=== PATIENT | male | born 1960 | race Caucasian/White ===

== ENCOUNTER → 2017-04-25 16:38 | Outpatient (CLI) | payer OTHER, SELFPAY ==
--- NOTE | 2017-04-25 16:47 | CT_ITS ---
STUDY: LOW DOSE CT LUNG CANCER SCREENING REASON FOR EXAM: Male, 56 years old. 40 year history of tobacco abuse. RADIATION DOSAGE (If Supplied By Facility): CTDIvol = ( 3.02 ) mGy, DLP = ( 115.88 ) mGycm TECHNIQUE: No contrast was administered. Low dose technique was utilized (average mAS-38 and kVp 120). 1.25 mm axial source images with a slice interval of 1.25-mm were reconstructed in lung windows. 2.5 mm axial source images with a slice interval of 2.5-mm were reconstructed in lung windows. 5.0 mm axial source images with a slice interval of 5.0-mm were reconstructed in soft tissue windows. Nodule measured using lung windows on PACS and/or independent workstation with automated measurement of minimum and maximum diameter. Nodule measurement reported as average diameter rounded to the nearest whole number. Growth is defined as an increase ins size of greater than 1.5 mm. COMPARISON: None. NODULES: Nodule #: 1 Density: Solid Lung location: Right upper lobe: 1 cm from pleura Location in series: Series Number: 2 Image: 85 Size - D1 x D2 mm: 3 x 3 mm: 3 mm average diameter Margin: Smooth Shape: Round Calcification: No Fat: No Temporal comparison: None Total lung nodules (excluding granulomas): 1 Emphysema: There is minimal emphysematous changes of the lungs. Endobronchial lesion: None Aorta: There is minimal atherosclerotic changes of the thoracic aorta without aneurysm. Coronary arteries: There are coronary artery calcifications. Heart: Normal in size. Pulmonary artery: Normal Mediastinal nodes: Other chest and abdominal findings: There are degenerative changes of the thoracic spine. CT/Low Dose CT Lung Screening IMPRESSION: Lung-RADS category 2 - Continue annual screening with LDCT in 12 months. IMPORTANT NOTES FOR USE: ACR Lung-RADS Version 1.0 Assessment Categories Release Date: June 21, 2013 Category: Coded 0-4 bases on nodule(s) with highest degree of suspicion. Negative screen is defined as categories 1 and 2; a positive screen is defined as categories 3 and 4. Category 3 and 4A nodules that are unchanged on interval CT should be coded as category 2, and individuals returned to screening in 12 months. Category 4X: Category 3 or 4 nodules with additional imaging findings that increase the suspicion of lung cancer, such as spiculation, GGN that doubles in size in 1 year, enlarged lymph notes, etc. Category Modifiers: S (significant finding unrelated to lung cancer) and C (prior history of treated lung cancer) may be added to the 0-4 Lung-RADS Electronically Signed: Mikael Patino DO at 17:18 EST Tel [phone], Service support ,
== END ==
PROVIDERS: Family Provider Family Medicine; PCP Family Medicine; Visit Provider Family Medicine
DX: Z12.2 Encounter for screening for malignant neoplasm of respiratory organs (principal); Z72.0 Tobacco use; Z87.891 Personal history of nicotine dependence
CPT/HCPCS: G0297

== ENCOUNTER → 2018-05-08 16:13 | Outpatient (CLI) | payer OTHER, SELFPAY ==
--- NOTE | 2018-05-08 16:16 | CT_ITS ---
STUDY: CT CHEST WITHOUT CONTRAST- LOW DOSE SCREENING PROTOCOL REASON FOR EXAM: Male, 57 years old. Current smoker. 40 pack per year history. No current symptoms of lung cancer or pulmonary infection. Shared decision-making with referring PCP documented in patient's record. RADIATION DOSAGE (If Supplied By Facility): CTDIvol = ( 3.02 ) mGy, DLP = ( 124.93 ) mGycm TECHNIQUE: Low dose screening CT examination performed from the base of the neck to the upper abdomen. Sagittal and coronal reformatted images performed. Sagittal and coronal MIP images provided. The measurements provided are average, rounded measurements per ACR guidelines. Individualized dose optimization techniques were used for this CT. COMPARISON: 04/25/2017 FINDINGS: Minimal emphysematous changes of the upper lung mims. 3 mm noncalcified nodule of the right upper lobe with smooth margins stable since the prior study. No new pulmonary nodule detected. No localized groundglass opacity. Partially calcified pleural thickening along the posterior edge of the right major fissure is stable since the prior study, most typically postinflammatory. There is no demonstrated pleural abnormality. Normal heart and pericardium. There are calcifications of the coronary arteries. Normal mediastinum. Normal hilar regions. Normal unenhanced pulmonary arteries. There is mild atherosclerosis of the thoracic aorta. There are multi-level degenerative changes of the thoracic spine. Similar mild wedge compression of T4. Anterolisthesis of C7-T1 is partially visualized, stable There is no demonstrated abnormality of the visualized upper abdomen. CT/Low Dose CT Lung Screening IMPRESSION: 1. No significant indeterminate incidental findings requiring additional imaging. 2. Incidental findings include minimal emphysematous changes, thoracic spondylosis, atherosclerosis including coronary arteries, stable T4 compression deformity (chronic), probable degenerative anterolisthesis of T7-T1. ASSESSMENT CATEGORY: LungRADS 2 - Benign Appearance or Behavior. Stable 3 mm noncalcified nodule in the right upper lobe. Continue annual screening with LDCT in 12 months, per established ACR guidelines. IMPORTANT NOTES FOR USE: ACR Lung-RADS Version 1.0 Assessment Categories Release Date: June 21, 2013 Category: Coded 0-4 bases on nodule(s) with highest degree of suspicion. Negative screen is defined as categories 1 and 2; a positive screen is defined as categories 3 and 4. Category 3 and 4A nodules that are unchanged on interval CT should be coded as category 2, and individuals returned to screening in 12 months. Category 4X: Category 3 or 4 nodules with additional imaging findings that increase the suspicion of lung cancer, such as spiculation, GGN that doubles in size in 1 year, enlarged lymph notes, etc. Category Modifiers: S (significant finding unrelated to lung cancer) and C (prior history of treated lung cancer) may be added to the 0-4 Lung-RADS Electronically Signed: Brad Fonseca MD at 15:23 EDT , Service support ,
== END ==
PROVIDERS: Family Provider Family Medicine; PCP Family Medicine; Referring Provider Family Medicine; Visit Provider Family Medicine
DX: R91.1 Solitary pulmonary nodule (principal); Z12.2 Encounter for screening for malignant neoplasm of respiratory organs
CPT/HCPCS: G0297

== ENCOUNTER 2018-07-20 19:34 | Emergency (ER) | payer OTHER, SELFPAY ==
[2018-07-20 19:34] VITALS: BP 161/97; PULSE 107; RESP 18; TEMP 37; O2SAT 95; BMI 23.7
--- NOTE | 2018-07-20 19:48 | ED.VISSUMM ---
- ER Visit Summary Date of Service: 07/20/18 Chief Complaint: Rectal pain History of Present Illness: The patient is a [address] Tavarez. He reports he has rectal pain that began 3 days ago. Is a dull pain is 10 to 10 hours through 10 currently. Is worsened by movement or sitting down. Is relieved by nothing. He states he has been nausea. No vomiting. No diarrhea. His last problem was today. No melena or hematochezia. No dysuria or frequency. Physical Examination: Vitals: Stable. Afebrile. General: Well-nourished and well-developed. Head: Normocephalic atraumatic. Neck: Supple, no lymphadenopathy. No JVD. Nontender. Cardiovascular: Regular rate and rhythm. No murmurs. Respiratory: No respiratory distress. Clear to auscultation bilaterally. Abdominal: Soft, nontender, nondistended, normal bowel sounds. No guarding, rebound, or peritoneal signs. Rectal: External hemorrhoids at 6:00 that do appear inflamed, but are not thrombosed. Back: Nontender. Extremities: Nontender, no edema. Skin: Normal color, no rash. Neurologic: Alert and oriented ?3. Cranial nerves II through XII are intact. Normal strength and sensation. Psych: Normal affect. Emergency Department Course and Treatment: Patient was given a dose of morphine IM and Zofran p.o. Treatment Plan: Patient will be discharged on hydrocortisone/lidocaine cream. Given prescription for [place] and Colace. Instructed to follow-up with Dr. Ortega in 3 to 5 days if not improving. Return to the emergency department for any worsening symptoms. Disposition: To home in improved and stable condition. Impression: 1. External hemorrhoids. This note was generated with [employer] dictation software. It may contain incorrect words, spelling, and punctuation that were not noted in review of the chart prior to signing ED Disposition - Plan for ED Patient: Disposition: Home or Assisted Living Instructions: ED Hemorrhoids Prescriptions: Hydrocodone Bitart/Apap 5-325 [[place] 5MG-325MG] 1 tablet PO Q4H PRN PRN 2 Days #10 tablet PRN Reason: Pain Docusate Sodium [Colace] 100 mg PO DAILY #20 capsule Lidocaine/Hydrocortisone AC [Lidocaine-Hc 3-0.5% Cream] 1 disk TP TID #1 tube Referrals: Jordan Ortega MD [STAFF PHYSICIAN] - 1-2 Days if not improving
[2018-07-20] MEDS: Ondansetron ODT 4 MG Tablet PO (19:52)
[2018-07-20] MEDS: morphine 8 MG/ML Syringe IM (19:52)
--- NOTE | 2018-07-20 19:55 | ED.DCSUM_ITS ---
- ER Visit Summary Date of Service: 07/20/18 Chief Complaint: Rectal pain History of Present Illness: The patient is a [address] Tavarez. He reports he has rectal pain that began 3 days ago. Is a dull pain is 10 to 10 hours through 10 currently. Is worsened by movement or sitting down. Is relieved by nothing. He states he has been nausea. No vomiting. No diarrhea. His last problem was today. No melena or hematochezia. No dysuria or frequency. Physical Examination: Vitals: Stable. Afebrile. General: Well-nourished and well-developed. Head: Normocephalic atraumatic. Neck: Supple, no lymphadenopathy. No JVD. Nontender. Cardiovascular: Regular rate and rhythm. No murmurs. Respiratory: No respiratory distress. Clear to auscultation bilaterally. Abdominal: Soft, nontender, nondistended, normal bowel sounds. No guarding, rebound, or peritoneal signs. Rectal: External hemorrhoids at 6:00 that do appear inflamed, but are not thrombosed. Back: Nontender. Extremities: Nontender, no edema. Skin: Normal color, no rash. Neurologic: Alert and oriented ?3. Cranial nerves II through XII are intact. Normal strength and sensation. Psych: Normal affect. Emergency Department Course and Treatment: Patient was given a dose of morphine IM and Zofran p.o. Treatment Plan: Patient will be discharged on hydrocortisone/lidocaine cream. Given prescription for [place] and Colace. Instructed to follow-up with Dr. Ortega in 3 to 5 days if not improving. Return to the emergency department for any worsening symptoms. Disposition: To home in improved and stable condition. Impression: 1. External hemorrhoids. This note was generated with [employer] dictation software. It may contain incorrect words, spelling, and punctuation that were not noted in review of the chart prior to signing ED Disposition - Plan for ED Patient: Disposition: Home or Assisted Living Instructions: ED Hemorrhoids Prescriptions: Hydrocodone Bitart/Apap 5-325 [[place] 5MG-325MG] 1 tablet PO Q4H PRN PRN 2 Days #10 tablet PRN Reason: Pain Docusate Sodium [Colace] 100 mg PO DAILY #20 capsule Lidocaine/Hydrocortisone AC [Lidocaine-Hc 3-0.5% Cream] 1 disk TP TID #1 tube Referrals: Jordan Ortega MD [STAFF PHYSICIAN] - 1-2 Days if not improving
== END 2018-07-20 20:12 | disposition home or self-care (01) ==
LOC: ED 20:03
PROVIDERS: Emergency Provider Emergency Medicine; Family Provider Family Medicine; PCP Family Medicine
DX: K64.4 Residual hemorrhoidal skin tags (principal); J44.9 Chronic obstructive pulmonary disease, unspecified; Z72.0 Tobacco use
CPT/HCPCS: 96372; 99283

== ENCOUNTER → 2019-10-11 15:40 | Outpatient (CLI) | payer OTHER, SELFPAY ==
[2018-07-23 15:35] VITALS: BMI 23.7
--- NOTE | 2019-10-11 15:44 | CT_ITS ---
STUDY: LOW DOSE CT LUNG CANCER SCREENING REASON FOR EXAM: Male, 59 years old. TOBACCO ABUSE -- +SMOKER 1PPD X44 YEARS, CHRONIC COUGH -- +HTN,COPD RADIATION DOSAGE (If Supplied By Facility): CTDIvol = ( 3.02 ) mGy, DLP = ( 107.59 ) mGycm TECHNIQUE: No contrast was administered. Low dose technique was utilized (average mAS-38 and kVp 120). 1.25 mm axial source images with a slice interval of 1.25-mm were reconstructed in lung windows. 2.5 mm axial source images with a slice interval of 2.5-mm were reconstructed in lung windows. 5.0 mm axial source images with a slice interval of 5.0-mm were reconstructed in soft tissue windows. Nodule measured using lung windows on PACS and/or independent workstation with automated measurement of minimum and maximum diameter. Nodule measurement reported as average diameter rounded to the nearest whole number. Growth is defined as an increase ins size of greater than 1.5 mm. COMPARISON: 05/08/2018 NODULES: Lung windows show mild underlying emphysema, no organized infiltrate, groundglass opacifications, suspicious noncalcified mass or nodule. There are calcified coronary vessels. Stable pleural calcifications. Degenerative bony changes Overall, no significant interval change since the previous study. CT/Low Dose CT Lung Screening IMPRESSION: Lung-RADS category 2 - Continue annual screening with LDCT in 12 months. IMPORTANT NOTES FOR USE: ACR Lung-RADS Version 1.0 Assessment Categories Release Date: June 21, 2013 Category: Coded 0-4 bases on nodule(s) with highest degree of suspicion. Negative screen is defined as categories 1 and 2; a positive screen is defined as categories 3 and 4. Category 3 and 4A nodules that are unchanged on interval CT should be coded as category 2, and individuals returned to screening in 12 months. Category 4X: Category 3 or 4 nodules with additional imaging findings that increase the suspicion of lung cancer, such as spiculation, GGN that doubles in size in 1 year, enlarged lymph notes, etc. Category Modifiers: S (significant finding unrelated to lung cancer) and C (prior history of treated lung cancer) may be added to the 0-4 Lung-RADS Electronically Signed: Luca Rodriguez MD at 16:25 EDT , Service support ,
== END ==
PROVIDERS: PCP Family Medicine; Referring Provider Family Medicine; Visit Provider Family Medicine
DX: Z72.0 Tobacco use (principal)
CPT/HCPCS: G0297

== ENCOUNTER → 2020-05-30 10:40 | Outpatient (CLI) | payer OTHER, SELFPAY ==
[2018-07-23 15:35] VITALS: BMI 23.7
[2020-05-30 12:10] LABS: Hematocrit 47.6 % (40-54); Hemoglobin 16.2 g/dL (13.0-16.5); Mean Corpuscular Hgb 31.4 pg (27.0-32.0); Mean Corpuscular Volume 92.2 fL (80-94); Mean Platelet Vol. 8.4 fl (6.2-12.0); Platelet Count 413 K/mm3 (150-450); RBC Distribution Width CV 11.9 % (11.6-14.6); RBC Distribution Width SD 40.7 fl (35.1-43.9); Red Blood Count 5.16 M/mm3 (4.6-6.2); White Blood Count 5.4 K/mm3 (4.4-11.0)
[2020-05-30 12:26] LABS: Anion Gap 4 (5-15); BUN 5 mg/dL (7-18); BUN/Creat Ratio 6.9 RATIO (10-20); Calcium,Total 9.1 mg/dL (8.5-10.1); Chloride 95 mmol/L (98-107); Cholesterol 215 mg/dL (200); Creatinine, Serum 0.72 mg/dL (0.70-1.30); EST Glomerular Filtration Rate 119 mL/min (>60); Est Glom Filt Rate - Afr Amer 144 mL/min (>60); Glucose 87 mg/dL (74-106); High Density Lipoprotein 98 mg/dL; PSA,Total - Annual Screen 0.53 ng/mL (0.00-4.00); Potassium 4.6 mmol/L (3.5-5.1); Sodium Level 128 mmol/L (136-145); Triglycerides 72 mg/dL; Very Low Density Lipoprotein 14 mg/dL (5-40)
== END ==
PROVIDERS: PCP Family Medicine; Visit Provider Family Medicine
DX: I10 Essential (primary) hypertension (principal); N40.0 Benign prostatic hyperplasia without lower urinary tract symptoms; J44.9 Chronic obstructive pulmonary disease, unspecified
CPT/HCPCS: 36415; 80048; 80061; 84153; 85027; G0103

== ENCOUNTER 2020-06-20 19:35 | Emergency (ER) | payer OTHER, SELFPAY ==
[2018-07-23 15:35] VITALS: BMI 23.7
[2020-06-20 19:36] VITALS: BP 157/106; PULSE 100; PULSE 95; RESP 16; RESP 36; TEMP 36.7; O2SAT 97; O2SAT 98; BMI 22.2
--- NOTE | 2020-06-20 19:45 | EDS_ITS ---
HPI History of Present Illness Chief Complaint: Allergic Reaction Detail of Chief Complaint: Right long finger with wheezing and itching. Informant: patient Onset/Context/Timing Onset: Today and Hours Timing: Continuous Quality: Patient denies any tongue or lip swelling. Quality - All: wheezing Current Severity: Mild Maximum Severity: Mild Narrative Narrative: COPD and hypertension. 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 He was stung on his right long finger about an hour ago. Said he did have some wheezing develop and itching. He denies any swelling of his lips or tongue. He has never had a significant reaction to a bee sting or any other prior anaphylactic reaction. Prior similar symptoms: No Recent Illness/Hospitalization: No [facility] Medical History Arthritis COPD (chronic obstructive pulmonary disease) Hemorrhoids Hypertension Home Medications docusate sodium 100 mg PO DAILY #20 cap 07/20/18 [Rx Last Taken Unknown] lidocaine HCl-hydrocortison ac 1 disk TP TID #1 tube 07/20/18 [Rx Last Taken Unknown] albuterol sulfate 90 mcg/actuation aerosol inhaler 1 puff INHALATION Q6H PRN 07/23/18 [History Last Taken Unknown] fluticasone 100 mcg-salmeterol 50 mcg/dose blistr powdr for inhalation 1 puff INHALATION BID 07/23/18 [History Last Taken Unknown] losartan 25 mg tablet 25 mg PO DAILY 07/23/18 [History Last Taken Unknown] tiotropium bromide 1.25 mcg/actuation mist for inhalation 2 puff INHALATION DAILY 07/23/18 [History Last Taken Unknown] prednisone 40 mg PO DAILY 5 Days #10 tab 06/20/20 [Rx Last Taken Unknown] Allergy/AdvReac Type Severity Reaction Status Date / Time No Known Allergies Allergy Verified 07/23/18 15:34 Family History Mother Arthritis Father Diabetes Heart disease Hypertension Surgical History Hx of appendectomy Hx of colonoscopy Hx of vasectomy Social History Smoking Status: Current every day smoker second hand exposure: Yes alcohol intake: current alcohol intake frequency: 3 or more drinks per day substance use type: does not use caffeine: Yes what type of physical activity do you participate in: none frequency: does not exercise ROS ROS ED Constitutional Constitutional ED: Reports systems reviewed and no addt'l complaints, except as documented Eyes Eyes: Reports systems reviewed and no addt'l complaints, except as documented ENT ENT ED: Reports systems reviewed and no addt'l complaints, except as documented Cardiovascular Cardiovascular: Reports systems reviewed and no addt'l complaints, except as documented Respiratory/Chest Respiratory/Chest: Reports systems reviewed and no addt'l complaints, except as documented Gastrointestinal Gastrointestinal: Reports systems reviewed and no addt'l complaints, except as documented Genitourinary Genitourinary ED: Reports systems reviewed and no addt'l complaints, except as documented Musculoskeletal Musculoskeletal: Reports systems reviewed and no addt'l complaints, except as documented Integumentary Reports systems reviewed and no addt'l complaints, except as documented Neurologic Neurologic: Reports systems reviewed and no addt'l complaints, except as documented Psychiatric Psychiatric: Reports systems reviewed and no addt'l complaints, except as documented Endocrine Endocrinology: Reports systems reviewed and no addt'l complaints, except as documented Hematologic/Lymphatic Hematologic/Lymphatic: Reports systems reviewed and no addt'l complaints, except as documented Allergic/Immunologic Allergic/Immunologic ED: Reports systems reviewed and no addt'l complaints, except as documented EXAM Physical Exam Narrative Exam Narrative: Distress. Vital signs are stable afebrile. Pulse ox 97% no hypoxia. HEENT exam unremarkable. No swelling of lips or tongue. Neck unremarkable. Lungs few scattered expiratory wheezes bilaterally. Heart regular rhythm no murmur. Rate about 90. Abdomen soft nontender. Patient moving all 4 extremities. Neurovascular intact. No edema. Skin no rashes. Back nontender. Neurologically is awake and alert with no focal motor deficits. Const Vital Signs: 06/20/20 19:36 06/20/20 20:03 Temperature 98.1 F Temperature Source Oral Pulse Rate 95 99 Respiratory Rate 16 18 Blood Pressure 157/106 H Blood Pressure Mean 123 Pulse Ox 97 Oxygen Delivery Method Room Air Positive well nourished General Appearance ED: active, cooperative and comfortable Orientation / Consciousness: awake, oriented to person, oriented to place and oriented to time Exam Limitations: no limitations HEENT Reports normocephalic, head/scalp atraumatic and moist oral mucous membranes normocephalic, normal to inspection and atraumatic Face and Sinus: normal facial exam Nose: external nose normal Mouth ED: Yes oral and palatal mucosa normal, Yes lips normal, Yes tongue normal, Yes salivary gland normal and Yes moist mucous membranes normal Mouth: oral and palatal mucosa normal, lips normal, tongue normal and salivary gland normal Eyes PERRL, EOMs intact bilaterally and conjunctivae normal Eyelid: eyelids normal Pupil: PERRL Neck full ROM and no lymphadenopathy General: normal visual inspection Lymph Lymphatic: no lymphadenopathy noted Chest Wall inspection of chest normal and palpation of chest normal Resp normal respiratory effort, no retractions and no use of accessory muscles Resp Narrative: Or distressed but expiratory wheezing bilaterally. Effort and Inspection: able to speak in complete sentences Auscultation: wheezes Cardio regular rate, regular rhythm and no rub Rate: regular rate Rhythm: regular rhythm GI normal to inspection, nondistended, normoactive bowel sounds Back/Spine no CVA tenderness Extremity normal to inspection Neuro oriented x3, moves all extremities and no focal motor deficits Motor Exam: strength 5/5 throughout Psych mental status grossly normal Appearance: grossly normal Attitude: calm and engaged Activity / Motor Behavior: appropriate eye contact Speech: normal speech Thought Process: normal thought process Skin General Skin Exam: no breakdown Lesions: no lesions Rashes: no rashes Trauma: no lacerations or abrasions MDM MDM MDM Narrative Medical decision making narrative: Patient with obesity. Currently no reaction. At that time the itching. He is never had a anaphylactic reaction. Currently is doing well. He does have a few wheezes which he states is not his normal breathing. Will be treated with prednisone p.o. and a DuoNeb aerosol treatment. For generalized allergic reaction. Treatment and Re-Evaluation Comments:: Repeat exam patient is doing well at 8:40. Still has mild wheezing. He has no swelling or rash. He feels comfortable being discharged home. I discussed the patient's plan with both he and his daughter. Patient discharged home with prednisone. Benadryl as needed. I also instructed him to stop smoking. Discharge Plan Triage Chief Complaint: Allergic Reaction ED Provider: Andrey Guerrero Dx/Rx/DC Orders Instructions: ED BEE STING General Allergic Rxn Prescriptions: New prednisone 20 mg tablet 40 mg PO DAILY 5 Days Qty: 10 RF: 0 No Action losartan 25 mg tablet 25 mg PO DAILY RF: 0 fluticasone propion-salmeterol [Advair Diskus] 100-50 mcg/dose blister with device 1 puff INHALATION BID RF: 0 Spiriva Respimat 1.25 mcg/actuation mist 2 puff INHALATION DAILY RF: 0 albuterol sulfate 90 mcg/actuation HFA aerosol inhaler 1 puff INHALATION Q6H PRNRF: 0 lidocaine HCl-hydrocortison ac 28.35 GM cream 1 disk TP TID Qty: 1 RF: 0 docusate sodium 100 MG capsule 100 mg PO DAILY Qty: 20 RF: 0 Primary Care Provider: Stone Fortune Referrals: Stone Fortune MD [Primary Care Provider] - As Needed (As Needed.) Activity Restrictions/Additional Instructions: Prednisone sone daily as needed for wheezing or any signs of allergic reaction. Prednisone prescription was electronically sent to your pharmacy. Stop smoking. Ice to the area where you were stung. Disposition Patient Disposition: Home, self care
[2020-06-20] MEDS: predniSONE 20 MG Tablet 60 MG PO (20:00)
[2020-06-20] MEDS: Ipratropium/Albuterol Sulfate 3 ML AMPUL.NEB INHALATION (20:01)
[2020-06-20 20:03] VITALS: PULSE 99; RESP 18
--- NOTE | 2020-06-20 20:05 | EKG12_ITS ---
Test Reason : Blood Pressure : / mmHG Vent. Rate : 089 BPM Atrial Rate : 089 BPM P-R Int : 188 ms QRS Dur : 074 ms QT Int : 346 ms P-R-T Axes : 072 -75 096 degrees QTc Int : 420 ms Normal sinus rhythm Left anterior fascicular block Septal infarct , age undetermined Abnormal ECG Confirmed by SAMMY ACEVES, SAWYER ([id number]), telegraph editor KEVON CHRISTINE ([id number]) on 06/22/2020 9:13:34 AM Referred By: KELLIE Confirmed By:SAWYER CHRISTIANSON MD
[2020-06-20 21:00] VITALS: BP 139/89; PULSE 85; RESP 18; O2SAT 97
== END 2020-06-20 21:00 | disposition home or self-care (01) ==
PROVIDERS: Emergency Provider Emergency Medicine; PCP Family Medicine
DX: T78.40XA Allergy, unspecified, initial encounter (principal); F17.200 Nicotine dependence, unspecified, uncomplicated
CPT/HCPCS: 93005; 94640; 99283

== ENCOUNTER → 2020-07-18 12:23 | Outpatient (CLI) | payer OTHER, SELFPAY ==
[2020-06-20 19:36] VITALS: BMI 22.2
[2020-07-18 16:37] LABS: Anion Gap 8 (5-15); BUN 6 mg/dL (7-18); BUN/Creat Ratio 6.5 RATIO (10-20); Calcium,Total 8.9 mg/dL (8.5-10.1); Chloride 92 mmol/L (98-107); Creatinine, Serum 0.93 mg/dL (0.70-1.30); EST Glomerular Filtration Rate 89 mL/min (>60); Est Glom Filt Rate - Afr Amer 107 mL/min (>60); Glucose 215 mg/dL (74-106); Potassium 4.2 mmol/L (3.5-5.1); Sodium Level 126 mmol/L (136-145); Thyroid Stim Hormone (TSH) 0.63 uIU/mL (0.358-3.74)
[2020-07-18 16:53] LABS: Urine Sodium 39 mmol/L (Not Establ.)
[2020-07-18 18:48] LABS: Osmolality, Urine 433 mOsm/KG
[2020-07-18 18:49] LABS: Osmolality, Serum 273 mOsm/KG (275-295)
== END ==
PROVIDERS: PCP Family Medicine; Referring Provider Family Medicine; Visit Provider Family Medicine
DX: E87.1 Hypo-osmolality and hyponatremia (principal)
CPT/HCPCS: 36415; 80048; 83930; 83935; 84300; 84443

== ENCOUNTER → 2020-10-04 14:57 | Outpatient (CLI) | payer OTHER, SELFPAY ==
[2020-10-04 17:55] LABS: Anion Gap 7 (5-15); BUN 9 mg/dL (7-18); Calcium,Total 9.5 mg/dL (8.5-10.1); Chloride 92 mmol/L (98-107); Creatinine, Serum 0.82 mg/dL (0.70-1.30); EST Glomerular Filtration Rate 102 mL/min (>60); Est Glom Filt Rate - Afr Amer 124 mL/min (>60); Glucose 86 mg/dL (74-106); Potassium 4.2 mmol/L (3.5-5.1); Sodium Level 128 mmol/L (136-145)
[2020-10-04 17:59] LABS: Urine Sodium 47 mmol/L (Not Establ.)
[2020-10-04 19:17] LABS: Osmolality, Serum 273 mOsm/KG (275-295); Osmolality, Urine 246 mOsm/KG
== END ==
PROVIDERS: PCP Family Medicine; Referring Provider Family Medicine; Visit Provider Family Medicine
DX: E87.1 Hypo-osmolality and hyponatremia (principal)
CPT/HCPCS: 36415; 80048; 83930; 83935; 84300

== ENCOUNTER → 2020-10-14 08:35 | Outpatient (CLI) | payer OTHER, SELFPAY ==
--- NOTE | 2020-10-14 08:36 | CT_ITS ---
STUDY: LOW DOSE CT LUNG CANCER SCREENING REASON FOR EXAM: Male, 60 years old. 40 year smoker, 1 pack per day RADIATION DOSAGE (If Supplied By Facility): CTDIvol = ( 3.02 ) mGy, DLP = ( 110.61 ) mGycm TECHNIQUE: No contrast was administered. Low dose technique was utilized (average mAS-38 and kVp 120). 1.25 mm axial source images with a slice interval of 1.25-mm were reconstructed in lung windows. 2.5 mm axial source images with a slice interval of 2.5-mm were reconstructed in lung windows. 5.0 mm axial source images with a slice interval of 5.0-mm were reconstructed in soft tissue windows. Nodule measured using lung windows on PACS and/or independent workstation with automated measurement of minimum and maximum diameter. Nodule measurement reported as average diameter rounded to the nearest whole number. Growth is defined as an increase ins size of greater than 1.5 mm. COMPARISON: 10/11/2019 FINDINGS: Lung windows show underlying emphysema with bleb formation in the apices. No organized infiltrate, or suspicious groundglass opacifications. No suspicious noncalcified mass or nodule. There is a more pronounced area of bronchiectatic change in the right upper lobe on axial images 96 through 109. No pleural or pericardial effusions. Bony structures show degenerative change CT/Low Dose CT Lung Screening IMPRESSION: Lung-RADS category 2 - Continue annual screening with LDCT in 12 months. IMPORTANT NOTES FOR USE: ACR Lung-RADS Version 1.1 Assessment Categories Release Date: 2018 Category: Coded 0-4 bases on nodule(s) with highest degree of suspicion. Negative screen is defined as categories 1 and 2; a positive screen is defined as categories 3 and 4. Category 3 and 4A nodules that are unchanged on interval CT should be coded as category 2, and individuals returned to screening in 12 months. Category 4X: Category 3 or 4 nodules with additional imaging findings that increase the suspicion of lung cancer, such as spiculation, GGN that doubles in size in 1 year, enlarged lymph notes, etc. Category Modifiers: S (significant finding unrelated to lung cancer) Electronically Signed: Luca Rodriguez MD at 9:43 EDT , Service support ,
== END ==
PROVIDERS: PCP Family Medicine; Referring Provider Family Medicine; Visit Provider Family Medicine
DX: Z72.0 Tobacco use (principal)
CPT/HCPCS: 71271

== ENCOUNTER → 2020-12-29 10:41 | Outpatient (CLI) | payer OTHER, SELFPAY ==
[2020-12-29 13:29] LABS: Anion Gap 9 (5-15); BUN 7 mg/dL (7-18); BUN/Creat Ratio 9.7 RATIO (10-20); Calcium,Total 8.8 mg/dL (8.5-10.1); Chloride 94 mmol/L (98-107); Creatinine, Serum 0.72 mg/dL (0.70-1.30); EST Glomerular Filtration Rate 119 mL/min (>60); Est Glom Filt Rate - Afr Amer 144 mL/min (>60); Glucose 62 mg/dL (74-106); Potassium 4.2 mmol/L (3.5-5.1); Sodium Level 131 mmol/L (136-145)
== END ==
PROVIDERS: PCP Family Medicine; Referring Provider Family Medicine; Visit Provider Family Medicine
DX: R60.9 Edema, unspecified (principal)
CPT/HCPCS: 36415; 80048; 82533

== ENCOUNTER → 2021-07-10 | Outpatient (CLI) | payer OTHER, SELFPAY ==
--- NOTE | 2021-07-10 16:00 | BD_ITS ---
STUDY: DUAL ENERGY X-RAY ABSORPTIOMETRY / DXA REASON FOR EXAM: Male, 60 years old. S22.000A TECHNIQUE: Bone Mineral Density (BMD) measurements of lumbar spine and bilateral hips were obtained. COMPARISON: None. FINDINGS: Lumbar Spine (L1-L4): g/cm2 (1.144) / T-score (0.8) / Z-score (1.4) Findings are suggestive of normal bone density with a low fracture risk. Left Femur Total: g/cm2 (0.884) / T-score (-1.0) / Z-score (-0.5) Left Femoral Neck: g/cm2 (0.724) / T-score (-1.5) / Z-score (-0.6) Right Femur Total: g/cm2 (0.856) / T-score (-1.2) / Z-score (-0.7) Right Femoral Neck: g/cm2 (0.673) / T-score (-1.9) / Z-score (-1.0) BD/Dexa Bone Density Study IMPRESSION: The patient is considered osteopenic as outlined below according to World Johann Organization (WHO) criteria with a moderate fracture risk. Reference Information: The T-score is the number of standard deviations above or below the standard which is normal for young adults at their peak bone mineral density. The World Health Organization (WHO) interprets the T-scores as follows: Above -1 Normal bone density Between -1 and -2.5 Osteopenia Equal to / or below -2.5 Osteoporosis As a practical clinical guideline, osteopenia may be graded as follows: Mild -1 through -1.5 Moderate -1.6 through -2.0 Severe -2.1 through -2.4 The Z-score is the number of standard deviations above or below age-matched controls. A Z-score of less than -1.5 would be considered abnormal. References: 1. NIH Osteoporosis and Related Bone Diseases www osteo.org 2. International Society for Clinical Densitometry www iscd.org 3. National Osteoporosis Foundation www nof.org Electronically Signed: Star Apodaca MD at 15:16 EDT ,
== END | disposition home or self-care (01) ==
LOC: OPBD 15:54
PROVIDERS: PCP Family Medicine; Visit Provider Family Medicine
DX: S22.000A Wedge compression fracture of unspecified thoracic vertebra, initial encounter for closed fracture (principal)
CPT/HCPCS: 77080

== ENCOUNTER → 2021-08-21 | Outpatient (CLI) | payer OTHER, SELFPAY ==
[2021-08-21 18:47] LABS: Anion Gap 7 (5-15); BUN 13 mg/dL (7-18); BUN/Creat Ratio 16.6 RATIO (10-20); Calcium,Total 9.3 mg/dL (8.5-10.1); Chloride 96 mmol/L (98-107); Cholesterol 194 mg/dL (200); Creatinine, Serum 0.78 mg/dL (0.70-1.30); EST Glomerular Filtration Rate 108 mL/min (>60); Est Glom Filt Rate - Afr Amer 130 mL/min (>60); Glucose 126 mg/dL (74-106); High Density Lipoprotein 80 mg/dL; PSA,Total - Annual Screen 0.44 ng/mL (0.00-4.00); Potassium 4.3 mmol/L (3.5-5.1); Sodium Level 131 mmol/L (136-145); Triglycerides 107 mg/dL; Very Low Density Lipoprotein 21 mg/dL (5-40)
[2021-08-21 18:53] LABS: Vitamin D,25 Hydroxy 27.3 ng/mL
== END | disposition home or self-care (01) ==
LOC: MTLAB 15:31
PROVIDERS: PCP Family Medicine; Referring Provider Family Medicine; Visit Provider Family Medicine
DX: E87.1 Hypo-osmolality and hyponatremia (principal); I10 Essential (primary) hypertension
CPT/HCPCS: 36415; 80048; 80061; 82306; 84153; G0103

== ENCOUNTER 2021-09-24 03:26 | Emergency (ER) | payer OTHER, SELFPAY ==
[2021-09-24 03:27] VITALS: BP 174/92; PULSE 82; RESP 20; TEMP 36.1; O2SAT 95; BMI 22.4
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
--- NOTE | 2021-09-24 03:50 | RAD_ITS ---
STUDY: X-RAY - LUMBAR SPINE REASON FOR EXAM: Male, 60 years old. pain, injury TECHNIQUE: 3 view(s) of the lumbar spine were obtained. COMPARISON: None FINDINGS: There is reversal of the normal lumbar lordosis. There is no substantial scoliosis. Compression fractures of L1 and L2 of undetermined chronicity. There is multilevel endplate spondylosis of the lumbar vertebrae. There is multi-level degenerative disc disease with multi-level disc space narrowing. The soft tissue structures are unremarkable. RAD/Lumbar Spine 2 or 3 Views IMPRESSION: Degenerative changes of the spine, as detailed above. Compression fractures of L1 and L2 of undetermined chronicity. Electronically Signed: Bryan Canales MD at 4:32 EDT ,
[2021-09-24] MEDS: Orphenadrine 60 MG/2 ML Ampul IM (03:57)
[2021-09-24] MEDS: Ketorolac 30 MG/ML Syringe IM (03:57)
[2021-09-24] MEDS: Morphine 4 MG/ML Syringe IM (03:58)
[2021-09-24 04:56] VITALS: BP 153/90; PULSE 80; RESP 16; O2SAT 96
== END 2021-09-24 04:56 | disposition home or self-care (01) ==
PROVIDERS: Emergency Provider Emergency Medicine; PCP Family Medicine; Visit Provider Emergency Medicine
DX: S32.019A Unspecified fracture of first lumbar vertebra, initial encounter for closed fracture (principal); M46.1 Sacroiliitis, not elsewhere classified; J44.9 Chronic obstructive pulmonary disease, unspecified; M54.50 Low back pain, unspecified; I10 Essential (primary) hypertension; F17.210 Nicotine dependence, cigarettes, uncomplicated; Z79.899 Other long term (current) drug therapy
CPT/HCPCS: 72100; 96372; 99282

== ENCOUNTER 2021-11-05 07:27 | Inpatient (IN) | payer OTHER, SELFPAY ==
[2021-11-05] VITALS (17 sets, daily range): BP systolic 143–163; BP diastolic 84–100; PULSE 93–122; RESP 16–24; TEMP 35.9–37.2; O2SAT 89–96; BMI 22.2; BMI 24.6
--- NOTE | 2021-11-05 07:29 | ED.RN ---
pt sats 89% on ra after walking in to ed. withing few minutes recovered to 93%
--- NOTE | 2021-11-05 08:02 | EKG12_ITS ---
Test Reason : SOB Blood Pressure : / mmHG Vent. Rate : 097 BPM Atrial Rate : 097 BPM P-R Int : 210 ms QRS Dur : 078 ms QT Int : 334 ms P-R-T Axes : 083 -33 072 degrees QTc Int : 424 ms Sinus rhythm with 1st degree A-V block Left axis deviation Anteroseptal infarct , age undetermined Abnormal ECG Confirmed by SAMMY ACEVES, SAWYER ([id number]), video news editor KEVON CHRISTINE ([id number]) on 11/07/2021 8:37:07 AM Referred By: Confirmed By:SAWYER CHRISTIANSON MD
[2021-11-05] MEDS: 0.9% Normal Saline 1,000 ML 999 ML IV (08:15)
[2021-11-05] MEDS: MethylPREDNISolone 125 MG/2 ML Vial IV (08:15)
[2021-11-05] MEDS: Acetaminophen 500 MG Tablet PO (08:18)
--- NOTE | 2021-11-05 08:22 | EDS_ITS ---
HPI History of Present Illness Chief Complaint: Shortness of Breath Informant: patient Narrative Narrative: Patient is a 7-year-old male with history of COPD and hypertension presenting with worsening shortness of breath since yesterday. He states he started having mild symptoms 2 days ago. He woke up this morning and felt anxious and that he could not breathe. He did did a home albuterol treatment with no improvement. He states he has a history of pneumonia and this feels like this. He has had a new cough which is productive of yellow and green sputum. Denies any fever but he notes that he felt warm yesterday. Denies any swelling of his legs, history of DVT or PE. Has had multiple sick contacts at home that sound like they have had some type of viral illness. Does not wear home oxygen. No other complaints at this time. [facility] Medical History (Updated 11/05/21 @ 15:[address] Cindy Aguila DO) Alcohol abuse Arthritis COPD (chronic obstructive pulmonary disease) Hemorrhoids Hypertension Home Medications docusate sodium 100 mg capsule 100 mg PO DAILY #20 caps 07/20/18 [Rx Last Taken Unknown] lidocaine 3 %-hydrocortisone 0.5 % topical cream 1 disk TP TID #1 tube 07/20/18 [Rx Last Taken Unknown] albuterol sulfate 90 mcg/actuation aerosol inhaler 1 puff inhalation Q6H PRN SOB 07/23/18 [History Last Taken Unknown] fluticasone 100 mcg-salmeterol 50 mcg/dose blistr powdr for inhalation (Advair Diskus) 1 puff inhalation BID 07/23/18 [History Last Taken Unknown] losartan 25 mg tablet 25 mg PO DAILY 07/23/18 [History Last Taken Unknown] tiotropium bromide 1.25 mcg/actuation mist for inhalation (Spiriva Respimat) 2 puff inhalation DAILY 07/23/18 [History Last Taken Unknown] hydrocodone-acetaminophen 5-325mg 5mg-325mg 1 tab PO Q4H PRN PRN Pain 2 days #10 TABLETS 09/24/21 [Rx Last Taken Unknown] Allergy/AdvReac Type Severity Reaction Status Date / Time No Known Allergies Allergy Verified 11/05/21 07:30 Family History Mother Arthritis Father Diabetes Heart disease Hypertension Surgical History Hx of appendectomy Hx of colonoscopy Hx of vasectomy Social History Smoking Status: Current every day smoker tobacco type: cigarettes second hand exposure: Yes alcohol intake: current alcohol intake frequency: 3 or more drinks per day substance use type: does not use caffeine: Yes what type of physical activity do you participate in: none frequency: does not exercise ROS ROS ED Constitutional Constitutional ED: Denies chills or fever(s) Eyes Eyes: Denies change in vision ENT ENT ED: Denies rhinorrhea or sore throat Cardiovascular Cardiovascular: Denies chest pain or palpitations Respiratory/Chest Respiratory/Chest: Reports cough and dyspnea; Denies dyspnea on exertion Gastrointestinal Gastrointestinal: Denies abdominal pain, diarrhea, nausea or vomiting Genitourinary Genitourinary ED: Denies dysuria Musculoskeletal Musculoskeletal: Denies arthralgias or myalgias Integumentary Denies rash Neurologic Neurologic: Denies headache(s) or weakness Psychiatric Psychiatric: Reports anxiety Hematologic/Lymphatic Hematologic/Lymphatic: Denies easy bleeding or easy bruising EXAM Physical Exam Const Vital Signs: 11/05/21 07:27 11/05/21 07:29 11/05/21 08:13 Temperature 98.6 F Temperature Source Temporal Pulse Rate 120 H Respiratory Rate 24 H Respiratory Effort Short of Breath Respiratory Depth Normal Respiratory Pattern Normal Blood Pressure 163/100 H Blood Pressure Mean 121 Pulse Ox 93 89 Oxygen Delivery Method Room Air Room Air Room Air Oxygen Flow Rate (L/min) 11/05/21 08:41 11/05/21 08:41 11/05/21 09:33 Temperature Temperature Source Pulse Rate 99 93 Respiratory Rate 18 17 Respiratory Effort Respiratory Depth Respiratory Pattern Blood Pressure Blood Pressure Mean Pulse Ox 93 93 Oxygen Delivery Method Room Air Room Air Oxygen Flow Rate (L/min) 11/05/21 10:00 Temperature Temperature Source Pulse Rate 94 Respiratory Rate 16 Respiratory Effort Respiratory Depth Respiratory Pattern Blood Pressure 143/91 H Blood Pressure Mean 108 Pulse Ox 94 Oxygen Delivery Method Nasal Cannula Oxygen Flow Rate (L/min) 2 Positive well nourished and well developed General Appearance ED: well developed and NAD HEENT Reports moist mucous membranes atraumatic Eyes PERRL and EOMs intact bilaterally Neck supple and no meningeal signs Resp Resp Narrative: Pursed lipped breathing, mild tachypnea Auscultation: wheezes expiratory wheezes; Negative for rales or rhonchi Cardio regular rhythm Rate: tachycardic GI non-tender and non-distended Extremity normal to inspection Neuro oriented x3 Speech: speech normal Motor Exam: Negative for general weakness Psych mental status grossly normal Skin no wounds MDM MDM MDM Narrative Medical decision making narrative: Patient is evaluated for increase shortness of breath. Patient appears nontoxic but does have increased work of breathing. He is tachycardic upon arrival and tachypneic. He is 89% on room air when he shows up in triage and with any type of exertion or ambulation drops down to 86% in the emergency room. He is given stacked breathing treatments with no significant improvement and his symptoms however his breath sounds do sound improved. He is given IV Solu-Medrol. He has a leukocytosis of 15.1 which is nonspecific as patient had a dose of steroids yesterday as well. D-dimer is ordered because of his tachycardia which is normal. I suspect his shortness of breath is due to a COPD exacerbation. Chest x-ray to read by myself as well as radiology does not show any acute infarct. Patient is hyponatremic at 126 and is given IV fluids however looks like he has a history of this hyponatremia. Patient be admitted for further respiratory treatment and monitoring. He is agreeable to this plan of care. Lab Data Attestation: I reviewed the patient's lab results. Labs: Laboratory Results - last 24 hr 11/05/21 11/05/21 11/05/21 08:10 08:10 09:50 WBC 15.1 H RBC 4.56 L Hgb 15.0 Hct 41.4 MCV 90.8 MCH 32.9 H MCHC 36.2 H RDW Std Deviation 38.8 RDW Coeff of Pam 11.6 Plt Count 298 MPV 8.2 Immature Gran % (Auto) 0.500 Neut % (Auto) 84.0 H Lymph % (Auto) 4.9 L Jewell % (Auto) 9.9 Eos % (Auto) 0.4 Baso % (Auto) 0.3 Absolute Neuts (auto) 12.7 H Absolute Lymphs (auto) 0.74 L Nucleated RBC % 0 D-Dimer Quant (PE/DVT) 0.39 Sodium 126 L Potassium 3.7 Chloride 90 L Carbon Dioxide 28.0 Anion Gap 8 BUN 6 L Creatinine 0.63 L Estim Creat Clear Calc 124.00 Est GFR (MDRD) Af Amer 168 Est GFR (MDRD) Non-Af 139 BUN/Creatinine Ratio 9.6 L Glucose 123 H Calcium 9.4 Troponin I High Sens 8 Radiography Chest X-Ray - ED: 1 View, Read by ED Physician, Read by Radiologist and No Acute Disease Diagnostic Testing: Clinical Impression(s) from Imaging Studies Chest X-Ray 11/05/21 08:25 IMPRESSION: Hyperinflation. The lungs are clear. Electronically Signed: Star Apodaca MD at 8:47 EDT , Rhythm Strip Rhythm Strip: Sinus Tach Rate: 97 Ectopy: None EKG Initial EKG: Attestation: I personally reviewed and interpreted this EKG as follows: Interpretation: Sinus Rhythm Comments: Normal sinus rhythm at a rate of 97 with first-degree AV block NM interval 210 Normal QRS and QTc Left axis deviation Normal ST segments Discharge Plan Dx/Rx/DC Orders Clinical Impression: COPD exacerbation, Hyponatremia, Hypoxia Disposition Disposition: Acute Care Hospital [facility]
[2021-11-05 08:24] LABS: Absolute Lymphocyte Count 0.74 X10^3/uL (0.83-4.51); Absolute Neutrophil Count 12.7 X10^3/uL (2.0-7.7); Basophil# 0.04 X10^3/uL; Basophil% 0.3 % (0-1); Eosinophil# 0.06 X10^3/uL; Eosinophils% 0.4 % (0-5); Hematocrit 41.4 % (40-54); Lymphocyte # 0.74 X10^3/ul (0.83-4.51); Lymphocyte % 4.9 % (19-41); Mean Corp Hgb Conc 36.2 g/dL (32-36); Mean Corpuscular Hgb 32.9 pg (27.0-32.0); Mean Corpuscular Volume 90.8 fL (80-94); Mean Platelet Vol. 8.2 fl (6.2-12.0); Monocyte% 9.9 % (0-10); NRBC Flagged by Analyzer 0 % (0-5); Neutrophil # 12.71 X10^3/uL (2.7-7.7); Platelet Count 298 K/mm3 (150-450); RBC Distribution Width CV 11.6 % (11.6-14.6); RBC Distribution Width SD 38.8 fl (35.1-43.9); Red Blood Count 4.56 M/mm3 (4.6-6.2); White Blood Count 15.1 K/mm3 (4.4-11.0)
--- NOTE | 2021-11-05 08:25 | RAD_ITS ---
STUDY: X-RAY CHEST REASON FOR EXAM: Male, 61 years old. Sob, cough TECHNIQUE: PA and lateral views of the chest. COMPARISON: Comparison is made with prior study dated 08/29/2016. FINDINGS: EKG electrodes are seen. Hyperinflation. Scattered calcified granulomas. The lungs are clear. There is no demonstrated pleural abnormality. Normal size heart. Normal mediastinum and chilo. Normal visualized pulmonary arteries. Normal visualized aortic arch and descending thoracic aorta. There are degenerative changes of the visualized thoracic spine. Normal visualized ribs, clavicles, and shoulders. There is no demonstrated abnormality of the visualized soft tissue structures of the upper abdomen. RAD/Chest PA and Lateral IMPRESSION: Hyperinflation. The lungs are clear. Electronically Signed: Star Apodaca MD at 8:47 EDT ,
[2021-11-05] MEDS: Ipratropium/Albuterol Sulfate 3 ML AMPUL.NEB INHALATION ×4 (08:29→19:17)
[2021-11-05] MEDS: Albuterol 2.5 MG/3 ML VIAL.NEB. INHALATION (08:29)
[2021-11-05 08:38] LABS: Anion Gap 8 (5-15); BUN 6 mg/dL (7-18); BUN/Creat Ratio 9.6 RATIO (10-20); Calcium,Total 9.4 mg/dL (8.5-10.1); Chloride 90 mmol/L (98-107); Creatinine, Serum 0.63 mg/dL (0.70-1.30); EST Glomerular Filtration Rate 139 mL/min (>60); Est Glom Filt Rate - Afr Amer 168 mL/min (>60); Glucose 123 mg/dL (74-106); Potassium 3.7 mmol/L (3.5-5.1); Sodium Level 126 mmol/L (136-145); Troponin-I HS 8 pg/mL (3.0-78.0)
[2021-11-05 10:32] LABS: D-Dimer Quantitative (DVT/PE) 0.39 FEU/ug/m (0.27-0.49)
--- NOTE | 2021-11-05 13:20 | HP.PCM.HOS_ITS ---
HPI - General General Date of Admission: 11/05/21 HPI Narrative LAUREL OTERO, is a 61 M who presents to the hospital with shortness of breath. He does have a history of COPD and recently started on prednisone, this explains his elevated leukocytosis in the ER. He is not requiring oxygen at rest but he did drop down to the mid 80s with ambulation. Because of this admission was requested. He denies any fevers or chills chest x-ray was unremarkable did not demonstrate pneumonia. COVID test was negative, and respiratory panel is currently pending. He does not follow with pulmonology as an outpatient he does continue to smoke. [facility] Medical History (Updated 11/05/21 @ 13:[address] Jose Ragnel MD) Alcohol abuse Arthritis COPD (chronic obstructive pulmonary disease) Hemorrhoids Hypertension Home Medications docusate sodium 100 mg capsule 100 mg PO DAILY #20 caps 07/20/18 [Rx Last Taken Unknown] lidocaine 3 %-hydrocortisone 0.5 % topical cream 1 disk TP TID #1 tube 07/20/18 [Rx Last Taken Unknown] albuterol sulfate 90 mcg/actuation aerosol inhaler 1 puff inhalation Q6H PRN SOB 07/23/18 [History Last Taken Unknown] fluticasone 100 mcg-salmeterol 50 mcg/dose blistr powdr for inhalation (Advair Diskus) 1 puff inhalation BID 07/23/18 [History Last Taken Unknown] losartan 25 mg tablet 25 mg PO DAILY 07/23/18 [History Last Taken Unknown] tiotropium bromide 1.25 mcg/actuation mist for inhalation (Spiriva Respimat) 2 puff inhalation DAILY 07/23/18 [History Last Taken Unknown] hydrocodone-acetaminophen 5-325mg 5mg-325mg 1 tab PO Q4H PRN PRN Pain 2 days #10 TABLETS 09/24/21 [Rx Last Taken Unknown] Allergy/AdvReac Type Severity Reaction Status Date / Time No Known Allergies Allergy Verified 11/05/21 07:30 Family History Mother Arthritis Father Diabetes Heart disease Hypertension Surgical History Hx of appendectomy Hx of colonoscopy Hx of vasectomy Social History Smoking Status: Current every day smoker tobacco type: cigarettes second hand exposure: Yes alcohol intake: current alcohol intake frequency: 3 or more drinks per day substance use type: does not use caffeine: Yes what type of physical activity do you participate in: none frequency: does not exercise ROS Constitutional Constitutional: Denies chills, fatigue, fever(s) or malaise Eyes Eyes: Denies blurry vision ENT HEENT: Denies headache(s) or nasal discharge Cardiovascular Cardiovascular: Denies chest pain, dyspnea on exertion or syncope Respiratory/Chest Respiratory/Chest: Reports cough, shortness of breath at rest and shortness of breath with exertion Gastrointestinal Gastrointestinal: Denies constipation, diarrhea, nausea or vomiting Genitourinary Genitourinary: Denies dysuria Neurologic Neurologic: Denies focal weakness, numbness or tremor(s) Psychiatric Psychiatric: Denies anxiety or depression Vital Signs Vital Signs Vital Signs: 11/05/21 07:27 11/05/21 07:29 11/05/21 08:13 Temperature 98.6 F Temperature Source Temporal Pulse Rate 120 H Respiratory Rate 24 H Respiratory Effort Short of Breath Respiratory Depth Normal Respiratory Pattern Normal Blood Pressure 163/100 H Blood Pressure Mean 121 Pulse Ox 93 89 Oxygen Delivery Method Room Air Room Air Room Air Oxygen Flow Rate (L/min) 11/05/21 08:41 11/05/21 08:41 11/05/21 09:33 Temperature Temperature Source Pulse Rate 99 93 Respiratory Rate 18 17 Respiratory Effort Respiratory Depth Respiratory Pattern Blood Pressure Blood Pressure Mean Pulse Ox 93 93 Oxygen Delivery Method Room Air Room Air Oxygen Flow Rate (L/min) 11/05/21 10:00 11/05/21 11:00 11/05/21 10:51 Temperature 98.9 F Temperature Source Temporal Pulse Rate 94 94 101 H Respiratory Rate 16 16 Respiratory Effort Respiratory Depth Respiratory Pattern Blood Pressure 143/91 H 143/91 H Blood Pressure Mean 108 108 Pulse Ox 94 93 Oxygen Delivery Method Nasal Cannula Nasal Cannula Oxygen Flow Rate (L/min) 2 2 11/05/21 11:37 11/05/21 11:50 Temperature Temperature Source Pulse Rate 100 103 H Respiratory Rate 16 Respiratory Effort Short of Breath Pursed Lip Respiratory Depth Normal Respiratory Pattern Normal Normal Blood Pressure Blood Pressure Mean Pulse Ox Oxygen Delivery Method Room Air Oxygen Flow Rate (L/min) Weight Weight: 147 lb 14.4 oz Body Mass Index (BMI) 24.6 Physical Exam Narrative General: Alert, Oriented x3, Cooperative, No apparent distress HEENT: Atraumatic, PERRLA, EOMI, Normocephalic Oral: Moist Mucosa Neck: Supple, No JVD Lungs: Diminished, Normal air movement, No rhonchi, wheeze, No rales Cardiovascular: Tachycardic, Regular Rhythm, Normal S1, Normal S2, No murmurs Abdomen: Soft, Non Tender, Non-Distended, No Hepato-splenomegaly Extremities: No edema, Capillary Refill Less than 3 Seconds Skin: No rashes, No breakdown Musculoskeletal: No Tenderness to Palpation of Joints or Extremities Neurological: Cranial nerves II-XII grossly intact, Motor Exam 5/5 strength throughout, Sensory exam intact to light touch and pain Psych/Mental Status: Normal Affect, Appropriate Results Lab / Micro Data Result Diagrams: 11/05/21 08:10 11/05/21 08:10 Labs: Laboratory Results - last 24 hr 11/05/21 08:10: WBC 15.1 H, RBC 4.56 L, Hgb 15.0, Hct 41.4, MCV 90.8, MCH 32.9 H , MCHC 36.2 H, RDW Std Deviation 38.8, RDW Coeff of Pam 11.6, Plt Count 298, MPV 8.2, Immature Gran % (Auto) 0.500, Neut % (Auto) 84.0 H, Lymph % (Auto) 4.9 L, [place] % (Auto) 9.9, Eos % (Auto) 0.4, Baso % (Auto) 0.3, Absolute Neuts (auto) 12.7 H, Absolute Lymphs (auto) 0.74 L, Nucleated RBC % 0 11/05/21 08:10: Sodium 126 L, Potassium 3.7, Chloride 90 L, Carbon Dioxide 28.0, Anion Gap 8, BUN 6 L, Creatinine 0.63 L, Estim Creat Clear Calc 124.00, Est GFR (MDRD) Af Amer 168, Est GFR (MDRD) Non-Af 139, BUN/Creatinine Ratio 9.6 L, Glucose 123 H, Calcium 9.4, Troponin I High Sens 8 11/05/21 09:50: D-Dimer Quant (PE/DVT) 0.39 Micro: Microbiology 11/05/21 08:50 Nasal Secretion SARS-CoV-2 Antigen (Rapid) - Final Radiology Impression Chest X-Ray 11/05/21 08:25 IMPRESSION: Hyperinflation. The lungs are clear. Electronically Signed: Star Apodaca MD at 8:47 EDT , Assessment & Plan Assessment/Plan (1) COPD exacerbation: PLAN: Plan 1. COPD exacerbation with hypoxia/tobacco abuse ? He becomes hypoxic with ambulation ? Continue with Solu-Medrol and breathing treatments ? Was given a dose of doxycycline in the ER, no signs of infection ? We will provide a nicotine patch and discussed cessation 2. HTN ? Blood pressures are stable ? Can continue with his ARB 3. Alcohol use ? Stable denies having ever gone through withdrawal ? We will place him on the [facility] protocol and monitor. DVT: Lovenox Charges/Coding Visit Charges Inpatient E&M: 18229 Init Hosp L2
[2021-11-05] MEDS: 0.9% Saline Lock 10 ML Syringe IV ×2 (14:08→21:42)
[2021-11-05] MEDS: LORazepam 2 MG/ML Syringe 1 MG IV (15:30)
[2021-11-05] MEDS: LORazepam 2 MG/ML Syringe IV (21:43)
[2021-11-05] MEDS: MELATONIN 3 MG TABLET PO (23:31)
[2021-11-06] VITALS (12 sets, daily range): BP systolic 138–156; BP diastolic 78–99; PULSE 86–128; RESP 16–24; TEMP 36.6–37.2; O2SAT 91–96
[2021-11-06] MEDS: 0.9% Saline Lock 10 ML Syringe IV ×3 (05:46→22:04)
[2021-11-06] MEDS: Ipratropium/Albuterol Sulfate 3 ML AMPUL.NEB INHALATION ×5 (06:34→23:18)
[2021-11-06 07:00] LABS: Absolute Lymphocyte Count 0.59 X10^3/uL (0.83-4.51); Absolute Neutrophil Count 12.8 X10^3/uL (2.0-7.7); Basophil# 0.01 X10^3/uL; Basophil% 0.1 % (0-1); Hematocrit 40.8 % (40-54); Hemoglobin 14.4 g/dL (13.0-16.5); Lymphocyte # 0.59 X10^3/ul (0.83-4.51); Lymphocyte % 4.2 % (19-41); Mean Corp Hgb Conc 35.3 g/dL (32-36); Mean Corpuscular Volume 93.6 fL (80-94); Mean Platelet Vol. 8.8 fl (6.2-12.0); Monocyte# 0.66 X10^3/uL; Monocyte% 4.7 % (0-10); NRBC Flagged by Analyzer 0 % (0-5); Neutrophil # 12.79 X10^3/uL (2.7-7.7); Neutrophil % 90.4 % (47-70); POSITIVE DIFFERENTIAL YES; Platelet Count 320 K/mm3 (150-450); RBC Distribution Width CV 11.9 % (11.6-14.6); RBC Distribution Width SD 40.8 fl (35.1-43.9); Red Blood Count 4.36 M/mm3 (4.6-6.2); White Blood Count 14.1 K/mm3 (4.4-11.0)
[2021-11-06 07:04] LABS: Differential Indicated SCAN CRITERIA MET
[2021-11-06 07:25] LABS: Differential Comment SCANNED
[2021-11-06 07:36] LABS: Anion Gap 10 (5-15); BUN 10 mg/dL (7-18); BUN/Creat Ratio 16.4 RATIO (10-20); Calcium,Total 8.7 mg/dL (8.5-10.1); Chloride 94 mmol/L (98-107); Creatinine, Serum 0.61 mg/dL (0.70-1.30); EST Glomerular Filtration Rate 143 mL/min (>60); Est Glom Filt Rate - Afr Amer 173 mL/min (>60); Estimated Creatinine Clearance 112.02 ml/min; Glucose 148 mg/dL (74-106); Potassium 3.6 mmol/L (3.5-5.1); Sodium Level 130 mmol/L (136-145)
[2021-11-06] MEDS: Losartan Potassium 25 MG Tablet PO (09:33)
[2021-11-06] MEDS: Enoxaparin 40 MG/0.4 ML Syringe SC (09:33)
--- NOTE | 2021-11-06 10:05 | CASEMGMT ---
WHIT [facility]INS Face to Face with patient for initial transition planning/care coordination assessment. RN CM introduced self and role at [facility]. Patient lying in bed, alert and oriented. Patient willing to participate in assessment and is able to answer all questions appropriately. Care providers, pharmacy, and demographics verified. Patient wishes to discharge home, denies need for home health at this time. Patient states he has no further needs or concerns at this time. CM to follow for discharge planning needs that may arise. PCP: [facility]: Patient states he is getting established with Dr. Kay Preferred Pharmacy: [facility], [facility] at discharge. Insurance: [employer] Prescription Benefit: yes Living Will/HPOA: none LNOK: Living Arrangements: Patient lives with in a 2 story home with bed and bath on first floor. 4-5 steps and railing to enter the home. Patient states he is independent at home. Transportation: self, DME/HHC: Patient denies DME in the home. No previous HHC or SNF. Patient states he has no preferences on DME. Will monitor patient for home oxygen at discharge. Disposition Plan: Patient to discharge home with family support and follow-up plans in place. Cris RUIZ, RN, CM
--- NOTE | 2021-11-06 10:12 | PN.HOSP_ITS ---
Subjective Subjective Doing well, no issues overnight. Still requiring some oxygen. Objective Data Objective Data Vital Signs: Vital Signs Temp Pulse Resp BP Pulse Ox O2 Del Method O2 Flow Rate 98.0 F 103 H 16 147/89 H 93 Nasal Cannula 2 11/06/21 09:00 11/06/21 09:00 11/06/21 09:00 11/06/21 09:00 11/06/21 09:00 11/06/21 09:00 11/06/21 09:00 Oxygen Flow Rate (L/min) 2 Oxygen Delivery Method Nasal Cannula Weight: 147 lb 14.883 oz Body Mass Index (BMI) 24.6 Intake & Output: Intake and Output for Last 24 Hours 11/05/21 11/06/21 11/07/21 03:59 03:59 03:59 Intake Total 2200 / 2200 300 / 300 Balance 2200 / 2200 300 / 300 Lab / Micro Data Result Diagrams: 11/06/21 06:10 11/06/21 06:10 Labs: Laboratory Results - last 24 hr 11/05/21 09:50: D-Dimer Quant (PE/DVT) 0.39 11/06/21 06:10: WBC 14.1 H, RBC 4.36 L, Hgb 14.4, Hct 40.8, MCV 93.6, MCH 33.0 H , MCHC 35.3, RDW Std Deviation 40.8, RDW Coeff of Pam 11.9, Plt Count 320, MPV 8.8, Immature Gran % (Auto) 0.600, Neut % (Auto) 90.4 H, Lymph % (Auto) 4.2 L, [place] % (Auto) 4.7, Eos % (Auto) 0.0, Baso % (Auto) 0.1, Absolute Neuts (auto) 12.8 H, Absolute Lymphs (auto) 0.59 L, Nucleated RBC % 0, Differential Comment SCANNED 11/06/21 06:10: Sodium 130 L, Potassium 3.6, Chloride 94 L, Carbon Dioxide 26.0, Anion Gap 10, BUN 10, Creatinine 0.61 L, Estim Creat Clear Calc 112.02, Est GFR (MDRD) Af Amer 173, Est GFR (MDRD) Non-Af 143, BUN/Creatinine Ratio 16.4, Glucose 148 H, Calcium 8.7 Micro: Microbiology 11/05/21 11:45 Mucosa - Nasopharyngeal Respiratory Panel (PCR) - Final 11/05/21 08:50 Nasal Secretion SARS-CoV-2 Antigen (Rapid) - Final Rhythm Strip Rhythm Strip: Sinus Tach Rate: 97 Ectopy: None Physical Exam Narrative General: Alert, Oriented x3, Cooperative, No apparent distress HEENT: Atraumatic, PERRLA, EOMI, Normocephalic Oral: Moist Mucosa Neck: Supple, No JVD Lungs: Diminished, Normal air movement, No rhonchi, wheeze, No rales Cardiovascular: Tachycardic, Regular Rhythm, Normal S1, Normal S2, No murmurs Abdomen: Soft, Non Tender, Non-Distended, No Hepato-splenomegaly Extremities: No edema, Capillary Refill Less than 3 Seconds Skin: No rashes, No breakdown Musculoskeletal: No Tenderness to Palpation of Joints or Extremities Neurological: Cranial nerves II-XII grossly intact, Motor Exam 5/5 strength throughout, Sensory exam intact to light touch and pain Psych/Mental Status: Normal Affect, Appropriate Assessment & Plan Assessment/Plan (1) COPD exacerbation: PLAN: Plan 1. COPD exacerbation with hypoxia/tobacco abuse ? He becomes hypoxic with ambulation ? Continue with Solu-Medrol and breathing treatments ? He is endorsing some sputum production so we will obtain a sputum culture and started on Levaquin ? Was given a dose of doxycycline in the ER, no signs of infection ? We will provide a nicotine patch and discussed cessation 2. HTN ? Blood pressures are stable ? Can continue with his ARB 3. Alcohol use ? Stable denies having ever gone through withdrawal ? We will place him on the [facility] protocol and monitor. DVT: Lovenox Charges/Coding Visit Charges Inpatient E&M: 34572 Subs Hosp L2
[2021-11-06] MEDS: LORazepam 2 MG/ML Syringe IV ×2 (11:05→19:00)
[2021-11-06] MEDS: levoFLOXacin 750 MG Tablet PO (11:05)
[2021-11-06] MEDS: MELATONIN 3 MG TABLET PO (22:08)
[2021-11-07] VITALS (7 sets, daily range): BP systolic 145–148; BP diastolic 81–98; PULSE 61–110; RESP 16–20; TEMP 36.4–36.7; O2SAT 93–97
[2021-11-07] MEDS: levoFLOXacin 750 MG Tablet PO (05:04)
[2021-11-07] MEDS: 0.9% Saline Lock 10 ML Syringe IV ×2 (05:04→13:05)
--- NOTE | 2021-11-07 06:50 | NURSING ---
Documentation of nurse orientee Lanie reviewed information is accurately entered.
[2021-11-07] MEDS: Ipratropium/Albuterol Sulfate 3 ML AMPUL.NEB INHALATION ×2 (06:56→10:55)
[2021-11-07] MEDS: Enoxaparin 40 MG/0.4 ML Syringe SC (09:12)
[2021-11-07] MEDS: Losartan Potassium 25 MG Tablet PO (09:13)
--- NOTE | 2021-11-07 09:59 | CASEMGMT ---
Pt is independent in room and states no concerns with going home at time of discharge. Pt does not qualify for home oxygen. Pt referred to pt link and provided a pulse ox for d/c. Soy SHERMAN CM
--- NOTE | 2021-11-07 10:20 | ADDICTION ---
Addiction therapist visited pt to discuss alcohol treatment options and resources. Pt appeared receptive to this workers information and became tearful when we discussed his usage.
--- NOTE | 2021-11-07 11:34 | DCINST_ITS ---
Discharge Instructions Diet Discharge Diet: Low fat / Low cholesterol Activity Discharge Activity: Return to Normal Activity Dressing / Incision Call your doctor if you observe: Fever of 101 or Higher, Shortness of breath, Dizziness, Fainting spells, Swelling in the ankles, Chest pain and Increased palpitations (irregular heartbeat) Follow Up Care Test Results: Test results from this visit will be discussed in further detail at your follow- up appointment, if applicable. Discharge Plan Admission Admit Date/Time: 11/05/21 10:51 Attending Provider: Jose Rangel Primary Care Provider: Stone Fortune Discharge Orders/Prescriptions Prescriptions: New levofloxacin 750 mg Tablet 750 mg PO DAILY@0600 Qty: 5 0RF prednisone 20 mg tablet 40 mg PO DAILY Qty: 14 0RF Continued losartan 25 mg tablet 25 mg PO DAILY fluticasone propion-salmeterol [Advair Diskus] 100-50 mcg/dose blister with device 1 puff INHALATION BID Spiriva Respimat 1.25 mcg/actuation mist 2 puff INHALATION DAILY albuterol sulfate 90 mcg/actuation HFA aerosol inhaler 1 puff INHALATION Q6H PRN (Reason: SOB) lidocaine HCl-hydrocortison ac 28.35 GM cream 1 disk TP TID Qty: 1 0RF docusate sodium 100 MG capsule 100 mg PO DAILY Qty: 20 0RF hydrocodone-acetaminophen 1 TABLET tablet 1 tab PO Q4H PRN PRN (Reason: Pain) 2 Days Qty: 10 0RF Referrals / Follow Up: Efren Kay MD [Med Staff - Active Staff] - Within 1 Month Stone Fortune MD [Primary Care Provider] - Within 1 Week Disposition Disposition (needs filled in before D/C Order can be placed): Home, Self Care
--- NOTE | 2021-11-07 11:57 | PHA.DC.MC ---
Pharmacy Service has performed discharge medication reconciliation and counseling for this patient. 1. LEVOFLOXACIN 750MG PO DAILY X 5 DAYS 2. PREDNISONE 40MG PO DAILY X 7 DAYS The patient's discharge medication list was reviewed for discrepancies and discrepancies were resolved. Home Medications albuterol sulfate 90 mcg/actuation aerosol inhaler 1 puff inhalation Q6H PRN SOB 07/23/18 fluticasone 100 mcg-salmeterol 50 mcg/dose blistr powdr for inhalation (Advair Diskus) 1 puff inhalation BID breathing 07/23/18 losartan 25 mg tablet 25 mg PO DAILY blood pressure 07/23/18 tiotropium bromide 1.25 mcg/actuation mist for inhalation (Spiriva Respimat) 2 puff inhalation DAILY breathing 07/23/18 hydrocodone-acetaminophen 5-325mg 5mg-325mg 1 tab PO Q4H PRN PRN Pain 2 days #10 TABLETS 09/24/21 docusate sodium 100 mg capsule 100 mg PO DAILY stool softner 11/07/21 levofloxacin 750 mg tablet 750 mg PO DAILY@0600 #5 tabs 11/07/21 lidocaine 3 %-hydrocortisone 0.5 % topical cream 1 disk TP TID pain 11/07/21 prednisone 20 mg tablet 40 mg PO DAILY #14 tabs 11/07/21 The patient was counseled on the following discharge medications and changes in medications for homegoing were reviewed. The Reason for Use, instructions for use, and potential side effects were reviewed for all new medications. The patient's questions regarding all of their medications were answered. The patient was able to verbally demonstrate an understanding of their discharge medications. Patient counseled by pharmacy sales representativeAuid.
--- NOTE | 2021-11-07 14:25 | DS.PCM_ITS ---
Providers Date of Admission: 11/05/21 Primary Care Physician: Dr. Stone Fortune MD Reason For Visit: COPD EXACERBATION Diagnosis Discharge Diagnosis (1) COPD exacerbation: Status: Chronic Code(s): J44.1 - Chronic obstructive pulmonary disease with (acute) exacerbation Plan 1. COPD exacerbation with hypoxia/tobacco abuse ? He becomes hypoxic with ambulation ? Continue with Solu-Medrol and breathing treatments ? He is endorsing some sputum production so we will obtain a sputum culture and started on Levaquin ? Was given a dose of doxycycline in the ER, no signs of infection ? We will provide a nicotine patch and discussed cessation 2. HTN ? Blood pressures are stable ? Can continue with his ARB 3. Alcohol use ? Stable denies having ever gone through withdrawal ? We will place him on the [facility] protocol and monitor. DVT: Lovenox Medications at Discharge Home Medications albuterol sulfate 90 mcg/actuation aerosol inhaler 1 puff inhalation Q6H PRN SOB 07/23/18 fluticasone 100 mcg-salmeterol 50 mcg/dose blistr powdr for inhalation (Advair Diskus) 1 puff inhalation BID breathing 07/23/18 losartan 25 mg tablet 25 mg PO DAILY blood pressure 07/23/18 tiotropium bromide 1.25 mcg/actuation mist for inhalation (Spiriva Respimat) 2 puff inhalation DAILY breathing 07/23/18 hydrocodone-acetaminophen 5-325mg 5mg-325mg 1 tab PO Q4H PRN PRN Pain 2 days #10 TABLETS 09/24/21 docusate sodium 100 mg capsule 100 mg PO DAILY stool softner 11/07/21 levofloxacin 750 mg tablet 750 mg PO DAILY@0600 #5 tabs 11/07/21 lidocaine 3 %-hydrocortisone 0.5 % topical cream 1 disk TP TID pain 11/07/21 prednisone 20 mg tablet 40 mg PO DAILY #14 tabs 11/07/21 Hospital Course Operations None Procedures None Summary of Care Provided Minutes Spent on Discharge: 38 Hospital Course: Per HPI:LAUREL OTERO, is a 61 M who presents to the hospital with shortness of breath.? He does have a history of COPD and recently started on prednisone, this explains his elevated leukocytosis in the ER.? He is not requiring oxygen at rest but he did drop down to the mid 80s with ambulation.? Because of this admission was requested.? He denies any fevers or chills chest x-ray was unremarkable did not demonstrate pneumonia.? COVID test was negative, and respiratory panel is currently pending.? He does not follow with pulmonology as an outpatient he does continue to smoke. Hospital Course: 1.? COPD exacerbation with hypoxia/tobacco abuse ? Oxygenation has improved, with ambulation today he did not demonstrate a need for any O2. He is feeling much better today. He was started on Levaquin secondary to a productive cough and a sputum culture today is showing possible haemophilus species. We will continue with Levaquin for another 5 days. We greg l also transition him to prednisone for 7 more days and I would like him to follow-up with pulmonology as an outpatient. I discussed with him the plan for discharge today and he expressed understanding of the risk and benefits of going home and he would like to go home today. I recommend that he follow-up with his PCP in 3 to 5 days. 2.? HTN ? Blood pressures are stable ? Can continue with his ARB 3.? Alcohol use ? Stable denies having ever gone through withdrawal ? We will place him on the [facility] protocol and monitor. ? 180 did follow-up with him to evaluate his desire for outpatient rehab, at this time he is not quite sure that he is ready to quit drinking however he was given resources to look into closer to where he lives if and when he is ready to quit drinking. Physical Exam Narrative General: Alert, Oriented x3, Cooperative, No apparent distress HEENT: Atraumatic, PERRLA, EOMI, Normocephalic Oral: Moist Mucosa Neck: Supple, No JVD Lungs: Diminished, Normal air movement, No rhonchi, slight wheeze, No rales Cardiovascular: Tachycardic, Regular Rhythm, Normal S1, Normal S2, No murmurs Abdomen: Soft, Non Tender, Non-Distended, No Hepato-splenomegaly Extremities: No edema, Capillary Refill Less than 3 Seconds Skin: No rashes, No breakdown Musculoskeletal: No Tenderness to Palpation of Joints or Extremities Neurological: Cranial nerves II-XII grossly intact, Motor Exam 5/5 strength throughout, Sensory exam intact to light touch and pain Psych/Mental Status: Normal Affect, Appropriate Weight / BMI Weight Weight: 147 lb 14.883 oz Body Mass Index (BMI) 24.6 ABG / Lab / Microbiology Data Result Diagrams: 11/06/21 06:10 11/06/21 06:10 Microbiology: Microbiology 11/06/21 10:50 Sputum, Expectorated/Coughed Gram Stain - Final 11/06/21 10:50 Sputum, Expectorated/Coughed Respiratory Culture - Preliminary GNR Possible Haemophilus sp. 11/05/21 11:45 Mucosa - Nasopharyngeal Respiratory Panel (PCR) - Final 11/05/21 08:50 Nasal Secretion SARS-CoV-2 Antigen (Rapid) - Final D/C Instructions Discharge Diet: Low fat / Low cholesterol Call your doctor if you observe: Fever of 101 or Higher, Shortness of breath, Dizziness, Fainting spells, Swelling in the ankles, Chest pain and Increased pal pitations (irregular heartbeat) Meaningful Use Info Meaningful Use Diagnoses (Choose all that apply): None applicable Discharge Plan Admission Admit Date/Time: 11/05/21 10:51 Attending Provider: Jose Rangel Primary Care Provider: Stone Fortune Instructions Additional Instructions / Restrictions: Patient Problems: Altered Health Status related to Hospitalization Patient Goals: *Optimal Level of Health *Keep Appointments *Medication Compliance *Remain Safe Discharge Orders/Prescriptions Prescriptions: New levofloxacin 750 mg Tablet 750 mg PO DAILY@0600 Qty: 5 0RF prednisone 20 mg tablet 40 mg PO DAILY Qty: 14 0RF Continued losartan 25 mg tablet 25 mg PO DAILY fluticasone propion-salmeterol [Advair Diskus] 100-50 mcg/dose blister with device 1 puff INHALATION BID Spiriva Respimat 1.25 mcg/actuation mist 2 puff INHALATION DAILY albuterol sulfate 90 mcg/actuation HFA aerosol inhaler 1 puff INHALATION Q6H PRN (Reason: SOB) hydrocodone-acetaminophen 1 TABLET tablet 1 tab PO Q4H PRN PRN (Reason: Pain) 2 Days Qty: 10 0RF No Action docusate sodium 100 MG capsule 100 mg PO DAILY lidocaine HCl-hydrocortison ac 28.35 GM cream 1 disk TP TID Referrals / Follow Up: Efren Kay MD [Med Staff - Active Staff] - Within 1 Month Stone Fortune MD [Primary Care Provider] - Within 1 Week Disposition Disposition (needs filled in before D/C Order can be placed): Home, Self Care Charges/Coding Visit Charges Inpatient E&M: 82632 Disch Hosp
== END 2021-11-07 13:52 | disposition home or self-care (01) | DRG 191 ==
LOC: ED 08:47 → PCU 11:18
PROVIDERS: Admitting Provider Family Medicine; Emergency Provider Emergency Medicine; PCP Family Medicine; Visit Provider Family Medicine
DX: J44.1 Chronic obstructive pulmonary disease with (acute) exacerbation (principal); E87.1 Hypo-osmolality and hyponatremia; I10 Essential (primary) hypertension; F17.210 Nicotine dependence, cigarettes, uncomplicated; R09.02 Hypoxemia; Z20.822 Contact with and (suspected) exposure to COVID-19; Z79.51 Long term (current) use of inhaled steroids; Z79.899 Other long term (current) drug therapy
CPT/HCPCS: 36415; 71046; 80048; 84484; 85025; 85379; 87070; 87077; 87186; 87205; 87633; 87811; 93005; 94640; 97802; 99285; J7030; A4216

== ENCOUNTER → 2022-03-11 | Outpatient (CLI) | payer OTHER, SELFPAY ==
--- NOTE | 2022-03-11 08:18 | CT_ITS ---
STUDY: LOW DOSE CT LUNG CANCER SCREENING REASON FOR EXAM: Male, 61 years old. Screening. Patient smokes 1 pack per day for 40 years. RADIATION DOSAGE (If Supplied By Facility): CTDIvol = ( 3.02 ) mGy, DLP = ( 114.38 ) mGycm TECHNIQUE: No contrast was administered. Low dose technique was utilized (average mAS-38 and kVp 120). 1.25 mm axial source images with a slice interval of 1.25-mm were reconstructed in lung windows. 2.5 mm axial source images with a slice interval of 2.5-mm were reconstructed in lung windows. 5.0 mm axial source images with a slice interval of 5.0-mm were reconstructed in soft tissue windows. COMPARISON: Comparison is made with prior study 10/14/2020. NODULES: No suspicious nodules seen. Emphysema: Stable mild degree of emphysematous changes in the lung apices. Endobronchial lesion: None Aorta: Atherosclerotic plaque formation. CORONARY ARTERIES: Coronary artery calcification is seen. Heart: Unremarkable Pulmonary artery: Unremarkable Mediastinal nodes: Small mediastinal lymph nodes. Other chest and abdominal findings: CT/Low Dose CT Lung Screening IMPRESSION: Lung-RADS category 2 - Continue annual screening with LDCT in 12 months. IMPORTANT NOTES FOR USE: ACR Lung-RADS Version 1.1 Assessment Categories Release Date: 2018 Category: Coded 0-4 bases on nodule(s) with highest degree of suspicion. Negative screen is defined as categories 1 and 2; a positive screen is defined as categories 3 and 4. Category 3 and 4A nodules that are unchanged on interval CT should be coded as category 2, and individuals returned to screening in 12 months. Category 4X: Category 3 or 4 nodules with additional imaging findings that increase the suspicion of lung cancer, such as spiculation, GGN that doubles in size in 1 year, enlarged lymph notes, etc. Category Modifiers: S (significant finding unrelated to lung cancer) Electronically Signed: Star Apodaca MD at 13:32 EST ,
--- NOTE | 2022-03-11 13:05 | PFTCOMP ---
COMPLETE PULMONARY FUNCTION TEST INTERPRETATION Brief HPI: Patient is a 61-year-old male, currently under the care of myself, who presents to [facility] for complete pulmonary function tests secondary to diagnosis of COPD. Respiratory therapist reports good effort and reproducible results. Interpretation: Forced expiration spirometry shows a very severe large airways obstructive ventilatory defect with an FEV1 of 31% predicted. There is no significant bronchodilator response by strict ATS criteria. Spirograms are of good quality and plateau slowly, indicating slowly emptying areas of the lungs. The respiratory flow volume loop shows decreased expiratory flow rates at all lung volumes consistent with airway obstruction. Lung volumes by body plethysmography show a normal total lung capacity at 7.35 L, 110% predicted. FRC and RV are elevated out of proportion. Lung volume measurements are consistent with hyperinflation and air-trapping. Diffusion capacity by carbon monoxide is normal at 89% predicted. The airway resistance is elevated. No previous pulmonary function tests were available for review. Impression: Irreversible very severe large airways obstructive ventilatory defect resulting in air trapping with hyperinflation, but relatively preserved diffusion capacity
== END | disposition home or self-care (01) ==
LOC: CT 08:16
PROVIDERS: PCP Family Medicine; Visit Provider Internal Medicine Critical Care Medicine
DX: J44.9 Chronic obstructive pulmonary disease, unspecified (principal); F17.210 Nicotine dependence, cigarettes, uncomplicated; Z12.2 Encounter for screening for malignant neoplasm of respiratory organs
CPT/HCPCS: 71271; 94060; 94726; 94729

== ENCOUNTER → 2022-03-12 | Outpatient (CLI) | payer OTHER, SELFPAY ==
[2022-03-12 07:42] VITALS: PULSE 104; PULSE 105; PULSE 114; PULSE 119; PULSE 120; PULSE 121; O2SAT 90; O2SAT 91; O2SAT 92; O2SAT 94
--- NOTE | 2022-03-12 12:21 | PCM.PSN.6M ---
PSN 6 Minute Walk Test 6 Minute Walk Test 6 Minute Walk Test: 6 Minute Walk Test PSN:6-Minute Walk Test Start: 03/12/22 07:42 Freq: Status: Active Protocol: RESP.6MINW Document 03/12/22 07:42 ARIK (Rec: 03/12/22 07:45 ARIK [id number]) 6 Minute Walk Test Date Performed 03/12/22 Time Performed 07:30 Height 5 ft 7 in Weight: 71.214 kg Weight in Pounds 157.[address]: Efren Kay Assistive device used: None Pre-test Oxygen Delivery Method Room Air Pulse Ox (%) 92 Pulse Rate (60-100 beats/min) 105 H Dyspnea Eliceo Scale (0-10) 0 Exertion Eliceo Scale (6-20) 6 1st minute Oxygen Delivery Method Room Air Pulse Ox (%) 91 Pulse Rate (60-100 beats/min) 114 H 2nd minute Oxygen Delivery Method Room Air Pulse Ox (%) 90 Pulse Rate (60-100 beats/min) 120 H 3rd minute Oxygen Delivery Method Room Air Pulse Ox (%) 90 Pulse Rate (60-100 beats/min) 119 H 4th minute Oxygen Delivery Method Room Air Pulse Ox (%) 91 Pulse Rate (60-100 beats/min) 121 H 5th minute Oxygen Delivery Method Room Air Pulse Ox (%) 90 Pulse Rate (60-100 beats/min) 121 H 6th minute Oxygen Delivery Method Room Air Pulse Ox (%) 91 Pulse Rate (60-100 beats/min) 121 H Dyspnea Eliceo Scale (0-10) 3 Exertion Eliceo Scale (6-20) 13 Post-test Oxygen Delivery Method Room Air Pulse Ox (%) 94 Pulse Rate (60-100 beats/min) 104 H Full Laps Walked 16 Partial Lap, Number of Tiles Walked 15 Total Distance Walked (ft) 959 Interpretation Interpretation: The patient was able to ambulate 959 feet over the course of 6 minutes on room air with no assistive devices or breaks. The patient did have a lower baseline saturation of 92%, but only desaturated to 90% with ambulation. Patient did have persistent tachycardia with a peak rate of 121 bpm throughout the testing. These findings are consistent with a respiratory limitation exercise tolerance. Recommendations Recommendations: No supplemental oxygen is indicated at this time. However, patient will need to be followed closely given level of desaturation.
== END | disposition home or self-care (01) ==
LOC: PSN 07:16
PROVIDERS: PCP Family Medicine; Visit Provider Internal Medicine Critical Care Medicine
DX: J44.9 Chronic obstructive pulmonary disease, unspecified (principal)
CPT/HCPCS: 94618

== ENCOUNTER → 2022-04-30 | Outpatient (CLI) | payer OTHER, SELFPAY | END | disposition home or self-care (01) | LOC: SL 11:11 | PROVIDERS: PCP Family Medicine; Referring Provider Internal Medicine Critical Care Medicine; Visit Provider Internal Medicine Critical Care Medicine | DX: J44.9 Chronic obstructive pulmonary disease, unspecified (principal); F17.210 Nicotine dependence, cigarettes, uncomplicated | CPT/HCPCS: 94762 ==

== ENCOUNTER → 2022-06-03 | Outpatient (CLI) | payer OTHER, SELFPAY ==
[2022-06-03 17:36] LABS: Hematocrit 47.1 % (40-54); Hemoglobin 16.3 g/dL (13.0-16.5); Mean Corp Hgb Conc 34.6 g/dL (32-36); Mean Corpuscular Hgb 31.7 pg (27.0-32.0); Mean Corpuscular Volume 91.6 fL (80-94); Mean Platelet Vol. 8.4 fl (6.2-12.0); Platelet Count 375 K/mm3 (150-450); RBC Distribution Width CV 11.8 % (11.6-14.6); RBC Distribution Width SD 39.5 fl (35.1-43.9); Red Blood Count 5.14 M/mm3 (4.6-6.2)
[2022-06-03 18:03] LABS: Vitamin D,25 Hydroxy 14.4 ng/mL
[2022-06-03 18:24] LABS: ALB/GLOB Ratio 1.1 RATIO (0.9-2.4); AST(SGOT) 24 U/L (15-37); Alanine Aminotransfer ALT/SGPT 22 U/L (16-61); Albumin, Serum 3.7 g/dL (3.2-5.0); Alkaline Phosphatase 77 U/L (45-117); Anion Gap 4 (5-15); BUN 14 mg/dL (7-18); BUN/Creat Ratio 17.8 RATIO (10-20); Calcium,Total 9.1 mg/dL (8.5-10.1); Chloride 95 mmol/L (98-107); Creatinine, Serum 0.79 mg/dL (0.70-1.30); EST Glomerular Filtration Rate 107 mL/min (>60); Est Glom Filt Rate - Afr Amer 129 mL/min (>60); Globulin 3.4 g/dL (2.2-4.2); Glucose 96 mg/dL (74-106); Magnesium 2.4 mg/dL (1.6-2.6); Phosphorus 3.7 mg/dL (2.5-4.9); Potassium 4.1 mmol/L (3.5-5.1); Protein, Total 7.1 g/dL (6.4-8.2); Sodium Level 127 mmol/L (136-145); Thyroid Stim Hormone (TSH) 1.54 uIU/mL (0.358-3.74)
[2022-06-04 08:03] LABS: PTHIN 18.3 pg/mL (18.4-80.1)
== END | disposition home or self-care (01) ==
LOC: MFPLAB 16:52
PROVIDERS: PCP Family Medicine; Visit Provider Family Medicine
DX: M85.80 Other specified disorders of bone density and structure, unspecified site (principal); J44.9 Chronic obstructive pulmonary disease, unspecified; R10.13 Epigastric pain
CPT/HCPCS: 36415; 80053; 82306; 82330; 83735; 83970; 84100; 84443; 85027

== ENCOUNTER → 2022-06-23 | Outpatient (CLI) | payer OTHER, SELFPAY | END | disposition home or self-care (01) | PROVIDERS: PCP Family Medicine; Referring Provider Internal Medicine Critical Care Medicine; Visit Provider Internal Medicine Critical Care Medicine | DX: J44.9 Chronic obstructive pulmonary disease, unspecified (principal) | CPT/HCPCS: 87070; 87077; 87186; 87205 ==

== ENCOUNTER → 2022-08-02 | Outpatient (CLI) | payer OTHER, SELFPAY ==
--- NOTE | 2022-08-02 | TOBX_PTH ---
PATIENT: LAUREL OTERO LOC: [facility] U#:[id number] AGE/SX: 61/M ROOM: RE08/02/[address]: SG FERGUSON MD : 1960 BED: DIS: 08/02/2022 SPEC #: [id number] RECD: 08/02/22 13:36 STATUS: LENCHO THOMASDaniela #: [id number] SREEDHAR: 08/02/22 00:[address]: SG FERGUSON DEPT: SURGICAL PATHOLOGY RECD BY: Duran Jones ENTERED: 08/05/22 08:20 SP TYPE: TONGUE BX OTHR DR: Dr. Alfonso Fortune MD Tissues: Tongue, NOS Procedures: Special Stain Group I Surgery Specimen Level IV GMS Stain (control) HEADER OPERATION: Incisional biopsy (tissue punch) of left ventral tongue PRE-OP DIAGNOSIS: Keratin white patch on ventral tongue TISSUE SUBMITTED: Left ventral tongue MICROSCOPIC DIAGNOSIS Left ventral tongue, incisional biopsy: Focal moderate squamous dysplasia. Negative for invasive carcinoma. See comment. NICKO:jacinta 08/06/2022 COMMENT Immunohistochemistry ([id number]) for surrogate HPV marker (p16) supports the above diagnosis. Special stain for fungi is negative for organisms; matched control is appropriate. Clinical correlation and appropriate follow up are necessary. MICROSCOPIC DESCRIPTION Slides are reviewed. GROSS DESCRIPTION Received in fixative is one container labeled with the patient's name and designated tongue. The specimen consists of a piece of ryan mucosal tissue measuring 0.6 x 0.3 x 0.3 cm. The specimen is inked and submitted entirely in one cassette. / NICKO:jacinta 08/05/2022 TC:5 CPT: 35704, 40115
--- NOTE | 2022-08-02 | IMM_PTH ---
PATIENT: LAUREL OTERO LOC: [facility] U#:[id number] AGE/SX: 61/M ROOM: RE08/02/[address]: SG FERGUSON MD : 1960 BED: DIS: 08/02/2022 SPEC #: [id number] RECD: 08/06/22 12:51 STATUS: LENCHO REQ #: [id number] SREEDHAR: 08/02/22 00:[address]: SG FERGUSON DEPT: IMMUNOHISTOCHEMISTRY RECD BY: Sydney Hernandez ENTERED: 08/06/22 12:51 SP TYPE: IMMUNO OTHR DR: Dr. Alfonso Fortune MD Tissues: Tongue, NOS Procedures: p16 (initial) KI-67 (add) PHYSICIAN & [place] [id number] SPECIMEN INFORMATION: Tissue Source: Left ventral tongue Clinical Info: Keratin white patch on ventral tongue Specimen Number: [id number] CPT code: 05270, 06174 METHODOLOGY: Deparaffinized sections of prefer/formalin-fixed tissue or PAP/DQ stained slides are incubated with monoclonal/polyclonal antibodies/oligonucleotide probes. Localization is made via biotin free immunoperoxidase method. Appropriate controls are performed and reacted as expected. Results on target cell population are indicated in the following table: RESULTS: ANTIBODY / CLONE RESULT P16 (E6H4) positive, block staining Ki-67 (30-9) positive, moderate These tests were developed and their performance characteristics determined by [facility]. They may not have been cleared or approved by the U.S. Food and Drug Administration. The FDA has determined that such clearance or approval is not necessary. The above immunohistochemical/dualISH markers are ordered and reviewed by the Pathologist. INTERPRETATION: Left ventral tongue, biopsy: Focal moderate squamous dysplasia. NICKO:jacinta 08/07/2022
== END | disposition home or self-care (01) ==
LOC: LABSPEC 13:49
PROVIDERS: PCP Family Medicine; Referring Provider Dentist Oral and Maxillofacial Surgery; Visit Provider Dentist Oral and Maxillofacial Surgery
DX: K13.29 Other disturbances of oral epithelium, including tongue (principal)
CPT/HCPCS: 88305; 88312; 88341; 88342

== ENCOUNTER → 2022-09-02 | Outpatient (CLI) | payer OTHER, SELFPAY ==
--- NOTE | 2022-09-02 17:04 | RAD_ITS ---
EXAM: XR CERVICAL SPINE, 6 OR MORE VIEWS CLINICAL INDICATION: PAIN TECHNIQUE: Frontal, lateral, oblique and flexion/extension views of the cervical spine. COMPARISON: No relevant prior studies available. FINDINGS: VERTEBRAE: Bilateral vertebral facet arthropathy C3-C4 through C6-C7 bilaterally. Slight anterior subluxation of C3 on C4 and slight posterior subluxation of C4 on C5. Moderate uncovertebral joint osteophytes bilaterally C3-C4, C4-C5, and C5-C6. Preserved vertebral body height. No acute fracture. No spondylolisthesis. Preservation of the normal cervical lordosis. DISC SPACES: Moderate disc space narrowing and marginal osteophytes C3-C4, C4-C5, C5-C6, and C6-C7. SOFT TISSUES: Unremarkable. No prevertebral soft tissue widening. LUNG APICES: Clear. RAD/Cerv Spine Obl/Flex/Ext Comp IMPRESSION: Diffuse degenerative changes C3-C4 through C6-C7. Electronically Signed: Francis Morales MD at 0:49 EDT ,
== END | disposition home or self-care (01) ==
LOC: MTRAD 17:03
PROVIDERS: PCP Family Medicine; Referring Provider Family Medicine; Visit Provider Family Medicine
DX: M54.2 Cervicalgia (principal)
CPT/HCPCS: 72052

== ENCOUNTER → 2023-02-20 | Outpatient (CLI) | payer OTHER, SELFPAY ==
--- NOTE | 2023-02-20 16:15 | RAD_ITS ---
EXAM: XR THORACIC SPINE, 3 VIEWS CLINICAL INDICATION: BACK PAIN TECHNIQUE: Frontal, lateral and swimmer''s views of the thoracic spine. COMPARISON: Cervical spine radiographs, 09/02/2022, chest radiograph, 11/05/2021, thoracic spine radiographs, 10/23/2016. FINDINGS: VERTEBRAE: Multilevel endplate osteophytosis and facet arthrosis. Impression fractures of what appear to be T12 and L1 correlate with the prior chest radiograph. No spondylolisthesis. Preservation of the normal thoracic kyphosis. DISC SPACES: Multilevel intervertebral disc height loss. RAD/Thoracic Spine 3 Views IMPRESSION: Chronic compression fractures at the thoracolumbar junction. Degenerative changes. Electronically Signed: Jules Vargas DO at 19:56 EST ,
== END | disposition home or self-care (01) ==
LOC: MTRAD 16:13
PROVIDERS: PCP Family Medicine; Referring Provider Clinical Nurse Specialist Adult Health; Visit Provider Clinical Nurse Specialist Adult Health
DX: M51.34 Other intervertebral disc degeneration, thoracic region (principal)
CPT/HCPCS: 72072

== ENCOUNTER → 2023-03-19 | Outpatient (CLI) | payer OTHER, SELFPAY ==
--- NOTE | 2023-03-19 16:35 | CT_ITS ---
STUDY: LOW DOSE CT LUNG CANCER SCREENING REASON FOR EXAM: Male, 62 years old. One pack per day smoker x45 years RADIATION DOSAGE (If Supplied By Facility): CTDIvol = ( 1.59 ) mGy, DLP = ( 58.58 ) mGycm TECHNIQUE: No contrast was administered. Low dose technique was utilized (average mAS-38 and kVp 120). 1.25 mm axial source images with a slice interval of 1.25-mm were reconstructed in lung windows. 2.5 mm axial source images with a slice interval of 2.5-mm were reconstructed in lung windows. 5.0 mm axial source images with a slice interval of 5.0-mm were reconstructed in soft tissue windows. COMPARISON: 03/11/2022 FINDINGS: Lung windows show mild underlying emphysema with chronic interstitial changes in both lung mims. There is a stable 2.5 mm nodule in the right upper lobe on axial image 83. No other suspicious noncalcified mass or nodule is noted. There is no organized infiltrate or effusion. Limited soft tissue windows show normal-appearing thyroid gland. No suspicious adenopathy. No thoracic aortic aneurysm or dissection. There are calcified coronary vessels. Limited cuts through the upper abdomen do not show a suspicious abnormality. Bony structures show degenerative change CT/Low Dose CT Lung Screening IMPRESSION: Lung-RADS category 2 - Continue annual screening with LDCT in 12 months. IMPORTANT NOTES FOR USE: ACR Lung-RADS Version 1.1 Assessment Categories Release Date: 2018 Category: Coded 0-4 bases on nodule(s) with highest degree of suspicion. Negative screen is defined as categories 1 and 2; a positive screen is defined as categories 3 and 4. Category 3 and 4A nodules that are unchanged on interval CT should be coded as category 2, and individuals returned to screening in 12 months. Category 4X: Category 3 or 4 nodules with additional imaging findings that increase the suspicion of lung cancer, such as spiculation, GGN that doubles in size in 1 year, enlarged lymph notes, etc. Category Modifiers: S (significant finding unrelated to lung cancer) Electronically Signed: Luca Rodriguez MD at 23:38 EST ,
== END | disposition home or self-care (01) ==
LOC: CT 16:35
PROVIDERS: PCP Family Medicine; Referring Provider Nurse Practitioner Acute Care; Visit Provider Nurse Practitioner Acute Care
DX: Z12.2 Encounter for screening for malignant neoplasm of respiratory organs (principal); F17.210 Nicotine dependence, cigarettes, uncomplicated
CPT/HCPCS: 71271

== ENCOUNTER → 2023-05-01 | Outpatient (CLI) | payer OTHER, SELFPAY ==
[2023-05-01 15:18] LABS: Ionized Calcium 4.98 mg/dL (4.36-5.20)
[2023-05-01 15:57] LABS: Hematocrit 43.8 % (40-54); Hemoglobin 14.7 g/dL (13.0-16.5); Mean Corp Hgb Conc 33.6 g/dL (32-36); Mean Corpuscular Hgb 30.8 pg (27.0-32.0); Mean Corpuscular Volume 91.6 fL (80-94); Mean Platelet Vol. 8.6 fl (6.2-12.0); Platelet Count 400 K/mm3 (150-450); RBC Distribution Width SD 40.3 fl (35.1-43.9); Red Blood Count 4.78 M/mm3 (4.6-6.2); White Blood Count 8.2 K/mm3 (4.4-11.0)
[2023-05-01 16:28] LABS: PTHIN 35.6 pg/mL (18.4-80.1)
[2023-05-01 16:30] LABS: Vitamin D,25 Hydroxy 22.7 ng/mL
[2023-05-01 16:42] LABS: Anion Gap 7 (5-15); BUN 13 mg/dL (7-18); BUN/Creat Ratio 18.3 RATIO (10-20); Calcium,Total 9.3 mg/dL (8.5-10.1); Chloride 95 mmol/L (98-107); Creatinine, Serum 0.71 mg/dL (0.70-1.30); EST Glomerular Filtration Rate 120 mL/min (>60); Est Glom Filt Rate - Afr Amer 145 mL/min (>60); Glucose 82 mg/dL (74-106); Magnesium 2.5 mg/dL (1.6-2.6); Phosphorus 4.4 mg/dL (2.5-4.9); Sodium Level 132 mmol/L (136-145); Thyroid Stim Hormone (TSH) 1.18 uIU/mL (0.358-3.74)
== END | disposition home or self-care (01) ==
LOC: LAB 14:32
PROVIDERS: PCP Family Medicine; Visit Provider Family Medicine
DX: M85.80 Other specified disorders of bone density and structure, unspecified site (principal); J44.9 Chronic obstructive pulmonary disease, unspecified; Z12.5 Encounter for screening for malignant neoplasm of prostate
CPT/HCPCS: 36415; 80048; 82306; 82330; 83735; 83970; 84100; 84153; 84443; 85027; G0103

== ENCOUNTER 2023-05-26 08:27 | Emergency (ER) | payer OTHER, SELFPAY ==
[2023-05-26 08:27] VITALS: BP 154/90; PULSE 89; RESP 16; TEMP 36.7; O2SAT 97; BMI 24.4
[2023-05-26 08:30] VITALS: BP 154/90; PULSE 89; RESP 16; TEMP 36.7; O2SAT 97
--- NOTE | 2023-05-26 08:41 | EDS_ITS ---
HPI History of Present Illness Chief Complaint: General Illness Detail of Chief Complaint: Burning abdominal discomfort. Diffuse nonlocalized. Informant: patient Onset/Context/Timing Onset: Month(s) Context: Gradual Onset Timing: Intermittent Current Severity: Mild Maximum Severity: Mild Narrative Narrative: 62-year-old male history of COPD. Prior appendectomy. Says for months he has had diffuse burning abdominal pain. Typically gets better with antacids and Pepto-Bismol but more recently that has not been working. Denies any history of GI bleed. Denies any weight loss. Says his stomach feels like it is on fire.. Denies any weight loss. The last several days he has had constipation. Prior similar symptoms: Yes Recent Illness/Hospitalization: No PFSH PFSH Medical History (Updated 05/26/23 @ 11:[address] Andrey Guerrero MD) Alcohol abuse Arthritis COPD (chronic obstructive pulmonary disease) Hemorrhoids Hypertension Home Medications guaifenesin 1,200 mg tablet, extended release 12 hr 1,200 mg PO Q12H #60 tabs 12/23/22 [Rx Last Taken Unknown] fluticasone 500 mcg-salmeterol 50 mcg/dose blistr powdr for inhalation (Advair Diskus) 1 inh inhalation Q12H #60 ea 01/06/23 [Rx Last Taken Unknown] tiotropium bromide 1.25 mcg/actuation mist for inhalation (Spiriva Respimat) 2 puff inhalation DAILY breathing #4 grams 01/06/23 [Rx Last Taken Unknown] albuterol sulfate 90 mcg/actuation aerosol inhaler 1 puff inhalation Q6H PRN SOB #8.5 grams 01/24/23 [Rx Last Taken Unknown] losartan 50 mg tablet 50 mg PO DAILY 05/26/23 [History Last Taken Unknown] Allergy/AdvReac Type Severity Reaction Status Date / Time No Known Allergies Allergy Verified 05/26/23 08:30 Family History Mother Arthritis Father Diabetes Heart disease Hypertension Surgical History Hx of appendectomy Hx of colonoscopy Hx of vasectomy Social History Smoking Status: Current every day smoker tobacco type: cigarettes second hand exposure: Yes alcohol intake: current alcohol intake frequency: 3 or more drinks per day substance use type: does not use caffeine: Yes what type of physical activity do you participate in: none frequency: does not exercise ROS ROS ED ROS Narrative Abdominal pain. Review of Systems ROS Unobtainable: Denies due to encephalopathy Constitutional Constitutional ED: Denies chills or fever(s) Eyes Eyes: Denies blurry vision ENT ENT ED: Denies ear pain Cardiovascular Cardiovascular: Denies chest pain Respiratory/Chest Respiratory/Chest: Denies cough or dyspnea Gastrointestinal Gastrointestinal: Reports abdominal pain and constipation; Denies diarrhea, melena, nausea or vomiting Genitourinary Genitourinary ED: Denies dysuria or hematuria Musculoskeletal Musculoskeletal: Denies arthralgias Integumentary Denies abscess Neurologic Neurologic: Denies headache(s) Psychiatric Psychiatric: Denies anxiety Endocrine Endocrinology: Denies cold intolerance Hematologic/Lymphatic Hematologic/Lymphatic: Reports none; Denies systems reviewed and no addt'l complaints, except as documented or as per HPI Allergic/Immunologic Allergic/Immunologic ED: Denies mouth swelling, tongue swelling or urticaria EXAM Physical Exam Narrative Exam Narrative: Well-appearing 62-year-old male. Vital signs stable afebrile. H EENT exam unremarkable. Neck nontender. Lungs clear to auscultation bilaterally except for few scattered wheezes.. Coarse breath sounds. Heart regular rhythm rate about 90 no murmur. Chest wall and ribs nontender. Abdomen soft nondistended normal bowel sounds no peritoneal signs. No hernia or mass. No localizing right upper or right lower quadrant tenderness. No obstruction. Back nontender. Moving all 4 extremities. Normal strength. No edema. No deformity or tenderness. Neurologically is awake and alert no focal motor deficits. Const Vital Signs: 05/26/23 08:27 05/26/23 08:30 05/26/23 08:30 Temperature 98.1 F 98.1 F 98.1 F Temperature Source Temporal Temporal Temporal Pulse Rate 89 89 89 Respiratory Rate 16 16 16 Respiratory Effort Respiratory Pattern Blood Pressure 154/90 H 154/90 H 154/90 H Blood Pressure Mean 111 111 111 Pulse Ox 97 97 97 Oxygen Delivery Method Room Air Room Air Room Air 05/26/23 09:07 05/26/23 10:30 Temperature Temperature Source Pulse Rate 81 Respiratory Rate 16 Respiratory Effort Normal Respiratory Pattern Normal Blood Pressure 135/95 H Blood Pressure Mean 108 Pulse Ox 96 Oxygen Delivery Method Room Air Positive well nourished and well developed; Negative for obese, cachectic, contractures or unkempt General Appearance ED: well developed and NAD; Negative for unkempt, cachectic, contractures, cyanotic, diaphoretic or pallor Nutritional Appearance: Negative for cachectic or obese HEENT Reports moist mucous membranes; Denies dry mucous membranes Negative for trauma or tenderness Mouth ED: No dry mucous membranes Mouth: No dry mucous membranes Eyes PERRL and EOMs intact bilaterally General Eye ED: Negative for pale conjunctiva or scleral icterus Neck no lymphadenopathy, supple and no JVD General: Negative for tenderness Lymph Lymphatic: Negative for other Chest Wall inspection of chest normal and palpation of chest normal Chest: Negative for other Resp normal respiratory effort and No clear to auscultation bilaterally Resp Narrative: Few scattered wheezes. No distress. Effort and Inspection: Negative for retractions Auscultation: wheezes; Negative for rales or rhonchi Cardio regular rate, regular rhythm, S1 normal heart sound, S2 normal heart sound and no murmurs Palpation: Negative for palpable S3 or palpable S4 Rate: Negative for bradycardia or tachycardic Rhythm: Negative for abnormal rhythm GI normal to inspection, nondistended, normoactive bowel sounds, non-tender, non- distended and no masses GI Narrative: Positive bowel sounds. Inspection: Negative for abdominal distention Auscultation: normoactive bowel sounds Palpation: soft; Negative for tender or guarding Back/Spine no CVA tenderness General Back: Negative for CVA tenderness Cervical Spine: Negative for cervical spine tenderness Thoracic Spine / Upper Back: Negative for thoracic spinal tenderness Lumbar Spine / Lower Back: Negative for lumbar spinal tenderness Extremity normal to inspection General Extremety ED: Negative for edema or tenderness General Extremity: Negative for edema Neuro oriented x3 and CN's II-XII intact bilaterally Sensorium / Orientation: alert; Negative for orientation impaired, lethargic or stuporous Motor Exam: strength 5/5 throughout; Negative for general weakness or strength abnormal Psych mental status grossly normal Appearance: Negative for unkempt Attitude: No agitated Mood & Affect: Negative for depressed, anxious or tearful Skin no rashes or lesions noted, no wounds and skin turgor normal General Skin Exam: elasticity normal; Negative for jaundice or pallor Lesions: No lesion noted Rashes: No rashes noted Trauma: Negative for abrasion Wounds: Negative for wounds noted MDM MDM MDM Narrative Medical decision making narrative: 62-year-old male with burning abdominal pain. Exam benign. CAT scan labs are pending. Repeat exam patient doing well at 11:34 AM. We went over his test results are basically unremarkable other than his chronic hyponatremia. Also his CAT scan results. He will be discharged home with outpatient follow- up. History & Record Review Discussion w/independent historian: Patient Additional record(s) reviewed:: Prior inpatient record, Prior outpatient record, Prior ED visit and Prior labs Lab Data Attestation: I reviewed the patient's lab results. Lab results narrative: CBC unremarkable. White count of 5.3. H&H of 15 and 43. Platelets 322. Electrolytes show sodium 126 has had chronic hyponatremia between 126 and 130 on a number of occasions. Gap 7. BUN and creatinine are 6 and 0.6. Liver enzymes are normal. Lipase is normal at 23. CAT scan showed diverticulosis without obvious diverticulitis. No abscess. Read by the radiologist and reviewed by me. Labs: Laboratory Results - last 24 hr 05/26/23 09:14 WBC 5.3 RBC 4.84 Hgb 15.1 Hct 43.2 MCV 89.3 MCH 31.2 MCHC 35.0 RDW Std Deviation 38.3 RDW Coeff of Pam 11.9 Plt Count 322 MPV 8.3 Immature Gran % (Auto) 0.400 Neut % (Auto) 62.9 Lymph % (Auto) 19.4 [place] % (Auto) 13.7 H Eos % (Auto) 2.1 Baso % (Auto) 1.5 H Absolute Neuts (auto) 3.3 Absolute Lymphs (auto) 1.02 Nucleated RBC % 0 Sodium 126 L Potassium 4.2 Chloride 91 L Carbon Dioxide 28.0 Anion Gap 7 BUN 6 L Creatinine 0.61 L Estim Creat Clear Calc 118.90 Est GFR (MDRD) Af Amer 173 Est GFR (MDRD) Non-Af 143 BUN/Creatinine Ratio 9.9 L Glucose 97 Calcium 8.7 Total Bilirubin 0.80 AST 21 ALT 20 Alkaline Phosphatase 68 Total Protein 6.9 Albumin 3.5 Globulin 3.4 Albumin/Globulin Ratio 1.0 Lipase 23 Radiography Diagnostic Testing: Clinical Impression(s) from Imaging Studies Abdomen/Pelvis CT 05/26/23 10:02 IMPRESSION: 1. Sigmoid diverticulosis with mild thickening of the distal sigmoid. Early diverticulitis cannot be excluded. Underlying mass cannot be entirely excluded on this exam. No evidence of drainable abscess. 2. Otherwise no focal acute inflammatory process. Electronically Signed: Emerson Koch MD at 10:30 EDT , Discharge Plan Triage Chief Complaint: General Illness ED Provider: Andrey Guerrero Dx/Rx/DC Orders Clinical Impression: Abdominal pain, Chronic hyponatremia, Diverticulosis Instructions: Abdominal Pain, Hyponatremia Dc, ED Diverticulosis Prescriptions: No Action guaifenesin 1,200 mg tablet extended release 12hr 1,200 mg PO Q12H Qty: 60 6RF losartan 50 mg tablet 50 mg PO DAILY fluticasone propion-salmeterol [Advair Diskus] 500-50 mcg/dose blister with device 1 inh inhalation Q12H Qty: 60 6RF Spiriva Respimat 1.25 mcg/actuation mist 2 puff INHALATION DAILY Qty: 4 11RF albuterol sulfate 90 mcg/actuation HFA aerosol inhaler 1 puff INHALATION Q6H PRN (Reason: SOB) Qty: 8.5 11RF Primary Care Provider: Stone Fortune Referrals: Stone Fortune MD [Primary Care Provider] - 1 Week Activity Restrictions/Additional Instructions: Call and follow-up with Dr. Tavarez. This should recheck your sodium level to make sure it is not getting lower. It has been chronically abnormal in the past. You have diverticulosis on your CAT scan but no obvious signs of infection. Disposition Disposition: Home, Self Care
[2023-05-26 09:26] LABS: Absolute Lymphocyte Count 1.02 X10^3/uL (0.83-4.51); Absolute Neutrophil Count 3.3 X10^3/uL (2.0-7.7); Basophil# 0.08 X10^3/uL; Basophil% 1.5 % (0-1); Eosinophil# 0.11 X10^3/uL; Eosinophils% 2.1 % (0-5); Hematocrit 43.2 % (40-54); Hemoglobin 15.1 g/dL (13.0-16.5); Lymphocyte # 1.02 X10^3/ul (0.83-4.51); Lymphocyte % 19.4 % (19-41); Mean Corpuscular Hgb 31.2 pg (27.0-32.0); Mean Corpuscular Volume 89.3 fL (80-94); Mean Platelet Vol. 8.3 fl (6.2-12.0); Monocyte# 0.72 X10^3/uL; Monocyte% 13.7 % (0-10); NRBC Flagged by Analyzer 0 % (0-5); Neutrophil % 62.9 % (47-70); Platelet Count 322 K/mm3 (150-450); RBC Distribution Width CV 11.9 % (11.6-14.6); RBC Distribution Width SD 38.3 fl (35.1-43.9); Red Blood Count 4.84 M/mm3 (4.6-6.2); White Blood Count 5.3 K/mm3 (4.4-11.0)
[2023-05-26 09:43] LABS: AST(SGOT) 21 U/L (15-37); Alanine Aminotransfer ALT/SGPT 20 U/L (16-61); Albumin, Serum 3.5 g/dL (3.2-5.0); Alkaline Phosphatase 68 U/L (45-117); Anion Gap 7 (5-15); BUN 6 mg/dL (7-18); BUN/Creat Ratio 9.9 RATIO (10-20); Calcium,Total 8.7 mg/dL (8.5-10.1); Chloride 91 mmol/L (98-107); Creatinine, Serum 0.61 mg/dL (0.70-1.30); EST Glomerular Filtration Rate 143 mL/min (>60); Est Glom Filt Rate - Afr Amer 173 mL/min (>60); Globulin 3.4 g/dL (2.2-4.2); Glucose 97 mg/dL (74-106); Lipase 23 U/L (13-75); Potassium 4.2 mmol/L (3.5-5.1); Protein, Total 6.9 g/dL (6.4-8.2); Sodium Level 126 mmol/L (136-145)
--- NOTE | 2023-05-26 10:02 | CT_ITS ---
STUDY: CT ABDOMEN AND PELVIS WITH CONTRAST REASON FOR EXAM: Male, 62 years old. Diffuse abd pain RADIATION DOSAGE (If Supplied By Facility): CTDIvol = ( 9.01 ) mGy, DLP = ( 430.05 ) mGycm TECHNIQUE: IV 100mL Isovue-300 was administered. Transaxial images were obtained from the dome of the diaphragm to the symphysis pubis. Multiplanar coronal and sagittal images were reformatted. Individualized Dose Optimization Techniques Were Used For This CT. COMPARISON: No relevant prior comparison study available FINDINGS: The visualized lung bases are unremarkable. The visualized portions of the heart are within normal limits. Normal liver. Normal gallbladder and extrahepatic biliary system. Normal spleen. Normal pancreas. Normal bilateral adrenal glands. The stomach is not well distended. Normal in caliber small bowel loops. Diverticulosis of the sigmoid colon with thickening of the distal sigmoid. Early diverticulitis cannot be excluded. Underlying lesion cannot be excluded. Fecal retention. The appendix is visualized and appears normal. There is diffuse atherosclerotic calcification of the abdominal aorta, without a demonstrated aneurysm. No retroperitoneal adenopathy. Normal right kidney. Normal left kidney. Normal urinary bladder. Prominent prostate. Possible tiny umbilical hernia containing fat. There are diffuse degenerative changes of the visualized lumbar spine. Mild compression of T12 and L1 vertebrae probably chronic. CT/Abdomen/Pelvis W IV Cont ONLY IMPRESSION: 1. Sigmoid diverticulosis with mild thickening of the distal sigmoid. Early diverticulitis cannot be excluded. Underlying mass cannot be entirely excluded on this exam. No evidence of drainable abscess. 2. Otherwise no focal acute inflammatory process. Electronically Signed: Emerson Koch MD at 10:30 EDT ,
[2023-05-26 10:30] VITALS: BP 135/95; PULSE 81; RESP 16; O2SAT 96
[2023-05-26 11:49] VITALS: BP 138/92; PULSE 82; RESP 16; TEMP 36.6; O2SAT 100
== END 2023-05-26 11:50 | disposition home or self-care (01) ==
PROVIDERS: Emergency Provider Emergency Medicine; PCP Family Medicine; Visit Provider Emergency Medicine
DX: R10.9 Unspecified abdominal pain (principal); J44.9 Chronic obstructive pulmonary disease, unspecified; E87.1 Hypo-osmolality and hyponatremia; K57.30 Diverticulosis of large intestine without perforation or abscess without bleeding; F17.210 Nicotine dependence, cigarettes, uncomplicated
CPT/HCPCS: 74177; 80053; 83690; 85025; 99283; Q9967; A4216

== ENCOUNTER 2023-08-24 11:42 | Emergency (ER) | payer OTHER, SELFPAY ==
[2023-08-24 11:44] VITALS: BP 162/98; PULSE 91; PULSE 96; RESP 20; TEMP 35.9; O2SAT 94; O2SAT 95; BMI 22.5
--- NOTE | 2023-08-24 12:15 | EKG12_ITS ---
Test Reason : SOB Blood Pressure : / mmHG Vent. Rate : 088 BPM Atrial Rate : 088 BPM P-R Int : 206 ms QRS Dur : 080 ms QT Int : 340 ms P-R-T Axes : 086 -70 074 degrees QTc Int : 411 ms Normal sinus rhythm 1ST DEGREE AV BLOCK Left axis deviation Septal infarct (cited on or before 20-JUN-2020) Abnormal ECG Confirmed by KEISHA MOORE MD ([id number]), features editor DIANNA LAKE ([id number]) on 08/25/2023 8:07:23 AM Referred By: ARA Confirmed By:KEISHA MOORE MD
--- NOTE | 2023-08-24 12:18 | EX.ED.DYSGE1 ---
HPI <ANGELA Lopez - Last Filed: 08/24/23 13:50> History of Present Illness Chief Complaint: Shortness of Breath Narrative Narrative: Patient is a 62-year-old male with history of COPD who still smokes 1 pack/day, patient also drinks 6-7 beers daily, patient has history of hypertension. Presenting to the emergency department for 1 week of generalized feeling shortness of breath, 2 days of significant noticeable short of breath. Patient states he did mow yesterday, and he struggled. Today, he feels that he cannot take a deep breath, he is wheezing and is here for evaluation. Denies any fever chills nausea or vomiting PFSH <ANGELA Lopez - Last Filed: 08/24/23 13:50> [facility] Medical History (Updated 08/24/23 @ 13:48 by ANGELA Lopez) IBS (irritable bowel syndrome) Hx of colonic polyp Alcohol abuse Hemorrhoids COPD (chronic obstructive pulmonary disease) Hypertension Arthritis Home Medications ?Medication ?Instructions ?Recorded ?Last Taken ?Type guaifenesin 1,200 mg tablet, 1,200 mg PO Q12H #60 tabs 12/23/22 Unknown Rx extended release 12 hr fluticasone 500 mcg-salmeterol 50 1 inh inhalation Q12H #60 ea 01/06/23 Unknown Rx mcg/dose blistr powdr for inhalation (Advair Diskus) tiotropium bromide 1.25 2 puff inhalation DAILY breathing 01/06/23 Unknown Rx mcg/actuation mist for inhalation #4 grams (Spiriva Respimat) albuterol sulfate 90 mcg/actuation 1 puff inhalation Q6H PRN SOB #8.5 01/24/23 Unknown Rx aerosol inhaler grams losartan 50 mg tablet 50 mg PO DAILY 05/26/23 Unknown History amoxicillin 875 mg-potassium 1 tab PO BID #10 tabs 06/24/23 Unknown Rx clavulanate 125 mg tablet prednisone 10 mg tablet 10 mg PO QDAY #30 tabs 06/24/23 Unknown Rx epinephrine 0.3 mg/0.3 mL 0.3 mg IM ONCE PRN 07/07/23 Unknown History injection, auto-injector (EpiPen 2-Jesse) azithromycin 250 mg tablet See Rx Instructions PO .COMPLEX #6 08/24/23 Unknown Rx tabs prednisone 50 mg tablet 50 mg PO DAILY #5 tabs 08/24/23 Unknown Rx Allergy/AdvReac Type Severity Reaction Status Date / Time amlodipine (From Norvasc) Allergy Swelling Verified 08/24/23 12:23 lisinopril Allergy Pain in Verified 08/24/23 12:23 joints tamsulosin Allergy Other Verified 08/24/23 12:23 tolterodine (From Detrol) Allergy Other Verified 08/24/23 12:23 Family History Mother Arthritis Father Diabetes Heart disease Hypertension Surgical History Hx of vasectomy Hx of colonoscopy Hx of appendectomy Social History (Updated 08/24/23 @ 12:21 by Moraima Vera) household members: spouse and children housing: house current occupational status: employed Smoking Status: Current every day smoker tobacco type: cigarettes second hand exposure: Yes alcohol intake: current alcohol intake frequency: 3 or more drinks per day substance use type: does not use caffeine: Yes what type of physical activity do you participate in: none frequency: does not exercise ROS <ANGELA Lopez - Last Filed: 08/24/23 13:50> ROS ED ROS Narrative Constitutional: Negative for fever, chills, weight loss, weakness Eyes: Negative for vision loss, vision change, double vision ENT: Negative for any sore throat, ear pain, congestion Cardiovascular: Negative for any chest pain, tightness, palpitations Respiratory: Negative for any hemoptysis. Positive for cough, dyspnea, dyspnea on exertion, orthopnea Gastrointestinal: Negative for any abdominal pain, nausea, vomiting, diarrhea, constipation, blood in stool, blood in vomit : Negative for any urinary frequency, dysuria, retention, blood in urine Muscle skeletal: Negative for any neck pain, back pain Neurological: Negative for any headache, syncope, dizziness Skin: Negative for any rashes, itching, abrasions, lacerations Psychiatric: Negative for any depression, anxiety, stress, suicidal ideation, homicidal ideation Hematologic: Negative for any excessive bruising, easy bleeding EXAM <ANGELA Lopez - Last Filed: 08/24/23 13:50> Physical Exam Narrative Exam Narrative: Vital signs reviewed. HEET: Head normocephalic atraumatic, TMs clear bilaterally. Posterior pharynx is clear, moist mucous membranes. Nares clear bilaterally. Neck: Supple with no lymphadenopathy or tenderness. No signs of meningismus. Cardiac: Regular rate and rhythm no murmurs gallops or rubs, equal peripheral pulses bilaterally. Respiratory: Diffuse expiratory wheezes throughout pulmonary exam. No chest tenderness. Abdomen: Soft, nontender, nondistended. No abdominal bruit or pulsatile masses. No hepatosplenomegaly Extremities: No peripheral edema, no signs of gross trauma or deformity. Active full range of motion of all extremities. Neuro: Cranial nerves II through XII intact, no focal neurological deficits. Skin: Clean dry and intact with no rash, purpura, petechiae, vesicles or pustules. Backs/flank: No CVA tenderness, no midline spinal tenderness, no deformity. Psych: Normal mood and affect. No SI, HI or acute psychosis. Const Vital Signs: 08/24/23 11:44 08/24/23 11:44 08/24/23 12:19 Temperature 96.7 F L Temperature Source Temporal Pulse Rate 91 96 Respiratory Rate 20 H 20 H Respiratory Effort Blood Pressure 162/98 H 162/98 H Blood Pressure Mean 119 119 Pulse Ox 95 94 Oxygen Delivery Method Room Air Room Air Room Air 08/24/23 12:19 08/24/23 12:19 08/24/23 12:46 Temperature 98 F 97.3 F L Temperature Source Temporal Temporal Pulse Rate 87 89 Respiratory Rate 14 17 Respiratory Effort Normal Non-Labored Short of Breath Blood Pressure 149/82 H 139/89 H Blood Pressure Mean 104 105 Pulse Ox 95 95 Oxygen Delivery Method Room Air Room Air Room Air 08/24/23 13:00 08/24/23 13:55 Temperature 97.3 F L 98 F Temperature Source Temporal Pulse Rate 81 82 Respiratory Rate 17 16 Respiratory Effort Blood Pressure 152/80 H 159/82 H Blood Pressure Mean 104 107 Pulse Ox 95 96 Oxygen Delivery Method Room Air <Dr. Deshawn Dyer, DO - Last Filed: 08/24/23 15:02> Physical Exam Const Vital Signs: 08/24/23 11:44 08/24/23 11:44 08/24/23 12:19 Temperature 96.7 F L Temperature Source Temporal Pulse Rate 91 96 Respiratory Rate 20 H 20 H Respiratory Effort Blood Pressure 162/98 H 162/98 H Blood Pressure Mean 119 119 Pulse Ox 95 94 Oxygen Delivery Method Room Air Room Air Room Air 08/24/23 12:19 08/24/23 12:19 08/24/23 12:46 Temperature 98 F 97.3 F L Temperature Source Temporal Temporal Pulse Rate 87 89 Respiratory Rate 14 17 Respiratory Effort Normal Non-Labored Short of Breath Blood Pressure 149/82 H 139/89 H Blood Pressure Mean 104 105 Pulse Ox 95 95 Oxygen Delivery Method Room Air Room Air Room Air 08/24/23 13:00 08/24/23 13:55 Temperature 97.3 F L 98 F Temperature Source Temporal Pulse Rate 81 82 Respiratory Rate 17 16 Respiratory Effort Blood Pressure 152/80 H 159/82 H Blood Pressure Mean 104 107 Pulse Ox 95 96 Oxygen Delivery Method Room Air MDM <ANGELA Lopez - Last Filed: 08/24/23 13:50> [facility] Lab Data Labs: Laboratory Results - last 24 hr 08/24/23 12:30 WBC 8.1 RBC 5.00 Hgb 15.6 Hct 44.1 MCV 88.2 MCH 31.2 MCHC 35.4 RDW Std Deviation 38.6 RDW Coeff of Pam 11.9 Plt Count 403 MPV 7.9 Immature Gran % (Auto) 0.500 Neut % (Auto) 70.4 H Lymph % (Auto) 13.8 L [place] % (Auto) 13.1 H Eos % (Auto) 1.0 Baso % (Auto) 1.2 H Absolute Neuts (auto) 5.7 Absolute Lymphs (auto) 1.12 Nucleated RBC % 0 Sodium 127 L Potassium 4.1 Chloride 92 L Carbon Dioxide 29.0 Anion Gap 6 BUN 7 Creatinine 0.55 L Estim Creat Clear Calc 142.07 Est GFR (MDRD) Af Amer 193 Est GFR (MDRD) Non-Af 160 BUN/Creatinine Ratio 12.7 Glucose 79 Calcium 9.3 Total Bilirubin 0.80 AST 22 ALT 23 Alkaline Phosphatase 81 Troponin I High Sens 6 B-Natriuretic Peptide 17.7 Total Protein 7.5 Albumin 3.8 Globulin 3.7 Albumin/Globulin Ratio 1.0 Radiography Diagnostic Testing: Clinical Impression(s) from Imaging Studies Chest X-Ray 08/24/23 13:00 IMPRESSION: 1. Hyperinflated lungs with diffuse interstitial prominence likely secondary to COPD. No focal pneumonia. 2. Chronic appearing compression fractures at the thoracolumbar junction. Electronically Signed: Jules Vargas, at 13:14 EDT , EKG Normal sinus rhythm: Attestation: I personally reviewed and interpreted this EKG as follows: Interpretation: Sinus Rhythm Comments: Normal sinus rhythm, rate of 88 bpm, SD interval 206 ms, QRS duration 80 ms, no acute ST elevation, no acute infarct noted. Treatment and Re-Evaluation :: Differential diagnosis includes however is not limited to: COPD exacerbation, community-acquired pneumonia, COVID-19/influenza/RSV, ACS, IN Patient appears to be in no obvious distress vital signs are stable, patient looks nontoxic. Presenting to the emerged part with difficulty breathing for the last week, much worse over the last 48 hours. Plan initial evaluation, I do believe the patient is suffering more from a COPD exacerbation, patient has expiratory wheezes throughout. Patient at rest has a pulse oxygenation 95%. Patient received breathing treatments, IV steroids, two-view chest x-ray as well as cardiopulmonary workup. Patient will need to be reevaluated to see if he has improved. All radiologic examinations were read, reviewed by the emergency department attending. From these reads, a plan of care will be put in place. Patient's laboratory studies show a normal CBC, patient's chemistries do show some hyponatremia sodium 127, this seems to be baseline for the patient over the last 3 years. Creatinine was unremarkable. Negative troponin. EKG was unremarkable no evidence of ACS or IN. Patient did have improvement of symptoms with breathing treatment as well as steroids. I do believe the patient is mostly is having from more of a COPD exacerbation. Ambulating, patient not dry by 93%. He states he does feel improved and like to go home. At this time ideally this is appropriate. You placed on 5 days of steroids while Z-Jesse. Instructed return for any worsening symptoms. Happy with the plan of care, stable for discharge. <Dr. Deshawn Dyer DO - Last Filed: 08/24/23 15:02> [facility] Lab Data Labs: Laboratory Results - last 24 hr 08/24/23 12:30 WBC 8.1 RBC 5.00 Hgb 15.6 Hct 44.1 MCV 88.2 MCH 31.2 MCHC 35.4 RDW Std Deviation 38.6 RDW Coeff of Pam 11.9 Plt Count 403 MPV 7.9 Immature Gran % (Auto) 0.500 Neut % (Auto) 70.4 H Lymph % (Auto) 13.8 L [place] % (Auto) 13.1 H Eos % (Auto) 1.0 Baso % (Auto) 1.2 H Absolute Neuts (auto) 5.7 Absolute Lymphs (auto) 1.12 Nucleated RBC % 0 Sodium 127 L Potassium 4.1 Chloride 92 L Carbon Dioxide 29.0 Anion Gap 6 BUN 7 Creatinine 0.55 L Estim Creat Clear Calc 142.07 Est GFR (MDRD) Af Amer 193 Est GFR (MDRD) Non-Af 160 BUN/Creatinine Ratio 12.7 Glucose 79 Calcium 9.3 Total Bilirubin 0.80 AST 22 ALT 23 Alkaline Phosphatase 81 Troponin I High Sens 6 B-Natriuretic Peptide 17.7 Total Protein 7.5 Albumin 3.8 Globulin 3.7 Albumin/Globulin Ratio 1.0 Radiography Diagnostic Testing: Clinical Impression(s) from Imaging Studies Chest X-Ray 08/24/23 13:00 IMPRESSION: 1. Hyperinflated lungs with diffuse interstitial prominence likely secondary to COPD. No focal pneumonia. 2. Chronic appearing compression fractures at the thoracolumbar junction. Electronically Signed: Jules Vargas DO at 13:14 EDT , Treatment and Re-Evaluation :: Differential diagnosis includes however is not limited to: COPD exacerbation, community-acquired pneumonia, COVID-19/influenza/RSV, ACS, IN Patient appears to be in no obvious distress vital signs are stable, patient looks nontoxic. Presenting to the emerged part with difficulty breathing for the last week, much worse over the last 48 hours. Plan initial evaluation, I do believe the patient is suffering more from a COPD exacerbation, patient has expiratory wheezes throughout. Patient at rest has a pulse oxygenation 95%. Patient received breathing treatments, IV steroids, two-view chest x-ray as well as cardiopulmonary workup. Patient will need to be reevaluated to see if he has improved. All radiologic examinations were read, reviewed by the emergency department attending. From these reads, a plan of care will be put in place. Patient's laboratory studies show a normal CBC, patient's chemistries do show some hyponatremia sodium 127, this seems to be baseline for the patient over the last 3 years. Creatinine was unremarkable. Negative troponin. EKG was unremarkable no evidence of ACS or IN. Patient did have improvement of symptoms with breathing treatment as well as steroids. I do believe the patient is mostly is having from more of a COPD exacerbation. Ambulating, patient not dry by 93%. He states he does feel improved and like to go home. At this time ideally this is appropriate. You placed on 5 days of steroids while Z-Jesse. Instructed return for any worsening symptoms. Happy with the plan of care, stable for discharge. This patient was seen with a PA/CALL CENTER SUPPORT CONSULTANT Individually assessed they patient including history and physical. I have reviewed everything on the chart that is available and agree with the documentation provided by the PA/CALL CENTER SUPPORT CONSULTANT including discussion about the assessment, treatment plan, discussion, and return precautions. Patient presenting with COPD exacerbation. Differential as above. Patient's lab work was all within normal limits. He was given breathing treatments and Solu-Medrol. EKG interpreted by myself shows sinus rhythm at 88 bpm. Chest x-ray interpreted by myself shows no acute cardiopulmonary process. On reevaluation the patient is improved but still has some slight wheezing. We ambulated him with pulse ox and he maintained 93% while walking. Patient will be started on prednisone and Z-Jesse for home. Return precautions discussed. Discharge Plan Triage Chief Complaint: Shortness of Breath ED Midlevel Provider: Anders Lopez ED Provider: Deshawn Dyer Dx/Rx/DC Orders Clinical Impression: COPD exacerbation, Cough Instructions: Asthma and COPD Prescriptions: New prednisone 50 mg tablet 50 mg PO DAILY Qty: 5 0RF azithromycin 250 mg tablet See Rx Instructions .ROUTE .COMPLEX Qty: 6 0RF Rx Instructions: For 250 mg dose pack: take 500 mg today (day 1), then 250 mg for 4 days (days 2-5) No Action guaifenesin 1,200 mg tablet extended release 12hr 1,200 mg PO Q12H Qty: 60 6RF epinephrine [EpiPen 2-Jesse] 0.3 mg/0.3 mL auto-injector 0.3 mg IM ONCE PRN Rx Instructions: as a single dose; may repeat once losartan 50 mg tablet 50 mg PO DAILY fluticasone propion-salmeterol [Advair Diskus] 500-50 mcg/dose blister with device 1 inh inhalation Q12H Qty: 60 6RF Spiriva Respimat 1.25 mcg/actuation mist 2 puff INHALATION DAILY Qty: 4 11RF albuterol sulfate 90 mcg/actuation HFA aerosol inhaler 1 puff INHALATION Q6H PRN (Reason: SOB) Qty: 8.5 11RF amoxicillin-pot clavulanate 875-125 mg tablet 1 tab PO BID Qty: 10 0RF prednisone 10 mg tablet 10 mg PO QDAY Qty: 30 0RF Rx Instructions: take 4 tabs for three days, then 3 tabs for three days, then 2 tabs for three days, then 1 tab for 3 days Primary Care Provider: Alfonso Fortune Referrals: Alfonso Fortune MD [Primary Care Provider] - Activity Restrictions/Additional Instructions: Take antibiotics till finished take steroids until finished. Both of these pack should be thrown away empty Print Language: Turkmen Disposition Disposition: Home, Self Care Discharge Date/Time: 08/24/23 14:03
[2023-08-24 12:19] VITALS: BP 149/82; PULSE 87; RESP 14; TEMP 36.6; O2SAT 95
[2023-08-24] MEDS: Ipratropium/Albuterol Sulfate 3 ML AMPUL.NEB INHALATION (12:25)
[2023-08-24] MEDS: Albuterol 2.5 MG/3 ML VIAL.NEB. 5 MG INHALATION (12:25)
[2023-08-24 12:46] VITALS: BP 139/89; PULSE 89; RESP 17; TEMP 36.3; O2SAT 95
[2023-08-24 12:47] LABS: Absolute Lymphocyte Count 1.12 X10^3/uL (0.83-4.51); Absolute Neutrophil Count 5.7 X10^3/uL (2.0-7.7); Basophil% 1.2 % (0-1); Eosinophil# 0.08 X10^3/uL; Hematocrit 44.1 % (40-54); Hemoglobin 15.6 g/dL (13.0-16.5); Lymphocyte # 1.12 X10^3/ul (0.83-4.51); Lymphocyte % 13.8 % (19-41); Mean Corp Hgb Conc 35.4 g/dL (32-36); Mean Corpuscular Hgb 31.2 pg (27.0-32.0); Mean Corpuscular Volume 88.2 fL (80-94); Mean Platelet Vol. 7.9 fl (6.2-12.0); Monocyte# 1.06 X10^3/uL; Monocyte% 13.1 % (0-10); NRBC Flagged by Analyzer 0 % (0-5); Neutrophil # 5.71 X10^3/uL (2.7-7.7); Neutrophil % 70.4 % (47-70); Platelet Count 403 K/mm3 (150-450); RBC Distribution Width CV 11.9 % (11.6-14.6); RBC Distribution Width SD 38.6 fl (35.1-43.9); White Blood Count 8.1 K/mm3 (4.4-11.0)
[2023-08-24 13:00] VITALS: BP 152/80; PULSE 81; RESP 17; TEMP 36.3; O2SAT 95
--- NOTE | 2023-08-24 13:00 | RAD_ITS ---
EXAM: XR CHEST, 2 VIEWS CLINICAL INDICATION: cough TECHNIQUE: Frontal and lateral views of the chest. COMPARISON: 11/05/2021 FINDINGS: LUNGS AND PLEURAL SPACES: Hyperinflated lungs with diffuse interstitial prominence likely secondary to COPD. No focal pneumonia. No pneumothorax. No effusion. HEART: No significant abnormality. Cardiac silhouette not enlarged. MEDIASTINUM: Central airways and mediastinal contour are unremarkable. BONES/JOINTS: Chronic appearing compression fractures at the thoracolumbar junction. SOFT TISSUES: No significant abnormality. VASCULATURE: Atherosclerosis. RAD/Chest PA and Lateral IMPRESSION: 1. Hyperinflated lungs with diffuse interstitial prominence likely secondary to COPD. No focal pneumonia. 2. Chronic appearing compression fractures at the thoracolumbar junction. Electronically Signed: Jules Vargas DO at 13:14 EDT ,
[2023-08-24 13:07] LABS: AST(SGOT) 22 U/L (15-37); Alanine Aminotransfer ALT/SGPT 23 U/L (16-61); Albumin, Serum 3.8 g/dL (3.2-5.0); Alkaline Phosphatase 81 U/L (45-117); Anion Gap 6 (5-15); BUN 7 mg/dL (7-18); BUN/Creat Ratio 12.7 RATIO (10-20); Calcium,Total 9.3 mg/dL (8.5-10.1); Chloride 92 mmol/L (98-107); Creatinine, Serum 0.55 mg/dL (0.70-1.30); EST Glomerular Filtration Rate 160 mL/min (>60); Est Glom Filt Rate - Afr Amer 193 mL/min (>60); Estimated Creatinine Clearance 142.07 ml/min; Globulin 3.7 g/dL (2.2-4.2); Glucose 79 mg/dL (74-106); Potassium 4.1 mmol/L (3.5-5.1); Protein, Total 7.5 g/dL (6.4-8.2); Sodium Level 127 mmol/L (136-145); Troponin-I HS 6 pg/mL (3.0-78.0)
[2023-08-24] MEDS: MethylPREDNISolone 125 MG/2 ML Vial IV (13:11)
[2023-08-24] MEDS: 0.9% Normal Saline (1000mL) 1,000 ML 999 ML IV (13:11)
[2023-08-24 13:12] LABS: BNP,B-Type NATRIURETIC PEPTIDE 17.7 pg/mL (0-100)
[2023-08-24 13:20] VITALS: O2SAT 93
[2023-08-24 13:55] VITALS: BP 159/82; PULSE 82; RESP 16; TEMP 36.6; O2SAT 96
== END 2023-08-24 14:03 | disposition home or self-care (01) ==
PROVIDERS: Nurse Practitioner; Emergency Provider Student in an Organized Health Care Education/Training Program; PCP Family Medicine; Visit Provider Student in an Organized Health Care Education/Training Program
DX: J44.1 Chronic obstructive pulmonary disease with (acute) exacerbation (principal); R05.9 Cough, unspecified; F17.210 Nicotine dependence, cigarettes, uncomplicated
CPT/HCPCS: 71046; 80053; 83880; 84484; 85025; 87631; 93005; 96361; 96374; 99284; J7030; A4216

== ENCOUNTER 2023-09-12 22:00 | Inpatient (IN) | payer OTHER, SELFPAY ==
[2023-09-12] VITALS (9 sets, daily range): BP systolic 144–211; BP diastolic 81–100; PULSE 94–104; RESP 16–28; TEMP 36.1–36.8; O2SAT 94–98; BMI 22.9
--- NOTE | 2023-09-12 22:16 | EKG12_ITS ---
Test Reason : DYSRHYTHMIA Blood Pressure : / mmHG Vent. Rate : 099 BPM Atrial Rate : 099 BPM P-R Int : 208 ms QRS Dur : 080 ms QT Int : 318 ms P-R-T Axes : 000 -75 084 degrees QTc Int : 408 ms Normal sinus rhythm Left axis deviation Septal infarct (cited on or before 20-JUN-2020) Abnormal ECG Confirmed by KEISHA MOORE MD ([id number]), image editor DIANNA LAKE ([id number]) on 09/15/2023 11:20:16 AM Referred By: KELLIE Confirmed By:KEISHA MOORE MD
--- NOTE | 2023-09-12 22:23 | ED.VIS.DYS ---
HPI History of Present Illness Chief Complaint: Shortness of Breath Informant: patient Onset/Context/Timing Onset: Days Context: gradual Timing: Continuous Quality: Positive for Wheezing Current Severity: Moderate Maximum Severity: Severe Worsened by: Exertion and Coughing Relieved by: Oxygen and Albuterol Associated Symptoms cough and green sputum Chest Pain: Positive for None Narrative Narrative: 62-year-old male history of COPD on 2 L of oxygen at home. Was admitted last month for COPD flare. States been short of breath and wheezing for about a week. Denies any chest pain other than just feeling tight. Has a productive cough of yellowish sputum. No blood. No fever. No leg pain or swelling. PE Risk Factors: Negative for Cancer, OCP + Smoking + > 35, Prior DVT or PE, Recent immobilization, Recent surgery or Recent travel Prior similar symptoms: Yes Recent Illness/Hospitalization: Yes PFSH PFSH Medical History IBS (irritable bowel syndrome) Hx of colonic polyp Alcohol abuse Hemorrhoids COPD (chronic obstructive pulmonary disease) Hypertension Arthritis Home Medications ?Medication ?Instructions ?Recorded ?Last Taken ?Type guaifenesin 1,200 mg tablet, 1,200 mg PO Q12H #60 tabs 12/23/22 Unknown Rx extended release 12 hr fluticasone 500 mcg-salmeterol 50 1 inh inhalation Q12H #60 ea 01/06/23 Unknown Rx mcg/dose blistr powdr for inhalation (Advair Diskus) tiotropium bromide 1.25 2 puff inhalation DAILY breathing 01/06/23 Unknown Rx mcg/actuation mist for inhalation #4 grams (Spiriva Respimat) albuterol sulfate 90 mcg/actuation 1 puff inhalation Q6H PRN SOB #8.5 01/24/23 Unknown Rx aerosol inhaler grams losartan 50 mg tablet 50 mg PO DAILY 05/26/23 Unknown History amoxicillin 875 mg-potassium 1 tab PO BID #10 tabs 06/24/23 Unknown Rx clavulanate 125 mg tablet prednisone 10 mg tablet 10 mg PO QDAY #30 tabs 06/24/23 Unknown Rx epinephrine 0.3 mg/0.3 mL 0.3 mg IM ONCE PRN 07/07/23 Unknown History injection, auto-injector (EpiPen 2-Jesse) azithromycin 250 mg tablet See Rx Instructions PO .COMPLEX #6 08/24/23 Unknown Rx tabs prednisone 50 mg tablet 50 mg PO DAILY #5 tabs 08/24/23 Unknown Rx Allergy/AdvReac Type Severity Reaction Status Date / Time amlodipine (From Norvasc) Allergy Swelling Verified 09/12/23 22:06 lisinopril Allergy Pain in Verified 09/12/23 22:06 joints tamsulosin Allergy Other Verified 09/12/23 22:06 tolterodine (From Detrol) Allergy Other Verified 09/12/23 22:06 Family History Mother Arthritis Father Diabetes Heart disease Hypertension Surgical History Hx of vasectomy Hx of colonoscopy Hx of appendectomy Social History household members: spouse and children housing: house current occupational status: employed Smoking Status: Current every day smoker tobacco type: cigarettes second hand exposure: Yes alcohol intake: current alcohol intake frequency: 3 or more drinks per day substance use type: does not use caffeine: Yes what type of physical activity do you participate in: none frequency: does not exercise ROS ROS ED ROS Narrative Cough. Shortness of breath. Wheezing. Review of Systems ROS Unobtainable: Denies due to encephalopathy Constitutional Constitutional ED: Denies chills or fever(s) Eyes Eyes: Denies blurry vision ENT ENT ED: Denies ear pain Cardiovascular Cardiovascular: Denies chest pain Respiratory/Chest Respiratory/Chest: Reports cough, dyspnea and sputum Gastrointestinal Gastrointestinal: Denies constipation, nausea or vomiting Genitourinary Genitourinary ED: Denies dysuria or hematuria Musculoskeletal Musculoskeletal: Denies arthralgias or back pain Integumentary Denies abscess or Abrasions Neurologic Neurologic: Denies headache(s) Psychiatric Psychiatric: Denies anxiety Endocrine Endocrinology: Denies cold intolerance Hematologic/Lymphatic Hematologic/Lymphatic: Denies easy bleeding Allergic/Immunologic Allergic/Immunologic ED: Denies mouth swelling, tongue swelling or urticaria EXAM Physical Exam Narrative Exam Narrative: 62-year-old male respiratory distress. Does not need intubated at this time. Vital signs are 211/100. Heart rate 97. Pulse ox 96% on 2 L. Temperature 96.9. He does not look septic or toxic. Significant other at bedside. H EENT exam unremarkable. Unremarkable. Neck nontender no lymphadenopathy. Lungs inspiratory expiratory wheezing throughout. Prolonged expiratory phase. Equal symmetrical. Heart regular rhythm rate about 95 no murmur. Chest wall and ribs nontender. No crepitance. No subcu air. Abdomen soft, nontender, nondistended normal bowel sounds without peritoneal signs. Moving all 4 extremities. 5 out of 5 grain operations manager strength. Calves are nontender without edema or cords. 5 out of 5 grain operations manager strength. Dorsi plantarflexion intact. Back nontender. Patient is awake alert no focal motor deficits. Answering questions following commands. Const Vital Signs: 09/12/23 22:01 09/12/23 22:05 09/12/23 22:06 Temperature 96.9 F L 96.9 F L Temperature Source Temporal Temporal Pulse Rate 97 98 Respiratory Rate 20 H 20 H Respiratory Effort Short of Breath Labored Accessory Muscle Use Pursed Lip Respiratory Pattern Tachypnea Blood Pressure 211/100 H 211/100 H Blood Pressure Mean 137 137 Pulse Ox 96 94 Oxygen Delivery Method Nasal Cannula Nasal Cannula Nasal Cannula Oxygen Flow Rate (L/min) 2 22 2 09/12/23 22:27 09/12/23 22:30 09/12/23 23:11 Temperature Temperature Source Pulse Rate 94 104 H Respiratory Rate 22 H 28 H Respiratory Effort Respiratory Pattern Tachypnea Blood Pressure 144/81 H Blood Pressure Mean 102 Pulse Ox 98 97 Oxygen Delivery Method Nasal Cannula Oxygen Flow Rate (L/min) 2 Positive well nourished and well developed; Negative for obese, cachectic, contractures or unkempt General Appearance ED: well developed and NAD; Negative for unkempt, cachectic, contractures or pallor Nutritional Appearance: Negative for cachectic or obese HEENT Reports moist mucous membranes; Denies dry mucous membranes atraumatic; Negative for trauma or tenderness Mouth ED: No dry mucous membranes Mouth: No dry mucous membranes Eyes PERRL and EOMs intact bilaterally General Eye ED: Negative for pale conjunctiva, scleral icterus or other Neck no lymphadenopathy, supple, no meningeal signs and no JVD General: Negative for tenderness Lymph Lymphatic: Negative for other Chest Wall Chest: Negative for other Resp No normal respiratory effort and No clear to auscultation bilaterally Resp Narrative: Prolonged expiratory phase bilaterally. Increased respiratory effort. Auscultation: wheezes; Negative for rales or rhonchi Cardio regular rate, regular rhythm, S1 normal heart sound, S2 normal heart sound and no murmurs Rate: Negative for bradycardia or tachycardic Rhythm: Negative for abnormal rhythm GI non-tender, non-distended and no masses Inspection: Negative for other Auscultation: normoactive bowel sounds Palpation: soft and tender; Negative for guarding, hepatomegaly, splenomegaly or rebound tenderness present Back/Spine no CVA tenderness and normal to inspection General Back: Negative for CVA tenderness Extremity normal to inspection General Extremety ED: Negative for edema or tenderness General Extremity: Negative for edema Neuro oriented x3 and CN's II-XII intact bilaterally Sensorium / Orientation: alert, oriented to person, oriented to place and oriented to time; Negative for orientation impaired, confused, lethargic or stuporous Speech: speech normal Motor Exam: strength 5/5 throughout Psych mental status grossly normal Appearance: Negative for unkempt Attitude: No agitated Mood & Affect: Negative for depressed Thought Process: normal thought process Skin no wounds General Skin Exam: Negative for jaundice or pallor Lesions: no lesions Rashes: no rashes MDM MDM MDM Narrative Medical decision making narrative: 62-year-old male COPD air on 2 L at home with cough and yellowish sputum. Appears to have COPD flare. Overall pneumonia versus other etiologies. Aerosols with DuoNeb and albuterol. 125 Solu-Medrol IV. Screening labs and chest x-ray. Repeat exam at 11:37 PM. Patient is much improved but he still wheezing and still has increased respiratory effort. Off of oxygen is 88 to 89%. In light of all that I think he needs to be admitted for COPD exacerbation. He also has acute on chronic hyponatremia. states he drinks alcohol frequently which may or may not be the cause of his hyponatremia. He will be given another DuoNeb aerosol and I have the hospitalist on page for admission. Lab Data Attestation: I reviewed the patient's lab results. Lab results narrative: CBC showed a normal white count 9.5. H&H 14 and 41. Platelets 328. Electrolytes showed a sodium of 123. Gap of 10. Normal BUN is 7 creatinine 0.6. Glucose 128. And troponin is 6. Labs: Laboratory Results - last 24 hr 09/12/23 22:06 WBC 9.5 RBC 4.74 Hgb 14.5 Hct 41.9 MCV 88.4 MCH 30.6 MCHC 34.6 RDW Std Deviation 39.0 RDW Coeff of Pam 11.9 Plt Count 328 MPV 8.3 Immature Gran % (Auto) 0.400 Neut % (Auto) 66.8 Lymph % (Auto) 17.8 L [place] % (Auto) 11.6 H Eos % (Auto) 2.5 Baso % (Auto) 0.9 Absolute Neuts (auto) 6.4 Absolute Lymphs (auto) 1.69 Nucleated RBC % 0 Sodium 123 L Potassium 4.1 Chloride 84 L Carbon Dioxide 29.0 Anion Gap 10 BUN 7 Creatinine 0.60 L Estim Creat Clear Calc 132.58 Est GFR (MDRD) Af Amer 177 Est GFR (MDRD) Non-Af 146 BUN/Creatinine Ratio 11.7 Glucose 128 H Calcium 9.2 Troponin I High Sens 6 Radiography Chest X-Ray - ED: 2 View, Read by ED Physician, Read by Radiologist, Heart, Lungs, Mediastinum, Bony Structures, No Acute Disease, Chronic Changes and Left Infiltrate Diagnostic Testing: Clinical Impression(s) from Imaging Studies Chest X-Ray 09/12/23 22:38 IMPRESSION: Hyperinflated lungs with diffuse interstitial prominence although no focal airspace disease is identified likely secondary to COPD. Electronically Signed: Jules Vargas DO at 23:03 EDT , Chest x-ray, 2 views, AP and lateral interpreted both by myself and the radiologist shows chronic changes consistent with COPD. Known pneumonia. No effusions. No pneumothorax. Rhythm Strip Rhythm Strip: Sinus Rhythm Rate: 99 Ectopy: None EKG Initial EKG: Attestation: I personally reviewed and interpreted this EKG as follows: Interpretation: Sinus Rhythm and No Acute Injury Pattern Comments: Normal sinus rhythm rate of 99 no acute signs of KS or ischemia. Discharge Plan Dx/Rx/DC Orders Clinical Impression: Acute exacerbation of chronic obstructive pulmonary disease, Chronic hyponatremia, Alcohol abuse, Hypoxia Disposition Disposition: [facility]
[2023-09-12 22:30] LABS: Absolute Lymphocyte Count 1.69 X10^3/uL (0.83-4.51); Absolute Neutrophil Count 6.4 X10^3/uL (2.0-7.7); Basophil# 0.09 X10^3/uL; Basophil% 0.9 % (0-1); Eosinophil# 0.24 X10^3/uL; Eosinophils% 2.5 % (0-5); Hematocrit 41.9 % (40-54); Hemoglobin 14.5 g/dL (13.0-16.5); Lymphocyte # 1.69 X10^3/ul (0.83-4.51); Lymphocyte % 17.8 % (19-41); Mean Corp Hgb Conc 34.6 g/dL (32-36); Mean Corpuscular Hgb 30.6 pg (27.0-32.0); Mean Corpuscular Volume 88.4 fL (80-94); Mean Platelet Vol. 8.3 fl (6.2-12.0); Monocyte% 11.6 % (0-10); NRBC Flagged by Analyzer 0 % (0-5); Neutrophil # 6.36 X10^3/uL (2.7-7.7); Neutrophil % 66.8 % (47-70); Platelet Count 328 K/mm3 (150-450); RBC Distribution Width CV 11.9 % (11.6-14.6); Red Blood Count 4.74 M/mm3 (4.6-6.2); White Blood Count 9.5 K/mm3 (4.4-11.0)
[2023-09-12] MEDS: Ipratropium/Albuterol Sulfate 3 ML AMPUL.NEB INHALATION ×2 (22:30→23:48)
[2023-09-12] MEDS: Albuterol 2.5 MG/3 ML VIAL.NEB. INHALATION ×3 (22:30→23:00)
--- NOTE | 2023-09-12 22:33 | CPS ---
[2230] x1 Albuterol given to pt. in ER as well
[2023-09-12] MEDS: MethylPREDNISolone 125 MG/2 ML Vial IV (22:35)
--- NOTE | 2023-09-12 22:38 | RAD_ITS ---
EXAM: XR CHEST, 2 VIEWS CLINICAL INDICATION: dyspnea TECHNIQUE: Frontal and lateral views of the chest. COMPARISON: 08/24/2023 FINDINGS: LUNGS AND PLEURAL SPACES: Hyperinflated lungs with diffuse interstitial prominence although no focal airspace disease is identified likely secondary to COPD. No pneumothorax. No effusion. HEART: No significant abnormality. Cardiac silhouette not enlarged. MEDIASTINUM: Central airways and mediastinal contour are unremarkable. BONES/JOINTS: Degenerative changes in the spine. No acute fracture. SOFT TISSUES: No significant abnormality. VASCULATURE: Atherosclerosis. RAD/Chest PA and Lateral IMPRESSION: Hyperinflated lungs with diffuse interstitial prominence although no focal airspace disease is identified likely secondary to COPD. Electronically Signed: Jules Vargas DO at 23:03 EDT ,
[2023-09-12 22:49] LABS: Anion Gap 10 (5-15); BUN 7 mg/dL (7-18); BUN/Creat Ratio 11.7 RATIO (10-20); Calcium,Total 9.2 mg/dL (8.5-10.1); Chloride 84 mmol/L (98-107); EST Glomerular Filtration Rate 146 mL/min (>60); Est Glom Filt Rate - Afr Amer 177 mL/min (>60); Estimated Creatinine Clearance 132.58 ml/min; Glucose 128 mg/dL (74-106); Potassium 4.1 mmol/L (3.5-5.1); Sodium Level 123 mmol/L (136-145); Troponin-I HS 6 pg/mL (3.0-78.0)
--- NOTE | 2023-09-12 23:39 | PCM.HP.STD ---
[facility] - General General Date of Admission: 09/12/23 Date of Service: 09/12/23 Chief Complaint: SOB. HPI Narrative LAUREL OTERO, is a 62 M with a past medical history of essential hypertension, history of tobacco abuse; with subsequent COPD, chronic hypoxic respiratory failure on 2L NC, chronic EtOH Abuse with subsequent chronic hyponatremia; with sodium of 127 mmol/L last admission, IBS, history of COVID-19, history of oral thrush, history of appendectomy, history of colonic polyp, history of vasectomy, OA and recent evaluation here in ER last month for AE COPD in the setting of ongoing tobacco abuse who presents to [facility] ER complaining of SOB. Mr. Otero reports his symptoms began approximately one week prior to admission with the gradual-onset of progressively worsening AVILA that has now escalated to SOB at rest. He also admits to severe cough productive of yellow sputum along with wheezing refractory to his normal regimen plus his rescue inhaler. He was initially refusing to answer medical questions about his medications and current level of EtOH abuse but now he admits to drinking ~8-10 beers/day routinely. There is no report of fever, chills, nausea, vomiting, diarrhea, constipation, excessive free-water intake, recent travel or recent mobilization but he does admit to chest tightness. In the ER he was diagnosed with AE COPD in the setting of ongoing tobacco abuse complicated by clinical evidence of respiratory insufficiency compounded by hypertensive urgency evidenced by elevated blood pressure of 211/100 mmHg present on admission along with laboratory evidence of Akpwo-ds-Fiuxgin Hyponatremia of 123 mmol/L present on admission attributed to his ongoing EtOH Abuse with beer potomania and impending EtOH Withdrawal and he was then admitted to the PCU for ongoing care for a stay that is expected to be greater than 48 hours. [facility] Medical History IBS (irritable bowel syndrome) Hx of colonic polyp Alcohol abuse Hemorrhoids COPD (chronic obstructive pulmonary disease) Hypertension Arthritis Home Medications ?Medication ?Instructions ?Recorded ?Last Taken ?Type guaifenesin 1,200 mg tablet, 1,200 mg PO Q12H #60 tabs 12/23/22 Unknown Rx extended release 12 hr fluticasone 500 mcg-salmeterol 50 1 inh inhalation Q12H #60 ea 01/06/23 Unknown Rx mcg/dose blistr powdr for inhalation (Advair Diskus) tiotropium bromide 1.25 2 puff inhalation DAILY breathing 01/06/23 Unknown Rx mcg/actuation mist for inhalation #4 grams (Spiriva Respimat) albuterol sulfate 90 mcg/actuation 1 puff inhalation Q6H PRN SOB #8.5 01/24/23 Unknown Rx aerosol inhaler grams losartan 50 mg tablet 50 mg PO DAILY 05/26/23 Unknown History amoxicillin 875 mg-potassium 1 tab PO BID #10 tabs 06/24/23 Unknown Rx clavulanate 125 mg tablet prednisone 10 mg tablet 10 mg PO QDAY #30 tabs 06/24/23 Unknown Rx epinephrine 0.3 mg/0.3 mL 0.3 mg IM ONCE PRN 07/07/23 Unknown History injection, auto-injector (EpiPen 2-Jesse) azithromycin 250 mg tablet See Rx Instructions PO .COMPLEX #6 08/24/23 Unknown Rx tabs prednisone 50 mg tablet 50 mg PO DAILY #5 tabs 08/24/23 Unknown Rx Allergy/AdvReac Type Severity Reaction Status Date / Time amlodipine (From Norvasc) Allergy Swelling Verified 09/12/23 22:06 lisinopril Allergy Pain in Verified 09/12/23 22:06 joints tamsulosin Allergy Other Verified 09/12/23 22:06 tolterodine (From Detrol) Allergy Other Verified 09/12/23 22:06 Family History Mother Arthritis Father Diabetes Heart disease Hypertension Surgical History Hx of vasectomy Hx of colonoscopy Hx of appendectomy Social History household members: spouse and children housing: house current occupational status: employed Smoking Status: Current every day smoker tobacco type: cigarettes second hand exposure: Yes alcohol intake: current alcohol intake frequency: 3 or more drinks per day substance use type: does not use caffeine: Yes what type of physical activity do you participate in: none frequency: does not exercise ROS ROS Narrative Review of systems: Constitutional: Patient denies fever or chills. Eyes: Patient denies changes in vision or discharge from eyes. ENT: Patient denies runny nose, sore throat or ear pain. Resp: Patient admits to AVILA that progressed to SOB at rest with wheezing and cough productive of yellow sputum as per HPI. CV: Patient denies chest pain, palpitations or heart racing. GI: Patient denies nausea, vomiting, diarrhea or constipation. : Patient denies dysuria or hematuria. MSK: Patient denies arthralgias or myalgias. Skin: Patient denies abscess, rash or jaundice. Psych: Patient denies symptoms of uncontrolled depression or anxiety. Neuro: Patient denies headache, paresthesias or focal neurologic deficits. Allergy: Patient denies lip swelling, tongue swelling or urticaria. Endocrine: Patient denies polyuria, polydipsia and polyphagia. Hematology: Patient denies easy bleeding or easy bruisability. 14 point ROS otherwise negative except for positives noted above in HPI. Vital Signs Vital Signs Vital Signs: 09/12/23 22:01 09/12/23 22:05 09/12/23 22:06 Temperature 96.9 F L 96.9 F L Temperature Source Temporal Temporal Pulse Rate 97 98 Respiratory Rate 20 H 20 H Respiratory Effort Short of Breath Labored Accessory Muscle Use Pursed Lip Respiratory Pattern Tachypnea Blood Pressure 211/100 H 211/100 H Blood Pressure Mean 137 137 Pulse Ox 96 94 Oxygen Delivery Method Nasal Cannula Nasal Cannula Nasal Cannula Oxygen Flow Rate (L/min) 2 22 2 09/12/23 22:27 09/12/23 22:30 09/12/23 23:11 Temperature Temperature Source Pulse Rate 94 104 H Respiratory Rate 22 H 28 H Respiratory Effort Respiratory Pattern Tachypnea Blood Pressure 144/81 H Blood Pressure Mean 102 Pulse Ox 98 97 Oxygen Delivery Method Nasal Cannula Oxygen Flow Rate (L/min) 2 Weight Weight: 159 lb 13.362 oz Body Mass Index (BMI) 22.9 Physical Exam Const alert, oriented x3, no apparent distress and average body habitus Constitutional Narrative: Patient appears chronically ill and moderate dyspneic. General Appearance: uncooperative HEENT normocephalic, head/scalp atraumatic, hearing grossly normal bilaterally and moist oral mucous membranes Eyes PERRL, EOMs intact bilaterally and conjunctivae normal Neck no lymphadenopathy and supple Resp Resp Narrative: Diminished air entry throughout with prolonged expiratory phase and increased inspiratory effort. Auscultation: wheezes Cardio regular rate and regular rhythm GI normal to inspection, nondistended, normoactive bowel sounds, soft to palpation, non-tender and non-distended Extremity normal to inspection, full ROM and no clubbing, cyanosis or edema Skin Skin Narrative: Patient has no evidence of jaundice, abscess or rash. Neuro oriented x3, CN's II-XII intact bilaterally, moves all extremities and no focal motor deficits Sensorium / Orientation: awake, alert, oriented to person, oriented to place and oriented to time Speech: speech normal Psych affect normal Results Medical Records Data Attestation: I reviewed the patient's medical records Lab / Micro Data Attestation: I reviewed the patient's lab results. 09/13/23 04:23 09/13/23 04:23 Labs: Laboratory Results - last 24 hr 09/12/23 22:06: WBC 9.5, RBC 4.74, Hgb 14.5, Hct 41.9, MCV 88.4, MCH 30.6, MCHC 34.6, RDW Std Deviation 39.0, RDW Coeff of Pam 11.9, Plt Count 328, MPV 8.3, Immature Gran % (Auto) 0.400, Neut % (Auto) 66.8, Lymph % (Auto) 17.8 L, [place] % (Auto) 11.6 H, Eos % (Auto) 2.5, Baso % (Auto) 0.9, Absolute Neuts (auto) 6.4, Absolute Lymphs (auto) 1.69, Nucleated RBC % 0, Sodium 123 L, Potassium 4.1, Chloride 84 L, Carbon Dioxide 29.0, Anion Gap 10, BUN 7, Creatinine 0.60 L, Estim Creat Clear Calc 132.58, Est GFR (MDRD) Af Amer 177, Est GFR (MDRD) Non-Af 146, BUN/Creatinine Ratio 11.7, Glucose 128 H, Calcium 9.2, Troponin I High Sens 6 Rhythm Strip Rhythm Strip: Sinus Rhythm Rate: 99 Ectopy: None Imaging Radiology Impression Chest X-Ray 09/12/23 22:38 IMPRESSION: Hyperinflated lungs with diffuse interstitial prominence although no focal airspace disease is identified likely secondary to COPD. Electronically Signed: Jules Vargas DO at 23:03 EDT , Assessment & Plan Assessment/Plan (1) Acute exacerbation of chronic obstructive pulmonary disease: (2) Insufficiency, respiratory, acute: (3) Smoking greater than 40 pack years: (4) Hypertensive urgency: (5) Chronic hyponatremia: (6) Alcohol abuse: PLAN: Plan 1. AE COPD in the setting of ongoing tobacco abuse - Admit to PCU. Continue IV Solumedrol and add IV Doxycycline with scheduled and prn nebulizers. Tobacco cessation will be strongly encouraged with Nicotine patch offered to control cravings. Give low-dose Tylenol prn [id number] (level 1-5/10) pain or fever. Give Morphine IV prn for severe (level 6-10/10) pain. 2. Nwids-wz-Owwuhfi Respiratory Insufficiency arising from #1 - Wean supplemental oxygen as tolerated. 3. Hypertensive urgency evidenced by elevated blood pressure of 211/100 mmHg present on admission attributable to #1 & #2 - Continue home regimen plus give prn IV Hydralazine for systolic blood pressure > 160 mmHg. 4. Ibphn-ao-Cxkyxyl Hyponatremia of 123 mmol/L present on admission attributed to his ongoing EtOH Abuse with beer potomania and impending EtOH Withdrawal compounding #1 - #3 - Give NS IVF and recheck level q. 6 hours to ensure slow correction of no more than 8-10 mmol/L per 24 hours. Check serum and urine osmolality. EtOH Cessation will be strongly encouraged with patient also placed on EtOH Detox protocol primarily consisting of Phenobarbital taper. 5. History of COVID-19 - Noted. 6. History of oral thrush - Noted with no signs of recurrence. 7. History of appendectomy - Noted. 8. History of colonic polyp - Noted. 9. History of vasectomy - Noted for the sake of completeness. 10. OA - Give low-dose Tylenol prn. 11. DVT prophylaxis - Lovenox 40 mg sq daily. Total time: Approximately 75 minutes. Update: Repeat sodium showed gradual rise to 126 mmol/L so we will continue NS IVF at the current rate. Charges/Coding Visit Charges Inpatient E&M: 12766 Init Hosp L3
[2023-09-13] VITALS (9 sets, daily range): BP systolic 118–174; BP diastolic 75–99; PULSE 95–114; RESP 18–24; TEMP 36.6–37.1; O2SAT 92–96; BMI 22.0; BMI 22.4
[2023-09-13 00:26] LABS: Osmolality, Serum 269 mOsm/KG (280-301)
[2023-09-13] MEDS: Morphine 2 MG/ML Syringe IV ×2 (00:46→20:13)
[2023-09-13] MEDS: 0.9% Normal Saline (1000mL) 1,000 ML 70 ML IV (00:46)
[2023-09-13] MEDS: 0.9% Saline Lock 10 ML Syringe IV ×3 (00:46→20:13)
[2023-09-13] MEDS: Phenobarbital 32.4 MG Tablet 64.8 MG PO ×6 (01:09→20:57)
[2023-09-13] MEDS: Doxycycline 100 MG in Dextrose 5%-Water (250mL Bag) 250 ML 250 MG IV ×3 (01:16→20:57)
[2023-09-13 01:21] LABS: Alcohol, Blood (Medical)-Serum < 3.0 mg/dL
[2023-09-13] MEDS: Mag /Aluminum/Simeth WCH UDC 30 ML ORAL.SUSP PO (01:41)
[2023-09-13 02:27] LABS: Amphetamine Urine VISTA NEGATIVE (<1000 ng/mL); Barbiturate Urine VISTA NEGATIVE (< 200 ng/mL); Benzodiazepine Urine VISTA NEGATIVE (< 200 ng/mL); Cocaine Urine VISTA NEGATIVE (< 300 ng/mL); Ecstacy Urine VISTA NEGATIVE (< 500 ng/mL); Methadone Urine VISTA NEGATIVE (< 300 ng/mL); PCP Urine VISTA NEGATIVE (< 25 ng/mL); THC Urine VISTA NEGATIVE (< 50 ng/mL); Vista UDS pH Range 7
[2023-09-13 02:33] LABS: Osmolality, Urine 123 mOsm/KG
[2023-09-13 04:31] LABS: Absolute Lymphocyte Count 0.21 X10^3/uL (0.83-4.51); Absolute Neutrophil Count 7.5 X10^3/uL (2.0-7.7); Basophil# 0.03 X10^3/uL; Basophil% 0.4 % (0-1); Hematocrit 39.2 % (40-54); Lymphocyte # 0.21 X10^3/ul (0.83-4.51); Lymphocyte % 2.7 % (19-41); Mean Corp Hgb Conc 35.7 g/dL (32-36); Mean Corpuscular Hgb 31.5 pg (27.0-32.0); Mean Corpuscular Volume 88.1 fL (80-94); Mean Platelet Vol. 7.9 fl (6.2-12.0); Monocyte# 0.06 X10^3/uL; Monocyte% 0.8 % (0-10); NRBC Flagged by Analyzer 0 % (0-5); Neutrophil # 7.51 X10^3/uL (2.7-7.7); Neutrophil % 95.8 % (47-70); POSITIVE DIFFERENTIAL YES; Platelet Count 291 K/mm3 (150-450); RBC Distribution Width CV 11.9 % (11.6-14.6); RBC Distribution Width SD 38.9 fl (35.1-43.9); Red Blood Count 4.45 M/mm3 (4.6-6.2); White Blood Count 7.8 K/mm3 (4.4-11.0)
[2023-09-13 05:01] LABS: ALB/GLOB Ratio 0.9 RATIO (0.9-2.4); AST(SGOT) 22 U/L (15-37); Alanine Aminotransfer ALT/SGPT 20 U/L (16-61); Albumin, Serum 3.3 g/dL (3.2-5.0); Alkaline Phosphatase 77 U/L (45-117); Anion Gap 9 (5-15); BUN 6 mg/dL (7-18); BUN/Creat Ratio 9.3 RATIO (10-20); Calcium,Total 8.6 mg/dL (8.5-10.1); Chloride 89 mmol/L (98-107); Creatinine, Serum 0.64 mg/dL (0.70-1.30); EST Glomerular Filtration Rate 134 mL/min (>60); Est Glom Filt Rate - Afr Amer 162 mL/min (>60); Estimated Creatinine Clearance 119.29 ml/min; Globulin 3.6 g/dL (2.2-4.2); Glucose 169 mg/dL (74-106); Magnesium 2.1 mg/dL (1.6-2.6); Protein, Total 6.9 g/dL (6.4-8.2); Sodium Level 126 mmol/L (136-145); Thyroid Stim Hormone (TSH) 0.58 uIU/mL (0.358-3.74)
[2023-09-13] MEDS: Ipratropium/Albuterol Sulfate 3 ML AMPUL.NEB INHALATION ×3 (06:30→19:19)
--- NOTE | 2023-09-13 08:56 | PN.HOSP_ITS ---
Reason for Visit Reason for Visit: Diagnoses Hypo-osmolality and hyponatremia (09/12/23) Alcohol abuse, uncomplicated (09/12/23) Nicotine dependence, cigarettes, uncomplicated (09/12/23) Hypertensive urgency (09/12/23) Chronic obstructive pulmonary disease with (acute) exacerbation (09/12/23) Other abnormalities of breathing (09/12/23) Subjective Subjective Patient with some abdominal cramping and bloating, breathing improving, did not endorse any other acute complaints. Objective Data Objective Data Vital Signs: Vital Signs Temp Pulse Resp BP Pulse Ox O2 Del Method O2 Flow Rate 98.0 F 95 20 H 137/91 H 94 Nasal Cannula 2 09/13/23 06:50 09/13/23 06:50 09/13/23 06:50 09/13/23 06:50 09/13/23 06:50 09/13/23 06:50 09/13/23 06:50 Oxygen Flow Rate (L/min) 2 Oxygen Delivery Method Nasal Cannula Weight: 70.8 kg Body Mass Index (BMI) 22.4 Intake & Output: Intake and Output for Last 24 Hours 09/11/23 09/12/23 09/13/23 23:59 23:59 23:59 Intake Total 295 / 295 Output Total 400 / 400 Balance -105 / -105 Lab / Micro Data 09/13/23 04:23 09/13/23 11:54 Labs: Laboratory Results - last 24 hr 09/12/23 22:06: WBC 9.5, RBC 4.74, Hgb 14.5, Hct 41.9, MCV 88.4, MCH 30.6, MCHC 34.6, RDW Std Deviation 39.0, RDW Coeff of Pam 11.9, Plt Count 328, MPV 8.3, Immature Gran % (Auto) 0.400, Neut % (Auto) 66.8, Lymph % (Auto) 17.8 L, [place] % (Auto) 11.6 H, Eos % (Auto) 2.5, Baso % (Auto) 0.9, Absolute Neuts (auto) 6.4, Absolute Lymphs (auto) 1.69, Nucleated RBC % 0, Sodium 123 L, Potassium 4.1, C hloride 84 L, Carbon Dioxide 29.0, Anion Gap 10, BUN 7, Creatinine 0.60 L, Estim Creat Clear Calc 132.58, Est GFR (MDRD) Af Amer 177, Est GFR (MDRD) Non-Af 146, BUN/Creatinine Ratio 11.7, Glucose 128 H, Calcium 9.2, Troponin I High Sens 6 09/12/23 23:55: Serum Osmolality 269 L 09/13/23 00:54: Ethyl Alcohol < 3.0 09/13/23 01:43: Urine Osmolality 123, Urine Opiates Screen POSITIVE H, Urine Methadone Screen NEGATIVE, Ur Barbiturates Screen NEGATIVE, Ur Phencyclidine Scrn NEGATIVE, Ur Amphetamines Screen NEGATIVE, MDMA (Ecstasy) Screen NEGATIVE, U Benzodiazepines Scrn NEGATIVE, Urine Cocaine Screen NEGATIVE, U Cannabinoids Screen NEGATIVE, Ur Drug Screen Comment 09/13/23 04:23: WBC 7.8, RBC 4.45 L, Hgb 14.0, Hct 39.2 L, MCV 88.1, MCH 31.5, MCHC 35.7, RDW Std Deviation 38.9, RDW Coeff of Pam 11.9, Plt Count 291, MPV 7.9, Immature Gran % (Auto) 0.300, Neut % (Auto) 95.8 H, Lymph % (Auto) 2.7 L, [place] % (Auto) 0.8, Eos % (Auto) 0.0, Baso % (Auto) 0.4, Absolute Neuts (auto) 7.5, Absolute Lymphs (auto) 0.21 L, Nucleated RBC % 0, Sodium 126 L, Potassium 4.0, Chloride 89 L, Carbon Dioxide 28.0, Anion Gap 9, BUN 6 L, Creatinine 0.64 L , Estim Creat Clear Calc 119.29, Est GFR (MDRD) Af Amer 162, Est GFR (MDRD) Non- Af 134, BUN/Creatinine Ratio 9.3 L, Glucose 169 H, Calcium 8.6, Phosphorus 3.0, Magnesium 2.1, Total Bilirubin 0.60, AST 22, ALT 20, Alkaline Phosphatase 77, Total Protein 6.9, Albumin 3.3, Globulin 3.6, Albumin/Globulin Ratio 0.9, TSH 0.58 Radiography Diagnostic Testing: Radiology Impression Chest X-Ray 09/12/23 22:38 IMPRESSION: Hyperinflated lungs with diffuse interstitial prominence although no focal airspace disease is identified likely secondary to COPD. Electronically Signed: Jules Vargas DO at 23:03 EDT , Rhythm Strip Rhythm Strip: Sinus Rhythm Rate: 99 Ectopy: None Physical Exam Narrative General: Alert, oriented, no apparent distress HEENT: Atraumatic, normocephalic Eyes: Anicteric, normal conjunctiva, extraocular movements grossly intact Neck: Supple Respiratory: Scattered wheezing with slight increase in respiratory effort Cardiovascular: Regular rate and rhythm GI: Soft, nontender, nondistended Extremities: No edema Musculoskeletal: Moving all extremities Neuro: No overt focal neurological deficits Skin: No rashes appreciated Psych: Cooperative Assessment & Plan Assessment/Plan (1) Acute exacerbation of chronic obstructive pulmonary disease: (2) Smoking greater than 40 pack years: (3) Hypertensive urgency: (4) Chronic hyponatremia: (5) Alcohol abuse: PLAN: Plan #Acute exacerbation of chronic COPD -Admit to floor, continuous O2 monitoring -Chest x-ray: Hyperinflation with diffuse interstitial prominence but no airspace disease -We will obtain COVID, respiratory panel, sputum culture if able -O2 in place, wean as tolerated -IV methylprednisone -Scheduled DuoNebs -Antibiotics: Doxy -Incentive spirometer -Mucinex #Acute on chronic hyponatremia -Mild decrease to Na 123, 125 today which does seem close to baseline -TSH WNL -Serum osm low -Urine osm 123 -Will check urine sodium -Possible beer potomania -improve nutrition -Pt received IVF with slight improvement #Hx chronic EtOH use -Continue thiamine and folic acid -Patient on phenobarb taper #HTN urgency -Patient BP improving, on losartan, also likely improved with phenobarb -Continue present management #Tobacco use -Advise cessation -Nicotine replacement available if desired #DVT ppx: Lovenox subcu Dana Miguel MD Time spent in the patient's overall evaluation,decision-making process, review of diagnostic data, adjustment of management, discussion with other providers, nursing nursing and ancillary staff involved in patient's care documentation, 35 minutes Charges/Coding Visit Charges Inpatient E&M: 32076 Subs Hosp L2
[2023-09-13] MEDS: Zinc Sulfate 50 mg zinc (220 mg) ORAL capsule PO (09:07)
[2023-09-13] MEDS: Losartan Potassium 50 MG Tablet PO (09:07)
[2023-09-13] MEDS: Lactobacillis Acidophilus 2 CAP PO ×2 (09:07→20:56)
[2023-09-13] MEDS: Folic Acid 1 MG Tablet PO (09:07)
[2023-09-13] MEDS: Cholecalciferol (Vit D3) 125 MCG CAPSULE (5,000 UNITS) PO (09:07)
[2023-09-13] MEDS: Pantoprazole Sodium 40 MG Tablet PO (09:07)
[2023-09-13] MEDS: Thiamine Hydrochloride 100 MG Tablet PO (09:07)
[2023-09-13] MEDS: Ascorbic Acid 500 MG Tablet 1000 MG PO ×2 (09:07→16:30)
[2023-09-13] MEDS: MethylPREDNISolone 125 MG/2 ML Vial 60 MG IV (09:15)
[2023-09-13] MEDS: Enoxaparin 40 MG/0.4 ML Syringe SC (09:17)
--- NOTE | 2023-09-13 09:55 | RAD_ITS ---
STUDY: X-RAY - ABDOMEN/PELVIS REASON FOR EXAM: Male, 62 years old. Abd discomfort and bloating TECHNIQUE: Two AP supine views of the abdomen and pelvis. COMPARISON: None. FINDINGS: Normal visualized lung bases. There is an unremarkable bowel gas pattern. There are no dilated loops of bowel. There is moderate stool. There is no demonstrated free abdominal air. Normal soft tissue structures. There is degenerative change of the spine. RAD/Abdomen Single View IMPRESSION: No obstruction. Electronically Signed: Andera Beltran MD at 10:10 EDT ,
--- NOTE | 2023-09-13 10:30 | CASEMGMT ---
Addendum entered by Disha Lezama 09/13/23 12:02: Pt O2 will need verified. Plan for pt to be here through the weekend. Original Note: WHIT ROBINS Assessment: Face to Face with pt for initial transition planning/care coordination assessment. WHIT ROBINS introduced self and role at [facility], pt voices understanding and consents to assessment. Pt is A&O x4 and answers all questions appropriately at this time. Pt resting in bed in no distress. Care providers, pharmacy, and demographics verified/updated. Admitting Dx: AE COPD, Chronic hyponatremia, ETOH Abuse PCP: Tong Specialists: Rahul, Senior Credit Officer. Preferred Pharmacy: [facility] Insurance: [employer] Prescription Benefit: yes LNOK: Living Arrangements: Pt lives with and daughter ADLs: Pt states I with ADLs and IADLs. Transportation: Pt drives self and denies concerns with transportation. DME: Pt states has O2 through [employer], uses 2L at night, nebulizer. HHC/SNF: Denies Hx of. Pt states no concerns with going home at time of dc. Pt states no further concerns/needs. Pt states drinks 8 beers a day and smokes about a pack of cigarettes a day. Would like information regarding cessation programs, notified SW. CM to follow. Advised pt to ask CM if any further question/concerns/needs arise, voices understanding. Pt Goal: Home Plan: Home, will follow plan of care. Justus SHERMAN CM
--- NOTE | 2023-09-13 11:12 | CASEMGMT ---
Social Work As per CM, pt open to resources for smoking cessation and alcohol cessation. SW met w/pt, provided to pt a list of AA meetings, information on [facility] and [facility]. SW also gave pt information on the [place] Smoking Cessation Quit line. No further needs at this time. ZIYAD Patterson
[2023-09-13 12:32] LABS: Anion Gap 8 (5-15); BUN 7 mg/dL (7-18); BUN/Creat Ratio 12.4 RATIO (10-20); Chloride 91 mmol/L (98-107); Creatinine, Serum 0.56 mg/dL (0.70-1.30); EST Glomerular Filtration Rate 156 mL/min (>60); Est Glom Filt Rate - Afr Amer 188 mL/min (>60); Estimated Creatinine Clearance 138.72 ml/min; Glucose 166 mg/dL (74-106); Sodium Level 125 mmol/L (136-145)
[2023-09-13 16:42] LABS: Urine Sodium 14 mmol/L (Not Establ.)
--- NOTE | 2023-09-13 19:52 | EKG12_ITS ---
Test Reason : CP Blood Pressure : / mmHG Vent. Rate : 109 BPM Atrial Rate : 109 BPM P-R Int : 204 ms QRS Dur : 082 ms QT Int : 326 ms P-R-T Axes : 070 -57 063 degrees QTc Int : 439 ms Sinus tachycardia Left axis deviation Septal infarct , age undetermined Abnormal ECG When compared with ECG of 12-SEP-2023 22:02, MANUAL COMPARISON REQUIRED, DATA IS UNCONFIRMED Confirmed by TERESA ACEVES, KEISHA ([id number]), deputy editor in chief KEVON CHRISTINE ([id number]) on 09/15/2023 1:10:42 PM Referred By: Confirmed By:KEISHA MOORE MD
[2023-09-14] VITALS (11 sets, daily range): BP systolic 120–143; BP diastolic 74–85; PULSE 85–105; RESP 16–20; TEMP 36.3–37; O2SAT 92–98; BMI 22.1
[2023-09-14] MEDS: Phenobarbital 32.4 MG Tablet 64.8 MG PO ×6 (00:37→20:09)
[2023-09-14 04:33] LABS: Absolute Lymphocyte Count 0.56 X10^3/uL (0.83-4.51); Absolute Neutrophil Count 9.9 X10^3/uL (2.0-7.7); Basophil# 0.02 X10^3/uL; Basophil% 0.2 % (0-1); Hematocrit 37.9 % (40-54); Lymphocyte # 0.56 X10^3/ul (0.83-4.51); Mean Corp Hgb Conc 34.3 g/dL (32-36); Mean Corpuscular Hgb 30.4 pg (27.0-32.0); Mean Corpuscular Volume 88.8 fL (80-94); Mean Platelet Vol. 8.1 fl (6.2-12.0); Monocyte# 0.68 X10^3/uL; Monocyte% 6.1 % (0-10); NRBC Flagged by Analyzer 0 % (0-5); Neutrophil # 9.92 X10^3/uL (2.7-7.7); Neutrophil % 88.3 % (47-70); POSITIVE DIFFERENTIAL YES; Platelet Count 282 K/mm3 (150-450); RBC Distribution Width CV 12.2 % (11.6-14.6); RBC Distribution Width SD 39.7 fl (35.1-43.9); Red Blood Count 4.27 M/mm3 (4.6-6.2); White Blood Count 11.2 K/mm3 (4.4-11.0)
[2023-09-14] MEDS: 0.9% Saline Lock 10 ML Syringe IV ×2 (04:40→13:25)
[2023-09-14] MEDS: Albuterol 2.5 MG/3 ML VIAL.NEB. INHALATION ×2 (04:58→22:41)
[2023-09-14 05:05] LABS: AST(SGOT) 21 U/L (15-37); Alanine Aminotransfer ALT/SGPT 17 U/L (16-61); Albumin, Serum 3.1 g/dL (3.2-5.0); Alkaline Phosphatase 66 U/L (45-117); Anion Gap 7 (5-15); BUN 10 mg/dL (7-18); Calcium,Total 8.5 mg/dL (8.5-10.1); Chloride 92 mmol/L (98-107); Creatinine, Serum 0.59 mg/dL (0.70-1.30); EST Glomerular Filtration Rate 148 mL/min (>60); Est Glom Filt Rate - Afr Amer 179 mL/min (>60); Estimated Creatinine Clearance 131.67 ml/min; Globulin 3.2 g/dL (2.2-4.2); Glucose 146 mg/dL (74-106); Potassium 4.1 mmol/L (3.5-5.1); Protein, Total 6.3 g/dL (6.4-8.2); Sodium Level 127 mmol/L (136-145)
[2023-09-14] MEDS: Ipratropium/Albuterol Sulfate 3 ML AMPUL.NEB INHALATION ×2 (06:48→19:38)
--- NOTE | 2023-09-14 08:27 | PN.HOSP_ITS ---
Reason for Visit Reason for Visit: Diagnoses Hypo-osmolality and hyponatremia (09/12/23) Alcohol abuse, uncomplicated (09/12/23) Nicotine dependence, cigarettes, uncomplicated (09/12/23) Hypertensive urgency (09/12/23) Chronic obstructive pulmonary disease with (acute) exacerbation (09/12/23) Other abnormalities of breathing (09/12/23) Subjective Subjective Patient reports feeling better than when he arrived but still having difficulties with breathing, has some abdominal bloating after he eats and has not had a bowel movement since Friday, reports the abdominal gas is chronic but bothering him slightly more and when he has significant gas it worsens his breathing Objective Data Objective Data Vital Signs: Vital Signs Temp Pulse Resp BP Pulse Ox O2 Del Method O2 Flow Rate 98.6 F 90 20 H 132/83 H 93 Nasal Cannula 2 09/14/23 04:45 09/14/23 06:49 09/14/23 06:49 09/14/23 04:45 09/14/23 06:49 09/14/23 06:49 09/14/23 06:49 Oxygen Flow Rate (L/min) 2 Oxygen Delivery Method Nasal Cannula Weight: 70.035 kg Body Mass Index (BMI) 22.1 Intake & Output: Intake and Output for Last 24 Hours 09/12/23 09/13/23 09/14/23 23:59 23:59 23:59 Intake Total 1884.16 / 1884.16 Output Total 400 / 400 Balance 1484.16 / 1484.16 Lab / Micro Data 09/14/23 04:26 09/14/23 04:26 Labs: Laboratory Results - last 24 hr 09/13/23 11:54: Sodium 125 L, Potassium 4.0, Chloride 91 L, Carbon Dioxide 26.0, Anion Gap 8, BUN 7, Creatinine 0.56 L, Estim Creat Clear Calc 138.72, Est GFR (MDRD) Af Amer 188, Est GFR (MDRD) Non-Af 156, BUN/Creatinine Ratio 12.4, G lucose 166 H, Calcium 9.0 09/13/23 16:18: Ur Random Sodium 14 09/14/23 04:26: WBC 11.2 H, RBC 4.27 L, Hgb 13.0, Hct 37.9 L, MCV 88.8, MCH 30.4, MCHC 34.3, RDW Std Deviation 39.7, RDW Coeff of Pam 12.2, Plt Count 282, MPV 8.1, Immature Gran % (Auto) 0.400, Neut % (Auto) 88.3 H, Lymph % (Auto) 5.0 L, [place] % (Auto) 6.1, Eos % (Auto) 0.0, Baso % (Auto) 0.2, Absolute Neuts (auto) 9.9 H, Absolute Lymphs (auto) 0.56 L, Nucleated RBC % 0, Sodium 127 L, Potassium 4.1, Chloride 92 L, Carbon Dioxide 28.0, Anion Gap 7, BUN 10, Creatinine 0.59 L, Estim Creat Clear Calc 131.67, Est GFR (MDRD) Af Amer 179, Est GFR (MDRD) Non-Af 148, BUN/Creatinine Ratio 17.0, Glucose 146 H, Calcium 8.5, Total Bilirubin 0.70, AST 21, ALT 17, Alkaline Phosphatase 66, Total Protein 6.3 L, Albumin 3.1 L, Globulin 3.2, Albumin/Globulin Ratio 1.0 Micro: Microbiology 09/13/23 13:26 Mucosa - Nasopharyngeal Respiratory Panel (PCR) - Final 09/13/23 13:26 Nasal Secretion SARS-CoV-2 Antigen (Rapid) - Final Radiography Diagnostic Testing: Radiology Impression KUB X-Ray 09/13/23 09:55 IMPRESSION: No obstruction. Electronically Signed: Andrea Beltran MD at 10:10 EDT Reading Location ID and State: [address] [place] [address] , Service support , Rhythm Strip Rhythm Strip: Sinus Rhythm Rate: 99 Ectopy: None Physical Exam Narrative General: Alert, oriented, no apparent distress HEENT: Atraumatic, normocephalic Eyes: Anicteric, normal conjunctiva, extraocular movements grossly intact Neck: Supple Respiratory: Scattered wheezing with slight increase in respiratory effort, similar but may be slightly better than yesterday Cardiovascular: Regular rate and rhythm GI: Soft, nontender, little bit bloated Extremities: No edema Musculoskeletal: Moving all extremities Neuro: No overt focal neurological deficits Skin: No rashes appreciated Psych: Cooperative Assessment & Plan Assessment/Plan (1) Acute exacerbation of chronic obstructive pulmonary disease: (2) Smoking greater than 40 pack years: (3) Hypertensive urgency: (4) Chronic hyponatremia: (5) Alcohol abuse: PLAN: Plan #Acute exacerbation of chronic COPD -Admit to floor, continuous O2 monitoring -Chest x-ray: Hyperinflation with diffuse interstitial prominence but no airspace disease -We will obtain COVID, respiratory panel, sputum culture if able -O2 in place, wean as tolerated -IV methylprednisone -Scheduled DuoNebs -Antibiotics: Doxy -Incentive spirometer -Mucinex -09/13: On IV Methylpred, p.o. prednisone tomorrow, continue scheduled nebs, continue Doxy, respiratory panel COVID-negative, sputum culture pending #Acute on chronic hyponatremia?likely secondary to SIADH -Mild decrease to Na 123, 125 today which does seem close to baseline -TSH WNL -Serum osm low -Urine osm 123 -Will check urine sodium -Possible beer potomania -improve nutrition -Pt received IVF with slight improvement -09/13: Lab findings suggestive of SIADH, fluid restriction #Hx chronic EtOH use -Continue thiamine and folic acid -Patient on phenobarb taper -09/13: Continue supportive management. Of note patient has been a little bit intermittently tachycardic and studies reviewed and it was noted there were opioids and urine tox on admission does not appear patient received any opioids. Asked patient about substance use and he initially did not respond but then said he did not know how that would be there, unclear if there could be any other aspect of substance use however patient denies at this time. #Abd gas and discomfort -KUB yesterday unremarkable -Will give simethicone with meals to see if this will help, has a stop date of 3 days but can adjust duration pending clinical response #HTN urgency -Patient BP improving, on losartan, also likely improved with phenobarb -Continue present management -09/13: Improving with conservative management -09/13: 128/74 today, continue current management #Tobacco use -Advise cessation -Nicotine replacement available if desired #DVT ppx: Lovenox subcu Dana Miguel MD Time spent in the patient's overall evaluation,decision-making process, review of diagnostic data, adjustment of management, discussion with other providers, nursing nursing and ancillary staff involved in patient's care documentation, 36 minutes Charges/Coding Visit Charges Inpatient E&M: 26491 Subs Hosp L2
[2023-09-14] MEDS: Lactobacillis Acidophilus 2 CAP PO ×2 (10:10→20:10)
[2023-09-14] MEDS: Enoxaparin 40 MG/0.4 ML Syringe SC (10:10)
[2023-09-14] MEDS: Losartan Potassium 50 MG Tablet PO (10:11)
[2023-09-14] MEDS: Thiamine Hydrochloride 100 MG Tablet PO (10:11)
[2023-09-14] MEDS: Zinc Sulfate 50 mg zinc (220 mg) ORAL capsule PO (10:11)
[2023-09-14] MEDS: Pantoprazole Sodium 40 MG Tablet PO (10:11)
[2023-09-14] MEDS: Folic Acid 1 MG Tablet PO (10:11)
[2023-09-14] MEDS: Ascorbic Acid 500 MG Tablet 1000 MG PO ×2 (10:12→16:36)
[2023-09-14] MEDS: Doxycycline 100 MG in Dextrose 5%-Water (250mL Bag) 250 ML 250 MG IV (10:25)
[2023-09-14] MEDS: levoFLOXacin IV 750 MG in Empty Viaflex Q24 100 MG IV (14:54)
[2023-09-14] MEDS: Simethicone 40MG/0.6ML Bottle 80 MG PO (17:59)
[2023-09-15] VITALS (8 sets, daily range): BP systolic 121–148; BP diastolic 73–84; PULSE 87–102; RESP 18–20; TEMP 36.4–36.8; O2SAT 90–98; BMI 22.6
[2023-09-15] MEDS: Phenobarbital 32.4 MG Tablet 64.8 MG PO ×2 (01:18→03:42)
[2023-09-15] MEDS: Ipratropium/Albuterol Sulfate 3 ML AMPUL.NEB INHALATION ×2 (03:24→07:05)
[2023-09-15 05:36] LABS: Absolute Lymphocyte Count 1.59 X10^3/uL (0.83-4.51); Absolute Neutrophil Count 9.2 X10^3/uL (2.0-7.7); Basophil# 0.02 X10^3/uL; Basophil% 0.2 % (0-1); Hematocrit 37.9 % (40-54); Hemoglobin 12.8 g/dL (13.0-16.5); Lymphocyte # 1.59 X10^3/ul (0.83-4.51); Lymphocyte % 13.3 % (19-41); Mean Corp Hgb Conc 33.8 g/dL (32-36); Mean Corpuscular Hgb 30.6 pg (27.0-32.0); Mean Corpuscular Volume 90.7 fL (80-94); Mean Platelet Vol. 8.3 fl (6.2-12.0); Monocyte# 1.03 X10^3/uL; Monocyte% 8.6 % (0-10); NRBC Flagged by Analyzer 0 % (0-5); Neutrophil # 9.24 X10^3/uL (2.7-7.7); Neutrophil % 77.4 % (47-70); Platelet Count 296 K/mm3 (150-450); RBC Distribution Width CV 12.4 % (11.6-14.6); RBC Distribution Width SD 40.8 fl (35.1-43.9); Red Blood Count 4.18 M/mm3 (4.6-6.2); White Blood Count 11.9 K/mm3 (4.4-11.0)
[2023-09-15 06:18] LABS: AST(SGOT) 16 U/L (15-37); Alanine Aminotransfer ALT/SGPT 18 U/L (16-61); Alkaline Phosphatase 61 U/L (45-117); Anion Gap 7 (5-15); BUN 13 mg/dL (7-18); BUN/Creat Ratio 24.3 RATIO (10-20); Calcium,Total 8.5 mg/dL (8.5-10.1); Chloride 92 mmol/L (98-107); Creatinine, Serum 0.54 mg/dL (0.70-1.30); EST Glomerular Filtration Rate 165 mL/min (>60); Est Glom Filt Rate - Afr Amer 200 mL/min (>60); Estimated Creatinine Clearance 145.08 ml/min; Glucose 108 mg/dL (74-106); Potassium 3.7 mmol/L (3.5-5.1); Sodium Level 127 mmol/L (136-145)
--- NOTE | 2023-09-15 07:51 | PCM.PN.HOSP ---
Reason for Visit Reason for Visit: Diagnoses Hypo-osmolality and hyponatremia (09/12/23) Alcohol abuse, uncomplicated (09/12/23) Nicotine dependence, cigarettes, uncomplicated (09/12/23) Hypertensive urgency (09/12/23) Chronic obstructive pulmonary disease with (acute) exacerbation (09/12/23) Other abnormalities of breathing (09/12/23) Subjective Subjective Patient is a 62-year-old gentleman with history of COPD admitted with worsening shortness of breath Objective Data Objective Data Vital Signs: Vital Signs Temp Pulse Resp BP Pulse Ox O2 Del Method O2 Flow Rate 98.2 F 87 18 142/82 H 96 Nasal Cannula 2 09/15/23 03:45 09/15/23 03:45 09/15/23 03:45 09/15/23 03:45 09/15/23 04:00 09/15/23 07:33 09/15/23 07:33 Oxygen Flow Rate (L/min) 2 Oxygen Delivery Method Nasal Cannula Weight: 71.4 kg Body Mass Index (BMI) 22.6 Intake & Output: Intake and Output for Last 24 Hours 09/13/23 09/14/23 09/15/23 23:59 23:59 23:59 Intake Total 1884.16 / 1884.16 1130 / 1250 240 / 240 Output Total 400 / 400 Balance 1484.16 / 1484.16 1130 / 1250 240 / 240 Lab / Micro Data 09/15/23 04:47 09/15/23 04:47 Labs: Laboratory Results - last 24 hr 09/15/23 04:47: WBC 11.9 H, RBC 4.18 L, Hgb 12.8 L, Hct 37.9 L, MCV 90.7, MCH 30.6, MCHC 33.8, RDW Std Deviation 40.8, RDW Coeff of Pam 12.4, Plt Count 296, MPV 8.3, Immature Gran % (Auto) 0.500, Neut % (Auto) 77.4 H, Lymph % (Auto) 13.3 L, [place] % (Auto) 8.6, Eos % (Auto) 0.0, Baso % (Auto) 0.2, Absolute Neuts (auto) 9.2 H, Absolute Lymphs (auto) 1.59, Nucleated RBC % 0, Sodium 127 L, Potassium 3.7, Chloride 92 L, Carbon Dioxide 28.0, Anion Gap 7, BUN 13, Creatinine 0.54 L, Estim Creat Clear Calc 145.08, Est GFR (MDRD) Af Amer 200, Est GFR (MDRD) Non-Af 165, BUN/Creatinine Ratio 24.3 H, Glucose 108 H, Calcium 8.5, Total Bilirubin 0.60, AST 16, ALT 18, Alkaline Phosphatase 61, Total Protein 6.0 L, Albumin 3.0 L, Globulin 3.0, Albumin/Globulin Ratio 1.0 Micro: Microbiology 09/13/23 14:30 Sputum, Expectorated/Coughed Gram Stain - Final 09/13/23 13:26 Mucosa - Nasopharyngeal Respiratory Panel (PCR) - Final 09/13/23 13:26 Nasal Secretion SARS-CoV-2 Antigen (Rapid) - Final Rhythm Strip Rhythm Strip: Sinus Rhythm Rate: 99 Ectopy: None Physical Exam Narrative GENERAL: cooperative HEENT: Atraumatic; normocephalic EYES; Anicteric, Normal Conjunctiva NECK; supple, normal thyroid, RESPIRATORY: Diminished to auscultation CARDIOVASCULAR: Regular S1 S2, GI: soft, normoactive bowel sounds, : No Renal angle tenderness; EXTREMITIES: No edema, no clubbing, MUSCULOSKELETAL: no muscle wasting NEURO: Awake; no lateralizing signs. SKIN: No Rash PSYCH; Flat affect Assessment & Plan Assessment/Plan (1) Acute exacerbation of chronic obstructive pulmonary disease: PLAN: Plan Patient is a 62-year-old gentleman with history of COPD admitted with worsening shortness of breath 1. COPD with acute exacerbation - Patient started on bronchodilator treatment, systemic steroid as well as antibiotic therapy. Patient placed on oxygen titrated to keep saturation greater than 90. 2. Acute on chronic hyponatremia ? Secondary to combination of chronic alcohol use as well as SIADH. 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 History of chronic alcohol use ? Patient placed on phenobarb taper in addition to thiamine and folic acid 4. Acute hypertensive urgency ? Patient is on losartan patient blood pressure stabilized 5. Tobacco dependence - Counseled on cessation, offered nicotine patch for tobacco cravings 6. DVT prophylaxis - On enoxaparin Time spent in the patient's overall evaluation,decision-making process, review of diagnostic data, adjustment of management, discussion with other providers, nursing nursing and ancillary staff involved in patient's care documentation, 36 minutes
--- NOTE | 2023-09-15 09:02 | PCM.DC.SUM ---
Providers Date of Admission: 09/12/23 Primary Care Physician: Dr. Alfonso Fortune MD Reason For Visit: AE COPD, CHRONIC HYPONATREMIA @123 & ETOH ABUSE Diagnosis Discharge Diagnosis (1) Acute exacerbation of chronic obstructive pulmonary disease: Status: Chronic Code(s): J44.1 - Chronic obstructive pulmonary disease with (acute) exacerbation Plan Patient is a 62-year-old gentleman with history of COPD admitted with worsening shortness of breath 1. COPD with acute exacerbation - Patient started on bronchodilator treatment, systemic steroid as well as antibiotic therapy. Patient placed on oxygen titrated to keep saturation greater than 90. 2. Acute on chronic hyponatremia ? Secondary to combination of chronic alcohol use as well as SIADH. 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 History of chronic alcohol use ? Patient placed on phenobarb taper in addition to thiamine and folic acid 4. Acute hypertensive urgency ? Patient is on losartan patient blood pressure stabilized 5. Tobacco dependence - Counseled on cessation, offered nicotine patch for tobacco cravings 6. DVT prophylaxis - On enoxaparin Time spent in the patient's overall evaluation,decision-making process, review of diagnostic data, adjustment of management, discussion with other providers, nursing nursing and ancillary staff involved in patient's care documentation, 36 minutes Medications at Discharge Home Medications guaifenesin 1,200 mg tablet, extended release 12 hr 1,200 mg PO Q12H #60 tabs 12/23/22 fluticasone 500 mcg-salmeterol 50 mcg/dose blistr powdr for inhalation (Advair Diskus) 1 inh inhalation Q12H #60 ea 01/06/23 tiotropium bromide 1.25 mcg/actuation mist for inhalation (Spiriva Respimat) 2 puff inhalation DAILY breathing #4 grams 01/06/23 albuterol sulfate 90 mcg/actuation aerosol inhaler 1 puff inhalation Q6H PRN SOB #8.5 grams 01/24/23 losartan 50 mg tablet 50 mg PO DAILY 05/26/23 epinephrine 0.3 mg/0.3 mL injection, auto-injector (EpiPen 2-Jesse) 0.3 mg IM ONCE PRN 07/07/23 levofloxacin 750 mg tablet 750 mg PO DAILY #5 tabs 09/15/23 prednisone 20 mg tablet 20 mg PO BID #14 tabs 09/15/23 Physical Exam Narrative GENERAL: cooperative HEENT: Atraumatic; normocephalic EYES; Anicteric, Normal Conjunctiva NECK; supple, normal thyroid, RESPIRATORY: Diminished to auscultation CARDIOVASCULAR: Regular S1 S2, GI: soft, normoactive bowel sounds, : No Renal angle tenderness; EXTREMITIES: No edema, no clubbing, MUSCULOSKELETAL: no muscle wasting NEURO: Awake; no lateralizing signs. SKIN: No Rash PSYCH; Flat affect Weight / BMI Weight Weight: 71.4 kg Body Mass Index (BMI) 22.6 ABG / Lab / Microbiology Data 09/15/23 04:47 09/15/23 04:47 Laboratory: Laboratory Results - last 24 hr 09/15/23 04:47: WBC 11.9 H, RBC 4.18 L, Hgb 12.8 L, Hct 37.9 L, MCV 90.7, MCH 30.6, MCHC 33.8, RDW Std Deviation 40.8, RDW Coeff of Pam 12.4, Plt Count 296, MPV 8.3, Immature Gran % (Auto) 0.500, Neut % (Auto) 77.4 H, Lymph % (Auto) 13.3 L, [place] % (Auto) 8.6, Eos % (Auto) 0.0, Baso % (Auto) 0.2, Absolute Neuts (auto) 9.2 H, Absolute Lymphs (auto) 1.59, Nucleated RBC % 0, Sodium 127 L, Potassium 3.7, Chloride 92 L, Carbon Dioxide 28.0, Anion Gap 7, BUN 13, Creatinine 0.54 L, Estim Creat Clear Calc 145.08, Est GFR (MDRD) Af Amer 200, Est GFR (MDRD) Non-Af 165, BUN/Creatinine Ratio 24.3 H, Glucose 108 H, Calcium 8.5, Total Bilirubin 0.60, AST 16, ALT 18, Alkaline Phosphatase 61, Total Protein 6.0 L, Albumin 3.0 L, Globulin 3.0, Albumin/Globulin Ratio 1.0 Microbiology: Microbiology 09/13/23 14:30 Sputum, Expectorated/Coughed Gram Stain - Final 09/13/23 13:26 Mucosa - Nasopharyngeal Respiratory Panel (PCR) - Final 09/13/23 13:26 Nasal Secretion SARS-CoV-2 Antigen (Rapid) - Final D/C Instructions Discharge Diet: No restrictions Discharge Activity: Return to Normal Activity Call your doctor if you observe: Fever of 101 or Higher, Shortness of breath, Fainting spells and Chest pain Meaningful Use Info Meaningful Use Meaningful Use Diagnoses (Choose all that apply): None applicable Ischemic Stroke Statin Dosing Therapy Reference: STATIN DOSE THERAPY REFERENCE: * Patients > 75 years receive moderate or high dose statin therapy. * Patients 75 years or YOUNGER should receive HIGH intensity statin dose unless contraindicated. You will be required to document reason for non-treatment if statin daily dose does not meet guidelines. HIGH DOSE STATIN THERAPY DAILY Atorvastatin > than or = to 40 mg Rosuvastatin > than or = to 20 mg Amlodipine + Atorvastatin > than or = to 2.5/40 mg Ezetimibe + Simvastatin 10/80 mg Simvastatin 80mg Discharge Plan Admission Admit Date/Time: 09/12/23 23:42 Attending Provider: Felix Garcia Primary Care Provider: Alfonso Fortune Consulting Providers: Felix Greenfield; Dana Miguel Discharge Orders/Prescriptions Prescriptions: New levofloxacin 750 mg tablet 750 mg PO DAILY Qty: 5 0RF prednisone 20 mg tablet 20 mg PO BID Qty: 14 0RF Continued guaifenesin 1,200 mg tablet extended release 12hr 1,200 mg PO Q12H Qty: 60 6RF epinephrine [EpiPen 2-Jesse] 0.3 mg/0.3 mL auto-injector 0.3 mg IM ONCE PRN Rx Instructions: as a single dose; may repeat once losartan 50 mg tablet 50 mg PO DAILY fluticasone propion-salmeterol [Advair Diskus] 500-50 mcg/dose blister with device 1 inh inhalation Q12H Qty: 60 6RF Spiriva Respimat 1.25 mcg/actuation mist 2 puff INHALATION DAILY Qty: 4 11RF albuterol sulfate 90 mcg/actuation HFA aerosol inhaler 1 puff INHALATION Q6H PRN (Reason: SOB) Qty: 8.5 11RF Discontinued prednisone 50 mg tablet 50 mg PO DAILY Qty: 5 0RF azithromycin 250 mg tablet See Rx Instructions .ROUTE .COMPLEX Qty: 6 0RF Rx Instructions: For 250 mg dose pack: take 500 mg today (day 1), then 250 mg for 4 days (days 2-5) amoxicillin-pot clavulanate 875-125 mg tablet 1 tab PO BID Qty: 10 0RF prednisone 10 mg tablet 10 mg PO QDAY Qty: 30 0RF Rx Instructions: take 4 tabs for three days, then 3 tabs for three days, then 2 tabs for three days, then 1 tab for 3 days Referrals / Follow Up: Alfonso Fortune MD [Primary Care Provider] - Within 1 Week Disposition Disposition (needs filled in before D/C Order can be placed): Home, Self Care Charges/Coding Visit Charges Inpatient E&M: 36692 Disch Hosp >30min
[2023-09-15] MEDS: levoFLOXacin IV 750 MG in Empty Viaflex Q24 150 MG IV (09:38)
[2023-09-15] MEDS: predniSONE 20 MG Tablet 40 MG PO (09:41)
[2023-09-15] MEDS: Ascorbic Acid 500 MG Tablet 1000 MG PO (09:41)
[2023-09-15] MEDS: Thiamine Hydrochloride 100 MG Tablet PO (09:41)
[2023-09-15] MEDS: Lactobacillis Acidophilus 2 CAP PO (09:41)
[2023-09-15] MEDS: Pantoprazole Sodium 40 MG Tablet PO (09:42)
[2023-09-15] MEDS: Zinc Sulfate 50 mg zinc (220 mg) ORAL capsule PO (09:42)
[2023-09-15] MEDS: Simethicone 40MG/0.6ML Bottle 80 MG PO (09:42)
[2023-09-15] MEDS: Folic Acid 1 MG Tablet PO (09:42)
[2023-09-15] MEDS: Losartan Potassium 50 MG Tablet PO (09:42)
--- NOTE | 2023-09-15 09:42 | PHA.DC_ITS ---
Pharmacy [facility] Pharmacy Service has performed discharge medication reconciliation and counseling for this patient. The patient's discharge medication list was reviewed for discrepancies and discrepancies were resolved. The patient was counseled on the following discharge medications and changes in medications for homegoing were reviewed. 1. LEVOFLOXACIN --> STOP AUGMENTIN AND ZITHROMAX FROM HOME 2. PREDNISONE --> STOP PREVIOUS PREDNISONE ORDERS AT HOME The Reason for Use, instructions for use, and potential side effects were reviewed for all new medications. The patient's questions regarding all of their medications were answered. The patient was able to verbally demonstrate an understanding of their discharge medications. Patient was counselled by Channing Ureña PharmD Candidate Medications at Discharge Home Medications guaifenesin 1,200 mg tablet, extended release 12 hr 1,200 mg PO Q12H #60 tabs 12/23/22 fluticasone 500 mcg-salmeterol 50 mcg/dose blistr powdr for inhalation (Advair Diskus) 1 inh inhalation Q12H #60 ea 01/06/23 tiotropium bromide 1.25 mcg/actuation mist for inhalation (Spiriva Respimat) 2 puff inhalation DAILY breathing #4 grams 01/06/23 albuterol sulfate 90 mcg/actuation aerosol inhaler 1 puff inhalation Q6H PRN SOB #8.5 grams 01/24/23 losartan 50 mg tablet 50 mg PO DAILY 05/26/23 epinephrine 0.3 mg/0.3 mL injection, auto-injector (EpiPen 2-Jesse) 0.3 mg IM ONCE PRN 07/07/23 levofloxacin 750 mg tablet 750 mg PO DAILY #5 tabs 09/15/23 prednisone 20 mg tablet 20 mg PO BID #14 tabs 09/15/23
--- NOTE | 2023-09-15 09:43 | CASEMGMT ---
Pt has an order for DC placed. TC to ish [facility] current home O2 order states 2L HS only via [place]. Per the testing lead, pt did not require an increased demand for oxygen, therefore an updated Rx is not warranted. RN CM to pt room at this time. Pt denies the need for any additional therapy including HHC, SNF, OP TX, or CCN. Pt states that he feels safe discharging home today without any additional needs. Per PT, the pt was able to ambulate 350 ft and his 6-Click score is 20. Pt denies any further questions or concerns at this time and is ready for DC home today.
== END 2023-09-15 12:23 | disposition home or self-care (01) | DRG 191 ==
LOC: ED 23:32 → PCU 09-13 00:14
PROVIDERS: Internal Medicine; Admitting Provider Internal Medicine; Emergency Provider Emergency Medicine; PCP Family Medicine; Visit Provider Internal Medicine
DX: J44.1 Chronic obstructive pulmonary disease with (acute) exacerbation (principal); E22.2 Syndrome of inappropriate secretion of antidiuretic hormone; J96.11 Chronic respiratory failure with hypoxia; Z99.81 Dependence on supplemental oxygen; I16.0 Hypertensive urgency; F10.10 Alcohol abuse, uncomplicated; I10 Essential (primary) hypertension; F17.210 Nicotine dependence, cigarettes, uncomplicated; Z11.52 Encounter for screening for COVID-19; Z79.51 Long term (current) use of inhaled steroids; Z79.52 Long term (current) use of systemic steroids; Z79.899 Other long term (current) drug therapy; Z86.010 Personal history of colon polyps; Z86.16 Personal history of COVID-19
CPT/HCPCS: 36415; 71046; 74018; 80048; 80053; 80307; 82077; 83735; 83930; 83935; 84100; 84300; 84443; 84484; 85025; 87070; 87077; 87205; 87426; 87633; 93005; 94640; 94668; 97161; 99252; 99285; J7030; A4216; G0463

== ENCOUNTER 2023-10-01 07:04 | Emergency (ER) | payer OTHER, SELFPAY ==
[2023-10-01 07:04] VITALS: BP 149/101; PULSE 93; RESP 17; TEMP 37.1; O2SAT 92; O2SAT 95; BMI 25.2
--- NOTE | 2023-10-01 07:13 | EKG12_ITS ---
Test Reason : SOB Blood Pressure : / mmHG Vent. Rate : 084 BPM Atrial Rate : 084 BPM P-R Int : 186 ms QRS Dur : 092 ms QT Int : 356 ms P-R-T Axes : 080 -44 064 degrees QTc Int : 420 ms Normal sinus rhythm Left axis deviation Septal infarct (cited on or before 20-JUN-2020) Abnormal ECG When compared with ECG of 13-SEP-2023 19:53, No significant change was found Confirmed by Francis Asher ([id number]), department editor DIANNA [place] ([id number]) on 10/02/2023 9:13:54 AM Referred By: RED Confirmed By:Francis Asher
[2023-10-01 07:14] VITALS: BP 149/101; PULSE 88; RESP 16; TEMP 37.1; O2SAT 96
--- NOTE | 2023-10-01 07:15 | ED.VIS.DYS ---
HPI History of Present Illness Chief Complaint: Shortness of Breath Informant: patient Onset/Context/Timing Onset: Days Context: gradual Timing: Continuous Quality: Positive for Wheezing Current Severity: Mild Maximum Severity: Mild Worsened by: Nothing Relieved by: Nothing Associated Symptoms cough and white sputum; Negative for fever Chest Pain: Positive for None Narrative Narrative: 62-year-old male history of COPD on 2 L oxygen at home. Recent admission on September 11 for COPD exacerbation. Complaining of increasing shortness of breath. Cough of white sputum. Denies any chest pain. No leg pain or swelling. No hemoptysis. Denies any documented fever. PE Risk Factors: Negative for Cancer, OCP + Smoking + > 35, Prior DVT or PE, Recent surgery or Recent travel Prior similar symptoms: Yes Recent Illness/Hospitalization: Yes PFSH PFSH Medical History IBS (irritable bowel syndrome) Hx of colonic polyp Alcohol abuse Hemorrhoids COPD (chronic obstructive pulmonary disease) Hypertension Arthritis Home Medications ?Medication ?Instructions ?Recorded ?Last Taken ?Type guaifenesin 1,200 mg tablet, 1,200 mg PO Q12H #60 tabs 12/23/22 Unknown Rx extended release 12 hr fluticasone 500 mcg-salmeterol 50 1 inh inhalation Q12H #60 ea 01/06/23 Unknown Rx mcg/dose blistr powdr for inhalation (Advair Diskus) tiotropium bromide 1.25 2 puff inhalation DAILY breathing 01/06/23 Unknown Rx mcg/actuation mist for inhalation #4 grams (Spiriva Respimat) albuterol sulfate 90 mcg/actuation 1 puff inhalation Q6H PRN SOB #8.5 01/24/23 Unknown Rx aerosol inhaler grams losartan 50 mg tablet 50 mg PO DAILY 05/26/23 Unknown History epinephrine 0.3 mg/0.3 mL 0.3 mg IM ONCE PRN 07/07/23 Unknown History injection, auto-injector (EpiPen 2-Jesse) levofloxacin 750 mg tablet 750 mg PO DAILY #5 tabs 09/15/23 Unknown Rx prednisone 20 mg tablet 20 mg PO BID #14 tabs 09/15/23 Unknown Rx prednisone 20 mg tablet 40 mg (2 x 20 mg) PO DAILY COPD 10/01/23 Unknown Rx flare 10 days #20 tabs Allergy/AdvReac Type Severity Reaction Status Date / Time amlodipine (From Norvasc) Allergy Swelling Verified 10/01/23 07:05 lisinopril Allergy Pain in Verified 10/01/23 07:05 joints tamsulosin Allergy Other Verified 10/01/23 07:05 tolterodine (From Detrol) Allergy Other Verified 10/01/23 07:05 Family History Mother Arthritis Father Diabetes Heart disease Hypertension Surgical History Hx of vasectomy Hx of colonoscopy Hx of appendectomy Social History household members: spouse and children housing: house current occupational status: employed Smoking Status: Current every day smoker tobacco type: cigarettes second hand exposure: Yes alcohol intake: current alcohol intake frequency: 3 or more drinks per day substance use type: does not use caffeine: Yes what type of physical activity do you participate in: none frequency: does not exercise ROS ROS ED ROS Narrative Shortness of breath and wheezing. Constitutional Constitutional ED: Denies chills Eyes Eyes: Denies blurry vision ENT ENT ED: Denies ear pain Cardiovascular Cardiovascular: Denies chest pain Respiratory/Chest Respiratory/Chest: Reports cough, dyspnea and sputum Gastrointestinal Gastrointestinal: Denies abdominal pain Genitourinary Genitourinary ED: Denies dysuria Musculoskeletal Musculoskeletal: Denies arthralgias Integumentary Denies abscess Neurologic Neurologic: Denies headache(s) Psychiatric Psychiatric: Denies anxiety Endocrine Endocrinology: Denies cold intolerance Hematologic/Lymphatic Hematologic/Lymphatic: Denies easy bleeding Allergic/Immunologic Allergic/Immunologic ED: Denies mouth swelling EXAM Physical Exam Narrative Exam Narrative: 62-year-old male vital signs are stable afebrile. Pulse ox on room air 95%. H EENT exam unremarkable. Moist membranes. Neck nontender no JVD. 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 Equal symmetrical. He does have pursed lip breathing. Heart regular rhythm rate about 90 no murmur. Chest wall ribs nontender. Abdomen soft nontender. Moving all 4 extremities. Normal regulator operator strength. Normal dorsi plantarflexion. Calves are nontender without edema. Back nontender. Neurologically is awake and alert answering questions and following commands. Const Vital Signs: 10/01/23 07:04 10/01/23 07:04 10/01/23 07:13 Temperature 98.7 F Temperature Source Oral Pulse Rate 93 Respiratory Rate 17 Respiratory Effort Short of Breath Pursed Lip Respiratory Pattern Normal Blood Pressure 149/101 H Blood Pressure Mean 117 Pulse Ox 95 Oxygen Delivery Method Room Air Room Air Nasal Cannula Oxygen Flow Rate (L/min) 10/01/23 07:14 10/01/23 07:33 10/01/23 07:33 Temperature 98.7 F Temperature Source Oral Pulse Rate 88 88 Respiratory Rate 16 16 Respiratory Effort Respiratory Pattern Normal Blood Pressure 149/101 H Blood Pressure Mean 117 Pulse Ox 96 98 Oxygen Delivery Method Room Air Nasal Cannula Oxygen Flow Rate (L/min) 2 10/01/23 08:04 Temperature Temperature Source Pulse Rate 99 Respiratory Rate 16 Respiratory Effort Respiratory Pattern Blood Pressure 163/84 H Blood Pressure Mean 110 Pulse Ox 97 Oxygen Delivery Method Nasal Cannula Oxygen Flow Rate (L/min) 2 Positive well nourished and well developed; Negative for obese, cachectic, contractures or unkempt General Appearance ED: well developed and NAD; Negative for unkempt, cachectic, contractures or pallor Nutritional Appearance: Negative for cachectic or obese HEENT Reports moist mucous membranes; Denies dry mucous membranes atraumatic; Negative for trauma or tenderness Mouth ED: No dry mucous membranes Mouth: No dry mucous membranes Eyes PERRL and EOMs intact bilaterally General Eye ED: Negative for pale conjunctiva, scleral icterus or other Neck no lymphadenopathy, supple, no meningeal signs and no JVD General: Negative for tenderness Lymph Lymphatic: Negative for other Resp No normal respiratory effort and No clear to auscultation bilaterally Resp Narrative: Prolonged expiratory phase. Bilateral expiratory wheezes. No rales or rhonchi. Equal and symmetrical. Pursed lip breathing. Effort and Inspection: Negative for pain with movement Auscultation: wheezes; Negative for rales or rhonchi Cardio regular rate, regular rhythm, S1 normal heart sound, S2 normal heart sound and no murmurs Rate: Negative for bradycardia, tachycardic or other Rhythm: Negative for abnormal rhythm GI non-tender, non-distended and no masses Inspection: Negative for other Palpation: soft; Negative for tender or rebound tenderness present Back/Spine no CVA tenderness and normal to inspection General Back: Negative for CVA tenderness Extremity normal to inspection General Extremety ED: Negative for edema or tenderness General Extremity: Negative for edema Neuro oriented x3 and CN's II-XII intact bilaterally Sensorium / Orientation: alert, oriented to person, oriented to place and oriented to time; Negative for orientation impaired or confused Speech: speech normal Motor Exam: strength 5/5 throughout Psych mental status grossly normal Appearance: Negative for unkempt Attitude: No agitated Mood & Affect: Negative for depressed, anxious or tearful Thought Process: normal thought process Skin no wounds and skin turgor normal General Skin Exam: Negative for jaundice or pallor Lesions: no lesions Rashes: no rashes and No rashes noted Trauma: Negative for abrasion MDM MDM MDM Narrative Medical decision making narrative: 62-year-old male history of COPD on 2 L oxygen at home with increasing shortness of breath the last several days. Expiratory wheezing. He did have a recent admission September 11 for several days due to COPD exacerbation. Currently he is not on steroids. He does have an inhaler at home. He denies any chest pain. We have examined 8:10 AM patient does have improvement after the aerosols and IV steroids. We discussed admission versus discharge to home. He is not hypoxic. He does have a oxygen concentrator at home. We are awaiting his COVID test. Patient I did discuss smoking sensation. He is trying he just says at times he falls back to smoking again. Patient doing well at 8:50 AM. I went over all the test results and both he and I believe his daughter who is now at bedside. Patient by labs and exam is capable of going home. He did not really want to be admitted. So will be discharged with prescription for prednisone. Outpatient follow-up with his primary care provider. History & Record Review Discussion w/independent historian: Patient Additional record(s) reviewed:: Prior inpatient record, Prior outpatient record, Prior ED visit, Prior labs and No prior records Lab Data Attestation: I reviewed the patient's lab results. Lab results narrative: CBC normal. White count of 5. H&H 14 and 40. Platelets 326. Electrolytes shows sodium 124 is a history of chronic hyponatremia. 6. BUN of 3 and creatinine 0.54. Glucose 90 and troponin 8. COVID, flu and RSV negative. Labs: Laboratory Results - last 24 hr 10/01/23 07:22 WBC 5.6 RBC 4.65 Hgb 14.4 Hct 40.9 MCV 88.0 MCH 31.0 MCHC 35.2 RDW Std Deviation 38.5 RDW Coeff of Pam 12.0 Plt Count 326 MPV 8.0 Immature Gran % (Auto) 0.500 Neut % (Auto) 67.6 Lymph % (Auto) 16.4 L [place] % (Auto) 11.4 H Eos % (Auto) 2.7 Baso % (Auto) 1.4 H Absolute Neuts (auto) 3.8 Absolute Lymphs (auto) 0.92 Nucleated RBC % 0 Sodium 124 L Potassium 4.3 Chloride 88 L Carbon Dioxide 30.0 Anion Gap 6 BUN 3 L Creatinine 0.54 L Estim Creat Clear Calc 148.33 Est GFR (MDRD) Af Amer 198 Est GFR (MDRD) Non-Af 164 BUN/Creatinine Ratio 5.6 L Glucose 90 Calcium 8.3 L Troponin I High Sens 8 Radiography Chest X-Ray - ED: 1 View, Read by ED Physician, Normal, Heart, Lungs, Mediastinum, Bony Structures, No Acute Disease and Chronic Changes Diagnostic Testing: Clinical Impression(s) from Imaging Studies Chest X-Ray 10/01/23 07:55 IMPRESSION: Hyperinflation. COPD. No acute abnormality is seen. Electronically Signed: Star Apodaca MD at 8:14 EDT , Chest x-ray, portable, 2 views, shows chronic COPD. Normal cardiac silhouette. Normal mediastinum. No pneumonia. Bilateral lower pleural thickening. No pneumothorax. Rhythm Strip Rhythm Strip: Sinus Rhythm Rate: 84 Ectopy: None EKG Initial EKG: Attestation: I personally reviewed and interpreted this EKG as follows: Interpretation: Sinus Rhythm and No Acute Injury Pattern Comments: Normal sinus rhythm rate 84 no acute signs of NC or ischemia. Discharge Plan Triage Chief Complaint: Shortness of Breath ED Provider: Andrey Guerrero Dx/Rx/DC Orders Clinical Impression: COPD exacerbation, Chronic hyponatremia Instructions: ED COPD Flare Prescriptions: New prednisone 20 mg tablet 40 mg PO DAILY 10 Days Qty: 20 0RF No Action guaifenesin 1,200 mg tablet extended release 12hr 1,200 mg PO Q12H Qty: 60 6RF epinephrine [EpiPen 2-Jesse] 0.3 mg/0.3 mL auto-injector 0.3 mg IM ONCE PRN Rx Instructions: as a single dose; may repeat once losartan 50 mg tablet 50 mg PO DAILY levofloxacin 750 mg tablet 750 mg PO DAILY Qty: 5 0RF prednisone 20 mg tablet 20 mg PO BID Qty: 14 0RF fluticasone propion-salmeterol [Advair Diskus] 500-50 mcg/dose blister with device 1 inh inhalation Q12H Qty: 60 6RF Spiriva Respimat 1.25 mcg/actuation mist 2 puff INHALATION DAILY Qty: 4 11RF albuterol sulfate 90 mcg/actuation HFA aerosol inhaler 1 puff INHALATION Q6H PRN (Reason: SOB) Qty: 8.5 11RF Primary Care Provider: Alfonso Fortune Referrals: Alfonso Fortune MD [Primary Care Provider] - 3-5 Days Activity Restrictions/Additional Instructions: Use your inhaler and nebulizer as needed at home. If your pulse ox is below 90% use your oxygen all the time. Otherwise if your pulse ox is doing well he can just use at night. Prednisone daily 40 mg a day for the next 10 days. Follow-up with your doctor to ensure you are improving Continue your progress of quitting smoking. Print Language: [place] Disposition Disposition: Home, Self Care
[2023-10-01 07:30] LABS: Absolute Lymphocyte Count 0.92 X10^3/uL (0.83-4.51); Absolute Neutrophil Count 3.8 X10^3/uL (2.0-7.7); Basophil# 0.08 X10^3/uL; Basophil% 1.4 % (0-1); Eosinophil# 0.15 X10^3/uL; Eosinophils% 2.7 % (0-5); Hematocrit 40.9 % (40-54); Hemoglobin 14.4 g/dL (13.0-16.5); Lymphocyte # 0.92 X10^3/ul (0.83-4.51); Lymphocyte % 16.4 % (19-41); Mean Corp Hgb Conc 35.2 g/dL (32-36); Monocyte# 0.64 X10^3/uL; Monocyte% 11.4 % (0-10); NRBC Flagged by Analyzer 0 % (0-5); Neutrophil # 3.79 X10^3/uL (2.7-7.7); Neutrophil % 67.6 % (47-70); Platelet Count 326 K/mm3 (150-450); RBC Distribution Width SD 38.5 fl (35.1-43.9); Red Blood Count 4.65 M/mm3 (4.6-6.2); White Blood Count 5.6 K/mm3 (4.4-11.0)
[2023-10-01] MEDS: Albuterol 2.5 MG/3 ML VIAL.NEB. INHALATION ×3 (07:31)
[2023-10-01] MEDS: Ipratropium/Albuterol Sulfate 3 ML AMPUL.NEB INHALATION (07:31)
[2023-10-01 07:33] VITALS: PULSE 88; RESP 16; O2SAT 98
[2023-10-01] MEDS: MethylPREDNISolone 125 MG/2 ML Vial IV (07:35)
[2023-10-01 07:53] LABS: Anion Gap 6 (5-15); BUN 3 mg/dL (7-18); BUN/Creat Ratio 5.6 RATIO (10-20); Calcium,Total 8.3 mg/dL (8.5-10.1); Chloride 88 mmol/L (98-107); Creatinine, Serum 0.54 mg/dL (0.70-1.30); EST Glomerular Filtration Rate 164 mL/min (>60); Est Glom Filt Rate - Afr Amer 198 mL/min (>60); Estimated Creatinine Clearance 148.33 ml/min; Glucose 90 mg/dL (74-106); Potassium 4.3 mmol/L (3.5-5.1); Sodium Level 124 mmol/L (136-145); Troponin-I HS 8 pg/mL (3.0-78.0)
--- NOTE | 2023-10-01 07:55 | RAD_ITS ---
STUDY: X-RAY CHEST REASON FOR EXAM: Male, 62 years old. Dyspnea TECHNIQUE: Single AP portable view of the chest. COMPARISON: Comparison is made with prior study dated September 12, 2023. FINDINGS: EKG electrodes are seen. There is hyperinflation of the lungs consistent with chronic obstructive lung disease (COPD). There is no demonstrated pleural abnormality. Normal size heart. Normal mediastinum and chilo. There is prominence of the pulmonary hilar arteries without peripheral pulmonary vascular congestion, suggesting pulmonary hypertension. Normal visualized aortic arch and descending thoracic aorta. There are degenerative changes of the visualized thoracic spine. Normal visualized ribs, clavicles, and shoulders. There is no demonstrated abnormality of the visualized soft tissue structures of the upper abdomen. RAD/Chest 1 View (Portable) IMPRESSION: Hyperinflation. COPD. No acute abnormality is seen. Electronically Signed: Star Apodaca MD at 8:14 EDT ,
[2023-10-01 08:04] VITALS: BP 163/84; PULSE 99; RESP 16; O2SAT 97
[2023-10-01 08:50] VITALS: BP 163/84; PULSE 93; RESP 18; TEMP 36.7; O2SAT 96
== END 2023-10-01 08:58 | disposition home or self-care (01) ==
PROVIDERS: Emergency Provider Emergency Medicine; PCP Family Medicine; Visit Provider Emergency Medicine
DX: J44.1 Chronic obstructive pulmonary disease with (acute) exacerbation (principal); E87.1 Hypo-osmolality and hyponatremia; I10 Essential (primary) hypertension; F17.210 Nicotine dependence, cigarettes, uncomplicated; Z99.81 Dependence on supplemental oxygen; Z79.51 Long term (current) use of inhaled steroids; Z79.52 Long term (current) use of systemic steroids; Z79.899 Other long term (current) drug therapy
CPT/HCPCS: 71045; 80048; 84484; 85025; 87631; 93005; 94640; 96374; 99283; A4216

== ENCOUNTER 2023-10-06 10:26 | Emergency (ER) | payer OTHER, SELFPAY ==
[2023-10-06 10:27] VITALS: BP 164/85; PULSE 91; RESP 19; TEMP 36.3; O2SAT 95; BMI 22.4
[2023-10-06 12:26] VITALS: BP 154/85; PULSE 101; RESP 18; O2SAT 94
[2023-10-06] MEDS: Morphine 4 MG/ML Syringe IV (12:26)
[2023-10-06] MEDS: Ketorolac 30 MG/ML Syringe IV (12:26)
--- NOTE | 2023-10-06 12:33 | RAD_ITS ---
STUDY: X-RAY CHEST REASON FOR EXAM: Male, 63 years old. Cough dyspnea TECHNIQUE: Single AP portable view of the chest. COMPARISON: Comparison is made with prior study October 01, 2023. FINDINGS: There is hyperinflation of the lungs consistent with chronic obstructive lung disease (COPD). There is no demonstrated pleural abnormality. Normal size heart. Normal mediastinum and chilo. There is prominence of the pulmonary hilar arteries without peripheral pulmonary vascular congestion, suggesting pulmonary hypertension. Normal visualized aortic arch and descending thoracic aorta. Normal visualized thoracic spine. Normal visualized ribs, clavicles, and shoulders. There is no demonstrated abnormality of the visualized soft tissue structures of the upper abdomen. RAD/Chest 1 View (Portable) IMPRESSION: Hyperinflation. The lungs are clear. Electronically Signed: Star Apodaca MD at 13:14 EDT ,
[2023-10-06 12:56] LABS: Anion Gap 6 (5-15); BUN 7 mg/dL (7-18); BUN/Creat Ratio 14.6 RATIO (10-20); Calcium,Total 8.9 mg/dL (8.5-10.1); Chloride 86 mmol/L (98-107); Creatinine, Serum 0.48 mg/dL (0.70-1.30); EST Glomerular Filtration Rate 188 mL/min (>60); Est Glom Filt Rate - Afr Amer 227 mL/min (>60); Glucose 97 mg/dL (74-106); Potassium 3.6 mmol/L (3.5-5.1); Sodium Level 122 mmol/L (136-145)
--- NOTE | 2023-10-06 12:58 | EDS_ITS ---
HPI History of Present Illness Chief Complaint: Shortness of Breath Informant: patient Narrative Narrative: 63-year-old male presenting to the emergency room with back pain. Patient states that he was seen in the emergency department last week for COPD exacerbation was placed on 10 days of prednisone. He states that now when he coughs it makes his back hurt. He notes a history of a compression fracture of the back and states he used to receive back injections. He believes that the coughing is causing spasm of the back musculature. He denies any fevers. He notes that the pain is reproducible with movement coughing deep breathing. He denies any DVT PE risk factors. He does have a history of hyponatremia and states he continues to drink beer though not as often much as used to does have a smoking history. [facility] Medical History IBS (irritable bowel syndrome) Hx of colonic polyp Alcohol abuse Hemorrhoids COPD (chronic obstructive pulmonary disease) Hypertension Arthritis Home Medications ?Medication ?Instructions ?Recorded ?Last Taken ?Type guaifenesin 1,200 mg tablet, 1,200 mg PO Q12H #60 tabs 12/23/22 Unknown Rx extended release 12 hr tiotropium bromide 1.25 2 puff inhalation DAILY breathing 01/06/23 Unknown Rx mcg/actuation mist for inhalation #4 grams (Spiriva Respimat) albuterol sulfate 90 mcg/actuation 1 puff inhalation Q6H PRN SOB #8.5 01/24/23 Unknown Rx aerosol inhaler grams losartan 50 mg tablet 50 mg PO DAILY 05/26/23 Unknown History epinephrine 0.3 mg/0.3 mL 0.3 mg IM ONCE PRN 07/07/23 Unknown History injection, auto-injector (EpiPen 2-Jesse) levofloxacin 750 mg tablet 750 mg PO DAILY #5 tabs 09/15/23 Unknown Rx prednisone 20 mg tablet 20 mg PO BID #14 tabs 09/15/23 Unknown Rx prednisone 20 mg tablet 40 mg (2 x 20 mg) PO DAILY COPD 10/01/23 Unknown Rx flare 10 days #20 tabs cyclobenzaprine 10 mg tablet 10 mg PO TID PRN Muscle Spasm #15 10/06/23 Unknown Rx TABLETS fluticasone 500 mcg-salmeterol 50 1 inh inhalation Q12H #60 ea 10/06/23 Unknown Rx mcg/dose blistr powdr for inhalation (Advair Diskus) hydrocodone-acetaminophen 5-325mg 1 tab PO Q6H PRN PRN Pain 3 days 10/06/23 Unknown Rx 5mg-325mg #12 TABLETS Allergy/AdvReac Type Severity Reaction Status Date / Time amlodipine (From Norvasc) Allergy Swelling Verified 10/06/23 10:29 lisinopril Allergy Pain in Verified 10/06/23 10:29 joints tamsulosin Allergy Other Verified 10/06/23 10:29 tolterodine (From Detrol) Allergy Other Verified 10/06/23 10:29 Family History Mother Arthritis Father Diabetes Heart disease Hypertension Surgical History Hx of vasectomy Hx of colonoscopy Hx of appendectomy Social History household members: spouse and children housing: house current occupational status: employed Smoking Status: Current every day smoker tobacco type: cigarettes second hand exposure: Yes alcohol intake: current alcohol intake frequency: 3 or more drinks per day substance use type: does not use caffeine: Yes what type of physical activity do you participate in: none frequency: does not exercise ROS ROS ED Constitutional Constitutional ED: Denies chills, fever(s) or weight loss Eyes Eyes: Denies change in vision or diplopia ENT ENT ED: Denies ear pain, rhinorrhea or sore throat Cardiovascular Cardiovascular: Denies chest pain, orthopnea, palpitations or racing heartbeat Respiratory/Chest Respiratory/Chest: Reports cough; Denies dyspnea or orthopnea Gastrointestinal Gastrointestinal: Denies abdominal pain, diarrhea, nausea or vomiting Genitourinary Genitourinary ED: Denies dysuria, hematuria or urinary frequency Musculoskeletal Musculoskeletal: Reports back pain; Denies arthralgias, myalgias or neck pain Integumentary Denies abscess or rash Neurologic Neurologic: Denies headache(s) or weakness Psychiatric Psychiatric: Denies anxiety, depression, suicidal ideation or suicidal thoughts Endocrine Endocrinology: Denies polydipsia, polyphagia or polyuria Allergic/Immunologic Allergic/Immunologic ED: Denies mouth swelling, tongue swelling or urticaria EXAM Physical Exam Const Vital Signs: 10/06/23 10:27 10/06/23 12:26 10/06/23 12:42 Temperature 97.3 F L Temperature Source Temporal Pulse Rate 91 101 H Respiratory Rate 19 H 18 Respiratory Pattern Normal Blood Pressure 164/85 H 154/85 H Blood Pressure Mean 111 108 Pulse Ox 95 94 Oxygen Delivery Method Room Air Room Air 10/06/23 13:46 Temperature 98.2 F Temperature Source Pulse Rate 79 Respiratory Rate 18 Respiratory Pattern Blood Pressure 155/89 H Blood Pressure Mean 111 Pulse Ox 94 Oxygen Delivery Method Positive well nourished and well developed General Appearance ED: well developed and NAD HEENT Reports normocephalic, head/scalp atraumatic and moist mucous membranes Eyes PERRL and EOMs intact bilaterally Neck no lymphadenopathy, supple and no JVD Resp normal respiratory effort and clear to auscultation bilaterally Cardio regular rate, regular rhythm and no murmurs GI normal to inspection, nondistended, normoactive bowel sounds and non-tender Palpation: soft Back/Spine no CVA tenderness and normal ROM Back/Spine Narrative: Patient reports tenderness to palpation in the mid thoracic paraspinal musculature. I do not appreciate any visual or tactile soft tissue changes to suggest infection Extremity normal to inspection General Extremety ED: Negative for edema General Extremity: Negative for edema Neuro oriented x3 and CN's II-XII intact bilaterally Sensorium / Orientation: alert Motor Exam: strength 5/5 throughout Psych mental status grossly normal Mood & Affect: Negative for depressed or tearful Skin no rashes or lesions noted and no wounds MDM MDM MDM Narrative Medical decision making narrative: Differential diagnosis includes but not limited to pneumonia pleural effusion malignancy back spasm thoracic myofascial strain hyponatremia SIADH Sodium is 122 chloride 86. My independent interpretation of the chest x-ray is no acute process. I do not appreciate an obvious malignancy or pleural effusion. IV was established and the patient received pain medication. He feels improvement of his symptoms. I think he most likely has a myofascial strain. Can write for some pain medication and muscle relaxants. Would recommend heat. Follow-up with primary care. As far as his hyponatremia advised him to refrain from beer. He is to limit his water intake and have repeat labs with his doctor. History & Record Review Discussion w/independent historian: Patient Additional record(s) reviewed:: Prior labs Lab Data Attestation: I reviewed the patient's lab results. Labs: Laboratory Results - last 24 hr 10/06/23 12:30 Sodium 122 L Potassium 3.6 Chloride 86 L Carbon Dioxide 30.0 Anion Gap 6 BUN 7 Creatinine 0.48 L Estim Creat Clear Calc 159.70 Est GFR (MDRD) Af Amer 227 Est GFR (MDRD) Non-Af 188 BUN/Creatinine Ratio 14.6 Glucose 97 Calcium 8.9 Radiography Diagnostic Testing: Clinical Impression(s) from Imaging Studies Chest X-Ray 10/06/23 12:33 IMPRESSION: Hyperinflation. The lungs are clear. Electronically Signed: Star Apodaca MD at 13:14 EDT , Discharge Plan Triage Chief Complaint: Shortness of Breath Other Complaint: Back ED Provider: Ryan Randhawa Dx/Rx/DC Orders Clinical Impression: COPD (chronic obstructive pulmonary disease), Strain of thoracic back region, Hyponatremia Instructions: ED Back Sprain/Strain Prescriptions: New hydrocodone-acetaminophen 5-325 mg tablet 1 tab PO Q6H PRN PRN (Reason: Pain) 3 Days Qty: 12 0RF cyclobenzaprine 10 mg tablet 10 mg PO TID PRN (Reason: Muscle Spasm) Qty: 15 0RF No Action guaifenesin 1,200 mg tablet extended release 12hr 1,200 mg PO Q12H Qty: 60 6RF epinephrine [EpiPen 2-Jesse] 0.3 mg/0.3 mL auto-injector 0.3 mg IM ONCE PRN Rx Instructions: as a single dose; may repeat once losartan 50 mg tablet 50 mg PO DAILY levofloxacin 750 mg tablet 750 mg PO DAILY Qty: 5 0RF prednisone 20 mg tablet 20 mg PO BID Qty: 14 0RF prednisone 20 mg tablet 40 mg PO DAILY 10 Days Qty: 20 0RF Spiriva Respimat 1.25 mcg/actuation mist 2 puff INHALATION DAILY Qty: 4 11RF albuterol sulfate 90 mcg/actuation HFA aerosol inhaler 1 puff INHALATION Q6H PRN (Reason: SOB) Qty: 8.5 11RF fluticasone propion-salmeterol [Advair Diskus] 500-50 mcg/dose blister with device 1 inh inhalation Q12H Qty: 60 6RF Primary Care Provider: Alfonso Fortune Referrals: Alfonso Fortune MD [Primary Care Provider] - 1 Week if not improving Print Language: Yakut Disposition Disposition: Home, Self Care Discharge Date/Time: 10/06/23 13:16
[2023-10-06 13:46] VITALS: BP 155/89; PULSE 79; RESP 18; TEMP 36.8; O2SAT 94
== END 2023-10-06 13:16 | disposition home or self-care (01) ==
PROVIDERS: Emergency Provider Emergency Medicine; PCP Family Medicine; Visit Provider Emergency Medicine
DX: S29.012A Strain of muscle and tendon of back wall of thorax, initial encounter (principal); J44.9 Chronic obstructive pulmonary disease, unspecified; E87.1 Hypo-osmolality and hyponatremia; I10 Essential (primary) hypertension; Z87.81 Personal history of (healed) traumatic fracture; F17.210 Nicotine dependence, cigarettes, uncomplicated; Z79.51 Long term (current) use of inhaled steroids; F10.10 Alcohol abuse, uncomplicated; X58.XXXA Exposure to other specified factors, initial encounter
CPT/HCPCS: 71045; 80048; 96374; 96375; 96376; 99284; A4216

== ENCOUNTER → 2023-11-03 | Outpatient (CLI) | payer OTHER, SELFPAY | END | disposition home or self-care (01) | LOC: PSN 12:31 | PROVIDERS: PCP Family Medicine; Referring Provider Internal Medicine Critical Care Medicine; Visit Provider Internal Medicine Critical Care Medicine | DX: J44.9 Chronic obstructive pulmonary disease, unspecified (principal); G47.34 Idiopathic sleep related nonobstructive alveolar hypoventilation; F17.210 Nicotine dependence, cigarettes, uncomplicated | CPT/HCPCS: 94060; 94726; 94729 ==

== ENCOUNTER → 2023-11-13 | Outpatient (CLI) | payer OTHER, SELFPAY ==
--- NOTE | 2023-11-13 13:47 | VDLE_ITS ---
Reason For Study: Bilateral leg edema RIGHT LEFT GSV is normal. GSV is normal. CFV is compressible, spontaneous, phasic, CFV is compressible, spontaneous, phasic, competent and demonstrates normal competent, and demonstrates normal augmentation. augmentation. FV is compressible, spontaneous, phasic, FV is compressible, spontaneous, phasic, competent and demonstrates normal competent and demonstrates normal augmentation. augmentation. POP V is compressible, spontaneous, phasic, POP V is compressible, spontaneous, phasic, competent and demonstrates normal competent and demonstrates normal augmentation. augmentation. T/P Trunk is compressible. T/P Trunk is compressible. PTV is compressible. PTV is compressible. RT PerV is compressible. LT PerV is compressible. Procedure Nonvascularized structure is noted in the This is a venous duplex using B-mode, color left popliteal fossa that measures 0.90 x flow and spectral Doppler. 1.92 x 3.77 cm. Exam performed in department. VL/Venous Duplex US - Victor M Extrem Interpretation Summary Deep veins of the bilateral lower extremities are patent and compressible segme ntally. There is no evidence of bilateral lower extremity deep vein thrombosis. The bilateral great saphenous veins appear patent and compressible segmentally. Ordering Physician: Francis Griggs Referring Physician: Alfonso Fortune MD Performed By: Cris Nathan RVT
--- NOTE | 2023-11-13 13:47 | ART_ITS ---
Reason For Study: PVD Procedure A bilateral lower extremity continuous wave Doppler with analog waveform analysis,segmental pressures,and ankle brachial indexes without exercise. Left Segmental Pressures Left brachial= 130mmHg. Left posterior tibial artery = 176mmHg. Left dorsalis pedis artery = 176mmHg. Left digit = 131 mmHg. The left dorsalis pedis waveforms are triphasic. The left posterior tibial artery waveforms are triphasic. Right Segmental Pressures Right brachial= 133mmHg. Right posterior tibial artery = 163mmHg. Right dorsalis pedis artery = 165mmHg. Right digit = 118 mmHg. The right dorsalis pedis waveforms are triphasic. The right posterior tibial artery waveforms are triphasic. Indices The right ankle brachial index by the dorsalis pedis is 1.24. The right ankle brachial index by the posterior tibial artery is 1.23. The right digital-brachial index is 0.89. The left ankle brachial index by the dorsalis pedis is 1.32. The left ankle brachial index by the posterior tibial artery is 1.32. The left digital-brachial index is 0.98. VL/Lower Ext Art Exam w/o Exercis Interpretation Summary Right CONNIE 1.24, normal. TBI and Doppler/PVR waveforms of the right leg normal a t rest. Left OCNNIE 1.32, normal. TBI and Doppler/PVR waveforms of the left leg normal at rest. Ordering Physician: Francis Griggs Referring Physician: Alfonso Fortune MD Performed By: Cris Nathan RVT
== END | disposition home or self-care (01) ==
LOC: CVS 13:45
PROVIDERS: PCP Family Medicine; Referring Provider Student in an Organized Health Care Education/Training Program; Visit Provider Student in an Organized Health Care Education/Training Program
DX: I73.9 Peripheral vascular disease, unspecified (principal); R60.0 Localized edema; I87.2 Venous insufficiency (chronic) (peripheral)
CPT/HCPCS: 93923; 93970

== ENCOUNTER → 2023-12-17 | Outpatient (CLI) | payer OTHER, SELFPAY ==
--- OUTSIDE RECORDS SUMMARY | 2023-12-17 07:13 | XMS RPT_ITS | CCD ---
Author Organization [facility] Care Team Providers Care Detective Private Eye Name Role Phone Xavi Dong MD Primary Care Provider Allergies Allergy Classification Reported Allergen(s) Allergy Type Date of Onset Reaction(s) Facility tolterodine (1 source) tolterodine Drug Allergy 5 Other: See Comments [facility] Work Phone: (1 source) tolterodine; Translations: [TOLTERODINE TARTRATE] Drug Allergy 5 [facility] Medications Current Medications Medication Drug Class(es) Dates Sig (Normalized) Sig (Original) [id number] 200 actuat albuterol 0.09 mg/actuat metered dose inhaler (1 source) beta2-Adrenergic Agonist Start: 12-16-2020 take 2 puff(s) by inhalation every four hours as needed for wheezing albuterol HFA (PROAIR HFA) 90 mcg/actuation inhaler Indications: COPD with exacerbation (HCC) Inhale 2 Puffs as instructed every 4 hours as needed for wheezing/shortness of breath. 1 Each 1 12/16/2020 Active amLODIPine (1 source) Dihydropyridine Calcium Channel Russ AMLODIPINE BESYLATE (NORVASC ORAL) Take by mouth. 0 Active fluticasone / salmeterol (1 source) Corticosteroid, beta2-Adrenergic Agonist Start: 02-08-2016 take 1 puff(s) by mouth twice daily fluticasone-salmet juan antonio (ADVAIR DISKUS) 500-50 mcg/dose dsdv Inhale 1 Puff as instructed twice daily. Rinse and gargle mouth with water after use. 3 Inhaler 3 02/08/2016 Active Losartan (1 source) Angiotensin 2 Receptor Russ losartan potassium (LOSARTAN ORAL) Take by mouth. 0 Active tiotropium (1 source) Anticholinergic TIOTROPIUM BROMI DE (SPIRIVA RESPIMAT INHALATION) Inhale as instructed. 0 Active Problems Active Problems Problem Classification Problem Date Documented Da te Episodic/Chronic Chronic obstructive pulmonary disease and bronchiectasis (1 source) Chronic obstructive lung disease; Translations: [Chronic obstructive pulmonary disease, unspecified] Onset: 07-10-2010 08-31-2014 Chronic Disorders of lipid metabolism (1 source) Mixed hyperlipidemia; Translations: [Mixed hyperlipidemia] Onset: 08-31-2014 02-08-2016 Chronic Essential hypertension (1 source) Essential hypertension; Translations: [Essential (primary) hypertension] Onset: 02-14-2016 03-18-2017 Chronic Hyperplasia of prostate (1 source) Benign prostatic hyperplasia; Translations: [Benign prostatic hyperplasia without lower urinary tract symptoms] Onset: 02-14-2016 02-14-2016 Chronic Other diseases of bladder and urethra (1 source) Overactive bladder; Translations: [Overactive bladder] Onset: 10-12-2014 10-12-2014 Chronic Other gastrointestinal disorders (1 source) Irritable bowel syndrome; Translations: [Irritable bowel syndrome without diarrhea] Onset: 10-12-2014 02-14-2016 Chronic Other lower respiratory disease (1 source) Dyspnea; Translations: [Shortness of breath] 08-24-2023 Episodic Substance-related disorders (1 source) Smoker; Translations: [Nicotine dependence, unspecified, uncomplicated] Onset: 08-31-2014 02-14-2016 Chronic Past or Other Problems Problem Classification Problem Date Documented Da te Episodic/Chronic Other screening for suspected conditions (not mental disorders or infectious disease) (2 sources) Patient encounter status; Translations: [Encounter for screening for malignant neoplasm of prostate] Onset: 09-23-2014 Resolved: 09-23-2014 02-08-2016 Episodic Spondylosis; intervertebral disc disorders; other back problems (1 source) Neck pain; Translations: [Cervicalgia] Onset: 04-03-2015 02-14-2016 Episodic Results Test Name Value Interpretation Reference Range Isaías Lu 08-24-2023 CNOV Office Visit (UCWSTR ) SHANNALAUREL ([id number]) 1960 M Date Time Provider Department 08/24/23 11:30 AM CARA MARQUEZ [facility] During your visit today, we recorded the following information about you: Cara Marquez, DEJANC 08/24/2023 11:59 AM Signed Presents to [facility] care triage with a chief complaint of shortness of breath. He had a cough last week and took an antibiotic he had leftover at his home. He states the cough really almost cleared up. He has now been short of breath, feels like he can even walk in from the car without feeling tightness and shortness of breath in his chest. Yesterday he was having left-sided chest pain as well when he was exerting himself. He is not having any chest pain right now. He has not had a fever. He does have a history of COPD. Discussed with patient due to the shortness of breath and chest pain he was having yesterday and we have no imaging here on Sundays as well as I cannot rule out any cardiac cause for this I would recommend he be seen in the emergency department. Patient declined squad, will drive across the street to [facility]. He is not in acute distress here. Referring Provider: SELF [[id number]] Allergies As of Date: 08/24/2023 Noted Allergy Reaction DETROL (TOLTERODINE TARTRATE) 10/12/2014 14 - Other: See Comments Comments: Depression and agitation. Date Reviewed: 12/16/2020 Reviewed by: Giselle Nieto (Cindy) - Fully Assessed Primary Visit Diagnosis:SOB (shortness of breath) [R06.02] Prescriptions as of 08/24/2023 - albuterol HFA (PROAIR HFA) 90 mcg/actuation inhaler Inhale 2 Puffs as instructed every 4 hours as needed for wheezing/shortness of breath. - losartan potassium (LOSARTAN ORAL) Take by mouth. - TIOTROPIUM BROMIDE (SPIRIVA RESPIMAT INHALATION) Inhale as instructed. - AMLODIPINE BESYLATE (NORVASC ORAL) Take by mouth. - fluticasone-salmeterol (ADVAIR DISKUS) 500-50 mcg/dose dsdv Inhale 1 Puff as instructed twice daily. Rinse and gargle mouth with water after use. Problem List As Of Date 08/24/2023 Noted Resolved COPD (chronic obstructive pulmonary disease) [J*07/10/2010 Smoker [F17.200] 08/31/2014 Mixed hyperlipidemia [E78.2] 08/31/2014 Special screening for malignant neoplasms, colo*09/23/2014 09/23/2014 Overactive bladder [N32.81] 10/12/2014 IBS (irritable bowel syndrome) [K58.9] 10/12/2014 Cervicalgia [M54.2] 04/03/2015 Prostate cancer screening [Z12.5] 02/08/2016 Benign non-nodular prostatic hyperplasia [N40.0]02/14/2016 Well adult exam [Z00.00] 02/14/2016 Essential hypertension [I10] 02/14/2016 Encounter Status:Closed by CARA MARQUEZ on 08/24/23 Normal [facility] Encounters Encounter Date Encounter Type Care Provider Facility Start: 08-24-2023 End: 08-24-2023 ambulatory XAVI DONG Facility:[facility] Start: 08-24-2023 End: 08-24-2023 Patient encounter procedure Cara Marquez PA-C Work Phone: [facility] Comment on above: SOB (shortness of br eath) (Primary Dx) Start: 02-14-2016 Patient encounter status Cara Marquez PA-C Work Phone: [facility] Procedures Date Procedure Procedure Detail Performing Clinician Start: 09-23-2014 Colonoscopy Cara Marquez PA-C Work Phone: Start: 04-22-2012 Lipid 1996 panel - S curry or Plasma Cara Marquez PA-C Work Phone: Plan of Treatment Date Care Activity Detail Author Start: 04-03-2031 Urine microalbumin profile DTaP,Tdap,Td Vaccine (3 - Td or Tdap) [facility] Start: 2026 Pneumococcal vaccination Pneum ococcal Vaccine (3 of 3 - PPSV23 or PCV20) [facility] Start: 10-26-2023 Influenza vaccination Influenz a Vaccine (Season Ended) [facility] Start: 02-24-2023 Behavioral Health Screening Behavioral Health Screening [facility] Start: 10-25-2022 Covid-19 Vaccine ( season) Covid-19 Vaccine ( season) [facility] Start: 2021 RSV Vaccine (1 - 1-d ose 60+ series) RSV Vaccine (1 - 1-dose 60+ series) [facility] Start: 09-23-2017 Screening for malign ant neoplasm of colon [facility] Start: 04-22-2017 Lipid panel Lipid Screening [facility] Start: 04-22-2017 Prostate specific an tigen measurement Prostate Cancer Screening Discussion [facility] Start: 02-19-2017 Screening for malign ant neoplasm of colon Fecal Occult Blood [facility] Start: 05-22-2015 Diabetes Screening Diabetes Screenin g [facility] Start: 10-04-2011 Shingrix Vaccine (1 of 2) Shingrix V accine (1 of 2) [facility] Start: 2006 Screening for malign ant neoplasm of colon [facility] Start: 10-04-1991 Zoledronic acid therapy Alpha- 1 Antitrypsin Deficiency Screening [facility] Start: 10-04-1979 Annual PCP Team Valve Repairer Reclamation flores Disease Visit Annual PCP Team Chronic Disease Visit [facility] Start: 10-04-1979 BP Controlled (<130/80) BP Controlle d (<130/80) [facility] Start: 10-04-1979 Hepatitis C screening Hepatitis C Sc reening [facility] Start: 10-04-1979 HIV screening HIV Screening [facility] Start: 10-04-1979 Spirometry Spirometry [facility] Immunizations Immunization Date Immunization Notes Care Provider Andrew jeff 02-14-2016 influenza virus vacc ine, unspecified formulation Cara Marquez PA-C Work Phone: [facility] 12-21-2013 pneumococcal polysaccharide vaccine, 23 valent Cara Marquez PA-C Work Phone: [facility] 12-21-2013 tetanus toxoid, redu qi diphtheria toxoid, and acellular pertussis vaccine, adsorbed Cara Marquez PA-C Work Phone: [facility] Payers Date Payer Category Payer Private Health Insurance DIONE LESLIE [id number] 2023-Present [phone] [address] [place]TIZ [id number] Open Access [id number] 2023 Private Health Insurance [id number] Social History Date Type Detail Facility Start: 07-07-2006 [facility] Work Phone: History of tobacco use Cigarette Smoker C [facility] Start: 07-07-2006 End: 01-30-2020 Cigarettes smoked current (pack per day) - Reported 0.5 [facility] Start: 07-07-2006 Tobacco use and exposure Smokeless tobacco non-user [facility] Start: 12-16-2020 Alcohol intake Current drinke r of alcohol (finding) [facility] Start: 01-30-2020 End: 12-16-2020 Tobacco use panel [facility] National Score (1-10 0), lower number is lower risk Not on file [facility] Start: 1960 Sex Assigned At Not on file C [facility] Progress note 08-24-2023 Note Date & Type Note Facility 08-24-2023 Note HNO ID: [id number] Author: CARA MARQUEZ PA-C Service: ? Author Type: Physician Computer Systems Analyst Type: Progress Notes Filed: 08/24/2023 11:59 Note Text: Presents to express care triage with a chief complaint of shortness of breath. He had a cough last week and took an antibiotic he had leftover at his home. He states the cough really almost cleared up. He has now been short of breath, feels like he can even walk in from the car without feeling tightness and shortness of breath in his chest. Yesterday he was having left-sided chest pain as well when he was exerting himself. He is not having any chest pain right now. He has not had a fever. He does have a history of COPD. Discussed with patient due to the shortness of breath and chest pain he was having yesterday and we have no imaging here on Sundays as well as I cannot rule out any cardiac cause for this I would recommend he be seen in the emergency department. Patient declined squad, will drive across the street to [facility]. He is not in acute distress here. [facility] History of Present illness Narrative 08-24-2023 Cara Marquez PA-C - 08/24/2023 11:57 AM EDT Note Date & Type Note Facility 08-24-2023 History of Presen t illness Narrative Presents to express care triage with a chief complaint of shortness of breath. He had a cough last week and took an antibiotic he had leftover at his home. He states the cough really almost cleared up. He has now been short of breath, feels like he can even walk in from the car without feeling tightness and shortness of breath in his chest. Yesterday he was having left-sided chest pain as well when he was exerting himself. He is not having any chest pain right now. He has not had a fever. He does have a history of COPD. Discussed with patient due to the shortness of breath and chest pain he was having yesterday and we have no imaging here on Sundays as well as I cannot rule out any cardiac cause for this I would recommend he be seen in the emergency department. Patient declined squad, will drive across the street to [facility]. He is not in acute distress here. documented in this encounter [facility] Evaluation note Note Date & Type Note Facility Evaluation note Diagnosis SOB (shortness of breath)- Primary Shortness of breath documented in this encounter [facility] Summary Purpose Family History No Family History Records Found Advance Directives No Advanced Directives Records Found Additional Source Comments Source Comments (unrecognize d section and content) In the event this informatio n is protected by the Federal Confidentiality of Alcohol and Drug Abuse Patient Records regulations: The Federal rules restrict any use of the information to criminally investigate or prosecute any alcohol or drug abuse patient.[facility] Care Teams (unrecognized sec tion and content) Detective Private Eye Relationship Specialty Start Date End Date Xavi Dong MD [address] [place] [address] PCP - General Family Medicine 03/18/17 (unrecognized sect ion and content) No Status Records Found INFORMATION SOURCE (unrecogn ized section and content) DATE CREATED AUTHOR 08/25/2023 [facility] FOR RECORDS PERTAINING TO PATIENTS WHO ARE OR HAVE BEEN ENROLLED IN A CHEMICAL DEPENDENCY/SUBSTANCEABUSE PROGRAM, SOME INFORMATION MAY BE OMITTED. This clinical summary was aggregated from multiple sources. Caution should be exercised in using it in the provision of clinical care. This summary normalizes information from multiple sources, and as a consequence, information in this document may materially change the coding, format and clinical context of patient data. In addition, data may be omitted in some cases. CLINICAL DECISIONS SHOULD BE BASED ON THE PRIMARY CLINICAL RECORDS. [employer] [facility]. provides no warranty or guarantee of the accuracy or completeness of information in this document.
--- NOTE | 2023-12-17 07:24 | MRI_ITS ---
EXAM: MR THORACIC SPINE WITHOUT INTRAVENOUS CONTRAST CLINICAL INDICATION: THORACIC FACET ARTHROPATHY TECHNIQUE: Multiplanar and multisequence MR images of the thoracic spine without intravenous contrast. COMPARISON: No relevant prior studies available. FINDINGS: VERTEBRAE: Chronic compression deformities of the superior endplate of the T4, T5 and T6 vertebral bodies. Bone marrow edema is noted along the mid and inferior portion of the T6 vertebral body which appears to be separate from the chronic compression deformity. Underlying pathology to be excluded. Focal area of edema also noted along the posterior superior corner of the T11 vertebral body which may be related to underlying disc disease. There is preservation of the normal thoracic kyphosis. No scoliosis. DISCS/SPINAL CANAL/NEURAL FORAMINA: The T10-11 disc space is narrowed and demonstrates increased T2 signal. Similar changes are noted at the T12-L1 level. Underlying discitis to be excluded. Mild disc bulging at T6-7 and T10-11 without significant spinal stenosis. Narrowing of the T10-11 neural foramina related to bony hypertrophy. Neural foramina are otherwise intact throughout the remainder of the thoracic spine. SPINAL CORD: Normal. Normal in signal and morphology. Normal conus medullaris. SOFT TISSUES: Normal. MRI/Spine Thoracic (Routine) IMPRESSION: 1. Chronic appearing compression deformities of T4, T5 and T6. 2. Bone marrow edema of the T6 vertebral body which raises the possibility of underlying pathology. 3. Question underlying discitis at the T10-11 and T12-L1 levels. Electronically Signed: Linden Merida MD at 17:05 EDT ,
== END | disposition home or self-care (01) ==
LOC: MRI 07:12
PROVIDERS: PCP Family Medicine; Referring Provider Clinical Nurse Specialist Adult Health; Visit Provider Clinical Nurse Specialist Adult Health
DX: M46.94 Unspecified inflammatory spondylopathy, thoracic region (principal)
CPT/HCPCS: 72146

== ENCOUNTER → 2024-01-01 | Outpatient (CLI) | payer OTHER, SELFPAY ==
[2024-01-01 17:44] LABS: Absolute Lymphocyte Count 1.77 X10^3/uL (0.83-4.51); Absolute Neutrophil Count 7.1 X10^3/uL (2.0-7.7); Basophil# 0.13 X10^3/uL; Basophil% 1.2 % (0-1); Eosinophil# 0.24 X10^3/uL; Eosinophils% 2.3 % (0-5); Hematocrit 43.3 % (40-54); Hemoglobin 14.3 g/dL (13.0-16.5); Lymphocyte # 1.77 X10^3/ul (0.83-4.51); Mean Corpuscular Hgb 30.2 pg (27.0-32.0); Mean Corpuscular Volume 91.5 fL (80-94); Mean Platelet Vol. 8.6 fl (6.2-12.0); Monocyte# 1.11 X10^3/uL; Monocyte% 10.6 % (0-10); NRBC Flagged by Analyzer 0 % (0-5); Neutrophil # 7.14 X10^3/uL (2.7-7.7); Neutrophil % 68.5 % (47-70); Platelet Count 446 K/mm3 (150-450); RBC Distribution Width CV 11.8 % (11.6-14.6); RBC Distribution Width SD 39.8 fl (35.1-43.9); Red Blood Count 4.73 M/mm3 (4.6-6.2); White Blood Count 10.4 K/mm3 (4.4-11.0)
== END | disposition home or self-care (01) ==
LOC: MFPLAB 15:35
PROVIDERS: PCP Family Medicine; Visit Provider Clinical Nurse Specialist Adult Health
DX: Z79.891 Long term (current) use of opiate analgesic (principal)
CPT/HCPCS: 36415; 85025

== ENCOUNTER → 2024-02-23 | Outpatient (CLI) | payer OTHER, SELFPAY ==
[2024-02-23 12:40] VITALS: PULSE 100; PULSE 105; PULSE 106; PULSE 90; PULSE 95; PULSE 96; PULSE 97; O2SAT 92; O2SAT 93; O2SAT 94; O2SAT 96; O2SAT 97
--- NOTE | 2024-02-23 12:45 | CPS ---
PATIENT TOOK 1 REST BREAK BETWEEN MINUTES 3/4 DUE TO BACK PAIN WHILE WALKING, RESUMED WALKING WITHOUT FURTHER BREAKS. TESTING PERFORMED ON ROOM AIR. PATIENT AMBULATED 611 FT DURING TEST.
--- NOTE | 2024-03-02 13:30 | WT_ITS ---
PSN 6 Minute Walk Test 6 Minute Walk Test 6 Minute Walk Test: 6 Minute Walk Test PSN:6-Minute Walk Test Start: 02/23/24 12:40 Freq: Status: Active Protocol: [id number].6MINW Document 02/23/24 12:40 [facility] (Rec: 02/23/24 12:50 [facility] [id number]) 6 Minute Walk Test Date Performed 02/23/24 Time Performed 12:20 Height 5 ft 10 in Weight: 150 lb Weight in Pounds 150.[address]: Mikayla Ventura [employer] Assistive device used: None Pre-test Oxygen Delivery Method Room Air Pulse Ox (%) 96 Pulse Rate (60-100 beats/min) 105 H Dyspnea Eliceo Scale (0-10) 3 Reported Symptoms Increased Work of Breathing 1st minute Oxygen Delivery Method Room Air Pulse Ox (%) 96 Pulse Rate (60-100 beats/min) 106 H Dyspnea Eliceo Scale (0-10) 4 Number of Rests Taken 0 Reported Symptoms Increased Work of Breathing 2nd minute Oxygen Delivery Method Room Air Pulse Ox (%) 93 Pulse Rate (60-100 beats/min) 100 Dyspnea Eliceo Scale (0-10) 5 Number of Rests Taken 0 Reported Symptoms Increased Work of Breathing 3rd minute Oxygen Delivery Method Room Air Pulse Ox (%) 92 Pulse Rate (60-100 beats/min) 90 Dyspnea Eliceo Scale (0-10) 5 Number of Rests Taken 1 Reported Symptoms Increased Work of Breathing 4th minute Oxygen Delivery Method Room Air Pulse Ox (%) 94 Pulse Rate (60-100 beats/min) 95 Dyspnea Eliceo Scale (0-10) 5 Number of Rests Taken 1 Reported Symptoms Increased Work of Breathing 5th minute Oxygen Delivery Method Room Air Pulse Ox (%) 97 Pulse Rate (60-100 beats/min) 96 Dyspnea Eliceo Scale (0-10) 5 Number of Rests Taken 0 Reported Symptoms Increased Work of Breathing 6th minute Oxygen Delivery Method Room Air Pulse Ox (%) 96 Pulse Rate (60-100 beats/min) 97 Dyspnea Eliceo Scale (0-10) 5 Number of Rests Taken 0 Reported Symptoms Increased Work of Breathing Post-test Oxygen Delivery Method Room Air Pulse Ox (%) 96 Pulse Rate (60-100 beats/min) 100 Dyspnea Eliceo Scale (0-10) 3 Reported Symptoms Increased Work of Breathing Full Laps Walked 10 Partial Lap, Number of Tiles Walked 21 Total Distance Walked (ft) 611 02/23/24 12:45 Cardiopulmonary Services by Loretta Castillo PATIENT TOOK 1 REST BREAK BETWEEN MINUTES 3/4 DUE TO BACK PAIN WHILE WALKING, RESUMED WALKING WITHOUT FURTHER BREAKS. TESTING PERFORMED ON ROOM AIR. PATIENT AMBULATED 611 FT DURING TEST. Initialized on 02/23/24 12:45 - END OF NOTE Interpretation Interpretation: The patient ambulated 611 feet over the course of 6 minutes beginning on room air without assistive devices. Pretesting oxygen saturation was noted to be 96% on room air. With ambulation, the wang oxygen saturation was 92%. Although there was evidence of impaired walk distance, there was no significant exertional oxygen desaturation. Recommendations Recommendations: There is no indication for the use of supplemental oxygen at this time.
== END | disposition home or self-care (01) ==
LOC: PSN 12:10
PROVIDERS: PCP Family Medicine; Referring Provider Nurse Practitioner Acute Care; Visit Provider Nurse Practitioner Acute Care
DX: J41.8 Mixed simple and mucopurulent chronic bronchitis (principal)
CPT/HCPCS: 94618

== ENCOUNTER 2024-02-28 12:35 | Inpatient (IN) | payer OTHER, SELFPAY ==
[2024-02-28] VITALS (12 sets, daily range): BP systolic 126–154; BP diastolic 48–91; PULSE 79–97; RESP 15–20; TEMP 36.1–36.9; O2SAT 96–98; BMI 24.4; BMI 20.7
--- NOTE | 2024-02-28 13:07 | CT_ITS ---
STUDY: CT FACIAL BONES WITHOUT CONTRAST REASON FOR EXAM: Male, 63 years old. Facial trauma and jaw post fall, right condylar pain RADIATION DOSAGE (If Supplied By Facility): CTDIvol = ( 29.38 ) mGy, DLP = ( 584.19 ) mGycm TECHNIQUE: The patient was scanned in a multi detector CT scanner. Sagittal and coronal images were reconstructed. Individualized dose optimization techniques were used for this CT. COMPARISON: None. FINDINGS: Normal soft tissue structures. Normal orbital lozano and orbital contents. Normal nasal bones and anterior nasal spine. The nasal septum deviates to the right. There is acute comminuted fracture of the right mandibular condyle. Normal zygomatic arches. Normal visualized paranasal sinuses. CT/Sinus/Facial Bone IMPRESSION: Right mandibular condyle fracture. Electronically Signed: Andrea Beltran MD at 13:57 EST ,
--- NOTE | 2024-02-28 13:07 | CT_ITS ---
STUDY: CT BRAIN WITHOUT CONTRAST REASON FOR EXAM: Male, 63 years old. Syncope w/ facial trauma RADIATION DOSAGE (If Supplied By Facility): CTDIvol = ( 44.99 ) mGy, DLP = ( 812.98 ) mGycm TECHNIQUE: Transaxial CT imaging of the brain was performed without administration of intravenous contrast material. Individualized dose optimization techniques were used for this CT. COMPARISON: No relevant priors. FINDINGS: Normal soft tissue structures. Normal calvarium. There is right mandibular condyle fracture. There is mild cerebral atrophy with widening of the extra-axial spaces and ventricular dilatation. Normal white matter tracts of the cerebral hemispheres. Normal basal ganglia and thalami. Normal brainstem. Normal cerebellum. There is no intracranial hemorrhage. There are no findings of an acute ischemic infarction. Normal visualized paranasal sinuses. CT/Brain/Head without Contrast IMPRESSION: Chronic involutional changes of the brain. Right mandibular fracture. Electronically Signed: Andrea Beltran MD at 13:55 EST ,
--- NOTE | 2024-02-28 13:08 | RAD_ITS ---
STUDY: X-RAY CHEST REASON FOR EXAM: Male, 63 years old. Chest pain TECHNIQUE: Frontal and lateral views of the chest. COMPARISON: October 06, 2023 FINDINGS: The lungs are clear and hyperexpanded. There is no demonstrated pleural abnormality. Normal size heart. Normal mediastinum and chilo. Normal visualized pulmonary arteries. Normal visualized aortic arch and descending thoracic aorta. There is degenerative change of the spine. There is compression fracture of the lumbar spine. Normal visualized ribs, clavicles, and shoulders. There is no demonstrated abnormality of the visualized soft tissue structures of the upper abdomen. RAD/Chest PA and Lateral IMPRESSION: Degenerative changes, as described above. No demonstrated acute cardiopulmonary process. Electronically Signed: Andrea Beltran MD at 13:46 EST ,
--- NOTE | 2024-02-28 13:08 | EKG12_ITS ---
Test Reason : CP Blood Pressure : */* mmHG Vent. Rate : 90 BPM Atrial Rate : 90 BPM P-R Int : 202 ms QRS Dur : 100 ms QT Int : 346 ms P-R-T Axes : 83 -37 77 degrees QTcB Int : 423 ms Normal sinus rhythm Left axis deviation Septal infarct (cited on or before 20-Jun-2020) Abnormal ECG Confirmed by TERESA ACEVES, KEISHA ([id number]), index editor DIANNA LAKE ([id number]) on 03/01/2024 7:00:39 AM Referred By: KELLIE/GISSELL Confirmed By: KEISHA MOORE MD
--- NOTE | 2024-02-28 13:10 | EX.ED.DYSGE1 ---
HPI History of Present Illness Chief Complaint: Fall Informant: patient Onset/Context/Timing Onset: Today Current Severity: Mild Maximum Severity: Moderate Narrative Narrative: 63-year-old male history of COPD, EtOH and hypertension. Said he was walking in his house and he did not feel well got lightheaded and went out. He said when he woke up he was on the floor. Thinks he is only out less than 1 minute. His is at home heard the fall she found him on the floor. Said when he fell he hurt his face and his right jaw. Bit his tongue. And injured his right rib cage. He is on no blood thinners. Denies any neck or back pain. Denies any injury to his extremities. Said he has not been recently ill. He is never passed out before. He has no cardiac history. He does wear oxygen at night as needed. Prior similar symptoms: No Recent Illness/Hospitalization: No [facility] Medical History IBS (irritable bowel syndrome) Hx of colonic polyp Alcohol abuse Hemorrhoids COPD (chronic obstructive pulmonary disease) Hypertension Arthritis Home Medications ?Medication ?Instructions ?Recorded ?Last Taken ?Type epinephrine 0.3 mg/0.3 mL 0.3 mg IM ONCE PRN anaphylaxis 07/07/23 Unknown History injection, auto-injector (EpiPen 2-Jesse) hydrocodone-acetaminophen 5-325mg 1 tab PO Q6H PRN PRN Pain 3 days 10/06/23 02/27/24 Rx 5mg-325mg #12 TABLETS albuterol sulfate 90 mcg/actuation 1 puff inhalation Q6H PRN SOB #8.5 01/16/24 02/27/24 Rx aerosol inhaler grams Disability Placard #1 ea 01/30/24 Unknown Rx losartan 100 mg tablet 100 mg PO QDAY 01/30/24 02/28/24 History omeprazole 40 mg capsule,delayed 40 mg PO QDAY 01/30/24 Unknown History release fluticasone 500 mcg-salmeterol 50 1 inh inhalation BID #3 ea 02/16/24 02/27/24 Rx mcg/dose blistr powdr for inhalation (Advair Diskus) tiotropium bromide 2.5 2 inh inhalation QDAY #3 ea 02/16/24 02/28/24 Rx mcg/actuation mist for inhalation (Spiriva Respimat) duloxetine 30 mg capsule,delayed 30 mg PO DAILY 02/28/24 02/28/24 History release Allergy/AdvReac Type Severity Reaction Status Date / Time amlodipine (From Norvasc) Allergy Swelling Verified 01/30/24 14:25 lisinopril Allergy Pain in Verified 01/30/24 14:25 joints tamsulosin Allergy Other Verified 01/30/24 14:25 tolterodine (From Detrol) Allergy Other Verified 01/30/24 14:25 Family History Mother Arthritis Father Diabetes Heart disease Hypertension Surgical History Hx of vasectomy Hx of colonoscopy Hx of appendectomy Social History household members: spouse and children housing: house current occupational status: employed Smoking Status: Current every day smoker tobacco type: cigarettes second hand exposure: Yes alcohol intake: current alcohol intake frequency: 3 or more drinks per day substance use type: does not use caffeine: Yes what type of physical activity do you participate in: none frequency: does not exercise ROS ROS ED ROS Narrative Denies recent illness. Denies vomiting and diarrhea. Denies melena. Constitutional Constitutional ED: Denies chills or fever(s) ENT ENT ED: Denies ear pain Cardiovascular Cardiovascular: Reports other Details: Right rib cage pain post fall. ; Denies chest pain Gastrointestinal Gastrointestinal: Denies abdominal pain Genitourinary Genitourinary ED: Denies dysuria or hematuria Musculoskeletal Musculoskeletal: Denies arthralgias Integumentary Denies abscess Neurologic Neurologic: Denies headache(s) Psychiatric Psychiatric: Denies anxiety or depression Endocrine Endocrinology: Denies cold intolerance Hematologic/Lymphatic Hematologic/Lymphatic: Reports none Allergic/Immunologic Allergic/Immunologic ED: Denies mouth swelling, tongue swelling or urticaria EXAM Physical Exam Narrative Exam Narrative: 63-year-old male sitting upright in bed. Vital signs are stable afebrile. Pulse ox 97% on room air no hypoxia. He is in no distress. H EENT exam. Round reactive light. No facial droop. No significant bruising or swelling of his face. He has mild tenderness to his left jaw. He has a laceration to the anterior tip of his tongue. It does not need repaired. Mild bleeding. Dentition intact. No malocclusion. Able to open close his mouth. Scalp is nontender without hematoma or laceration. Neck and spine nontender. Back and spine nontender. No signs of trauma. No bruising or tenderness. Lungs patient has a few scattered expiratory wheezes bilaterally. Heart regular rhythm no murmur. Rate about 90. Chest wall is mild tenderness to his right lower rib cage. No crepitance or subcu air. No bruising. No gross bony deformity. Abdomen is soft and nontender. Normal bowel sounds. No peritoneal signs. No bruising. Pelvic girdle intact. 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 Normal dorsi plantarflexion. He can flex and extend both knees and hips. He has normal range of motion his upper extremities. Normal granite polisher apprentice strength. Neurologically is awake and alert. Answer questions following commands. GCS 15. Const Vital Signs: 02/28/24 12:40 02/28/24 12:59 02/28/24 13:08 Temperature 98.4 F Temperature Source Oral Pulse Rate 90 Respiratory Rate 17 Respiratory Effort Short of Breath Respiratory Depth Deep Respiratory Pattern Tachypnea Blood Pressure 144/81 H Blood Pressure Mean 102 Pulse Ox 97 97 Oxygen Delivery Method Room Air Nasal Cannula Oxygen Flow Rate (L/min) 2 02/28/24 13:35 02/28/24 13:36 02/28/24 14:00 Temperature Temperature Source Pulse Rate 96 97 89 Respiratory Rate 15 16 16 Respiratory Effort Respiratory Depth Respiratory Pattern Normal Blood Pressure 154/89 H 143/74 H Blood Pressure Mean 110 97 Pulse Ox 98 97 Oxygen Delivery Method Nasal Cannula Nasal Cannula Oxygen Flow Rate (L/min) 2 2 Positive well nourished and well developed; Negative for obese, cachectic, contractures or unkempt General Appearance ED: well developed and NAD; Negative for unkempt, cachectic, contractures, cyanotic, diaphoretic or pallor Nutritional Appearance: Negative for cachectic or obese HEENT Reports moist mucous membranes trauma and tenderness Eyes PERRL and EOMs intact bilaterally Neck no lymphadenopathy, supple and no JVD Chest Wall inspection of chest normal and palpation of chest normal Resp normal respiratory effort and No clear to auscultation bilaterally Resp Narrative: Few scattered expiratory wheezes. Equal symmetrical. Effort and Inspection: Negative for retractions Auscultation: wheezes; Negative for rales or rhonchi Cardio regular rate, regular rhythm, S1 normal heart sound, S2 normal heart sound and no murmurs Rhythm: Negative for abnormal rhythm GI normal to inspection, nondistended, normoactive bowel sounds, non-tender, non-distended and no masses Palpation: soft; Negative for tender, guarding or rebound tenderness present Back/Spine no CVA tenderness General Back: Negative for CVA tenderness Cervical Spine: Negative for cervical spine tenderness Thoracic Spine / Upper Back: Negative for thoracic spinal tenderness or paraspinal muscle tenderness Lumbar Spine / Lower Back: Negative for lumbar spinal tenderness Extremity normal to inspection General Extremety ED: Negative for edema or tenderness General Extremity: Negative for edema Neuro oriented x3 and CN's II-XII intact bilaterally Sensorium / Orientation: alert; Negative for orientation impaired, lethargic or stuporous Motor Exam: strength 5/5 throughout Psych mental status grossly normal Appearance: Negative for unkempt Attitude: No agitated Mood & Affect: Negative for depressed, anxious or tearful Skin no rashes or lesions noted and no wounds General Skin Exam: Negative for jaundice or pallor Lesions: No lesion noted Rashes: No rashes noted Trauma: Negative for abrasion Wounds: Negative for wounds noted MDM MDM MDM Narrative Medical decision making narrative: So 63-year-old male history of COPD but acute syncopal event. Workup for syncope a cardiac workup. He did hit his head and complaining of facial pain is a tongue laceration does not need repaired. Will obtain a CT of his brain and CT facial series. Right lower rib cage pain chest x-ray to be obtained to rule out rib fracture or pneumothorax. Given DuoNeb for his wheezing. Repeat exam his I believe daughter in the room. Patient is comfortable being admitted for syncope. Initially I did not see it due to the thickness of his norman but he does have a 2 to 3 cm chin laceration which will get repaired. He knows about his right jaw fracture. As does his family. He does have chronic hyponatremia from his alcohol use. I have already spoken to the hospitalist. He will admit the patient. The jaw fracture will be an outpatient repair either locally or out of town. That is nonemergent. Patient tells me his last tetanus shot was within the last 5 years and does not want a tetanus shot today. History & Record Review Discussion w/independent historian: Patient and Family Additional record(s) reviewed:: Prior inpatient record, Prior outpatient record, Prior ED visit and Prior labs Lab Data Attestation: I reviewed the patient's lab results. Lab results narrative: CBC shows a normal white count 10.2. H&H 13 and 37. Platelets 376. Electrolytes show sodium 125. Gap of 7. Normal BUN of 10 creatinine 0.5 Glucose 145. Troponin 6 Labs: Laboratory Results - last 24 hr 02/28/24 12:54 WBC 10.2 RBC 4.25 L Hgb 13.1 Hct 37.7 L MCV 88.7 MCH 30.8 MCHC 34.7 RDW Std Deviation 38.4 RDW Coeff of Pam 11.9 Plt Count 376 MPV 8.1 Immature Gran % (Auto) 0.500 Neut % (Auto) 79.0 H Lymph % (Auto) 9.2 L Keith % (Auto) 10.4 H Eos % (Auto) 0.3 Baso % (Auto) 0.6 Absolute Neuts (auto) 8.1 H Absolute Lymphs (auto) 0.94 Nucleated RBC % 0 Sodium 125 L Potassium 4.2 Chloride 90 L Carbon Dioxide 28.0 Anion Gap 7 BUN 10 Creatinine 0.58 L Estim Creat Clear Calc 136.35 Est GFR (MDRD) Af Amer 181 Est GFR (MDRD) Non-Af 150 BUN/Creatinine Ratio 17.1 Glucose 145 H Calcium 8.7 Troponin I High Sens 6 Radiography Chest X-Ray - ED: 2 View, Read by ED Physician, Read by Radiologist, Heart, Lungs, Mediastinum, Bony Structures, No Acute Disease and Chronic Changes Diagnostic Testing: Clinical Impression(s) from Imaging Studies Brain CT 02/28/24 13:07 IMPRESSION: Chronic involutional changes of the brain. Right mandibular fracture. Electronically Signed: Andrea Beltran MD at 13:55 EST , Facial/Sinus 02/28/24 13:07 IMPRESSION: Right mandibular condyle fracture. Electronically Signed: Andrea Beltran MD at 13:57 EST , Chest X-Ray 02/28/24 13:08 IMPRESSION: Degenerative changes, as described above. No demonstrated acute cardiopulmonary process. Electronically Signed: Andrea Beltran MD at 13:46 EST Reading Location ID and State: [address] [place] [address] , Service support , Chest x-ray, 2 views, interpreted by by myself and the radiologist shows chronic changes no acute process. Normal cardiac silhouette. No obvious rib fracture. No pneumothorax. No hemothorax. Rhythm Strip Rhythm Strip: Sinus Rhythm Rate: 90 Ectopy: None EKG Initial EKG: Attestation: I personally reviewed and interpreted this EKG as follows: Interpretation: Sinus Rhythm and No Acute Injury Pattern Comments: Normal sinus rhythm rate of 90 no acute signs of MT, ischemia or dysrhythmia. Procedures Lacerations Chin laceration 1 inch repair:: Length: 1 in Depth: Sub Q Shape: Linear Prep: Shure-Clens Laceration repair: Irrigated, Lidocaine, Local and Skin sutures Number of Sutures/Jean: 3 Suture Information: Ethilon, Simple and 4-0 (Chin laceration 1 inch. Linear. No involves skin and subcu tissue. Local anesthetized with lidocaine. Cleaned with Khushi-Clens. Washed and irrigated with saline. Closed using 3 simple interrupted 4-0 Ethilon sutures. Proper hemostasis wound closure was obtained. Complicated by his thick norman) Discharge Plan Dx/Rx/DC Orders Clinical Impression: Syncope, COPD with acute exacerbation, Fall, Contusion of face, Tongue laceration, Chin laceration, Fracture of jaw, Chronic hyponatremia, History of ETOH abuse Disposition Disposition: Acute Care [facility]
[2024-02-28 13:15] LABS: Absolute Lymphocyte Count 0.94 X10^3/uL (0.83-4.51); Absolute Neutrophil Count 8.1 X10^3/uL (2.0-7.7); Basophil# 0.06 X10^3/uL; Basophil% 0.6 % (0-1); Eosinophil# 0.03 X10^3/uL; Eosinophils% 0.3 % (0-5); Hematocrit 37.7 % (40-54); Hemoglobin 13.1 g/dL (13.0-16.5); Lymphocyte # 0.94 X10^3/ul (0.83-4.51); Lymphocyte % 9.2 % (19-41); Mean Corp Hgb Conc 34.7 g/dL (32-36); Mean Corpuscular Hgb 30.8 pg (27.0-32.0); Mean Corpuscular Volume 88.7 fL (80-94); Mean Platelet Vol. 8.1 fl (6.2-12.0); Monocyte# 1.06 X10^3/uL; Monocyte% 10.4 % (0-10); NRBC Flagged by Analyzer 0 % (0-5); Neutrophil # 8.05 X10^3/uL (2.7-7.7); Platelet Count 376 K/mm3 (150-450); RBC Distribution Width CV 11.9 % (11.6-14.6); RBC Distribution Width SD 38.4 fl (35.1-43.9); Red Blood Count 4.25 M/mm3 (4.6-6.2); White Blood Count 10.2 K/mm3 (4.4-11.0)
[2024-02-28] MEDS: Ipratropium/Albuterol Sulfate 3 ML AMPUL.NEB INHALATION ×3 (13:34→23:10)
[2024-02-28] MEDS: MethylPREDNISolone 125 MG/2 ML Vial IV (13:36)
[2024-02-28 13:42] LABS: Anion Gap 7 (5-15); BUN 10 mg/dL (7-18); BUN/Creat Ratio 17.1 RATIO (10-20); Calcium,Total 8.7 mg/dL (8.5-10.1); Chloride 90 mmol/L (98-107); Creatinine, Serum 0.58 mg/dL (0.70-1.30); EST Glomerular Filtration Rate 150 mL/min (>60); Est Glom Filt Rate - Afr Amer 181 mL/min (>60); Estimated Creatinine Clearance 136.35 ml/min; Glucose 145 mg/dL (74-106); Potassium 4.2 mmol/L (3.5-5.1); Sodium Level 125 mmol/L (136-145); Troponin-I HS 6 pg/mL (3.0-78.0)
[2024-02-28] MEDS: Ondansetron 4 MG/2 ML Vial IV (14:35)
[2024-02-28] MEDS: morphine 8 MG/ML Syringe 6 MG IV (14:35)
--- NOTE | 2024-02-28 15:08 | PCM.HP.STD ---
HPI - General General Date of Admission: 02/28/24 Date of Service: 02/28/24 Chief Complaint: Passed out HPI Narrative LAUREL OTERO, is a 63 M with past medical history seen on full COPD, chronic alcohol dependence, chronic hyponatremia who presented to the emergency department after passing. Per patient he was walking around in the house when he blacked out. He ended up experiencing a fall to the ground. Was subsequently brought to the ED by the . Patient was found to have a chin laceration as well as right mandibular condyle fracture. Per patient he woke up on the morning of his presentation not feeling well. Denied any subjective fever no chills. He however felt fatigued. He admitted to drinking around 10 PM on the night prior to his admission. Workup in the ED did demonstrate the mandibular fracture as described above in addition to hyponatremia. Admitted to a monitored bed for workup of his syncopal episode. [facility] Medical History IBS (irritable bowel syndrome) Hx of colonic polyp Alcohol abuse Hemorrhoids COPD (chronic obstructive pulmonary disease) Hypertension Arthritis Home Medications ?Medication ?Instructions ?Recorded ?Last Taken ?Type epinephrine 0.3 mg/0.3 mL 0.3 mg IM ONCE PRN anaphylaxis 07/07/23 Unknown History injection, auto-injector (EpiPen 2-Jesse) hydrocodone-acetaminophen 5-325mg 1 tab PO Q6H PRN PRN Pain 3 days 10/06/23 02/27/24 Rx 5mg-325mg #12 TABLETS albuterol sulfate 90 mcg/actuation 1 puff inhalation Q6H PRN SOB #8.5 01/16/24 02/27/24 Rx aerosol inhaler grams Disability Placard #1 ea 01/30/24 Unknown Rx losartan 100 mg tablet 100 mg PO QDAY 01/30/24 02/28/24 History omeprazole 40 mg capsule,delayed 40 mg PO QDAY 01/30/24 Unknown History release fluticasone 500 mcg-salmeterol 50 1 inh inhalation BID #3 ea 02/16/24 02/27/24 Rx mcg/dose blistr powdr for inhalation (Advair Diskus) tiotropium bromide 2.5 2 inh inhalation QDAY #3 ea 02/16/24 02/28/24 Rx mcg/actuation mist for inhalation (Spiriva Respimat) duloxetine 30 mg capsule,delayed 30 mg PO DAILY 02/28/24 02/28/24 History release Allergy/AdvReac Type Severity Reaction Status Date / Time amlodipine (From Norvasc) Allergy Swelling Verified 01/30/24 14:25 lisinopril Allergy Pain in Verified 01/30/24 14:25 joints tamsulosin Allergy Other Verified 01/30/24 14:25 tolterodine (From Detrol) Allergy Other Verified 01/30/24 14:25 Family History Mother Arthritis Father Diabetes Heart disease Hypertension Surgical History Hx of vasectomy Hx of colonoscopy Hx of appendectomy Social History household members: spouse and children housing: house current occupational status: employed Smoking Status: Current every day smoker tobacco type: cigarettes second hand exposure: Yes alcohol intake: current alcohol intake frequency: 3 or more drinks per day substance use type: does not use caffeine: Yes what type of physical activity do you participate in: none frequency: does not exercise Vital Signs Vital Signs Vital Signs: 02/28/24 12:40 02/28/24 12:59 02/28/24 13:08 Temperature 98.4 F Temperature Source Oral Pulse Rate 90 Respiratory Rate 17 Respiratory Effort Short of Breath Respiratory Depth Deep Respiratory Pattern Tachypnea Blood Pressure 144/81 H Blood Pressure Mean 102 Pulse Ox 97 97 Oxygen Delivery Method Room Air Nasal Cannula Oxygen Flow Rate (L/min) 2 02/28/24 13:35 02/28/24 13:36 02/28/24 14:00 Temperature Temperature Source Pulse Rate 96 97 89 Respiratory Rate 15 16 16 Respiratory Effort Respiratory Depth Respiratory Pattern Normal Blood Pressure 154/89 H 143/74 H Blood Pressure Mean 110 97 Pulse Ox 98 97 Oxygen Delivery Method Nasal Cannula Nasal Cannula Oxygen Flow Rate (L/min) 2 2 Weight Weight: 77.247 kg Body Mass Index (BMI) 24.4 Physical Exam Narrative GENERAL: cooperative HEENT: Laceration involving the chin EYES; Anicteric, Normal Conjunctiva NECK; supple, normal thyroid, RESPIRATORY: Diminished to auscultation CARDIOVASCULAR: Regular S1 S2, GI: soft, normoactive bowel sounds, : No Renal angle tenderness; EXTREMITIES: No edema, no clubbing, MUSCULOSKELETAL: no muscle wasting NEURO: Awake; no lateralizing signs. SKIN: No Rash PSYCH; Flat affect Results Lab / Micro Data 02/28/24 12:54 02/28/24 12:54 Labs: Laboratory Results - last 24 hr 02/28/24 12:54: WBC 10.2, RBC 4.25 L, Hgb 13.1, Hct 37.7 L, MCV 88.7, MCH 30.8, MCHC 34.7, RDW Std Deviation 38.4, RDW Coeff of Pam 11.9, Plt Count 376, MPV 8.1, Immature Gran % (Auto) 0.500, Neut % (Auto) 79.0 H, Lymph % (Auto) 9.2 L, Sac % (Auto) 10.4 H, Eos % (Auto) 0.3, Baso % (Auto) 0.6, Absolute Neuts (auto) 8.1 H, Absolute Lymphs (auto) 0.94, Nucleated RBC % 0, Sodium 125 L, Potassium 4.2, Chloride 90 L, Carbon Dioxide 28.0, Anion Gap 7, BUN 10, Creatinine 0.58 L, Estim Creat Clear Calc 136.35, Est GFR (MDRD) Af Amer 181, Est GFR (MDRD) Non-Af 150, BUN/Creatinine Ratio 17.1, Glucose 145 H, Calcium 8.7, Troponin I High Sens 6 Rhythm Strip Rhythm Strip: Sinus Rhythm Rate: 90 Ectopy: None Imaging Radiology Impression Brain CT 02/28/24 13:07 IMPRESSION: Chronic involutional changes of the brain. Right mandibular fracture. Electronically Signed: Andrea Beltran MD at 13:55 EST , Facial/Sinus 02/28/24 13:07 IMPRESSION: Right mandibular condyle fracture. Electronically Signed: Andrea Beltran MD at 13:57 EST , Chest X-Ray 02/28/24 13:08 IMPRESSION: Degenerative changes, as described above. No demonstrated acute cardiopulmonary process. Electronically Signed: Andrea Beltran MD at 13:46 EST , Assessment & Plan Assessment/Plan (1) Chin laceration: (2) Contusion of face: (3) Syncope: PLAN: Plan Patient is a 63-year-old gentleman presenting with a syncopal episode with subsequent facial trauma 1. Syncopal episode ? Etiology not clear at this point. Patient has been admitted to the progressive care unit for continuous telemetry monitoring. As part of patient's management ordered case shift orthostatic checks, serial cardiac enzymes, 2D echo. Subsequent management decision will be based on the etiology identified 2. Facial trauma ? Following syncopal episode. Patient did develop chin laceration which was sutured in the ED. He also did develop right mandibular condyle fracture. Plan is for patient to follow-up with maxillofacial surgeon as outpatient 3. Acute febrile illness ? Ordered COVID and viral respiratory panel 4. COPD with acute exacerbation ? Patient started on bronchodilator treatment, systemic steroid as well as antibiotic therapy. Patient placed on oxygen titrated to keep saturation greater than 90. 5. Hyponatremia ? They appear to be some chronicity to patient's hyponatremia this is secondary to beer potomania. Patient was started on sodium tablet with daily monitoring of sodium levels ordered 6. Chronic alcohol dependence ? Patient is at significant risk for alcohol withdrawal subsequently placed on phenobarb taper 7. Tobacco dependence ? Counseled on cessation, offered nicotine patch for tobacco cravings 8. Hyperglycemia ? Patient does not have known history of diabetes ordered hemoglobin A1c 9. Hypertension ? Blood pressure controlled, home medications continued with dose adjustment as needed 10. DVT prophylaxis ? On enoxaparin Time spent in the patient's overall evaluation,decision-making process, review of diagnostic data, adjustment of management, discussion with other providers, nursing nursing and ancillary staff involved in patient's care documentation, 77 Minutes Advance planning; did discuss with the patient and family regarding advanced directives as well as CODE STATUS. Did explain the various scenarios involved ( FULL CODE, DNR CCA, DNR CCA with no intubation, and DNR CC and what each meant) patient elected full code with CPR and intubation if warranted. Order was placed. Time spent on discussion 16 minutes. ? Charges/Coding Multi Select Codes Visit Charges Visit Charges: 36394 Init Hosp L3 Hospitalists' Procedures Procedures: 19049 Advncd Care Plan 30 Min
[2024-02-28] MEDS: Lidocaine 1% (20 ml mdv) 20 ML Vial 10 ML INFILT (15:36)
--- NOTE | 2024-02-28 16:40 | ECHOD_ITS ---
Reason For Study: Syncope Procedure This was a 2D Doppler, Color Flow transthoracic echocardiogram. Exam performed portable in patient room. Left Ventricle Normal LV size. Left ventricular systolic function is normal. The estimated ejection fraction is 60 %. No regional wall motion abnormalities noted. Right Ventricle Normal RV size. Normal systolic function. Atria Normal left atrium. Normal right atrium. Mitral Valve Normal mitral valve. Tricuspid Valve Normal tricuspid valve. Aortic Valve Trisinus/trileaflet aortic valve. Pulmonic Valve Normal pulmonic valve. Great Vessels Normal aortic root. The pulmonary artery is normal size. Normal inferior vena cava. Pericardium/Pleural No pericardial effusion. MMode/2D Measurements & Calculations LVIDd: 4.2 cm IVSd: 0.87 cm Ao root diam: 3.4 cm LVIDs: 2.9 cm LVPWd: 0.93 cm RVDd: 3.0 cm FS: 30.9 % LAV(MOD-bp): 31.6 ml LVAd ap4: 25.5 cm2 LVAd ap2: 21.9 cm2 LAV(MOD-bp) Indexed: 17.4 ml/m2 LVLd ap4: 8.1 cm LVLd ap2: 7.7 cm LAV(MOD-sp2): 30.2 ml EDV(MOD-sp4): 67.9 ml EDV(MOD-sp2): 55.1 ml LAV(MOD-sp4): 31.5 ml EDV(sp4-el): 68.1 ml EDV(sp2-el): 53.0 ml LVAs ap4: 13.7 cm2 LVAs ap2: 11.5 cm2 LVLs ap4: 6.7 cm LVLs ap2: 6.9 cm ESV(MOD-sp4): 24.2 ml ESV(MOD-sp2): 17.2 ml ESV(sp4-el): 23.7 ml ESV(sp2-el): 16.4 ml EF(MOD-sp4): 64.4 % EF(MOD-sp2): 68.7 % EF(sp4-el): 65.2 % SV(MOD-sp4): 43.7 ml SV(MOD-sp2): 37.9 ml SV(sp4-el): 44.4 ml SI(MOD-sp4): 24.1 ml/m2 SI(MOD-sp2): 20.9 ml/m2 LA A4 area: 13.3 cm2 LA dimension(2D): 3.4 cm RA A4 area: 12.3 cm2 TAPSE: 2.3 cm Time Measurements MV dec time: 0.27 sec Doppler Measurements & Calculations MV E max calixto: 88.5 cm/sec Lat Peak E' Calixto: 13.4 cm/sec Med Peak E' Calixto: 8.3 cm/sec MV A max calixto: 100.9 cm/sec E/E' lat: 6.6 E/E' med: 10.6 MV E/A: 0.88 Ao V2 max: 121.1 cm/sec LV V1 max: 98.6 cm/sec MV dec slope: 327.6 cm/sec2 Ao max P.9 mmHg LV V1 max P.9 mmHg PA V2 max: 84.1 cm/sec ECHO/Echo Complete Interpretation Summary Normal LV size. Left ventricular systolic function is normal. The estimated ejection fraction is 60 %. Structurally normal valves. Ordering Physician: Felix Garcia Referring Physician: Alfonso Fortune MD Performed By: Laya Orr RDCS
[2024-02-28 17:33] LABS: D-Dimer Quantitative (DVT/PE) 3.52 FEU/ug/m (0.27-0.49)
[2024-02-28 17:35] LABS: BNP,B-Type NATRIURETIC PEPTIDE 20.2 pg/mL (0-100)
[2024-02-28] MEDS: Sodium Chloride 1 GM Tablet PO ×2 (17:38→20:22)
[2024-02-28] MEDS: oxyCODONE 5 MG Tablet 10 MG PO ×2 (17:39→23:15)
[2024-02-28] MEDS: Cefdinir 300 MG Capsule PO ×2 (17:45→20:22)
[2024-02-28] MEDS: 0.9% Saline Lock 10 ML Syringe IV (17:48)
[2024-02-28] MEDS: 0.9% Normal Saline (1000mL) 1,000 ML 100 ML IV (17:49)
[2024-02-28] MEDS: Phenobarbital 32.4 MG Tablet 64.8 MG PO ×2 (17:53→20:36)
--- NOTE | 2024-02-28 18:11 | CT_ITS ---
EXAM: CT ANGIOGRAPHY CHEST WITHOUT AND WITH INTRAVENOUS CONTRAST CLINICAL INDICATION: Dyspnea, elevated D-dimer TECHNIQUE: Helically acquired angiography images were obtained of the chest without and with intravenous contrast. This CT exam was performed using one or more of the following dose reduction techniques: automated exposure control, adjustment of the mA and/or kV according to patient size, and/or use of iterative reconstruction technique. MIP reconstructed images were created and reviewed. CONTRAST: IV 100mL Isovue-370 RADIATION DOSE: CTDIvol = 4.73 mGy, DLP = 193.0 mGy-cm. COMPARISON: No relevant prior studies available. FINDINGS: PULMONARY ARTERIES: Unremarkable. Normal in caliber. No evidence of pulmonary embolism. AORTA: Mild atherosclerotic calcification of aorta, no aneurysm or dissection. GREAT VESSELS OF AORTIC ARCH: Unremarkable. Normal in caliber. No evidence of dissection. LUNGS AND PLEURAL SPACES: Mild central airway thickening. Tiny blebs or bullae at the right medial lung apex. No mass. No convincing infiltrates or effusions. HEART: No intracardiac filling defect. At least moderate coronary artery calcifications and/or stents bilaterally. Heart size is normal. No pericardial effusion. MEDIASTINUM: Unremarkable. No mediastinal or hilar adenopathy. Esophagus is unremarkable. No hiatal hernia. THYROID: Unremarkable. No thyroid lesions. BONES/JOINTS: There is prominent Schmorl''s node and mild decreased height at the anterior L2 body, mild decreased height at the anterior L1 body. Compression deformity of T6 with some residual faint lucent line with sclerotic margins in the upper-endplate region, consistent with subacute fracture. Mild adjacent compression deformities of T5 and T7 appear chronic. No retropulsion or spinal stenosis. KIDNEYS AND URETERS: Mild hazy soft tissue stranding around the partially included kidneys may be due to glomerulonephritis, nonspecific. The gallbladder and proximal pancreas are not fully included. Unremarkable adrenals. CT/CTA Chest W/WO Contrast IMPRESSION: 1. No evidence of PE or aortic aneurysm or dissection. 2. Advanced coronary artery calcifications and/or stents. 3. Mild airway thickening without significant narrowing, correlate with cough. No confluent alveolar infiltrates or suspicious nodules. 3. Mild bilateral perinephric soft tissue stranding, nonspecific. 4. Multiple mild compression deformities of the thoracic spine. Evidence of at least late subacute to early chronic upper endplate fracture of T6 with compression deformity. Electronically Signed: Lucrecia Lira MD at 0:34 EST ,
[2024-02-28] MEDS: Acetaminophen 500 MG Tablet 1000 MG PO (20:22)
[2024-02-29] VITALS (16 sets, daily range): BP systolic 112–134; BP diastolic 66–83; PULSE 75–118; RESP 16–20; TEMP 36.3–36.9; O2SAT 88–98
[2024-02-29] MEDS: Phenobarbital 32.4 MG Tablet 64.8 MG PO ×6 (01:07→20:38)
--- NOTE | 2024-02-29 01:55 | PCM.HOSP.N ---
Hospitalist Note CTA of the chest was performed and negative for PE aortic aneurysm/dissection, showed advanced coronary artery disease with calcifications and stents, mild airway thickening without significant narrowing, mild bilateral perinephritic soft tissue stranding that is nonspecific and multiple mild compression deformities in this thoracic spine that appear to be a late subacute to chronic. No change in medical therapy at this time.
[2024-02-29] MEDS: Ipratropium/Albuterol Sulfate 3 ML AMPUL.NEB INHALATION ×6 (03:18→23:46)
[2024-02-29] MEDS: 0.9% Normal Saline (1000mL) 1,000 ML 100 ML IV ×2 (04:03→14:06)
[2024-02-29] MEDS: oxyCODONE 5 MG Tablet 10 MG PO ×3 (04:34→17:34)
[2024-02-29] MEDS: Acetaminophen 500 MG Tablet 1000 MG PO ×3 (05:21→20:39)
[2024-02-29 05:26] LABS: Absolute Neutrophil Count 9.3 X10^3/uL (2.0-7.7); Basophil# 0.01 X10^3/uL; Basophil% 0.1 % (0-1); Hematocrit 34.9 % (40-54); Hemoglobin 12.1 g/dL (13.0-16.5); Mean Corp Hgb Conc 34.7 g/dL (32-36); Mean Corpuscular Hgb 31.1 pg (27.0-32.0); Mean Corpuscular Volume 89.7 fL (80-94); Mean Platelet Vol. 8.1 fl (6.2-12.0); NRBC Flagged by Analyzer 0 % (0-5); Neutrophil # 9.28 X10^3/uL (2.7-7.7); Neutrophil % 93.5 % (47-70); POSITIVE DIFFERENTIAL YES; Platelet Count 368 K/mm3 (150-450); RBC Distribution Width CV 11.8 % (11.6-14.6); RBC Distribution Width SD 38.4 fl (35.1-43.9); Red Blood Count 3.89 M/mm3 (4.6-6.2); White Blood Count 9.9 K/mm3 (4.4-11.0)
[2024-02-29 06:06] LABS: Anion Gap 6 (5-15); BUN 8 mg/dL (7-18); BUN/Creat Ratio 14.9 RATIO (10-20); Calcium,Total 8.5 mg/dL (8.5-10.1); Chloride 89 mmol/L (98-107); Creatinine, Serum 0.54 mg/dL (0.70-1.30); EST Glomerular Filtration Rate 165 mL/min (>60); Est Glom Filt Rate - Afr Amer 200 mL/min (>60); Glucose 183 mg/dL (74-106); Magnesium 2.1 mg/dL (1.6-2.6); Sodium Level 123 mmol/L (136-145)
[2024-02-29] MEDS: Sodium Chloride 1 GM Tablet PO ×2 (09:24→20:38)
[2024-02-29] MEDS: Cefdinir 300 MG Capsule PO (09:25)
[2024-02-29] MEDS: Folic Acid 1 MG Tablet PO (09:25)
[2024-02-29] MEDS: Thiamine Hydrochloride 100 MG Tablet PO (09:25)
[2024-02-29] MEDS: Pantoprazole Sodium 40 MG Tablet PO (09:36)
--- NOTE | 2024-02-29 10:31 | PN.HOSP_ITS ---
Reason for Visit Reason for Visit: Diagnoses Syncope and collapse (02/28/24) Contusion of other part of head, initial encounter (02/28/24) Laceration without foreign body of other part of head, initial encounter (02/28/24) Subjective Subjective Patient is a 63-year-old gentleman with history of chronic alcohol dependence admitted with syncopal episode. Patient was found to have elevated D-dimer CTA was negative for PE. Telemetry monitoring so far unremarkable. Patient this a.m. complains of dysuria order urinalysis with reflex culture Objective Data Objective Data Vital Signs: Vital Signs Temp Pulse Resp BP Pulse Ox O2 Del Method O2 Flow Rate 97.6 F L 96 16 134/77 H 98 Nasal Cannula 2 02/29/24 09:14 02/29/24 09:14 02/29/24 09:14 02/29/24 09:14 02/29/24 09:14 02/29/24 09:44 02/29/24 09:51 Oxygen Flow Rate (L/min) 2 Oxygen Delivery Method Nasal Cannula Weight: 65.5 kg Body Mass Index (BMI) 20.7 Intake & Output: Intake and Output for Last 24 Hours 02/27/24 02/28/24 02/29/24 23:59 23:59 23:59 Intake Total 295 / 775 1390 / 1390 Balance 295 / 775 1390 / 1390 Lab / Micro Data 02/29/24 05:04 02/29/24 05:04 Labs: Laboratory Results - last 24 hr 02/28/24 12:54: WBC 10.2, RBC 4.25 L, Hgb 13.1, Hct 37.7 L, MCV 88.7, MCH 30.8, MCHC 34.7, RDW Std Deviation 38.4, RDW Coeff of Pam 11.9, Plt Count 376, MPV 8.1, Immature Gran % (Auto) 0.500, Neut % (Auto) 79.0 H, Lymph % (Auto) 9.2 L, M [place] % (Auto) 10.4 H, Eos % (Auto) 0.3, Baso % (Auto) 0.6, Absolute Neuts (auto) 8.1 H, Absolute Lymphs (auto) 0.94, Nucleated RBC % 0, D-Dimer Quant (PE/DVT) 3.52 H*, Sodium 125 L, Potassium 4.2, Chloride 90 L, Carbon Dioxide 28.0, Anion Gap 7, BUN 10, Creatinine 0.58 L, Estim Creat Clear Calc 136.35, Est GFR (MDRD) Af Amer 181, Est GFR (MDRD) Non-Af 150, BUN/Creatinine Ratio 17.1, Glucose 145 H , Calcium 8.7, Troponin I High Sens 6, B-Natriuretic Peptide 20.2 02/29/24 05:04: WBC 9.9, RBC 3.89 L, Hgb 12.1 L, Hct 34.9 L, MCV 89.7, MCH 31.1, MCHC 34.7, RDW Std Deviation 38.4, RDW Coeff of Pam 11.8, Plt Count 368, MPV 8.1, Immature Gran % (Auto) 0.400, Neut % (Auto) 93.5 H, Lymph % (Auto) 4.0 L, [place] % (Auto) 2.0, Eos % (Auto) 0.0, Baso % (Auto) 0.1, Absolute Neuts (auto) 9.3 H, Absolute Lymphs (auto) 0.40 L, Nucleated RBC % 0, Sodium 123 L, Potassium 4.0, Chloride 89 L, Carbon Dioxide 28.0, Anion Gap 6, BUN 8, Creatinine 0.54 L, Estim Creat Clear Calc 131.40, Est GFR (MDRD) Af Amer 200, Est GFR (MDRD) Non-Af 165, BUN/Creatinine Ratio 14.9, Glucose 183 H, Calcium 8.5, Phosphorus 3.0, Magnesium 2.1 Micro: Microbiology 02/28/24 15:47 Mucosa - Nasopharyngeal Respiratory Panel (PCR) - Final 02/28/24 15:37 Mucosa - Nose Coronavirus COVID-19 PCR - Final Radiography Diagnostic Testing: Radiology Impression Brain CT 02/28/24 13:07 IMPRESSION: Chronic involutional changes of the brain. Right mandibular fracture. Electronically Signed: Andrea Beltran MD at 13:55 EST , Facial/Sinus 02/28/24 13:07 IMPRESSION: Right mandibular condyle fracture. Electronically Signed: Andrea Beltran MD at 13:57 EST , Chest X-Ray 02/28/24 13:08 IMPRESSION: Degenerative changes, as described above. No demonstrated acute cardiopulmonary process. Electronically Signed: Andrea Beltran MD at 13:46 EST , Chest CTA 02/28/24 18:11 IMPRESSION: 1. No evidence of PE or aortic aneurysm or dissection. 2. Advanced coronary artery calcifications and/or stents. 3. Mild airway thickening without significant narrowing, correlate with cough. No confluent alveolar infiltrates or suspicious nodules. 3. Mild bilateral perinephric soft tissue stranding, nonspecific. 4. Multiple mild compression deformities of the thoracic spine. Evidence of at least late subacute to early chronic upper endplate fracture of T6 with compression deformity. Electronically Signed: Lucrecia Lira MD at 0:34 EST , Rhythm Strip Rhythm Strip: Sinus Rhythm Rate: 90 Ectopy: None Physical Exam Narrative GENERAL: cooperative HEENT: Laceration involving the chin EYES; Anicteric, Normal Conjunctiva NECK; supple, normal thyroid, RESPIRATORY: Diminished to auscultation CARDIOVASCULAR: Regular S1 S2, GI: soft, normoactive bowel sounds, : No Renal angle tenderness; EXTREMITIES: No edema, no clubbing, MUSCULOSKELETAL: no muscle wasting NEURO: Awake; no lateralizing signs. SKIN: No Rash PSYCH; Flat affect Assessment & Plan Assessment/Plan (1) Chin laceration: (2) Contusion of face: (3) Syncope: PLAN: Plan Patient is a 63-year-old gentleman presenting with a syncopal episode with subsequent facial trauma 1. Syncopal episode ? Etiology not clear at this point. Patient has been admitted to the progressive care unit for continuous telemetry monitoring. As part of patient's management ordered case shift orthostatic checks, serial cardiac enzymes, 2D echo. Subsequent management decision will be based on the etiology identified ? 02/29/2024; patient was found to have elevated D-dimer CTA was negative for PE. No significant events on telemetry. 2. Facial trauma ? Following syncopal episode. Patient did develop chin laceration which was sutured in the ED. He also did develop right mandibular condyle fracture. Plan is for patient to follow-up with maxillofacial surgeon as outpatient ? 02/29/2024 we will continue current pain regimen 3. Acute febrile illness ? Ordered COVID and viral respiratory panel ? 02/29/2024; patient viral respiratory panel came back negative he is however complaining of dysuria moreover his CTA did reports suspected pyelonephritis. Patient subsequently started on ceftriaxone pending culture result 4. COPD with acute exacerbation ? Patient started on bronchodilator treatment, systemic steroid as well as antibiotic therapy. Patient placed on oxygen titrated to keep saturation greater than 90. 5. Hyponatremia ? They appear to be some chronicity to patient's hyponatremia this is secondary to beer potomania. Patient was started on sodium tablet with daily monitoring of sodium levels ordered 6. Chronic alcohol dependence ? Patient is at significant risk for alcohol withdrawal subsequently placed on phenobarb taper 7. Tobacco dependence ? Counseled on cessation, offered nicotine patch for tobacco cravings 8. Hyperglycemia ? Patient does not have known history of diabetes ordered hemoglobin A1c 9. Hypertension ? Blood pressure controlled, home medications continued with dose adjustment as needed 10. DVT prophylaxis ? On enoxaparin Time spent in the patient's overall evaluation,decision-making process, review of diagnostic data, adjustment of management, discussion with other providers, nursing nursing and ancillary staff involved in patient's care documentation, 52 minutes Charges/Coding Visit Charges Inpatient E&M: 16955 [facility] Hosp L3
[2024-02-29] MEDS: Ceftriaxone 2 GM in 0.9% Normal Saline (50mL MB+) 50 ML IV (12:12)
[2024-02-29] MEDS: 0.9% Saline Lock 10 ML Syringe IV (14:02)
[2024-02-29 15:53] LABS: Color, Urine Yellow (Yellow); Glucose, Dipstick 100 mg/dl (Normal); Ketone-Dipstick Negative (Negative); Leukocyte Esterase-Dipstick Negative /ul (Negative); Nitrite-Dipstick Negative (Negative); Occult Blood-Urine Negative /ul (Negative); Protein-Dipstick 30 mg/dl (Negative); Specific Gravity, Urine 1.015 (1.002-1.030); Urine Bilirubin Dipstick Negative (Negative); Urine Clarity Clear (Clear); Urine Urobilinogen 1 mg/dl (Normal)
[2024-02-29] MEDS: Senna/Docusate Sodium 1 Tablet 2 TABLET PO (23:23)
[2024-03-01] VITALS (10 sets, daily range): BP systolic 123–145; BP diastolic 85–93; PULSE 92–117; RESP 16–26; TEMP 36.2–37; O2SAT 92–98
[2024-03-01] MEDS: Phenobarbital 32.4 MG Tablet 64.8 MG PO ×6 (00:50→21:41)
[2024-03-01] MEDS: Acetaminophen 500 MG Tablet 1000 MG PO ×3 (05:12→21:41)
[2024-03-01] MEDS: Ipratropium/Albuterol Sulfate 3 ML AMPUL.NEB INHALATION ×5 (05:14→19:37)
[2024-03-01] MEDS: oxyCODONE 5 MG Tablet 10 MG PO (05:15)
[2024-03-01 07:13] LABS: Absolute Lymphocyte Count 0.64 X10^3/uL (0.83-4.51); Absolute Neutrophil Count 9.8 X10^3/uL (2.0-7.7); Basophil# 0.02 X10^3/uL; Basophil% 0.2 % (0-1); Hematocrit 34.2 % (40-54); Hemoglobin 11.6 g/dL (13.0-16.5); Lymphocyte # 0.64 X10^3/ul (0.83-4.51); Lymphocyte % 5.6 % (19-41); Mean Corp Hgb Conc 33.9 g/dL (32-36); Mean Corpuscular Volume 91.4 fL (80-94); Mean Platelet Vol. 8.2 fl (6.2-12.0); Monocyte# 0.88 X10^3/uL; Monocyte% 7.7 % (0-10); NRBC Flagged by Analyzer 0 % (0-5); Neutrophil # 9.83 X10^3/uL (2.7-7.7); Platelet Count 388 K/mm3 (150-450); RBC Distribution Width CV 11.9 % (11.6-14.6); RBC Distribution Width SD 39.8 fl (35.1-43.9); Red Blood Count 3.74 M/mm3 (4.6-6.2); White Blood Count 11.4 K/mm3 (4.4-11.0)
[2024-03-01 07:53] LABS: Anion Gap 7 (5-15); BUN 7 mg/dL (7-18); BUN/Creat Ratio 13.4 RATIO (10-20); Calcium,Total 8.5 mg/dL (8.5-10.1); Chloride 94 mmol/L (98-107); Creatinine, Serum 0.52 mg/dL (0.70-1.30); EST Glomerular Filtration Rate 170 mL/min (>60); Est Glom Filt Rate - Afr Amer 206 mL/min (>60); Estimated Creatinine Clearance 136.46 ml/min; Glucose 145 mg/dL (74-106); Sodium Level 129 mmol/L (136-145)
--- NOTE | 2024-03-01 08:13 | PN.HOSP_ITS ---
Reason for Visit Reason for Visit: Diagnoses Syncope and collapse (02/28/24) Contusion of other part of head, initial encounter (02/28/24) Laceration without foreign body of other part of head, initial encounter (02/28/24) Subjective Subjective Patient seen complains of difficulty breathing. Repeated patient's chest x-ray did order 1 dose of IV Lasix Objective Data Objective Data Vital Signs: Vital Signs Temp Pulse Resp BP Pulse Ox O2 Del Method O2 Flow Rate 97.5 F L 98 26 H 136/93 H 98 Nasal Cannula 2 03/01/24 05:03 03/01/24 07:34 03/01/24 07:34 03/01/24 05:03 03/01/24 07:34 03/01/24 07:34 03/01/24 07:34 Oxygen Flow Rate (L/min) 2 Oxygen Delivery Method Nasal Cannula Weight: 65.5 kg Body Mass Index (BMI) 20.7 Intake & Output: Intake and Output for Last 24 Hours 02/28/24 02/29/24 03/01/24 23:59 23:59 23:59 Intake Total 295 / 775 3336.67 / 3576.67 1480 / 1480 Balance 295 / 775 3336.67 / 3576.67 1480 / 1480 Lab / Micro Data 03/01/24 06:31 03/01/24 06:31 Labs: Laboratory Results - last 24 hr 02/29/24 15:15: Urine Color Yellow, Urine Clarity Clear, Urine pH 6.0, Ur Specific [place] 1.015, Urine Protein 30 H, Urine Glucose (UA) 100 H, Urine Ketones Negative, Urine Occult Blood Negative, Urine Nitrite Negative, Urine Bilirubin Negative, Urine Urobilinogen 1 H, Ur Leukocyte Esterase Negative 03/01/24 06:31: WBC 11.4 H, RBC 3.74 L, Hgb 11.6 L, Hct 34.2 L, MCV 91.4, MCH 31.0, MCHC 33.9, RDW Std Deviation 39.8, RDW Coeff of Pam 11.9, Plt Count 388, MPV 8.2, Immature Gran % (Auto) 0.500, Neut % (Auto) 86.0 H, Lymph % (Auto) 5.6 L, [place] % (Auto) 7.7, Eos % (Auto) 0.0, Baso % (Auto) 0.2, Absolute Neuts (auto) 9.8 H, Absolute Lymphs (auto) 0.64 L, Nucleated RBC % 0, Sodium 129 L, Potassium 4.0, Chloride 94 L, Carbon Dioxide 28.0, Anion Gap 7, BUN 7, Creatinine 0.52 L, Estim Creat Clear Calc 136.46, Est GFR (MDRD) Af Amer 206, Est GFR (MDRD) Non-Af 170, BUN/Creatinine Ratio 13.4, Glucose 145 H, Calcium 8.5 Micro: Microbiology 02/28/24 15:47 Mucosa - Nasopharyngeal Respiratory Panel (PCR) - Final 02/28/24 15:37 Mucosa - Nose Coronavirus COVID-19 PCR - Final Rhythm Strip Rhythm Strip: Sinus Rhythm Rate: 90 Ectopy: None Physical Exam Narrative GENERAL: cooperative, but dyspneic at rest HEENT: Laceration involving the chin EYES; Anicteric, Normal Conjunctiva NECK; supple, normal thyroid, RESPIRATORY: Diminished to auscultation CARDIOVASCULAR: Regular S1 S2, GI: soft, normoactive bowel sounds, : No Renal angle tenderness; EXTREMITIES: No edema, no clubbing, MUSCULOSKELETAL: no muscle wasting NEURO: Awake; no lateralizing signs. SKIN: No Rash PSYCH; Flat affect Assessment & Plan Assessment/Plan (1) Chin laceration: (2) Contusion of face: (3) Syncope: PLAN: Plan Patient is a 63-year-old gentleman presenting with a syncopal episode with subsequent facial trauma 1. Syncopal episode ? Etiology not clear at this point. Patient has been admitted to the progressive care unit for continuous telemetry monitoring. As part of patient's management ordered case shift orthostatic checks, serial cardiac enzymes, 2D echo. Subsequent management decision will be based on the etiology identified ? 02/29/2024; patient was found to have elevated D-dimer CTA was negative for PE. No significant events on telemetry. ? 03/01/2024; patient had 2D echo performed this a.m. we will follow-up on result 2. Facial trauma ? Following syncopal episode. Patient did develop chin laceration which was sutured in the ED. He also did develop right mandibular condyle fracture. Plan is for patient to follow-up with maxillofacial surgeon as outpatient ? 02/29/2024 we will continue current pain regimen 3. Acute febrile illness ? Ordered COVID and viral respiratory panel ? 02/29/2024; patient viral respiratory panel came back negative he is however complaining of dysuria moreover his CTA did reports suspected pyelonephritis. Patient subsequently started on ceftriaxone pending culture result 4. COPD with acute exacerbation ? Patient started on bronchodilator treatment, systemic steroid as well as antibiotic therapy. Patient placed on oxygen titrated to keep saturation greater than 90. ? 03/01/2024;Patient seen complains of difficulty breathing. Repeated patient's chest x-ray did order 1 dose of IV Lasix 5. Hyponatremia ? They appear to be some chronicity to patient's hyponatremia this is secondary to beer potomania. Patient was started on sodium tablet with daily monitoring of sodium levels ordered 6. Chronic alcohol dependence ? Patient is at significant risk for alcohol withdrawal subsequently placed on phenobarb taper ? 03/01/2024; patient has tolerated alcohol taper well so far 7. Tobacco dependence ? Counseled on cessation, offered nicotine patch for tobacco cravings 8. Hyperglycemia ? Patient does not have known history of diabetes ordered hemoglobin A1c 9. Hypertension ? Blood pressure controlled, home medications continued with dose adjustment as needed 10. DVT prophylaxis ? On enoxaparin Time spent in the patient's overall evaluation,decision-making process, review of diagnostic data, adjustment of management, discussion with other providers, nursing nursing and ancillary staff involved in patient's care documentation, 38 minutes Charges/Coding Visit Charges Inpatient E&M: 35829 Subs Hosp L2
[2024-03-01] MEDS: Thiamine Hydrochloride 100 MG Tablet PO (09:03)
[2024-03-01] MEDS: predniSONE 20 MG Tablet 40 MG PO (09:03)
[2024-03-01] MEDS: Sodium Chloride 1 GM Tablet PO ×2 (09:03→21:41)
[2024-03-01] MEDS: Folic Acid 1 MG Tablet PO (09:03)
[2024-03-01] MEDS: Ceftriaxone 2 GM in 0.9% Normal Saline (50mL MB+) 50 ML IV (09:07)
[2024-03-01] MEDS: Pantoprazole Sodium 40 MG Tablet PO (09:08)
--- NOTE | 2024-03-01 09:45 | RAD_ITS ---
STUDY: X-RAY CHEST REASON FOR EXAM: Male, 63 years old. Worsening shortness of breath TECHNIQUE: PA and lateral views of the chest. COMPARISON: 02/28/2024 FINDINGS: EKG leads overlie the chest Lungs are hyperexpanded without a superimposed acute pulmonary process. No significant change since the previous study. There is no demonstrated pleural abnormality. Normal size heart. Normal mediastinum and chilo. Normal visualized pulmonary arteries. Normal visualized aortic arch and descending thoracic aorta. There are diffuse degenerative changes of the visualized thoracic spine. Normal visualized ribs, clavicles, and shoulders. There is no demonstrated abnormality of the visualized soft tissue structures of the upper abdomen. RAD/Chest PA and Lateral IMPRESSION: Hyperinflated lungs without a superimposed acute pulmonary process, no interval change Electronically Signed: Luca Rodriguez MD at 10:59 EST ,
[2024-03-01] MEDS: Furosemide 40 MG/4 ML Vial IV (10:46)
--- NOTE | 2024-03-01 11:00 | CASEMGMT ---
WHIT ROBINS received call from Spencer ROBINS at [facility] to offer assistance with DC planning. WHIT ROBINS updated Spencer regarding current plans. Spencer provided contact information [phone] ext [phone].
--- NOTE | 2024-03-01 13:01 | CASEMGMT ---
WHIT ROBINS Assessment: Face to Face with pt for initial transition planning/care coordination assessment. RN JULIENNE introduced self and role at [facility], pt voices understanding and consents to assessment. Pt is A&O x4 and answers all questions appropriately at this time. Pt resting in bed in no distress. Care providers, pharmacy, and demographics verified/updated. Admitting Dx: Syncopal episode PCP: [facility] Specialists: Juan Manuel, Contact Center Manager; Rohan, Pain management Preferred Pharmacy: [facility] Insurance: [employer] Prescription Benefit: yes LNOK: Living Arrangements: Pt lives with and daughter ADLs: Pt states I with ADLs and IADLs. Transportation: Pt drives self and denies concerns with transportation. DME: Pt states has O2 through [employer], uses HS, nebulizer, pulse ox HHC/SNF: Denies Hx of. Pt states no concerns with going home at time of dc. Pt states no further concerns/needs. Advised pt to ask CM if any further question/concerns/needs arise, voices understanding. Pt Goal: Home Plan: Home, follow for any DME needs.
[2024-03-01] MEDS: Senna/Docusate Sodium 1 Tablet 2 TABLET PO (17:36)
[2024-03-02] VITALS (8 sets, daily range): BP systolic 139–147; BP diastolic 89–90; PULSE 85–95; RESP 16–20; TEMP 36.7; O2SAT 89–99
[2024-03-02] MEDS: 0.9% Saline Lock 10 ML Syringe IV ×2 (01:27→09:09)
[2024-03-02] MEDS: Phenobarbital 32.4 MG Tablet 64.8 MG PO ×2 (01:27→06:20)
[2024-03-02] MEDS: Ipratropium/Albuterol Sulfate 3 ML AMPUL.NEB INHALATION ×3 (03:01→11:13)
[2024-03-02 06:12] LABS: Absolute Lymphocyte Count 1.59 X10^3/uL (0.83-4.51); Absolute Neutrophil Count 8.2 X10^3/uL (2.0-7.7); Basophil# 0.03 X10^3/uL; Basophil% 0.3 % (0-1); Eosinophil# 0.01 X10^3/uL; Eosinophils% 0.1 % (0-5); Hematocrit 35.5 % (40-54); Lymphocyte # 1.59 X10^3/ul (0.83-4.51); Lymphocyte % 14.4 % (19-41); Mean Corp Hgb Conc 33.8 g/dL (32-36); Mean Corpuscular Volume 91.7 fL (80-94); Mean Platelet Vol. 8.1 fl (6.2-12.0); Monocyte# 1.17 X10^3/uL; Monocyte% 10.6 % (0-10); NRBC Flagged by Analyzer 0 % (0-5); Neutrophil # 8.24 X10^3/uL (2.7-7.7); Neutrophil % 74.2 % (47-70); Platelet Count 376 K/mm3 (150-450); RBC Distribution Width CV 11.9 % (11.6-14.6); Red Blood Count 3.87 M/mm3 (4.6-6.2); White Blood Count 11.1 K/mm3 (4.4-11.0)
[2024-03-02] MEDS: Acetaminophen 500 MG Tablet 1000 MG PO (06:20)
[2024-03-02 06:30] LABS: Anion Gap 4 (5-15); BUN 8 mg/dL (7-18); BUN/Creat Ratio 17.4 RATIO (10-20); Calcium,Total 8.5 mg/dL (8.5-10.1); Chloride 92 mmol/L (98-107); Creatinine, Serum 0.46 mg/dL (0.70-1.30); EST Glomerular Filtration Rate 197 mL/min (>60); Est Glom Filt Rate - Afr Amer 239 mL/min (>60); Estimated Creatinine Clearance 154.26 ml/min; Glucose 100 mg/dL (74-106); Potassium 3.4 mmol/L (3.5-5.1); Sodium Level 129 mmol/L (136-145)
[2024-03-02] MEDS: predniSONE 20 MG Tablet 40 MG PO (09:01)
[2024-03-02] MEDS: Folic Acid 1 MG Tablet PO (09:01)
[2024-03-02] MEDS: Sodium Chloride 1 GM Tablet PO (09:02)
[2024-03-02] MEDS: Thiamine Hydrochloride 100 MG Tablet PO (09:02)
[2024-03-02] MEDS: Pantoprazole Sodium 40 MG Tablet PO (09:02)
[2024-03-02] MEDS: Ceftriaxone 2 GM in 0.9% Normal Saline (50mL MB+) 50 ML IV (09:14)
[2024-03-02] MEDS: Potassium Chloride Oral Tablet 20 MEQ PO (10:02)
--- NOTE | 2024-03-02 10:10 | CASEMGMT ---
"WHIT ROBINS updated by hospitalist that patient will need outpatient follow-up with oral surgeon and ENT. WHIT ROBINS in to discuss discharge planning with patient, at bedside. Tiana states she has called several oral surgeons and has not been able to setup appt for patient either due them not treating broken jaw or she has not gotten and return call. WHIT ROBINS provided [facility] information to to see if they would be able to help facilitate oral surgeon outpatient appt. WHIT ROBINS also provided [facility] oral surgeons in-network with patient's insurance from [employer] web site. WHIT ROBINS discussed outpatient ENT follow-up, and patient prefer [facility]. Patient and had no further questions or concerns. Will monitor for home oxygen increase. WHIT ROBINS update PC[facility] community development coordinator of request for [facility] follow-up appt. CM will continue to follow this patient and plan for a safe discharge."
[2024-03-02] MEDS: Polyethylene Glycol 3350 17 GM PACKET PO (10:56)
[2024-03-02] MEDS: Magnesium Citrate 300 ML 150 ML PO (10:56)
--- NOTE | 2024-03-02 11:19 | PCM.DC.SUM ---
Providers Date of Admission: 02/28/24 Date of Discharge: 03/02/24 Primary Care Physician: Dr. Alfonso Fortune MD Reason For Visit: SYNCOPAL EPISODE Diagnosis Discharge Diagnosis (1) Chin laceration: Status: Acute Code(s): S01.81XA - Laceration without foreign body of other part of head, initial encounter (2) Contusion of face: Status: Acute Code(s): S00.83XA - Contusion of other part of head, initial encounter (3) Syncope: Status: Acute Code(s): R55 - Syncope and collapse Plan Patient is a 63-year-old gentleman presenting with a syncopal episode with subsequent facial trauma 1. Syncopal episode ? Etiology not clear at this point. Patient has been admitted to the progressive care unit for continuous telemetry monitoring. As part of patient's management ordered case shift orthostatic checks, serial cardiac enzymes, 2D echo. Subsequent management decision will be based on the etiology identified ? 02/29/2024; patient was found to have elevated D-dimer CTA was negative for PE. No significant events on telemetry. ? 03/01/2024; patient had 2D echo performed this a.m. we will follow-up on result ? 03/02/2024; echo demonstrated EF of 60% with no regional wall motion abnormalities valvular issues per 2. Facial trauma ? Following syncopal episode. Patient did develop chin laceration which was sutured in the ED. He also did develop right mandibular condyle fracture. Plan is for patient to follow-up with maxillofacial surgeon as outpatient ? 02/29/2024 we will continue current pain regimen ? 03/02/2024 patient did complain of ear pain there was however no ENT on-call on the day of his discharge and appointment was set up with Dr. Claros for the patient on discharge 3. Acute febrile illness ? Ordered COVID and viral respiratory panel ? 02/29/2024; patient viral respiratory panel came back negative he is however complaining of dysuria moreover his CTA did reports suspected pyelonephritis. Patient subsequently started on ceftriaxone pending culture result 4. COPD with acute exacerbation ? Patient started on bronchodilator treatment, systemic steroid as well as antibiotic therapy. Patient placed on oxygen titrated to keep saturation greater than 90. ? 03/01/2024;Patient seen complains of difficulty breathing. Repeated patient's chest x-ray did order 1 dose of IV Lasix 5. Hyponatremia ? They appear to be some chronicity to patient's hyponatremia this is secondary to beer potomania. Patient was started on sodium tablet with daily monitoring of sodium levels ordered 6. Chronic alcohol dependence ? Patient is at significant risk for alcohol withdrawal subsequently placed on phenobarb taper ? 03/01/2024; patient has tolerated alcohol taper well so far 7. Tobacco dependence ? Counseled on cessation, offered nicotine patch for tobacco cravings 8. Hyperglycemia ? Patient does not have known history of diabetes ordered hemoglobin A1c 9. Hypertension ? Blood pressure controlled, home medications continued with dose adjustment as needed 10. DVT prophylaxis ? On enoxaparin Time spent in the patient's overall evaluation,decision-making process, review of diagnostic data, adjustment of management, discussion with other providers, nursing nursing and ancillary staff involved in patient's care documentation, 38 minutes Medications at Discharge Home Medications epinephrine 0.3 mg/0.3 mL injection, auto-injector (EpiPen 2-Jesse) 0.3 mg IM ONCE PRN anaphylaxis 07/07/23 albuterol sulfate 90 mcg/actuation aerosol inhaler 1 puff inhalation Q6H PRN SOB #8.5 grams 01/16/24 Disability Placard #1 ea 01/30/24 losartan 100 mg tablet 100 mg PO QDAY blood pressure 01/30/24 omeprazole 40 mg capsule,delayed release 40 mg PO QDAY reflux 01/30/24 fluticasone 500 mcg-salmeterol 50 mcg/dose blistr powdr for inhalation (Advair Diskus) 1 inh inhalation BID respiratory #3 ea 02/16/24 tiotropium bromide 2.5 mcg/actuation mist for inhalation (Spiriva Respimat) 2 inh inhalation QDAY copd #3 ea 02/16/24 duloxetine 30 mg capsule,delayed release 30 mg PO DAILY mood 02/28/24 acetaminophen 500 mg tablet 1,000 mg (2 x 500 mg) PO Q8 #0 tabs 03/02/24 cefdinir 300 mg capsule 300 mg PO BID #10 caps 03/02/24 folic acid 1 mg tablet 1 mg PO DAILY@0800 #30 tabs 03/02/24 oxycodone 5 mg tablet 5 mg PO Q4H PRN PRN Pain Score 4-10 5 days #14 tabs 03/02/24 potassium chloride 20 mEq tablet,extended release(part/cryst) 20 meq PO BIDCM #20 tabs 03/02/24 prednisone 20 mg tablet 40 mg (2 x 20 mg) PO DAILY@0800 #10 tabs 03/02/24 sennosides 8.6 mg-docusate sodium 50 mg tablet (Stimulant Laxative Plus) 2 tab PO BID PRN PRN Constipation #30 tabs 03/02/24 sodium chloride 1,000 mg soluble tablet 1,000 mg PO BID #60 tabs 03/02/24 thiamine HCl (vitamin B1) 100 mg tablet 100 mg PO DAILYCM #30 tabs 03/02/24 Physical Exam Narrative GENERAL: cooperative, HEENT: Laceration involving the chin EYES; Anicteric, Normal Conjunctiva NECK; supple, normal thyroid, RESPIRATORY: Diminished to auscultation CARDIOVASCULAR: Regular S1 S2, GI: soft, normoactive bowel sounds, : No Renal angle tenderness; EXTREMITIES: No edema, no clubbing, MUSCULOSKELETAL: no muscle wasting NEURO: Awake; no lateralizing signs. SKIN: No Rash PSYCH; Flat affect Weight / BMI Weight Weight: 65.5 kg Body Mass Index (BMI) 20.7 ABG / Lab / Microbiology Data 03/02/24 05:42 03/02/24 05:42 Laboratory: Laboratory Results - last 24 hr 03/02/24 05:42: WBC 11.1 H, RBC 3.87 L, Hgb 12.0 L, Hct 35.5 L, MCV 91.7, MCH 31.0, MCHC 33.8, RDW Std Deviation 40.0, RDW Coeff of Pam 11.9, Plt Count 376, MPV 8.1, Immature Gran % (Auto) 0.400, Neut % (Auto) 74.2 H, Lymph % (Auto) 14.4 L, [place] % (Auto) 10.6 H, Eos % (Auto) 0.1, Baso % (Auto) 0.3, Absolute Neuts (auto) 8.2 H, Absolute Lymphs (auto) 1.59, Nucleated RBC % 0, Sodium 129 L, Potassium 3.4 L, Chloride 92 L, Carbon Dioxide 33.0 H, Anion Gap 4 L, BUN 8, Creatinine 0.46 L, Estim Creat Clear Calc 154.26, Est GFR (MDRD) Af Amer 239, Est GFR (MDRD) Non-Af 197, BUN/Creatinine Ratio 17.4, Glucose 100, Calcium 8.5 Microbiology: Microbiology 02/29/24 15:15 Urine, Clean Catch Urine Culture - Final Culture exhibits no growth. 02/28/24 15:47 Mucosa - Nasopharyngeal Respiratory Panel (PCR) - Final 02/28/24 15:37 Mucosa - Nose Coronavirus COVID-19 PCR - Final Radiography Diagnostic Testing: Radiology Impression Echocardiogram 02/28/24 16:40 Interpretation Summary Normal LV size. Left ventricular systolic function is normal. The estimated ejection fraction is 60 %. Structurally normal valves. Ordering Physician: Felix Garcia Referring Physician: Alfonso Fortune MD Performed By: Laya Orr RDCS D/C Instructions Discharge Diet: No restrictions Discharge Activity: Return to Normal Activity Call your doctor if you observe: Fever of 101 or Higher, Shortness of breath, Fainting spells and Chest pain DC O2, CPAP, BIPAP Needs RN Home O2 Qualification: Home O2 Qualification: Is the patient on home oxygen Yes 03/02/24 11:59 Home O2 Qualification: AT REST 1-Pulse Ox at rest 91 03/02/24 11:59 1- Oxygen flow rate at rest 0 03/02/24 11:59 Home O2 Qualification: WITH AMBULATION 1- Pulse Ox with ambulation 89 03/02/24 11:59 1- Oxygen Flow Rate with 0 03/02/24 11:59 ambulation Home O2 Discharge instructions: Yes Type of respiratory needs?: Oxygen Oxygen frequency: Continuous Continuous oxygen liters per minute: 2 L continuous DC home with Oxygen: Yes Home O2 Review: I have reviewed the oxygen testing, and the patient qualifies for home oxygen equipment and portability. The patient is mobile in the home and the community. Meaningful Use Info Meaningful Use Meaningful Use Diagnoses (Choose all that apply): None applicable Ischemic Stroke Statin Dosing Therapy Reference: STATIN DOSE THERAPY REFERENCE: * Patients > 75 years receive moderate or high dose statin therapy. * Patients 75 years or YOUNGER should receive HIGH intensity statin dose unless contraindicated. You will be required to document reason for non-treatment if statin daily dose does not meet guidelines. HIGH DOSE STATIN THERAPY DAILY Atorvastatin > than or = to 40 mg Rosuvastatin > than or = to 20 mg Amlodipine + Atorvastatin > than or = to 2.5/40 mg Ezetimibe + Simvastatin 10/80 mg Simvastatin 80mg Discharge Plan Admission Admit Date/Time: 02/28/24 15:00 Attending Provider: Felix Garcia Primary Care Provider: Alfonso Fortune Discharge Orders/Prescriptions Prescriptions: New acetaminophen 500 mg Tablet 1,000 mg PO Q8 Qty: 0 0RF oxycodone 5 mg Tablet 5 mg PO Q4H PRN PRN (Reason: Pain Score 4-10) 5 Days Qty: 14 0RF prednisone 20 mg Tablet 40 mg PO DAILY@0800 Qty: 10 0RF potassium chloride 20 mEq Tablet,Er Particles/Crystals 20 meq PO BIDCM Qty: 20 0RF sodium chloride 1,000 mg Tablet,Soluble 1,000 mg PO BID Qty: 60 0RF thiamine HCl (vitamin B1) 100 mg Tablet 100 mg PO DAILYCM Qty: 30 0RF folic acid 1 mg Tablet 1 mg PO DAILY@0800 Qty: 30 0RF cefdinir 300 mg capsule 300 mg PO BID Qty: 10 0RF sennosides-docusate sodium [Stimulant Laxative Plus] 8.6-50 mg Tablet 2 tab PO BID PRN PRN (Reason: Constipation) Qty: 30 0RF Continued omeprazole 40 mg capsule,delayed release(DR/EC) 40 mg PO QDAY losartan 100 mg tablet 100 mg PO QDAY (DME) Disability Placard See Rx Instructions .ROUTE .MEDSUPPLY Qty: 1 0RF Rx Instructions: expires 01/29/2029 epinephrine [EpiPen 2-Jesse] 0.3 mg/0.3 mL auto-injector 0.3 mg IM ONCE PRN (Reason: anaphylaxis) Rx Instructions: as a single dose; may repeat once duloxetine 30 mg capsule,delayed release(DR/EC) 30 mg PO DAILY albuterol sulfate 90 mcg/actuation HFA aerosol inhaler 1 puff INHALATION Q6H PRN (Reason: SOB) Qty: 8.5 11RF Spiriva Respimat 2.5 mcg/actuation mist 2 inh inhalation QDAY Qty: 3 3RF Rx Instructions: administer at approximately the same time(s) each day fluticasone propion-salmeterol [Advair Diskus] 500-50 mcg/dose blister with device 1 inh inhalation BID Qty: 3 3RF Discontinued hydrocodone-acetaminophen 5-325 mg tablet 1 tab PO Q6H PRN PRN (Reason: Pain) 3 Days Qty: 12 0RF Referrals / Follow Up: Alfonso Fortune MD [Primary Care Provider] - 03/08/24 1:20 pm Alfonso Claros MD [Med Staff - Active Staff] - 03/10/24 2:30 pm (Please arrive 15 minutes prior to appointment time and bring your insurance information along with your ID. ) Disposition Disposition (needs filled in before D/C Order can be placed): Home, Self Care Charges/Coding Visit Charges Inpatient E&M: 72454 Disch Hosp >30min
--- NOTE | 2024-03-02 12:45 | CASEMGMT ---
WHIT ROBINS updated by nursing that patient does not qualify for increase in home oxygen, patient was using a walker during testing. WHIT ROBINS in to discuss walker and outpatient therapy at discharge. Patient asked RN CM to discuss with . RN CM called and discuss FWW and outpatient therapy. prefers [facility] for outpatient therapy and requested script be sent to [facility] with request to call to schedule. would like [facility] for walker setup. had no furhter questions or concerns. RN JULIENNE received script for outpatient therapy and walker. WHIT ROBINS sent referral to [facility] and arranged for walker to be delivered to room. WHIT CM faxed script to [facility] with request to call to schedule appt. WHIT ROBINS updated discharge plan.
--- NOTE | 2024-03-02 15:01 | PHA.DC.MR.R ---
Pharmacy CT Med Reconciliation Pharmacy Service has performed discharge medication reconciliation for this patient. Medication education papers prepared, unable to nutrition counselor prior to discharge. Medications reviewed. The patient's discharge medication list was reviewed for discrepancies and discrepancies were resolved. Medications at Discharge Home Medications epinephrine 0.3 mg/0.3 mL injection, auto-injector (EpiPen 2-Jesse) 0.3 mg IM ONCE PRN anaphylaxis 07/07/23 albuterol sulfate 90 mcg/actuation aerosol inhaler 1 puff inhalation Q6H PRN SOB #8.5 grams 01/16/24 Disability Placard #1 ea 01/30/24 losartan 100 mg tablet 100 mg PO QDAY blood pressure 01/30/24 omeprazole 40 mg capsule,delayed release 40 mg PO QDAY reflux 01/30/24 fluticasone 500 mcg-salmeterol 50 mcg/dose blistr powdr for inhalation (Advair Diskus) 1 inh inhalation BID respiratory #3 ea 02/16/24 tiotropium bromide 2.5 mcg/actuation mist for inhalation (Spiriva Respimat) 2 inh inhalation QDAY copd #3 ea 02/16/24 duloxetine 30 mg capsule,delayed release 30 mg PO DAILY mood 02/28/24 acetaminophen 500 mg tablet 1,000 mg (2 x 500 mg) PO Q8 #0 tabs 03/02/24 cefdinir 300 mg capsule 300 mg PO BID #10 caps 03/02/24 folic acid 1 mg tablet 1 mg PO DAILY@0800 #30 tabs 03/02/24 oxycodone 5 mg tablet 5 mg PO Q4H PRN PRN Pain Score 4-10 5 days #14 tabs 03/02/24 potassium chloride 20 mEq tablet,extended release(part/cryst) 20 meq PO BIDCM #20 tabs 03/02/24 prednisone 20 mg tablet 40 mg (2 x 20 mg) PO DAILY@0800 #10 tabs 03/02/24 sennosides 8.6 mg-docusate sodium 50 mg tablet (Stimulant Laxative Plus) 2 tab PO BID PRN PRN Constipation #30 tabs 03/02/24 sodium chloride 1,000 mg soluble tablet 1,000 mg PO BID #60 tabs 03/02/24 thiamine HCl (vitamin B1) 100 mg tablet 100 mg PO DAILYCM #30 tabs 03/02/24
== END 2024-03-02 14:14 | disposition home or self-care (01) | DRG 312 ==
LOC: ED 15:08 → PCU 15:16
PROVIDERS: Admitting Provider Internal Medicine; Emergency Provider Emergency Medicine; PCP Family Medicine; Visit Provider Internal Medicine
DX: R55 Syncope and collapse (principal); E87.1 Hypo-osmolality and hyponatremia; J44.1 Chronic obstructive pulmonary disease with (acute) exacerbation; S02.611A Fracture of condylar process of right mandible, initial encounter for closed fracture; N12 Tubulo-interstitial nephritis, not specified as acute or chronic; F10.20 Alcohol dependence, uncomplicated; I10 Essential (primary) hypertension; F17.210 Nicotine dependence, cigarettes, uncomplicated; W19.XXXA Unspecified fall, initial encounter; K58.9 Irritable bowel syndrome, unspecified; S01.81XA Laceration without foreign body of other part of head, initial encounter; S01.512A Laceration without foreign body of oral cavity, initial encounter; H92.09 Otalgia, unspecified ear; R79.1 Abnormal coagulation profile; R73.9 Hyperglycemia, unspecified; R07.81 Pleurodynia; Y92.009 Unspecified place in unspecified non-institutional (private) residence as the place of occurrence of the external cause; Z79.899 Other long term (current) drug therapy; Z79.51 Long term (current) use of inhaled steroids
CPT/HCPCS: 36415; 70450; 70486; 71046; 71275; 80048; 81002; 83735; 83880; 84100; 84484; 85025; 85379; 87086; 87633; 87635; 93005; 93306; 94640; 97116; 97162; 97165; 97530; 99285; Q9967; A4216; J0696; J1940; J2405

== ENCOUNTER → 2024-03-08 | Outpatient (CLI) | payer OTHER, SELFPAY ==
[2024-03-08 18:51] LABS: Osmolality, Serum 269 mOsm/KG (280-301)
[2024-03-08 18:58] LABS: ALB/GLOB Ratio 0.8 RATIO (0.9-2.4); AST(SGOT) 22 U/L (15-37); Alanine Aminotransfer ALT/SGPT 25 U/L (16-61); Albumin, Serum 3.1 g/dL (3.2-5.0); Alkaline Phosphatase 79 U/L (45-117); Anion Gap 7 (5-15); BUN 10 mg/dL (7-18); BUN/Creat Ratio 17.4 RATIO (10-20); Calcium,Total 8.9 mg/dL (8.5-10.1); Chloride 94 mmol/L (98-107); Creatinine, Serum 0.57 mg/dL (0.70-1.30); EST Glomerular Filtration Rate 153 mL/min (>60); Est Glom Filt Rate - Afr Amer 185 mL/min (>60); Globulin 4.1 g/dL (2.2-4.2); Glucose 92 mg/dL (74-106); Potassium 4.6 mmol/L (3.5-5.1); Protein, Total 7.2 g/dL (6.4-8.2); Sodium Level 128 mmol/L (136-145); Thyroid Stim Hormone (TSH) 0.925 uIU/mL (0.358-3.740)
[2024-03-08 19:01] LABS: Vitamin B12 413 pg/mL (211-911)
[2024-03-08 23:02] LABS: Absolute Lymphocyte Count 0.54 X10^3/uL (0.83-4.51); Absolute Neutrophil Count 11.6 X10^3/uL (2.0-7.7); Basophil# 0.03 X10^3/uL; Basophil% 0.2 % (0-1); Hematocrit 39.2 % (40-54); Hemoglobin 12.9 g/dL (13.0-16.5); Lymphocyte # 0.54 X10^3/ul (0.83-4.51); Lymphocyte % 4.3 % (19-41); Mean Corp Hgb Conc 32.9 g/dL (32-36); Mean Corpuscular Hgb 30.9 pg (27.0-32.0); Mean Corpuscular Volume 93.8 fL (80-94); Monocyte# 0.38 X10^3/uL; NRBC Flagged by Analyzer 0 % (0-5); Neutrophil # 11.64 X10^3/uL (2.7-7.7); POSITIVE DIFFERENTIAL YES; Platelet Count 568 K/mm3 (150-450); RBC Distribution Width CV 11.7 % (11.6-14.6); RBC Distribution Width SD 40.1 fl (35.1-43.9); Red Blood Count 4.18 M/mm3 (4.6-6.2); White Blood Count 12.7 K/mm3 (4.4-11.0)
[2024-03-11 14:08] LABS: GGTP 39 IU/L (0-65)
== END | disposition home or self-care (01) ==
LOC: MFPLAB 14:43
PROVIDERS: PCP Family Medicine; Referring Provider Family Medicine; Visit Provider Family Medicine
DX: R53.83 Other fatigue (principal); F10.10 Alcohol abuse, uncomplicated
CPT/HCPCS: 36415; 80053; 82533; 82607; 82977; 83930; 84403; 84443; 85025

== ENCOUNTER 2024-03-15 09:35 | Inpatient (IN) | payer OTHER, SELFPAY ==
[2024-03-15] VITALS (21 sets, daily range): BP systolic 109–147; BP diastolic 75–85; PULSE 96–132; RESP 16–22; TEMP 36.6–37.5; O2SAT 89–98; BMI 20.9; BMI 20.2
--- NOTE | 2024-03-15 10:01 | EKG12_ITS ---
Test Reason : SOB/INCREASED HR Blood Pressure : */* mmHG Vent. Rate : 126 BPM Atrial Rate : 126 BPM P-R Int : 186 ms QRS Dur : 92 ms QT Int : 274 ms P-R-T Axes : 84 -24 88 degrees QTcB Int : 396 ms Sinus tachycardia Septal infarct , age undetermined Abnormal ECG Confirmed by JAME ACEVES, HERNAN ([id number]), medical transcription editor KEVON CHRISTINE ([id number]) on 03/23/2024 6:37:42 AM Referred By: KELLIE/KATHI Confirmed By: HERNAN KILGORE MD
--- NOTE | 2024-03-15 10:03 | EDS_ITS ---
HPI History of Present Illness Chief Complaint: Shortness of Breath Narrative Narrative: Patient is a 63-year-old male with past medical history of COPD, alcohol abuse, IBS, hypertension who presented to the emergency department chief complaint of cough, shortness of breath, abdominal pain and fever. According to the patient when he woke up this morning he was feeling unwell. He states that he feels that he may have pneumonia. He states that he has been coughing up sputum and complains of shortness of breath as well. Patient denies any recent sick contacts. Patient denies a history of blood clots denies recent travel history. Patient states that he is nauseous but denies vomiting or diarrhea. [facility] Medical History IBS (irritable bowel syndrome) Hx of colonic polyp Alcohol abuse Hemorrhoids COPD (chronic obstructive pulmonary disease) Hypertension Arthritis Home Medications ?Medication ?Instructions ?Recorded ?Last Taken ?Type epinephrine 0.3 mg/0.3 mL 0.3 mg IM ONCE PRN anaphylaxis 07/07/23 Unknown History injection, auto-injector (EpiPen 2-Jesse) albuterol sulfate 90 mcg/actuation 1 puff inhalation Q6H PRN SOB #8.5 01/16/24 02/27/24 Rx aerosol inhaler grams Disability Placard #1 ea 01/30/24 Unknown Rx losartan 100 mg tablet 100 mg PO QDAY blood pressure 01/30/24 02/28/24 History fluticasone 500 mcg-salmeterol 50 1 inh inhalation BID respiratory 02/16/24 02/27/24 Rx mcg/dose blistr powdr for #3 ea inhalation (Advair Diskus) potassium chloride 20 mEq 20 meq PO BIDCM #20 tabs 03/02/24 Unknown Rx tablet,extended release(part/cryst) sodium chloride 1,000 mg soluble 1,000 mg PO BID #60 tabs 03/02/24 Unknown Rx tablet thiamine HCl (vitamin B1) 100 mg 100 mg PO DAILYCM #30 tabs 03/02/24 Unknown Rx tablet acetaminophen 500 mg tablet 1,000 mg PO Q8H 03/15/24 Unknown History folic acid 1 mg tablet 1 mg PO DAILY 03/15/24 Unknown History oxycodone 5 mg tablet 5 mg PO Q4H PRN Pain Score 4-10 03/15/24 Unknown History sennosides 8.6 mg-docusate sodium 2 tab PO BID PRN Constipation 03/15/24 Unknown History 50 mg tablet (Stimulant Laxative Plus) tiotropium bromide 2.5 2 inh inhalation DAILY copd 03/15/24 Unknown History mcg/actuation mist for inhalation (Spiriva Respimat) Allergy/AdvReac Type Severity Reaction Status Date / Time amlodipine (From Norvasc) Allergy Swelling Verified 03/15/24 09:37 lisinopril Allergy Pain in Verified 03/15/24 09:37 joints tamsulosin Allergy Other Verified 03/15/24 09:37 tolterodine (From Detrol) Allergy Other Verified 03/15/24 09:37 Family History Mother Arthritis Father Diabetes Heart disease Hypertension Surgical History Hx of vasectomy Hx of colonoscopy Hx of appendectomy Social History household members: spouse and children housing: house current occupational status: employed Smoking Status: Current every day smoker tobacco type: cigarettes second hand exposure: Yes alcohol intake: current alcohol intake frequency: 3 or more drinks per day substance use type: does not use caffeine: Yes what type of physical activity do you participate in: none frequency: does not exercise ROS ROS ED ROS Narrative Constitutional: Complains of fever and chills denies headache, lightness, dizziness Cardiovascular: Denies chest pain or palpitations Respiratory: Complains of coughing and shortness of breath Abdomen: Complains of abdominal pain nausea denies vomiting or diarrhea as noted above : Denies any urinary symptoms Neurological: Denies any numbness, weakness, tingling Musculoskeletal: Complains of back pain states that he has chronic back pain and receives injections for this Skin: Denies any rashes or lesions EXAM Physical Exam Narrative Exam Narrative: General: Patient was lying in bed did appear to be uncomfortable and short of breath Head: Atraumatic, normocephalic Eyes: PERRL bilaterally, EOMI bilaterally, no conjunctival injection noted Neck: Soft, supple, trachea midline Cardiovascular: Patient tachycardic with a regular rhythm no murmurs gallops rubs noted Respiratory: Patient has diffuse end expiratory wheezing noted on exam Abdomen: Soft, nondistended, tender to palpation in the left lower quadrant no rebound or guarding on exam Extremities: +4/5 strength noted in the bilateral upper and lower extremities, radial pulses +2/4 in the bilateral upper extremities, no pedal edema no exam Neurological: Patient follow commands knew that he was at [facility] year is 2024 Skin: Warm, dry, intact no rashes or lesions noted Const Vital Signs: 03/15/24 09:37 03/15/24 10:01 03/15/24 10:10 Temperature 99.5 F H Temperature Source Oral Pulse Rate 132 H 118 H Respiratory Rate 22 H 16 Respiratory Effort Respiratory Depth Respiratory Pattern Blood Pressure 147/80 H Blood Pressure Mean 102 Pulse Ox 93 93 Oxygen Delivery Method Room Air Room Air 03/15/24 10:39 03/15/24 11:39 03/15/24 11:45 Temperature 98.7 F 98.7 F Temperature Source Oral Oral Pulse Rate 114 H 115 H Respiratory Rate 20 H 19 H Respiratory Effort Short of Breath Respiratory Depth Shallow Respiratory Pattern Normal Blood Pressure 136/81 H 136/81 H Blood Pressure Mean 99 99 Pulse Ox 92 92 Oxygen Delivery Method Room Air Room Air Room Air 03/15/24 12:00 03/15/24 13:00 03/15/24 14:00 Temperature 98.5 F 98.4 F 98.4 F Temperature Source Oral Oral Oral Pulse Rate 110 H 108 H 107 H Respiratory Rate 17 16 21 H Respiratory Effort Respiratory Depth Respiratory Pattern Blood Pressure 132/79 H 132/80 H 134/84 H Blood Pressure Mean 96 97 100 Pulse Ox 93 93 92 Oxygen Delivery Method Room Air Room Air Room Air 03/15/24 15:00 03/15/24 16:00 03/15/24 17:00 Temperature 97.9 F Temperature Source Oral Pulse Rate 108 H 99 96 Respiratory Rate 18 18 19 H Respiratory Effort Respiratory Depth Respiratory Pattern Blood Pressure 135/75 H 129/84 H 122/83 H Blood Pressure Mean 95 99 96 Pulse Ox 92 92 93 Oxygen Delivery Method Room Air Room Air Room Air 03/15/24 18:00 Temperature 98.5 F Temperature Source Pulse Rate 104 H Respiratory Rate 19 H Respiratory Effort Respiratory Depth Respiratory Pattern Blood Pressure 138/85 H Blood Pressure Mean 102 Pulse Ox 94 Oxygen Delivery Method MDM MDM MDM Narrative Medical decision making narrative: Patient is a 63-year-old male who presented to the emerged part with chief complaint of cough, shortness of breath, abdominal pain and nausea. On the differential diagnose includes but limited to pneumonia, upper respiratory infection second viral etiology, COPD exacerbation, pneumothorax, ACS, diverticulitis, viral gastroenteritis. Once workup is obtained and reviewed he will be reevaluated. Patient be given 30 cc/kg bolus of IV fluids at 10:05 AM. Patient be given 3 DuoNebs and Solu-Medrol as well. Once the workup is obtained reviewed he will be reevaluated. Patient's CBC was reviewed and was significant for leukocytosis of 18,000, hemoglobin was 12.3, platelet count was noted to be 503. Patient sodium was noted be 126 he is chronically hyponatremic, testing was normal at 4, creatinine was 0.59. Patient's AST and ALT were 1 respectively. Patient's troponin was noted to be normal at 8 with a EKG reviewed and independently interpreted by myself showed sinus tachycardia the rate of 126 bpm. Patient's urinalysis reviewed showed no evidence of infection. Patient's x-ray of his chest reviewed by myself and by radiology as well which showed a focal left upper lobe infiltrate hyperinflation COPD. Patient CT abdomen pelvis with IV contrast reviewed and showed a patchy infiltrate right lower lobe posteriorly possibly pneumonia. Progressive thickening of the mid sigmoid colonic wall with irregular 3.2 cm soft tissue lesion inflammatory versus neoplastic. Recommending endoscopic correlation for possible malignancy. I provided hardcopy of these results to the patient. He states that he had a colonoscopy about 2 to 3 years ago now. He states that he has had polyps in the past. Patient was reambulated here in the emergency department and he became lightheaded tachycardic to the 120s and had wheezing. At this point time believe the patient will require admission for COPD exacerbation in the setting of pneumonia. Patient was given Rocephin and azithromycin at 11:29 AM. Patient was having more wheezing he will be given 2 more albuterol breathing treatments. Reperfusion assessment at 1329 was performed and the patient remained normotensive no indication for vasopressors at this point time. Patient case will be discussed with hospitalist for admission. Discussed case with hospitalist Dr. Miguel who accept patient for admission. Patient is agreeable to plan as well. All question concerns answered bedside. Lab Data Labs: Laboratory Results - last 24 hr 03/15/24 03/15/24 09:57 12:23 WBC 18.6 H RBC 4.05 L Hgb 12.3 L Hct 36.3 L MCV 89.6 MCH 30.4 MCHC 33.9 RDW Std Deviation 37.8 RDW Coeff of Pam 11.5 L Plt Count 503 H MPV 7.7 Immature Gran % (Auto) 0.500 Neut % (Auto) 81.4 H Lymph % (Auto) 3.2 L [place] % (Auto) 9.1 Eos % (Auto) 5.5 H Baso % (Auto) 0.3 Absolute Neuts (auto) 15.2 H Absolute Lymphs (auto) 0.59 L Nucleated RBC % 0 Differential Comment SCANNED PT 13.2 INR 1.0 APTT 30.8 Sodium 126 L Potassium 4.0 Chloride 90 L Carbon Dioxide 30.0 Anion Gap 6 BUN 9 Creatinine 0.59 L Estim Creat Clear Calc 121.60 Est GFR (MDRD) Af Amer 178 Est GFR (MDRD) Non-Af 147 BUN/Creatinine Ratio 15.2 Glucose 98 Lactic Acid 1.2 Calcium 9.1 Total Bilirubin 0.40 AST 20 ALT 21 Alkaline Phosphatase 81 Troponin I High Sens 8 B-Natriuretic Peptide 36.9 Total Protein 7.0 Albumin 2.9 L Globulin 4.1 Albumin/Globulin Ratio 0.7 L Urine Color Yellow Urine Clarity Clear Urine pH 7.0 Ur Specific [place] 1.010 Urine Protein 30 H Urine Glucose (UA) Normal Urine Ketones 15 H Urine Occult Blood Negative Urine Nitrite Negative Urine Bilirubin Negative Urine Urobilinogen 1 H Ur Leukocyte Esterase Negative Urine RBC 0 SEEN Urine WBC 0 SEEN Ur Squamous Epith Cells 0 SEEN Urine Bacteria 0 SEEN Urine Mucus 0 SEEN Radiography Diagnostic Testing: Clinical Impression(s) from Imaging Studies Chest X-Ray 03/15/24 10:33 IMPRESSION: Focal left upper lobe infiltrate. Hyperinflation. COPD. Electronically Signed: Star Apodaca MD at 11:15 EST , Abdomen/Pelvis CT 03/15/24 14:45 IMPRESSION: Patchy infiltrate right lower lobe posteriorly. Possible pneumonia. Progressive thickening of the mid sigmoid colonic wall with irregular 3.2 cm soft tissue lesion, inflammatory versus neoplastic. Recommend endoscopic correlation for possible malignancy. Electronically Signed: George Berman MD at 17:31 EST , Discharge Plan Dx/Rx/DC Orders Clinical Impression: COPD exacerbation, Pneumonia, Lightheadedness Disposition Disposition: Acute Care Hospital [facility], [place]
[2024-03-15] MEDS: Ipratropium/Albuterol Sulfate 3 ML AMPUL.NEB INHALATION ×4 (10:08→23:39)
[2024-03-15 10:09] LABS: Absolute Lymphocyte Count 0.59 X10^3/uL (0.83-4.51); Absolute Neutrophil Count 15.2 X10^3/uL (2.0-7.7); Basophil# 0.05 X10^3/uL; Basophil% 0.3 % (0-1); Eosinophil# 1.03 X10^3/uL; Eosinophils% 5.5 % (0-5); Hematocrit 36.3 % (40-54); Hemoglobin 12.3 g/dL (13.0-16.5); Lymphocyte # 0.59 X10^3/ul (0.83-4.51); Lymphocyte % 3.2 % (19-41); Mean Corp Hgb Conc 33.9 g/dL (32-36); Mean Corpuscular Hgb 30.4 pg (27.0-32.0); Mean Corpuscular Volume 89.6 fL (80-94); Mean Platelet Vol. 7.7 fl (6.2-12.0); Monocyte# 1.69 X10^3/uL; Monocyte% 9.1 % (0-10); NRBC Flagged by Analyzer 0 % (0-5); Neutrophil # 15.15 X10^3/uL (2.7-7.7); Neutrophil % 81.4 % (47-70); POSITIVE DIFFERENTIAL YES; POSITIVE MORPHOLOGY YES; Platelet Count 503 K/mm3 (150-450); RBC Distribution Width CV 11.5 % (11.6-14.6); RBC Distribution Width SD 37.8 fl (35.1-43.9); Red Blood Count 4.05 M/mm3 (4.6-6.2); White Blood Count 18.6 K/mm3 (4.4-11.0)
[2024-03-15 10:18] LABS: Partial Thromboplast Time 30.8 Seconds (24.1-36.2); Prothrombin Time (Protime)PT. 13.2 SECONDS (11.7-14.9)
[2024-03-15 10:28] LABS: ALB/GLOB Ratio 0.7 RATIO (0.9-2.4); AST(SGOT) 20 U/L (15-37); Alanine Aminotransfer ALT/SGPT 21 U/L (16-61); Albumin, Serum 2.9 g/dL (3.2-5.0); Alkaline Phosphatase 81 U/L (45-117); Anion Gap 6 (5-15); BUN 9 mg/dL (7-18); BUN/Creat Ratio 15.2 RATIO (10-20); Calcium,Total 9.1 mg/dL (8.5-10.1); Chloride 90 mmol/L (98-107); Creatinine, Serum 0.59 mg/dL (0.70-1.30); Differential Indicated SCAN CRITERIA MET; EST Glomerular Filtration Rate 147 mL/min (>60); Est Glom Filt Rate - Afr Amer 178 mL/min (>60); Globulin 4.1 g/dL (2.2-4.2); Glucose 98 mg/dL (74-106); Sodium Level 126 mmol/L (136-145); Troponin-I HS 8 pg/mL (3.0-78.0)
[2024-03-15 10:29] LABS: Differential Comment SCANNED
[2024-03-15 10:30] LABS: BNP,B-Type NATRIURETIC PEPTIDE 36.9 pg/mL (0-100)
--- NOTE | 2024-03-15 10:33 | RAD_ITS ---
STUDY: X-RAY CHEST REASON FOR EXAM: Male, 63 years old. sob, cough TECHNIQUE: PA and lateral views of the chest. COMPARISON: Comparison is made with prior study dated March 01, 2024. FINDINGS: EKG electrodes are seen. Left upper lobe infiltrate. Hyperinflation and COPD. There is no demonstrated pleural abnormality. Normal size heart. Normal mediastinum and chilo. There is prominence of the pulmonary hilar arteries without peripheral pulmonary vascular congestion, suggesting pulmonary hypertension. Normal visualized aortic arch and descending thoracic aorta. Normal visualized thoracic spine. Normal visualized ribs, clavicles, and shoulders. There is no demonstrated abnormality of the visualized soft tissue structures of the upper abdomen. RAD/Chest PA and Lateral IMPRESSION: Focal left upper lobe infiltrate. Hyperinflation. COPD. Electronically Signed: Star Apodaca MD at 11:15 EST ,
[2024-03-15 10:41] LABS: Lactic Acid 1.2 mmol/L (0.4-1.9)
[2024-03-15] MEDS: MethylPREDNISolone 125 MG/2 ML Vial IV (10:42)
[2024-03-15] MEDS: 0.9% Normal Saline (1000mL) 1,000 ML 999 ML IV ×2 (10:42→11:40)
[2024-03-15] MEDS: Ceftriaxone 1 GM/50 ML BAG IV (11:53)
[2024-03-15] MEDS: Azithromycin 500 MG in 0.9% Normal Saline (250mL Bag) 250 ML 255 MG IV (12:22)
[2024-03-15 12:29] LABS: Bacteria 0 SEEN /hpf (None Seen); Mucous, Urine 0 SEEN /hpf (<or=2+); Red Blood Cells-Urine 0 SEEN /hpf (0-5); Squamous Epithelial Cells - UA 0 SEEN /hpf (0-5); White Blood Cells 0 SEEN /hpf (0-5)
[2024-03-15 12:42] LABS: Color, Urine Yellow (Yellow); Glucose, Dipstick Normal (Normal); Ketone-Dipstick 15 mg/dl (Negative); Leukocyte Esterase-Dipstick Negative /ul (Negative); Nitrite-Dipstick Negative (Negative); Occult Blood-Urine Negative /ul (Negative); Protein-Dipstick 30 mg/dl (Negative); Urine Bilirubin Dipstick Negative (Negative); Urine Clarity Clear (Clear); Urine Urobilinogen 1 mg/dl (Normal)
--- NOTE | 2024-03-15 14:45 | CT_ITS ---
INDICATION: LLQ pain EXAMINATION: CT ABDOMEN AND PELVIS WITH CONTRAST - CT Abdomen And Pelvis W/ Contrast Injection TECHNIQUE: Helically acquired images were obtained of the abdomen and pelvis following IV contrast. A radiation dose optimization technique was used for this scan. IV Contrast dosage and agent: 100 cc Isovue-300 Oral contrast: None. COMPARISON: 05/26/2023 FINDINGS: LOWER CHEST: Patchy infiltrate right lower lobe posteriorly. No cardiomegaly or pericardial effusion. LIVER: No concerning focal mass. GALLBLADDER AND BILIARY TREE: No calcified gallstones. No gallbladder distension or wall edema. No intra- or extrahepatic biliary ductal dilation. PANCREAS: No focal cystic or solid mass. SPLEEN: Normal size without focal cystic or solid mass. ADRENAL GLANDS: No nodules. KIDNEYS AND URETERS: Bilateral enhancement. No hydronephrosis. PERITONEUM: No free air. Trace ascites right paracolic gutter. BOWEL: No evidence of acute appendicitis. No stomach or bowel distension. Progressive wall thickening in the mid sigmoid colon with irregular soft tissue density measuring up to 3.2 cm along the nondependent wall. Mild adjacent inflammatory stranding. LYMPH NODES: No enlarged mesenteric or retroperitoneal lymph nodes. VESSELS: Aorta is non-dilated. URINARY BLADDER: Unremarkable. REPRODUCTIVE ORGANS: No pelvic masses. ABDOMINAL WALL: Fat-containing paraumbilical hernia. BONES: No acute or aggressive abnormality. CT/Abdomen/Pelvis W IV Cont ONLY IMPRESSION: Patchy infiltrate right lower lobe posteriorly. Possible pneumonia. Progressive thickening of the mid sigmoid colonic wall with irregular 3.2 cm soft tissue lesion, inflammatory versus neoplastic. Recommend endoscopic correlation for possible malignancy. Electronically Signed: George Berman MD at 17:31 EST ,
[2024-03-15] MEDS: Morphine 4 MG/ML Syringe IV (15:34)
[2024-03-15] MEDS: Ondansetron 4 MG/2 ML Vial IV (15:34)
--- NOTE | 2024-03-15 17:58 | ED.RN ---
pt. ambulated w/ pulse ox. heart rate started at 98 and increased to 120's while ambulating. pt. reported feeling lightheaded when first walking provider notified. response, provider at bedside w/ pt.
[2024-03-15] MEDS: Albuterol 2.5 MG/3 ML VIAL.NEB. INHALATION ×2 (18:20)
--- NOTE | 2024-03-15 18:39 | CPS ---
[1820] x2 Albuterol given to pt. at this time in ER
--- NOTE | 2024-03-15 19:05 | HP.PCM.HOS_ITS ---
HPI - General General Date of Admission: 03/15/24 Date of Service: 03/15/24 Chief Complaint: Increasing SOB HPI Narrative LAUREL OTERO, is a 63y/o male hx of copd, alcohol abuse in remission, tobacco use, IBS, HTN presented to [facility] ED 03/15/24 w/ cough, SOB, abd pain and fever. He has been feeling unwell and came in because he is concerned he has pneumonia. Additionally he reports fever today and productive cough. In the ED patient with heart rate in low 100s, respiratory rate around 20 saturating 90 to 93% on room air. Blood cell count of 18 and chest x-ray with left upper lobe infiltrate. Given patient's intermittent abdominal pain he also had CT of the abdomen which showed a 3.2 cm mid sigmoid lesion cannot rule out malignancy. Patient was ambulated and was lightheaded and felt unwell. Given patient tachycardic with elevated white blood cell count patient treated with IV fluids, nebs, antibiotics and hospitalist contacted for admission. Patient evaluated bedside, he reports his shortness of breath and cough started on Friday and have progressively worsened, he took a prednisone and antibiotic yesterday that he had at home and initially felt a little bit better but has further had progression of symptoms prompting him to come to the ED. Patient also notes fever today up to 101 and has cough increased and production with yellow sputum. Also intermittently has had some Tylenol and reports his lungs hurt but are feeling little bit better now and are only hurting when he coughs. Does note some intermittent lower quadrant abdominal pain that comes and goes but is largely unchanged and is not acute, does have some problems with constipation but had broken his jaw and was only eating soft diet and he found the medications he was on to be constipating. Does still have problems with this. [facility] Medical History Alcohol abuse Arthritis COPD (chronic obstructive pulmonary disease) Hemorrhoids Hx of colonic polyp Hypertension IBS (irritable bowel syndrome) On home oxygen therapy Smoker Home Medications ?Medication ?Instructions ?Recorded ?Last Taken ?Type epinephrine 0.3 mg/0.3 mL 0.3 mg IM ONCE PRN anaphylaxis 07/07/23 Unknown History injection, auto-injector (EpiPen 2-Jesse) albuterol sulfate 90 mcg/actuation 1 puff inhalation Q6H PRN SOB #8.5 01/16/24 02/27/24 Rx aerosol inhaler grams Disability Placard #1 ea 01/30/24 Unknown Rx losartan 100 mg tablet 100 mg PO QDAY blood pressure 01/30/24 02/28/24 History fluticasone 500 mcg-salmeterol 50 1 inh inhalation BID respiratory 02/16/24 02/27/24 Rx mcg/dose blistr powdr for #3 ea inhalation (Advair Diskus) potassium chloride 20 mEq 20 meq PO BIDCM #20 tabs 03/02/24 Unknown Rx tablet,extended release(part/cryst) sodium chloride 1,000 mg soluble 1,000 mg PO BID #60 tabs 03/02/24 Unknown Rx tablet thiamine HCl (vitamin B1) 100 mg 100 mg PO DAILYCM #30 tabs 03/02/24 Unknown Rx tablet acetaminophen 500 mg tablet 1,000 mg PO Q8H 03/15/24 Unknown History folic acid 1 mg tablet 1 mg PO DAILY 03/15/24 Unknown History oxycodone 5 mg tablet 5 mg PO Q4H PRN Pain Score 4-10 03/15/24 Unknown History sennosides 8.6 mg-docusate sodium 2 tab PO BID PRN Constipation 03/15/24 Unknown History 50 mg tablet (Stimulant Laxative Plus) tiotropium bromide 2.5 2 inh inhalation DAILY copd 03/15/24 Unknown History mcg/actuation mist for inhalation (Spiriva Respimat) Allergy/AdvReac Type Severity Reaction Status Date / Time amlodipine (From Norvasc) Allergy Swelling Verified 03/15/24 09:37 lisinopril Allergy Pain in Verified 03/15/24 09:37 joints tamsulosin Allergy Other Verified 03/15/24 09:37 tolterodine (From Detrol) Allergy Other Verified 03/15/24 09:37 Family History Mother Arthritis Father Diabetes Heart disease Hypertension Surgical History Hx of appendectomy Hx of colonoscopy Hx of vasectomy Social History household members: spouse and children housing: house current occupational status: employed Smoking Status: Current every day smoker tobacco type: cigarettes second hand exposure: Yes alcohol intake: current alcohol intake frequency: 3 or more drinks per day substance use type: does not use caffeine: Yes what type of physical activity do you participate in: none frequency: does not exercise ROS ROS Narrative General: Reports fever earlier today HENT: Intermittent headaches EYES: Denies changes in vision Resp: Increased cough with sputum production, increasing shortness of breath Cardiac: Denies chest pain GI: Some intermittent abdominal pain, no nausea or vomiting, some intermittent constipation : Does not feel he is urinating as much Extremity: Denies swelling MSK: Feels somewhat weak and unwell in general Neuro: Denies any numbness/tingling Heme: Denies any bleeding or bruising Skin: Denies rashes Psychiatric: No complaints voiced Vital Signs Vital Signs Vital Signs: 03/15/24 09:37 03/15/24 10:01 03/15/24 10:10 Temperature 99.5 F H Temperature Source Oral Pulse Rate 132 H 118 H Respiratory Rate 22 H 16 Respiratory Effort Respiratory Depth Respiratory Pattern Blood Pressure 147/80 H Blood Pressure Mean 102 Pulse Ox 93 93 Oxygen Delivery Method Room Air Room Air 03/15/24 10:39 03/15/24 11:39 03/15/24 11:45 Temperature 98.7 F 98.7 F Temperature Source Oral Oral Pulse Rate 114 H 115 H Respiratory Rate 20 H 19 H Respiratory Effort Short of Breath Respiratory Depth Shallow Respiratory Pattern Normal Blood Pressure 136/81 H 136/81 H Blood Pressure Mean 99 99 Pulse Ox 92 92 Oxygen Delivery Method Room Air Room Air Room Air 03/15/24 12:00 03/15/24 13:00 03/15/24 14:00 Temperature 98.5 F 98.4 F 98.4 F Temperature Source Oral Oral Oral Pulse Rate 110 H 108 H 107 H Respiratory Rate 17 16 21 H Respiratory Effort Respiratory Depth Respiratory Pattern Blood Pressure 132/79 H 132/80 H 134/84 H Blood Pressure Mean 96 97 100 Pulse Ox 93 93 92 Oxygen Delivery Method Room Air Room Air Room Air 03/15/24 15:00 03/15/24 16:00 03/15/24 17:00 Temperature 97.9 F Temperature Source Oral Pulse Rate 108 H 99 96 Respiratory Rate 18 18 19 H Respiratory Effort Respiratory Depth Respiratory Pattern Blood Pressure 135/75 H 129/84 H 122/83 H Blood Pressure Mean 95 99 96 Pulse Ox 92 92 93 Oxygen Delivery Method Room Air Room Air Room Air 03/15/24 18:00 03/15/24 18:20 Temperature 98.5 F Temperature Source Pulse Rate 104 H 102 H Respiratory Rate 19 H 22 H Respiratory Effort Respiratory Depth Respiratory Pattern Tachypnea Blood Pressure 138/85 H Blood Pressure Mean 102 Pulse Ox 94 Oxygen Delivery Method Weight Weight: 66.224 kg Body Mass Index (BMI) 20.9 Physical Exam Narrative General: Alert, oriented HEENT: Atraumatic, normocephalic Eyes: Anicteric, normal conjunctiva, extraocular movements grossly intact Neck: Supple Respiratory: Diffuse wheezes, increased respiratory effort Cardiovascular: Sinus tachycardia with rate in 1 teens GI: Soft, no rebound, guarding, rigidity Extremities: No edema Musculoskeletal: Moving all extremities Neuro: No overt focal neurological deficits Skin: No rashes appreciated Psych: Overall cooperative Results Lab / Micro Data 03/15/24 09:57 03/15/24 09:57 Labs: Laboratory Results - last 24 hr 03/15/24 09:57: WBC 18.6 H, RBC 4.05 L, Hgb 12.3 L, Hct 36.3 L, MCV 89.6, MCH 30.4, MCHC 33.9, RDW Std Deviation 37.8, RDW Coeff of Pam 11.5 L, Plt Count 503 H, MPV 7.7, Immature Gran % (Auto) 0.500, Neut % (Auto) 81.4 H, Lymph % (Auto) 3.2 L, [place] % (Auto) 9.1, Eos % (Auto) 5.5 H, Baso % (Auto) 0.3, Absolute Neuts (auto) 15.2 H, Absolute Lymphs (auto) 0.59 L, Nucleated RBC % 0, Differential Comment SCANNED, PT 13.2, INR 1.0, APTT 30.8, Sodium 126 L, Potassium 4.0, C hloride 90 L, Carbon Dioxide 30.0, Anion Gap 6, BUN 9, Creatinine 0.59 L, Estim Creat Clear Calc 121.60, Est GFR (MDRD) Af Amer 178, Est GFR (MDRD) Non-Af 147, BUN/Creatinine Ratio 15.2, Glucose 98, Lactic Acid 1.2, Calcium 9.1, Total Bilirubin 0.40, AST 20, ALT 21, Alkaline Phosphatase 81, Troponin I High Sens 8, B-Natriuretic Peptide 36.9, Total Protein 7.0, Albumin 2.9 L, Globulin 4.1, A lbumin/Globulin Ratio 0.7 L 03/15/24 12:23: Urine Color Yellow, Urine Clarity Clear, Urine pH 7.0, Ur Specific [place] 1.010, Urine Protein 30 H, Urine Glucose (UA) Normal, Urine Ketones 15 H, Urine Occult Blood Negative, Urine Nitrite Negative, Urine Bilirubin Negative, Urine Urobilinogen 1 H, Ur Leukocyte Esterase Negative, Urine RBC 0 SEEN, Urine WBC 0 SEEN, Ur Squamous Epith Cells 0 SEEN, Urine Bacteria 0 SEEN, Urine Mucus 0 SEEN Micro: Microbiology 03/15/24 10:11 Mucosa - Nose SARS-CoV-2, Influenza & RSV (PCR) - Final Imaging Radiology Impression Chest X-Ray 03/15/24 10:33 IMPRESSION: Focal left upper lobe infiltrate. Hyperinflation. COPD. Electronically Signed: Star Apodaca MD at 11:15 EST , Abdomen/Pelvis CT 03/15/24 14:45 IMPRESSION: Patchy infiltrate right lower lobe posteriorly. Possible pneumonia. Progressive thickening of the mid sigmoid colonic wall with irregular 3.2 cm soft tissue lesion, inflammatory versus neoplastic. Recommend endoscopic correlation for possible malignancy. Electronically Signed: George Berman MD at 17:31 EST , Assessment & Plan Assessment/Plan (1) Pneumonia: PLAN: Plan # Increasing shortness of breath secondary to community-acquired pneumonia and COPD exacerbation -Imaging: Chest x-ray with left upper lobe infiltrate -Additionally patient diffusely wheezing, did find steroids helpful and has symptoms that seem to overlap with COPD exacerbation -DuoNebs and as needed albuterol -Sputum culture, COVID negative, respiratory panel ordered -Urine antigens -I/S -Rocephin and azithromycin -IV methylprednisone -Discussed adding Mucinex but patient refused and said he feels this makes him worse #Sigmoid lesion -CT abdomen pelvis with progressive thickening mid sigmoid colonic wall with irregular 3.2 cm soft tissue lesion inflammatory versus neoplastic -Will need outpatient evaluation and likely colonoscopy -Patient aware of this finding # Chronic hyponatremia -Could be secondary to chronic alcohol use, but unclear -Sodium 126, patient persistently hyponatremic even dating back to 2016 -Follow-up with primary care physician/outpatient workup -Takes salt tabs chronically, will continue #GERD -Continue PPI #Hypertension -Continue home losartan #Tobacco use -Advise cessation -Nicotine replacement ordered # History of alcohol use -Reports no alcohol use since February 27 -Continue home thiamine and folate #DVT ppx: Lovenox subcu Dana Miguel MD Charges/Coding Visit Charges Inpatient E&M: 65716 Init Hosp L2
[2024-03-15] MEDS: Morphine 2 MG/ML Syringe IV (21:00)
[2024-03-15] MEDS: 0.9% Saline Lock 10 ML Syringe IV (21:00)
[2024-03-15] MEDS: Sodium Chloride 1 GM Tablet PO (21:05)
[2024-03-15] MEDS: Senna/Docusate Sodium 1 Tablet 2 TABLET PO (21:05)
[2024-03-16] VITALS (10 sets, daily range): BP systolic 115–142; BP diastolic 78–83; PULSE 89–115; RESP 18–24; TEMP 36–36.9; O2SAT 95–99
[2024-03-16] MEDS: Calcium Carbonate 500 MG Tablet 1000 MG PO (00:46)
[2024-03-16] MEDS: oxyCODONE 5 MG Tablet PO ×2 (00:46→22:57)
[2024-03-16] MEDS: MELATONIN 3 MG TABLET PO ×2 (00:46→21:17)
[2024-03-16] MEDS: 0.9% Saline Lock 10 ML Syringe IV ×3 (05:55→14:39)
[2024-03-16] MEDS: Ipratropium/Albuterol Sulfate 3 ML AMPUL.NEB INHALATION ×4 (06:01→20:19)
[2024-03-16 07:07] LABS: Absolute Lymphocyte Count 0.51 X10^3/uL (0.83-4.51); Absolute Neutrophil Count 18.1 X10^3/uL (2.0-7.7); Basophil# 0.03 X10^3/uL; Basophil% 0.2 % (0-1); Hematocrit 30.3 % (40-54); Hemoglobin 10.3 g/dL (13.0-16.5); Lymphocyte # 0.51 X10^3/ul (0.83-4.51); Lymphocyte % 2.6 % (19-41); Mean Corpuscular Hgb 30.7 pg (27.0-32.0); Mean Corpuscular Volume 90.4 fL (80-94); Monocyte% 4.1 % (0-10); NRBC Flagged by Analyzer 0 % (0-5); Neutrophil # 18.12 X10^3/uL (2.7-7.7); Neutrophil % 92.4 % (47-70); POSITIVE DIFFERENTIAL YES; Platelet Count 460 K/mm3 (150-450); RBC Distribution Width CV 11.6 % (11.6-14.6); RBC Distribution Width SD 38.4 fl (35.1-43.9); Red Blood Count 3.35 M/mm3 (4.6-6.2); White Blood Count 19.6 K/mm3 (4.4-11.0)
[2024-03-16 07:44] LABS: Anion Gap 7 (5-15); BUN 8 mg/dL (7-18); BUN/Creat Ratio 16.4 RATIO (10-20); Calcium,Total 8.8 mg/dL (8.5-10.1); Chloride 93 mmol/L (98-107); Creatinine, Serum 0.49 mg/dL (0.70-1.30); EST Glomerular Filtration Rate 184 mL/min (>60); Est Glom Filt Rate - Afr Amer 222 mL/min (>60); Estimated Creatinine Clearance 141.05 ml/min; Glucose 150 mg/dL (74-106); Potassium 3.8 mmol/L (3.5-5.1); Sodium Level 129 mmol/L (136-145)
--- NOTE | 2024-03-16 07:52 | PN.HOSP_ITS ---
Reason for Visit Reason for Visit: Diagnoses Pneumonia, unspecified organism (03/15/24) Subjective Subjective Still feeling short of breath. Constipated since Friday. Objective Data Objective Data Vital Signs: Vital Signs Temp Pulse Resp BP Pulse Ox O2 Del Method O2 Flow Rate 36.0 C L 89 20 H 115/78 97 Nasal Cannula 2 03/16/24 05:00 03/16/24 05:59 03/16/24 05:59 03/16/24 05:00 03/16/24 05:59 03/16/24 05:59 03/16/24 05:59 Oxygen Flow Rate (L/min) 2 Oxygen Delivery Method Nasal Cannula Weight: 63.8 kg Body Mass Index (BMI) 20.2 Intake & Output: Intake and Output for Last 24 Hours 03/14/24 03/15/24 03/16/24 23:59 23:59 23:59 Intake Total 2305 / 2955 1050 / 1050 Balance 2305 / 2955 1050 / 1050 Lab / Micro Data 03/16/24 06:16 03/16/24 06:16 Labs: Laboratory Results - last 24 hr 03/15/24 09:57: WBC 18.6 H, RBC 4.05 L, Hgb 12.3 L, Hct 36.3 L, MCV 89.6, MCH 30.4, MCHC 33.9, RDW Std Deviation 37.8, RDW Coeff of Pam 11.5 L, Plt Count 503 H, MPV 7.7, Immature Gran % (Auto) 0.500, Neut % (Auto) 81.4 H, Lymph % (Auto) 3.2 L, [place] % (Auto) 9.1, Eos % (Auto) 5.5 H, Baso % (Auto) 0.3, Absolute Neuts (auto) 15.2 H, Absolute Lymphs (auto) 0.59 L, Nucleated RBC % 0, Differential Comment SCANNED, PT 13.2, INR 1.0, APTT 30.8, Sodium 126 L, Potassium 4.0, C hloride 90 L, Carbon Dioxide 30.0, Anion Gap 6, BUN 9, Creatinine 0.59 L, Estim Creat Clear Calc 121.60, Est GFR (MDRD) Af Amer 178, Est GFR (MDRD) Non-Af 147, BUN/Creatinine Ratio 15.2, Glucose 98, Lactic Acid 1.2, Calcium 9.1, Total Bilirubin 0.40, AST 20, ALT 21, Alkaline Phosphatase 81, Troponin I High Sens 8, B-Natriuretic Peptide 36.9, Total Protein 7.0, Albumin 2.9 L, Globulin 4.1, A lbumin/Globulin Ratio 0.7 L 03/15/24 12:23: Urine Color Yellow, Urine Clarity Clear, Urine pH 7.0, Ur Specific [place] 1.010, Urine Protein 30 H, Urine Glucose (UA) Normal, Urine Ketones 15 H, Urine Occult Blood Negative, Urine Nitrite Negative, Urine Bilirubin Negative, Urine Urobilinogen 1 H, Ur Leukocyte Esterase Negative, Urine RBC 0 SEEN, Urine WBC 0 SEEN, Ur Squamous Epith Cells 0 SEEN, Urine Bacteria 0 SEEN, Urine Mucus 0 SEEN 03/16/24 06:16: WBC 19.6 H, RBC 3.35 L, Hgb 10.3 L, Hct 30.3 L, MCV 90.4, MCH 30.7, MCHC 34.0, RDW Std Deviation 38.4, RDW Coeff of Pam 11.6, Plt Count 460 H, MPV 8.0, Immature Gran % (Auto) 0.700, Neut % (Auto) 92.4 H, Lymph % (Auto) 2.6 L, [place] % (Auto) 4.1, Eos % (Auto) 0.0, Baso % (Auto) 0.2, Absolute Neuts (auto) 18.1 H, Absolute Lymphs (auto) 0.51 L, Nucleated RBC % 0, Sodium 129 L, Potassium 3.8, Chloride 93 L, Carbon Dioxide 29.0, Anion Gap 7, BUN 8, C reatinine 0.49 L, Estim Creat Clear Calc 141.05, Est GFR (MDRD) Af Amer 222, Est GFR (MDRD) Non-Af 184, BUN/Creatinine Ratio 16.4, Glucose 150 H, Calcium 8.8 Micro: Microbiology 03/15/24 21:01 Mucosa - Nasopharyngeal Respiratory Panel (PCR) - Final 03/15/24 12:23 Urine, Clean Catch Legionella Antigen - Final 03/15/24 12:23 Urine, Clean Catch Streptococcus pneumoniae Antigen (M - Final 03/15/24 10:11 Mucosa - Nose SARS-CoV-2, Influenza & RSV (PCR) - Final Radiography Diagnostic Testing: Radiology Impression Chest X-Ray 03/15/24 10:33 IMPRESSION: Focal left upper lobe infiltrate. Hyperinflation. COPD. Electronically Signed: Star Apodaca MD at 11:15 EST , Abdomen/Pelvis CT 03/15/24 14:45 IMPRESSION: Patchy infiltrate right lower lobe posteriorly. Possible pneumonia. Progressive thickening of the mid sigmoid colonic wall with irregular 3.2 cm soft tissue lesion, inflammatory versus neoplastic. Recommend endoscopic correlation for possible malignancy. Electronically Signed: George Berman MD at 17:31 EST , Physical Exam Const alert and no apparent distress HEENT head/scalp atraumatic and moist oral mucous membranes Resp normal respiratory effort and no retractions Resp Narrative: diminished BS bilaterally. Cardio regular rate, regular rhythm, S1 normal heart sound and S2 normal heart sound GI normal to inspection, nondistended, normoactive bowel sounds, soft to palpation, non-tender and non-distended Extremity normal to inspection and full ROM Neuro Sensorium / Orientation: awake and alert Assessment & Plan Assessment/Plan (1) Pneumonia: PLAN: Plan AECOPD: * BDs methylpred Suspected pneumococcal pneumonia * on CTX, azithromycin * strep and legionella antigens negative. Resp panel negative. COVID, influenza, RSV negative Sigmoid lesion * 3.[address] * Concerning for malignancy. Will need GI outpt evaluation. Hyponatremia * chronic * cortisol and TSH earlier this month was WNL. Serum OSM, urine OSM, urine Na indicative of SIADH. * Continue salt tabs. Fluid restrict 1.5 liters/day. Constipation: * no BM in several day. Gave Dulolax and Miralax. If ineffective, will give Mag Citrate. Chronic conditions: * GERD-Continue PPI * Hypertension-Continue home losartan * Tobacco use-Advise cessation-Nicotine replacement ordered * History of alcohol use-Reports no alcohol use since February 27-Continue home thiamine and folate DVT ppx: Lovenox subcu Charges/Coding Visit Charges Inpatient E&M: 62440 Subs Hosp L2
[2024-03-16] MEDS: Enoxaparin 40 MG/0.4 ML Syringe SC (08:52)
[2024-03-16] MEDS: Thiamine Hydrochloride 100 MG Tablet PO (08:52)
[2024-03-16] MEDS: Losartan Potassium 100 MG Tablet PO (08:52)
[2024-03-16] MEDS: Folic Acid 1 MG Tablet PO (08:52)
[2024-03-16] MEDS: Sodium Chloride 1 GM Tablet PO ×2 (08:52→21:17)
[2024-03-16] MEDS: Senna/Docusate Sodium 1 Tablet 2 TABLET PO ×2 (08:54→21:17)
[2024-03-16] MEDS: 0.9% Normal Saline (100mL Bag) 100 ML 15 ML IV (09:02)
[2024-03-16] MEDS: Pantoprazole Sodium 40 MG Tablet PO (09:02)
[2024-03-16] MEDS: Ceftriaxone 2 GM in 0.9% Normal Saline (50mL MB+) 50 ML IV (09:13)
[2024-03-16] MEDS: Azithromycin 500 MG in Dextrose 5%-Water (250mL Bag) 250 ML 250 MG IV (10:28)
[2024-03-16] MEDS: Bisacodyl 5 MG Tablet 10 MG PO (10:54)
--- NOTE | 2024-03-16 11:40 | CASEMGMT ---
WHIT ROBINS chart review: Patient was admitted 02/27-03/02/24 for syncopal episode, jaw fracture, and COPD exacerbation. See WHIT ROBINS assessment from 03/01/24. Patient was discharge home with family support, walker, outpatient therapy, and follow-up plans in place. Patient returned to [facility] ED on 03/15/24 for increased SOB and nausea and was admitted for pneumonia and COPD exacerbation. WHIT ROBINS in to discuss readmission and discharge plans. Patient states he attended all his follow-up appts. Patient was taking medications as prescribed. Patient has home oxygen through [employer] at 2lpm at , will monitor for increase in home oxygen at discharge. Patient wishes to discharge home, denies need for HHC. Patient had no further questions or concerns. CM will continue to follow this patient and plan for a safe discharge.
[2024-03-16] MEDS: Albuterol 2.5 MG/3 ML VIAL.NEB. INHALATION (22:46)
[2024-03-17] VITALS (12 sets, daily range): BP systolic 140–160; BP diastolic 86–91; PULSE 86–102; RESP 18–24; TEMP 36.4–36.9; O2SAT 94–98
[2024-03-17] MEDS: Ipratropium/Albuterol Sulfate 3 ML AMPUL.NEB INHALATION ×6 (02:55→23:30)
[2024-03-17] MEDS: 0.9% Saline Lock 10 ML Syringe IV ×2 (06:10→09:10)
[2024-03-17 06:47] LABS: Absolute Lymphocyte Count 0.46 X10^3/uL (0.83-4.51); Absolute Neutrophil Count 14.2 X10^3/uL (2.0-7.7); Basophil# 0.01 X10^3/uL; Basophil% 0.1 % (0-1); Hematocrit 30.6 % (40-54); Hemoglobin 10.1 g/dL (13.0-16.5); Lymphocyte # 0.46 X10^3/ul (0.83-4.51); Lymphocyte % 2.9 % (19-41); Mean Corpuscular Volume 90.8 fL (80-94); Monocyte# 0.82 X10^3/uL; Monocyte% 5.2 % (0-10); NRBC Flagged by Analyzer 0 % (0-5); Neutrophil # 14.23 X10^3/uL (2.7-7.7); Neutrophil % 91.2 % (47-70); POSITIVE DIFFERENTIAL YES; Platelet Count 459 K/mm3 (150-450); RBC Distribution Width CV 11.7 % (11.6-14.6); RBC Distribution Width SD 38.8 fl (35.1-43.9); Red Blood Count 3.37 M/mm3 (4.6-6.2); White Blood Count 15.6 K/mm3 (4.4-11.0)
[2024-03-17 07:20] LABS: Anion Gap 4 (5-15); BUN 10 mg/dL (7-18); BUN/Creat Ratio 26.8 RATIO (10-20); Calcium,Total 8.5 mg/dL (8.5-10.1); Chloride 95 mmol/L (98-107); Creatinine, Serum 0.37 mg/dL (0.70-1.30); EST Glomerular Filtration Rate 251 mL/min (>60); Est Glom Filt Rate - Afr Amer 303 mL/min (>60); Glucose 139 mg/dL (74-106); Potassium 3.8 mmol/L (3.5-5.1); Sodium Level 131 mmol/L (136-145)
--- NOTE | 2024-03-17 08:45 | PCM.PN.HOSP ---
Reason for Visit Reason for Visit: Diagnoses Pneumonia, unspecified organism (03/15/24) Subjective Subjective Breathing better. Abdomen feeling better after BM. Objective Data Objective Data Vital Signs: Vital Signs Temp Pulse Resp BP Pulse Ox O2 Del Method O2 Flow Rate 36.4 C L 100 20 H 155/88 H 98 Nasal Cannula 3 03/17/24 03:00 03/17/24 06:58 03/17/24 06:58 03/17/24 03:00 03/17/24 06:58 03/17/24 06:58 03/17/24 06:58 Oxygen Flow Rate (L/min) 3 Oxygen Delivery Method Nasal Cannula Weight: 63.8 kg Body Mass Index (BMI) 20.2 Intake & Output: Intake and Output for Last 24 Hours 03/15/24 03/16/24 03/17/24 23:59 23:59 23:59 Intake Total 2305 / 2955 2049.5 / 2049.5 200 / 200 Output Total 400 / 400 200 / 200 Balance 2305 / 2955 1649.5 / 1649.5 0 / 0 Medical Nutrition Assessment Dietitian: Malnutrition Criteria Met Start: 03/16/24 13:45 Freq: Status: Active Protocol: Document 03/16/24 13:45 SB (Rec: 03/16/24 13:45 SB [id number]) Nutrition Malnutrition Evidence of Malnutrition Exists Yes Malnutrition (severe): Chronic Evidenced By Suboptimal Energy Intake ( Severe),Weight Loss (Severe) Clinical Problem Acute Disease or Injury Related Malnutrition Etiology severe related to inadequate oral intake (mandibular condyle fracture) and increase energy expenditure (COPD) Signs/Symptoms as evidenced by PO meeting <50 % of estimated nutrition needs x 2 weeks and 7.4% unintentional weight loss x 1 month. Status Active Problem Recommendation Dietitian Recommendations/Changes Continue regular diet with 1750ml fluid restriction and ensure compact TID with medpass. Will d/c ensure plus high protein TID with meals. Will order magic cup with dinner. Will monitor weight tends. Reviewed and approved by Celeste Rivas RDN, ROHIT. Lab / Micro Data 03/17/24 06:05 03/17/24 06:05 Labs: Laboratory Results - last 24 hr 03/17/24 06:05: WBC 15.6 H, RBC 3.37 L, Hgb 10.1 L, Hct 30.6 L, MCV 90.8, MCH 30.0, MCHC 33.0, RDW Std Deviation 38.8, RDW Coeff of Pam 11.7, Plt Count 459 H, MPV 8.0, Immature Gran % (Auto) 0.600, Neut % (Auto) 91.2 H, Lymph % (Auto) 2.9 L, [place] % (Auto) 5.2, Eos % (Auto) 0.0, Baso % (Auto) 0.1, Absolute Neuts (auto) 14.2 H, Absolute Lymphs (auto) 0.46 L, Nucleated RBC % 0, Sodium 131 L, Potassium 3.8, Chloride 95 L, Carbon Dioxide 32.0, Anion Gap 4 L, BUN 10, Creatinine 0.37 L, Estim Creat Clear Calc 186.80, Est GFR (MDRD) Af Amer 303, Est GFR (MDRD) Non-Af 251, BUN/Creatinine Ratio 26.8 H, Glucose 139 H, Calcium 8.5 Micro: Microbiology 03/15/24 12:23 Urine, Clean Catch Urine Culture - Final Culture exhibits no growth. 03/15/24 21:01 Mucosa - Nasopharyngeal Respiratory Panel (PCR) - Final 03/15/24 12:23 Urine, Clean Catch Legionella Antigen - Final 03/15/24 12:23 Urine, Clean Catch Streptococcus pneumoniae Antigen (M - Final 03/15/24 10:11 Mucosa - Nose SARS-CoV-2, Influenza & RSV (PCR) - Final Physical Exam Const alert and no apparent distress HEENT head/scalp atraumatic and moist oral mucous membranes Resp normal respiratory effort and no retractions Resp Narrative: bilateral wheezing. Cardio regular rate, regular rhythm, S1 normal heart sound and S2 normal heart sound GI normal to inspection, nondistended, normoactive bowel sounds, soft to palpation, non-tender and non-distended Neuro Sensorium / Orientation: awake and alert Psych affect normal Assessment & Plan Assessment/Plan (1) Pneumonia: PLAN: Plan AECOPD: BDs methylpred Gram negative pneumonia on CTX, azithromycin. Change to pip/tazo. SCx concerning for possible pseudomonas. strep and legionella antigens negative. Resp panel negative. COVID, influenza, RSV negative Sigmoid lesion 3.[address] Concerning for malignancy. Will need GI outpt evaluation. Check CEA. Hyponatremia chronic cortisol and TSH earlier this month was WNL. Serum OSM, urine OSM, urine Na indicative of SIADH. Continue salt tabs. Fluid restrict 1.5 liters/day. Constipation: no BM in several day. Gave Dulolax and Miralax. If ineffective, will give Mag Citrate. Chronic conditions: GERD-Continue PPI Hypertension-Continue home losartan Tobacco use-Advise cessation-Nicotine replacement ordered History of alcohol use-Reports no alcohol use since February 27-Continue home thiamine and folate DVT ppx: Lovenox subcu Charges/Coding Visit Charges Inpatient E&M: 86544 Subs Hosp L2
[2024-03-17] MEDS: Thiamine Hydrochloride 100 MG Tablet PO (09:04)
[2024-03-17] MEDS: Losartan Potassium 100 MG Tablet PO (09:04)
[2024-03-17] MEDS: Folic Acid 1 MG Tablet PO (09:04)
[2024-03-17] MEDS: Enoxaparin 40 MG/0.4 ML Syringe SC (09:06)
[2024-03-17] MEDS: Senna/Docusate Sodium 1 Tablet 2 TABLET PO ×2 (09:06→22:16)
[2024-03-17] MEDS: Pantoprazole Sodium 40 MG Tablet PO (09:06)
[2024-03-17] MEDS: Sodium Chloride 1 GM Tablet PO ×2 (09:06→22:16)
[2024-03-17] MEDS: Ceftriaxone 2 GM in 0.9% Normal Saline (50mL MB+) 50 ML IV (09:07)
[2024-03-17] MEDS: Acetaminophen 325 MG Tablet 650 MG PO (09:10)
[2024-03-17] MEDS: oxyCODONE 5 MG Tablet PO ×3 (09:10→23:37)
[2024-03-17] MEDS: Azithromycin 500 MG in 0.9% Normal Saline (250mL Bag) 250 ML 250 MG IV (12:34)
[2024-03-17] MEDS: Albuterol 2.5 MG/3 ML VIAL.NEB. INHALATION (17:01)
[2024-03-17] MEDS: Piperacil/Tazobactam 3.375 GM in 0.9% Normal Saline (50mL MB+) 50 ML IV (22:16)
[2024-03-17] MEDS: MELATONIN 3 MG TABLET PO (23:37)
[2024-03-18] VITALS (12 sets, daily range): BP systolic 142–156; BP diastolic 74–99; PULSE 82–104; RESP 16–22; TEMP 36.6–36.8; O2SAT 93–97
[2024-03-18] MEDS: Ipratropium/Albuterol Sulfate 3 ML AMPUL.NEB INHALATION ×6 (03:05→23:12)
[2024-03-18] MEDS: Piperacil/Tazobactam 3.375 GM in 0.9% Normal Saline (50mL MB+) 50 ML IV ×3 (06:09→21:08)
[2024-03-18] MEDS: 0.9% Saline Lock 10 ML Syringe IV ×3 (06:12→23:08)
[2024-03-18] MEDS: oxyCODONE 5 MG Tablet PO ×3 (06:22→23:11)
[2024-03-18 08:09] LABS: Carcinoembryonic Antigen 4.6 ng/mL (0.0-4.7)
--- NOTE | 2024-03-18 08:53 | PCM.PN.HOSP ---
Reason for Visit Reason for Visit: Diagnoses Pneumonia, unspecified organism (03/15/24) Subjective Subjective Had some bloating and abdominal discomfort with that, since resolved. . Still SOB. Not significantly improved from a respiratory standpoint. Objective Data Objective Data Vital Signs: Vital Signs Temp Pulse Resp BP Pulse Ox O2 Del Method O2 Flow Rate 36.8 C 82 20 H 156/95 H 94 Nasal Cannula 2 03/18/24 03:00 03/18/24 03:05 03/18/24 03:05 03/18/24 03:00 03/18/24 03:00 03/18/24 03:56 03/18/24 03:56 Oxygen Flow Rate (L/min) 2 Oxygen Delivery Method Nasal Cannula Weight: 63.8 kg Body Mass Index (BMI) 20.2 Intake & Output: Intake and Output for Last 24 Hours 03/16/24 03/17/24 03/18/24 23:59 23:59 23:59 Intake Total 2049.5 / 2049.5 1005 / 1185 430 / 430 Output Total 400 / 400 850 / 850 Balance 1649.5 / 1649.5 155 / 335 430 / 430 Medical Nutrition Assessment Dietitian: Malnutrition Criteria Met Start: 03/16/24 13:45 Freq: Status: Active Protocol: Document 03/16/24 13:45 SB (Rec: 03/16/24 13:45 SB [id number]) Nutrition Malnutrition Evidence of Malnutrition Exists Yes Malnutrition (severe): Chronic Evidenced By Suboptimal Energy Intake ( Severe),Weight Loss (Severe) Clinical Problem Acute Disease or Injury Related Malnutrition Etiology severe related to inadequate oral intake (mandibular condyle fracture) and increase energy expenditure (COPD) Signs/Symptoms as evidenced by PO meeting <50 % of estimated nutrition needs x 2 weeks and 7.4% unintentional weight loss x 1 month. Status Active Problem Recommendation Dietitian Recommendations/Changes Continue regular diet with 1750ml fluid restriction and ensure compact TID with medpass. Will d/c ensure plus high protein TID with meals. Will order magic cup with dinner. Will monitor weight tends. Reviewed and approved by Celeste Rivas RDN, LD. Lab / Micro Data 03/17/24 06:05 03/17/24 06:05 Labs: Laboratory Results - last 24 hr 03/17/24 06:16: Carcinoembryonic Ag 4.6 Micro: Microbiology 03/15/24 14:35 Sputum, Expectorated/Coughed Gram Stain - Final 03/15/24 14:35 Sputum, Expectorated/Coughed Respiratory Culture - Preliminary GNR Poss Pseudomonas sp 03/15/24 11:36 Blood Culture (Wb) - Anticubital Right Blood Culture - Preliminary No growth in 48 hours. 03/15/24 10:01 Blood Culture (Wb) - Anticubital Right Blood Culture - Preliminary No growth in 48 hours. 03/15/24 12:23 Urine, Clean Catch Urine Culture - Final Culture exhibits no growth. 03/15/24 21:01 Mucosa - Nasopharyngeal Respiratory Panel (PCR) - Final 03/15/24 12:23 Urine, Clean Catch Legionella Antigen - Final 03/15/24 12:23 Urine, Clean Catch Streptococcus pneumoniae Antigen (M - Final 03/15/24 10:11 Mucosa - Nose SARS-CoV-2, Influenza & RSV (PCR) - Final Physical Exam Const Constitutional Narrative: up in bed leaning forward. tachypnea. Afebrile. Resp normal respiratory effort, no retractions and no use of accessory muscles Resp Narrative: diminishes breath sounds bilaterally. with faint wheezes bilaterally. Cardio regular rate, regular rhythm and S1 normal heart sound Neuro Sensorium / Orientation: awake and alert Assessment & Plan Assessment/Plan (1) Pneumonia: PLAN: Plan AECOPD: BDs methylpred add PEP Pseudomonas pneumonia on CTX, azithromycin. Change to pip/tazo. SCx Pseudomonas sensitive to Cefepime, cipro, LVQ, dov, pip/tazo. Start LVQ starting 03/19. Treat for 7 days. strep and legionella antigens negative. Resp panel negative. COVID, influenza, RSV negative Sigmoid lesion 3.[address] Concerning for malignancy. Will need GI outpt evaluation. Check CEA. Hyponatremia chronic cortisol and TSH earlier this month was WNL. Serum OSM, urine OSM, urine Na indicative of SIADH. Continue salt tabs. Fluid restrict 1.5 liters/day. Constipation: no BM in several day. Gave Dulolax and Miralax and he has had BMs. Had some bloating and abdominal pain, will start simethicone. Chronic conditions: GERD-Continue PPI Hypertension-Continue home losartan Tobacco use-Advise cessation-Nicotine replacement ordered History of alcohol use-Reports no alcohol use since February 27-Continue home thiamine and folate DVT ppx: Lovenox subcu Charges/Coding Visit Charges Inpatient E&M: 09517 Subs Hosp L2
[2024-03-18] MEDS: Enoxaparin 40 MG/0.4 ML Syringe SC (09:34)
[2024-03-18] MEDS: Pantoprazole Sodium 40 MG Tablet PO (09:35)
[2024-03-18] MEDS: Senna/Docusate Sodium 1 Tablet 2 TABLET PO ×2 (09:35→21:07)
[2024-03-18] MEDS: Folic Acid 1 MG Tablet PO (09:35)
[2024-03-18] MEDS: Sodium Chloride 1 GM Tablet PO ×2 (09:36→21:07)
[2024-03-18] MEDS: Losartan Potassium 100 MG Tablet PO (09:36)
[2024-03-18] MEDS: Thiamine Hydrochloride 100 MG Tablet PO (09:36)
[2024-03-18] MEDS: SimETHICONE 80 MG Chewable Tablet PO ×3 (13:14→21:08)
[2024-03-18] MEDS: Acetaminophen 325 MG Tablet 650 MG PO ×2 (17:05→23:11)
[2024-03-18] MEDS: MELATONIN 3 MG TABLET PO (23:11)
[2024-03-19] VITALS (11 sets, daily range): BP systolic 146–154; BP diastolic 91–101; PULSE 83–105; RESP 16–22; TEMP 36.2–37.3; O2SAT 86–99
[2024-03-19] MEDS: Ipratropium/Albuterol Sulfate 3 ML AMPUL.NEB INHALATION ×3 (03:54→22:57)
[2024-03-19] MEDS: Morphine 2 MG/ML Syringe IV (04:53)
[2024-03-19] MEDS: Ondansetron 4 MG/2 ML Vial IV (04:53)
[2024-03-19] MEDS: 0.9% Saline Lock 10 ML Syringe IV ×3 (04:56→20:59)
[2024-03-19 05:48] LABS: Absolute Lymphocyte Count 0.61 X10^3/uL (0.83-4.51); Absolute Neutrophil Count 12.8 X10^3/uL (2.0-7.7); Basophil# 0.03 X10^3/uL; Basophil% 0.2 % (0-1); Hematocrit 33.7 % (40-54); Hemoglobin 11.3 g/dL (13.0-16.5); Lymphocyte # 0.61 X10^3/ul (0.83-4.51); Lymphocyte % 4.3 % (19-41); Mean Corp Hgb Conc 33.5 g/dL (32-36); Mean Corpuscular Hgb 30.5 pg (27.0-32.0); Mean Corpuscular Volume 90.8 fL (80-94); Monocyte% 4.2 % (0-10); NRBC Flagged by Analyzer 0 % (0-5); Neutrophil # 12.78 X10^3/uL (2.7-7.7); Neutrophil % 90.6 % (47-70); Platelet Count 507 K/mm3 (150-450); RBC Distribution Width CV 11.9 % (11.6-14.6); RBC Distribution Width SD 39.8 fl (35.1-43.9); Red Blood Count 3.71 M/mm3 (4.6-6.2); White Blood Count 14.1 K/mm3 (4.4-11.0)
[2024-03-19 06:34] LABS: Anion Gap 5 (5-15); BUN 11 mg/dL (7-18); BUN/Creat Ratio 20.1 RATIO (10-20); Chloride 93 mmol/L (98-107); Creatinine, Serum 0.55 mg/dL (0.70-1.30); EST Glomerular Filtration Rate 161 mL/min (>60); Est Glom Filt Rate - Afr Amer 195 mL/min (>60); Estimated Creatinine Clearance 125.67 ml/min; Glucose 141 mg/dL (74-106); Potassium 4.1 mmol/L (3.5-5.1); Sodium Level 131 mmol/L (136-145)
--- NOTE | 2024-03-19 07:28 | PN.HOSP_ITS ---
Reason for Visit Reason for Visit: Diagnoses Pneumonia, unspecified organism (03/15/24) Subjective Subjective Feeling better, but still SOB. SOB worse when he lies flat. Coughing up some phlegm. Objective Data Objective Data Vital Signs: Vital Signs Temp Pulse Resp BP Pulse Ox O2 Del Method O2 Flow Rate 36.7 C 83 22 H 154/91 H 96 Nasal Cannula 5 03/19/24 04:38 03/19/24 04:38 03/19/24 04:38 03/19/24 04:38 03/19/24 04:38 03/19/24 04:38 03/19/24 04:38 Oxygen Flow Rate (L/min) 5 Oxygen Delivery Method Nasal Cannula Weight: 63.8 kg Body Mass Index (BMI) 20.2 Intake & Output: Intake and Output for Last 24 Hours 03/17/24 03/18/24 03/19/24 23:59 23:59 23:59 Intake Total 1005 / 1185 1880 / 2030 200 / 200 Output Total 850 / 850 100 / 100 Balance 155 / 335 1880 / 1930 100 / 100 Medical Nutrition Assessment Dietitian: Malnutrition Criteria Met Start: 03/16/24 13:45 Freq: Status: Active Protocol: Document 03/16/24 13:45 SB (Rec: 03/16/24 13:45 SB [id number]) Nutrition Malnutrition Evidence of Malnutrition Exists Yes Malnutrition (severe): Chronic Evidenced By Suboptimal Energy Intake ( Severe),Weight Loss (Severe) Clinical Problem Acute Disease or Injury Related Malnutrition Etiology severe related to inadequate oral intake (mandibular condyle fracture) and increase energy expenditure (COPD) Signs/Symptoms as evidenced by PO meeting <50 % of estimated nutrition needs x 2 weeks and 7.4% unintentional weight loss x 1 month. Status Active Problem Recommendation Dietitian Recommendations/Changes Continue regular diet with 1750ml fluid restriction and ensure compact TID with medpass. Will d/c ensure plus high protein TID with meals. Will order magic cup with dinner. Will monitor weight tends. Reviewed and approved by Ceelste Rivas RDN, ROHIT. Lab / Micro Data 03/19/24 05:20 03/19/24 05:20 Labs: Laboratory Results - last 24 hr 03/17/24 06:16: Carcinoembryonic Ag 4.6 03/19/24 05:20: WBC 14.1 H, RBC 3.71 L, Hgb 11.3 L, Hct 33.7 L, MCV 90.8, MCH 30.5, MCHC 33.5, RDW Std Deviation 39.8, RDW Coeff of Pam 11.9, Plt Count 507 H, MPV 8.0, Immature Gran % (Auto) 0.700, Neut % (Auto) 90.6 H, Lymph % (Auto) 4.[address] L, [place] % (Auto) 4.2, Eos % (Auto) 0.0, Baso % (Auto) 0.2, Absolute Neuts (auto) 12.8 H, Absolute Lymphs (auto) 0.61 L, Nucleated RBC % 0, Sodium 131 L, Potassium 4.1, Chloride 93 L, Carbon Dioxide 34.0 H, Anion Gap 5, BUN 11, C reatinine 0.55 L, Estim Creat Clear Calc 125.67, Est GFR (MDRD) Af Amer 195, Est GFR (MDRD) Non-Af 161, BUN/Creatinine Ratio 20.1 H, Glucose 141 H, Calcium 9.0 Micro: Microbiology 03/15/24 14:35 Sputum, Expectorated/Coughed Gram Stain - Final 03/15/24 14:35 Sputum, Expectorated/Coughed Respiratory Culture - Preliminary Pseudomonas aeruginosa 03/15/24 11:36 Blood Culture (Wb) - Anticubital Right Blood Culture - Preliminary No growth in 48 hours. 03/15/24 10:01 Blood Culture (Wb) - Anticubital Right Blood Culture - Preliminary No growth in 48 hours. 03/15/24 12:23 Urine, Clean Catch Urine Culture - Final Culture exhibits no growth. 03/15/24 21:01 Mucosa - Nasopharyngeal Respiratory Panel (PCR) - Final 03/15/24 12:23 Urine, Clean Catch Legionella Antigen - Final 03/15/24 12:23 Urine, Clean Catch Streptococcus pneumoniae Antigen (M - Final 03/15/24 10:11 Mucosa - Nose SARS-CoV-2, Influenza & RSV (PCR) - Final Physical Exam Const alert Constitutional Narrative: up in bed leaning forward. HEENT head/scalp atraumatic Resp normal respiratory effort, no retractions and no use of accessory muscles Resp Narrative: diminished bilaterally. Assessment & Plan Assessment/Plan (1) Pneumonia: PLAN: Plan AECOPD: * BDs methylpred * continue PEP Pseudomonas pneumonia * on CTX, azithromycin. Change to pip/tazo. * SCx Pseudomonas sensitive to Cefepime, cipro, LVQ, dov, pip/tazo. Start LVQ starting 03/19. Treat for 7 days. * strep and legionella antigens negative. Resp panel negative. COVID, influenza, RSV negative * add vest therapy and Mucinex. Sigmoid lesion * 3.[address] * Concerning for malignancy. Will need GI outpt evaluation. * Check CEA. Hyponatremia * chronic * cortisol and TSH earlier this month was WNL. Serum OSM, urine OSM, urine Na indicative of SIADH. * Continue salt tabs. Fluid restrict 1.5 liters/day. Constipation: * no BM in several day. Gave Dulolax and Miralax and he has had BMs. * Had some bloating and abdominal pain, will start simethicone. Chronic conditions: * GERD-Continue PPI * Hypertension-Continue home losartan * Tobacco use-Advise cessation-Nicotine replacement ordered * History of alcohol use-Reports no alcohol use since February 27-Continue home thiamine and folate DVT ppx: Lovenox subcu Charges/Coding Visit Charges Inpatient E&M: 22972 Subs Hosp L2
--- NOTE | 2024-03-19 10:00 | RAD_ITS ---
STUDY: X-RAY CHEST REASON FOR EXAM: Male, 63 years old. Dyspnea TECHNIQUE: Single AP portable view of the chest. COMPARISON: Comparison is made with prior study dated March 15, 2024. FINDINGS: EKG electrodes are seen. There is hyperinflation of the lungs consistent with chronic obstructive lung disease (COPD). Improved aeration of the superior aspect of the left upper lobe laterally. There is no demonstrated pleural abnormality. Normal size heart. Normal mediastinum and chilo. Normal visualized pulmonary arteries. Normal visualized aortic arch and descending thoracic aorta. Normal visualized thoracic spine. Normal visualized ribs, clavicles, and shoulders. There is no demonstrated abnormality of the visualized soft tissue structures of the upper abdomen. RAD/Chest 1 View (Portable) IMPRESSION: Hyperinflation and COPD. Improved aeration of the previously seen density in the upper lateral aspect of the left upper lobe. Electronically Signed: Star Apodaca MD at 10:44 EST ,
[2024-03-19] MEDS: Senna/Docusate Sodium 1 Tablet 2 TABLET PO ×2 (10:13→20:58)
[2024-03-19] MEDS: Folic Acid 1 MG Tablet PO (10:13)
[2024-03-19] MEDS: Sodium Chloride 1 GM Tablet PO ×2 (10:13→20:58)
[2024-03-19] MEDS: Thiamine Hydrochloride 100 MG Tablet PO (10:14)
[2024-03-19] MEDS: Enoxaparin 40 MG/0.4 ML Syringe SC (10:14)
[2024-03-19] MEDS: Pantoprazole Sodium 40 MG Tablet PO (10:14)
[2024-03-19] MEDS: SimETHICONE 80 MG Chewable Tablet PO ×4 (10:14→20:58)
[2024-03-19] MEDS: Losartan Potassium 100 MG Tablet PO (10:15)
[2024-03-19] MEDS: levoFLOXacin IV 750 MG/150 ML BAG 100 MG IV (10:17)
[2024-03-19] MEDS: guaiFENesin 1,200 MG Tablet 1200 MG PO ×2 (10:36→20:58)
[2024-03-19] MEDS: Albuterol 2.5 MG/3 ML VIAL.NEB. INHALATION ×3 (11:34→19:32)
[2024-03-19] MEDS: oxyCODONE 5 MG Tablet PO ×2 (12:24→22:45)
--- NOTE | 2024-03-19 12:42 | CPS ---
RT talked to patient. Pt become worked up saying he just wants to go home. That he is going stir crazy in here. Pt states he just wanted to cry. RT talked with patient about seeing if SW could come see him and maybe help him. Pt was okay with that. RT talked to RN about having someone come talk with the pt.
--- NOTE | 2024-03-19 15:59 | CASEMGMT ---
Patient qualifies for increase in home oxygen, script received. Referral sent to [facility] and arranged for portable tank to be delivered to patient room today for anticipated discharge over the weekend. RN CM in to updated patient regarding home oxygen update. Patient voiced understanding. Patient denies further needs at discharge. Patient still has script for outpatient therapy from previous admission. Patient had no further questions or concerns.
--- NOTE | 2024-03-19 21:07 | CPS ---
Patient refused vest therapy at this time.
[2024-03-19] MEDS: MELATONIN 3 MG TABLET PO (22:45)
[2024-03-20] VITALS (9 sets, daily range): BP systolic 109–157; BP diastolic 69–93; PULSE 79–129; RESP 16–26; TEMP 36.2–36.6; O2SAT 90–98
[2024-03-20] MEDS: Ipratropium/Albuterol Sulfate 3 ML AMPUL.NEB INHALATION ×4 (03:53→18:46)
[2024-03-20] MEDS: 0.9% Saline Lock 10 ML Syringe IV ×3 (05:16→13:59)
[2024-03-20] MEDS: oxyCODONE 5 MG Tablet PO ×2 (09:00→16:29)
[2024-03-20] MEDS: Acetaminophen 325 MG Tablet 650 MG PO ×2 (09:00→16:29)
[2024-03-20] MEDS: SimETHICONE 80 MG Chewable Tablet PO ×2 (09:02→13:58)
--- NOTE | 2024-03-20 09:26 | PN.HOSP_ITS ---
Reason for Visit Reason for Visit: Diagnoses Pneumonia, unspecified organism (03/15/24) Subjective Subjective Breathing better. Feels jittery with Duoneb. Objective Data Objective Data Vital Signs: Vital Signs Temp Pulse Resp BP Pulse Ox O2 Del Method O2 Flow Rate 36.2 C L 79 20 H 109/69 92 Nasal Cannula 2.5 03/20/24 03:00 03/20/24 07:10 03/20/24 07:10 03/20/24 03:00 03/20/24 07:10 03/20/24 07:10 03/20/24 07:10 Oxygen Flow Rate (L/min) 2.5 Oxygen Delivery Method Nasal Cannula Weight: 63.8 kg Body Mass Index (BMI) 20.2 Intake & Output: Intake and Output for Last 24 Hours 03/18/24 03/19/24 03/20/24 23:59 23:59 23:59 Intake Total 1879 / 2029 1090 / 1090 240 / 240 Output Total 100 / 100 Balance 1880 / 1930 990 / 990 240 / 240 Medical Nutrition Assessment Dietitian: Malnutrition Criteria Met Start: 03/16/24 13:45 Freq: Status: Active Protocol: Document 03/19/24 15:06 SB (Rec: 03/19/24 15:06 SB [id number]) Nutrition Malnutrition Evidence of Malnutrition Exists Yes Malnutrition (severe): Chronic Evidenced By Suboptimal Energy Intake ( Severe),Weight Loss (Severe) Clinical Problem Acute Disease or Injury Related Malnutrition Etiology severe related to inadequate oral intake (mandibular condyle fracture) and increase energy expenditure (COPD) Signs/Symptoms as evidenced by PO meeting <50 % of estimated nutrition needs x 2 weeks and 7.4% unintentional weight loss x 1 month. Status Active Problem Recommendation Dietitian Recommendations/Changes Continue regular diet with 1500ml fluid restriction and ensure compact TID with medpass and magic cup with dinner. Will monitor weight tends. Reviewed and approved by Melisa Link, MS, RDN, LD. Lab / Micro Data 03/19/24 05:20 03/19/24 05:20 Micro: Microbiology 03/15/24 14:35 Sputum, Expectorated/Coughed Gram Stain - Final 03/15/24 14:35 Sputum, Expectorated/Coughed Respiratory Culture - Final Pseudomonas aeruginosa 03/15/24 11:36 Blood Culture (Wb) - Anticubital Right Blood Culture - Preliminary No growth in 48 hours. 03/15/24 10:01 Blood Culture (Wb) - Anticubital Right Blood Culture - Preliminary No growth in 48 hours. 03/15/24 12:23 Urine, Clean Catch Urine Culture - Final Culture exhibits no growth. 03/15/24 21:01 Mucosa - Nasopharyngeal Respiratory Panel (PCR) - Final 03/15/24 12:23 Urine, Clean Catch Legionella Antigen - Final 03/15/24 12:23 Urine, Clean Catch Streptococcus pneumoniae Antigen (M - Final 03/15/24 10:11 Mucosa - Nose SARS-CoV-2, Influenza & RSV (PCR) - Final Radiography Diagnostic Testing: Radiology Impression Chest X-Ray 03/19/24 10:00 IMPRESSION: Hyperinflation and COPD. Improved aeration of the previously seen density in the upper lateral aspect of the left upper lobe. Electronically Signed: Star Apodaca MD at 10:44 EST , Physical Exam Const alert and no apparent distress HEENT head/scalp atraumatic and moist oral mucous membranes Resp normal respiratory effort, no retractions, no use of accessory muscles and clear to auscultation bilaterally Cardio regular rate, regular rhythm, S1 normal heart sound and S2 normal heart sound GI normal to inspection, nondistended, normoactive bowel sounds and soft to palpation Neuro Sensorium / Orientation: awake and alert Assessment & Plan Assessment/Plan (1) Pneumonia: PLAN: Plan AECOPD: * BDs methylpred * continue PEP Pseudomonas pneumonia * on CTX, azithromycin. Change to pip/tazo. * SCx Pseudomonas sensitive to Cefepime, cipro, LVQ, dov, pip/tazo. Start LVQ starting 03/19. Treat for 7 days. * strep and legionella antigens negative. Resp panel negative. COVID, influenza, RSV negative * add vest therapy and Mucinex. Sigmoid lesion * 3.[address] * Concerning for malignancy. Will need GI outpt evaluation. * Check CEA. Hyponatremia * chronic * cortisol and TSH earlier this month was WNL. Serum OSM, urine OSM, urine Na indicative of SIADH. * Continue salt tabs. Fluid restrict 1.5 liters/day. Constipation: * no BM in several day. Gave Dulolax and Miralax and he has had BMs. * Had some bloating and abdominal pain, will start simethicone. Chronic conditions: * GERD-Continue PPI * Hypertension-Continue home losartan * Tobacco use-Advise cessation-Nicotine replacement ordered * History of alcohol use-Reports no alcohol use since February 27-Continue home thiamine and folate DVT ppx: Lovenox subcu Charges/Coding Visit Charges Inpatient E&M: 61245 Subs Hosp L2
[2024-03-20] MEDS: Senna/Docusate Sodium 1 Tablet 2 TABLET PO (10:16)
[2024-03-20] MEDS: Folic Acid 1 MG Tablet PO (10:16)
[2024-03-20] MEDS: Thiamine Hydrochloride 100 MG Tablet PO (10:16)
[2024-03-20] MEDS: Pantoprazole Sodium 40 MG Tablet PO (10:16)
[2024-03-20] MEDS: Sodium Chloride 1 GM Tablet PO (10:16)
[2024-03-20] MEDS: guaiFENesin 1,200 MG Tablet 1200 MG PO (10:16)
[2024-03-20] MEDS: levoFLOXacin IV 750 MG/150 ML BAG 100 MG IV (10:17)
[2024-03-20] MEDS: Enoxaparin 40 MG/0.4 ML Syringe SC (10:17)
[2024-03-20] MEDS: Polyethylene Glycol 3350 17 GM PACKET PO (10:17)
[2024-03-20] MEDS: Losartan Potassium 100 MG Tablet PO (10:19)
--- NOTE | 2024-03-20 15:04 | DS.PCM_ITS ---
Providers Date of Admission: 03/15/24 Primary Care Physician: Dr. Alfonso Fortune MD Reason For Visit: PNA AND AECOPD Diagnosis Discharge Diagnosis (1) Pneumonia: Status: Acute Code(s): J18.9 - Pneumonia, unspecified organism Plan AECOPD: * BDs methylpred * continue PEP Pseudomonas pneumonia * on CTX, azithromycin. Change to pip/tazo. * SCx Pseudomonas sensitive to Cefepime, cipro, LVQ, dov, pip/tazo. Start LVQ starting 03/19. Treat for 7 days. * strep and legionella antigens negative. Resp panel negative. COVID, influenza, RSV negative * add vest therapy and Mucinex. Sigmoid lesion * 3.[address] * Concerning for malignancy. Will need GI outpt evaluation. * Check CEA. Hyponatremia * chronic * cortisol and TSH earlier this month was WNL. Serum OSM, urine OSM, urine Na indicative of SIADH. * Continue salt tabs. Fluid restrict 1.5 liters/day. Constipation: * no BM in several day. Gave Dulolax and Miralax and he has had BMs. * Had some bloating and abdominal pain, will start simethicone. Chronic conditions: * GERD-Continue PPI * Hypertension-Continue home losartan * Tobacco use-Advise cessation-Nicotine replacement ordered * History of alcohol use-Reports no alcohol use since February 27-Continue home thiamine and folate DVT ppx: Lovenox subcu Medications at Discharge Home Medications epinephrine 0.3 mg/0.3 mL injection, auto-injector (EpiPen 2-Jesse) 0.3 mg IM ONCE PRN anaphylaxis 07/07/23 albuterol sulfate 90 mcg/actuation aerosol inhaler 1 puff inhalation Q6H PRN SOB #8.5 grams 01/16/24 Disability Placard #1 ea 01/30/24 losartan 100 mg tablet 100 mg PO QDAY blood pressure 01/30/24 fluticasone 500 mcg-salmeterol 50 mcg/dose blistr powdr for inhalation (Advair Diskus) 1 inh inhalation BID respiratory #3 ea 02/16/24 potassium chloride 20 mEq tablet,extended release(part/cryst) 20 meq PO BIDCM supplement #20 tabs 03/02/24 sodium chloride 1,000 mg soluble tablet 1,000 mg PO BID #60 tabs 03/02/24 thiamine HCl (vitamin B1) 100 mg tablet 100 mg PO DAILYCM #30 tabs 03/02/24 acetaminophen 500 mg tablet 1,000 mg PO Q8H pain 03/15/24 folic acid 1 mg tablet 1 mg PO DAILY supplement 03/15/24 oxycodone 5 mg tablet 5 mg PO Q4H PRN Pain Score 4-10 03/15/24 sennosides 8.6 mg-docusate sodium 50 mg tablet (Stimulant Laxative Plus) 2 tab PO BID PRN Constipation 03/15/24 tiotropium bromide 2.5 mcg/actuation mist for inhalation (Spiriva Respimat) 2 inh inhalation DAILY copd 03/15/24 bisacodyl 5 mg tablet 10 mg (2 x 5 mg) PO DAILY PRN constipation 0 days #10 tabs 03/20/24 guaifenesin 1,200 mg tablet, extended release 12 hr (Mucus Relief ER) 1,200 mg PO BID #10 tabs 03/20/24 levofloxacin 750 mg tablet 750 mg PO DAILY #5 tabs 03/20/24 melatonin 3 mg tablet 3 mg PO QHS PRN PRN Insomnia #0 tabs 03/20/24 polyethylene glycol 3350 17 gram/dose oral powder (Miralax) 17 g PO DAILY #119 grams 03/20/24 prednisone 20 mg tablet 40 mg (2 x 20 mg) PO DAILY #10 tabs 03/20/24 Hospital Course Operations None Procedures None Summary of Care Provided Minutes Spent on Discharge: 35 Hospital Course: Patient presents with shortness of breath and was diagnosed with COPD exacerbation. Patient was found to have Pseudomonas pneumonia started on pip- tazo initially. The Pseudomonas came back sensitive to fluoroquinolones so patient has been since started on Levaquin. Patient is slightly improved from his COPD standpoint and requires room air with rest but requires 2 L with activity as he becomes very short of breath. Patient also may complaining of constipation. He did have a CAT scan that showed a 3.2 cm lesion CAT scan in the mid sigmoid. Inflammatory versus neoplastic. Recommending outpatient endoscopy. Patient recommend follow-up with gastroenterology as outpatient. Oxygen testing reviewed and patient is ambulatory in home and in the community and requires home oxygen with portability. Medical Records Data Medical Nutrition Assessment Dietitian: Malnutrition Criteria Met Start: 03/16/24 13:45 Freq: Status: Active Protocol: Document 03/19/24 15:06 SB (Rec: 03/19/24 15:06 SB [id number]) Nutrition Malnutrition Evidence of Malnutrition Exists Yes Malnutrition (severe): Chronic Evidenced By Suboptimal Energy Intake ( Severe),Weight Loss (Severe) Clinical Problem Acute Disease or Injury Related Malnutrition Etiology severe related to inadequate oral intake (mandibular condyle fracture) and increase energy expenditure (COPD) Signs/Symptoms as evidenced by PO meeting <50 % of estimated nutrition needs x 2 weeks and 7.4% unintentional weight loss x 1 month. Status Active Problem Recommendation Dietitian Recommendations/Changes Continue regular diet with 1500ml fluid restriction and ensure compact TID with medpass and magic cup with dinner. Will monitor weight tends. Reviewed and approved by Melisa Link, MS, RDN, LD. Weight / BMI Weight Weight: 63.8 kg Body Mass Index (BMI) 20.2 ABG / Lab / Microbiology Data 03/19/24 05:20 03/19/24 05:20 Microbiology: Microbiology 03/15/24 11:36 Blood Culture (Wb) - Anticubital Right Blood Culture - Final No growth in 5 days. 03/15/24 10:01 Blood Culture (Wb) - Anticubital Right Blood Culture - Final No growth in 5 days. 03/15/24 14:35 Sputum, Expectorated/Coughed Gram Stain - Final 03/15/24 14:35 Sputum, Expectorated/Coughed Respiratory Culture - Final Pseudomonas aeruginosa 03/15/24 12:23 Urine, Clean Catch Urine Culture - Final Culture exhibits no growth. 03/15/24 21:01 Mucosa - Nasopharyngeal Respiratory Panel (PCR) - Final 03/15/24 12:23 Urine, Clean Catch Legionella Antigen - Final 03/15/24 12:23 Urine, Clean Catch Streptococcus pneumoniae Antigen (M - Final 03/15/24 10:11 Mucosa - Nose SARS-CoV-2, Influenza & RSV (PCR) - Final D/C Instructions Discharge Diet: Low fat / Low cholesterol DC O2, CPAP, BIPAP Needs RN Home O2 Qualification: Home O2 Qualification: Is the patient on home oxygen Yes 03/20/24 14:07 Home O2 Qualification: AT REST 1-Pulse Ox at rest 94 03/20/24 14:07 1- Oxygen flow rate at rest 2 03/20/24 14:07 Home O2 Qualification: WITH AMBULATION 1- Pulse Ox with ambulation 95 03/20/24 14:07 1- Oxygen Flow Rate with 2 03/20/24 14:07 ambulation 2- Pulse Ox with ambulation 86 03/19/24 15:15 2- Oxygen Flow Rate with 2 03/19/24 15:15 ambulation 3- Pulse Ox with ambulation 94 03/19/24 15:15 3- Oxygen Flow Rate with 3 03/19/24 15:15 ambulation 3- Stopped test - Unable to No 03/19/24 15:15 obtain pulse ox >89% w/ max oxyg Home O2 Discharge instructions: Yes Type of respiratory needs?: Oxygen Oxygen frequency: With Ambulation Oxygen liters per minute during Ambulation: 2 DC home with Oxygen: Yes Home O2 MD Review: I have reviewed the oxygen testing, and the patient qualifies for home oxygen equipment and portability. The patient is mobile in the home and the community. Meaningful Use Info Meaningful Use Meaningful Use Diagnoses (Choose all that apply): None applicable Ischemic Stroke Statin Dosing Therapy Reference: STATIN DOSE THERAPY REFERENCE: * Patients > 75 years receive moderate or high dose statin therapy. * Patients 75 years or YOUNGER should receive HIGH intensity statin dose unless contraindicated. You will be required to document reason for non-treatment if statin daily dose does not meet guidelines. HIGH DOSE STATIN THERAPY DAILY Atorvastatin > than or = to 40 mg Rosuvastatin > than or = to 20 mg Amlodipine + Atorvastatin > than or = to 2.5/40 mg Ezetimibe + Simvastatin 10/80 mg Simvastatin 80mg Discharge Plan Admission Admit Date/Time: 03/15/24 19:04 Primary Reason for Your Visit: Pneumonia Attending Provider: Neil Augustin Primary Care Provider: Alfonso Fortune Consulting Providers: Dana Miguel Instructions Additional Instructions / Restrictions: Please take the antibiotics to completion to treat the pneumonia. You will be on prednisone to help with your COPD. You will require oxygen 2 L with activity. Does not look like you needed at rest however. For your constipation, recommend taking MiraLAX daily and Dulcolax if you are becoming constipated as needed. Please follow-up with gastroenterology as there is an area concerning in your colon for a mass. It is unclear what that is but that needs to be further evaluated. Discharge Orders/Prescriptions Prescriptions: New melatonin 3 mg Tablet 3 mg PO QHS PRN PRN (Reason: Insomnia) Qty: 0 0RF guaifenesin [Mucus Relief ER] 1,200 mg Tablet Extended Release 12hr 1,200 mg PO BID Qty: 10 0RF levofloxacin 750 mg tablet 750 mg PO DAILY Qty: 5 0RF prednisone 20 mg tablet 40 mg PO DAILY Qty: 10 0RF polyethylene glycol 3350 [Miralax] 17 gram/dose powder 17 g PO DAILY Qty: 119 0RF Rx Instructions: over the counter, no prescription required. bisacodyl 5 mg tablet 10 mg PO DAILY PRN (Reason: constipation) Qty: 10 0RF Rx Instructions: over the counter. No prescription required. Continued losartan 100 mg tablet 100 mg PO QDAY (DME) Disability Placard See Rx Instructions .ROUTE .MEDSUPPLY Qty: 1 0RF Rx Instructions: expires 01/29/2029 epinephrine [EpiPen 2-Jesse] 0.3 mg/0.3 mL auto-injector 0.3 mg IM ONCE PRN (Reason: anaphylaxis) Rx Instructions: as a single dose; may repeat once potassium chloride 20 mEq Tablet,Er Particles/Crystals 20 meq PO BIDCM Qty: 20 0RF sodium chloride 1,000 mg Tablet,Soluble 1,000 mg PO BID Qty: 60 0RF thiamine HCl (vitamin B1) 100 mg Tablet 100 mg PO DAILYCM Qty: 30 0RF sennosides-docusate sodium [Stimulant Laxative Plus] 8.6-50 mg Tablet 2 tab PO BID PRN (Reason: Constipation) acetaminophen 500 mg Tablet 1,000 mg PO Q8H folic acid 1 mg Tablet 1 mg PO DAILY oxycodone 5 mg Tablet 5 mg PO Q4H PRN (Reason: Pain Score 4-10) Spiriva Respimat 2.5 mcg/actuation mist 2 inh inhalation DAILY Rx Instructions: administer at approximately the same time(s) each day albuterol sulfate 90 mcg/actuation HFA aerosol inhaler 1 puff INHALATION Q6H PRN (Reason: SOB) Qty: 8.5 11RF fluticasone propion-salmeterol [Advair Diskus] 500-50 mcg/dose blister with device 1 inh inhalation BID Qty: 3 3RF Referrals / Follow Up: [facility] [Provider Group] - Within 1 Month [facility] [Provider Group] - Within 2 Weeks Alfonso Fortune MD [Primary Care Provider] - Disposition Disposition (needs filled in before D/C Order can be placed): Home, Self Care Charges/Coding Visit Charges Inpatient E&M: 83245 Disch Hosp >30min
== END 2024-03-20 19:07 | disposition home or self-care (01) | DRG 177 ==
LOC: ED 18:04 → PCU 22:18
PROVIDERS: Admitting Provider Internal Medicine; Emergency Provider Emergency Medicine; PCP Family Medicine
DX: J15.1 Pneumonia due to Pseudomonas (principal); E43 Unspecified severe protein-calorie malnutrition; E22.2 Syndrome of inappropriate secretion of antidiuretic hormone; J44.0 Chronic obstructive pulmonary disease with (acute) lower respiratory infection; J44.1 Chronic obstructive pulmonary disease with (acute) exacerbation; I10 Essential (primary) hypertension; F10.10 Alcohol abuse, uncomplicated; F17.210 Nicotine dependence, cigarettes, uncomplicated; K59.00 Constipation, unspecified; K21.9 Gastro-esophageal reflux disease without esophagitis; K63.89 Other specified diseases of intestine; Z79.899 Other long term (current) drug therapy; Z79.51 Long term (current) use of inhaled steroids; Z87.19 Personal history of other diseases of the digestive system; Z68.20 Body mass index [BMI] 20.0-20.9, adult; Z86.0100 Personal history of colon polyps, unspecified
CPT/HCPCS: 36415; 71045; 71046; 74177; 80048; 80053; 81001; 82378; 83605; 83880; 84484; 85025; 85610; 85730; 87040; 87070; 87077; 87086; 87184; 87186; 87205; 87449; 87631; 87633; 93005; 94640; 94667; 94668; 97802; 99285; 99406; Q9967; A4216; J0696; J2405

== ENCOUNTER 2024-03-27 23:51 | Inpatient (IN) | payer OTHER, SELFPAY ==
[2024-03-27 23:52] VITALS: BP 107/70; PULSE 91; RESP 21; TEMP 36.6; O2SAT 97; BMI 19.9
[2024-03-28] VITALS (15 sets, daily range): BP systolic 105–148; BP diastolic 64–94; PULSE 89–113; RESP 15–22; TEMP 36.6–38.2; O2SAT 92–100; BMI 20.5; BMI 20.4
--- NOTE | 2024-03-28 00:14 | EKG12_ITS ---
Test Reason : Blood Pressure : */* mmHG Vent. Rate : 88 BPM Atrial Rate : 88 BPM P-R Int : 180 ms QRS Dur : 74 ms QT Int : 358 ms P-R-T Axes : 79 -37 66 degrees QTcB Int : 433 ms Normal sinus rhythm Left axis deviation Septal infarct (cited on or before 20-Jun-2020) Abnormal ECG Confirmed by TERESA ACEVES, KEISHA ([id number]), index editor DIANNA LAKE ([id number]) on 03/29/2024 7:06:58 AM Referred By: Confirmed By: KEISHA MOORE MD
--- NOTE | 2024-03-28 00:17 | EX.ED.DYSGE1 ---
HPI History of Present Illness Chief Complaint: Abd Pain Informant: patient and EMS Narrative Narrative: Worsening lower abdominal pain this evening.Urine frequency. Normal bowel movements. Discharge from hospital 6 days ago with Pseudomonas pneumonia and finished his Levaquin yesterday. He states since yesterday increasing productive cough. Subjective fevers. Decreased p.o. intake due to history of fractured jaw per patient. Prior to hospitalization was on oxygen only at night for history of COPD. Since being discharged but continues to liters of oxygen. EMS unable establish IV, they gave IM fentanyl. Patient states no improvement. Reviewing records, had a CT of the last admission, 3.2 cm sigmoid mass that was recommended further workup with GI as an outpatient. Prior similar symptoms: Yes [facility] Medical History (Updated 03/28/24 @ 04:[address] Felix Greenfield, DO) Smoker On home oxygen therapy IBS (irritable bowel syndrome) Hx of colonic polyp Alcohol abuse Hemorrhoids COPD (chronic obstructive pulmonary disease) Hypertension Arthritis Home Medications ?Medication ?Instructions ?Recorded ?Last Taken ?Type epinephrine 0.3 mg/0.3 mL 0.3 mg IM ONCE PRN anaphylaxis 07/07/23 Unknown History injection, auto-injector (EpiPen 2-Jesse) albuterol sulfate 90 mcg/actuation 1 puff inhalation Q6H PRN SOB #8.5 01/16/24 02/27/24 Rx aerosol inhaler grams Disability Placard #1 ea 01/30/24 Unknown Rx losartan 100 mg tablet 100 mg PO QDAY blood pressure 01/30/24 02/28/24 History fluticasone 500 mcg-salmeterol 50 1 inh inhalation BID respiratory 02/16/24 02/27/24 Rx mcg/dose blistr powdr for #3 ea inhalation (Advair Diskus) potassium chloride 20 mEq 20 meq PO BIDCM supplement #20 tabs 03/02/24 Unknown Rx tablet,extended release(part/cryst) sodium chloride 1,000 mg soluble 1,000 mg PO BID supplement #60 tabs 03/02/24 Unknown Rx tablet thiamine HCl (vitamin B1) 100 mg 100 mg PO DAILYCM supplement #30 03/02/24 Unknown Rx tablet tabs acetaminophen 500 mg tablet 1,000 mg PO Q8H pain 03/15/24 Unknown History folic acid 1 mg tablet 1 mg PO DAILY supplement 03/15/24 Unknown History sennosides 8.6 mg-docusate sodium 2 tab PO BID PRN Constipation 03/15/24 Unknown History 50 mg tablet (Stimulant Laxative Plus) tiotropium bromide 2.5 2 inh inhalation DAILY copd 03/15/24 Unknown History mcg/actuation mist for inhalation (Spiriva Respimat) bisacodyl 5 mg tablet 10 mg (2 x 5 mg) PO DAILY PRN 03/20/24 Unknown Rx constipation 0 days #10 tabs guaifenesin 1,200 mg tablet, 1,200 mg PO Q12H #10 tabs 03/20/24 Unknown Rx extended release 12 hr (Mucus Relief ER) levofloxacin 750 mg tablet 750 mg PO DAILY #5 tabs 03/20/24 Unknown Rx melatonin 3 mg tablet 3 mg PO QHS PRN PRN Insomnia #0 03/20/24 Unknown Rx tabs polyethylene glycol 3350 17 17 g PO DAILY #119 grams 03/20/24 Unknown Rx gram/dose oral powder (Miralax) prednisone 20 mg tablet 40 mg (2 x 20 mg) PO DAILY #10 tabs 03/20/24 Unknown Rx Allergy/AdvReac Type Severity Reaction Status Date / Time amlodipine (From Norvasc) Allergy Swelling Verified 03/27/24 23:58 lisinopril Allergy Pain in Verified 03/27/24 23:58 joints tamsulosin Allergy Other Verified 03/27/24 23:58 tolterodine (From Detrol) Allergy Other Verified 03/27/24 23:58 Family History Mother Arthritis Father Diabetes Heart disease Hypertension Surgical History Hx of vasectomy Hx of colonoscopy Hx of appendectomy Social History household members: spouse and children housing: house current occupational status: employed Smoking Status: Former smoker second hand exposure: Yes alcohol intake: current alcohol intake frequency: 3 or more drinks per day substance use type: does not use caffeine: Yes what type of physical activity do you participate in: none frequency: does not exercise ROS ROS ED Constitutional Constitutional ED: Reports fever(s); Denies chills or sweats ENT ENT ED: Denies sore throat Cardiovascular Cardiovascular: Denies chest pain, leg edema, palpitations or racing heartbeat Respiratory/Chest Respiratory/Chest: Reports cough and dyspnea; Denies dyspnea on exertion Gastrointestinal Gastrointestinal: Reports abdominal pain; Denies diarrhea, nausea or vomiting Genitourinary Genitourinary ED: Reports urinary frequency; Denies dysuria or hematuria Musculoskeletal Musculoskeletal: Denies back pain, extremity pain or neck pain Integumentary Denies rash or wounds Neurologic Neurologic: Denies headache(s), paresthesias or weakness EXAM Physical Exam Const Vital Signs: 03/27/24 23:52 03/28/24 00:16 03/28/24 01:52 Temperature 97.8 F Temperature Source Oral Pulse Rate 91 89 Respiratory Rate 21 H 17 Respiratory Pattern Blood Pressure 107/70 105/64 Blood Pressure Mean 82 77 Pulse Ox 97 96 97 Oxygen Delivery Method Nasal Cannula Nasal Cannula Oxygen Flow Rate (L/min) 2 2 2 03/28/24 03:00 03/28/24 03:07 03/28/24 03:08 Temperature 99.1 F 99.1 F Temperature Source Oral Pulse Rate 104 H 98 103 H Respiratory Rate 21 H 21 H 20 H Respiratory Pattern Blood Pressure 137/94 H 137/94 H 137/94 H Blood Pressure Mean 108 108 108 Pulse Ox 95 95 95 Oxygen Delivery Method Nasal Cannula Nasal Cannula Oxygen Flow Rate (L/min) 2 2 03/28/24 03:49 Temperature Temperature Source Pulse Rate 98 Respiratory Rate 16 Respiratory Pattern Normal Blood Pressure Blood Pressure Mean Pulse Ox Oxygen Delivery Method Oxygen Flow Rate (L/min) Positive well nourished and well developed Constitutional Narrative: 2 L of oxygen, nontoxic. General Appearance ED: well developed and NAD HEENT Reports moist mucous membranes normocephalic and atraumatic Eyes General Eye ED: Yes normal appearance of both eyes Neck full ROM Chest Wall Chest: Negative for tenderness Resp normal respiratory effort and normal air movement Effort and Inspection: symmetric chest movement; Negative for respiratory distress Cardio regular rate, regular rhythm and no murmurs Peripheral Pulses: pulses 2+ throughout GI normal to inspection, nondistended, normoactive bowel sounds GI Narrative: Lower abdominal tenderness, no distention. Palpation: Negative for guarding or rebound tenderness present Extremity normal to inspection General Extremety ED: Negative for edema or tenderness General Extremity: Negative for edema Neuro oriented x3 and no sensory deficits noted Sensorium / Orientation: awake and alert Skin no rashes or lesions noted and no wounds Sepsis Attestation Sepsis Alert: Yes Sepsis Attestation: Sepsis Ruled Out Date exam was performed: 03/28/24 Time exam was performed: 02:54 Possible Source of Sepsis: Pulmonary and GI tract/intra-abdominal Sepsis Organ Dysfunction Criteria Present: None MDM MDM MDM Narrative Medical decision making narrative: Interventions / MDM: Differential diagnosis: Pulmonary cavitary lesion, pneumonia, TB, stercoral colitis Diagnosis considered but do not suspect: Abdominal perforation however CT negative. My EKG interpretation: Sinus rate of 88, no ST changes, slight T wave inversion in aVL. Imaging independently reviewed and interpreted by myself: CT chest abdomen pelvis with IV contrast: Pulmonary opacity left upper lobe 4.8 cm infectious versus malignancy. TB not excluded per radiology. Bladder thickening. Retained stool proximal rectum with thickening perirectal stranding concerning for stercoral colitis. Age-indeterminate wedge fractures T4-T7. External documents reviewed: Recent hospitalization confirming Pseudomonas in the sputum. Test considered but not ordered:N/A ED course: Currently on 2 L oxygen no respiratory distress. Reports worsening cough and fevers last couple days we will recheck x-ray and nasal swab. Lightheaded symptoms we will get EKG. He had symptoms with his abdominal pain therefore likely vasovagal. Increasing lower abdominal pain known sigmoid mass. Will reCT for further evaluation. Additional pain medicines through the IV and fluids were given. Patient white count returned at 31,000 I added a lactic acid and blood cultures. Lactic acid returned at 1.8. Creatinine 0.74. Change order with x-ray over to CT scan of the chest with abdomen pelvis as he had no pneumonia with worsening cough. Results concerning cavitary lesion left upper lobe 4.8 cm. TB was in the differential. Placed in isolation. TB pathway order for suspected. Patient reported no history of TB in the past no recent travel. He was ordered for Zosyn and vancomycin with known Pseudomonas. In addition noted stercoral colitis concerns on CT. He was reporting bowel movements at home. There is no perforation on CT. I did order enema in the ED to get initiated for treatment. CT reported T4-T7 age-indeterminate wedge fractures. He denies any back pain. 0252: Current blood pressure stable, stable on 2 L nasal cannula. I will speak with hospitalist for admission for further management. Nursing with enema states there seem to be obstruction, perform digital rectal exam no obstruction however rectum went posteriorly, was able to place the tube posterior of the rectum for continued enema. However per nursing patient unable to hold things down therefore will leak out. 0355: I spoke with Dr. Johnston, will admit to negative pressure isolation room until ruled out. Discussed stercoral colitis with enema attempt in the ED. Re-evaluation: stable Disposition discussed with patient/family/significant other: Patient Case discussed with consulting clinician: Hospitalist This note was generated with [employer] dictation software. It may contain incorrect words, spelling, and punctuation that were not noted in checking the note before signing. Lab Data Attestation: I reviewed the patient's lab results. Labs: Laboratory Results - last 24 hr 03/27/24 03/28/24 23:50 00:56 WBC 31.2 H* RBC 4.25 L Hgb 13.0 Hct 38.7 L MCV 91.1 MCH 30.6 MCHC 33.6 RDW Std Deviation 40.3 RDW Coeff of Pam 12.1 Plt Count 562 H MPV 8.2 Immature Gran % (Auto) 1.000 H Neut % (Auto) 87.1 H Lymph % (Auto) 5.2 L [place] % (Auto) 6.2 Eos % (Auto) 0.1 Baso % (Auto) 0.4 Absolute Neuts (auto) 27.2 H Absolute Lymphs (auto) 1.61 Nucleated RBC % 0 Differential Comment SCANNED Diff Path Review May foll Sodium 128 L Potassium 4.2 Chloride 89 L Carbon Dioxide 31.0 Anion Gap 8 BUN 19 H Creatinine 0.74 Estim Creat Clear Calc 92.08 Est GFR (MDRD) Af Amer 139 Est GFR (MDRD) Non-Af 115 BUN/Creatinine Ratio 25.9 H Glucose 144 H Lactic Acid 1.8 Calcium 9.0 Total Bilirubin 0.70 AST 13 L ALT 23 Alkaline Phosphatase 83 Total Protein 7.0 Albumin 2.7 L Globulin 4.3 H Albumin/Globulin Ratio 0.6 L Radiography Diagnostic Testing: Clinical Impression(s) from Imaging Studies Chest/Abdomen/Pelvis CT 03/28/24 00:45 IMPRESSION: 1. Cavitary pulmonary opacity in the left upper lobe measuring 4.8 cm. Findings may be on an infectious inflammatory basis versus malignancy. TB is not excluded. 2. Mild reticulonodular opacities in the right lung base and small ground-glass nodular density in the left lower lobe which may be on an infectious inflammatory basis. 3. Diffuse urinary bladder wall thickening. Correlate for cystitis. 4. Significant retained stool within the proximal rectum with wall thickening and mild perirectal stranding as well as rectal distention can relate to stercoral colitis. 5. Colonic diverticulosis without diverticulitis. 6. Small-bowel demonstrates retained feces as well as fluid-filled loops of small bowel with scattered air-fluid levels. No definite small bowel obstruction is identified. 7. Age-indeterminate anterior wedge compression fractures from T4-T7 with no significant retropulsion. Clinical correlation for point tenderness is recommended. Alternatively, MRI can be obtained which is a more sensitive exam. 8. Additional findings as above. One or more dose reduction techniques were used (e.g., Automated exposure control, adjustment of the mA and/or kV according to patient size, use of iterative reconstruction technique). Reading Location: [facility] Critical Care Time Critical Care Time: Yes Critical care time (excluding procedures): 30-74 minutes, Discussing w/Patient &/or Family/Activities Coordinator, Discussing w/Consultants, Arranging Admission or Transfer, Performing Direct Patient Care at Bedside and - (35 minutes) Discharge Plan Dx/Rx/DC Orders Clinical Impression: Stercoral colitis, COPD (chronic obstructive pulmonary disease), Abdominal pain, Cavitary lesion of lung, Leukocytosis, Tobacco dependence Disposition Disposition: Acute Care Hospital [facility] Discharge Date/Time: 03/28/24 04:38
[2024-03-28 00:28] LABS: Absolute Lymphocyte Count 1.61 X10^3/uL (0.83-4.51); Absolute Neutrophil Count 27.2 X10^3/uL (2.0-7.7); Basophil# 0.13 X10^3/uL; Basophil% 0.4 % (0-1); Eosinophil# 0.02 X10^3/uL; Eosinophils% 0.1 % (0-5); Hematocrit 38.7 % (40-54); Lymphocyte # 1.61 X10^3/ul (0.83-4.51); Lymphocyte % 5.2 % (19-41); Mean Corp Hgb Conc 33.6 g/dL (32-36); Mean Corpuscular Hgb 30.6 pg (27.0-32.0); Mean Corpuscular Volume 91.1 fL (80-94); Mean Platelet Vol. 8.2 fl (6.2-12.0); Monocyte# 1.94 X10^3/uL; Monocyte% 6.2 % (0-10); NRBC Flagged by Analyzer 0 % (0-5); Neutrophil # 27.16 X10^3/uL (2.7-7.7); Neutrophil % 87.1 % (47-70); POSITIVE COUNT YES; POSITIVE DIFFERENTIAL YES; Platelet Count 562 K/mm3 (150-450); RBC Distribution Width CV 12.1 % (11.6-14.6); RBC Distribution Width SD 40.3 fl (35.1-43.9); Red Blood Count 4.25 M/mm3 (4.6-6.2)
[2024-03-28] MEDS: Morphine 4 MG/ML Syringe IV ×3 (00:30→04:27)
[2024-03-28] MEDS: 0.9% Normal Saline (500mL Bag) 500 ML 999 ML IV (00:30)
[2024-03-28] MEDS: Ondansetron 4 MG/2 ML Vial IV (00:30)
[2024-03-28 00:34] LABS: Differential Indicated SCAN CRITERIA MET; White Blood Count 31.2 K/mm3 (4.4-11.0)
--- NOTE | 2024-03-28 00:45 | CT_ITS ---
PROCEDURE: CT CHEST, ABD, PEL W/CONTRAST REASON FOR EXAM: Cough, pain, cramping. TECHNIQUE: Chest, abdomen and pelvis CT with intravenous contrast. COMPARISON: CT abdomen/pelvis from 05/26/2023. FINDINGS: CT CHEST: Cardiac size is within normal limits. Thoracic aorta demonstrates a normal caliber with atherosclerotic calcifications. Multivessel coronary artery calcifications are identified. No lymphadenopathy is present. No pericardial or pleural effusion is identified. There is mild bilateral retroareolar soft tissue attenuation likely related to gynecomastia. Evaluation of the lung parenchyma demonstrates a cavitary consolidation with irregular margination in the left upper lobe measuring approximately 4.8 x 4.2 x 4.0 cm in the cc, transverse, and AP dimensions respectively. There are mild reticulonodular opacities in the right lung base. There is a small ground-glass nodular opacity in the anterior aspect of the left lower lobe (image 72 of 125). Emphysematous changes are identified. Central airway is patent. Evaluation of the osseous structures demonstrates age-indeterminate rzsx-xc-aahwjavj anterior wedge compression fractures from T4-T7 with no significant retropulsion. Multilevel degenerative changes are identified. CT ABDOMEN/PELVIS: There is a small focal area of hypoattenuation involving the liver adjacent to the falciform ligament which is stable and likely relates to focal fatty infiltration. Otherwise the liver and spleen enhance homogeneously. Pancreas, biliary system, gallbladder, and adrenal glands are unremarkable. Abdominal aorta demonstrates a normal caliber with atherosclerotic calcifications. Bilateral kidneys enhance homogeneously without hydronephrosis or obstructive uropathy. Bilateral perinephric stranding is stable and on a chronic basis. There is a small fat containing umbilical hernia. Urinary bladder is underdistended with diffuse wall thickening. There is significant retained stool within the proximal rectum with wall thickening and mild perirectal stranding as well as rectal distention. Colonic diverticulosis is identified without diverticulitis. Appendix is not well visualized. Small bowel demonstrates retained feces and there are fluid-filled loops of small bowel with scattered air-fluid levels. No free air or free fluid is present. Trace bilateral hydroceles are present. Evaluation of the osseous structures demonstrates degenerative changes. There are chronic appearing anterior wedge compression fractures of L1 and L2. CT/CT Chest, Abd, Pel w/Contrast IMPRESSION: 1. Cavitary pulmonary opacity in the left upper lobe measuring 4.8 cm. Finding s may be on an infectious inflammatory basis versus malignancy. TB is not excluded. 2. Mild reticulonodular opacities in the right lung base and small ground-glass nodular density in the left lower lobe which may be on an infectious inflammatory basis. 3. Diffuse urinary bladder wall thickening. Correlate for cystitis. 4. Significant retained stool within the proximal rectum with wall thickening a nd mild perirectal stranding as well as rectal distention can relate to stercoral colitis. 5. Colonic diverticulosis without diverticulitis. 6. Small-bowel demonstrates retained feces as well as fluid-filled loops of sma ll bowel with scattered air-fluid levels. No definite small bowel obstruction is identified. 7. Age-indeterminate anterior wedge compression fractures from T4-T7 with no si gnificant retropulsion. Clinical correlation for point tenderness is recommended. Alternatively, MRI can be obtained which is a more sensitive exam. 8. Additional findings as above. One or more dose reduction techniques were used (e.g., Automated exposure contr ol, adjustment of the mA and/or kV according to patient size, use of iterative reconstruction technique). Reading Location: [facility]
--- NOTE | 2024-03-28 00:46 | ED.RN ---
03/28/2024 at 0040 patient stool was collected at the bedside commode
[2024-03-28 00:55] LABS: ALB/GLOB Ratio 0.6 RATIO (0.9-2.4); AST(SGOT) 13 U/L (15-37); Alanine Aminotransfer ALT/SGPT 23 U/L (16-61); Albumin, Serum 2.7 g/dL (3.2-5.0); Alkaline Phosphatase 83 U/L (45-117); Anion Gap 8 (5-15); BUN 19 mg/dL (7-18); BUN/Creat Ratio 25.9 RATIO (10-20); Chloride 89 mmol/L (98-107); Creatinine, Serum 0.74 mg/dL (0.70-1.30); EST Glomerular Filtration Rate 115 mL/min (>60); Est Glom Filt Rate - Afr Amer 139 mL/min (>60); Estimated Creatinine Clearance 92.08 ml/min; Globulin 4.3 g/dL (2.2-4.2); Glucose 144 mg/dL (74-106); Potassium 4.2 mmol/L (3.5-5.1); Sodium Level 128 mmol/L (136-145)
[2024-03-28 01:16] LABS: Differential Comment SCANNED
[2024-03-28 01:30] LABS: Lactic Acid 1.8 mmol/L (0.4-1.9)
[2024-03-28] MEDS: Piperacil/Tazobactam 4.5 GM in 0.9% Normal Saline (100mL MB+) 100 ML IV (02:54)
[2024-03-28] MEDS: Vancomycin HCl 1,500 MG in 0.9% Normal Saline (500mL Bag) 500 ML 250 MG IV (03:33)
[2024-03-28] MEDS: Sodium Chloride 3% 500 ML IV.SOLN. INHALATION ×3 (03:49→17:16)
--- NOTE | 2024-03-28 03:53 | PCM.HP.STD ---
[facility] General Date of Admission: 03/28/24 Date of Service: 03/28/24 Chief Complaint: Abdominal Pain and SOB. [facility] Narrative LAUREL OTERO, is a 63 M with a past medical history of essential hypertension; on losartan, history of tobacco abuse (quit early February 2024); with subsequent COPD, chronic hypoxic respiratory failure; on 2L NC previously nocturnal but now using continuously, history of COVID-19, history of alcohol abuse; with patient stating he used to drink ~3-6 beers daily until February 27, 2024 with no alcohol intake since that time, history of chronic hyponatremia; previously attributed to beer potomania, history of IBS, history of colon polyp, history of hemorrhoids, history of vasectomy, history of colonoscopy, history of appendectomy, history of recent jaw fracture; with decreased appetite and recent admission here from February 28, 2024 to March 02, 2024 for treatment of a syncopal episode with subsequent facial trauma causing Right mandibular condyle fracture complicated by CT evidence of pyelonephritis treated with ceftriaxone followed by a another even more recent admission here from March 15, 2024 to March 20, 2024 with MAXINE infiltrate with chest x-ray suggestive of pneumonia that was suspected to be community-acquired in origin along with corresponding Leukocytosis of 18K and clinical evidence of AE COPD with njbwp-ly-esnxxwe respiratory insufficiency with urine cultures returning positive for Pseudomonas aeruginosa; sensitive to Levaquin; which was prescribed for a 7-day course along with a prednisone taper and mildly worsening chronic hyponatremia of 126 mmol/L present on admission complicated by CT positive for ~3.2 cm mid-sigmoid lesion suspicious for malignancy with patient instructed to follow-up as an outpatient with gastroenterology and with a chest CT done on March 19, 2023 that revealed mild underlying emphysema with chronic interstitial changes in both lung mims with a stable ~2.5 mm nodule in the Right upper lobe and no other suspicious noncalcified mass or nodule noted who now re-presents to [facility] complaining of worsening abdominal pain and shortness of breath. Mr. Otero reports the abrupt-onset of severe abdominal pain on the evening of March 27, 2024. He describes the pain as generalized, cramping, severe and not made better or worse by anything. He denies related fever, chills, nausea, vomiting, diarrhea and he states he has been having normal bowel movements. He states he finished his Levaquin yesterday to complete a 7-day course as prescribed with increasing productive cough and subjective fevers with urinary frequency in addition to decreased appetite due to his recent traumatic jaw fracture after a syncopal event. He denies associated chills, chest pain, runny nose, sore throat, lower extremity edema, dysuria, back pain, rash, wounds or headache. In the ER he was noted to have CT evidence of cavitary pulmonary opacity in the Left upper lobe measuring ~4.8 cm suspicious for malignancy versus TB along with mild reticulonodular opacities in the Right lung base and small ground-glass nodular density in the Left lower lobe which may be an infectious or inflammatory in addition to diffuse urinary bladder wall thickening with recommendation to correlate for cystitis and significant retained stool within the proximal rectum with wall thickening and mild perirectal stranding as well as rectal distention can relate to Stercoral Colitis with corresponding laboratory evidence of Severe Leukocytosis of 31.2K with left shift of 1% (with patient having leukocytosis of 14.1 K on March 19, 2024) complicated by persistent mild chronic Hyponatremia of 128 mmol/L present on admission and he was then admitted to a negative pressure room on the PCU for ongoing care for a stay that is expected to extend beyond 2 midnights. [facility] Medical History (Updated 03/28/24 @ 05:[address] Felix Greenfield, ) Smoker On home oxygen therapy IBS (irritable bowel syndrome) Hx of colonic polyp Alcohol abuse Hemorrhoids COPD (chronic obstructive pulmonary disease) Hypertension Arthritis Home Medications ?Medication ?Instructions ?Recorded ?Last Taken ?Type epinephrine 0.3 mg/0.3 mL 0.3 mg IM ONCE PRN anaphylaxis 07/07/23 Unknown History injection, auto-injector (EpiPen 2-Jesse) albuterol sulfate 90 mcg/actuation 1 puff inhalation Q6H PRN SOB #8.5 01/16/24 02/27/24 Rx aerosol inhaler grams Disability Placard #1 ea 01/30/24 Unknown Rx losartan 100 mg tablet 100 mg PO QDAY blood pressure 01/30/24 02/28/24 History fluticasone 500 mcg-salmeterol 50 1 inh inhalation BID respiratory 02/16/24 02/27/24 Rx mcg/dose blistr powdr for #3 ea inhalation (Advair Diskus) potassium chloride 20 mEq 20 meq PO BIDCM supplement #20 tabs 03/02/24 Unknown Rx tablet,extended release(part/cryst) sodium chloride 1,000 mg soluble 1,000 mg PO BID supplement #60 tabs 03/02/24 Unknown Rx tablet thiamine HCl (vitamin B1) 100 mg 100 mg PO DAILYCM supplement #30 03/02/24 Unknown Rx tablet tabs acetaminophen 500 mg tablet 1,000 mg PO Q8H pain 03/15/24 Unknown History folic acid 1 mg tablet 1 mg PO DAILY supplement 03/15/24 Unknown History sennosides 8.6 mg-docusate sodium 2 tab PO BID PRN Constipation 03/15/24 Unknown History 50 mg tablet (Stimulant Laxative Plus) tiotropium bromide 2.5 2 inh inhalation DAILY copd 03/15/24 Unknown History mcg/actuation mist for inhalation (Spiriva Respimat) bisacodyl 5 mg tablet 10 mg (2 x 5 mg) PO DAILY PRN 03/20/24 Unknown Rx constipation 0 days #10 tabs guaifenesin 1,200 mg tablet, 1,200 mg PO Q12H #10 tabs 03/20/24 Unknown Rx extended release 12 hr (Mucus Relief ER) levofloxacin 750 mg tablet 750 mg PO DAILY #5 tabs 03/20/24 Unknown Rx melatonin 3 mg tablet 3 mg PO QHS PRN PRN Insomnia #0 03/20/24 Unknown Rx tabs polyethylene glycol 3350 17 17 g PO DAILY #119 grams 03/20/24 Unknown Rx gram/dose oral powder (Miralax) prednisone 20 mg tablet 40 mg (2 x 20 mg) PO DAILY #10 tabs 03/20/24 Unknown Rx Allergy/AdvReac Type Severity Reaction Status Date / Time amlodipine (From Norvasc) Allergy Swelling Verified 03/27/24 23:58 lisinopril Allergy Pain in Verified 03/27/24 23:58 joints tamsulosin Allergy Other Verified 03/27/24 23:58 tolterodine (From Detrol) Allergy Other Verified 03/27/24 23:58 Family History Mother Arthritis Father Diabetes Heart disease Hypertension Surgical History Hx of vasectomy Hx of colonoscopy Hx of appendectomy Social History household members: spouse and children housing: house current occupational status: employed Smoking Status: Former smoker second hand exposure: Yes alcohol intake: current alcohol intake frequency: 3 or more drinks per day substance use type: does not use caffeine: Yes what type of physical activity do you participate in: none frequency: does not exercise ROS ROS Narrative Review of Systems: Constitutional: Patient admits to subjective fever but denies chills or sweats. Eyes: Patient denies changes in vision or discharge from eyes. ENT: Patient denies runny nose, sore throat or ear pain. Resp: Patient admits to chronic shortness of breath and productive cough of yellowish sputum. GI: Patient admits to diffuse, severe abdominal pain and constipation with decreased appetite as per HPI. He denies diarrhea, nausea or vomiting. : Patient admits to urinary frequency but denies dysuria or hematuria. MSK: Patient denies arthralgias or myalgias. Skin: Patient denies rash, abscess, wounds or jaundice. Psych: Patient denies symptoms of uncontrolled depression or anxiety. Neuro: Patient denies headache, paresthesias or focal neurologic deficits. Allergy: Patient denies lip swelling, tongue swelling or urticaria. Hematology: Patient denies easy bleeding or easy bruisability. Endocrinology: Patient denies polyuria, polydipsia or polyphagia. 14 point review of systems otherwise negative except for positives noted above in HPI. Vital Signs Vital Signs Vital Signs: 03/27/24 23:52 03/28/24 00:16 03/28/24 01:52 Temperature 97.8 F Temperature Source Oral Pulse Rate 91 89 Respiratory Rate 21 H 17 Respiratory Pattern Blood Pressure 107/70 105/64 Blood Pressure Mean 82 77 Pulse Ox 97 96 97 Oxygen Delivery Method Nasal Cannula Nasal Cannula Oxygen Flow Rate (L/min) 2 2 2 03/28/24 03:00 03/28/24 03:07 03/28/24 03:08 Temperature 99.1 F 99.1 F Temperature Source Oral Pulse Rate 104 H 98 103 H Respiratory Rate 21 H 21 H 20 H Respiratory Pattern Blood Pressure 137/94 H 137/94 H 137/94 H Blood Pressure Mean 108 108 108 Pulse Ox 95 95 95 Oxygen Delivery Method Nasal Cannula Nasal Cannula Oxygen Flow Rate (L/min) 2 2 03/28/24 03:49 Temperature Temperature Source Pulse Rate 98 Respiratory Rate 16 Respiratory Pattern Normal Blood Pressure Blood Pressure Mean Pulse Ox Oxygen Delivery Method Oxygen Flow Rate (L/min) Weight Weight: 138 lb 10.732 oz Body Mass Index (BMI) 19.9 Physical Exam Const alert and oriented x3 Constitutional Narrative: Ffik-wk-mxuqcayc distress noted with the patient appearing chronically ill and older than his stated age. General Appearance: cooperative HEENT normocephalic, head/scalp atraumatic, hearing grossly normal bilaterally and moist oral mucous membranes Eyes PERRL and EOMs intact bilaterally Neck no lymphadenopathy and supple Resp Resp Narrative: Decreased breath sounds throughout most severely noted over Left upper lobe. Cardio regular rate and regular rhythm GI GI Narrative: Patient's abdomen is mildly distended with generalized tenderness to palpation and normal active bowel sounds. No evidence of guarding or rebound. Extremity normal to inspection, full ROM and no clubbing, cyanosis or edema Skin Skin Narrative: Patient has no evidence of rash, abscess, wounds or jaundice. Neuro oriented x3, CN's II-XII intact bilaterally, moves all extremities and no focal motor deficits Sensorium / Orientation: awake, alert, oriented to person, oriented to place and oriented to time Speech: speech normal Psych affect normal Results Medical Records Data Attestation: I reviewed the patient's medical records Lab / Micro Data Attestation: I reviewed the patient's lab results. 03/27/24 23:50 03/27/24 23:50 Labs: Laboratory Results - last 24 hr 03/27/24 23:50: WBC 31.2 H*, RBC 4.25 L, Hgb 13.0, Hct 38.7 L, MCV 91.1, MCH 30.6, MCHC 33.6, RDW Std Deviation 40.3, RDW Coeff of Pam 12.1, Plt Count 562 H, MPV 8.2, Immature Gran % (Auto) 1.000 H, Neut % (Auto) 87.1 H, Lymph % (Auto) 5.2 L, [place] % (Auto) 6.2, Eos % (Auto) 0.1, Baso % (Auto) 0.4, Absolute Neuts (auto) 27.2 H, Absolute Lymphs (auto) 1.61, Nucleated RBC % 0, Differential Comment SCANNED, Diff Path Review May foll, Sodium 128 L, Potassium 4.2, Chloride 89 L, Carbon Dioxide 31.0, Anion Gap 8, BUN 19 H, Creatinine 0.74, Estim Creat Clear Calc 92.08, Est GFR (MDRD) Af Amer 139, Est GFR (MDRD) Non-Af 115, BUN/Creatinine Ratio 25.9 H, Glucose 144 H, Calcium 9.0, Total Bilirubin 0.70, AST 13 L, ALT 23, Alkaline Phosphatase 83, Total Protein 7.0, Albumin 2.7 L, Globulin 4.3 H, Albumin/Globulin Ratio 0.6 L 03/28/24 00:56: Lactic Acid 1.8 Micro: Microbiology 03/28/24 01:02 Mucosa - Nose SARS-CoV-2, Influenza & RSV (PCR) - Final Imaging Radiology Impression Chest/Abdomen/Pelvis CT 03/28/24 00:45 IMPRESSION: 1. Cavitary pulmonary opacity in the left upper lobe measuring 4.8 cm. Findings may be on an infectious inflammatory basis versus malignancy. TB is not excluded. 2. Mild reticulonodular opacities in the right lung base and small ground-glass nodular density in the left lower lobe which may be on an infectious inflammatory basis. 3. Diffuse urinary bladder wall thickening. Correlate for cystitis. 4. Significant retained stool within the proximal rectum with wall thickening and mild perirectal stranding as well as rectal distention can relate to stercoral colitis. 5. Colonic diverticulosis without diverticulitis. 6. Small-bowel demonstrates retained feces as well as fluid-filled loops of small bowel with scattered air-fluid levels. No definite small bowel obstruction is identified. 7. Age-indeterminate anterior wedge compression fractures from T4-T7 with no significant retropulsion. Clinical correlation for point tenderness is recommended. Alternatively, MRI can be obtained which is a more sensitive exam. 8. Additional findings as above. One or more dose reduction techniques were used (e.g., Automated exposure control, adjustment of the mA and/or kV according to patient size, use of iterative reconstruction technique). Reading Location: [facility] Assessment & Plan Assessment/Plan (1) Cavitary lesion of lung: (2) Pneumonia: QUALIFIERS: Laterality: left Lung location: upper lobe of lung Pneumonia type: due to unspecified organism Qualified Code(s): J18.9 - Pneumonia, unspecified organism (3) Smoking greater than 40 pack years: (4) On home oxygen therapy: (5) Leukocytosis: QUALIFIERS: Leukocytosis type: unspecified Qualified Code(s): D72.829 - Elevated white blood cell count, unspecified (6) Stercoral colitis: (7) Colonic mass: (8) Abdominal pain: QUALIFIERS: Abdominal location: unspecified location Qualified Code(s): R10.9 - Unspecified abdominal pain (9) Acute cystitis: QUALIFIERS: Hematuria presence: without hematuria Qualified Code(s): N30.00 - Acute cystitis without hematuria (10) Chronic hyponatremia: (11) Generalized weakness: (12) Ambulatory dysfunction: (13) Hypoalbuminemia: PLAN: Plan 1. CT evidence of cavitary pulmonary opacity in the Left upper lobe measuring ~4.8 cm suspicious for malignancy versus TB along with mild reticulonodular opacities in the Right lung base and small ground-glass nodular density in the Left lower lobe which may be an infectious or inflammatory which was not seen on lung CT done on March 19, 2024 with a leukocytosis of 31.2K and Left-shift of 1% present on admission (but with no other signs of sepsis) in the setting of chronic severe COPD - Admit to PCU in negative pressure room under TB precautions. Continue IV piperacillin-tazobactam and IV vancomycin begun in ER and await culture and sensitivity data. Check urinary antigens to Streptococcus pneumonia and Legionella. Check sputum cultures including extended TB testing per protocol. Continue steroid-taper with IV Solu-Medrol 20 mg twice daily to replace oral prednisone. Nicotine patch offered to control cravings. Give acetaminophen as needed for ahyk-of-paijfboy (level 1-5/10) pain or fever. Give morphine IV as needed for severe (level 6-10/10) pain. Finally, we will consult Dr. Kruse of infectious disease to see patient on rounds in a.m. for further recommendations with help appreciated in advance. 2. Suspected Stercoral Colitis on CT this admission showing significant retained stool within the proximal rectum with wall thickening and mild perirectal stranding as well as rectal distention in the setting of previously known IBS complicating #1 - Keep n.p.o. for now. Aggressively volume resuscitate and start pantoprazole 40 mg IV daily. Give ondansetron IV as needed for nausea and vomiting. Finally, we will consult general surgery to see this patient on rounds in a.m. for further recommendations to avoid potential perforation with help appreciated in advance. 3. Acute Cystitis; suspected on CT with patient also complaining of urinary frequency compounding #1 & #2 - Patient started on IV piperacillin-tazobactam for #1. Await culture and sensitivity data to potentially narrow antibiotic spectrum. 4. Mild chronic Hyponatremia of 128 mmol/L present on admission adding to the medical complexity of #1 - #3 - Give NS IVF and check BMP daily. 5. Generalized Weakness with Ambulatory Dysfunction arising from #1 - #4 - PT/OT and Case Management to consult and treat on-rounds in AM for further recommendations with help appreciated in advance. 6. Very recent admission here from March 15, 2024 to March 20, 2024 with MAXINE infiltrate with chest x-ray suggestive of pneumonia that was suspected to be community-acquired in origin along with corresponding Leukocytosis of 18K and clinical evidence of AE COPD with gndou-mp-mxjulor respiratory insufficiency with urine cultures returning positive for Pseudomonas aeruginosa; sensitive to Levaquin; which was prescribed for a 7-day course along with a prednisone taper and mildly worsening chronic Hyponatremia of 126 mmol/L present on admission complicated by CT positive for ~3.2 cm mid-sigmoid lesion suspicious for malignancy with patient instructed to follow-up as an outpatient with gastroenterology - Noted. 7. Recent admission here from February 28, 2024 to March 02, 2024 for treatment of a syncopal episode with subsequent facial trauma causing Right mandibular condyle fracture complicated by CT evidence of pyelonephritis treated with ceftriaxone - Noted with no evidence of pyelonephritis on CT this admission. However, patient does have Hypoalbuminemia of 2.7 g/dL present on admission suspicious for possible protein-calorie malnutrition with clinical dietitian to consult in the a.m. on rounds for further recommendations regarding malnutrition workup without appreciated in advance. 8. Essential Hypertension; on losartan - Hold oral antihypertensives for no and give hydralazine prn for systolic blood pressure > 160 mmHg. 9. History of tobacco abuse; with subsequent COPD, chronic hypoxic respiratory failure; on 2L NC previously nocturnal but now using continuously - Noted. Patient allegedly quit smoking in early February of this year. Continue management outlined in #1. 10. History of COVID-19 - Noted. 11. History of alcohol abuse; with patient stating he used to drink ~3-6 beers daily until February 27, 2024 with no alcohol intake since that time - Noted. Patient should be observed closely for signs or symptoms of withdrawal. 12. History of Colon Polyp - Noted with possible malignancy and surgical consultation pending at this time. 13. History of hemorrhoids - Noted. 14. History of vasectomy - Noted. 15. History of colonoscopy - Noted. 16. History of appendectomy - Noted. 17. DVT prophylaxis - SCD's only with possible impending surgical procedure. Total time: Approximately (but not less than) 75 minutes. Charges/Coding Visit Charges Inpatient E&M: 12035 Init Hosp L3
--- NOTE | 2024-03-28 04:21 | SPU_PTH ---
PATIENT: LAUREL OTERO LOC: [facility] U#:[id number] AGE/SX: 63/M ROOM: [facility] RE03/28/[address]: Dr. Neil Augustin DO : 1960 BED: 1 DIS: 04/08/2024 SPEC #: [id number] RECD: 03/29/24 12:22 STATUS: LENCHO REDaniela #: [id number] SREEDHAR: 03/28/24 04:[address]: Liz Alvarenga DEPT: CYTOLOGY RECD BY: Ann Solorio ENTERED: 03/29/24 12:24 SP TYPE: Sputum Cy OTHR DR: MD Dr. Alfonso Stanley MD Dr. David de Lorenzo, DO Dr. Mark Tereletsky, DO Dr. Robert Leininger, MD Tissues: Sputum Procedures: Pap Stain (control) Special Stain Group II Special Stain Group I AFB Stain (control) GMS Stain (control) Cytospin Fluid HEADER OPERATION: Not noted PRE-OP DIAGNOSIS: Acute cystitis without hernia, pneumonia, TISSUE SUBMITTED: Sputum DIAGNOSIS CYTOLOGY Sputum for cytology (cytospins and smears): Negative for malignant cells. See comment. 03/30/2024 COMMENT Organisms consistent with bacteria are noted. Special stain for acid fast bacilli is negative for organisms; matched controls is appropriate. Special stain for fungi is positive for organisms (yeast and pseudohyphae) consistent with Jackelin species; matched control is appropriate. Clinical correlation and appropriate follow up are necessary. CYTOLOGY STUDY Slides are reviewed. CYTOLOGY GROSS Received is 0.5 ml of thick ryan muciody fluid labeled with the patient's name and and designated per the requisition as Sputum. Submitted for cytology preparation including cell block. 03/29/2024 TC:5 CPT: 98180 ,[id number]
[2024-03-28] MEDS: 0.9% Saline Lock 10 ML Syringe IV ×5 (05:27→23:02)
[2024-03-28] MEDS: 0.9% Normal Saline (1000mL) 1,000 ML 75 ML IV ×2 (05:27→17:46)
--- NOTE | 2024-03-28 05:31 | PCM.RX.CS ---
Consult Antibiotic Management Pharmacy has been consulted to manage selected antibiotic: Vancomycin Type of Intervention Type of Consult: New start Labs Labs: Sodium 128 mmol/L (136-145) L 03/27/24 23:50 Potassium 4.2 mmol/L (3.5-5.1) 03/27/24 23:50 Chloride 89 mmol/L (98-107) L 03/27/24 23:50 Carbon Dioxide 31.0 mmol/L (21.0-32.0) 03/27/24 23:50 Anion Gap 8 (5-15) 03/27/24 23:50 BUN 19 mg/dL (7-18) H 03/27/24 23:50 Creatinine 0.74 mg/dL (0.70-1.30) 03/27/24 23:50 Est GFR (MDRD) Af Amer 139 mL/min (>60) 03/27/24 23:50 Est GFR (MDRD) Non-Af 115 mL/min (>60) 03/27/24 23:50 BUN/Creatinine Ratio 25.9 RATIO (10-20) H 03/27/24 23:50 Glucose 144 mg/dL (74-106) H 03/27/24 23:50 Microbiology Microbiology: Microbiology 03/28/24 01:02 Mucosa - Nose SARS-CoV-2, Influenza & RSV (PCR) - Final Dosing Weight Weight used for dosin kg Estimated Creatinine Clearance Estimated Creatinine Clearance: 92 Goal Trough Goal Trough: 15-20 mcg/mL Pharmacy Plan for Drug Dosing Pharmacy Plan for Drug Dosing: Pharmacy Service will continue to monitor and adjust dosing as required. Follow-Up Labs Follow-Up Labs: Trough: Vancomycin Date/Time Labs Ordered Labs to be done on [date and time ordered]: 03/29/24 @1500
[2024-03-28 06:22] LABS: Bacteria 0 SEEN /hpf (None Seen); Mucous, Urine 0 SEEN /hpf (<or=2+); Red Blood Cells-Urine 0 SEEN /hpf (0-5); Squamous Epithelial Cells - UA 0 SEEN /hpf (0-5); White Blood Cells 0 SEEN /hpf (0-5)
[2024-03-28 06:29] LABS: Color, Urine Amber (Yellow); Glucose, Dipstick Normal (Normal); Ketone-Dipstick 5 mg/dl (Negative); Leukocyte Esterase-Dipstick 25 /ul (Negative); Nitrite-Dipstick Positive (Negative); Occult Blood-Urine 10 /ul (Negative); Protein-Dipstick 30 mg/dl (Negative); Urine Clarity Clear (Clear); Urine Urobilinogen 4 mg/dl (Normal); Urine pH 6.5 (5.0 - 8.0)
[2024-03-28 07:03] LABS: Urine Bilirubin Dipstick 1 mg/dL (Negative)
[2024-03-28] MEDS: Morphine 2 MG/ML Syringe IV ×4 (07:05→19:34)
[2024-03-28 07:21] LABS: Absolute Lymphocyte Count 1.25 X10^3/uL (0.83-4.51); Absolute Neutrophil Count 19.1 X10^3/uL (2.0-7.7); Basophil# 0.06 X10^3/uL; Basophil% 0.3 % (0-1); Eosinophil# 0.93 X10^3/uL; Hematocrit 34.4 % (40-54); Hemoglobin 11.6 g/dL (13.0-16.5); Lymphocyte # 1.25 X10^3/ul (0.83-4.51); Lymphocyte % 5.4 % (19-41); Mean Corp Hgb Conc 33.7 g/dL (32-36); Mean Corpuscular Hgb 30.6 pg (27.0-32.0); Mean Corpuscular Volume 90.8 fL (80-94); Mean Platelet Vol. 7.9 fl (6.2-12.0); Monocyte# 1.65 X10^3/uL; Monocyte% 7.1 % (0-10); NRBC Flagged by Analyzer 0 % (0-5); Neutrophil # 19.05 X10^3/uL (2.7-7.7); Neutrophil % 82.5 % (47-70); POSITIVE DIFFERENTIAL YES; POSITIVE MORPHOLOGY YES; Platelet Count 447 K/mm3 (150-450); RBC Distribution Width SD 40.3 fl (35.1-43.9); Red Blood Count 3.79 M/mm3 (4.6-6.2); White Blood Count 23.1 K/mm3 (4.4-11.0)
[2024-03-28 07:53] LABS: ALB/GLOB Ratio 0.6 RATIO (0.9-2.4); AST(SGOT) 15 U/L (15-37); Alanine Aminotransfer ALT/SGPT 18 U/L (16-61); Albumin, Serum 2.3 g/dL (3.2-5.0); Alkaline Phosphatase 76 U/L (45-117); Anion Gap 6 (5-15); BUN 15 mg/dL (7-18); BUN/Creat Ratio 31.8 RATIO (10-20); Calcium,Total 8.3 mg/dL (8.5-10.1); Chloride 94 mmol/L (98-107); Creatinine, Serum 0.47 mg/dL (0.70-1.30); EST Glomerular Filtration Rate 191 mL/min (>60); Est Glom Filt Rate - Afr Amer 231 mL/min (>60); Estimated Creatinine Clearance 141.06 ml/min; Globulin 3.9 g/dL (2.2-4.2); Glucose 106 mg/dL (74-106); Magnesium 2.1 mg/dL (1.6-2.6); Potassium 4.8 mmol/L (3.5-5.1); Protein, Total 6.2 g/dL (6.4-8.2); Sodium Level 130 mmol/L (136-145); Thyroid Stim Hormone (TSH) 0.848 uIU/mL (0.358-3.740)
[2024-03-28 08:02] LABS: Differential Indicated SCAN CRITERIA MET
[2024-03-28 08:03] LABS: Platelet Estimate SLT INC (ADEQ)
[2024-03-28] MEDS: Ipratropium/Albuterol Sulfate 3 ML AMPUL.NEB INHALATION ×3 (09:04→21:18)
[2024-03-28] MEDS: Budesonide Respules 0.5 MG/2 ML AMPUL.NEB. INHALATION ×2 (09:04→21:18)
[2024-03-28] MEDS: Pantoprazole Sodium 40 MG in 0.9% Normal Saline (100mL MB+) 100 ML 330 MG IV (09:14)
[2024-03-28] MEDS: Heparin Injection (Vial) 5,000 UNIT/ML VIAL 5000 UNIT SC ×2 (09:15→21:35)
--- NOTE | 2024-03-28 09:47 | CON.PCM.SX_ITS ---
Assessment & Plan Assessment/Plan (1) Pneumonia: QUALIFIERS: Pneumonia type: due to unspecified organism L aterality: left Lung location: upper lobe of lung Qualified Code(s): J18.9 - Pneumonia, unspecified organism PLAN: Patient has a cavitary lesion in the lung and he is being worked up for possible TB. (2) Colonic mass: PLAN: The patient has a colonic mass that is causing partial obstruction. It was seen on his last CAT scan and he never had time to follow-up with GI. This current CAT scan shows a 3.2 cm mass in the sigmoid colon as well as thickening of the sigmoid proximal to this possibly from stercoral colitis. At this time I would try to disimpact the patient is much as possible. I will order a soapsuds enema as well as some MiraLAX from above. If I can clear him out I would like to perform a sigmoidoscopy to evaluate the sigmoid colon. Patient's last colonoscopy was 7 years ago. Jordan Ortega MD Pager: [facility] [address] [place] [address], [address] [place] [address] Office: HPI Consult Data Date of Consult: 03/28/24 HPI Narrative HPI Narrative: LAUREL OTERO, is a 63 M who presents to the hospital with lower abdominal pain. He says the cramping the pain started yesterday abruptly. He says that it has been giving him problems for the last few weeks. He is reporting a normal bowel movement yesterday. He denies fevers or chills. [facility] Medical History (Updated 03/28/24 @ 05:[address] Felix Greenfield, DO) Smoker On home oxygen therapy IBS (irritable bowel syndrome) Hx of colonic polyp Alcohol abuse Hemorrhoids COPD (chronic obstructive pulmonary disease) Hypertension Arthritis Home Medications ?Medication ?Instructions ?Recorded ?Last Taken ?Type epinephrine 0.3 mg/0.3 mL 0.3 mg IM ONCE PRN anaphylax is 07/07/23 Unknown History injection, auto-injector (EpiPen 2-Jesse) albuterol sulfate 90 mcg/actuation 1 puff inhalation Q 6H PRN SOB #8.5 01/16/24 02/27/24 Rx aerosol inhaler grams Disability Placard #1 ea 01/30/24 Unknown Rx losartan 100 mg tablet 100 mg PO QDAY blood pressur e 01/30/24 02/28/24 History fluticasone 500 mcg-salmeterol 50 1 inh inhalation BID respiratory 02/16/24 02/27/24 Rx mcg/dose blistr powdr for #3 ea inhalation (Advair Diskus) potassium chloride 20 mEq 20 meq PO BIDCM supplement # 20 tabs 03/02/24 Unknown Rx tablet,extended release(part/cryst) sodium chloride 1,000 mg soluble 1,000 mg PO BID suppl ement #60 tabs 03/02/24 Unknown Rx tablet thiamine HCl (vitamin B1) 100 mg 100 mg PO DAILYCM sup plement #30 03/02/24 Unknown Rx tablet tabs acetaminophen 500 mg tablet 1,000 mg PO Q8H pain 03/15 Unknown History folic acid 1 mg tablet 1 mg PO DAILY supplement Unknown History sennosides 8.6 mg-docusate sodium 2 tab PO BID PRN Con stipation 03/15/24 Unknown History 50 mg tablet (Stimulant Laxative Plus) tiotropium bromide 2.5 2 inh inhalation DAILY copd 03/15/24 Unknown History mcg/actuation mist for inhalation (Spiriva Respimat) bisacodyl 5 mg tablet 10 mg (2 x 5 mg) PO DAILY RI N 03/20/24 Unknown Rx constipation 0 days #10 tabs guaifenesin 1,200 mg tablet, 1,200 mg PO Q12H #10 tabs 03/20/24 Unknown Rx extended release 12 hr (Mucus Relief ER) levofloxacin 750 mg tablet 750 mg PO DAILY #5 tabs Unknown Rx melatonin 3 mg tablet 3 mg PO QHS PRN PRN Insomnia #0 03/20/24 Unknown Rx tabs polyethylene glycol 3350 17 17 g PO DAILY #119 grams 0 03/20/24 Unknown Rx gram/dose oral powder (Miralax) prednisone 20 mg tablet 40 mg (2 x 20 mg) PO DAILY # 10 tabs 03/20/24 Unknown Rx Allergy/AdvReac Type Severity Reaction Status Date / Time amlodipine (From [facility][1]) Allergy Swelling Verified 03/27/24 23:58 lisinopril Allergy Pain in Verified 03/27/24 23:58 joints tamsulosin Allergy Other Verified 03/27/24 23:58 tolterodine (From Detrol) Allergy Other Verified 03/27/24 23:58 Family History Mother Arthritis Father Diabetes Heart disease Hypertension Surgical History Hx of vasectomy Hx of colonoscopy Hx of appendectomy Social History household members: spouse and children housing: house current occupational status: employed Smoking Status: Former smoker second hand exposure: Yes alcohol intake: current alcohol intake frequency: 3 or more drinks per day substance use type: does not use caffeine: Yes what type of physical activity do you participate in: none frequency: does not exercise Physical Exam Const alert and oriented x3 HEENT normocephalic Eyes PERRL Resp normal respiratory effort Cardio Rate: regular rate Rhythm: regular rhythm GI soft to palpation Inspection: Negative for abdominal distention Palpation: tender LLQ Lab / Micro Data 03/28/24 07:10 03/28/24 07:10 Labs: Laboratory Results - last 24 hr 03/27/24 23:50: WBC 31.2 H*, RBC 4.25 L, Hgb 13.0, Hct 38.7 L, MCV 91.1, MCH 30.6, MCHC 33.6, RDW Std Deviation 40.3, RDW Coeff of Pam 12.1, Plt Count 562 H, MPV 8.2, Immature Gran % (Auto) 1.000 H, Neut % (Auto) 87.1 H, Lymph % (Auto) 5.2 L, [place] % (Auto) 6.2, Eos % (Auto) 0.1, Baso % (Auto) 0.4, Absolute Neuts (auto) 27.2 H, Absolute Lymphs (auto) 1.61, Nucleated RBC % 0, Differential Comment SCANNED, Diff Path Review June, Sodium 128 L, Potassium 4.2, C hloride 89 L, Carbon Dioxide 31.0, Anion Gap 8, BUN 19 H, Creatinine 0.74, Estim Creat Clear Calc 92.08, Est GFR (MDRD) Af Amer 139, Est GFR (MDRD) Non-Af 115, B UN/Creatinine Ratio 25.9 H, Glucose 144 H, Calcium 9.0, Total Bilirubin 0.70, A ST 13 L, ALT 23, Alkaline Phosphatase 83, Total Protein 7.0, Albumin 2.7 L, G lobulin 4.3 H, Albumin/Globulin Ratio 0.6 L 03/28/24 00:56: Lactic Acid 1.8 03/28/24 06:00: Urine Color Melanie, Urine Clarity Clear, Urine pH 6.5, Ur Specific [place] 1.010, Urine Protein 30 H, Urine Glucose (UA) Normal, Urine Ketones 5 H, Urine Occult Blood 10 H, Urine Nitrite Positive H, Urine Bilirubin 1 H, Urine Urobilinogen 4 H, Ur Leukocyte Esterase 25 H, Urine RBC 0 SEEN, Urine WBC 0 SEEN, Ur Squamous Epith Cells 0 SEEN, Urine Bacteria 0 SEEN, Urine Mucus 0 SEEN 03/28/24 07:10: WBC 23.1 H, RBC 3.79 L, Hgb 11.6 L, Hct 34.4 L, MCV 90.8, MCH 30.6, MCHC 33.7, RDW Std Deviation 40.3, RDW Coeff of Pam 12.0, Plt Count 447, MPV 7.9, Immature Gran % (Auto) 0.700, Neut % (Auto) 82.5 H, Lymph % (Auto) 5.4 L, [place] % (Auto) 7.1, Eos % (Auto) 4.0, Baso % (Auto) 0.3, Absolute Neuts (auto) 19.1 H, Absolute Lymphs (auto) 1.25, Nucleated RBC % 0, Diff Path Review June, Platelet Estimate SLT INC, Sodium 130 L, Potassium 4.8, Chloride 94 L, Carbon Dioxide 30.0, Anion Gap 6, BUN 15, Creatinine 0.47 L, Estim Creat Clear Calc 141.06, Est GFR (MDRD) Af Amer 231, Est GFR (MDRD) Non-Af 191, B UN/Creatinine Ratio 31.8 H, Glucose 106, Calcium 8.3 L, Phosphorus 3.0, Magnesium 2.1, Total Bilirubin 0.60, AST 15, ALT 18, Alkaline Phosphatase 76, T otal Protein 6.2 L, Albumin 2.3 L, Globulin 3.9, Albumin/Globulin Ratio 0.6 L, TSH 0.848 Micro: Microbiology 03/28/24 06:00 Urine, Clean Catch Legionella Antigen - Final 03/28/24 06:00 Urine, Clean Catch Streptococcus pneumoniae Antigen (M - Final 03/28/24 01:02 Mucosa - Nose SARS-CoV-2, Influenza & RSV (PCR) - Final Imaging Radiology Impression Chest/Abdomen/Pelvis CT 03/28/24 00:45 IMPRESSION: 1. Cavitary pulmonary opacity in the left upper lobe measuring 4.8 cm. Findings may be on an infectious inflammatory basis versus malignancy. TB is not excluded. 2. Mild reticulonodular opacities in the right lung base and small ground-glass nodular density in the left lower lobe which may be on an infectious inflammatory basis. 3. Diffuse urinary bladder wall thickening. Correlate for cystitis. 4. Significant retained stool within the proximal rectum with wall thickening and mild perirectal stranding as well as rectal distention can relate to stercoral colitis. 5. Colonic diverticulosis without diverticulitis. 6. Small-bowel demonstrates retained feces as well as fluid-filled loops of small bowel with scattered air-fluid levels. No definite small bowel obstruction is identified. 7. Age-indeterminate anterior wedge compression fractures from T4-T7 with no significant retropulsion. Clinical correlation for point tenderness is recommended. Alternatively, MRI can be obtained which is a more sensitive exam. 8. Additional findings as above. One or more dose reduction techniques were used (e.g., Automated exposure control, adjustment of the mA and/or kV according to patient size, use of iterative reconstruction technique). Reading Location: [facility]
--- NOTE | 2024-03-28 10:07 | CPS ---
Patient reported giving a sputum sample this am, however it was canceled in [employer]. Spoke with micro to confirm, no sample was received by lab. New sputum sample obtained at 0940 and sent to lab. Spoke with Dr. Byrd, 2 more acid fast sputum samples are needed. Pharmacy was contacted to add another hypertonic saline aerosol for the 3rd sample, per Dr Byrd. Second sputum sample (after hypertonic saline aerosol) to be obtained around 1730 and third sample on 03-29-24 at 0130 (after hypertonic saline aerosol).
[2024-03-28] MEDS: Polyethylene Glycol 3350 17 GM PACKET 34 GM PO (11:40)
--- NOTE | 2024-03-28 13:25 | PCM.HOSP.N ---
Hospitalist Note Patient was seen and examined today, he continues to complain of abdominal pain, he was seen by general surgery who has ordered soapsuds enema and MiraLAX in an attempt to clear the patient's stool. Patient is also on isolation due to a left upper lobe cavitary mass, this may very well be an undiagnosed carcinoma rather than TB, I have written for a pulmonary medicine to see the patient in consultation, patient does have a sigmoid mass that needs workup, general surgery will continue to work the patient up.
[2024-03-28] MEDS: Piperacil/Tazobactam 3.375 GM in 0.9% Normal Saline (50mL MB+) 50 ML IV ×2 (15:14→21:35)
[2024-03-28] MEDS: Vancomycin HCl 1,250 MG in 0.9% Normal Saline (250mL Bag) 250 ML 167 MG IV (15:14)
--- NOTE | 2024-03-28 15:54 | PCM.PN.BLA ---
Progress Note I saw the patient this afternoon. He is still painful. He reports that he passed a small formed bowel movement after MiraLAX and a soapsuds enema. The patient may be obstructed from this mass in his sigmoid. If he does not have any improvement by tomorrow morning I will take him for a flexible sigmoidoscopy to evaluate the sigmoid colon. Jordan Ortega MD Pager: [facility] [address] [place] [address] [address] [place] [phone] Office:
[2024-03-28] MEDS: HYDROmorphone 1 MG/ML Syringe IV (23:02)
[2024-03-29] VITALS (20 sets, daily range): BP systolic 120–178; BP diastolic 75–98; PULSE 97–118; RESP 16–247; TEMP 36.6–37.9; O2SAT 94–100; BMI 20.5
[2024-03-29] MEDS: Ipratropium/Albuterol Sulfate 3 ML AMPUL.NEB INHALATION ×4 (01:42→19:59)
[2024-03-29] MEDS: Sodium Chloride 3% 500 ML IV.SOLN. INHALATION (01:53)
[2024-03-29] MEDS: HYDROmorphone 1 MG/ML Syringe IV ×5 (03:02→22:38)
[2024-03-29] MEDS: 0.9% Saline Lock 10 ML Syringe IV ×3 (03:02→23:26)
[2024-03-29] MEDS: Vancomycin HCl 1,250 MG in 0.9% Normal Saline (250mL Bag) 250 ML 167 MG IV (03:28)
--- NOTE | 2024-03-29 05:22 | SPU_PTH ---
PATIENT: LAUREL OTERO LOC: [facility] U#:[id number] AGE/SX: 63/M ROOM: [facility] RE03/28/[address]: Dr. Neil Augustin DO : 1960 BED: 1 DIS: 04/08/2024 SPEC #: [id number] RECD: 03/29/24 12:24 STATUS: LENCHO REDaniela #: [id number] SREEDHAR: 03/29/24 05:[address]: Liz Alvarenga DEPT: CYTOLOGY RECD BY: Ann Solorio ENTERED: 03/29/24 12:25 SP TYPE: Sputum Cy OTHR DR: MD Dr. Alfonso Stanley MD Dr. David de Lorenzo, DO Dr. Mark Tereletsky, DO Dr. Robert Leininger, MD Tissues: Sputum Procedures: Pap Stain (control) Special Stain Group II Special Stain Group I AFB Stain (control) Cytospin Fluid HEADER OPERATION: Not noted PRE-OP DIAGNOSIS: Acute cystitis without hernia, pneumonia, TISSUE SUBMITTED: Sputum DIAGNOSIS CYTOLOGY Sputum for cytology (cytospins): Negative for malignant cells. See comment. 03/30/2024 COMMENT Special stain for acid fast bacilli is negative for organisms; matched controls is appropriate. Special stain for fungi shows rare organisms (yeast and pseudohyphea) consistent with Jackelin species; matched control is appropriate. Clinical correlation and appropriate follow up are necessary. CYTOLOGY STUDY Slides are reviewed. CYTOLOGY GROSS Received is 1 ml of thick ryan-bubbly mucoidy fluid labeled with the patient's name and and designated per the requisition as Sputum. Submitted for cytology preparation. 03/29/2024 TC:5 CPT: 33815,06425v3
[2024-03-29] MEDS: Piperacil/Tazobactam 3.375 GM in 0.9% Normal Saline (50mL MB+) 50 ML IV ×3 (05:59→23:15)
[2024-03-29] MEDS: Budesonide Respules 0.5 MG/2 ML AMPUL.NEB. INHALATION ×2 (07:21→19:59)
--- NOTE | 2024-03-29 07:37 | PN.SURG_ITS ---
Subjective Subjective The patient has not passed any flatus or stool. He is still having abdominal pain. Denies nausea or vomiting. Objective Data Objective Data Vital Signs: Vital Signs Temp Pulse Resp BP Pulse Ox O2 Del Method O2 Flow Rate 99.4 F H 102 H 18 120/75 98 Nasal Cannula 2 03/29/24 03:00 03/29/24 07:23 03/29/24 07:23 03/29/24 03:00 03/29/24 07:23 03/29/24 07:23 03/29/24 07:23 Oxygen Flow Rate (L/min) 2 Oxygen Delivery Method Nasal Cannula Weight: 134 lb 11.239 oz Body Mass Index (BMI) 20.5 Intake & Output: Intake and Output for Last 24 Hours 03/27/24 03/28/24 03/29/24 23:59 23:59 23:59 Intake Total 2848.75 / 2948.75 425 / 425 Output Total 725 / 1325 1000 / 1000 Balance 2123.75 / 1623.75 -575 / -575 Medical Nutrition Assessment Dietitian: Malnutrition Criteria Met Start: 03/28/24 09:58 Freq: Status: Active Protocol: Document 03/28/24 09:58 SLA (Rec: 03/28/24 09:58 SLA [id number]) Nutrition Malnutrition Evidence of Yes Malnutrition Exists Malnutrition (severe Acute Illness/Injury ): Evidenced By Suboptimal Energy Intake (Severe),Weight Loss (Severe) Clinical Problem Acute Disease or Injury Related Malnutrition Etiology related to recent jaw fx (02/28/24) and inadequate energy intake Signs/Symptoms as evidenced by po intake < 75% of est nutritional needs and unplanned wt loss of ~10% x 1 month Status Active Problem Biting/Chewing Difficulty Etiology swallowing related to recent jaw fx 02/28/24 Signs/Symptoms as evidenced by pt self report Status Active Problem Recommendation Dietitian As medically able, rec DANIELLE to liberal Regular soft and Recommendations/ bite size per pt request Changes As medically able, rec 8 oz chocolate ensure plus high protein tid w/ meals for increased nutrition if consumed. Lab / Micro Data 03/28/24 07:10 03/28/24 07:10 Labs: Laboratory Results - last 24 hr 03/28/24 07:10: WBC 23.1 H, RBC 3.79 L, Hgb 11.6 L, Hct 34.4 L, MCV 90.8, MCH 30.6, MCHC 33.7, RDW Std Deviation 40.3, RDW Coeff of Pam 12.0, Plt Count 447, MPV 7.9, Immature Gran % (Auto) 0.700, Neut % (Auto) 82.5 H, Lymph % (Auto) 5.4 L, [place] % (Auto) 7.1, Eos % (Auto) 4.0, Baso % (Auto) 0.3, Absolute Neuts (auto) 19.1 H, Absolute Lymphs (auto) 1.25, Nucleated RBC % 0, Diff Path Review June foll, Platelet Estimate SLT INC, Sodium 130 L, Potassium 4.8, Chloride 94 L, Carbon Dioxide 30.0, Anion Gap 6, BUN 15, Creatinine 0.47 L, Estim Creat Clear Calc 141.06, Est GFR (MDRD) Af Amer 231, Est GFR (MDRD) Non-Af 191, B UN/Creatinine Ratio 31.8 H, Glucose 106, Calcium 8.3 L, Phosphorus 3.0, Magnesium 2.1, Total Bilirubin 0.60, AST 15, ALT 18, Alkaline Phosphatase 76, T otal Protein 6.2 L, Albumin 2.3 L, Globulin 3.9, Albumin/Globulin Ratio 0.6 L, TSH 0.848 Micro: Microbiology 03/28/24 00:40 Stool Enteric Bacteriology - Final 03/28/24 06:00 Urine, Clean Catch Legionella Antigen - Final 03/28/24 06:00 Urine, Clean Catch Streptococcus pneumoniae Antigen (M - Final 03/28/24 01:02 Mucosa - Nose SARS-CoV-2, Influenza & RSV (PCR) - Final Physical Exam Const oriented x3 and no apparent distress Resp normal respiratory effort GI soft to palpation Palpation: tender Extremity normal to inspection Assessment & Plan Assessment/Plan (1) Colonic mass: PLAN: Yesterday I gave the patient a soapsuds enema as well as MiraLAX and he had no bowel function. Today I have consulted DrNixon Friend he is going to perform a flexible sigmoidoscopy to try to place a stent and see if a bowel prep will be possible. The patient will likely need surgery but if he is able to bowel prep with a stent in place that would likely forego the need for colostomy. Jordan Ortega MD Pager: [facility] [address] [place] [address], [address] [place] [address] Office:
[2024-03-29] MEDS: Heparin Injection (Vial) 5,000 UNIT/ML VIAL 5000 UNIT SC ×2 (08:41→23:13)
[2024-03-29] MEDS: Pantoprazole Sodium 40 MG in 0.9% Normal Saline (100mL MB+) 100 ML 330 MG IV (08:41)
[2024-03-29 11:29] LABS: Acid Fast Stain SEE PATHOLOGY REPORT; Cytology, Body Fluid / CSF SEE PATHOLOGY REPORT
--- NOTE | 2024-03-29 13:36 | CON.PCM.ID_ITS ---
Assessment & Plan Assessment/Plan (1) Cavitary lesion of lung: PLAN: Will consult pulm. Repeat sputum AFB. Colonoscopy planned. Sputum cx pending. cont vanc/zosyn. Will follow, thank you, d/w Dr. Zambrano (2) COPD (chronic obstructive pulmonary disease): HPI Consult Data Date of Consult: 03/29/24 HPI Narrative Reason for Consultation: cavitary pneumonia HPI Narrative: LAUREL OTERO, is a 63 M with COPD on home O2 at night, recent admit for pneumonia, sent home with levaquin 03/20/24. Admitted 2/2 with fatigue, cough, lower abd pain, fever at home. No blood in stool. Has lost 20-30lbs since breaking jaw a month ago. Denies aspiration. No h/o TB exposure, only foreign travel was to [place]. Admitted here, started on vanc/zosyn. Colonoscopy planned for today. Full ROS performed and neg except as noted above. [facility] Medical History Smoker On home oxygen therapy IBS (irritable bowel syndrome) Hx of colonic polyp Alcohol abuse Hemorrhoids COPD (chronic obstructive pulmonary disease) Hypertension Arthritis Home Medications ?Medication ?Instructions ?Recorded ?Last Taken ?Type epinephrine 0.3 mg/0.3 mL 0.3 mg IM ONCE PRN anaphylax is 07/07/23 Unknown History injection, auto-injector (EpiPen 2-Jesse) albuterol sulfate 90 mcg/actuation 1 puff inhalation Q 6H PRN SOB #8.5 01/16/24 02/27/24 Rx aerosol inhaler grams Disability Placard #1 ea 01/30/24 Unknown Rx losartan 100 mg tablet 100 mg PO QDAY blood pressur e 01/30/24 02/28/24 History fluticasone 500 mcg-salmeterol 50 1 inh inhalation BID respiratory 02/16/24 02/27/24 Rx mcg/dose blistr powdr for #3 ea inhalation (Advair Diskus) potassium chloride 20 mEq 20 meq PO BIDCM supplement # 20 tabs 03/02/24 Unknown Rx tablet,extended release(part/cryst) sodium chloride 1,000 mg soluble 1,000 mg PO BID suppl ement #60 tabs 03/02/24 Unknown Rx tablet thiamine HCl (vitamin B1) 100 mg 100 mg PO DAILYCM sup plement #30 03/02/24 Unknown Rx tablet tabs acetaminophen 500 mg tablet 1,000 mg PO Q8H pain 03/15 Unknown History folic acid 1 mg tablet 1 mg PO DAILY supplement Unknown History sennosides 8.6 mg-docusate sodium 2 tab PO BID PRN Con stipation 03/15/24 Unknown History 50 mg tablet (Stimulant Laxative Plus) tiotropium bromide 2.5 2 inh inhalation DAILY copd 03/15/24 Unknown History mcg/actuation mist for inhalation (Spiriva Respimat) bisacodyl 5 mg tablet 10 mg (2 x 5 mg) PO DAILY DC N 03/20/24 Unknown Rx constipation 0 days #10 tabs guaifenesin 1,200 mg tablet, 1,200 mg PO Q12H #10 tabs 03/20/24 Unknown Rx extended release 12 hr (Mucus Relief ER) levofloxacin 750 mg tablet 750 mg PO DAILY #5 tabs Unknown Rx melatonin 3 mg tablet 3 mg PO QHS PRN PRN Insomnia #0 03/20/24 Unknown Rx tabs polyethylene glycol 3350 17 17 g PO DAILY #119 grams 0 03/20/24 Unknown Rx gram/dose oral powder (Miralax) Allergy/AdvReac Type Severity Reaction Status Date / Time amlodipine (From Norvasc) Allergy Swelling Verified 03/27/24 23:58 lisinopril Allergy Pain in Verified 03/27/24 23:58 joints tamsulosin Allergy Other Verified 03/27/24 23:58 tolterodine (From Detrol) Allergy Other Verified 03/27/24 23:58 Family History Mother Arthritis Father Diabetes Heart disease Hypertension Surgical History Hx of vasectomy Hx of colonoscopy Hx of appendectomy Social History household members: spouse and children housing: house current occupational status: employed Smoking Status: Former smoker second hand exposure: Yes alcohol intake: current alcohol intake frequency: 3 or more drinks per day substance use type: does not use caffeine: Yes what type of physical activity do you participate in: none frequency: does not exercise Physical Exam Const alert, oriented x3 and no apparent distress General Appearance: cooperative HEENT normocephalic and head/scalp atraumatic Eyes PERRL and EOMs intact bilaterally Neck supple and No nodes Resp Auscultation: wheezes and diminished lung sounds Cardio regular rate and regular rhythm GI soft to palpation, non-tender and non-distended Extremity General Extremity: Negative for edema Skin no rashes or lesions noted Neuro CN's II-XII intact bilaterally Medical Records Data Medical Nutrition Assessment Dietitian: Malnutrition Criteria Met Start: 03/28/24 09:58 Freq: Status: Active Protocol: Document 03/28/24 09:58 [facility] (Rec: 03/28/24 09:58 [facility] [id number]) Nutrition Malnutrition Evidence of Yes Malnutrition Exists Malnutrition (severe Acute Illness/Injury ): Evidenced By Suboptimal Energy Intake (Severe),Weight Loss (Severe) Clinical Problem Acute Disease or Injury Related Malnutrition Etiology related to recent jaw fx (02/28/24) and inadequate energy intake Signs/Symptoms as evidenced by po intake < 75% of est nutritional needs and unplanned wt loss of ~10% x 1 month Status Active Problem Biting/Chewing Difficulty Etiology swallowing related to recent jaw fx 02/28/24 Signs/Symptoms as evidenced by pt self report Status Active Problem Recommendation Dietitian As medically able, rec DANIELLE to liberal Regular soft and Recommendations/ bite size per pt request Changes As medically able, rec 8 oz chocolate ensure plus high protein tid w/ meals for increased nutrition if consumed. Lab / Micro Data Attestation: I reviewed the patient's lab results. 03/28/24 07:10 03/28/24 07:10 Micro: Microbiology 03/28/24 00:40 Stool Enteric Bacteriology - Final
--- NOTE | 2024-03-29 13:50 | CASEMGMT ---
WHIT ROBINS chart review: Patient was admitted 03/15-03/20/24 for pneumonia and acute exacerbation of COPD. See RN CM assessment from 03/01 and readmission note from 03/16/24. Patient was discharged to home with increase in home oxygen, family support, and follow-up plans in place. Patient returned to [facility] ED on 03/28/24 for abdominal pain and SOB. Patient was admitted for Cavitary pneumonia with suspicion for TB after having Chest CT completed. WHIT CM in to discuss readmission and discharge planning. Patient states he was taking medications as prescribed and wearing his oxygen as well. Patient had just been to his PCP on . Patient denies needs or help at discharge. Will monitor for increase in home oxygen. Patient had no further questions or concerns. CM will continue to follow this patient and plan for a safe discharge.
[2024-03-29 14:17] LABS: Pathologist Review Reviewed
[2024-03-29 14:42] LABS: Vancomycin, Random Level 11.4 ug/mL (0.0-15.0)
--- NOTE | 2024-03-29 14:55 | PN_ITS ---
Subjective Subjective Patient seen and examined. He still complain of lower abdominal pain. He denies any chest pain, shortness of breath or any other symptoms. Review of systems otherwise negative. He is for flexible sigmoidoscopy today. He has remained hemodynamically stable. Objective Data Objective Data Vital Signs: Vital Signs Temp Pulse Resp BP Pulse Ox O2 Del Method O2 Flow Rate 99.2 F H 97 18 129/79 H 98 Nasal Cannula 2 03/29/24 09:00 03/29/24 12:31 03/29/24 12:31 03/29/24 09:00 03/29/24 12:57 03/29/24 09:00 03/29/24 12:57 Oxygen Flow Rate (L/min) 2 Oxygen Delivery Method Nasal Cannula Weight: 134 lb 11.239 oz Body Mass Index (BMI) 20.5 Intake & Output: Intake and Output for Last 24 Hours 03/27/24 03/28/24 03/29/24 23:59 23:59 23:59 Intake Total 2848.75 / 2948.75 1585 / 1585 Output Total 725 / 1325 1000 / 1000 Balance 2123.75 / 1623.75 585 / 585 Medical Nutrition Assessment Dietitian: Malnutrition Criteria Met Start: 03/28/24 09:58 Freq: Status: Active Protocol: Document 03/28/24 09:58 KRISHAN (Rec: 03/28/24 09:58 SLA [id number]) Nutrition Malnutrition Evidence of Yes Malnutrition Exists Malnutrition (severe Acute Illness/Injury ): Evidenced By Suboptimal Energy Intake (Severe),Weight Loss (Severe) Clinical Problem Acute Disease or Injury Related Malnutrition Etiology related to recent jaw fx (02/28/24) and inadequate energy intake Signs/Symptoms as evidenced by po intake < 75% of est nutritional needs and unplanned wt loss of ~10% x 1 month Status Active Problem Biting/Chewing Difficulty Etiology swallowing related to recent jaw fx 02/28/24 Signs/Symptoms as evidenced by pt self report Status Active Problem Recommendation Dietitian As medically able, rec DANIELLE to liberal Regular soft and Recommendations/ bite size per pt request Changes As medically able, rec 8 oz chocolate ensure plus high protein tid w/ meals for increased nutrition if consumed. Lab / Micro Data 03/28/24 07:10 03/28/24 07:10 Labs: Laboratory Results - last 24 hr 03/27/24 23:50: Diff Path Review Reviewed 03/29/24 13:38: Random Vancomycin 11.4 Micro: Microbiology 03/28/24 00:40 Stool Enteric Bacteriology - Final 03/28/24 06:00 Urine, Clean Catch Legionella Antigen - Final 03/28/24 06:00 Urine, Clean Catch Streptococcus pneumoniae Antigen (M - Final 03/28/24 01:02 Mucosa - Nose SARS-CoV-2, Influenza & RSV (PCR) - Final Physical Exam Const alert, oriented x3, no apparent distress and well nourished General Appearance: cooperative and well developed HEENT normocephalic, head/scalp atraumatic, moist oral mucous membranes and oropharynx normal Eyes PERRL and EOMs intact bilaterally Neck no lymphadenopathy and supple Lymph Lymphatic: no lymphadenopathy noted Resp Resp Narrative: diminished breath sounds bibasally, no wheezes or crackles. On 2L of oxygen. Cardio regular rate, regular rhythm, S1 normal heart sound, S2 normal heart sound and no murmurs GI normal to inspection, nondistended, normoactive bowel sounds and soft to palpation GI Narrative: mild left lower quadrant tenderness, no guarding or rebound tenderness. Extremity normal capillary refill, no clubbing, cyanosis or edema and no calf tenderness General Extremity: no tenderness to palpation of joints or extremities Skin General Skin Exam: no breakdown Neuro CN's II-XII intact bilaterally, no focal motor deficits and no sensory deficits noted Motor Exam: strength 5/5 throughout and general weakness Psych thought process normal and cooperative Appearance: appropriate Assessment & Plan Assessment/Plan (1) Generalized weakness: (2) Acute cystitis: QUALIFIERS: Hematuria presence: without hematuria Qualified Code(s): N30.00 - Acute cystitis without hematuria PLAN: Plan #Left upper lobe cavitary opacity * Patient was 2 L of oxygen chronically at home. CT of the chest done on admission for cavitary pulmonary opacity in the left upper lobe measuring about 4.8 cm suspicious for malignancy versus TB * He also had mild reticulonodular opacities in the right lung base and small groundglass nodular opacity in the left lower lobe which may be infectious or inflammatory. * Continue negative pressure room. TB screen ordered. On IV vancomycin and Zosyn. * Urine for strep and Legionella negative. Also on IV Solu-Medrol. ID consulted. * Per ID to repeat sputum AFB. * #Small blood partial bowel obstruction * Apparently the colonic mass was seen on his last CT scan but he never followed up with GI. CT of the abdomen and pelvis this time showed 3.2 cm mass in the sigmoid colon as well as thickening of the sigmoid proximal to this possibly from several colitis. * General surgery on board. Consulted gastroenterology for flexible sigmoidoscopy today for possible stent placement. * Currently NPO. IV Zofran as needed #Cystitis: Currently on IV Zosyn. Urine cultures pending. #Hyponatremia: Sodium yesterday was 130. Labs pending today. Will monitor. #Benign essential hypertension: All BP meds on hold as patient is n.p.o. IV hydralazine as needed #History of nicotine dependence: Quit a month ago. Counseled continue abstaining. Nicotine patch as needed #History of alcohol use disorder * says he is to drink about 3-6 beers daily until February 2024. * He had not taken any alcohol since then. * Not in withdrawal. * Counseled to continue abstaining. * #CHronic respiratory failure due to COPD * Currently on 2 L of oxygen which is what he wears at home. * Breathing treatments bronchodilators. Titrate oxygen to maintain saturation above 90%. * DVT prophylaxis: Heparin # Charges/Coding Visit Charges Inpatient E&M: 73488 Subs Hosp L2
--- NOTE | 2024-03-29 16:06 | PCM.RX.CS ---
Consult Antibiotic Management Pharmacy has been consulted to manage selected antibiotic: Vancomycin Type of Intervention Type of Consult: Follow-up Suspected Infection Suspected Infection: Pneumonia Labs Labs: Random Vancomycin 11.4 ug/mL (0.0-15.0) 03/29/24 13:38 Microbiology Microbiology: Microbiology 03/28/24 00:40 Stool Enteric Bacteriology - Final 03/28/24 06:00 Urine, Clean Catch Legionella Antigen - Final 03/28/24 06:00 Urine, Clean Catch Streptococcus pneumoniae Antigen (M - Final 03/28/24 01:02 Mucosa - Nose SARS-CoV-2, Influenza & RSV (PCR) - Final Pharmacy Plan for Drug Dosing Pharmacy Plan for Drug Dosing: VANCOMYCIN LEVEL RECEIVED Current Vancomycin Dose: 1250MG Q12 Number of Doses Received: 3 Vancomycin Level: 11.4 mg/dl Hours Since Last Dose: 10 Renal Function: SCr 0.47 mg/dL, CrCl 141 mL/min Renal Function Trend: improved renal function Vancomycin Plan/Comments: 10 hour trough is subtherapeutic at 11.4 mg/dL (goal 15-20). Trough was supposed to be drawn closer to 1500 but was drawn at 1338. Nursing called, okay to use since already drawn. Nursing cancelled trough lab and entered a random level, but it is a trough. However, at 10 hours the level is already low so will increase dose to 1750mg and get a level prior to the 4th dose of new regimen. Pending Level: 03/31/24 @ 0330 Pharmacy Service will continue to monitor and adjust dosing as required.
[2024-03-29 16:08] LABS: Absolute Lymphocyte Count 0.77 X10^3/uL (0.83-4.51); Absolute Neutrophil Count 10.7 X10^3/uL (2.0-7.7); Basophil# 0.05 X10^3/uL; Basophil% 0.4 % (0-1); Eosinophil# 0.02 X10^3/uL; Eosinophils% 0.2 % (0-5); Hematocrit 32.8 % (40-54); Hemoglobin 10.8 g/dL (13.0-16.5); Lymphocyte # 0.77 X10^3/ul (0.83-4.51); Lymphocyte % 5.9 % (19-41); Mean Corp Hgb Conc 32.9 g/dL (32-36); Mean Corpuscular Hgb 30.1 pg (27.0-32.0); Mean Corpuscular Volume 91.4 fL (80-94); Mean Platelet Vol. 8.2 fl (6.2-12.0); Monocyte# 1.49 X10^3/uL; Monocyte% 11.4 % (0-10); NRBC Flagged by Analyzer 0 % (0-5); Neutrophil # 10.69 X10^3/uL (2.7-7.7); Neutrophil % 81.7 % (47-70); Platelet Count 471 K/mm3 (150-450); RBC Distribution Width CV 12.2 % (11.6-14.6); RBC Distribution Width SD 41.2 fl (35.1-43.9); Red Blood Count 3.59 M/mm3 (4.6-6.2); White Blood Count 13.1 K/mm3 (4.4-11.0)
[2024-03-29] MEDS: Vancomycin HCl 1,750 MG in 0.9% Normal Saline (500mL Bag) 500 ML 250 MG IV (16:20)
--- NOTE | 2024-03-29 16:43 | PCM.PRE.AN2 ---
ASA Classification* ASA Classification ASA Classification: 3 Assessment & Plan Anesthesia* Anesthesia Assessment Anesthesia Assessment: Discussed sedation and/or anesthesia options, risks, benefits, and alternatives with patient/parents/legal guardian/POA. Questions invited. The patient/parents/legal guardian/POA seems to understand and agrees to proceed with anesthesia plan. Reviewed the physical assessment, medical history, allergy history and patient home medications list prior to surgery/procedure/anesthetic and documented any changes. Performed airway and anesthesia risk assessments. Anesthesia Type Anesthesia Type: MAC Anesthesia Focused Assessment* Temperature: 99.6 F Pulse Rate: 110 Blood Pressure: 159/93 Respiratory Rate: 17 Pulse Ox: 94 Oxygen Flow Rate (L/min): 2 Airway Assessment Mouth opens: >3 cm Mallampati Score: II Focused Labs Anesthesia Preop lab: CBC WBC 13.1 K/mm3 (4.4-11.0) H 03/29/24 13:44 03/29/24 RBC 3.59 M/mm3 (4.6-6.2) L 03/29/24 13:44 03/29/24 Hgb 10.8 g/dL (13.0-16.5) L 03/29/24 13:44 03/29/24 Hct 32.8 % (40-54) L 03/29/24 13:44 03/29/24 Plt Count 471 K/mm3 (150-450) H 03/29/24 13:44 03/29/24 CHEMISTRY Potassium 4.8 mmol/L (3.5-5.1) 03/28/24 07:10 03/28/24 Sodium 130 mmol/L (136-145) L 03/28/24 07:10 03/28/24 Magnesium 2.1 mg/dL (1.6-2.6) 03/28/24 07:10 03/28/24 Phosphorus 3.0 mg/dL (2.5-4.9) 03/28/24 07:10 03/28/24 BUN 15 mg/dL (7-18) 03/28/24 07:10 03/28/24 Creatinine 0.47 mg/dL (0.70-1.30) L 03/28/24 07:10 03/28/24 Glucose 106 mg/dL (74-106) 03/28/24 07:10 03/28/24 TSH 0.848 uIU/mL (0.358-3.740) 03/28/24 07:10 03/28/24 COAG PT 13.2 SECONDS (11.7-14.9) 03/15/24 09:57 03/15/24 Pre-Assessment Diagnosis/Proposed Procedure Planned Operative Procedure(s): Flex Sigmoidoscopy Anesthesia History Anesthesia History - paunch trimmer: Anesthesia History - paunch trimmer Hx Hospitalization Any Problems With Anesthesia Cholinesterase deficiency You/Your Family Experience fever (hyperthermia) with Relationship Recent Exposure to Contagious Disease Does patient have nerve stimulator Patient instructed to have device shut off --Does patient have Pacemaker or ICD? When Was Last Pacemaker Check QUESTION #4 FULL TEXT: You/Your Family Experience fever (hyperthermia) with Anesthesia Last Oral Intake Last Oral intake: Last Oral Intake NPO since Meds taken in AM with sips of water? Meds patient instructed to take am of surgery PONV PONV - paunch trimmer: PONV - paunch trimmer Female HX of Motion Sickness HX of N/V After Surgery Non-Smoker Duration of Surgery greater than 60 minutes Number of Risk Factors PONV Score Height & Weight Height & Weight: Anesthesia: Height & Weight Height 5 ft 8 in 03/28/24 09:48 Weight: 61.1 kg 03/29/24 05:11 Body Mass Index (BMI) 20.5 03/29/24 05:11 Respiratory Assessment Respiratory Assessment - paunch trimmer: Respiratory Tract Infection Hx - paunch trimmer Hx Respiratory Tract Infection STOP Sleep Apnea STOP Sleep Apnea - paunch trimmer: STOP Sleep Apnea - paunch trimmer Hx Hypertension Yes 03/29/24 14:02 Hx Sleep Apnea No 03/28/24 04:57 CPAP BIPAP Do you snore loudly (louder No 03/28/24 04:57 than talking or can be heard Do you often feel tired/ No 03/28/24 04:57 fatigued/ sleepy during daytime? Has anyone observed you stop No 03/28/24 04:57 breathing during sleep? STOP Results Negative 03/28/24 04:57 QUESTION #5 FULL TEXT : Do you snore loudly (louder than talking or can be heard through closed doors)? Tobacco Use History Tobacco Use History - paunch trimmer: Tobacco Use History - paunch trimmer Tobacco Use Cigarettes 03/22/24 11:24 Smoking Status Former smoker 03/28/24 09:07 Hx Tobacco Use Yes 03/28/24 04:57 Years Smoking Packs Smoked per Day Smoking Cessation Date was Yes - quit smoking within 15 03/28/24 04:57 within the last 15 years years Hx Smoking Cessation Date 02/28/24 03/28/24 04:57 Hx Smoking Cessation Counseling Hematologic Medial History Hematologic Hx - paunch trimmer: Hematologic Medical Hx - laboratory courier Hx of Blood Transfusion No 03/28/24 04:57 Hx of Transfusion in last 3 No 03/28/24 04:57 Months Date of Last Transfusion (if within last 3 months) Ever experience any problems No 03/28/24 04:57 with transfusion(s)? Specify any problems Hx of Preganancy in last 3 N/A 03/28/24 04:57 Months Nurse Filling Out Transfusion RSMAILES 03/28/24 04:57 & Questions: Date: 03/28/24 03/28/24 04:57 Time: 05:53 03/28/24 04:57 Patient unable to answer at Yes 03/28/24 04:57 this time (ie. confused, unrespo /Reproduction History /Reproductive History - paunch trimmer: /Reproductive Hx- paunch trimmer Hx Now Gestational Age (in weeks): EDC: Hx Hx Para Hx Section SAB Active Medications Active Medications: Current Medications Generic Name Dose Route Start Last Admin Trade Name Freq PRN Reason Stop Dose Admin Albuterol Sulfate 2.5 mg 03/28/24 17:47 Albuterol 2.5 Mg/3 Ml Vial.Neb. INHALATION Q2H PRN PRN WHEEZING Albuterol/Ipratropium 3 ml 03/28/24 06:00 03/29/24 12:30 Ipratropium/Albuterol Sulfate 3 Ml Ampul.Neb INHALATION 3 ml Q6HWA.RT NEHEMIAS Administration Budesonide 0.5 mg 03/28/24 06:00 03/29/24 07:21 Budesonide Respules 0.5 Mg/2 Ml Ampul.Neb. INHALATION 0.5 mg Q12H.RT NEHEMIAS Administration Heparin Sodium (Porcine) 5,000 unit 03/28/24 10:00 03/29/24 08:41 Heparin Injection (Vial) 5,000 Unit/Ml Vial SC 5,000 unit Q12 NEHEMIAS Administration Hydralazine HCl 5 mg 03/28/24 05:03 Hydralazine 20 Mg/Ml Vial IV Q8H PRN PRN SBP GREATER THAN 160 Protocol Hydromorphone HCl 1 mg 03/28/24 22:45 03/29/24 16:06 Hydromorphone 1 Mg/Ml Syringe IV 1 mg Q4H PRN PRN Administration Pain Score 6-10 Sodium Chloride 100 mls @ 15 mls/hr 03/28/24 05:00 IV .Q6H40M PRN Saline Flush Sodium Chloride 100 mls @ 15 mls/hr 03/28/24 05:00 IV .Q6H40M PRN Additional IVPB Infusion Piperacillin Sod/Tazobactam 50 mls @ 12.5 mls/hr 03/28/24 14:00 03/29/24 14:56 Sod 3.375 gm/ Sodium Chloride IV 12.5 mls/hr Q8 NEHEMIAS Administration Vancomycin IV-PHARMACY TO DOSE 500 mls @ 250 mls/hr 03/28/24 05:03 1 each/ Sodium Chloride IV PRN PRN Rx to Dose Protocol Pantoprazole Sodium 40 mg/ 110 mls @ 330 mls/hr 03/28/24 10:00 03/29/24 09:01 Sodium Chloride IV Infused DAILY NEHEMIAS Infusion Vancomycin HCl 1,750 mg/ 535 mls @ 250 mls/hr 03/29/24 16:00 03/29/24 16:20 Sodium Chloride IV 250 mls/hr Q12H NEHEMIAS Administration Nicotine 14 mg 03/28/24 10:00 03/29/24 08:41 Nicotine 14 Mg Patch TD 14 mg DAILY NEHEMIAS Administration Ondansetron HCl 4 mg 03/28/24 05:03 Ondansetron 4 Mg/2 Ml Vial IV Q8H PRN PRN NAUSEA/VOMITING Promethazine HCl 25 mg 03/28/24 05:03 Promethazine 25 Mg/Ml Syringe IM Q6H PRN PRN Breakthrough Nausea/Vomiting Sodium Chloride 10 - 40 ml 03/28/24 05:00 03/29/24 16:06 0.9% Saline Lock 10 Ml Syringe IV 10 ml UD PRN Administration SALINE FLUSH Sodium Chloride 3 ml 03/28/24 12:00 03/29/24 01:53 Sodium Chloride 3% 500 Ml Iv.Soln. INHALATION 03/30/24 12:01 3 ml Q8H.RT NEHEMIAS Administration Vancomycin Protocol 1 lab 03/31/24 01:30 Vancomycin Trough/Random Due MC 03/31/24 05:30 DAILY NEHEMIAS PFSH Medical History Smoker On home oxygen therapy IBS (irritable bowel syndrome) Hx of colonic polyp Alcohol abuse Hemorrhoids COPD (chronic obstructive pulmonary disease) Hypertension Arthritis Home Medications ?Medication ?Instructions ?Recorded ?Last Taken ?Type epinephrine 0.3 mg/0.3 mL 0.3 mg IM ONCE PRN anaphylaxis 07/07/23 Unknown History injection, auto-injector (EpiPen 2-Jesse) albuterol sulfate 90 mcg/actuation 1 puff inhalation Q6H PRN SOB #8.5 01/16/24 02/27/24 Rx aerosol inhaler grams Disability Placard #1 ea 01/30/24 Unknown Rx losartan 100 mg tablet 100 mg PO QDAY blood pressure 01/30/24 02/28/24 History fluticasone 500 mcg-salmeterol 50 1 inh inhalation BID respiratory 02/16/24 02/27/24 Rx mcg/dose blistr powdr for #3 ea inhalation (Advair Diskus) potassium chloride 20 mEq 20 meq PO BIDCM supplement #20 tabs 03/02/24 Unknown Rx tablet,extended release(part/cryst) sodium chloride 1,000 mg soluble 1,000 mg PO BID supplement #60 tabs 03/02/24 Unknown Rx tablet thiamine HCl (vitamin B1) 100 mg 100 mg PO DAILYCM supplement #30 03/02/24 Unknown Rx tablet tabs acetaminophen 500 mg tablet 1,000 mg PO Q8H pain 03/15/24 Unknown History folic acid 1 mg tablet 1 mg PO DAILY supplement 03/15/24 Unknown History sennosides 8.6 mg-docusate sodium 2 tab PO BID PRN Constipation 03/15/24 Unknown History 50 mg tablet (Stimulant Laxative Plus) tiotropium bromide 2.5 2 inh inhalation DAILY copd 03/15/24 Unknown History mcg/actuation mist for inhalation (Spiriva Respimat) bisacodyl 5 mg tablet 10 mg (2 x 5 mg) PO DAILY PRN 03/20/24 Unknown Rx constipation 0 days #10 tabs guaifenesin 1,200 mg tablet, 1,200 mg PO Q12H #10 tabs 03/20/24 Unknown Rx extended release 12 hr (Mucus Relief ER) levofloxacin 750 mg tablet 750 mg PO DAILY #5 tabs 03/20/24 Unknown Rx melatonin 3 mg tablet 3 mg PO QHS PRN PRN Insomnia #0 03/20/24 Unknown Rx tabs polyethylene glycol 3350 17 17 g PO DAILY #119 grams 03/20/24 Unknown Rx gram/dose oral powder (Miralax) Allergy/AdvReac Type Severity Reaction Status Date / Time amlodipine (From Norvasc) Allergy Swelling Verified 03/27/24 23:58 lisinopril Allergy Pain in Verified 03/27/24 23:58 joints tamsulosin Allergy Other Verified 03/27/24 23:58 tolterodine (From Detrol) Allergy Other Verified 03/27/24 23:58 Family History Mother Arthritis Father Diabetes Heart disease Hypertension Surgical History Hx of vasectomy Hx of colonoscopy Hx of appendectomy Social History household members: spouse and children housing: house current occupational status: employed Smoking Status: Former smoker second hand exposure: Yes alcohol intake: current alcohol intake frequency: 3 or more drinks per day substance use type: does not use caffeine: Yes what type of physical activity do you participate in: none frequency: does not exercise Review of Systems (Anesthesia) ROS Narrative System reviewed and no additional complaints, except as documented.
[2024-03-29 16:47] LABS: Anion Gap 8 (5-15); BUN 9 mg/dL (7-18); BUN/Creat Ratio 16.3 RATIO (10-20); Calcium,Total 8.5 mg/dL (8.5-10.1); Chloride 94 mmol/L (98-107); Creatinine, Serum 0.55 mg/dL (0.70-1.30); EST Glomerular Filtration Rate 160 mL/min (>60); Est Glom Filt Rate - Afr Amer 193 mL/min (>60); Estimated Creatinine Clearance 120.35 ml/min; Glucose 100 mg/dL (74-106); Potassium 3.9 mmol/L (3.5-5.1); Sodium Level 130 mmol/L (136-145)
--- NOTE | 2024-03-29 17:17 | EX.PCM.CON.G ---
HPI Consult Data Date of Consult: 03/29/24 HPI Narrative Reason for Consultation: Large bowel obstruction HPI Narrative: Mr. Ortiz reports the abrupt-onset of severe abdominal pain on the evening of March 27, 2024. He describes the pain as generalized, cramping, severe and not made better or worse by anything. He denies related fever, chills, nausea, vomiting, diarrhea and he states he has been having normal bowel movements. He states he finished his Levaquin yesterday to complete a 7-day course as prescribed with increasing productive cough and subjective fevers with urinary frequency in addition to decreased appetite due to his recent traumatic jaw fracture after a syncopal event. He denies associated chills, chest pain, runny nose, sore throat, lower extremity edema, dysuria, back pain, rash, wounds or headache. In the ER he was noted to have CT evidence of cavitary pulmonary opacity in the Left upper lobe measuring ~4.8 cm suspicious for malignancy versus TB along with mild reticulonodular opacities in the Right lung base and small ground-glass nodular density in the Left lower lobe which may be an infectious or inflammatory in addition to diffuse urinary bladder wall thickening with recommendation to correlate for cystitis and significant retained stool within the proximal rectum with wall thickening and mild perirectal stranding as well as rectal distention can relate to Stercoral Colitis. [facility] Medical History Smoker On home oxygen therapy IBS (irritable bowel syndrome) Hx of colonic polyp Alcohol abuse Hemorrhoids COPD (chronic obstructive pulmonary disease) Hypertension Arthritis Home Medications ?Medication ?Instructions ?Recorded ?Last Taken ?Type epinephrine 0.3 mg/0.3 mL 0.3 mg IM ONCE PRN anaphylaxis 07/07/23 Unknown History injection, auto-injector (EpiPen 2-Jesse) albuterol sulfate 90 mcg/actuation 1 puff inhalation Q6H PRN SOB #8.5 01/16/24 02/27/24 Rx aerosol inhaler grams Disability Placard #1 ea 01/30/24 Unknown Rx losartan 100 mg tablet 100 mg PO QDAY blood pressure 01/30/24 02/28/24 History fluticasone 500 mcg-salmeterol 50 1 inh inhalation BID respiratory 02/16/24 02/27/24 Rx mcg/dose blistr powdr for #3 ea inhalation (Advair Diskus) potassium chloride 20 mEq 20 meq PO BIDCM supplement #20 tabs 03/02/24 Unknown Rx tablet,extended release(part/cryst) sodium chloride 1,000 mg soluble 1,000 mg PO BID supplement #60 tabs 03/02/24 Unknown Rx tablet thiamine HCl (vitamin B1) 100 mg 100 mg PO DAILYCM supplement #30 03/02/24 Unknown Rx tablet tabs acetaminophen 500 mg tablet 1,000 mg PO Q8H pain 03/15/24 Unknown History folic acid 1 mg tablet 1 mg PO DAILY supplement 03/15/24 Unknown History sennosides 8.6 mg-docusate sodium 2 tab PO BID PRN Constipation 03/15/24 Unknown History 50 mg tablet (Stimulant Laxative Plus) tiotropium bromide 2.5 2 inh inhalation DAILY copd 03/15/24 Unknown History mcg/actuation mist for inhalation (Spiriva Respimat) bisacodyl 5 mg tablet 10 mg (2 x 5 mg) PO DAILY PRN 03/20/24 Unknown Rx constipation 0 days #10 tabs guaifenesin 1,200 mg tablet, 1,200 mg PO Q12H #10 tabs 03/20/24 Unknown Rx extended release 12 hr (Mucus Relief ER) levofloxacin 750 mg tablet 750 mg PO DAILY #5 tabs 03/20/24 Unknown Rx melatonin 3 mg tablet 3 mg PO QHS PRN PRN Insomnia #0 03/20/24 Unknown Rx tabs polyethylene glycol 3350 17 17 g PO DAILY #119 grams 03/20/24 Unknown Rx gram/dose oral powder (Miralax) Allergy/AdvReac Type Severity Reaction Status Date / Time amlodipine (From Norvasc) Allergy Swelling Verified 03/27/24 23:58 lisinopril Allergy Pain in Verified 03/27/24 23:58 joints tamsulosin Allergy Other Verified 03/27/24 23:58 tolterodine (From Detrol) Allergy Other Verified 03/27/24 23:58 Family History Mother Arthritis Father Diabetes Heart disease Hypertension Surgical History Hx of vasectomy Hx of colonoscopy Hx of appendectomy Social History household members: spouse and children housing: house current occupational status: employed Smoking Status: Former smoker second hand exposure: Yes alcohol intake: current alcohol intake frequency: 3 or more drinks per day substance use type: does not use caffeine: Yes what type of physical activity do you participate in: none frequency: does not exercise ROS Constitutional Constitutional: Denies fatigue, fever(s), poor appetite, weight gain or weight loss Gastrointestinal Gastrointestinal: Denies belching, bloating, change in bowel habits, change in stool character, chewing difficulty, coffee ground emesis, constipation, cramping, diarrhea, dyspepsia, dysphagia, early satiety, excessive flatus, fecal incontinence, heartburn, hematemesis, hematochezia, hemorrhoids, loose stools, melena, nausea, odynophagia, rectal bleeding, tenesmus, vomiting or weight changes Physical Exam Const alert, oriented x3, no apparent distress and healthy appearing General Appearance: cooperative GI normal to inspection, nondistended, normoactive bowel sounds, soft to palpation, non-tender and non-distended Percussion: normal to percussion Rectal Exam: deferred Medical Records Data Medical Nutrition Assessment Dietitian: Malnutrition Criteria Met Start: 03/28/24 09:58 Freq: Status: Active Protocol: Document 03/28/24 09:58 [facility] (Rec: 03/28/24 09:58 [facility] [id number]) Nutrition Malnutrition Evidence of Yes Malnutrition Exists Malnutrition (severe Acute Illness/Injury ): Evidenced By Suboptimal Energy Intake (Severe),Weight Loss (Severe) Clinical Problem Acute Disease or Injury Related Malnutrition Etiology related to recent jaw fx (02/28/24) and inadequate energy intake Signs/Symptoms as evidenced by po intake < 75% of est nutritional needs and unplanned wt loss of ~10% x 1 month Status Active Problem Biting/Chewing Difficulty Etiology swallowing related to recent jaw fx 02/28/24 Signs/Symptoms as evidenced by pt self report Status Active Problem Recommendation Dietitian As medically able, rec DANIELLE to liberal Regular soft and Recommendations/ bite size per pt request Changes As medically able, rec 8 oz chocolate ensure plus high protein tid w/ meals for increased nutrition if consumed. Lab / Micro Data 03/29/24 13:44 03/29/24 13:44 Labs: Laboratory Results - last 24 hr 03/27/24 23:50: Diff Path Review Reviewed 03/29/24 13:38: Random Vancomycin 11.4 03/29/24 13:44: WBC 13.1 H, RBC 3.59 L, Hgb 10.8 L, Hct 32.8 L, MCV 91.4, MCH 30.1, MCHC 32.9, RDW Std Deviation 41.2, RDW Coeff of Pam 12.2, Plt Count 471 H, MPV 8.2, Immature Gran % (Auto) 0.400, Neut % (Auto) 81.7 H, Lymph % (Auto) 5.9 L, [place] % (Auto) 11.4 H, Eos % (Auto) 0.2, Baso % (Auto) 0.4, Absolute Neuts (auto) 10.7 H, Absolute Lymphs (auto) 0.77 L, Nucleated RBC % 0, Sodium 130 L, Potassium 3.9, Chloride 94 L, Carbon Dioxide 28.0, Anion Gap 8, BUN 9, Creatinine 0.55 L, Estim Creat Clear Calc 120.35, Est GFR (MDRD) Af Amer 193, Est GFR (MDRD) Non-Af 160, BUN/Creatinine Ratio 16.3, Glucose 100, Calcium 8.5 Assessment & Plan Assessment/Plan (1) Generalized weakness: (2) Acute cystitis: QUALIFIERS: Hematuria presence: without hematuria Qualified Code(s): N30.00 - Acute cystitis without hematuria PLAN: Plan 63-year-old gentleman with colonic mass was seen on his last CT scan but he never followed up with GI. CT of the abdomen and pelvis this time showed 3.2 cm mass in the sigmoid colon as well as thickening of the sigmoid proximal to this possibly from several colitis. Patient will undergo an attempted decompressive colonoscopy. He was explained alternatives, risk and benefits include not withstanding bleeding, infection, sepsis, perforation, need for return to . He will have an ASA of 3. Charges/Coding Visit Charges Inpatient E&M: 47137 Init Hosp L3
--- NOTE | 2024-03-29 18:20 | OP.CCLET_ITS ---
03/29/2024 [facility] Fortune [address] [place] [address] Re : Flexible Sigmoidoscopy procedure for Aiden Ortiz Dear Dr. Fortune This procedure was performed on Friday, March 29, 2024. My impressions and recommendations are as follows: Impressions : - Stool in the entire examined colon. - Diverticulosis in the recto-sigmoid colon and in the sigmoid colon. - The examination was otherwise normal. - No specimens collected. Recommendations : My findings are described in the full procedure note, which is enclosed. If I can be of further assistance, please feel free to contact me at . Sincerely, Walt Turner, 03/29/2024 6:19:47 PM This report has been signed electronically.
--- NOTE | 2024-03-29 18:20 | OP.FLEXSIG_ITS ---
Patient Name: Aiden Ortiz Procedure Date: 03/29/2024 5:32 PM Date of : 1960 Age: 63 Procedure: Flexible Sigmoidoscopy Indications: Generalized abdominal pain, Abnormal CT of the GI tract Providers: Walt Turner DO Medicines: Monitored Anesthesia Care Patient Profile: This is a 63 year old male. Refer to note in patient chart for documentation of history and physical. Last Colonoscopy: date unknown. Unable to locate last colonoscopy report. Complications: No immediate complications. Procedure: Pre-Anesthesia Assessment: - Prior to the procedure, a History and Physical was performed, and patient medications and allergies were reviewed. The patient is competent. The risks and benefits of the procedure and the sedation options and risks were discussed with the patient. All questions were answered and informed consent was obtained. Patient identification and proposed procedure were verified by the physician in the pre-procedure area. Mental Status Examination: alert and oriented. Airway Examination: normal oropharyngeal airway and neck mobility. Respiratory Examination: clear to auscultation. CV Examination: normal. Prophylactic Antibiotics: The patient does not require prophylactic antibiotics. Prior Anticoagulants: The patient has taken no anticoagulant or antiplatelet agents except for NSAID medication. ASA Grade Assessment: II - A patient with mild systemic disease. After reviewing the risks and benefits, the patient was deemed in satisfactory condition to undergo the procedure. The anesthesia plan was to use monitored anesthesia care (MAC). Immediately prior to administration of medications, the patient was re-assessed for adequacy to receive sedatives. The heart rate, respiratory rate, oxygen saturations, blood pressure, adequacy of pulmonary ventilation, and response to care were monitored throughout the procedure. The physical status of the patient was re-assessed after the procedure. After obtaining informed consent, the endoscope was passed under direct vision. Throughout the procedure, the patient's blood pressure, pulse, and oxygen saturations were monitored continuously. The Colonoscope was introduced through the anus and advanced to the splenic flexure. The flexible sigmoidoscopy was accomplished without difficulty. The patient tolerated the procedure well. No bowel preparation was given prior to the procedure. The quality of visualization was adequate. Scope In: 6:07:08 PM Scope Out: 6:15:05 PM Total Procedure Duration Time 0 hours 7 minutes 57 seconds Findings: The perianal and digital rectal examinations were normal. Extensive amounts of stool was found in the entire colon. Lavage of the area was performed using greater than 500 mL of sterile water, resulting in clearance with adequate visualization. Multiple large-mouthed diverticula were found in the recto-sigmoid colon and sigmoid colon. The exam was otherwise without abnormality. Impression: - Stool in the entire examined colon. - Diverticulosis in the recto-sigmoid colon and in the sigmoid colon. - The examination was otherwise normal. - No specimens collected. Procedure Code(s): --- Professional --- 30598, Sigmoidoscopy, flexible; diagnostic, including collection of specimen(s) by brushing or washing, when performed (separate procedure) CPT copyright 2021 [employer]. All rights reserved. The codes documented in this report are preliminary and upon lens generating machine tender review may be revised to meet current compliance requirements. Walt Turner DO 03/29/2024 6:19:47 PM This report has been signed electronically. Number of Addenda: 0 Note Initiated On: 03/29/2024 5:32 PM
--- NOTE | 2024-03-29 18:27 | PCM.POST.ANE ---
Anesthesia: Postop Eval I Current Vital Signs Temperature: 98 F Pulse Rate: 107 Blood Pressure: 123/86 Respiratory Rate: 16 Pulse Ox: 100 Oxygen Delivery Method: Nasal Cannula Oxygen Flow Rate (L/min): 4 Assessment Airway patent: Yes Spontaneous unlabored respirations: Yes Mental status: Awake nausea: No Vomiting: No Anesthesia Complication: No Fluid Hydration Crystalloid volume administer (ml): 100 Total IV fluid infused: 100 Progress Note Anesthesia document: Postop Eval 1 completed: Yes
--- NOTE | 2024-03-29 18:29 | PCM.POSTANE2 ---
Anesthesia Postop Eval I Sum Postop Eval Completion status Anesthesia document: Postop Eval 1 completed: Yes Anesthesia Postop Eval I Summary Anesthesia Postop Eval I Summary: Anesthesia Postop Eval I: Assessment Summary Airway patent Yes 03/29/24 18:29 Spontaneous unlabored Yes 03/29/24 18:29 respirations Mental status Awake 03/29/24 18:29 nausea No 03/29/24 18:29 Vomiting No 03/29/24 18:29 Anesthesia Postop Eval I: Fluid Summary Crystalloid volume administer 100 03/29/24 18:29 (ml) Colloids volume administered ( ml) Blood Product volume administered (ml) Total IV fluid infused 100 03/29/24 18:29 Anesthesia Postop Eval I: Summary Notes Anesthesia Complication No 03/29/24 18:29 Anesthesia Complication Comment: Post-operative progress note Anesthesia: Postop Eval II Evaluation Mental status: Awake Pain Level: 0 nausea: No Vomiting: No
[2024-03-29] MEDS: hydrALAZINE 20 MG/ML Vial 5 MG IV (23:19)
[2024-03-30] VITALS (12 sets, daily range): BP systolic 130–182; BP diastolic 89–100; PULSE 98–118; RESP 17–24; TEMP 36.6–37.1; O2SAT 90–99; BMI 21.7
[2024-03-30] MEDS: Ipratropium/Albuterol Sulfate 3 ML AMPUL.NEB INHALATION ×4 (01:08→20:58)
[2024-03-30] MEDS: HYDROmorphone 1 MG/ML Syringe IV ×5 (02:49→20:28)
[2024-03-30] MEDS: 0.9% Saline Lock 10 ML Syringe IV ×8 (02:50→20:28)
--- NOTE | 2024-03-30 03:32 | PCM.HOSP.N ---
Hospitalist Note Patient with breakthrough pain, will add oral low dose oxycodone in addition to his dilaudid.
[2024-03-30] MEDS: Vancomycin HCl 1,750 MG in 0.9% Normal Saline (500mL Bag) 500 ML 250 MG IV ×2 (03:51→15:25)
[2024-03-30] MEDS: Budesonide Respules 0.5 MG/2 ML AMPUL.NEB. INHALATION ×2 (06:02→20:58)
[2024-03-30] MEDS: Piperacil/Tazobactam 3.375 GM in 0.9% Normal Saline (50mL MB+) 50 ML IV (06:47)
[2024-03-30 07:13] LABS: Absolute Lymphocyte Count 0.99 X10^3/uL (0.83-4.51); Absolute Neutrophil Count 7.3 X10^3/uL (2.0-7.7); Basophil# 0.04 X10^3/uL; Basophil% 0.4 % (0-1); Eosinophil# 0.02 X10^3/uL; Eosinophils% 0.2 % (0-5); Hematocrit 30.5 % (40-54); Hemoglobin 10.2 g/dL (13.0-16.5); Lymphocyte # 0.99 X10^3/ul (0.83-4.51); Lymphocyte % 10.3 % (19-41); Mean Corp Hgb Conc 33.4 g/dL (32-36); Mean Corpuscular Hgb 30.5 pg (27.0-32.0); Mean Corpuscular Volume 91.3 fL (80-94); Monocyte# 1.15 X10^3/uL; NRBC Flagged by Analyzer 0 % (0-5); Neutrophil # 7.32 X10^3/uL (2.7-7.7); Neutrophil % 76.6 % (47-70); Platelet Count 428 K/mm3 (150-450); RBC Distribution Width CV 12.2 % (11.6-14.6); Red Blood Count 3.34 M/mm3 (4.6-6.2); White Blood Count 9.6 K/mm3 (4.4-11.0)
[2024-03-30 07:48] LABS: Anion Gap 8 (5-15); BUN 8 mg/dL (7-18); BUN/Creat Ratio 16.9 RATIO (10-20); Calcium,Total 8.5 mg/dL (8.5-10.1); Chloride 94 mmol/L (98-107); Creatinine, Serum 0.47 mg/dL (0.70-1.30); EST Glomerular Filtration Rate 190 mL/min (>60); Est Glom Filt Rate - Afr Amer 230 mL/min (>60); Estimated Creatinine Clearance 149.59 ml/min; Glucose 122 mg/dL (74-106); Potassium 3.7 mmol/L (3.5-5.1); Sodium Level 129 mmol/L (136-145)
--- NOTE | 2024-03-30 08:02 | PN.SURG_ITS ---
Subjective Subjective Patient had a colonoscopy yesterday which did not show any obstruction. The colonoscope reached all the way to the splenic flexure with no obstruction or mass lesion noted. The patient was lavaged with 500 cc of fluid. The patient had another enema after the colonoscopy and he reports no bowel movements. He is still having some suprapubic pain. His pain is not severe. Objective Data Objective Data Vital Signs: Vital Signs Temp Pulse Resp BP Pulse Ox O2 Del Method O2 Flow Rate 97.8 F 101 H 20 H 154/89 H 97 Nasal Cannula 3 03/30/24 05:19 03/30/24 06:04 03/30/24 06:04 03/30/24 05:19 03/30/24 05:19 03/30/24 05:19 03/30/24 05:19 Oxygen Flow Rate (L/min) 3 Oxygen Delivery Method Nasal Cannula Weight: 143 lb 1.28 oz Body Mass Index (BMI) 21.7 Intake & Output: Intake and Output for Last 24 Hours 03/28/24 03/29/24 03/30/24 23:59 23:59 23:59 Intake Total 2848.75 / 2948.75 2170 / 2170 585 / 585 Output Total 725 / 1325 1000 / 1600 1150 / 1150 Balance 2123.75 / 1623.75 1170 / 570 -565 / -565 Medical Nutrition Assessment Dietitian: Malnutrition Criteria Met Start: 03/28/24 09:58 Freq: Status: Active Protocol: Document 03/28/24 09:58 [facility] (Rec: 03/28/24 09:58 [facility] [id number]) Nutrition Malnutrition Evidence of Yes Malnutrition Exists Malnutrition (severe Acute Illness/Injury ): Evidenced By Suboptimal Energy Intake (Severe),Weight Loss (Severe) Clinical Problem Acute Disease or Injury Related Malnutrition Etiology related to recent jaw fx (02/28/24) and inadequate energy intake Signs/Symptoms as evidenced by po intake < 75% of est nutritional needs and unplanned wt loss of ~10% x 1 month Status Active Problem Biting/Chewing Difficulty Etiology swallowing related to recent jaw fx 02/28/24 Signs/Symptoms as evidenced by pt self report Status Active Problem Recommendation Dietitian As medically able, rec DANIELLE to liberal Regular soft and Recommendations/ bite size per pt request Changes As medically able, rec 8 oz chocolate ensure plus high protein tid w/ meals for increased nutrition if consumed. Lab / Micro Data 03/30/24 06:40 03/30/24 06:40 Labs: Laboratory Results - last 24 hr 03/27/24 23:50: Diff Path Review Reviewed 03/29/24 13:38: Random Vancomycin 11.4 03/29/24 13:44: WBC 13.1 H, RBC 3.59 L, Hgb 10.8 L, Hct 32.8 L, MCV 91.4, MCH 30.1, MCHC 32.9, RDW Std Deviation 41.2, RDW Coeff of Pam 12.2, Plt Count 471 H, MPV 8.2, Immature Gran % (Auto) 0.400, Neut % (Auto) 81.7 H, Lymph % (Auto) 5.9 L, [place] % (Auto) 11.4 H, Eos % (Auto) 0.2, Baso % (Auto) 0.4, Absolute Neuts (auto) 10.7 H, Absolute Lymphs (auto) 0.77 L, Nucleated RBC % 0, Sodium 130 L, Potassium 3.9, Chloride 94 L, Carbon Dioxide 28.0, Anion Gap 8, BUN 9, C reatinine 0.55 L, Estim Creat Clear Calc 120.35, Est GFR (MDRD) Af Amer 193, Est GFR (MDRD) Non-Af 160, BUN/Creatinine Ratio 16.3, Glucose 100, Calcium 8.5 03/30/24 06:40: WBC 9.6, RBC 3.34 L, Hgb 10.2 L, Hct 30.5 L, MCV 91.3, MCH 30.5, MCHC 33.4, RDW Std Deviation 41.0, RDW Coeff of Pam 12.2, Plt Count 428, MPV 8.0, Immature Gran % (Auto) 0.500, Neut % (Auto) 76.6 H, Lymph % (Auto) 10.3 L, [place] % (Auto) 12.0 H, Eos % (Auto) 0.2, Baso % (Auto) 0.4, Absolute Neuts (auto) 7.3, Absolute Lymphs (auto) 0.99, Nucleated RBC % 0, Sodium 129 L, Potassium 3.7, Chloride 94 L, Carbon Dioxide 27.0, Anion Gap 8, BUN 8, Creatinine 0.47 L, Estim Creat Clear Calc 149.59, Est GFR (MDRD) Af Amer 230, Est GFR (MDRD) Non-Af 190, BUN/Creatinine Ratio 16.9, Glucose 122 H, Calcium 8.5 Micro: Microbiology 03/28/24 01:04 Blood Culture (Wb) - Anticubital Right Blood Culture - Preliminary No growth in 48 hours. 03/28/24 01:00 Blood Culture (Wb) - Anticubital Left Blood Culture - Preliminary No growth in 48 hours. 03/28/24 00:40 Stool Enteric Bacteriology - Final 03/28/24 06:00 Urine, Clean Catch Legionella Antigen - Final 03/28/24 06:00 Urine, Clean Catch Streptococcus pneumoniae Antigen (M - Final 03/28/24 01:02 Mucosa - Nose SARS-CoV-2, Influenza & RSV (PCR) - Final Physical Exam Const oriented x3 and no apparent distress Resp normal respiratory effort GI soft to palpation Inspection: Negative for abdominal distention Palpation: tender Assessment & Plan Assessment/Plan (1) Cavitary lesion of lung: (2) Constipation: PLAN: Plan The patient had colonoscopy yesterday and the colonoscopy did not show any obstruction or mass lesion only a lot of stool. I gave the patient a soapsuds enema again after the colonoscopy and he did not have any bowel function. He is passing some flatus but no stool. Today I will try GoLytely from above. Continue clear liquids until the patient is having bowel function. Jordan Ortega MD Pager: [facility] [address] [place] [address], [address] [place] [address] Office:
[2024-03-30] MEDS: Heparin Injection (Vial) 5,000 UNIT/ML VIAL 5000 UNIT SC (09:38)
[2024-03-30] MEDS: Pantoprazole Sodium 40 MG in 0.9% Normal Saline (100mL MB+) 100 ML 330 MG IV (09:38)
[2024-03-30] MEDS: Electrolyte Solution/Peg's 4000 ML 2000 ML PO (09:39)
--- NOTE | 2024-03-30 11:08 | PCM.PN.ID ---
Physical Exam Narrative Feeling about the same, no fever, still some cough and dyspnea. Const alert and no apparent distress General Appearance: cooperative Resp Auscultation: diminished lung sounds Cardio regular rate and regular rhythm GI soft to palpation, non-tender and non-distended Skin no rashes or lesions noted ID ID: Route of nutrition/ use of supplements: [] Nutritional Intake: [] IV Site: [] Enriquez Catheter: [] Assessment & Plan Assessment/Plan (1) Cavitary lesion of lung: PLAN: Pulm to see. Single sputum AFB pending. Sputum cx not done. Will narrow to vanc/unasyn. Will follow, d/w Dr. Zambrano (2) COPD (chronic obstructive pulmonary disease):
[2024-03-30] MEDS: Ampicillin/Sulbactam 3 GM in 0.9% Normal Saline (100mL MB+) 100 ML IV ×2 (12:33→18:14)
--- NOTE | 2024-03-30 12:57 | CHAPLAIN ---
Type of Pastoral Visit ___ Initial Visit ___ Follow-up Visit ___ On-call Visit ___ General Patient Visit ___ Spiritual Assessment ___ Family Conference ___ Bereavement ___ Rapid Response ___ Code Blue _x__ Other (describe below) Pastoral Care Referral From _x__ Patient ___ Family ___ Nurse ___ Physician ___ Mis Director ___ Stockroom Associate ___ Other (describe below) Sacrament/Intervention ___ Active listening ___ Anointing ___ Denominational ___ Bereavement ___ Communion ___ Janice exploration ___ ___ Life review ___ Prayer ___ Reconciliation ___ Sacrament of Sick ___ Supportive presence ___ Wedding _x__ Other (describe below) Pastoral Comments patient is in strict isolation precautions; a phone call was made into the room but the voicemail responded after three rings
[2024-03-30 13:52] LABS: Pathologist Review Reviewed
--- NOTE | 2024-03-30 14:25 | EX.PCM.CONCC ---
Assessment & Plan Assessment/Plan (1) Cavitary lesion of lung: PLAN: Plan RECOMMENDATIONS: 1. Supplemental oxygen to maintain saturations at or above 90%. 2. Antimicrobials per ID recommendations. 3. Recommend follow-up CT chest 6 weeks after completing antibiotic treatment course. 4. Continue scheduled bronchodilators. 5. Follow-up in the pulmonary medicine clinic as scheduled. IMPRESSIONS: 1. Cavitary pneumonia The patient was recently hospitalized with pansensitive pseudomonal pneumonia. He did have a chest x-ray completed which demonstrated a left upper lobe infiltrate. Subsequent CT imaging completed at the time of his hospital admission this time demonstrated a cavitary pneumonia. Unfortunately, CT imaging was not completed during his prior hospitalization. However, I do suspect that the infiltrate was likely present on the chest x-ray. At the present time, the patient is clinically stable on antimicrobials and bronchodilators, under the discretion of infectious diseases. I did recommend that we continue antibiotics, with tentative plans to obtain a follow-up CT chest 6 weeks after the completion of his treatment course. The patient is agreeable to this plan. If the patient were to decompensate clinically, bronchoscopy could be considered. 2. End-stage COPD/nocturnal hypoxemia/ongoing tobacco dependency Complicates care, management, recovery and prognosis. Continue scheduled bronchodilators and supplemental oxygen, as needed. This note was generated with [employer] dictation software. It may contain incorrect words, spelling, and punctuation that were not noted in checking the note before signing. HPI Consult Data Date of Consult: 03/30/24 HPI Narrative Reason for Consultation: Cavitary pneumonia HPI Narrative: The patient is a 63-year-old male, with a history as outlined below, who presented to the emergency department on March 28 with abdominal pain and shortness of breath. The patient has a known history of end-stage COPD on a triple therapy inhaler regimen, along with chronic tobacco dependency and nocturnal hypoxemia, requiring 2 L/min of oxygen nightly. The patient had just been discharged from the hospital on March 20, during which time, he was treated for pseudomonal pneumonia, which was pansensitive. The patient did have a left upper lobe infiltrate noted on chest x-ray at the time of his last hospitalization. However, CT imaging of the chest was never completed. On presentation to the emergency department, the patient was documented to be afebrile hemodynamically stable. Laboratory evaluation was notable for a white blood cell count of 23,000. CT chest/abdomen/pelvis demonstrated a cavitary pulmonary opacity in the left upper lobe. The patient was subsequently placed on antimicrobials and bronchodilators. He was admitted to the hospital for further management. Currently, the patient is maintaining appropriate oxygen saturations on 2 L/min at rest. He does report the presence of a productive cough. He is currently in rule out for TB. The patient's antimicrobials are being managed by infectious diseases. [facility] Medical History Smoker On home oxygen therapy IBS (irritable bowel syndrome) Hx of colonic polyp Alcohol abuse Hemorrhoids COPD (chronic obstructive pulmonary disease) Hypertension Arthritis Home Medications ?Medication ?Instructions ?Recorded ?Last Taken ?Type epinephrine 0.3 mg/0.3 mL 0.3 mg IM ONCE PRN anaphylaxis 07/07/23 Unknown History injection, auto-injector (EpiPen 2-Jesse) albuterol sulfate 90 mcg/actuation 1 puff inhalation Q6H PRN SOB #8.5 01/16/24 02/27/24 Rx aerosol inhaler grams Disability Placard #1 ea 01/30/24 Unknown Rx losartan 100 mg tablet 100 mg PO QDAY blood pressure 01/30/24 02/28/24 History fluticasone 500 mcg-salmeterol 50 1 inh inhalation BID respiratory 02/16/24 02/27/24 Rx mcg/dose blistr powdr for #3 ea inhalation (Advair Diskus) potassium chloride 20 mEq 20 meq PO BIDCM supplement #20 tabs 03/02/24 Unknown Rx tablet,extended release(part/cryst) sodium chloride 1,000 mg soluble 1,000 mg PO BID supplement #60 tabs 03/02/24 Unknown Rx tablet thiamine HCl (vitamin B1) 100 mg 100 mg PO DAILYCM supplement #30 03/02/24 Unknown Rx tablet tabs acetaminophen 500 mg tablet 1,000 mg PO Q8H pain 03/15/24 Unknown History folic acid 1 mg tablet 1 mg PO DAILY supplement 03/15/24 Unknown History sennosides 8.6 mg-docusate sodium 2 tab PO BID PRN Constipation 03/15/24 Unknown History 50 mg tablet (Stimulant Laxative Plus) tiotropium bromide 2.5 2 inh inhalation DAILY copd 03/15/24 Unknown History mcg/actuation mist for inhalation (Spiriva Respimat) bisacodyl 5 mg tablet 10 mg (2 x 5 mg) PO DAILY PRN 03/20/24 Unknown Rx constipation 0 days #10 tabs guaifenesin 1,200 mg tablet, 1,200 mg PO Q12H #10 tabs 03/20/24 Unknown Rx extended release 12 hr (Mucus Relief ER) levofloxacin 750 mg tablet 750 mg PO DAILY #5 tabs 03/20/24 Unknown Rx melatonin 3 mg tablet 3 mg PO QHS PRN PRN Insomnia #0 03/20/24 Unknown Rx tabs polyethylene glycol 3350 17 17 g PO DAILY #119 grams 03/20/24 Unknown Rx gram/dose oral powder (Miralax) Allergy/AdvReac Type Severity Reaction Status Date / Time amlodipine (From Norvasc) Allergy Swelling Verified 03/27/24 23:58 lisinopril Allergy Pain in Verified 03/27/24 23:58 joints tamsulosin Allergy Other Verified 03/27/24 23:58 tolterodine (From Detrol) Allergy Other Verified 03/27/24 23:58 Family History Mother Arthritis Father Diabetes Heart disease Hypertension Surgical History Hx of vasectomy Hx of colonoscopy Hx of appendectomy Social History household members: spouse and children housing: house current occupational status: employed Smoking Status: Former smoker second hand exposure: Yes alcohol intake: current alcohol intake frequency: 3 or more drinks per day substance use type: does not use caffeine: Yes what type of physical activity do you participate in: none frequency: does not exercise ROS ROS Narrative 10 systems were reviewed with pertinent positives as noted in the HPI above. Physical Exam Const alert and no apparent distress General Appearance: cooperative HEENT normocephalic and head/scalp atraumatic Eyes PERRL, EOMs intact bilaterally and conjunctivae normal Neck supple General: trachea midline Chest inspection of chest normal Resp normal respiratory effort Auscultation: wheezes and diminished lung sounds Cardio regular rate and regular rhythm GI normal to inspection, nondistended, normoactive bowel sounds Extremity no clubbing, cyanosis or edema Skin no rashes or lesions noted Neuro CN's II-XII intact bilaterally, moves all extremities and no focal motor deficits Psych cooperative and affect normal Medical Records Data Medical Nutrition Assessment Dietitian: Malnutrition Criteria Met Start: 03/28/24 09:58 Freq: Status: Active Protocol: Document 03/28/24 09:58 SLA (Rec: 03/28/24 09:58 [facility] [id number]) Nutrition Malnutrition Evidence of Yes Malnutrition Exists Malnutrition (severe Acute Illness/Injury ): Evidenced By Suboptimal Energy Intake (Severe),Weight Loss (Severe) Clinical Problem Acute Disease or Injury Related Malnutrition Etiology related to recent jaw fx (02/28/24) and inadequate energy intake Signs/Symptoms as evidenced by po intake < 75% of est nutritional needs and unplanned wt loss of ~10% x 1 month Status Active Problem Biting/Chewing Difficulty Etiology swallowing related to recent jaw fx 02/28/24 Signs/Symptoms as evidenced by pt self report Status Active Problem Recommendation Dietitian As medically able, rec DANIELLE to liberal Regular soft and Recommendations/ bite size per pt request Changes As medically able, rec 8 oz chocolate ensure plus high protein tid w/ meals for increased nutrition if consumed. Lab / Micro Data 03/30/24 06:40 03/30/24 06:40 Labs: Laboratory Results - last 24 hr 03/28/24 07:10: Diff Path Review Reviewed 03/29/24 13:38: Random Vancomycin 11.4 03/29/24 13:44: WBC 13.1 H, RBC 3.59 L, Hgb 10.8 L, Hct 32.8 L, MCV 91.4, MCH 30.1, MCHC 32.9, RDW Std Deviation 41.2, RDW Coeff of Pam 12.2, Plt Count 471 H, MPV 8.2, Immature Gran % (Auto) 0.400, Neut % (Auto) 81.7 H, Lymph % (Auto) 5.9 L, [place] % (Auto) 11.4 H, Eos % (Auto) 0.2, Baso % (Auto) 0.4, Absolute Neuts (auto) 10.7 H, Absolute Lymphs (auto) 0.77 L, Nucleated RBC % 0, Sodium 130 L, Potassium 3.9, Chloride 94 L, Carbon Dioxide 28.0, Anion Gap 8, BUN 9, Creatinine 0.55 L, Estim Creat Clear Calc 120.35, Est GFR (MDRD) Af Amer 193, Est GFR (MDRD) Non-Af 160, BUN/Creatinine Ratio 16.3, Glucose 100, Calcium 8.5 03/30/24 06:40: WBC 9.6, RBC 3.34 L, Hgb 10.2 L, Hct 30.5 L, MCV 91.3, MCH 30.5, MCHC 33.4, RDW Std Deviation 41.0, RDW Coeff of Pam 12.2, Plt Count 428, MPV 8.0, Immature Gran % (Auto) 0.500, Neut % (Auto) 76.6 H, Lymph % (Auto) 10.3 L, [place] % (Auto) 12.0 H, Eos % (Auto) 0.2, Baso % (Auto) 0.4, Absolute Neuts (auto) 7.3, Absolute Lymphs (auto) 0.99, Nucleated RBC % 0, Sodium 129 L, Potassium 3.7, Chloride 94 L, Carbon Dioxide 27.0, Anion Gap 8, BUN 8, Creatinine 0.47 L, Estim Creat Clear Calc 149.59, Est GFR (MDRD) Af Amer 230, Est GFR (MDRD) Non-Af 190, BUN/Creatinine Ratio 16.9, Glucose 122 H, Calcium 8.5 Micro: Microbiology 03/28/24 01:04 Blood Culture (Wb) - Anticubital Right Blood Culture - Preliminary No growth in 48 hours. 03/28/24 01:00 Blood Culture (Wb) - Anticubital Left Blood Culture - Preliminary No growth in 48 hours. Charges/Coding Visit Charges Inpatient E&M: 96927 Init Hosp L3
--- NOTE | 2024-03-30 14:49 | CHAPLAIN ---
Type of Pastoral Visit ___ Initial Visit ___ Follow-up Visit ___ On-call Visit ___ General Patient Visit ___ Spiritual Assessment ___ Family Conference ___ Bereavement ___ Rapid Response ___ Code Blue ___ Other (describe below) Pastoral Care Referral From ___ Patient ___ Family ___ Nurse ___ Physician ___ Supervisor Lead Burning ___ Supervisor Plastics ___ Other (describe below) Sacrament/Intervention ___ Active listening ___ Anointing ___ Alevism ___ Bereavement ___ Communion ___ Janice exploration ___ ___ Life review ___ Prayer ___ Reconciliation ___ Sacrament of Sick ___ Supportive presence ___ Wedding ___ Other (describe below) Pastoral Comments phone call made into this isolation room; voicemail came on at the third ring to say that this patient is not available at this time
[2024-03-30 14:59] LABS: Acid Fast Stain SEE PATHOLOGY REPORT; Cytology, Body Fluid / CSF SEE PATHOLOGY REPORT
--- NOTE | 2024-03-30 15:21 | PN_ITS ---
Subjective Subjective Patient seen and examined. He still complains of constipation. He still coughing. He had a colonoscopy yesterday which did not show any colonic mass and showed no evidence of obstruction. He denies any nausea or vomiting. Review of systems otherwise negative. Objective Data Objective Data Vital Signs: Vital Signs Temp Pulse Resp BP Pulse Ox O2 Del Method O2 Flow Rate 98.2 F 104 H 20 H 130/90 H 96 Nasal Cannula 2 03/30/24 09:46 03/30/24 13:32 03/30/24 13:32 03/30/24 09:46 03/30/24 09:46 03/30/24 09:52 03/30/24 09:52 Oxygen Flow Rate (L/min) 2 Oxygen Delivery Method Nasal Cannula Weight: 143 lb 1.28 oz Body Mass Index (BMI) 21.7 Intake & Output: Intake and Output for Last 24 Hours 03/28/24 03/29/24 03/30/24 23:59 23:59 23:59 Intake Total 2848.75 / 2948.75 2170 / 2170 1657 / 1657 Output Total 725 / 1325 1000 / 1600 1500 / 1500 Balance 2123.75 / 1623.75 1170 / 570 157 / 157 Medical Nutrition Assessment Dietitian: Malnutrition Criteria Met Start: 03/28/24 09:58 Freq: Status: Active Protocol: Document 03/28/24 09:58 KRISHAN (Rec: 03/28/24 09:58 KRISHAN [id number]) Nutrition Malnutrition Evidence of Yes Malnutrition Exists Malnutrition (severe Acute Illness/Injury ): Evidenced By Suboptimal Energy Intake (Severe),Weight Loss (Severe) Clinical Problem Acute Disease or Injury Related Malnutrition Etiology related to recent jaw fx (02/28/24) and inadequate energy intake Signs/Symptoms as evidenced by po intake < 75% of est nutritional needs and unplanned wt loss of ~10% x 1 month Status Active Problem Biting/Chewing Difficulty Etiology swallowing related to recent jaw fx 02/28/24 Signs/Symptoms as evidenced by pt self report Status Active Problem Recommendation Dietitian As medically able, rec DANIELLE to liberal Regular soft and Recommendations/ bite size per pt request Changes As medically able, rec 8 oz chocolate ensure plus high protein tid w/ meals for increased nutrition if consumed. Lab / Micro Data 03/30/24 06:40 03/30/24 06:40 Labs: Laboratory Results - last 24 hr 03/28/24 04:21: Acid Fast Stain SEE PATHOLOGY REPORT, Miscellaneous Cytology SEE PATHOLOGY REPORT 03/28/24 07:10: Diff Path Review Reviewed 03/29/24 01:37: Acid Fast Stain SEE PATHOLOGY REPORT, Miscellaneous Cytology SEE PATHOLOGY REPORT 03/29/24 13:44: WBC 13.1 H, RBC 3.59 L, Hgb 10.8 L, Hct 32.8 L, MCV 91.4, MCH 30.1, MCHC 32.9, RDW Std Deviation 41.2, RDW Coeff of Pam 12.2, Plt Count 471 H, MPV 8.2, Immature Gran % (Auto) 0.400, Neut % (Auto) 81.7 H, Lymph % (Auto) 5.9 L, [place] % (Auto) 11.4 H, Eos % (Auto) 0.2, Baso % (Auto) 0.4, Absolute Neuts (auto) 10.7 H, Absolute Lymphs (auto) 0.77 L, Nucleated RBC % 0, Sodium 130 L, Potassium 3.9, Chloride 94 L, Carbon Dioxide 28.0, Anion Gap 8, BUN 9, C reatinine 0.55 L, Estim Creat Clear Calc 120.35, Est GFR (MDRD) Af Amer 193, Est GFR (MDRD) Non-Af 160, BUN/Creatinine Ratio 16.3, Glucose 100, Calcium 8.5 03/30/24 06:40: WBC 9.6, RBC 3.34 L, Hgb 10.2 L, Hct 30.5 L, MCV 91.3, MCH 30.5, MCHC 33.4, RDW Std Deviation 41.0, RDW Coeff of Pam 12.2, Plt Count 428, MPV 8.0, Immature Gran % (Auto) 0.500, Neut % (Auto) 76.6 H, Lymph % (Auto) 10.3 L, [place] % (Auto) 12.0 H, Eos % (Auto) 0.2, Baso % (Auto) 0.4, Absolute Neuts (auto) 7.3, Absolute Lymphs (auto) 0.99, Nucleated RBC % 0, Sodium 129 L, Potassium 3.7, Chloride 94 L, Carbon Dioxide 27.0, Anion Gap 8, BUN 8, Creatinine 0.47 L, Estim Creat Clear Calc 149.59, Est GFR (MDRD) Af Amer 230, Est GFR (MDRD) Non-Af 190, BUN/Creatinine Ratio 16.9, Glucose 122 H, Calcium 8.5 Micro: Microbiology 03/28/24 01:04 Blood Culture (Wb) - Anticubital Right Blood Culture - Preliminary No growth in 48 hours. 03/28/24 01:00 Blood Culture (Wb) - Anticubital Left Blood Culture - Preliminary No growth in 48 hours. 03/28/24 00:40 Stool Enteric Bacteriology - Final 03/28/24 06:00 Urine, Clean Catch Legionella Antigen - Final 03/28/24 06:00 Urine, Clean Catch Streptococcus pneumoniae Antigen (M - Final 03/28/24 01:02 Mucosa - Nose SARS-CoV-2, Influenza & RSV (PCR) - Final Physical Exam Const alert, oriented x3, no apparent distress and well nourished Constitutional Narrative: [id number] distress noted with the patient appearing chronically ill and older than his stated age. General Appearance: cooperative and well developed HEENT normocephalic, head/scalp atraumatic, hearing grossly normal bilaterally, moist oral mucous membranes and oropharynx normal Eyes PERRL and EOMs intact bilaterally Neck no lymphadenopathy and supple Lymph Lymphatic: no lymphadenopathy noted Resp Resp Narrative: diminished breath sounds bibasally, no wheezes or crackles. On 2L of oxygen. Cardio regular rate, regular rhythm, S1 normal heart sound, S2 normal heart sound and no murmurs GI normal to inspection, nondistended, normoactive bowel sounds and soft to palpation GI Narrative: mild left lower quadrant tenderness, no guarding or rebound tenderness. Extremity normal to inspection, full ROM, normal capillary refill, no clubbing, cyanosis or edema and no calf tenderness General Extremity: no tenderness to palpation of joints or extremities Skin Skin Narrative: Patient has no evidence of rash, abscess, wounds or jaundice. General Skin Exam: no breakdown Neuro oriented x3, CN's II-XII intact bilaterally, moves all extremities, no focal motor deficits and no sensory deficits noted Sensorium / Orientation: awake, alert, oriented to person, oriented to place and oriented to time Speech: speech normal Motor Exam: strength 5/5 throughout and general weakness Psych thought process normal, cooperative and affect normal Appearance: appropriate Assessment & Plan Assessment/Plan (1) Generalized weakness: (2) Acute cystitis: QUALIFIERS: Hematuria presence: without hematuria Qualified Code(s): N30.00 - Acute cystitis without hematuria PLAN: Plan #Left upper lobe cavitary opacity * Patient was 2 L of oxygen chronically at home. CT of the chest done on admission for cavitary pulmonary opacity in the left upper lobe measuring about 4.8 cm suspicious for malignancy versus TB * He also had mild reticulonodular opacities in the right lung base and small groundglass nodular opacity in the left lower lobe which may be infectious or inflammatory. * Continue negative pressure room. TB screen ordered. On IV vancomycin and Zosyn. * Urine for strep and Legionella negative. Also on IV Solu-Medrol. ID on board. Repeat sputum AFBs still pending * Per ID to repeat sputum AFB. * #Small partial bowel obstruction * Apparently the colonic mass was seen on his last CT scan but he never followed up with GI. CT of the abdomen and pelvis this time showed 3.2 cm mass in the sigmoid colon as well as thickening of the sigmoid proximal to this possibly from several colitis. * General surgery on board. Consulted gastroenterology for flexible sigmoidoscopy today for possible stent placement. * had colonoscopy which showed no evidence of a mass or obstruction. COncern now is his symptoms are due to severe constipation. * He had enemas yesterday but this does not help with the constipation * . General surgery to have GoLytely today to help with constipation #Cystitis: Currently on IV Zosyn. Urine cultures pending. Blood cultures negative. WBC is down to 9.6. #Hyponatremia: Sodium is 129 today. Will hydrate with IV fluids and monitor. #Benign essential hypertension: All BP meds on hold as patient is n.p.o. IV hydralazine as needed #History of nicotine dependence: Quit a month ago. Counseled continue abstaining. Nicotine patch as needed #History of alcohol use disorder * says he is to drink about 3-6 beers daily until February 2024. * He had not taken any alcohol since then. * Not in withdrawal. * Counseled to continue abstaining. * #CHronic respiratory failure due to COPD * Currently on 2 L of oxygen which is what he wears at home. * Breathing treatments bronchodilators. Titrate oxygen to maintain saturation above 90%. * DVT prophylaxis: Heparin # Charges/Coding Visit Charges Inpatient E&M: 09906 Subs Hosp L2
[2024-03-30] MEDS: Ondansetron 4 MG/2 ML Vial IV (20:28)
[2024-03-30] MEDS: Albuterol 2.5 MG/3 ML VIAL.NEB. INHALATION (23:50)
[2024-03-31] VITALS (18 sets, daily range): BP systolic 143–171; BP diastolic 89–106; PULSE 104–117; RESP 12–24; TEMP 36.6–37; O2SAT 93–100; BMI 21.4
[2024-03-31] MEDS: Ampicillin/Sulbactam 3 GM in 0.9% Normal Saline (100mL MB+) 100 ML IV ×3 (00:31→11:47)
[2024-03-31] MEDS: Heparin Injection (Vial) 5,000 UNIT/ML VIAL 5000 UNIT SC ×3 (00:35→21:06)
[2024-03-31] MEDS: 0.9% Saline Lock 10 ML Syringe IV ×8 (00:39→21:06)
[2024-03-31] MEDS: HYDROmorphone 1 MG/ML Syringe IV ×6 (00:39→21:07)
--- NOTE | 2024-03-31 02:04 | RAD_ITS ---
PROCEDURE: ABDOMEN SINGLE VIEW (PORTABLE) REASON FOR EXAM: Distention TECHNIQUE: Single view abdomen. COMPARISON: None FINDINGS: Trace atelectasis within the lung bases. Gas distended small bowel loops throughout the abdomen and pelvis, largest bowel loop within the left abdomen measures up to 5 cm. Mild amounts of fecal retention within the right colon. No free air. No calcifications or obstructive uropathy involving the bilateral collecting systems. Osseous structures about the abdomen and pelvis appear intact. Spondylotic changes involving the lumbar spine. RAD/Abdomen Single View (Portable) IMPRESSION: Gas distended small bowel loops, largest within the left abdomen, measures up t o 5.0 cm. Findings are concerning for small bowel obstruction. Reading Location: [facility]
--- NOTE | 2024-03-31 02:04 | RAD_ITS ---
PROCEDURE: CHEST 1 VIEW (PORTABLE) REASON FOR EXAM: Shortness of breath TECHNIQUE: AP portable view of the chest. COMPARISON: None FINDINGS: Mildly elevated left hemidiaphragm. Trace atelectasis within the lung bases. Opacity seen within the left upper lobe, laterally measuring up to 3.7 cm. Remaining lung markings otherwise appears clear. No pneumothorax. No pleural effusions. Heart size and great vessels are within normal limits. Osseous thorax appears intact. EKG wires overlie the chest. Gas-filled bowel loops within the visualized left upper abdomen. RAD/Chest 1 View (Portable) IMPRESSION: Patchy opacity within the left upper lobe, laterally, as described. Correlate for an infectious or inflammatory process. Follow-up to resolution recommended. Reading Location: [facility]
--- NOTE | 2024-03-31 02:04 | PCM.HOSP.N ---
Hospitalist Note Increased abdominal distention, episode N/V, enema also unsuccessful. Surgery following. Increased oxygen needs currently. Will obtain CXR/KUB and ABG.
--- NOTE | 2024-03-31 02:31 | RAD_ITS ---
PROCEDURE: ABDOMEN SINGLE VIEW (PORTABLE) REASON FOR EXAM: Check nasogastric tube placement. TECHNIQUE: Single view abdomen. COMPARISON: 03/31/2024. FINDINGS: Gas distended loops of small bowel are redemonstrated. Nasogastric tube tip projects over the body of the stomach. The bones are unremarkable. RAD/Abdomen Single View (Portable) IMPRESSION: Tip of the nasogastric tube appears to be in good position. Multiple distended loops of small bowel are redemonstrated. Reading Location: [facility]
[2024-03-31] MEDS: Ipratropium/Albuterol Sulfate 3 ML AMPUL.NEB INHALATION ×4 (03:38→20:24)
[2024-03-31] MEDS: Oxymetazoline 0.05% 1 SPRAY SPRAY.BTL 2 SPRAY NASAL (03:40)
[2024-03-31 03:44] LABS: Absolute Lymphocyte Count 0.86 X10^3/uL (0.83-4.51); Absolute Neutrophil Count 8.7 X10^3/uL (2.0-7.7); Basophil# 0.03 X10^3/uL; Basophil% 0.3 % (0-1); Eosinophil# 0.02 X10^3/uL; Eosinophils% 0.2 % (0-5); Hemoglobin 10.9 g/dL (13.0-16.5); Lymphocyte # 0.86 X10^3/ul (0.83-4.51); Lymphocyte % 8.1 % (19-41); Mean Corp Hgb Conc 32.1 g/dL (32-36); Mean Corpuscular Hgb 29.2 pg (27.0-32.0); Mean Corpuscular Volume 91.2 fL (80-94); Mean Platelet Vol. 7.7 fl (6.2-12.0); Monocyte# 1.01 X10^3/uL; Monocyte% 9.5 % (0-10); NRBC Flagged by Analyzer 0 % (0-5); Neutrophil # 8.68 X10^3/uL (2.7-7.7); Neutrophil % 81.5 % (47-70); Platelet Count 472 K/mm3 (150-450); RBC Distribution Width CV 12.2 % (11.6-14.6); RBC Distribution Width SD 40.6 fl (35.1-43.9); Red Blood Count 3.73 M/mm3 (4.6-6.2); White Blood Count 10.6 K/mm3 (4.4-11.0)
[2024-03-31] MEDS: hydrALAZINE 20 MG/ML Vial 5 MG IV (04:05)
[2024-03-31 04:07] LABS: QNTFERON TB Mitogen Value > 10.00 IU/mL (.); QNTFERON TB Nil Value 0 IU/mL (.); QNTFERON TB1+ Ag Value 0.01 IU/mL (.); QNTFERON TB2+ Ag Value 0.01 IU/mL (.); QNTIFERON TB Positive Criteria Negative (Negative)
[2024-03-31 04:14] LABS: Anion Gap 9 (5-15); BUN 8 mg/dL (7-18); BUN/Creat Ratio 13.7 RATIO (10-20); Calcium,Total 8.7 mg/dL (8.5-10.1); Chloride 94 mmol/L (98-107); Creatinine, Serum 0.58 mg/dL (0.70-1.30); EST Glomerular Filtration Rate 150 mL/min (>60); Est Glom Filt Rate - Afr Amer 182 mL/min (>60); Estimated Creatinine Clearance 121.22 ml/min; Glucose 114 mg/dL (74-106); Potassium 3.5 mmol/L (3.5-5.1); Sodium Level 132 mmol/L (136-145)
[2024-03-31 04:15] LABS: Vancomycin, Trough Level 17.2 ug/mL (5.0-15.0)
--- NOTE | 2024-03-31 04:28 | NURSING ---
NG tube inserted in left nare. placement verified with auscultation. xray taken for placement. KUB ordered and completed. awaiting results.
--- NOTE | 2024-03-31 04:41 | PCM.RX.CS ---
Consult Antibiotic Management Pharmacy has been consulted to manage selected antibiotic: Vancomycin Type of Intervention Type of Consult: Follow-up Suspected Infection Suspected Infection: Pneumonia Labs Labs: Sodium 132 mmol/L (136-145) L 03/31/24 03:36 Potassium 3.5 mmol/L (3.5-5.1) 03/31/24 03:36 Chloride 94 mmol/L (98-107) L 03/31/24 03:36 Carbon Dioxide 29.0 mmol/L (21.0-32.0) 03/31/24 03:36 Anion Gap 9 (5-15) 03/31/24 03:36 BUN 8 mg/dL (7-18) 03/31/24 03:36 Creatinine 0.58 mg/dL (0.70-1.30) L 03/31/24 03:36 Est GFR (MDRD) Af Amer 182 mL/min (>60) 03/31/24 03:36 Est GFR (MDRD) Non-Af 150 mL/min (>60) 03/31/24 03:36 BUN/Creatinine Ratio 13.7 RATIO (10-20) 03/31/24 03:36 Glucose 114 mg/dL (74-106) H 03/31/24 03:36 Vancomycin Trough 17.2 ug/mL (5.0-15.0) H 03/31/24 03:36 Random Vancomycin 11.4 ug/mL (0.0-15.0) 03/29/24 13:38 Microbiology Microbiology: Microbiology 03/28/24 01:04 Blood Culture (Wb) - Anticubital Right Blood Culture - Preliminary No growth in 48 hours. 03/28/24 01:00 Blood Culture (Wb) - Anticubital Left Blood Culture - Preliminary No growth in 48 hours. 03/28/24 00:40 Stool Enteric Bacteriology - Final 03/28/24 06:00 Urine, Clean Catch Legionella Antigen - Final 03/28/24 06:00 Urine, Clean Catch Streptococcus pneumoniae Antigen (M - Final 03/28/24 01:02 Mucosa - Nose SARS-CoV-2, Influenza & RSV (PCR) - Final Dosing Weight Weight used for dosin kg Estimated Creatinine Clearance Estimated Creatinine Clearance: 121 Goal Trough Goal Trough: 15-20 mcg/mL Pharmacy Plan for Drug Dosing Pharmacy Plan for Drug Dosing: Vancomycin trough level of 17.2, drawn 12hrs post-dose, was within the target range of 15-20. Will continue dosing at 1750mg q12h, and will draw another trough level in two days. Pharmacy Service will continue to monitor and adjust dosing as required. Follow-Up Labs Follow-Up Labs: Trough: Vancomycin Date/Time Labs Ordered Labs to be done on [date and time ordered]: 04/02/24 @0333
[2024-03-31] MEDS: Vancomycin HCl 1,750 MG in 0.9% Normal Saline (500mL Bag) 500 ML 250 MG IV ×2 (04:49→16:58)
[2024-03-31 06:45] LABS: Allen Test Positive; Base Excess 5 mmol/L (-2 to +2); Bicarbonate 30.5 mmol/L (22-26); Blood Gas Specimen Type ART; Mode Not entered; O2 Delivery Device HFNC; PO2 105 mmHG (75-100); SITE L Radial; SO2 98 % (95-99); Total Carbon Dioxide 32 mmol/L; pCO2 53.9 mmHg (35-45); pH 7.36 (7.35-7.45)
[2024-03-31] MEDS: Budesonide Respules 0.5 MG/2 ML AMPUL.NEB. INHALATION ×2 (06:55→20:25)
--- NOTE | 2024-03-31 07:32 | CT_ITS ---
PROCEDURE: ABDOMEN/PELVIS WITH CONTRAST REASON FOR EXAM: Abdominal pain. TECHNIQUE: Abdomen and pelvis CT with intravenous contrast. IV CONTRAST: IV CONTRAST: 100 cc of Isovue-300. COMPARISON: Comparison is made with prior study dated March 28, 2024. FINDINGS: Lung bases: Clear Liver: Unremarkable. Gallbladder: Unremarkable. Spleen: Unremarkable. Pancreas: Unremarkable. Adrenals: Unremarkable. Kidneys: Unremarkable. Bladder: Unremarkable. Bowel: Dilatation of the right hemicolon with gas and large amount of fecal material. Diffuse sigmoid diverticulosis with no radiographic evidence of diverticulitis at this time. Appendix: Normal. Lymph nodes: No suspicious lymph node enlargement. Vasculature: Mild diffuse atherosclerotic calcifications are noted. Peritoneum / Retroperitoneum: No ascites. No free air. Bones: Degenerative changes of the spine. Aorta: Mild mixed calcified and soft plaque identified. No abdominal aortic aneurysm. CT/Abdomen/Pelvis WITH Contrast IMPRESSION: Distention of the right hemicolon with gas and large amount of fecal material. Sigmoid diverticulosis. One or more dose reduction techniques were used (e.g., Automated exposure contr ol, adjustment of the mA and/or kV according to patient size, use of iterative reconstruction technique). Reading Location: [place] [id number]
--- NOTE | 2024-03-31 07:33 | PN.SURG_ITS ---
Subjective Subjective Patient reported nausea with the bowel prep yesterday. He does not report any results. He is having abdominal pain still. He reports no passing of flatus or bowel movement Objective Data Objective Data Vital Signs: Vital Signs Temp Pulse Resp BP Pulse Ox O2 Del Method O2 Flow Rate 98.0 F 105 H 18 171/96 H 93 Nasal Cannula 7 03/31/24 04:03 03/31/24 06:56 03/31/24 06:56 03/31/24 04:05 03/31/24 06:56 03/31/24 06:56 03/31/24 06:56 Oxygen Flow Rate (L/min) 7 Oxygen Delivery Method Nasal Cannula Weight: 140 lb 10.479 oz Body Mass Index (BMI) 21.4 Intake & Output: Intake and Output for Last 24 Hours 03/29/24 03/30/24 03/31/24 23:59 23:59 23:59 Intake Total 2170 / 2170 3154 / 3154 224 / 224 Output Total 1000 / 1600 1500 / 1500 860 / 860 Balance 1170 / 570 1654 / 1654 -636 / -636 Medical Nutrition Assessment Dietitian: Malnutrition Criteria Met Start: 03/28/24 09:58 Freq: Status: Active Protocol: Document 03/28/24 09:58 [facility] (Rec: 03/28/24 09:58 [facility] [id number]) Nutrition Malnutrition Evidence of Yes Malnutrition Exists Malnutrition (severe Acute Illness/Injury ): Evidenced By Suboptimal Energy Intake (Severe),Weight Loss (Severe) Clinical Problem Acute Disease or Injury Related Malnutrition Etiology related to recent jaw fx (02/28/24) and inadequate energy intake Signs/Symptoms as evidenced by po intake < 75% of est nutritional needs and unplanned wt loss of ~10% x 1 month Status Active Problem Biting/Chewing Difficulty Etiology swallowing related to recent jaw fx 02/28/24 Signs/Symptoms as evidenced by pt self report Status Active Problem Recommendation Dietitian As medically able, rec DANIELLE to liberal Regular soft and Recommendations/ bite size per pt request Changes As medically able, rec 8 oz chocolate ensure plus high protein tid w/ meals for increased nutrition if consumed. Lab / Micro Data 03/31/24 03:36 03/31/24 03:36 Labs: Laboratory Results - last 24 hr 03/28/24 04:21: Acid Fast Stain SEE PATHOLOGY REPORT, Miscellaneous Cytology SEE PATHOLOGY REPORT 03/28/24 07:10: Diff Path Review Reviewed 03/28/24 11:25: TB Test (QFT) Nil 0, TB Test (QFT) Mitogen > 10.00, TB Test (QFT) Ag 1 0.01, TB Test (QFT) Ag 2 0.01, TB Test (QFT) Comment, TB Positive Criteria Negative 03/29/24 01:37: Acid Fast Stain SEE PATHOLOGY REPORT, Miscellaneous Cytology SEE PATHOLOGY REPORT 03/30/24 06:40: Sodium 129 L, Potassium 3.7, Chloride 94 L, Carbon Dioxide 27.0, Anion Gap 8, BUN 8, Creatinine 0.47 L, Estim Creat Clear Calc 149.59, Est GFR (MDRD) Af Amer 230, Est GFR (MDRD) Non-Af 190, BUN/Creatinine Ratio 16.9, G lucose 122 H, Calcium 8.5 03/31/24 03:36: WBC 10.6, RBC 3.73 L, Hgb 10.9 L, Hct 34.0 L, MCV 91.2, MCH 29.2, MCHC 32.1, RDW Std Deviation 40.6, RDW Coeff of Pam 12.2, Plt Count 472 H, MPV 7.7, Immature Gran % (Auto) 0.400, Neut % (Auto) 81.5 H, Lymph % (Auto) 8.1 L, [place] % (Auto) 9.5, Eos % (Auto) 0.2, Baso % (Auto) 0.3, Absolute Neuts (auto) 8.7 H, Absolute Lymphs (auto) 0.86, Nucleated RBC % 0, Sodium 132 L, Potassium 3.5, Chloride 94 L, Carbon Dioxide 29.0, Anion Gap 9, BUN 8, Creatinine 0.58 L, Estim Creat Clear Calc 121.22, Est GFR (MDRD) Af Amer 182, Est GFR (MDRD) Non-Af 150, BUN/Creatinine Ratio 13.7, Glucose 114 H, Calcium 8.7, Vancomycin Trough 17.2 H Micro: Microbiology 03/28/24 01:04 Blood Culture (Wb) - Anticubital Right Blood Culture - Preliminary No growth in 48 hours. 03/28/24 01:00 Blood Culture (Wb) - Anticubital Left Blood Culture - Preliminary No growth in 48 hours. 03/28/24 00:40 Stool Enteric Bacteriology - Final 03/28/24 06:00 Urine, Clean Catch Legionella Antigen - Final 03/28/24 06:00 Urine, Clean Catch Streptococcus pneumoniae Antigen (M - Final 03/28/24 01:02 Mucosa - Nose SARS-CoV-2, Influenza & RSV (PCR) - Final ABG Data ABG results: ABG 03/31/24 06:42 Specimen Type ART Sample Site L Radial pH 7.36 Bicarbonate Actual 30.5 H Total CO2 32 Base Excess 5 H O2 Saturation 98 O2 % 9.0 ABG pCO2 53.9 H ABG pO2 105 H [place] Test Positive O2 Delivery Device HFNC Vent Mode Not entered Radiography Diagnostic Testing: Radiology Impression Chest X-Ray 03/31/24 02:04 IMPRESSION: Patchy opacity within the left upper lobe, laterally, as described. Correlate for an infectious or inflammatory process. Follow-up to resolution recommended. Reading [facility] 03/31/24 02:04 IMPRESSION: Gas distended small bowel loops, largest within the left abdomen, measures up to 5.0 cm. Findings are concerning for small bowel obstruction. Reading Location[facility] X-Ray 03/31/24 02:31 IMPRESSION: Tip of the nasogastric tube appears to be in good position. Multiple distended loops of small bowel are redemonstrated. Reading Location: [place] Physical Exam Const oriented x3 and no apparent distress Resp normal respiratory effort GI soft to palpation Inspection: abdominal distention Palpation: tender Assessment & Plan Assessment/Plan (1) Constipation: PLAN: The patient had a suspected obstruction of the sigmoid colon due to the large amount of stool but he had a colonoscopy that did not show a mass or obstructing lesion. I gave the patient 2 L of GoLytely yesterday which did not produce any results but he did get nauseated and an NG tube was placed overnight. Patient reports no bowel function. He had a KUB to confirm the NG placement that showed dilated small bowel. As this is a change from the dilated colon I would like to order repeat CT scan to evaluate. Jordan Ortega MD Pager: [facility] [address] [place] [address] [phone] [place] [phone] Office:
--- NOTE | 2024-03-31 07:33 | PN.SURG_ITS ---
Subjective Subjective Patient evaluated resting comfortably in bed. He notes continued abdominal pain. He had increased abdominal distention and nausea over night requiring an NG tube placement. Objective Data Objective Data Vital Signs: Vital Signs Temp Pulse Resp BP Pulse Ox O2 Del Method O2 Flow Rate 98.0 F 105 H 18 171/96 H 93 Nasal Cannula 7 03/31/24 04:03 03/31/24 06:56 03/31/24 06:56 03/31/24 04:05 03/31/24 06:56 03/31/24 06:56 03/31/24 06:56 Oxygen Flow Rate (L/min) 7 Oxygen Delivery Method Nasal Cannula Weight: 140 lb 10.479 oz Body Mass Index (BMI) 21.4 Intake & Output: Intake and Output for Last 24 Hours 03/29/24 03/30/24 03/31/24 23:59 23:59 23:59 Intake Total 2170 / 2170 3154 / 3154 224 / 224 Output Total 1000 / 1600 1500 / 1500 860 / 860 Balance 1170 / 570 1654 / 1654 -636 / -636 Medical Nutrition Assessment Dietitian: Malnutrition Criteria Met Start: 03/28/24 09:58 Freq: Status: Active Protocol: Document 03/28/24 09:58 [facility] (Rec: 03/28/24 09:58 [facility] [id number]) Nutrition Malnutrition Evidence of Yes Malnutrition Exists Malnutrition (severe Acute Illness/Injury ): Evidenced By Suboptimal Energy Intake (Severe),Weight Loss (Severe) Clinical Problem Acute Disease or Injury Related Malnutrition Etiology related to recent jaw fx (02/28/24) and inadequate energy intake Signs/Symptoms as evidenced by po intake < 75% of est nutritional needs and unplanned wt loss of ~10% x 1 month Status Active Problem Biting/Chewing Difficulty Etiology swallowing related to recent jaw fx 02/28/24 Signs/Symptoms as evidenced by pt self report Status Active Problem Recommendation Dietitian As medically able, rec DANIELLE to liberal Regular soft and Recommendations/ bite size per pt request Changes As medically able, rec 8 oz chocolate ensure plus high protein tid w/ meals for increased nutrition if consumed. Lab / Micro Data 03/31/24 03:36 03/31/24 03:36 Labs: Laboratory Results - last 24 hr 03/28/24 04:21: Acid Fast Stain SEE PATHOLOGY REPORT, Miscellaneous Cytology SEE PATHOLOGY REPORT 03/28/24 07:10: Diff Path Review Reviewed 03/28/24 11:25: TB Test (QFT) Nil 0, TB Test (QFT) Mitogen > 10.00, TB Test (QFT) Ag 1 0.01, TB Test (QFT) Ag 2 0.01, TB Test (QFT) Comment, TB Positive Criteria Negative 03/29/24 01:37: Acid Fast Stain SEE PATHOLOGY REPORT, Miscellaneous Cytology SEE PATHOLOGY REPORT 03/30/24 06:40: Sodium 129 L, Potassium 3.7, Chloride 94 L, Carbon Dioxide 27.0, Anion Gap 8, BUN 8, Creatinine 0.47 L, Estim Creat Clear Calc 149.59, Est GFR (MDRD) Af Amer 230, Est GFR (MDRD) Non-Af 190, BUN/Creatinine Ratio 16.9, G lucose 122 H, Calcium 8.5 03/31/24 03:36: WBC 10.6, RBC 3.73 L, Hgb 10.9 L, Hct 34.0 L, MCV 91.2, MCH 29.2, MCHC 32.1, RDW Std Deviation 40.6, RDW Coeff of Pam 12.2, Plt Count 472 H, MPV 7.7, Immature Gran % (Auto) 0.400, Neut % (Auto) 81.5 H, Lymph % (Auto) 8.1 L, [place] % (Auto) 9.5, Eos % (Auto) 0.2, Baso % (Auto) 0.3, Absolute Neuts (auto) 8.7 H, Absolute Lymphs (auto) 0.86, Nucleated RBC % 0, Sodium 132 L, Potassium 3.5, Chloride 94 L, Carbon Dioxide 29.0, Anion Gap 9, BUN 8, Creatinine 0.58 L, Estim Creat Clear Calc 121.22, Est GFR (MDRD) Af Amer 182, Est GFR (MDRD) Non-Af 150, BUN/Creatinine Ratio 13.7, Glucose 114 H, Calcium 8.7, Vancomycin Trough 17.2 H Micro: Microbiology 03/28/24 01:04 Blood Culture (Wb) - Anticubital Right Blood Culture - Preliminary No growth in 48 hours. 03/28/24 01:00 Blood Culture (Wb) - Anticubital Left Blood Culture - Preliminary No growth in 48 hours. 03/28/24 00:40 Stool Enteric Bacteriology - Final 03/28/24 06:00 Urine, Clean Catch Legionella Antigen - Final 03/28/24 06:00 Urine, Clean Catch Streptococcus pneumoniae Antigen (M - Final 03/28/24 01:02 Mucosa - Nose SARS-CoV-2, Influenza & RSV (PCR) - Final ABG Data ABG results: ABG 03/31/24 06:42 Specimen Type ART Sample Site L Radial pH 7.36 Bicarbonate Actual 30.5 H Total CO2 32 Base Excess 5 H O2 Saturation 98 O2 % 9.0 ABG pCO2 53.9 H ABG pO2 105 H [place] Test Positive O2 Delivery Device HFNC Vent Mode Not entered Radiography Diagnostic Testing: Radiology Impression Chest X-Ray 03/31/24 02:04 IMPRESSION: Patchy opacity within the left upper lobe, laterally, as described. Correlate for an infectious or inflammatory process. Follow-up to resolution recommended. Reading Location: [facility] K[facility] X-[facility] 03/31/24 02:04 IMPRESSION: Gas distended small bowel loops, largest within the left abdomen, measures up to 5.0 cm. Findings are concerning for small bowel obstruction. Reading Location[facility] 03/31/24 02:31 IMPRESSION: Tip of the nasogastric tube appears to be in good position. Multiple distended loops of small bowel are redemonstrated. Reading Location: [place] Physical Exam GI GI Narrative: Abdomen- soft, distended, pain to palpation Assessment & Plan Assessment/Plan (1) Constipation: PLAN: I am following this patient in conjunction with Dr. Ortega. He also evaluated this patient. Labs reviewed Plan to order a CT scan of the ab/pel with contrast. We will continue to mointor this patient Charges/Coding Visit Charges Inpatient E&M: 19498 [facility] Hosp L1
--- NOTE | 2024-03-31 07:42 | NURSING ---
Texted Dr Lara update re small bowel obstruction found on KUB and NG placed per Dr Ndiaye request to have surgery informed. Dr lara is covering for Jordan
[2024-03-31] MEDS: Pantoprazole Sodium 40 MG in 0.9% Normal Saline (100mL MB+) 100 ML 330 MG IV ×2 (09:03→20:39)
[2024-03-31] MEDS: Albuterol 2.5 MG/3 ML VIAL.NEB. INHALATION (10:32)
--- NOTE | 2024-03-31 11:05 | PN_ITS ---
Subjective Subjective Patient seen and examined. Patient was very uncomfortable and in pain. He also complained of shortness of breath. He had to have an NG tube inserted overnight due to abdominal distension and abdominal pain with incessant nausea. Patient had the golytely yesterday but did not have any bowel movements. He says he is burping but has not had any bowel movement. He is for CT abdomen with contrast. he is also now on 6L of oxygen and went as high as 9L yesterday. Objective Data Objective Data Vital Signs: Vital Signs Temp Pulse Resp BP Pulse Ox O2 Del Method O2 Flow Rate 98.0 F 106 H 16 146/89 H 100 High Flow 7 03/31/24 07:35 03/31/24 10:34 03/31/24 10:34 03/31/24 07:35 03/31/24 07:35 03/31/24 07:35 03/31/24 07:35 Oxygen Flow Rate (L/min) 7 Oxygen Delivery Method High Flow Weight: 140 lb 10.479 oz Body Mass Index (BMI) 21.4 Intake & Output: Intake and Output for Last 24 Hours 03/29/24 03/30/24 03/31/24 23:59 23:59 23:59 Intake Total 2170 / 2170 3154 / 3154 869 / 869 Output Total 1000 / 1600 1500 / 1500 860 / 860 Balance 1170 / 570 1654 / 1654 Medical Nutrition Assessment Dietitian: Malnutrition Criteria Met Start: 03/28/24 09:58 Freq: Status: Active Protocol: Document 03/28/24 09:58 [facility] (Rec: 03/28/24 09:58 SLA [id number]) Nutrition Malnutrition Evidence of Yes Malnutrition Exists Malnutrition (severe Acute Illness/Injury ): Evidenced By Suboptimal Energy Intake (Severe),Weight Loss (Severe) Clinical Problem Acute Disease or Injury Related Malnutrition Etiology related to recent jaw fx (02/28/24) and inadequate energy intake Signs/Symptoms as evidenced by po intake < 75% of est nutritional needs and unplanned wt loss of ~10% x 1 month Status Active Problem Biting/Chewing Difficulty Etiology swallowing related to recent jaw fx 02/28/24 Signs/Symptoms as evidenced by pt self report Status Active Problem Recommendation Dietitian As medically able, rec DANIELLE to liberal Regular soft and Recommendations/ bite size per pt request Changes As medically able, rec 8 oz chocolate ensure plus high protein tid w/ meals for increased nutrition if consumed. Lab / Micro Data 03/31/24 03:36 03/31/24 03:36 Labs: Laboratory Results - last 24 hr 03/28/24 04:21: Acid Fast Stain SEE PATHOLOGY REPORT, Miscellaneous Cytology SEE PATHOLOGY REPORT 03/28/24 07:10: Diff Path Review Reviewed 03/28/24 11:25: TB Test (QFT) Nil 0, TB Test (QFT) Mitogen > 10.00, TB Test (QFT) Ag 1 0.01, TB Test (QFT) Ag 2 0.01, TB Test (QFT) Comment, TB Positive Criteria Negative 03/29/24 01:37: Acid Fast Stain SEE PATHOLOGY REPORT, Miscellaneous Cytology SEE PATHOLOGY REPORT 03/31/24 03:36: WBC 10.6, RBC 3.73 L, Hgb 10.9 L, Hct 34.0 L, MCV 91.2, MCH 29.2, MCHC 32.1, RDW Std Deviation 40.6, RDW Coeff of Pam 12.2, Plt Count 472 H, MPV 7.7, Immature Gran % (Auto) 0.400, Neut % (Auto) 81.5 H, Lymph % (Auto) 8.1 L, [place] % (Auto) 9.5, Eos % (Auto) 0.2, Baso % (Auto) 0.3, Absolute Neuts (auto) 8.7 H, Absolute Lymphs (auto) 0.86, Nucleated RBC % 0, Sodium 132 L, Potassium 3.5, Chloride 94 L, Carbon Dioxide 29.0, Anion Gap 9, BUN 8, Creatinine 0.58 L, Estim Creat Clear Calc 121.22, Est GFR (MDRD) Af Amer 182, Est GFR (MDRD) Non-Af 150, BUN/Creatinine Ratio 13.7, Glucose 114 H, Calcium 8.7, Vancomycin Trough 17.2 H Micro: Microbiology 03/28/24 01:04 Blood Culture (Wb) - Anticubital Right Blood Culture - Preliminary No growth in 48 hours. 03/28/24 01:00 Blood Culture (Wb) - Anticubital Left Blood Culture - Preliminary No growth in 48 hours. 03/28/24 00:40 Stool Enteric Bacteriology - Final 03/28/24 06:00 Urine, Clean Catch Legionella Antigen - Final 03/28/24 06:00 Urine, Clean Catch Streptococcus pneumoniae Antigen (M - Final 03/28/24 01:02 Mucosa - Nose SARS-CoV-2, Influenza & RSV (PCR) - Final ABG Data ABG results: ABG 03/31/24 06:42 Specimen Type ART Sample Site L Radial pH 7.36 Bicarbonate Actual 30.5 H Total CO2 32 Base Excess 5 H O2 Saturation 98 O2 % 9.0 ABG pCO2 53.9 H ABG pO2 105 H [place] Test Positive O2 Delivery Device HFNC Vent Mode Not entered Radiography Diagnostic Testing: Radiology Impression Chest X-Ray 03/31/24 02:04 IMPRESSION: Patchy opacity within the left upper lobe, laterally, as described. Correlate for an infectious or inflammatory process. Follow-up to resolution recommended. Reading [facility] 03/31/24 02:04 IMPRESSION: Gas distended small bowel loops, largest within the left abdomen, measures up to 5.0 cm. Findings are concerning for small bowel obstruction. Reading Location: [facility] 03/31/24 02:31 IMPRESSION: Tip of the nasogastric tube appears to be in good position. Multiple distended loops of small bowel are redemonstrated. Reading Location: [place] Physical Exam Const alert, oriented x3, no apparent distress and well nourished Constitutional Narrative: Daoy-sf-hegrawce distress noted with the patient appearing chronically ill and older than his stated age. General Appearance: cooperative and well developed HEENT normocephalic, head/scalp atraumatic, hearing grossly normal bilaterally, moist oral mucous membranes and oropharynx normal Eyes PERRL and EOMs intact bilaterally Neck no lymphadenopathy and supple Lymph Lymphatic: no lymphadenopathy noted Resp Resp Narrative: diminished breath sounds bilaterally, bilateral coarse crackles. On 7L of oxygen today. Cardio regular rate, regular rhythm, S1 normal heart sound, S2 normal heart sound and no murmurs GI normal to inspection, nondistended, normoactive bowel sounds and soft to palpation GI Narrative: abdomen mildly distended, generalised tenderness. Minimal bowel sounds, no guarding or rebound tenderness. Extremity normal to inspection, full ROM, normal capillary refill, no clubbing, cyanosis or edema and no calf tenderness General Extremity: no tenderness to palpation of joints or extremities Skin General Skin Exam: no breakdown Neuro oriented x3, CN's II-XII intact bilaterally, moves all extremities, no focal motor deficits and no sensory deficits noted Sensorium / Orientation: awake, alert, oriented to person, oriented to place and oriented to time Speech: speech normal Motor Exam: strength 5/5 throughout and general weakness Psych thought process normal, cooperative and affect normal Psych Narrative: looks very uncomfortable. Assessment & Plan Assessment/Plan (1) Generalized weakness: (2) Acute cystitis: QUALIFIERS: Hematuria presence: without hematuria Qualified Code(s): N30.00 - Acute cystitis without hematuria PLAN: Plan #Acute on chronic hypoxic respiratory failure due to Left upper lobe cavitary opacity as well as possible aspiration. * Patient was 2 L of oxygen chronically at home. CT of the chest done on admission for cavitary pulmonary opacity in the left upper lobe measuring about 4.8 cm suspicious for malignancy versus TB * He also had mild reticulonodular opacities in the right lung base and small groundglass nodular opacity in the left lower lobe which may be infectious or inflammatory. * Continue negative pressure room. TB screen pending. On IV vancomycin and Zosyn. * Urine for strep and Legionella negative. Also on IV Solu-Medrol. ID on board. Repeat sputum AFBs still pending * Patient now requiring up to 9L of oxygen. He received golytely yesterday and became nauseous and threw up. I am concerned he may have aspirated. * continue keeping NPO. * sputum cytology was negative for malignancy and special stain for acid fast bacilli was negative for organisms and special stain for fungi was positive for organisms (yeast and pseudohyphae) consistent with Jackelin species * continue broad spectrum antibiotics. * ID on board. Await ID recommendations about stopping precautions based on the cytology report. * #Small partial bowel obstruction * Apparently the colonic mass was seen on his last CT scan but he never followed up with GI. CT of the abdomen and pelvis this time showed 3.2 cm mass in the sigmoid colon as well as thickening of the sigmoid proximal to this possibly from several colitis. * General surgery on board. * GI on board. * had colonoscopy which showed no evidence of a mass or obstruction. COncern now is his symptoms are due to severe constipation. * He had enemas but this does not help with the constipation * goytely also did not help with constipation * CT of the abdomen with contrast today showed distension of hte right hemicolon with gas and large amoung of fecal material, as well as sigmoid diverticulosis. * management as per general surgery. #Cystitis: Currently on IV Zosyn. Urine cultures pending. Blood cultures negative. WBC is down to 9.6. #Hyponatremia: Sodium is now 132 today. Will hydrate with IV fluids and monitor. #Benign essential hypertension: All BP meds on hold as patient is n.p.o. IV hydralazine as needed #History of nicotine dependence: Quit a month ago. Counseled continue abstaining. Nicotine patch as needed #History of alcohol use disorder * says he is to drink about 3-6 beers daily until February 2024. * He had not taken any alcohol since then. * Not in withdrawal. * Counseled to continue abstaining. * DVT prophylaxis: Heparin # Charges/Coding Visit Charges Inpatient E&M: 41468 Subs Hosp L3
--- NOTE | 2024-03-31 13:13 | PCM.PN.ID ---
Physical Exam Narrative Having a lot of abd pain, no fever, breathing ok with some cough/sputum. Const alert and no apparent distress General Appearance: cooperative Resp Auscultation: diminished lung sounds Cardio regular rate and regular rhythm GI soft to palpation; Negative for non-distended Skin no rashes or lesions noted ID ID: Route of nutrition/ use of supplements: [] Nutritional Intake: [] IV Site: [] Enriquez Catheter: [] Assessment & Plan Assessment/Plan (1) Cavitary lesion of lung: PLAN: Seen by pulm. Sputum AFB neg smear x2. Sputum cx not done. More abd pain. CT repeated. Will do vanc/zosyn for now. If abd improves, tentative plan would be long course po doxy, levaquin, flagyl for lung coverage with repeat imaging as outpt to confirm abscess resolution. Will follow (2) COPD (chronic obstructive pulmonary disease):
--- NOTE | 2024-03-31 14:10 | RAD_ITS ---
EXAM: XR Abdomen, 1 View CLINICAL INDICATION: TECHNIQUE: Frontal supine view of the abdomen/pelvis. COMPARISON: No relevant prior studies available. FINDINGS: GASTROINTESTINAL TRACT: Multiple distended colon measuring up to 9.6 cm in diameter. Distal obstruction secondary to constipation is a possibility. BONES/JOINTS: Unremarkable. No acute fracture. RAD/Abdomen Single View (Portable) IMPRESSION: Multiple distended colon measuring up to 9.6 cm in diameter. Distal obstructio n secondary to constipation is a possibility. Reading [facility]
[2024-03-31] MEDS: Piperacil/Tazobactam 3.375 GM in 0.9% Normal Saline (50mL MB+) 50 ML IV ×2 (14:12→20:37)
[2024-04-01] VITALS (13 sets, daily range): BP systolic 144–165; BP diastolic 88–98; PULSE 87–109; RESP 12–24; TEMP 36.2–37.1; O2SAT 94–100; BMI 21.5
[2024-04-01] MEDS: 0.9% Saline Lock 10 ML Syringe IV ×5 (01:15→14:21)
[2024-04-01] MEDS: HYDROmorphone 1 MG/ML Syringe IV ×3 (01:16→10:58)
[2024-04-01] MEDS: Albuterol 2.5 MG/3 ML VIAL.NEB. INHALATION (01:50)
[2024-04-01] MEDS: Vancomycin HCl 1,750 MG in 0.9% Normal Saline (500mL Bag) 500 ML 250 MG IV ×2 (03:49→17:06)
[2024-04-01] MEDS: Piperacil/Tazobactam 3.375 GM in 0.9% Normal Saline (50mL MB+) 50 ML IV ×3 (05:33→20:51)
--- NOTE | 2024-04-01 05:40 | RAD_ITS ---
PROCEDURE: ABDOMEN SINGLE VIEW (PORTABLE) REASON FOR EXAM: Small-bowel obstruction. TECHNIQUE: Single view abdomen. COMPARISON: 03/31/2024. FINDINGS: Gas is present in both large and small bowel. No abnormally distended loops of small bowel on the current study. Tip of the nasogastric tube in the body of the stomach. The bones are unremarkable. RAD/Abdomen Single View (Portable) IMPRESSION: Gas present throughout large and small-bowel without evidence of small-bowel ob struction. Nasogastric tube tip in the body of the stomach. Reading Location: [facility]
[2024-04-01 07:42] LABS: Absolute Lymphocyte Count 0.83 X10^3/uL (0.83-4.51); Absolute Neutrophil Count 7.3 X10^3/uL (2.0-7.7); Basophil# 0.06 X10^3/uL; Basophil% 0.7 % (0-1); Eosinophil# 0.05 X10^3/uL; Eosinophils% 0.5 % (0-5); Hematocrit 30.9 % (40-54); Lymphocyte # 0.83 X10^3/ul (0.83-4.51); Mean Corp Hgb Conc 32.4 g/dL (32-36); Mean Corpuscular Volume 92.8 fL (80-94); Mean Platelet Vol. 8.1 fl (6.2-12.0); Monocyte# 0.89 X10^3/uL; Monocyte% 9.7 % (0-10); NRBC Flagged by Analyzer 0 % (0-5); Neutrophil % 79.4 % (47-70); Platelet Count 446 K/mm3 (150-450); RBC Distribution Width CV 12.3 % (11.6-14.6); RBC Distribution Width SD 41.6 fl (35.1-43.9); Red Blood Count 3.33 M/mm3 (4.6-6.2); White Blood Count 9.2 K/mm3 (4.4-11.0)
[2024-04-01] MEDS: Budesonide Respules 0.5 MG/2 ML AMPUL.NEB. INHALATION ×2 (07:46→19:46)
[2024-04-01] MEDS: Ipratropium/Albuterol Sulfate 3 ML AMPUL.NEB INHALATION ×3 (07:46→19:46)
[2024-04-01 08:04] LABS: Anion Gap 9 (5-15); BUN 9 mg/dL (7-18); Calcium,Total 8.5 mg/dL (8.5-10.1); Chloride 96 mmol/L (98-107); Creatinine, Serum 0.47 mg/dL (0.70-1.30); EST Glomerular Filtration Rate 190 mL/min (>60); Est Glom Filt Rate - Afr Amer 230 mL/min (>60); Estimated Creatinine Clearance 148.21 ml/min; Glucose 86 mg/dL (74-106); Potassium 3.4 mmol/L (3.5-5.1); Sodium Level 136 mmol/L (136-145)
--- NOTE | 2024-04-01 08:43 | PCM.PN.SRG ---
Subjective Subjective The patient still reports he is not passing flatus or stool. Objective Data Objective Data Vital Signs: Vital Signs Temp Pulse Resp BP Pulse Ox O2 Del Method O2 Flow Rate 97.6 F L 98 24 H 144/91 H 98 Nasal Cannula 2.5 04/01/24 03:45 04/01/24 07:46 04/01/24 07:46 04/01/24 03:45 04/01/24 07:46 04/01/24 07:46 04/01/24 07:46 Oxygen Flow Rate (L/min) 2.5 Oxygen Delivery Method Nasal Cannula Weight: 141 lb 12.116 oz Body Mass Index (BMI) 21.5 Intake & Output: Intake and Output for Last 24 Hours 03/30/24 03/31/24 04/01/24 23:59 23:59 23:59 Intake Total 3154 / 3154 2254 / 2254 585 / 585 Output Total 1500 / 1500 1220 / 1220 500 / 500 Balance 1654 / 1654 1034 / 1034 85 / 85 Medical Nutrition Assessment Dietitian: Malnutrition Criteria Met Start: 03/28/24 09:58 Freq: Status: Active Protocol: Document 03/28/24 09:58 SLA (Rec: 03/28/24 09:58 SLA [id number]) Nutrition Malnutrition Evidence of Yes Malnutrition Exists Malnutrition (severe Acute Illness/Injury ): Evidenced By Suboptimal Energy Intake (Severe),Weight Loss (Severe) Clinical Problem Biting/Chewing Difficulty Etiology swallowing related to recent jaw fx 02/28/24 Signs/Symptoms as evidenced by pt self report Status Active Problem Acute Disease or Injury Related Malnutrition Etiology related to recent jaw fx (02/28/24) and inadequate energy intake Signs/Symptoms as evidenced by po intake < 75% of est nutritional needs and unplanned wt loss of ~10% x 1 month Status Active Problem Recommendation Dietitian As medically able, rec DANIELLE to liberal Regular soft and Recommendations/ bite size per pt request Changes As medically able, rec 8 oz chocolate ensure plus high protein tid w/ meals for increased nutrition if consumed. Lab / Micro Data 04/01/24 06:51 04/01/24 06:51 Labs: Laboratory Results - last 24 hr 04/01/24 06:51: WBC 9.2, RBC 3.33 L, Hgb 10.0 L, Hct 30.9 L, MCV 92.8, MCH 30.0, MCHC 32.4, RDW Std Deviation 41.6, RDW Coeff of Pam 12.3, Plt Count 446, MPV 8.1, Immature Gran % (Auto) 0.700, Neut % (Auto) 79.4 H, Lymph % (Auto) 9.0 L, Cannon % (Auto) 9.7, Eos % (Auto) 0.5, Baso % (Auto) 0.7, Absolute Neuts (auto) 7.3, Absolute Lymphs (auto) 0.83, Nucleated RBC % 0, Sodium 136, Potassium 3.4 L, Chloride 96 L, Carbon Dioxide 31.0, Anion Gap 9, BUN 9, Creatinine 0.47 L, Estim Creat Clear Calc 148.21, Est GFR (MDRD) Af Amer 230, Est GFR (MDRD) Non-Af 190, BUN/Creatinine Ratio 19.0, Glucose 86, Calcium 8.5 Micro: Microbiology 03/28/24 01:04 Blood Culture (Wb) - Anticubital Right Blood Culture - Preliminary No growth in 48 hours. 03/28/24 01:00 Blood Culture (Wb) - Anticubital Left Blood Culture - Preliminary No growth in 48 hours. 03/28/24 00:40 Stool Enteric Bacteriology - Final 03/28/24 06:00 Urine, Clean Catch Legionella Antigen - Final 03/28/24 06:00 Urine, Clean Catch Streptococcus pneumoniae Antigen (M - Final 03/28/24 01:02 Mucosa - Nose SARS-CoV-2, Influenza & RSV (PCR) - Final Radiography Diagnostic Testing: Radiology Impression Abdomen/Pelvis CT 03/31/24 07:32 IMPRESSION: Distention of the right hemicolon with gas and large amount of fecal material. Sigmoid diverticulosis. One or more dose reduction techniques were used (e.g., Automated exposure control, adjustment of the mA and/or kV according to patient size, use of iterative reconstruction technique). Reading Location: [facility] KUB X-Ray 03/31/24 14:10 IMPRESSION: Multiple distended colon measuring up to 9.6 cm in diameter. Distal obstruction secondary to constipation is a possibility. Reading Location[facility] 04/01/24 05:40 IMPRESSION: Gas present throughout large and small-bowel without evidence of small-bowel obstruction. Nasogastric tube tip in the body of the stomach. Reading Location: [facility] Physical Exam Const oriented x3 and no apparent distress Resp normal respiratory effort GI soft to palpation Palpation: tender Assessment & Plan Assessment/Plan (1) Constipation: PLAN: Patient has severe constipation. I repeated his CT scan yesterday with oral contrast that showed contrast mated into the cecum and that he has a large amount of stool in the cecum. It appears the stool that was blocked in the sigmoid is gone. We tried more cathartics yesterday with no avail. The patient had NG placed to be due to nausea. Today I will try GoLytely down the NG tube and try to clamp the tube off to see if this reaches his cecum. There is a large amount of stool that needs to pass. The patient may need his narcotics stopped as he is taking a lot of Dilaudid which is slowing his bowels. Continue antibiotics for pneumonia. If the patient tolerates bowel prep and has bowel function we can remove the NG and start clear liquids but if the patient becomes nauseated we will return the NG back to suction. Jordan Ortega MD Pager: [facility] [address] [place] [address], [address] [place] [address] Office:
[2024-04-01] MEDS: Pantoprazole Sodium 40 MG in 0.9% Normal Saline (100mL MB+) 100 ML 330 MG IV ×2 (10:44→20:46)
[2024-04-01] MEDS: Heparin Injection (Vial) 5,000 UNIT/ML VIAL 5000 UNIT SC ×2 (11:02→20:50)
[2024-04-01] MEDS: Electrolyte Solution/Peg's 4000 ML 2000 ML PO (11:03)
--- NOTE | 2024-04-01 11:10 | PCM.PN.ID ---
Physical Exam Narrative Abd feeling better today, no fever, mild cough, no fever Const alert and no apparent distress General Appearance: cooperative Resp Auscultation: diminished lung sounds Cardio regular rate and regular rhythm GI soft to palpation, non-tender and non-distended Skin no rashes or lesions noted ID ID: Route of nutrition/ use of supplements: [] Nutritional Intake: [] IV Site: [] Enriquez Catheter: [] Assessment & Plan Assessment/Plan (1) Cavitary lesion of lung: PLAN: Seen by pulm. Sputum AFB neg smear x2. Sputum cx not done. More abd pain. CT repeated. Will cont vanc/zosyn for now. If abd improves, tentative plan would be long course po doxy, levaquin, flagyl for lung coverage with repeat imaging as outpt to confirm abscess resolution. Ok to remove TB isolation. Will follow (2) COPD (chronic obstructive pulmonary disease):
--- NOTE | 2024-04-01 13:25 | PN_ITS ---
Subjective Subjective Patient seen and examined. He was feeling a bit better today and was down to 4 L from 9 L of oxygen yesterday. He still has not had a bowel movement. Patient is very frustrated with the fact that he does not seem to be improving and says he only just wants to feel better. General surgery was reviewed him today and recommending more bowel prep to help with bowel movement a CT of the abdomen showed large stool burden. He was also taken out of isolation today per ID. Objective Data Objective Data Vital Signs: Vital Signs Temp Pulse Resp BP Pulse Ox O2 Del Method O2 Flow Rate 97.2 F L 92 14 165/98 H 97 Nasal Cannula 4 04/01/24 09:45 04/01/24 12:33 04/01/24 12:33 04/01/24 09:45 04/01/24 12:33 04/01/24 12:33 04/01/24 12:33 Oxygen Flow Rate (L/min) 4 Oxygen Delivery Method Nasal Cannula Weight: 141 lb 12.116 oz Body Mass Index (BMI) 21.5 Intake & Output: Intake and Output for Last 24 Hours 03/30/24 03/31/24 04/01/24 23:59 23:59 23:59 Intake Total 3154 / 3154 2254 / 2254 1225 / 1225 Output Total 1500 / 1500 1220 / 1220 500 / 500 Balance 1654 / 1654 1034 / 1034 725 / 725 Medical Nutrition Assessment Dietitian: Malnutrition Criteria Met Start: 03/28/24 09:58 Freq: Status: Active Protocol: Document 03/28/24 09:58 SLA (Rec: 03/28/24 09:58 SLA [id number]) Nutrition Malnutrition Evidence of Yes Malnutrition Exists Malnutrition (severe Acute Illness/Injury ): Evidenced By Suboptimal Energy Intake (Severe),Weight Loss (Severe) Clinical Problem Biting/Chewing Difficulty Etiology swallowing related to recent jaw fx 02/28/24 Signs/Symptoms as evidenced by pt self report Status Active Problem Acute Disease or Injury Related Malnutrition Etiology related to recent jaw fx (02/28/24) and inadequate energy intake Signs/Symptoms as evidenced by po intake < 75% of est nutritional needs and unplanned wt loss of ~10% x 1 month Status Active Problem Recommendation Dietitian As medically able, rec DANIELLE to liberal Regular soft and Recommendations/ bite size per pt request Changes As medically able, rec 8 oz chocolate ensure plus high protein tid w/ meals for increased nutrition if consumed. Lab / Micro Data 04/01/24 06:51 04/01/24 06:51 Labs: Laboratory Results - last 24 hr 04/01/24 06:51: WBC 9.2, RBC 3.33 L, Hgb 10.0 L, Hct 30.9 L, MCV 92.8, MCH 30.0, MCHC 32.4, RDW Std Deviation 41.6, RDW Coeff of Pam 12.3, Plt Count 446, MPV 8.1, Immature Gran % (Auto) 0.700, Neut % (Auto) 79.4 H, Lymph % (Auto) 9.0 L, [place] % (Auto) 9.7, Eos % (Auto) 0.5, Baso % (Auto) 0.7, Absolute Neuts (auto) 7.3, Absolute Lymphs (auto) 0.83, Nucleated RBC % 0, Sodium 136, Potassium 3.4 L , Chloride 96 L, Carbon Dioxide 31.0, Anion Gap 9, BUN 9, Creatinine 0.47 L, Estim Creat Clear Calc 148.21, Est GFR (MDRD) Af Amer 230, Est GFR (MDRD) Non-Af 190, BUN/Creatinine Ratio 19.0, Glucose 86, Calcium 8.5 Micro: Microbiology 03/28/24 01:04 Blood Culture (Wb) - Anticubital Right Blood Culture - Preliminary No growth in 48 hours. 03/28/24 01:00 Blood Culture (Wb) - Anticubital Left Blood Culture - Preliminary No growth in 48 hours. 03/28/24 00:40 Stool Enteric Bacteriology - Final 03/28/24 06:00 Urine, Clean Catch Legionella Antigen - Final 03/28/24 06:00 Urine, Clean Catch Streptococcus pneumoniae Antigen (M - Final 03/28/24 01:02 Mucosa - Nose SARS-CoV-2, Influenza & RSV (PCR) - Final Radiography Diagnostic Testing: Radiology Impression KUB X-Ray 03/31/24 14:10 IMPRESSION: Multiple distended colon measuring up to 9.6 cm in diameter. Distal obstruction secondary to constipation is a possibility. Reading Location: [facility] KUB X-Ray 04/01/24 05:40 IMPRESSION: Gas present throughout large and small-bowel without evidence of small-bowel obstruction. Nasogastric tube tip in the body of the stomach. Reading Location: [facility] Physical Exam Const alert and oriented x3 Constitutional Narrative: [id number] distress noted with the patient appearing chronically ill and older than his stated age. General Appearance: cooperative and well developed HEENT normocephalic, head/scalp atraumatic, hearing grossly normal bilaterally, moist oral mucous membranes and oropharynx normal Eyes PERRL and EOMs intact bilaterally Neck no lymphadenopathy and supple Lymph Lymphatic: no lymphadenopathy noted Resp Resp Narrative: diminished breath sounds bilaterally, bilateral coarse crackles. On 4L of oxygen today. Cardio regular rate, regular rhythm, S1 normal heart sound, S2 normal heart sound and no murmurs GI GI Narrative: abdomen mildly distended, generalised tenderness. Minimal bowel sounds, no guarding or rebound tenderness. NG tube in situ Extremity normal to inspection, full ROM, normal capillary refill, no clubbing, cyanosis or edema and no calf tenderness General Extremity: no tenderness to palpation of joints or extremities Skin Skin Narrative: Patient has no evidence of rash, abscess, wounds or jaundice. General Skin Exam: no breakdown Neuro oriented x3, CN's II-XII intact bilaterally, moves all extremities, no focal motor deficits and no sensory deficits noted Sensorium / Orientation: awake, alert, oriented to person, oriented to place and oriented to time Speech: speech normal Motor Exam: strength 5/5 throughout and general weakness Psych thought process normal Psych Narrative: looks very uncomfortable and frustrated Mood & Affect: anxious Assessment & Plan Assessment/Plan (1) Generalized weakness: (2) Acute cystitis: QUALIFIERS: Hematuria presence: without hematuria Qualified Code(s): N30.00 - Acute cystitis without hematuria PLAN: Plan #Acute on chronic hypoxic respiratory failure due to Left upper lobe cavitary opacity as well as possible aspiration. * Patient was 2 L of oxygen chronically at home. CT of the chest done on admission for cavitary pulmonary opacity in the left upper lobe measuring about 4.8 cm suspicious for malignancy versus TB * He also had mild reticulonodular opacities in the right lung base and small groundglass nodular opacity in the left lower lobe which may be infectious or inflammatory. * Continue negative pressure room. On IV vancomycin and Zosyn. * Urine for strep and Legionella negative. Also on IV Solu-Medrol. ID on board. Repeat sputum AFBs still pending * Patient now requiring up to 9L of oxygen. He received golytely yesterday and became nauseous and threw up. I am concerned he may have aspirated. * continue keeping NPO. * sputum cytology was negative for malignancy and special stain for acid fast bacilli was negative for organisms and special stain for fungi was positive for organisms (yeast and pseudohyphae) consistent with Jackelin species * continue broad spectrum antibiotics. * ID on board. Patient taken out of isolation today. * #Small partial bowel obstruction * Apparently the colonic mass was seen on his last CT scan but he never followed up with GI. CT of the abdomen and pelvis this time showed 3.2 cm mass in the sigmoid colon as well as thickening of the sigmoid proximal to this possibly from several colitis. * General surgery on board. * GI on board. * had colonoscopy which showed no evidence of a mass or obstruction. COncern now is his symptoms are due to severe constipation. * He had enemas but this does not help with the constipation * goytely also did not help with constipation * CT of the abdomen with contrast yesterday showed distension of hte right hemicolon with gas and large amount of fecal material, as well as sigmoid diverticulosis. * management as per general surgery. Per general surgery to have bowel prep again today. #Cystitis: * Currently on IV Zosyn. Urine cultures pending. Blood cultures negative. * WBC is down to 9.6. Complete a 5 day course of antiibiotics. #Hyponatremia: Resolved. Sodium is 136. #Hypokalemia: Potassium is 3.4. Will replace and trend. #Benign essential hypertension: All BP meds on hold as patient is n.p.o. IV hydralazine as needed #History of nicotine dependence: Quit a month ago. Counseled continue abstaining. Nicotine patch as needed #History of alcohol use disorder * says he is to drink about 3-6 beers daily until February 2024. * He had not taken any alcohol since then. * Not in withdrawal. * Counseled to continue abstaining. * DVT prophylaxis: Heparin # Charges/Coding Visit Charges Inpatient E&M: 72365 Subs Hosp L2
[2024-04-01] MEDS: Ketorolac 15 MG/ML Vial IV ×2 (14:21→20:51)
[2024-04-01] MEDS: Potassium Chloride Oral Tablet 20 MEQ 40 MEQ PO (15:18)
--- NOTE | 2024-04-01 15:50 | CHAPLAIN ---
Type of Pastoral Visit _x__ Initial Visit ___ Follow-up Visit ___ On-call Visit ___ General Patient Visit ___ Spiritual Assessment ___ Family Conference ___ Bereavement ___ Rapid Response ___ Code Blue ___ Other (describe below) Pastoral Care Referral From _x__ Patient ___ Family ___ Nurse ___ Physician ___ Document Advisor ___ Petroleum Production Engineer ___ Other (describe below) Sacrament/Intervention _x__ Active listening ___ Anointing ___ Restorationism ___ Bereavement ___ Communion _x__ Janice exploration ___ _x__ Life review _x__ Prayer ___ Reconciliation ___ Sacrament of Sick _x__ Supportive presence ___ Wedding ___ Other (describe below) Pastoral Comments patient is no longer in isolation; pt has a ng tube inserted; pt sits up when the oxygen furnace operator speaks to him and offers to be present; pt is slow to speak due to his discomfort and tubing; pt admits that he is having difficulty and discouragement since he has been sick for a month; when offering support the patient specifically asks the oxygen furnace operator to just sit with me for a while if you can; gave time to sit at bedside and gave silence and also offered questions on life, coping, janice, and needs; kept the conversation slow as it was difficult for pt to speak clearly; pt admits frustrations; pt acknowledges the great care of his daughter who brought him a Bible because she is really into janice in God and his concern for his who has to do so much right now and is getting worn down; pt welcomes a prayer; pt expresses appreciation for coming to see him today
[2024-04-01] MEDS: Ondansetron 4 MG/2 ML Vial IV (22:55)
[2024-04-02] VITALS (12 sets, daily range): BP systolic 131–147; BP diastolic 81–85; PULSE 76–91; RESP 17–22; TEMP 36.2–37.1; O2SAT 98–100; BMI 21.5
[2024-04-02] MEDS: Ipratropium/Albuterol Sulfate 3 ML AMPUL.NEB INHALATION ×5 (00:22→19:47)
[2024-04-02 03:42] LABS: Absolute Lymphocyte Count 0.84 X10^3/uL (0.83-4.51); Basophil# 0.04 X10^3/uL; Basophil% 0.6 % (0-1); Eosinophil# 0.04 X10^3/uL; Eosinophils% 0.6 % (0-5); Hematocrit 28.4 % (40-54); Hemoglobin 9.1 g/dL (13.0-16.5); Lymphocyte # 0.84 X10^3/ul (0.83-4.51); Lymphocyte % 12.6 % (19-41); Mean Corpuscular Hgb 29.6 pg (27.0-32.0); Mean Corpuscular Volume 92.5 fL (80-94); Mean Platelet Vol. 7.8 fl (6.2-12.0); Monocyte# 0.75 X10^3/uL; Monocyte% 11.2 % (0-10); NRBC Flagged by Analyzer 0 % (0-5); Neutrophil # 4.98 X10^3/uL (2.7-7.7); Neutrophil % 74.6 % (47-70); Platelet Count 362 K/mm3 (150-450); RBC Distribution Width CV 12.2 % (11.6-14.6); RBC Distribution Width SD 41.1 fl (35.1-43.9); Red Blood Count 3.07 M/mm3 (4.6-6.2); White Blood Count 6.7 K/mm3 (4.4-11.0)
[2024-04-02 03:56] LABS: Anion Gap 9 (5-15); BUN 11 mg/dL (7-18); BUN/Creat Ratio 18.1 RATIO (10-20); Calcium,Total 8.5 mg/dL (8.5-10.1); Chloride 97 mmol/L (98-107); Creatinine, Serum 0.61 mg/dL (0.70-1.30); EST Glomerular Filtration Rate 142 mL/min (>60); Est Glom Filt Rate - Afr Amer 172 mL/min (>60); Estimated Creatinine Clearance 114.19 ml/min; Glucose 74 mg/dL (74-106); Sodium Level 138 mmol/L (136-145)
[2024-04-02 03:58] LABS: Vancomycin, Trough Level 26.9 ug/mL (5.0-15.0)
--- NOTE | 2024-04-02 04:03 | PCM.RX.CS ---
Consult Antibiotic Management Pharmacy has been consulted to manage selected antibiotic: Vancomycin Type of Intervention Type of Consult: Follow-up Labs Labs: Sodium 138 mmol/L (136-145) 04/02/24 03:33 Potassium 3.0 mmol/L (3.5-5.1) L 04/02/24 03:33 Chloride 97 mmol/L (98-107) L 04/02/24 03:33 Carbon Dioxide 32.0 mmol/L (21.0-32.0) 04/02/24 03:33 Anion Gap 9 (5-15) 04/02/24 03:33 BUN 11 mg/dL (7-18) 04/02/24 03:33 Creatinine 0.61 mg/dL (0.70-1.30) L 04/02/24 03:33 Est GFR (MDRD) Af Amer 172 mL/min (>60) 04/02/24 03:33 Est GFR (MDRD) Non-Af 142 mL/min (>60) 04/02/24 03:33 BUN/Creatinine Ratio 18.1 RATIO (10-20) 04/02/24 03:33 Glucose 74 mg/dL (74-106) 04/02/24 03:33 Vancomycin Trough 26.9 ug/mL (5.0-15.0) H 04/02/24 03:33 Random Vancomycin 11.4 ug/mL (0.0-15.0) 03/29/24 13:38 Microbiology Microbiology: Microbiology 03/28/24 01:04 Blood Culture (Wb) - Anticubital Right Blood Culture - Preliminary No growth in 48 hours. 03/28/24 01:00 Blood Culture (Wb) - Anticubital Left Blood Culture - Preliminary No growth in 48 hours. 03/28/24 00:40 Stool Enteric Bacteriology - Final 03/28/24 06:00 Urine, Clean Catch Legionella Antigen - Final 03/28/24 06:00 Urine, Clean Catch Streptococcus pneumoniae Antigen (M - Final 03/28/24 01:02 Mucosa - Nose SARS-CoV-2, Influenza & RSV (PCR) - Final Goal Trough Goal Trough: 15-20 mcg/mL Pharmacy Plan for Drug Dosing Pharmacy Plan for Drug Dosing: Pharmacy Service will continue to monitor and adjust dosing as required. TROUGH 26.9 @ 10.5 HOURS. HOLD DOSE AND DRAW RANDOM LEVEL IN 12 HOURS Follow-Up Labs Follow-Up Labs: Trough: Vancomycin Date/Time Labs Ordered Labs to be done on [date and time ordered]: 04/02 @ 1530 RANDOM
[2024-04-02] MEDS: Piperacil/Tazobactam 3.375 GM in 0.9% Normal Saline (50mL MB+) 50 ML IV ×3 (04:28→21:26)
[2024-04-02] MEDS: Ketorolac 15 MG/ML Vial IV ×3 (04:28→21:26)
--- NOTE | 2024-04-02 06:40 | PN.SURG_ITS ---
Subjective Subjective Patient had bowel function overnight. He had 4 bowel movements. He reports his abdomen is not very tender this morning. Objective Data Objective Data Vital Signs: Vital Signs Temp Pulse Resp BP Pulse Ox O2 Del Method O2 Flow Rate 98.0 F 86 18 147/84 H 100 Nasal Cannula 3 04/02/24 02:55 04/02/24 04:00 04/02/24 03:18 04/02/24 02:55 04/02/24 03:20 04/02/24 03:20 04/02/24 03:20 Oxygen Flow Rate (L/min) 3 Oxygen Delivery Method Nasal Cannula Weight: 141 lb 8.588 oz Body Mass Index (BMI) 21.5 Intake & Output: Intake and Output for Last 24 Hours 03/31/24 04/01/24 04/02/24 23:59 23:59 23:59 Intake Total 2254 / 2254 2045 / 2045 50 / 50 Output Total 1220 / 1220 500 / 500 750 / 750 Balance 1034 / 1034 1545 / 1545 -700 / -700 Medical Nutrition Assessment Dietitian: Malnutrition Criteria Met Start: 03/28/24 09:58 Freq: Status: Active Protocol: Document 03/28/24 09:58 SLA (Rec: 03/28/24 09:58 SLA [id number]) Nutrition Malnutrition Evidence of Yes Malnutrition Exists Malnutrition (severe Acute Illness/Injury ): Evidenced By Suboptimal Energy Intake (Severe),Weight Loss (Severe) Clinical Problem Biting/Chewing Difficulty Etiology swallowing related to recent jaw fx 02/28/24 Signs/Symptoms as evidenced by pt self report Status Active Problem Acute Disease or Injury Related Malnutrition Etiology related to recent jaw fx (02/28/24) and inadequate energy intake Signs/Symptoms as evidenced by po intake < 75% of est nutritional needs and unplanned wt loss of ~10% x 1 month Status Active Problem Recommendation Dietitian As medically able, rec DANIELLE to liberal Regular soft and Recommendations/ bite size per pt request Changes As medically able, rec 8 oz chocolate ensure plus high protein tid w/ meals for increased nutrition if consumed. Lab / Micro Data 04/02/24 03:33 04/02/24 03:33 Labs: Laboratory Results - last 24 hr 04/01/24 06:51: WBC 9.2, RBC 3.33 L, Hgb 10.0 L, Hct 30.9 L, MCV 92.8, MCH 30.0, MCHC 32.4, RDW Std Deviation 41.6, RDW Coeff of Pam 12.3, Plt Count 446, MPV 8.1, Immature Gran % (Auto) 0.700, Neut % (Auto) 79.4 H, Lymph % (Auto) 9.0 L, [place] % (Auto) 9.7, Eos % (Auto) 0.5, Baso % (Auto) 0.7, Absolute Neuts (auto) 7.3, Absolute Lymphs (auto) 0.83, Nucleated RBC % 0, Sodium 136, Potassium 3.4 L , Chloride 96 L, Carbon Dioxide 31.0, Anion Gap 9, BUN 9, Creatinine 0.47 L, Estim Creat Clear Calc 148.21, Est GFR (MDRD) Af Amer 230, Est GFR (MDRD) Non-Af 190, BUN/Creatinine Ratio 19.0, Glucose 86, Calcium 8.5 04/02/24 03:33: WBC 6.7, RBC 3.07 L, Hgb 9.1 L, Hct 28.4 L, MCV 92.5, MCH 29.6, MCHC 32.0, RDW Std Deviation 41.1, RDW Coeff of Pam 12.2, Plt Count 362, MPV 7.8, Immature Gran % (Auto) 0.400, Neut % (Auto) 74.6 H, Lymph % (Auto) 12.6 L, [place] % (Auto) 11.2 H, Eos % (Auto) 0.6, Baso % (Auto) 0.6, Absolute Neuts (auto) 5.0, Absolute Lymphs (auto) 0.84, Nucleated RBC % 0, Sodium 138, Potassium 3.0 L , Chloride 97 L, Carbon Dioxide 32.0, Anion Gap 9, BUN 11, Creatinine 0.61 L, Estim Creat Clear Calc 114.19, Est GFR (MDRD) Af Amer 172, Est GFR (MDRD) Non-Af 142, BUN/Creatinine Ratio 18.1, Glucose 74, Calcium 8.5, Vancomycin Trough 26.9 H Micro: Microbiology 03/28/24 01:04 Blood Culture (Wb) - Anticubital Right Blood Culture - Preliminary No growth in 48 hours. 03/28/24 01:00 Blood Culture (Wb) - Anticubital Left Blood Culture - Preliminary No growth in 48 hours. 03/28/24 00:40 Stool Enteric Bacteriology - Final 03/28/24 06:00 Urine, Clean Catch Legionella Antigen - Final 03/28/24 06:00 Urine, Clean Catch Streptococcus pneumoniae Antigen (M - Final 03/28/24 01:02 Mucosa - Nose SARS-CoV-2, Influenza & RSV (PCR) - Final Physical Exam Const oriented x3 and no apparent distress Resp normal respiratory effort GI soft to palpation Palpation: tender Assessment & Plan Assessment/Plan (1) Constipation: PLAN: Patient had bowel movement after another bowel prep. I will remove his NG and start clear liquids to see how he tolerates this. Jordan Ortega MD Pager: [facility] [address] [place] [address], [address] [place] [address] Office:
[2024-04-02] MEDS: Budesonide Respules 0.5 MG/2 ML AMPUL.NEB. INHALATION ×2 (07:23→19:48)
[2024-04-02] MEDS: Pantoprazole Sodium 40 MG in 0.9% Normal Saline (100mL MB+) 100 ML 330 MG IV ×2 (10:31→21:25)
[2024-04-02] MEDS: Potassium Chloride 10mEq/100mL 10 MEQ/100 ML IV.SOLN. 100 MEQ IV BOLUS ×4 (10:34→15:46)
[2024-04-02] MEDS: Heparin Injection (Vial) 5,000 UNIT/ML VIAL 5000 UNIT SC ×2 (10:36→21:27)
--- NOTE | 2024-04-02 12:16 | PN_ITS ---
Subjective Subjective Patient seen and examined. His was by his bedside. He still having NG tube in situ. He complained of feeling very thirsty and said he had been told by general surgery that he could have the NG tube removed and to be started on clear liquids and ice chips. He had several bowel movements overnight. This has helped with his abdominal pain. He is also out of precautions of the TB test was negative. He is down to 2 L of oxygen. Objective Data Objective Data Vital Signs: Vital Signs Temp Pulse Resp BP Pulse Ox O2 Del Method O2 Flow Rate 97.1 F L 77 18 137/85 H 98 Nasal Cannula 2 04/02/24 10:29 04/02/24 10:29 04/02/24 10:29 04/02/24 10:04/02/24 10:04/02/24 10:04/02/24 10:29 Oxygen Flow Rate (L/min) 2 Oxygen Delivery Method Nasal Cannula Weight: 141 lb 8.588 oz Body Mass Index (BMI) 21.5 Intake & Output: Intake and Output for Last 24 Hours 03/31/24 04/01/24 04/02/24 23:59 23:59 23:59 Intake Total 2254 / 2254 2045 / 2045 210 / 210 Output Total 1220 / 1220 500 / 500 750 / 750 Balance 1034 / 1034 1545 / 1545 -540 / -540 Medical Nutrition Assessment Dietitian: Malnutrition Criteria Met Start: 03/28/24 09:58 Freq: Status: Active Protocol: Document 03/28/24 09:58 KRISHAN (Rec: 03/28/24 09:58 SLA [id number]) Nutrition Malnutrition Evidence of Yes Malnutrition Exists Malnutrition (severe Acute Illness/Injury ): Evidenced By Suboptimal Energy Intake (Severe),Weight Loss (Severe) Clinical Problem Biting/Chewing Difficulty Etiology swallowing related to recent jaw fx 02/28/24 Signs/Symptoms as evidenced by pt self report Status Active Problem Acute Disease or Injury Related Malnutrition Etiology related to recent jaw fx (02/28/24) and inadequate energy intake Signs/Symptoms as evidenced by po intake < 75% of est nutritional needs and unplanned wt loss of ~10% x 1 month Status Active Problem Recommendation Dietitian As medically able, rec DANIELLE to liberal Regular soft and Recommendations/ bite size per pt request Changes As medically able, rec 8 oz chocolate ensure plus high protein tid w/ meals for increased nutrition if consumed. Lab / Micro Data 04/02/24 03:33 04/02/24 03:33 Labs: Laboratory Results - last 24 hr 04/02/24 03:33: WBC 6.7, RBC 3.07 L, Hgb 9.1 L, Hct 28.4 L, MCV 92.5, MCH 29.6, MCHC 32.0, RDW Std Deviation 41.1, RDW Coeff of Pam 12.2, Plt Count 362, MPV 7.8, Immature Gran % (Auto) 0.400, Neut % (Auto) 74.6 H, Lymph % (Auto) 12.6 L, [place] % (Auto) 11.2 H, Eos % (Auto) 0.6, Baso % (Auto) 0.6, Absolute Neuts (auto) 5.0, Absolute Lymphs (auto) 0.84, Nucleated RBC % 0, Sodium 138, Potassium 3.0 L , Chloride 97 L, Carbon Dioxide 32.0, Anion Gap 9, BUN 11, Creatinine 0.61 L, Estim Creat Clear Calc 114.19, Est GFR (MDRD) Af Amer 172, Est GFR (MDRD) Non-Af 142, BUN/Creatinine Ratio 18.1, Glucose 74, Calcium 8.5, Vancomycin Trough 26.9 H Micro: Microbiology 03/28/24 01:04 Blood Culture (Wb) - Anticubital Right Blood Culture - Final No growth in 5 days. 03/28/24 01:00 Blood Culture (Wb) - Anticubital Left Blood Culture - Final No growth in 5 days. 03/28/24 00:40 Stool Enteric Bacteriology - Final 03/28/24 06:00 Urine, Clean Catch Legionella Antigen - Final 03/28/24 06:00 Urine, Clean Catch Streptococcus pneumoniae Antigen (M - Final 03/28/24 01:02 Mucosa - Nose SARS-CoV-2, Influenza & RSV (PCR) - Final Physical Exam Const alert and oriented x3 Constitutional Narrative: looks older than stated age. frail. General Appearance: cooperative HEENT normocephalic, head/scalp atraumatic and hearing grossly normal bilaterally HEENT Narrative: NG tube in situ Mouth: dry mucous membranes Eyes PERRL and EOMs intact bilaterally Neck no lymphadenopathy and supple Lymph Lymphatic: no lymphadenopathy noted Resp Resp Narrative: diminished breath sounds bilaterally, bilateral coarse crackles. Now down to 2L of oxygen today. Cardio regular rate, regular rhythm, S1 normal heart sound, S2 normal heart sound and no murmurs GI GI Narrative: abdomen mildly distended,abdominal tenderness has improved. NG tube in situ. Extremity normal to inspection, full ROM, normal capillary refill, no clubbing, cyanosis or edema and no calf tenderness General Extremity: no tenderness to palpation of joints or extremities Skin General Skin Exam: no breakdown Neuro oriented x3, CN's II-XII intact bilaterally, moves all extremities, no focal motor deficits and no sensory deficits noted Sensorium / Orientation: awake, alert, oriented to person, oriented to place and oriented to time Speech: speech normal Motor Exam: strength 5/5 throughout and general weakness Psych Psych Narrative: patient frustrated that NG tube is still in situ Mood & Affect: anxious Assessment & Plan Assessment/Plan (1) Generalized weakness: (2) Acute cystitis: QUALIFIERS: Hematuria presence: without hematuria Qualified Code(s): N30.00 - Acute cystitis without hematuria PLAN: Plan #Acute on chronic hypoxic respiratory failure due to Left upper lobe cavitary opacity as well as possible aspiration. * Patient on 2 L of oxygen chronically at home. CT of the chest done on admission for cavitary pulmonary opacity in the left upper lobe measuring about 4.8 cm suspicious for malignancy versus TB * He also had mild reticulonodular opacities in the right lung base and small groundglass nodular opacity in the left lower lobe which may be infectious or inflammatory. * Continue negative pressure room. On IV vancomycin and Zosyn. * Urine for strep and Legionella negative. Also on IV Solu-Medrol. ID on board. * sputum cytology was negative for malignancy and special stain for acid fast bacilli was negative for organisms and special stain for fungi was positive for organisms (yeast and pseudohyphae) consistent with Jackelin species * continue broad spectrum antibiotics. * ID on board. Patient taken out of isolation yesterday * remains on IV zosyn and vancomycin. management of antibiotics as per ID. * #Small partial bowel obstruction * Apparently the colonic mass was seen on his last CT scan but he never followed up with GI. CT of the abdomen and pelvis this time showed 3.2 cm mass in the sigmoid colon as well as thickening of the sigmoid proximal to this possibly from several colitis. * General surgery on board. * GI on board. * had colonoscopy which showed no evidence of a mass or obstruction. COncern now is his symptoms are due to severe constipation. * He had enemas but this does not help with the constipation * goytely also did not help with constipation * CT of the abdomen with contrast showed distension of the right hemicolon with gas and large amount of fecal material, as well as sigmoid diverticulosis. * Patient finally had several large bowel movements overnight. * management as per general surgery. Per general surgery to have bowel prep again today. #Cystitis: * Currently on IV Zosyn. * leucocytosis has resolved. #Hyponatremia: Resolved. #Hypokalemia: Potassium is 3 today. Will replace and monitor #Benign essential hypertension: All BP meds on hold as patient is n.p.o. IV hydralazine as needed #History of nicotine dependence: Quit a month ago. Counseled to continue abstaining. Nicotine patch as needed #History of alcohol use disorder * says he is to drink about 3-6 beers daily until February 2024. * He had not taken any alcohol since then. * Not in withdrawal. * Counseled to continue abstaining. * DVT prophylaxis: Heparin
--- NOTE | 2024-04-02 12:41 | PCM.PN.ID ---
Physical Exam Narrative Feeling ok today, some cough, still abd pain, no fever Const alert and no apparent distress General Appearance: cooperative Resp Auscultation: diminished lung sounds Cardio regular rate and regular rhythm GI soft to palpation GI Narrative: some distension and soreness Skin no rashes or lesions noted ID ID: Route of nutrition/ use of supplements: [] Nutritional Intake: [] IV Site: [] Enriquez Catheter: [] Assessment & Plan Assessment/Plan (1) Cavitary lesion of lung: PLAN: Seen by pulm. Sputum AFB neg smear x2. Sputum cx not done. Still some abd pain. CT repeated. Will cont vanc/zosyn for now. If abd improves, tentative plan would be 4 weeks of po doxy 100mg bid, levaquin 500mg daily, flagyl 500mg tid for lung coverage with repeat imaging as outpt to confirm abscess resolution. Will follow (2) COPD (chronic obstructive pulmonary disease):
[2024-04-02] MEDS: oxyCODONE 5 MG Tablet PO (14:36)
[2024-04-02 16:38] LABS: Vancomycin, Random Level 16.8 ug/mL (0.0-15.0)
--- NOTE | 2024-04-02 16:56 | PCM.RX.CS ---
Consult Antibiotic Management Pharmacy has been consulted to manage selected antibiotic: Vancomycin Type of Intervention Type of Consult: Follow-up Labs Labs: Sodium 138 mmol/L (136-145) 04/02/24 03:33 Potassium 3.0 mmol/L (3.5-5.1) L 04/02/24 03:33 Chloride 97 mmol/L (98-107) L 04/02/24 03:33 Carbon Dioxide 32.0 mmol/L (21.0-32.0) 04/02/24 03:33 Anion Gap 9 (5-15) 04/02/24 03:33 BUN 11 mg/dL (7-18) 04/02/24 03:33 Creatinine 0.61 mg/dL (0.70-1.30) L 04/02/24 03:33 Est GFR (MDRD) Af Amer 172 mL/min (>60) 04/02/24 03:33 Est GFR (MDRD) Non-Af 142 mL/min (>60) 04/02/24 03:33 BUN/Creatinine Ratio 18.1 RATIO (10-20) 04/02/24 03:33 Glucose 74 mg/dL (74-106) 04/02/24 03:33 Vancomycin Trough 26.9 ug/mL (5.0-15.0) H 04/02/24 03:33 Random Vancomycin 16.8 ug/mL (0.0-15.0) H 04/02/24 15:29 Microbiology Microbiology: Microbiology 03/28/24 01:04 Blood Culture (Wb) - Anticubital Right Blood Culture - Final No growth in 5 days. 03/28/24 01:00 Blood Culture (Wb) - Anticubital Left Blood Culture - Final No growth in 5 days. 03/28/24 00:40 Stool Enteric Bacteriology - Final 03/28/24 06:00 Urine, Clean Catch Legionella Antigen - Final 03/28/24 06:00 Urine, Clean Catch Streptococcus pneumoniae Antigen (M - Final 03/28/24 01:02 Mucosa - Nose SARS-CoV-2, Influenza & RSV (PCR) - Final Pharmacy Plan for Drug Dosing Pharmacy Plan for Drug Dosing: VANCOMYCIN LEVEL RECEIVED Current Vancomycin Dose: On hold, previously 1750mg q12 Number of Doses Received: 10 Vancomycin Level: 26.9 mg/dl Hours Since Last Dose: 22.5 Renal Function: SCr 0.61 mg/dL Renal Function Trend: stable Lab/Micro: cx pending Vancomycin Plan/Comments: 22.5 hour random level is now therapeutic at 16.8 mg/dL (goal 15-20). Will start dosing at 1250mg Q12 and get a level prior to 4th dose. Pending Level: 04/04/24 @ 4154 Pharmacy Service will continue to monitor and adjust dosing as required.
[2024-04-02] MEDS: Vancomycin HCl 1,250 MG in 0.9% Normal Saline (250mL Bag) 250 ML 167 MG IV (17:46)
[2024-04-02] MEDS: Dicyclomine 10 MG Capsule 20 MG PO (23:58)
[2024-04-03] VITALS (9 sets, daily range): BP systolic 138–162; BP diastolic 88–99; PULSE 78–91; RESP 18–24; TEMP 36–37.2; O2SAT 94–99; BMI 22.3
[2024-04-03] MEDS: Ipratropium/Albuterol Sulfate 3 ML AMPUL.NEB INHALATION ×4 (01:12→19:05)
[2024-04-03] MEDS: Vancomycin HCl 1,250 MG in 0.9% Normal Saline (250mL Bag) 250 ML 167 MG IV (04:32)
[2024-04-03] MEDS: Ketorolac 15 MG/ML Vial IV ×2 (05:02→19:52)
[2024-04-03] MEDS: 0.9% Saline Lock 10 ML Syringe IV ×2 (05:02→19:51)
[2024-04-03] MEDS: oxyCODONE 5 MG Tablet PO (06:37)
[2024-04-03] MEDS: Budesonide Respules 0.5 MG/2 ML AMPUL.NEB. INHALATION ×2 (06:58→19:05)
[2024-04-03] MEDS: Piperacil/Tazobactam 3.375 GM in 0.9% Normal Saline (50mL MB+) 50 ML IV ×3 (07:12→23:06)
[2024-04-03 07:17] LABS: Absolute Lymphocyte Count 0.97 X10^3/uL (0.83-4.51); Absolute Neutrophil Count 4.4 X10^3/uL (2.0-7.7); Basophil# 0.05 X10^3/uL; Basophil% 0.8 % (0-1); Eosinophil# 0.16 X10^3/uL; Eosinophils% 2.6 % (0-5); Hematocrit 31.2 % (40-54); Hemoglobin 9.9 g/dL (13.0-16.5); Lymphocyte # 0.97 X10^3/ul (0.83-4.51); Lymphocyte % 15.5 % (19-41); Mean Corp Hgb Conc 31.7 g/dL (32-36); Mean Corpuscular Hgb 29.2 pg (27.0-32.0); Mean Platelet Vol. 8.2 fl (6.2-12.0); Monocyte# 0.69 X10^3/uL; NRBC Flagged by Analyzer 0 % (0-5); Neutrophil # 4.37 X10^3/uL (2.7-7.7); Neutrophil % 69.6 % (47-70); Platelet Count 416 K/mm3 (150-450); RBC Distribution Width CV 12.2 % (11.6-14.6); RBC Distribution Width SD 41.1 fl (35.1-43.9); Red Blood Count 3.39 M/mm3 (4.6-6.2); White Blood Count 6.3 K/mm3 (4.4-11.0)
[2024-04-03 07:36] LABS: Anion Gap 5 (5-15); BUN 10 mg/dL (7-18); BUN/Creat Ratio 11.9 RATIO (10-20); Calcium,Total 8.5 mg/dL (8.5-10.1); Chloride 97 mmol/L (98-107); Creatinine, Serum 0.84 mg/dL (0.70-1.30); EST Glomerular Filtration Rate 98 mL/min (>60); Est Glom Filt Rate - Afr Amer 118 mL/min (>60); Estimated Creatinine Clearance 85.76 ml/min; Glucose 108 mg/dL (74-106); Sodium Level 136 mmol/L (136-145)
--- NOTE | 2024-04-03 10:50 | RAD_ITS ---
PROCEDURE: Abdomen radiographs REASON FOR EXAM: Pain, obstruction TECHNIQUE: Five views of the abdomen and pelvis COMPARISON: None FINDINGS: Multiple mildly dilated small and large bowel loops scattered throughout the abdomen. Fluid level in the cecum. Findings may relate to generalized ileus and/or underlying enteritis. No gross pneumoperitoneum. No suspicious intra-abdominal calcifications within the limits of overlying stool and bowel gas. Small layering right pleural effusion. Degenerative changes of the spine. RAD/Abd Decub and/or Erect(Portabl IMPRESSION: See above Reading Location: [facility]
--- NOTE | 2024-04-03 10:51 | PN.SURG_ITS ---
Subjective Subjective Patient seen and examined during AM rounds. He is found sitting out of bed in the chair. He states that he was becoming confused with his days and nights given his erratic sleep schedule and tried to push himself to be out of bed in the chair. He reports that he is doing okay with a liquid diet denies any nausea but does complain of abdominal spasms. He reports a liquid bowel movement overnight but minimal flatus. Lastly he remarks that he is still much tighter than normal Objective Data Objective Data Vital Signs: Vital Signs Temp Pulse Resp BP Pulse Ox O2 Del Method O2 Flow Rate 96.8 F L 78 20 H 149/96 H 96 Nasal Cannula 2 04/03/24 04:41 04/03/24 06:58 04/03/24 06:58 04/03/24 04:41 04/03/24 06:58 04/03/24 06:58 04/03/24 06:58 Oxygen Flow Rate (L/min) 2 Oxygen Delivery Method Nasal Cannula Weight: 146 lb 9.718 oz Body Mass Index (BMI) 22.3 Intake & Output: Intake and Output for Last 24 Hours 04/01/24 04/02/24 04/03/24 23:59 23:59 23:59 Intake Total 2045 / 2045 1660 / 1660 710 / 710 Output Total 500 / 500 752 / 1052 600 / 600 Balance 1545 / 1545 908 / 608 110 / 110 Medical Nutrition Assessment Dietitian: Malnutrition Criteria Met Start: 03/28/24 09:58 Freq: Status: Active Protocol: Document 03/28/24 09:58 SLA (Rec: 03/28/24 09:58 SLA [id number]) Nutrition Malnutrition Evidence of Yes Malnutrition Exists Malnutrition (severe Acute Illness/Injury ): Evidenced By Suboptimal Energy Intake (Severe),Weight Loss (Severe) Clinical Problem Biting/Chewing Difficulty Etiology swallowing related to recent jaw fx 02/28/24 Signs/Symptoms as evidenced by pt self report Status Active Problem Acute Disease or Injury Related Malnutrition Etiology related to recent jaw fx (02/28/24) and inadequate energy intake Signs/Symptoms as evidenced by po intake < 75% of est nutritional needs and unplanned wt loss of ~10% x 1 month Status Active Problem Recommendation Dietitian As medically able, rec DANIELLE to liberal Regular soft and Recommendations/ bite size per pt request Changes As medically able, rec 8 oz chocolate ensure plus high protein tid w/ meals for increased nutrition if consumed. Lab / Micro Data 04/03/24 06:30 04/03/24 06:30 Labs: Laboratory Results - last 24 hr 04/02/24 15:29: Random Vancomycin 16.8 H 04/03/24 06:30: WBC 6.3, RBC 3.39 L, Hgb 9.9 L, Hct 31.2 L, MCV 92.0, MCH 29.2, MCHC 31.7 L, RDW Std Deviation 41.1, RDW Coeff of Pam 12.2, Plt Count 416, MPV 8.2, Immature Gran % (Auto) 0.500, Neut % (Auto) 69.6, Lymph % (Auto) 15.5 L, M [place] % (Auto) 11.0 H, Eos % (Auto) 2.6, Baso % (Auto) 0.8, Absolute Neuts (auto) 4.4, Absolute Lymphs (auto) 0.97, Nucleated RBC % 0, Sodium 136, Potassium 3.0 L , Chloride 97 L, Carbon Dioxide 34.0 H, Anion Gap 5, BUN 10, Creatinine 0.84, Estim Creat Clear Calc 85.76, Est GFR (MDRD) Af Amer 118, Est GFR (MDRD) Non-Af 98, BUN/Creatinine Ratio 11.9, Glucose 108 H, Calcium 8.5 Micro: Microbiology 03/28/24 01:04 Blood Culture (Wb) - Anticubital Right Blood Culture - Final No growth in 5 days. 03/28/24 01:00 Blood Culture (Wb) - Anticubital Left Blood Culture - Final No growth in 5 days. 03/28/24 00:40 Stool Enteric Bacteriology - Final 03/28/24 06:00 Urine, Clean Catch Legionella Antigen - Final 03/28/24 06:00 Urine, Clean Catch Streptococcus pneumoniae Antigen (M - Final 03/28/24 01:02 Mucosa - Nose SARS-CoV-2, Influenza & RSV (PCR) - Final Physical Exam Const oriented x3 Constitutional Narrative: Mild distress from abdominal discomfort and length of hospital stay Resp normal respiratory effort GI GI Narrative: Distended, minimally tender to palpation, tympanic (mildly) left greater than right Assessment & Plan Assessment/Plan (1) Constipation: PLAN: Patient with ongoing bowel movements but minimal flatus. He remains distended and complaining of what sounds like gas pains. I am concerned about his ongoing use of narcotic for his abdominal pains as I find this to be counterproductive and have advised patient is much. I have thus discontinued narcotics on the APR and added acetaminophen and a K-pad. Will check KUB today as it has been 48 hours since his last imaging. 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 Will thus need to optimize electrolytes in addition to minimizing narcotics. Replacement potassium already ordered by hospitalist service. Planning to begin daily suppository to try to stimulate ongoing colonic motility. Francis Ashraf MD General Surgery Endocrine Surgery Pager: [facility] [address] [place] [address], [facility], [address] [place] [address] Office: [phone] Charges/Coding Visit Charges Inpatient E&M: 55432 Subs Hosp L2
[2024-04-03] MEDS: Potassium Chloride Oral Tablet 20 MEQ 40 MEQ PO (11:21)
[2024-04-03] MEDS: Dicyclomine 10 MG Capsule 20 MG PO ×2 (11:21→17:50)
[2024-04-03] MEDS: Heparin Injection (Vial) 5,000 UNIT/ML VIAL 5000 UNIT SC ×2 (11:22→21:41)
[2024-04-03] MEDS: Bisacodyl 10 MG Suppository RC (11:49)
--- NOTE | 2024-04-03 12:16 | PN_ITS ---
Subjective Subjective Patient seen and examined. Still complain of some abdominal discomfort. He did have another bowel movement overnight. He is down to 2 L of oxygen. Review of systems otherwise negative. Objective Data Objective Data Vital Signs: Vital Signs Temp Pulse Resp BP Pulse Ox O2 Del Method O2 Flow Rate 97.7 F L 80 18 162/99 H 99 Nasal Cannula 2 04/03/24 08:40 04/03/24 08:40 04/03/24 08:40 04/03/24 08:40 04/03/24 08:40 04/03/24 11:14 04/03/24 11:14 Oxygen Flow Rate (L/min) 2 Oxygen Delivery Method Nasal Cannula Weight: 146 lb 9.718 oz Body Mass Index (BMI) 22.3 Intake & Output: Intake and Output for Last 24 Hours 04/01/24 04/02/24 04/03/24 23:59 23:59 23:59 Intake Total 2045 / 2045 1660 / 1660 710 / 710 Output Total 500 / 500 752 / 1052 600 / 600 Balance 1545 / 1545 908 / 608 110 / 110 Medical Nutrition Assessment Dietitian: Malnutrition Criteria Met Start: 03/28/24 09:58 Freq: Status: Active Protocol: Document 03/28/24 09:58 SLA (Rec: 03/28/24 09:58 [facility] [id number]) Nutrition Malnutrition Evidence of Yes Malnutrition Exists Malnutrition (severe Acute Illness/Injury ): Evidenced By Suboptimal Energy Intake (Severe),Weight Loss (Severe) Clinical Problem Biting/Chewing Difficulty Etiology swallowing related to recent jaw fx 02/28/24 Signs/Symptoms as evidenced by pt self report Status Active Problem Acute Disease or Injury Related Malnutrition Etiology related to recent jaw fx (02/28/24) and inadequate energy intake Signs/Symptoms as evidenced by po intake < 75% of est nutritional needs and unplanned wt loss of ~10% x 1 month Status Active Problem Recommendation Dietitian As medically able, rec DANIELLE to liberal Regular soft and Recommendations/ bite size per pt request Changes As medically able, rec 8 oz chocolate ensure plus high protein tid w/ meals for increased nutrition if consumed. Lab / Micro Data 04/03/24 06:30 04/03/24 06:30 Labs: Laboratory Results - last 24 hr 04/02/24 15:29: Random Vancomycin 16.8 H 04/03/24 06:30: WBC 6.3, RBC 3.39 L, Hgb 9.9 L, Hct 31.2 L, MCV 92.0, MCH 29.2, MCHC 31.7 L, RDW Std Deviation 41.1, RDW Coeff of Pam 12.2, Plt Count 416, MPV 8.2, Immature Gran % (Auto) 0.500, Neut % (Auto) 69.6, Lymph % (Auto) 15.5 L, M [place] % (Auto) 11.0 H, Eos % (Auto) 2.6, Baso % (Auto) 0.8, Absolute Neuts (auto) 4.4, Absolute Lymphs (auto) 0.97, Nucleated RBC % 0, Sodium 136, Potassium 3.0 L , Chloride 97 L, Carbon Dioxide 34.0 H, Anion Gap 5, BUN 10, Creatinine 0.84, Estim Creat Clear Calc 85.76, Est GFR (MDRD) Af Amer 118, Est GFR (MDRD) Non-Af 98, BUN/Creatinine Ratio 11.9, Glucose 108 H, Calcium 8.5 Micro: Microbiology 03/28/24 01:04 Blood Culture (Wb) - Anticubital Right Blood Culture - Final No growth in 5 days. 03/28/24 01:00 Blood Culture (Wb) - Anticubital Left Blood Culture - Final No growth in 5 days. 03/28/24 00:40 Stool Enteric Bacteriology - Final 03/28/24 06:00 Urine, Clean Catch Legionella Antigen - Final 03/28/24 06:00 Urine, Clean Catch Streptococcus pneumoniae Antigen (M - Final 03/28/24 01:02 Mucosa - Nose SARS-CoV-2, Influenza & RSV (PCR) - Final Radiography Diagnostic Testing: Radiology Impression Abdomen X-Ray 04/03/24 10:50 IMPRESSION: See above Reading Location: [facility] Physical Exam Const alert and oriented x3 Constitutional Narrative: looks older than stated age. frail. General Appearance: cooperative HEENT normocephalic, head/scalp atraumatic, hearing grossly normal bilaterally, moist oral mucous membranes and oropharynx normal Eyes PERRL and EOMs intact bilaterally Neck no lymphadenopathy and supple Lymph Lymphatic: no lymphadenopathy noted Resp Resp Narrative: diminished breath sounds bilaterally, bilateral coarse crackles. Now down to 2L of oxygen today. Cardio regular rate, regular rhythm, S1 normal heart sound, S2 normal heart sound and no murmurs GI GI Narrative: abdomen mildly distended,abdominal tenderness has improved. NG tube in situ.tympanitic to percussion. Extremity normal to inspection, full ROM, normal capillary refill, no clubbing, cyanosis or edema and no calf tenderness General Extremity: no tenderness to palpation of joints or extremities Skin General Skin Exam: no breakdown Neuro oriented x3, CN's II-XII intact bilaterally and moves all extremities Sensorium / Orientation: awake, alert, oriented to person, oriented to place and oriented to time Speech: speech normal Motor Exam: general weakness Psych thought process normal and cooperative Appearance: appropriate Mood & Affect: anxious Assessment & Plan Assessment/Plan (1) Generalized weakness: (2) Acute cystitis: QUALIFIERS: Hematuria presence: without hematuria Qualified Code(s): N30.00 - Acute cystitis without hematuria PLAN: Plan #Acute on chronic hypoxic respiratory failure due to Left upper lobe cavitary opacity as well as possible aspiration. * now down to his baseline 2L of oxygen. * CT of the chest done on admission for cavitary pulmonary opacity in the left upper lobe measuring about 4.8 cm suspicious for malignancy versus TB * He also had mild reticulonodular opacities in the right lung base and small groundglass nodular opacity in the left lower lobe which may be infectious or inflammatory. * Continue negative pressure room. On IV vancomycin and Zosyn. * Urine for strep and Legionella negative. Also on IV Solu-Medrol. ID on board. * sputum cytology was negative for malignancy and special stain for acid fast bacilli was negative for organisms and special stain for fungi was positive for organisms (yeast and pseudohyphae) consistent with Jackelin species * ID on board. Patient taken out of isolation * remains on IV zosyn and vancomycin. management of antibiotics as per ID. Per ID, if abdominal pain improves tentative plan will be for p.o. doxycycline and Levaquin as well as Flagyl for 4 weeks on outpatient basis, with repeat imaging on outpatient basis to confirm resolution of lung abscess * #Small partial bowel obstruction * Apparently the colonic mass was seen on his last CT scan but he never followed up with GI. CT of the abdomen and pelvis this time showed 3.2 cm mass in the sigmoid colon as well as thickening of the sigmoid proximal to this possibly from several colitis. * General surgery on board. * GI on board. * had colonoscopy which showed no evidence of a mass or obstruction. COncern now is his symptoms are due to severe constipation. * He had enemas but this does not help with the constipation * goytely also did not help with constipation * CT of the abdomen with contrast showed distension of the right hemicolon with gas and large amount of fecal material, as well as sigmoid diverticulosis. * Patient has now hd several large bowel movements * general surgery on board. on clear liquid diet, to advance as tolerated. * #Cystitis: * Currently on IV Zosyn. * leucocytosis has resolved. #Hyponatremia: Resolved. #Hypokalemia: Potassium is is still 3 today. Will replace and monitor #Benign essential hypertension: will resume BP meds as he is now on an oral diet. #History of nicotine dependence: Quit a month ago. Counseled to continue abstaining. Nicotine patch as needed #History of alcohol use disorder * says he is to drink about 3-6 beers daily until February 2024. * He had not taken any alcohol since then. * Not in withdrawal. * Counseled to continue abstaining. * DVT prophylaxis: Heparin Charges/Coding Visit Charges Inpatient E&M: 71868 Subs Hosp L2
[2024-04-03] MEDS: Pantoprazole Sodium 40 MG in 0.9% Normal Saline (100mL MB+) 100 ML 330 MG IV ×2 (12:59→21:40)
[2024-04-03] MEDS: Losartan Potassium 100 MG Tablet PO (13:21)
[2024-04-03] MEDS: Acetaminophen 325 MG Tablet 650 MG PO (17:50)
[2024-04-03] MEDS: Vancomycin HCl 1,250 MG in 0.9% Normal Saline (250mL Bag) 250 ML 275 MG IV (17:53)
[2024-04-04] VITALS (8 sets, daily range): BP systolic 138–162; BP diastolic 83–96; PULSE 66–103; RESP 18–24; TEMP 36.4–36.6; O2SAT 93–100; BMI 23.3
[2024-04-04] MEDS: Ketorolac 15 MG/ML Vial IV ×3 (00:52→20:08)
[2024-04-04] MEDS: 0.9% Saline Lock 10 ML Syringe IV ×3 (00:54→20:08)
[2024-04-04] MEDS: Acetaminophen 325 MG Tablet 650 MG PO ×2 (00:56→19:04)
[2024-04-04] MEDS: Ipratropium/Albuterol Sulfate 3 ML AMPUL.NEB INHALATION ×4 (01:53→19:02)
[2024-04-04] MEDS: Piperacil/Tazobactam 3.375 GM in 0.9% Normal Saline (50mL MB+) 50 ML IV ×3 (05:24→21:41)
[2024-04-04 05:54] LABS: Vancomycin, Trough Level 26.5 ug/mL (5.0-15.0)
[2024-04-04] MEDS: Dicyclomine 10 MG Capsule 20 MG PO ×3 (06:06→16:48)
[2024-04-04 06:14] LABS: Anion Gap 8 (5-15); BUN 11 mg/dL (7-18); BUN/Creat Ratio 10.1 RATIO (10-20); Calcium,Total 8.1 mg/dL (8.5-10.1); Chloride 97 mmol/L (98-107); Creatinine, Serum 1.09 mg/dL (0.70-1.30); EST Glomerular Filtration Rate 73 mL/min (>60); Est Glom Filt Rate - Afr Amer 88 mL/min (>60); Estimated Creatinine Clearance 67.98 ml/min; Glucose 89 mg/dL (74-106); Potassium 3.6 mmol/L (3.5-5.1); Sodium Level 136 mmol/L (136-145)
--- NOTE | 2024-04-04 06:32 | PCM.RX.CS ---
Consult Antibiotic Management Pharmacy has been consulted to manage selected antibiotic: Vancomycin Type of Intervention Type of Consult: Follow-up Labs Labs: Sodium 136 mmol/L (136-145) 04/04/24 05:05 Potassium 3.6 mmol/L (3.5-5.1) 04/04/24 05:05 Chloride 97 mmol/L (98-107) L 04/04/24 05:05 Carbon Dioxide 31.0 mmol/L (21.0-32.0) 04/04/24 05:05 Anion Gap 8 (5-15) 04/04/24 05:05 BUN 11 mg/dL (7-18) 04/04/24 05:05 Creatinine 1.09 mg/dL (0.70-1.30) 04/04/24 05:05 Est GFR (MDRD) Af Amer 88 mL/min (>60) 04/04/24 05:05 Est GFR (MDRD) Non-Af 73 mL/min (>60) 04/04/24 05:05 BUN/Creatinine Ratio 10.1 RATIO (10-20) 04/04/24 05:05 Glucose 89 mg/dL (74-106) 04/04/24 05:05 Vancomycin Trough 26.5 ug/mL (5.0-15.0) H 04/04/24 05:05 Random Vancomycin 16.8 ug/mL (0.0-15.0) H 04/02/24 15:29 Microbiology Microbiology: Microbiology 03/28/24 01:04 Blood Culture (Wb) - Anticubital Right Blood Culture - Final No growth in 5 days. 03/28/24 01:00 Blood Culture (Wb) - Anticubital Left Blood Culture - Final No growth in 5 days. 03/28/24 00:40 Stool Enteric Bacteriology - Final 03/28/24 06:00 Urine, Clean Catch Legionella Antigen - Final 03/28/24 06:00 Urine, Clean Catch Streptococcus pneumoniae Antigen (M - Final 03/28/24 01:02 Mucosa - Nose SARS-CoV-2, Influenza & RSV (PCR) - Final Goal Trough Goal Trough: 15-20 mcg/mL Pharmacy Plan for Drug Dosing Pharmacy Plan for Drug Dosing: Pharmacy Service will continue to monitor and adjust dosing as required. TROUGH 26.5. HOLD DOSE AND DRAW RANDOM LEVEL IN 12 HOURS Follow-Up Labs Follow-Up Labs: Trough: Vancomycin Date/Time Labs Ordered Labs to be done on [date and time ordered]: 04/04 @ 8943
[2024-04-04 07:11] LABS: Absolute Lymphocyte Count 0.91 X10^3/uL (0.83-4.51); Absolute Neutrophil Count 3.3 X10^3/uL (2.0-7.7); Basophil# 0.06 X10^3/uL; Basophil% 1.2 % (0-1); Eosinophil# 0.12 X10^3/uL; Eosinophils% 2.4 % (0-5); Hematocrit 31.9 % (40-54); Hemoglobin 10.2 g/dL (13.0-16.5); Lymphocyte # 0.91 X10^3/ul (0.83-4.51); Lymphocyte % 18.3 % (19-41); Mean Corpuscular Hgb 29.1 pg (27.0-32.0); Mean Corpuscular Volume 91.1 fL (80-94); Mean Platelet Vol. 8.1 fl (6.2-12.0); Monocyte# 0.57 X10^3/uL; Monocyte% 11.4 % (0-10); NRBC Flagged by Analyzer 0 % (0-5); Neutrophil % 66.3 % (47-70); Platelet Count 410 K/mm3 (150-450); RBC Distribution Width CV 12.3 % (11.6-14.6)
[2024-04-04] MEDS: Pantoprazole Sodium 40 MG in 0.9% Normal Saline (100mL MB+) 100 ML 330 MG IV ×2 (10:13→20:01)
[2024-04-04] MEDS: Losartan Potassium 100 MG Tablet PO (10:30)
[2024-04-04] MEDS: Heparin Injection (Vial) 5,000 UNIT/ML VIAL 5000 UNIT SC ×2 (10:32→19:58)
[2024-04-04] MEDS: Bisacodyl 10 MG Suppository RC (10:32)
--- NOTE | 2024-04-04 12:07 | PCM.PN.SRG ---
Subjective Subjective Patient seen and examined during AM rounds. Is found sleeping upon my arrival to the room. He reports that he had some abdominal discomfort overnight but generally feels better than yesterday. He continues to pass flatus. He denies a strong appetite and expresses even some nausea this morning Objective Data Objective Data Vital Signs: Vital Signs Temp Pulse Resp BP Pulse Ox O2 Del Method O2 Flow Rate 97.9 F 96 18 160/85 H 99 Nasal Cannula 2 04/04/24 10:04/04/24 10:04/04/24 10:04/04/24 10:04/04/24 10:04/04/24 10:04/04/24 10:25 Oxygen Flow Rate (L/min) 2 Oxygen Delivery Method Nasal Cannula Weight: 153 lb 14.122 oz Body Mass Index (BMI) 23.3 Intake & Output: Intake and Output for Last 24 Hours 04/02/24 04/03/24 04/04/24 23:59 23:59 23:59 Intake Total 1660 / 1660 2025 / 202 450 / 450 Output Total 752 / 1052 600 / 600 Balance 908 / 608 1425 / 1425 450 / 450 Medical Nutrition Assessment Dietitian: Malnutrition Criteria Met Start: 03/28/24 09:58 Freq: Status: Active Protocol: Document 03/28/24 09:58 KRISHAN (Rec: 03/28/24 09:58 [id number]) Nutrition Malnutrition Evidence of Yes Malnutrition Exists Malnutrition (severe Acute Illness/Injury ): Evidenced By Suboptimal Energy Intake (Severe),Weight Loss (Severe) Clinical Problem Biting/Chewing Difficulty Etiology swallowing related to recent jaw fx 02/28/24 Signs/Symptoms as evidenced by pt self report Status Active Problem Acute Disease or Injury Related Malnutrition Etiology related to recent jaw fx (02/28/24) and inadequate energy intake Signs/Symptoms as evidenced by po intake < 75% of est nutritional needs and unplanned wt loss of ~10% x 1 month Status Active Problem Recommendation Dietitian As medically able, rec DANIELLE to liberal Regular soft and Recommendations/ bite size per pt request Changes As medically able, rec 8 oz chocolate ensure plus high protein tid w/ meals for increased nutrition if consumed. Lab / Micro Data 04/04/24 06:35 04/04/24 05:05 Labs: Laboratory Results - last 24 hr 04/04/24 05:05: WBC Cancelled, Corrected WBC Cancelled, RBC Cancelled, Hgb Cancelled, Hct Cancelled, MCV Cancelled, MCH Cancelled, MCHC Cancelled, RDW Std Deviation Cancelled, RDW Coeff of Pam Cancelled, Plt Count Cancelled, MPV Cancelled, Immature Gran % (Auto) Cancelled, Neut % (Auto) Cancelled, Lymph % (Auto) Cancelled, [place] % (Auto) Cancelled, Eos % (Auto) Cancelled, Baso % (Auto) Cancelled, Absolute Neuts (auto) Cancelled, Absolute Lymphs (auto) Cancelled, Total Counted Cancelled, Neutrophils % (Manual) Cancelled, Band Neutrophils % Cancelled, Lymphocytes % (Manual) Cancelled, Monocytes % (Manual) Cancelled, Eosinophils % (Manual) Cancelled, Basophils % (Manual) Cancelled, Metamyelocytes % Cancelled, Myelocytes % Cancelled, Promyelocytes % Cancelled, Blast Cells % Cancelled, Plasma Cell % (Manual) Cancelled, Other Cells % Cancelled, Nucleated RBC % Cancelled, Nucleated RBCs/100 WBC Cancelled, Differential Comment Cancelled, Diff Path Review Cancelled, Hypersegmented Neuts Cancelled, Atypical Lymphocytes Cancelled, Reactive Lymphocytes Cancelled, Smudge Cells Cancelled, Toxic Granulation Cancelled, Toxic Vacuolation Cancelled, Dohle Bodies Cancelled, Emani Rods Cancelled, Platelet Estimate Cancelled, Plt Morphology Comment Cancelled, RBC Morphology Cancelled 04/04/24 05:05: RBC Morphology Cancelled, Polychromasia Cancelled, Hypochromasia Cancelled, Basophilic Stippling Cancelled, Anisocytosis Cancelled, Microcytosis Cancelled, Macrocytosis Cancelled, Spherocytes Cancelled, Sickle Cells Cancelled, Target Cells Cancelled, Tear Drop Cells Cancelled, Ovalocytes Cancelled, Stomatocytes Cancelled, Krishnamurthy-[place] Bodies Cancelled, Hao Cells Cancelled, Bite Cells Cancelled, Crenated Cell Cancelled, Acanthocytes (Spur) Cancelled, Rouleaux Cancelled, Schistocytes Cancelled, Sodium 136, Potassium 3.6, Chloride 97 L, Carbon Dioxide 31.0, Anion Gap 8, BUN 11, Creatinine 1.09, Estim Creat Clear Calc 67.98, Est GFR (MDRD) Af Amer 88, Est GFR (MDRD) Non-Af 73, BUN/Creatinine Ratio 10.1, Glucose 89, Calcium 8.1 L, Vancomycin Trough 26.5 H 04/04/24 06:35: WBC 5.0, RBC 3.50 L, Hgb 10.2 L, Hct 31.9 L, MCV 91.1, MCH 29.1, MCHC 32.0, RDW Std Deviation 41.0, RDW Coeff of Pam 12.3, Plt Count 410, MPV 8.1, Immature Gran % (Auto) 0.400, Neut % (Auto) 66.3, Lymph % (Auto) 18.3 L, [place] % (Auto) 11.4 H, Eos % (Auto) 2.4, Baso % (Auto) 1.2 H, Absolute Neuts (auto) 3.3, Absolute Lymphs (auto) 0.91, Nucleated RBC % 0 Micro: Microbiology 03/28/24 01:04 Blood Culture (Wb) - Anticubital Right Blood Culture - Final No growth in 5 days. 03/28/24 01:00 Blood Culture (Wb) - Anticubital Left Blood Culture - Final No growth in 5 days. 03/28/24 00:40 Stool Enteric Bacteriology - Final 03/28/24 06:00 Urine, Clean Catch Legionella Antigen - Final 03/28/24 06:00 Urine, Clean Catch Streptococcus pneumoniae Antigen (M - Final 03/28/24 01:02 Mucosa - Nose SARS-CoV-2, Influenza & RSV (PCR) - Final Physical Exam Const oriented x3 and no apparent distress Resp normal respiratory effort GI GI Narrative: Distended, minimally tender to palpation, diffusely tympanic Assessment & Plan Assessment/Plan (1) Constipation: PLAN: Patient with likely ileus ongoing bowel movements but minimal flatus. He remains distended and is now reporting some mild nausea. Yesterday his KUB did show diffuse gaseous distention of the bowel rather than isolated colonic distention. Thus with patient reporting some nausea and this bowel gas pattern I do not believe he is ready yet for further diet advancement. Will plan to repeat suppository today and reevaluate this afternoon. Continue to hold narcotics and work for alternative pain relief measures. Francis Ashraf MD General Surgery Endocrine Surgery Pager: [facility] [address] [place] [address], [facility], [address] [place] [address] Office: [phone] Charges/Coding Visit Charges Inpatient E&M: 59666 Subs Hosp L2
--- NOTE | 2024-04-04 12:32 | PN_ITS ---
Subjective Subjective Patient seen and examined. He complained of abdominal pain and nausea. He denied any fever or chills or abdominal pain. Review of systems is otherwise negative. He is on 2L of oxygen and has remained hemodynamically stable. Objective Data Objective Data Vital Signs: Vital Signs Temp Pulse Resp BP Pulse Ox O2 Del Method O2 Flow Rate 97.9 F 96 18 160/85 H 99 Nasal Cannula 2 04/04/24 10:25 04/04/24 10:04/04/24 10:04/04/24 10:04/04/24 10:04/04/24 10:04/04/24 10:25 Oxygen Flow Rate (L/min) 2 Oxygen Delivery Method Nasal Cannula Weight: 153 lb 14.122 oz Body Mass Index (BMI) 23.3 Intake & Output: Intake and Output for Last 24 Hours 04/02/24 04/03/24 04/04/24 23:59 23:59 23:59 Intake Total 1660 / 1660 2025 / 2025 450 / 450 Output Total 752 / 1052 600 / 600 Balance 908 / 608 1425 / 1425 450 / 450 Medical Nutrition Assessment Dietitian: Malnutrition Criteria Met Start: 03/28/24 09:58 Freq: Status: Active Protocol: Document 03/28/24 09:58 SLA (Rec: 03/28/24 09:58 [id number] [id number]) Nutrition Malnutrition Evidence of Yes Malnutrition Exists Malnutrition (severe Acute Illness/Injury ): Evidenced By Suboptimal Energy Intake (Severe),Weight Loss (Severe) Clinical Problem Biting/Chewing Difficulty Etiology swallowing related to recent jaw fx 02/28/24 Signs/Symptoms as evidenced by pt self report Status Active Problem Acute Disease or Injury Related Malnutrition Etiology related to recent jaw fx (02/28/24) and inadequate energy intake Signs/Symptoms as evidenced by po intake < 75% of est nutritional needs and unplanned wt loss of ~10% x 1 month Status Active Problem Recommendation Dietitian As medically able, rec DANIELLE to liberal Regular soft and Recommendations/ bite size per pt request Changes As medically able, rec 8 oz chocolate ensure plus high protein tid w/ meals for increased nutrition if consumed. Lab / Micro Data 04/04/24 06:35 04/04/24 05:05 Labs: Laboratory Results - last 24 hr 04/04/24 05:05: WBC Cancelled, Corrected WBC Cancelled, RBC Cancelled, Hgb Cancelled, Hct Cancelled, MCV Cancelled, MCH Cancelled, MCHC Cancelled, RDW Std Deviation Cancelled, RDW Coeff of Pam Cancelled, Plt Count Cancelled, MPV Cancelled, Immature Gran % (Auto) Cancelled, Neut % (Auto) Cancelled, Lymph % (Auto) Cancelled, [place] % (Auto) Cancelled, Eos % (Auto) Cancelled, Baso % (Auto) Cancelled, Absolute Neuts (auto) Cancelled, Absolute Lymphs (auto) Cancelled, Total Counted Cancelled, Neutrophils % (Manual) Cancelled, Band Neutrophils % Cancelled, Lymphocytes % (Manual) Cancelled, Monocytes % (Manual) Cancelled, Eosinophils % (Manual) Cancelled, Basophils % (Manual) Cancelled, Metamyelocytes % Cancelled, Myelocytes % Cancelled, Promyelocytes % Cancelled, Blast Cells % Cancelled, Plasma Cell % (Manual) Cancelled, Other Cells % Cancelled, Nucleated RBC % Cancelled, Nucleated RBCs/100 WBC Cancelled, Differential Comment Cancelled, Diff Path Review Cancelled, Hypersegmented Neuts Cancelled, Atypical Lymphocytes Cancelled, Reactive Lymphocytes Cancelled, Smudge Cells Cancelled, Toxic Granulation Cancelled, Toxic Vacuolation Cancelled, Dohle Bodies Cancelled, Emani Rods Cancelled, Platelet Estimate Cancelled, Plt Morphology Comment Cancelled, RBC Morphology Cancelled 04/04/24 05:05: RBC Morphology Cancelled, Polychromasia Cancelled, Hypochromasia Cancelled, Basophilic Stippling Cancelled, Anisocytosis Cancelled, Microcytosis Cancelled, Macrocytosis Cancelled, Spherocytes Cancelled, Sickle Cells Cancelled, Target Cells Cancelled, Tear Drop Cells Cancelled, Ovalocytes Cancelled, Stomatocytes Cancelled, Krishnamurthy[place] Bodies Cancelled, Hao Cells Cancelled, Bite Cells Cancelled, Crenated Cell Cancelled, Acanthocytes (Spur) Cancelled, Rouleaux Cancelled, Schistocytes Cancelled, Sodium 136, Potassium 3.6, Chloride 97 L, Carbon Dioxide 31.0, Anion Gap 8, BUN 11, Creatinine 1.09, Estim Creat Clear Calc 67.98, Est GFR (MDRD) Af Amer 88, Est GFR (MDRD) Non-Af 73, BUN/Creatinine Ratio 10.1, Glucose 89, Calcium 8.1 L, Vancomycin Trough 26.5 H 04/04/24 06:35: WBC 5.0, RBC 3.50 L, Hgb 10.2 L, Hct 31.9 L, MCV 91.1, MCH 29.1, MCHC 32.0, RDW Std Deviation 41.0, RDW Coeff of Pam 12.3, Plt Count 410, MPV 8.1, Immature Gran % (Auto) 0.400, Neut % (Auto) 66.3, Lymph % (Auto) 18.3 L, M [place] % (Auto) 11.4 H, Eos % (Auto) 2.4, Baso % (Auto) 1.2 H, Absolute Neuts (auto) 3.3, Absolute Lymphs (auto) 0.91, Nucleated RBC % 0 Micro: Microbiology 03/28/24 01:04 Blood Culture (Wb) - Anticubital Right Blood Culture - Final No growth in 5 days. 03/28/24 01:00 Blood Culture (Wb) - Anticubital Left Blood Culture - Final No growth in 5 days. 03/28/24 00:40 Stool Enteric Bacteriology - Final 03/28/24 06:00 Urine, Clean Catch Legionella Antigen - Final 03/28/24 06:00 Urine, Clean Catch Streptococcus pneumoniae Antigen (M - Final 03/28/24 01:02 Mucosa - Nose SARS-CoV-2, Influenza & RSV (PCR) - Final Physical Exam Const alert and oriented x3 Constitutional Narrative: looks older than stated age. frail. General Appearance: cooperative HEENT normocephalic, head/scalp atraumatic, hearing grossly normal bilaterally, moist oral mucous membranes and oropharynx normal Eyes PERRL and EOMs intact bilaterally Neck no lymphadenopathy and supple Lymph Lymphatic: no lymphadenopathy noted Resp Resp Narrative: diminished breath sounds bilaterally, few crackles. Now down to 2L of oxygen today. Cardio regular rate, regular rhythm, S1 normal heart sound, S2 normal heart sound and no murmurs GI GI Narrative: abdomen mildly distended,abdominal tenderness has improved. tympanitic to percussion. NG tube removed. Extremity normal to inspection, full ROM, normal capillary refill, no clubbing, cyanosis or edema and no calf tenderness General Extremity: no tenderness to palpation of joints or extremities Skin General Skin Exam: no breakdown Neuro oriented x3, CN's II-XII intact bilaterally, moves all extremities, no focal motor deficits and no sensory deficits noted Sensorium / Orientation: awake, alert, oriented to person, oriented to place and oriented to time Speech: speech normal Motor Exam: strength 5/5 throughout and general weakness Psych thought process normal, cooperative and affect normal Appearance: appropriate Mood & Affect: anxious Assessment & Plan Assessment/Plan (1) Generalized weakness: (2) Acute cystitis: QUALIFIERS: Hematuria presence: without hematuria Qualified Code(s): N30.00 - Acute cystitis without hematuria PLAN: Plan #Acute on chronic hypoxic respiratory failure due to Left upper lobe cavitary opacity as well as possible aspiration. * now down to his baseline 2L of oxygen. * CT of the chest done on admission for cavitary pulmonary opacity in the left upper lobe measuring about 4.8 cm suspicious for malignancy versus TB * He also had mild reticulonodular opacities in the right lung base and small groundglass nodular opacity in the left lower lobe which may be infectious or inflammatory. * Continue negative pressure room. On IV vancomycin and Zosyn. * Urine for strep and Legionella negative. Also on IV Solu-Medrol. ID on board. * sputum cytology was negative for malignancy and special stain for acid fast bacilli was negative for organisms and special stain for fungi was positive for organisms (yeast and pseudohyphae) consistent with Jackelin species * ID on board. Patient taken out of isolation * remains on IV zosyn and vancomycin. management of antibiotics as per ID. Per ID, if abdominal pain improves tentative plan will be for p.o. doxycycline and Levaquin as well as Flagyl for 4 weeks on outpatient basis, with repeat imaging on outpatient basis to confirm resolution of lung abscess * #Small partial bowel obstruction * Apparently the colonic mass was seen on his last CT scan but he never followed up with GI. CT of the abdomen and pelvis this time showed 3.2 cm mass in the sigmoid colon as well as thickening of the sigmoid proximal to this possibly from several colitis. * General surgery on board. * GI on board. * had colonoscopy which showed no evidence of a mass or obstruction. COncern now is his symptoms are due to severe constipation. * He had enemas but this does not help with the constipation * goytely also did not help with constipation * CT of the abdomen with contrast showed distension of the right hemicolon with gas and large amount of fecal material, as well as sigmoid diverticulosis. * Patient has now hd several large bowel movements and had several small bowel movements overnight. * General surgery on board. Was on clear liquid diet. Had nausea after it was advanced. IV zofran prn. * now on full liquid diet. * #Cystitis: * resolved. #Hyponatremia: Resolved. #Hypokalemia: resolved. k is 3.6 today. #Benign essential hypertension:on losartan #History of nicotine dependence: Quit a month ago. Counseled to continue abstaining. Nicotine patch as needed #History of alcohol use disorder * says he is to drink about 3-6 beers daily until February 2024. * He had not taken any alcohol since then. * Not in withdrawal. * Counseled to continue abstaining. * DVT prophylaxis: Heparin Charges/Coding Visit Charges Inpatient E&M: 03659 Subs Hosp L2
[2024-04-04 16:38] LABS: Vancomycin, Random Level 21.2 ug/mL (0.0-15.0)
[2024-04-04] MEDS: Vancomycin Trough/Random Due 1 LAB MC (16:48)
--- NOTE | 2024-04-04 16:52 | PHA.PHARE_ITS ---
Consult Antibiotic Management Pharmacy has been consulted to manage selected antibiotic: Vancomycin Type of Intervention Type of Consult: Follow-up Suspected Infection Suspected Infection: Pneumonia Labs Labs: Sodium 136 mmol/L (136-145) 04/04/24 05:05 Potassium 3.6 mmol/L (3.5-5.1) 04/04/24 05:05 Chloride 97 mmol/L (98-107) L 04/04/24 05:05 Carbon Dioxide 31.0 mmol/L (21.0-32.0) 04/04/24 05:05 Anion Gap 8 (5-15) 04/04/24 05:05 BUN 11 mg/dL (7-18) 04/04/24 05:05 Creatinine 1.09 mg/dL (0.70-1.30) 04/04/24 05:05 Est GFR (MDRD) Af Amer 88 mL/min (>60) 04/04/24 05:05 Est GFR (MDRD) Non-Af 73 mL/min (>60) 04/04/24 05:05 BUN/Creatinine Ratio 10.1 RATIO (10-20) 04/04/24 05:05 Glucose 89 mg/dL (74-106) 04/04/24 05:05 Vancomycin Trough 26.5 ug/mL (5.0-15.0) H 04/04/24 05:05 Random Vancomycin 21.2 ug/mL (0.0-15.0) H 04/04/24 16:15 Microbiology Microbiology: Microbiology 03/28/24 01:04 Blood Culture (Wb) - Anticubital Right Blood Culture - Final No growth in 5 days. 03/28/24 01:00 Blood Culture (Wb) - Anticubital Left Blood Culture - Final No growth in 5 days. 03/28/24 00:40 Stool Enteric Bacteriology - Final 03/28/24 06:00 Urine, Clean Catch Legionella Antigen - Final 03/28/24 06:00 Urine, Clean Catch Streptococcus pneumoniae Antigen (M - Fin al 03/28/24 01:02 Mucosa - Nose SARS-CoV-2, Influenza & RSV (PCR) - Final Goal Trough Goal Trough: 15-20 mcg/mL Pharmacy Plan for Drug Dosing Pharmacy Plan for Drug Dosing: VANCOMYCIN LEVEL RECEIVED Current Vancomycin Dose: on hold due to previously elevated trough (was 1250mg q12h at 05,17) Number of Doses Received: Vancomycin Level: random level resulted at 21.2 Hours Since Last Dose: 22 hours since last 1250mg dose on 04/03 at 1753 Renal Function: SrCr 1.09 Renal Function Trend: SrCr increasing (previously was 0.61 on 04/02) Lab/Micro: Vancomycin Plan/Comments: recommend continuing to hold vancomycin doses due to random level greater than 20 Pending Level: random level 04/05/24 at 0600 Pharmacy Service will continue to monitor and adjust dosing as required. Follow-Up Labs Follow-Up Labs: Trough: Vancomycin (04/05/24 @ 0600 (random level))
[2024-04-04] MEDS: Budesonide Respules 0.5 MG/2 ML AMPUL.NEB. INHALATION (19:02)
[2024-04-05] VITALS (8 sets, daily range): BP systolic 139–159; BP diastolic 80–90; PULSE 78–105; RESP 18–22; TEMP 35.8–36.8; O2SAT 95–100
[2024-04-05] MEDS: Ipratropium/Albuterol Sulfate 3 ML AMPUL.NEB INHALATION ×4 (02:22→19:26)
[2024-04-05] MEDS: Piperacil/Tazobactam 3.375 GM in 0.9% Normal Saline (50mL MB+) 50 ML IV ×3 (04:54→22:59)
[2024-04-05] MEDS: Dicyclomine 10 MG Capsule 20 MG PO ×3 (04:55→17:06)
[2024-04-05 06:12] LABS: Absolute Lymphocyte Count 0.99 X10^3/uL (0.83-4.51); Absolute Neutrophil Count 4.3 X10^3/uL (2.0-7.7); Basophil# 0.05 X10^3/uL; Basophil% 0.8 % (0-1); Eosinophil# 0.17 X10^3/uL; Eosinophils% 2.8 % (0-5); Hematocrit 32.7 % (40-54); Hemoglobin 10.5 g/dL (13.0-16.5); Lymphocyte # 0.99 X10^3/ul (0.83-4.51); Lymphocyte % 16.3 % (19-41); Mean Corp Hgb Conc 32.1 g/dL (32-36); Mean Corpuscular Hgb 29.1 pg (27.0-32.0); Mean Corpuscular Volume 90.6 fL (80-94); Monocyte# 0.54 X10^3/uL; Monocyte% 8.9 % (0-10); NRBC Flagged by Analyzer 0 % (0-5); Neutrophil # 4.31 X10^3/uL (2.7-7.7); Neutrophil % 70.9 % (47-70); Platelet Count 392 K/mm3 (150-450); RBC Distribution Width CV 12.1 % (11.6-14.6); RBC Distribution Width SD 40.7 fl (35.1-43.9); Red Blood Count 3.61 M/mm3 (4.6-6.2); White Blood Count 6.1 K/mm3 (4.4-11.0)
[2024-04-05 06:35] LABS: Anion Gap 6 (5-15); BUN 13 mg/dL (7-18); BUN/Creat Ratio 11.3 RATIO (10-20); Calcium,Total 8.2 mg/dL (8.5-10.1); Chloride 96 mmol/L (98-107); Creatinine, Serum 1.15 mg/dL (0.70-1.30); EST Glomerular Filtration Rate 68 mL/min (>60); Est Glom Filt Rate - Afr Amer 83 mL/min (>60); Estimated Creatinine Clearance 64.43 ml/min; Glucose 103 mg/dL (74-106); Potassium 3.2 mmol/L (3.5-5.1); Sodium Level 134 mmol/L (136-145)
[2024-04-05 06:36] LABS: Vancomycin, Random Level 16.6 ug/mL (0.0-15.0)
--- NOTE | 2024-04-05 06:48 | PCM.RX.CS ---
Consult Antibiotic Management Pharmacy has been consulted to manage selected antibiotic: Vancomycin Type of Intervention Type of Consult: Follow-up Suspected Infection Suspected Infection: Pneumonia and Other (LUNG ABSCESS) Prior Doses of Antibiotics Prior Doses of Antibiotics Received/Current Regimen: Vancomycin 1250 mg Q12H last dose given 04/03/24 @ 1753 Labs Labs: Sodium 134 mmol/L (136-145) L 04/05/24 05:57 Potassium 3.2 mmol/L (3.5-5.1) L 04/05/24 05:57 Chloride 96 mmol/L (98-107) L 04/05/24 05:57 Carbon Dioxide 32.0 mmol/L (21.0-32.0) 04/05/24 05:57 Anion Gap 6 (5-15) 04/05/24 05:57 BUN 13 mg/dL (7-18) 04/05/24 05:57 Creatinine 1.15 mg/dL (0.70-1.30) 04/05/24 05:57 Est GFR (MDRD) Af Amer 83 mL/min (>60) 04/05/24 05:57 Est GFR (MDRD) Non-Af 68 mL/min (>60) 04/05/24 05:57 BUN/Creatinine Ratio 11.3 RATIO (10-20) 04/05/24 05:57 Glucose 103 mg/dL (74-106) 04/05/24 05:57 Vancomycin Trough 26.5 ug/mL (5.0-15.0) H 04/04/24 05:05 Random Vancomycin 16.6 ug/mL (0.0-15.0) H 04/05/24 05:57 Microbiology Microbiology: Microbiology 03/28/24 01:04 Blood Culture (Wb) - Anticubital Right Blood Culture - Final No growth in 5 days. 03/28/24 01:00 Blood Culture (Wb) - Anticubital Left Blood Culture - Final No growth in 5 days. 03/28/24 00:40 Stool Enteric Bacteriology - Final 03/28/24 06:00 Urine, Clean Catch Legionella Antigen - Final 03/28/24 06:00 Urine, Clean Catch Streptococcus pneumoniae Antigen (M - Final 03/28/24 01:02 Mucosa - Nose SARS-CoV-2, Influenza & RSV (PCR) - Final Dosing Weight Weight used for dosin kg Estimated Creatinine Clearance Estimated Creatinine Clearance: ~ 64 Goal Trough Goal Trough: 15-20 mcg/mL Pharmacy Plan for Drug Dosing Pharmacy Plan for Drug Dosing: Vancomycin random level this AM = 16.6, resume dosing with 750 mg Q12H, trough prior to 4th dose of new regimen. Pharmacy Service will continue to monitor and adjust dosing as required. Follow-Up Labs Follow-Up Labs: Trough: Vancomycin Date/Time Labs Ordered Labs to be done on [date and time ordered]: 04/06/24 @ 5006
--- NOTE | 2024-04-05 07:00 | RAD_ITS ---
PROCEDURE: ABDOMEN SINGLE VIEW (PORTABLE) REASON FOR EXAM: Ileus. TECHNIQUE: Single view abdomen. COMPARISON: Abdomen radiographs from 04/03/2024, 04/01/2024, 03/31/2024. CT abdomen/pelvis from 03/31/2024. FINDINGS: There is redemonstration of diffuse mildly dilated air-filled loops of small and large bowel which is not significantly changed. No unusual calcifications are identified. No free air is identified. Degenerative changes are present. RAD/Abdomen Single View (Portable) IMPRESSION: Redemonstration of diffuse mildly air distended loops of small and large bowel which again may relate to an ileus and/or enterocolitis and are not significantly changed in the interim. Reading Location: [facility]
[2024-04-05] MEDS: Budesonide Respules 0.5 MG/2 ML AMPUL.NEB. INHALATION ×2 (07:20→19:26)
--- NOTE | 2024-04-05 08:35 | PCM.PN.SRG ---
Subjective Subjective Patient evaluated resting comfortably in bed. He notes abdominal pain. He states he feels distended, however not as distended as last week. He denies nausea, vomiting. He notes he is somewhat passing flatus. He has not had a bowel movement over night. He voices being hungry today. He is tolerating full liquids. Objective Data Objective Data Vital Signs: Vital Signs Temp Pulse Resp BP Pulse Ox O2 Del Method O2 Flow Rate 96.4 F L 80 18 159/89 H 98 Nasal Cannula 2 04/05/24 02:45 04/05/24 02:45 04/05/24 02:45 04/05/24 02:45 04/05/24 02:45 04/05/24 08:04 04/05/24 08:04 Oxygen Flow Rate (L/min) 2 Oxygen Delivery Method Nasal Cannula Weight: 153 lb 14.122 oz Body Mass Index (BMI) 23.3 Intake & Output: Intake and Output for Last 24 Hours 04/03/24 04/04/24 04/05/24 23:59 23:59 23:59 Intake Total 2024 / 2024 850 / 850 50 / 50 Output Total 600 / 600 Balance 1425 / 1425 850 / 850 50 / 50 Medical Nutrition Assessment Dietitian: Malnutrition Criteria Met Start: 03/28/24 09:58 Freq: Status: Active Protocol: Document 03/28/24 09:58 SLA (Rec: 03/28/24 09:58 [facility] [id number]) Nutrition Malnutrition Evidence of Yes Malnutrition Exists Malnutrition (severe Acute Illness/Injury ): Evidenced By Suboptimal Energy Intake (Severe),Weight Loss (Severe) Clinical Problem Biting/Chewing Difficulty Etiology swallowing related to recent jaw fx 02/28/24 Signs/Symptoms as evidenced by pt self report Status Active Problem Acute Disease or Injury Related Malnutrition Etiology related to recent jaw fx (02/28/24) and inadequate energy intake Signs/Symptoms as evidenced by po intake < 75% of est nutritional needs and unplanned wt loss of ~10% x 1 month Status Active Problem Recommendation Dietitian As medically able, rec DANIELLE to liberal Regular soft and Recommendations/ bite size per pt request Changes As medically able, rec 8 oz chocolate ensure plus high protein tid w/ meals for increased nutrition if consumed. Lab / Micro Data 04/05/24 05:57 04/05/24 05:57 Labs: Laboratory Results - last 24 hr 04/04/24 16:15: Random Vancomycin 21.2 H 04/05/24 05:57: WBC 6.1, RBC 3.61 L, Hgb 10.5 L, Hct 32.7 L, MCV 90.6, MCH 29.1, MCHC 32.1, RDW Std Deviation 40.7, RDW Coeff of Pam 12.1, Plt Count 392, MPV 8.0, Immature Gran % (Auto) 0.300, Neut % (Auto) 70.9 H, Lymph % (Auto) 16.3 L, [place] % (Auto) 8.9, Eos % (Auto) 2.8, Baso % (Auto) 0.8, Absolute Neuts (auto) 4.3, Absolute Lymphs (auto) 0.99, Nucleated RBC % 0, Sodium 134 L, Potassium 3.2 L, Chloride 96 L, Carbon Dioxide 32.0, Anion Gap 6, BUN 13, Creatinine 1.15, Estim Creat Clear Calc 64.43, Est GFR (MDRD) Af Amer 83, Est GFR (MDRD) Non-Af 68, BUN/Creatinine Ratio 11.3, Glucose 103, Calcium 8.2 L, Random Vancomycin 16.6 H Micro: Microbiology 03/28/24 01:04 Blood Culture (Wb) - Anticubital Right Blood Culture - Final No growth in 5 days. 03/28/24 01:00 Blood Culture (Wb) - Anticubital Left Blood Culture - Final No growth in 5 days. 03/28/24 00:40 Stool Enteric Bacteriology - Final 03/28/24 06:00 Urine, Clean Catch Legionella Antigen - Final 03/28/24 06:00 Urine, Clean Catch Streptococcus pneumoniae Antigen (M - Final 03/28/24 01:02 Mucosa - Nose SARS-CoV-2, Influenza & RSV (PCR) - Final Radiography Diagnostic Testing: Radiology Impression KUB X-Ray 04/05/24 07:00 IMPRESSION: Redemonstration of diffuse mildly air distended loops of small and large bowel which again may relate to an ileus and/or enterocolitis and are not significantly changed in the interim. Reading Location: [facility] Physical Exam GI GI Narrative: Abdomen- soft, distended, hypoactive bowel sounds. Tympanic upper abdomen. Slight generalized tenderness. Assessment & Plan Assessment/Plan (1) Constipation: (2) Ileus due to infection: PLAN: Plan I am following this patient in conjunction with Dr. Ashraf. He has independently evaluated this patient. Labs reviewed. Electrolyte imbalance noted Rectal suppository scheduled for daily KUB from today demonstrated mild dilated air-filled loops of small and large bowel Continue with full liquid diet at this time with clear ensure clear TID No surgical plans at this time Continue to avoid narcotic pain medication May shower today We will continue to monitor this patient Charges/Coding Visit Charges Inpatient E&M: 78305 [facility] Hosp L1
[2024-04-05] MEDS: Vancomycin HCl 750 MG in 0.9% Normal Saline (250mL Bag) 250 ML 250 MG IV ×2 (09:20→18:34)
[2024-04-05] MEDS: 0.9% Saline Lock 10 ML Syringe IV ×3 (09:23→17:07)
[2024-04-05] MEDS: Bisacodyl 10 MG Suppository RC (09:29)
[2024-04-05] MEDS: Losartan Potassium 100 MG Tablet PO (09:29)
--- NOTE | 2024-04-05 09:50 | PCM.PN.HOSP ---
Reason for Visit Reason for Visit: Diagnoses Unspecified infectious disease (03/28/24) Elevated white blood cell count, unspecified (03/28/24) Hypo-osmolality and hyponatremia (03/28/24) Other disorders of plasma-protein metabolism, not elsewhere classified (03/28/24) Nicotine dependence, unspecified, uncomplicated (03/28/24) Nicotine dependence, cigarettes, uncomplicated (03/28/24) Pneumonia, unspecified organism (03/28/24) Chronic obstructive pulmonary disease, unspecified (03/28/24) Other disorders of lung (03/28/24) Other specified noninfective gastroenteritis and colitis (03/28/24) Ileus, unspecified (03/28/24) Constipation, unspecified (03/28/24) Other specified diseases of intestine (03/28/24) Acute cystitis without hematuria (03/28/24) Unspecified abdominal pain (03/28/24) Difficulty in walking, not elsewhere classified (03/28/24) Weakness (03/28/24) Dependence on supplemental oxygen (03/28/24) Subjective Subjective Still with severe abdominal pain. Objective Data Objective Data Vital Signs: Vital Signs Temp Pulse Resp BP Pulse Ox O2 Del Method O2 Flow Rate 36.3 C L 79 18 139/80 H 100 Nasal Cannula 2 04/05/24 08:45 04/05/24 08:45 04/05/24 08:45 04/05/24 08:45 04/05/24 08:45 04/05/24 08:45 04/05/24 08:45 Oxygen Flow Rate (L/min) 2 Oxygen Delivery Method Nasal Cannula Weight: 69.8 kg Body Mass Index (BMI) 23.3 Intake & Output: Intake and Output for Last 24 Hours 04/03/24 04/04/24 04/05/24 23:59 23:59 23:59 Intake Total 2024 / 2024 850 / 850 100 / 100 Output Total 600 / 600 Balance 1425 / 1425 850 / 850 100 / 100 Medical Nutrition Assessment Dietitian: Malnutrition Criteria Met Start: 03/28/24 09:58 Freq: Status: Active Protocol: Document 03/28/24 09:58 KRISHAN (Rec: 03/28/24 09:58 KRISHAN [id number]) Nutrition Malnutrition Evidence of Yes Malnutrition Exists Malnutrition (severe Acute Illness/Injury ): Evidenced By Suboptimal Energy Intake (Severe),Weight Loss (Severe) Clinical Problem Biting/Chewing Difficulty Etiology swallowing related to recent jaw fx 02/28/24 Signs/Symptoms as evidenced by pt self report Status Active Problem Acute Disease or Injury Related Malnutrition Etiology related to recent jaw fx (02/28/24) and inadequate energy intake Signs/Symptoms as evidenced by po intake < 75% of est nutritional needs and unplanned wt loss of ~10% x 1 month Status Active Problem Recommendation Dietitian As medically able, rec DANIELLE to liberal Regular soft and Recommendations/ bite size per pt request Changes As medically able, rec 8 oz chocolate ensure plus high protein tid w/ meals for increased nutrition if consumed. Lab / Micro Data 04/05/24 05:57 04/05/24 05:57 Labs: Laboratory Results - last 24 hr 04/04/24 16:15: Random Vancomycin 21.2 H 04/05/24 05:57: WBC 6.1, RBC 3.61 L, Hgb 10.5 L, Hct 32.7 L, MCV 90.6, MCH 29.1, MCHC 32.1, RDW Std Deviation 40.7, RDW Coeff of Pam 12.1, Plt Count 392, MPV 8.0, Immature Gran % (Auto) 0.300, Neut % (Auto) 70.9 H, Lymph % (Auto) 16.3 L, [place] % (Auto) 8.9, Eos % (Auto) 2.8, Baso % (Auto) 0.8, Absolute Neuts (auto) 4.3, Absolute Lymphs (auto) 0.99, Nucleated RBC % 0, Sodium 134 L, Potassium 3.2 L, Chloride 96 L, Carbon Dioxide 32.0, Anion Gap 6, BUN 13, Creatinine 1.15, Estim Creat Clear Calc 64.43, Est GFR (MDRD) Af Amer 83, Est GFR (MDRD) Non-Af 68, BUN/Creatinine Ratio 11.3, Glucose 103, Calcium 8.2 L, Random Vancomycin 16.6 H Micro: Microbiology 03/28/24 01:04 Blood Culture (Wb) - Anticubital Right Blood Culture - Final No growth in 5 days. 03/28/24 01:00 Blood Culture (Wb) - Anticubital Left Blood Culture - Final No growth in 5 days. 03/28/24 00:40 Stool Enteric Bacteriology - Final 03/28/24 06:00 Urine, Clean Catch Legionella Antigen - Final 03/28/24 06:00 Urine, Clean Catch Streptococcus pneumoniae Antigen (M - Final 03/28/24 01:02 Mucosa - Nose SARS-CoV-2, Influenza & RSV (PCR) - Final Radiography Diagnostic Testing: Radiology Impression KUB X-Ray 04/05/24 07:00 IMPRESSION: Redemonstration of diffuse mildly air distended loops of small and large bowel which again may relate to an ileus and/or enterocolitis and are not significantly changed in the interim. Reading Location: [facility] Physical Exam Const alert and no apparent distress HEENT head/scalp atraumatic and moist oral mucous membranes Resp normal respiratory effort, no retractions, no use of accessory muscles and clear to auscultation bilaterally Cardio regular rate, regular rhythm, S1 normal heart sound and S2 normal heart sound GI GI Narrative: distended. diffusely tender. high-pitched BS. Neuro Sensorium / Orientation: awake and alert Assessment & Plan Assessment/Plan (1) Constipation: PLAN: Had flexible sigmoidoscopy on 03/29 that was remarkable to marked stool. Improved visualization after lavage. No mass identified. CT on 03/15 showed 3.2 cm soft tissue density. Repeat CTs did not show this mass. Likely due to constipation v colitis. (2) Lung mass: PLAN: 4.8cm cavitary pulmonary opacity in MAXINE. Concerning to be infectious. AFB negative x 2. pulmonary recommending outpt follow up in 6 weeks. ID planning on 4 week course of doxy 100 BID, levofloxacin 500/d, metronidazole 500 TID. (3) Ileus: PLAN: General surgery following. Advanced to clears. Avoid narcotics. PLAN: Plan VTE prophylaxis: LMWH. Charges/Coding Visit Charges Inpatient E&M: 13433 Sub[facility] Hosp L2
[2024-04-05] MEDS: Pantoprazole Sodium 40 MG in 0.9% Normal Saline (100mL MB+) 100 ML 330 MG IV ×2 (10:41→21:14)
[2024-04-05] MEDS: Ketorolac 15 MG/ML Vial IV ×2 (17:06→23:00)
[2024-04-05] MEDS: Potassium Chloride Oral Tablet 20 MEQ 60 MEQ PO (17:06)
[2024-04-05] MEDS: Metoclopramide 10 MG/2 ML Vial 5 MG IV ×2 (17:07→23:00)
[2024-04-05] MEDS: Heparin Injection (Vial) 5,000 UNIT/ML VIAL 5000 UNIT SC (23:00)
[2024-04-06] VITALS (9 sets, daily range): BP systolic 122–149; BP diastolic 79–85; PULSE 80–105; RESP 18–24; TEMP 36.1–36.9; O2SAT 97–100; BMI 22.8
--- NOTE | 2024-04-06 01:27 | CT_ITS ---
PROCEDURE: CT CHEST, ABD, PELVIS WO CONT REASON FOR EXAM: Bowel obstruction. TECHNIQUE: Chest, abdomen and pelvis CT without intravenous contrast. Coronal and sagittal 2D reformatted images were provided. COMPARISON: Abdomen x-ray from 04/05/2024. CT abdomen/pelvis from 03/31/2024. CT chest, abdomen, pelvis from 03/28/2024. FINDINGS: CT CHEST: Solid viscera is degraded without intravenous contrast. Cardiac size is within normal limits. Thoracic aorta demonstrates a normal caliber with atherosclerotic calcifications. There are some small stable mediastinal lymph nodes. Coronary artery calcifications are present. There is trace pericardial fluid which is new. There is a small left and trace right pleural effusion which are new in the interim. Again identified is an irregular marginated consolidation in the left upper lobe measuring approximately 4.1 x 2.4 cm which is similar in size and demonstrates small cavitary foci within the consolidation with the cavitary component improved in the interim. There is surrounding ground-glass attenuation. Previously identified small ground-glass nodular opacity in the anterior aspect of the left lower lobe has resolved. Atelectatic changes in the right lung base obscures the previously identified mild reticulonodular opacities. No pneumothorax is present. Central airway is patent. Mild emphysematous changes are identified. Evaluation of the osseous structures demonstrates degenerative changes. There is redemonstration of [id number] anterior wedge compression fractures involving T4-T7 which are unchanged and age-indeterminate. CT ABDOMEN / PELVIS: Solid viscera is degraded without intravenous contrast. Nonenhanced liver, spleen, and adrenal glands are unremarkable. Gallbladder is distended without wall thickening. Visualized pancreas is unremarkable. Abdominal aorta demonstrates a normal caliber with atherosclerotic calcifications. No renal stones are present bilaterally. No hydronephrosis is identified bilaterally. Bilateral perinephric stranding is present which may be on a chronic basis. Urinary bladder is mildly distended with mild wall thickening. There is subcutaneous edema suggestive of anasarca. There is an area of significant thickening involving the rectosigmoid region. There is mild wall thickening of the descending colon and distal transverse colon. Colonic diverticulosis is identified. There are mildly dilated loops of small and large bowel with air-fluid leveling. There is a small amount of ascites within the abdomen and pelvis. No free air is identified. There are small bilateral inguinal lymph nodes. Degenerative changes are present. There are chronic appearing anterior wedge compression fractures of L1 and L2. CT/CT Chest, Abd, Pelvis WO Cont IMPRESSION: 1. Soft tissue thickening in the region of the rectosigmoid area which may rela te to malignancy. There is proximal distended small and large bowel loops with scattered air-fluid levels as well as wall thi ckening of the descending colon and distal transverse colon. Findings may relate to partial bowel obstruction secondary t o questionable mass in the rectosigmoid region. 2. Colonic diverticulosis. 3. Interval development of a small left and trace right pleural effusions with adjacent atelectasis. 4. Anasarca. 5. Redemonstration of a cavitary pulmonary consolidation in the left upper lob e which is similar in size however the cavitary component is mildly improved in the interim. Again findings may relate to capo gnancy versus infectious inflammatory process. 6. Additional findings as above. One or more dose reduction techniques were used (e.g., Automated exposure contr ol, adjustment of the mA and/or kV according to patient size, use of iterative reconstruction technique). Reading Location: [facility]
[2024-04-06] MEDS: Ipratropium/Albuterol Sulfate 3 ML AMPUL.NEB INHALATION ×4 (01:44→18:59)
[2024-04-06 01:53] LABS: Absolute Neutrophil Count 4.8 X10^3/uL (2.0-7.7); Basophil# 0.06 X10^3/uL; Basophil% 0.9 % (0-1); Eosinophil# 0.15 X10^3/uL; Eosinophils% 2.2 % (0-5); Hematocrit 30.5 % (40-54); Hemoglobin 10.2 g/dL (13.0-16.5); Lymphocyte % 17.6 % (19-41); Mean Corp Hgb Conc 33.4 g/dL (32-36); Mean Corpuscular Hgb 29.9 pg (27.0-32.0); Mean Corpuscular Volume 89.4 fL (80-94); Monocyte# 0.58 X10^3/uL; Monocyte% 8.5 % (0-10); NRBC Flagged by Analyzer 0 % (0-5); Neutrophil # 4.79 X10^3/uL (2.7-7.7); Neutrophil % 70.2 % (47-70); Platelet Count 401 K/mm3 (150-450); RBC Distribution Width CV 12.6 % (11.6-14.6); RBC Distribution Width SD 41.4 fl (35.1-43.9); Red Blood Count 3.41 M/mm3 (4.6-6.2); White Blood Count 6.8 K/mm3 (4.4-11.0)
[2024-04-06] MEDS: Ketorolac 15 MG/ML Vial IV ×5 (02:04→23:06)
[2024-04-06] MEDS: Furosemide 40 MG/4 ML Vial IV (02:04)
[2024-04-06] MEDS: 0.9% Saline Lock 10 ML Syringe IV ×3 (02:04→22:55)
[2024-04-06 02:07] LABS: Anion Gap 6 (5-15); BUN 13 mg/dL (7-18); BUN/Creat Ratio 11.9 RATIO (10-20); Calcium,Total 8.5 mg/dL (8.5-10.1); Chloride 98 mmol/L (98-107); Creatinine, Serum 1.09 mg/dL (0.70-1.30); EST Glomerular Filtration Rate 73 mL/min (>60); Est Glom Filt Rate - Afr Amer 88 mL/min (>60); Estimated Creatinine Clearance 67.98 ml/min; Glucose 97 mg/dL (74-106); Potassium 3.7 mmol/L (3.5-5.1); Sodium Level 137 mmol/L (136-145)
--- NOTE | 2024-04-06 02:17 | NURSING ---
[employer] WHEEL SCREW HOLE currently taking patient down to CT
[2024-04-06] MEDS: Metoclopramide 10 MG/2 ML Vial 5 MG IV ×4 (06:05→23:06)
[2024-04-06] MEDS: Dicyclomine 10 MG Capsule 20 MG PO ×3 (06:06→17:27)
[2024-04-06] MEDS: Vancomycin HCl 750 MG in 0.9% Normal Saline (250mL Bag) 250 ML 250 MG IV (06:06)
[2024-04-06] MEDS: Budesonide Respules 0.5 MG/2 ML AMPUL.NEB. INHALATION ×2 (07:13→18:59)
[2024-04-06] MEDS: Piperacil/Tazobactam 3.375 GM in 0.9% Normal Saline (50mL MB+) 50 ML IV ×3 (07:18→22:54)
--- NOTE | 2024-04-06 08:24 | PN.SURG_ITS ---
Subjective Subjective Patient evaluated resting comfortably in bed. He notes intermittent waves of abdominal pain. He states pain had increased. CT scan of chest/ab/pel was ordered last. He states he is passing very little flatus. He notes very minimal amount of nausea, vomiting. Objective Data Objective Data Vital Signs: Vital Signs Temp Pulse Resp BP Pulse Ox O2 Del Method O2 Flow Rate 97 F L 87 18 149/84 H 97 Nasal Cannula 2 04/06/24 02:02 04/06/24 02:02 04/06/24 02:02 04/06/24 02:02 04/06/24 02:02 04/06/24 02:02 04/06/24 02:02 Oxygen Flow Rate (L/min) 2 Oxygen Delivery Method Nasal Cannula Weight: 153 lb 14.122 oz Body Mass Index (BMI) 23.3 Intake & Output: Intake and Output for Last 24 Hours 04/04/24 04/05/24 04/06/24 23:59 23:59 23:59 Intake Total 850 / 850 1380 / 1380 315 / 315 Balance 850 / 850 1380 / 1380 315 / 315 Medical Nutrition Assessment Dietitian: Malnutrition Criteria Met Start: 03/28/24 09:58 Freq: Status: Active Protocol: Document 03/28/24 09:58 SLA (Rec: 03/28/24 09:58 SLA [id number]) Nutrition Malnutrition Evidence of Yes Malnutrition Exists Malnutrition (severe Acute Illness/Injury ): Evidenced By Suboptimal Energy Intake (Severe),Weight Loss (Severe) Clinical Problem Biting/Chewing Difficulty Etiology swallowing related to recent jaw fx 02/28/24 Signs/Symptoms as evidenced by pt self report Status Active Problem Acute Disease or Injury Related Malnutrition Etiology related to recent jaw fx (02/28/24) and inadequate energy intake Signs/Symptoms as evidenced by po intake < 75% of est nutritional needs and unplanned wt loss of ~10% x 1 month Status Active Problem Recommendation Dietitian As medically able, rec DANIELLE to liberal Regular soft and Recommendations/ bite size per pt request Changes As medically able, rec 8 oz chocolate ensure plus high protein tid w/ meals for increased nutrition if consumed. Lab / Micro Data 04/06/24 01:46 04/06/24 01:46 Labs: Laboratory Results - last 24 hr 04/06/24 01:46: WBC 6.8, RBC 3.41 L, Hgb 10.2 L, Hct 30.5 L, MCV 89.4, MCH 29.9, MCHC 33.4, RDW Std Deviation 41.4, RDW Coeff of Pam 12.6, Plt Count 401, MPV 8.0, Immature Gran % (Auto) 0.600, Neut % (Auto) 70.2 H, Lymph % (Auto) 17.6 L, [place] % (Auto) 8.5, Eos % (Auto) 2.2, Baso % (Auto) 0.9, Absolute Neuts (auto) 4.8, Absolute Lymphs (auto) 1.20, Nucleated RBC % 0, Sodium 137, Potassium 3.7, Chloride 98, Carbon Dioxide 33.0 H, Anion Gap 6, BUN 13, Creatinine 1.09, Estim Creat Clear Calc 67.98, Est GFR (MDRD) Af Amer 88, Est GFR (MDRD) Non-Af 73, BUN/Creatinine Ratio 11.9, Glucose 97, Calcium 8.5 Micro: Microbiology 03/28/24 01:04 Blood Culture (Wb) - Anticubital Right Blood Culture - Final No growth in 5 days. 03/28/24 01:00 Blood Culture (Wb) - Anticubital Left Blood Culture - Final No growth in 5 days. 03/28/24 00:40 Stool Enteric Bacteriology - Final 03/28/24 06:00 Urine, Clean Catch Legionella Antigen - Final 03/28/24 06:00 Urine, Clean Catch Streptococcus pneumoniae Antigen (M - Final 03/28/24 01:02 Mucosa - Nose SARS-CoV-2, Influenza & RSV (PCR) - Final Radiography Diagnostic Testing: Radiology Impression Chest/Abdomen/Pelvis CT 04/06/24 01:27 IMPRESSION: 1. Soft tissue thickening in the region of the rectosigmoid area which may relate to malignancy. There is proximal distended small and large bowel loops with scattered air-fluid levels as well as wall thickening of the descending colon and distal transverse colon. Findings may relate to partial bowel obstruction secondary to questionable mass in the rectosigmoid region. 2. Colonic diverticulosis. 3. Interval development of a small left and trace right pleural effusions with adjacent atelectasis. 4. Anasarca. 5. Redemonstration of a cavitary pulmonary consolidation in the left upper lobe which is similar in size however the cavitary component is mildly improved in the interim. Again findings may relate to malignancy versus infectious inflammatory process. 6. Additional findings as above. One or more dose reduction techniques were used (e.g., Automated exposure control, adjustment of the mA and/or kV according to patient size, use of iterative reconstruction technique). Reading Location: [facility] Physical Exam GI GI Narrative: Abdomen- soft, distended, bowel sounds present. Assessment & Plan Assessment/Plan (1) Ileus due to infection: PLAN: I have evaluated this patient in conjunction with Dr. Ashraf. He has independently evaluated this patient. Labs reviewed. Rectal suppository scheduled for daily CT scan chest/ab/pel demonstrated soft tissue thickening of rectosigmoid, proximal distended loops of small and large bowel as well as wall thickening of the descending colon and distal transverse colon. Colonic diverticulosis, redemonstration of cavitary pulmonary consolidation in the left upper lobe which is similar in size. Continue with full liquid diet at this time with clear ensure clear TID No surgical plans at this time Continue to avoid narcotic pain medication May shower today Dr. Ashraf to discuss patient with Dr. Turner We will continue to monitor this patient Charges/Coding Visit Charges Inpatient E&M: [address] [facility] Hosp L1
[2024-04-06] MEDS: Losartan Potassium 100 MG Tablet PO (09:53)
[2024-04-06] MEDS: Heparin Injection (Vial) 5,000 UNIT/ML VIAL 5000 UNIT SC ×2 (09:54→20:56)
[2024-04-06] MEDS: Pantoprazole Sodium 40 MG in 0.9% Normal Saline (100mL MB+) 100 ML 330 MG IV ×2 (09:54→20:56)
[2024-04-06] MEDS: Bisacodyl 10 MG Suppository RC (09:58)
--- NOTE | 2024-04-06 09:59 | PN.HOSP_ITS ---
Reason for Visit Reason for Visit: Diagnoses Unspecified infectious disease (03/28/24) Elevated white blood cell count, unspecified (03/28/24) Hypo-osmolality and hyponatremia (03/28/24) Other disorders of plasma-protein metabolism, not elsewhere classified (03/28/24) Nicotine dependence, unspecified, uncomplicated (03/28/24) Nicotine dependence, cigarettes, uncomplicated (03/28/24) Pneumonia, unspecified organism (03/28/24) Chronic obstructive pulmonary disease, unspecified (03/28/24) Other disorders of lung (03/28/24) Other specified noninfective gastroenteritis and colitis (03/28/24) Ileus, unspecified (03/28/24) Constipation, unspecified (03/28/24) Other specified diseases of intestine (03/28/24) Acute cystitis without hematuria (03/28/24) Unspecified abdominal pain (03/28/24) Difficulty in walking, not elsewhere classified (03/28/24) Weakness (03/28/24) Other nonspecific abnormal finding of lung field (03/28/24) Dependence on supplemental oxygen (03/28/24) Subjective Subjective Had BM with suppository. Abdominal pain improved. Objective Data Objective Data Vital Signs: Vital Signs Temp Pulse Resp BP Pulse Ox O2 Del Method O2 Flow Rate 36.3 C L 82 18 142/79 H 100 Nasal Cannula 2 04/06/24 09:50 04/06/24 09:50 04/06/24 09:50 04/06/24 09:50 04/06/24 09:50 04/06/24 09:50 04/06/24 09:50 Oxygen Flow Rate (L/min) 2 Oxygen Delivery Method Nasal Cannula Weight: 68.356 kg Body Mass Index (BMI) 22.8 Intake & Output: Intake and Output for Last 24 Hours 04/04/24 04/05/24 04/06/24 23:59 23:59 23:59 Intake Total 850 / 850 1380 / 1380 315 / 315 Balance 850 / 850 1380 / 1380 315 / 315 Medical Nutrition Assessment Dietitian: Malnutrition Criteria Met Start: 03/28/24 09:58 Freq: Status: Active Protocol: Document 03/28/24 09:58 KRISHAN (Rec: 03/28/24 09:58 SLA [id number]) Nutrition Malnutrition Evidence of Yes Malnutrition Exists Malnutrition (severe Acute Illness/Injury ): Evidenced By Suboptimal Energy Intake (Severe),Weight Loss (Severe) Clinical Problem Biting/Chewing Difficulty Etiology swallowing related to recent jaw fx 02/28/24 Signs/Symptoms as evidenced by pt self report Status Active Problem Acute Disease or Injury Related Malnutrition Etiology related to recent jaw fx (02/28/24) and inadequate energy intake Signs/Symptoms as evidenced by po intake < 75% of est nutritional needs and unplanned wt loss of ~10% x 1 month Status Active Problem Recommendation Dietitian As medically able, rec DANIELLE to liberal Regular soft and Recommendations/ bite size per pt request Changes As medically able, rec 8 oz chocolate ensure plus high protein tid w/ meals for increased nutrition if consumed. Lab / Micro Data 04/06/24 01:46 04/06/24 01:46 Labs: Laboratory Results - last 24 hr 04/06/24 01:46: WBC 6.8, RBC 3.41 L, Hgb 10.2 L, Hct 30.5 L, MCV 89.4, MCH 29.9, MCHC 33.4, RDW Std Deviation 41.4, RDW Coeff of Pam 12.6, Plt Count 401, MPV 8.0, Immature Gran % (Auto) 0.600, Neut % (Auto) 70.2 H, Lymph % (Auto) 17.6 L, [place] % (Auto) 8.5, Eos % (Auto) 2.2, Baso % (Auto) 0.9, Absolute Neuts (auto) 4.8, Absolute Lymphs (auto) 1.20, Nucleated RBC % 0, Sodium 137, Potassium 3.7, Chloride 98, Carbon Dioxide 33.0 H, Anion Gap 6, BUN 13, Creatinine 1.09, Estim Creat Clear Calc 67.98, Est GFR (MDRD) Af Amer 88, Est GFR (MDRD) Non-Af 73, BUN/Creatinine Ratio 11.9, Glucose 97, Calcium 8.5 Micro: Microbiology 03/28/24 01:04 Blood Culture (Wb) - Anticubital Right Blood Culture - Final No growth in 5 days. 03/28/24 01:00 Blood Culture (Wb) - Anticubital Left Blood Culture - Final No growth in 5 days. 03/28/24 00:40 Stool Enteric Bacteriology - Final 03/28/24 06:00 Urine, Clean Catch Legionella Antigen - Final 03/28/24 06:00 Urine, Clean Catch Streptococcus pneumoniae Antigen (M - Final 03/28/24 01:02 Mucosa - Nose SARS-CoV-2, Influenza & RSV (PCR) - Final Radiography Diagnostic Testing: Radiology Impression Chest/Abdomen/Pelvis CT 04/06/24 01:27 IMPRESSION: 1. Soft tissue thickening in the region of the rectosigmoid area which may relate to malignancy. There is proximal distended small and large bowel loops with scattered air-fluid levels as well as wall thickening of the descending colon and distal transverse colon. Findings may relate to partial bowel obstruction secondary to questionable mass in the rectosigmoid region. 2. Colonic diverticulosis. 3. Interval development of a small left and trace right pleural effusions with adjacent atelectasis. 4. Anasarca. 5. Redemonstration of a cavitary pulmonary consolidation in the left upper lobe which is similar in size however the cavitary component is mildly improved in the interim. Again findings may relate to malignancy versus infectious inflammatory process. 6. Additional findings as above. One or more dose reduction techniques were used (e.g., Automated exposure control, adjustment of the mA and/or kV according to patient size, use of iterative reconstruction technique). Reading Location: [facility] Physical Exam Const alert and no apparent distress HEENT head/scalp atraumatic and moist oral mucous membranes Resp normal respiratory effort, no retractions, no use of accessory muscles and clear to auscultation bilaterally Cardio regular rate, regular rhythm, S1 normal heart sound and S2 normal heart sound GI normal to inspection, nondistended, normoactive bowel sounds, soft to palpation, non-tender and non-distended Neuro Sensorium / Orientation: awake and alert Assessment & Plan Assessment/Plan (1) Constipation: PLAN: Had flexible sigmoidoscopy on 03/29 that was remarkable to marked stool. Improved visualization after lavage. No mass identified. CT on 03/15 showed 3.2 cm soft tissue density. CTA CAP: soft tissue thickening in the region of the rectosigmoid area. Proximal distended small and large bowel loops with scattered air-fluid levels as well as wall thickening o f the descending colon and distal transverse colon. (2) Lung mass: PLAN: 4.8cm cavitary pulmonary opacity in MAXINE. Concerning to be infectious. AFB negative x 2. pulmonary recommending outpt follow up in 6 weeks. ID planning on 4 week course of doxy 100 BID, levofloxacin 500/d, metronidazole 500 TID. (3) Ileus: PLAN: General surgery following. Advanced to full liquids. Avoid narcotics. PLAN: Plan VTE prophylaxis: LMWH. Charges/Coding Visit Charges Inpatient E&M: 99749 Subs Hosp L2
--- NOTE | 2024-04-06 13:12 | CHAPLAIN ---
Type of Pastoral Visit ___ Initial Visit _x__ Follow-up Visit ___ On-call Visit ___ General Patient Visit ___ Spiritual Assessment ___ Family Conference ___ Bereavement ___ Rapid Response ___ Code Blue ___ Other (describe below) Pastoral Care Referral From _x__ Patient ___ Family ___ Nurse ___ Physician ___ [employer] ___ Bacteriology Technician ___ Other (describe below) Sacrament/Intervention _x__ Active listening ___ Anointing ___ Scientologist ___ Bereavement ___ Communion ___ Janice exploration ___ ___ Life review _x__ Prayer ___ Reconciliation ___ Sacrament of Sick _x__ Supportive presence ___ Wedding ___ Other (describe below) Pastoral Comments follow up to this patient that had requested support at admission and was seen last week; pt expresses frustration in not getting better and having stomach pain, very little sleep, and lack of answers; pt welcomes presence and prayer but does not have other suggestions on how to help him; pt says that he just wants to get home
[2024-04-06 19:34] LABS: Vancomycin, Trough Level 19.2 ug/mL (5.0-15.0)
--- NOTE | 2024-04-06 19:58 | PCM.RX.CS ---
Consult Antibiotic Management Pharmacy has been consulted to manage selected antibiotic: Vancomycin Type of Intervention Type of Consult: Follow-up Prior Doses of Antibiotics Prior Doses of Antibiotics Received/Current Regimen: current dose is vanc 750mg IV q12h Labs Labs: Sodium 137 mmol/L (136-145) 04/06/24 01:46 Potassium 3.7 mmol/L (3.5-5.1) 04/06/24 01:46 Chloride 98 mmol/L (98-107) 04/06/24 01:46 Carbon Dioxide 33.0 mmol/L (21.0-32.0) H 04/06/24 01:46 Anion Gap 6 (5-15) 04/06/24 01:46 BUN 13 mg/dL (7-18) 04/06/24 01:46 Creatinine 1.09 mg/dL (0.70-1.30) 04/06/24 01:46 Est GFR (MDRD) Af Amer 88 mL/min (>60) 04/06/24 01:46 Est GFR (MDRD) Non-Af 73 mL/min (>60) 04/06/24 01:46 BUN/Creatinine Ratio 11.9 RATIO (10-20) 04/06/24 01:46 Glucose 97 mg/dL (74-106) 04/06/24 01:46 Vancomycin Trough 19.2 ug/mL (5.0-15.0) H 04/06/24 19:07 Random Vancomycin 16.6 ug/mL (0.0-15.0) H 04/05/24 05:57 Microbiology Microbiology: Microbiology 03/28/24 01:04 Blood Culture (Wb) - Anticubital Right Blood Culture - Final No growth in 5 days. 03/28/24 01:00 Blood Culture (Wb) - Anticubital Left Blood Culture - Final No growth in 5 days. 03/28/24 00:40 Stool Enteric Bacteriology - Final 03/28/24 06:00 Urine, Clean Catch Legionella Antigen - Final 03/28/24 06:00 Urine, Clean Catch Streptococcus pneumoniae Antigen (M - Final 03/28/24 01:02 Mucosa - Nose SARS-CoV-2, Influenza & RSV (PCR) - Final Dosing Weight Weight used for dosin.4 kg Estimated Creatinine Clearance Estimated Creatinine Clearance: 68 ml/min Goal Trough Goal Trough: 15-20 mcg/mL Pharmacy Plan for Drug Dosing Pharmacy Plan for Drug Dosing: The vanc trough drawn at 19:07 tonight (approximately 13 hours after the previous dose) was 19.2. This is in goal range but would have been a little higher if drawn closer to the 11.5-12 hour jose. Since the trough is creeping up again and already at the higher end of the goal range, will decrease the dose slightly to 500mg q12h. Repeat a trough before the 4th dose. If this next trough is high, may need to switch to q24h dosing. Pharmacy Service will continue to monitor and adjust dosing as required. Follow-Up Labs Follow-Up Labs: Trough: Vancomycin Date/Time Labs Ordered Labs to be done on [date and time ordered]: 04/08/24 08:30
[2024-04-06] MEDS: Vancomycin IV 500 MG/100 ML BAG 100 MG IV (21:27)
[2024-04-06] MEDS: Albuterol 2.5 MG/3 ML VIAL.NEB. INHALATION (23:38)
[2024-04-07] VITALS (10 sets, daily range): BP systolic 129–153; BP diastolic 82–91; PULSE 89–105; RESP 15–22; TEMP 36.4–37; O2SAT 96–100; BMI 22.8
[2024-04-07] MEDS: Acetaminophen 325 MG Tablet 650 MG PO ×2 (02:59→23:53)
[2024-04-07] MEDS: Piperacil/Tazobactam 3.375 GM in 0.9% Normal Saline (50mL MB+) 50 ML IV ×3 (05:21→22:03)
[2024-04-07] MEDS: Ketorolac 15 MG/ML Vial IV ×4 (05:21→23:53)
[2024-04-07] MEDS: Metoclopramide 10 MG/2 ML Vial 5 MG IV ×4 (05:22→23:53)
[2024-04-07] MEDS: Dicyclomine 10 MG Capsule 20 MG PO ×3 (07:40→15:49)
--- NOTE | 2024-04-07 07:45 | PCM.PN.HOSP ---
Reason for Visit Reason for Visit: Diagnoses Unspecified infectious disease (03/28/24) Elevated white blood cell count, unspecified (03/28/24) Hypo-osmolality and hyponatremia (03/28/24) Other disorders of plasma-protein metabolism, not elsewhere classified (03/28/24) Nicotine dependence, unspecified, uncomplicated (03/28/24) Nicotine dependence, cigarettes, uncomplicated (03/28/24) Pneumonia, unspecified organism (03/28/24) Chronic obstructive pulmonary disease, unspecified (03/28/24) Other disorders of lung (03/28/24) Other specified noninfective gastroenteritis and colitis (03/28/24) Ileus, unspecified (03/28/24) Constipation, unspecified (03/28/24) Other specified diseases of intestine (03/28/24) Acute cystitis without hematuria (03/28/24) Unspecified abdominal pain (03/28/24) Difficulty in walking, not elsewhere classified (03/28/24) Weakness (03/28/24) Other nonspecific abnormal finding of lung field (03/28/24) Dependence on supplemental oxygen (03/28/24) Subjective Subjective Abdomen still painful, but having BMs. Still short of breath. Objective Data Objective Data Vital Signs: Vital Signs Temp Pulse Resp BP Pulse Ox O2 Del Method O2 Flow Rate 37.0 C 89 18 153/91 H 98 Nasal Cannula 2 04/07/24 02:51 04/07/24 02:51 04/07/24 02:51 04/07/24 02:51 04/07/24 02:51 04/07/24 02:53 04/07/24 02:53 Oxygen Flow Rate (L/min) 2 Oxygen Delivery Method Nasal Cannula Weight: 68.35 kg Body Mass Index (BMI) 22.8 Intake & Output: Intake and Output for Last 24 Hours 04/05/24 04/06/24 04/07/24 23:59 23:59 23:59 Intake Total 1380 / 1380 1535 / 1535 170 / 170 Balance 1380 / 1380 1535 / 1535 170 / 170 Medical Nutrition Assessment Dietitian: Malnutrition Criteria Met Start: 03/28/24 09:58 Freq: Status: Active Protocol: Document 03/28/24 09:58 KRISHAN (Rec: 03/28/24 09:58 SLA [id number]) Nutrition Malnutrition Evidence of Yes Malnutrition Exists Malnutrition (severe Acute Illness/Injury ): Evidenced By Suboptimal Energy Intake (Severe),Weight Loss (Severe) Clinical Problem Biting/Chewing Difficulty Etiology swallowing related to recent jaw fx 02/28/24 Signs/Symptoms as evidenced by pt self report Status Active Problem Acute Disease or Injury Related Malnutrition Etiology related to recent jaw fx (02/28/24) and inadequate energy intake Signs/Symptoms as evidenced by po intake < 75% of est nutritional needs and unplanned wt loss of ~10% x 1 month Status Active Problem Recommendation Dietitian As medically able, rec DANIELLE to liberal Regular soft and Recommendations/ bite size per pt request Changes As medically able, rec 8 oz chocolate ensure plus high protein tid w/ meals for increased nutrition if consumed. Lab / Micro Data 04/06/24 01:46 04/06/24 01:46 Labs: Laboratory Results - last 24 hr 04/06/24 19:07: Vancomycin Trough 19.2 H Micro: Microbiology 03/28/24 01:04 Blood Culture (Wb) - Anticubital Right Blood Culture - Final No growth in 5 days. 03/28/24 01:00 Blood Culture (Wb) - Anticubital Left Blood Culture - Final No growth in 5 days. 03/28/24 00:40 Stool Enteric Bacteriology - Final 03/28/24 06:00 Urine, Clean Catch Legionella Antigen - Final 03/28/24 06:00 Urine, Clean Catch Streptococcus pneumoniae Antigen (M - Final 03/28/24 01:02 Mucosa - Nose SARS-CoV-2, Influenza & RSV (PCR) - Final Physical Exam Const alert and no apparent distress HEENT head/scalp atraumatic and moist oral mucous membranes Resp normal respiratory effort and no retractions Cardio regular rate, regular rhythm, S1 normal heart sound and S2 normal heart sound GI normal to inspection, nondistended, normoactive bowel sounds, soft to palpation, non-tender, non-distended and hepatosplenomegaly Extremity Extremity Narrative: 2+ LE edema. Neuro Sensorium / Orientation: awake and alert Assessment & Plan Assessment/Plan (1) Constipation: PLAN: Had flexible sigmoidoscopy on 03/29 that was remarkable to marked stool. Improved visualization after lavage. No mass identified. CT on 03/15 showed 3.2 cm soft tissue density. CTA CAP: soft tissue thickening in the region of the rectosigmoid area. Proximal distended small and large bowel loops with scattered air-fluid levels as well as wall thickening of the descending colon and distal transverse colon. (2) Lung mass: PLAN: 4.8cm cavitary pulmonary opacity in MAXINE. Concerning to be infectious. AFB negative x 2. pulmonary recommending outpt follow up in 6 weeks. ID planning on 4 week course of doxy 100 BID, levofloxacin 500/d, metronidazole 500 TID. (3) Ileus: PLAN: General surgery following. Advanced to full liquids. Avoid narcotics. on Metoclopramide. Has had some response with suppositories. PLAN: Plan VTE prophylaxis: LMWH. Charges/Coding Visit Charges Inpatient E&M: 11723 Subs Hosp L2
[2024-04-07] MEDS: Ipratropium/Albuterol Sulfate 3 ML AMPUL.NEB INHALATION ×3 (08:04→20:20)
[2024-04-07] MEDS: Budesonide Respules 0.5 MG/2 ML AMPUL.NEB. INHALATION ×2 (08:04→20:20)
--- NOTE | 2024-04-07 08:11 | PCM.PN.SRG ---
Subjective Subjective Patient evaluated resting comfortably in bed. He denies any nausea, vomiting this morning. He notes having abdominal pain/discomfort, however when asked where the pain is located, he states he is not having any abdominal pain. He claims he feels like he is going to burst, however his abdominal exam is benign. He notes his feet and ankles are very swollen. He states he has more shortness of breath this morning. He notes having flatus and loose stools all night long. Objective Data Objective Data Vital Signs: Vital Signs Temp Pulse Resp BP Pulse Ox O2 Del Method O2 Flow Rate 97.6 F L 89 18 151/90 H 100 Nasal Cannula 2 04/07/24 07:46 04/07/24 07:46 04/07/24 07:46 04/07/24 07:46 04/07/24 07:46 04/07/24 07:55 04/07/24 07:55 Oxygen Flow Rate (L/min) 2 Oxygen Delivery Method Nasal Cannula Weight: 150 lb 10.975 oz Body Mass Index (BMI) 22.8 Intake & Output: Intake and Output for Last 24 Hours 04/05/24 04/06/24 04/07/24 23:59 23:59 23:59 Intake Total 1380 / 1380 1535 / 1535 170 / 170 Balance 1380 / 1380 1535 / 1535 170 / 170 Medical Nutrition Assessment Dietitian: Malnutrition Criteria Met Start: 03/28/24 09:58 Freq: Status: Active Protocol: Document 03/28/24 09:58 SLA (Rec: 03/28/24 09:58 SLA [id number]) Nutrition Malnutrition Evidence of Yes Malnutrition Exists Malnutrition (severe Acute Illness/Injury ): Evidenced By Suboptimal Energy Intake (Severe),Weight Loss (Severe) Clinical Problem Biting/Chewing Difficulty Etiology swallowing related to recent jaw fx 02/28/24 Signs/Symptoms as evidenced by pt self report Status Active Problem Acute Disease or Injury Related Malnutrition Etiology related to recent jaw fx (02/28/24) and inadequate energy intake Signs/Symptoms as evidenced by po intake < 75% of est nutritional needs and unplanned wt loss of ~10% x 1 month Status Active Problem Recommendation Dietitian As medically able, rec DANIELLE to liberal Regular soft and Recommendations/ bite size per pt request Changes As medically able, rec 8 oz chocolate ensure plus high protein tid w/ meals for increased nutrition if consumed. Lab / Micro Data 04/06/24 01:46 04/06/24 01:46 Labs: Laboratory Results - last 24 hr 04/06/24 19:07: Vancomycin Trough 19.2 H Micro: Microbiology 03/28/24 01:04 Blood Culture (Wb) - Anticubital Right Blood Culture - Final No growth in 5 days. 03/28/24 01:00 Blood Culture (Wb) - Anticubital Left Blood Culture - Final No growth in 5 days. 03/28/24 00:40 Stool Enteric Bacteriology - Final 03/28/24 06:00 Urine, Clean Catch Legionella Antigen - Final 03/28/24 06:00 Urine, Clean Catch Streptococcus pneumoniae Antigen (M - Final 03/28/24 01:02 Mucosa - Nose SARS-CoV-2, Influenza & RSV (PCR) - Final Physical Exam GI GI Narrative: Abdomen- soft, benign to deep palpation. Less distention from yesterday. Assessment & Plan Assessment/Plan (1) Ileus due to infection: PLAN: I am following this patient in conjunction with Dr. Ashraf in Dr. Ortega's absence. He has independently evaluated this patient. Patient's abdominal exam is benign this morning He seems to have bowel function with passing flatus and having bowel movements KUB ordered for today If KUB seems improved, possibly advance diet later today It appears patient has significant bilateral lower extremity edema and may benefit from some Lasix, which may improve breathing. Encouraged patient to be up in the chair He is able to shower We will continue to monitor this patient Charges/Coding Visit Charges Inpatient E&M: 50012 Subs Hosp L1
[2024-04-07] MEDS: Losartan Potassium 100 MG Tablet PO (09:07)
[2024-04-07] MEDS: Heparin Injection (Vial) 5,000 UNIT/ML VIAL 5000 UNIT SC ×2 (09:08→20:55)
[2024-04-07] MEDS: Vancomycin IV 500 MG/100 ML BAG 100 MG IV (09:08)
[2024-04-07] MEDS: Pantoprazole Sodium 40 MG in 0.9% Normal Saline (100mL MB+) 100 ML 330 MG IV ×2 (09:08→20:55)
[2024-04-07] MEDS: Bisacodyl 10 MG Suppository RC (09:11)
--- NOTE | 2024-04-07 12:15 | RAD_ITS ---
PROCEDURE: ABD INC DECUB AND/OR ERECT REASON FOR EXAM: Ileus. TECHNIQUE: Three-view supine and upright abdomen. COMPARISON: Abdomen study of 04/05/2024. RAD/Abd Inc Decub and/or Erect IMPRESSION: No evidence of pneumoperitoneum. Multiple dilated small bowel loops are seen, but clearly somewhat improved sinc e the earlier study of 04/05/2024. Findings are consistent with the history of adynamic ileus. No mass or mass effect is noted. No interval osseous change is seen. Reading Location: [id number]
[2024-04-07] MEDS: 0.9% Saline Lock 10 ML Syringe IV ×2 (17:28→21:03)
[2024-04-07] MEDS: MELATONIN 3 MG TABLET 6 MG PO (22:03)
[2024-04-08] VITALS (8 sets, daily range): BP systolic 134–150; BP diastolic 80–90; PULSE 89–113; RESP 16–20; TEMP 36.6–36.8; O2SAT 88–98; BMI 24.0
[2024-04-08] MEDS: Vancomycin IV 500 MG/100 ML BAG 100 MG IV (03:03)
[2024-04-08] MEDS: Piperacil/Tazobactam 3.375 GM in 0.9% Normal Saline (50mL MB+) 50 ML IV (05:49)
[2024-04-08] MEDS: Ketorolac 15 MG/ML Vial IV (05:49)
[2024-04-08] MEDS: Metoclopramide 10 MG/2 ML Vial 5 MG IV (05:49)
--- NOTE | 2024-04-08 06:40 | RAD_ITS ---
PROCEDURE: CHEST 1 VIEW (PORTABLE) REASON FOR EXAM: 63-year-old male, shortness of breath and weakness. TECHNIQUE: Frontal view of the chest. COMPARISON: CT chest, abdomen and pelvis 04/06/2024, chest radiograph 03/31/2024. FINDINGS: The heart size is normal. Unchanged left upper lobe opacity measuring approximately 3.7 cm. Bibasilar atelectasis. Trace bilateral pleural effusions. No pneumothorax. Degenerative changes are identified within the thoracic spine. RAD/Chest 1 View (Portable) IMPRESSION: Redemonstration of left upper lobe opacity, better evaluated on recent CT chest . Trace bilateral pleural effusions. Reading Location: [id number]
[2024-04-08 06:58] LABS: Absolute Lymphocyte Count 1.17 X10^3/uL (0.83-4.51); Absolute Neutrophil Count 5.2 X10^3/uL (2.0-7.7); Basophil% 1.3 % (0-1); Eosinophil# 0.41 X10^3/uL; Eosinophils% 5.3 % (0-5); Hematocrit 29.7 % (40-54); Hemoglobin 9.7 g/dL (13.0-16.5); Lymphocyte # 1.17 X10^3/ul (0.83-4.51); Mean Corp Hgb Conc 32.7 g/dL (32-36); Mean Corpuscular Hgb 29.5 pg (27.0-32.0); Mean Corpuscular Volume 90.3 fL (80-94); Mean Platelet Vol. 8.4 fl (6.2-12.0); Monocyte# 0.88 X10^3/uL; Monocyte% 11.3 % (0-10); NRBC Flagged by Analyzer 0 % (0-5); Neutrophil # 5.15 X10^3/uL (2.7-7.7); Neutrophil % 66.2 % (47-70); Platelet Count 510 K/mm3 (150-450); RBC Distribution Width CV 12.4 % (11.6-14.6); RBC Distribution Width SD 41.1 fl (35.1-43.9); Red Blood Count 3.29 M/mm3 (4.6-6.2); White Blood Count 7.8 K/mm3 (4.4-11.0)
[2024-04-08] MEDS: Furosemide 40 MG/4 ML Vial IV (06:59)
[2024-04-08] MEDS: Ipratropium/Albuterol Sulfate 3 ML AMPUL.NEB INHALATION ×2 (07:06→13:34)
[2024-04-08] MEDS: Budesonide Respules 0.5 MG/2 ML AMPUL.NEB. INHALATION (07:06)
[2024-04-08 07:39] LABS: BNP,B-Type NATRIURETIC PEPTIDE 84.9 pg/mL (0-100)
[2024-04-08 08:00] LABS: ALB/GLOB Ratio 0.6 RATIO (0.9-2.4); AST(SGOT) 19 U/L (15-37); Alanine Aminotransfer ALT/SGPT 16 U/L (16-61); Alkaline Phosphatase 61 U/L (45-117); Anion Gap 5 (5-15); BUN 13 mg/dL (7-18); BUN/Creat Ratio 12.5 RATIO (10-20); Calcium,Total 8.5 mg/dL (8.5-10.1); Chloride 94 mmol/L (98-107); Creatinine, Serum 1.04 mg/dL (0.70-1.30); EST Glomerular Filtration Rate 77 mL/min (>60); Est Glom Filt Rate - Afr Amer 93 mL/min (>60); Estimated Creatinine Clearance 71.25 ml/min; Globulin 3.6 g/dL (2.2-4.2); Glucose 87 mg/dL (74-106); Magnesium 2.1 mg/dL (1.6-2.6); Phosphorus 2.5 mg/dL (2.5-4.9); Potassium 3.8 mmol/L (3.5-5.1); Protein, Total 5.6 g/dL (6.4-8.2); Sodium Level 132 mmol/L (136-145)
--- NOTE | 2024-04-08 08:29 | PN.HOSP_ITS ---
Reason for Visit Reason for Visit: Diagnoses Unspecified infectious disease (03/28/24) Elevated white blood cell count, unspecified (03/28/24) Hypo-osmolality and hyponatremia (03/28/24) Other disorders of plasma-protein metabolism, not elsewhere classified (03/28/24) Nicotine dependence, unspecified, uncomplicated (03/28/24) Nicotine dependence, cigarettes, uncomplicated (03/28/24) Pneumonia, unspecified organism (03/28/24) Chronic obstructive pulmonary disease, unspecified (03/28/24) Other disorders of lung (03/28/24) Other specified noninfective gastroenteritis and colitis (03/28/24) Ileus, unspecified (03/28/24) Constipation, unspecified (03/28/24) Other specified diseases of intestine (03/28/24) Acute cystitis without hematuria (03/28/24) Unspecified abdominal pain (03/28/24) Difficulty in walking, not elsewhere classified (03/28/24) Weakness (03/28/24) Other nonspecific abnormal finding of lung field (03/28/24) Dependence on supplemental oxygen (03/28/24) Subjective Subjective Still with LE edema. Lost IV access. Objective Data Objective Data Vital Signs: Vital Signs Temp Pulse Resp BP Pulse Ox O2 Del Method O2 Flow Rate 36.6 C 90 20 H 140/83 H 98 Nasal Cannula 2 04/08/24 02:50 04/08/24 03:00 04/08/24 02:50 04/08/24 06:58 04/08/24 02:50 04/08/24 03:00 04/08/24 03:00 Oxygen Flow Rate (L/min) 2 Oxygen Delivery Method Nasal Cannula Weight: 71.9 kg Body Mass Index (BMI) 24.0 Intake & Output: Intake and Output for Last 24 Hours 04/06/24 04/07/24 04/08/24 23:59 23:59 23:59 Intake Total 1535 / 1535 990 / 990 150 / 150 Balance 1535 / 1535 990 / 990 150 / 150 Medical Nutrition Assessment Dietitian: Malnutrition Criteria Met Start: 03/28/24 09:58 Freq: Status: Active Protocol: Document 03/28/24 09:58 KRISHAN (Rec: 03/28/24 09:58 KRISHAN [id number]) Nutrition Malnutrition Evidence of Yes Malnutrition Exists Malnutrition (severe Acute Illness/Injury ): Evidenced By Suboptimal Energy Intake (Severe),Weight Loss (Severe) Clinical Problem Biting/Chewing Difficulty Etiology swallowing related to recent jaw fx 02/28/24 Signs/Symptoms as evidenced by pt self report Status Active Problem Acute Disease or Injury Related Malnutrition Etiology related to recent jaw fx (02/28/24) and inadequate energy intake Signs/Symptoms as evidenced by po intake < 75% of est nutritional needs and unplanned wt loss of ~10% x 1 month Status Active Problem Recommendation Dietitian As medically able, rec DANIELLE to liberal Regular soft and Recommendations/ bite size per pt request Changes As medically able, rec 8 oz chocolate ensure plus high protein tid w/ meals for increased nutrition if consumed. Lab / Micro Data 04/08/24 06:25 04/08/24 06:25 Labs: Laboratory Results - last 24 hr 04/08/24 06:25: WBC 7.8, RBC 3.29 L, Hgb 9.7 L, Hct 29.7 L, MCV 90.3, MCH 29.5, MCHC 32.7, RDW Std Deviation 41.1, RDW Coeff of Pam 12.4, Plt Count 510 H, MPV 8.4, Immature Gran % (Auto) 0.900, Neut % (Auto) 66.2, Lymph % (Auto) 15.0 L, M georgie % (Auto) 11.3 H, Eos % (Auto) 5.3 H, Baso % (Auto) 1.3 H, Absolute Neuts (auto) 5.2, Absolute Lymphs (auto) 1.17, Nucleated RBC % 0, Sodium 132 L, Potassium 3.8, Chloride 94 L, Carbon Dioxide 33.0 H, Anion Gap 5, BUN 13, Creatinine 1.04, Estim Creat Clear Calc 71.25, Est GFR (MDRD) Af Amer 93, Est GFR (MDRD) Non-Af 77, BUN/Creatinine Ratio 12.5, Glucose 87, Calcium 8.5, Phosphorus 2.5, Magnesium 2.1, Total Bilirubin 0.30, AST 19, ALT 16, Alkaline Phosphatase 61, B-Natriuretic Peptide 84.9, Total Protein 5.6 L, Albumin 2.0 L, Globulin 3.6, Albumin/Globulin Ratio 0.6 L Micro: Microbiology 03/28/24 01:04 Blood Culture (Wb) - Anticubital Right Blood Culture - Final No growth in 5 days. 03/28/24 01:00 Blood Culture (Wb) - Anticubital Left Blood Culture - Final No growth in 5 days. 03/28/24 00:40 Stool Enteric Bacteriology - Final 03/28/24 06:00 Urine, Clean Catch Legionella Antigen - Final 03/28/24 06:00 Urine, Clean Catch Streptococcus pneumoniae Antigen (M - Final 03/28/24 01:02 Mucosa - Nose SARS-CoV-2, Influenza & RSV (PCR) - Final Radiography Diagnostic Testing: Radiology Impression Abdomen X-Ray 04/07/24 12:15 IMPRESSION: No evidence of pneumoperitoneum. Multiple dilated small bowel loops are seen, but clearly somewhat improved since the earlier study of 04/05/2024. Findings are consistent with the history of adynamic ileus. No mass or mass effect is noted. No interval osseous change is seen. Reading Location: [address] Chest X-Ray 04/08/24 06:40 IMPRESSION: Redemonstration of left upper lobe opacity, better evaluated on recent CT chest. Trace bilateral pleural effusions. Reading Location: [facility] Physical Exam Const alert and no apparent distress Constitutional Narrative: flat affect HEENT head/scalp atraumatic and moist oral mucous membranes Resp normal respiratory effort, no retractions, no use of accessory muscles and clear to auscultation bilaterally Cardio regular rate, regular rhythm, S1 normal heart sound and S2 normal heart sound GI normal to inspection, nondistended, normoactive bowel sounds, soft to palpation, non-tender and non-distended Extremity Extremity Narrative: 2+ LE edema. Assessment & Plan Assessment/Plan (1) Constipation: PLAN: Had flexible sigmoidoscopy on 03/29 that was remarkable to marked stool. Improved visualization after lavage. No mass identified. CT on 03/15 showed 3.2 cm soft tissue density. CTA CAP: soft tissue thickening in the region of the rectosigmoid area. Proximal distended small and large bowel loops with scattered air-fluid levels as well as wall thickening of the descending colon and distal transverse colon. (2) Lung mass: PLAN: 4.8cm cavitary pulmonary opacity in MAXINE. Concerning to be infectious. AFB negative x 2. pulmonary recommending outpt follow up in 6 weeks. ID planning on 4 week course of doxy 100 BID, levofloxacin 500/d, metronidazole 500 TID. (3) Ileus: PLAN: Resolved. General surgery following. Advanced to full liquids. Avoid narcotics. on Metoclopramide. Has had some response with suppositories. PLAN: Plan VTE prophylaxis: LMWH. Discharge home with oxygen. Charges/Coding Visit Charges Inpatient E&M: 39545 Subs Hosp L2
--- NOTE | 2024-04-08 09:30 | CASEMGMT ---
WHIT ROBINS received call from and discussed needs at discharge. WHIT ROBINS reviewed therapy notes with and is agreeable to outpatient therapy at discharge. voiced concern about readmissions and did not want patient discharged too soon. WHIT ROBINS unaware of patient discharging at this time. had no further questions or concerns. WHIT ROBINS will assist with obtaining script for outpatient therapy.
[2024-04-08] MEDS: Heparin Injection (Vial) 5,000 UNIT/ML VIAL 5000 UNIT SC (10:01)
[2024-04-08] MEDS: Dicyclomine 10 MG Capsule 20 MG PO ×2 (10:02→16:29)
[2024-04-08] MEDS: Losartan Potassium 100 MG Tablet PO ×2 (10:02→10:14)
--- NOTE | 2024-04-08 10:21 | PCM.PN.ID ---
Physical Exam Narrative Still some cough and dyspnea. Abd feeling better. No fever. Const alert and no apparent distress General Appearance: cooperative Resp Auscultation: rhonchi and wheezes Cardio regular rate and regular rhythm GI soft to palpation, non-tender and non-distended Skin no rashes or lesions noted ID ID: Route of nutrition/ use of supplements: [] Nutritional Intake: [] IV Site: [] Enriquez Catheter: [] Assessment & Plan Assessment/Plan (1) Cavitary lesion of lung: PLAN: Seen by pulm. Sputum AFB neg smear x2. Sputum cx not done. Still some abd pain. CT repeated. Will change vanc/zosyn to 4 weeks of po doxy 100mg bid, levaquin 500mg daily, flagyl 500mg tid for lung coverage with repeat imaging as outpt to confirm abscess resolution. He cannot drink etoh while on flagyl. ID followup in 2 weeks. Will follow (2) COPD (chronic obstructive pulmonary disease):
--- NOTE | 2024-04-08 10:31 | PN.SURG_ITS ---
Subjective Subjective Patient tolerating diet having bowel function. Patient's not eating as much as he does not like the food. Objective Data Objective Data Vital Signs: Vital Signs Temp Pulse Resp BP Pulse Ox O2 Del Method O2 Flow Rate 98.3 F 106 H 16 134/80 H 94 Room Air 3 04/08/24 10:15 04/08/24 10:15 04/08/24 10:15 04/08/24 10:15 04/08/24 10:15 04/08/24 10:15 04/08/24 09:43 Oxygen Flow Rate (L/min) 3 Oxygen Delivery Method Room Air Weight: 158 lb 8.198 oz Body Mass Index (BMI) 24.0 Intake & Output: Intake and Output for Last 24 Hours 04/06/24 04/07/24 04/08/24 23:59 23:59 23:59 Intake Total 1535 / 1535 990 / 990 150 / 150 Balance 1535 / 1535 990 / 990 150 / 150 Medical Nutrition Assessment Dietitian: Malnutrition Criteria Met Start: 03/28/24 09:58 Freq: Status: Active Protocol: Document 03/28/24 09:58 SLA (Rec: 03/28/24 09:58 SLA [id number]) Nutrition Malnutrition Evidence of Yes Malnutrition Exists Malnutrition (severe Acute Illness/Injury ): Evidenced By Suboptimal Energy Intake (Severe),Weight Loss (Severe) Clinical Problem Biting/Chewing Difficulty Etiology swallowing related to recent jaw fx 02/28/24 Signs/Symptoms as evidenced by pt self report Status Active Problem Acute Disease or Injury Related Malnutrition Etiology related to recent jaw fx (02/28/24) and inadequate energy intake Signs/Symptoms as evidenced by po intake < 75% of est nutritional needs and unplanned wt loss of ~10% x 1 month Status Active Problem Recommendation Dietitian As medically able, rec DANIELLE to liberal Regular soft and Recommendations/ bite size per pt request Changes As medically able, rec 8 oz chocolate ensure plus high protein tid w/ meals for increased nutrition if consumed. Lab / Micro Data 04/08/24 06:25 04/08/24 06:25 Labs: Laboratory Results - last 24 hr 04/08/24 06:25: WBC 7.8, RBC 3.29 L, Hgb 9.7 L, Hct 29.7 L, MCV 90.3, MCH 29.5, MCHC 32.7, RDW Std Deviation 41.1, RDW Coeff of Pam 12.4, Plt Count 510 H, MPV 8.4, Immature Gran % (Auto) 0.900, Neut % (Auto) 66.2, Lymph % (Auto) 15.0 L, M georgie % (Auto) 11.3 H, Eos % (Auto) 5.3 H, Baso % (Auto) 1.3 H, Absolute Neuts (auto) 5.2, Absolute Lymphs (auto) 1.17, Nucleated RBC % 0, Sodium 132 L, Potassium 3.8, Chloride 94 L, Carbon Dioxide 33.0 H, Anion Gap 5, BUN 13, Creatinine 1.04, Estim Creat Clear Calc 71.25, Est GFR (MDRD) Af Amer 93, Est GFR (MDRD) Non-Af 77, BUN/Creatinine Ratio 12.5, Glucose 87, Calcium 8.5, Phosphorus 2.5, Magnesium 2.1, Total Bilirubin 0.30, AST 19, ALT 16, Alkaline Phosphatase 61, B-Natriuretic Peptide 84.9, Total Protein 5.6 L, Albumin 2.0 L, Globulin 3.6, Albumin/Globulin Ratio 0.6 L Micro: Microbiology 03/28/24 01:04 Blood Culture (Wb) - Anticubital Right Blood Culture - Final No growth in 5 days. 03/28/24 01:00 Blood Culture (Wb) - Anticubital Left Blood Culture - Final No growth in 5 days. 03/28/24 00:40 Stool Enteric Bacteriology - Final 03/28/24 06:00 Urine, Clean Catch Legionella Antigen - Final 03/28/24 06:00 Urine, Clean Catch Streptococcus pneumoniae Antigen (M - Final 03/28/24 01:02 Mucosa - Nose SARS-CoV-2, Influenza & RSV (PCR) - Final Radiography Diagnostic Testing: Radiology Impression Abdomen X-Ray 04/07/24 12:15 IMPRESSION: No evidence of pneumoperitoneum. Multiple dilated small bowel loops are seen, but clearly somewhat improved since the earlier study of 04/05/2024. Findings are consistent with the history of adynamic ileus. No mass or mass effect is noted. No interval osseous change is seen. Reading Location: [id number] Chest X-Ray 04/08/24 06:40 IMPRESSION: Redemonstration of left upper lobe opacity, better evaluated on recent CT chest. Trace bilateral pleural effusions. Reading Location: [id number] Physical Exam Const oriented x3 and no apparent distress Cardio regular rate GI soft to palpation and non-tender Assessment & Plan Assessment/Plan (1) Ileus due to infection: PLAN: Plan Patient's ileus appears to be resolving as he been having bowel function. Patient states his belly may be slightly larger than normal. Patient is tolerating diet but does not really care for the food here. No plans for any acute surgical intervention will continue to follow. Suellen Billingsley M.D. Pager: [phone] [facility] [address] [place] [address], [address] [place] [id number] Office: [phone] Charges/Coding Visit Charges Inpatient E&M: 05991 Subs Hosp L2
[2024-04-08] MEDS: metroNIDAZOLE 500 MG Tablet PO ×2 (11:26→16:33)
[2024-04-08] MEDS: levoFLOXacin 500 MG Tablet PO (11:26)
--- NOTE | 2024-04-08 16:15 | PCM.DC.SUM ---
Providers Date of Admission: 03/28/24 Primary Care Physician: Dr. Alfonso Fortune MD Consultations 03/28/24 05:03 Consult: General Surgery Routine Consulting Provider: Jordan Ortega Reason for Consult: Stercoral Colitis and Sigmoid Mass. EMERGENT Consult: No Notified: Yes Date Notified: 03/28/24 Time Notified: 06:47 Method of Notification: Text Consult: Infectious Disease Routine Consulting Provider: Ricci Kruse Reason for Consult: Suspected TB on CT with ~4.8 cm cavitary pneumonia. EMERGENT Consult: No Notified: Yes Date Notified: 03/29/24 Time Notified: 07:40 Method of Notification: Text 03/29/24 07:36 Consult: Gastroenterology Routine Consulting Provider: [facility] Reason for Consult: colon obstruction EMERGENT Consult: No Notified: Yes Date Notified: 03/29/24 Time Notified: 07:36 Method of Notification: Verbal 03/29/24 13:35 Consult: Journe[employer] / Pulmonary Medicine Routine Consulting Provider: [employer]/Pulmonary Med Reason for Consult: cavitary lesion EMERGENT Consult: No Notified: Yes Date Notified: 03/29/24 Time Notified: 14:04 Method of Notification: Text Reason For Visit: CAVITARY PNEUMONIA; SUSPICIOUS FOR TB Diagnosis Discharge Diagnosis (1) Constipation: Status: Acute Code(s): K59.00 - Constipation, unspecified Plan: Had flexible sigmoidoscopy on 03/29 that was remarkable to marked stool. Improved visualization after lavage. No mass identified. CT on 03/15 showed 3.2 cm soft tissue density. CTA CAP: soft tissue thickening in the region of the rectosigmoid area. Proximal distended small and large bowel loops with scattered air-fluid levels as well as wall thickening of the descending colon and distal transverse colon. (2) Lung mass: Status: Acute Code(s): R91.8 - Other nonspecific abnormal finding of lung field Plan: 4.8cm cavitary pulmonary opacity in MAXINE. Concerning to be infectious. AFB negative x 2. pulmonary recommending outpt follow up in 6 weeks. ID planning on 4 week course of doxy 100 BID, levofloxacin 500/d, metronidazole 500 TID. (3) Ileus: Status: Acute Code(s): K56.7 - Ileus, unspecified Plan: Resolved. General surgery following. Advanced to full liquids. Avoid narcotics. on Metoclopramide. Has had some response with suppositories. Plan VTE prophylaxis: LMWH. Discharge home with oxygen. Medications at Discharge Home Medications epinephrine 0.3 mg/0.3 mL injection, auto-injector (EpiPen 2-Jesse) 0.3 mg IM ONCE PRN anaphylaxis 07/07/23 albuterol sulfate 90 mcg/actuation aerosol inhaler 1 puff inhalation Q6H PRN SOB #8.5 grams 01/16/24 Disability Placard #1 ea 01/30/24 losartan 100 mg tablet 100 mg PO QDAY blood pressure 01/30/24 fluticasone 500 mcg-salmeterol 50 mcg/dose blistr powdr for inhalation (Advair Diskus) 1 inh inhalation BID respiratory #3 ea 02/16/24 thiamine HCl (vitamin B1) 100 mg tablet 100 mg PO DAILYCM supplement #30 tabs 03/02/24 acetaminophen 500 mg tablet 1,000 mg PO Q8H pain 03/15/24 folic acid 1 mg tablet 1 mg PO DAILY supplement 03/15/24 sennosides 8.6 mg-docusate sodium 50 mg tablet (Stimulant Laxative Plus) 2 tab PO BID PRN Constipation 03/15/24 tiotropium bromide 2.5 mcg/actuation mist for inhalation (Spiriva Respimat) 2 inh inhalation DAILY copd 03/15/24 bisacodyl 5 mg tablet 10 mg (2 x 5 mg) PO DAILY PRN constipation 0 days #10 tabs 03/20/24 guaifenesin 1,200 mg tablet, extended release 12 hr (Mucus Relief ER) 1,200 mg PO Q12H #10 tabs 03/20/24 melatonin 3 mg tablet 3 mg PO QHS PRN PRN Insomnia #0 tabs 03/20/24 polyethylene glycol 3350 17 gram/dose oral powder (Miralax) 17 g PO DAILY #119 grams 03/20/24 dicyclomine 10 mg capsule 20 mg (2 x 10 mg) PO TIDAC #30 caps 04/08/24 doxycycline monohydrate 100 mg capsule 100 mg PO BID #56 caps 04/08/24 levofloxacin 500 mg tablet 500 mg PO DAILY@0600 #28 tabs 04/08/24 metronidazole 500 mg tablet 500 mg PO TIDCM #84 tabs 04/08/24 Hospital Course Operations None Summary of Care Provided Minutes Spent on Discharge: 32 Medical Records Data Medical Nutrition Assessment Dietitian: Malnutrition Criteria Met Start: 03/28/24 09:58 Freq: Status: Active Protocol: Document 03/28/24 09:58 SLA (Rec: 03/28/24 09:58 SLA [id number]) Nutrition Malnutrition Evidence of Yes Malnutrition Exists Malnutrition (severe Acute Illness/Injury ): Evidenced By Suboptimal Energy Intake (Severe),Weight Loss (Severe) Clinical Problem Biting/Chewing Difficulty Etiology swallowing related to recent jaw fx 02/28/24 Signs/Symptoms as evidenced by pt self report Status Active Problem Acute Disease or Injury Related Malnutrition Etiology related to recent jaw fx (02/28/24) and inadequate energy intake Signs/Symptoms as evidenced by po intake < 75% of est nutritional needs and unplanned wt loss of ~10% x 1 month Status Active Problem Recommendation Dietitian As medically able, rec DANIELLE to liberal Regular soft and Recommendations/ bite size per pt request Changes As medically able, rec 8 oz chocolate ensure plus high protein tid w/ meals for increased nutrition if consumed. Weight / BMI Weight Weight: 71.9 kg Body Mass Index (BMI) 24.0 ABG / Lab / Microbiology Data 04/08/24 06:25 04/08/24 06:25 Laboratory: Laboratory Results - last 24 hr 04/08/24 06:25: WBC 7.8, RBC 3.29 L, Hgb 9.7 L, Hct 29.7 L, MCV 90.3, MCH 29.5, MCHC 32.7, RDW Std Deviation 41.1, RDW Coeff of Pam 12.4, Plt Count 510 H, MPV 8.4, Immature Gran % (Auto) 0.900, Neut % (Auto) 66.2, Lymph % (Auto) 15.0 L, [place] % (Auto) 11.3 H, Eos % (Auto) 5.3 H, Baso % (Auto) 1.3 H, Absolute Neuts (auto) 5.2, Absolute Lymphs (auto) 1.17, Nucleated RBC % 0, Sodium 132 L, Potassium 3.8, Chloride 94 L, Carbon Dioxide 33.0 H, Anion Gap 5, BUN 13, Creatinine 1.04, Estim Creat Clear Calc 71.25, Est GFR (MDRD) Af Amer 93, Est GFR (MDRD) Non-Af 77, BUN/Creatinine Ratio 12.5, Glucose 87, Calcium 8.5, Phosphorus 2.5, Magnesium 2.1, Total Bilirubin 0.30, AST 19, ALT 16, Alkaline Phosphatase 61, B-Natriuretic Peptide 84.9, Total Protein 5.6 L, Albumin 2.0 L, Globulin 3.6, Albumin/Globulin Ratio 0.6 L Microbiology: Microbiology 03/28/24 01:04 Blood Culture (Wb) - Anticubital Right Blood Culture - Final No growth in 5 days. 03/28/24 01:00 Blood Culture (Wb) - Anticubital Left Blood Culture - Final No growth in 5 days. 03/28/24 00:40 Stool Enteric Bacteriology - Final 03/28/24 06:00 Urine, Clean Catch Legionella Antigen - Final 03/28/24 06:00 Urine, Clean Catch Streptococcus pneumoniae Antigen (M - Final 03/28/24 01:02 Mucosa - Nose SARS-CoV-2, Influenza & RSV (PCR) - Final Radiography Diagnostic Testing: Radiology Impression Chest X-Ray 04/08/24 06:40 IMPRESSION: Redemonstration of left upper lobe opacity, better evaluated on recent CT chest. Trace bilateral pleural effusions. Reading Location: [id number] Instructions Discharge Diet: No restrictions DC O2, CPAP, BIPAP Needs RN Home O2 Qualification: Home O2 Qualification: Is the patient on home oxygen No 04/08/24 13:05 Home O2 Qualification: AT REST 1- Pulse Ox at rest 92 04/08/24 13:05 Home O2 Qualification: WITH AMBULATION 1- Pulse Ox with ambulation 88 04/08/24 13:05 1- Oxygen Flow Rate with 0 04/08/24 13:05 ambulation 2- Pulse Ox with ambulation 90 04/08/24 13:05 2- Oxygen Flow Rate with 2 04/08/24 13:05 ambulation Home O2 Discharge instructions: Yes Type of respiratory needs?: Oxygen Oxygen frequency: With Ambulation Oxygen liters per minute during Ambulation: 2 DC home with Oxygen: Yes Home O2 MD Review: I have reviewed the oxygen testing, and the patient qualifies for home oxygen equipment and portability. The patient is mobile in the home and the community. Meaningful Use Info Meaningful Use Meaningful Use Diagnoses (Choose all that apply): None applicable Ischemic Stroke Statin Dosing Therapy Reference: STATIN DOSE THERAPY REFERENCE: * Patients > 75 years receive moderate or high dose statin therapy. * Patients 75 years or YOUNGER should receive HIGH intensity statin dose unless contraindicated. You will be required to document reason for non-treatment if statin daily dose does not meet guidelines. HIGH DOSE STATIN THERAPY DAILY Atorvastatin > than or = to 40 mg Rosuvastatin > than or = to 20 mg Amlodipine + Atorvastatin > than or = to 2.5/40 mg Ezetimibe + Simvastatin 10/80 mg Simvastatin 80mg Discharge Plan Admission Admit Date/Time: 03/28/24 03:59 Primary Reason for Your Visit: Lung mass. Attending Provider: Neil Augustin Primary Care Provider: Alfonso Fortune Consulting Providers: Jordan Ortega; Felix Greenfield; Seferino Byrd; Ricci Kruse; Liz Alvarenga Discharge Orders/Prescriptions Prescriptions: New metronidazole 500 mg Tablet 500 mg PO TIDCM Qty: 84 0RF doxycycline monohydrate 100 mg Capsule 100 mg PO BID Qty: 56 0RF levofloxacin 500 mg Tablet 500 mg PO DAILY@0600 Qty: 28 0RF dicyclomine 10 mg Capsule 20 mg PO TIDAC Qty: 30 0RF Continued losartan 100 mg tablet 100 mg PO QDAY (DME) Disability Placard See Rx Instructions .ROUTE .MEDSUPPLY Qty: 1 0RF Rx Instructions: expires 01/29/2029 epinephrine [EpiPen 2-Jesse] 0.3 mg/0.3 mL auto-injector 0.3 mg IM ONCE PRN (Reason: anaphylaxis) Rx Instructions: as a single dose; may repeat once thiamine HCl (vitamin B1) 100 mg Tablet 100 mg PO DAILYCM Qty: 30 0RF sennosides-docusate sodium [Stimulant Laxative Plus] 8.6-50 mg Tablet 2 tab PO BID PRN (Reason: Constipation) acetaminophen 500 mg Tablet 1,000 mg PO Q8H folic acid 1 mg Tablet 1 mg PO DAILY Spiriva Respimat 2.5 mcg/actuation mist 2 inh inhalation DAILY Rx Instructions: administer at approximately the same time(s) each day melatonin 3 mg Tablet 3 mg PO QHS PRN PRN (Reason: Insomnia) Qty: 0 0RF polyethylene glycol 3350 [Miralax] 17 gram/dose powder 17 g PO DAILY Qty: 119 0RF Rx Instructions: over the counter, no prescription required. bisacodyl 5 mg tablet 10 mg PO DAILY PRN (Reason: constipation) Qty: 10 0RF Rx Instructions: over the counter. No prescription required. guaifenesin [Mucus Relief ER] 1,200 mg tablet extended release 12hr 1,200 mg PO Q12H Qty: 10 0RF albuterol sulfate 90 mcg/actuation HFA aerosol inhaler 1 puff INHALATION Q6H PRN (Reason: SOB) Qty: 8.5 11RF fluticasone propion-salmeterol [Advair Diskus] 500-50 mcg/dose blister with device 1 inh inhalation BID Qty: 3 3RF Discontinued potassium chloride 20 mEq Tablet,Er Particles/Crystals 20 meq PO BIDCM Qty: 20 0RF sodium chloride 1,000 mg Tablet,Soluble 1,000 mg PO BID Qty: 60 0RF levofloxacin 750 mg tablet 750 mg PO DAILY Qty: 5 0RF Referrals / Follow Up: [facility] [Provider Group] - Within 1 Month Alfonso Fortune MD [Primary Care Provider] - Within 2 Weeks Ricci Kruse MD [Med Staff - Active Staff] - Within 2 Weeks Disposition Disposition (needs filled in before D/C Order can be placed): Home, Self Care Charges/Coding Visit Charges Inpatient E&M: 39513 Disch Hosp >30min
== END 2024-04-08 18:26 | disposition home or self-care (01) | DRG 190 ==
LOC: ED 03-28 02:56 → PCU 03-28 04:17
PROVIDERS: Family Medicine; Internal Medicine; Internal Medicine Gastroenterology; Internal Medicine Infectious Disease; Student in an Organized Health Care Education/Training Program; Admitting Provider Internal Medicine; Emergency Provider Emergency Medicine; PCP Family Medicine
PROC: 0DJD8ZZ Inspection of Lower Intestinal Tract, Via Natural or Artificial Opening Endoscopic (ICD-10-PCS; CPT 45330; principal; 2024-03-29 17:25)
DX: J44.0 Chronic obstructive pulmonary disease with (acute) lower respiratory infection (principal); J85.1 Abscess of lung with pneumonia; J96.21 Acute and chronic respiratory failure with hypoxia; E43 Unspecified severe protein-calorie malnutrition; K56.7 Ileus, unspecified; E87.1 Hypo-osmolality and hyponatremia; N30.00 Acute cystitis without hematuria; Z99.81 Dependence on supplemental oxygen; I10 Essential (primary) hypertension; E88.09 Other disorders of plasma-protein metabolism, not elsewhere classified; D72.829 Elevated white blood cell count, unspecified; K57.30 Diverticulosis of large intestine without perforation or abscess without bleeding; E87.6 Hypokalemia; K59.00 Constipation, unspecified; R26.2 Difficulty in walking, not elsewhere classified; K52.89 Other specified noninfective gastroenteritis and colitis; R53.1 Weakness; Z87.81 Personal history of (healed) traumatic fracture; Z79.899 Other long term (current) drug therapy; Z90.49 Acquired absence of other specified parts of digestive tract; Z86.0100 Personal history of colon polyps, unspecified; Z86.16 Personal history of COVID-19; Z87.898 Personal history of other specified conditions; Z87.891 Personal history of nicotine dependence; Z68.24 Body mass index [BMI] 24.0-24.9, adult
CPT/HCPCS: 36415; 36600; 71045; 71250; 71260; 74018; 74019; 74176; 74177; 80048; 80053; 80202; 81001; 82803; 83605; 83735; 83880; 84100; 84443; 85025; 86480; 87015; 87040; 87116; 87206; 87449; 87506; 87631; 88108; 88312; 88313; 93005; 94640; 94667; 94668; 94762; 97110; 97116; 97162; 97530; 97802; 97803; 99285; Q9967; A4216; J0295; J1940; J2405

== ENCOUNTER 2024-04-08 22:00 | Inpatient (IN) | payer OTHER, SELFPAY ==
--- NOTE | 2024-04-08 22:03 | EKG12_ITS ---
Test Reason : SVT Blood Pressure : */* mmHG Vent. Rate : 195 BPM Atrial Rate : * BPM P-R Int : * ms QRS Dur : 80 ms QT Int : 246 ms P-R-T Axes : * -54 95 degrees QTcB Int : 443 ms Critical Test Result: High HR Supraventricular tachycardia Left axis deviation Septal infarct , age undetermined Abnormal ECG Confirmed by JAME ACEVES, HERNAN ([id number]), newspaper or periodical editor KEVON CHRISTINE ([id number]) on 04/12/2024 8:14:17 AM Referred By: ARA Confirmed By: HERNAN KILGORE MD
[2024-04-08 22:18] VITALS: BP 113/77; PULSE 116; RESP 24; TEMP 36.8; O2SAT 98
[2024-04-08 22:37] VITALS: BP 90/47; PULSE 196; RESP 24; TEMP 36.8; O2SAT 96; O2SAT 97; BMI 23.9
--- NOTE | 2024-04-08 22:42 | EKG12_ITS ---
Test Reason : Blood Pressure : */* mmHG Vent. Rate : 96 BPM Atrial Rate : 96 BPM P-R Int : 190 ms QRS Dur : 68 ms QT Int : 336 ms P-R-T Axes : 63 -12 59 degrees QTcB Int : 424 ms Normal sinus rhythm Anteroseptal infarct , age undetermined Abnormal ECG When compared with ECG of 08-Apr-2024 22:22, MANUAL COMPARISON REQUIRED DATA IS UNCONFIRMED Confirmed by JAME ACEVES, HERNAN ([id number]), state editor KEVON CHRISTINE ([id number]) on 04/09/2024 1:08:40 PM Referred By: Confirmed By: HERNAN KILGORE MD
--- NOTE | 2024-04-08 22:43 | EKG12_ITS ---
Test Reason : POST CARDIOVERSION Blood Pressure : */* mmHG Vent. Rate : 114 BPM Atrial Rate : 114 BPM P-R Int : 172 ms QRS Dur : 72 ms QT Int : 322 ms P-R-T Axes : 58 -48 79 degrees QTcB Int : 443 ms Sinus tachycardia Low voltage QRS Left anterior fascicular block Septal infarct , age undetermined Abnormal ECG Confirmed by JAME ACEVES, HERNAN ([id number]), newspaper managing editor KEVON CHRISTINE ([id number]) on 04/12/2024 8:11:36 AM Referred By: ARA Confirmed By: HERNAN KILGORE MD
--- NOTE | 2024-04-08 22:52 | RAD_ITS ---
PROCEDURE: CHEST 1 VIEW (PORTABLE) REASON FOR EXAM: Chest pain TECHNIQUE: Frontal view of the chest COMPARISON: None. FINDINGS: Cardiomediastinal silhouette is within normal limits. Persistent focal cavitary opacity at the left lung apex. Lungs are otherwise clear. No pleural effusion or sizable pneumothorax. RAD/Chest 1 View (Portable) IMPRESSION: Persistent cavitary opacity at the left lung apex. Cavitary pneumonia and capo gnancy are both considered. Imaging follow-up recommended to ensure complete resolution. Reading Location: [facility]
[2024-04-08 22:53] LABS: Absolute Lymphocyte Count 1.34 X10^3/uL (0.83-4.51); Absolute Neutrophil Count 8.5 X10^3/uL (2.0-7.7); Basophil# 0.09 X10^3/uL; Basophil% 0.8 % (0-1); Eosinophil# 0.29 X10^3/uL; Eosinophils% 2.5 % (0-5); Hematocrit 35.8 % (40-54); Hemoglobin 11.6 g/dL (13.0-16.5); Lymphocyte # 1.34 X10^3/ul (0.83-4.51); Lymphocyte % 11.7 % (19-41); Mean Corp Hgb Conc 32.4 g/dL (32-36); Mean Corpuscular Hgb 29.3 pg (27.0-32.0); Mean Corpuscular Volume 90.4 fL (80-94); Mean Platelet Vol. 8.9 fl (6.2-12.0); Monocyte# 1.17 X10^3/uL; Monocyte% 10.2 % (0-10); NRBC Flagged by Analyzer 0 % (0-5); Neutrophil # 8.51 X10^3/uL (2.7-7.7); Platelet Count 650 K/mm3 (150-450); RBC Distribution Width CV 12.5 % (11.6-14.6); RBC Distribution Width SD 41.4 fl (35.1-43.9); Red Blood Count 3.96 M/mm3 (4.6-6.2); White Blood Count 11.5 K/mm3 (4.4-11.0)
[2024-04-08 23:22] LABS: Anion Gap 8 (5-15); BUN 20 mg/dL (7-18); BUN/Creat Ratio 13.9 RATIO (10-20); Calcium,Total 9.2 mg/dL (8.5-10.1); Chloride 89 mmol/L (98-107); Creatinine, Serum 1.44 mg/dL (0.70-1.30); EST Glomerular Filtration Rate 53 mL/min (>60); Est Glom Filt Rate - Afr Amer 64 mL/min (>60); Estimated Creatinine Clearance 51.46 ml/min; Glucose 110 mg/dL (74-106); Magnesium 1.9 mg/dL (1.6-2.6); Potassium 3.8 mmol/L (3.5-5.1); Sodium Level 132 mmol/L (136-145); Troponin-I HS 19 pg/mL (3.0-78.0)
--- NOTE | 2024-04-08 23:26 | EDS_ITS ---
HPI History of Present Illness Chief Complaint: Chest Pain Informant: patient and EMS Narrative Narrative: 63-year-old male arriving by EMS with a chief complaint of chest pain and heart racing. Patient states that he was just discharged from this hospital and was home for about 3 hours when suddenly he began to experience that his heart was racing he developed a pressure in his chest. He has never had anything like this before. Prehospital EKG shows a narrow complex tachycardia with a rate around 190. Patient was admitted to the hospital was found to have a cavitary like infiltrate in his lungs and was consulted with ID and pulmonology. He is on antibiotics. He underwent colonoscopy found to have significant constipation along with ileus. He is a long-term smoker on chronic home oxygen. He has no cardiac history. He does note a history of hypertension. He takes losartan for that. Of note the patient notes that towards the beginning of February he was walking into his house and had a sudden syncopal episode that been unexplained. He he s tates that he broke his jaw at that time. He had not had prior syncope or cardiac dysrhythmias. He did not have reported SVT while in the hospital. [facility] Medical History Smoker On home oxygen therapy IBS (irritable bowel syndrome) Hx of colonic polyp Alcohol abuse Hemorrhoids COPD (chronic obstructive pulmonary disease) Hypertension Arthritis Home Medications ?Medication ?Instructions ?Recorded ?Last Taken ?Type epinephrine 0.3 mg/0.3 mL 0.3 mg IM ONCE PRN anaphylax is 07/07/23 Unknown History injection, auto-injector (EpiPen 2-Jesse) albuterol sulfate 90 mcg/actuation 1 puff inhalation Q 6H PRN SOB #8.5 01/16/24 02/27/24 Rx aerosol inhaler grams Disability Placard #1 ea 01/30/24 Unknown Rx losartan 100 mg tablet 100 mg PO QDAY blood pressur e 01/30/24 02/28/24 History fluticasone 500 mcg-salmeterol 50 1 inh inhalation BID respiratory 02/16/24 02/27/24 Rx mcg/dose blistr powdr for #3 ea inhalation (Advair Diskus) thiamine HCl (vitamin B1) 100 mg 100 mg PO DAILYCM sup plement #30 03/02/24 Unknown Rx tablet tabs acetaminophen 500 mg tablet 1,000 mg PO Q8H pain 03/15 Unknown History folic acid 1 mg tablet 1 mg PO DAILY supplement Unknown History sennosides 8.6 mg-docusate sodium 2 tab PO BID PRN Con stipation 03/15/24 Unknown History 50 mg tablet (Stimulant Laxative Plus) tiotropium bromide 2.5 2 inh inhalation DAILY copd 03/15/24 Unknown History mcg/actuation mist for inhalation (Spiriva Respimat) bisacodyl 5 mg tablet 10 mg (2 x 5 mg) PO DAILY PA N 03/20/24 Unknown Rx constipation 0 days #10 tabs guaifenesin 1,200 mg tablet, 1,200 mg PO Q12H cough #1 0 tabs 03/20/24 Unknown Rx extended release 12 hr (Mucus Relief ER) melatonin 3 mg tablet 3 mg PO QHS PRN PRN Insomnia #0 03/20/24 Unknown Rx tabs polyethylene glycol 3350 17 17 g PO DAILY constipation #119 03/20/24 Unknown Rx gram/dose oral powder (Miralax) grams dicyclomine 10 mg capsule 20 mg (2 x 10 mg) PO TIDAC # 30 caps 04/08/24 Unknown Rx doxycycline monohydrate 100 mg 100 mg PO BID #56 caps 04/08/24 Unknown Rx capsule levofloxacin 500 mg tablet 500 mg PO DAILY@0600 #28 ta bs 04/08/24 Unknown Rx metronidazole 500 mg tablet 500 mg PO TIDCM #84 tabs 0 04/08/24 Unknown Rx Allergy/AdvReac Type Severity Reaction Status Date / Time amlodipine (From Norvasc) Allergy Swelling Verified 04/08/24 22:37 lisinopril Allergy Pain in Verified 04/08/24 22:37 joints tamsulosin Allergy Other Verified 04/08/24 22:37 tolterodine (From Detrol) Allergy Other Verified 04/08/24 22:37 Family History Mother Arthritis Father Diabetes Heart disease Hypertension Surgical History Hx of vasectomy Hx of colonoscopy Hx of appendectomy Social History household members: spouse and children housing: house current occupational status: employed Smoking Status: Former smoker second hand exposure: Yes alcohol intake: current alcohol intake frequency: 3 or more drinks per day substance use type: does not use caffeine: Yes what type of physical activity do you participate in: none frequency: does not exercise ROS ROS ED Constitutional Constitutional ED: Denies chills, fever(s) or weight loss Eyes Eyes: Denies change in vision or diplopia ENT ENT ED: Denies ear pain, rhinorrhea or sore throat Cardiovascular Cardiovascular: Reports chest pain, palpitations and racing heartbeat; Denies orthopnea Respiratory/Chest Respiratory/Chest: Reports cough; Denies dyspnea or orthopnea Gastrointestinal Gastrointestinal: Reports abdominal pain; Denies diarrhea, nausea or vomiting Genitourinary Genitourinary ED: Denies dysuria, hematuria or urinary frequency Musculoskeletal Musculoskeletal: Denies arthralgias or myalgias Integumentary Denies abscess or rash Neurologic Neurologic: Denies headache(s) or weakness Psychiatric Psychiatric: Denies anxiety, depression, suicidal ideation or suicidal thoughts Endocrine Endocrinology: Denies polydipsia, polyphagia or polyuria Allergic/Immunologic Allergic/Immunologic ED: Denies mouth swelling, tongue swelling or urticaria EXAM Physical Exam Const Vital Signs: 04/08/24 22:18 04/08/24 22:37 04/08/24 22:37 Temperature 98.2 F 98.2 F Temperature Source Oral Oral Pulse Rate 116 H 196 H Respiratory Rate 24 H 24 H Respiratory Effort Normal Blood Pressure 113/77 90/47 L Blood Pressure Mean 89 61 Pulse Ox 98 96 Oxygen Delivery Method Nasal Cannula Nasal Cannula Oxygen Flow Rate (L/min) 2 2 Positive well nourished and well developed General Appearance ED: well developed HEENT Reports normocephalic, head/scalp atraumatic and moist mucous membranes Eyes PERRL and EOMs intact bilaterally Neck no lymphadenopathy, supple and no JVD Resp normal respiratory effort and clear to auscultation bilaterally Cardio regular rate, regular rhythm and no murmurs Rate: tachycardic GI normal to inspection, nondistended, normoactive bowel sounds and non-tender Palpation: soft Back/Spine no CVA tenderness and normal ROM Extremity normal to inspection General Extremety ED: Negative for edema General Extremity: Negative for edema Neuro oriented x3 and CN's II-XII intact bilaterally Sensorium / Orientation: alert Motor Exam: strength 5/5 throughout Psych mental status grossly normal Mood & Affect: Negative for depressed or tearful Skin no rashes or lesions noted and no wounds MDM MDM MDM Narrative Medical decision making narrative: Differential diagnosis includes supraventricular tachycardia acute coronary syndrome pulmonary embolism electrolyte abnormalities thyroid disorder An EKG was done upon his arrival shows a supraventricular tachycardia at a rate of 195 bpm. Defibrillation pads were placed and we are preparing for emergent sedation and cardioversion. The patient was able to cardiovert on his own without therapy. Repeat EKG shows a sinus tachycardia with a rate of 114 bpm. Patient's white count is 11.5 hemoglobin 11.6 platelet count is 650. Sodium 132 creatinine 1.44 troponin normal at 19 magnesium 1.9 TSH is 3.650. My independent interpretation of the chest x-ray is Persistent opacity in the left lung. Patient was observed. He continues to be in a sinus tachycardic rhythm around 100 and is now normotensive. He is mentating normally and is requiring his home 2 L nasal cannula. Spoke with cardiology. Will be obtaining a delta troponin as well as a CTA of the chest for pulmonary embolism given his recent hospitalization. Plan will be admission into hospital [facility]. History & Record Review Discussion w/independent historian: EMS personnel, Patient and Family Additional record(s) reviewed:: Prior inpatient record, Prior ED visit, Prior labs and No prior records Lab Data Attestation: I reviewed the patient's lab results. Labs: Laboratory Results - last 24 hr 04/08/24 22:03 WBC 11.5 H RBC 3.96 L Hgb 11.6 L Hct 35.8 L MCV 90.4 MCH 29.3 MCHC 32.4 RDW Std Deviation 41.4 RDW Coeff of Pam 12.5 Plt Count 650 H MPV 8.9 Immature Gran % (Auto) 0.800 Neut % (Auto) 74.0 H Lymph % (Auto) 11.7 L [place] % (Auto) 10.2 H Eos % (Auto) 2.5 Baso % (Auto) 0.8 Absolute Neuts (auto) 8.5 H Absolute Lymphs (auto) 1.34 Nucleated RBC % 0 Sodium 132 L Potassium 3.8 Chloride 89 L Carbon Dioxide 34.0 H Anion Gap 8 BUN 20 H Creatinine 1.44 H Estim Creat Clear Calc 51.46 Est GFR (MDRD) Af Amer 64 Est GFR (MDRD) Non-Af 53 L BUN/Creatinine Ratio 13.9 Glucose 110 H Calcium 9.2 Magnesium 1.9 Troponin I High Sens 19 TSH 3.650 Radiography Diagnostic Testing: Clinical Impression(s) from Imaging Studies Chest X-Ray 04/08/24 22:52 IMPRESSION: Persistent cavitary opacity at the left lung apex. Cavitary pneumonia and malignancy are both considered. Imaging follow-up recommended to ensure complete resolution. Reading Location: [facility] Initial EKG: Attestation: I personally reviewed and interpreted this EKG as follows: Comments: Supraventricular tachycardia at a rate of 195 bpm Follow-up EKG: Attestation: I personally reviewed and interpreted this EKG as follows: Comments: Sinus tachycardia ventricular rate of 114 bpm Management Discussion w/another healthcare provider: Hospitalist (Dr Greenfield) and Plate Glass Installer (Dr Zamarripa) Critical Care Time Critical Care Time: Yes Critical care time (excluding procedures): 30-74 minutes (35 min), Including time spent:, Discussing w/Patient &/or Family/Agency Owner, Discussing w/Consultants, Arranging Admission or Transfer and Performing Direct Patient Care at Bedside Discharge Plan Dx/Rx/DC Orders Clinical Impression: SVT (supraventricular tachycardia), COPD (chronic obstructive pulmonary disease), Acute hypotension Disposition Disposition: [facility]
[2024-04-09] VITALS (31 sets, daily range): BP systolic 113–148; BP diastolic 68–94; PULSE 87–114; RESP 14–25; TEMP 36.3–36.9; O2SAT 95–100; BMI 21.4; BMI 21.5
--- NOTE | 2024-04-09 00:03 | CT_ITS ---
PROCEDURE: CTA CHEST W/WO CONTRAST REASON FOR EXAM: Pain. Tachycardia. Concern for pulmonary embolism. TECHNIQUE: CTA imaging of the chest with intravenous contrast. 3D MIP images in the coronal and sagittal planes were obtained. 2D reformatted coronal and sagittal images were obtained. COMPARISON: Chest x-ray from 04/08/2024. CT chest, abdomen, pelvis from 04/06/2024. FINDINGS: There is no evidence of pulmonary embolism. Cardiac size is within normal limits. Thoracic aorta demonstrates normal caliber with mild atherosclerotic calcifications. Coronary artery calcifications are present. There are some small mediastinal and hilar lymph nodes. There is a small pericardial effusion anteriorly. There is a trace left pleural effusion. Evaluation of the lung parenchyma redemonstrates an irregular marginated masslike consolidation in the left upper lobe measuring approximately 4.2 x 1.9 cm which extends to the pleural surface with a small cavitary focus and central necrotic appearance and is similar in size. Again there is mild surrounding ground-glass attenuation. Mild emphysematous changes are present. Central airway is patent. No pneumothorax is identified. There is stable elevation of the left hemidiaphragm. Partial visualization of the abdomen demonstrates subcutaneous edema bilaterally. Degenerative changes are identified. Anterior wedge compression deformities from T4-T7 are unchanged. CT/CTA Chest W/WO Contrast IMPRESSION: 1. Redemonstration of an irregular marginated masslike consolidation in the lef t upper lobe which is similar in size and again demonstrates a small cavitary focus with central necrotic appearance. Findings may relate to malignancy. Other consideration could include infectious inflammatory process. Recommend tissue sampling. 2. No CT evidence of pulmonary embolism. 3. Trace left pleural effusion. 4. Small pericardial effusion anteriorly. One or more dose reduction techniques were used (e.g., Automated exposure contr ol, adjustment of the mA and/or kV according to patient size, use of iterative reconstruction technique). Reading Location: [facility]
[2024-04-09 00:34] LABS: Troponin-I HS 80 pg/mL (3.0-78.0)
--- NOTE | 2024-04-09 01:43 | PCM.HP.STD ---
[facility] General Date of Admission: 04/09/24 Date of Service: 04/09/24 Chief Complaint: Chest Pain Radiating to Back with Severe Tachycardia of ~200 bpm. 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, history of IBS, history of colon polyp, history of hemorrhoids, history of vasectomy, history of colonoscopy, history of appendectomy, history of recent jaw fracture; with decreased appetite and recent admission here from February 28, 2024 to March 02, 2024 for treatment of a syncopal episode with subsequent facial trauma causing Right mandibular condyle fracture complicated by CT evidence of pyelonephritis treated with ceftriaxone followed by a another even more recent admission here from March 15, 2024 to March 20, 2024 with MAXINE infiltrate with chest x-ray suggestive of pneumonia that was suspected to be community-acquired in origin along with corresponding Leukocytosis of 18K and clinical evidence of AE COPD with fcrep-re-dpufzvd respiratory insufficiency with urine cultures returning positive for Pseudomonas aeruginosa; sensitive to Levaquin; which was prescribed for a 7-day course along with a prednisone taper and mildly worsening chronic hyponatremia of 126 mmol/L present on admission complicated by CT positive for ~3.2 cm mid-sigmoid lesion suspicious for malignancy with patient instructed to follow-up as an outpatient with gastroenterology and with a chest CT done on March 19, 2023 that revealed mild underlying emphysema with chronic interstitial changes in both lung mims with a stable ~2.5 mm nodule in the Right upper lobe and no other suspicious noncalcified mass or nodule noted who was then readmitted to the hospital from March 28, 2024 to April 08, 2024 with severe abdominal pain and cramping with CT evidence of a cavitary pulmonary opacity in the left upper lobe measuring ~4.8 cm suspicious for malignancy versus TB along with mild reticulonodular opacities in the right lung base and additional CT evidence of significant retained stool within the proximal rectum with wall thickening and mild perirectal stranding as well as rectal distention suspected to be stercoral colitis with corresponding laboratory evidence of 31.2K with Left-shift of 1% present on admission and persistent chronic mild hyponatremia of 128 mmol/L present on admission who eventually was taken for colonoscopy and found to have significant constipation along with ileus and was placed on broad-spectrum antibiotics for his pneumonia and then he was discharged home for ~3 hours before returning to the [facility] ER complaining of chest pain radiating to the back with severe tachycardia of ~200 bpm. Mr. Otero reports he had been just discharged from the hospital and was home for ~3 hours when he suddenly began to experience his heart racing and developed a powerful sensation of pressure building in his chest with palpitations. He states he has never had any similar previous episodes like this. His prehospital EKG done by EMS shows a narrow complex tachycardia with a heart rate of ~190 bpm with no previous EKGs that are available that show a history of SVT. Patient underwent echocardiogram in February of this year which revealed LVEF ~60% with no regional wall motion abnormalities noted or other concerning acute pathologic changes and his most recent EKG from last admission on March 28, 2024 shows normal sinus rhythm with Left-axis deviation and evidence of old septal infarct with a QT/QTc 358/433 ms. He admits he is still taking his antibiotics as prescribed with Levaquin and Flagyl for his cavitary pneumonia with consults previously done by infectious diseases and pulmonology. He denies associated fever, chills, visual changes, runny nose, sore throat, abdominal pain, nausea, vomiting, dysuria, hematuria, headache or rash. In the ER he was noted to have EKG evidence of Supraventricular Tachycardia with a rate of ~195 bpm with defibrillation pads placed on the patient with preparation for emergent sedation and cardioversion when he was able to cardiovert spontaneously suspected to be due to Adverse Drug Reaction to combination of Levaquin and Flagyl likely causing QT-prolongation. The ER physician then on-call spoke to the examining chair assembler on-call who recommended a CTA of the chest to evaluate for possible PE given his recent hospitalization which was thankfully negative for thromboembolism - but was only positive for Left upper lobe cavitary lesion with concern for carcinoma that is unchanged from previous. His laboratory studies revealed an initial troponin of 18 pg/mL that up trended to 80 pg/mL with concern for suspected acute cardiac strain versus non-ST elevation [place] with the patient's Levaquin stopped in favor of Rocephin and Flagyl continued as previous. He was then admitted to the ICU for ongoing care for stay that is expected to extend beyond 2 midnights. [facility] Medical History Smoker On home oxygen therapy IBS (irritable bowel syndrome) Hx of colonic polyp Alcohol abuse Hemorrhoids COPD (chronic obstructive pulmonary disease) Hypertension Arthritis Home Medications ?Medication ?Instructions ?Recorded ?Last Taken ?Type epinephrine 0.3 mg/0.3 mL 0.3 mg IM ONCE PRN anaphylaxis 07/07/23 Unknown History injection, auto-injector (EpiPen 2-Jesse) albuterol sulfate 90 mcg/actuation 1 puff inhalation Q6H PRN SOB #8.5 01/16/24 02/27/24 Rx aerosol inhaler grams Disability Placard #1 ea 01/30/24 Unknown Rx losartan 100 mg tablet 100 mg PO QDAY blood pressure 01/30/24 02/28/24 History fluticasone 500 mcg-salmeterol 50 1 inh inhalation BID respiratory 02/16/24 02/27/24 Rx mcg/dose blistr powdr for #3 ea inhalation (Advair Diskus) thiamine HCl (vitamin B1) 100 mg 100 mg PO DAILYCM supplement #30 03/02/24 Unknown Rx tablet tabs acetaminophen 500 mg tablet 1,000 mg PO Q8H pain 03/15/24 Unknown History folic acid 1 mg tablet 1 mg PO DAILY supplement 03/15/24 Unknown History sennosides 8.6 mg-docusate sodium 2 tab PO BID PRN Constipation 03/15/24 Unknown History 50 mg tablet (Stimulant Laxative Plus) tiotropium bromide 2.5 2 inh inhalation DAILY copd 03/15/24 Unknown History mcg/actuation mist for inhalation (Spiriva Respimat) bisacodyl 5 mg tablet 10 mg (2 x 5 mg) PO DAILY PRN 03/20/24 Unknown Rx constipation 0 days #10 tabs guaifenesin 1,200 mg tablet, 1,200 mg PO Q12H cough #10 tabs 03/20/24 Unknown Rx extended release 12 hr (Mucus Relief ER) melatonin 3 mg tablet 3 mg PO QHS PRN PRN Insomnia #0 03/20/24 Unknown Rx tabs polyethylene glycol 3350 17 17 g PO DAILY constipation #119 03/20/24 Unknown Rx gram/dose oral powder (Miralax) grams dicyclomine 10 mg capsule 20 mg (2 x 10 mg) PO TIDAC #30 caps 04/08/24 Unknown Rx doxycycline monohydrate 100 mg 100 mg PO BID #56 caps 04/08/24 Unknown Rx capsule levofloxacin 500 mg tablet 500 mg PO DAILY@0600 #28 tabs 04/08/24 Unknown Rx metronidazole 500 mg tablet 500 mg PO TIDCM #84 tabs 04/08/24 Unknown Rx Allergy/AdvReac Type Severity Reaction Status Date / Time [facility] Allergy Swelling Verified 04/08/24 22:37 lisinopril Allergy Pain in Verified 04/08/24 22:37 joints tamsulosin Allergy Other Verified 04/08/24 22:37 tolterodine (From [facility]) Allergy Other Verified 04/08/24 22:37 Family History Mother Arthritis Father Diabetes Heart disease Hypertension Surgical History Hx of vasectomy Hx of colonoscopy Hx of appendectomy Social History household members: spouse and children housing: house current occupational status: employed Smoking Status: Former smoker second hand exposure: Yes alcohol intake: current alcohol intake frequency: 3 or more drinks per day substance use type: does not use caffeine: Yes what type of physical activity do you participate in: none frequency: does not exercise ROS ROS Narrative Review of Systems: Constitutional: Patient denies fever, chills or sweats. Eyes: Patient denies changes in vision or discharge from eyes. ENT: Patient denies runny nose, sore throat or ear pain. Resp: Patient admits to chronic shortness of breath and productive cough of yellowish sputum. CV: Patient admits to severe chest pain that was pressure-like and associated with palpitations and heart racing as per HPI. GI: Patient admits abdominal pain that is much improved since his previous admission. He denies diarrhea, nausea or vomiting. : Patient admits to urinary frequency but denies dysuria or hematuria. MSK: Patient denies arthralgias or myalgias. Skin: Patient denies rash, abscess, wounds or jaundice. Psych: Patient denies symptoms of uncontrolled depression or anxiety. Neuro: Patient denies headache, paresthesias or focal neurologic deficits. Allergy: Patient denies lip swelling, tongue swelling or urticaria. Hematology: Patient denies easy bleeding or easy bruisability. Endocrinology: Patient denies polyuria, polydipsia or polyphagia. 14 point review of systems otherwise negative except for positives noted above in HPI. Vital Signs Vital Signs Vital Signs: 04/08/24 22:18 04/08/24 22:37 04/08/24 22:37 Temperature 98.2 F 98.2 F Temperature Source Oral Oral Pulse Rate 116 H 196 H Respiratory Rate 24 H 24 H Respiratory Effort Normal Blood Pressure 113/77 90/47 L Blood Pressure Mean 89 61 Pulse Ox 98 96 Oxygen Delivery Method Nasal Cannula Nasal Cannula Oxygen Flow Rate (L/min) 2 2 04/09/24 00:00 04/09/24 00:27 04/09/24 01:00 Temperature 98.4 F Temperature Source Pulse Rate 109 H 105 H 104 H Respiratory Rate 17 17 18 Respiratory Effort Blood Pressure 119/76 134/90 H 129/79 H Blood Pressure Mean 90 104 95 Pulse Ox 99 97 99 Oxygen Delivery Method Room Air Nasal Cannula Oxygen Flow Rate (L/min) 2 Weight Weight: 157 lb 10.088 oz Body Mass Index (BMI) 23.9 Physical Exam Const alert, oriented x3, no apparent distress and average body habitus Constitutional Narrative: Patient appears chronically ill and much older than stated age. General Appearance: cooperative HEENT normocephalic, head/scalp atraumatic and hearing grossly normal bilaterally Eyes PERRL, EOMs intact bilaterally and conjunctivae normal Neck no lymphadenopathy and supple Resp normal respiratory effort, no retractions, no use of accessory muscles and clear to auscultation bilaterally Cardio regular rate and regular rhythm GI normal to inspection, nondistended, normoactive bowel sounds, soft to palpation, non-tender and non-distended Extremity normal to inspection, full ROM and no clubbing, cyanosis or edema Skin Skin Narrative: Patient has no evidence of rash, abscess, wounds or jaundice. Neuro oriented x3, CN's II-XII intact bilaterally, moves all extremities and no focal motor deficits Sensorium / Orientation: awake, alert, oriented to person, oriented to place and oriented to time Speech: speech normal Psych affect normal Results Medical Records Data Attestation: I reviewed the patient's medical records Lab / Micro Data Attestation: I reviewed the patient's lab results. 04/09/24 03:50 04/09/24 03:50 Labs: Laboratory Results - last 24 hr 04/08/24 22:03: WBC 11.5 H, RBC 3.96 L, Hgb 11.6 L, Hct 35.8 L, MCV 90.4, MCH 29.3, MCHC 32.4, RDW Std Deviation 41.4, RDW Coeff of Pam 12.5, Plt Count 650 H, MPV 8.9, Immature Gran % (Auto) 0.800, Neut % (Auto) 74.0 H, Lymph % (Auto) 11.7 L, [place] % (Auto) 10.2 H, Eos % (Auto) 2.5, Baso % (Auto) 0.8, Absolute Neuts (auto) 8.5 H, Absolute Lymphs (auto) 1.34, Nucleated RBC % 0, Sodium 132 L, Potassium 3.8, Chloride 89 L, Carbon Dioxide 34.0 H, Anion Gap 8, BUN 20 H, Creatinine 1.44 H, Estim Creat Clear Calc 51.46, Est GFR (MDRD) Af Amer 64, Est GFR (MDRD) Non-Af 53 L, BUN/Creatinine Ratio 13.9, Glucose 110 H, Calcium 9.2, Magnesium 1.9, Troponin I High Sens 19, TSH 3.650 04/09/24 00:10: Troponin I High Sens 80 H Imaging Radiology Impression Chest X-Ray 04/08/24 22:52 IMPRESSION: Persistent cavitary opacity at the left lung apex. Cavitary pneumonia and malignancy are both considered. Imaging follow-up recommended to ensure complete resolution. Reading Location: [facility] Chest CTA 04/09/24 00:03 IMPRESSION: 1. Redemonstration of an irregular marginated masslike consolidation in the left upper lobe which is similar in size and again demonstrates a small cavitary focus with central necrotic appearance. Findings may relate to malignancy. Other consideration could include infectious inflammatory process. Recommend tissue sampling. 2. No CT evidence of pulmonary embolism. 3. Trace left pleural effusion. 4. Small pericardial effusion anteriorly. One or more dose reduction techniques were used (e.g., Automated exposure control, adjustment of the mA and/or kV according to patient size, use of iterative reconstruction technique). Reading Location: [facility] Assessment & Plan Assessment/Plan (1) SVT (supraventricular tachycardia): (2) Adverse drug reaction: QUALIFIERS: Encounter type: initial encounter Qualified Code(s): T50.905A - Adverse effect of unspecified drugs, medicaments and biological substances, initial encounter (3) Elevated troponin: (4) Acute hypotension: (5) Cavitary lesion of lung: (6) COPD (chronic obstructive pulmonary disease): QUALIFIERS: COPD type: unspecified COPD Qualified Code(s): J44.9 - Chronic obstructive pulmonary disease, unspecified PLAN: Plan 1. Supraventricular Tachycardia with a rate of ~195 bpm and up-trending troponins from 18 pg/mL to 80 pg/mL in ER concerning for Acute Cardiac Strain - Admit to ICU in case of recurrence of potentially life-threatening arrhythmia. Patient underwent echocardiogram in February of this year which revealed LVEF ~60% with no regional wall motion abnormalities noted or other concerning acute pathologic changes and his most recent EKG from last admission on March 28, 2024 shows normal sinus rhythm with Left-axis deviation and evidence of old septal infarct with a QT/QTc 358/433 ms. Patient was started on metoprolol 25 mg p.o. twice daily with plan to titrate upward slowly to hopefully prevent recurrence. Start ECASA and full-dose Lovenox and serialize troponin. Finally, we will consult [facility] to see this patient on-rounds in the a.m. for further recommendations with help appreciated in advance. 2. Adverse Drug Reaction to combination of Levaquin and Flagyl likely causing #1 - Levaquin stopped in favor of Rocephin. 3. Very recent admission to this hospital from March 28, 2024 to April 08, 2024 with severe abdominal pain and cramping with CT evidence of a cavitary pulmonary opacity in the left upper lobe measuring ~4.8 cm suspicious for malignancy versus TB along with mild reticulonodular opacities in the right lung base and additional CT evidence of significant retained stool within the proximal rectum with wall thickening and mild perirectal stranding as well as rectal distention suspected to be stercoral colitis with corresponding laboratory evidence of 31.2K with Left-shift of 1% present on admission and persistent chronic mild hyponatremia of 128 mmol/L present on admission who eventually was taken for colonoscopy and found to have significant constipation along with ileus and was placed on broad-spectrum antibiotics for his pneumonia and then he was discharged home for ~3 hours before returning to the [facility] ER complaining of chest pain radiating to the back with severe tachycardia of ~200 bpm complicating #1 & #2 - Noted. 4. Recent admission here from February 28, 2024 to March 02, 2024 for treatment of a syncopal episode with subsequent facial trauma causing Right mandibular condyle fracture complicated by CT evidence of pyelonephritis treated with ceftriaxone followed by a another even more recent admission here from March 15, 2024 to March 20, 2024 with MAXINE infiltrate with chest x-ray suggestive of pneumonia that was suspected to be community-acquired in origin along with corresponding Leukocytosis of 18K and clinical evidence of AE COPD with hayyv-dp-omongez respiratory insufficiency with urine cultures returning positive for Pseudomonas aeruginosa; sensitive to Levaquin; which was prescribed for a 7-day course along with a prednisone taper and mildly worsening chronic hyponatremia of 126 mmol/L present on admission complicated by CT positive for ~3.2 cm mid-sigmoid lesion suspicious for malignancy with patient instructed to follow-up as an outpatient with gastroenterology - Pattern of serial readmission for diverse and increasingly severe problems in spite of aggressive and appropriate care noted. 5. History of essential hypertension; on losartan - Continue losartan and add metoprolol 25 mg PO BID in light of #1. 6. History of tobacco abuse (quit early February 2024); with subsequent COPD and chronic hypoxic respiratory failure; on 2L NC previously nocturnal but now using continuously - Stable with no evidence of flare at this time. Resume prn nebulizers sparingly in case of possible supplemental factor in precipitating #1. 7. History of COVID-19 - Noted. 8. History of alcohol abuse; with patient stating he used to drink ~3-6 beers daily until February 27, 2024 with no alcohol intake since that time - Noted. 9. History of chronic hyponatremia; previously attributed to beer potomania - Serum sodium stable at 132 mmol/L present on admission. 10. History of IBS - Stable. 11. History of colon polyp - Noted. 12. History of hemorrhoids - Noted. 13. History of vasectomy - Noted for the sake of completeness. 14. History of colonoscopy - Noted. 15. History of appendectomy - Noted. 16. DVT prophylaxis - Patient on full-dose Lovenox for #1 plus SCD's. Total time: Approximately (but not less than) 75 minutes. Charges/Coding Visit Charges Inpatient E&M: 75561 Init Hosp L3
[2024-04-09] MEDS: 0.9% Normal Saline (1000mL) 1,000 ML 70 ML IV (02:56)
[2024-04-09] MEDS: Metoprolol Tartrate 25 MG Tablet PO ×3 (03:31→20:47)
[2024-04-09 04:17] LABS: Absolute Lymphocyte Count 1.28 X10^3/uL (0.83-4.51); Absolute Neutrophil Count 6.3 X10^3/uL (2.0-7.7); Basophil# 0.08 X10^3/uL; Basophil% 0.9 % (0-1); Eosinophil# 0.17 X10^3/uL; Eosinophils% 1.9 % (0-5); Hematocrit 26.9 % (40-54); Hemoglobin 9.1 g/dL (13.0-16.5); Lymphocyte # 1.28 X10^3/ul (0.83-4.51); Lymphocyte % 14.4 % (19-41); Mean Corp Hgb Conc 33.8 g/dL (32-36); Mean Corpuscular Hgb 30.4 pg (27.0-32.0); Mean Platelet Vol. 8.6 fl (6.2-12.0); Monocyte# 0.93 X10^3/uL; Monocyte% 10.5 % (0-10); NRBC Flagged by Analyzer 0 % (0-5); Neutrophil # 6.33 X10^3/uL (2.7-7.7); Neutrophil % 71.5 % (47-70); Platelet Count 548 K/mm3 (150-450); RBC Distribution Width CV 12.7 % (11.6-14.6); RBC Distribution Width SD 41.6 fl (35.1-43.9); Red Blood Count 2.99 M/mm3 (4.6-6.2); White Blood Count 8.9 K/mm3 (4.4-11.0)
[2024-04-09 04:34] LABS: ALB/GLOB Ratio 0.5 RATIO (0.9-2.4); AST(SGOT) 18 U/L (15-37); Alanine Aminotransfer ALT/SGPT 12 U/L (16-61); Albumin, Serum 1.8 g/dL (3.2-5.0); Alkaline Phosphatase 55 U/L (45-117); Anion Gap 7 (5-15); BUN 17 mg/dL (7-18); BUN/Creat Ratio 13.2 RATIO (10-20); Calcium,Total 8.2 mg/dL (8.5-10.1); Chloride 94 mmol/L (98-107); Creatinine, Serum 1.29 mg/dL (0.70-1.30); EST Glomerular Filtration Rate 60 mL/min (>60); Est Glom Filt Rate - Afr Amer 73 mL/min (>60); Estimated Creatinine Clearance 57.27 ml/min; Globulin 3.5 g/dL (2.2-4.2); Glucose 98 mg/dL (74-106); Phosphorus 2.7 mg/dL (2.5-4.9); Potassium 3.6 mmol/L (3.5-5.1); Protein, Total 5.3 g/dL (6.4-8.2); Sodium Level 134 mmol/L (136-145)
[2024-04-09 04:51] LABS: Troponin-I HS 129 pg/mL (3.0-78.0)
[2024-04-09] MEDS: Ipratropium/Albuterol Sulfate 3 ML AMPUL.NEB INHALATION ×3 (05:35→19:00)
[2024-04-09] MEDS: Budesonide Respules 0.5 MG/2 ML AMPUL.NEB. INHALATION ×2 (05:36→19:00)
--- NOTE | 2024-04-09 06:49 | PN.HOSP_ITS ---
Reason for Visit Reason for Visit: Diagnoses Supraventricular tachycardia, unspecified (04/09/24) Hypotension, unspecified (04/09/24) Chronic obstructive pulmonary disease, unspecified (04/09/24) Other disorders of lung (04/09/24) Other specified abnormal findings of blood chemistry (04/09/24) Adverse effect of unspecified drugs, medicaments and biological substances, initial encounter (04/09/24) Subjective Subjective No further SVT. Complains of LE edema (which he had last admission) Objective Data Objective Data Vital Signs: Vital Signs Temp Pulse Resp BP Pulse Ox O2 Del Method O2 Flow Rate 36.8 C 88 14 130/88 H 100 Nasal Cannula 2 04/09/24 06:00 04/09/24 06:00 04/09/24 06:00 04/09/24 06:00 04/09/24 06:00 04/09/24 06:00 04/09/24 06:00 Oxygen Flow Rate (L/min) 2 Oxygen Delivery Method Nasal Cannula Weight: 68.2 kg Body Mass Index (BMI) 21.5 Intake & Output: Intake and Output for Last 24 Hours 04/07/24 04/08/24 04/09/24 23:59 23:59 23:59 Intake Total 100 / 100 Balance 100 / 100 Lab / Micro Data 04/09/24 03:50 04/09/24 03:50 Labs: Laboratory Results - last 24 hr 04/08/24 22:03: WBC 11.5 H, RBC 3.96 L, Hgb 11.6 L, Hct 35.8 L, MCV 90.4, MCH 29.3, MCHC 32.4, RDW Std Deviation 41.4, RDW Coeff of Pam 12.5, Plt Count 650 H, MPV 8.9, Immature Gran % (Auto) 0.800, Neut % (Auto) 74.0 H, Lymph % (Auto) 11.7 L, [place] % (Auto) 10.2 H, Eos % (Auto) 2.5, Baso % (Auto) 0.8, Absolute Neuts (auto) 8.5 H, Absolute Lymphs (auto) 1.34, Nucleated RBC % 0, Sodium 132 L, Potassium 3.8, Chloride 89 L, Carbon Dioxide 34.0 H, Anion Gap 8, BUN 20 H, C reatinine 1.44 H, Estim Creat Clear Calc 51.46, Est GFR (MDRD) Af Amer 64, Est GFR (MDRD) Non-Af 53 L, BUN/Creatinine Ratio 13.9, Glucose 110 H, Calcium 9.2, Magnesium 1.9, Troponin I High Sens 19, TSH 3.650 04/09/24 00:10: Troponin I High Sens 80 H 04/09/24 03:50: WBC 8.9, RBC 2.99 L, Hgb 9.1 L, Hct 26.9 L, MCV 90.0, MCH 30.4, MCHC 33.8, RDW Std Deviation 41.6, RDW Coeff of Pam 12.7, Plt Count 548 H, MPV 8.6, Immature Gran % (Auto) 0.800, Neut % (Auto) 71.5 H, Lymph % (Auto) 14.4 L, [place] % (Auto) 10.5 H, Eos % (Auto) 1.9, Baso % (Auto) 0.9, Absolute Neuts (auto) 6.3, Absolute Lymphs (auto) 1.28, Nucleated RBC % 0, Sodium 134 L, Potassium 3.6, Chloride 94 L, Carbon Dioxide 33.0 H, Anion Gap 7, BUN 17, Creatinine 1.29, Estim Creat Clear Calc 57.27, Est GFR (MDRD) Af Amer 73, Est GFR (MDRD) Non-Af 60, BUN/Creatinine Ratio 13.2, Glucose 98, Calcium 8.2 L, Phosphorus 2.7, Total Bilirubin 0.20, AST 18, ALT 12 L, Alkaline Phosphatase 55, Troponin I High Sens 129 H*, Total Protein 5.3 L, Albumin 1.8 L, Globulin 3.5, Albumin/Globulin Ratio 0.5 L Radiography Diagnostic Testing: Radiology Impression Chest X-Ray 04/08/24 22:52 IMPRESSION: Persistent cavitary opacity at the left lung apex. Cavitary pneumonia and malignancy are both considered. Imaging follow-up recommended to ensure complete resolution. Reading Location: [facility] Chest CTA 04/09/24 00:03 IMPRESSION: 1. Redemonstration of an irregular marginated masslike consolidation in the left upper lobe which is similar in size and again demonstrates a small cavitary focus with central necrotic appearance. Findings may relate to malignancy. Other consideration could include infectious inflammatory process. Recommend tissue sampling. 2. No CT evidence of pulmonary embolism. 3. Trace left pleural effusion. 4. Small pericardial effusion anteriorly. One or more dose reduction techniques were used (e.g., Automated exposure control, adjustment of the mA and/or kV according to patient size, use of iterative reconstruction technique). Reading Location: [facility] Physical Exam Const alert and no apparent distress HEENT head/scalp atraumatic and moist oral mucous membranes Resp normal respiratory effort, no retractions, no use of accessory muscles and clear to auscultation bilaterally Cardio regular rate, regular rhythm, S1 normal heart sound and S2 normal heart sound GI normal to inspection, nondistended, normoactive bowel sounds, soft to palpation, non-tender and non-distended Extremity Extremity Narrative: 2+ LE edema bilaterally. Assessment & Plan Assessment/Plan (1) SVT (supraventricular tachycardia): PLAN: converted spontaneously check echo cardiology consult on metoprolol tartrate 25 BID. (2) Elevated troponin: PLAN: likely due to SVT. check echo (3) Leg edema: PLAN: 2/2 to 3rd spacing from protein calorie malnutrition plus fluids he received during that admission. IV furosemide while he is here PLAN: Plan Lung mass: abscess v carcinoma. On 4-weeks of abx. Follow up with pulmonology with repeat imaging. Colon mass has been ruled out Charges/Coding Visit Charges Inpatient E&M: 29616 Subs Hosp L2
--- NOTE | 2024-04-09 06:51 | ECHOL_ITS ---
Reason For Study Reason For Study: ARRHYTHMIA Procedure This was a limited 2D transthoracic echocardiogram. Exam performed portable in ICU/CCU. Left Ventricle Normal LV size. The estimated ejection fraction is 60 %. No regional wall motion abnormalities noted. MMode/2D Measurements & Calculations LVIDd: 4.0 cm IVSd: 1.0 cm LVAd ap4: 20.2 cm2 LVIDs: 2.6 cm LVPWd: 1.3 cm LVLd ap4: 7.4 cm FS: 33.3 % EDV(MOD-sp4): 45.7 ml EDV(sp4-el): 46.7 ml LVAs ap4: 11.1 cm2 LVLs ap4: 6.0 cm ESV(MOD-sp4): 18.4 ml ESV(sp4-el): 17.3 ml EF(MOD-sp4): 59.8 % EF(sp4-el): 63.0 % SV(MOD-sp4): 27.3 ml SV(sp4-el): 29.4 ml SI(MOD-sp4): 14.8 ml/m2 ECHO/Echo, Limited Study Interpretation Summary The estimated ejection fraction is 60 %. No regional wall motion abnormalities noted. Ordering Physician: Neil Augustin Referring Physician: Alfonso Fortune MD Performed By: Elizabet Temple RCS
[2024-04-09] MEDS: Dicyclomine 10 MG Capsule 20 MG PO ×3 (07:35→16:17)
[2024-04-09] MEDS: Losartan Potassium 100 MG Tablet PO (07:35)
[2024-04-09] MEDS: Doxycycline 100 MG CAPSULE PO ×2 (07:35→20:47)
[2024-04-09] MEDS: Mag Hydrox/Al Hydrox/Simeth 30 ML UDC PO (07:52)
[2024-04-09] MEDS: Folic Acid 1 MG Tablet PO (09:19)
[2024-04-09] MEDS: Enoxaparin 80 MG/0.8 ML Syringe 70 MG SC ×2 (09:19→16:58)
[2024-04-09] MEDS: metroNIDAZOLE 500 MG Tablet PO ×3 (09:19→16:58)
[2024-04-09] MEDS: guaiFENesin 1,200 MG Tablet 1200 MG PO ×2 (09:19→20:48)
[2024-04-09] MEDS: Aspirin 81 MG TAB.CHEW PO (09:20)
[2024-04-09] MEDS: Thiamine Hydrochloride 100 MG Tablet PO (09:21)
[2024-04-09] MEDS: Ceftriaxone 1 GM/50 ML BAG IV (09:22)
[2024-04-09] MEDS: Furosemide 40 MG/4 ML Vial IV ×2 (09:59→16:58)
--- NOTE | 2024-04-09 10:54 | CASEMGMT ---
Addendum entered by Jarret Reed 04/09/24 11:07: HH list provided to the pt at this time. Pt states, I am not up for looking at this right now. I am going to wait until this evening when my gets here. Pt educated that this could delay C set up going into the weekend but pt reports that he does not care. WHIT ROBINS for Monday 04/10 notified. Original Note: Readmission Note: Index: 03/28/24-04/08/24. Dx: Pneumonia Readmission: 04/09/24. SVT with CP From index admission, the patient was discharged home with his and a prescription for outpatient therapy. Patient also wears oxygen through [employer] @ 3 L continuously. Patient was prescribed four new medications. Per chart review, patient was only discharged home for around three hours and then came back into the hospital with chest pain. See H&P. Patient was found to be an SVT in the ER. Patient was admitted to the ICU for further management. WHIT CM to patient room at this time. Patient sitting comfortably in bed and is A&O times four and is calm. Patient states that he was able to get all of his medication but he was unable to follow up with any providers due to the turnaround time. Patient states that he was able to wear his oxygen accordingly while he was home. Patient states that he still has the outpatient therapy prescription. Moving forward, the patient states that he would like to go home at the time of discharge and is interested in home healthcare. Patient was educated about homebound status. Patient is aware and believes that he will qualify. Patient would like to review a list of local home healthcare companies that are in network with his [employer] insurance. CM to follow. Tentative plan: home with home healthcare & pt with the continuation of oxygen.
--- NOTE | 2024-04-09 11:01 | CASEMGMT ---
Discharge Planning A list of?HH providers including quality and resource use data and consistent with the patient's preferred geographic region, medical needs, and insurance network was created in CarePort Guide.? This list was provided to the RN JULIENNE. Juanita Keita, Discharge Planning Asst.
[2024-04-09] MEDS: Acetaminophen 325 MG Tablet 650 MG PO ×2 (12:43→20:47)
--- NOTE | 2024-04-09 14:02 | PCM.CONS.C ---
Assessment & Plan Assessment/Plan (1) SVT (supraventricular tachycardia): PLAN: Agree with beta-katya and evaluating his LV function with a limited 2D echo. His mild troponin elevation is likely from his SVT and no further workup is required for this. Patient could feel when he went into SVT and apparently lasted about an hour. Patient's telemetry overnight remains unremarkable he could be discharged home from a cardiac standpoint. HPI Consult Data Date of Consult: 04/09/24 HPI Narrative Reason for Consultation: SVT HPI Narrative: LAUREL OTERO, is a 63 M who presents with palpitations and chest pain. He was found to be in SVT in the emergency room. He spontaneously converted and has not had any further episodes since then. He has been started on a beta-katya and a limited echo is pending. Please see H&P for further details regarding his recent hospitalization. [facility] Medical History Smoker On home oxygen therapy IBS (irritable bowel syndrome) Hx of colonic polyp Alcohol abuse Hemorrhoids COPD (chronic obstructive pulmonary disease) Hypertension Arthritis Home Medications ?Medication ?Instructions ?Recorded ?Last Taken ?Type epinephrine 0.3 mg/0.3 mL 0.3 mg IM ONCE PRN anaphylaxis 07/07/23 Unknown History injection, auto-injector (EpiPen 2-Jesse) albuterol sulfate 90 mcg/actuation 1 puff inhalation Q6H PRN SOB #8.5 01/16/24 02/27/24 Rx aerosol inhaler grams Disability Placard #1 ea 01/30/24 Unknown Rx losartan 100 mg tablet 100 mg PO QDAY blood pressure 01/30/24 02/28/24 History fluticasone 500 mcg-salmeterol 50 1 inh inhalation BID respiratory 02/16/24 02/27/24 Rx mcg/dose blistr powdr for #3 ea inhalation (Advair Diskus) thiamine HCl (vitamin B1) 100 mg 100 mg PO DAILYCM supplement #30 03/02/24 Unknown Rx tablet tabs acetaminophen 500 mg tablet 1,000 mg PO Q8H pain 03/15/24 Unknown History folic acid 1 mg tablet 1 mg PO DAILY supplement 03/15/24 Unknown History sennosides 8.6 mg-docusate sodium 2 tab PO BID PRN Constipation 03/15/24 Unknown History 50 mg tablet (Stimulant Laxative Plus) tiotropium bromide 2.5 2 inh inhalation DAILY copd 03/15/24 Unknown History mcg/actuation mist for inhalation (Spiriva Respimat) bisacodyl 5 mg tablet 10 mg (2 x 5 mg) PO DAILY PRN 03/20/24 Unknown Rx constipation 0 days #10 tabs guaifenesin 1,200 mg tablet, 1,200 mg PO Q12H cough #10 tabs 03/20/24 Unknown Rx extended release 12 hr (Mucus Relief ER) melatonin 3 mg tablet 3 mg PO QHS PRN PRN Insomnia #0 03/20/24 Unknown Rx tabs polyethylene glycol 3350 17 17 g PO DAILY constipation #119 03/20/24 Unknown Rx gram/dose oral powder (Miralax) grams dicyclomine 10 mg capsule 20 mg (2 x 10 mg) PO TIDAC #30 caps 04/08/24 Unknown Rx doxycycline monohydrate 100 mg 100 mg PO BID #56 caps 04/08/24 Unknown Rx capsule levofloxacin 500 mg tablet 500 mg PO DAILY@0600 #28 tabs 04/08/24 Unknown Rx metronidazole 500 mg tablet 500 mg PO TIDCM #84 tabs 04/08/24 Unknown Rx Allergy/AdvReac Type Severity Reaction Status Date / Time amlodipine (From Norvasc) Allergy Swelling Verified 04/08/24 22:37 lisinopril Allergy Pain in Verified 04/08/24 22:37 joints tamsulosin Allergy Other Verified 04/08/24 22:37 tolterodine (From Detrol) Allergy Other Verified 04/08/24 22:37 Family History Mother Arthritis Father Diabetes Heart disease Hypertension Surgical History Hx of vasectomy Hx of colonoscopy Hx of appendectomy Social History household members: spouse and children housing: house current occupational status: employed Smoking Status: Former smoker second hand exposure: Yes alcohol intake: current alcohol intake frequency: 3 or more drinks per day substance use type: does not use caffeine: Yes what type of physical activity do you participate in: none frequency: does not exercise Physical Exam Const alert and oriented x3 HEENT normocephalic Eyes no scleral icterus Resp normal respiratory effort Risk Stratification Risk Stratification Applicable: No Charges/Coding Visit Charges Inpatient E&M: 09827 Init Hosp L1 Objective Data Vital Signs: Vital Signs Temp Pulse Resp BP Pulse Ox O2 Del Method O2 Flow Rate 98.1 F 99 21 H 133/82 H 97 Nasal Cannula 2 04/09/24 12:00 04/09/24 12:00 04/09/24 12:00 04/09/24 12:00 04/09/24 12:00 04/09/24 12:00 04/09/24 12:00 Oxygen Flow Rate (L/min) 2 Oxygen Delivery Method Nasal Cannula Weight: 150 lb 5.684 oz Body Mass Index (BMI) 21.5 Intake & Output: Intake and Output for Last 24 Hours 04/07/24 04/08/24 04/09/24 23:59 23:59 23:59 Intake Total 612 / 612 Output Total 300 / 300 Balance 312 / 312 Lab / Micro Data 04/09/24 03:50 04/09/24 03:50 Labs: Laboratory Results - last 24 hr 04/08/24 22:03: WBC 11.5 H, RBC 3.96 L, Hgb 11.6 L, Hct 35.8 L, MCV 90.4, MCH 29.3, MCHC 32.4, RDW Std Deviation 41.4, RDW Coeff of Pam 12.5, Plt Count 650 H, MPV 8.9, Immature Gran % (Auto) 0.800, Neut % (Auto) 74.0 H, Lymph % (Auto) 11.7 L, Camp % (Auto) 10.2 H, Eos % (Auto) 2.5, Baso % (Auto) 0.8, Absolute Neuts (auto) 8.5 H, Absolute Lymphs (auto) 1.34, Nucleated RBC % 0, Sodium 132 L, Potassium 3.8, Chloride 89 L, Carbon Dioxide 34.0 H, Anion Gap 8, BUN 20 H, Creatinine 1.44 H, Estim Creat Clear Calc 51.46, Est GFR (MDRD) Af Amer 64, Est GFR (MDRD) Non-Af 53 L, BUN/Creatinine Ratio 13.9, Glucose 110 H, Calcium 9.2, Magnesium 1.9, Troponin I High Sens 19, TSH 3.650 04/09/24 00:10: Troponin I High Sens 80 H 04/09/24 03:50: WBC 8.9, RBC 2.99 L, Hgb 9.1 L, Hct 26.9 L, MCV 90.0, MCH 30.4, MCHC 33.8, RDW Std Deviation 41.6, RDW Coeff of Pam 12.7, Plt Count 548 H, MPV 8.6, Immature Gran % (Auto) 0.800, Neut % (Auto) 71.5 H, Lymph % (Auto) 14.4 L, Camp % (Auto) 10.5 H, Eos % (Auto) 1.9, Baso % (Auto) 0.9, Absolute Neuts (auto) 6.3, Absolute Lymphs (auto) 1.28, Nucleated RBC % 0, Sodium 134 L, Potassium 3.6, Chloride 94 L, Carbon Dioxide 33.0 H, Anion Gap 7, BUN 17, Creatinine 1.29, Estim Creat Clear Calc 57.27, Est GFR (MDRD) Af Amer 73, Est GFR (MDRD) Non-Af 60, BUN/Creatinine Ratio 13.2, Glucose 98, Calcium 8.2 L, Phosphorus 2.7, Total Bilirubin 0.20, AST 18, ALT 12 L, Alkaline Phosphatase 55, Troponin I High Sens 129 H*, Total Protein 5.3 L, Albumin 1.8 L, Globulin 3.5, Albumin/Globulin Ratio 0.5 L Cardiology Labs/Tests 04/08/24 22:03: WBC 11.5 H, RBC 3.96 L, Hgb 11.6 L, Hct 35.8 L, MCV 90.4, MCH 29.3, MCHC 32.4, Plt Count 650 H, MPV 8.9, Immature Gran % (Auto) 0.800, Neut % (Auto) 74.0 H, Lymph % (Auto) 11.7 L, Camp % (Auto) 10.2 H, Eos % (Auto) 2.5, Baso % (Auto) 0.8, Absolute Neuts (auto) 8.5 H, Nucleated RBC % 0, Sodium 132 L, Potassium 3.8, Chloride 89 L, Carbon Dioxide 34.0 H, Anion Gap 8, BUN 20 H, Creatinine 1.44 H, Est GFR (MDRD) Af Amer 64, Est GFR (MDRD) Non-Af 53 L, BUN/Creatinine Ratio 13.9, Glucose 110 H, Calcium 9.2, Magnesium 1.9 04/09/24 03:50: WBC 8.9, RBC 2.99 L, Hgb 9.1 L, Hct 26.9 L, MCV 90.0, MCH 30.4, MCHC 33.8, Plt Count 548 H, MPV 8.6, Immature Gran % (Auto) 0.800, Neut % (Auto) 71.5 H, Lymph % (Auto) 14.4 L, Camp % (Auto) 10.5 H, Eos % (Auto) 1.9, Baso % (Auto) 0.9, Absolute Neuts (auto) 6.3, Nucleated RBC % 0, Sodium 134 L, Potassium 3.6, Chloride 94 L, Carbon Dioxide 33.0 H, Anion Gap 7, BUN 17, Creatinine 1.29, Est GFR (MDRD) Af Amer 73, Est GFR (MDRD) Non-Af 60, BUN/Creatinine Ratio 13.2, Glucose 98, Calcium 8.2 L, Phosphorus 2.7, Total Bilirubin 0.20 Rhythm: EKG: ECHO: Stress Test: Cardiac Cath: PCI: CT Surgery: Holter monitor: EPS: PPM: CXR: Chest CT Scan: Radiography Diagnostic Testing: Radiology Impression Chest X-Ray 04/08/24 22:52 IMPRESSION: Persistent cavitary opacity at the left lung apex. Cavitary pneumonia and malignancy are both considered. Imaging follow-up recommended to ensure complete resolution. [facility] Chest CT[facility] 04/09/24 00:03 IMPRESSION: 1. Redemonstration of an irregular marginated masslike consolidation in the left upper lobe which is similar in size and again demonstrates a small cavitary focus with central necrotic appearance. Findings may relate to malignancy. Other consideration could include infectious inflammatory process. Recommend tissue sampling. 2. No CT evidence of pulmonary embolism. 3. Trace left pleural effusion. 4. Small pericardial effusion anteriorly. One or more dose reduction techniques were used (e.g., Automated exposure control, adjustment of the mA and/or kV according to patient size, use of iterative reconstruction technique). Reading [facility]
--- NOTE | 2024-04-09 15:45 | CHAPLAIN ---
Type of Pastoral Visit _x__ Initial Visit ___ Follow-up Visit ___ On-call Visit ___ General Patient Visit ___ Spiritual Assessment ___ Family Conference ___ Bereavement ___ Rapid Response ___ Code Blue ___ Other (describe below) Pastoral Care Referral From _x__ Patient ___ Family ___ Nurse ___ Physician ___ Cosmetology Professor ___ Spectrograph Operator ___ Other (describe below) Sacrament/Intervention _x__ Active listening ___ Anointing ___ Spiritism ___ Bereavement ___ Communion ___ Janice exploration ___ ___ Life review _x__ Prayer ___ Reconciliation ___ Sacrament of Sick _x__ Supportive presence ___ Wedding ___ Other (describe below) Pastoral Comments patient was released and returned all yesterday; pt in ICU with weakness and difficulty in breathing; sat with patient; pt expresses that he just couldn't manage at home; pt concerned for his father who is sick, his who is working so hard to keep everything together, and his laura daughter that has a special muller with him who worries about him; sat with patient with calming presence; offered a prayer for needs of patient and family
[2024-04-10] VITALS (15 sets, daily range): BP systolic 109–157; BP diastolic 55–98; PULSE 92–109; RESP 13–21; TEMP 36.6–36.9; O2SAT 97–99; BMI 21.5; BMI 20.9
[2024-04-10] MEDS: Enoxaparin 80 MG/0.8 ML Syringe 70 MG SC (05:07)
[2024-04-10] MEDS: Ipratropium/Albuterol Sulfate 3 ML AMPUL.NEB INHALATION ×2 (05:12→12:05)
[2024-04-10] MEDS: Budesonide Respules 0.5 MG/2 ML AMPUL.NEB. INHALATION (05:13)
--- NOTE | 2024-04-10 07:27 | PCM.PN.HOSP ---
Reason for Visit Reason for Visit: Diagnoses Supraventricular tachycardia, unspecified (04/09/24) Hypotension, unspecified (04/09/24) Chronic obstructive pulmonary disease, unspecified (04/09/24) Other disorders of lung (04/09/24) Localized edema (04/09/24) Other specified abnormal findings of blood chemistry (04/09/24) Adverse effect of unspecified drugs, medicaments and biological substances, initial encounter (04/09/24) Subjective Subjective Still with LE edema. Objective Data Objective Data Vital Signs: Vital Signs Temp Pulse Resp BP Pulse Ox O2 Del Method O2 Flow Rate 36.6 C 99 18 135/55 H 98 Nasal Cannula 2 04/10/24 05:00 04/10/24 07:00 04/10/24 07:00 04/10/24 07:00 04/10/24 07:00 04/10/24 07:00 04/10/24 07:00 Oxygen Flow Rate (L/min) 2 Oxygen Delivery Method Nasal Cannula Weight: 66.4 kg Body Mass Index (BMI) 20.9 Intake & Output: Intake and Output for Last 24 Hours 04/08/24 04/09/24 04/10/24 23:59 23:59 23:59 Intake Total 1092 / 1092 120 / 120 Output Total 300 / 300 Balance 792 / 792 120 / 120 Medical Nutrition Assessment Dietitian: Malnutrition Criteria Met Start: 04/09/24 09:54 Freq: Status: Active Protocol: Document 04/09/24 15:17 SB (Rec: 04/09/24 15:17 SB [id number]) Nutrition Malnutrition Evidence of Yes Malnutrition Exists Malnutrition (severe Acute Illness/Injury ): Evidenced By Suboptimal Energy Intake (Severe),Physical Changes ( Moderate) Clinical Problem Acute Disease or Injury Related Malnutrition Etiology severe related to inadequate oral intake since jaw fracture on 02/28/24 Signs/Symptoms as evidenced by PO meeting <75% of estimated nutrition needs x 1 month and (severe) 4+ pitting edema on BLE. Status Active Problem Recommendation Dietitian Continue to cardiac diet d/t severe pitting edema. As Recommendations/ edema improves recommend liberal regular diet. Changes Will add soft and bite sized consistency per pt request . Will order 240ml chocolate ensure plus high protein TID with meals. Will monitor weight trends. Reviewed and approved by Jil Mcdonald RD, LD. Lab / Micro Data 04/09/24 03:50 04/09/24 03:50 Radiography Diagnostic Testing: Radiology Impression Echocardiogram 04/09/24 06:51 Interpretation Summary The estimated ejection fraction is 60 %. No regional wall motion abnormalities noted. Ordering Physician: Neil Augustin Referring Physician: Alfonso Fortune MD Performed By: Elizabet Temple RCS Physical Exam Const alert and no apparent distress HEENT head/scalp atraumatic and moist oral mucous membranes Resp normal respiratory effort and no retractions Extremity Extremity Narrative: decreased LE edema Assessment & Plan Assessment/Plan (1) SVT (supraventricular tachycardia): PLAN: converted spontaneously. No further events. echo shows an EF 60%. cardiology consult on metoprolol tartrate 25 BID. (2) Elevated troponin: PLAN: likely due to SVT. echo grossly unremarkable. cannot rule out this being iatrogenic. If so, then more likely from levofloxacin rather than metronidazole. (3) Leg edema: PLAN: 2/2 to 3rd spacing from protein calorie malnutrition plus fluids he received during that admission. IV furosemide while he is here PLAN: Plan Lung mass: abscess v carcinoma. On 4-weeks of abx. Follow up with pulmonology with repeat imaging. Will continue with PO doxy and metronidazole. Given the concern for the SVT from abx, will change levofloxacin to Augmentin. Pt to follow up with Dr. Kruse in 2 weeks. Colon mass has been ruled out
--- NOTE | 2024-04-10 08:59 | CASEMGMT ---
Social Work SW received a call from pt's inquiring if pt will be d/c today. She wanted to consider SNF for pt. SW reviewed PT, pt walked 330 modified independent. SW explained to that pt would not qualify under insurance for SNF. SW spoke w/ about HHC, she is agreeable to HHC rather than outpt PT at this time. inquired if someone would be w/pt all of the time with home health. SW educated to HHC, and that it is intermittent, with PT/OT/nursing coming in 1-3 times per week for 45 minutes to an hour each time. states understanding. She is nervous about driving to the hospital today in the weather. SW explained will reach out to the physician and see if pt is being discharged today, will let her know. She also asked to change the pharmacy to [facility], SW changed this in [employer]. SW reached out to the physician, and he states pt will be d/c today. CHRISTINE called back to let her know, explained will have RN in ICU call her once pt is d/c so she can give it some time before she comes in, for the roads to hopefully clear a bit. CHRISTINE then put on the phone w/CM to discuss HHC. ZIYAD Patterson
--- NOTE | 2024-04-10 09:08 | CASEMGMT ---
Addendum entered by Zaynab Roque 04/10/24 11:41: Referral sent to [facility], [facility] and [facility] at this time via careport as they are the 4/5 star rated HHCs. Original Note: Spoke with pt who states that she has no preference in [employer] but would like to go in order of stars. She is aware this may not be able to be set up until Friday. She has questions that are requested to be asked of the bedside nurse. states pt is afraid to be alone, discussed options of or other family members staying with pt or private duty. She denies need for list of private duty. Pt denies further questions.
--- NOTE | 2024-04-10 09:27 | PCM.DC.SUM ---
Providers Date of Admission: 04/09/24 Primary Care Physician: Dr. Alfonso Fortune MD Consultations 04/09/24 02:48 Consult: Cardiology Routine Consulting Provider: Marya Zamarripa Reason for Consult: SVT with Chest Pain and Elevated Troponin. EMERGENT Consult: No MD Notified: Yes Date Notified: 04/09/24 Time Notified: 02:48 Method of Notification: ED Physician Initiated Reason For Visit: SVT WITH CHEST PAIN Diagnosis Discharge Diagnosis (1) SVT (supraventricular tachycardia): Status: Acute Code(s): I47.10 - Supraventricular tachycardia, unspecified Plan: converted spontaneously. No further events. echo shows an EF 60%. cardiology consult on metoprolol tartrate 25 BID. (2) Elevated troponin: Status: Acute Code(s): R79.89 - Other specified abnormal findings of blood chemistry Plan: likely due to SVT. echo grossly unremarkable. cannot rule out this being iatrogenic. If so, then more likely from levofloxacin rather than metronidazole. (3) Leg edema: Status: Acute Code(s): R60.0 - Localized edema Plan: 2 to 3rd spacing from protein calorie malnutrition plus fluids he received during that admission. IV furosemide while he is here Plan Lung mass: abscess v carcinoma. On 4-weeks of abx. Follow up with pulmonology with repeat imaging. Will continue with PO doxy and metronidazole. Given the concern for the SVT from abx, will change levofloxacin to Augmentin. Pt to follow up with Dr. Kruse in 2 weeks. Colon mass has been ruled out Medications at Discharge Home Medications epinephrine 0.3 mg/0.3 mL injection, auto-injector (EpiPen 2-Jesse) 0.3 mg IM ONCE PRN anaphylaxis 07/07/23 albuterol sulfate 90 mcg/actuation aerosol inhaler 1 puff inhalation Q6H PRN SOB #8.5 grams 01/16/24 Disability Placard #1 ea 01/30/24 losartan 100 mg tablet 100 mg PO QDAY blood pressure 01/30/24 fluticasone 500 mcg-salmeterol 50 mcg/dose blistr powdr for inhalation (Advair Diskus) 1 inh inhalation BID respiratory #3 ea 02/16/24 thiamine HCl (vitamin B1) 100 mg tablet 100 mg PO DAILYCM supplement #30 tabs 03/02/24 acetaminophen 500 mg tablet 1,000 mg PO Q8H pain 03/15/24 folic acid 1 mg tablet 1 mg PO DAILY supplement 03/15/24 sennosides 8.6 mg-docusate sodium 50 mg tablet (Stimulant Laxative Plus) 2 tab PO BID PRN Constipation 03/15/24 tiotropium bromide 2.5 mcg/actuation mist for inhalation (Spiriva Respimat) 2 inh inhalation DAILY copd 03/15/24 bisacodyl 5 mg tablet 10 mg (2 x 5 mg) PO DAILY PRN constipation 0 days #10 tabs 03/20/24 guaifenesin 1,200 mg tablet, extended release 12 hr (Mucus Relief ER) 1,200 mg PO Q12H cough #10 tabs 03/20/24 melatonin 3 mg tablet 3 mg PO QHS PRN PRN Insomnia #0 tabs 03/20/24 polyethylene glycol 3350 17 gram/dose oral powder (Miralax) 17 g PO DAILY constipation #119 grams 03/20/24 dicyclomine 10 mg capsule 20 mg (2 x 10 mg) PO TIDAC #30 caps 04/08/24 doxycycline monohydrate 100 mg capsule 100 mg PO BID #56 caps 04/08/24 metronidazole 500 mg tablet 500 mg PO TIDCM #84 tabs 04/08/24 amoxicillin 875 mg-potassium clavulanate 125 mg tablet 1 tab PO Q12H #56 tabs 04/10/24 metoprolol tartrate 25 mg tablet 25 mg PO BID #60 tabs 04/10/24 Hospital Course Operations None Procedures 2-D Echocardiogram Summary of Care Provided Minutes Spent on Discharge: 35 Hospital Course: Patient does get discharged after 11-day hospitalization where he was treated for a lung mass that was either an abscess or carcinoma and then had issues in regards to constipation questionable bowel mass and developed an ileus. Patient was discharged and then 3 hours later had a feeling of pressure in his chest. He was found to be in SVT and before he could be cardioverted he converted himself. Patient was then subsequently started on metoprolol 25 mg twice daily. Echocardiogram was unremarkable. There was some concern that maybe his levofloxacin may have contributed to that that he was on for his lung mass. That is since been discontinued and he will be on Augmentin in the meantime. He will be on Augmentin, doxycycline and metronidazole for this lung mass and will follow-up with infectious disease and pulmonary. Additionally, patient will follow-up with cardiology regards to his SVT. He did have lower extremity edema which he actually had previous during the previous hospitalization is likely due to third spacing given his protein calorie malnutrition. Patient encouraged to eat more and eat properly. And also advised that his swelling will improve as he is ambulating more. Medical Records Data Medical Nutrition Assessment Dietitian: Malnutrition Criteria Met Start: 04/09/24 09:54 Freq: Status: Active Protocol: Document 04/09/24 15:17 SB (Rec: 04/09/24 15:17 SB [id number]) Nutrition Malnutrition Evidence of Yes Malnutrition Exists Malnutrition (severe Acute Illness/Injury ): Evidenced By Suboptimal Energy Intake (Severe),Physical Changes ( Moderate) Clinical Problem Acute Disease or Injury Related Malnutrition Etiology severe related to inadequate oral intake since jaw fracture on 02/28/24 Signs/Symptoms as evidenced by PO meeting <75% of estimated nutrition needs x 1 month and (severe) 4+ pitting edema on BLE. Status Active Problem Recommendation Dietitian Continue to cardiac diet d/t severe pitting edema. As Recommendations/ edema improves recommend liberal regular diet. Changes Will add soft and bite sized consistency per pt request . Will order 240ml chocolate ensure plus high protein TID with meals. Will monitor weight trends. Reviewed and approved by Jil Mcdonald RD, LD. Weight / BMI Weight Weight: 66.4 kg Body Mass Index (BMI) 20.9 ABG / Lab / Microbiology Data 04/09/24 03:50 04/09/24 03:50 Radiography Diagnostic Testing: Radiology Impression Echocardiogram 04/09/24 06:51 Interpretation Summary The estimated ejection fraction is 60 %. No regional wall motion abnormalities noted. Ordering Physician: Neil Augustin Referring Physician: Alfonso Fortune MD Performed By: Elizabet Temple RCS D/C Instructions Discharge Diet: No restrictions DC O2, CPAP, BIPAP Needs Home O2 Discharge instructions: Yes Type of respiratory needs?: Oxygen Oxygen frequency: Continuous Continuous oxygen liters per minute: 2 DC home with Oxygen: Yes Home O2 MD Review: I have reviewed the oxygen testing, and the patient qualifies for home oxygen equipment and portability. The patient is mobile in the home and the community. Meaningful Use Info Meaningful Use Meaningful Use Diagnoses (Choose all that apply): None applicable Ischemic Stroke Statin Dosing Therapy Reference: STATIN DOSE THERAPY REFERENCE: * Patients > 75 years receive moderate or high dose statin therapy. * Patients 75 years or YOUNGER should receive HIGH intensity statin dose unless contraindicated. You will be required to document reason for non-treatment if statin daily dose does not meet guidelines. HIGH DOSE STATIN THERAPY DAILY Atorvastatin > than or = to 40 mg Rosuvastatin > than or = to 20 mg Amlodipine + Atorvastatin > than or = to 2.5/40 mg Ezetimibe + Simvastatin 10/80 mg Simvastatin 80mg Discharge Plan Admission Admit Date/Time: 04/09/24 02:11 Primary Reason for Your Visit: SVT Attending Provider: Neil Augustin Primary Care Provider: Alfonso Fortune Consulting Providers: Marya Zamarripa; Felix Greenfield Instructions Additional Instructions / Restrictions: You had a very fast heart rate called supraventricular tachycardia. You converted on your own. There is concern that the levofloxacin (one of the antibiotics you were presecribed) may have contributed to it, so that has been discontinued and you will be on Augmentin instead, you will continue with the other antibiotics as previously instructed (doxycycline and metronidazole). For your heart rate, you will be on metoprolol, which help prevent you heart rate from getting so fast Discharge Orders/Prescriptions Prescriptions: New metoprolol tartrate 25 mg Tablet 25 mg PO BID Qty: 60 0RF amoxicillin-pot clavulanate 875-125 mg tablet 1 tab PO Q12H Qty: 56 0RF Continued losartan 100 mg tablet 100 mg PO QDAY (DME) Disability Placard See Rx Instructions .ROUTE .MEDSUPPLY Qty: 1 0RF Rx Instructions: expires 01/29/2029 epinephrine [EpiPen 2-Jesse] 0.3 mg/0.3 mL auto-injector 0.3 mg IM ONCE PRN (Reason: anaphylaxis) Rx Instructions: as a single dose; may repeat once thiamine HCl (vitamin B1) 100 mg Tablet 100 mg PO DAILYCM Qty: 30 0RF sennosides-docusate sodium [Stimulant Laxative Plus] 8.6-50 mg Tablet 2 tab PO BID PRN (Reason: Constipation) acetaminophen 500 mg Tablet 1,000 mg PO Q8H folic acid 1 mg Tablet 1 mg PO DAILY Spiriva Respimat 2.5 mcg/actuation mist 2 inh inhalation DAILY Rx Instructions: administer at approximately the same time(s) each day melatonin 3 mg Tablet 3 mg PO QHS PRN PRN (Reason: Insomnia) Qty: 0 0RF polyethylene glycol 3350 [Miralax] 17 gram/dose powder 17 g PO DAILY Qty: 119 0RF Rx Instructions: over the counter, no prescription required. bisacodyl 5 mg tablet 10 mg PO DAILY PRN (Reason: constipation) Qty: 10 0RF Rx Instructions: over the counter. No prescription required. guaifenesin [Mucus Relief ER] 1,200 mg tablet extended release 12hr 1,200 mg PO Q12H Qty: 10 0RF metronidazole 500 mg Tablet 500 mg PO TIDCM Qty: 84 0RF doxycycline monohydrate 100 mg Capsule 100 mg PO BID Qty: 56 0RF dicyclomine 10 mg Capsule 20 mg PO TIDAC Qty: 30 0RF albuterol sulfate 90 mcg/actuation HFA aerosol inhaler 1 puff INHALATION Q6H PRN (Reason: SOB) Qty: 8.5 11RF fluticasone propion-salmeterol [Advair Diskus] 500-50 mcg/dose blister with device 1 inh inhalation BID Qty: 3 3RF Discontinued levofloxacin 500 mg Tablet 500 mg PO DAILY@0600 Qty: 28 0RF Referrals / Follow Up: [facility] [Provider Group] - Within 1 Month [facility] [Provider Group] - Within 1 Month Alfonso Fortune MD [Primary Care Provider] - Within 2 Weeks Ricci Kruse MD [Med Staff - Active Staff] - Within 2 Weeks [facility] [Provider Group] - Within 1 Month Disposition Disposition (needs filled in before D/C Order can be placed): Home, Self Care Charges/Coding Visit Charges Inpatient E&M: 00140 Disch Hosp >30min
[2024-04-10] MEDS: Dicyclomine 10 MG Capsule 20 MG PO ×2 (09:35→12:27)
[2024-04-10] MEDS: Metoprolol Tartrate 25 MG Tablet PO (09:36)
[2024-04-10] MEDS: Losartan Potassium 100 MG Tablet PO (09:37)
[2024-04-10] MEDS: Thiamine Hydrochloride 100 MG Tablet PO (09:37)
[2024-04-10] MEDS: Doxycycline 100 MG CAPSULE PO (09:37)
[2024-04-10] MEDS: Folic Acid 1 MG Tablet PO (09:38)
[2024-04-10] MEDS: guaiFENesin 1,200 MG Tablet 1200 MG PO (09:38)
[2024-04-10] MEDS: Aspirin 81 MG TAB.CHEW PO (09:38)
[2024-04-10] MEDS: metroNIDAZOLE 500 MG Tablet PO ×2 (09:38→12:27)
[2024-04-10] MEDS: Furosemide 40 MG/4 ML Vial IV (10:15)
[2024-04-10] MEDS: Ceftriaxone 1 GM/50 ML BAG IV (10:16)
--- NOTE | 2024-04-12 09:42 | CASEMGMT ---
[facility] have declined the pt. [facility] states that they are considering accepting the pt and are further looking into the referral. CM to follow.
--- NOTE | 2024-04-12 10:04 | CASEMGMT ---
[facility] has accepted. Pts , Tiana, updated. [facility] asked to arrange soc with pts . RN CM updated. Juanita Keita DC Planning Asst.
== END 2024-04-10 13:15 | disposition home or self-care (01) | DRG 308 ==
LOC: ED 23:59 → ICU 04-09 02:36
PROVIDERS: Admitting Provider Internal Medicine; Emergency Provider Emergency Medicine; PCP Family Medicine
DX: I47.10 Supraventricular tachycardia, unspecified (principal); E43 Unspecified severe protein-calorie malnutrition; J96.11 Chronic respiratory failure with hypoxia; E87.1 Hypo-osmolality and hyponatremia; Z99.81 Dependence on supplemental oxygen; J44.9 Chronic obstructive pulmonary disease, unspecified; I10 Essential (primary) hypertension; I95.9 Hypotension, unspecified; K63.9 Disease of intestine, unspecified; R60.0 Localized edema; R91.8 Other nonspecific abnormal finding of lung field; R79.89 Other specified abnormal findings of blood chemistry; T36.8X5A Adverse effect of other systemic antibiotics, initial encounter; T37.3X5A Adverse effect of other antiprotozoal drugs, initial encounter; Z79.899 Other long term (current) drug therapy; Z87.898 Personal history of other specified conditions; Z86.16 Personal history of COVID-19; Z87.19 Personal history of other diseases of the digestive system; Z90.49 Acquired absence of other specified parts of digestive tract; Z87.81 Personal history of (healed) traumatic fracture; Z87.891 Personal history of nicotine dependence; Z68.20 Body mass index [BMI] 20.0-20.9, adult
CPT/HCPCS: 71045; 71275; 80048; 80053; 83735; 84100; 84443; 84484; 85025; 93005; 93308; 94640; 94668; 94762; 97162; 99285; 99406; Q9967; A4216; J1940

== ENCOUNTER → 2024-05-03 | Outpatient (CLI) | payer OTHER, SELFPAY ==
--- NOTE | 2024-05-03 15:32 | RAD_ITS ---
EXAM: XR Chest, 2 Views CLINICAL INDICATION: LUNG ABSCESS TECHNIQUE: Frontal and lateral views of the chest. COMPARISON: No relevant prior studies available. FINDINGS: LUNGS AND PLEURAL SPACES: Prominent right perihilar airspace disease could be asymmetric congestion or developing pneumonia. Hyperlucent lungs. Flattening of the diaphragm. No pneumothorax. HEART: Unremarkable. No cardiomegaly. MEDIASTINUM: Unremarkable. Normal mediastinal contour. BONES/JOINTS: Unremarkable. No acute fracture. RAD/Chest PA and Lateral IMPRESSION: 1. Prominent right perihilar airspace disease could be asymmetric congestion o r developing pneumonia. 2. Suggestion of COPD. Left upper lobe pulmonary mass can not be clearly note d as comparison to the CT exam dated 04/09/2024. Reading [facility]
== END | disposition home or self-care (01) ==
LOC: RAD 15:26
PROVIDERS: PCP Family Medicine; Referring Provider Internal Medicine Infectious Disease; Visit Provider Internal Medicine Infectious Disease
DX: J85.2 Abscess of lung without pneumonia (principal)
CPT/HCPCS: 71046

== ENCOUNTER 2024-05-05 19:29 | Emergency (ER) | payer OTHER, SELFPAY ==
[2024-05-05 19:30] VITALS: BP 97/64; PULSE 119; RESP 22; TEMP 36.3; O2SAT 96
--- NOTE | 2024-05-05 19:45 | RAD_ITS ---
PROCEDURE: Right knee radiographs REASON FOR EXAM: PAIN TECHNIQUE: Four views of the right knee COMPARISON: None. FINDINGS: See impression RAD/Knee 4 or More Views IMPRESSION: Negative for acute fracture or subluxation. 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 Chondrocalcinosis. Large nonspecific joint effusion. Reading Location: [facility]
--- NOTE | 2024-05-05 20:59 | EDS_ITS ---
HPI History of Present Illness Chief Complaint: Lower Extremity Injury Informant: patient and family Narrative Narrative: Here with daughter nontraumatic right knee pain and swelling for the past 6 days. Pain worse with ambulation. He reports slight fevers. No cough no urinary symptoms no vomiting diarrhea. No history of mL suppressants. COPD on chronic oxygenation. No anticoagulation medicines. This past February had a fall jaw fracture followed up no surgical intervention. No allergies to pain medications. Knows he has arthritis however not formally diagnosed. Denies history of diabetes. Prior similar symptoms: No PFSH PFSH Medical History Chronic hyponatremia Colonic mass Tobacco dependence COPD (chronic obstructive pulmonary disease) Stercoral colitis Smoking greater than 40 pack years Smoker On home oxygen therapy IBS (irritable bowel syndrome) Hx of colonic polyp Alcohol abuse Hemorrhoids COPD (chronic obstructive pulmonary disease) Hypertension Arthritis Home Medications ?Medication ?Instructions ?Recorded ?Last Taken ?Type epinephrine 0.3 mg/0.3 mL 0.3 mg IM ONCE PRN anaphylax is 07/07/23 Unknown History injection, auto-injector (EpiPen 2-Jesse) albuterol sulfate 90 mcg/actuation 1 puff inhalation Q 6H PRN SOB #8.5 01/16/24 02/27/24 Rx aerosol inhaler grams Disability Placard #1 ea 01/30/24 Unknown Rx losartan 100 mg tablet 100 mg PO QDAY blood pressur e 01/30/24 02/28/24 History fluticasone 500 mcg-salmeterol 50 1 inh inhalation BID respiratory 02/16/24 02/27/24 Rx mcg/dose blistr powdr for #3 ea inhalation (Advair Diskus) thiamine HCl (vitamin B1) 100 mg 100 mg PO DAILYCM sup plement #30 03/02/24 Unknown Rx tablet tabs acetaminophen 500 mg tablet 1,000 mg PO Q8H pain 03/15 Unknown History sennosides 8.6 mg-docusate sodium 2 tab PO BID PRN Con stipation 03/15/24 Unknown History 50 mg tablet (Stimulant Laxative Plus) tiotropium bromide 2.5 2 inh inhalation DAILY copd 03/15/24 Unknown History mcg/actuation mist for inhalation (Spiriva Respimat) bisacodyl 5 mg tablet 10 mg (2 x 5 mg) PO DAILY HI N 03/20/24 Unknown Rx constipation 0 days #10 tabs polyethylene glycol 3350 17 17 g PO DAILY constipation #119 03/20/24 Unknown Rx gram/dose oral powder (Miralax) grams doxycycline monohydrate 100 mg 100 mg PO BID #56 caps 04/08/24 Unknown Rx capsule metronidazole 500 mg tablet 500 mg PO TIDCM #84 tabs 0 04/08/24 Unknown Rx amoxicillin 875 mg-potassium 1 tab PO Q12H #56 tabs Unknown Rx clavulanate 125 mg tablet metoprolol tartrate 25 mg tablet 25 mg PO BID #60 tabs 04/10/24 Unknown Rx cyclobenzaprine 10 mg tablet mg PO 05/03/24 Unknown Hi story dicyclomine 10 mg capsule 20 mg PO TIDAC PRN 05/03/24 Unknown History guaifenesin 1,200 mg tablet, 1,200 mg PO Q12H #60 tabs 05/03/24 Unknown Rx extended release 12 hr oxycodone 5 mg tablet mg PO 05/03/24 Unknown Histo ry colchicine 0.6 mg capsule 0.6 mg PO BID #30 caps 05/06 Unknown Rx docusate sodium 100 mg capsule 100 mg PO BID #30 caps 05/06/24 Unknown Rx (Colace) oxycodone-acetaminophen 5 mg-325 1 tab PO Q6H PRN PRN Pain 3 days 05/06/24 Unknown Rx mg tablet #12 TABLETS Allergy/AdvReac Type Severity Reaction Status Date / Time amlodipine (From Norvasc) Allergy Swelling Verified 05/05/24 19:30 lisinopril Allergy Pain in Verified 05/05/24 19:30 joints tamsulosin Allergy Other Verified 05/05/24 19:30 tolterodine (From Detrol) Allergy Other Verified 05/05/24 19:30 Family History Mother Arthritis Father Diabetes Heart disease Hypertension Surgical History Hx of vasectomy Hx of colonoscopy Hx of appendectomy Social History household members: spouse and children housing: house current occupational status: employed Smoking Status: Former smoker second hand exposure: Yes alcohol intake: current alcohol intake frequency: 3 or more drinks per day substance use type: does not use caffeine: Yes what type of physical activity do you participate in: none frequency: does not exercise ROS ROS ED Constitutional Constitutional ED: Reports fever(s); Denies chills or sweats ENT ENT ED: Denies sore throat Cardiovascular Cardiovascular: Denies chest pain, leg edema, palpitations or racing heartbeat Respiratory/Chest Respiratory/Chest: Denies cough, dyspnea or dyspnea on exertion Gastrointestinal Gastrointestinal: Denies abdominal pain, diarrhea, nausea or vomiting Genitourinary Genitourinary ED: Denies dysuria, hematuria or urinary frequency Musculoskeletal Musculoskeletal: Reports extremity pain; Denies back pain or neck pain Integumentary Denies rash or wounds Neurologic Neurologic: Denies headache(s), paresthesias or weakness EXAM Physical Exam Const Vital Signs: 05/05/24 19:30 05/05/24 22:00 05/05/24 23:00 Temperature 97.4 F L 98.1 F 98.1 F Temperature Source Temporal Oral Oral Pulse Rate 119 H 107 H 96 Respiratory Rate 22 H 20 H 18 Blood Pressure 97/64 118/73 95/67 Blood Pressure Mean 75 88 76 Pulse Ox 96 100 100 Oxygen Delivery Method Nasal Cannula Nasal Cannula Nasal Cannula Oxygen Flow Rate (L/min) 2 2 2 05/06/24 00:00 Temperature 98.0 F Temperature Source Oral Pulse Rate 96 Respiratory Rate 18 Blood Pressure 108/70 Blood Pressure Mean 82 Pulse Ox 99 Oxygen Delivery Method Nasal Cannula Oxygen Flow Rate (L/min) 2 Positive well nourished and well developed General Appearance ED: well developed and NAD HEENT Reports moist mucous membranes normocephalic and atraumatic Eyes General Eye ED: Yes normal appearance of both eyes Neck full ROM Chest Wall Chest: Negative for tenderness Resp normal respiratory effort and normal air movement Effort and Inspection: symmetric chest movement; Negative for respiratory distress Cardio regular rhythm and no murmurs Rate: tachycardic Peripheral Pulses: pulses 2+ throughout GI normal to inspection, nondistended, normoactive bowel sounds and non-tender Palpation: Negative for guarding or rebound tenderness present Extremity Extremity Narrative: Right lower extremity: Suprapubic effusion and swelling. Pain with movement of the knee. Mild warmth. No redness. No deformities. General Extremety ED: Yes edema and tenderness General Extremity: edema Neuro oriented x3 and no sensory deficits noted Sensorium / Orientation: awake and alert Skin no rashes or lesions noted and no wounds MDM MDM MDM Narrative Medical decision making narrative: Interventions / MDM: Differential diagnosis: Pseudogout right knee, right knee pain, history of COPD on oxygen Diagnosis considered but do not suspect: Septic knee white count and Gram stain negative. My EKG interpretation: N/A Imaging independently reviewed and interpreted by myself: Right knee x-ray 4 views: Tricompartment syndrome greater medially with joint effusion. External documents reviewed: Recent hospitalization with lung abscess antibiotics of doxycycline, Levaquin, metronidazole. Test considered but not ordered:N/A ED course: Patient afebrile tachycardic. Nontoxic. Nontraumatic pain with swelling. Triage obtain 4 view x-ray right knee tricompartment osteoarthritis more significant medial aspect with joint effusion. There is warmth reported fevers nontraumatic pain, I discussed with him arthrocentesis to rule out septic knee. He agrees. Consent will be obtained labs include inflammatory markers ordered. Morphine for pain control. 2213: Written consent obtained for right knee arthrocentesis. Risk and benefits discussed. Timeout performed. Normal sterile conditions. ChloraPrep of the right knee lateralpatellar ligament. Sterile gloves and technique use with 18- gauge 1/2 inch needle advanced with cloudy yellow urine. Initial 10 cc removed. With withdrawal approximately-1 inch additional 13 cc of fluid cloudy fluid removed. Needle was removed, no bleeding, bandage was placed. Patient tolerated the procedure well. 2223: White count 9.1, ESR at 74 pending CRP. Additional pain control with morphine. Fluid sent to lab for further evaluation. 2355: Patient's synovial WBCs 25,000, is less than 50,000. CRP 123. I discussed with the lab they can run the Gram stain which is pending. Crystals are running. 0010: Crystals return calcium pyrophosphate consistent with pseudogout. Will wait on Gram stain results prior to final disposition. Patient reports history of alcohol dependence however stopped drinking 4 months ago. Platelets 709. Hemoglobin 10.3. 0100: Gram stain returned negative for any growth. Cultures pending. Did review his records he is on antibiotics for a lung abscess with 4 days left. He does follow infectious disease. Consider admission with his knee pain, however he states he has been using a walker at home. He did not feel he needed to go to rehab. He does have alcohol history denies any history of varices or gastric ulcers. Labs with normal kidney function. He started on colchicine, oxycodone, stool softeners to avoid constipation as he had stercoral colitis in the past. Given follow-up with orthopedics. All questions were answered. Re-evaluation: stable Disposition discussed with patient/family/significant other: Patient Case discussed with consulting clinician: N/A This note was generated with [employer] dictation software. It may contain incorrect words, spelling, and punctuation that were not noted in checking the note before signing. Lab Data Attestation: I reviewed the patient's lab results. Labs: Laboratory Results - last 24 hr 05/05/24 05/05/24 21:11 22:25 WBC 11.1 H RBC 3.48 L Hgb 10.3 L Hct 30.6 L MCV 87.9 MCH 29.6 MCHC 33.7 RDW Std Deviation 41.5 RDW Coeff of Pam 13.0 Plt Count 709 H MPV 8.2 Immature Gran % (Auto) 0.700 Neut % (Auto) 70.4 H Lymph % (Auto) 14.7 L Terrell % (Auto) 12.7 H Eos % (Auto) 0.4 Baso % (Auto) 1.1 H Absolute Neuts (auto) 7.8 H Absolute Lymphs (auto) 1.63 Nucleated RBC % 0 ESR 74 H Sodium 130 L Potassium 3.7 Chloride 92 L Carbon Dioxide 23.1 Anion Gap 14 BUN 17 Creatinine 0.86 Est GFR (MDRD) Non-Af 98 BUN/Creatinine Ratio 20.2 H Glucose 111 H Calcium 9.4 C-React Prot Ext Range 123.00 H Fluid Source Cancelled Fluid Color Cancelled Fluid Appearance Cancelled Fluid WBC Cancelled Fluid RBC Cancelled Fluid Tot Cell Count Cancelled Fld Polynuclear WBCs # Cancelled Fld Polynuclear WBCs % Cancelled Fluid Mononuclear WBCs Cancelled Fld Mononuclear WBCs % Cancelled Fluid Neutrophils Cancelled Fluid Lymphocytes Cancelled Fluid Monocytes Cancelled Fluid Plasma Cells Cancelled Fluid Macrophages Cancelled Fld Mesothelial Cells Cancelled Fluid Other Cells Cancelled Fluid Crystals CALCIUM PYROPHOS Fluid Crystal Source SYNOVIAL Fl Crystal Path Review Will follow Fl Pathologist Comment Cancelled Fluid Comment 2 Cancelled Synovial Source RIGHT KNEE Synovial Color Yellow Synovial Appearance Cloudy Synovial Volume 8.0 H Synovial Viscosity Sl. Viscous Synovial WBC 24.6500 H Synovial RBC 0.005 H Synovial Tot Cell Ct 24.7250 H Synov Polynuclear WBCs 22.432 Synov Mononuclear WBCs 2.246 Synovial Neutrophils 85 H Synovial Lymphocytes 4 Synovial Monocytes 11 Synovial Polynuclear % 91.0 Synovial Mononuclear % 9.[address] Comment May follow Radiography Diagnostic Testing: Clinical Impression(s) from Imaging Studies Knee X-Ray 05/05/24 19:45 IMPRESSION: Negative for acute fracture or subluxation. Tricompartmental osteoarthritis, severe in the medial compartment. Chondrocalcinosis. Large nonspecific joint effusion. Reading [facility] Triage Chief Complaint: Lower Extremity Injury ED Provider: Canelo Heredia Dx/Rx/DC Orders Clinical Impression: Acute gout of right knee, Arthritis, Pseudogout of knee Instructions: Treating Gout Attacks, ED Gout, ED Gout Diet Prescriptions: New oxycodone-acetaminophen 5-325 mg tablet 1 tab PO Q6H PRN PRN (Reason: Pain) 3 Days Qty: 12 0RF docusate sodium [Colace] 100 mg capsule 100 mg PO BID Qty: 30 0RF colchicine 0.6 mg capsule 0.6 mg PO BID Qty: 30 0RF No Action losartan 100 mg tablet 100 mg PO QDAY (DME) Disability Placard See Rx Instructions .ROUTE .MEDSUPPLY Qty: 1 0RF Rx Instructions: expires 01/29/2029 epinephrine [EpiPen 2-Jesse] 0.3 mg/0.3 mL auto-injector 0.3 mg IM ONCE PRN (Reason: anaphylaxis) Rx Instructions: as a single dose; may repeat once cyclobenzaprine 10 mg tablet PO oxycodone 5 mg tablet PO dicyclomine 10 mg capsule 20 mg PO TIDAC PRN guaifenesin 1,200 mg tablet extended release 12hr 1,200 mg PO Q12H Qty: 60 6RF thiamine HCl (vitamin B1) 100 mg Tablet 100 mg PO DAILYCM Qty: 30 0RF sennosides-docusate sodium [Stimulant Laxative Plus] 8.6-50 mg Tablet 2 tab PO BID PRN (Reason: Constipation) acetaminophen 500 mg Tablet 1,000 mg PO Q8H Spiriva Respimat 2.5 mcg/actuation mist 2 inh inhalation DAILY Rx Instructions: administer at approximately the same time(s) each day polyethylene glycol 3350 [Miralax] 17 gram/dose powder 17 g PO DAILY Qty: 119 0RF Rx Instructions: over the counter, no prescription required. bisacodyl 5 mg tablet 10 mg PO DAILY PRN (Reason: constipation) Qty: 10 0RF Rx Instructions: over the counter. No prescription required. metronidazole 500 mg Tablet 500 mg PO TIDCM Qty: 84 0RF doxycycline monohydrate 100 mg Capsule 100 mg PO BID Qty: 56 0RF metoprolol tartrate 25 mg Tablet 25 mg PO BID Qty: 60 0RF amoxicillin-pot clavulanate 875-125 mg tablet 1 tab PO Q12H Qty: 56 0RF albuterol sulfate 90 mcg/actuation HFA aerosol inhaler 1 puff INHALATION Q6H PRN (Reason: SOB) Qty: 8.5 11RF fluticasone propion-salmeterol [Advair Diskus] 500-50 mcg/dose blister with device 1 inh inhalation BID Qty: 3 3RF Primary Care Provider: Alfonso Fortune Referrals: Alfonso Fortune MD [Primary Care Provider] - 1-2 Weeks Jeremy Reed MD [Med Staff - Active Staff] - 1-2 Weeks Activity Restrictions/Additional Instructions: Knee x-ray with tricompartment arthritis mostly affecting the medial component. Knee aspiration performed. White count 25, positive for gout with calcium pyrophosphate, Gram stain negative. Your cultures pending. Take medications prescribed for you. Take stool softener to prevent constipation. Stevie wrap for comfort continue to use your walker. Follow-up with Dr. Reed. Print Language: B[place] Disposition Disposition: Home, Self Care
[2024-05-05] MEDS: Morphine 4 MG/ML Syringe IV ×2 (21:16→22:42)
[2024-05-05 21:35] LABS: Absolute Lymphocyte Count 1.63 X10^3/uL (0.83-4.51); Absolute Neutrophil Count 7.8 X10^3/uL (2.0-7.7); Basophil# 0.12 X10^3/uL; Basophil% 1.1 % (0-1); Eosinophil# 0.04 X10^3/uL; Eosinophils% 0.4 % (0-5); Erythrocyte Sedimentation Rate 74 mm/hr (0-20); Hematocrit 30.6 % (40-54); Hemoglobin 10.3 g/dL (13.0-16.5); Lymphocyte # 1.63 X10^3/ul (0.83-4.51); Lymphocyte % 14.7 % (19-41); Mean Corp Hgb Conc 33.7 g/dL (32-36); Mean Corpuscular Hgb 29.6 pg (27.0-32.0); Mean Corpuscular Volume 87.9 fL (80-94); Mean Platelet Vol. 8.2 fl (6.2-12.0); Monocyte# 1.41 X10^3/uL; Monocyte% 12.7 % (0-10); NRBC Flagged by Analyzer 0 % (0-5); Neutrophil % 70.4 % (47-70); Platelet Count 709 K/mm3 (150-450); RBC Distribution Width SD 41.5 fl (35.1-43.9); Red Blood Count 3.48 M/mm3 (4.6-6.2); White Blood Count 11.1 K/mm3 (4.4-11.0)
[2024-05-05 21:58] LABS: Anion Gap 14 (5-15); BUN 17 mg/dL (4-19); BUN/Creat Ratio 20.2 RATIO (10-20); Calcium,Total 9.4 mg/dL (7.6-11.0); Carbon Dioxide 23.1 mmol/L (21.0-32.0); Chloride 92 mmol/L (98-108); Creatinine, Serum 0.86 mg/dL (0.70-1.20); EST Glomerular Filtration Rate 98 (>60); Glucose 111 mg/dL (70-99); Potassium 3.7 mmol/L (3.3-5.1); Sodium Level 130 mmol/L (133-145)
[2024-05-05 22:00] VITALS: BP 118/73; PULSE 107; RESP 20; TEMP 36.7; O2SAT 100
[2024-05-05 22:19] VITALS: BMI 18.5
[2024-05-05 22:34] LABS: Pathologist Comment May follow
[2024-05-05 23:00] VITALS: BP 95/67; PULSE 96; RESP 18; TEMP 36.7; O2SAT 100
[2024-05-05 23:34] LABS: RBC /Synovial Fluid 0.005 10^6/uL (0); Synovial Fld Mononuclear WBC # 2.246 10^3/ul; Synovial Fld Polynuclear WBC # 22.432 10^3/uL
[2024-05-05 23:56] LABS: AUTO B FLUID DILUENT BKGD CT WBC <0.1 RBC <0.01 (W<.1,R<.01); CRYSTALS, BODY FLUID CALCIUM PYROPHOS; Source- Body Fluid SYNOVIAL
[2024-05-05 23:57] LABS: Source / Synovial Fluid RIGHT KNEE
[2024-05-06] VITALS: BP 108/70; PULSE 96; RESP 18; TEMP 36.7; O2SAT 99
[2024-05-06 00:01] LABS: Appearance /Synovial Fluid Cloudy (CLEAR); Color / Synovial Fluid Yellow (Pale Yellow); Viscosity / Synovial Fluid Sl. Viscous (HIGH)
[2024-05-06 00:51] LABS: Lymph 4 %; Monocyte /Synovial Fluid 11 %; Neutrophil 85 % (0-25)
[2024-05-06 00:54] LABS: Body Fluid QC Type(s) BF6Q; Pathologist Review Will follow
[2024-05-06 01:00] VITALS: BP 123/74; PULSE 90; PULSE 98; RESP 18; TEMP 36.7; O2SAT 98
[2024-05-06] MEDS: oxyCODONE 5 MG Tablet PO (01:11)
[2024-05-06] MEDS: Colchicine 0.6 MG TABLET 1.2 MG PO (01:11)
== END 2024-05-06 02:00 | disposition home or self-care (01) ==
PROVIDERS: Emergency Provider Emergency Medicine; PCP Family Medicine; Visit Provider Emergency Medicine
DX: M11.261 Other chondrocalcinosis, right knee (principal); J44.9 Chronic obstructive pulmonary disease, unspecified; F10.21 Alcohol dependence, in remission; M17.11 Unilateral primary osteoarthritis, right knee; M10.9 Gout, unspecified; I10 Essential (primary) hypertension; Z99.81 Dependence on supplemental oxygen; Z87.19 Personal history of other diseases of the digestive system; Z79.899 Other long term (current) drug therapy; Z87.891 Personal history of nicotine dependence
CPT/HCPCS: 20610; 73564; 80048; 85025; 85652; 86140; 87070; 87075; 87205; 89050; 89051; 89060; 96374; 96376; 99285; A4216

== ENCOUNTER → 2024-05-27 | Outpatient (CLI) | payer OTHER, SELFPAY ==
--- NOTE | 2024-05-27 18:37 | CT_ITS ---
PROCEDURE: CHEST WITHOUT CONTRAST 05/27/2024 REASON FOR EXAM: Lung infection. Lung abscess. TECHNIQUE: Chest CT without contrast. Coronal and Sagittal reconstruction series were provided. One or more dose reduction techniques were used (e.g., Automated exposure control, adjustment of the mA and/or kV according to patient size, use of iterative reconstruction technique RADIATION DOSE SUMMARY: CTDlvol: 6.36 mGy DLP: 243.27 mGycm COMPARISON: Chest radiographs 04/10/2024. CT chest 04/06/2024 FINDINGS: Hardware: No hardware. Lymph nodes: Chest radiographs 04/08/2019 Heart and Vasculature: Normal size heart. No pericardial effusion. Coronary Artery Calcifications: Moderate Lungs and Airways: On the previous study there was large thick-walled cavitary lesion in the left upper lobe. This has resolved to a large degree. There is now only a elongated, stellate fibrotic scar, much smaller than the previous lesion but at the same location. Pleura: No pleural effusions. Upper Abdomen: No acute process demonstrated in the upper abdomen. Bones: No aggressive bony lesions. CT/Chest without Contrast IMPRESSION: Coronary artery calcification (CAC) is moderate Previous large cavitary spiculated lung abscess has gotten substantially smalle r and there is only a residual, elongated stellate scar, no cavitation Reading Location: [id number]
== END | disposition home or self-care (01) ==
LOC: CT 18:36
PROVIDERS: PCP Family Medicine; Referring Provider Nurse Practitioner Acute Care; Visit Provider Nurse Practitioner Acute Care
DX: J85.2 Abscess of lung without pneumonia (principal)
CPT/HCPCS: 71250

== ENCOUNTER → 2024-06-01 | Outpatient (CLI) | payer OTHER, SELFPAY ==
--- NOTE | 2024-06-01 12:34 | RAD_ITS ---
PROCEDURE: THORACIC SPINE 2 VIEWS 06/01/2024 REASON FOR EXAM: FU COMPRESSION FRACTURES TECHNIQUE: Two views of the thoracic spine COMPARISON: CTA April 08, 2024 FINDINGS: Vertebrae: Chronic appearing age-indeterminate compression deformity of the L1 and L2 vertebral body. Bridging osteophytosis along the T11-T12 Discs: Multilevel loss of intervertebral disc height most prominent at T12-L1 Alignment: Straightening of the thoracic spine. Other: RAD/Thoracic Spine 2 Views IMPRESSION: Chronic appearing age-indeterminate compression deformity of the L1 and L2 vert ebral body. Multilevel degenerative changes throughout the thoracic spine. Reading Location: [id number]
== END | disposition home or self-care (01) ==
LOC: MTRAD 12:34
PROVIDERS: PCP Family Medicine; Referring Provider Family Medicine; Visit Provider Family Medicine
DX: M54.6 Pain in thoracic spine (principal)
CPT/HCPCS: 72070

== ENCOUNTER → 2024-06-10 | Outpatient (CLI) | payer OTHER, SELFPAY ==
--- NOTE | 2024-06-10 14:46 | BD_ITS ---
PROCEDURE: DEXA BONE DENSITY STUDY 06/10/2024 REASON FOR EXAM: M, age 63 y/o . Osteopenia multiple sites. TECHNIQUE: DXA scan of the lumbar spine and both hips using make and model. REFERENCE LINKS: ISCD Adult Positions COMPARISON: Comparison is made with prior study dated July 10, 2021. FINDINGS: BMD and T-SCORES Lumbar spine: 1.059 g/cm2, T-Score 0.1 L1 through L4 Change from prior: Loss of 7.5% Left femoral neck: 0.670 g/cm2, T-Score -1.9 Femoral neck comparison data not recommended for monitoring change. Left total hip: 0.897 g/cm2, T-Score -0.9 Change from prior: Improvement of 1.5% Right femoral neck: 0.613 g/cm2, T-Score -2.3 Femoral neck comparison data not recommended for monitoring change. Right total hip: 0.859 g/cm2, T-Score -1 point Change from prior: Improvement of 0.4% Fracture Risk Calculation: FRAX (10-year Fracture Risk) Score: FRAX scores should never be reported in a patient with osteoporosis on DEXA or for any patient that is on bone medication. The patient doesmeet the pharmacological treatment recommendations for prevention of osteoporosis BD/Dexa Bone Density Study IMPRESSION: OSTEOPENIA. Recommend follow-up as clinically warranted. Reading Location: [id number]
== END | disposition home or self-care (01) ==
LOC: OPBD 14:45
PROVIDERS: PCP Family Medicine; Referring Provider Family Medicine; Visit Provider Family Medicine
DX: M85.89 Other specified disorders of bone density and structure, multiple sites (principal)
CPT/HCPCS: 77080

== ENCOUNTER → 2024-06-30 | Outpatient (CLI) | payer OTHER, SELFPAY ==
[2024-06-30 10:37] LABS: Ionized Calcium Order ORDER TUBE
[2024-06-30 11:03] LABS: PTHIN 21 pg/mL (11-61)
[2024-06-30 12:03] LABS: Anion Gap 13 (5-15); BUN 13 mg/dL (4-19); BUN/Creat Ratio 19.3 RATIO (10-20); Carbon Dioxide 26.6 mmol/L (21.0-32.0); Chloride 96 mmol/L (98-108); Creatinine, Serum 0.69 mg/dL (0.70-1.20); EST Glomerular Filtration Rate 104 (>60); Glucose 115 mg/dL (70-99); Phosphorus 3.6 mg/dL (2.7-4.5); Potassium 4.1 mmol/L (3.3-5.1); Sodium Level 135 mmol/L (133-145)
== END | disposition home or self-care (01) ==
LOC: MFPLAB 09:35
PROVIDERS: PCP Family Medicine; Referring Provider Family Medicine; Visit Provider Family Medicine
DX: M85.80 Other specified disorders of bone density and structure, unspecified site (principal)
CPT/HCPCS: 36415; 80048; 83735; 83970; 84100; 84443

== ENCOUNTER 2024-07-10 01:07 | Observation (INO) | payer OTHER, SELFPAY ==
[2024-07-10] VITALS (19 sets, daily range): BP systolic 119–156; BP diastolic 77–83; PULSE 84–109; RESP 14–26; TEMP 36.6–37.1; O2SAT 87–99; BMI 19.4
[2024-07-10] MEDS: Ipratropium/Albuterol Sulfate 3 ML AMPUL.NEB INHALATION ×4 (01:42→15:50)
[2024-07-10] MEDS: Albuterol 2.5 MG/3 ML VIAL.NEB. INHALATION ×2 (01:42→04:58)
[2024-07-10] MEDS: Morphine 4 MG/ML Syringe IV (01:44)
[2024-07-10] MEDS: MethylPREDNISolone 125 MG/2 ML Vial IV (01:45)
[2024-07-10] MEDS: Ondansetron 4 MG/2 ML Vial IV (01:45)
[2024-07-10 02:03] LABS: Absolute Lymphocyte Count 2.34 X10^3/uL (0.83-4.51); Absolute Neutrophil Count 8.4 X10^3/uL (2.0-7.7); Basophil# 0.13 X10^3/uL; Eosinophil# 0.41 X10^3/uL; Eosinophils% 3.3 % (0-5); Hemoglobin 11.9 g/dL (13.0-16.5); Lymphocyte # 2.34 X10^3/ul (0.83-4.51); Lymphocyte % 18.9 % (19-41); Mean Corp Hgb Conc 33.1 g/dL (32-36); Mean Corpuscular Volume 87.8 fL (80-94); Mean Platelet Vol. 8.3 fl (6.2-12.0); Monocyte# 1.12 X10^3/uL; NRBC Flagged by Analyzer 0 % (0-5); Neutrophil # 8.36 X10^3/uL (2.7-7.7); Neutrophil % 67.4 % (47-70); Platelet Count 476 K/mm3 (150-450); RBC Distribution Width CV 13.7 % (11.6-14.6); RBC Distribution Width SD 43.9 fl (35.1-43.9); White Blood Count 12.4 K/mm3 (4.4-11.0)
--- NOTE | 2024-07-10 02:20 | RAD_ITS ---
PROCEDURE: CHEST PA AND LATERAL 07/10/2024 REASON FOR EXAM: DYSPNEA TECHNIQUE: Frontal and lateral views of the chest. COMPARISON: 05/03/2024 FINDINGS: The lungs appear clear. Pulmonary vascularity appears within limits. No pleural effusion. The cardiac and mediastinal contours appear within limits. Old L2 wedge compression deformity and upper to mid superior endplate compression deformities again noted. RAD/Chest PA and Lateral IMPRESSION: No evidence of acute disease. Reading Location: [id number]
[2024-07-10 02:34] LABS: Anion Gap 13 (5-15); BUN 15 mg/dL (4-19); BUN/Creat Ratio 23.8 RATIO (10-20); Calcium,Total 9.3 mg/dL (7.6-11.0); Chloride 90 mmol/L (98-108); Creatinine, Serum 0.62 mg/dL (0.70-1.20); EST Glomerular Filtration Rate 108 (>60); Estimated Creatinine Clearance 107.31 ml/min (50-250); Glucose 85 mg/dL (70-99); Pro- Brain NATRIURETIC PEPTIDE 258 pg/mL (<=900); Sodium Level 129 mmol/L (133-145)
--- NOTE | 2024-07-10 03:31 | EX.ED.DYSGE1 ---
HPI History of Present Illness Chief Complaint: Shortness of Breath Informant: patient and EMS Narrative Narrative: Patient is a 63-year-old male with past medical history of COPD who continues to smoke roughly half a pack a day. He also has a past medical history of hypertension and chronic hyponatremia. He states that he wears nasal cannula oxygen at nighttime but does not typically require it throughout the day. He states that he has been admitted in the past for COPD mainly secondary to worsening of symptoms from pneumonia. He states there has been no recent fevers or chills or known sick contact. He reports however that his recently bathed the 2 dogs and what ever chemical she used in their bath he feels exacerbated his COPD. He reports he took his medications to help without symptom resolution and therefore comes to the hospital for evaluation. [facility] Medical History (Updated 07/10/24 @ 04:[address] Andres Juarez, ) COPD (chronic obstructive pulmonary disease) (~06/07/24) SVT (supraventricular tachycardia) Chronic hyponatremia Colonic mass Tobacco dependence Stercoral colitis Smoking greater than 40 pack years Smoker On home oxygen therapy IBS (irritable bowel syndrome) Hx of colonic polyp Alcohol abuse Hemorrhoids COPD (chronic obstructive pulmonary disease) Hypertension Arthritis Home Medications ?Medication ?Instructions ?Recorded ?Last Taken ?Type epinephrine 0.3 mg/0.3 mL 0.3 mg IM ONCE PRN anaphylaxis 07/07/23 Unknown History injection, auto-injector (EpiPen 2-Jesse) Disability Placard #1 ea 01/30/24 Unknown Rx fluticasone 500 mcg-salmeterol 50 1 inh inhalation BID respiratory 02/16/24 02/27/24 Rx mcg/dose blistr powdr for #3 ea inhalation (Advair Diskus) tiotropium bromide 2.5 2 inh inhalation DAILY copd 03/15/24 Unknown History mcg/actuation mist for inhalation (Spiriva Respimat) metoprolol tartrate 25 mg tablet 25 mg PO BID #60 tabs 04/10/24 Unknown Rx albuterol sulfate 90 mcg/actuation 2 puff inhalation Q4H PRN SOB 05/14/24 Unknown History aerosol inhaler melatonin 3 mg tablet 3 mg PO HS PRN sleep 05/14/24 Unknown History prednisone 20 mg tablet 20 mg PO QDAY #30 tabs 05/24/24 Unknown Rx Allergy/AdvReac Type Severity Reaction Status Date / Time amlodipine (From Norvasc) Allergy Swelling Verified 05/31/24 08:37 lisinopril Allergy Pain in Verified 05/31/24 08:37 joints tamsulosin Allergy Other Verified 05/31/24 08:37 tolterodine (From Detrol) Allergy Other Verified 05/31/24 08:37 Family History Mother Arthritis Father Diabetes Heart disease Hypertension Surgical History Hx of vasectomy Hx of colonoscopy Hx of appendectomy Social History household members: spouse and children housing: house current occupational status: employed Smoking Status: Light Smoker (<10/day) second hand exposure: Yes alcohol intake: current alcohol intake frequency: 3 or more drinks per day Alcohol type: beer substance use type: does not use caffeine: Yes what type of physical activity do you participate in: none frequency: does not exercise ROS ROS ED Constitutional Constitutional ED: Denies chills or fever(s) Eyes Eyes: Denies change in vision ENT ENT ED: Denies rhinorrhea or sore throat Cardiovascular Cardiovascular: Reports racing heartbeat; Denies chest pain or palpitations Respiratory/Chest Respiratory/Chest: Reports cough and dyspnea Gastrointestinal Gastrointestinal: Denies abdominal pain, diarrhea, nausea or vomiting Genitourinary Genitourinary ED: Denies dysuria Musculoskeletal Musculoskeletal: Reports back pain Integumentary Denies rash Neurologic Neurologic: Denies headache(s) Hematologic/Lymphatic Hematologic/Lymphatic: Denies easy bleeding or easy bruising Allergic/Immunologic Allergic/Immunologic ED: Denies mouth swelling or tongue swelling EXAM Physical Exam Const Vital Signs: 07/10/24 01:08 07/10/24 01:11 07/10/24 01:11 Temperature 98.2 F 98.2 F Temperature Source Oral Oral Pulse Rate 104 H 100 Respiratory Rate 22 H 22 H Respiratory Effort Short of Breath Accessory Muscle Use Pursed Lip Respiratory Depth Deep Respiratory Pattern Tachypnea Blood Pressure 144/82 H 144/82 H Blood Pressure Mean 102 102 Pulse Ox 97 96 Oxygen Delivery Method Room Air Room Air Room Air Oxygen Flow Rate (L/min) 07/10/24 01:41 07/10/24 02:08 07/10/24 02:11 Temperature 98.1 F Temperature Source Oral Pulse Rate 93 109 H 101 H Respiratory Rate 22 H 19 H 17 Respiratory Effort Respiratory Depth Respiratory Pattern Tachypnea Blood Pressure 156/83 H 156/83 H Blood Pressure Mean 107 107 Pulse Ox 95 95 Oxygen Delivery Method Room Air Oxygen Flow Rate (L/min) 07/10/24 02:13 07/10/24 03:00 Temperature 98.7 F Temperature Source Oral Pulse Rate 105 H Respiratory Rate 17 Respiratory Effort Respiratory Depth Respiratory Pattern Blood Pressure 138/83 H Blood Pressure Mean 101 Pulse Ox 96 96 Oxygen Delivery Method Nasal Cannula Nasal Cannula Oxygen Flow Rate (L/min) 2 2 Positive well nourished and well developed General Appearance ED: well developed; Negative for pallor HEENT HEENT Narrative: No tongue or lip swelling no oral lesions no airway edema or compromise No secondary findings in the posterior pharynx to suggest infection Eyes PERRL and EOMs intact bilaterally General Eye ED: Negative for scleral icterus Neck supple and no JVD Neck Narrative: No nuchal rigidity or meningeal signs noted Chest Wall palpation of chest normal Chest Narrative: No bony deformity or crepitance Resp Resp Narrative: Patient is in mild respiratory distress with tachypnea and slight accessory muscle use. Breath sounds are diminished throughout with diffuse expiratory wheeze and faint rhonchi in the bilateral bases Cardio regular rhythm Rate: tachycardic and other Other Details: Slightly tachycardic rate with regular rhythm Radial and carotid pulses are equal and symmetric Back/Spine Back/Spine Narrative: No bony deformity or step-off of the thoracic or lumbar spine. There is lower thoracic pain with palpation however patient reports this is chronic in nature Extremity Extremity Narrative: Trace to +1 pitting edema to the bilateral lower extremities that is equal and symmetric Negative Homans' sign bilaterally Neuro oriented x3, CN's II-XII intact bilaterally and no sensory deficits noted Sensorium / Orientation: alert Motor Exam: strength 5/5 throughout Psych Mood & Affect: anxious Skin no rashes or lesions noted General Skin Exam: Negative for jaundice or pallor MDM MDM MDM Narrative Medical decision making narrative: Patient arrived to the ER in mild respiratory distress. He reported a longstanding history of COPD and tobacco abuse. There is concern that the patient is having a COPD exacerbation from chemical pneumonitis based on his report of exposure to a new soap this evening. With back pain there is concern he may have a pneumonia or pneumothorax. Patient could also have atypical presentation for acute coronary syndrome. Secondary to this an EKG was obtained which revealed normal sinus rhythm without ischemic findings going against ACS. proBNP is normal going against congestive heart failure and x-ray does not display pneumothorax or pneumonia. Patient was given IV steroids as well as breathing treatments and did have improvement of his work of breathing and breath sounds. The patient does have oxygen available to him at home but with his history of chemical exposure as the main cause of his COPD exacerbation I do not feel that sending him back to the place where the chemical is still present is his best option. There is high likelihood that with return home and reexposure to the chemical his COPD will flare once again necessitating return to the ER. Therefore the hospitalist was contacted and he agrees to accept the patient in observation status at this time to continue with breathing treatments and steroid therapy. Plan of care was discussed with the patient who is agreeable to it History & Record Review Discussion w/independent historian: EMS personnel and Patient Lab Data Attestation: I reviewed the patient's lab results. Labs: Laboratory Results - last 24 hr 07/10/24 01:47 WBC 12.4 H RBC 4.10 L Hgb 11.9 L Hct 36.0 L MCV 87.8 MCH 29.0 MCHC 33.1 RDW Std Deviation 43.9 RDW Coeff of Pam 13.7 Plt Count 476 H MPV 8.3 Immature Gran % (Auto) 0.400 Neut % (Auto) 67.4 Lymph % (Auto) 18.9 L [place] % (Auto) 9.0 Eos % (Auto) 3.3 Baso % (Auto) 1.0 Absolute Neuts (auto) 8.4 H Absolute Lymphs (auto) 2.34 Nucleated RBC % 0 Sodium 129 L Potassium 4.0 Chloride 90 L Carbon Dioxide 26.0 Anion Gap 13 BUN 15 Creatinine 0.62 L Estim Creat Clear Calc 107.31 Est GFR (MDRD) Non-Af 108 BUN/Creatinine Ratio 23.8 H Glucose 85 Calcium 9.3 Magnesium 2.0 NT pro BNP II 258 Radiography Diagnostic Testing: Clinical Impression(s) from Imaging Studies Chest X-Ray 07/10/24 02:20 IMPRESSION: No evidence of acute disease. Reading Location: [facility] Chest x-ray is interpreted by the emergency medicine physician reveals no acute infiltrate pneumothorax or pleural effusion Management Discussion w/another healthcare provider: Hospitalist Discharge Plan Dx/Rx/DC Orders Clinical Impression: Acute exacerbation of chronic obstructive pulmonary disease, Hypertension, Chronic hyponatremia, Tobacco abuse Disposition Disposition: Acute Care Hospital [facility] Discharge Date/Time: 07/10/24 04:13
--- NOTE | 2024-07-10 03:48 | PCM.HP.STD ---
HPI - General General Date of Admission: 07/10/24 Date of Service: 07/10/24 Chief Complaint: Shortness of breath HPI Narrative LAUREL OTERO, is a 63 M past medical history of hypertension on losartan, tobacco abuse, COPD on 2 L of oxygen [nocturnal only], alcohol abuse, irritable bowel syndrome, hemorrhoids, lung abscess s/p complete antibiotic therapy who presents to the ED with concerns regarding worsening shortness of breath since 1 day. He notes that he got exposed to strong odor of shampoo used by his to wash her dogs today and since then he has been noticing difficulty breathing and increased wheezing. No fever, occasional cough with white expectoration [baseline symptoms], no nausea or nausea no vomiting. Continues to smoke 4 to 5 cigarettes daily, consumes 3-4 beers daily. At the time of evaluation in the ED, afebrile, pulse 104, blood pressure 144/82, respiratory rate 22 initially 97% on room air but required 2 L of nasal cannula as blood saturation decreased to 92%. WBC 12.4, hemoglobin 11.9, platelet count 476 sodium 129, chloride 90, creatinine 0.6, glucose 85 NT-proBNP 258. Patient is worried that if he goes home and he gets reexposed to the chemicals his shortness of breath will record and like to stay the night for monitoring and also to avoid exposure to the shampoo odors. [facility] Medical History (Updated 07/10/24 @ 03:[address] Andres Juarez, ) COPD (chronic obstructive pulmonary disease) (~06/07/24) SVT (supraventricular tachycardia) Chronic hyponatremia Colonic mass Tobacco dependence Stercoral colitis Smoking greater than 40 pack years Smoker On home oxygen therapy IBS (irritable bowel syndrome) Hx of colonic polyp Alcohol abuse Hemorrhoids COPD (chronic obstructive pulmonary disease) Hypertension Arthritis Home Medications ?Medication ?Instructions ?Recorded ?Last Taken ?Type epinephrine 0.3 mg/0.3 mL 0.3 mg IM ONCE PRN anaphylaxis 07/07/23 Unknown History injection, auto-injector (EpiPen 2-Jesse) Disability Placard #1 ea 01/30/24 Unknown Rx fluticasone 500 mcg-salmeterol 50 1 inh inhalation BID respiratory 02/16/24 02/27/24 Rx mcg/dose blistr powdr for #3 ea inhalation (Advair Diskus) tiotropium bromide 2.5 2 inh inhalation DAILY copd 03/15/24 Unknown History mcg/actuation mist for inhalation (Spiriva Respimat) metoprolol tartrate 25 mg tablet 25 mg PO BID #60 tabs 04/10/24 Unknown Rx albuterol sulfate 90 mcg/actuation 2 puff inhalation Q4H PRN SOB 05/14/24 Unknown History aerosol inhaler melatonin 3 mg tablet 3 mg PO HS PRN sleep 05/14/24 Unknown History prednisone 20 mg tablet 20 mg PO QDAY #30 tabs 05/24/24 Unknown Rx Allergy/AdvReac Type Severity Reaction Status Date / Time amlodipine (From Norvasc) Allergy Swelling Verified 05/31/24 08:37 lisinopril Allergy Pain in Verified 05/31/24 08:37 joints tamsulosin Allergy Other Verified 05/31/24 08:37 tolterodine (From Detrol) Allergy Other Verified 05/31/24 08:37 Family History Mother Arthritis Father Diabetes Heart disease Hypertension Surgical History Hx of vasectomy Hx of colonoscopy Hx of appendectomy Social History household members: spouse and children housing: house current occupational status: employed Smoking Status: Light Smoker (<10/day) second hand exposure: Yes alcohol intake: current alcohol intake frequency: 3 or more drinks per day Alcohol type: beer substance use type: does not use caffeine: Yes what type of physical activity do you participate in: none frequency: does not exercise Vital Signs Vital Signs Vital Signs: 07/10/24 01:08 07/10/24 01:11 07/10/24 01:11 Temperature 98.2 F 98.2 F Temperature Source Oral Oral Pulse Rate 104 H 100 Respiratory Rate 22 H 22 H Respiratory Effort Short of Breath Accessory Muscle Use Pursed Lip Respiratory Depth Deep Respiratory Pattern Tachypnea Blood Pressure 144/82 H 144/82 H Blood Pressure Mean 102 102 Pulse Ox 97 96 Oxygen Delivery Method Room Air Room Air Room Air Oxygen Flow Rate (L/min) 07/10/24 01:41 07/10/24 02:08 07/10/24 02:11 Temperature 98.1 F Temperature Source Oral Pulse Rate 93 109 H 101 H Respiratory Rate 22 H 19 H 17 Respiratory Effort Respiratory Depth Respiratory Pattern Tachypnea Blood Pressure 156/83 H 156/83 H Blood Pressure Mean 107 107 Pulse Ox 95 95 Oxygen Delivery Method Room Air Oxygen Flow Rate (L/min) 07/10/24 02:13 07/10/24 03:00 Temperature 98.7 F Temperature Source Oral Pulse Rate 105 H Respiratory Rate 17 Respiratory Effort Respiratory Depth Respiratory Pattern Blood Pressure 138/83 H Blood Pressure Mean 101 Pulse Ox 96 96 Oxygen Delivery Method Nasal Cannula Nasal Cannula Oxygen Flow Rate (L/min) 2 2 Weight Weight: 135 lb 6.4 oz Body Mass Index (BMI) 19.4 Physical Exam Const alert and oriented x3 HEENT normocephalic Eyes PERRL Neck no lymphadenopathy Resp Resp Narrative: Barrel chest, increased respiratory effort, bilateral rhonchi present, tachypnea Cardio regular rate and regular rhythm GI normal to inspection, nondistended, normoactive bowel sounds Extremity Extremity Narrative: Bilateral pedal edema present Neuro oriented x3, CN's II-XII intact bilaterally, moves all extremities and no focal motor deficits Results Medical Records Data Attestation: I reviewed the patient's medical records Lab / Micro Data Attestation: I reviewed the patient's lab results. 07/10/24 01:47 07/10/24 01:47 Labs: Laboratory Results - last 24 hr 07/10/24 01:47: WBC 12.4 H, RBC 4.10 L, Hgb 11.9 L, Hct 36.0 L, MCV 87.8, MCH 29.0, MCHC 33.1, RDW Std Deviation 43.9, RDW Coeff of Pam 13.7, Plt Count 476 H, MPV 8.3, Immature Gran % (Auto) 0.400, Neut % (Auto) 67.4, Lymph % (Auto) 18.9 L, [place] % (Auto) 9.0, Eos % (Auto) 3.3, Baso % (Auto) 1.0, Absolute Neuts (auto) 8.4 H, Absolute Lymphs (auto) 2.34, Nucleated RBC % 0, Sodium 129 L, Potassium 4.0, Chloride 90 L, Carbon Dioxide 26.0, Anion Gap 13, BUN 15, Creatinine 0.62 L, Estim Creat Clear Calc 107.31, Est GFR (MDRD) Non-Af 108, BUN/Creatinine Ratio 23.8 H, Glucose 85, Calcium 9.3, Magnesium 2.0, NT pro BNP II 258 Imaging Radiology Impression Chest X-Ray 07/10/24 02:20 IMPRESSION: No evidence of acute disease. Reading Location: [facility] Assessment & Plan Assessment/Plan (1) Acute exacerbation of chronic obstructive pulmonary disease: PLAN: Plan 63-year-old man with history of COPD, prior lung abscess, SVT, chronic alcohol use chronic smoking presents to ED with concerns regarding shortness of breath. He has increased respiratory rate and a bilateral wheezes and could be a possible AECOPD, however does not qualify for antibiotic therapy at this time. Will continue steroids and monitoring overnight to assess for response. #Shortness of breath - Likely has a component of reactive airway disease along with chronic bronchitis - Continue albuterol ventilation for now and methylprednisone with taper - No need for antibiotics at this time - Admit for observation to [facility] #COPD with history of lung abscess - Chronic bronchitis with mixed simple and mucopurulent - Last FEV1 was 25% and maintained on triple therapy with Advair and Spiriva - Follows with outpatient pulmonology - Previously had lung abscess that has resolved with Vanco and Zosyn for 4 weeks followed by pRegan Roach Flagyl for months #Hyponatremia - Sodium on admission is 129 - Will evaluate LFTs and also serum albumin levels - He is volume overloaded right now also continues to drink alcohol and smoke #SVT - Spontaneously converted to sinus rhythm - Follows up with cardiology - Continue metoprolol #Hypertension - Continue losartan #Alcohol abuse - Continue to drink 3-4 beers at this time #Nicotine abuse - Smokes 4 to 5 cigarettes daily #History of vasectomy, colonoscopy, appendectomy, colon polyps - Stable at this time #DVT prophylaxis - Low low risk at this time - Encourage mobilization
[2024-07-10] MEDS: HYDROmorphone 0.5 MG/0.5 ML SYRINGE IV (04:09)
[2024-07-10] MEDS: 0.9% Saline Lock 10 ML Syringe IV ×2 (05:03→13:26)
[2024-07-10 06:07] LABS: Absolute Lymphocyte Count 0.54 X10^3/uL (0.83-4.51); Absolute Neutrophil Count 9.8 X10^3/uL (2.0-7.7); Basophil# 0.07 X10^3/uL; Basophil% 0.7 % (0-1); Eosinophil# 0.03 X10^3/uL; Eosinophils% 0.3 % (0-5); Hematocrit 33.2 % (40-54); Hemoglobin 11.1 g/dL (13.0-16.5); Lymphocyte # 0.54 X10^3/ul (0.83-4.51); Lymphocyte % 5.1 % (19-41); Mean Corp Hgb Conc 33.4 g/dL (32-36); Mean Corpuscular Hgb 29.3 pg (27.0-32.0); Mean Corpuscular Volume 87.6 fL (80-94); Mean Platelet Vol. 8.5 fl (6.2-12.0); Monocyte% 0.9 % (0-10); NRBC Flagged by Analyzer 0 % (0-5); Neutrophil % 92.6 % (47-70); POSITIVE DIFFERENTIAL YES; Platelet Count 459 K/mm3 (150-450); RBC Distribution Width CV 13.6 % (11.6-14.6); RBC Distribution Width SD 44.3 fl (35.1-43.9); Red Blood Count 3.79 M/mm3 (4.6-6.2); White Blood Count 10.6 K/mm3 (4.4-11.0)
[2024-07-10 06:40] LABS: ALB/GLOB Ratio 1.4 RATIO (0.9-2.4); AST(SGOT) 21 U/L (<=37); Alanine Aminotransfer ALT/SGPT 10 U/L (<=46); Albumin, Serum 3.9 g/dL (3.4-4.8); Alkaline Phosphatase 83 U/L (40-129); Anion Gap 12 (5-15); BUN 15 mg/dL (4-19); BUN/Creat Ratio 19.9 RATIO (10-20); Calcium,Total 8.9 mg/dL (7.6-11.0); Carbon Dioxide 25.8 mmol/L (21.0-32.0); Chloride 92 mmol/L (98-108); Creatinine, Serum 0.74 mg/dL (0.70-1.20); EST Glomerular Filtration Rate 103 (>60); Estimated Creatinine Clearance 84.91 ml/min (50-250); Globulin 2.8 g/dL (2.2-4.2); Glucose 150 mg/dL (70-99); Protein, Total 6.7 g/dL (5.9-8.4); Sodium Level 130 mmol/L (133-145); Total Bilirubin 0.18 mg/dL (0.00-1.30)
[2024-07-10 06:46] LABS: International Normalized Ratio 0.9; Prothrombin Time (Protime)PT. 12.4 SECONDS (11.7-14.9)
--- NOTE | 2024-07-10 09:47 | CASEMGMT ---
WHIT CM into pt room, pt sitting up in bed visibly upset. Pt states he wants to go home and was told that he will not dc until tomorrow. Pt reports he is typically indep at home. He lives with his and 2 dtrs. Pt has oxygen through [employer] and wears 2L at HS only. He states he has portable tanks and his can bring in upon dc. Pt also has a pox and nebulizer. Pt has had [facility] in the past, he denies need for HHC currently. Pt denies SNF stays. Pt denies any homegoing needs at this time. Green sheet on chart should pt require increased oxygen rx.
[2024-07-10] MEDS: Metoprolol Tartrate 25 MG Tablet PO (10:19)
[2024-07-10] MEDS: Acetaminophen 325 MG Tablet 650 MG PO (11:33)
--- NOTE | 2024-07-10 12:12 | PCM.PROGNOTE ---
Subjective Subjective Patient seen and examined. He admits to some shortness of breath. He is also wheezing. HE denies any chest pain, palpitations, dizziness, nausea, vomiting or any other symptoms. Review of systems is otherwise negative. Objective Data Objective Data Vital Signs: Vital Signs Temp Pulse Resp BP Pulse Ox O2 Del Method O2 Flow Rate 98.0 F 98 24 H 119/77 96 Nasal Cannula 2 07/10/24 07:46 07/10/24 11:01 07/10/24 11:01 07/10/24 07:46 07/10/24 07:46 07/10/24 10:22 07/10/24 10:22 Oxygen Flow Rate (L/min) 2 Oxygen Delivery Method Nasal Cannula Weight: 127 lb 13.89 oz Body Mass Index (BMI) 20.0 Intake & Output: Intake and Output for Last 24 Hours 07/08/24 07/09/24 07/10/24 23:59 23:59 23:59 Intake Total 200 / 200 Balance 200 / 200 Lab / Micro Data 07/10/24 05:18 07/10/24 05:18 Labs: Laboratory Results - last 24 hr 07/10/24 01:47: WBC 12.4 H, RBC 4.10 L, Hgb 11.9 L, Hct 36.0 L, MCV 87.8, MCH 29.0, MCHC 33.1, RDW Std Deviation 43.9, RDW Coeff of Pam 13.7, Plt Count 476 H, MPV 8.3, Immature Gran % (Auto) 0.400, Neut % (Auto) 67.4, Lymph % (Auto) 18.9 L, [place] % (Auto) 9.0, Eos % (Auto) 3.3, Baso % (Auto) 1.0, Absolute Neuts (auto) 8.4 H, Absolute Lymphs (auto) 2.34, Nucleated RBC % 0, Sodium 129 L, Potassium 4.0, Chloride 90 L, Carbon Dioxide 26.0, Anion Gap 13, BUN 15, Creatinine 0.62 L, Estim Creat Clear Calc 107.31, Est GFR (MDRD) Non-Af 108, BUN/Creatinine Ratio 23.8 H, Glucose 85, Calcium 9.3, Magnesium 2.0, NT pro BNP II 258 07/10/24 05:18: WBC 10.6, RBC 3.79 L, Hgb 11.1 L, Hct 33.2 L, MCV 87.6, MCH 29.3, MCHC 33.4, RDW Std Deviation 44.3 H, RDW Coeff of Pam 13.6, Plt Count 459 H, MPV 8.5, Immature Gran % (Auto) 0.400, Neut % (Auto) 92.6 H, Lymph % (Auto) 5.1 L, [place] % (Auto) 0.9, Eos % (Auto) 0.3, Baso % (Auto) 0.7, Absolute Neuts (auto) 9.8 H, Absolute Lymphs (auto) 0.54 L, Nucleated RBC % 0, PT 12.4, INR 0.9, Sodium 130 L, Potassium 4.0, Chloride 92 L, Carbon Dioxide 25.8, Anion Gap 12, BUN 15, Creatinine 0.74, Estim Creat Clear Calc 84.91, Est GFR (MDRD) Non-Af 103, BUN/Creatinine Ratio 19.9, Glucose 150 H, Calcium 8.9, Phosphorus 4.0, Magnesium 2.0, Total Bilirubin 0.18, Direct Bilirubin 0.10, AST 21, ALT 10, Alkaline Phosphatase 83, Total Protein 6.7, Albumin 3.9, Globulin 2.8, Albumin/Globulin Ratio 1.4, TSH 0.910 Micro: Microbiology 07/10/24 04:56 Mucosa - Nasopharyngeal Respiratory Panel (PCR) - Final Radiography Diagnostic Testing: Radiology Impression Chest X-Ray 07/10/24 02:20 IMPRESSION: No evidence of acute disease. Reading Location: [facility] Physical Exam Const alert, oriented x3 and no apparent distress General Appearance: cooperative and well developed HEENT normocephalic, head/scalp atraumatic, moist oral mucous membranes and oropharynx normal Eyes PERRL and EOMs intact bilaterally Neck no lymphadenopathy and supple Lymph Lymphatic: no lymphadenopathy noted and no lymphedema noted Resp Resp Narrative: mildly diminished breath sounds bibasally, mild wheezes, no crackles. On 2L of oxygen by nasal canula. Cardio regular rate, regular rhythm, S1 normal heart sound, S2 normal heart sound and no murmurs GI normal to inspection, nondistended, normoactive bowel sounds, soft to palpation, non-tender and non-distended Extremity normal capillary refill, no clubbing, cyanosis or edema and no calf tenderness General Extremity: no tenderness to palpation of joints or extremities Skin General Skin Exam: no breakdown Neuro CN's II-XII intact bilaterally, no focal motor deficits and no sensory deficits noted Motor Exam: general weakness Psych thought process normal and cooperative Appearance: appropriate Assessment & Plan Assessment/Plan (1) Acute exacerbation of chronic obstructive pulmonary disease: PLAN: Plan #Hypoxia due ot acute COPD exacerbation Currently on 2 L of oxygen. States usually wears 2 L at night at home. Breathing treatments with bronchodilators and IV Solu-Medrol. States he continues to smoke and smokes half a pack a day. Titrate oxygen to maintain saturation above 90%. #History of lung abscess Completed course of antibiotics. Stable. #Hyponatremia: Sodium was 129 on admission and is up to 130 today. He does have a history of chronic intermittent hyponatremia. #History of SVT: Now in normal sinus rhythm. Follows up with cardiology on outpatient basis. On metoprolol. #Hypertension: On metoprolol and losartan #History of alcohol use disorder: Drinks 3-4 beers daily. Not currently having any risk of withdrawal. Will monitor for withdrawal #Nicotine dependence: Smokes about half a pack a day. Counseled to quit. Nicotine patch daily as needed. DVT prophylaxis: Low risk. Encourage ambulation. Will place on SCDs. Charges/Coding Visit Charges Inpatient E&M: 71751 Subs Hosp L2
--- NOTE | 2024-07-10 16:16 | NURSING ---
Pt was frustrated about his treatment. He stated, It doesn't feel like you guys are doing anything for me. This RN explained to the pt about benefits of finishing course of IV steroids. Pt requested that we reach out to Dr. Alvarenga asking if she would discharge him. This RN reached out to Dr. Alvarenga and informed her that pt wants to leave and whether discharge was an option or AMA? Dr. Alvarenga called this RN and stated that if the patient wanted to leave he would have to leave AMA. This RN reported this to the patient and he stated he would like some time to think about it. The pt then informed this RN that he would like to leave AMA. This RN had the pt sign a copy of the AMA form and then gave the patient his own signed copy. This RN then informed Dr. Alvarenga that pt did leave AMA.
--- NOTE | 2024-07-11 12:33 | DS.PCM_ITS ---
Providers Date of Admission: 07/10/24 Date of Discharge: 07/10/24 Primary Care Physician: Dr. Alfonso Fortune MD Reason For Visit: COPD Diagnosis Discharge Diagnosis (1) Acute exacerbation of chronic obstructive pulmonary disease: Status: Chronic Code(s): J44.1 - Chronic obstructive pulmonary disease with (acute) exacerbation Plan #Hypoxia due ot acute COPD exacerbation * Currently on 2 L of oxygen. States usually wears 2 L at night at home. Breathing treatments with bronchodilators and IV Solu-Medrol. * States he continues to smoke and smokes half a pack a day. * Titrate oxygen to maintain saturation above 90%. #History of lung abscess * Completed course of antibiotics. Stable. * #Hyponatremia: * Sodium was 129 on admission and is up to 130 today. * He does have a history of chronic intermittent hyponatremia. #History of SVT: Now in normal sinus rhythm. Follows up with cardiology on outpatient basis. On metoprolol. #Hypertension: On metoprolol and losartan #History of alcohol use disorder: Drinks 3-4 beers daily. Not currently having any risk of withdrawal. Will monitor for withdrawal #Nicotine dependence: Smokes about half a pack a day. Counseled to quit. Nicotine patch daily as needed. DVT prophylaxis: Low risk. Encourage ambulation. Will place on SCDs. Medications at Discharge Home Medications epinephrine 0.3 mg/0.3 mL injection, auto-injector (EpiPen 2-Jesse) 0.3 mg IM ONCE PRN anaphylaxis 07/07/23 Disability Placard #1 ea 01/30/24 fluticasone 500 mcg-salmeterol 50 mcg/dose blistr powdr for inhalation (Advair Diskus) 1 inh inhalation BID respiratory #3 ea 02/16/24 tiotropium bromide 2.5 mcg/actuation mist for inhalation (Spiriva Respimat) 2 inh inhalation DAILY copd 03/15/24 metoprolol tartrate 25 mg tablet 25 mg PO BID #60 tabs 04/10/24 albuterol sulfate 90 mcg/actuation aerosol inhaler 2 puff inhalation Q4H PRN SOB 05/14/24 melatonin 3 mg tablet 3 mg PO HS PRN sleep 05/14/24 prednisone 20 mg tablet 20 mg PO QDAY #30 tabs 05/24/24 Hospital Course Operations None Procedures None Summary of Care Provided Minutes Spent on Discharge: 38 Hospital Course: Patient is a 63 y/o male with a PMH as outlined who was admitted via the ED ON 07/10/2024 with a complaint of shortness of breath for one day prior to admission. He had a history of chronic respiratory failure due to COPD and was on 2 L of oxygen at night and also continues to smoke about half a pack daily. He also drank 3-4 beers daily. On admission he was initially 9 7% on room air but required 2 L of oxygen. proBNP was 258. He was admitted to be managed for hypoxia due to probable COPD exacerbation. He was started on IV Solu-Medrol and breathing treatments bronchodilators. Patient did start to feel better though he still had some wheezing and was still requiring oxygen during the day which was unlike how he was at home. Patient was counseled to stay in the hospital for at least 1 more day to be better optimized but refused and ended up signing out AGAINST MEDICAL ADVICE on 07/10/2024. Patient was seen on the morning of 07/10/2024. As stated he wanted to be discharged then but was counseled that it would be better for him to stay in the hospital. He still complained of shortness of breath with wheezing. Review of systems otherwise negative. Labs and vitals reviewed. Patient was counseled to stay at least 1 more day for further optimization as stated above but he decided to sign out AGAINST MEDICAL ADVICE later in the day. Physical Exam Const alert, oriented x3 and no apparent distress General Appearance: cooperative, comfortable and well developed Orientation / Consciousness: awake HEENT normocephalic, head/scalp atraumatic, hearing grossly normal bilaterally, moist oral mucous membranes and oropharynx normal Mouth: oral and palatal mucosa normal Eyes PERRL and EOMs intact bilaterally Neck no lymphadenopathy and supple Lymph Lymphatic: no lymphadenopathy noted and no lymphedema noted Resp Resp Narrative: mildly diminished breath sounds bibasally, mild wheezes, no crackles. On 2L of oxygen by nasal canula. Cardio regular rate, regular rhythm, S1 normal heart sound, S2 normal heart sound and no murmurs GI normal to inspection, nondistended, normoactive bowel sounds, soft to palpation, non-tender and non-distended Extremity normal capillary refill, no clubbing, cyanosis or edema and no calf tenderness Extremity Narrative: Bilateral pedal edema present General Extremity: no tenderness to palpation of joints or extremities Skin no rashes or lesions noted General Skin Exam: no breakdown Neuro oriented x3, CN's II-XII intact bilaterally, moves all extremities, no focal motor deficits and no sensory deficits noted Motor Exam: general weakness Psych thought process normal and cooperative Appearance: appropriate Weight / BMI Weight Weight: 127 lb 13.89 oz Body Mass Index (BMI) 20.0 ABG / Lab / Microbiology Data 07/10/24 05:18 07/10/24 05:18 Microbiology: Microbiology 07/10/24 04:56 Mucosa - Nasopharyngeal Respiratory Panel (PCR) - Final D/C Instructions Discharge Diet: Low fat / Low cholesterol Discharge Activity: Return to Normal Activity Weight Bearing Status: Weight bearing as tolerated Call your doctor if you observe: Fever of 101 or Higher, Shortness of breath, Dizziness, Swelling in the ankles and Chest pain DC O2, CPAP, BIPAP Needs Home O2 Discharge instructions: Yes Type of respiratory needs?: Oxygen (2) Oxygen frequency: With Sleeping Oxygen liters per minute when sleepin DC home with Oxygen: Yes Home O2 MD Review: I have reviewed the oxygen testing, and the patient qualifies for home oxygen equipment and portability. The patient is mobile in the home and the community. Meaningful Use Info Meaningful Use Meaningful Use Diagnoses (Choose all that apply): None applicable Ischemic Stroke Statin Dosing Therapy Reference: STATIN DOSE THERAPY REFERENCE: * Patients > 75 years receive moderate or high dose statin therapy. * Patients 75 years or YOUNGER should receive HIGH intensity statin dose unless contraindicated. You will be required to document reason for non-treatment if statin daily dose does not meet guidelines. HIGH DOSE STATIN THERAPY DAILY Atorvastatin > than or = to 40 mg Rosuvastatin > than or = to 20 mg Amlodipine + Atorvastatin > than or = to 2.5/40 mg Ezetimibe + Simvastatin 10/80 mg Simvastatin 80mg Discharge Plan Admission Admit Date/Time: 07/10/24 04:07 Primary Reason for Your Visit: COPD exacerbation Attending Provider: Liz Alvarenga Primary Care Provider: Alfonso Fortune Consulting Providers: Jonah Aguilar Instructions Patient Instructions: COPD Controlled Breathing Dc Discharge Orders/Prescriptions Prescriptions: No Action (DME) Disability Placard See Rx Instructions .ROUTE .MEDSUPPLY Qty: 1 0RF Rx Instructions: expires 01/29/2029 epinephrine [EpiPen 2-Jesse] 0.3 mg/0.3 mL auto-injector 0.3 mg IM ONCE PRN (Reason: anaphylaxis) Rx Instructions: as a single dose; may repeat once prednisone 20 mg tablet 20 mg PO QDAY Qty: 30 1RF albuterol sulfate 90 mcg/actuation HFA aerosol inhaler 2 puff INHALATION Q4H PRN (Reason: SOB) melatonin 3 mg tablet 3 mg PO HS PRN (Reason: sleep) Spiriva Respimat 2.5 mcg/actuation mist 2 inh inhalation DAILY Rx Instructions: administer at approximately the same time(s) each day metoprolol tartrate 25 mg Tablet 25 mg PO BID Qty: 60 0RF fluticasone propion-salmeterol [Advair Diskus] 500-50 mcg/dose blister with device 1 inh inhalation BID Qty: 3 3RF Referrals / Follow Up: Alfonso Fortune MD [Primary Care Provider] - Within 1 Week Disposition Disposition (needs filled in before D/C Order can be placed): Against Medical Advice Charges/Coding Visit Charges Inpatient E&M: 52683 Disch Hosp >30min
== END 2024-07-10 16:13 | disposition left against medical advice (07) ==
LOC: ED 03:32 → MS3 04:22
PROVIDERS: Admitting Provider Internal Medicine; Emergency Provider Emergency Medicine; PCP Family Medicine; Visit Provider Student in an Organized Health Care Education/Training Program
DX: J44.1 Chronic obstructive pulmonary disease with (acute) exacerbation (principal); F10.10 Alcohol abuse, uncomplicated; Z79.52 Long term (current) use of systemic steroids; Z53.29 Procedure and treatment not carried out because of patient's decision for other reasons; E87.1 Hypo-osmolality and hyponatremia; Z79.51 Long term (current) use of inhaled steroids; I10 Essential (primary) hypertension; Z82.49 Family history of ischemic heart disease and other diseases of the circulatory system; F17.210 Nicotine dependence, cigarettes, uncomplicated; Z99.81 Dependence on supplemental oxygen; Z79.899 Other long term (current) drug therapy; I47.10 Supraventricular tachycardia, unspecified; R63.6 Underweight; Z68.1 Body mass index [BMI] 19.9 or less, adult
CPT/HCPCS: 36415; 71046; 80048; 80053; 82248; 83735; 83880; 84100; 84443; 85025; 85610; 87633; 93005; 94640; 94667; 94668; 96374; 96375; 96376; 97802; 99221; 99252; 99284; A4216; G0378; G0463; J2405

== ENCOUNTER 2024-08-10 14:00 | Outpatient (RCR) | payer OTHER, SELFPAY ==
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
--- NOTE | 2024-08-10 14:28 | HP.PTDCSUM_ITS ---
Discharge Summary D/C summary: It has been my pleasure to treat LAUREL OTERO referred by Dr. Alfonso Fortune MD, with the diagnosis of Chronic vertebral Fx, Debility for a total of 9 visit(s). Discharge Date: Please see the following information for a summary of their discharge status. Subjective Subjective: Pt reports he feels much better now. Much more stable on his feet. Pain Mid thoracic spine: Pain Intensity (Out of 10): 3 Overall Improvement % Improvement: 75 Objective Objective/Function: T/S pain 3/10 6 min walk test- Pt was able to ambulate for 5 min until needing to rest B UE and LE strength is 4+/5 to 5/5 throughout TU sec Goals Goal 1:: Pt will perform the TUG test in under 10 seconds Goal Progress: Goal Met Goal 2:: Pt will be able to finish the 6 minute walk test with no rest breaks. Goal Progress: Progressing Goal 3:: Increase B UE and LE strength x 1 grade to aid with IADL's Goal Progress: Goal Met Goal 4:: I with HEP Goal Progress: Goal Met Plan Plan: [facility]charge to [facility] D/C Information d/c sentence: If there are questions or concerns regarding this patient's physical therapy, please feel free to call me at [phone]. Thank you for the referral of this patient. Sincerely, Mitchell Lezmaa, PT, ATC Balance/Gait/Functional tests Balance/Special Test Scores Oswestry Low Back Score: 16 Improvement % Improvement: 75
== END 2024-08-10 19:00 | disposition home or self-care (01) ==
LOC: PT 14:00
PROVIDERS: PCP Family Medicine; Referring Provider Family Medicine; Visit Provider Family Medicine
DX: R53.81 Other malaise (principal)
CPT/HCPCS: 97014; 97110; 97140; 97161; 97530; G0283

== ENCOUNTER → 2024-08-23 | Outpatient (CLI) | payer OTHER, SELFPAY ==
[2024-08-23 17:05] LABS: Platelet Count 494 K/mm3 (150-450); RET-HE 32.3 pg (30-35); Reticulocyte Count 1.33 % (0.5-1.5)
[2024-08-23 17:15] LABS: Prothrombin Time (Protime)PT. 12.9 SECONDS (11.7-14.9)
[2024-08-23 17:49] LABS: ALB/GLOB Ratio 1.5 RATIO (0.9-2.4); AST(SGOT) 27 U/L (<=37); Alanine Aminotransfer ALT/SGPT 19 U/L (<=46); Albumin, Serum 4.1 g/dL (3.4-4.8); Alkaline Phosphatase 84 U/L (40-129); Anion Gap 11 (5-15); BUN 9 mg/dL (4-19); BUN/Creat Ratio 11.7 RATIO (10-20); Calcium,Total 9.3 mg/dL (7.6-11.0); Carbon Dioxide 28.9 mmol/L (21.0-32.0); Chloride 88 mmol/L (98-108); EST Glomerular Filtration Rate 100 (>60); Ferritin 51 ng/mL (37-417); Globulin 2.8 g/dL (2.2-4.2); Glucose 91 mg/dL (70-99); Potassium 4.2 mmol/L (3.3-5.1); Sodium Level 128 mmol/L (133-145); Thyroid Stim Hormone (TSH) 0.676 uIU/mL (0.300-4.200); Total Bilirubin 0.43 mg/dL (0.00-1.30)
[2024-08-23 18:06] LABS: Iron 52 ug/dL (65-175); LDH 178 U/L (87-241)
== END | disposition home or self-care (01) ==
LOC: LAB 16:06
PROVIDERS: PCP Family Medicine; Referring Provider Internal Medicine Gastroenterology; Visit Provider Internal Medicine Gastroenterology
DX: D64.9 Anemia, unspecified (principal)
CPT/HCPCS: 36415; 80053; 82652; 82728; 82784; 83010; 83516; 83540; 83615; 84165; 84443; 85045; 85610; 86140; 86255; 86334

== ENCOUNTER 2024-10-12 20:26 | Emergency (ER) | payer OTHER, SELFPAY ==
[2024-10-12 20:27] VITALS: BP 148/95; PULSE 91; RESP 20; TEMP 36.9; O2SAT 97; BMI 20.4
--- NOTE | 2024-10-12 21:02 | EKG12_ITS ---
Test Reason : DYSRHYTHMIA Blood Pressure : */* mmHG Vent. Rate : 94 BPM Atrial Rate : 94 BPM P-R Int : 210 ms QRS Dur : 96 ms QT Int : 332 ms P-R-T Axes : 84 -56 84 degrees QTcB Int : 415 ms Sinus rhythm with 1st degree A-V block Possible Left atrial enlargement Left axis deviation Septal infarct (cited on or before 20-Jun-2020) Abnormal ECG Confirmed by TERESA ACEVES, KEISHA ([id number]), news copy editor DIANNA [place] ([id number]) on 10/13/2024 9:40:23 AM Referred By: HOANG Confirmed By: KEISHA MOORE MD
--- NOTE | 2024-10-12 21:02 | CT_ITS ---
PROCEDURE: CTA CHST, ABD, PEL W AND/OR WO 10/12/2024 REASON FOR EXAM: BACK PAIN, CHEST PAIN, DISSECTION STUDY TECHNIQUE: CT angiography of the chest, abdomen and pelvis with intravenous contrast. Coronal and Sagittal reconstruction series were provided. 3D vessel post processing was performed. One or more dose reduction techniques were used (e.g., Automated exposure control, adjustment of the mA and/or kV according to patient size, use of iterative reconstruction technique. CONTRAST: Isovue 370 VOLUME: 98 mL RADIATION DOSE SUMMARY: DLP: 452.67 mGycm COMPARISON: CTA chest 04/09/2024. CT chest 05/27/2024. FINDINGS: VASCULATURE: Normal course and caliber of the aorta. No aneurysm or dissection. Mild-moderate atherosclerotic disease. Common origins of the left common carotid and right innominate artery from the aortic arch. Major branches of the celiac axis, SMA, ASHLYN, bilateral renal and iliac arteries are patent, normal in course and caliber. Duplicated left renal artery noted. No pulmonary arterial emboli identified. HEART: Normal in size. No pericardial effusion. Mild-moderate coronary artery calcifications. MEDIASTINUM: Unremarkable. No mass or lymphadenopathy. LUNGS/PLEURA: Stable focal spiculated linear scarring in the left upper lobe, in the location of previous cavitation/abscess, with further tissue retraction. No airspace consolidation or findings of pulmonary edema. No pneumothorax or pleural effusions. Mild upper lobe predominant centrilobular emphysema. Probable small tracheal tracheocele at the dorsal right aspect of the upper trachea. HEPATOBILIARY: No significant abnormality, given early arterial phase timing of IV contrast. No biliary ductal dilatation. Subcentimeter flash filling hemangioma in the anterior left hepatic lobe. GENITOURINARY: No significant abnormality, given early arterial phase timing of IV contrast. No urolithiasis or hydronephrosis. Mildly enlarged prostate with bladder wall thickening likely reflecting hypertrophy. No pericystic inflammatory changes. GI TRACT: No evidence of obstruction or discrete active inflammatory process. Appendix not identified with certainty but there are no pericecal inflammatory changes. Extensive distal colonic diverticulosis without evidence of active diverticulitis/colitis. PERITONEUM/RETROPERITONEUM: No ascites or free air. No lymphadenopathy. MUSCULOSKELETAL: No acute or aggressive osseous abnormality. Moderate multilevel degenerative changes of the spine, with several chronic compression fracture deformities, stable. CT/CTA Chst, Abd, Pel W and/or WO IMPRESSION: 1. No acute findings within the chest, abdomen or pelvis. 2. No aortic aneurysm or dissection. Mild-moderate atherosclerotic disease. 3. Chronic/degenerative ancillary findings, as described above. Reading Location: [id number]
[2024-10-12 21:12] VITALS: PULSE 95; RESP 18
[2024-10-12] MEDS: 0.9% Normal Saline (500mL Bag) 500 ML 999 ML IV (21:15)
[2024-10-12 21:23] LABS: Hematocrit 40.8 % (40-54); Hemoglobin 13.8 g/dL (13.0-16.5); Immature Granulocytes Count 0.040 X10^3/uL (0.0-0.0); Mean Corp Hgb Conc 33.8 g/dL (32-36); Mean Corpuscular Volume 85.0 fL (80-94); Mean Platelet Vol. 8.3 fl (6.2-12.0); NRBC Flagged by Analyzer 0 % (0-5); Platelet Count 396 K/mm3 (150-450); RBC Distribution Width CV 12.5 % (11.6-14.6); RBC Distribution Width SD 38.8 fl (35.1-43.9); Red Blood Count 4.80 M/mm3 (4.6-6.2); White Blood Count 9.9 K/mm3 (4.4-11.0)
[2024-10-12 21:26] VITALS: BP 117/82; PULSE 90; O2SAT 92
--- NOTE | 2024-10-12 21:46 | EDS_ITS ---
HPI History of Present Illness Chief Complaint: Palpitations Informant: patient Narrative Narrative: Patient is a 64-year-old male with history of COPD, tobacco abuse, chronic pain (takes tramadol for it) as well as hypertension presenting with back pain and palpitations. Patient states he was feeling fine earlier today. He saw his primary care doctor today and everything was fine. Afterwards he ate a cheeseburger and then took a nap for about 30 minutes. 30 minutes to an hour after the nap he was walking there was gradual onset he had a severe stabbing pain in his mid thoracic back. He had to sit down. He checked his O2 saturation and the monitor told him his heart rate was going between 155-160. He states he has chronic back pain but this feels different. He notes he does normally take tramadol but does not have any today. He is not really have a reason for this. He called EMS because of his elevated heart rate and pain and they brought him in. Patient was tachycardic for them but then converted spontaneously. Patient does have a history of SVT 1 time in the spring. He denies any recent swelling of his legs. Is on any blood thinners. He not taking his breathing treatments today but does feel he needs a breathing treatment right now is having chest tightness/shortness of breath. He denies any chest pain, abdominal pain or nausea or vomiting. No other complaints or concerns reported at this time. [facility] Medical History Acute exacerbation of chronic obstructive pulmonary disease COPD (chronic obstructive pulmonary disease) (~06/07/24) SVT (supraventricular tachycardia) Chronic hyponatremia Colonic mass Tobacco dependence Stercoral colitis Smoking greater than 40 pack years Smoker On home oxygen therapy IBS (irritable bowel syndrome) Hx of colonic polyp Alcohol abuse Hemorrhoids COPD (chronic obstructive pulmonary disease) Hypertension Arthritis Home Medications ?Medication ?Instructions ?Recorded ?Last Taken ?Type epinephrine 0.3 mg/0.3 mL 0.3 mg IM ONCE PRN anaphylax is 07/07/23 Unknown History injection, auto-injector (EpiPen 2-Jesse) Disability Placard #1 ea 01/30/24 Unknown Rx fluticasone 500 mcg-salmeterol 50 1 inh inhalation BID respiratory 02/16/24 02/27/24 Rx mcg/dose blistr powdr for #3 ea inhalation (Advair Diskus) metoprolol tartrate 25 mg tablet 25 mg PO BID #60 tabs 04/10/24 Unknown Rx albuterol sulfate 90 mcg/actuation 2 puff inhalation Q 4H PRN SOB 05/14/24 Unkn own History aerosol inhaler melatonin 3 mg tablet 3 mg PO HS PRN sleep 5 Unknown History tiotropium bromide 2.5 2 inh inhalation DAILY copd #3 ea 07/13/24 Unknown Rx mcg/actuation mist for inhalation (Spiriva Respimat) tramadol 50 mg tablet 50 mg PO QDAY PRN pain 08/31 Unknown History Allergy/AdvReac Type Severity Reaction Status Date / Time amlodipine (From Norvasc) Allergy Swelling Verified 10/12/24 20:33 lisinopril Allergy Pain in Verified 10/12/24 20:33 joints tamsulosin Allergy Other Verified 10/12/24 20:33 tolterodine (From Detrol) Allergy Other Verified 10/12/24 20:33 dupilumab (From Dupixent Pen) AdvReac Mild Pain in Verified 10/12/24 20:33 joints Family History Mother Arthritis Father Diabetes Heart disease Hypertension Surgical History Hx of vasectomy Hx of colonoscopy Hx of appendectomy Social History household members: spouse and children housing: house current occupational status: employed Smoking Status: Light Smoker (<10/day) second hand exposure: Yes alcohol intake: current alcohol intake frequency: 3 or more drinks per day Alcohol type: beer substance use type: does not use caffeine: Yes what type of physical activity do you participate in: none frequency: does not exercise ROS ROS ED Constitutional Constitutional ED: Denies chills or fever(s) ENT ENT ED: Denies sore throat Cardiovascular Cardiovascular: Reports chest pain and racing heartbeat Respiratory/Chest Respiratory/Chest: Reports cough and dyspnea; Denies sputum Gastrointestinal Gastrointestinal: Denies abdominal pain, nausea or vomiting Musculoskeletal Musculoskeletal: Reports back pain; Denies arthralgias Integumentary Denies rash Neurologic Neurologic: Denies weakness Hematologic/Lymphatic Hematologic/Lymphatic: Denies easy bleeding or easy bruising EXAM Physical Exam Const Vital Signs: 10/12/24 20:27 10/12/24 20:34 10/12/24 21:12 Temperature 98.4 F Temperature Source Oral Pulse Rate 91 95 Respiratory Rate 20 H 18 Respiratory Effort Normal Non-Labored Respiratory Pattern Normal Blood Pressure 148/95 H Blood Pressure Mean 112 Pulse Ox 97 Oxygen Delivery Method Room Air 10/12/24 21:26 10/12/24 22:00 10/12/24 23:00 Temperature Temperature Source Pulse Rate 90 80 83 Respiratory Rate 16 16 Respiratory Effort Respiratory Pattern Blood Pressure 117/82 H 124/81 H Blood Pressure Mean 93 95 Pulse Ox 92 100 100 Oxygen Delivery Method Room Air Room Air Room Air 10/12/24 23:35 10/13/24 00:00 Temperature Temperature Source Pulse Rate 87 81 Respiratory Rate 16 16 Respiratory Effort Respiratory Pattern Normal Blood Pressure 120/79 Blood Pressure Mean 92 Pulse Ox 100 Oxygen Delivery Method Room Air Positive well nourished and well developed General Appearance ED: well developed and NAD HEENT Reports moist mucous membranes Neck supple and no JVD Chest Wall inspection of chest normal and palpation of chest normal Resp Resp Narrative: Mildly tachypneic. Tight breath sounds with inspiratory and extra wheezing present. Diminished breath sounds at the bases. No chest wall crepitus appreciated. Cardio regular rate, regular rhythm and no murmurs GI normal to inspection, nondistended, normoactive bowel sounds and non-tender Palpation: soft; Negative for tender or guarding Back/Spine Back/Spine Narrative: Tenderness of the thoracic back most pronounced around approximately T5 through 7. No step-off sign. Neuro oriented x3 Sensorium / Orientation: alert Motor Exam: Negative for general weakness Psych mental status grossly normal Skin no rashes or lesions noted and no wounds MDM MDM MDM Narrative Medical decision making narrative: Patient is evaluated for sudden onset of thoracic back pain with associated racing heart. Denies any chest pain. Reportedly was in some sort of tacky arrhythmia however he converted for EMS. I do not have a tracing of this. Differential includes SVT, atrial fibrillation, aortic dissection given sudden onset of severe back pain, pulmonary emboli, pneumothorax and pneumonia. Patient also does have chronic back pains as possible this was exacerbation of his chronic pain. CTA of the chest 7 pelvis is obtained to rule out acute aortic dissection or other acute pathology. Workup is negative for dissection, aneurysm. There is mild to moderate atherosclerotic disease noted. There is emphysematous changes noted. There is moderate multilevel degenerative changes of the spine with several chronic compression fractures which are stable. EMS report reviewed which states that patient did initially have a pulse in the 160s and was noted to convert to normal sinus rhythm on the monitor when they were trying to obtain EKG. Pain improved at that point. Patient is given morphine, DuoNeb and Zofran for his symptoms as well as IV fluids. He feels improved on repeat evaluation with still some wheezing. Given additional DuoNeb. Lab work largely normal except for high sensitive troponin which is elevated 38. Repeat is 45. He is feeling much better at this point. This could be elevated secondary to strain associated with his prior tachyarrhythmia. Will obtain 4-hour high-sensitivity troponin prior to final disposition. Suspect this is normal can be discharged home. Patient is then given his evening tramadol while in the emergency room. My suspicion is patient had a run of SVT or some other tachyarrhythmia that spontaneously resolved this is what caused his presentation today. Lab Data Attestation: I reviewed the patient's lab results. Labs: Laboratory Results - last 24 hr 10/12/24 10/12/24 21:08 23:40 WBC 9.9 RBC 4.80 Hgb 13.8 Hct 40.8 MCV 85.0 MCH 28.8 MCHC 33.8 RDW Std Deviation 38.8 RDW Coeff of Pam 12.5 Plt Count 396 MPV 8.3 Immature Gran % (Auto) 0.400 Neut % (Auto) 63.5 Lymph % (Auto) 19.9 [place] % (Auto) 10.3 H Eos % (Auto) 4.5 Baso % (Auto) 1.4 H Absolute Neuts (auto) 6.3 Absolute Lymphs (auto) 1.96 Nucleated RBC % 0 Sodium 129 L Potassium 4.6 Chloride 92 L Carbon Dioxide 25.7 Anion Gap 12 BUN 12 Creatinine 0.71 Estim Creat Clear Calc 89.17 Est GFR (MDRD) Non-Af 103 BUN/Creatinine Ratio 16.6 Glucose 87 Calcium 9.4 Total Bilirubin 0.25 AST 19 ALT 10 Alkaline Phosphatase 73 Troponin T High Sens 38 H Troponin T Hi Sens 2 Hr 45 H Total Protein 6.5 Albumin 4.0 Globulin 2.5 Albumin/Globulin Ratio 1.6 Lipase 25 Radiography Diagnostic Testing: Clinical Impression(s) from Imaging Studies Chest/Abdomen/Pelvis CTA 10/12/24 21:02 IMPRESSION: 1. No acute findings within the chest, abdomen or pelvis. 2. No aortic aneurysm or dissection. Mild-moderate atherosclerotic disease. 3. Chronic/degenerative ancillary findings, as described above. Reading Location: [facility] Rhythm Strip Rhythm Strip: Sinus Rhythm Rate: 94 Ectopy: None EKG Initial EKG: Attestation: I personally reviewed and interpreted this EKG as follows: Interpretation: Sinus Rhythm Comments: Normal sinus rhythm at a rate of 94 bpm with first AV block [place] interval 210 Left axis deviation Normal intervals Normal ST segments Discharge Plan Triage Chief Complaint: Palpitations ED Provider: Cindy Aguila Dx/Rx/DC Orders Clinical Impression: Acute thoracic back pain, COPD (chronic obstructive pulmonary disease), Palpitations Prescriptions: No Action (DME) Disability Joshuaard See Rx Instructions .ROUTE .MEDSUPPLY Qty: 1 0RF Rx Instructions: expires 01/29/2029 epinephrine [EpiPen 2-Jesse] 0.3 mg/0.3 mL auto-injector 0.3 mg IM ONCE PRN (Reason: anaphylaxis) Rx Instructions: as a single dose; may repeat once albuterol sulfate 90 mcg/actuation HFA aerosol inhaler 2 puff INHALATION Q4H PRN (Reason: SOB) melatonin 3 mg tablet 3 mg PO HS PRN (Reason: sleep) tramadol 50 mg tablet 50 mg PO QDAY PRN (Reason: pain) metoprolol tartrate 25 mg Tablet 25 mg PO BID Qty: 60 0RF fluticasone propion-salmeterol [Advair Diskus] 500-50 mcg/dose blister with device 1 inh inhalation BID Qty: 3 3RF Spiriva Respimat 2.5 mcg/actuation mist 2 inh inhalation DAILY Qty: 3 3RF Rx Instructions: administer at approximately the same time(s) each day Primary Care Provider: Alfonso Fortune Referrals: Alfonso Fortune MD [Primary Care Provider] - Print Language: Arabic
[2024-10-12 21:57] LABS: AST(SGOT) 19 U/L (<=37); Alanine Aminotransfer ALT/SGPT 10 U/L (<=46); Albumin, Serum 4.0 g/dL (3.4-4.8); Alkaline Phosphatase 73 U/L (40-129); Anion Gap 12 (5-15); BUN 12 mg/dL (4-19); BUN/Creat Ratio 16.6 RATIO (10-20); Calcium,Total 9.4 mg/dL (7.6-11.0); Carbon Dioxide 25.7 mmol/L (21.0-32.0); Chloride 92 mmol/L (98-108); Estimated Creatinine Clearance 89.17 ml/min (50-250); Globulin 2.5 g/dL (2.2-4.2); Glucose 87 mg/dL (70-99); Lipase 25 U/L (13-75); Potassium 4.6 mmol/L (3.3-5.1)
[2024-10-12 22:00] VITALS: PULSE 80; RESP 16; O2SAT 100
[2024-10-12 22:16] LABS: Troponin T High Sensitivity 38 ng/L (<=22)
[2024-10-12 23:00] VITALS: BP 124/81; PULSE 83; RESP 16; O2SAT 100
[2024-10-12 23:35] VITALS: PULSE 87; RESP 16
[2024-10-13] VITALS: BP 120/79; PULSE 81; RESP 16; O2SAT 100
[2024-10-13 00:09] LABS: Troponin T High Sens 2 HR 45 ng/L (<=22)
[2024-10-13 01:03] VITALS: BP 120/82; PULSE 79; PULSE 80; RESP 13; RESP 18; TEMP 36.6; O2SAT 98; O2SAT 99
[2024-10-13 01:37] LABS: Troponin T High Sens 4 HR 46 ng/L (<=22)
== END 2024-10-13 02:02 | disposition home or self-care (01) ==
PROVIDERS: Emergency Provider Emergency Medicine; PCP Family Medicine; Visit Provider Emergency Medicine
DX: M54.6 Pain in thoracic spine (principal); J44.9 Chronic obstructive pulmonary disease, unspecified; G89.29 Other chronic pain; R00.2 Palpitations; I10 Essential (primary) hypertension; F17.200 Nicotine dependence, unspecified, uncomplicated; R07.9 Chest pain, unspecified; R06.00 Dyspnea, unspecified; I25.10 Atherosclerotic heart disease of native coronary artery without angina pectoris
CPT/HCPCS: 71275; 74174; 80053; 83690; 84484; 85025; 93005; 94640; 96361; 96374; 96375; 99285; Q9967; A4216; J2405

== ENCOUNTER 2025-02-21 23:22 | Emergency (ER) | payer OTHER, SELFPAY ==
[2025-02-21 23:24] VITALS: BP 107/86; PULSE 171; RESP 22; TEMP 36.6; O2SAT 97
[2025-02-21 23:29] VITALS: BP 107/86; PULSE 171; RESP 22; TEMP 36.6; O2SAT 100
[2025-02-21] MEDS: Adenosine 6 MG/2 ML Syringe IV (23:36)
[2025-02-21 23:38] VITALS: BP 139/80; PULSE 102; RESP 18; O2SAT 100
--- NOTE | 2025-02-21 23:39 | EKG12_ITS ---
Test Reason : CP Blood Pressure : */* mmHG Vent. Rate : 170 BPM Atrial Rate : * BPM P-R Int : * ms QRS Dur : 94 ms QT Int : 272 ms P-R-T Axes : * -64 84 degrees QTcB Int : 457 ms Critical Test Result: High HR Supraventricular tachycardia Left axis deviation Possible Septal infarct , age undetermined Abnormal ECG Confirmed by Felix Benjamin ([id number]), medical editor KEVON CHRISTINE ([id number]) on 02/25/2025 6:44:15 AM Referred By: PARMINDER Confirmed By: Felix Benjamin
[2025-02-21] MEDS: 0.9% Normal Saline (1000mL) 1,000 ML 999 ML IV (23:42)
--- OUTSIDE RECORDS SUMMARY | 2025-02-21 23:45 | XMS RPT_ITS | CCD ---
Author Organization 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 Stone Fortune Primary Care Provider [phone] Dr. Cindy Aguila Emergency Provider Dr. Jose Rangel Admit Provider Dr. Jose Rangel Attending Provider Dr. Jose Rangel Other Provider Dr. Stone Fortune Primary Care Provider [phone] Dr. Cindy Aguila Emergency Provider Dr. Jose Rangel Admit Provider Dr. Jose Rangel Attending Provider Dr. Jose Rangel Other Provider Dr. Stone Fortune Referring Provider Dr. Efren Kay Attending Provider Dr. Stone Fortune Primary Care Provider [phone] Lorenzo LIQUOR DEPARTMENT MANAGER, ANGELA Degroot Attending Provider [phone] Dr. Efren Kay Referring Provider Dr. Efren Kay Other Provider Dr. Stone Fortune Primary Care Provider [phone] Dr. Stone Fortune Referring Provider Lorenzo LIQUOR DEPARTMENT MANAGER, LIQUOR DEPARTMENT MANAGER-C Mikayla Attending Provider Dr. Efren Kay Attending Provider Dr. Efren Kay Referring Provider Dr. Efren Kay Other Provider Dr. Stone Fortune Primary Care Provider Dr. Stone Fortune Referring Provider Lorenzo LIQUOR DEPARTMENT MANAGER, LIQUOR DEPARTMENT MANAGER-C Mikayla Attending Provider [phone] Dr. Stnoe Fortune Primary Care Provider [phone] Dr. Stone Fortune Referring Provider Lorenzo LIQUOR DEPARTMENT MANAGER, LIQUOR DEPARTMENT MANAGER-C Mikayla Attending Provider Dr. Stone Fortune Primary Care Provider Dr. Stone Fortune Referring Provider Dr. Efren Kay Attending Provider [phone] Xavi Fortune MD Primary Care Provider Neil Augustin DO Unavailable Xavi Fortune MD Unavailable Franklyn SHERMAN, Blaze Unavailable XAVI FORTUNE Primary Care Unavailabl Dr. Xavi Juarez MD Primary Care Provider Lorenzo LIQUOR DEPARTMENT MANAGER-C, Mikayla Attending Provider Lorenzo LIQUOR DEPARTMENT MANAGER-C, Mikayla Referring Provider Cesar ACEVES, Dr. Balderas Emergency Provider [phone] Radha ACEVES, Dr. Washington Admit Provider Unavailable Radha ACEVES, Dr. Washington Attending Provider Unavailquincy Garcia MD, Dr. Washington Other Provider Unavailable Natalie ACEVES, Dr. Wetzel Attending Provider Lorenzo LIQUOR DEPARTMENT MANAGER-C, Mikayla Other Provider Dr. Von Zambrano DO Attending Provider Dr. Xavi Fortune MD Attending Provider [phone] Tong ACEVES, Dr. Hamilton Referring Provider Shoshana OATES, Dr. Etienne Emergency Provider Lamont ACEVES, Dr. Cortez Admit Provider Lamont ACEVES, Dr. Cortez Other Provider Charli OATES, Dr. Trejo Attending Provider Lamont ACEVES, Dr. Cortez Attending Provider Charli OATES, Dr. Trejo Other Provider Sarah DO, Dr. Lemos Emergency Provider de Armando OATES, Dr. Washington Admit Provider Unavail able Greenfield DO, Dr. Washington Other Provider Unavail able Jordan ACEVES, Dr. Ortega Other Provider Rochelle OATES, Dr. Gentile Other Provider Uriah ACEVES, Dr. Wynne Other Provider Lyle ACEVES, Dr. Liz Hills Other Provider [phone] Jordan ACEVES, Dr. Ortega Attending Provider Charli OATES, Dr. Trejo Referring Provider Lyle ACEVES, Dr. Liz Hills Attending Provider Jens ACEVES, Dr. Pastor Other Provider Elizabeth ACEVES, Dr. Love Other Provider Rahul ACEVES, Dr. Schwartz Other Provider Juan Manuel OATES, Dr. Longoria Other Provider Carmen ACEVES, Dr. Felix Louis Other Provider Julián ACEVES, Dr. Burciaga Other Provider Sarai ACEVES, Dr. Thurman Other Provider [phone] Soto ACEVES, Dr. Puri Other Provider Colby ACEVES, Dr. Rizo Other Provider [phone] Ramone ACEVES, Dr. Noel Other Provider [phone] Major ACEVES, Dr. Campos Other Provider Davey ACEVES, Dr. Osei Other Provider Kennedy ACEVES, Dr. Garner Other Provider Unavailabl remi Rodney MD, Dr. Bland Other Provider [phone] Alberto ACEVES, Dr. Baez Other Provider Rafi ACEVES, Dr. Farley Other Provider [phone] Twin ACEVES, Dr. Juarez Other Provider Andrew OATES, Dr. Macias Other Provider [phone] Le ACEVES, Dr. Garcia Other Provider [phone] Kevon ACEVES, Dr. Burgos Other Provider [phone] Sabina OATES, Dr. Marcelino Other Provider Jose Ramon ACEVES, Dr. Valdez Other Provider Chucho ACEVES, Dr. Wolfe Other Provider Lyle ACEVES, Dr. Liz Hills Referring Provider Dr. Walt Turner DO Attending Provider Dr. Francis Ashraf MD Attending Provider Tiffanie Deluna PA-C Attending Provider Jose Cruz ACEVES, Dr. Ken Attending Provider Dr. Ryan Randhawa DO Emergency Provider Dallin ACEVES, Dr. Malhotra Other Provider [phone] Dr. Marya Zamarripa MD Attending Provider Dr. Ricci Kruse MD Attending Provider Dr. Ricci Kruse MD Referring Provider Dr. Canelo Heredia DO Attending Provider [phone] Francis Asher MD Attending Provider Dr. Xavi Fortune MD Primary Care Provider Dr. Von Zambrano DO Attending Provider Lorenzo LIQUOR DEPARTMENT MANAGER-C, Mikayla Attending Provider Lorenzo LIQUOR DEPARTMENT MANAGER-C, Mikayla Referring Provider Tong ACEVES, Dr. Hamilton Primary Care Provider Tong ACEVES, Dr. Hamilton Referring Provider [phone] Tong ACEVES, Dr. Hamilton Attending Provider [phone] Ann OATES, Dr. Campos Emergency Provider Jeff ACEVES, Dr. Mckenzie Admit Provider Unavailab sarah Aguilar MD, Dr. Mckenzie Attending Provider Jackie Juarez DO, Dr. Campos Emergency Provider Jeff ACEVES, Dr. Mckenzie Admit Provider Unavailab sarah Aguilar MD, Dr. Mckenzie Attending Provider Jackie Aguilar MD, Dr. Mckenzie Other Provider Unavailab sarah Fortune MD, Dr. Hamilton Primary Care Provider Tong ACEVES, Dr. Hamilton Referring Provider Lorenzo DURAND-C, Mikayla Attending Provider Dr. Ricci Kruse MD Attending Provider Dr. Ricci Kruse MD Referring Provider Dr. Canelo Heredia DO Attending Provider Dr. Canelo Heredia DO Emergency Provider [phone] Dr. Walt Turner DO Attending Provider Dr. Francis Asher MD Attending Provider Lorenzo LIQUOR DEPARTMENT MANAGER-C, Mikayla Referring Provider Dr. aXvi Fortune MD Attending Provider [phone] Ann OATES, Dr. Campos Emergency Provider Jeff ACEVES, Dr. Mckenzie Admit Provider Unavailab sarah Aguilar MD, Dr. Mckenzie Attending Provider Jackie Aguilar MD, Dr. Mckenzie Other Provider Unavailab sarah Alvarenga MD, Dr. Liz Hills Attending Provider Lyle ACEVES, Dr. Liz Hills Other Provider [phone] Yue OATES, Dr. Godoy Referring Provider Tong ACEVES, Dr. Hamilton Primary Care Provider Tong ACEVES, Dr. Hamilton Referring Provider Lorenzo LIQUOR DEPARTMENT MANAGER-C, Mikayla Attending Provider Yue OATES, Dr. Godoy Attending Provider Tong ACEVES, Dr. Hamilton Primary Care Provider Tong ACEVES, Dr. Hamilton Attending Provider Tong ACEVES, Dr. Hamilton Referring Provider Lorenzo LIQUOR DEPARTMENT MANAGER-C, Mikayla Attending Provider Dr. Cindy Aguila DO Emergency Provider Tong ACEVES, Dr. Hamilton Primary Care Physicia n Tong ACEVES, Dr. Hamilton Attending Physician Tong ACEVES, Dr. Hamilton Referring Provider Yue OATES, Dr. Godoy Attending Physician Lorenzo LIQUOR DEPARTMENT MANAGER-C, Mikayla Attending Physician [phone] Dr. Cindy Aguila DO Attending Physician Dr. Cindy Aguila DO Emergency Department Physi chika Roberta Murphy Attending Physician Lorenzo LIQUOR DEPARTMENT MANAGER, Mikayla Referring Unavailable Lorenzo LIQUOR DEPARTMENT MANAGERMikayla Attending Unavailable Xavi Fortune Primary Care Unavailable Neil Augustin Attending Unavailable Xavi Fortune Primary Care Unavailable Felix Greenfield Admitting Unavailable Jordan Ortega Consulting Unavailable Felix Greenfield Consulting Unavailable Seferino Byrd Consulting Unavailable Ricci Kruse Consulting Unavailable Liz Alvarenga Consulting Unavailable Dana Miguel Consulting Unavailable Dana Miguel Admitting Unavailable Neil Augustin Attending Unavailable Ranney, Christopher Primary Care Unavailable Ranney, Christopher Primary Care Unavailable Felix Greenfield Admitting Unavailable Liz Alvarenga Attending Unavailable Jordan Ortega Consulting Unavailable Felix Greenfield Consulting Unavailable Seferino Byrd Consulting Unavailable Ricci Kruse Consulting Unavailable Liz Alvarenga Consulting Unavailable Neil Augustin Attending Unavailable Chey Zamarripaaderemi Consulting Unavailrex e Felix Greenfield Admitting Unavailable Ranney, Christopher Primary Care Unavailable Felix Greenfield Consulting Unavailable Marya Zamarripa Attending Unavailabl e Dallin, Saeidapradee Consulting Unavailrex e Felix Greenfield Admitting Unavailable Ranney, Christopher Primary Care Unavailable Felix Greenfield Consulting Unavailable Neil Augustin Consulting Unavailable Meera Dhillon Attending Unavailable Meera Dhillon Referring Unavailable [facility], [facility] Unavailable Meera Dhillon Attending Unavailable Ran[place] [facility], [facility] Un[facility] Unavailable TayoneyXavi Attending Unavailable Ranney, Christopher Referring Unavailable Ranney, Christopher Referring Unavailable Ranney, Viker Attending Unavailable Ran[place], [facility] Unavailable Canelo Heredia Attending Unavailable [facility], [facility] Unavailable [facility], [facility] Primary [facility] Unavailable Cindy Aguila Attending Unavailable Ranney, Christopher Referring Unavailable Ranney, Christopher Primary Care Unavailable RanneyViker Attending Unavailable Friend, Walt Referring Unavailable [facility], [facility] Unavailable FriendWalt Attending Unavailable Lorenzo LIQUOR DEPARTMENT MANAGER, Mikayla Attending Unavailable Lorenzo LIQUOR DEPARTMENT MANAGER, Mikayla Referring Unavailable Ranney, Christopher Primary Care Unavailable Ricci Kruse Attending Unavailable UriahRicci Referring Unavailable Ranney, Christopher Primary Care Unavailable Ranney, Christopher Primary Care Unavailable Ranney, Viker Attending Unavailable Ranney, Christopher Referring Unavailable Dawit Colindres Consulting Unavailable Ivan Johnson Consulting Unavailable Efren Kay Consulting Unavailable Von Zambrano Consulting Unavailable Felix Morales Consulting Unavailable Gualberto Gallego Unavailable Olman Moon Consulting Unavailable Khushi Valera Consulting Unavailab le Dand, Darrius Consulting Unavailable Pakc, Bert Consulting Unavailable Gonsalves, Andres Consulting Unavailable Davey, Farnaz Consulting Unavailable Aljundi, Lamia Consulting Unavailable Rodney, Edwina Consulting Unavailable Alberto, Nestor Consulting Unavailable Irukantoniaa, Miguelito Consulting Unavailable Twin, Larry Consulting Unavailable Dhesi, Gilberto Consulting Unavailable Lujan, Jose Consulting Unavailable Kevon, Deidreyaambrosio Consulting Unavailable Sabina, Ryland Consulting Unavailable José Miguel Albright Consulting Unavailable Aiden Rankin Consulting Unavailable Jordan Ortega Attending Unavailable Aguilar, Achintya Admitting Unavailable [facility]available Aguilar, Achintya Consulting Unavailable Liz Alvarenga Attending Unavailable Francis Ashraf Attending Unavailable Francis Asher Attending Unavailable [facility] Primary Care Unavailable [place], Christopher Referring Unavailable Lorenzo LIQUOR DEPARTMENT MANAGER, Mikayla Attending Unavailable [facility] Primary Care Unavailable [place], Christopher Referring Unavailable Lorenzo LIQUOR DEPARTMENT MANAGER, Mikayla Attending Unavailable [facility] Primary Care Unavailable [facility] [place], [facility] Referring Unavailable [facility] Primary Care Unavailable Roberta Murphy Attending Unavail able [facility] [place], [facility] Referring Unavailable Lorenzo LIQUOR DEPARTMENT MANAGER, Mikayla Attending Unavailable [facility] Primary Care Unavailable Rannew waverly, Christopher Referring Unavailable Walt Turner Attending Unavailable [facility] Primary Care Unavailable [place], [facility] Referring Unavailable [facility] Primary Care Unavailable Rashard Estrada Attending Unavailable [facility] Primary Care Unavailable Celeste Murguia Attending Unavailable [place], [facility] Referring Unavailable Walt Turner Attending Unavailable [facility] Primary Care Unavailable Ran[place], [facility] Referring Unavailable Felix Garcia Attending Unavailable Felix Garcia Admitting Unavailable Felix Garcia Consulting Unavailable [facility] Unavailable Neil Augustin Referring Unavailable Suellen Billingsley Attending Unavailable Charli Neil Consulting Unavailable Dana Miguel Consulting Unavailable Dana Miguel Admitting Unavailable Neil Augustin Attending Unavailable [facility] Unavailable Charli, Neil Consulting Unavailable Felix Greenfield Attending Unavailable Tiffanie Gonzales Attending Unavailable Neil Augustin Attending Unavailable Lorenzo LIQUOR DEPARTMENT MANAGER, Mikayla Attending Unavailable [facility] Primary Care Unavailable Ranney, Christopher Referring Unavailable Ventura LIQUOR DEPARTMENT MANAGER, Mikayla Attending Unavailable Ranney, Christopher Primary Care Unavailable Ranney, Christopher Referring Unavailable Felix Garcia Attending Unavailable Felix Garcia Admitting Unavailable Ranney, [facility] Unavailable Ranney, Christopher Primary Care Unavailable Ranney, Christopher Attending Unavailable Ranney, Christopher Referring Unavailable Ranney, Christopher Primary Care Unavailable Ranney, Christopher Referring Unavailable Ranney, Christopher Attending Unavailable Ranney, [facility] Unavailable Ranney, Christopher Referring Unavailable Ranney, Christopher Attending Unavailable Ranney, Christopher Primary Care Unavailable Ranney, Christopher Attending Unavailable Ranney, Christopher Referring Unavailable Neil Augustin Attending Unavailable Lorenzo LIQUOR DEPARTMENT MANAGER, Mikayla Referring Unavailable Lorenzo LIQUOR DEPARTMENT MANAGER, Mikayla Attending Unavailable Rannew waver[place], [facility] Primary [facility] Unavailable Dana Miguel Consulting Unavailable Dana Miguel Admitting Unavailable Dana Miguel Attending Unavailable Rannew waver[place], [facility] Primary [facility] Unavailable Walt Turner Attending Unavailable Koram, Liz Jeana Referring Unavailable Felix Greenfield Attending Unavailable Aguilar, Achintya Admitting Unavailable Ran[facility], [facility] Unavailable Aguilar, Achintya Consulting Unavailable Aguilar, Achintya Attending Unavailable Ventura LIQUOR DEPARTMENT MANAGER, Mikayal Consulting Unavailable Ranney, [facility] Primary [facility] Unavailable Von Zambrano Attending Unavailable Lorenzo LIQUOR DEPARTMENT MANAGER, Mikayla Referring Unavailable Rannew waverly, [facility] Primary Care Unavailable Aguilar, Achintya Consulting Unavailable Aguilar, Achintya Admitting Unavailable Koram, Liz Jeana Attending Unavailable Koram, Liz Jeana Consulting Unavailable Friend, Walt Attending Unavailable Rannew waverly, [place] Primary Care Unavailable Ranney, Christopher Referring Unavailable Ventura LIQUOR DEPARTMENT MANAGER, Mikayla Attending Unavailable Rannew waverly, [facility] Primary [facility] Unavailable Ranney, Christopher Referring Unavailable Von Zambrano Attending Unavailable Tong ACEVES, Dr. Hamilton Primary Care Physicia n Dr. Xavi Fortune MD Referring Provider Allergies Allergy Classification Reported Allergen(s) Allergy Type Date of Onset Reaction(s) Facility tolterodine (1 source) tolterodine Drug Allergy 5 Other: See Comments [facility] Work Phone: (20 sources) tolterodine; Translations: [TOLTERODINE TARTRATE] Drug Allergy 5 Other: See Comments [facility] Work Phone: (11 sources) amLODIPine Drug Allergy 5 Swelling [facility] (11 sources) Lisinopril Drug Allergy 5 Pain in joints [facility] (11 sources) tamsulosin Drug Allergy 5 Other [facility] (11 sources) tolterodine Drug Allergy 5 Other [facility] Comment on above: depression (3 sources) dupilumab Drug Allergy 5 Pain in joints [facility] Comment on above: insomnia, back pain (1 source) amLODIPine Drug Allergy 5 [facility] Repository (1 source) Lisinopril Drug Allergy 5 [facility] (1 source) tamsulosin Drug Allergy 5 [facility] (1 source) tolterodine Drug Allergy 5 [facility] (1 source) dupilumab Drug allergy (disorder) 5 [facility] Repository Medications Current Medications Medication Drug Class(es) Dates Sig (Normalized) Sig (Original) [id number] 200 actuat albuterol 0.09 mg/actuat metered dose inhaler (20 sources) beta2-Adrenergic Agonist Start: 05-14-2024 Albuterol Sulfate 90 mcg/actuation HFA aerosol inhaler Active 2 NMA INHALATION Q4H as needed for SOB May 14, 2024 12:06pm Smoking greater than 40 pack years Nicotine dependence, cigarettes, uncomplicated Complies with drug therapy Start: 12-16-2020 take 2 puff(s) by in halation every four hours as needed for wheezing albuterol HFA (PROAIR HFA) 90 mcg/actuation inhaler Indications: COPD with exacerbation (HCC) Inhale 2 Puffs as instructed every 4 hours as needed for wheezing/shortness of breath. 1 Each 1 12/16/2020 Active Start: 07-23-2018 End: 05-14-2024 Albuterol Sulfate 90 mcg/act uation HFA aerosol inhaler Discontinued 1 NMA INHALATION EVERY 6 HOURS as needed for SOB 8.5 11 January 16, 2024 1:52pm May 14, 2024 12:12pm Smoking greater than 40 pack years Nicotine dependence, cigarettes, uncomplicated Start: 07-23-2018 End: 05-14-2024 Start: 07-23-2018 End: 01-24-2023 take 1 puff(s) by inhalation every six hours Albuterol Sulfate Discontinued 1 PUFF INHALATION EVERY 6 HOURS 8.5 January 15, 2022 11:03am December 23, 2022 6:59am albuterol 0.833 mg/ml / ipratropium bromide 0.167 mg/ml inhalation solution (1 source) Anticholinergic, beta2-Adrenergic Agonist Start: 12-13-2024 take 1 mL by inhalation every four hours as needed for wheezing Start: 12-13-2024 take 1 mL by inhalat ion every four hours as needed for wheezing amLODIPine (3 sources) Dihydropyridine Calcium Channel Russ AMLODIPINE BESYLATE (NORVASC ORAL) Take by mouth. Active AMLODIPINE BESYL ATE (NORVASC ORAL) Take by mouth. 0 Active amoxicillin 875 mg / clavulanate 125 mg oral tablet (20 sources) Penicillin-class Antibacterial Start: 04-14-2024 take 1 tablet by mouth twice daily amoxicillin-clavulanate potassium (AUGMENTIN) 875-125 mg per tablet Take 1 tablet by mouth two times a day. 04/14/2024 Active Start: 04-10-2024 End: 05-24-2024 Amoxicillin-Pot Clavulanate 875-125 mg tablet Discontinued 1 {tbl} PO Q12H 56 April 10, 2024 1:00am May 24, 2024 3:17pm Start: 04-10-2024 End: 05-24-2024 Start: 06-24-2023 End: 09-15-2023 Amoxicillin-Pot Clavulanate 875-125 mg tablet Discontinued 1 {tbl} PO TWICE A DAY 10 June 24, 2023 12:00am September 15, 2023 9:03am Chronic obstructive pulmonary disease Mixed simple and mucopurulent chronic bronchitis Start: 06-24-2023 End: 09-15-2023 Start: 02-07-2022 End: 04-02-2022 Amoxicillin-Pot Clavulanate 875-125 mg tablet Discontinued 1 {tbl} PO TWICE A DAY 10 March 22, 2022 12:42pm April 02, 2022 2:55pm Start: 02-07-2022 End: 04-02-2022 Start: 02-07-2022 End: 04-02-2022 take 1 tablet by mouth twice daily Amoxicillin-Pot Clavulanate Discontinued 1 TABLET PO TWICE A DAY March 22, 2022 11:42am April 02, 2022 1:55pm colchicine 0.6 mg oral table t (13 sources) Start: 05-06-2024 colchicine 0.6 mg tablet Take 0.6 mg by mouth two times a day. per [facility] 05/06/2024 Active Start: 05-06-2024 End: 05-26-2024 take 1 capsule by mouth twice daily Colchicine 0.6 mg capsule Discontinued 0.6 mg PO TWICE A DAY 30 May 06, 2024 12:00am May 26, 2024 1:27pm Disability Placard (7 sources) Start: 01-30-2024 Disability Rayna card Active 0 .ROUTE .MEDSUPPLY 1 0 January 30, 2024 1:00am chronic respiratory distress J96.10 expires 01/29/2029 [id number] 0.3 ml EPINEPHrine 1 mg/ml auto-injector (11 sources) alpha-Adrenergic Agonist, beta-Adrenergic Agonist, Catecholamine Start: 07-07-2023 Epinephrine (Epip en 2-Jesse) 0.3 mg/0.3 mL auto-injector Active 0.3 mg IM ONCE as needed for anaphylaxis July 07, 2023 12:00am as a single dose; may repeat once Complies with drug therapy Start: 07-07-2023 Fluticasone Propion-Salmeterol (20 sources) Corticosteroid, beta2-Adrenergic Agonist Start: 02-16-2024 Fluticasone Propion-Salmeterol (Advair Diskus) 500-50 mcg/dose blister with device Active 1 NMA INHALATION TWICE A DAY 3 February 16, 2024 1:00am respiratory Complies with drug therapy Start: 02-16-2024 Fluticasone Pr opion-Salmeterol (Advair Diskus) 500-50 mcg/dose blister with device Active 1 NMA INHALATION TWICE A DAY 3 February 16, 2024 1:00am respiratory Start: 02-16-2024 Start: 01-21-2024 End: 01-30-2024 Fluticasone Propion-Salmeter ol (Advair Diskus) 500-50 mcg/dose blister with device Discontinued 1 NMA INHALATION Q12H 60 January 21, 2024 1:05pm January 30, 2024 3:52pm Smoking greater than 40 pack years Nicotine dependence, cigarettes, uncomplicated Start: 01-21-2024 End: 01-30-2024 Start: 10-06-2023 End: 01-21-2024 Fluticasone Propion-Salmeter ol (Advair Diskus) 500-50 mcg/dose blister with device Discontinued 1 NMA INHALATION Q12H 60 October 06, 2023 8:44am January 21, 2024 1:05pm Smoking greater than 40 pack years Nicotine dependence, cigarettes, uncomplicated Start: 10-06-2023 End: 01-21-2024 Start: 01-06-2023 End: 10-06-2023 Fluticasone Propion-Salmeter ol (Advair Diskus) 500-50 mcg/dose blister with device Discontinued 1 NMA INHALATION Q12H 60 January 06, 2023 3:30pm October 06, 2023 8:44am Smoking greater than 40 pack years Nicotine dependence, cigarettes, uncomplicated Start: 01-06-2023 End: 10-06-2023 Start: 01-06-2023 Fluticasone Pr opion-Salmeterol (Advair Diskus) 500-50 mcg/dose blister with device Active 1 INH INHALATION Q12H January 06, 2023 3:30pm Start: 01-06-2023 Fluticasone Pr opion-Salmeterol (Advair Diskus) 500-50 mcg/dose blister with device Active 1 INH INHALATION Q12H 60 January 06, 2023 2:30pm Start: 12-23-2022 End: 01-06-2023 Fluticasone Propion-Salmeter ol (Advair Diskus) 500-50 mcg/dose blister with device Discontinued 1 NMA INHALATION Q12H 60 December 23, 2022 7:56am January 06, 2023 3:31pm Smoking greater than 40 pack years Nicotine dependence, cigarettes, uncomplicated Start: 12-23-2022 End: 01-06-2023 Start: 12-23-2022 End: 01-06-2023 Fluticasone Propion-Salmeter ol (Advair Diskus) 500-50 mcg/dose blister with device Discontinued 1 INH INHALATION Q12H 60 December 23, 2022 7:56am January 06, 2023 3:31pm Start: 12-23-2022 End: 01-06-2023 Fluticasone Propion-Salmeter ol (Advair Diskus) 500-50 mcg/dose blister with device Discontinued 1 INH INHALATION Q12H 60 December 23, 2022 6:56am January 06, 2023 2:31pm Start: 04-02-2022 End: 12-23-2022 Fluticasone Propion-Salmeter ol (Advair Diskus) 500-50 mcg/dose blister with device Discontinued 1 NMA INHALATION Q12H 60 April 02, 2022 1:00am December 23, 2022 7:59am Start: 04-02-2022 End: 12-23-2022 Start: 04-02-2022 End: 12-23-2022 Fluticasone Propion-Salmeter ol (Advair Diskus) 500-50 mcg/dose blister with device Discontinued 1 INH INHALATION Q12H 60 April 02, 2022 1:00am December 23, 2022 7:59am Start: 04-02-2022 End: 12-23-2022 Fluticasone Propion-Salmeter ol (Advair Diskus) 500-50 mcg/dose blister with device Discontinued 1 INH INHALATION Q12H 60 April 02, 2022 12:00am December 23, 2022 6:59am Start: 04-02-2022 Fluticasone Pr opion-Salmeterol (Advair Diskus) 500-50 mcg/dose blister with device Active 1 INH INHALATION Q12H 60 April 02, 2022 1:00am Start: 07-23-2018 End: 04-02-2022 Fluticasone Propion-Salmeter ol (Advair Diskus) 100-50 mcg/dose blister with device Discontinued 1 NMA INHALATION TWICE A DAY July 23, 2018 12:00am April 02, 2022 3:00pm breathing Start: 07-23-2018 End: 04-02-2022 Start: 07-23-2018 End: 04-02-2022 take 1 puff(s) by inhalation twice daily Fluticasone Propion-Salmeterol (Advair Diskus) 100-50 mcg/dose blister with device Discontinued 1 PUFF INHALATION TWICE A DAY July 22, 2018 11:00pm April 02, 2022 2:00pm Start: 07-23-2018 End: 04-02-2022 take 1 puff(s) by inhalation twice daily Fluticasone Propion-Salmeterol (Advair Diskus) 100-50 mcg/dose blister with device Discontinued 1 PUFF INHALATION TWICE A DAY July 23, 2018 12:00am April 02, 2022 3:00pm Start: 07-23-2018 take 1 puff(s) by in halation twice daily Fluticasone Propion-Salmeterol (Advair Diskus) 100-50 mcg/dose blister with device Active 1 PUFF INHALATION TWICE A DAY July 22, 2018 11:00pm Start: 07-23-2018 take 1 puff(s) by in halation twice daily Fluticasone Propion-Salmeterol (Advair Diskus) 100-50 mcg/dose blister with device Active 1 PUFF INHALATION TWICE A DAY July 23, 2018 12:00am Start: 02-08-2016 take 1 puff(s) by mo [facility] twice daily fluticasone-salmeterol (ADVAIR DISKUS) 500-50 mcg/dose dsdv Inhale 1 Puff as instructed twice daily. Rinse and gargle mouth with water after use. 3 Inhaler 3 02/08/2016 Active melatonin 3 mg oral tablet (20 sources) Start: 05-14-2024 take 1 tablet by mouth at bedtime as needed for sleep Melatonin 3 mg tablet Active 3 mg PO BEDTIME as needed for sleep May 14, 2024 12:00am Complies with drug therapy Start: 05-14-2024 Start: 03-20-2024 End: 05-03-2024 take 1 tablet by mouth at bedtime as needed Melatonin 3 mg Tablet Discontinued 3 mg PO AT BEDTIME NEEDED as needed for Insomnia 0 0 March 20, 2024 1:00am May 03, 2024 2:47pm Start: 03-20-2024 End: 05-03-2024 metoprolol tartrate 25 mg oral tablet (20 sources) beta-Adrenergic Russ Start: 11-25-2024 take 1 tablet by mouth once daily Metoprolol Tartrate 25 mg tablet Active 25 mg PO daily November 25, 2024 3:43pm Complies with drug therapy Start: 04-10-2024 End: 11-25-2024 take 1 tablet by mouth twice daily Metoprolol Tartrate 25 mg Tablet Discontinued 25 mg PO TWICE A DAY 60 0 April 10, 2024 1:00am November 25, 2024 3:43pm OXYGEN, HOME THERAPY, (20 sources) Start: 04-14-2024 OXYGEN, HOME T HERAPY, Inhale 2 L/min as instructed continuous. 04/14/2024 Active Start: 04-14-2024 OXYGEN, HOME T HERAPY, Inhale 3 L/min as instructed continuous. 04/14/2024 Active polyethylene glycol, bulk, 100 % powd (20 sources) Start: 04-14-2024 take 1 dose by mouth once daily as needed for constipation polyethylene glycol, bulk, 100 % powd Take 1 Dose by mouth once daily as needed (constipation). 04/14/2024 Active 60 actuat tiotropium 0.0025 mg/actuat inhalation spray (20 sources) Anticholinergic Start: 04-14-2024 take 2 puff(s) by inhalation once daily tiotropium bromide (SPIRIVA RESPIMAT) 2.5 mcg/actuation inhaler Inhale 2 Puffs as instructed once daily. 04/14/2024 Active Start: 02-16-2024 End: 07-13-2024 take 2.5 ug by inhalation once daily Tiotropium [place] (Spiriva Respimat) 2.5 mcg/actuation mist Discontinued 2 NMA INHALATION DAILY March 15, 2024 1:00am July 13, 2024 2:18pm copd administer at approximately the same time(s) each day Start: 02-16-2024 End: 03-15-2024 Start: 07-23-2018 End: 01-30-2024 take 1.25 ug by inhalation once daily Tiotropium [place] (Spiriva Respimat) 1.25 mcg/actuation mist Discontinued 2 NMA INHALATION DAILY 4 January 06, 2023 3:30pm January 30, 2024 3:52pm Smoking greater than 40 pack years Nicotine dependence, cigarettes, uncomplicated breathing Start: 07-23-2018 End: 01-30-2024 Start: 07-23-2018 End: 01-06-2023 take 1 puff(s) by inhalation once daily Tiotropium [place] (Spiriva Respimat) 1.25 mcg/actuation mist Discontinued 2 PUFF INHALATION DAILY December 23, 2022 6:56am January 06, 2023 2:31pm TIOTROPIUM BROMI DE (SPIRIVA RESPIMAT INHALATION) Inhale as instructed. Active TIOTROPIUM BROMI DE (SPIRIVA RESPIMAT INHALATION) Inhale as instructed. 0 Active traMADol hydrochloride 50 mg oral tablet (5 sources) Opioid Agonist Start: 08-31-2024 take 1 tablet by mouth once daily as needed for pain Tramadol 50 mg tablet Active 50 mg PO daily as needed for pain August 31, 2024 12:00am Complies with drug therapy Completed/Discontinued Medications Medication Drug Class(es) Dates Sig (Normalized) Sig (Original) acetaminophen 500 mg oral tablet (20 sources) Start: 03-02-2024 End: 05-14-2024 take 2 tablets by mouth every eight hours Acetaminophen 500 mg Tablet Discontinued 1000 mg PO Q8H March 15, 2024 1:00am May 14, 2024 12:12pm pain Start: 03-02-2024 End: 05-14-2024 acetaminophen 325 mg / HYDROcodone bitartrate 5 mg oral tablet (20 sources) Opioid Agonist Start: 05-26-2024 End: 07-10-2024 Hydrocodone-Acetaminophen 5- 325 mg tablet Discontinued 1 {tbl} PO THREE TIMES A DAY as needed 0 May 26, 2024 12:00am July 10, 2024 3:40am Start: 05-26-2024 End: 07-10-2024 Start: 10-06-2023 End: 03-02-2024 Hydrocodone-Acetaminophen 5- 325 mg tablet Discontinued 1 {tbl} PO EVERY 6 HOURS NEEDED as needed for Pain 12 3 0 October 06, 2023 March 02, 2024 12:21pm Strain of thoracic back region Strain of muscle and tendon of back wall of thorax, initial encounter Start: 10-06-2023 End: 03-02-2024 Start: 09-24-2021 End: 01-03-2022 Hydrocodone-Acetaminophen 1 TABLET tablet Discontinued 1 {tbl} PO EVERY 4 HOURS NEEDED as needed for Pain 10 2 0 September 24, 2021 January 03, 2022 11:47am Low back pain Low back pain, unspecified Start: 09-24-2021 End: 01-03-2022 Start: 09-24-2021 End: 01-03-2022 take 1 tablet by mouth every four hours as needed Hydrocodone-Acetaminophen Discontinued 1 TABLET PO EVERY 4 HOURS NEEDED 10 2 September 24, 2021 January 03, 2022 11:47am Start: 07-20-2018 End: 07-22-2018 Hydrocodone-Acetaminophen 1 TABLET tablet Discontinued 1 {tbl} PO EVERY 4 HOURS NEEDED as needed for Pain 10 2 0 July 20, 2018 12:00am July 21, 2018 12:00am July 22, 2018 12:06am Hemorrhoids Unspecified hemorrhoids Start: 07-20-2018 End: 07-22-2018 Start: 07-20-2018 End: 07-22-2018 take 1 tablet by mouth every four hours as needed Hydrocodone-Acetaminophen Discontinued 1 TABLET PO EVERY 4 HOURS NEEDED 10 2 July 20, 2018 12:00am July 22, 2018 12:06am acetaminophen 325 mg / oxyCODONE hydrochloride 5 mg oral tablet (11 sources) Opioid Agonist Start: 05-06-2024 End: 05-14-2024 Oxycodone-Acetaminophen 5-32 5 mg tablet Discontinued 1 {tbl} PO EVERY 6 HOURS NEEDED as needed for Pain 12 3 0 May 06, 2024 May 14, 2024 12:09pm Acute gout of right knee Gout, unspecified Start: 05-06-2024 End: 05-14-2024 azithromycin 250 mg oral tablet (20 sources) Macrolide Antimicrobial Start: 10-29-2024 End: 11-25-2024 Azithromycin 250 mg tablet Discontinued 0 PO .COMPLEX 6 0 October 29, 2024 12:00am November 25, 2024 3:05pm For 250 mg dose pack: take 500 mg today (day 1), then 250 mg for 4 days (days 2-5) PO Start: 01-14-2024 End: 01-30-2024 take 2-5 tablets by mouth once daily Azithromycin 250 mg tablet Discontinued 0 PO .COMPLEX 6 0 January 14, 2024 1:00am January 30, 2024 3:25pm take 500 mg today (day 1), then 250 mg for 4 days (days 2-5) PO Start: 08-24-2023 End: 09-15-2023 Azithromycin 250 mg tablet Discontinued 0 PO .COMPLEX 6 0 August 24, 2023 12:00am September 15, 2023 9:03am For 250 mg dose pack: take 500 mg today (day 1), then 250 mg for 4 days (days 2-5) Start: 10-23-2022 End: 12-23-2022 take 2-5 tablets by mouth once daily Azithromycin 250 mg tablet Discontinued 0 PO .COMPLEX 6 0 October 23, 2022 1:27pm December 23, 2022 7:39am take 500 mg today (day 1), then 250 mg for 4 days (days 2-5) PO bisacodyl 5 mg delayed release oral tablet (11 sources) Stimulant Laxative Start: 03-20-2024 End: 07-10-2024 take 2 tablets by mouth once daily as needed for constipation Bisacodyl 5 mg tablet Discontinued 10 mg PO DAILY as needed for constipation 10 0 March 20, 2024 4:12pm July 10, 2024 3:38am over the counter. No prescription required. Budesonide-Glyco pyr-Formoterol [Budesonide 160 Mcg-Glycopyr 9 Mcg-Formot 4.8 Mcg/Actuation Hfa Inhaler] (20 sources) Corticosteroid, beta2-Adrenergic Agonist Start: 02-28-2024 End: 02-28-2024 Budesonide-Glycopy r-Formoterol [Budesonide 160 Mcg-Glycopyr 9 Mcg-Formot 4.8 Mcg/Actuation Hfa Inhaler] (Budesonide 160 Mcg-Glycopyr 9 Mcg-Formot 4.8 ) 160-9-4.8 mcg/actuation HFA aerosol inhaler Discontinued 2 NMA INHALATION TWICE A DAY February 28, 2024 1:00am February 28, 2024 4:08pm Start: 02-28-2024 End: 02-28-2024 Start: 01-30-2024 End: 02-16-2024 Oocjjapjfu-Ivtnfblb-Furxxfnu ol (Breztri Aerosphere) 160-9-4.8 mcg/actuation HFA aerosol inhaler Discontinued 2 NMA INHALATION TWICE A DAY 10.7 6 January 30, 2024 1:00am February 16, 2024 9:50am Start: 01-30-2024 End: 02-16-2024 cefdinir 300 mg oral capsule (11 sources) Cephalosporin Antibacterial Start: 03-02-2024 End: 03-15-2024 take 1 capsule by mouth twice daily Cefdinir 300 mg capsule Discontinued 300 mg PO TWICE A DAY 10 0 March 02, 2024 1:00am March 15, 2024 12:47pm cyclobenzaprine hydrochloride 10 mg oral tablet (20 sources) Muscle Relaxant Start: 04-23-2024 End: 07-10-2024 take 1 tablet by mouth at bedtime Cyclobenzaprine 10 mg tablet Discontinued 10 mg PO BEDTIME May 14, 2024 12:07pm July 10, 2024 3:39am Start: 10-06-2023 End: 02-28-2024 take 1 tablet by mouth three times daily as needed for muscle spasms Cyclobenzaprine 10 mg tablet Discontinued 10 mg PO THREE TIMES A DAY as needed for Muscle Spasm 15 0 October 06, 2023 12:00am February 28, 2024 4:08pm dicyclomine hydrochloride 10 mg oral capsule (20 sources) Anticholinergic Start: 04-08-2024 End: 07-10-2024 take 2 capsules by mouth three times daily before mealtime as needed Dicyclomine 10 mg capsule Discontinued 20 mg PO THREE TIMES DAILY BEFORE MEALS as needed May 03, 2024 2:47pm July 10, 2024 3:39am docusate sodium 100 mg oral capsule (20 sources) Start: 05-06-2024 End: 07-10-2024 take 1 capsule by mouth twice daily Docusate Sodium (Colace) 100 mg capsule Discontinued 100 mg PO TWICE A DAY 30 0 May 06, 2024 12:00am July 10, 2024 3:39am Start: 07-20-2018 End: 02-07-2022 take 1 capsule by mouth once daily Docusate Sodium 100 MG capsule Discontinued 100 mg PO DAILY November 07, 2021 11:39am February 07, 2022 12:07pm stool softner docusate sodium 50 mg / sennosides, snf 8.6 mg oral tablet (20 sources) Start: 03-02-2024 End: 07-10-2024 Sennosides-Docusate Sodium (Stimulant Laxative Plus) 8.6-50 mg Tablet Discontinued 2 {tbl} PO TWICE A DAY as needed for Constipation March 15, 2024 1:00am July 10, 2024 3:41am Start: 03-02-2024 End: 07-10-2024 doxycycline monohydrate 100 mg oral capsule (20 sources) Tetracycline-class Drug Start: 04-08-2024 End: 05-24-2024 take 1 capsule by mouth twice daily Doxycycline Monohydrate 100 mg Capsule Discontinued 100 mg PO TWICE A DAY 56 0 April 08, 2024 1:00am May 24, 2024 3:17pm Start: 01-30-2024 End: 02-28-2024 take 1 tablet by mouth twice daily Doxycycline Monohydrate 100 mg tablet Discontinued 100 mg PO TWICE A DAY January 30, 2024 1:00am February 28, 2024 3:22pm DULoxetine 30 mg delayed release oral capsule (11 sources) Serotonin and Norepinephrine Reuptake Inhibitor Start: 02-28-2024 End: 03-15-2024 take 1 capsule by mouth once daily Duloxetine 30 mg capsule,delayed release(DR/EC) Discontinued 30 mg PO DAILY February 28, 2024 1:00am March 15, 2024 12:47pm mood 2 ml dupilumab 150 mg/ml auto-injector (8 sources) Interleukin-4 Receptor alpha Antagonist Start: 08-31-2024 End: 10-12-2024 Dupilumab (Dupixent Pen) 300 mg/2 mL pen injector Discontinued 600 mg SC ONCE 4 August 31, 2024 12:00am October 12, 2024 8:53pm Chronic obstructive pulmonary disease Asthma Chronic obstructive pulmonary disease, unspecified Unspecified asthma, uncomplicated as a single dose Start: 08-31-2024 End: 10-12-2024 Dupilumab (Dupixent Pen) 300 mg/2 mL pen injector Discontinued 300 mg SC every 2 weeks 4 August 31, 2024 12:00am October 12, 2024 8:53pm Chronic obstructive pulmonary disease Asthma Chronic obstructive pulmonary disease, unspecified Unspecified asthma, uncomplicated folic acid 1 mg oral tablet (20 sources) Start: 03-02-2024 End: 05-24-2024 take 1 tablet by mouth once daily Folic Acid 1 mg Tablet Discontinued 1 mg PO DAILY March 15, 2024 1:00am May 03, 2024 2:47pm supplement 12 hr guaiFENesin 1200 mg extended release oral tablet (20 sources) Start: 04-14-2024 take 1 tablet by mouth twice daily guaiFENesin 1,200 mg Ta12 Take 1 tablet by mouth two times a day. 04/14/2024 Active Start: 03-20-2024 End: 07-10-2024 take 1 tablet by mouth every twelve hours Guaifenesin 1,200 mg tablet extended release 12hr Discontinued 1200 mg PO Q12H 60 May 03, 2024 12:00am July 10, 2024 3:40am Abscess of lung Abscess of lung without pneumonia Start: 12-23-2022 take 1200 mg by mout h every twelve hours Guaifenesin Active 1200 MG PO Q12H 60 December 23, 2022 7:56am Start: 02-07-2022 End: 01-30-2024 take 1 tablet by mouth every twelve hours Guaifenesin 1,200 mg tablet extended release 12hr Discontinued 1200 mg PO Q12H 60 6 December 23, 2022 7:56am January 30, 2024 3:26pm Smoking greater than 40 pack years Nicotine dependence, cigarettes, uncomplicated hydrocortisone acetate 5 mg/ml / lidocaine hydrochloride 30 mg/ml rectal cream (20 sources) Antiarrhythmic, Corticosteroid, Amide Local Anesthetic Start: 07-20-2018 End: 02-07-2022 Lidocaine Hcl-Hydrocortison Ac 28.35 GM cream Discontinued 1 DISK TP THREE TIMES A DAY November 07, 2021 11:39am February 07, 2022 12:07pm pain Start: 07-20-2018 End: 02-07-2022 Start: 07-20-2018 End: 02-07-2022 Lidocaine Hcl-Hydrocortison Ac Discontinued 1 DISK TP THREE TIMES A DAY November 07, 2021 10:39am February 07, 2022 11:07am levoFLOXacin 500 mg oral tablet (20 sources) Quinolone Antimicrobial Start: 04-08-2024 End: 04-10-2024 take 1 tablet by mouth once daily Levofloxacin 500 mg Tablet Discontinued 500 mg PO DAILY@0600 28 0 April 08, 2024 1:00am April 10, 2024 10:29am Start: 03-20-2024 End: 04-08-2024 take 1 tablet by mouth once daily Levofloxacin 750 mg tablet Discontinued 750 mg PO DAILY 5 0 March 20, 2024 1:00am April 08, 2024 5:18pm Start: 09-15-2023 End: 01-14-2024 take 1 tablet by mouth once daily Levofloxacin 750 mg tablet Discontinued 750 mg PO DAILY 5 September 15, 2023 12:00am January 14, 2024 1:50pm Start: 07-01-2022 End: 09-18-2022 take 1 tablet by mouth once daily Levofloxacin 750 mg tablet Discontinued 750 mg PO DAILY 7 July 01, 2022 12:00am September 18, 2022 7:43am Start: 11-07-2021 End: 01-03-2022 take 1 tablet by mouth once daily Levofloxacin 750 mg Tablet Discontinued 750 mg PO DAILY@0600 5 November 07, 2021 12:00am January 03, 2022 11:46am losartan potassium 100 mg oral tablet (20 sources) Angiotensin 2 Receptor Russ Start: 01-30-2024 End: 05-26-2024 take 1 tablet by mouth once daily Losartan 100 mg tablet Discontinued 100 mg PO daily January 30, 2024 1:00am May 26, 2024 2:01pm blood pressure Start: 05-26-2023 End: 01-30-2024 take 1 tablet by mouth once daily Losartan 50 mg tablet Discontinued 50 mg PO DAILY May 26, 2023 12:00am January 30, 2024 3:26pm Start: 07-23-2018 End: 05-26-2023 take 1 tablet by mouth once daily Losartan 25 mg tablet Discontinued 25 mg PO DAILY July 23, 2018 12:00am May 26, 2023 9:16am blood pressure losartan potassi um (LOSARTAN ORAL) Take by mouth. Active losartan potassi um (LOSARTAN ORAL) Take by mouth. 0 Active metroNIDAZOLE 500 mg oral tablet (20 sources) Nitroimidazole Antimicrobial Start: 04-08-2024 End: 05-24-2024 take 1 tablet by mouth three times daily at mealtime Metronidazole 500 mg Tablet Discontinued 500 mg PO 3 TIMES DAILY WITH MEALS 84 0 April 08, 2024 1:00am May 24, 2024 3:17pm mirtazapine 15 mg oral tablet (11 sources) Start: 05-24-2024 End: 07-10-2024 take 1 tablet by mouth at bedtime Mirtazapine 15 mg tablet Discontinued 15 mg PO AT BEDTIME 30 May 24, 2024 12:00am July 10, 2024 3:41am Start: 05-24-2024 End: 07-10-2024 nystatin [id number] unt/ml oral suspension (20 sources) Polyene Antifungal Start: 01-30-2024 End: 02-28-2024 Nystatin 100,000 unit/mL suspension Discontinued 5 mL MUCOUS MEM THREE TIMES A DAY 250 January 30, 2024 1:00am February 28, 2024 4:09pm swish and swallow 5 cc three times per day for 10 days Start: 01-30-2024 End: 02-28-2024 Start: 12-23-2022 End: 05-01-2023 Nystatin 100,000 unit/mL matty pension Discontinued 5 mL MUCOUS MEM THREE TIMES A DAY 250 1 December 23, 2022 12:00am May 01, 2023 2:44pm Smoking greater than 40 pack years Nicotine dependence, cigarettes, uncomplicated swish and swallow 5 cc three times per day for 10 days Start: 12-23-2022 End: 05-01-2023 Start: 12-23-2022 End: 05-01-2023 Nystatin Discontinued 5 ML M UCOUS MEM THREE TIMES A DAY 250 December 23, 2022 12:00am May 01, 2023 2:44pm swish and swallow 5 cc three times per day for 10 days omeprazole 40 mg delayed release oral capsule (11 sources) Proton Pump Inhibitor Start: 01-30-2024 End: 03-15-2024 take 1 capsule by mouth once daily Omeprazole 40 mg capsule,delayed release(DR/EC) Discontinued 40 mg PO daily January 30, 2024 1:00am March 15, 2024 12:48pm reflux oxyCODONE hydrochloride 5 mg oral tablet (20 sources) Opioid Agonist Start: 05-03-2024 End: 05-24-2024 take 1 tablet by mouth four times daily as needed Oxycodone 5 mg tablet Discontinued 5 mg PO 4 TIMES DAILY as needed May 14, 2024 12:09pm May 24, 2024 3:17pm Start: 04-23-2024 End: 05-24-2024 Oxycodone 5 mg tablet Discon tinued mg PO 0 May 03, 2024 12:00am May 14, 2024 12:12pm Start: 03-02-2024 End: 03-28-2024 take 1 tablet by mouth every four hours as needed for pain Oxycodone 5 mg Tablet Discontinued 5 mg PO Q4H as needed for Pain Score 4-10 March 15, 2024 1:00am March 28, 2024 1:09am Start: 03-02-2024 End: 03-28-2024 polyethylene glycol 3350 39959 mg powder for oral solution (11 sources) Osmotic Laxative Start: 03-20-2024 End: 07-10-2024 Polyethylene Glycol 3350 (Miralax) 17 gram/dose powder Discontinued 17 g PO DAILY 119 0 March 20, 2024 1:00am July 10, 2024 3:41am constipation over the counter, no prescription required. microencapsulated potassium chloride 20 meq extended release oral tablet (11 sources) Start: 03-02-2024 End: 04-08-2024 take 1 tablet by mouth twice daily at mealtime Potassium Chloride 20 mEq Tablet,Er Particles/Crystals Discontinued 20 meq PO TWICE DAILY WITH MEALS 20 March 02, 2024 1:00am April 08, 2024 5:19pm supplement predniSONE 20 mg oral tablet (20 sources) Start: 10-29-2024 End: 11-25-2024 take 2 tablets by mouth once daily, then take 1 tablet by mouth once daily Prednisone 20 mg tablet Discontinued 20 mg PO daily 10 October 29, 2024 12:00am November 25, 2024 3:05pm Take 2 tablets daily for 4 days then 1 tablet daily for 2 days. Start: 08-31-2024 End: 09-12-2024 Prednisone 10 mg tablet Discontinued 10 mg PO daily 30 August 31, 2024 12:00am September 11, 2024 12:00am September 12, 2024 12:08am take 4 tabs for three days, then 3 tabs for three days, then 2 tabs for three days, then 1 tab for 3 days Start: 05-24-2024 End: 08-23-2024 take 1 tablet by mouth once daily Prednisone 20 mg tablet Discontinued 20 mg PO daily 30 May 24, 2024 12:00am August 23, 2024 3:14pm Start: 03-20-2024 End: 03-29-2024 take 2 tablets by mouth once daily Prednisone 20 mg tablet Discontinued 40 mg PO DAILY 10 March 20, 2024 1:00am March 29, 2024 10:46am Start: 03-02-2024 End: 03-15-2024 take 2 tablets by mouth once daily Prednisone 20 mg Tablet Discontinued 40 mg PO DAILY@0800 10 March 02, 2024 1:00am March 15, 2024 12:48pm Start: 01-14-2024 End: 02-28-2024 Prednisone 10 mg tablet Discontinued 10 mg PO daily January 14, 2024 1:00am February 28, 2024 4:09pm take 4 tabs for three days, then 3 tabs for three days, then 2 tabs for three days, then 1 tab for 3 days Start: 09-15-2023 End: 01-14-2024 take 2 tablets by mouth once daily Prednisone 20 mg tablet Discontinued 40 mg PO DAILY 20 10 October 01, 2023 12:00am January 14, 2024 1:50pm COPD flare Start: 09-15-2023 End: 01-14-2024 take 1 tablet by mouth twice daily Prednisone 20 mg tablet Discontinued 20 mg PO TWICE A DAY 14 September 15, 2023 12:00am January 14, 2024 1:50pm Start: 08-24-2023 End: 09-15-2023 take 1 tablet by mouth once daily Prednisone 50 mg tablet Discontinued 50 mg PO DAILY 5 August 24, 2023 12:00am September 15, 2023 9:04am Start: 06-24-2023 End: 09-15-2023 Prednisone 10 mg tablet Discontinued 10 mg PO daily 30 June 24, 2023 12:00am September 15, 2023 9:04am Chronic obstructive pulmonary disease Mixed simple and mucopurulent chronic bronchitis take 4 tabs for three days, then 3 tabs for three days, then 2 tabs for three days, then 1 tab for 3 days Start: 02-03-2023 End: 05-01-2023 take 3 tablets by mouth once daily at mealtime Prednisone 20 mg tablet Discontinued 60 mg PO daily 15 February 03, 2023 1:00am May 01, 2023 2:44pm administer with food or milk Start: 02-03-2023 End: 05-01-2023 Start: 10-23-2022 End: 12-23-2022 Prednisone 10 mg tablet Discontinued 10 mg PO daily 30 October 23, 2022 1:27pm December 23, 2022 7:39am take 4 tabs for three days, then 3 tabs for three days, then 2 tabs for three days, then 1 tab for 3 days Start: 07-03-2022 End: 09-18-2022 Prednisone 10 mg tablet Discontinued 10 mg PO daily 30 July 03, 2022 2:31pm September 18, 2022 7:43am take 4 tabs for three days, then 3 tabs for three days, then 2 tabs for three days, then 1 tab for 3 days Start: 02-07-2022 End: 04-02-2022 Prednisone 10 mg tablet Discontinued 10 mg PO daily 30 March 22, 2022 12:43pm April 02, 2022 2:55pm take 4 tabs for three days, then 3 tabs for three days, then 2 tabs for three days, then 1 tab for 3 days Start: 11-07-2021 End: 01-03-2022 take 2 tablets by mouth once daily Prednisone 20 mg tablet Discontinued 40 mg PO DAILY November 07, 2021 12:00am January 03, 2022 11:46am Start: 11-07-2021 End: 01-03-2022 take 40 mg by mouth once daily Prednisone Discontinued 40 MG PO DAILY November 07, 2021 12:00am January 03, 2022 11:46am Start: 06-20-2020 take 40 mg by mouth once daily Prednisone Active 40 MG PO DAILY 11 28June 20, 2020 12:00am simethicone 125 mg chewable tablet (11 sources) Start: 05-14-2024 End: 07-10-2024 take 1 tablet by mouth once as needed Simethicone (Gas Relief (Simethicone)) 125 mg tablet,chewable Discontinued 125 mg PO ONCE as needed May 14, 2024 12:00am July 10, 2024 3:41am Start: 05-14-2024 End: 07-10-2024 sodium chloride 1000 mg oral tablet (11 sources) Start: 03-02-2024 End: 04-08-2024 take 1 tablet by mouth twice daily Sodium Chloride 1,000 mg Tablet,Soluble Discontinued 1000 mg PO TWICE A DAY 60 0 March 02, 2024 1:00am April 08, 2024 5:19pm supplement thiamine 100 mg oral tablet (20 sources) Start: 03-02-2024 End: 05-24-2024 take 1 tablet by mouth once daily at mealtime Thiamine Hcl (Vitamin B1) 100 mg Tablet Discontinued 100 mg PO DAILY WITH MEALS 30 March 02, 2024 1:00am May 24, 2024 3:18pm supplement (20 sources) Start: 05-03-2024 End: 07-10-2024 Start: 05-03-2024 Start: 03-20-2024 End: 05-03-2024 Start: 03-02-2024 End: 05-24-2024 Start: 01-30-2024 Start: 12-23-2022 End: 01-30-2024 Problems Active Problems Problem Classification Problem Date Documented Da te Episodic/Chronic Alcohol-related disorders (20 sources) Alcohol abuse; Translations: [Alcohol abuse, uncomplicated] 09-12-2023 Chronic Cardiac dysrhythmias (20 sources) Supraventricular tachycardia; Translations: [Supraventricular tachycardia] 05-14-2024 Chronic Cardiac dysrhythmias (4 sources) Palpitations; Translations: [Palpitations] Onset: 5 10-13-2024 Episodic Chronic obstructive pulmonary disease and bronchiectasis (20 sources) Chronic obstructive lung disease; Translations: [Chronic obstructive pulmonary disease, unspecified] Onset: 1 Chronic Comment on above: FEV1 25% Chronic obstructive pulmonary disease and bronchiectasis (8 sources) Chronic obstructive pulmonary disease and bronchiectasis Conditions associated with dizziness or vertigo (15 sources) Lightheadedness; Translations: [Dizziness and giddiness] 03-28-2024 Episodic Deficiency and other anemia (20 sources) Anemia; Translations: [Anemia, unspecified] 05-26-2024 Episodic Diseases of white blood cells (16 sources) Leukocytosis; Translations: [Elevated white blood cell count, unspecified] Onset: 5 04-16-2024 Chronic Disorders of lipid metabolism (20 sources) Mixed hyperlipidemia; Translations: [Mixed hyperlipidemia] Onset: 5 02-08-2016 Chronic Diverticulosis and diverticulitis (12 sources) Diverticular disease; Translations: [Diverticulosis of intestine, part unspecified, without perforation or abscess without bleeding] 05-26-2023 Chronic E Codes: Fall (12 sources) Fall; Translations: [Unspecified fall, initial encounter] 03-10-2024 Episodic Essential hypertension (20 sources) Hypertensive disorder; Translations: [Essential (primary) hypertension] Onset: 6 07-23-2018 Chronic Gout and other crystal arthropathies (20 sources) 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; Translations: [Other chondrocalcinosis, unspecified knee] 05-14-2024 Chronic Hemorrhoids (20 sources) Hemorrhoids; Translations: [Unspecified hemorrhoids] 07-23-2018 Episodic Hyperplasia of prostate (20 sources) Benign prostatic hyperplasia; Translations: [Benign prostatic hyperplasia without lower urinary tract symptoms] Onset: 6 02-14-2016 Chronic Hypertension with complications and secondary hypertension (11 sources) Hypertensive urgency ; Translations: [Hypertensive urgency] 09-21-2023 Chronic Mycoses (17 sources) Candidiasis of mouth; Translations: [Candidal stomatitis] 12-23-2022 Episodic Osteoarthritis (20 sources) Arthritis; Translations: [Unspecified osteoarthritis, unspecified site] 07-23-2018 Chronic Other circulatory disease (15 sources) Low blood pressure; Translations: [Hypotension, unspecified] 04-16-2024 Episodic Other diseases of bladder and urethra (20 sources) Overactive bladder; Translations: [Overactive bladder] Onset: 5 10-12-2014 Chronic Other fractures (20 sources) Compression fracture of lumbar spine; Translations: [Wedge compression fracture of first lumbar vertebra, initial encounter for closed fracture] 10-02-2021 Episodic Other gastrointestinal disorders (20 sources) Irritable bowel syndrome; Translations: [Irritable bowel syndrome without diarrhea] Onset: 5 02-14-2016 Chronic Other gastrointestinal disorders (15 sources) Mass of colon; Translations: [Other specified diseases of intestine] 04-16-2024 Episodic Other gastrointestinal disorders (15 sources) Constipation; Translations: [Constipation, unspecified] 04-16-2024 Episodic Other lower respiratory disease (20 sources) Hypoxia; Translations: [Hypoxemia] 11-15-2021 Episodic Other lower respiratory disease (2 sources) Hypoxemia; Translations: [Hypoxemia] Episodic Other lower respiratory disease (1 source) Dyspnea; Translations: [Shortness of breath] 08-24-2023 Episodic Other lower respiratory disease (11 sources) Respiratory insufficiency; Translations: [Other abnormalities of breathing] 09-13-2023 Episodic Other lower respiratory disease (20 sources) Abscess of lung; Translations: [Abscess of lung without pneumonia] 05-03-2024 Episodic Other lower respiratory disease (11 sources) Cough; Translations: [Cough] 09-01-2023 Episodic Other lower respiratory disease (15 sources) Lung mass; Translations: [Other nonspecific abnormal finding of lung field] 04-05-2024 Episodic Other lower respiratory disease (19 sources) Cavitation of lung; Translations: [Other disorders of lung] 03-28-2024 Episodic Other nervous system disorders (15 sources) Walking disability; Translations: [Difficulty in walking, not elsewhere classified] 03-28-2024 Chronic Other nervous system disorders (1 source) Difficulty in walking, not elsewhere classified; Translations: [Difficulty in walking, not elsewhere classified] Onset: 5 Chronic Other nervous system disorders (20 sources) Taste sense altered; Translations: [Parageusia] 05-24-2024 Episodic Other nutritional; endocrine; and metabolic disorders (15 sources) Hypoalbuminemia; Translations: [Other disorders of plasma-protein metabolism, not elsewhere classified] 03-28-2024 Chronic Other nutritional; endocrine; and metabolic disorders (1 source) Other disorders of plasma-protein metabolism, not elsewhere classified; Translations: [Other disorders of plasma-protein metabolism, not elsewhere classified] Onset: 5 Chronic Other nutritional; endocrine; and metabolic disorders (20 sources) Weight decreased; Translations: [Abnormal weight loss] 05-24-2024 Episodic Residual codes; unclassified (16 sources) Hypoxia; Translations: [Idiopathic sleep related nonobstructive alveolar hypoventilation] 07-03-2022 Chronic Residual codes; unclassified (3 sources) Idiopathic sleep related nonobstructive alveolar hypoventilation; Translations: [Idiopathic sleep related non-obstructive alveolar hypoventilation] 07-03-2022 Chronic Residual codes; unclassified (20 sources) History of colonoscopy; Translations: [Other specified postprocedural states] 07-23-2018 Episodic Residual codes; unclassified (20 sources) Harmful pattern of use of nicotine; Translations: [Tobacco use] 01-30-2024 Episodic Residual codes; unclassified (15 sources) Edema of lower extremity; Translations: [Localized edema] 04-09-2024 Episodic Residual codes; unclassified (8 sources) Tobacco user; Translations: [Tobacco use] 07-10-2024 Episodic Respiratory failure; insufficiency; arrest (adult) (16 sources) Dependence on supplemental oxygen; Translations: [Dependence on supplemental oxygen] Onset: 5 04-16-2024 Chronic Spondylosis; intervertebral disc disorders; other back problems (20 sources) Inflammation of sacroiliac joint; Translations: [Sacroiliitis, not elsewhere classified] Onset: 10-02-2021 Chronic Sprains and strains (11 sources) Strain of thoracic region; Translations: [Strain of muscle and tendon of back wall of thorax, initial encounter] 10-14-2023 Episodic Substance-related disorders (20 sources) Cigarette smoker ; Translations: [Nicotine dependence, cigarettes, uncomplicated] Onset: Chronic Comment on above: Repeat LDCT ordered for May 2025 Unclassified (2 sources) I47.10 - Supraventricular tachycardia, unspecified Unclassified (2 sources) Supraventricular tachycardia, unspecified; Translations: [Supraventricular tachycardia, unspecified] Onset: 5 Viral infection (20 sources) Disease caused by 2019-nCoV; Translations: [COVID-19] 03-14-2021 Episodic Past or Other Problems Problem Classification Problem Date Documented Da te Episodic/Chronic Abdominal pain (20 sources) Abdominal pain; Translations: [Unspecified abdominal pain] Onset: 04-16-2024 05-26-2023 Episodic Deficiency and other anemia (1 source) Anemia, unspecified; Translations: [Anemia, unspecified] Onset: 08-25-2024 Episodic E Codes: Adverse effects of medical drugs (16 sources) Adverse reaction to drug; Translations: [Adverse effect of unspecified drugs, medicaments and biological substances, initial encounter] Onset: 04-22-2024 04-16-2024 Episodic Fluid and electrolyte disorders (20 sources) Hyponatremia; Translations: [Hypo-osmolality and hyponatremia] Onset: 04-16-2024 Episodic Intestinal obstruction without hernia (20 sources) Intestinal obstruction co-occurrent and due to decreased peristalsis; Translations: [Ileus, unspecified] Onset: 04-16-2024 04-16-2024 Episodic Malaise and fatigue (17 sources) Asthenia; Translations: [Weakness] Onset: 03-30-2024 03-28-2024 Episodic Noninfectious gastroenteritis (16 sources) Stercoral colitis; Translations: [Other specified noninfective gastroenteritis and colitis] Onset: 04-16-2024 04-16-2024 Episodic Nonspecific chest pain (1 source) Chest pain, unspecified; Translations: [Chest pain, unspecified] Onset: 04-22-2024 Episodic Open wounds of head; neck; and trunk (20 sources) Laceration of chin; Translations: [Laceration without foreign body of other part of head, initial encounter] Onset: 03-02-2024 02-28-2024 Episodic Other aftercare (1 source) MCFP (current) use of opiate analgesic; Translations: [MCFP (current) use of opiate analgesic] Onset: 02-23-2024 Episodic Other bone disease and musculoskeletal deformities (2 sources) Other specified disorders of bone density and structure, unspecified site; Translations: [Other specified disorders of bone density and structure, unspecified site] Onset: 06-28-2024 Episodic Other bone disease and musculoskeletal deformities (1 source) Other specified disorders of bone density and structure, multiple sites; Translations: [Other specified disorders of bone density and structure, multiple sites] Onset: 06-15-2024 Episodic Other circulatory disease (1 source) Hypotension, unspecified; Translations: [Hypotension, unspecified] Onset: 04-22-2024 Episodic Other gastrointestinal disorders (1 source) Other specified diseases of intestine; Translations: [Other specified diseases of intestine] Onset: 04-16-2024 Episodic Other gastrointestinal disorders (1 source) Constipation, unspecified; Translations: [Constipation, unspecified] Onset: 04-16-2024 Episodic Other infections; including parasitic (1 source) Unspecified infectious disease; Translations: [Unspecified infectious disease] Onset: 04-16-2024 Episodic Other lower respiratory disease (1 source) Shortness of breath; Translations: [Shortness of breath] Onset: 07-23-2024 Episodic Other lower respiratory disease (1 source) Abscess of lung without pneumonia; Translations: [Abscess of lung without pneumonia] Onset: 05-31-2024 Episodic Other lower respiratory disease (1 source) Other disorders of lung; Translations: [Other disorders of lung] Onset: 04-22-2024 Episodic Other lower respiratory disease (1 source) Other nonspecific abnormal finding of lung field; Translations: [Other nonspecific abnormal finding of lung field] Onset: 04-12-2024 Episodic Other non-traumatic joint disorders (16 sources) Pain in right knee; Translations: [Pain in joint, lower leg] Onset: 05-05-2024 05-05-2024 Episodic Other screening for suspected conditions (not mental disorders or infectious disease) (20 sources) Patient encounter status; Translations: [Encounter for screening for malignant neoplasm of prostate] Onset: 09-23-2014 Resolved: 09-23-2014 02-08-2016 Episodic Comment on above: Total count 588.3 on 04/08/2024 Pneumonia (except that caused by tuberculosis or sexually transmitted disease) (20 sources) Pneumonia; Translations: [Pneumonia, unspecified organism] Onset: 04-16-2024 03-28-2024 Episodic Residual codes; unclassified (1 source) Localized edema; Translations: [Localized edema] Onset: 04-22-2024 Episodic Skull and face fractures (13 sources) Fracture of mandible, unspecified, initial encounter for closed fracture; Translations: [Fracture of jaw] Onset: 03-02-2024 02-28-2024 Episodic Spondylosis; intervertebral disc disorders; other back problems (20 sources) Low back pain; Translations: [Low back pain] Onset: 04-03-2015 10-02-2021 Episodic Superficial injury; contusion (13 sources) Contusion of face; Translations: [Contusion of other part of head, initial encounter] Onset: 03-02-2024 02-28-2024 Episodic Syncope (14 sources) Syncope; Translations: [Syncope and collapse] Onset: 03-02-2024 03-10-2024 Episodic Urinary tract infections (16 sources) Acute cystitis; Translations: [Acute cystitis without hematuria] Onset: 04-16-2024 04-16-2024 Episodic Results Test Name Value Interpretation Reference Range Facility Pulmonary Visit Reporton Pulmonary Visit Report Normal [facility] Cardiology Visit Reporton Cardiology Visit Report Normal [facility] Troponin T HS 2 HRon 025 Trop T High Sen 45 ng/L High <=22 [facility] Comment on above: Performed By: #### L 499.0042 ####[facility] [address] [place], [address] Troponin T HS 4 HRon 025 Trop T High Sen 46 ng/L High <=22 [facility] Comment on above: Performed By: #### L 499.0043 ####[facility] [address] [place], [address] Troponin T.cardiac [Mass/vol ume] in Serum or Plasma by High sensitivity methodOrdered By: Cindy Aguila on 10-13-2024 Troponin T.cardiac High sensitivity method [Mass/Vol] 46 ng/L High <22 [facility] 12 Lead EKGon 10-12-2024 12 Lead EKG Normal [facility] Absolute lymphocyte countOrd ered By: Cindy Aguila on 10-12-2024 Lymphocytes Auto (Unsp spec) [#/Vol] 1.96 10*3/uL 0.83-4.51 [facility] Absolute neutrophil countOrd ered By: Cindy Aguila on 10-12-2024 Neutrophils (Bld) [#/Vol] 6.3 10*3/uL 2.0-7.7 [facility] Acid Fast Bacillus Cultureon 10-12-2024 tAFBC Normal [facility] Comment on above: Performed By: #### L 3410.9998, M300.3000, M300.2000 ####[facility] [address] [place], [address] Acid Fast Bacillus Smear/Flu oron 10-12-2024 tafb Normal [facility] Comment on above: Performed By: #### L 3410.9998, M300.3000, M300.2000 ####[facility] [address] [place], [address] Anion gap in Serum or Plasma Ordered By: Cindy Aguila on 10-12-2024 Anion gap [Moles/Vol] 12 mmol/L 07-08 [facility] Automated lymphocyte count a s percentage of total leukocytesOrdered By: Cindy Aguila on 10-12-2024 Lymphocytes/100 WBC Auto (Unsp spec) 19.9 % [facility] BUN/creatinine ratioOrdered By: Cindydale Aguila on 10-12-2024 Urea nitrogen/Creatinine [Mass ratio] 16.6 mg/mg 12-13 [facility] Basophil percentageOrdered B y: Cindy Aguila on 10-12-2024 Basophils/100 WBC (Bld) 1.4 % High 0-1 [facility] Bilirubin, totalOrdered By: Cindy Aguila on 10-12-2024 Bilirubin [Mass/Vol] 0.25 mg/dL 0.00-1.30 [facility] CBC W/Diff, Automatedon 09-24 Absolute Lymph 1.96 X10 3/uL Normal 0.83-4.51 [facility] Comment on above: Performed By: #### L 100.0100, L500.4050, L501.2450 ####[facility] [address] [place], [address] Absolute Neut 6.3 X10 3/uL Normal 2.0-7.7 [facility] Comment on above: Performed By: #### L 100.0100, L500.4050, L501.2450 ####[facility] [address] [place], [address] Basophils/100 WBC (Bld) 1.4 % High 0-1 [facility] Comment on above: Performed By: #### L 100.0100, L500.4050, L501.2450 ####[facility] [address] [place], [address] Eosinophils/100 WBC (Bld) 4.5 % Normal 0-5 [facility] Comment on above: Performed By: #### L 100.0100, L500.4050, L501.2450 ####[facility] [address] [place], [address] Erythrocyte distribution width (RBC) [Ratio] 12.5 % Normal 11.6-14.6 [facility] Comment on above: Performed By: #### L 100.0100, L500.4050, L501.2450 ####[facility] [address] [place], [address] Hematocrit (Bld) [Volume fraction] 40.8 % Normal 40-54 [facility] Comment on above: Performed By: #### L 100.0100, L500.4050, L501.2450 ####[facility] [address] [place], [address] Hemoglobin (Bld) [Mass/Vol] 13.8 g/dL Normal 13.0-16.5 [facility] Comment on above: Performed By: #### L 100.0100, L500.4050, L501.2450 ####[facility] [address] [place], [address] IG% 0.400 Normal 0.0-0.9 [facility] Comment on above: Result Comment: IG% - Immature Granulocytes (promyelocytes, myelocytes andmetamyelocytes) > 1% indicates that a LEFT SHIFT is Present. Performed By: #### L 100.0100, L500.4050, L501.2450 ####[facility] [address] [place], [address] Lymphocytes/100 WBC (Bld) 19.9 % Normal 19-41 [facility] Comment on above: Performed By: #### L 100.0100, L500.4050, L501.2450 ####[facility] [address] [place], [address] MCH (RBC) [Entitic mass] 28.8 pg Normal 27.0-32.0 [facility] Comment on above: Performed By: #### L 100.0100, L500.4050, L501.2450 ####[facility] [address] [place], [address] MCHC (RBC) [Mass/Vol] 33.8 g/dL Normal 32-36 [facility] Comment on above: Performed By: #### L 100.0100, L500.4050, L501.2450 ####[facility] [address] [place], [address] MCV (RBC) [Entitic vol] 85.0 fL Normal 80-94 [facility] Comment on above: Performed By: #### L 100.0100, L500.4050, L501.2450 ####[facility] [address] [place], [address] Monocytes/100 WBC (Bld) 10.3 % High 0-10 [facility] Comment on above: Performed By: #### L 100.0100, L500.4050, L501.2450 ####[facility] [address] [place], [address] Neutrophils/100 WBC (Bld) 63.5 % Normal 47-70 [facility] Comment on above: Performed By: #### L 100.0100, L500.4050, L501.2450 ####[facility] [address] [place], [address] Nucleated RBC (Bld) [#/Vol] 0 10*3/uL Normal 0-5 [facility] Comment on above: Performed By: #### L 100.0100, L500.4050, L501.2450 ####[facility] [address] [place], [address] Platelet mean volume (Bld) [Entitic vol] 8.3 fL Normal 6.2-12.0 [facility] Comment on above: Performed By: #### L 100.0100, L500.4050, L501.2450 ####[facility] [address] [place], [address] Platelets (Bld) [#/Vol] 396 10*3/uL Normal 150-450 [facility] Comment on above: Performed By: #### L 100.0100, L500.4050, L501.2450 ####[facility] [address] [place], [address] RBC (Bld) [#/Vol] 4.80 10*6/uL Normal 4.6-6.2 [facility] Comment on above: Performed By: #### L 100.0100, L500.4050, L501.2450 ####[facility] [address] [place], [address] RDW SD 38.8 fl Normal 35.1-43.9 [facility] Comment on above: Performed By: #### L 100.0100, L500.4050, L501.2450 ####[facility] [address] [place], [address] WBC (Bld) [#/Vol] 9.9 10*3/uL Normal 4.4-11.0 [facility] Comment on above: Performed By: #### L 100.0100, L500.4050, L501.2450 ####[facility] [address] [place], [address] CTA Chst, Abd, Pel W and/or WOon 10-12-2024 CTA Chst, Abd, Pel W and/or WO Normal [facility] Carbon dioxide, total [Moles /volume] in Central venous bloodOrdered By: Cindy Aguila on 10-12-2024 CO2 [Moles/Vol] 25.7 mmol/L 21.0-32.0 [facility] Chloride assayOrdered By: Paulo queendale Aguila on 10-12-2024 Chloride [Moles/Vol] 92 mmol/L Low 98-108 [facility] Comprehensive Metabolic Prof ilon 10-12-2024 Albumin [Mass/Vol] 4.0 g/dL Normal 3.4-4.8 [facility] Comment on above: Performed By: #### L 100.0100, L500.4050, L501.2450 ####[facility] [address] [place], [address] Albumin/Globulin [Mass ratio] 1.6 {ratio} Normal 0.9-2.4 [facility] Comment on above: Performed By: #### L 100.0100, L500.4050, L501.2450 ####[facility] [address] [place], [address] ALK PHOS 73 U/L Normal 40-129 [facility] Comment on above: Performed By: #### L 100.0100, L500.4050, L501.2450 ####[facility] [address] [place], [address] ALT [Catalytic activity/Vol] 10 U/L Normal <=46 [facility] Comment on above: Performed By: #### L 100.0100, L500.4050, L501.2450 ####[facility] [address] [place], [address] AST [Catalytic activity/Vol] 19 U/L Normal <=37 [facility] Comment on above: Performed By: #### L 100.0100, L500.4050, L501.2450 ####[facility] [address] [place], [address] Bilirubin [Mass/Vol] 0.25 mg/dL Normal 0.00-1.30 [facility] Comment on above: Performed By: #### L 100.0100, L500.4050, L501.2450 ####[facility] [address] [place], [address] BUN/CRE 16.6 RATIO Normal 10-20 [facility] Comment on above: Performed By: #### L 100.0100, L500.4050, L501.2450 ####[facility] [address] [place], [address] Calcium [Mass/Vol] 9.4 mg/dL Normal 7.6-11.0 [facility] Comment on above: Performed By: #### L 100.0100, L500.4050, L501.2450 ####[facility] [address] [place], [address] Chloride [Moles/Vol] 92 mmol/L Low 98-108 [facility] Comment on above: Performed By: #### L 100.0100, L500.4050, L501.2450 ####[facility] [address] [place], [address] CO2 [Moles/Vol] 25.7 mmol/L Normal 21.0-32.0 [facility] Comment on above: Performed By: #### L 100.0100, L500.4050, L501.2450 ####[facility] [address] [place], [address] Creatinine [Mass/Vol] 0.71 mg/dL Normal 0.70-1.20 [facility] Comment on above: Performed By: #### L 100.0100, L500.4050, L501.2450 ####[facility] [address] [place], [address] ECRCL 89.17 ml/min Normal 50-250 [facility] Comment on above: Performed By: #### L 100.0100, L500.4050, L501.2450 ####[facility] [address] [place], [address] GAP 12 Normal 5-15 [facility] Comment on above: Performed By: #### L 100.0100, L500.4050, L501.2450 ####[facility] [address] [place], [address] GFR/1.73 sq M.predicted among non-blacks MDRD (S/P/Bld) [Vol rate/Area] 103 mL/min/{1.73_m2} Normal >60 [facility] Comment on above: Result Comment: mL/m in/1.73m2 CKD-EPI Creatinine Equation (2020) Performed By: #### L 100.0100, L500.4050, L501.2450 ####[facility] [address] [place], [address] Globulin (S) [Mass/Vol] 2.5 g/dL Normal 2.2-4.2 [facility] Comment on above: Performed By: #### L 100.0100, L500.4050, L501.2450 ####[facility] [address] [place], [address] Glucose [Mass/Vol] 87 mg/dL Normal 70-99 [facility] Comment on above: Performed By: #### L 100.0100, L500.4050, L501.2450 ####[facility] [address] [place], [address] Potassium [Moles/Vol] 4.6 mmol/L Normal 3.3-5.1 [facility] Comment on above: Performed By: #### L 100.0100, L500.4050, L501.2450 ####[facility] [address] [place], [address] Sodium [Moles/Vol] 129 mmol/L Low 133-145 [facility] Comment on above: Performed By: #### L 100.0100, L500.4050, L501.2450 ####[facility] [address] [place], [address] T PROT 6.5 g/dL Normal 5.9-8.4 [facility] Comment on above: Performed By: #### L 100.0100, L500.4050, L501.2450 ####[facility] [address] [place], [address] Urea nitrogen [Mass/Vol] 12 mg/dL Normal - [facility] Comment on above: Performed By: #### L 100.0100, L500.4050, L501.2450 ####[facility] [address] [place], [address] Emergency Department Summary on 10-12-2024 Emergency Department Summary Normal [facility] Eosinophil percentageOrdered By: Cindy Aguila on 10-12-2024 Eosinophils/100 WBC (Bld) 4.5 % 0-5 [facility] Erythrocyte distribution wid th ratioOrdered By: Cindy Aguila on 10-12-2024 Erythrocyte distribution width (RBC) [Ratio] 12.5 % 11.6-14.6 [facility] Erythrocyte distribution wid th standard deviationOrdered By: Cindy Aguila on 10-12-2024 Erythrocyte distribution width (RBC) [Ratio] 38.8 fl 35.1-43.9 [facility] Glomerular filtration rate ( GFR) estimation/1.73 sq m using serum, plasma, or whole bOrdered By: Cindy Aguila on 10-12-2024 GFR/1.73 sq M.predicted among non-blacks MDRD (S/P/Bld) [Vol rate/Area] 103 mL/min/{1.73_m2} >60 [facility] Comment on above: mL/min/1.73m2 CKD-EP I Creatinine Equation (2020) Hematocrit Auto (Bld) [Volum e fraction]Ordered By: Cindy Aguila on 10-12-2024 Hematocrit (Bld) [Volume fraction] 40.8 % 40-54 [facility] Hemoglobin measurementOrdere d By: Cindy Aguila on 10-12-2024 Hemoglobin (Bld) [Mass/Vol] 13.8 g/dL 13.0-16.5 [facility] Immature granulocytes/100 WB C Auto (Bld)Ordered By: Cindy Aguila on 10-12-2024 Immature granulocytes/100 WBC (Bld) 0.400 % 0.0-0.9 [facility] Comment on above: IG% - Immature Granu locytes (promyelocytes, myelocytes and metamyelocytes) > 1% indicates that a LEFT SHIFT is Present. L501.4021on 10-12-2024 Trop T High Sen 38 ng/L High <=22 [facility] Comment on above: Performed By: #### L 501.4021 ####[facility] [address] [place], [address] Laboratory - Chemistry and C hemistry - challengeOrdered By: Cindy Aguila on 10-12-2024 AST [Catalytic activity/Vol] 19 U/L <38 [facility] Lipaseon 10-12-2024 Lipase [Catalytic activity/Vol] 25 U/L Normal 13-75 [facility] Comment on above: Result Comment: Kayleen benjamin note:LIPASE revised reference range effective 22.New Lipase methodology. Expected to produce lower valuesthan the previous assay method.NEW Reference Range: 13 - 75 U/L Performed By: #### L 100.0100, L500.4050, L501.2450 ####[facility] [address] [place], [place], [phone] Lipase measurementOrdered By : Cindy Aguila on 10-12-2024 Lipase [Catalytic activity/Vol] 25 U/L 13-75 [facility] Comment on above: Please note:LIPASE r evised reference range effective 22. New Lipase methodology. Expected to produce lower values than the previous assay method. NEW Reference Range: 13 - 75 U/L MCV (mean corpuscular volume ) determinationOrdered By: Cindy Aguila on 10-12-2024 MCV (RBC) [Entitic vol] 85.0 fL 80-94 [facility] Mean corpuscular hemoglobin (MCH) determinationOrdered By: Cindy Aguila on 10-12-2024 MCH (RBC) [Entitic mass] 28.8 pg 27.0-32.0 [facility] Mean corpuscular hemoglobin concentration (MCHC) determinationOrdered By: Cindy Aguila on 10-12-2024 MCHC (RBC) [Mass/Vol] 33.8 g/dL 32-36 [facility] Mean platelet volume determi nationOrdered By: Cindy Aguila on 10-12-2024 Platelet mean volume (Bld) [Entitic vol] 8.3 fL 6.2-12.0 [facility] Monocyte percentageOrdered B y: Cindy Aguila on 10-12-2024 Monocytes/100 WBC (Bld) 10.3 % High 0-10 [facility] Neutrophil percentageOrdered By: Cindy Aguila on 10-12-2024 Neutrophils/100 WBC (Bld) 63.5 % 47-70 [facility] Nucleated red blood cell per centageOrdered By: Cindy Aguila on 10-12-2024 Nucleated RBC/100 WBC (Bld) [Ratio] 0 % 0-5 [facility] Platelet countOrdered By: Paulo Aguila on 10-12-2024 Platelets (Bld) [#/Vol] 396 10*3/uL 150-450 [facility] Potassium measurement (mass/ volume)Ordered By: Cindy Aguila on 10-12-2024 Potassium (Unsp spec) [Mass/Vol] 4.6 mmol/L 3.3-5.1 [facility] RBC Auto (Bld) [#/Vol]Ordere d By: Cindy Aguila on 10-12-2024 RBC (Bld) [#/Vol] 4.80 10*6/uL 4.6-6.2 [facility] Serum creatinine measurement (mass/volume)Ordered By: Cindy Aguila on 10-12-2024 Creatinine [Mass/Vol] 0.71 mg/dL 0.70-1.20 [facility] Serum globulin measurementOr dered By: Cindy Aguila on 10-12-2024 Globulin (S) [Mass/Vol] 2.5 g/dL 2.2-4.2 [facility] Serum glucose measurement (m ass/volume)Ordered By: Cindy Aguila on 10-12-2024 Glucose [Mass/Vol] 87 mg/dL 70-99 [facility] Serum or plasma alanine guevara otransferase (ALT) measurementOrdered By: Cindy Aguila on 10-12-2024 ALT [Catalytic activity/Vol] 10 U/L <47 [facility] Serum or plasma albumin nimo urement (mass/volume)Ordered By: Cindy Aguila on 10-12-2024 Albumin [Mass/Vol] 4.0 g/dL 3.4-4.8 [facility] Serum or plasma albumin/glob ulin mass ratioOrdered By: Cindy Aguila on 10-12-2024 Albumin/Globulin [Mass ratio] 1.6 {ratio} 0.9-2.4 [facility] Serum or plasma alkaline jam sphatase measurementOrdered By: Cindy Aguila on 10-12-2024 ALP [Catalytic activity/Vol] 73 U/L 40-129 [facility] Serum or plasma calcium nimo urement (mass/volume)Ordered By: Cindy Aguila on 10-12-2024 Calcium [Mass/Vol] 9.4 mg/dL 7.6-11.0 [facility] Serum or plasma urea nitroge n measurement (mass/volume)Ordered By: Cindy Aguila on 10-12-2024 Urea nitrogen [Mass/Vol] 12 mg/dL 4-19 [facility] Sodium levelOrdered By: Lazaro Aguila on 10-12-2024 Sodium [Moles/Vol] 129 mmol/L Low 133-145 [facility] Total proteinOrdered By: Olga Lidia Aguila on 10-12-2024 Protein [Mass/Vol] 6.5 g/dL 5.9-8.4 [facility] Troponin T.cardiac [Mass/vol ume] in Serum or Plasma by High sensitivity methodOrdered By: Cindy Aguila on 10-12-2024 Troponin T.cardiac High sensitivity method [Mass/Vol] 45 ng/L High <22 [facility] Troponin T.cardiac High sensitivity method [Mass/Vol] 38 ng/L High <22 [facility] White blood cell (WBC) count Ordered By: Cindy Aguila on 10-12-2024 WBC (Bld) [#/Vol] 9.9 10*3/uL 4.4-11.0 [facility] Office Visit Reporton 2024 Office Visit Report Normal [facility] Pulmonary Visit Reporton Pulmonary Visit Report Normal [facility] Celiac Disease Profileon ENDOMYSIAL IGA Negative Normal Negative [facility] Comment on above: Performed By: #### L 100.9950, L300.3900, L3100.3425, L501.9520, L501.6710, L503.6150, L3100.1850, L503.6550, L3300.0960, L3410.2400, L500.4050, L504.2610 ####[facility] [address] [place], [address] tTG IGA <2 Normal 0-3 [facility] Comment on above: Result Comment: Nega tive 0 - 3 Weak Positive 4 - 10 Positive >10 Tissue Transglutaminase (tTG) has been identified as the endomysial antigen. Studies have demonstr- ated that endomysial IgA antibodies have over 99% specificity for gluten sensitive enteropathy. Performed By: #### L 100.9950, L300.3900, L3100.3425, L501.9520, L501.6710, L503.6150, L3100.1850, L503.6550, L3300.0960, L3410.2400, L500.4050, L504.2610 ####[facility] [address] [place], [address] Haptoglobinon 08-26-2024 HAPTOGLOBIN 163 mg/dL Normal 32-363 [facility] Comment on above: Result Comment: Perf ormed at: - [facility] [id number] Director: Nilton Jacobs PhD, Phone: [phone] Performed By: #### L 100.9950, L300.3900, L3100.3425, L501.9520, L501.6710, L503.6150, L3100.1850, L503.6550, L3300.0960, L3410.2400, L500.4050, L504.2610 ####[facility] [address] [place], [place], [phone](631) NICOLAS + Protein Elect, Serumon 08-26-2024 Albumin [Mass/Vol] 3.7 g/dL Normal 2.9-4.4 [facility] Comment on above: Order Comment: N Performed By: #### L 100.9950, L300.3900, L3100.3425, L501.9520, L501.6710, L503.6150, L3100.1850, L503.6550, L3300.0960, L3410.2400, L500.4050, L504.2610 ####[facility] [address] [place], [place], [phone] Albumin/Globulin [Mass ratio] 1.4 {ratio} Normal 0.7-1.7 [facility] Comment on above: Order Comment: N Performed By: #### L 100.9950, L300.3900, L3100.3425, L501.9520, L501.6710, L503.6150, L3100.1850, L503.6550, L3300.0960, L3410.2400, L500.4050, L504.2610 ####[facility] [address] [place], [place], [phone](480) FUHJA-3-DIDQ 0.3 g/dL Normal 0.0-0.4 [facility] Comment on above: Order Comment: N Performed By: #### L 100.9950, L300.3900, L3100.3425, L501.9520, L501.6710, L503.6150, L3100.1850, L503.6550, L3300.0960, L3410.2400, L500.4050, L504.2610 ####[facility] [address] [place], [address] CXLNO-1-GAIA 0.6 g/dL Normal 0.4-1.0 [facility] Comment on above: Order Comment: N Performed By: #### L 100.9950, L300.3900, L3100.3425, L501.9520, L501.6710, L503.6150, L3100.1850, L503.6550, L3300.0960, L3410.2400, L500.4050, L504.2610 ####[facility] [address] [place], [address] BETA GLOBULIN 1.0 g/dL Normal 0.7-1.3 [facility] Comment on above: Order Comment: N Performed By: #### L 100.9950, L300.3900, L3100.3425, L501.9520, L501.6710, L503.6150, L3100.1850, L503.6550, L3300.0960, L3410.2400, L500.4050, L504.2610 ####[facility] [address] [place], [address] GAMMA GLOBULIN 0.9 g/dL Normal 0.4-1.8 [facility] Comment on above: Order Comment: N Performed By: #### L 100.9950, L300.3900, L3100.3425, L501.9520, L501.6710, L503.6150, L3100.1850, L503.6550, L3300.0960, L3410.2400, L500.4050, L504.2610 ####[facility] [address] [place], [address] Globulin (S) [Mass/Vol] 2.8 g/dL Normal 2.2-3.9 [facility] Comment on above: Order Comment: N Performed By: #### L 100.9950, L300.3900, L3100.3425, L501.9520, L501.6710, L503.6150, L3100.1850, L503.6550, L3300.0960, L3410.2400, L500.4050, L504.2610 ####[facility] [address] [place], [address] NICOLAS RESULT,S Comment Normal . [facility] Comment on above: Order Comment: N Result Comment: No m onoclonality detected. Performed By: #### L 100.9950, L300.3900, L3100.3425, L501.9520, L501.6710, L503.6150, L3100.1850, L503.6550, L3300.0960, L3410.2400, L500.4050, L504.2610 ####[facility] [address] [place], [address] IMMUNOGLOB A QN 271 mg/dL Normal 61-437 [facility] Comment on above: Order Comment: N Performed By: #### L 100.9950, L300.3900, L3100.3425, L501.9520, L501.6710, L503.6150, L3100.1850, L503.6550, L3300.0960, L3410.2400, L500.4050, L504.2610 ####[facility] [address] [place], [place], [phone](928) IMMUNOGLOB G QN 849 mg/dL Normal 603-1613 [facility] Comment on above: Order Comment: N Performed By: #### L 100.9950, L300.3900, L3100.3425, L501.9520, L501.6710, L503.6150, L3100.1850, L503.6550, L3300.0960, L3410.2400, L500.4050, L504.2610 ####[facility] [address] [place], [place], [phone](504) IMMUNOGLOB M QN 111 mg/dL Normal 20-172 [facility] Comment on above: Order Comment: N Performed By: #### L 100.9950, L300.3900, L3100.3425, L501.9520, L501.6710, L503.6150, L3100.1850, L503.6550, L3300.0960, L3410.2400, L500.4050, L504.2610 ####[facility] [address] [place], [place], [phone]([phone] M-Jas Not Observed Normal Not Observed [facility] Comment on above: Order Comment: N Performed By: #### L 100.9950, L300.3900, L3100.3425, L501.9520, L501.6710, L503.6150, L3100.1850, L503.6550, L3300.0960, L3410.2400, L500.4050, L504.2610 ####[facility] [address] [place], [place], [phone](436) NOTE: Comment Normal . [facility] Comment on above: Order Comment: N Result Comment: Prot ein electrophoresis scan will follow via computer,mail, or wet inspector optical glass delivery. Performed By: #### L 100.9950, L300.3900, L3100.3425, L501.9520, L501.6710, L503.6150, L3100.1850, L503.6550, L3300.0960, L3410.2400, L500.4050, L504.2610 ####[facility] [address] [place], [place], [phone](404) Protein [Mass/Vol] 6.5 g/dL Normal 6.0-8.5 [facility] Comment on above: Order Comment: N Performed By: #### L 100.9950, L300.3900, L3100.3425, L501.9520, L501.6710, L503.6150, L3100.1850, L503.6550, L3300.0960, L3410.2400, L500.4050, L504.2610 ####[facility] [address] [place], [place], [phone] Vitamin D 1,25-Dihydroxyon 0 08-26-2024 VIT D 1,25 DIHY 46.2 pg/mL Normal 24.8-81.5 [facility] Comment on above: Result Comment: Perf ormed at: - [facility] [id number] Director: Shira Sawyer MD, Phone: [phone] Performed By: #### L 100.9950, L300.3900, L3100.3425, L501.9520, L501.6710, L503.6150, L3100.1850, L503.6550, L3300.0960, L3410.2400, L500.4050, L504.2610 ####[facility] [address] [place], [place], [phone] Albumin Elph [Mass/Vol]Order ed By: Walt Turner on 08-23-2024 Albumin [Mass/Vol] 3.7 g/dL 2.9-4.4 [facility] Anion gap in Serum or Plasma Ordered By: Walt Turner on 08-23-2024 Anion gap [Moles/Vol] 11 mmol/L 5-15 [facility] BUN/creatinine ratioOrdered By: Walt Turner on 08-23-2024 Urea nitrogen/Creatinine [Mass ratio] 11.7 mg/mg 10- [facility] Bilirubin, totalOrdered By: Walt Turner on 08-23-2024 Bilirubin [Mass/Vol] 0.43 mg/dL 0.00-1.30 [facility] CRPon 08-23-2024 C-REACTIVE PROT 9.80 mg/L High 0.0-3.0 [facility] Comment on above: Performed By: #### L 100.9950, L300.3900, L3100.3425, L501.9520, L501.6710, L503.6150, L3100.1850, L503.6550, L3300.0960, L3410.2400, L500.4050, L504.2610 ####[facility] [address] [place], [place], [phone] Carbon dioxide, total [Moles /volume] in Central venous bloodOrdered By: Walt Turner on 08-23-2024 CO2 [Moles/Vol] 28.9 mmol/L 21.0-32.0 [facility] Chloride assayOrdered By: Ra maame Turner on 08-23-2024 Chloride [Moles/Vol] 88 mmol/L Low 98-108 [facility] Comprehensive Metabolic Prof ilon 08-23-2024 Albumin [Mass/Vol] 4.1 g/dL Normal 3.4-4.8 [facility] Comment on above: Performed By: #### L 100.9950, L300.3900, L3100.3425, L501.9520, L501.6710, L503.6150, L3100.1850, L503.6550, L3300.0960, L3410.2400, L500.4050, L504.2610 ####[facility] [address] [place], [place], [phone] Albumin/Globulin [Mass ratio] 1.5 {ratio} Normal 0.9-2.4 [facility] Comment on above: Performed By: #### L 100.9950, L300.3900, L3100.3425, L501.9520, L501.6710, L503.6150, L3100.1850, L503.6550, L3300.0960, L3410.2400, L500.4050, L504.2610 ####[facility] [address] [place], [place], [phone] ALK PHOS 84 U/L Normal 40-129 [facility] Comment on above: Performed By: #### L 100.9950, L300.3900, L3100.3425, L501.9520, L501.6710, L503.6150, L3100.1850, L503.6550, L3300.0960, L3410.2400, L500.4050, L504.2610 ####[facility] [address] [place], [address] ALT [Catalytic activity/Vol] 19 U/L Normal <=46 [facility] Comment on above: Performed By: #### L 100.9950, L300.3900, L3100.3425, L501.9520, L501.6710, L503.6150, L3100.1850, L503.6550, L3300.0960, L3410.2400, L500.4050, L504.2610 ####[facility] [address] [place], [place], [phone] AST [Catalytic activity/Vol] 27 U/L Normal <=37 [facility] Comment on above: Performed By: #### L 100.9950, L300.3900, L3100.3425, L501.9520, L501.6710, L503.6150, L3100.1850, L503.6550, L3300.0960, L3410.2400, L500.4050, L504.2610 ####[facility] [address] [place], [place], [phone] Bilirubin [Mass/Vol] 0.43 mg/dL Normal 0.00-1.30 [facility] Comment on above: Performed By: #### L 100.9950, L300.3900, L3100.3425, L501.9520, L501.6710, L503.6150, L3100.1850, L503.6550, L3300.0960, L3410.2400, L500.4050, L504.2610 ####[facility] [address] [place], [place], [phone](458) BUN/CRE 11.7 RATIO Normal 10-20 [facility] Comment on above: Performed By: #### L 100.9950, L300.3900, L3100.3425, L501.9520, L501.6710, L503.6150, L3100.1850, L503.6550, L3300.0960, L3410.2400, L500.4050, L504.2610 ####[facility] [address] [place], [place], [phone](482) Calcium [Mass/Vol] 9.3 mg/dL Normal 7.6-11.0 [facility] Comment on above: Performed By: #### L 100.9950, L300.3900, L3100.3425, L501.9520, L501.6710, L503.6150, L3100.1850, L503.6550, L3300.0960, L3410.2400, L500.4050, L504.2610 ####[facility] [address] [place], [place], [phone] Chloride [Moles/Vol] 88 mmol/L Low 98-108 [facility] Comment on above: Performed By: #### L 100.9950, L300.3900, L3100.3425, L501.9520, L501.6710, L503.6150, L3100.1850, L503.6550, L3300.0960, L3410.2400, L500.4050, L504.2610 ####[facility] [address] [place], [place], [phone](982) CO2 [Moles/Vol] 28.9 mmol/L Normal 21.0-32.0 [facility] Comment on above: Performed By: #### L 100.9950, L300.3900, L3100.3425, L501.9520, L501.6710, L503.6150, L3100.1850, L503.6550, L3300.0960, L3410.2400, L500.4050, L504.2610 ####[facility] [address] [place], [place], [phone](166) Creatinine [Mass/Vol] 0.80 mg/dL Normal 0.70-1.20 [facility] Comment on above: Performed By: #### L 100.9950, L300.3900, L3100.3425, L501.9520, L501.6710, L503.6150, L3100.1850, L503.6550, L3300.0960, L3410.2400, L500.4050, L504.2610 ####[facility] [address] [place], [place], [phone](906) GAP 11 Normal 5-15 [facility] Comment on above: Performed By: #### L 100.9950, L300.3900, L3100.3425, L501.9520, L501.6710, L503.6150, L3100.1850, L503.6550, L3300.0960, L3410.2400, L500.4050, L504.2610 ####[facility] [address] [facility] [address] [place], [place], [phone] GFR/1.73 sq M.predicted among non-blacks MDRD (S/P/Bld) [Vol rate/Area] 100 mL/min/{1.73_m2} Normal >60 [facility] Comment on above: Result Comment: mL/m in/1.73m2 CKD-EPI Creatinine Equation (2020) Performed By: #### L 100.9950, L300.3900, L3100.3425, L501.9520, L501.6710, L503.6150, L3100.1850, L503.6550, L3300.0960, L3410.2400, L500.4050, L504.2610 ####[facility] [address] [place], [place], [phone](541) Globulin (S) [Mass/Vol] 2.8 g/dL Normal 2.2-4.2 [facility] Comment on above: Performed By: #### L 100.9950, L300.3900, L3100.3425, L501.9520, L501.6710, L503.6150, L3100.1850, L503.6550, L3300.0960, L3410.2400, L500.4050, L504.2610 ####[facility] [address] [place], [address] Glucose [Mass/Vol] 91 mg/dL Normal 70-99 [facility] Comment on above: Performed By: #### L 100.9950, L300.3900, L3100.3425, L501.9520, L501.6710, L503.6150, L3100.1850, L503.6550, L3300.0960, L3410.2400, L500.4050, L504.2610 ####[facility] [address] [place], [address] Potassium [Moles/Vol] 4.2 mmol/L Normal 3.3-5.1 [facility] Comment on above: Performed By: #### L 100.9950, L300.3900, L3100.3425, L501.9520, L501.6710, L503.6150, L3100.1850, L503.6550, L3300.0960, L3410.2400, L500.4050, L504.2610 ####[facility] [address] [place], [address] Sodium [Moles/Vol] 128 mmol/L Low 133-145 [facility] Comment on above: Performed By: #### L 100.9950, L300.3900, L3100.3425, L501.9520, L501.6710, L503.6150, L3100.1850, L503.6550, L3300.0960, L3410.2400, L500.4050, L504.2610 ####[facility] [address] [place], [address] T PROT 7.0 g/dL Normal 5.9-8.4 [facility] Comment on above: Performed By: #### L 100.9950, L300.3900, L3100.3425, L501.9520, L501.6710, L503.6150, L3100.1850, L503.6550, L3300.0960, L3410.2400, L500.4050, L504.2610 ####[facility] [address] [place], [place], [phone] Urea nitrogen [Mass/Vol] 9 mg/dL Normal 4-19 [facility] Comment on above: Performed By: #### L 100.9950, L300.3900, L3100.3425, L501.9520, L501.6710, L503.6150, L3100.1850, L503.6550, L3300.0960, L3410.2400, L500.4050, L504.2610 ####[facility] [address] [place], [place], [phone] Ferritinon 08-23-2024 Ferritin [Mass/Vol] 51 ng/mL Normal 37-417 [facility] Comment on above: Performed By: #### L 100.9950, L300.3900, L3100.3425, L501.9520, L501.6710, L503.6150, L3100.1850, L503.6550, L3300.0960, L3410.2400, L500.4050, L504.2610 ####[facility] [address] [place], [address] Gastroenterology Visit Repor ton 08-23-2024 Gastroenterology Visit Report Normal [facility] Glomerular filtration rate ( GFR) estimation/1.73 sq m using serum, plasma, or whole bOrdered By: Walt Turner on 08-23-2024 GFR/1.73 sq M.predicted among non-blacks MDRD (S/P/Bld) [Vol rate/Area] 100 mL/min/{1.73_m2} >60 [facility] Comment on above: mL/min/1.73m2 CKD-EP I Creatinine Equation (2020) International normalized rat io (INR) calculationOrdered By: Walt Turner on 08-23-2024 INR Coag (Bld) [Relative time] 1.0 {INR} [facility] Interpretation of serum or p lasma protein pattern by immunofixation (narrative resultOrdered By: Walt Turner on 08-23-2024 Protein Fractions Immunofixation Gera [Interp] Not Observed g/dL Not Observed [facility] Ironon 08-23-2024 Iron [Mass/Vol] 52 ug/dL Low 65-175 [facility] Comment on above: Performed By: #### L 100.9950, L300.3900, L3100.3425, L501.9520, L501.6710, L503.6150, L3100.1850, L503.6550, L3300.0960, L3410.2400, L500.4050, L504.2610 ####[facility] [address] [place], [place], [phone] Iron measurement (mass/mass) Ordered By: Walt Turner on 08-23-2024 Iron (Unsp spec) [Mass/Mass] 52 ug/dL Low 65-175 [facility] LDHon 08-23-2024 LDH 178 U/L Normal 87-241 [facility] Comment on above: Order Comment: 1 Performed By: #### L 100.9950, L300.3900, L3100.3425, L501.9520, L501.6710, L503.6150, L3100.1850, L503.6550, L3300.0960, L3410.2400, L500.4050, L504.2610 ####[facility] [address] [place], [place], [id number] Laboratory - Chemistry and C hemistry - challengeOrdered By: Walt Turner on 08-23-2024 AST [Catalytic activity/Vol] 27 U/L <38 [facility] Lactate dehydrogenase (LDH) measurementOrdered By: Walt Turner on 08-23-2024 LDH [Catalytic activity/Vol] 178 U/L 87-241 [facility] No Panel InformationOrdered By: Walt Turner on 08-23-2024 Addendum Document Comment . [facility] Comment on above: Protein electrophore sis scan will follow via computer,mail, or wet inspector optical glass delivery. Potassium measurement (mass/ volume)Ordered By: Walt Turner on 08-23-2024 Potassium (Unsp spec) [Mass/Vol] 4.2 mmol/L 3.3-5.1 [facility] Prothrombin Time w/INRon INR Coag (PPP) [Relative time] 1.0 {INR} Normal [facility] Comment on above: Performed By: #### L 100.9950, L300.3900, L3100.3425, L501.9520, L501.6710, L503.6150, L3100.1850, L503.6550, L3300.0960, L3410.2400, L500.4050, L504.2610 ####[facility] [address] [place], [place], [id number] PT Coag (PPP) [Time] 12.9 s Normal 11.7-14.9 [facility] Comment on above: Performed By: #### L 100.9950, L300.3900, L3100.3425, L501.9520, L501.6710, L503.6150, L3100.1850, L503.6550, L3300.0960, L3410.2400, L500.4050, L504.2610 ####[facility] [address] [place], [address] Prothrombin timeOrdered By: Walt Turner on 08-23-2024 PT Coag (PPP) [Time] 12.9 s 11.7-14.9 [facility] Retic Panelon 08-23-2024 IM RET FRACTION 4.50 Normal 3.00-15.90 [facility] Comment on above: Performed By: #### L 100.9950, L300.3900, L3100.3425, L501.9520, L501.6710, L503.6150, L3100.1850, L503.6550, L3300.0960, L3410.2400, L500.4050, L504.2610 ####[facility] [address] [place], [address] RET-HE 32.3 pg Normal [facility] Comment on above: Performed By: #### L 100.9950, L300.3900, L3100.3425, L501.9520, L501.6710, L503.6150, L3100.1850, L503.6550, L3300.0960, L3410.2400, L500.4050, L504.2610 ####[facility] [address] [place], [address] Retic Count 1.33 Normal 0.5-1.5 [facility] Comment on above: Performed By: #### L 100.9950, L300.3900, L3100.3425, L501.9520, L501.6710, L503.6150, L3100.1850, L503.6550, L3300.0960, L3410.2400, L500.4050, L504.2610 ####[facility] [address] [place], [address] Reticulocyte hemoglobin equi valent (RET-He) measurementOrdered By: Walt Turner on 08-23-2024 Hemoglobin (Reticulocytes) [Entitic mass] 32.3 pg [facility] Reticulocytes Auto (Bld) [#/ Vol]Ordered By: Walt Turner on 08-23-2024 Reticulocytes/100 RBC (Bld) 1.33 % 0.5-1.5 [facility] Serum creatinine measurement (mass/volume)Ordered By: Walt Turner on 08-23-2024 Creatinine [Mass/Vol] 0.80 mg/dL 0.70-1.20 [facility] Serum globulin measurementOr dered By: Walt Turner on 08-23-2024 Globulin (S) [Mass/Vol] 2.8 g/dL 2.2-3.9 [facility] Serum glucose measurement (m ass/volume)Ordered By: Walt Turner on 08-23-2024 Glucose [Mass/Vol] 91 mg/dL 70-99 [facility] Serum or plasma C reactive p rotein measurement (mass/volume)Ordered By: Walt Turner on 08-23-2024 CRP [Mass/Vol] 9.80 mg/L High 0.0-3.0 [facility] Serum or plasma IgA measurem ent (mass/volume)Ordered By: Walt Turner on 08-23-2024 IgA [Mass/Vol] 271 mg/dL 61-437 [facility] Serum or plasma IgG measurem ent (mass/volume)Ordered By: Walt Turner on 08-23-2024 IgG [Mass/Vol] 849 mg/dL 603-1613 [facility] Serum or plasma alanine guevara otransferase (ALT) measurementOrdered By: Walt Turner on 08-23-2024 ALT [Catalytic activity/Vol] 19 U/L <47 [facility] Serum or plasma albumin nimo urement (mass/volume)Ordered By: Walt Turner on 08-23-2024 Albumin [Mass/Vol] 4.1 g/dL 3.4-4.8 [facility] Serum or plasma albumin/glob ulin mass ratioOrdered By: Walt Turner on 08-23-2024 Albumin/Globulin [Mass ratio] 1.5 {ratio} 0.9-2.4 [facility] Serum or plasma alkaline jam sphatase measurementOrdered By: Walt Turner on 08-23-2024 ALP [Catalytic activity/Vol] 84 U/L 40-129 [facility] Serum or plasma alpha 1 glob ulin measurement by electrophoresis (mass/volume)Ordered By: Walt Turner on 08-23-2024 Alpha 1 globulin Elph [Mass/Vol] 0.3 g/dL 0.0-0.4 [facility] Alpha 1 globulin Elph [Mass/Vol] 0.6 g/dL 0.4-1.0 [facility] Serum or plasma beta globuli n measurement by electrophoresis (mass/volume)Ordered By: Walt Turner on 08-23-2024 Beta globulin Elph [Mass/Vol] 1.0 g/dL 0.7-1.3 [facility] Serum or plasma calcitriol m easurement (mass/volume)Ordered By: Walt Turner on 08-23-2024 1,25-dihydroxyvitamin D3 [Mass/Vol] 46.2 pg/mL 24.8-81.5 [facility] Comment on above: Performed at: [email or web address] [employer] [address] [id number] Director: Shira Sawyer MD, Phone: [phone] Serum or plasma calcium nimo urement (mass/volume)Ordered By: Walt Turner on 08-23-2024 Calcium [Mass/Vol] 9.3 mg/dL 7.6-11.0 [facility] Serum or plasma ferritin iván surement (mass/volume)Ordered By: Walt Turner on 08-23-2024 Ferritin [Mass/Vol] 51 ng/mL 37-417 [facility] Serum or plasma gamma globul in measurement by electrophoresis (mass/volume)Ordered By: Walt Turner on 08-23-2024 Gamma globulin Elph [Mass/Vol] 0.9 g/dL 0.4-1.8 [facility] Serum or plasma immunoelectr ophoresis interpretation (nominal result)Ordered By: Walt Turner on 08-23-2024 Interpretation IEP [Interp] Comment . [facility] Comment on above: No monoclonality det ected. Serum or plasma protein nimo urement (mass/volume)Ordered By: Walt Turner on 08-23-2024 Protein [Mass/Vol] 6.5 g/dL 6.0-8.5 [facility] Serum or plasma urea nitroge n measurement (mass/volume)Ordered By: Walt Turner on 08-23-2024 Urea nitrogen [Mass/Vol] 9 mg/dL 4-19 [facility] Serum tissue transglutaminas e (tTG) IgA antibody assay (units/volume)Ordered By: Walt Turner on 08-23-2024 tTG IgA Qn (S) <2 U/mL 0-3 [facility] Comment on above: Negative 0 - 3 Weak Positive 4 - 10 Positive >10 Tissue Transglutaminase (tTG) has been identified as the endomysial antigen. Studies have demonstr- ated that endomysial IgA antibodies have over 99% specificity for gluten sensitive enteropathy. Sodium levelOrdered By: Pearl Zamorano on 08-23-2024 Sodium [Moles/Vol] 128 mmol/L Low 133-145 [facility] TSH DL <= 0.005 mIU/L QnOrde red By: Walt Turner on 08-23-2024 TSH Qn 0.676 uIU/mL 0.300-4.20 0 [facility] Thyroid Stim Hormone (TSH)on 08-23-2024 TSH 0.676 uIU/mL Normal 0.300-4.20 0 [facility] Comment on above: Performed By: #### L 100.9950, L300.3900, L3100.3425, L501.9520, L501.6710, L503.6150, L3100.1850, L503.6550, L3300.0960, L3410.2400, L500.4050, L504.2610 ####[facility] [address] [facility], [address] Total proteinOrdered By: Adrian Turner on 08-23-2024 Protein [Mass/Vol] 7.0 g/dL 5.9-8.4 [facility] PT D/C Summary (1)on 025 PT D/C Summary (1) Normal [facility] Inital Evaluation (1) - PTon 07-12-2024 Inital Evaluation (1) - PT Normal [facility] Absolute lymphocyte countOrd ered By: Jonah Aguilar on 07-10-2024 Lymphocytes Auto (Unsp spec) [#/Vol] 0.54 10*3/uL Low 0.83-4.51 [facility] Absolute lymphocyte countOrd ered By: Andres Juarez on 07-10-2024 Lymphocytes Auto (Unsp spec) [#/Vol] 2.34 10*3/uL 0.83-4.51 [facility] Absolute neutrophil countOrd ered By: Jonah Aguilar on 07-10-2024 Neutrophils (Bld) [#/Vol] 9.8 10*3/uL High 2.0-7.7 [facility] Anion gap in Serum or Plasma Ordered By: Jonah Aguilar on 07-10-2024 Anion gap [Moles/Vol] 12 mmol/L 07-08 [facility] Anion gap in Serum or Plasma Ordered By: Andres Juarez on 07-10-2024 Anion gap [Moles/Vol] 13 mmol/L 07-08 [facility] Automated lymphocyte count a s percentage of total leukocytesOrdered By: Jonah Aguilar on 07-10-2024 Lymphocytes/100 WBC Auto (Unsp spec) 5.1 % Low [facility] Automated lymphocyte count a s percentage of total leukocytesOrdered By: Andres Juarez on 07-10-2024 Lymphocytes/100 WBC Auto (Unsp spec) 18.9 % Low - [facility] BUN/creatinine ratioOrdered By: Jonah Aguilar on 07-10-2024 Urea nitrogen/Creatinine [Mass ratio] 19.9 mg/mg 12-13 [facility] BUN/creatinine ratioOrdered By: Andres Juarez on 07-10-2024 Urea nitrogen/Creatinine [Mass ratio] 23.8 mg/mg High 12-13 [facility] Basic Metabolic Profile (BMP )on 07-10-2024 BUN/CRE 23.8 RATIO High [facility] Comment on above: Performed By: #### L 100.0100, L501.5200, L500.2500, L503.7984 ####[facility] [address] [place], [place], [id number] Calcium [Mass/Vol] 9.3 mg/dL Normal 7.6-11.0 [facility] Comment on above: Performed By: #### L 100.0100, L501.5200, L500.2500, L503.7505 ####[facility] [address] [place], [address] Chloride [Moles/Vol] 90 mmol/L Low 98-108 [facility] Comment on above: Performed By: #### L 100.0100, L501.5200, L500.2500, L503.7505 ####[facility] [address] [place], [address] CO2 [Moles/Vol] 26.0 mmol/L Normal 21.0-32.0 [facility] Comment on above: Performed By: #### L 100.0100, L501.5200, L500.2500, L503.7505 ####[facility] [address] [place], [address] Creatinine [Mass/Vol] 0.62 mg/dL Low 0.70-1.20 [facility] Comment on above: Performed By: #### L 100.0100, L501.5200, L500.2500, L503.7505 ####[facility] [address] [place], [address] ECRCL 107.31 ml/min Normal 50-250 [facility] Comment on above: Performed By: #### L 100.0100, L501.5200, L500.2500, L503.7505 ####[facility] [address] [place], [address] GAP 13 Normal 5-15 [facility] Comment on above: Performed By: #### L 100.0100, L501.5200, L500.2500, L503.7505 ####[facility] [address] [place], [address] GFR/1.73 sq M.predicted among non-blacks MDRD (S/P/Bld) [Vol rate/Area] 108 mL/min/{1.73_m2} Normal >60 [facility] Comment on above: Result Comment: mL/m in/1.73m2 CKD-EPI Creatinine Equation (2020) Performed By: #### L 100.0100, L501.5200, L500.2500, L503.7505 ####[facility] [address] [place], [address] Glucose [Mass/Vol] 85 mg/dL Normal 70-99 [facility] Comment on above: Performed By: #### L 100.0100, L501.5200, L500.2500, L503.7505 ####[facility] [address] [place], [address] Potassium [Moles/Vol] 4.0 mmol/L Normal 3.3-5.1 [facility] Comment on above: Performed By: #### L 100.0100, L501.5200, L500.2500, L503.7505 ####[facility] [address] [place], [address] Sodium [Moles/Vol] 129 mmol/L Low 133-145 [facility] Comment on above: Performed By: #### L 100.0100, L501.5200, L500.2500, L503.7505 ####[facility] [address] [place], [address] Urea nitrogen [Mass/Vol] 15 mg/dL Normal 4-19 [facility] Comment on above: Performed By: #### L 100.0100, L501.5200, L500.2500, L503.7505 ####[facility] [address] [place], [address] Basophil percentageOrdered B y: Jonah Aguilar on 07-10-2024 Basophils/100 WBC (Bld) 0.7 % 0-1 [facility] Basophil percentageOrdered B y: Andres Andes on 07-10-2024 Basophils/100 WBC (Bld) 1.0 % 0-1 [facility] Bilirubin directOrdered By: Jonah Aguilar on 07-10-2024 Bilirubin.direct [Mass/Vol] 0.10 mg/dL 0.00-0.30 [facility] Bilirubin, Directon 07-11-19 25 Bilirubin.direct [Mass/Vol] 0.10 mg/dL Normal 0.00-0.30 [facility] Comment on above: Performed By: #### L 501.9520, L501.4700, L501.5200, L500.4050, L100.0100, L300.3900, L501.2300 ####[facility] [address] [place], [place], [phone]) Bilirubin, totalOrdered By: Jonah Aguilar on 07-10-2024 Bilirubin [Mass/Vol] 0.18 mg/dL 0.00-1.30 [facility] CBC W/Diff, Automatedon 06-24 Absolute Lymph 0.54 X10 3/uL Low 0.83-4.51 [facility] Comment on above: Performed By: #### L 501.9520, L501.4700, L501.5200, L500.4050, L100.0100, L300.3900, L501.2300 ####[facility] [address] [place], [place], [phone] Absolute Neut 9.8 X10 3/uL High 2.0-7.7 [facility] Comment on above: Performed By: #### L 501.9520, L501.4700, L501.5200, L500.4050, L100.0100, L300.3900, L501.2300 ####[facility] [address] [place], [place], [phone] Basophils/100 WBC (Bld) 0.7 % Normal 0-1 [facility] Comment on above: Performed By: #### L 501.9520, L501.4700, L501.5200, L500.4050, L100.0100, L300.3900, L501.2300 ####[facility] [address] [place], [address] Eosinophils/100 WBC (Bld) 0.3 % Normal 0-5 [facility] Comment on above: Performed By: #### L 501.9520, L501.4700, L501.5200, L500.4050, L100.0100, L300.3900, L501.2300 ####[facility] [address] [place], [address] Erythrocyte distribution width (RBC) [Ratio] 13.6 % Normal 11.6-14.6 [facility] Comment on above: Performed By: #### L 501.9520, L501.4700, L501.5200, L500.4050, L100.0100, L300.3900, L501.2300 ####[facility] [address] [place], [address] Hematocrit (Bld) [Volume fraction] 33.2 % Low 40-54 [facility] Comment on above: Performed By: #### L 501.9520, L501.4700, L501.5200, L500.4050, L100.0100, L300.3900, L501.2300 ####[facility] [address] [place], [address] Hemoglobin (Bld) [Mass/Vol] 11.1 g/dL Low 13.0-16.5 [facility] Comment on above: Performed By: #### L 501.9520, L501.4700, L501.5200, L500.4050, L100.0100, L300.3900, L501.2300 ####[facility] [address] [place], [address] IG% 0.400 Normal 0.0-0.9 [facility] Comment on above: Result Comment: IG% - Immature Granulocytes (promyelocytes, myelocytes andmetamyelocytes) > 1% indicates that a LEFT SHIFT is Present. Performed By: #### L 501.9520, L501.4700, L501.5200, L500.4050, L100.0100, L300.3900, L501.2300 ####[facility] [address] [place], [address] Lymphocytes/100 WBC (Bld) 5.1 % Low 19-41 [facility] Comment on above: Performed By: #### L 501.9520, L501.4700, L501.5200, L500.4050, L100.0100, L300.3900, L501.2300 ####[facility] [address] [place], [address] MCH (RBC) [Entitic mass] 29.3 pg Normal 27.0-32.0 [facility] Comment on above: Performed By: #### L 501.9520, L501.4700, L501.5200, L500.4050, L100.0100, L300.3900, L501.2300 ####[facility] [address] [place], [address] MCHC (RBC) [Mass/Vol] 33.4 g/dL Normal 32-36 [facility] Comment on above: Performed By: #### L 501.9520, L501.4700, L501.5200, L500.4050, L100.0100, L300.3900, L501.2300 ####[facility] [address] [place], [address] MCV (RBC) [Entitic vol] 87.6 fL Normal 80-94 [facility] Comment on above: Performed By: #### L 501.9520, L501.4700, L501.5200, L500.4050, L100.0100, L300.3900, L501.2300 ####[facility] [address] [place], [address] Monocytes/100 WBC (Bld) 0.9 % Normal 0-10 [facility] Comment on above: Performed By: #### L 501.9520, L501.4700, L501.5200, L500.4050, L100.0100, L300.3900, L501.2300 ####[facility] [address] [place], [address] Neutrophils/100 WBC (Bld) 92.6 % High 47-70 [facility] Comment on above: Performed By: #### L 501.9520, L501.4700, L501.5200, L500.4050, L100.0100, L300.3900, L501.2300 ####[facility] [address] [place], [address] Nucleated RBC (Bld) [#/Vol] 0 10*3/uL Normal 0-5 [facility] Comment on above: Performed By: #### L 501.9520, L501.4700, L501.5200, L500.4050, L100.0100, L300.3900, L501.2300 ####[facility] [address] [place], [address] Platelet mean volume (Bld) [Entitic vol] 8.5 fL Normal 6.2-12.0 [facility] Comment on above: Performed By: #### L 501.9520, L501.4700, L501.5200, L500.4050, L100.0100, L300.3900, L501.2300 ####[facility] [address] [place], [address] Platelets (Bld) [#/Vol] 459 10*3/uL High 150-450 [facility] Comment on above: Performed By: #### L 501.9520, L501.4700, L501.5200, L500.4050, L100.0100, L300.3900, L501.2300 ####[facility] [address] [place], [address] RBC (Bld) [#/Vol] 3.79 10*6/uL Low 4.6-6.2 [facility] Comment on above: Performed By: #### L 501.9520, L501.4700, L501.5200, L500.4050, L100.0100, L300.3900, L501.2300 ####[facility] [address] [place], [address] RDW SD 44.3 fl High 35.1-43.9 [facility] Comment on above: Performed By: #### L 501.9520, L501.4700, L501.5200, L500.4050, L100.0100, L300.3900, L501.2300 ####[facility] [address] [place], [address] WBC (Bld) [#/Vol] 10.6 10*3/uL Normal 4.4-11.0 [facility] Comment on above: Performed By: #### L 501.9520, L501.4700, L501.5200, L500.4050, L100.0100, L300.3900, L501.2300 ####[facility] [address] [place], [address] Absolute Lymph 2.34 X10 3/uL Normal 0.83-4.51 [facility] Comment on above: Performed By: #### L 100.0100, L501.5200, L500.2500, L503.7505 ####[facility] [address] [place], [address] Absolute Neut 8.4 X10 3/uL High 2.0-7.7 [facility] Comment on above: Performed By: #### L 100.0100, L501.5200, L500.2500, L503.7505 ####[facility] [address] [place], [address] Basophils/100 WBC (Bld) 1.0 % Normal 0-1 [facility] Comment on above: Performed By: #### L 100.0100, L501.5200, L500.2500, L503.7505 ####[facility] [address] [place], [address] Eosinophils/100 WBC (Bld) 3.3 % Normal 0-5 [facility] Comment on above: Performed By: #### L 100.0100, L501.5200, L500.2500, L503.7505 ####[facility] [address] [place], [address] Erythrocyte distribution width (RBC) [Ratio] 13.7 % Normal 11.6-14.6 [facility] Comment on above: Performed By: #### L 100.0100, L501.5200, L500.2500, L503.7505 ####[facility] [address] [place], [address] Hematocrit (Bld) [Volume fraction] 36.0 % Low 40-54 [facility] Comment on above: Performed By: #### L 100.0100, L501.5200, L500.2500, L503.7505 ####[facility] [address] [place], [address] Hemoglobin (Bld) [Mass/Vol] 11.9 g/dL Low 13.0-16.5 [facility] Comment on above: Performed By: #### L 100.0100, L501.5200, L500.2500, L503.7505 ####[facility] [address] [place], [address] IG% 0.400 Normal 0.0-0.9 [facility] Comment on above: Result Comment: IG% - Immature Granulocytes (promyelocytes, myelocytes andmetamyelocytes) > 1% indicates that a LEFT SHIFT is Present. Performed By: #### L 100.0100, L501.5200, L500.2500, L503.7505 ####[facility] [address] [place], [address] Lymphocytes/100 WBC (Bld) 18.9 % Low 19-41 [facility] Comment on above: Performed By: #### L 100.0100, L501.5200, L500.2500, L503.7505 ####[facility] [address] [place], [address] MCH (RBC) [Entitic mass] 29.0 pg Normal 27.0-32.0 [facility] Comment on above: Performed By: #### L 100.0100, L501.5200, L500.2500, L503.7505 ####[facility] [address] [place], [address] MCHC (RBC) [Mass/Vol] 33.1 g/dL Normal 32-36 [facility] Comment on above: Performed By: #### L 100.0100, L501.5200, L500.2500, L503.7505 ####[facility] [address] [place], [address] MCV (RBC) [Entitic vol] 87.8 fL Normal 80-94 [facility] Comment on above: Performed By: #### L 100.0100, L501.5200, L500.2500, L503.7505 ####[facility] [address] [place], [address] Monocytes/100 WBC (Bld) 9.0 % Normal 0-10 [facility] Comment on above: Performed By: #### L 100.0100, L501.5200, L500.2500, L503.7505 ####[facility] [address] [place], [address] Neutrophils/100 WBC (Bld) 67.4 % Normal 47-70 [facility] Comment on above: Performed By: #### L 100.0100, L501.5200, L500.2500, L503.7505 ####[facility] [address] [place], [address] Nucleated RBC (Bld) [#/Vol] 0 10*3/uL Normal 0-5 [facility] Comment on above: Performed By: #### L 100.0100, L501.5200, L500.2500, L503.7505 ####[facility] [address] [place], [address] Platelet mean volume (Bld) [Entitic vol] 8.3 fL Normal 6.2-12.0 [facility] Comment on above: Performed By: #### L 100.0100, L501.5200, L500.2500, L503.7505 ####[facility] [address] [place], [address] Platelets (Bld) [#/Vol] 476 10*3/uL High 150-450 [facility] Comment on above: Performed By: #### L 100.0100, L501.5200, L500.2500, L503.7505 ####[facility] [address] [place], [address] RBC (Bld) [#/Vol] 4.10 10*6/uL Low 4.6-6.2 [facility] Comment on above: Performed By: #### L 100.0100, L501.5200, L500.2500, L503.7505 ####[facility] [address] [place], [address] RDW SD 43.9 fl Normal 35.1-43.9 [facility] Comment on above: Performed By: #### L 100.0100, L501.5200, L500.2500, L503.7505 ####[facility] [address] [place], [address] WBC (Bld) [#/Vol] 12.4 10*3/uL High 4.4-11.0 [facility] Comment on above: Performed By: #### L 100.0100, L501.5200, L500.2500, L503.7505 ####[facility] [address] [place], [address] Carbon dioxide, total [Moles /volume] in Central venous bloodOrdered By: Jonah Aguilar on 07-10-2024 CO2 [Moles/Vol] 25.8 mmol/L 21.0-32.0 [facility] Carbon dioxide, total [Moles /volume] in Central venous bloodOrdered By: Andres Juarez on 07-10-2024 CO2 [Moles/Vol] 26.0 mmol/L 21.0-32.0 [facility] Chest PA and Lateralon 07-10 Chest PA and Lateral Normal [facility] Chloride assayOrdered By: Davonte Aguilar on 07-10-2024 Chloride [Moles/Vol] 92 mmol/L Low 98-108 [facility] Chloride assayOrdered By: Surekha Juarez on 07-10-2024 Chloride [Moles/Vol] 90 mmol/L Low 98-108 [facility] Comprehensive Metabolic Prof ilon 07-10-2024 Albumin [Mass/Vol] 3.9 g/dL Normal 3.4-4.8 [facility] Comment on above: Performed By: #### L 501.9520, L501.4700, L501.5200, L500.4050, L100.0100, L300.3900, L501.2300 ####[facility] [address] [place], [address] Albumin/Globulin [Mass ratio] 1.4 {ratio} Normal 0.9-2.4 [facility] Comment on above: Performed By: #### L 501.9520, L501.4700, L501.5200, L500.4050, L100.0100, L300.3900, L501.2300 ####[facility] [address] [place], [address] ALK PHOS 83 U/L Normal 40-129 [facility] Comment on above: Performed By: #### L 501.9520, L501.4700, L501.5200, L500.4050, L100.0100, L300.3900, L501.2300 ####[facility] [address] [place], [address] ALT [Catalytic activity/Vol] 10 U/L Normal <=46 [facility] Comment on above: Performed By: #### L 501.9520, L501.4700, L501.5200, L500.4050, L100.0100, L300.3900, L501.2300 ####[facility] [address] [place], [address] AST [Catalytic activity/Vol] 21 U/L Normal <=37 [facility] Comment on above: Performed By: #### L 501.9520, L501.4700, L501.5200, L500.4050, L100.0100, L300.3900, L501.2300 ####[facility] [address] [place], [address] Bilirubin [Mass/Vol] 0.18 mg/dL Normal 0.00-1.30 [facility] Comment on above: Performed By: #### L 501.9520, L501.4700, L501.5200, L500.4050, L100.0100, L300.3900, L501.2300 ####[facility] [address] [place], [address] BUN/CRE 19.9 RATIO Normal 10-20 [facility] Comment on above: Performed By: #### L 501.9520, L501.4700, L501.5200, L500.4050, L100.0100, L300.3900, L501.2300 ####[facility] [address] [place], [address] Calcium [Mass/Vol] 8.9 mg/dL Normal 7.6-11.0 [facility] Comment on above: Performed By: #### L [id number], L501.4700, L501.5200, L500.4050, L100.0100, L300.3900, L501.2300 ####[facility] [address] [place], [address] Chloride [Moles/Vol] 92 mmol/L Low 98-108 [facility] Comment on above: Performed By: #### L [id number], L501.4700, L501.5200, L500.4050, L100.0100, L300.3900, L501.2300 ####[facility] [address] [place], [address] CO2 [Moles/Vol] 25.8 mmol/L Normal 21.0-32.0 [facility] Comment on above: Performed By: #### L [id number], L501.4700, L501.5200, L500.4050, L100.0100, L300.3900, L501.2300 ####[facility] [address] [place], [address] Creatinine [Mass/Vol] 0.74 mg/dL Normal 0.70-1.20 [facility] Comment on above: Performed By: #### L 501.9520, L501.4700, L501.5200, L500.4050, L100.0100, L300.3900, L501.2300 ####[facility] [address] [place], [address] ECRCL 84.91 ml/min Normal 50-250 [facility] Comment on above: Performed By: #### L 501.9520, L501.4700, L501.5200, L500.4050, L100.0100, L300.3900, L501.2300 ####[facility] [facility] [address] [place], [address] GAP 12 Normal 5-15 [facility] Comment on above: Performed By: #### L 501.9520, L501.4700, L501.5200, L500.4050, L100.0100, L300.3900, L501.2300 ####[facility] [address] [place], [address] GFR/1.73 sq M.predicted among non-blacks MDRD (S/P/Bld) [Vol rate/Area] 103 mL/min/{1.73_m2} Normal >60 [facility] Comment on above: Result Comment: mL/m in/1.73m2 CKD-EPI Creatinine Equation (2020) Performed By: #### L 501.9520, L501.4700, L501.5200, L500.4050, L100.0100, L300.3900, L501.2300 ####[facility] [address] [place], [address] Globulin (S) [Mass/Vol] 2.8 g/dL Normal 2.2-4.2 [facility] Comment on above: Performed By: #### L 501.9520, L501.4700, L501.5200, L500.4050, L100.0100, L300.3900, L501.2300 ####[facility] [address] [place], [address] Glucose [Mass/Vol] 150 mg/dL High 70-99 [facility] Comment on above: Performed By: #### L 501.9520, L501.4700, L501.5200, L500.4050, L100.0100, L300.3900, L501.2300 ####[facility] [address] [place], [address] Potassium [Moles/Vol] 4.0 mmol/L Normal 3.3-5.1 [facility] Comment on above: Performed By: #### L 501.9520, L501.4700, L501.5200, L500.4050, L100.0100, L300.3900, L501.2300 ####[facility] [address] [place], [address] Sodium [Moles/Vol] 130 mmol/L Low 133-145 [facility] Comment on above: Performed By: #### L 501.9520, L501.4700, L501.5200, L500.4050, L100.0100, L300.3900, L501.2300 ####[facility] [address] [place], [address] T PROT 6.7 g/dL Normal 5.9-8.4 [facility] Comment on above: Performed By: #### L 501.9520, L501.4700, L501.5200, L500.4050, L100.0100, L300.3900, L501.2300 ####[facility] [address] [place], [address] Urea nitrogen [Mass/Vol] 15 mg/dL Normal 4-19 [facility] Comment on above: Performed By: #### L 501.9520, L501.4700, L501.5200, L500.4050, L100.0100, L300.3900, L501.2300 ####[facility] [address] [place], [address] Emergency Department Summary on 07-10-2024 Emergency Department Summary Normal [facility] Eosinophil percentageOrdered By: Jonah Aguilar on 07-10-2024 Eosinophils/100 WBC (Bld) 0.3 % 0-5 [facility] Eosinophil percentageOrdered By: Andres Juarez on 07-10-2024 Eosinophils/100 WBC (Bld) 3.3 % 0-5 [facility] Erythrocyte distribution wid th ratioOrdered By: Jonah Aguilar on 07-10-2024 Erythrocyte distribution width (RBC) [Ratio] 13.6 % 11.6-14.6 [facility] Erythrocyte distribution wid th ratioOrdered By: Andres Juarez on 07-10-2024 Erythrocyte distribution width (RBC) [Ratio] 13.7 % 11.6-14.6 [facility] Erythrocyte distribution wid th standard deviationOrdered By: Jonah Aguilar on 07-10-2024 Erythrocyte distribution width (RBC) [Ratio] 44.3 fl High 35.1-43.9 [facility] Erythrocyte distribution wid th standard deviationOrdered By: Andres Juarez on 07-10-2024 Erythrocyte distribution width (RBC) [Ratio] 43.9 fl 35.1-43.9 [facility] Glomerular filtration rate ( GFR) estimation/1.73 sq m using serum, plasma, or whole bOrdered By: Jonah Aguilar on 07-10-2024 GFR/1.73 sq M.predicted among non-blacks MDRD (S/P/Bld) [Vol rate/Area] 103 mL/min/{1.73_m2} >60 [facility] Comment on above: mL/min/1.73m2 CKD-EP I Creatinine Equation (2020) Glomerular filtration rate ( GFR) estimation/1.73 sq m using serum, plasma, or whole bOrdered By: Andres Juarez on 07-10-2024 GFR/1.73 sq M.predicted among non-blacks MDRD (S/P/Bld) [Vol rate/Area] 108 mL/min/{1.73_m2} >60 [facility] H AND P Exam - Hospital[facility] 07-10-2024 H&P Exam - Hospitalist Normal [facility] Hematocrit Auto (Bld) [Volum e fraction]Ordered By: Jonah Aguilar on 07-10-2024 Hematocrit (Bld) [Volume fraction] 33.2 % Low 40-54 [facility] Hematocrit Auto (Bld) [Volum e fraction]Ordered By: Andres Juarez on 07-10-2024 Hematocrit (Bld) [Volume fraction] 36.0 % Low 40-54 [facility] Hemoglobin measurementOrdere d By: Jonah Aguilar on 07-10-2024 Hemoglobin (Bld) [Mass/Vol] 11.1 g/dL Low 13.0-16.5 [facility] Hemoglobin measurementOrdere d By: Andres Juarez on 07-10-2024 Hemoglobin (Bld) [Mass/Vol] 11.9 g/dL Low 13.0-16.5 [facility] Immature granulocytes/100 WB C Auto (Bld)Ordered By: Jonah Aguilar on 07-10-2024 Immature granulocytes/100 WBC (Bld) 0.400 % 0.0-0.9 [facility] Comment on above: IG% - Immature Granu locytes (promyelocytes, myelocytes and metamyelocytes) > 1% indicates that a LEFT SHIFT is Present. Immature granulocytes/100 WB C Auto (Bld)Ordered By: Andres Juarez on 07-10-2024 Immature granulocytes/100 WBC (Bld) 0.400 % 0.0-0.9 [facility] International normalized rat io (INR) calculationOrdered By: Jonah Aguilar on 07-10-2024 INR Coag (Bld) [Relative time] 0.9 {INR} [facility] L503.7505on 07-10-2024 Natriuretic peptide B (Bld) [Mass/Vol] 258 pg/mL Normal <=900 [facility] Comment on above: Result Comment: Hear t Failure Unlikely: < 300 pg/mLHeart Failure Likely< 50 Years: > 450 pg/mL50-75 Years: > 900 pg/mL>75 Years: > 1800 pg/mL Performed By: #### L 100.0100, L501.5200, L500.2500, L503.7505 ####[facility] [address] [place], [address] Laboratory - Chemistry and C hemistry - challengeOrdered By: Jonah Aguilar on 07-10-2024 AST [Catalytic activity/Vol] 21 U/L <38 [facility] Liver Profileon 07-10-2024 ALB Normal 3.4-4.8 [facility] Comment on above: Result Comment: SEE C53 Performed By: #### L 500.3400 ####[facility] [address] [place], [address] ALK PHOS Normal 40-129 [facility] Comment on above: Result Comment: SEE C53 Performed By: #### L 500.3400 ####[facility] [address] [place], [address] ALT Normal <=46 [facility] Comment on above: Result Comment: SEE C53 Performed By: #### L 500.3400 ####[facility] [address] [place], [address] AST Normal <=37 [facility] Comment on above: Result Comment: SEE C53 Performed By: #### L 500.3400 ####[facility] [address] [place], [address] D BILI Normal 0.00-0.30 [facility] Comment on above: Result Comment: SEE C53 Performed By: #### L 500.3400 ####[facility] [address] [place], [address] T BILI Normal 0.00-1.30 [facility] Comment on above: Result Comment: SEE C53 Performed By: #### L 500.3400 ####[facility] [address] [place], [address] T PROT Normal 5.9-8.4 [facility] Comment on above: Result Comment: SEE C53 Performed By: #### L 500.3400 ####[facility] [address] [place], [place], [address] MCV (mean corpuscular volume ) determinationOrdered By: Jonah Aguilar on 07-10-2024 MCV (RBC) [Entitic vol] 87.6 fL 80-94 [facility] MCV (mean corpuscular volume ) determinationOrdered By: Andres Juarez on 07-10-2024 MCV (RBC) [Entitic vol] 87.8 fL 80-94 [facility] Magnesiumon 07-10-2024 Magnesium [Mass/Vol] 2.0 mg/dL Normal 1.5-2.2 [facility] Comment on above: Performed By: #### L 501.9520, L501.4700, L501.5200, L500.4050, L100.0100, L300.3900, L501.2300 ####[facility] [address] [place], [place], [phone] Magnesium [Mass/Vol] 2.0 mg/dL Normal 1.5-2.2 [facility] Comment on above: Performed By: #### L 100.0100, L501.5200, L500.2500, L503.7505 ####[facility] [address] [place], [place], [address] Magnesium measurement (mass/ volume)Ordered By: Jonah Aguilar on 07-10-2024 Magnesium (Unsp spec) [Mass/Vol] 2.0 mg/dL 1.5-2.2 [facility] Magnesium measurement (mass/ volume)Ordered By: Andres Juarez on 07-10-2024 Magnesium (Unsp spec) [Mass/Vol] 2.0 mg/dL 1.5-2.2 [facility] Mean corpuscular hemoglobin (MCH) determinationOrdered By: Jonah Aguilar on 07-10-2024 MCH (RBC) [Entitic mass] 29.3 pg 27.0-32.0 [facility] Mean corpuscular hemoglobin (MCH) determinationOrdered By: Andres Juarez on 07-10-2024 MCH (RBC) [Entitic mass] 29.0 pg 27.0-32.0 [facility] Mean corpuscular hemoglobin concentration (MCHC) determinationOrdered By: Jonah Aguilar on 07-10-2024 MCHC (RBC) [Mass/Vol] 33.4 g/dL 32-36 [facility] Mean platelet volume determi nationOrdered By: Jonah Aguilar on 07-10-2024 Platelet mean volume (Bld) [Entitic vol] 8.5 fL 6.2-12.0 [facility] Monocyte percentageOrdered B y: Jonah Aguilar on 07-10-2024 Monocytes/100 WBC (Bld) 0.9 % 0-10 [facility] Monocyte percentageOrdered B y: Andres Juarez on 07-10-2024 Monocytes/100 WBC (Bld) 9.0 % 0-10 [facility] Natriuretic peptide.B prohor savanna N-Terminal [Mass/volume] in Serum or PlasmaOrdered By: Andres Juarez on 07-10-2024 Natriuretic peptide.B prohormone N-Terminal [Mass/Vol] 258 pg/mL <900 [facility] Comment on above: Heart Failure Unlike ly: < 300 pg/mLHeart Failure Likely< 50 Years: > 450 pg/mL50-75 Years: > 900 pg/mL>75 Years: > 1800 pg/mL Neutrophil percentageOrdered By: Jonah Aguilar on 07-10-2024 Neutrophils/100 WBC (Bld) 92.6 % High 47-70 [facility] Neutrophil percentageOrdered By: Andres Juarez on 07-10-2024 Neutrophils/100 WBC (Bld) 67.4 % 47-70 [facility] No Panel InformationOrdered By: Jonah Aguilar on 07-10-2024 21 U/L <38 [facility] Nucleated red blood cell per centageOrdered By: Jonah Aguilar on 07-10-2024 Nucleated RBC/100 WBC (Bld) [Ratio] 0 % 0-5 [facility] Phosphoruson 07-10-2024 Phosphate [Mass/Vol] 4.0 mg/dL Normal 2.7-4.5 [facility] Comment on above: Performed By: #### L 501.9520, L501.4700, L501.5200, L500.4050, L100.0100, L300.3900, L501.2300 ####[facility] [address] [place], [address] Platelet countOrdered By: Davonte Aguilar on 07-10-2024 Platelets (Bld) [#/Vol] 459 10*3/uL High 150-450 [facility] Platelet countOrdered By: Surekha Juarez on 07-10-2024 Platelets (Bld) [#/Vol] 476 10*3/uL High 150-450 [facility] Potassium measurement (mass/ volume)Ordered By: Jonah Aguilar on 07-10-2024 Potassium (Unsp spec) [Mass/Vol] 4.0 mmol/L 3.3-5.1 [facility] Potassium measurement (mass/ volume)Ordered By: Andres Juarez on 07-10-2024 Potassium (Unsp spec) [Mass/Vol] 4.0 mmol/L 3.3-5.1 [facility] Prothrombin Time w/INRon INR Coag (PPP) [Relative time] 0.9 {INR} Normal [facility] Comment on above: Performed By: #### L 501.9520, L501.4700, L501.5200, L500.4050, L100.0100, L300.3900, L501.2300 ####[facility] [address] [place], [address] PT Coag (PPP) [Time] 12.4 s Normal 11.7-14.9 [facility] Comment on above: Performed By: #### L 501.9520, L501.4700, L501.5200, L500.4050, L100.0100, L300.3900, L501.2300 ####[facility] [address] [place], [address] Prothrombin timeOrdered By: Jonah Aguilar on 07-10-2024 PT Coag (PPP) [Time] 12.4 s 11.7-14.9 [facility] RBC Auto (Bld) [#/Vol]Ordere d By: Jonah Aguilar on 07-10-2024 RBC (Bld) [#/Vol] 3.79 10*6/uL Low 4.6-6.2 [facility] RBC Auto (Bld) [#/Vol]Ordere d By: Andres Juarez on 07-10-2024 RBC (Bld) [#/Vol] 4.10 10*6/uL Low 4.6-6.2 [facility] RESPIRATORY PANEL MOLECULARo n 07-10-2024 RP PANEL Normal [facility] Comment on above: Performed By: #### M 100.638 ####[facility] [address] [place], [place], [id number] Respiratory pathogens detect ion panel by molecular detection methodOrdered By: Jonah Aguilar on 07-10-2024 Respiratory pathogens DNA and RNA panel ANU+probe (Resp) [facility] Serum creatinine measurement (mass/volume)Ordered By: Jonah Aguilar on 07-10-2024 Creatinine [Mass/Vol] 0.74 mg/dL 0.70-1.20 [facility] Serum creatinine measurement (mass/volume)Ordered By: Andres Juarez on 07-10-2024 Creatinine [Mass/Vol] 0.62 mg/dL Low 0.70-1.20 [facility] Serum globulin measurementOr dered By: Jonah Aguilar on 07-10-2024 Globulin (S) [Mass/Vol] 2.8 g/dL 2.2-4.2 [facility] Serum glucose measurement (m ass/volume)Ordered By: Jonah Aguilar on 07-10-2024 Glucose [Mass/Vol] 150 mg/dL High 70- [facility] Serum glucose measurement (m ass/volume)Ordered By: Anders Juarez on 07-10-2024 Glucose [Mass/Vol] 85 mg/dL 70-99 [facility] Serum or plasma alanine guevara otransferase (ALT) measurementOrdered By: Jonah Aguilar on 07-10-2024 ALT [Catalytic activity/Vol] 10 U/L <47 [facility] Serum or plasma albumin nimo urement (mass/volume)Ordered By: Jonah Aguilra on 07-10-2024 Albumin [Mass/Vol] 3.9 g/dL 3.4-4.8 [facility] Serum or plasma albumin/glob ulin mass ratioOrdered By: Jonah Aguilar on 07-10-2024 Albumin/Globulin [Mass ratio] 1.4 {ratio} 0.9-2.4 [facility] Serum or plasma alkaline jam sphatase measurementOrdered By: Jonah Aguilar on 07-10-2024 ALP [Catalytic activity/Vol] 83 U/L 40-129 [facility] Serum or plasma calcium nimo urement (mass/volume)Ordered By: Jonah Aguilar on 07-10-2024 Calcium [Mass/Vol] 8.9 mg/dL 7.6-11.0 [facility] Serum or plasma calcium nimo urement (mass/volume)Ordered By: Andres Juarez on 07-10-2024 Calcium [Mass/Vol] 9.3 mg/dL 7.6-11.0 [facility] Serum or plasma urea nitroge n measurement (mass/volume)Ordered By: Jonah Aguilar on 07-10-2024 Urea nitrogen [Mass/Vol] 15 mg/dL - [facility] Serum or plasma urea nitroge n measurement (mass/volume)Ordered By: Andres Juarez on 07-10-2024 Urea nitrogen [Mass/Vol] 15 mg/dL - [facility] Sodium levelOrdered By: Aydee Aguilar on 07-10-2024 Sodium [Moles/Vol] 130 mmol/L Low 133-145 [facility] Sodium levelOrdered By: Jeff Juarez on 07-10-2024 Sodium [Moles/Vol] 129 mmol/L Low 133-145 [facility] TSH DL <= 0.005 mIU/L QnOrde red By: Jonah Aguilar on 07-10-2024 TSH Qn 0.910 uIU/mL 0.300-4.20 0 [facility] Thyroid Stim Hormone (TSH)on 07-10-2024 TSH 0.910 uIU/mL Normal 0.300-4.20 0 [facility] Comment on above: Performed By: #### L 501.1643, L501.4700, L501.5200, L500.4050, L100.0100, L300.3900, L501.2300 ####[facility] [address] [place], [address] Total proteinOrdered By: Geovanni Aguilar on 07-10-2024 Protein [Mass/Vol] 6.7 g/dL 5.9-8.4 [facility] White blood cell (WBC) count Ordered By: Jonah Aguilar on 07-10-2024 WBC (Bld) [#/Vol] 10.6 10*3/uL 4.4-11.0 [facility] White blood cell (WBC) count Ordered By: Andres Juarez on 07-10-2024 WBC (Bld) [#/Vol] 12.4 10*3/uL High 4.4-11.0 [facility] CBC W/Diff, Automatedon PATH REV N/A Normal [facility] Comment on above: Result Comment: Slid e sent to [facility] for pathology review. [facility] AMENDED REPORT 07/01/24 0736 PATH REV previously reported as: Reviewed Performed By: #### L 501.6710, L100.0100, L101.9900, L500.2500 ####[facility] [address] [place], [address] Anion gap in Serum or Plasma Ordered By: Xavi Fortune on 06-30-2024 Anion gap [Moles/Vol] 13 mmol/L 07-08 [facility] BUN/creatinine ratioOrdered By: Xavi Fortune on 06-30-2024 Urea nitrogen/Creatinine [Mass ratio] 19.3 mg/mg - [facility] Basic Metabolic Profile (BMP )on 06-30-2024 BUN/CRE 19.3 RATIO Normal 12-13 [facility] Comment on above: Performed By: #### L 501.9520, L500.2500, L501.5200, L509.1000, L501.2300 ####[facility] [address] [place], [address] Calcium [Mass/Vol] 9.0 mg/dL Normal 7.6-11.0 [facility] Comment on above: Performed By: #### L 501.9520, L500.2500, L501.5200, L509.1000, L501.2300 ####[facility] [address] [place], [address] Chloride [Moles/Vol] 96 mmol/L Low 98-108 [facility] Comment on above: Performed By: #### L 501.9520, L500.2500, L501.5200, L509.1000, L501.2300 ####[facility] [address] [place], [address] CO2 [Moles/Vol] 26.6 mmol/L Normal 21.0-32.0 [facility] Comment on above: Performed By: #### L 501.9520, L500.2500, L501.5200, L509.1000, L501.2300 ####[facility] [address] [place], [address] Creatinine [Mass/Vol] 0.69 mg/dL Low 0.70-1.20 [facility] Comment on above: Performed By: #### L 501.9520, L500.2500, L501.5200, L509.1000, L501.2300 ####[facility] [address] [place], [address] GAP 13 Normal 5-15 [facility] Comment on above: Performed By: #### L 501.9520, L500.2500, L501.5200, L509.1000, L501.2300 ####[facility] [address] [place], [address] GFR/1.73 sq M.predicted among non-blacks MDRD (S/P/Bld) [Vol rate/Area] 104 mL/min/{1.73_m2} Normal >60 [facility] Comment on above: Result Comment: mL/m in/1.73m2 CKD-EPI Creatinine Equation (2020) Performed By: #### L 501.9520, L500.2500, L501.5200, L509.1000, L501.2300 ####[facility] [address] [place], [address] Glucose [Mass/Vol] 115 mg/dL High 70-99 [facility] Comment on above: Performed By: #### L 501.9520, L500.2500, L501.5200, L509.1000, L501.2300 ####[facility] [address] [place], [address] Potassium [Moles/Vol] 4.1 mmol/L Normal 3.3-5.1 [facility] Comment on above: Performed By: #### L 501.9520, L500.2500, L501.5200, L509.1000, L501.2300 ####[facility] [address] [place], [address] Sodium [Moles/Vol] 135 mmol/L Normal 133-145 [facility] Comment on above: Performed By: #### L 501.9520, L500.2500, L501.5200, L509.1000, L501.2300 ####[facility] [address] [place], [address] Urea nitrogen [Mass/Vol] 13 mg/dL Normal 4-19 [facility] Comment on above: Performed By: #### L 501.9520, L500.2500, L501.5200, L509.1000, L501.2300 ####[facility] [address] [place], [address] Carbon dioxide, total [Moles /volume] in Central venous bloodOrdered By: Xavi Fortune on 06-30-2024 CO2 [Moles/Vol] 26.6 mmol/L 21.0-32.0 [facility] Chloride assayOrdered By: Ahsan Fortune on 06-30-2024 Chloride [Moles/Vol] 96 mmol/L Low 98-108 [facility] Glomerular filtration rate ( GFR) estimation/1.73 sq m using serum, plasma, or whole bOrdered By: Xavi Fortune on 06-30-2024 GFR/1.73 sq M.predicted among non-blacks MDRD (S/P/Bld) [Vol rate/Area] 104 mL/min/{1.73_m2} >60 [facility] Comment on above: mL/min/1.73m2 CKD-EP I Creatinine Equation (2020) Magnesiumon 06-30-2024 Magnesium [Mass/Vol] 2.0 mg/dL Normal 1.5-2.2 [facility] Comment on above: Performed By: #### L 501.9520, L500.2500, L501.5200, L509.1000, L501.2300 ####[facility] [address] [place], [address] Magnesium measurement (mass/ volume)Ordered By: Xavi Fortune on 06-30-2024 Magnesium (Unsp spec) [Mass/Vol] 2.0 mg/dL 1.5-2.2 [facility] PTHINon 06-30-2024 PTH 21 pg/mL Normal 11-61 [facility] Comment on above: Performed By: #### L 501.9520, L500.2500, L501.5200, L509.1000, L501.2300 ####[facility] [address] [place], [address] Phosphoruson 06-30-2024 Phosphate [Mass/Vol] 3.6 mg/dL Normal 2.7-4.5 [facility] Comment on above: Performed By: #### L 501.9520, L500.2500, L501.5200, L509.1000, L501.2300 ####[facility] [address] [place], [address] Potassium measurement (mass/ volume)Ordered By: Xavi Fortune on 06-30-2024 Potassium (Unsp spec) [Mass/Vol] 4.1 mmol/L 3.3-5.1 [facility] Serum creatinine measurement (mass/volume)Ordered By: Xavi Fortune on 06-30-2024 Creatinine [Mass/Vol] 0.69 mg/dL Low 0.70-1.20 [facility] Serum glucose measurement (m ass/volume)Ordered By: Xavi Fortune on 06-30-2024 Glucose [Mass/Vol] 115 mg/dL High 70-99 [facility] Serum or plasma calcium nimo urement (mass/volume)Ordered By: Xavi Fortune on 06-30-2024 Calcium [Mass/Vol] 9.0 mg/dL 7.6-11.0 [facility] Serum or plasma urea nitroge n measurement (mass/volume)Ordered By: Xavi Fortune on 06-30-2024 Urea nitrogen [Mass/Vol] 13 mg/dL 4-19 [facility] Sodium levelOrdered By: Alexus Fortune on 06-30-2024 Sodium [Moles/Vol] 135 mmol/L 133-145 [facility] TSH DL <= 0.005 mIU/L QnOrde red By: Xavi Fortune on 06-30-2024 TSH Qn 1.300 uIU/mL 0.300-4.20 0 [facility] Thyroid Stim Hormone (TSH)on 06-30-2024 TSH 1.300 uIU/mL Normal 0.300-4.20 0 [facility] Comment on above: Performed By: #### L 501.9520, L500.2500, L501.5200, L509.1000, L501.2300 ####[facility] [address] [place], [place], [address] Dexa Bone Density Studyon Dexa Bone Density Study Normal [facility] Erythrocyte Sed Rateon 06-09 SED RATE 74 mm/hr High 0-20 [facility] Comment on above: Result Comment: SEE REPORT IN PATIENT'S EMR AMENDED REPORT 06/09/24 1033 SED RATE previously reported as: 74 H mm/hr Performed By: #### L 501.6710, L100.0100, L101.9900, L500.2500 ####[facility] [address] [place], [address] Crystals, Body Fluidon 06-07 PATH REV Reviewed Normal [facility] Comment on above: Order Comment: Comme nts: right knee Result Comment: SEE REPORT IN PATIENT'S EMR AMENDED REPORT 06/07/24 1406 PATH REV previously reported as: Will follow Performed By: #### M 100.4001, L200.4175, M100.2900, M100.2000, L200.0400 ####[facility] [address] [place], [address] Thoracic Spine 2 Viewson Thoracic Spine 2 Views Normal [facility] Pulmonary Visit Reporton Pulmonary Visit Report Normal [facility] Chest without Contraston Chest without Contrast Normal [facility] 12 Lead EKG performed by BMS on 05-26-2024 12 Lead EKG performed by BMS Normal [facility] Cardiology Visit Reporton Cardiology Visit Report Normal [facility] Gastroenterology Visit Repor ton 05-24-2024 Gastroenterology Visit Report Normal [facility] L3410.9998on 05-15-2024 [facility] [place]. COMMENT Normal . [facility] Comment on above: Order Comment: SPUTU [id number] CULTURE SPUTUM Result Comment: Test Ordered: [id number] Acid Fast Smear+CultureAFB Specimen Processing Note: CB Concentration Reference Range: .Acid Fast Smear Negative CB Reference Range: .Acid Fast Culture Negative CB Reference Range: .No acid fast bacilli isolated after 6 weeks.Performed at: - [facility] [address] [id number] Director: Nilton Jacobs PhD, Phone: [phone] Performed By: #### L 3410.9998 ####[facility] [address] [place], [address] Order Comment: TO BE COLLECTED ON 03/29/24- FIRST MORNING [id number] SMEAR CULTURE Order Comment: [id number] CULTURE SMEAR Performed By: #### L 3410.9998, M300.3000, M300.2000 ####[facility] [address] [place], [address] Body Fluid Culton 05-11-2024 [facility] . . right knee No growth in 5 days. Normal [facility] Comment on above: Performed By: #### M 100.4001, L200.4175, M100.2900, M100.2000, L200.0400 ####[facility] [address], [address] 102on 05-10-2024 102 HNO ID: [id number] Author: ROGER RANKIN HDA Service: ? Author Type: ? Type: 102 Filed: 05/10/2024 09:06 Note Text: Code Status: Full Code Normal [facility] Culture, Anaerobic Any Sourc marti 05-10-2024 CUAN . . right knee No growth in 5 days. Normal [facility] Comment on above: Performed By: #### M 100.4001, L200.4175, M100.2900, M100.2000, L200.0400 ####[facility] [address] [place], [address] Gram Stainon 05-06-2024 GS . . right knee Centrifuged Specimen? Culture performed on centrifuged specimen Gram Stain No organisms seen 2+ White Blood Cells Normal [facility] Comment on above: Performed By: #### M 100.4001, L200.4175, M100.2900, M100.2000, L200.0400 ####[facility] [address] [place], [address] Synovial Fluid RBC, WBC AND Diffon 05-06-2024 Lymphocytes (Bld) [#/Vol] 4 10*3/uL Normal [facility] Comment on above: Order Comment: Comme nts: right knee Performed By: #### M 100.4001, L200.4175, M100.2900, M100.2000, L200.0400 ####[facility] [address] [place], [address] Monocytes (Bld) [#/Vol] 11 10*3/uL Normal [facility] Comment on above: Order Comment: Comme nts: right knee Performed By: #### M 100.4001, L200.4175, M100.2900, M100.2000, L200.0400 ####[facility] [address] [place], [address] NEUTROPHIL 85 High 0-25 [facility] Comment on above: Order Comment: Comme nts: right knee Performed By: #### M 100.4001, L200.4175, M100.2900, M100.2000, L200.0400 ####[facility] [address] [place], [address] Absolute lymphocyte countOrd ered By: Canelo Heredia on 05-05-2024 Lymphocytes Auto (Unsp spec) [#/Vol] 1.63 10*3/uL 0.83-4.51 [facility] Absolute neutrophil countOrd ered By: Canelo Heredia on 05-05-2024 Neutrophils (Bld) [#/Vol] 7.8 10*3/uL High 2.0-7.7 [facility] Absolute neutrophil count 7.8 X10^3/uL High 2.0-7.7 [facility] Anaerobic cultureOrdered By: Canelo Heredia on 05-05-2024 Bacteria identified Anaer cx Nom (Unsp spec) No growth in 5 days. [facility] Anion gap [Moles/Vol]Ordered By: Canelo Heredia on 05-05-2024 Anion gap in Serum or Plasma 14 5-15 [facility] Anion gap in Serum or Plasma Ordered By: Canelo Heredia on 05-05-2024 Anion gap [Moles/Vol] 14 mmol/L 5-15 [facility] Appearance (Syn fld)Ordered By: Canelo Heredia on 05-05-2024 Determination of appearance of synovial fluid (nominal result) Cloudy CLEAR [facility] Automated lymphocyte count a s percentage of total leukocytesOrdered By: Canelo Heredia on 05-05-2024 Lymphocytes/100 WBC Auto (Unsp spec) 14.7 % Low 19-41 [facility] Automated synovial fluid richie kocytes count (number/volume)Ordered By: Canelo Heredia on 05-05-2024 WBC Auto (Syn fld) [#/Vol] 24.6500 10^3/uL High 0.000-0.00 2 [facility] Automated synovial fluid mon onuclear cell count (number/volume)Ordered By: Canelo Heredia on 05-05-2024 Mononuclear cells Auto (Syn fld) [#/Vol] 2.246 10^3/ul [facility] Automated synovial fluid jimena ymorphonuclear cell count (number/volume)Ordered By: Canelo Heredia on 05-05-2024 Polymorphonuclear cells Auto (Syn fld) [#/Vol] 22.432 10^3/uL [facility] Automated synovial fluid jimena ymorphonuclear cells as percentage of leukocytesOrdered By: Canelo Heredia on 05-05-2024 Polymorphonuclear cells/100 WBC Auto (Syn fld) 91.0 % [facility] BUN/creatinine ratioOrdered By: Canelo Heredia on 05-05-2024 Urea nitrogen/Creatinine [Mass ratio] 20.2 mg/mg High 10- [facility] BUN/creatinine ratio 20.2 RATIO High 10- [facility] Basic Metabolic Profile (BMP )on 05-05-2024 BUN/CRE 20.2 RATIO High 10- [facility] Comment on above: Performed By: #### L 501.6710, L100.0100, L101.9900, L500.2500 ####[facility] [address] [place], [place], [id number] Calcium [Mass/Vol] 9.4 mg/dL Normal 7.6-11.0 [facility] Comment on above: Performed By: #### L 501.6710, L100.0100, L101.9900, L500.2500 ####[facility] [address] [place], [address] Chloride [Moles/Vol] 92 mmol/L Low 98-108 [facility] Comment on above: Performed By: #### L 501.6710, L100.0100, L101.9900, L500.2500 ####[facility] [address] [place], [address] CO2 [Moles/Vol] 23.1 mmol/L Normal 21.0-32.0 [facility] Comment on above: Performed By: #### L 501.6710, L100.0100, L101.9900, L500.2500 ####[facility] [address] [place], [address] Creatinine [Mass/Vol] 0.86 mg/dL Normal 0.70-1.20 [facility] Comment on above: Performed By: #### L 501.6710, L100.0100, L101.9900, L500.2500 ####[facility] [address] [place], [address] GAP 14 Normal 5-15 [facility] Comment on above: Performed By: #### L 501.6710, L100.0100, L101.9900, L500.2500 ####[facility] [address] [place], [address] GFR/1.73 sq M.predicted among non-blacks MDRD (S/P/Bld) [Vol rate/Area] 98 mL/min/{1.73_m2} Normal >60 [facility] Comment on above: Result Comment: mL/m in/1.73m2 CKD-EPI Creatinine Equation (2020) Performed By: #### L 501.6710, L100.0100, L101.9900, L500.2500 ####[facility] [address] [place], [address] Glucose [Mass/Vol] 111 mg/dL High 70-99 [facility] Comment on above: Performed By: #### L 501.6710, L100.0100, L101.9900, L500.2500 ####[facility] [address] [place], [address] Potassium [Moles/Vol] 3.7 mmol/L Normal 3.3-5.1 [facility] Comment on above: Performed By: #### L 501.6710, L100.0100, L101.9900, L500.2500 ####[facility] [address] [place], [address] Sodium [Moles/Vol] 130 mmol/L Low 133-145 [facility] Comment on above: Performed By: #### L 501.6710, L100.0100, L101.9900, L500.2500 ####[facility] [address] [place], [address] Urea nitrogen [Mass/Vol] 17 mg/dL Normal 4-19 [facility] Comment on above: Performed By: #### L 501.6710, L100.0100, L101.9900, L500.2500 ####[facility] [address] [place], [address] Basophil percentageOrdered B y: Canelo Heredia on 05-05-2024 Basophils/100 WBC (Bld) 1.1 % High 0-1 [facility] Basophil percentage 1.1 % High 0-1 [facility] Blood lymphocytes/100 leukoc ytesOrdered By: Canelo Heredia on 05-05-2024 Lymphocytes/100 WBC (Bld) 4 % [facility] Body fluid crystal identific ation by light microscopyOrdered By: Canelo Heredia on 05-05-2024 Crystals LM Nom (Body fld) CALCIUM PYROPHOS [facility] Comment on above: CRYSTAL RESULT IS PRELIMINARY. SEE PATH REVIEW FOR FINAL REPORT. Body fluid cultureOrdered By : Canelo Heredia on 05-05-2024 Body fluid culture No growth in 5 days. [facility] CRPon 05-05-2024 C-REACTIVE PROT 123.00 mg/L High 0.0-3.0 [facility] Comment on above: Performed By: #### L 501.6710, L100.0100, L101.9900, L500.2500 ####[facility] [address] [place], [place], [id number] CRP [Mass/Vol]Ordered By: Den Heredia on 05-05-2024 Serum or plasma C reactive protein measurement (mass/volume) 123.00 mg/L High 0.0-3.0 [facility] Calcium [Mass/Vol]Ordered By : Canelo Heredia on 05-05-2024 Serum or plasma calcium measurement (mass/volume) 9.4 mg/dL 7.6-11.0 [facility] Carbon dioxide, total [Moles /volume] in Central venous bloodOrdered By: Canelo Heredia on 05-05-2024 CO2 [Moles/Vol] 23.1 mmol/L 21.0-32.0 [facility] Carbon dioxide, total [Moles/volume] in Central venous blood 23.1 mmol/L 21.0-32.0 [facility] Cells Counted Total (Syn fld ) [#]Ordered By: Canelo Heredia on 05-05-2024 Synovial fluid total cell count 24.7250 10^3/uL High 0.000-0.00 0 [facility] Chloride assayOrdered By: Den Heredia on 05-05-2024 Chloride [Moles/Vol] 92 mmol/L Low 98-108 [facility] Chloride assay 92 mmol/L Low 98-108 [facility] Color (Syn fld)Ordered By: Erin Heredia on 05-05-2024 Synovial fluid color determination (nominal result) Yellow Pale Yellow [facility] Creatinine [Mass/Vol]Ordered By: Canelo Heredia on 05-05-2024 Serum creatinine measurement (mass/volume) 0.86 mg/dL 0.70-1.20 [facility] Crystals LM Nom (Body fld)Or dered By: Canelo Heredia on 05-05-2024 Body fluid crystal identification by light microscopy CALCIUM PYROPHOS [facility] Determination of appearance of synovial fluid (nominal result)Ordered By: Canelo Heredia on 05-05-2024 Appearance (Syn fld) Cloudy CLEAR [facility] ESR (Bld) [Velocity]Ordered By: Canelo Heredia on 05-05-2024 Erythrocyte sedimentation rate 74 mm/hr High 0-20 [facility] Emergency Department Summary on 05-05-2024 Emergency Department Summary Normal [facility] Eosinophil percentageOrdered By: Canelo Heredia on 05-05-2024 Eosinophils/100 WBC (Bld) 0.4 % 0-5 [facility] Eosinophil percentage 0.4 % 0-5 [facility] Erythrocyte distribution wid th (RBC) [Ratio]Ordered By: Canelo Heredia on 05-05-2024 Erythrocyte distribution width ratio 13.0 % 11.6-14.6 [facility] Erythrocyte distribution width standard deviation 41.5 fl 35.1-43.9 [facility] Erythrocyte distribution wid th ratioOrdered By: Canelo Heredia on 05-05-2024 Erythrocyte distribution width (RBC) [Ratio] 13.0 % 11.6-14.6 [facility] Erythrocyte distribution wid th standard deviationOrdered By: Canelo Heredia on 05-05-2024 Erythrocyte distribution width (RBC) [Ratio] 41.5 fl 35.1-43.9 [facility] Erythrocyte sedimentation ra teOrdered By: Canelo Heredia on 05-05-2024 ESR (Bld) [Velocity] 74 mm/h High 0-20 [facility] Comment on above: SEE REPORT IN KYRIE Stacy'S EMRPrevious reported result: 74 mm/hrEdited by: RUDY on 06/09/24:1033 AMENDED REPORT 06/09/24 1033 SED RATE previously reported as: 74 H mm/hr GFR/1.73 sq M.predicted ilan g non-blacks MDRD (S/P/Bld) [Vol rate/Area]Ordered By: Canelo Heredia on 05-05-2024 Glomerular filtration rate (GFR) estimation/1.73 sq m using serum, plasma, or whole b 98 >60 [facility] Glomerular filtration rate ( GFR) estimation/1.73 sq m using serum, plasma, or whole bOrdered By: Canelo Heredia on 05-05-2024 GFR/1.73 sq M.predicted among non-blacks MDRD (S/P/Bld) [Vol rate/Area] 98 mL/min/{1.73_m2} >60 [facility] Comment on above: mL/min/1.73m2 CKD-EP I Creatinine Equation (2020) Glucose [Mass/Vol]Ordered By : Canelo Heredia on 05-05-2024 Serum glucose measurement (mass/volume) 111 mg/dL High 70-99 [facility] Gram stainOrdered By: Canelo khalil on 05-05-2024 Microscopic observation Gram stain Nom (Unsp spec) [facility] Hematocrit Auto (Bld) [Volum e fraction]Ordered By: Canelo Heredia on 05-05-2024 Hematocrit (Bld) [Volume fraction] 30.6 % Low 40-54 [facility] Automated blood hematocrit (percentage) 30.6 % Low 40-54 [facility] Hemoglobin measurementOrdere d By: Canelo Heredia on 05-05-2024 Hemoglobin (Bld) [Mass/Vol] 10.3 g/dL Low 13.0-16.5 [facility] Hemoglobin measurement 10.3 g/dL Low 13.0-16.5 [facility] Immature granulocytes/100 WB C Auto (Bld)Ordered By: Canelo Heredia on 05-05-2024 Immature granulocytes/100 WBC (Bld) 0.700 % 0.0-0.9 [facility] Comment on above: IG% - Immature Granu locytes (promyelocytes, myelocytes and metamyelocytes) > 1% indicates that a LEFT SHIFT is Present. Automated immature granulocyte percentage 0.700 % 0.0-0.9 [facility] Knee 4 or More Viewson 05-05 Knee 4 or More Views Normal [facility] Lymphocytes Auto (Unsp spec) [#/Vol]Ordered By: Canelo Heredia on 05-05-2024 Absolute lymphocyte count 1.63 X10^3/uL 0.83-4.51 [facility] Lymphocytes/100 WBC (Bld)Ord ered By: Canelo Heredia on 05-05-2024 Blood lymphocytes/100 leukocytes 4 % [facility] Lymphocytes/100 WBC Auto (Un sp spec)Ordered By: Canelo Heredia on 05-05-2024 Automated lymphocyte count as percentage of total leukocytes 14.7 % Low 19-41 [facility] MCV (RBC) [Entitic vol]Order ed By: Canelo Heredia on 05-05-2024 MCV (mean corpuscular volume) determination 87.9 fL 80-94 [facility] MCV (mean corpuscular volume ) determinationOrdered By: Canelo Heredia on 05-05-2024 MCV (RBC) [Entitic vol] 87.9 fL 80-94 [facility] Mean corpuscular hemoglobin (MCH) determinationOrdered By: Canelo Heredia on 05-05-2024 MCH (RBC) [Entitic mass] 29.6 pg 27.0-32.0 [facility] Mean corpuscular hemoglobin (MCH) determination 29.6 pg 27.0-32.0 [facility] Mean corpuscular hemoglobin concentration (MCHC) determinationOrdered By: Canelo Heredia on 05-05-2024 MCHC (RBC) [Mass/Vol] 33.7 g/dL 32-36 [facility] Mean corpuscular hemoglobin concentration (MCHC) determination 33.7 g/dL 32-36 [facility] Mean platelet volume determi nationOrdered By: Canelo Heredia on 05-05-2024 Platelet mean volume (Bld) [Entitic vol] 8.2 fL 6.2-12.0 [facility] Mean platelet volume determination 8.2 fl 6.2-12.0 [facility] Monocyte percentageOrdered B y: Canelo Heredia on 05-05-2024 Monocytes/100 WBC (Bld) 12.7 % High 0-10 [facility] Monocyte percentage 12.7 % High 0-10 [facility] Monocytes/100 WBC (Syn fld)O rdered By: Canelo Heredia on 05-05-2024 Synovial fluid monocyte percentage 11 % [facility] Mononuclear cells Auto (Syn fld) [#/Vol]Ordered By: Canelo Heredia on 05-05-2024 Automated synovial fluid mononuclear cell count (number/volume) 2.246 10^3/ul [facility] Mononuclear cells/100 WBC (S yn fld)Ordered By: Canelo Heredia on 05-05-2024 Synovial fluid mononuclear cells/100 leukocytes 9.0 % [facility] Neutrophil percentageOrdered By: Canelo Heredia on 05-05-2024 Neutrophils/100 WBC (Bld) 70.4 % High 47-70 [facility] Neutrophil percentage 70.4 % High 47-70 [facility] Neutrophils/100 WBC (Syn fld )Ordered By: Canelo Heredia on 05-05-2024 Synovial fluid neutrophil percentage 85 % High 0-25 [facility] Nucleated red blood cell per centageOrdered By: Canelo Heredia on 05-05-2024 Nucleated RBC/100 WBC (Bld) [Ratio] 0 % 0-5 [facility] Nucleated red blood cell percentage 0 % 0-5 [facility] Pathologist review Gera (Unsp spec) [Interp]Ordered By: Canelo Heredia on 05-05-2024 Pathologist review of results (narrative result) May follow [facility] Review by pathologist Reviewed [facility] Pathologist review of result s (narrative result)Ordered By: Canelo Heredia on 05-05-2024 Pathologist review Gera (Unsp spec) [Interp] May follow [facility] Platelet countOrdered By: Den Heredia on 05-05-2024 Platelets (Bld) [#/Vol] 709 10*3/uL High 150-450 [facility] Platelet count 709 K/mm3 High 150-450 [facility] Polymorphonuclear cells Auto (Syn fld) [#/Vol]Ordered By: Canelo Heredia on 05-05-2024 Automated synovial fluid polymorphonuclear cell count (number/volume) 22.432 10^3/uL [facility] Polymorphonuclear cells/100 WBC Auto (Syn fld)Ordered By: Canelo Heredia on 05-05-2024 Automated synovial fluid polymorphonuclear cells as percentage of leukocytes 91.0 % [facility] Potassium (Unsp spec) [Mass/ Vol]Ordered By: Canelo Heredia on 05-05-2024 Potassium measurement (mass/volume) 3.7 mmol/L 3.3-5.1 [facility] Potassium measurement (mass/ volume)Ordered By: Canelo Heredia on 05-05-2024 Potassium (Unsp spec) [Mass/Vol] 3.7 mmol/L 3.3-5.1 [facility] Qualitative synovial fluid v iscosityOrdered By: Canelo Heredia on 05-05-2024 Viscosity Ql (Syn fld) Sl. Viscous HIGH W [facility] RBC (Syn fld) [#/Vol]Ordered By: Canelo Heredia on 05-05-2024 Synovial fluid erythrocytes count (number/volume) 0.005 10^6/uL High 0-0 [facility] RBC Auto (Bld) [#/Vol]Ordere d By: Canelo Heredia on 05-05-2024 RBC (Bld) [#/Vol] 3.48 10*6/uL Low 4.6-6.2 [facility] Automated blood erythrocyte count 3.48 M/mm3 Low 4.6-6.2 [facility] Review by pathologistOrdered By: Canelo Heredia on 05-05-2024 Pathologist review Gera (Unsp spec) [Interp] Reviewed [facility] Comment on above: Previous reported re sult: Will follow Edited by: RUDY on 06/07/24:1406SEE REPORT IN PATIENT'S EMR AMENDED REPORT 06/07/24 1406 PATH REV previously reported as: Will follow Pathologist review Gera (Unsp spec) [Interp] N/A [facility] Comment on above: [facility] Previous reported result: Reviewed Edited by: JESSI on 07/01/24:0736 AMENDED REPORT 07/01/24 0736 PATH REV previously reported as: Reviewed Serum creatinine measurement (mass/volume)Ordered By: Canelo Heredia on 05-05-2024 Creatinine [Mass/Vol] 0.86 mg/dL 0.70-1.20 [facility] Serum glucose measurement (m ass/volume)Ordered By: Canelo Heredia on 05-05-2024 Glucose [Mass/Vol] 111 mg/dL High 70-99 [facility] Serum or plasma C reactive p rotein measurement (mass/volume)Ordered By: Canelo Heredia on 05-05-2024 CRP [Mass/Vol] 123.00 mg/L High 0.0-3.0 [facility] Serum or plasma calcium nimo urement (mass/volume)Ordered By: Canelo Heredia on 05-05-2024 Calcium [Mass/Vol] 9.4 mg/dL 7.6-11.0 [facility] Serum or plasma urea nitroge n measurement (mass/volume)Ordered By: Canelo Heredia on 05-05-2024 Urea nitrogen [Mass/Vol] 17 mg/dL 4-19 [facility] Sodium levelOrdered By: Canelo Heredia on 05-05-2024 Sodium [Moles/Vol] 130 mmol/L Low 133-145 [facility] Sodium level 130 mmol/L Low 133-145 [facility] Specimen source Nom (Body fl d)Ordered By: Canelo Heredia on 05-05-2024 Specimen source identification of body fluid SYNOVIAL [facility] Specimen source identification of body fluid RIGHT KNEE [facility] Specimen source identificati on of body fluidOrdered By: Canelo Heredia on 05-05-2024 Specimen source Nom (Body fld) SYNOVIAL [facility] Specimen source Nom (Body fld) RIGHT KNEE [facility] Specimen volume (Syn fld)Ord ered By: Canelo Heredia on 05-05-2024 Synovial fluid sample volume measurement 8.0 ml High 0.1-3.5 [facility] Synovial fluid color determi nation (nominal result)Ordered By: Canelo Heredia on 05-05-2024 Color (Syn fld) Yellow Pale Yellow [facility] Synovial fluid erythrocytes count (number/volume)Ordered By: Canelo Heredia on 05-05-2024 RBC (Syn fld) [#/Vol] 0.005 10^6/uL High 0-0 [facility] Synovial fluid monocyte perc entageOrdered By: Canelo Heredia on 05-05-2024 Monocytes/100 WBC (Syn fld) 11 % [facility] Synovial fluid mononuclear c ells/100 leukocytesOrdered By: Canelo Heredia on 05-05-2024 Mononuclear cells/100 WBC (Syn fld) 9.0 % [facility] Synovial fluid neutrophil pe rcentageOrdered By: Canelo Heredia on 05-05-2024 Neutrophils/100 WBC (Syn fld) 85 % High 0-25 [facility] Synovial fluid sample volume measurementOrdered By: Canelo Heredia on 05-05-2024 Specimen volume (Syn fld) 8.0 ml High 0.1-3.5 [facility] Synovial fluid total cell co untOrdered By: Canelo Heredia on 05-05-2024 Cells Counted Total (Syn fld) [#] 24.7250 10^3/uL High 0.000-0.00 0 [facility] Comment on above: This is the Total Nu mber of Nucleated Cell Types in the Body Fluid. Urea nitrogen [Mass/Vol]Orde red By: Canelo Heredia on 05-05-2024 Serum or plasma urea nitrogen measurement (mass/volume) 17 mg/dL - [facility] Viscosity Ql (Syn fld)Ordere d By: Canelo Heredia on 05-05-2024 Qualitative synovial fluid viscosity Sl. Viscous HIGH [facility] WBC Auto (Syn fld) [#/Vol]Or dered By: Canelo Heredia on 05-05-2024 Automated synovial fluid leukocytes count (number/volume) 24.6500 10^3/uL High 0.000-0.00 2 [facility] White blood cell (WBC) count Ordered By: Canelo Heredia on 05-05-2024 WBC (Bld) [#/Vol] 11.1 10*3/uL High 4.4-11.0 [facility] White blood cell (WBC) count 11.1 K/mm3 High 4.4-11.0 [facility] Chest PA and Lateralon 05-03 Chest PA and Lateral Normal [facility] Pulmonary Visit Reporton Pulmonary Visit Report Normal [facility] CNPNon 04-30-2024 CNPN Telephone (HCSIND) AIDEN ORTIZ ([id number]) 1960 M Date Time Provider Department 04/30/24 [facility]AVI [facility] HCSIND During your visit today, we recorded the following information about you: [employer] AnalystGiuliana 04/30/2024 8:25 AM Signed Notified that Woody Ngotravis is unavailable for today's scheduled PT visit and that we will reschedule as able. Allergies As of Date: 04/30/2024 Noted Allergy Reaction DETROL (TOLTERODINE TARTRATE) 10/12/2014 14 - Other: See Comments Comments: Depression and agitation. Date Reviewed: 04/23/2024 Reviewed by: Joseline Marroquin RN - Fully Assessed Reason for Visit: Home Care [4073] Prescriptions as of 04/30/2024 - cyclobenzaprine (FLEXERIL) 10 mg tablet Take 10 mg by mouth three times a day as needed for muscle spasm. - oxyCODONE IR (ROXICODONE) 5 mg immediate release tablet Take 5 mg by mouth two times a day as needed for pain. - metoprolol tartrate, short acting, (LOPRESSOR) 25 mg tablet Take 25 mg by mouth two times a day. - amoxicillin-clavulanate potassium (AUGMENTIN) 875-125 mg per tablet Take 1 tablet by mouth two times a day. - losartan (COZAAR) 100 mg tablet Take 100 mg by mouth once daily. - thiamine (VITAMIN B1) 100 mg tablet Take 100 mg by mouth once daily. - acetaminophen (TYLENOL) 500 mg tablet Take 500 mg by mouth every 8 hours as needed for pain. - folic acid 1 mg tablet Take 1 mg by mouth once daily. - tiotropium bromide (SPIRIVA RESPIMAT) 2.5 mcg/actuation inhaler Inhale 2 Puffs as instructed once daily. - melatonin 3 mg tablet Take 3 mg by mouth at bedtime as needed for insomnia. - polyethylene glycol, bulk, 100 % powd Take 1 Dose by mouth once daily as needed (constipation). - guaiFENesin 1,200 mg Ta12 Take 1 tablet by mouth two times a day. - dicyclomine (BENTYL) 10 mg capsule Take 20 mg by mouth three times a day before meals. - doxycycline monohydrate (MONODOX) 100 mg capsule Take 100 mg by mouth two times a day. - metroNIDAZOLE (FLAGYL) 500 mg tablet Take 500 mg by mouth three times a day. - OXYGEN, HOME THERAPY, Inhale 2 L/min as instructed continuous. - albuterol HFA (PROAIR HFA) 90 mcg/actuation inhaler Inhale 2 Puffs as instructed every 4 hours as needed for wheezing/shortness of breath. - fluticasone-salmeterol (ADVAIR DISKUS) 500-50 mcg/dose dsdv Inhale 1 Puff as instructed twice daily. Rinse and gargle mouth with water after use. Problem List As Of Date 04/30/2024 Noted Resolved COPD (chronic obstructive pulmonary disease) [J*07/10/2010 Smoker [F17.200] 08/31/2014 Mixed hyperlipidemia [E78.2] 08/31/2014 Special screening for malignant neoplasms, colo*09/23/2014 09/23/2014 Overactive bladder [N32.81] 10/12/2014 IBS (irritable bowel syndrome) [K58.9] 10/12/2014 Cervicalgia [M54.2] 04/03/2015 Prostate cancer screening [Z12.5] 02/08/2016 Benign non-nodular prostatic hyperplasia [N40.0]02/14/2016 Well adult exam [Z00.00] 02/14/2016 Essential hypertension [I10] 02/14/2016 Encounter Status:Closed by GIULIANA JACQUES on 04/30/24 [facility] 04-19-2024 CNPN Telephone (HCSIND) AIDEN ORTIZ ([id number]) 1960 M Date Time Provider Department 04/19/24 XAVI FORTUNE HCSIND During your visit today, we recorded the following information about you: Giuliana Jacques 04/19/2024 2:56 PM Signed There has been a delay in service for Home Care PT Evaluation for this patient due to schedule conflict. Patient was notified on 04/19. Physician's office notified at: [phone] ( left) Thank you for this referral, please contact us with any questions. Giuliana Ornelas Allergies As of Date: 04/19/2024 Noted Allergy Reaction DETROL (TOLTERODINE TARTRATE) 10/12/2014 14 - Other: See Comments Comments: Depression and agitation. Date Reviewed: 04/17/2024 Reviewed by: Doyle Olson OTR/L - Fully Assessed Reason for Visit: Home Care [4073] Cmt: DELAY IN SERVICE Prescriptions as of 04/19/2024 - metoprolol tartrate, short acting, (LOPRESSOR) 25 mg tablet Take 25 mg by mouth two times a day. - amoxicillin-clavulanate potassium (AUGMENTIN) 875-125 mg per tablet Take 1 tablet by mouth two times a day. - losartan (COZAAR) 100 mg tablet Take 100 mg by mouth once daily. - thiamine (VITAMIN B1) 100 mg tablet Take 100 mg by mouth once daily. - acetaminophen (TYLENOL) 500 mg tablet Take 500 mg by mouth every 8 hours as needed for pain. - folic acid 1 mg tablet Take 1 mg by mouth once daily. - tiotropium bromide (SPIRIVA RESPIMAT) 2.5 mcg/actuation inhaler Inhale 2 Puffs as instructed once daily. - melatonin 3 mg tablet Take 3 mg by mouth at bedtime as needed for insomnia. - polyethylene glycol, bulk, 100 % powd Take 1 Dose by mouth once daily as needed (constipation). - guaiFENesin 1,200 mg Ta12 Take 1 tablet by mouth two times a day. - dicyclomine (BENTYL) 10 mg capsule Take 20 mg by mouth three times a day before meals. - doxycycline monohydrate (MONODOX) 100 mg capsule Take 100 mg by mouth two times a day. - metroNIDAZOLE (FLAGYL) 500 mg tablet Take 500 mg by mouth three times a day. - OXYGEN, HOME THERAPY, Inhale 3 L/min as instructed continuous. - albuterol HFA (PROAIR HFA) 90 mcg/actuation inhaler Inhale 2 Puffs as instructed every 4 hours as needed for wheezing/shortness of breath. - fluticasone-salmeterol (ADVAIR DISKUS) 500-50 mcg/dose dsdv Inhale 1 Puff as instructed twice daily. Rinse and gargle mouth with water after use. Problem List As Of Date 04/19/2024 Noted Resolved COPD (chronic obstructive pulmonary disease) [J*07/10/2010 Smoker [F17.200] 08/31/2014 Mixed hyperlipidemia [E78.2] 08/31/2014 Special screening for malignant neoplasms, colo*09/23/2014 09/23/2014 Overactive bladder [N32.81] 10/12/2014 IBS (irritable bowel syndrome) [K58.9] 10/12/2014 Cervicalgia [M54.2] 04/03/2015 Prostate cancer screening [Z12.5] 02/08/2016 Benign non-nodular prostatic hyperplasia [N40.0]02/14/2016 Well adult exam [Z00.00] 02/14/2016 Essential hypertension [I10] 02/14/2016 Encounter Status:Closed by ONTIVEROS FUEL PILOT ENGINEERGIULIANA on 04/19/24 [facility] 04-16-2024 CNPN Telephone (HCSIND) AIDEN ORTIZ ([id number]) 1960 M Date Time Provider Department 04/16/24 NICHOLE SOSA HCSIND During your visit today, we recorded the following information about you: Nichole Sosa 04/16/2024 11:33 AM Signed Called patient to confirm OT service for Friday. Patient agreeable to visit. Allergies As of Date: 04/16/2024 Noted Allergy Reaction DETROL (TOLTERODINE TARTRATE) 10/12/2014 14 - Other: See Comments Comments: Depression and agitation. Date Reviewed: 04/14/2024 Reviewed by: Joseline Marroquin RN - Fully Assessed Reason for Visit: Home Care [4073] Cmt: OT Eval 04/16 Prescriptions as of 04/16/2024 - metoprolol tartrate, short acting, (LOPRESSOR) 25 mg tablet Take 25 mg by mouth two times a day. - amoxicillin-clavulanate potassium (AUGMENTIN) 875-125 mg per tablet Take 1 tablet by mouth two times a day. - losartan (COZAAR) 100 mg tablet Take 100 mg by mouth once daily. - thiamine (VITAMIN B1) 100 mg tablet Take 100 mg by mouth once daily. - acetaminophen (TYLENOL) 500 mg tablet Take 500 mg by mouth every 8 hours as needed for pain. - folic acid 1 mg tablet Take 1 mg by mouth once daily. - tiotropium bromide (SPIRIVA RESPIMAT) 2.5 mcg/actuation inhaler Inhale 2 Puffs as instructed once daily. - melatonin 3 mg tablet Take 3 mg by mouth at bedtime as needed for insomnia. - polyethylene glycol, bulk, 100 % powd Take 1 Dose by mouth once daily as needed (constipation). - guaiFENesin 1,200 mg Ta12 Take 1 tablet by mouth two times a day. - dicyclomine (BENTYL) 10 mg capsule Take 20 mg by mouth three times a day before meals. - doxycycline monohydrate (MONODOX) 100 mg capsule Take 100 mg by mouth two times a day. - metroNIDAZOLE (FLAGYL) 500 mg tablet Take 500 mg by mouth three times a day. - OXYGEN, HOME THERAPY, Inhale 3 L/min as instructed continuous. - albuterol HFA (PROAIR HFA) 90 mcg/actuation inhaler Inhale 2 Puffs as instructed every 4 hours as needed for wheezing/shortness of breath. - fluticasone-salmeterol (ADVAIR DISKUS) 500-50 mcg/dose dsdv Inhale 1 Puff as instructed twice daily. Rinse and gargle mouth with water after use. Problem List As Of Date 04/16/2024 Noted Resolved COPD (chronic obstructive pulmonary disease) [J*07/10/2010 Smoker [F17.200] 08/31/2014 Mixed hyperlipidemia [E78.2] 08/31/2014 Special screening for malignant neoplasms, colo*09/23/2014 09/23/2014 Overactive bladder [N32.81] 10/12/2014 IBS (irritable bowel syndrome) [K58.9] 10/12/2014 Cervicalgia [M54.2] 04/03/2015 Prostate cancer screening [Z12.5] 02/08/2016 Benign non-nodular prostatic hyperplasia [N40.0]02/14/2016 Well adult exam [Z00.00] 02/14/2016 Essential hypertension [I10] 02/14/2016 Encounter Status:Closed by NICHOLE SOSA on 04/16/24 [facility] 04-14-2024 CNCO Letter Text [facility] CNPNon 04-12-2024 CNPN Telephone (HCSIND) AIDEN ORTIZ ([id number]) 1960 M Date Time Provider Department 04/12/24 JEREMIAS NEVILLE During your visit today, we recorded the following information about you: Adriane Cabral, ALBERTINA 04/12/2024 10:27 AM Signed Date/Time: 04/12/2024 10:25 AM Spoke with Tiana Ortiz (Spouse) @ phone #: [phone] - Preferred # for contact: Tiana Ortiz (Spouse) [phone] (Home Phone) Have you received help from a home care company in the last 60 days? no Are you agreeable to [facility] services? yes What address will we be seeing you at? [address] [place], [place] [id number] Do you have any upcoming appointments or things we need to schedule around? no Do you have a teachable CG or can you manage your care independently? yes Who? Tiana Ortiz (Spouse) Have you received the flu shot? no If so, when and where? no Allergies As of Date: 04/12/2024 Noted Allergy Reaction DETROL (TOLTERODINE TARTRATE) 10/12/2014 14 - Other: See Comments Comments: Depression and agitation. Date Reviewed: 12/16/2020 Reviewed by: Giselle Nieto (Cindy) - Fully Assessed Reason for Visit: Home Care [4073] Cmt: Confirmation Call Prescriptions as of 04/12/2024 - albuterol HFA (PROAIR HFA) 90 mcg/actuation [...] after use. Problem List As Of Date 04/12/2024 Noted Resolved COPD (chronic obstructive pulmonary disease) [J*07/10/2010 Smoker [F17.200] 08/31/2014 Mixed hyperlipidemia [E78.2] 08/31/2014 Special screening for malignant neoplasms, colo*09/23/2014 09/23/2014 Overactive bladder [N32.81] 10/12/2014 IBS (irritable bowel syndrome) [K58.9] 10/12/2014 Cervicalgia [M54.2] 04/03/2015 Prostate cancer screening [Z12.5] 02/08/2016 Benign non-nodular prostatic hyperplasia [N40.0]02/14/2016 Well adult exam [Z00.00] 02/14/2016 Essential hypertension [I10] 02/14/2016 Encounter Status:Closed by JEREMIAS NEVILLE on 04/12/24 [facility] Telephone (HCSIND) AIDEN ORTIZ ([id number]) 1960 M Date Time Provider Department 04/12/24 CHELSEA XIE HCSIND During your visit today, we recorded the following information about you: Chelsea Xie LPN 04/12/2024 10:22 AM Signed This nurse called Dr. Fortune office @ [phone]. Spoke with Nidhi and left message requesting return call to confirm if PCP will follow for [facility]. Antoinette Ricardo, PSS 04/12/2024 2:06 PM Signed Incoming call from [place] at PCP Dr. Fortune. She said Dr. Fortune will follow for homecare following discharge if appropriate. Aparna notified. ALBERTINA Farr 04/12/2024 2:06 PM Allergies As of Date: 04/12/2024 Noted Allergy Reaction DETROL (TOLTERODINE TARTRATE) 10/12/2014 14 - Other: See Comments Comments: Depression and agitation. Date Reviewed: 12/16/2020 Reviewed by: Giselle Nieto) - Fully Assessed Reason for Visit: Home Care [4073] Cmt: MD to follow. Prescriptions as of 04/12/2024 - albuterol HFA (PROAIR HFA) 90 mcg/actuation [...] after use. Problem List As Of Date 04/12/2024 Noted Resolved COPD (chronic obstructive pulmonary disease) [J*07/10/2010 Smoker [F17.200] 08/31/2014 Mixed hyperlipidemia [E78.2] 08/31/2014 Special screening for malignant neoplasms, colo*09/23/2014 09/23/2014 Overactive bladder [N32.81] 10/12/2014 IBS (irritable bowel syndrome) [K58.9] 10/12/2014 Cervicalgia [M54.2] 04/03/2015 Prostate cancer screening [Z12.5] 02/08/2016 Benign non-nodular prostatic hyperplasia [N40.0]02/14/2016 Well adult exam [Z00.00] 02/14/2016 Essential hypertension [I10] 02/14/2016 Encounter Status:Closed by CHELSEA XIE on 04/12/24 [facility] ALP [Catalytic activity/Vol] Ordered By: Felix Roberts on 04-09-2024 Serum or plasma alkaline phosphatase measurement 55 U/L 45-117 [facility] ALT [Catalytic activity/Vol] Ordered By: Felix Roberts on 04-09-2024 Serum or plasma alanine aminotransferase (ALT) measurement 12 U/L Low 16-61 [facility] Absolute lymphocyte countOrd ered By: Felix Roberts on 04-09-2024 Lymphocytes Auto (Unsp spec) [#/Vol] 1.28 10*3/uL 0.83-4.51 [facility] Absolute neutrophil countOrd ered By: Felix Roberts on 04-09-2024 Absolute neutrophil count 6.3 X10^3/uL 2.0-7.7 [facility] Albumin [Mass/Vol]Ordered By : Felix Roberts on 04-09-2024 Serum or plasma albumin measurement (mass/volume) 1.8 g/dL Low 3.2-5.0 [facility] Albumin to globulin ratioOrd ered By: Felix Roberts on 04-09-2024 Albumin to globulin ratio 0.5 RATIO Low 0.9-2.4 [facility] Automated lymphocyte count a s percentage of total leukocytesOrdered By: Felix Roberts on 04-09-2024 Lymphocytes/100 WBC Auto (Unsp spec) 14.4 % Low 19-41 [facility] Basophil percentageOrdered B y: Felix Roberts on 04-09-2024 Basophils/100 WBC (Bld) 0.9 % 0-1 [facility] Basophil percentage 0.9 % 0-1 [facility] Bilirubin, totalOrdered By: Felix Roberts on 04-09-2024 Bilirubin [Mass/Vol] 0.20 mg/dL 0.20-1.00 [facility] Bilirubin, total 0.20 mg/dL 0.20-1.00 [facility] Blood urea nitrogen (BUN)/cr eatinine ratioOrdered By: Felix Roberts on 04-09-2024 Blood urea nitrogen (BUN)/creatinine ratio 13.2 RATIO 10-20 [facility] CBC W/Diff, Automatedon 03-27 Absolute Lymph 1.28 X10 3/uL Normal 0.83-4.51 [facility] Comment on above: Performed By: #### L 501.2300, L100.0100, L500.4050 ####[facility] [address] [place], [place], [id number] Absolute Neut 6.3 X10 3/uL Normal 2.0-7.7 [facility] Comment on above: Performed By: #### L 501.2300, L100.0100, L500.4050 ####[facility] [address] [place], [address] Basophils/100 WBC (Bld) 0.9 % Normal 0-1 [facility] Comment on above: Performed By: #### L 501.2300, L100.0100, L500.4050 ####[facility] [address] [place], [address] Eosinophils/100 WBC (Bld) 1.9 % Normal 0-5 [facility] Comment on above: Performed By: #### L 501.2300, L100.0100, L500.4050 ####[facility] [address] [place], [address] Erythrocyte distribution width (RBC) [Ratio] 12.7 % Normal 11.6-14.6 [facility] Comment on above: Performed By: #### L 501.2300, L100.0100, L500.4050 ####[facility] [address] [place], [address] Hematocrit (Bld) [Volume fraction] 26.9 % Low 40-54 [facility] Comment on above: Performed By: #### L 501.2300, L100.0100, L500.4050 ####[facility] [address] [place], [address] Hemoglobin (Bld) [Mass/Vol] 9.1 g/dL Low 13.0-16.5 [facility] Comment on above: Performed By: #### L 501.2300, L100.0100, L500.4050 ####[facility] [address] [place], [address] IG% 0.800 Normal 0.0-0.9 [facility] Comment on above: Result Comment: IG% - Immature Granulocytes (promyelocytes, myelocytes andmetamyelocytes) > 1% indicates that a LEFT SHIFT is Present. Performed By: #### L 501.2300, L100.0100, L500.4050 ####[facility] [address] [place], [address] Lymphocytes/100 WBC (Bld) 14.4 % Low 19-41 [facility] Comment on above: Performed By: #### L 501.2300, L100.0100, L500.4050 ####[facility] [address] [place], [address] MCH (RBC) [Entitic mass] 30.4 pg Normal 27.0-32.0 [facility] Comment on above: Performed By: #### L 501.2300, L100.0100, L500.4050 ####[facility] [address] [place], [address] MCHC (RBC) [Mass/Vol] 33.8 g/dL Normal 32-36 [facility] Comment on above: Performed By: #### L 501.2300, L100.0100, L500.4050 ####[facility] [address] [place], [address] MCV (RBC) [Entitic vol] 90.0 fL Normal 80-94 [facility] Comment on above: Performed By: #### L 501.2300, L100.0100, L500.4050 ####[facility] [address] [place], [address] Monocytes/100 WBC (Bld) 10.5 % High 0-10 [facility] Comment on above: Performed By: #### L 501.2300, L100.0100, L500.4050 ####[facility] [address] [place], [address] Neutrophils/100 WBC (Bld) 71.5 % High 47-70 [facility] Comment on above: Performed By: #### L 501.2300, L100.0100, L500.4050 ####[facility] [address] [place], [address] Nucleated RBC (Bld) [#/Vol] 0 10*3/uL Normal 0-5 [facility] Comment on above: Performed By: #### L 501.2300, L100.0100, L500.4050 ####[facility] [address] [place], [address] Platelet mean volume (Bld) [Entitic vol] 8.6 fL Normal 6.2-12.0 [facility] Comment on above: Performed By: #### L 501.2300, L100.0100, L500.4050 ####[facility] [address] [place], [address] Platelets (Bld) [#/Vol] 548 10*3/uL High 150-450 [facility] Comment on above: Performed By: #### L 501.2300, L100.0100, L500.4050 ####[facility] [address] [place], [address] RBC (Bld) [#/Vol] 2.99 10*6/uL Low 4.6-6.2 [facility] Comment on above: Performed By: #### L 501.2300, L100.0100, L500.4050 ####[facility] [address] [place], [address] RDW SD 41.6 fl Normal 35.1-43.9 [facility] Comment on above: Performed By: #### L 501.2300, L100.0100, L500.4050 ####[facility] [address] [place], [address] WBC (Bld) [#/Vol] 8.9 10*3/uL Normal 4.4-11.0 [facility] Comment on above: Performed By: #### L 501.2300, L100.0100, L500.4050 ####[facility] [address] [place], [address] CTA Chest W/WO Contraston CTA Chest W/WO Contrast Normal [facility] Calcium [Mass/Vol]Ordered By : Felix Roberts on 04-09-2024 Serum or plasma calcium measurement (mass/volume) 8.2 mg/dL Low 8.5-10.1 [facility] Carbon dioxide measurementOr dered By: Felix Roberts on 04-09-2024 CO2 [Moles/Vol] 33.0 mmol/L High 21.0-32.0 [facility] Carbon dioxide measurement 33.0 mmol/L High 21.0-32.0 [facility] Chloride measurementOrdered By: Felix Roberts on 04-09-2024 Chloride [Moles/Vol] 94 mmol/L Low 98-107 [facility] Chloride measurement 94 mmol/L Low 98-107 [facility] Comprehensive Metabolic Prof ilon 04-09-2024 Albumin [Mass/Vol] 1.8 g/dL Low 3.2-5.0 [facility] Comment on above: Performed By: #### L 501.2300, L100.0100, L500.4050 ####[facility] [address] [place], [address] Albumin/Globulin [Mass ratio] 0.5 {ratio} Low 0.9-2.4 [facility] Comment on above: Performed By: #### L 501.2300, L100.0100, L500.4050 ####[facility] [address] [place], [address] ALK P 55 U/L Normal 45-117 [facility] Comment on above: Performed By: #### L 501.2300, L100.0100, L500.4050 ####[facility] [address] [place], [address] ALT [Catalytic activity/Vol] 12 U/L Low 16-61 [facility] Comment on above: Performed By: #### L 501.2300, L100.0100, L500.4050 ####[facility] [address] [place], [address] AST [Catalytic activity/Vol] 18 U/L Normal 15-37 [facility] Comment on above: Performed By: #### L 501.2300, L100.0100, L500.4050 ####[facility] [address] [place], [address] Bilirubin [Mass/Vol] 0.20 mg/dL Normal 0.20-1.00 [facility] Comment on above: Result Comment: For patients on eltrombopag therapy, use of Dimension [place] TBIL is not recommended. Performed By: #### L 501.2300, L100.0100, L500.4050 ####[facility] [address] [place], [address] BUN/CRE 13.2 RATIO Normal 10-20 [facility] Comment on above: Performed By: #### L 501.2300, L100.0100, L500.4050 ####[facility] [address] [place], [address] CA,Total 8.2 mg/dL Low 8.5-10.1 [facility] Comment on above: Performed By: #### L 501.2300, L100.0100, L500.4050 ####[facility] [address] [place], [address] Chloride [Moles/Vol] 94 mmol/L Low 98-107 [facility] Comment on above: Performed By: #### L 501.2300, L100.0100, L500.4050 ####[facility] [address] [place], [address] CO2 [Moles/Vol] 33.0 mmol/L High 21.0-32.0 [facility] Comment on above: Performed By: #### L 501.2300, L100.0100, L500.4050 ####[facility] [address] [place], [address] Creatinine [Mass/Vol] 1.29 mg/dL Normal 0.70-1.30 [facility] Comment on above: Result Comment: The validity of the calculated GFR GFRAA in patients over70 years has not been determined. Clinical correlation isessential. Performed By: #### L 501.2300, L100.0100, L500.4050 ####[facility] [address] [place], [address] ECRCL 57.27 ml/min Normal [facility] Comment on above: Performed By: #### L 501.2300, L100.0100, L500.4050 ####[facility] [address] [place], [address] EST GFR - AA 73 mL/min Normal >60 [facility] Comment on above: Result Comment: Afri can [place] GFR Calc Performed By: #### L 501.2300, L100.0100, L500.4050 ####[facility] [address] [place], [address] GAP 7 Normal 5-15 [facility] Comment on above: Performed By: #### L 501.2300, L100.0100, L500.4050 ####[facility] [address] [place], [address] GFR/1.73 sq M.predicted among non-blacks MDRD (S/P/Bld) [Vol rate/Area] 60 mL/min/{1.73_m2} Normal >60 [facility] Comment on above: Result Comment: Non- GFR Calc Performed By: #### L 501.2300, L100.0100, L500.4050 ####[facility] [address] [place], [address] Globulin (S) [Mass/Vol] 3.5 g/dL Normal 2.2-4.2 [facility] Comment on above: Performed By: #### L 501.2300, L100.0100, L500.4050 ####[facility] [address] [place], [address] Glucose [Mass/Vol] 98 mg/dL Normal 74-106 [facility] Comment on above: Performed By: #### L 501.2300, L100.0100, L500.4050 ####[facility] [address] [place], [address] Potassium [Moles/Vol] 3.6 mmol/L Normal 3.5-5.1 [facility] Comment on above: Performed By: #### L 501.2300, L100.0100, L500.4050 ####[facility] [address] [place], [address] Sodium [Moles/Vol] 134 mmol/L Low 136-145 [facility] Comment on above: Performed By: #### L 501.2300, L100.0100, L500.4050 ####[facility] [address] [place], [address] T PROT 5.3 g/dL Low 6.4-8.2 [facility] Comment on above: Performed By: #### L 501.2300, L100.0100, L500.4050 ####[facility] [address] [place], [address] Urea nitrogen [Mass/Vol] 17 mg/dL Normal 7-18 [facility] Comment on above: Performed By: #### L 501.2300, L100.0100, L500.4050 ####[facility] [address] [place], [address] Consultation - Cardiologyon 04-09-2024 Consultation - Cardiology Normal [facility] Creatinine [Mass/Vol]Ordered By: Felix Roberts on 04-09-2024 Serum or plasma creatinine measurement (mass/volume) 1.29 mg/dL 0.70-1.30 [facility] Echo, Limited Studyon 2024 Echo, Limited Study Normal [facility] Eosinophil percentageOrdered By: Felix Roberts on 04-09-2024 Eosinophils/100 WBC (Bld) 1.9 % 0-5 [facility] Eosinophil percentage 1.9 % 0-5 [facility] Erythrocyte distribution wid th (RBC) [Ratio]Ordered By: Felix Roberts on 04-09-2024 Erythrocyte distribution width ratio 12.7 % 11.6-14.6 [facility] Erythrocyte distribution width standard deviation 41.6 fl 35.1-43.9 [facility] Erythrocyte distribution wid th ratioOrdered By: Felix Roberts on 04-09-2024 Erythrocyte distribution width (RBC) [Ratio] 12.7 % 11.6-14.6 [facility] Erythrocyte distribution wid th standard deviationOrdered By: Felix Roberts on 04-09-2024 Erythrocyte distribution width (RBC) [Ratio] 41.6 fl 35.1-43.9 [facility] Estimated glomerular filtrat ion rate (GFR) AmericanOrdered By: Felix Roberts on 04-09-2024 Estimated glomerular filtration rate (GFR) 73 mL/min >60 [facility] Estimation of creatinine ana aranceOrdered By: Felix Roberts on 04-09-2024 Estimation of creatinine clearance 57.27 ml/min [facility] Glomerular filtration rate ( GFR) estimationOrdered By: Felix Roberts on 04-09-2024 GFR/1.73 sq M.predicted among non-blacks MDRD (S/P/Bld) [Vol rate/Area] 60 mL/min/{1.73_m2} >60 [facility] Glomerular filtration rate (GFR) estimation 60 mL/min >60 [facility] Glucose measurementOrdered B y: Felix Roberts on 04-09-2024 Glucose [Mass/Vol] 98 mg/dL 74-106 [facility] Glucose measurement 98 mg/dL 74-106 [facility] H AND P Exam - Hospitaliston 04-09-2024 H&P Exam - Hospitalist Normal [facility] Hematocrit Auto (Bld) [Volum e fraction]Ordered By: Felix Roberts on 04-09-2024 Hematocrit (Bld) [Volume fraction] 26.9 % Low 40-54 [facility] Automated blood hematocrit (percentage) 26.9 % Low 40-54 [facility] Hemoglobin measurementOrdere d By: Felix Roberts on 04-09-2024 Hemoglobin (Bld) [Mass/Vol] 9.1 g/dL Low 13.0-16.5 [facility] Hemoglobin measurement 9.1 g/dL Low 13.0-16.5 [facility] Immature granulocytes/100 WB C Auto (Bld)Ordered By: Felix Roberts on 04-09-2024 Immature granulocytes/100 WBC (Bld) 0.800 % 0.0-0.9 [facility] Automated immature granulocyte percentage 0.800 % 0.0-0.9 [facility] L501.4020on 04-09-2024 TROPONIN-I HS 129 pg/mL Invalid Interpretation Code 3.0-78.0 [facility] Comment on above: Order Comment: 'TROP ' Serial specimen #1, #2 or #3: 2 Result Comment: [facility] icamary Result(s) Called at: 04:49:19 04/09/2024 by:DIAZ ORDOÑEZ TO [facility] ICU. Results read back by same. Please Note: New Test Units and Gender Specific Reference Ranges. For more information see Policy Stat Procedure [place] High Sensitivity Troponin (TNIH) and attachments. Performed By: #### L 501.4020 ####[facility] [address] [facility]. [place], [place], [id number] TROPONIN-I HS 80 pg/mL High 3.0-78.0 [facility] Comment on above: Order Comment: 'TROP ' Serial specimen #1, #2 or #3: 2 Result Comment: Kayleen benjamin Note: New Test Units and Gender Specific Reference Ranges. For more information see Policy Stat Procedure [place] High Sensitivity Troponin (TNIH) and attachments. Performed By: #### L 501.4020 ####[facility] [address] [place], [address] Lymphocytes Auto (Unsp spec) [#/Vol]Ordered By: Felix Roberts on 04-09-2024 Absolute lymphocyte count 1.28 X10^3/uL 0.83-4.51 [facility] Lymphocytes/100 WBC Auto (Un sp spec)Ordered By: Felix Roberts on 04-09-2024 Automated lymphocyte count as percentage of total leukocytes 14.4 % Low 19-41 [facility] MCV (RBC) [Entitic vol]Order ed By: Felix Roberts on 04-09-2024 MCV (mean corpuscular volume) determination 90.0 fL 80-94 [facility] MCV (mean corpuscular volume ) determinationOrdered By: Felix Roberts on 04-09-2024 MCV (RBC) [Entitic vol] 90.0 fL 80-94 [facility] Mean corpuscular hemoglobin (MCH) determinationOrdered By: Felix Roberts on 04-09-2024 MCH (RBC) [Entitic mass] 30.4 pg 27.0-32.0 [facility] Mean corpuscular hemoglobin (MCH) determination 30.4 pg 27.0-32.0 [facility] Mean corpuscular hemoglobin concentration (MCHC) determinationOrdered By: Felix Roberts on 04-09-2024 Mean corpuscular hemoglobin concentration (MCHC) determination 33.8 g/dL 32-36 [facility] Mean platelet volume determi nationOrdered By: Felix Robetrs on 04-09-2024 Mean platelet volume determination 8.6 fl 6.2-12.0 [facility] Monocyte percentageOrdered B y: Felix Roberts on 04-09-2024 Monocytes/100 WBC (Bld) 10.5 % High 0-10 [facility] Monocyte percentage 10.5 % High 0-10 [facility] Neutrophil percentageOrdered By: Felix Roberts on 04-09-2024 Neutrophils/100 WBC (Bld) 71.5 % High 47-70 [facility] Neutrophil percentage 71.5 % High 47-70 [facility] No Panel InformationOrdered By: Felix Roberts on 04-09-2024 18 U/L 15-37 [facility] Nucleated red blood cell per centageOrdered By: Felix Roberts on 04-09-2024 Nucleated red blood cell percentage 0 % 0-5 [facility] Phosphoruson 04-09-2024 Phosphate [Mass/Vol] 2.7 mg/dL Normal 2.5-4.9 [facility] Comment on above: Performed By: #### L 501.2300, L100.0100, L500.4050 ####[facility] [address] [place], [address] Phosphorus measurementOrdere d By: Felix Roberts on 04-09-2024 Phosphorus measurement 2.7 mg/dL 2.5-4.9 [facility] Platelet countOrdered By: Chucky Roberts on 04-09-2024 Platelets (Bld) [#/Vol] 548 10*3/uL High 150-450 [facility] Platelet count 548 K/mm3 High 150-450 [facility] Potassium measurementOrdered By: Felix Roberts on 04-09-2024 Potassium [Moles/Vol] 3.6 mmol/L 3.5-5.1 [facility] Potassium measurement 3.6 mmol/L 3.5-5.1 [facility] RBC Auto (Bld) [#/Vol]Ordere d By: Felix Roberts on 04-09-2024 RBC (Bld) [#/Vol] 2.99 10*6/uL Low 4.6-6.2 [facility] Automated blood erythrocyte count 2.99 M/mm3 Low 4.6-6.2 [facility] Serum anion gap measurementO rdered By: Felix Roberts on 04-09-2024 Serum anion gap measurement 7 5-15 [facility] Serum globulin measurementOr dered By: Felix Roberts on 04-09-2024 Globulin (S) [Mass/Vol] 3.5 g/dL 2.2-4.2 [facility] Serum globulin measurement 3.5 g/dL 2.2-4.2 [facility] Serum or plasma alanine guevara otransferase (ALT) measurementOrdered By: Felix Roberts on 04-09-2024 ALT [Catalytic activity/Vol] 12 U/L Low 16-61 [facility] Serum or plasma albumin nimo urement (mass/volume)Ordered By: Felix Roberts on 04-09-2024 Albumin [Mass/Vol] 1.8 g/dL Low 3.2-5.0 [facility] Serum or plasma alkaline jam sphatase measurementOrdered By: Felix Roberts on 04-09-2024 ALP [Catalytic activity/Vol] 55 U/L 45-117 [facility] Serum or plasma calcium nimo urement (mass/volume)Ordered By: Felix Roberts on 04-09-2024 Calcium [Mass/Vol] 8.2 mg/dL Low 8.5-10.1 [facility] Serum or plasma creatinine m easurement (mass/volume)Ordered By: Felix Roberts on 04-09-2024 Creatinine [Mass/Vol] 1.29 mg/dL 0.70-1.30 [facility] Serum or plasma urea nitroge n measurement (mass/volume)Ordered By: Felix Roberts on 04-09-2024 Urea nitrogen [Mass/Vol] 17 mg/dL 7- [facility] Sodium levelOrdered By: Jair Roberts on 04-09-2024 Sodium [Moles/Vol] 134 mmol/L Low 136-145 [facility] Sodium level 134 mmol/L Low 136-145 [facility] Total proteinOrdered By: Tommy Roberts on 04-09-2024 Protein [Mass/Vol] 5.3 g/dL Low 6.4-8.2 [facility] Total protein 5.3 g/dL Low 6.4-8.2 [facility] Troponin IOrdered By: Felix Roberts on 04-09-2024 Troponin I 129 pg/mL High 3.0-78.0 [facility] Troponin I 129 pg/mL High 3.0-78.0 [facility] Urea nitrogen [Mass/Vol]Orde red By: Felix Roberts on 04-09-2024 Serum or plasma urea nitrogen measurement (mass/volume) 17 mg/dL 7-18 [facility] White blood cell (WBC) count Ordered By: Felix Roberts on 04-09-2024 WBC (Bld) [#/Vol] 8.9 10*3/uL 4.4-11.0 [facility] White blood cell (WBC) count 8.9 K/mm3 4.4-11.0 [facility] 12 Lead EKGon 04-08-2024 12 Lead EKG Normal [facility] 12 Lead EKG Normal [facility] 12 Lead EKG Normal [facility] ALP [Catalytic activity/Vol] Ordered By: Felix Roberts on 04-08-2024 Serum or plasma alkaline phosphatase measurement 61 U/L 45-117 [facility] ALT [Catalytic activity/Vol] Ordered By: Felix Roberts on 04-08-2024 Serum or plasma alanine aminotransferase (ALT) measurement 16 U/L 16-61 [facility] Absolute lymphocyte countOrd ered By: Felix Roberts on 04-08-2024 Lymphocytes Auto (Unsp spec) [#/Vol] 1.17 10*3/uL 0.83-4.51 [facility] Absolute neutrophil countOrd ered By: Felix Roberts on 04-08-2024 Absolute neutrophil count 5.2 X10^3/uL 2.0-7.7 [facility] Albumin [Mass/Vol]Ordered By : Felix Roberts on 04-08-2024 Serum or plasma albumin measurement (mass/volume) 2.0 g/dL Low 3.2-5.0 [facility] Albumin to globulin ratioOrd ered By: Felix Roberts on 04-08-2024 Albumin to globulin ratio 0.6 RATIO Low 0.9-2.4 [facility] Automated lymphocyte count a s percentage of total leukocytesOrdered By: Felix Roberts on 04-08-2024 Lymphocytes/100 WBC Auto (Unsp spec) 15.0 % Low 19-41 [facility] BNP (brain natriuretic pepti de measurement)Ordered By: Felix Roberts on 04-08-2024 Natriuretic peptide B (Bld) [Mass/Vol] 84.9 pg/mL 0-100 [facility] BNP (brain natriuretic peptide measurement) 84.9 pg/mL 0-100 [facility] BNP,B-Type NATRIURETIC PEPTI Pavel 04-08-2024 Natriuretic peptide B (Bld) [Mass/Vol] 84.9 pg/mL Normal 0-100 [facility] Comment on above: Order Comment: Comme nts: ok to add on to labs from this am Performed By: #### L 503.6620 ####[facility] [address] [place], [address] Basic Metabolic Profile (BMP )on 04-08-2024 BUN/CRE 13.9 RATIO Normal 10-20 [facility] Comment on above: Order Comment: 'TROP ' Serial specimen #1, #2 or #3: 1 Performed By: #### L 100.0100, L500.2500, L501.4020, L501.5200, L501.9520 ####[facility] [address] [place], [address] CA,Total 9.2 mg/dL Normal 8.5-10.1 [facility] Comment on above: Order Comment: 'TROP ' Serial specimen #1, #2 or #3: 1 Performed By: #### L 100.0100, L500.2500, L501.4020, L501.5200, L501.9520 ####[facility] [address] [place], [address] Chloride [Moles/Vol] 89 mmol/L Low 98-107 [facility] Comment on above: Order Comment: 'TROP ' Serial specimen #1, #2 or #3: 1 Performed By: #### L 100.0100, L500.2500, L501.4020, L501.5200, L501.9520 ####[facility] [address] [place], [address] CO2 [Moles/Vol] 34.0 mmol/L High 21.0-32.0 [facility] Comment on above: Order Comment: 'TROP ' Serial specimen #1, #2 or #3: 1 Performed By: #### L 100.0100, L500.2500, L501.4020, L501.5200, L501.9520 ####[facility] [address] [place], [address] Creatinine [Mass/Vol] 1.44 mg/dL High 0.70-1.30 [facility] Comment on above: Order Comment: 'TROP ' Serial specimen #1, #2 or #3: 1 Result Comment: The validity of the calculated GFR GFRAA in patients over70 years has not been determined. Clinical correlation isessential. Performed By: #### L 100.0100, L500.2500, L501.4020, L501.5200, L501.9520 ####[facility] [address] [place], [address] ECRCL 51.46 ml/min Normal [facility] Comment on above: Order Comment: 'TROP ' Serial specimen #1, #2 or #3: 1 Performed By: #### L 100.0100, L500.2500, L501.4020, L501.5200, L501.9520 ####[facility] [address] [place], [address] EST GFR - AA 64 mL/min Normal >60 [facility] Comment on above: Order Comment: 'TROP ' Serial specimen #1, #2 or #3: 1 Result Comment: Afri can [place] GFR Calc Performed By: #### L 100.0100, L500.2500, L501.4020, L501.5200, L501.9520 ####[facility] [address] [place], [address] GAP 8 Normal 5-15 [facility] Comment on above: Order Comment: 'TROP ' Serial specimen #1, #2 or #3: 1 Performed By: #### L 100.0100, L500.2500, L501.4020, L501.5200, L501.9520 ####[facility] [address] [place], [address] GFR/1.73 sq M.predicted among non-blacks MDRD (S/P/Bld) [Vol rate/Area] 53 mL/min/{1.73_m2} Low >60 [facility] Comment on above: Order Comment: 'TROP ' Serial specimen #1, #2 or #3: 1 Result Comment: Non- GFR Calc Performed By: #### L 100.0100, L500.2500, L501.4020, L501.5200, L501.9520 ####[facility] [address] [place], [address] Glucose [Mass/Vol] 110 mg/dL High 74-106 [facility] Comment on above: Order Comment: 'TROP ' Serial specimen #1, #2 or #3: 1 Result Comment: Fast ing Glucose result from 100 to 125 mg/dLsuggests IMPAIRED HOMEOSTASIS per A.D.A. criteria. Performed By: #### L 100.0100, L500.2500, L501.4020, L501.5200, L501.9520 ####[facility] [address] [place], [address] Potassium [Moles/Vol] 3.8 mmol/L Normal 3.5-5.1 [facility] Comment on above: Order Comment: 'TROP ' Serial specimen #1, #2 or #3: 1 Performed By: #### L 100.0100, L500.2500, L501.4020, L501.5200, L501.9520 ####[facility] [address] [place], [address] Sodium [Moles/Vol] 132 mmol/L Low 136-145 [facility] Comment on above: Order Comment: 'TROP ' Serial specimen #1, #2 or #3: 1 Performed By: #### L 100.0100, L500.2500, L501.4020, L501.5200, L501.9520 ####[facility] [address] [place], [address] Urea nitrogen [Mass/Vol] 20 mg/dL High 7-18 [facility] Comment on above: Order Comment: 'TROP ' Serial specimen #1, #2 or #3: 1 Performed By: #### L 100.0100, L500.2500, L501.4020, L501.5200, L501.9520 ####[facility] [address] [place], [address] Basophil percentageOrdered B y: Felix Roberts on 04-08-2024 Basophils/100 WBC (Bld) 1.3 % High 0-1 [facility] Basophil percentage 1.3 % High 0-1 [facility] Bilirubin, totalOrdered By: Felix Roberts on 04-08-2024 Bilirubin [Mass/Vol] 0.30 mg/dL Normal 0.20-1.00 [facility] Comment on above: Result Comment: For patients on eltrombopag therapy, use of Dimension [place] TBIL is not recommended. Performed By: #### L 501.5200, L501.2300, L500.4050, L100.0100 ####[facility] [address] [place], [address] Bilirubin, total 0.30 mg/dL 0.20-1.00 [facility] Blood urea nitrogen (BUN)/cr eatinine ratioOrdered By: Felix Roberts on 04-08-2024 Blood urea nitrogen (BUN)/creatinine ratio 12.5 RATIO 10-20 [facility] CBC W/Diff, Automatedon 03-27 Absolute Lymph 1.34 X10 3/uL Normal 0.83-4.51 [facility] Comment on above: Performed By: #### L 100.0100, L500.2500, L501.4020, L501.5200, L501.9520 ####[facility] [address] [place], [address] Absolute Neut 8.5 X10 3/uL High 2.0-7.7 [facility] Comment on above: Performed By: #### L 100.0100, L500.2500, L501.4020, L501.5200, L501.9520 ####[facility] [address] [place], [address] Basophils/100 WBC (Bld) 0.8 % Normal 0-1 [facility] Comment on above: Performed By: #### L 100.0100, L500.2500, L501.4020, L501.5200, L501.9520 ####[facility] [address] [place], [address] Eosinophils/100 WBC (Bld) 2.5 % Normal 0-5 [facility] Comment on above: Performed By: #### L 100.0100, L500.2500, L501.4020, L501.5200, L501.9520 ####[facility] [address] [place], [address] Erythrocyte distribution width (RBC) [Ratio] 12.5 % Normal 11.6-14.6 [facility] Comment on above: Performed By: #### L 100.0100, L500.2500, L501.4020, L501.5200, L501.9520 ####[facility] [address] [place], [address] Hematocrit (Bld) [Volume fraction] 35.8 % Low 40-54 [facility] Comment on above: Performed By: #### L 100.0100, L500.2500, L501.4020, L501.5200, L501.9520 ####[facility] [address] [place], [address] Hemoglobin (Bld) [Mass/Vol] 11.6 g/dL Low 13.0-16.5 [facility] Comment on above: Performed By: #### L 100.0100, L500.2500, L501.4020, L501.5200, L501.9520 ####[facility] [address] [place], [address] IG% 0.800 Normal 0.0-0.9 [facility] Comment on above: Result Comment: IG% - Immature Granulocytes (promyelocytes, myelocytes andmetamyelocytes) > 1% indicates that a LEFT SHIFT is Present. Performed By: #### L 100.0100, L500.2500, L501.4020, L501.5200, L501.9520 ####[facility] [address] [place], [address] Lymphocytes/100 WBC (Bld) 11.7 % Low 19-41 [facility] Comment on above: Performed By: #### L 100.0100, L500.2500, L501.4020, L501.5200, L501.9520 ####[facility] [address] [place], [address] MCH (RBC) [Entitic mass] 29.3 pg Normal 27.0-32.0 [facility] Comment on above: Performed By: #### L 100.0100, L500.2500, L501.4020, L501.5200, L501.9520 ####[facility] [address] [place], [address] MCHC (RBC) [Mass/Vol] 32.4 g/dL Normal 32-36 [facility] Comment on above: Performed By: #### L 100.0100, L500.2500, L501.4020, L501.5200, L501.9520 ####[facility] [address] [place], [address] MCV (RBC) [Entitic vol] 90.4 fL Normal 80-94 [facility] Comment on above: Performed By: #### L 100.0100, L500.2500, L501.4020, L501.5200, L501.9520 ####[facility] [address] [place], [address] Monocytes/100 WBC (Bld) 10.2 % High 0-10 [facility] Comment on above: Performed By: #### L 100.0100, L500.2500, L501.4020, L501.5200, L501.9520 ####[facility] [address] [place], [address] Neutrophils/100 WBC (Bld) 74.0 % High 47-70 [facility] Comment on above: Performed By: #### L 100.0100, L500.2500, L501.4020, L501.5200, L501.9520 ####[facility] [address] [place], [address] Nucleated RBC (Bld) [#/Vol] 0 10*3/uL Normal 0-5 [facility] Comment on above: Performed By: #### L 100.0100, L500.2500, L501.4020, L501.5200, L501.9520 ####[facility] [address] [place], [address] Platelet mean volume (Bld) [Entitic vol] 8.9 fL Normal 6.2-12.0 [facility] Comment on above: Performed By: #### L 100.0100, L500.2500, L501.4020, L501.5200, L501.9520 ####[facility] [address] [place], [address] Platelets (Bld) [#/Vol] 650 10*3/uL High 150-450 [facility] Comment on above: Performed By: #### L 100.0100, L500.2500, L501.4020, L501.5200, L501.9520 ####[facility] [address] [place], [address] RBC (Bld) [#/Vol] 3.96 10*6/uL Low 4.6-6.2 [facility] Comment on above: Performed By: #### L 100.0100, L500.2500, L501.4020, L501.5200, L501.9520 ####[facility] [address] [place], [address] RDW SD 41.4 fl Normal 35.1-43.9 [facility] Comment on above: Performed By: #### L 100.0100, L500.2500, L501.4020, L501.5200, L501.9520 ####[facility] [address] [place], [address] WBC (Bld) [#/Vol] 11.5 10*3/uL High 4.4-11.0 [facility] Comment on above: Performed By: #### L 100.0100, L500.2500, L501.4020, L501.5200, L501.9520 ####[facility] [address] [place], [address] Absolute Lymph 1.17 X10 3/uL Normal 0.83-4.51 [facility] Comment on above: Performed By: #### L 501.5200, L501.2300, L500.4050, L100.0100 ####[facility] [address] [place], [address] Absolute Neut 5.2 X10 3/uL Normal 2.0-7.7 [facility] Comment on above: Performed By: #### L 501.5200, L501.2300, L500.4050, L100.0100 ####[facility] [address] [place], [address] Basophils/100 WBC (Bld) 1.3 % High 0-1 [facility] Comment on above: Performed By: #### L 501.5200, L501.2300, L500.4050, L100.0100 ####[facility] [address] [place], [address] Eosinophils/100 WBC (Bld) 5.3 % High 0-5 [facility] Comment on above: Performed By: #### L 501.5200, L501.2300, L500.4050, L100.0100 ####[facility] [address] [place], [address] Erythrocyte distribution width (RBC) [Ratio] 12.4 % Normal 11.6-14.6 [facility] Comment on above: Performed By: #### L 501.5200, L501.2300, L500.4050, L100.0100 ####[facility] [address] [place], [address] Hematocrit (Bld) [Volume fraction] 29.7 % Low 40-54 [facility] Comment on above: Performed By: #### L 501.5200, L501.2300, L500.4050, L100.0100 ####[facility] [address] [place], [address] Hemoglobin (Bld) [Mass/Vol] 9.7 g/dL Low 13.0-16.5 [facility] Comment on above: Performed By: #### L 501.5200, L501.2300, L500.4050, L100.0100 ####[facility] [address] [place], [address] IG% 0.900 Normal 0.0-0.9 [facility] Comment on above: Result Comment: IG% - Immature Granulocytes (promyelocytes, myelocytes andmetamyelocytes) > 1% indicates that a LEFT SHIFT is Present. Performed By: #### L 501.5200, L501.2300, L500.4050, L100.0100 ####[facility] [address] [place], [address] Lymphocytes/100 WBC (Bld) 15.0 % Low 19-41 [facility] Comment on above: Performed By: #### L 501.5200, L501.2300, L500.4050, L100.0100 ####[facility] [address] [place], [address] MCH (RBC) [Entitic mass] 29.5 pg Normal 27.0-32.0 [facility] Comment on above: Performed By: #### L 501.5200, L501.2300, L500.4050, L100.0100 ####[facility] [address] [place], [address] MCHC (RBC) [Mass/Vol] 32.7 g/dL Normal 32-36 [facility] Comment on above: Performed By: #### L 501.5200, L501.2300, L500.4050, L100.0100 ####[facility] [address] [place], [address] MCV (RBC) [Entitic vol] 90.3 fL Normal 80-94 [facility] Comment on above: Performed By: #### L 501.5200, L501.2300, L500.4050, L100.0100 ####[facility] [address] [place], [address] Monocytes/100 WBC (Bld) 11.3 % High 0-10 [facility] Comment on above: Performed By: #### L 501.5200, L501.2300, L500.4050, L100.0100 ####[facility] [address] [place], [address] Neutrophils/100 WBC (Bld) 66.2 % Normal 47-70 [facility] Comment on above: Performed By: #### L 501.5200, L501.2300, L500.4050, L100.0100 ####[facility] [address] [place], [address] Nucleated RBC (Bld) [#/Vol] 0 10*3/uL Normal 0-5 [facility] Comment on above: Performed By: #### L 501.5200, L501.2300, L500.4050, L100.0100 ####[facility] [address] [place], [address] Platelet mean volume (Bld) [Entitic vol] 8.4 fL Normal 6.2-12.0 [facility] Comment on above: Performed By: #### L 501.5200, L501.2300, L500.4050, L100.0100 ####[facility] [address] [place], [address] Platelets (Bld) [#/Vol] 510 10*3/uL High 150-450 [facility] Comment on above: Performed By: #### L 501.5200, L501.2300, L500.4050, L100.0100 ####[facility] [address] [place], [address] RBC (Bld) [#/Vol] 3.29 10*6/uL Low 4.6-6.2 [facility] Comment on above: Performed By: #### L 501.5200, L501.2300, L500.4050, L100.0100 ####[facility] [address] [place], [address] RDW SD 41.1 fl Normal 35.1-43.9 [facility] Comment on above: Performed By: #### L 501.5200, L501.2300, L500.4050, L100.0100 ####[facility] [address] [place], [address] WBC (Bld) [#/Vol] 7.8 10*3/uL Normal 4.4-11.0 [facility] Comment on above: Performed By: #### L 501.5200, L501.2300, L500.4050, L100.0100 ####[facility] [address] [place], [address] Calcium [Mass/Vol]Ordered By : Felix Roberts on 04-08-2024 Serum or plasma calcium measurement (mass/volume) 8.5 mg/dL 8.5-10.1 [facility] Carbon dioxide measurementOr dered By: Felix Roberts on 04-08-2024 CO2 [Moles/Vol] 33.0 mmol/L High 21.0-32.0 [facility] Comment on above: Performed By: #### L 501.5200, L501.2300, L500.4050, L100.0100 ####[facility] [address] [place], [address] Carbon dioxide measurement 33.0 mmol/L High 21.0-32.0 [facility] Chest 1 View (Portable)on Chest 1 View (Portable) Normal [facility] Chest 1 View (Portable) Normal [facility] Chloride measurementOrdered By: Felix Roberts on 04-08-2024 Chloride [Moles/Vol] 94 mmol/L Low 98-107 [facility] Comment on above: Performed By: #### L 501.5200, L501.2300, L500.4050, L100.0100 ####[facility] [address] [place], [address] Chloride measurement 94 mmol/L Low 98-107 [facility] Comprehensive Metabolic Prof ilon 04-08-2024 Albumin/Globulin [Mass ratio] 0.6 {ratio} Low 0.9-2.4 [facility] Comment on above: Performed By: #### L 501.5200, L501.2300, L500.4050, L100.0100 ####[facility] [address] [place], [address] ALK P 61 U/L Normal 45-117 [facility] Comment on above: Performed By: #### L 501.5200, L501.2300, L500.4050, L100.0100 ####[facility] [address] [place], [address] AST [Catalytic activity/Vol] 19 U/L Normal 15-37 [facility] Comment on above: Performed By: #### L 501.5200, L501.2300, L500.4050, L100.0100 ####[facility] [address] [place], [address] BUN/CRE 12.5 RATIO Normal 10-20 [facility] Comment on above: Performed By: #### L 501.5200, L501.2300, L500.4050, L100.0100 ####[facility] [address] [place], [address] CA,Total 8.5 mg/dL Normal 8.5-10.1 [facility] Comment on above: Performed By: #### L 501.5200, L501.2300, L500.4050, L100.0100 ####[facility] [address] [place], [address] ECRCL 71.25 ml/min Normal [facility] Comment on above: Performed By: #### L 501.5200, L501.2300, L500.4050, L100.0100 ####[facility] [address] [place], [address] EST GFR - AA 93 mL/min Normal >60 [facility] Comment on above: Result Comment: Afri can [place] GFR Calc Performed By: #### L 501.5200, L501.2300, L500.4050, L100.0100 ####[facility] [address] [place], [address] GAP 5 Normal 5-15 [facility] Comment on above: Performed By: #### L 501.5200, L501.2300, L500.4050, L100.0100 ####[facility] [address] [place], [address] T PROT 5.6 g/dL Low 6.4-8.2 [facility] Comment on above: Performed By: #### L 501.5200, L501.2300, L500.4050, L100.0100 ####[facility] [address] [place], [address] Creatinine [Mass/Vol]Ordered By: Felix Roberts on 04-08-2024 Serum or plasma creatinine measurement (mass/volume) 1.04 mg/dL 0.70-1.30 [facility] Emergency Department Summary on 04-08-2024 Emergency Department Summary Normal [facility] Eosinophil percentageOrdered By: Felix Roberts on 04-08-2024 Eosinophils/100 WBC (Bld) 5.3 % High 0-5 [facility] Eosinophil percentage 5.3 % High 0-5 [facility] Erythrocyte distribution wid th (RBC) [Ratio]Ordered By: Felix Roberts on 04-08-2024 Erythrocyte distribution width ratio 12.4 % 11.6-14.6 [facility] Erythrocyte distribution width standard deviation 41.1 fl 35.1-43.9 [facility] Erythrocyte distribution wid th ratioOrdered By: Felix Roberts on 04-08-2024 Erythrocyte distribution width (RBC) [Ratio] 12.4 % 11.6-14.6 [facility] Erythrocyte distribution wid th standard deviationOrdered By: Felix Roberts on 04-08-2024 Erythrocyte distribution width (RBC) [Ratio] 41.1 fl 35.1-43.9 [facility] Estimated glomerular filtrat ion rate (GFR) AmericanOrdered By: Felix Roberts on 04-08-2024 Estimated glomerular filtration rate (GFR) 93 mL/min >60 [facility] Estimation of creatinine ana aranceOrdered By: Felix Roberts on 04-08-2024 Estimation of creatinine clearance 71.25 ml/min [facility] Glomerular filtration rate ( GFR) estimationOrdered By: Felix Roberts on 04-08-2024 GFR/1.73 sq M.predicted among non-blacks MDRD (S/P/Bld) [Vol rate/Area] 77 mL/min/{1.73_m2} Normal >60 [facility] Comment on above: Result Comment: Non- GFR Calc Performed By: #### L 501.5200, L501.2300, L500.4050, L100.0100 ####[facility] [address] [place], [address] Glomerular filtration rate (GFR) estimation 77 mL/min >60 [facility] Glucose measurementOrdered B y: Felix Roberts on 04-08-2024 Glucose [Mass/Vol] 87 mg/dL Normal 74-106 [facility] Comment on above: Performed By: #### L 501.5200, L501.2300, L500.4050, L100.0100 ####[facility] [address] [place], [place], [address] Glucose measurement 87 mg/dL 74-106 [facility] Hematocrit Auto (Bld) [Volum e fraction]Ordered By: Felix Roberts on 04-08-2024 Hematocrit (Bld) [Volume fraction] 29.7 % Low 40-54 [facility] Automated blood hematocrit (percentage) 29.7 % Low 40-54 [facility] Hemoglobin measurementOrdere d By: Felix Roberts on 04-08-2024 Hemoglobin (Bld) [Mass/Vol] 9.7 g/dL Low 13.0-16.5 [facility] Hemoglobin measurement 9.7 g/dL Low 13.0-16.5 [facility] Immature granulocytes/100 WB C Auto (Bld)Ordered By: Felix Roberts on 04-08-2024 Immature granulocytes/100 WBC (Bld) 0.900 % 0.0-0.9 [facility] Automated immature granulocyte percentage 0.900 % 0.0-0.9 [facility] L501.4020on 04-08-2024 TROPONIN-I HS 19 pg/mL Normal 3.0-78.0 [facility] Comment on above: Order Comment: 'TROP ' Serial specimen #1, #2 or #3: 1 Result Comment: Kayleen benjamin Note: New Test Units and Gender Specific Reference Ranges. For more information see Policy Stat Procedure [place] High Sensitivity Troponin (TNIH) and attachments. Performed By: #### L 100.0100, L500.2500, L501.4020, L501.5200, L501.9520 ####[facility] [address] [place], [address] Lymphocytes Auto (Unsp spec) [#/Vol]Ordered By: Felix Roberts on 04-08-2024 Absolute lymphocyte count 1.17 X10^3/uL 0.83-4.51 [facility] Lymphocytes/100 WBC Auto (Un sp spec)Ordered By: Felix Roberts on 04-08-2024 Automated lymphocyte count as percentage of total leukocytes 15.0 % Low 19-41 [facility] MCV (RBC) [Entitic vol]Order ed By: Felix Roberts on 04-08-2024 MCV (mean corpuscular volume) determination 90.3 fL 80-94 [facility] MCV (mean corpuscular volume ) determinationOrdered By: Felix Roberts on 04-08-2024 MCV (RBC) [Entitic vol] 90.3 fL 80-94 [facility] Magnesiumon 04-08-2024 Magnesium [Mass/Vol] 1.9 mg/dL Normal 1.6-2.6 [facility] Comment on above: Order Comment: 'TROP ' Serial specimen #1, #2 or #3: 1 Performed By: #### L 100.0100, L500.2500, L501.4020, L501.5200, L501.9520 ####[facility] [address] [place], [place], [id number] Magnesium measurementOrdered By: Ryan Randhawa on 04-08-2024 Magnesium [Mass/Vol] 1.9 mg/dL 1.6-2.6 [facility] Magnesium measurement 1.9 mg/dL 1.6-2.6 [facility] Magnesium measurementOrdered By: Felix Roberts on 04-08-2024 Magnesium [Mass/Vol] 2.1 mg/dL Normal 1.6-2.6 [facility] Comment on above: Performed By: #### L 501.5200, L501.2300, L500.4050, L100.0100 ####[facility] [address] [place], [address] Magnesium measurement 2.1 mg/dL 1.6-2.6 [facility] Mean corpuscular hemoglobin (MCH) determinationOrdered By: Felix Roberts on 04-08-2024 MCH (RBC) [Entitic mass] 29.5 pg 27.0-32.0 [facility] Mean corpuscular hemoglobin (MCH) determination 29.5 pg 27.0-32.0 [facility] Mean corpuscular hemoglobin concentration (MCHC) determinationOrdered By: Felix Roberts on 04-08-2024 Mean corpuscular hemoglobin concentration (MCHC) determination 32.7 g/dL 32-36 [facility] Mean platelet volume determi nationOrdered By: Felix Roberts on 04-08-2024 Mean platelet volume determination 8.4 fl 6.2-12.0 [facility] Monocyte percentageOrdered B y: Felix Roberts on 04-08-2024 Monocytes/100 WBC (Bld) 11.3 % High 0-10 [facility] Monocyte percentage 11.3 % High 0-10 [facility] Neutrophil percentageOrdered By: Felix Roberts on 04-08-2024 Neutrophils/100 WBC (Bld) 66.2 % 47-70 [facility] Neutrophil percentage 66.2 % 47-70 [facility] No Panel InformationOrdered By: Felix Roberts on 04-08-2024 19 U/L 15-37 [facility] Nucleated red blood cell per centageOrdered By: Felix Roberts on 04-08-2024 Nucleated red blood cell percentage 0 % 0-5 [facility] Phosphoruson 04-08-2024 Phosphate [Mass/Vol] 2.5 mg/dL Normal 2.5-4.9 [facility] Comment on above: Performed By: #### L 501.5200, L501.2300, L500.4050, L100.0100 ####[facility] [address] [place], [address] Phosphorus measurementOrdere d By: Felix Roberts on 04-08-2024 Phosphorus measurement 2.5 mg/dL 2.5-4.9 [facility] Platelet countOrdered By: Chucky Roberts on 04-08-2024 Platelets (Bld) [#/Vol] 510 10*3/uL High 150-450 [facility] Platelet count 510 K/mm3 High 150-450 [facility] Potassium measurementOrdered By: Felix Roberts on 04-08-2024 Potassium [Moles/Vol] 3.8 mmol/L Normal 3.5-5.1 [facility] Comment on above: Performed By: #### L 501.5200, L501.2300, L500.4050, L100.0100 ####[facility] [address] [place], [address] Potassium measurement 3.8 mmol/L 3.5-5.1 [facility] RBC Auto (Bld) [#/Vol]Ordere d By: Felix Roberts on 04-08-2024 RBC (Bld) [#/Vol] 3.29 10*6/uL Low 4.6-6.2 [facility] Automated blood erythrocyte count 3.29 M/mm3 Low 4.6-6.2 [facility] Serum anion gap measurementO rdered By: Felix Roberts on 04-08-2024 Serum anion gap measurement 5 5-15 [facility] Serum globulin measurementOr dered By: Felix Roberts on 04-08-2024 Globulin (S) [Mass/Vol] 3.6 g/dL Normal 2.2-4.2 [facility] Comment on above: Performed By: #### L 501.5200, L501.2300, L500.4050, L100.0100 ####[facility] [address] [place], [address] Serum globulin measurement 3.6 g/dL 2.2-4.2 [facility] Serum or plasma alanine guevara otransferase (ALT) measurementOrdered By: Felix Roberts on 04-08-2024 ALT [Catalytic activity/Vol] 16 U/L Normal 16-61 [facility] Comment on above: Performed By: #### L 501.5200, L501.2300, L500.4050, L100.0100 ####[facility] [address] [place], [address] Serum or plasma albumin nimo urement (mass/volume)Ordered By: Felix Roberts on 04-08-2024 Albumin [Mass/Vol] 2.0 g/dL Low 3.2-5.0 [facility] Comment on above: Performed By: #### L 501.5200, L501.2300, L500.4050, L100.0100 ####[facility] [address] [place], [address] Serum or plasma alkaline jam sphatase measurementOrdered By: Felix Roberts on 04-08-2024 ALP [Catalytic activity/Vol] 61 U/L 45-117 [facility] Serum or plasma calcium nimo urement (mass/volume)Ordered By: Felix Roberts on 04-08-2024 Calcium [Mass/Vol] 8.5 mg/dL 8.5-10.1 [facility] Serum or plasma creatinine m easurement (mass/volume)Ordered By: Felix Roberts on 04-08-2024 Creatinine [Mass/Vol] 1.04 mg/dL Normal 0.70-1.30 [facility] Comment on above: Result Comment: The validity of the calculated GFR GFRAA in patients over70 years has not been determined. Clinical correlation isessential. Performed By: #### L 501.5200, L501.2300, L500.4050, L100.0100 ####[facility] [address] [place], [address] Serum or plasma thyroid stim ulating hormone (TSH) measurement (units/volume)Ordered By: Ryan Randhawa on 04-08-2024 TSH Qn 3.650 uIU/mL 0.358-3.74 0 [facility] Serum or plasma urea nitroge n measurement (mass/volume)Ordered By: Felix Roberts on 04-08-2024 Urea nitrogen [Mass/Vol] 13 mg/dL Normal 7-18 [facility] Comment on above: Performed By: #### L 501.5200, L501.2300, L500.4050, L100.0100 ####[facility] [address] [place], [address] Sodium levelOrdered By: Jair Roberts on 04-08-2024 Sodium [Moles/Vol] 132 mmol/L Low 136-145 [facility] Comment on above: Performed By: #### L 501.5200, L501.2300, L500.4050, L100.0100 ####[facility] [address] [place], [address] Sodium level 132 mmol/L Low 136-145 [facility] TSH QnOrdered By: Ryan mar on 04-08-2024 Serum or plasma thyroid stimulating hormone (TSH) measurement (units/volume) 3.650 uIU/mL 0.358-3.74 0 [facility] Thyroid Stim Hormone (TSH)on 04-08-2024 TSH 3.650 uIU/mL Normal 0.358-3.74 0 [facility] Comment on above: Order Comment: 'TROP ' Serial specimen #1, #2 or #3: 1 Performed By: #### L 100.0100, L500.2500, L501.4020, L501.5200, L501.9520 ####[facility] [address] [place], [address] Total proteinOrdered By: Tommy Roberts on 04-08-2024 Protein [Mass/Vol] 5.6 g/dL Low 6.4-8.2 [facility] Total protein 5.6 g/dL Low 6.4-8.2 [facility] Urea nitrogen [Mass/Vol]Orde red By: Felix Roberts on 04-08-2024 Serum or plasma urea nitrogen measurement (mass/volume) 13 mg/dL 7-18 [facility] White blood cell (WBC) count Ordered By: Felix Roberts on 04-08-2024 WBC (Bld) [#/Vol] 7.8 10*3/uL 4.4-11.0 [facility] White blood cell (WBC) count 7.8 K/mm3 4.4-11.0 [facility] Abd Inc Decub and/or Erecton 04-07-2024 Abd Inc Decub and/or Erect Normal [facility] Basic Metabolic Profile (BMP )on 04-06-2024 BUN Normal 7-18 [facility] Comment on above: Result Comment: DUPL ICATE Performed By: #### L 100.0100, L500.2500 ####[facility] [address] [place], [address] BUN/CRE Normal 10-20 [facility] Comment on above: Result Comment: DUPL ICATE Performed By: #### L 100.0100, L500.2500 ####[facility] [address] [place], [address] CA,Total Normal 8.5-10.1 [facility] Comment on above: Result Comment: DUPL ICATE Performed By: #### L 100.0100, L500.2500 ####[facility] [address] [place], [address] CL Normal 98-107 [facility] Comment on above: Result Comment: DUPL ICATE Performed By: #### L 100.0100, L500.2500 ####[facility] [address] [place], [address] CO2 Normal 21.0-32.0 [facility] Comment on above: Result Comment: DUPL ICATE Performed By: #### L 100.0100, L500.2500 ####[facility] [address] [place], [address] CREAT,SERUM Normal 0.70-1.30 [facility] Comment on above: Result Comment: DUPL ICATE Performed By: #### L 100.0100, L500.2500 ####[facility] [address] [place], [address] EST GFR Normal >60 [facility] Comment on above: Result Comment: DUPL ICATE Performed By: #### L 100.0100, L500.2500 ####[facility] [address] [place], [address] EST GFR - AA Normal >60 [facility] Comment on above: Result Comment: DUPL ICATE Performed By: #### L 100.0100, L500.2500 ####[facility] [address] [place], [address] GAP Normal 5-15 [facility] Comment on above: Result Comment: DUPL ICATE Performed By: #### L 100.0100, L500.2500 ####[facility] [address] [place], [address] GLU Normal 74-106 [facility] Comment on above: Result Comment: DUPL ICATE Performed By: #### L 100.0100, L500.2500 ####[facility] [address] [place], [address] Potassium Normal 3.5-5.1 [facility] Comment on above: Result Comment: DUPL ICATE Performed By: #### L 100.0100, L500.2500 ####[facility] [address] [place], [address] Basic Metabolic Profile (BMP) Normal 136-145 [facility] Comment on above: Result Comment: DUPL ICATE Performed By: #### L 100.0100, L500.2500 ####[facility] [address] [place], [address] BUN/CRE 11.9 RATIO Normal 10-20 [facility] Comment on above: Performed By: #### L 500.2500 ####[facility] [address] [place], [address] CA,Total 8.5 mg/dL Normal 8.5-10.1 [facility] Comment on above: Performed By: #### L 500.2500 ####[facility] [address] [place], [address] Chloride [Moles/Vol] 98 mmol/L Normal 98-107 [facility] Comment on above: Performed By: #### L 500.2500 ####[facility] [address] [place], [address] CO2 [Moles/Vol] 33.0 mmol/L High 21.0-32.0 [facility] Comment on above: Performed By: #### L 500.2500 ####[facility] [address] [place], [address] Creatinine [Mass/Vol] 1.09 mg/dL Normal 0.70-1.30 [facility] Comment on above: Result Comment: The validity of the calculated GFR GFRAA in patients over70 years has not been determined. Clinical correlation isessential. Performed By: #### L 500.2500 ####[facility] [address] [place], [address] ECRCL 67.98 ml/min Normal [facility] Comment on above: Performed By: #### L 500.2500 ####[facility] [address] [place], [address] EST GFR - AA 88 mL/min Normal >60 [facility] Comment on above: Result Comment: Afri can [place] GFR Calc Performed By: #### L 500.2500 ####[facility] [address] [place], [address] GAP 6 Normal 5-15 [facility] Comment on above: Performed By: #### L 500.2500 ####[facility] [address] [place], [address] GFR/1.73 sq M.predicted among non-blacks MDRD (S/P/Bld) [Vol rate/Area] 73 mL/min/{1.73_m2} Normal >60 [facility] Comment on above: Result Comment: Non- GFR Calc Performed By: #### L 500.2500 ####[facility] [address] [place], [address] Glucose [Mass/Vol] 97 mg/dL Normal 74-106 [facility] Comment on above: Performed By: #### L 500.2500 ####[facility] [address] [place], [address] Potassium [Moles/Vol] 3.7 mmol/L Normal 3.5-5.1 [facility] Comment on above: Performed By: #### L 500.2500 ####[facility] [address] [place], [address] Sodium [Moles/Vol] 137 mmol/L Normal 136-145 [facility] Comment on above: Performed By: #### L 500.2500 ####[facility] [address] [place], [address] Urea nitrogen [Mass/Vol] 13 mg/dL Normal 7-18 [facility] Comment on above: Performed By: #### L 500.2500 ####[facility] [address] [place], [address] CBC W/Diff, Automatedon 03-27 Absolute Lymph 1.20 X10 3/uL Normal 0.83-4.51 [facility] Comment on above: Performed By: #### L 100.0100, L500.2500 ####[facility] [address] [place], [address] Absolute Neut 4.8 X10 3/uL Normal 2.0-7.7 [facility] Comment on above: Performed By: #### L 100.0100, L500.2500 ####[facility] [address] [place], [address] Basophils/100 WBC (Bld) 0.9 % Normal 0-1 [facility] Comment on above: Performed By: #### L 100.0100, L500.2500 ####[facility] [address] [place], [address] Eosinophils/100 WBC (Bld) 2.2 % Normal 0-5 [facility] Comment on above: Performed By: #### L 100.0100, L500.2500 ####[facility] [address] [place], [address] Erythrocyte distribution width (RBC) [Ratio] 12.6 % Normal 11.6-14.6 [facility] Comment on above: Performed By: #### L 100.0100, L500.2500 ####[facility] [address] [place], [address] Hematocrit (Bld) [Volume fraction] 30.5 % Low 40-54 [facility] Comment on above: Performed By: #### L 100.0100, L500.2500 ####[facility] [address] [place], [address] Hemoglobin (Bld) [Mass/Vol] 10.2 g/dL Low 13.0-16.5 [facility] Comment on above: Performed By: #### L 100.0100, L500.2500 ####[facility] [address] [place], [address] IG% 0.600 Normal 0.0-0.9 [facility] Comment on above: Result Comment: IG% - Immature Granulocytes (promyelocytes, myelocytes andmetamyelocytes) > 1% indicates that a LEFT SHIFT is Present. Performed By: #### L 100.0100, L500.2500 ####[facility] [address] [place], [address] Lymphocytes/100 WBC (Bld) 17.6 % Low 19-41 [facility] Comment on above: Performed By: #### L 100.0100, L500.2500 ####[facility] [address] [place], [address] MCH (RBC) [Entitic mass] 29.9 pg Normal 27.0-32.0 [facility] Comment on above: Performed By: #### L 100.0100, L500.2500 ####[facility] [address] [place], [address] MCHC (RBC) [Mass/Vol] 33.4 g/dL Normal 32-36 [facility] Comment on above: Performed By: #### L 100.0100, L500.2500 ####[facility] [address] [place], [address] MCV (RBC) [Entitic vol] 89.4 fL Normal 80-94 [facility] Comment on above: Performed By: #### L 100.0100, L500.2500 ####[facility] [address] [place], [address] Monocytes/100 WBC (Bld) 8.5 % Normal 0-10 [facility] Comment on above: Performed By: #### L 100.0100, L500.2500 ####[facility] [address] [place], [address] Neutrophils/100 WBC (Bld) 70.2 % High 47-70 [facility] Comment on above: Performed By: #### L 100.0100, L500.2500 ####[facility] [address] [place], [address] Nucleated RBC (Bld) [#/Vol] 0 10*3/uL Normal 0-5 [facility] Comment on above: Performed By: #### L 100.0100, L500.2500 ####[facility] [address] [place], [address] Platelet mean volume (Bld) [Entitic vol] 8.0 fL Normal 6.2-12.0 [facility] Comment on above: Performed By: #### L 100.0100, L500.2500 ####[facility] [address] [place], [address] Platelets (Bld) [#/Vol] 401 10*3/uL Normal 150-450 [facility] Comment on above: Performed By: #### L 100.0100, L500.2500 ####[facility] [address] [place], [address] RBC (Bld) [#/Vol] 3.41 10*6/uL Low 4.6-6.2 [facility] Comment on above: Performed By: #### L 100.0100, L500.2500 ####[facility] [address] [place], [address] RDW SD 41.4 fl Normal 35.1-43.9 [facility] Comment on above: Performed By: #### L 100.0100, L500.2500 ####[facility] [address] [place], [address] WBC (Bld) [#/Vol] 6.8 10*3/uL Normal 4.4-11.0 [facility] Comment on above: Performed By: #### L 100.0100, L500.2500 ####[facility] [address] [place], [address] CT Chest, Abd, Pelvis WO Con ton 04-06-2024 CT Chest, Abd, Pelvis WO Cont Normal [facility] Serum or plasma trough vanco mycin levelOrdered By: Ricci Kruse on 04-06-2024 Vancomycin trough [Mass/Vol] 19.2 ug/mL High 5.0-15.0 [facility] Vancomycin trough [Mass/Vol] Ordered By: Ricci Kruse on 04-06-2024 Serum or plasma trough vancomycin level 19.2 ug/mL High 5.0-15.0 [facility] Vancomycin, Trough Levelon 0 04-06-2024 VANCO, TROUGH 19.2 ug/mL High 5.0-15.0 [facility] Comment on above: Order Comment: Comme nts: DRAW 30 MIN PRIOR TO [id number] Result Comment: VANC OMYCIN STANDARED DRUG THERAPY TROUGH LEVEL: 5.0 - 15.0 mg/LVANCOMYCIN HIGH INTENSITY THERAPY TROUGH LEVEL: 15.0 - 20.0 mg/LHigh Intensity therapy recommended for serious lifethreatening infections include:- Fkdyieqgtk-Syerocbkcnvr-Aabhtmpap (Ventilator/Healtcare Associated)-SepsisPLEASE CONTACT PHARMACY SERVICES (#[id number]) FOR INTERPRETATIONOF RESULTS. Performed By: #### L 501.8820 ####[facility] [address] [place], [address] Abdomen Single View (Portabl e)on 04-05-2024 Abdomen Single View (Portable) Normal [facility] Basic Metabolic Profile (BMP )on 04-05-2024 BUN/CRE 11.3 RATIO Normal 10-20 [facility] Comment on above: Performed By: #### L 100.0100, L500.2500 ####[facility] [address] [place], [address] CA,Total 8.2 mg/dL Low 8.5-10.1 [facility] Comment on above: Performed By: #### L 100.0100, L500.2500 ####[facility] [address] [place], [address] Chloride [Moles/Vol] 96 mmol/L Low 98-107 [facility] Comment on above: Performed By: #### L 100.0100, L500.2500 ####[facility] [address] [place], [address] CO2 [Moles/Vol] 32.0 mmol/L Normal 21.0-32.0 [facility] Comment on above: Performed By: #### L 100.0100, L500.2500 ####[facility] [address] [place], [address] Creatinine [Mass/Vol] 1.15 mg/dL Normal 0.70-1.30 [facility] Comment on above: Result Comment: The validity of the calculated GFR GFRAA in patients over70 years has not been determined. Clinical correlation isessential. Performed By: #### L 100.0100, L500.2500 ####[facility] [address] [place], [address] ECRCL 64.43 ml/min Normal [facility] Comment on above: Performed By: #### L 100.0100, L500.2500 ####[facility] [address] [place], [address] EST GFR - AA 83 mL/min Normal >60 [facility] Comment on above: Result Comment: Afri can Tuvaluan GFR Calc Performed By: #### L 100.0100, L500.2500 ####[facility] [address] [place], [address] GAP 6 Normal 5-15 [facility] Comment on above: Performed By: #### L 100.0100, L500.2500 ####[facility] [address] [place], [address] GFR/1.73 sq M.predicted among non-blacks MDRD (S/P/Bld) [Vol rate/Area] 68 mL/min/{1.73_m2} Normal >60 [facility] Comment on above: Result Comment: Non- GFR Calc Performed By: #### L 100.0100, L500.2500 ####[facility] [address] [place], [address] Glucose [Mass/Vol] 103 mg/dL Normal 74-106 [facility] Comment on above: Result Comment: Fast ing Glucose result from 100 to 125 mg/dLsuggests IMPAIRED HOMEOSTASIS per A.D.A. criteria. Performed By: #### L 100.0100, L500.2500 ####[facility] [address] [place], [address] Potassium [Moles/Vol] 3.2 mmol/L Low 3.5-5.1 [facility] Comment on above: Performed By: #### L 100.0100, L500.2500 ####[facility] [address] [place], [address] Sodium [Moles/Vol] 134 mmol/L Low 136-145 [facility] Comment on above: Performed By: #### L 100.0100, L500.2500 ####[facility] [address] [place], [address] Urea nitrogen [Mass/Vol] 13 mg/dL Normal 7-18 [facility] Comment on above: Performed By: #### L 100.0100, L500.2500 ####[facility] [address] [place], [address] CBC W/Diff, Automatedon 02- 0-5 Absolute Lymph 0.99 X10 3/uL Normal 0.83-4.51 [facility] Comment on above: Performed By: #### L 100.0100, L500.2500 ####[facility] [address] [place], [address] Absolute Neut 4.3 X10 3/uL Normal 2.0-7.7 [facility] Comment on above: Performed By: #### L 100.0100, L500.2500 ####[facility] [address] [place], [address] Basophils/100 WBC (Bld) 0.8 % Normal 0-1 [facility] Comment on above: Performed By: #### L 100.0100, L500.2500 ####[facility] [address] [place], [address] Eosinophils/100 WBC (Bld) 2.8 % Normal 0-5 [facility] Comment on above: Performed By: #### L 100.0100, L500.2500 ####[facility] [address] [place], [address] Erythrocyte distribution width (RBC) [Ratio] 12.1 % Normal 11.6-14.6 [facility] Comment on above: Performed By: #### L 100.0100, L500.2500 ####[facility] [address] [place], [address] Hematocrit (Bld) [Volume fraction] 32.7 % Low 40-54 [facility] Comment on above: Performed By: #### L 100.0100, L500.2500 ####[facility] [address] [place], [address] Hemoglobin (Bld) [Mass/Vol] 10.5 g/dL Low 13.0-16.5 [facility] Comment on above: Performed By: #### L 100.0100, L500.2500 ####[facility] [address] [place], [address] IG% 0.300 Normal 0.0-0.9 [facility] Comment on above: Result Comment: IG% - Immature Granulocytes (promyelocytes, myelocytes andmetamyelocytes) > 1% indicates that a LEFT SHIFT is Present. Performed By: #### L 100.0100, L500.2500 ####[facility] [address] [place], [address] Lymphocytes/100 WBC (Bld) 16.3 % Low 19-41 [facility] Comment on above: Performed By: #### L 100.0100, L500.2500 ####[facility] [address] [place], [address] MCH (RBC) [Entitic mass] 29.1 pg Normal 27.0-32.0 [facility] Comment on above: Performed By: #### L 100.0100, L500.2500 ####[facility] [address] [place], [address] MCHC (RBC) [Mass/Vol] 32.1 g/dL Normal 32-36 [facility] Comment on above: Performed By: #### L 100.0100, L500.2500 ####[facility] [address] [place], [address] MCV (RBC) [Entitic vol] 90.6 fL Normal 80-94 [facility] Comment on above: Performed By: #### L 100.0100, L500.2500 ####[facility] [address] [place], [address] Monocytes/100 WBC (Bld) 8.9 % Normal 0-10 [facility] Comment on above: Performed By: #### L 100.0100, L500.2500 ####[facility] [address] [place], [address] Neutrophils/100 WBC (Bld) 70.9 % High 47-70 [facility] Comment on above: Performed By: #### L 100.0100, L500.2500 ####[facility] [address] [place], [address] Nucleated RBC (Bld) [#/Vol] 0 10*3/uL Normal 0-5 [facility] Comment on above: Performed By: #### L 100.0100, L500.2500 ####[facility] [address] [place], [address] Platelet mean volume (Bld) [Entitic vol] 8.0 fL Normal 6.2-12.0 [facility] Comment on above: Performed By: #### L 100.0100, L500.2500 ####[facility] [address] [place], [address] Platelets (Bld) [#/Vol] 392 10*3/uL Normal 150-450 [facility] Comment on above: Performed By: #### L 100.0100, L500.2500 ####[facility] [address] [place], [address] RBC (Bld) [#/Vol] 3.61 10*6/uL Low 4.6-6.2 [facility] Comment on above: Performed By: #### L 100.0100, L500.2500 ####[facility] [address] [place], [address] RDW SD 40.7 fl Normal 35.1-43.9 [facility] Comment on above: Performed By: #### L 100.0100, L500.2500 ####[facility] [address] [place], [address] WBC (Bld) [#/Vol] 6.1 10*3/uL Normal 4.4-11.0 [facility] Comment on above: Performed By: #### L 100.0100, L500.2500 ####[facility] [address] [place], [address] Serum or plasma vancomycin l evel (mass/volume)Ordered By: Liz Alvarenga on 04-05-2024 Vancomycin [Mass/Vol] 16.6 ug/mL High 0.0-15.0 [facility] Vancomycin [Mass/Vol]Ordered By: Liz Alvarenga on 04-05-2024 Serum or plasma vancomycin level (mass/volume) 16.6 ug/mL High 0.0-15.0 [facility] Vancomycin, Random Levelon 0 04-05-2024 VANCO, RANDOM 16.6 ug/mL High 0.0-15.0 [facility] Comment on above: Result Comment: VANC OMYCIN STANDARD DRUG THERAPY: CRITICAL VALUE IS > 15.0 mg/LVANCOMYCIN HIGH INTENSITY THERAPY: CRITICAL VALUE IS > 20.0 mg/LPLEASE CONTACT PHARMACY SERVICES (#0051) FOR INTERPRETATIONOF RESULTS. THIS RESULT DOES NOT REPRESENT A PEAK OR TROUGHLEVEL FOR THIS DRUG. Performed By: #### L 501.8850 ####[facility] [address] [place], [address] Basic Metabolic Profile (BMP )on 04-04-2024 BUN/CRE 10.1 RATIO Normal 10-20 [facility] Comment on above: Performed By: #### L 100.0100, L500.2500 ####[facility] [address] [place], [address] CA,Total 8.1 mg/dL Low 8.5-10.1 [facility] Comment on above: Performed By: #### L 100.0100, L500.2500 ####[facility] [address] [place], [address] Chloride [Moles/Vol] 97 mmol/L Low 98-107 [facility] Comment on above: Performed By: #### L 100.0100, L500.2500 ####[facility] [address] [place], [address] CO2 [Moles/Vol] 31.0 mmol/L Normal 21.0-32.0 [facility] Comment on above: Performed By: #### L 100.0100, L500.2500 ####[facility] [address] [place], [address] Creatinine [Mass/Vol] 1.09 mg/dL Normal 0.70-1.30 [facility] Comment on above: Result Comment: The validity of the calculated GFR GFRAA in patients over70 years has not been determined. Clinical correlation isessential. Performed By: #### L 100.0100, L500.2500 ####[facility] [address] [place], [address] ECRCL 67.98 ml/min Normal [facility] Comment on above: Performed By: #### L 100.0100, L500.2500 ####[facility] [address] [place], [address] EST GFR - AA 88 mL/min Normal >60 [facility] Comment on above: Result Comment: Afri can [place]uan GFR Calc Performed By: #### L 100.0100, L500.2500 ####[facility] [address] [place], [address] GAP 8 Normal 5-15 [facility] Comment on above: Performed By: #### L 100.0100, L500.2500 ####[facility] [address] [place], [address] GFR/1.73 sq M.predicted among non-blacks MDRD (S/P/Bld) [Vol rate/Area] 73 mL/min/{1.73_m2} Normal >60 [facility] Comment on above: Result Comment: Non- GFR Calc Performed By: #### L 100.0100, L500.2500 ####[facility] [address] [place], [address] Glucose [Mass/Vol] 89 mg/dL Normal 74-106 [facility] Comment on above: Performed By: #### L 100.0100, L500.2500 ####[facility] [address] [place], [address] Potassium [Moles/Vol] 3.6 mmol/L Normal 3.5-5.1 [facility] Comment on above: Performed By: #### L 100.0100, L500.2500 ####[facility] [address] [place], [address] Sodium [Moles/Vol] 136 mmol/L Normal 136-145 [facility] Comment on above: Performed By: #### L 100.0100, L500.2500 ####[facility] [address] [place], [address] Urea nitrogen [Mass/Vol] 11 mg/dL Normal 7-18 [facility] Comment on above: Performed By: #### L 100.0100, L500.2500 ####[facility] [address] [place], [address] CBC W/Diff, Automatedon 02-0 9-2025 Absolute Lymph 0.91 X10 3/uL Normal 0.83-4.51 [facility] Comment on above: Performed By: #### L 100.0100 ####[facility] [address] [place], [address] Absolute Neut 3.3 X10 3/uL Normal 2.0-7.7 [facility] Comment on above: Performed By: #### L 100.0100 ####[facility] [address] [place], [address] Basophils/100 WBC (Bld) 1.2 % High 0-1 [facility] Comment on above: Performed By: #### L 100.0100 ####[facility] [address] [place], [address] Eosinophils/100 WBC (Bld) 2.4 % Normal 0-5 [facility] Comment on above: Performed By: #### L 100.0100 ####[facility] [address] [place], [address] Erythrocyte distribution width (RBC) [Ratio] 12.3 % Normal 11.6-14.6 [facility] Comment on above: Performed By: #### L 100.0100 ####[facility] [address] [place], [address] Hematocrit (Bld) [Volume fraction] 31.9 % Low 40-54 [facility] Comment on above: Performed By: #### L 100.0100 ####[facility] [address] [place], [address] Hemoglobin (Bld) [Mass/Vol] 10.2 g/dL Low 13.0-16.5 [facility] Comment on above: Performed By: #### L 100.0100 ####[facility] [address] [place], [address] IG% 0.400 Normal 0.0-0.9 [facility] Comment on above: Result Comment: IG% - Immature Granulocytes (promyelocytes, myelocytes andmetamyelocytes) > 1% indicates that a LEFT SHIFT is Present. Performed By: #### L 100.0100 ####[facility] [address] [place], [address] Lymphocytes/100 WBC (Bld) 18.3 % Low 19-41 [facility] Comment on above: Performed By: #### L 100.0100 ####[facility] [address] [place], [address] MCH (RBC) [Entitic mass] 29.1 pg Normal 27.0-32.0 [facility] Comment on above: Performed By: #### L 100.0100 ####[facility] [address] [place], [address] MCHC (RBC) [Mass/Vol] 32.0 g/dL Normal 32-36 [facility] Comment on above: Performed By: #### L 100.0100 ####[facility] [address] [place], [address] MCV (RBC) [Entitic vol] 91.1 fL Normal 80-94 [facility] Comment on above: Performed By: #### L 100.0100 ####[facility] [address] [place], [address] Monocytes/100 WBC (Bld) 11.4 % High 0-10 [facility] Comment on above: Performed By: #### L 100.0100 ####[facility] [address] [place], [address] Neutrophils/100 WBC (Bld) 66.3 % Normal 47-70 [facility] Comment on above: Performed By: #### L 100.0100 ####[facility] [address] [place], [address] Nucleated RBC (Bld) [#/Vol] 0 10*3/uL Normal 0-5 [facility] Comment on above: Performed By: #### L 100.0100 ####[facility] [address] [place], [address] Platelet mean volume (Bld) [Entitic vol] 8.1 fL Normal 6.2-12.0 [facility] Comment on above: Performed By: #### L 100.0100 ####[facility] [address] [place], [address] Platelets (Bld) [#/Vol] 410 10*3/uL Normal 150-450 [facility] Comment on above: Performed By: #### L 100.0100 ####[facility] [address] [place], [address] RBC (Bld) [#/Vol] 3.50 10*6/uL Low 4.6-6.2 [facility] Comment on above: Performed By: #### L 100.0100 ####[facility] [address] [place], [address] RDW SD 41.0 fl Normal 35.1-43.9 [facility] Comment on above: Performed By: #### L 100.0100 ####[facility] [address] [place], [address] WBC (Bld) [#/Vol] 5.0 10*3/uL Normal 4.4-11.0 [facility] Comment on above: Performed By: #### L 100.0100 ####[facility] [address] [place], [address] Absolute Neut Normal 2.0-7.7 [facility] Comment on above: Result Comment: SPEC IMEN CLOTTED Performed By: #### L 100.0100, L500.2500 ####[facility] [address] [place], [address] HCT Normal 40-54 [facility] Comment on above: Result Comment: SPEC IMEN CLOTTED Performed By: #### L 100.0100, L500.2500 ####[facility] [address] [place], [address] HGB Normal 13.0-16.5 [facility] Comment on above: Result Comment: SPEC IMEN CLOTTED Performed By: #### L 100.0100, L500.2500 ####[facility] [address] [place], [address] MCH Normal 27.0-32.0 [facility] Comment on above: Result Comment: SPEC IMEN CLOTTED Performed By: #### L 100.0100, L500.2500 ####[facility] [address] [place], [address] MCHC Normal 32-36 [facility] Comment on above: Result Comment: SPEC IMEN CLOTTED Performed By: #### L 100.0100, L500.2500 ####[facility] [address] [place], [address] MCV Normal 80-94 [facility] Comment on above: Result Comment: SPEC IMEN CLOTTED Performed By: #### L 100.0100, L500.2500 ####[facility] [address] [place], [address] NEUT% Normal 47-70 [facility] Comment on above: Result Comment: SPEC IMEN CLOTTED Performed By: #### L 100.0100, L500.2500 ####[facility] [address] [place], [address] PLT Normal 150-450 [facility] Comment on above: Result Comment: SPEC IMEN CLOTTED Performed By: #### L 100.0100, L500.2500 ####[facility] [address] [place], [address] RBC Normal 4.6-6.2 [facility] Comment on above: Result Comment: SPEC IMEN CLOTTED Performed By: #### L 100.0100, L500.2500 ####[facility] [address] [place], [address] RDW CV Normal 11.6-14.6 [facility] Comment on above: Result Comment: SPEC IMEN CLOTTED Performed By: #### L 100.0100, L500.2500 ####[facility] [address] [place], [address] RDW SD Normal 35.1-43.9 [facility] Comment on above: Result Comment: SPEC IMEN CLOTTED Performed By: #### L 100.0100, L500.2500 ####[facility] [address] [place], [address] WBC Normal 4.4-11.0 [facility] Comment on above: Result Comment: SPEC IMEN CLOTTED Performed By: #### L 100.0100, L500.2500 ####[facility] [address] [place], [address] Vancomycin, Random Levelon 0 - VANCO, RANDOM 21.2 ug/mL High 0.0-15.0 [facility] Comment on above: Result Comment: VANC OMYCIN STANDARD DRUG THERAPY: CRITICAL VALUE IS > 15.0 mg/LVANCOMYCIN HIGH INTENSITY THERAPY: CRITICAL VALUE IS > 20.0 mg/LPLEASE CONTACT PHARMACY SERVICES (#8397) FOR INTERPRETATIONOF RESULTS. THIS RESULT DOES NOT REPRESENT A PEAK OR TROUGHLEVEL FOR THIS DRUG. Performed By: #### L 501.8850 ####[facility] [address] [place], [address] Vancomycin, Trough Levelon 0 04-04-2024 VANCO, TROUGH 26.5 ug/mL High 5.0-15.0 [facility] Comment on above: Order Comment: Comme nts: Trough to be drawn 30 mins prior to scheduled [id number] Result Comment: VANC OMYCIN STANDARED DRUG THERAPY TROUGH LEVEL: 5.0 - 15.0 mg/LVANCOMYCIN HIGH INTENSITY THERAPY TROUGH LEVEL: 15.0 - 20.0 mg/LHigh Intensity therapy recommended for serious lifethreatening infections include:- Goprtvnubp-Ziqdwiijbawl-Amlznzciw (Ventilator/Healtcare Associated)-SepsisPLEASE CONTACT PHARMACY SERVICES (#0140) FOR INTERPRETATIONOF RESULTS. Performed By: #### L 501.8820 ####[facility] [address] [place], [address] Abd Decub and/or Erect(Tonia blon 04-03-2024 Abd Decub and/or Erect(Portabl Normal [facility] Basic Metabolic Profile (BMP )on 04-03-2024 BUN/CRE 11.9 RATIO Normal 10-20 [facility] Comment on above: Performed By: #### L 500.2500, L100.0100 ####[facility] [address] [place], [address] CA,Total 8.5 mg/dL Normal 8.5-10.1 [facility] Comment on above: Performed By: #### L 500.2500, L100.0100 ####[facility] [address] [place], [address] Chloride [Moles/Vol] 97 mmol/L Low 98-107 [facility] Comment on above: Performed By: #### L 500.2500, L100.0100 ####[facility] [address] [place], [address] CO2 [Moles/Vol] 34.0 mmol/L High 21.0-32.0 [facility] Comment on above: Performed By: #### L 500.2500, L100.0100 ####[facility] [address] [place], [address] Creatinine [Mass/Vol] 0.84 mg/dL Normal 0.70-1.30 [facility] Comment on above: Result Comment: The validity of the calculated GFR GFRAA in patients over70 years has not been determined. Clinical correlation isessential. Performed By: #### L 500.2500, L100.0100 ####[facility] [address] [place], [address] ECRCL 85.76 ml/min Normal [facility] Comment on above: Performed By: #### L 500.2500, L100.0100 ####[facility] [address] [place], [address] EST GFR - AA 118 mL/min Normal >60 [facility] Comment on above: Result Comment: Afri can Tu[place]uan GFR Calc Performed By: #### L 500.2500, L100.0100 ####[facility] [address] [place], [address] GAP 5 Normal 5-15 [facility] Comment on above: Performed By: #### L 500.2500, L100.0100 ####[facility] [address] [place], [address] GFR/1.73 sq M.predicted among non-blacks MDRD (S/P/Bld) [Vol rate/Area] 98 mL/min/{1.73_m2} Normal >60 [facility] Comment on above: Result Comment: Non- GFR Calc Performed By: #### L 500.2500, L100.0100 ####[facility] [address] [place], [address] Glucose [Mass/Vol] 108 mg/dL High 74-106 [facility] Comment on above: Result Comment: Fast ing Glucose result from 100 to 125 mg/dLsuggests IMPAIRED HOMEOSTASIS per A.D.A. criteria. Performed By: #### L 500.2500, L100.0100 ####[facility] [address] [place], [address] Potassium [Moles/Vol] 3.0 mmol/L Low 3.5-5.1 [facility] Comment on above: Performed By: #### L 500.2500, L100.0100 ####[facility] [address] [place], [address] Sodium [Moles/Vol] 136 mmol/L Normal 136-145 [facility] Comment on above: Performed By: #### L 500.2500, L100.0100 ####[facility] [address] [place], [address] Urea nitrogen [Mass/Vol] 10 mg/dL Normal 7-18 [facility] Comment on above: Performed By: #### L 500.2500, L100.0100 ####[facility] [address] [place], [address] CBC W/Diff, Automatedon 02-0 -2024 Absolute Lymph 0.97 X10 3/uL Normal 0.83-4.51 [facility] Comment on above: Performed By: #### L 500.2500, L100.0100 ####[facility] [address] [place], [address] Absolute Neut 4.4 X10 3/uL Normal 2.0-7.7 [facility] Comment on above: Performed By: #### L 500.2500, L100.0100 ####[facility] [address] [place], [address] Basophils/100 WBC (Bld) 0.8 % Normal 0-1 [facility] Comment on above: Performed By: #### L 500.2500, L100.0100 ####[facility] [address] [place], [address] Eosinophils/100 WBC (Bld) 2.6 % Normal 0-5 [facility] Comment on above: Performed By: #### L 500.2500, L100.0100 ####[facility] [address] [place], [address] Erythrocyte distribution width (RBC) [Ratio] 12.2 % Normal 11.6-14.6 [facility] Comment on above: Performed By: #### L 500.2500, L100.0100 ####[facility] [address] [place], [address] Hematocrit (Bld) [Volume fraction] 31.2 % Low 40-54 [facility] Comment on above: Performed By: #### L 500.2500, L100.0100 ####[facility] [address] [place], [address] Hemoglobin (Bld) [Mass/Vol] 9.9 g/dL Low 13.0-16.5 [facility] Comment on above: Performed By: #### L 500.2500, L100.0100 ####[facility] [address] [place], [address] IG% 0.500 Normal 0.0-0.9 [facility] Comment on above: Result Comment: IG% - Immature Granulocytes (promyelocytes, myelocytes andmetamyelocytes) > 1% indicates that a LEFT SHIFT is Present. Performed By: #### L 500.2500, L100.0100 ####[facility] [address] [place], [address] Lymphocytes/100 WBC (Bld) 15.5 % Low 19-41 [facility] Comment on above: Performed By: #### L 500.2500, L100.0100 ####[facility] [address] [place], [address] MCH (RBC) [Entitic mass] 29.2 pg Normal 27.0-32.0 [facility] Comment on above: Performed By: #### L 500.2500, L100.0100 ####[facility] [address] [place], [address] MCHC (RBC) [Mass/Vol] 31.7 g/dL Low 32-36 [facility] Comment on above: Performed By: #### L 500.2500, L100.0100 ####[facility] [address] [place], [address] MCV (RBC) [Entitic vol] 92.0 fL Normal 80-94 [facility] Comment on above: Performed By: #### L 500.2500, L100.0100 ####[facility] [address] [place], [address] Monocytes/100 WBC (Bld) 11.0 % High 0-10 [facility] Comment on above: Performed By: #### L 500.2500, L100.0100 ####[facility] [address] [place], [address] Neutrophils/100 WBC (Bld) 69.6 % Normal 47-70 [facility] Comment on above: Performed By: #### L 500.2500, L100.0100 ####[facility] [address] [place], [address] Nucleated RBC (Bld) [#/Vol] 0 10*3/uL Normal 0-5 [facility] Comment on above: Performed By: #### L 500.2500, L100.0100 ####[facility] [address] [place], [address] Platelet mean volume (Bld) [Entitic vol] 8.2 fL Normal 6.2-12.0 [facility] Comment on above: Performed By: #### L 500.2500, L100.0100 ####[facility] [address] [place], [address] Platelets (Bld) [#/Vol] 416 10*3/uL Normal 150-450 [facility] Comment on above: Performed By: #### L 500.2500, L100.0100 ####[facility] [address] [place], [address] RBC (Bld) [#/Vol] 3.39 10*6/uL Low 4.6-6.2 [facility] Comment on above: Performed By: #### L 500.2500, L100.0100 ####[facility] [address] [place], [address] RDW SD 41.1 fl Normal 35.1-43.9 [facility] Comment on above: Performed By: #### L 500.2500, L100.0100 ####[facility] [address] [place], [address] WBC (Bld) [#/Vol] 6.3 10*3/uL Normal 4.4-11.0 [facility] Comment on above: Performed By: #### L 500.2500, L100.0100 ####[facility] [address] [place], [address] Basic Metabolic Profile (BMP )on 04-02-2024 BUN/CRE 18.1 RATIO Normal 10-20 [facility] Comment on above: Performed By: #### L 100.0100, L500.2500 ####[facility] [address] [place], [address] CA,Total 8.5 mg/dL Normal 8.5-10.1 [facility] Comment on above: Performed By: #### L 100.0100, L500.2500 ####[facility] [address] [place], [address] Chloride [Moles/Vol] 97 mmol/L Low 98-107 [facility] Comment on above: Performed By: #### L 100.0100, L500.2500 ####[facility] [address] [place], [address] CO2 [Moles/Vol] 32.0 mmol/L Normal 21.0-32.0 [facility] Comment on above: Performed By: #### L 100.0100, L500.2500 ####[facility] [address] [place], [address] Creatinine [Mass/Vol] 0.61 mg/dL Low 0.70-1.30 [facility] Comment on above: Result Comment: The validity of the calculated GFR GFRAA in patients over70 years has not been determined. Clinical correlation isessential. Performed By: #### L 100.0100, L500.2500 ####[facility] [address] [place], [address] ECRCL 114.19 ml/min Normal [facility] Comment on above: Performed By: #### L 100.0100, L500.2500 ####[facility] [address] [place], [address] EST GFR - AA 172 mL/min Normal >60 [facility] Comment on above: Result Comment: Afri can Tuvaluan GFR Calc Performed By: #### L 100.0100, L500.2500 ####[facility] [address] [place], [address] GAP 9 Normal 5-15 [facility] Comment on above: Performed By: #### L 100.0100, L500.2500 ####[facility] [address] [place], [address] GFR/1.73 sq M.predicted among non-blacks MDRD (S/P/Bld) [Vol rate/Area] 142 mL/min/{1.73_m2} Normal >60 [facility] Comment on above: Result Comment: Non- GFR Calc Performed By: #### L 100.0100, L500.2500 ####[facility] [address] [place], [address] Glucose [Mass/Vol] 74 mg/dL Normal 74-106 [facility] Comment on above: Performed By: #### L 100.0100, L500.2500 ####[facility] [address] [place], [address] Potassium [Moles/Vol] 3.0 mmol/L Low 3.5-5.1 [facility] Comment on above: Performed By: #### L 100.0100, L500.2500 ####[facility] [address] [place], [address] Sodium [Moles/Vol] 138 mmol/L Normal 136-145 [facility] Comment on above: Performed By: #### L 100.0100, L500.2500 ####[facility] [address] [place], [address] Urea nitrogen [Mass/Vol] 11 mg/dL Normal 7-18 [facility] Comment on above: Performed By: #### L 100.0100, L500.2500 ####[facility] [address] [place], [address] CBC W/Diff, Automatedon 02-0 -2024 Absolute Lymph 0.84 X10 3/uL Normal 0.83-4.51 [facility] Comment on above: Performed By: #### L 100.0100, L500.2500 ####[facility] [address] [place], [address] Absolute Neut 5.0 X10 3/uL Normal 2.0-7.7 [facility] Comment on above: Performed By: #### L 100.0100, L500.2500 ####[facility] [address] [place], [address] Basophils/100 WBC (Bld) 0.6 % Normal 0-1 [facility] Comment on above: Performed By: #### L 100.0100, L500.2500 ####[facility] [address] [place], [address] Eosinophils/100 WBC (Bld) 0.6 % Normal 0-5 [facility] Comment on above: Performed By: #### L 100.0100, L500.2500 ####[facility] [address] [place], [address] Erythrocyte distribution width (RBC) [Ratio] 12.2 % Normal 11.6-14.6 [facility] Comment on above: Performed By: #### L 100.0100, L500.2500 ####[facility] [address] [place], [address] Hematocrit (Bld) [Volume fraction] 28.4 % Low 40-54 [facility] Comment on above: Performed By: #### L 100.0100, L500.2500 ####[facility] [address] [place], [address] Hemoglobin (Bld) [Mass/Vol] 9.1 g/dL Low 13.0-16.5 [facility] Comment on above: Performed By: #### L 100.0100, L500.2500 ####[facility] [address] [place], [address] IG% 0.400 Normal 0.0-0.9 [facility] Comment on above: Result Comment: IG% - Immature Granulocytes (promyelocytes, myelocytes andmetamyelocytes) > 1% indicates that a LEFT SHIFT is Present. Performed By: #### L 100.0100, L500.2500 ####[facility] [address] [place], [address] Lymphocytes/100 WBC (Bld) 12.6 % Low 19-41 [facility] Comment on above: Performed By: #### L 100.0100, L500.2500 ####[facility] [address] [place], [address] MCH (RBC) [Entitic mass] 29.6 pg Normal 27.0-32.0 [facility] Comment on above: Performed By: #### L 100.0100, L500.2500 ####[facility] [address] [place], [address] MCHC (RBC) [Mass/Vol] 32.0 g/dL Normal 32-36 [facility] Comment on above: Performed By: #### L 100.0100, L500.2500 ####[facility] [address] [place], [address] MCV (RBC) [Entitic vol] 92.5 fL Normal 80-94 [facility] Comment on above: Performed By: #### L 100.0100, L500.2500 ####[facility] [address] [place], [address] Monocytes/100 WBC (Bld) 11.2 % High 0-10 [facility] Comment on above: Performed By: #### L 100.0100, L500.2500 ####[facility] [address] [place], [address] Neutrophils/100 WBC (Bld) 74.6 % High 47-70 [facility] Comment on above: Performed By: #### L 100.0100, L500.2500 ####[facility] [address] [place], [address] Nucleated RBC (Bld) [#/Vol] 0 10*3/uL Normal 0-5 [facility] Comment on above: Performed By: #### L 100.0100, L500.2500 ####[facility] [address] [place], [address] Platelet mean volume (Bld) [Entitic vol] 7.8 fL Normal 6.2-12.0 [facility] Comment on above: Performed By: #### L 100.0100, L500.2500 ####[facility] [address] [place], [address] Platelets (Bld) [#/Vol] 362 10*3/uL Normal 150-450 [facility] Comment on above: Performed By: #### L 100.0100, L500.2500 ####[facility] [address] [place], [address] RBC (Bld) [#/Vol] 3.07 10*6/uL Low 4.6-6.2 [facility] Comment on above: Performed By: #### L 100.0100, L500.2500 ####[facility] [address] [place], [address] RDW SD 41.1 fl Normal 35.1-43.9 [facility] Comment on above: Performed By: #### L 100.0100, L500.2500 ####[facility] [address] [place], [address] WBC (Bld) [#/Vol] 6.7 10*3/uL Normal 4.4-11.0 [facility] Comment on above: Performed By: #### L 100.0100, L500.2500 ####[facility] [address] [place], [address] Culture, Blood (WB)on 2024 CUB Blood cultures x2, f rom two different sites No growth in 5 days. Normal [facility] Comment on above: Performed By: #### L 503.6005, M200.1000 ####[facility] [address] [place], [address] Vancomycin, Random Levelon 0 04-02-2024 VANCO, RANDOM 16.8 ug/mL High 0.0-15.0 [facility] Comment on above: Result Comment: VANC OMYCIN STANDARD DRUG THERAPY: CRITICAL VALUE IS > 15.0 mg/LVANCOMYCIN HIGH INTENSITY THERAPY: CRITICAL VALUE IS > 20.0 mg/LPLEASE CONTACT PHARMACY SERVICES (#8398) FOR INTERPRETATIONOF RESULTS. THIS RESULT DOES NOT REPRESENT A PEAK OR TROUGHLEVEL FOR THIS DRUG. Performed By: #### L 382.8848 ####[facility] [address] [place], [address] Vancomycin, Trough Levelon 0 04-02-2024 VANCO, TROUGH 26.9 ug/mL High 5.0-15.0 [facility] Comment on above: Order Comment: Comme nts: Trough to be drawn 30 mins prior to scheduled [id number] Result Comment: VANC OMYCIN STANDARED DRUG THERAPY TROUGH LEVEL: 5.0 - 15.0 mg/LVANCOMYCIN HIGH INTENSITY THERAPY TROUGH LEVEL: 15.0 - 20.0 mg/LHigh Intensity therapy recommended for serious lifethreatening infections include:- Aruuvuuidp-Pealhjaptqvv-Qyfyizprv (Ventilator/Healtcare Associated)-SepsisPLEASE CONTACT PHARMACY SERVICES (#8337) FOR INTERPRETATIONOF RESULTS. Performed By: #### L 664.8856 ####[facility] [address] [place], [place], [id number] Abdomen Single View (Portabl e)on 04-01-2024 Abdomen Single View (Portable) Normal [facility] Basic Metabolic Profile (BMP )on 04-01-2024 BUN/CRE 19.0 RATIO Normal 10-20 [facility] Comment on above: Performed By: #### L 100.0100, L500.2500 ####[facility] [address] [place], [address] CA,Total 8.5 mg/dL Normal 8.5-10.1 [facility] Comment on above: Performed By: #### L 100.0100, L500.2500 ####[facility] [address] [place], [address] Chloride [Moles/Vol] 96 mmol/L Low 98-107 [facility] Comment on above: Performed By: #### L 100.0100, L500.2500 ####[facility] [address] [place], [address] CO2 [Moles/Vol] 31.0 mmol/L Normal 21.0-32.0 [facility] Comment on above: Performed By: #### L 100.0100, L500.2500 ####[facility] [address] [place], [address] Creatinine [Mass/Vol] 0.47 mg/dL Low 0.70-1.30 [facility] Comment on above: Result Comment: The validity of the calculated GFR GFRAA in patients over70 years has not been determined. Clinical correlation isessential. Performed By: #### L 100.0100, L500.2500 ####[facility] [address] [place], [address] ECRCL 148.21 ml/min Normal [facility] Comment on above: Performed By: #### L 100.0100, L500.2500 ####[facility] [address] [place], [address] EST GFR - AA 230 mL/min Normal >60 [facility] Comment on above: Result Comment: Afri can [place]uan GFR Calc Performed By: #### L 100.0100, L500.2500 ####[facility] [address] [place], [address] GAP 9 Normal 5-15 [facility] Comment on above: Performed By: #### L 100.0100, L500.2500 ####[facility] [address] [place], [address] GFR/1.73 sq M.predicted among non-blacks MDRD (S/P/Bld) [Vol rate/Area] 190 mL/min/{1.73_m2} Normal >60 [facility] Comment on above: Result Comment: Non- GFR Calc Performed By: #### L 100.0100, L500.2500 ####[facility] [address] [place], [address] Glucose [Mass/Vol] 86 mg/dL Normal 74-106 [facility] Comment on above: Performed By: #### L 100.0100, L500.2500 ####[facility] [address] [place], [address] Potassium [Moles/Vol] 3.4 mmol/L Low 3.5-5.1 [facility] Comment on above: Performed By: #### L 100.0100, L500.2500 ####[facility] [address] [place], [address] Sodium [Moles/Vol] 136 mmol/L Normal 136-145 [facility] Comment on above: Performed By: #### L 100.0100, L500.2500 ####[facility] [address] [place], [address] Urea nitrogen [Mass/Vol] 9 mg/dL Normal 7-18 [facility] Comment on above: Performed By: #### L 100.0100, L500.2500 ####[facility] [address] [place], [address] CBC W/Diff, Automatedon 0 Absolute Lymph 0.83 X10 3/uL Normal 0.83-4.51 [facility] Comment on above: Performed By: #### L 100.0100, L500.2500 ####[facility] [address] [place], [address] Absolute Neut 7.3 X10 3/uL Normal 2.0-7.7 [facility] Comment on above: Performed By: #### L 100.0100, L500.2500 ####[facility] [address] [place], [address] Basophils/100 WBC (Bld) 0.7 % Normal 0-1 [facility] Comment on above: Performed By: #### L 100.0100, L500.2500 ####[facility] [address] [place], [address] Eosinophils/100 WBC (Bld) 0.5 % Normal 0-5 [facility] Comment on above: Performed By: #### L 100.0100, L500.2500 ####[facility] [address] [place], [address] Erythrocyte distribution width (RBC) [Ratio] 12.3 % Normal 11.6-14.6 [facility] Comment on above: Performed By: #### L 100.0100, L500.2500 ####[facility] [address] [place], [address] Hematocrit (Bld) [Volume fraction] 30.9 % Low 40-54 [facility] Comment on above: Performed By: #### L 100.0100, L500.2500 ####[facility] [address] [place], [address] Hemoglobin (Bld) [Mass/Vol] 10.0 g/dL Low 13.0-16.5 [facility] Comment on above: Performed By: #### L 100.0100, L500.2500 ####[facility] [address] [place], [address] IG% 0.700 Normal 0.0-0.9 [facility] Comment on above: Result Comment: IG% - Immature Granulocytes (promyelocytes, myelocytes andmetamyelocytes) > 1% indicates that a LEFT SHIFT is Present. Performed By: #### L 100.0100, L500.2500 ####[facility] [address] [place], [address] Lymphocytes/100 WBC (Bld) 9.0 % Low 19-41 [facility] Comment on above: Performed By: #### L 100.0100, L500.2500 ####[facility] [address] [place], [address] MCH (RBC) [Entitic mass] 30.0 pg Normal 27.0-32.0 [facility] Comment on above: Performed By: #### L 100.0100, L500.2500 ####[facility] [address] [place], [address] MCHC (RBC) [Mass/Vol] 32.4 g/dL Normal 32-36 [facility] Comment on above: Performed By: #### L 100.0100, L500.2500 ####[facility] [address] [place], [address] MCV (RBC) [Entitic vol] 92.8 fL Normal 80-94 [facility] Comment on above: Performed By: #### L 100.0100, L500.2500 ####[facility] [address] [place], [address] Monocytes/100 WBC (Bld) 9.7 % Normal 0-10 [facility] Comment on above: Performed By: #### L 100.0100, L500.2500 ####[facility] [address] [place], [address] Neutrophils/100 WBC (Bld) 79.4 % High 47-70 [facility] Comment on above: Performed By: #### L 100.0100, L500.2500 ####[facility] [address] [place], [address] Nucleated RBC (Bld) [#/Vol] 0 10*3/uL Normal 0-5 [facility] Comment on above: Performed By: #### L 100.0100, L500.2500 ####[facility] [address] [place], [address] Platelet mean volume (Bld) [Entitic vol] 8.1 fL Normal 6.2-12.0 [facility] Comment on above: Performed By: #### L 100.0100, L500.2500 ####[facility] [address] [place], [address] Platelets (Bld) [#/Vol] 446 10*3/uL Normal 150-450 [facility] Comment on above: Performed By: #### L 100.0100, L500.2500 ####[facility] [address] [place], [address] RBC (Bld) [#/Vol] 3.33 10*6/uL Low 4.6-6.2 [facility] Comment on above: Performed By: #### L 100.0100, L500.2500 ####[facility] [address] [place], [address] RDW SD 41.6 fl Normal 35.1-43.9 [facility] Comment on above: Performed By: #### L 100.0100, L500.2500 ####[facility] [address] [place], [address] WBC (Bld) [#/Vol] 9.2 10*3/uL Normal 4.4-11.0 [facility] Comment on above: Performed By: #### L 100.0100, L500.2500 ####[facility] [address] [place], [address] Abdomen Single View (Portabl e)on 03-31-2024 Abdomen Single View (Portable) Normal [facility] Abdomen Single View (Portable) Normal [facility] Abdomen Single View (Portable) Normal [facility] Abdomen/Pelvis WITH Contrast on 03-31-2024 Abdomen/Pelvis WITH Contrast Normal [facility] Arterial patency Wrist arter y --pre arterial punctureOrdered By: Liz Alvarenga on 03-31-2024 Assessment of wrist artery patency prior to arterial puncture Positive [facility] Assessment of wrist artery p atency prior to arterial punctureOrdered By: Liz Alvarenga on 03-31-2024 Arterial patency Wrist artery --pre arterial puncture Positive [facility] Base excess Calc (BldV) [Mol es/Vol]Ordered By: Liz Alvarenga on 03-31-2024 Blood base excess determination 5 mmol/L High -2-2 [facility] Basic Metabolic Profile (BMP )on 03-31-2024 BUN/CRE 13.7 RATIO Normal 10-20 [facility] Comment on above: Performed By: #### L 100.0100, L500.2500 ####[facility] [address] [place], [address] CA,Total 8.7 mg/dL Normal 8.5-10.1 [facility] Comment on above: Performed By: #### L 100.0100, L500.2500 ####[facility] [address] [place], [address] Chloride [Moles/Vol] 94 mmol/L Low 98-107 [facility] Comment on above: Performed By: #### L 100.0100, L500.2500 ####[facility] [address] [place], [address] CO2 [Moles/Vol] 29.0 mmol/L Normal 21.0-32.0 [facility] Comment on above: Performed By: #### L 100.0100, L500.2500 ####[facility] [address] [place], [address] Creatinine [Mass/Vol] 0.58 mg/dL Low 0.70-1.30 [facility] Comment on above: Result Comment: The validity of the calculated GFR GFRAA in patients over70 years has not been determined. Clinical correlation isessential. Performed By: #### L 100.0100, L500.2500 ####[facility] [address] [place], [address] ECRCL 121.22 ml/min Normal [facility] Comment on above: Performed By: #### L 100.0100, L500.2500 ####[facility] [address] [place], [address] EST GFR - AA 182 mL/min Normal >60 [facility] Comment on above: Result Comment: Afri can [place] GFR Calc Performed By: #### L 100.0100, L500.2500 ####[facility] [address] [place], [address] GAP 9 Normal 5-15 [facility] Comment on above: Performed By: #### L 100.0100, L500.2500 ####[facility] [address] [place], [address] GFR/1.73 sq M.predicted among non-blacks MDRD (S/P/Bld) [Vol rate/Area] 150 mL/min/{1.73_m2} Normal >60 [facility] Comment on above: Result Comment: Non- GFR Calc Performed By: #### L 100.0100, L500.2500 ####[facility] [address] [place], [address] Glucose [Mass/Vol] 114 mg/dL High 74-106 [facility] Comment on above: Result Comment: Fast ing Glucose result from 100 to 125 mg/dLsuggests IMPAIRED HOMEOSTASIS per A.D.A. criteria. Performed By: #### L 100.0100, L500.2500 ####[facility] [address] [place], [address] Potassium [Moles/Vol] 3.5 mmol/L Normal 3.5-5.1 [facility] Comment on above: Performed By: #### L 100.0100, L500.2500 ####[facility] [address] [place], [address] Sodium [Moles/Vol] 132 mmol/L Low 136-145 [facility] Comment on above: Performed By: #### L 100.0100, L500.2500 ####[facility] [address] [place], [address] Urea nitrogen [Mass/Vol] 8 mg/dL Normal 7-18 [facility] Comment on above: Performed By: #### L 100.0100, L500.2500 ####[facility] [address] [place], [address] Blood Gases by [facility] 025 DEEDEE TEST Positive Normal [facility] Comment on above: Performed By: #### L 9000.0800 ####[facility] [address] [place], [address] Base excess Calc (Bld) [Moles/Vol] 5 mmol/L High -2 to +2 [facility] Comment on above: Performed By: #### L 9000.0800 ####[facility] [address] [place], [address] Blood Gas Type ART Normal [facility] Comment on above: Performed By: #### L 9000.0800 ####[facility] [address] [place], [address] CO2 [Moles/Vol] 32 mmol/L Normal [facility] Comment on above: Performed By: #### L 9000.0800 ####[facility] [address] [place], [address] FI02 9.0 Normal [facility] Comment on above: Performed By: #### L 9000.0800 ####[facility] [address] [place], [address] HCO3 (Bld) [Moles/Vol] 30.5 mmol/L High 22-26 [facility] Comment on above: Performed By: #### L 9000.0800 ####[facility] [address] [place], [address] Mode Not entered Normal [facility] Comment on above: Performed By: #### L 9000.0800 ####[facility] [address] [place], [address] O2 Delivery Dev HFNC Normal [facility] Comment on above: Performed By: #### L 9000.0800 ####[facility] [address] [place], [address] pCO2 53.9 mmHg High 35-45 [facility] Comment on above: Performed By: #### L 9000.0800 ####[facility] [address] [place], [address] pH (Bld) 7.36 [pH] Normal 7.35-7.45 [facility] Comment on above: Performed By: #### L 9000.0800 ####[facility] [address] [place], [address] PO2 105 mmHG High 75-100 [facility] Comment on above: Performed By: #### L 9000.0800 ####[facility] [address] [place], [address] SITE L Radial Normal [facility] Comment on above: Performed By: #### L 9000.0800 ####[facility] [address] [place], [address] SO2 98 Normal 95-99 [facility] Comment on above: Performed By: #### L 9000.0800 ####[facility] [address] [place], [address] Blood base excess determinat ionOrdered By: Lizquincy Alvarenga on 03-31-2024 Base excess Calc (BldV) [Moles/Vol] 5 mmol/L High -2-2 [facility] Blood bicarbonate measuremen tOrdered By: Lizquincy Alvarenga on 03-31-2024 HCO3 (Bld) [Moles/Vol] 30.5 mmol/L [facility] Blood bicarbonate measurement 30.5 mmol/L [facility] CBC W/Diff, Automatedon Absolute Lymph 0.86 X10 3/uL Normal 0.83-4.51 [facility] Comment on above: Performed By: #### L 100.0100, L500.2500 ####[facility] [address] [place], [address] Absolute Neut 8.7 X10 3/uL High 2.0-7.7 [facility] Comment on above: Performed By: #### L 100.0100, L500.2500 ####[facility] [address] [place], [address] Basophils/100 WBC (Bld) 0.3 % Normal 0-1 [facility] Comment on above: Performed By: #### L 100.0100, L500.2500 ####[facility] [address] [place], [address] Eosinophils/100 WBC (Bld) 0.2 % Normal 0-5 [facility] Comment on above: Performed By: #### L 100.0100, L500.2500 ####[facility] [address] [place], [address] Erythrocyte distribution width (RBC) [Ratio] 12.2 % Normal 11.6-14.6 [facility] Comment on above: Performed By: #### L 100.0100, L500.2500 ####[facility] [address] [place], [address] Hematocrit (Bld) [Volume fraction] 34.0 % Low 40-54 [facility] Comment on above: Performed By: #### L 100.0100, L500.2500 ####[facility] [address] [place], [address] Hemoglobin (Bld) [Mass/Vol] 10.9 g/dL Low 13.0-16.5 [facility] Comment on above: Performed By: #### L 100.0100, L500.2500 ####[facility] [address] [place], [address] IG% 0.400 Normal 0.0-0.9 [facility] Comment on above: Result Comment: IG% - Immature Granulocytes (promyelocytes, myelocytes andmetamyelocytes) > 1% indicates that a LEFT SHIFT is Present. Performed By: #### L 100.0100, L500.2500 ####[facility] [address] [place], [address] Lymphocytes/100 WBC (Bld) 8.1 % Low 19-41 [facility] Comment on above: Performed By: #### L 100.0100, L500.2500 ####[facility] [address] [place], [address] MCH (RBC) [Entitic mass] 29.2 pg Normal 27.0-32.0 [facility] Comment on above: Performed By: #### L 100.0100, L500.2500 ####[facility] [address] [place], [address] MCHC (RBC) [Mass/Vol] 32.1 g/dL Normal 32-36 [facility] Comment on above: Performed By: #### L 100.0100, L500.2500 ####[facility] [address] [place], [address] MCV (RBC) [Entitic vol] 91.2 fL Normal 80-94 [facility] Comment on above: Performed By: #### L 100.0100, L500.2500 ####[facility] [address] [place], [address] Monocytes/100 WBC (Bld) 9.5 % Normal 0-10 [facility] Comment on above: Performed By: #### L 100.0100, L500.2500 ####[facility] [address] [place], [address] Neutrophils/100 WBC (Bld) 81.5 % High 47-70 [facility] Comment on above: Performed By: #### L 100.0100, L500.2500 ####[facility] [address] [place], [address] Nucleated RBC (Bld) [#/Vol] 0 10*3/uL Normal 0-5 [facility] Comment on above: Performed By: #### L 100.0100, L500.2500 ####[facility] [address] [place], [address] Platelet mean volume (Bld) [Entitic vol] 7.7 fL Normal 6.2-12.0 [facility] Comment on above: Performed By: #### L 100.0100, L500.2500 ####[facility] [address] [place], [address] Platelets (Bld) [#/Vol] 472 10*3/uL High 150-450 [facility] Comment on above: Performed By: #### L 100.0100, L500.2500 ####[facility] [address] [place], [address] RBC (Bld) [#/Vol] 3.73 10*6/uL Low 4.6-6.2 [facility] Comment on above: Performed By: #### L 100.0100, L500.2500 ####[facility] [address] [place], [address] RDW SD 40.6 fl Normal 35.1-43.9 [facility] Comment on above: Performed By: #### L 100.0100, L500.2500 ####[facility] [address] [place], [address] WBC (Bld) [#/Vol] 10.6 10*3/uL Normal 4.4-11.0 [facility] Comment on above: Performed By: #### L 100.0100, L500.2500 ####[facility] [address] [place], [address] Chest 1 View (Portable)on Chest 1 View (Portable) Normal [facility] Determination of fraction of inspired oxygenOrdered By: Lzi Alvarenga on 03-31-2024 Determination of fraction of inspired oxygen 9.0 [facility] Measurement, pHOrdered By: Alva Alvarenga on 03-31-2024 pH (Unsp spec) 7.36 [pH] 7.35-7.45 [facility] No Panel InformationOrdered By: Liz Alvarenga on 03-31-2024 ART [facility] L Radial [facility] Not entered [facility] HFNC [facility] Oxygen saturation measuremen tOrdered By: Liz Alvarenga on 03-31-2024 Oxygen saturation measurement 98 % 95-99 [facility] Partial pressure of carbon d ioxide measurementOrdered By: Liz Alvarenga on 03-31-2024 Partial pressure of carbon dioxide measurement 53.9 mmHg High 35-45 [facility] Partial pressure of oxygen m easurementOrdered By: Liz Alvarenga on 03-31-2024 Partial pressure of oxygen measurement 105 mmHG High 75-100 [facility] Quantiferon TB-Gold+on 03-31 QFT MITOGEN OLEG > 10.00 Normal . [facility] Comment on above: Performed By: #### L 3400.8000 ####[facility] [address] [place], [address] QFT NIL VALUE 0 IU/mL Normal . [facility] Comment on above: Performed By: #### L 3400.8000 ####[facility] [address] [place], [address] QFT TB GOLD+ Comment Normal . [facility] Comment on above: Result Comment: South tiFERON-TB Gold Plus is a qualitative indirect test forM tuberculosis infection (including disease) and isintended for use in conjunction with risk assessment,radiography, and other medical and diagnostic evaluations.The QuantiFERON-TB Gold Plus result is determined bysubtracting the Nil value from either TB antigen (Ag)value. The Mitogen tube serves as a control for the test. Performed By: #### L 3400.8000 ####[facility] [address] [place], [address] QFT TB POS CRIT Negative Normal Negative [facility] Comment on above: Result Comment: No r esponse to M tuberculosis antigens detected.Infection with M tuberculosis is unlikely, but high riskindividuals should be considered for additional testing(ATS/IDSA/CDC Clinical Practice Guidelines, 2017). Thereference range is an Antigen minus Nil result of <0.35IU/mL.The specimen received for QuantiFERON testing was incubatedby the ordering institution. Specific procedures outlinedin our Directory of Services and in the package insert forthe QuantiFERON Gold (In Tube) test must be followed toenable for proper stimulation of cells for the productionof interferon gamma. Chemiluminescence immunoassaymethodologyPerformed at: [facility] [id number] Director: Nilton Jacobs PhD, Phone: [phone] Performed By: #### L 3400.8000 ####[facility] [address] [place], [address] QFT TB1+ AG OLEG 0.01 IU/mL Normal . [facility] Comment on above: Performed By: #### L 3400.8000 ####[facility] [address] [place], [address] QFT TB2+ AG OLEG 0.01 IU/mL Normal . [facility] Comment on above: Performed By: #### L 3400.8000 ####[facility] [address] [place], [place], [id number] Total carbon dioxide measure mentOrdered By: Liz Alvarenga on 03-31-2024 CO2 [Moles/Vol] 32 mmol/L [facility] Total carbon dioxide measurement 32 mmol/L [facility] Vancomycin, Trough Levelon 0 03-31-2024 VANCO, TROUGH 17.2 ug/mL High 5.0-15.0 [facility] Comment on above: Order Comment: Comme nts: Trough to be drawn 30 mins prior to scheduled [id number] Result Comment: VANC OMYCIN STANDARED DRUG THERAPY TROUGH LEVEL: 5.0 - 15.0 mg/LVANCOMYCIN HIGH INTENSITY THERAPY TROUGH LEVEL: 15.0 - 20.0 mg/LHigh Intensity therapy recommended for serious lifethreatening infections include:- Kbnmrjlfko-Awsfwazuoafz-Plfyesdea (Ventilator/Healtcare Associated)-SepsisPLEASE CONTACT PHARMACY SERVICES (#7354) FOR INTERPRETATIONOF RESULTS. Performed By: #### L 501.8820 ####[facility] [address] [place], [place], [address] pH (Unsp spec)Ordered By: Jessica Alvarenga on 03-31-2024 Measurement, pH 7.36 7.35-7.45 [facility] AFB Stain AND Cytologyon ACID FAST STAIN SEE PATHOLOGY REPORT Normal [facility] Comment on above: Order Comment: Order Date: 03/28/24 Result Comment: Spec imen submitted to Anatomical Pathology Department fortesting. Performed By: #### L 349.9000 ####[facility] [address] [place], [place], [address] CYTOLOGY,BF/CSF SEE PATHOLOGY REPORT Normal [facility] Comment on above: Order Comment: Order Date: 03/28/24 Result Comment: Spec imen submitted to Anatomical Pathology Department fortesting. Performed By: #### L 349.9000 ####[facility] [address] [place], [address] ACID FAST STAIN Normal [facility] Comment on above: Order Comment: Order Date: 03/30/24OV ID: [id number] Order #: [id number] for Laboratory Test suspicion of TB Result Comment: Spec imen sent to [facility] for testing. Performed By: #### L 349.9000 ####[facility] [address] [place], [address] CYTOLOGY,BF/CSF Normal [facility] Comment on above: Order Comment: Order Date: 03/30/24OV ID: [id number] Order #: [id number] for Laboratory Test suspicion of TB Result Comment: Spec imen sent to [facility] for testing. Performed By: #### L 349.9000 ####[facility] [address] [place], [address] Basic Metabolic Profile (BMP )on 03-30-2024 BUN/CRE 16.9 RATIO Normal 10-20 [facility] Comment on above: Performed By: #### L 100.0100, L500.2500 ####[facility] [address] [place], [address] CA,Total 8.5 mg/dL Normal 8.5-10.1 [facility] Comment on above: Performed By: #### L 100.0100, L500.2500 ####[facility] [address] [place], [address] Chloride [Moles/Vol] 94 mmol/L Low 98-107 [facility] Comment on above: Performed By: #### L 100.0100, L500.2500 ####[facility] [address] [place], [address] CO2 [Moles/Vol] 27.0 mmol/L Normal 21.0-32.0 [facility] Comment on above: Performed By: #### L 100.0100, L500.2500 ####[facility] [address] [place], [address] Creatinine [Mass/Vol] 0.47 mg/dL Low 0.70-1.30 [facility] Comment on above: Result Comment: The validity of the calculated GFR GFRAA in patients over70 years has not been determined. Clinical correlation isessential. Performed By: #### L 100.0100, L500.2500 ####[facility] [address] [place], [address] ECRCL 149.59 ml/min Normal [facility] Comment on above: Performed By: #### L 100.0100, L500.2500 ####[facility] [address] [place], [address] EST GFR - AA 230 mL/min Normal >60 [facility] Comment on above: Result Comment: Afri can [place] GFR Calc Performed By: #### L 100.0100, L500.2500 ####[facility] [address] [place], [address] GAP 8 Normal 5-15 [facility] Comment on above: Performed By: #### L 100.0100, L500.2500 ####[facility] [address] [place], [address] GFR/1.73 sq M.predicted among non-blacks MDRD (S/P/Bld) [Vol rate/Area] 190 mL/min/{1.73_m2} Normal >60 [facility] Comment on above: Result Comment: Non- GFR Calc Performed By: #### L 100.0100, L500.2500 ####[facility] [address] [place], [address] Glucose [Mass/Vol] 122 mg/dL High 74-106 [facility] Comment on above: Result Comment: Fast ing Glucose result from 100 to 125 mg/dLsuggests IMPAIRED HOMEOSTASIS per A.D.A. criteria. Performed By: #### L 100.0100, L500.2500 ####[facility] [address] [place], [address] Potassium [Moles/Vol] 3.7 mmol/L Normal 3.5-5.1 [facility] Comment on above: Performed By: #### L 100.0100, L500.2500 ####[facility] [address] [place], [address] Sodium [Moles/Vol] 129 mmol/L Low 136-145 [facility] Comment on above: Performed By: #### L 100.0100, L500.2500 ####[facility] [address] [place], [address] Urea nitrogen [Mass/Vol] 8 mg/dL Normal 7-18 [facility] Comment on above: Performed By: #### L 100.0100, L500.2500 ####[facility] [address] [place], [address] CBC W/Diff, Automatedon 02-0 PATH REV Reviewed Normal [facility] Comment on above: Result Comment: LEUK OCYTOSISNEUTROPHILIASLIGHT ANEMIAClinical correlation necessary.Adela Cloud M.D. 03/30/24 AMENDED REPORT 03/30/24 1352 PATH REV previously reported as: June Performed By: #### L 500.4050, L501.2300, L100.0100, L501.5200, L501.9520 ####[facility] [address] [place], [address] Absolute Lymph 0.99 X10 3/uL Normal 0.83-4.51 [facility] Comment on above: Performed By: #### L 100.0100, L500.2500 ####[facility] [address] [place], [address] Absolute Neut 7.3 X10 3/uL Normal 2.0-7.7 [facility] Comment on above: Performed By: #### L 100.0100, L500.2500 ####[facility] [address] [place], [address] Basophils/100 WBC (Bld) 0.4 % Normal 0-1 [facility] Comment on above: Performed By: #### L 100.0100, L500.2500 ####[facility] [address] [place], [address] Eosinophils/100 WBC (Bld) 0.2 % Normal 0-5 [facility] Comment on above: Performed By: #### L 100.0100, L500.2500 ####[facility] [address] [place], [address] Erythrocyte distribution width (RBC) [Ratio] 12.2 % Normal 11.6-14.6 [facility] Comment on above: Performed By: #### L 100.0100, L500.2500 ####[facility] [address] [place], [address] Hematocrit (Bld) [Volume fraction] 30.5 % Low 40-54 [facility] Comment on above: Performed By: #### L 100.0100, L500.2500 ####[facility] [address] [place], [address] Hemoglobin (Bld) [Mass/Vol] 10.2 g/dL Low 13.0-16.5 [facility] Comment on above: Performed By: #### L 100.0100, L500.2500 ####[facility] [address] [place], [address] IG% 0.500 Normal 0.0-0.9 [facility] Comment on above: Result Comment: IG% - Immature Granulocytes (promyelocytes, myelocytes andmetamyelocytes) > 1% indicates that a LEFT SHIFT is Present. Performed By: #### L 100.0100, L500.2500 ####[facility] [address] [place], [address] Lymphocytes/100 WBC (Bld) 10.3 % Low 19-41 [facility] Comment on above: Performed By: #### L 100.0100, L500.2500 ####[facility] [address] [place], [address] MCH (RBC) [Entitic mass] 30.5 pg Normal 27.0-32.0 [facility] Comment on above: Performed By: #### L 100.0100, L500.2500 ####[facility] [address] [place], [address] MCHC (RBC) [Mass/Vol] 33.4 g/dL Normal 32-36 [facility] Comment on above: Performed By: #### L 100.0100, L500.2500 ####[facility] [address] [place], [address] MCV (RBC) [Entitic vol] 91.3 fL Normal 80-94 [facility] Comment on above: Performed By: #### L 100.0100, L500.2500 ####[facility] [address] [place], [address] Monocytes/100 WBC (Bld) 12.0 % High 0-10 [facility] Comment on above: Performed By: #### L 100.0100, L500.2500 ####[facility] [address] [place], [address] Neutrophils/100 WBC (Bld) 76.6 % High 47-70 [facility] Comment on above: Performed By: #### L 100.0100, L500.2500 ####[facility] [address] [place], [address] Nucleated RBC (Bld) [#/Vol] 0 10*3/uL Normal 0-5 [facility] Comment on above: Performed By: #### L 100.0100, L500.2500 ####[facility] [address] [place], [address] Platelet mean volume (Bld) [Entitic vol] 8.0 fL Normal 6.2-12.0 [facility] Comment on above: Performed By: #### L 100.0100, L500.2500 ####[facility] [address] [place], [address] Platelets (Bld) [#/Vol] 428 10*3/uL Normal 150-450 [facility] Comment on above: Performed By: #### L 100.0100, L500.2500 ####[facility] [address] [place], [address] RBC (Bld) [#/Vol] 3.34 10*6/uL Low 4.6-6.2 [facility] Comment on above: Performed By: #### L 100.0100, L500.2500 ####[facility] [address] [place], [address] RDW SD 41.0 fl Normal 35.1-43.9 [facility] Comment on above: Performed By: #### L 100.0100, L500.2500 ####[facility] [address] [place], [address] WBC (Bld) [#/Vol] 9.6 10*3/uL Normal 4.4-11.0 [facility] Comment on above: Performed By: #### L 100.0100, L500.2500 ####[facility] [address] [place], [address] Consultation - Intensiviston 03-30-2024 Consultation - Social Insurance Specialist Normal [facility] AFB Stain AND Cytologyon ACID FAST STAIN SEE PATHOLOGY REPORT Normal [facility] Comment on above: Order Comment: Inter face Comments:Specimen collected by respiratory therapyReason for Laboratory Test cavitary lesion noted on chest x-ray Result Comment: Spec imen submitted to Anatomical Pathology Department fortesting. Performed By: #### L 349.9000 ####[facility] [address] [place], [address] CYTOLOGY,BF/CSF SEE PATHOLOGY REPORT Normal [facility] Comment on above: Order Comment: Inter face Comments:Specimen collected by respiratory therapyReason for Laboratory Test cavitary lesion noted on chest x-ray Result Comment: Spec imen submitted to Anatomical Pathology Department fortesting. Performed By: #### L 349.9000 ####[facility] [address] [place], [address] Acid fast bacillus (AFB) sta inOrdered By: Canelo Heredia on 03-29-2024 Microscopic observation Acid fast stain Nom (Unsp spec) SEE PATHOLOGY REPORT [facility] Basic Metabolic Profile (BMP )on 03-29-2024 BUN/CRE 16.3 RATIO Normal 10-20 [facility] Comment on above: Performed By: #### L 500.2500, L100.0100 ####[facility] [address] [place], [address] CA,Total 8.5 mg/dL Normal 8.5-10.1 [facility] Comment on above: Performed By: #### L 500.2500, L100.0100 ####[facility] [address] [place], [address] Chloride [Moles/Vol] 94 mmol/L Low 98-107 [facility] Comment on above: Performed By: #### L 500.2500, L100.0100 ####[facility] [address] [place], [address] CO2 [Moles/Vol] 28.0 mmol/L Normal 21.0-32.0 [facility] Comment on above: Performed By: #### L 500.2500, L100.0100 ####[facility] [address] [place], [address] Creatinine [Mass/Vol] 0.55 mg/dL Low 0.70-1.30 [facility] Comment on above: Result Comment: The validity of the calculated GFR GFRAA in patients over70 years has not been determined. Clinical correlation isessential. Performed By: #### L 500.2500, L100.0100 ####[facility] [address] [place], [address] ECRCL 120.35 ml/min Normal [facility] Comment on above: Performed By: #### L 500.2500, L100.0100 ####[facility] [address] [place], [address] EST GFR - AA 193 mL/min Normal >60 [facility] Comment on above: Result Comment: Afri can [place] GFR Calc Performed By: #### L 500.2500, L100.0100 ####[facility] [address] [place], [address] GAP 8 Normal 5-15 [facility] Comment on above: Performed By: #### L 500.2500, L100.0100 ####[facility] [address] [place], [address] GFR/1.73 sq M.predicted among non-blacks MDRD (S/P/Bld) [Vol rate/Area] 160 mL/min/{1.73_m2} Normal >60 [facility] Comment on above: Result Comment: Non- GFR Calc Performed By: #### L 500.2500, L100.0100 ####[facility] [address] [place], [address] Glucose [Mass/Vol] 100 mg/dL Normal 74-106 [facility] Comment on above: Result Comment: Fast ing Glucose result from 100 to 125 mg/dLsuggests IMPAIRED HOMEOSTASIS per A.D.A. criteria. Performed By: #### L 500.2500, L100.0100 ####[facility] [address] [place], [address] Potassium [Moles/Vol] 3.9 mmol/L Normal 3.5-5.1 [facility] Comment on above: Performed By: #### L 500.2500, L100.0100 ####[facility] [address] [place], [address] Sodium [Moles/Vol] 130 mmol/L Low 136-145 [facility] Comment on above: Performed By: #### L 500.2500, L100.0100 ####[facility] [address] [place], [address] Urea nitrogen [Mass/Vol] 9 mg/dL Normal 7-18 [facility] Comment on above: Performed By: #### L 500.2500, L100.0100 ####[facility] [address] [place], [address] CBC W/Diff, Automatedon 02-0 3-2025 Absolute Lymph 0.77 X10 3/uL Low 0.83-4.51 [facility] Comment on above: Performed By: #### L 500.2500, L100.0100 ####[facility] [address] [place], [address] Absolute Neut 10.7 X10 3/uL High 2.0-7.7 [facility] Comment on above: Performed By: #### L 500.2500, L100.0100 ####[facility] [address] [place], [address] Basophils/100 WBC (Bld) 0.4 % Normal 0-1 [facility] Comment on above: Performed By: #### L 500.2500, L100.0100 ####[facility] [address] [place], [address] Eosinophils/100 WBC (Bld) 0.2 % Normal 0-5 [facility] Comment on above: Performed By: #### L 500.2500, L100.0100 ####[facility] [address] [place], [address] Erythrocyte distribution width (RBC) [Ratio] 12.2 % Normal 11.6-14.6 [facility] Comment on above: Performed By: #### L 500.2500, L100.0100 ####[facility] [address] [place], [address] Hematocrit (Bld) [Volume fraction] 32.8 % Low 40-54 [facility] Comment on above: Performed By: #### L 500.2500, L100.0100 ####[facility] [address] [place], [address] Hemoglobin (Bld) [Mass/Vol] 10.8 g/dL Low 13.0-16.5 [facility] Comment on above: Performed By: #### L 500.2500, L100.0100 ####[facility] [address] [place], [address] IG% 0.400 Normal 0.0-0.9 [facility] Comment on above: Result Comment: IG% - Immature Granulocytes (promyelocytes, myelocytes andmetamyelocytes) > 1% indicates that a LEFT SHIFT is Present. Performed By: #### L 500.2500, L100.0100 ####[facility] [address] [place], [address] Lymphocytes/100 WBC (Bld) 5.9 % Low 19-41 [facility] Comment on above: Performed By: #### L 500.2500, L100.0100 ####[facility] [address] [place], [address] MCH (RBC) [Entitic mass] 30.1 pg Normal 27.0-32.0 [facility] Comment on above: Performed By: #### L 500.2500, L100.0100 ####[facility] [address] [place], [address] MCHC (RBC) [Mass/Vol] 32.9 g/dL Normal 32-36 [facility] Comment on above: Performed By: #### L 500.2500, L100.0100 ####[facility] [address] [place], [address] MCV (RBC) [Entitic vol] 91.4 fL Normal 80-94 [facility] Comment on above: Performed By: #### L 500.2500, L100.0100 ####[facility] [address] [place], [address] Monocytes/100 WBC (Bld) 11.4 % High 0-10 [facility] Comment on above: Performed By: #### L 500.2500, L100.0100 ####[facility] [address] [place], [address] Neutrophils/100 WBC (Bld) 81.7 % High 47-70 [facility] Comment on above: Performed By: #### L 500.2500, L100.0100 ####[facility] [address] [place], [address] Nucleated RBC (Bld) [#/Vol] 0 10*3/uL Normal 0-5 [facility] Comment on above: Performed By: #### L 500.2500, L100.0100 ####[facility] [address] [place], [address] Platelet mean volume (Bld) [Entitic vol] 8.2 fL Normal 6.2-12.0 [facility] Comment on above: Performed By: #### L 500.2500, L100.0100 ####[facility] [address] [place], [address] Platelets (Bld) [#/Vol] 471 10*3/uL High 150-450 [facility] Comment on above: Performed By: #### L 500.2500, L100.0100 ####[facility] [address] [place], [address] RBC (Bld) [#/Vol] 3.59 10*6/uL Low 4.6-6.2 [facility] Comment on above: Performed By: #### L 500.2500, L100.0100 ####[facility] [address] [place], [address] RDW SD 41.2 fl Normal 35.1-43.9 [facility] Comment on above: Performed By: #### L 500.2500, L100.0100 ####[facility] [address] [place], [address] WBC (Bld) [#/Vol] 13.1 10*3/uL High 4.4-11.0 [facility] Comment on above: Performed By: #### L 500.2500, L100.0100 ####[facility] [address] [place], [address] PATH REV Reviewed Normal [facility] Comment on above: Result Comment: Neut rophilic leukocytosis.Thrombocytosis.Clinical correlation necessary.Laureano Lee M.D. 03/29/24 AMENDED REPORT 03/29/24 1417 PATH REV previously reported as: May pierre Performed By: #### L 100.0100, L500.4050 ####[facility] [address] [place], [address] Consultation - Infectious Dx on 03-29-2024 Consultation - Infectious Dx Normal [facility] Cytology report of Body flui d Cyto stainOrdered By: Canelo Heredia on 03-29-2024 Cytology report Cyto stain Doc (Body fld) SEE PATHOLOGY REPORT [facility] Cytology report of Body fluid Cyto stain SEE PATHOLOGY REPORT [facility] Flex Sigmoidoscopy Reporton 03-29-2024 Flex Sigmoidoscopy Report Normal [facility] MR/CON.PCM.GIon 03-29-2024 MR/CON.PCM.GI Normal [facility] MR/POSTOP.ANEon 03-29-2024 MR/POSTOP.ANE Normal [facility] MR/PIOXXEPW5gx 03-29-2024 MR/POSTOPAN2 Normal [facility] Pap Stain (control)on 2024 Pap Stain (control) Normal [facility] Comment on above: Performed By: #### P PAPS ####[facility] [address] [place], [address] Vancomycin, Random Levelon 0 03-29-2024 VANCO, RANDOM 11.4 ug/mL Normal 0.0-15.0 [facility] Comment on above: Result Comment: VANC OMYCIN STANDARD DRUG THERAPY: CRITICAL VALUE IS > 15.0 mg/LVANCOMYCIN HIGH INTENSITY THERAPY: CRITICAL VALUE IS > 20.0 mg/LPLEASE CONTACT PHARMACY SERVICES (#9013) FOR INTERPRETATIONOF RESULTS. THIS RESULT DOES NOT REPRESENT A PEAK OR TROUGHLEVEL FOR THIS DRUG. Performed By: #### L 501.8850 ####[facility] [address] [place], [place], [address] 12 Lead EKGon 03-28-2024 12 Lead EKG Normal [facility] Bilirubin Test strip Ql (U)O rdered By: Felix Roberts on 03-28-2024 Bilirubin Ql (U) 1 mg/dL High Negative [facility] Urine total bilirubin detection by test strip 1 mg/dL High Negative [facility] Blood cultureOrdered By: Werner Heredia on 03-28-2024 Bacteria identified Cx Nom (Bld) No growth in 5 days. [facility] Blood culture No growth in 5 days. [facility] CT Chest, Abd, Pel w/Contras ton 03-28-2024 CT Chest, Abd, Pel w/Contrast Normal [facility] Clarity (U)Ordered By: Felix Roberts on 03-28-2024 Urine clarity Clear Clear [facility] Color (U)Ordered By: Felix hanson on 03-28-2024 Urine color determination Melanie Yellow [facility] Comprehensive Metabolic Prof ilon 03-28-2024 Albumin [Mass/Vol] 2.3 g/dL Low 3.2-5.0 [facility] Comment on above: Performed By: #### L 500.4050, L501.2300, L100.0100, L501.5200, L501.9520 ####[facility] [address] [place], [address] Albumin/Globulin [Mass ratio] 0.6 {ratio} Low 0.9-2.4 [facility] Comment on above: Performed By: #### L 500.4050, L501.2300, L100.0100, L501.5200, L501.9520 ####[facility] [address] [place], [address] ALK P 76 U/L Normal 45-117 [facility] Comment on above: Performed By: #### L 500.4050, L501.2300, L100.0100, L501.5200, L501.9520 ####[facility] [address] [place], [address] ALT [Catalytic activity/Vol] 18 U/L Normal 16-61 [facility] Comment on above: Performed By: #### L 500.4050, L501.2300, L100.0100, L501.5200, L501.9520 ####[facility] [address] [place], [address] AST [Catalytic activity/Vol] 15 U/L Normal 15-37 [facility] Comment on above: Performed By: #### L 500.4050, L501.2300, L100.0100, L501.5200, L501.9520 ####[facility] [address] [place], [address] Bilirubin [Mass/Vol] 0.60 mg/dL Normal 0.20-1.00 [facility] Comment on above: Result Comment: For patients on eltrombopag therapy, use of Dimension [place] TBIL is not recommended. Performed By: #### L 500.4050, L501.2300, L100.0100, L501.5200, L501.9520 ####[facility] [address] [place], [address] BUN/CRE 31.8 RATIO High 10-20 [facility] Comment on above: Performed By: #### L 500.4050, L501.2300, L100.0100, L501.5200, L501.9520 ####[facility] [address] [place], [address] CA,Total 8.3 mg/dL Low 8.5-10.1 [facility] Comment on above: Performed By: #### L 500.4050, L501.2300, L100.0100, L501.5200, L501.9520 ####[facility] [address] [place], [address] Chloride [Moles/Vol] 94 mmol/L Low 98-107 [facility] Comment on above: Performed By: #### L 500.4050, L501.2300, L100.0100, L501.5200, L501.9520 ####[facility] [address] [place], [address] CO2 [Moles/Vol] 30.0 mmol/L Normal 21.0-32.0 [facility] Comment on above: Performed By: #### L 500.4050, L501.2300, L100.0100, L501.5200, L501.9520 ####[facility] [address] [place], [address] Creatinine [Mass/Vol] 0.47 mg/dL Low 0.70-1.30 [facility] Comment on above: Result Comment: The validity of the calculated GFR GFRAA in patients over70 years has not been determined. Clinical correlation isessential. Performed By: #### L 500.4050, L501.2300, L100.0100, L501.5200, L501.9520 ####[facility] [address] [place], [address] ECRCL 141.06 ml/min Normal [facility] Comment on above: Performed By: #### L 500.4050, L501.2300, L100.0100, L501.5200, L501.9520 ####[facility] [address] [place], [address] EST GFR - AA 231 mL/min Normal >60 [facility] Comment on above: Result Comment: Afri can [place] GFR Calc Performed By: #### L 500.4050, L501.2300, L100.0100, L501.5200, L501.9520 ####[facility] [address] [place], [address] GAP 6 Normal 5-15 [facility] Comment on above: Performed By: #### L 500.4050, L501.2300, L100.0100, L501.5200, L501.9520 ####[facility] [address] [place], [address] GFR/1.73 sq M.predicted among non-blacks MDRD (S/P/Bld) [Vol rate/Area] 191 mL/min/{1.73_m2} Normal >60 [facility] Comment on above: Result Comment: Non- GFR Calc Performed By: #### L 500.4050, L501.2300, L100.0100, L501.5200, L501.9520 ####[facility] [address] [place], [address] Globulin (S) [Mass/Vol] 3.9 g/dL Normal 2.2-4.2 [facility] Comment on above: Performed By: #### L 500.4050, L501.2300, L100.0100, L501.5200, L501.9520 ####[facility] [address] [place], [address] Glucose [Mass/Vol] 106 mg/dL Normal 74-106 [facility] Comment on above: Result Comment: Fast ing Glucose result from 100 to 125 mg/dLsuggests IMPAIRED HOMEOSTASIS per A.D.A. criteria. Performed By: #### L 500.4050, L501.2300, L100.0100, L501.5200, L501.9520 ####[facility] [address] [place], [address] Potassium [Moles/Vol] 4.8 mmol/L Normal 3.5-5.1 [facility] Comment on above: Performed By: #### L 500.4050, L501.2300, L100.0100, L501.5200, L501.9520 ####[facility] [address] [place], [address] Sodium [Moles/Vol] 130 mmol/L Low 136-145 [facility] Comment on above: Performed By: #### L 500.4050, L501.2300, L100.0100, L501.5200, L501.9520 ####[facility] [address] [place], [address] T PROT 6.2 g/dL Low 6.4-8.2 [facility] Comment on above: Performed By: #### L 500.4050, L501.2300, L100.0100, L501.5200, L501.9520 ####[facility] [address] [place], [address] Urea nitrogen [Mass/Vol] 15 mg/dL Normal 7-18 [facility] Comment on above: Performed By: #### L 500.4050, L501.2300, L100.0100, L501.5200, L501.9520 ####[facility] [address] [place], [address] Albumin [Mass/Vol] 2.7 g/dL Low 3.2-5.0 [facility] Comment on above: Performed By: #### L 100.0100, L500.4050 ####[facility] [address] [place], [address] Albumin/Globulin [Mass ratio] 0.6 {ratio} Low 0.9-2.4 [facility] Comment on above: Performed By: #### L 100.0100, L500.4050 ####[facility] [address] [place], [address] ALK P 83 U/L Normal 45-117 [facility] Comment on above: Performed By: #### L 100.0100, L500.4050 ####[facility] [address] [place], [address] ALT [Catalytic activity/Vol] 23 U/L Normal 16-61 [facility] Comment on above: Performed By: #### L 100.0100, L500.4050 ####[facility] [address] [place], [address] AST [Catalytic activity/Vol] 13 U/L Low 15-37 [facility] Comment on above: Performed By: #### L 100.0100, L500.4050 ####[facility] [address] [place], [address] Bilirubin [Mass/Vol] 0.70 mg/dL Normal 0.20-1.00 [facility] Comment on above: Result Comment: For patients on eltrombopag therapy, use of Dimension [place] TBIL is not recommended. Performed By: #### L 100.0100, L500.4050 ####[facility] [address] [place], [address] BUN/CRE 25.9 RATIO High 10-20 [facility] Comment on above: Performed By: #### L 100.0100, L500.4050 ####[facility] [address] [place], [address] CA,Total 9.0 mg/dL Normal 8.5-10.1 [facility] Comment on above: Performed By: #### L 100.0100, L500.4050 ####[facility] [address] [place], [address] Chloride [Moles/Vol] 89 mmol/L Low 98-107 [facility] Comment on above: Performed By: #### L 100.0100, L500.4050 ####[facility] [address] [place], [address] CO2 [Moles/Vol] 31.0 mmol/L Normal 21.0-32.0 [facility] Comment on above: Performed By: #### L 100.0100, L500.4050 ####[facility] [address] [place], [address] Creatinine [Mass/Vol] 0.74 mg/dL Normal 0.70-1.30 [facility] Comment on above: Result Comment: The validity of the calculated GFR GFRAA in patients over70 years has not been determined. Clinical correlation isessential. Performed By: #### L 100.0100, L500.4050 ####[facility] [address] [place], [address] ECRCL 92.08 ml/min Normal [facility] Comment on above: Performed By: #### L 100.0100, L500.4050 ####[facility] [address] [place], [address] EST GFR - AA 139 mL/min Normal >60 [facility] Comment on above: Result Comment: Afri can [place] GFR Calc Performed By: #### L 100.0100, L500.4050 ####[facility] [address] [place], [address] GAP 8 Normal 5-15 [facility] Comment on above: Performed By: #### L 100.0100, L500.4050 ####[facility] [address] [place], [address] GFR/1.73 sq M.predicted among non-blacks MDRD (S/P/Bld) [Vol rate/Area] 115 mL/min/{1.73_m2} Normal >60 [facility] Comment on above: Result Comment: Non- GFR Calc Performed By: #### L 100.0100, L500.4050 ####[facility] [address] [place], [address] Globulin (S) [Mass/Vol] 4.3 g/dL High 2.2-4.2 [facility] Comment on above: Performed By: #### L 100.0100, L500.4050 ####[facility] [address] [place], [address] Glucose [Mass/Vol] 144 mg/dL High 74-106 [facility] Comment on above: Result Comment: Fast ing Glucose result greater than or equal to 126 mg/dLsuggests DIABETES MELLITUS per A.D.A. criteria. Performed By: #### L 100.0100, L500.4050 ####[facility] [address] [place], [address] Potassium [Moles/Vol] 4.2 mmol/L Normal 3.5-5.1 [facility] Comment on above: Performed By: #### L 100.0100, L500.4050 ####[facility] [address] [place], [address] Sodium [Moles/Vol] 128 mmol/L Low 136-145 [facility] Comment on above: Performed By: #### L 100.0100, L500.4050 ####[facility] [address] [place], [address] T PROT 7.0 g/dL Normal 6.4-8.2 [facility] Comment on above: Performed By: #### L 100.0100, L500.4050 ####[facility] [address] [place], [address] Urea nitrogen [Mass/Vol] 19 mg/dL High 7-18 [facility] Comment on above: Performed By: #### L 100.0100, L500.4050 ####[facility] [address] [place], [address] Consultation - Surgicalon Consultation - Surgical Normal [facility] ENTERIC PATHOGEN PANEL STOOL on 03-28-2024 EP PANEL Normal [facility] Comment on above: Performed By: #### M 100.637 ####[facility] [address] [place], [address] Emergency Department Summary on 03-28-2024 Emergency Department Summary Normal [facility] Glucose Ql (U)Ordered By: Chucky Roberts on 03-28-2024 Urine glucose detection Normal mg/dl Normal [facility] H AND P Exam - Hospitaliston 03-28-2024 H&P Exam - Hospitalist Normal [facility] Influenza virus A and B and SARS-CoV-2 (COVID-19) and Respiratory syncytial virus RNAOrdered By: Canelo Heredia on 03-28-2024 SARS-CoV-2 (COVID-19) RNA ANU+probe Ql (Unsp spec) [facility] Ketones Test strip Ql (U)Ord ered By: Felix Roberts on 03-28-2024 Ketones Ql (U) 5 mg/dl High Negative [facility] Urine ketones detection by test strip 5 mg/dl High Negative [facility] Lactic Acidon 03-28-2024 Lactate [Moles/Vol] 1.8 mmol/L Normal 0.4-1.9 [facility] Comment on above: Order Comment: Y Performed By: #### L 503.6005, M200.1000 ####[facility] [address] [place], [address] Lactic acid measurementOrder ed By: Canelo Heredia on 03-28-2024 Lactic acid measurement 1.8 mmol/L 0.4-2.0 [facility] Legionella Antigen Urineon 0 03-28-2024 LEGU Normal [facility] Comment on above: Performed By: #### M 300.4500 ####[facility] [address] [place], [address] Leukocyte esterase Test stri p Ql (U)Ordered By: Felix Roberts on 03-28-2024 Urine leukocyte esterase detection by dipstick 25 /ul High Negative [facility] M100.678on 03-28-2024 M100.678 Pending SARS-CoV-2 (COVID 19) Negative INFLUENZA A Negative INFLUENZA B Negative RSV PCR Negative Normal [facility] Comment on above: Performed By: #### M 100.678, L400.0001 ####[facility] [address] [place], [address] Magnesiumon 03-28-2024 Magnesium [Mass/Vol] 2.1 mg/dL Normal 1.6-2.6 [facility] Comment on above: Performed By: #### L 500.4050, L501.2300, L100.0100, L501.5200, L501.9520 ####[facility] [address] [place], [address] Mucus LM Ql (Urine sed)Order ed By: Felix Roberts on 03-28-2024 Mucus Ql (Urine sed) 0 SEEN /hpf [facility] Nitrite Test strip Ql (U)Ord ered By: Felix Roberts on 03-28-2024 Nitrite Ql (U) Positive High Negative [facility] Urine nitrite test by dipstick Positive High Negative [facility] Pap Stain (control)on 2024 Pap Stain (control) Normal [facility] Comment on above: Performed By: #### P PAPS ####[facility] [address] [place], [place], [address] Pathologist review Gera (Unsp spec) [Interp]Ordered By: Felix Roberts on 03-28-2024 Review by pathologist Reviewed [facility] Phosphoruson 03-28-2024 Phosphate [Mass/Vol] 3.0 mg/dL Normal 2.5-4.9 [facility] Comment on above: Performed By: #### L 500.4050, L501.2300, L100.0100, L501.5200, L501.9520 ####[facility] [address] [place], [place], [address] Platelet estimateOrdered By: Felix Roberts on 03-28-2024 Platelets LM Ql (Bld) [employer] [facility]DE[facility] Platelets LM Ql (Bld)Ordered By: Felix Roberts on 03-28-2024 Platelet estimate [employer] [facility] Protein Test strip Ql (U)Ord ered By: Felix Roberts on 03-28-2024 Protein Ql (U) 30 mg/dl High Negative [facility] Urine protein assay by test strip, semi-quantitative 30 mg/dl High Negative [facility] Qualitative QuantiFERON-TB g old in tube testOrdered By: Seferino Byrd on 03-28-2024 M. tuberculosis tuberculin stim IFN-g Ql (Bld) 0.01 IU/mL . [facility] Qualitative QuantiFERON-TB gold in tube test 0.01 IU/mL . [facility] Quantiferon-TB Gold Plus mehrdad tOrdered By: Seferino Byrd on 03-28-2024 Quantiferon-TB Gold Plus test Comment . [facility] Quantiferon-TB Gold Plus test 0 IU/mL . [facility] Quantiferon-TB Gold Plus test > 10.00 IU/mL . [facility] Quantiferon-TB Gold Plus test Negative Negative [facility] Review by pathologistOrdered By: Felix Roberts on 03-28-2024 Pathologist review Gera (Unsp spec) [Interp] Reviewed [facility] Serum or plasma thyroid stim ulating hormone (TSH) measurement (units/volume)Ordered By: Felix Roberts on 03-28-2024 TSH Qn 0.848 uIU/mL 0.358-3.74 0 [facility] Specific gravity (U) [Rel de nsity]Ordered By: Felix Roberts on 03-28-2024 Urine specific gravity measurement 1.010 1.002-1.03 0 [facility] Squamous epithelial cells de tection in urine sediment by light microscopyOrdered By: Felix Roberts on 03-28-2024 Epithelial cells.squamous LM Ql (Urine sed) 0 SEEN /hpf 0-5 [facility] Strep pneumoniae Antig(UR,CS F)on 03-28-2024 STPAG Normal [facility] Comment on above: Performed By: #### M 300.4600 ####[facility] [address] [place], [place], [address] TSH QnOrdered By: Felix haas on 03-28-2024 Serum or plasma thyroid stimulating hormone (TSH) measurement (units/volume) 0.848 uIU/mL 0.358-3.74 0 [facility] Thyroid Stim Hormone (TSH)on 03-28-2024 TSH 0.848 uIU/mL Normal 0.358-3.74 0 [facility] Comment on above: Performed By: #### L 500.4050, L501.2300, L100.0100, L501.5200, L501.9520 ####[facility] [address] [place], [place], [address] Urinalysis, Completeon 03-28 BACTERIA 0 SEEN Normal None Seen [facility] Comment on above: Order Comment: COLOR OF URINE MAY AFFECT DIPSTICK RESULTS.CLEAN CATCH Performed By: #### L 400.0001 ####[facility] [address] [place], [address] EPI,SQUAMOUS 0 SEEN Normal 0-5 [facility] Comment on above: Order Comment: COLOR OF URINE MAY AFFECT DIPSTICK RESULTS.CLEAN CATCH Performed By: #### L 400.0001 ####[facility] [address] [place], [address] Mucus Ql (Urine sed) 0 SEEN Normal [facility] Comment on above: Order Comment: COLOR OF URINE MAY AFFECT DIPSTICK RESULTS.CLEAN CATCH Performed By: #### L 400.0001 ####[facility] [address] [place], [address] RBC 0 SEEN Normal 0-5 [facility] Comment on above: Order Comment: COLOR OF URINE MAY AFFECT DIPSTICK RESULTS.CLEAN CATCH Performed By: #### L 400.0001 ####[facility] [address] [place], [address] WBC 0 SEEN Normal 0-5 [facility] Comment on above: Order Comment: COLOR OF URINE MAY AFFECT DIPSTICK RESULTS.CLEAN CATCH Performed By: #### L 400.0001 ####[facility] [address] [place], [address] BACTERIA Normal None Seen [facility] Comment on above: Order Comment: COLLE CTOR TO SPECIFY Result Comment: DUPL ICATE Performed By: #### M 100.678, L400.0001 ####[facility] [address] [place], [address] BILIRUBIN URINE Normal Negative [facility] Comment on above: Order Comment: COLLE CTOR TO SPECIFY Result Comment: DUPL ICATE Performed By: #### M 100.678, L400.0001 ####[facility] [address] [place], [address] Clarity (U) Normal Clear [facility] Comment on above: Order Comment: COLLE CTOR TO SPECIFY Result Comment: DUPL ICATE Performed By: #### M 100.678, L400.0001 ####[facility] [address] [place], [address] Color (U) Normal Yellow [facility] Comment on above: Order Comment: COLLE CTOR TO SPECIFY Result Comment: DUPL ICATE Performed By: #### M 100.678, L400.0001 ####[facility] [address] [place], [address] EPI,SQUAMOUS Normal 0-5 [facility] Comment on above: Order Comment: COLLE CTOR TO SPECIFY Result Comment: DUPL ICATE Performed By: #### M 100.678, L400.0001 ####[facility] [address] [place], [address] GLUCOSE, UR Normal Normal [facility] Comment on above: Order Comment: COLLE CTOR TO SPECIFY Result Comment: DUPL ICATE Performed By: #### M 100.678, L400.0001 ####[facility] [address] [place], [address] KETONE UR Normal Negative [facility] Comment on above: Order Comment: COLLE CTOR TO SPECIFY Result Comment: DUPL ICATE Performed By: #### M 100.678, L400.0001 ####[facility] [address] [place], [address] LEUK ESTERASE Normal Negative [facility] Comment on above: Order Comment: CROW CTOR TO SPECIFY Result Comment: DUPL ICATE Performed By: #### M 100.678, L400.0001 ####[facility] [address] [place], [address] Mucus Ql (Urine sed) Normal [facility] Comment on above: Order Comment: CROW CTOR TO SPECIFY Result Comment: DUPL ICATE Performed By: #### M 100.678, L400.0001 ####[facility] [address] [place], [address] Nitrite Ql (U) Normal Negative [facility] Comment on above: Order Comment: COLLE CTOR TO SPECIFY Result Comment: DUPL ICATE Performed By: #### M 100.678, L400.0001 ####[facility] [address] [place], [address] OCCULT BLOOD-UR Normal Negative [facility] Comment on above: Order Comment: COLLE CTOR TO SPECIFY Result Comment: DUPL ICATE Performed By: #### M 100.678, L400.0001 ####[facility] [address] [place], [address] pH UR Normal 5.0 - 8.0 [facility] Comment on above: Order Comment: CROW CTOR TO SPECIFY Result Comment: DUPL ICATE Performed By: #### M 100.678, L400.0001 ####[facility] [address] [place], [address] PROT DIPSTX Normal Negative [facility] Comment on above: Order Comment: COLLE CTOR TO SPECIFY Result Comment: DUPL ICATE Performed By: #### M 100.678, L400.0001 ####[facility] [address] [place], [address] RBC Normal 0-5 [facility] Comment on above: Order Comment: CROW CTOR TO SPECIFY Result Comment: DUPL ICATE Performed By: #### M 100.678, L400.0001 ####[facility] [address] [place], [address] SP.GR. DIPSTX Normal 1.002-1.03 0 [facility] Comment on above: Order Comment: CROW CTOR TO SPECIFY Result Comment: DUPL ICATE Performed By: #### M 100.678, L400.0001 ####[facility] [address] [place], [address] UR Preservative Normal [facility] Comment on above: Order Comment: COLLE CTOR TO SPECIFY Result Comment: DUPL ICATE Performed By: #### M 100.678, L400.0001 ####[facility] [address] [place], [address] UROBILI Normal Normal [facility] Comment on above: Order Comment: CROW CTOR TO SPECIFY Result Comment: DUPL ICATE Performed By: #### M 100.678, L400.0001 ####[facility] [address] [place], [address] WBC Normal 0-5 [facility] Comment on above: Order Comment: COLLE CTOR TO SPECIFY Result Comment: DUPL ICATE Performed By: #### M 100.678, L400.0001 ####[facility] [address] [place], [address] Urine Legionella pneumophila antigen detectionOrdered By: Felix Roberts on 03-28-2024 L. pneumophila Ag Ql (U) [facility] Urine blood detectionOrdered By: Felix Roberts on 03-28-2024 Urine blood detection 10 /ul High Negative [facility] Urine clarityOrdered By: Tommy Roberts on 03-28-2024 Clarity (U) Clear Clear [facility] Urine color determinationOrd ered By: Felix Roberts on 03-28-2024 Color (U) Melanie Yellow [facility] Urine glucose detectionOrder ed By: Felix Roberts on 03-28-2024 Glucose Ql (U) Normal mg/dl Normal [facility] Urine leukocyte esterase det ection by dipstickOrdered By: Felix Roberts on 03-28-2024 Leukocyte esterase Test strip Ql (U) 25 /ul High Negative [facility] Urine pHOrdered By: Felix guerrero on 03-28-2024 pH (U) 6.5 [pH] 5.0 - 8.0 [facility] Urine sediment bacteria coun t by microscopy (number/high power field)Ordered By: Felix Roberts on 03-28-2024 Bacteria LM.HPF (Urine sed) [#/Area] 0 /[HPF] None Seen [facility] Urine specific gravity measu rementOrdered By: Felix Rboerts on 03-28-2024 Specific gravity (U) [Rel density] 1.010 1.002-1.03 0 [facility] Urine urobilinogen measureme ntOrdered By: Felix Roberts on 03-28-2024 Urobilinogen Ql (U) 4 mg/dl High Normal [facility] Urobilinogen Ql (U)Ordered B y: Felix Roberts on 03-28-2024 Urine urobilinogen measurement 4 mg/dl High Normal [facility] White blood cell countOrdere d By: Felix Roberts on 03-28-2024 White blood cell count 0 SEEN /hpf 0-5 [facility] White blood cell count 0 SEEN /hpf [facility] pH (U)Ordered By: Felix haas on 03-28-2024 Urine pH 6.5 5.0 - 8.0 [facility] Blood manual differential co mment interpretation (narrative result)Ordered By: Canelo Heredia on 03-27-2024 Manual differential comment Gera (Bld) [Interp] SCANNED [facility] Manual differential comment Gera (Bld) [Interp]Ordered By: Canelo Heredia on 03-27-2024 Blood manual differential comment interpretation (narrative result) SCANNED [facility] Culture, Blood (WB)on 2024 CUB Blood cultures x2, f rom two different sites No growth in 5 days. Normal [facility] Comment on above: Performed By: #### M 200.1000 ####[facility] [address] [place], [place], [address] Performed By: #### L 300.3900, M200.1000, L500.4050, L501.4020, L100.0100, L300.4310, L503.6005 ####[facility] [address] [place], [place], [id number] Absolute lymphocyte countOrd ered By: Neil Augustin on 03-19-2024 Lymphocytes Auto (Unsp spec) [#/Vol] 0.61 10*3/uL Low 0.83-4.51 [facility] Absolute neutrophil countOrd ered By: Neil Augustin on 03-19-2024 Absolute neutrophil count 12.8 X10^3/uL High 2.0-7.7 [facility] Automated lymphocyte count a s percentage of total leukocytesOrdered By: Neil Augustin on 03-19-2024 Lymphocytes/100 WBC Auto (Unsp spec) 4.3 % Low 19-41 [facility] Basic Metabolic Profile (BMP )on 03-19-2024 BUN/CRE 20.1 RATIO High 10-20 [facility] Comment on above: Performed By: #### L 500.2500, L100.0100 ####[facility] [address] [place], [address] CA,Total 9.0 mg/dL Normal 8.5-10.1 [facility] Comment on above: Performed By: #### L 500.2500, L100.0100 ####[facility] [address] [place], [address] Chloride [Moles/Vol] 93 mmol/L Low 98-107 [facility] Comment on above: Performed By: #### L 500.2500, L100.0100 ####[facility] [address] [place], [address] CO2 [Moles/Vol] 34.0 mmol/L High 21.0-32.0 [facility] Comment on above: Performed By: #### L 500.2500, L100.0100 ####[facility] [address] [place], [address] Creatinine [Mass/Vol] 0.55 mg/dL Low 0.70-1.30 [facility] Comment on above: Result Comment: The validity of the calculated GFR GFRAA in patients over70 years has not been determined. Clinical correlation isessential. Performed By: #### L 500.2500, L100.0100 ####[facility] [address] [place], [address] ECRCL 125.67 ml/min Normal [facility] Comment on above: Performed By: #### L 500.2500, L100.0100 ####[facility] [address] [place], [address] EST GFR - AA 195 mL/min Normal >60 [facility] Comment on above: Result Comment: Afri can [place] GFR Calc Performed By: #### L 500.2500, L100.0100 ####[facility] [address] [place], [address] GAP 5 Normal 5-15 [facility] Comment on above: Performed By: #### L 500.2500, L100.0100 ####[facility] [address] [place], [address] GFR/1.73 sq M.predicted among non-blacks MDRD (S/P/Bld) [Vol rate/Area] 161 mL/min/{1.73_m2} Normal >60 [facility] Comment on above: Result Comment: Non- GFR Calc Performed By: #### L 500.2500, L100.0100 ####[facility] [address] [place], [address] Glucose [Mass/Vol] 141 mg/dL High 74-106 [facility] Comment on above: Result Comment: Fast ing Glucose result greater than or equal to 126 mg/dLsuggests DIABETES MELLITUS per A.D.A. criteria. Performed By: #### L 500.2500, L100.0100 ####[facility] [address] [place], [address] Potassium [Moles/Vol] 4.1 mmol/L Normal 3.5-5.1 [facility] Comment on above: Result Comment: Slig ht Hemolysis, Result may be falsely increased. Performed By: #### L 500.2500, L100.0100 ####[facility] [address] [place], [address] Sodium [Moles/Vol] 131 mmol/L Low 136-145 [facility] Comment on above: Performed By: #### L 500.2500, L100.0100 ####[facility] [address] [place], [address] Urea nitrogen [Mass/Vol] 11 mg/dL Normal 7-18 [facility] Comment on above: Performed By: #### L 500.2500, L100.0100 ####[facility] [address] [place], [address] Basophil percentageOrdered B y: Neil Augustin on 03-19-2024 Basophils/100 WBC (Bld) 0.2 % 0-1 [facility] Basophil percentage 0.2 % 0-1 [facility] Blood urea nitrogen (BUN)/cr eatinine ratioOrdered By: Neil Augustin on 03-19-2024 Blood urea nitrogen (BUN)/creatinine ratio 20.1 RATIO High 10-20 [facility] CBC W/Diff, Automatedon 02-25 Absolute Lymph 0.61 X10 3/uL Low 0.83-4.51 [facility] Comment on above: Performed By: #### L 500.2500, L100.0100 ####[facility] [address] [place], [address] Absolute Neut 12.8 X10 3/uL High 2.0-7.7 [facility] Comment on above: Performed By: #### L 500.2500, L100.0100 ####[facility] [address] [place], [address] Basophils/100 WBC (Bld) 0.2 % Normal 0-1 [facility] Comment on above: Performed By: #### L 500.2500, L100.0100 ####[facility] [address] [place], [address] Eosinophils/100 WBC (Bld) 0.0 % Normal 0-5 [facility] Comment on above: Performed By: #### L 500.2500, L100.0100 ####[facility] [address] [place], [address] Erythrocyte distribution width (RBC) [Ratio] 11.9 % Normal 11.6-14.6 [facility] Comment on above: Performed By: #### L 500.2500, L100.0100 ####[facility] [address] [place], [address] Hematocrit (Bld) [Volume fraction] 33.7 % Low 40-54 [facility] Comment on above: Performed By: #### L 500.2500, L100.0100 ####[facility] [address] [place], [address] Hemoglobin (Bld) [Mass/Vol] 11.3 g/dL Low 13.0-16.5 [facility] Comment on above: Performed By: #### L 500.2500, L100.0100 ####[facility] [address] [place], [address] IG% 0.700 Normal 0.0-0.9 [facility] Comment on above: Result Comment: IG% - Immature Granulocytes (promyelocytes, myelocytes andmetamyelocytes) > 1% indicates that a LEFT SHIFT is Present. Performed By: #### L 500.2500, L100.0100 ####[facility] [address] [place], [address] Lymphocytes/100 WBC (Bld) 4.3 % Low 19-41 [facility] Comment on above: Performed By: #### L 500.2500, L100.0100 ####[facility] [address] [place], [address] MCH (RBC) [Entitic mass] 30.5 pg Normal 27.0-32.0 [facility] Comment on above: Performed By: #### L 500.2500, L100.0100 ####[facility] [address] [place], [address] MCHC (RBC) [Mass/Vol] 33.5 g/dL Normal 32-36 [facility] Comment on above: Performed By: #### L 500.2500, L100.0100 ####[facility] [address] [place], [address] MCV (RBC) [Entitic vol] 90.8 fL Normal 80-94 [facility] Comment on above: Performed By: #### L 500.2500, L100.0100 ####[facility] [address] [place], [address] Monocytes/100 WBC (Bld) 4.2 % Normal 0-10 [facility] Comment on above: Performed By: #### L 500.2500, L100.0100 ####[facility] [address] [place], [address] Neutrophils/100 WBC (Bld) 90.6 % High 47-70 [facility] Comment on above: Performed By: #### L 500.2500, L100.0100 ####[facility] [address] [place], [address] Nucleated RBC (Bld) [#/Vol] 0 10*3/uL Normal 0-5 [facility] Comment on above: Performed By: #### L 500.2500, L100.0100 ####[facility] [address] [place], [address] Platelet mean volume (Bld) [Entitic vol] 8.0 fL Normal 6.2-12.0 [facility] Comment on above: Performed By: #### L 500.2500, L100.0100 ####[facility] [address] [place], [address] Platelets (Bld) [#/Vol] 507 10*3/uL High 150-450 [facility] Comment on above: Performed By: #### L 500.2500, L100.0100 ####[facility] [address] [place], [address] RBC (Bld) [#/Vol] 3.71 10*6/uL Low 4.6-6.2 [facility] Comment on above: Performed By: #### L 500.2500, L100.0100 ####[facility] [address] [place], [address] RDW SD 39.8 fl Normal 35.1-43.9 [facility] Comment on above: Performed By: #### L 500.2500, L100.0100 ####[facility] [address] [place], [address] WBC (Bld) [#/Vol] 14.1 10*3/uL High 4.4-11.0 [facility] Comment on above: Performed By: #### L 500.2500, L100.0100 ####[facility] [address] [place], [address] Calcium [Mass/Vol]Ordered By : Neil Augustin on 03-19-2024 Serum or plasma calcium measurement (mass/volume) 9.0 mg/dL 8.5-10.1 [facility] Carbon dioxide measurementOr dered By: Neil Augustin on 03-19-2024 CO2 [Moles/Vol] 34.0 mmol/L High 21.0-32.0 [facility] Carbon dioxide measurement 34.0 mmol/L High 21.0-32.0 [facility] Chest 1 View (Portable)on Chest 1 View (Portable) Normal [facility] Chloride measurementOrdered By: Neil Augustin on 03-19-2024 Chloride [Moles/Vol] 93 mmol/L Low 98-107 [facility] Chloride measurement 93 mmol/L Low 98-107 [facility] Creatinine [Mass/Vol]Ordered By: Neil Augustin on 03-19-2024 Serum or plasma creatinine measurement (mass/volume) 0.55 mg/dL Low 0.70-1.30 [facility] Eosinophil percentageOrdered By: Neil Augustin on 03-19-2024 Eosinophils/100 WBC (Bld) 0.0 % 0-5 [facility] Eosinophil percentage 0.0 % 0-5 [facility] Erythrocyte distribution wid th (RBC) [Ratio]Ordered By: Neil Augustin on 03-19-2024 Erythrocyte distribution width ratio 11.9 % 11.6-14.6 [facility] Erythrocyte distribution width standard deviation 39.8 fl 35.1-43.9 [facility] Erythrocyte distribution wid th ratioOrdered By: Neil Augustin on 03-19-2024 Erythrocyte distribution width (RBC) [Ratio] 11.9 % 11.6-14.6 [facility] Erythrocyte distribution wid th standard deviationOrdered By: Neil Augustin on 03-19-2024 Erythrocyte distribution width (RBC) [Ratio] 39.8 fl 35.1-43.9 [facility] Estimated glomerular filtrat ion rate (GFR) AmericanOrdered By: Neil Augustin on 03-19-2024 Estimated glomerular filtration rate (GFR) 195 mL/min >60 [facility] Estimation of creatinine ana aranceOrdered By: Neil Augustin on 03-19-2024 Estimation of creatinine clearance 125.67 ml/min [facility] Glomerular filtration rate ( GFR) estimationOrdered By: Neil Augustin on 03-19-2024 GFR/1.73 sq M.predicted among non-blacks MDRD (S/P/Bld) [Vol rate/Area] 161 mL/min/{1.73_m2} >60 [facility] Glomerular filtration rate (GFR) estimation 161 mL/min >60 [facility] Glucose measurementOrdered B y: Neil Augustin on 03-19-2024 Glucose [Mass/Vol] 141 mg/dL High 74-106 [facility] Glucose measurement 141 mg/dL High 74-106 [facility] Hematocrit Auto (Bld) [Volum e fraction]Ordered By: Neil Augustin on 03-19-2024 Hematocrit (Bld) [Volume fraction] 33.7 % Low 40-54 [facility] Automated blood hematocrit (percentage) 33.7 % Low 40-54 [facility] Hemoglobin measurementOrdere d By: Neil Augustin on 03-19-2024 Hemoglobin (Bld) [Mass/Vol] 11.3 g/dL Low 13.0-16.5 [facility] Hemoglobin measurement 11.3 g/dL Low 13.0-16.5 [facility] Immature granulocytes/100 WB C Auto (Bld)Ordered By: Neil Augustin on 03-19-2024 Immature granulocytes/100 WBC (Bld) 0.700 % 0.0-0.9 [facility] Automated immature granulocyte percentage 0.700 % 0.0-0.9 [facility] Lymphocytes Auto (Unsp spec) [#/Vol]Ordered By: Neil Augustin on 03-19-2024 Absolute lymphocyte count 0.61 X10^3/uL Low 0.83-4.51 [facility] Lymphocytes/100 WBC Auto (Un sp spec)Ordered By: Neil Augustin on 03-19-2024 Automated lymphocyte count as percentage of total leukocytes 4.3 % Low 19-41 [facility] MCV (RBC) [Entitic vol]Order ed By: Neil Augustin on 03-19-2024 MCV (mean corpuscular volume) determination 90.8 fL 80-94 [facility] MCV (mean corpuscular volume ) determinationOrdered By: Neil Augustin on 03-19-2024 MCV (RBC) [Entitic vol] 90.8 fL 80-94 [facility] Mean corpuscular hemoglobin (MCH) determinationOrdered By: Neil Augustin on 03-19-2024 MCH (RBC) [Entitic mass] 30.5 pg 27.0-32.0 [facility] Mean corpuscular hemoglobin (MCH) determination 30.5 pg 27.0-32.0 [facility] Mean corpuscular hemoglobin concentration (MCHC) determinationOrdered By: Neil Augustin on 03-19-2024 Mean corpuscular hemoglobin concentration (MCHC) determination 33.5 g/dL 32-36 [facility] Mean platelet volume determi nationOrdered By: Neil Augustin on 03-19-2024 Mean platelet volume determination 8.0 fl 6.2-12.0 [facility] Monocyte percentageOrdered B y: Neil Augustin on 03-19-2024 Monocytes/100 WBC (Bld) 4.2 % 0-10 [facility] Monocyte percentage 4.2 % 0-10 [facility] Neutrophil percentageOrdered By: Neil Augustin on 03-19-2024 Neutrophils/100 WBC (Bld) 90.6 % High 47-70 [facility] Neutrophil percentage 90.6 % High 47-70 [facility] Nucleated red blood cell per centageOrdered By: Neil Augustin on 03-19-2024 Nucleated red blood cell percentage 0 % 0-5 [facility] Platelet countOrdered By: Mehul Augustin on 03-19-2024 Platelets (Bld) [#/Vol] 507 10*3/uL High 150-450 [facility] Platelet count 507 K/mm3 High 150-450 [facility] Potassium measurementOrdered By: Neil Augustin on 03-19-2024 Potassium [Moles/Vol] 4.1 mmol/L 3.5-5.1 [facility] Potassium measurement 4.1 mmol/L 3.5-5.1 [facility] RBC Auto (Bld) [#/Vol]Ordere d By: Neil Augustin on 03-19-2024 RBC (Bld) [#/Vol] 3.71 10*6/uL Low 4.6-6.2 [facility] Automated blood erythrocyte count 3.71 M/mm3 Low 4.6-6.2 [facility] Respiratory Cultureon 2024 RESPC Normal [facility] Comment on above: Performed By: #### M 100.2000, M100.2400 ####[facility] [address] [place], [address] Serum anion gap measurementO rdered By: Neil Augustin on 03-19-2024 Serum anion gap measurement 5 5-15 [facility] Serum or plasma calcium nimo urement (mass/volume)Ordered By: Neil Augustin on 03-19-2024 Calcium [Mass/Vol] 9.0 mg/dL 8.5-10.1 [facility] Serum or plasma creatinine m easurement (mass/volume)Ordered By: Neil Augustin on 03-19-2024 Creatinine [Mass/Vol] 0.55 mg/dL Low 0.70-1.30 [facility] Serum or plasma urea nitroge n measurement (mass/volume)Ordered By: Neil Augustin on 03-19-2024 Urea nitrogen [Mass/Vol] 11 mg/dL 09-10 [facility] Sodium levelOrdered By: Neil Augustin on 03-19-2024 Sodium [Moles/Vol] 131 mmol/L Low 136-145 [facility] Sodium level 131 mmol/L Low 136-145 [facility] Urea nitrogen [Mass/Vol]Orde red By: Neil Augustin on 03-19-2024 Serum or plasma urea nitrogen measurement (mass/volume) 11 mg/dL 09-10 [facility] White blood cell (WBC) count Ordered By: Neil Augustin on 03-19-2024 WBC (Bld) [#/Vol] 14.1 10*3/uL High 4.4-11.0 [facility] White blood cell (WBC) count 14.1 K/mm3 High 4.4-11.0 [facility] Carcinoembryonic Antigenon 0 03-18-2024 CEA 4.6 ng/mL Normal 0.0-4.7 [facility] Comment on above: Result Comment: Nons mokers <3.9 Smokers <5.6[employer] Electrochemiluminescence Immunoassay(ECLIA)Values obtained with different assay methods or kitscannot be used interchangeably. Results cannot beinterpreted as absolute evidence of the presence orabsence of malignant disease.Performed at: [facility] [address] [id number] Director: Nilton Jacobs PhD, Phone: [phone] Performed By: #### L 6149.1044 ####[facility] [address] [place], [place], [id number] Basic Metabolic Profile (BMP )on 03-17-2024 BUN/CRE 26.8 RATIO High 10-20 [facility] Comment on above: Performed By: #### L 100.0100, L500.2500 ####[facility] [address] [place], [address] CA,Total 8.5 mg/dL Normal 8.5-10.1 [facility] Comment on above: Performed By: #### L 100.0100, L500.2500 ####[facility] [address] [place], [address] Chloride [Moles/Vol] 95 mmol/L Low 98-107 [facility] Comment on above: Performed By: #### L 100.0100, L500.2500 ####[facility] [address] [place], [address] CO2 [Moles/Vol] 32.0 mmol/L Normal 21.0-32.0 [facility] Comment on above: Performed By: #### L 100.0100, L500.2500 ####[facility] [address] [place], [address] Creatinine [Mass/Vol] 0.37 mg/dL Low 0.70-1.30 [facility] Comment on above: Result Comment: The validity of the calculated GFR GFRAA in patients over70 years has not been determined. Clinical correlation isessential. Performed By: #### L 100.0100, L500.2500 ####[facility] [address] [place], [address] ECRCL 186.80 ml/min Normal [facility] Comment on above: Performed By: #### L 100.0100, L500.2500 ####[facility] [address] [place], [address] EST GFR - AA 303 mL/min Normal >60 [facility] Comment on above: Result Comment: Afri can [place] GFR Calc Performed By: #### L 100.0100, L500.2500 ####[facility] [address] [place], [address] GAP 4 Low 5-15 [facility] Comment on above: Performed By: #### L 100.0100, L500.2500 ####[facility] [address] [place], [address] GFR/1.73 sq M.predicted among non-blacks MDRD (S/P/Bld) [Vol rate/Area] 251 mL/min/{1.73_m2} Normal >60 [facility] Comment on above: Result Comment: Non- GFR Calc Performed By: #### L 100.0100, L500.2500 ####[facility] [address] [place], [address] Glucose [Mass/Vol] 139 mg/dL High 74-106 [facility] Comment on above: Result Comment: Fast ing Glucose result greater than or equal to 126 mg/dLsuggests DIABETES MELLITUS per A.D.A. criteria. Performed By: #### L 100.0100, L500.2500 ####[facility] [address] [place], [address] Potassium [Moles/Vol] 3.8 mmol/L Normal 3.5-5.1 [facility] Comment on above: Performed By: #### L 100.0100, L500.2500 ####[facility] [address] [place], [address] Sodium [Moles/Vol] 131 mmol/L Low 136-145 [facility] Comment on above: Performed By: #### L 100.0100, L500.2500 ####[facility] [address] [place], [address] Urea nitrogen [Mass/Vol] 10 mg/dL Normal 7-18 [facility] Comment on above: Performed By: #### L 100.0100, L500.2500 ####[facility] [address] [place], [address] CBC W/Diff, Automatedon 02-25 Absolute Lymph 0.46 X10 3/uL Low 0.83-4.51 [facility] Comment on above: Performed By: #### L 100.0100, L500.2500 ####[facility] [address] [place], [address] Absolute Neut 14.2 X10 3/uL High 2.0-7.7 [facility] Comment on above: Performed By: #### L 100.0100, L500.2500 ####[facility] [address] [place], [address] Basophils/100 WBC (Bld) 0.1 % Normal 0-1 [facility] Comment on above: Performed By: #### L 100.0100, L500.2500 ####[facility] [address] [place], [address] Eosinophils/100 WBC (Bld) 0.0 % Normal 0-5 [facility] Comment on above: Performed By: #### L 100.0100, L500.2500 ####[facility] [address] [place], [address] Erythrocyte distribution width (RBC) [Ratio] 11.7 % Normal 11.6-14.6 [facility] Comment on above: Performed By: #### L 100.0100, L500.2500 ####[facility] [address] [place], [address] Hematocrit (Bld) [Volume fraction] 30.6 % Low 40-54 [facility] Comment on above: Performed By: #### L 100.0100, L500.2500 ####[facility] [address] [place], [address] Hemoglobin (Bld) [Mass/Vol] 10.1 g/dL Low 13.0-16.5 [facility] Comment on above: Performed By: #### L 100.0100, L500.2500 ####[facility] [address] [place], [address] IG% 0.600 Normal 0.0-0.9 [facility] Comment on above: Result Comment: IG% - Immature Granulocytes (promyelocytes, myelocytes andmetamyelocytes) > 1% indicates that a LEFT SHIFT is Present. Performed By: #### L 100.0100, L500.2500 ####[facility] [address] [place], [address] Lymphocytes/100 WBC (Bld) 2.9 % Low 19-41 [facility] Comment on above: Performed By: #### L 100.0100, L500.2500 ####[facility] [address] [place], [address] MCH (RBC) [Entitic mass] 30.0 pg Normal 27.0-32.0 [facility] Comment on above: Performed By: #### L 100.0100, L500.2500 ####[facility] [address] [place], [address] MCHC (RBC) [Mass/Vol] 33.0 g/dL Normal 32-36 [facility] Comment on above: Performed By: #### L 100.0100, L500.2500 ####[facility] [address] [place], [address] MCV (RBC) [Entitic vol] 90.8 fL Normal 80-94 [facility] Comment on above: Performed By: #### L 100.0100, L500.2500 ####[facility] [address] [place], [address] Monocytes/100 WBC (Bld) 5.2 % Normal 0-10 [facility] Comment on above: Performed By: #### L 100.0100, L500.2500 ####[facility] [address] [place], [address] Neutrophils/100 WBC (Bld) 91.2 % High 47-70 [facility] Comment on above: Performed By: #### L 100.0100, L500.2500 ####[facility] [address] [place], [address] Nucleated RBC (Bld) [#/Vol] 0 10*3/uL Normal 0-5 [facility] Comment on above: Performed By: #### L 100.0100, L500.2500 ####[facility] [address] [place], [address] Platelet mean volume (Bld) [Entitic vol] 8.0 fL Normal 6.2-12.0 [facility] Comment on above: Performed By: #### L 100.0100, L500.2500 ####[facility] [address] [place], [address] Platelets (Bld) [#/Vol] 459 10*3/uL High 150-450 [facility] Comment on above: Performed By: #### L 100.0100, L500.2500 ####[facility] [address] [place], [address] RBC (Bld) [#/Vol] 3.37 10*6/uL Low 4.6-6.2 [facility] Comment on above: Performed By: #### L 100.0100, L500.2500 ####[facility] [address] [place], [address] RDW SD 38.8 fl Normal 35.1-43.9 [facility] Comment on above: Performed By: #### L 100.0100, L500.2500 ####[facility] [address] [place], [address] WBC (Bld) [#/Vol] 15.6 10*3/uL High 4.4-11.0 [facility] Comment on above: Performed By: #### L 100.0100, L500.2500 ####[facility] [address] [place], [address] Carcinoembryonic Ag [Mass/Vo l]Ordered By: Neil Augustin on 03-17-2024 Serum or plasma carcinoembryonic antigen measurement (mass/volume) 4.6 ng/mL 0.0-4.7 [facility] Gram Stainon 03-17-2024 GS List Antibiotics [place] 48 Hours? rocephin,zithromax Acceptable Specimen? Yes (<25 Epithelial cells per/lpf) Gram Stain 3+ Gram negative rods 2+ Gram positive cocci 1+ Epithelial cells 1+ White Blood Cells Normal [facility] Comment on above: Performed By: #### M 100.2000, M100.2400 ####[facility] [address] [place], [address] Serum or plasma carcinoembry onic antigen measurement (mass/volume)Ordered By: Neil Augustin on 03-17-2024 Carcinoembryonic Ag [Mass/Vol] 4.6 ng/mL 0.0-4.7 [facility] Basic Metabolic Profile (BMP )on 03-16-2024 BUN/CRE 16.4 RATIO Normal 10-20 [facility] Comment on above: Performed By: #### L 500.2500, L100.0100 ####[facility] [address] [place], [address] CA,Total 8.8 mg/dL Normal 8.5-10.1 [facility] Comment on above: Performed By: #### L 500.2500, L100.0100 ####[facility] [address] [place], [address] Chloride [Moles/Vol] 93 mmol/L Low 98-107 [facility] Comment on above: Performed By: #### L 500.2500, L100.0100 ####[facility] [address] [place], [address] CO2 [Moles/Vol] 29.0 mmol/L Normal 21.0-32.0 [facility] Comment on above: Performed By: #### L 500.2500, L100.0100 ####[facility] [address] [place], [address] Creatinine [Mass/Vol] 0.49 mg/dL Low 0.70-1.30 [facility] Comment on above: Result Comment: The validity of the calculated GFR GFRAA in patients over70 years has not been determined. Clinical correlation isessential. Performed By: #### L 500.2500, L100.0100 ####[facility] [address] [place], [address] ECRCL 141.05 ml/min Normal [facility] Comment on above: Performed By: #### L 500.2500, L100.0100 ####[facility] [address] [place], [address] EST GFR - AA 222 mL/min Normal >60 [facility] Comment on above: Result Comment: Afri can [place] GFR Calc Performed By: #### L 500.2500, L100.0100 ####[facility] [address] [place], [address] GAP 7 Normal 5-15 [facility] Comment on above: Performed By: #### L 500.2500, L100.0100 ####[facility] [address] [place], [address] GFR/1.73 sq M.predicted among non-blacks MDRD (S/P/Bld) [Vol rate/Area] 184 mL/min/{1.73_m2} Normal >60 [facility] Comment on above: Result Comment: Non- GFR Calc Performed By: #### L 500.2500, L100.0100 ####[facility] [address] [place], [address] Glucose [Mass/Vol] 150 mg/dL High 74-106 [facility] Comment on above: Result Comment: Fast ing Glucose result greater than or equal to 126 mg/dLsuggests DIABETES MELLITUS per A.D.A. criteria. Performed By: #### L 500.2500, L100.0100 ####[facility] [address] [place], [address] Potassium [Moles/Vol] 3.8 mmol/L Normal 3.5-5.1 [facility] Comment on above: Performed By: #### L 500.2500, L100.0100 ####[facility] [address] [place], [address] Sodium [Moles/Vol] 129 mmol/L Low 136-145 [facility] Comment on above: Performed By: #### L 500.2500, L100.0100 ####[facility] [address] [place], [address] Urea nitrogen [Mass/Vol] 8 mg/dL Normal 7-18 [facility] Comment on above: Performed By: #### L 500.2500, L100.0100 ####[facility] [address] [place], [address] CBC W/Diff, Automatedon 01-2 -2024 Absolute Lymph 0.51 X10 3/uL Low 0.83-4.51 [facility] Comment on above: Performed By: #### L 500.2500, L100.0100 ####[facility] [address] [place], [address] Absolute Neut 18.1 X10 3/uL High 2.0-7.7 [facility] Comment on above: Performed By: #### L 500.2500, L100.0100 ####[facility] [address] [place], [address] Basophils/100 WBC (Bld) 0.2 % Normal 0-1 [facility] Comment on above: Performed By: #### L 500.2500, L100.0100 ####[facility] [address] [place], [address] Eosinophils/100 WBC (Bld) 0.0 % Normal 0-5 [facility] Comment on above: Performed By: #### L 500.2500, L100.0100 ####[facility] [address] [place], [address] Erythrocyte distribution width (RBC) [Ratio] 11.6 % Normal 11.6-14.6 [facility] Comment on above: Performed By: #### L 500.2500, L100.0100 ####[facility] [address] [place], [address] Hematocrit (Bld) [Volume fraction] 30.3 % Low 40-54 [facility] Comment on above: Performed By: #### L 500.2500, L100.0100 ####[facility] [address] [place], [address] Hemoglobin (Bld) [Mass/Vol] 10.3 g/dL Low 13.0-16.5 [facility] Comment on above: Performed By: #### L 500.2500, L100.0100 ####[facility] [address] [place], [address] IG% 0.700 Normal 0.0-0.9 [facility] Comment on above: Result Comment: IG% - Immature Granulocytes (promyelocytes, myelocytes andmetamyelocytes) > 1% indicates that a LEFT SHIFT is Present. Performed By: #### L 500.2500, L100.0100 ####[facility] [address] [place], [address] Lymphocytes/100 WBC (Bld) 2.6 % Low 19-41 [facility] Comment on above: Performed By: #### L 500.2500, L100.0100 ####[facility] [address] [place], [address] MCH (RBC) [Entitic mass] 30.7 pg Normal 27.0-32.0 [facility] Comment on above: Performed By: #### L 500.2500, L100.0100 ####[facility] [address] [place], [address] MCHC (RBC) [Mass/Vol] 34.0 g/dL Normal 32-36 [facility] Comment on above: Performed By: #### L 500.2500, L100.0100 ####[facility] [address] [place], [address] MCV (RBC) [Entitic vol] 90.4 fL Normal 80-94 [facility] Comment on above: Performed By: #### L 500.2500, L100.0100 ####[facility] [address] [place], [address] Monocytes/100 WBC (Bld) 4.1 % Normal 0-10 [facility] Comment on above: Performed By: #### L 500.2500, L100.0100 ####[facility] [address] [place], [address] Neutrophils/100 WBC (Bld) 92.4 % High 47-70 [facility] Comment on above: Performed By: #### L 500.2500, L100.0100 ####[facility] [address] [place], [address] Nucleated RBC (Bld) [#/Vol] 0 10*3/uL Normal 0-5 [facility] Comment on above: Performed By: #### L 500.2500, L100.0100 ####[facility] [address] [place], [address] Platelet mean volume (Bld) [Entitic vol] 8.0 fL Normal 6.2-12.0 [facility] Comment on above: Performed By: #### L 500.2500, L100.0100 ####[facility] [address] [place], [address] Platelets (Bld) [#/Vol] 460 10*3/uL High 150-450 [facility] Comment on above: Performed By: #### L 500.2500, L100.0100 ####[facility] [address] [place], [address] RBC (Bld) [#/Vol] 3.35 10*6/uL Low 4.6-6.2 [facility] Comment on above: Performed By: #### L 500.2500, L100.0100 ####[facility] [address] [place], [address] RDW SD 38.4 fl Normal 35.1-43.9 [facility] Comment on above: Performed By: #### L 500.2500, L100.0100 ####[facility] [address] [place], [address] WBC (Bld) [#/Vol] 19.6 10*3/uL High 4.4-11.0 [facility] Comment on above: Performed By: #### L 500.2500, L100.0100 ####[facility] [address] [place], [address] RESPIRATORY PANEL MOLECULARo n 03-16-2024 RP PANEL Normal [facility] Comment on above: Performed By: #### M 100.638 ####[facility] [address] [place], [address] Urine Cultureon 03-16-2024 URC Culture exhibits no growth. Normal [facility] Comment on above: Performed By: #### M 100.2200, M100.678, L400.0001 ####[facility] [address] [place], [address] 12 Lead EKGon 03-15-2024 12 Lead EKG Normal [facility] ALP [Catalytic activity/Vol] Ordered By: Lowell Anna on 03-15-2024 Serum or plasma alkaline phosphatase measurement 81 U/L 45-117 [facility] ALT [Catalytic activity/Vol] Ordered By: Lowell Anna on 03-15-2024 Serum or plasma alanine aminotransferase (ALT) measurement 21 U/L 16-61 [facility] Abdomen/Pelvis W IV Cont ONL Yon 03-15-2024 Abdomen/Pelvis W IV Cont ONLY Normal [facility] Activated partial thrombopla stin time (aPTT) in platelet poor plasma by coagulation aOrdered By: Lowell Anna on 03-15-2024 aPTT Coag (PPP) [Time] 30.8 s 24.1-36.2 [facility] Albumin [Mass/Vol]Ordered By : Lowell Anna on 03-15-2024 Serum or plasma albumin measurement (mass/volume) 2.9 g/dL Low 3.2-5.0 [facility] Albumin to globulin ratioOrd ered By: Lowell Anna on 03-15-2024 Albumin to globulin ratio 0.7 RATIO Low 0.9-2.4 [facility] BNP (brain natriuretic pepti de measurement)Ordered By: Lowell Anna on 03-15-2024 Natriuretic peptide B (Bld) [Mass/Vol] 36.9 pg/mL 0-100 [facility] BNP (brain natriuretic peptide measurement) 36.9 pg/mL 0-100 [facility] BNP,B-Type NATRIURETIC PEPTI Pavel 03-15-2024 Natriuretic peptide B (Bld) [Mass/Vol] 36.9 pg/mL Normal 0-100 [facility] Comment on above: Performed By: #### L 503.6620 ####[facility] [address] [place], [address] Bilirubin Test strip Ql (U)O rdered By: Lowell Anna on 03-15-2024 Bilirubin Ql (U) Negative Negative [facility] Bilirubin, totalOrdered By: Lowell Anna on 03-15-2024 Bilirubin [Mass/Vol] 0.40 mg/dL 0.20-1.00 [facility] Bilirubin, total 0.40 mg/dL 0.20-1.00 [facility] Blood cultureOrdered By: Samson Anna on 03-15-2024 Bacteria identified Cx Nom (Bld) No growth in 5 days. [facility] Blood culture No growth in 5 days. [facility] Bacteria identified Cx Nom (Bld) No growth in 5 days. [facility] Blood culture No growth in 5 days. [facility] Blood manual differential co mment interpretation (narrative result)Ordered By: Lowell Anna on 03-15-2024 Manual differential comment Gera (Bld) [Interp] SCANNED [facility] CBC W/Diff, Automatedon 02-25 SMEAR COMMENT SCANNED Normal [facility] Comment on above: Result Comment: LYMP HOPENIA NOTED Performed By: #### L 300.3900, M200.1000, L500.4050, L501.4020, L100.0100, L300.4310, L503.6005 ####[facility] [address] [place], [place], [address] Chest PA and Lateralon 03-15 Chest PA and Lateral Normal [facility] Clarity (U)Ordered By: Lowell Anna on 03-15-2024 Urine clarity Clear Clear [facility] Color (U)Ordered By: Lowell solano on 03-15-2024 Urine color determination Yellow Yellow [facility] Comprehensive Metabolic Prof ilon 03-15-2024 Albumin [Mass/Vol] 2.9 g/dL Low 3.2-5.0 [facility] Comment on above: Order Comment: 'TROP ' Serial specimen #1, #2 or #3: 1 Performed By: #### L 300.3900, M200.1000, L500.4050, L501.4020, L100.0100, L300.4310, L503.6005 ####[facility] [address] [place], [place], [address] Albumin/Globulin [Mass ratio] 0.7 {ratio} Low 0.9-2.4 [facility] Comment on above: Order Comment: 'TROP ' Serial specimen #1, #2 or #3: 1 Performed By: #### L 300.3900, M200.1000, L500.4050, L501.4020, L100.0100, L300.4310, L503.6005 ####[facility] [address] [place], [address] ALK P 81 U/L Normal 45-117 [facility] Comment on above: Order Comment: 'TROP ' Serial specimen #1, #2 or #3: 1 Performed By: #### L 300.3900, M200.1000, L500.4050, L501.4020, L100.0100, L300.4310, L503.6005 ####[facility] [address] [place], [address] ALT [Catalytic activity/Vol] 21 U/L Normal 16-61 [facility] Comment on above: Order Comment: 'TROP ' Serial specimen #1, #2 or #3: 1 Performed By: #### L 300.3900, M200.1000, L500.4050, L501.4020, L100.0100, L300.4310, L503.6005 ####[facility] [address] [place], [address] AST [Catalytic activity/Vol] 20 U/L Normal 15-37 [facility] Comment on above: Order Comment: 'TROP ' Serial specimen #1, #2 or #3: 1 Performed By: #### L 300.3900, M200.1000, L500.4050, L501.4020, L100.0100, L300.4310, L503.6005 ####[facility] [address] [place], [address] Bilirubin [Mass/Vol] 0.40 mg/dL Normal 0.20-1.00 [facility] Comment on above: Order Comment: 'TROP ' Serial specimen #1, #2 or #3: 1 Result Comment: For patients on eltrombopag therapy, use of Dimension [place] TBIL is not recommended. Performed By: #### L 300.3900, M200.1000, L500.4050, L501.4020, L100.0100, L300.4310, L503.6005 ####[facility] [address] [place], [address] BUN/CRE 15.2 RATIO Normal 10-20 [facility] Comment on above: Order Comment: 'TROP ' Serial specimen #1, #2 or #3: 1 Performed By: #### L 300.3900, M200.1000, L500.4050, L501.4020, L100.0100, L300.4310, L503.6005 ####[facility] [address] [place], [address] CA,Total 9.1 mg/dL Normal 8.5-10.1 [facility] Comment on above: Order Comment: 'TROP ' Serial specimen #1, #2 or #3: 1 Performed By: #### L 300.3900, M200.1000, L500.4050, L501.4020, L100.0100, L300.4310, L503.6005 ####[facility] [address] [place], [address] Chloride [Moles/Vol] 90 mmol/L Low 98-107 [facility] Comment on above: Order Comment: 'TROP ' Serial specimen #1, #2 or #3: 1 Performed By: #### L 300.3900, M200.1000, L500.4050, L501.4020, L100.0100, L300.4310, L503.6005 ####[facility] [address] [place], [address] CO2 [Moles/Vol] 30.0 mmol/L Normal 21.0-32.0 [facility] Comment on above: Order Comment: 'TROP ' Serial specimen #1, #2 or #3: 1 Performed By: #### L 300.3900, M200.1000, L500.4050, L501.4020, L100.0100, L300.4310, L503.6005 ####[facility] [address] [place], [address] Creatinine [Mass/Vol] 0.59 mg/dL Low 0.70-1.30 [facility] Comment on above: Order Comment: 'TROP ' Serial specimen #1, #2 or #3: 1 Result Comment: The validity of the calculated GFR GFRAA in patients over70 years has not been determined. Clinical correlation isessential. Performed By: #### L 300.3900, M200.1000, L500.4050, L501.4020, L100.0100, L300.4310, L503.6005 ####[facility] [address] [place], [address] ECRCL 121.60 ml/min Normal [facility] Comment on above: Order Comment: 'TROP ' Serial specimen #1, #2 or #3: 1 Performed By: #### L 300.3900, M200.1000, L500.4050, L501.4020, L100.0100, L300.4310, L503.6005 ####[facility] [address] [place], [address] EST GFR - AA 178 mL/min Normal >60 [facility] Comment on above: Order Comment: 'TROP ' Serial specimen #1, #2 or #3: 1 Result Comment: Afri can [place] GFR Calc Performed By: #### L 300.3900, M200.1000, L500.4050, L501.4020, L100.0100, L300.4310, L503.6005 ####[facility] [address] [place], [address] GAP 6 Normal 5-15 [facility] Comment on above: Order Comment: 'TROP ' Serial specimen #1, #2 or #3: 1 Performed By: #### L 300.3900, M200.1000, L500.4050, L501.4020, L100.0100, L300.4310, L503.6005 ####[facility] [address] [place], [address] GFR/1.73 sq M.predicted among non-blacks MDRD (S/P/Bld) [Vol rate/Area] 147 mL/min/{1.73_m2} Normal >60 [facility] Comment on above: Order Comment: 'TROP ' Serial specimen #1, #2 or #3: 1 Result Comment: Non- GFR Calc Performed By: #### L 300.3900, M200.1000, L500.4050, L501.4020, L100.0100, L300.4310, L503.6005 ####[facility] [address] [place], [address] Globulin (S) [Mass/Vol] 4.1 g/dL Normal 2.2-4.2 [facility] Comment on above: Order Comment: 'TROP ' Serial specimen #1, #2 or #3: 1 Performed By: #### L 300.3900, M200.1000, L500.4050, L501.4020, L100.0100, L300.4310, L503.6005 ####[facility] [address] [place], [address] Glucose [Mass/Vol] 98 mg/dL Normal 74-106 [facility] Comment on above: Order Comment: 'TROP ' Serial specimen #1, #2 or #3: 1 Performed By: #### L 300.3900, M200.1000, L500.4050, L501.4020, L100.0100, L300.4310, L503.6005 ####[facility] [address] [place], [address] Potassium [Moles/Vol] 4.0 mmol/L Normal 3.5-5.1 [facility] Comment on above: Order Comment: 'TROP ' Serial specimen #1, #2 or #3: 1 Performed By: #### L 300.3900, M200.1000, L500.4050, L501.4020, L100.0100, L300.4310, L503.6005 ####[facility] [address] [place], [address] Sodium [Moles/Vol] 126 mmol/L Low 136-145 [facility] Comment on above: Order Comment: 'TROP ' Serial specimen #1, #2 or #3: 1 Performed By: #### L 300.3900, M200.1000, L500.4050, L501.4020, L100.0100, L300.4310, L503.6005 ####[facility] [address] [place], [place], [id number] T PROT 7.0 g/dL Normal 6.4-8.2 [facility] Comment on above: Order Comment: 'TROP ' Serial specimen #1, #2 or #3: 1 Performed By: #### L 300.3900, M200.1000, L500.4050, L501.4020, L100.0100, L300.4310, L503.6005 ####[facility] [address] [place], [address] Urea nitrogen [Mass/Vol] 9 mg/dL Normal 7-18 [facility] [facility] Comment on above: Order Comment: 'TROP ' Serial specimen #1, #2 or #3: 1 Performed By: #### L 300.3900, M200.1000, L500.4050, L501.4020, L100.0100, L300.4310, L503.6005 ####[facility] [address] [place], [address] Emergency Department Summary on 03-15-2024 Emergency Department Summary Normal [facility] Glucose Ql (U)Ordered By: Ty henry Anna on 03-15-2024 Urine glucose detection Normal mg/dl Normal [facility] Gram stainOrdered By: Dana Miguel on 03-15-2024 Microscopic observation Gram stain Nom (Unsp spec) [facility] H AND P Exam - Hospitaliston 03-15-2024 H&P Exam - Hospitalist Normal [facility] Influenza virus A and B and SARS-CoV-2 (COVID-19) and Respiratory syncytial virus RNAOrdered By: Lowell Anna on 03-15-2024 SARS-CoV-2 (COVID-19) RNA ANU+probe Ql (Unsp spec) [facility] International normalized rat io (INR) calculationOrdered By: Lowell Anna on 03-15-2024 International normalized ratio (INR) calculation 1.0 [facility] Ketones Test strip Ql (U)Ord ered By: Lowell Anna on 03-15-2024 Ketones Ql (U) 15 mg/dl High Negative [facility] Urine ketones detection by test strip 15 mg/dl High Negative [facility] L501.4020on 03-15-2024 TROPONIN-I HS 8 pg/mL Normal 3.0-78.0 [facility] Comment on above: Order Comment: 'TROP ' Serial specimen #1, #2 or #3: 1 Result Comment: Kayleen benjamin Note: New Test Units and Gender Specific Reference Ranges. For more information see Policy Stat Procedure [place] High Sensitivity Troponin (TNIH) and attachments. Performed By: #### L 300.3900, M200.1000, L500.4050, L501.4020, L100.0100, L300.4310, L503.6005 ####[facility] [address] [place], [place], [id number] Lactic Acidon 03-15-2024 Lactate [Moles/Vol] 1.2 mmol/L Normal 0.4-1.9 [facility] Comment on above: Order Comment: Y Performed By: #### L 300.3900, M200.1000, L500.4050, L501.4020, L100.0100, L300.4310, L503.6005 ####[facility] [address] [place], [place], [address] Lactic acid measurementOrder ed By: Lowell Anna on 03-15-2024 Lactic acid measurement 1.2 mmol/L 0.4-2.0 [facility] Legionella Antigen Urineon 0 03-15-2024 LEGU Normal [facility] Comment on above: Performed By: #### M 300.4500, M300.4600 ####[facility] [address] [place], [address] M100.678on 03-15-2024 M100.678 Pending SARS-CoV-2 (COVID 19) Negative INFLUENZA A Negative INFLUENZA B Negative RSV PCR Negative Normal [facility] Comment on above: Performed By: #### M 100.2200, M100.678, L400.0001 ####[facility] [address] [place], [place], [address] Manual differential comment Gera (Bld) [Interp]Ordered By: Lowell Anna on 03-15-2024 Blood manual differential comment interpretation (narrative result) SCANNED [facility] Microbial respiratory cultur eOrdered By: Dana Miguel on 03-15-2024 Microorganism identified Cx Nom (Unsp spec) Pseudomonas aeruginosa Abnormal [facility] Microorganism identified Cx Nom (Unsp spec)Ordered By: Dana Miguel on 03-15-2024 Microbial respiratory culture Pseudomonas aeruginosa Abnormal [facility] Mucus LM Ql (Urine sed)Order ed By: Lowell Anna on 03-15-2024 Mucus Ql (Urine sed) 0 SEEN /hpf [facility] Nitrite Test strip Ql (U)Ord ered By: Lowell Anna on 03-15-2024 Nitrite Ql (U) Negative Negative [facility] No Panel InformationOrdered By: Lowell Anna on 03-15-2024 20 U/L 15-37 [facility] Partial Thromboplast Timeon 03-15-2024 aPTT Coag (Bld) [Time] 30.8 s Normal 24.1-36.2 [facility] Comment on above: Performed By: #### L 300.3900, M200.1000, L500.4050, L501.4020, L100.0100, L300.4310, L503.6005 ####[facility] [address] [place], [place], [id number] Protein Test strip Ql (U)Ord ered By: Lowell Anna on 03-15-2024 Protein Ql (U) 30 mg/dl High Negative [facility] Urine protein assay by test strip, semi-quantitative 30 mg/dl High Negative [facility] Prothrombin Time w/INRon INR Coag (PPP) [Relative time] 1.0 {INR} Normal [facility] Comment on above: Performed By: #### L 300.3900, M200.1000, L500.4050, L501.4020, L100.0100, L300.4310, L503.6005 ####[facility] [address] [place], [place], [id number] PT Coag (PPP) [Time] 13.2 s Normal 11.7-14.9 [facility] Comment on above: Performed By: #### L 300.3900, M200.1000, L500.4050, L501.4020, L100.0100, L300.4310, L503.6005 ####[facility] [address] [place], [place], [phone] Prothrombin timeOrdered By: Lowell Anna on 03-15-2024 PT Coag (PPP) [Time] 13.2 s 11.7-14.9 [facility] Prothrombin time 13.2 SECONDS 11.7-14.9 [facility] Respiratory pathogens detect ion panel by molecular detection methodOrdered By: Dana Miguel on 03-15-2024 Respiratory pathogens DNA and RNA panel ANU+probe (Resp) [facility] Serum globulin measurementOr dered By: Lowell Anna on 03-15-2024 Globulin (S) [Mass/Vol] 4.1 g/dL 2.2-4.2 [facility] Serum globulin measurement 4.1 g/dL 2.2-4.2 [facility] Serum or plasma alanine guevara otransferase (ALT) measurementOrdered By: Lowell Anna on 03-15-2024 ALT [Catalytic activity/Vol] 21 U/L 16-61 [facility] Serum or plasma albumin nimo urement (mass/volume)Ordered By: Lowell Anna on 03-15-2024 Albumin [Mass/Vol] 2.9 g/dL Low 3.2-5.0 [facility] Serum or plasma alkaline jam sphatase measurementOrdered By: Lowell Anna on 03-15-2024 ALP [Catalytic activity/Vol] 81 U/L 45-117 [facility] Specific gravity (U) [Rel de nsity]Ordered By: Lowell Anna on 03-15-2024 Urine specific gravity measurement 1.010 1.002-1.03 0 [facility] Squamous epithelial cells de tection in urine sediment by light microscopyOrdered By: Lowell Anna on 03-15-2024 Epithelial cells.squamous LM Ql (Urine sed) 0 SEEN /hpf 0-5 [facility] Strep pneumoniae Antig(UR,CS F)on 03-15-2024 STPAG Normal [facility] Comment on above: Performed By: #### M 300.4500, M300.4600 ####[facility] [address] [place], [address] Total proteinOrdered By: Samson Anna on 03-15-2024 Protein [Mass/Vol] 7.0 g/dL 6.4-8.2 [facility] Total protein 7.0 g/dL 6.4-8.2 [facility] Troponin IOrdered By: Lowell Anna on 03-15-2024 Troponin I 8 pg/mL 3.0-78.0 [facility] Troponin I 8 pg/mL 3.0-78.0 [facility] Urinalysis, Completeon 03-15 BACTERIA 0 SEEN Normal None Seen [facility] Comment on above: Order Comment: COLLE CTOR TO SPECIFY Performed By: #### M 100.2200, M100.678, L400.0001 ####[facility] [address] [place], [address] EPI,SQUAMOUS 0 SEEN Normal 0-5 [facility] Comment on above: Order Comment: COLLE CTOR TO SPECIFY Performed By: #### M 100.2200, M100.678, L400.0001 ####[facility] [address] [place], [address] Mucus Ql (Urine sed) 0 SEEN Normal [facility] Comment on above: Order Comment: COLLE CTOR TO SPECIFY Performed By: #### M 100.2200, M100.678, L400.0001 ####[facility] [address] [place], [address] RBC 0 SEEN Normal 0-5 [facility] Comment on above: Order Comment: COLLE CTOR TO SPECIFY Performed By: #### M 100.2200, M100.678, L400.0001 ####[facility] [address] [place], [address] WBC 0 SEEN Normal 0-5 [facility] Comment on above: Order Comment: COLLE CTOR TO SPECIFY Performed By: #### M 100.2200, M100.678, L400.0001 ####[facility] [address] [place], [address] Urine Legionella pneumophila antigen detectionOrdered By: Dana Miguel on 03-15-2024 L. pneumophila Ag Ql (U) [facility] Urine clarityOrdered By: Samson Anna on 03-15-2024 Clarity (U) Clear Clear [facility] Urine color determinationOrd ered By: Lowell Anna on 03-15-2024 Color (U) Yellow Yellow [facility] Urine cultureOrdered By: Samson Anna on 03-15-2024 Bacteria identified Cx Nom (U) Culture exhibits no growth. [facility] Urine culture Culture exhibits no growth. [facility] Urine glucose detectionOrder ed By: Lowell Anna on 03-15-2024 Glucose Ql (U) Normal mg/dl Normal [facility] Urine leukocyte esterase det ection by dipstickOrdered By: Lowell Anna on 03-15-2024 Leukocyte esterase Test strip Ql (U) Negative Negative [facility] Urine pHOrdered By: Lowell perez on 03-15-2024 pH (U) 7.0 [pH] 5.0 - 8.0 [facility] Urine sediment bacteria coun t by microscopy (number/high power field)Ordered By: Lowell Anna on 03-15-2024 Bacteria LM.HPF (Urine sed) [#/Area] 0 /[HPF] None Seen [facility] Urine specific gravity measu rementOrdered By: Lowell Anna on 03-15-2024 Specific gravity (U) [Rel density] 1.010 1.002-1.03 0 [facility] Urine total bilirubin detect ion by test stripOrdered By: Lowell Anna on 03-15-2024 Urine total bilirubin detection by test strip Negative Negative [facility] Urine urobilinogen measureme ntOrdered By: Lowell Anna on 03-15-2024 Urobilinogen Ql (U) 1 mg/dl High Normal [facility] Urobilinogen Ql (U)Ordered B y: Lowell Anna on 03-15-2024 Urine urobilinogen measurement 1 mg/dl High Normal [facility] White blood cell countOrdere d By: Lowell Anna on 03-15-2024 White blood cell count 0 SEEN /hpf 0-5 [facility] White blood cell count 0 SEEN /hpf [facility] aPTT Coag (PPP) [Time]Ordere d By: Lowell Anna on 03-15-2024 Activated partial thromboplastin time (aPTT) in platelet poor plasma by coagulation a 30.8 Seconds 24.1-36.2 [facility] pH (U)Ordered By: Lowell seymour on 03-15-2024 Urine pH 7.0 5.0 - 8.0 [facility] L501.5101on 03-11-2024 GGTP 39 IU/L Normal 0-65 [facility] Comment on above: Order Comment: Speci men Comment: A duplicate report has been generateddue to demographicSpecimen Comment: updates. Result Comment: TEST RESULTS LIMITS GGT 39 IU/L 0-65 TESTING PERFORMED AT [facility]. ORIGINAL REPORT ON FILE IN LAB CONTAINS ADDITIONAL TEST SITE INFORMATION. AMENDED REPORT 03/11/24 1408 GGTP previously reported as: TEST RESULTS LIMITS GGT 39 IU/L 0-65 TESTING PERFORMED AT [facility]. ORIGINAL REPORT ON FILE IN LAB CONTAINS ADDITIONAL TEST SITE INFORMATION. Performed By: #### L 501.9520, L509.3000, L501.5101, L501.7300, L100.0100, L500.4050, L509.6000, L503.0105 ####[facility] [address] [place], [address] ALP [Catalytic activity/Vol] Ordered By: Xavi Fortune on 03-08-2024 Serum or plasma alkaline phosphatase measurement 79 U/L 45-117 [facility] ALT [Catalytic activity/Vol] Ordered By: Xavi Fortune on 03-08-2024 Serum or plasma alanine aminotransferase (ALT) measurement 25 U/L 16-61 [facility] Absolute lymphocyte countOrd ered By: Xavi Fortune on 03-08-2024 Lymphocytes Auto (Unsp spec) [#/Vol] 0.54 10*3/uL Low 0.83-4.51 [facility] Absolute neutrophil countOrd ered By: Xavi Fortune on 03-08-2024 Absolute neutrophil count 11.6 X10^3/uL High 2.0-7.7 [facility] Albumin [Mass/Vol]Ordered By : Xavi Fortune on 03-08-2024 Serum or plasma albumin measurement (mass/volume) 3.1 g/dL Low 3.2-5.0 [facility] Albumin to globulin ratioOrd ered By: Xavi Fortune on 03-08-2024 Albumin to globulin ratio 0.8 RATIO Low 0.9-2.4 [facility] Automated lymphocyte count a s percentage of total leukocytesOrdered By: [facility] Fortune on 03-08-2024 Lymphocytes/100 WBC Auto (Unsp spec) 4.3 % Low 19-41 [facility] Basophil percentageOrdered B y: Xavi Fortune on 03-08-2024 Basophils/100 WBC (Bld) 0.2 % 0-1 [facility] Basophil percentage 0.2 % 0-1 [facility] Bilirubin, totalOrdered By: [facility] Fortune on 03-08-2024 Bilirubin [Mass/Vol] 0.50 mg/dL 0.20-1.00 [facility] Bilirubin, total 0.50 mg/dL 0.20-1.00 [facility] Blood urea nitrogen (BUN)/cr eatinine ratioOrdered By: [facility]seymehul Fortune on 03-08-2024 Blood urea nitrogen (BUN)/creatinine ratio 17.4 RATIO 10-20 [facility] CBC W/Diff, Automatedon 02-24 Absolute Lymph 0.54 X10 3/uL Low 0.83-4.51 [facility] Comment on above: Order Comment: Order Date: 03/06/24Order Info: 0184-1 - CBCD Performed By: #### L 501.9520, L509.3000, L501.5101, L501.7300, L100.0100, L500.4050, L509.6000, L503.0105 ####[facility] [address] [place], [place], [phone] Absolute Neut 11.6 X10 3/uL High 2.0-7.7 [facility] Comment on above: Order Comment: Order Date: 03/06/24Order Info: 0184-1 - CBCD Performed By: #### L 501.9520, L509.3000, L501.5101, L501.7300, L100.0100, L500.4050, L509.6000, L503.0105 ####[facility] [address] [place], [address] Basophils/100 WBC (Bld) 0.2 % Normal 0-1 [facility] Comment on above: Order Comment: Order Date: 03/06/24Order Info: 0184-1 - CBCD Performed By: #### L 501.9520, L509.3000, L501.5101, L501.7300, L100.0100, L500.4050, L509.6000, L503.0105 ####[facility] [address] [place], [address] Eosinophils/100 WBC (Bld) 0.0 % Normal 0-5 [facility] Comment on above: Order Comment: Order Date: 03/06/24Order Info: 0184-1 - CBCD Performed By: #### L 501.9520, L509.3000, L501.5101, L501.7300, L100.0100, L500.4050, L509.6000, L503.0105 ####[facility] [address] [place], [address] Erythrocyte distribution width (RBC) [Ratio] 11.7 % Normal 11.6-14.6 [facility] Comment on above: Order Comment: Order Date: 03/06/24Order Info: 0184-1 - CBCD Performed By: #### L 501.9520, L509.3000, L501.5101, L501.7300, L100.0100, L500.4050, L509.6000, L503.0105 ####[facility] [address] [place], [address] Hematocrit (Bld) [Volume fraction] 39.2 % Low 40-54 [facility] Comment on above: Order Comment: Order Date: 03/06/24Order Info: 0184-1 - CBCD Performed By: #### L 501.9520, L509.3000, L501.5101, L501.7300, L100.0100, L500.4050, L509.6000, L503.0105 ####[facility] [address] [place], [address] Hemoglobin (Bld) [Mass/Vol] 12.9 g/dL Low 13.0-16.5 [facility] Comment on above: Order Comment: Order Date: 03/06/24Order Info: 0184-1 - CBCD Performed By: #### L 501.9520, L509.3000, L501.5101, L501.7300, L100.0100, L500.4050, L509.6000, L503.0105 ####[facility] [address] [place], [address] IG% 0.500 Normal 0.0-0.9 [facility] Comment on above: Order Comment: Order Date: 03/06/24Order Info: 0184-1 - CBCD Result Comment: IG% - Immature Granulocytes (promyelocytes, myelocytes andmetamyelocytes) > 1% indicates that a LEFT SHIFT is Present. Performed By: #### L 501.9520, L509.3000, L501.5101, L501.7300, L100.0100, L500.4050, L509.6000, L503.0105 ####[facility] [address] [place], [address] Lymphocytes/100 WBC (Bld) 4.3 % Low 19-41 [facility] Comment on above: Order Comment: Order Date: 03/06/24Order Info: 0184-1 - CBCD Performed By: #### L 501.9520, L509.3000, L501.5101, L501.7300, L100.0100, L500.4050, L509.6000, L503.0105 ####[facility] [address] [place], [address] MCH (RBC) [Entitic mass] 30.9 pg Normal 27.0-32.0 [facility] Comment on above: Order Comment: Order Date: 03/06/24Order Info: 0184-1 - CBCD Performed By: #### L 501.9520, L509.3000, L501.5101, L501.7300, L100.0100, L500.4050, L509.6000, L503.0105 ####[facility] [address] [place], [address] MCHC (RBC) [Mass/Vol] 32.9 g/dL Normal 32-36 [facility] Comment on above: Order Comment: Order Date: 03/06/24Order Info: 0184-1 - CBCD Performed By: #### L 501.9520, L509.3000, L501.5101, L501.7300, L100.0100, L500.4050, L509.6000, L503.0105 ####[facility] [address] [place], [address] MCV (RBC) [Entitic vol] 93.8 fL Normal 80-94 [facility] Comment on above: Order Comment: Order Date: 03/06/24Order Info: 0184-1 - CBCD Performed By: #### L 501.9520, L509.3000, L501.5101, L501.7300, L100.0100, L500.4050, L509.6000, L503.0105 ####[facility] [address] [place], [address] Monocytes/100 WBC (Bld) 3.0 % Normal 0-10 [facility] Comment on above: Order Comment: Order Date: 03/06/24Order Info: 0184- - CBCD Performed By: #### L 501.9520, L509.3000, L501.5101, L501.7300, L100.0100, L500.4050, L509.6000, L503.0105 ####[facility] [address] [place], [address] Neutrophils/100 WBC (Bld) 92.0 % High 47-70 [facility] Comment on above: Order Comment: Order Date: 03/06/24Order Info: 018- - CBCD Performed By: #### L 501.9520, L509.3000, L501.5101, L501.7300, L100.0100, L500.4050, L509.6000, L503.0105 ####[facility] [address] [place], [address] Nucleated RBC (Bld) [#/Vol] 0 10*3/uL Normal 0-5 [facility] Comment on above: Order Comment: Order Date: 03/06/24Order Info: 0184- - CBCD Performed By: #### L 501.9520, L509.3000, L501.5101, L501.7300, L100.0100, L500.4050, L509.6000, L503.0105 ####[facility] [address] [place], [address] Platelet mean volume (Bld) [Entitic vol] 8.0 fL Normal 6.2-12.0 [facility] Comment on above: Order Comment: Order Date: 03/06/24Order Info: 0184- - CBCD Performed By: #### L 501.9520, L509.3000, L501.5101, L501.7300, L100.0100, L500.4050, L509.6000, L503.0105 ####[facility] [address] [place], [address] Platelets (Bld) [#/Vol] 568 10*3/uL High 150-450 [facility] Comment on above: Order Comment: Order Date: 03/06/24Order Info: 0184-1 - CBCD Performed By: #### L 501.9520, L509.3000, L501.5101, L501.7300, L100.0100, L500.4050, L509.6000, L503.0105 ####[facility] [address] [place], [address] RBC (Bld) [#/Vol] 4.18 10*6/uL Low 4.6-6.2 [facility] Comment on above: Order Comment: Order Date: 03/06/24Order Info: 0184-1 - CBCD Performed By: #### L 501.9520, L509.3000, L501.5101, L501.7300, L100.0100, L500.4050, L509.6000, L503.0105 ####[facility] [address] [place], [address] RDW SD 40.1 fl Normal 35.1-43.9 [facility] Comment on above: Order Comment: Order Date: 03/06/24Order Info: 0184-1 - CBCD Performed By: #### L 501.9520, L509.3000, L501.5101, L501.7300, L100.0100, L500.4050, L509.6000, L503.0105 ####[facility] [address] [place], [address] WBC (Bld) [#/Vol] 12.7 10*3/uL High 4.4-11.0 [facility] Comment on above: Order Comment: Order Date: 03/06/24Order Info: 0184-1 - CBCD Performed By: #### L 501.9520, L509.3000, L501.5101, L501.7300, L100.0100, L500.4050, L509.6000, L503.0105 ####[facility] [address] [place], [address] CORTISOL SERUMon 03-08-2024 CORTISOL 19.20 ug/dL Normal 3.44-22.45 [facility] Comment on above: Order Comment: Order Date: 03/06/24Order Info: 2132-9 - M48Jxayj Info: 2986-8 - TESOrder Info: 2143-6 - KENNETH Result Comment: Adul t (AM) 5.27 - 22.45 ug/dL Adult (PM) 3.44 - 16.76 ug/dL Performed By: #### L 501.9520, L509.3000, L501.5101, L501.7300, L100.0100, L500.4050, L509.6000, L503.0105 ####[facility] [address] [place], [address] Calcium [Mass/Vol]Ordered By : Xavi Fortune on 03-08-2024 Serum or plasma calcium measurement (mass/volume) 8.9 mg/dL 8.5-10.1 [facility] Carbon dioxide measurementOr dered By: Xavi Fortune on 03-08-2024 CO2 [Moles/Vol] 27.0 mmol/L 21.0-32.0 [facility] Carbon dioxide measurement 27.0 mmol/L 21.0-32.0 [facility] Chloride measurementOrdered By: Xavi Fortune on 03-08-2024 Chloride [Moles/Vol] 94 mmol/L Low 98-107 [facility] Chloride measurement 94 mmol/L Low 98-107 [facility] Comprehensive Metabolic Prof ilon 03-08-2024 Albumin [Mass/Vol] 3.1 g/dL Low 3.2-5.0 [facility] Comment on above: Order Comment: Order Date: 03/06/24Order Info: 0786-1 - CMPOrder Info: 3016-3 - TSH Performed By: #### L 501.9520, L509.3000, L501.5101, L501.7300, L100.0100, L500.4050, L509.6000, L503.0105 ####[facility] [address] [place], [address] Albumin/Globulin [Mass ratio] 0.8 {ratio} Low 0.9-2.4 [facility] Comment on above: Order Comment: Order Date: 03/06/24Order Info: 0786-1 - CMPOrder Info: 3 - TSH Performed By: #### L 501.9520, L509.3000, L501.5101, L501.7300, L100.0100, L500.4050, L509.6000, L503.0105 ####[facility] [address] [place], [address] ALK P 79 U/L Normal 45-117 [facility] Comment on above: Order Comment: Order Date: 03/06/24Order Info: 0786- - CMPOrder Info: 3015-04 - TSH Performed By: #### L 501.9520, L509.3000, L501.5101, L501.7300, L100.0100, L500.4050, L509.6000, L503.0105 ####[facility] [address] [place], [address] ALT [Catalytic activity/Vol] 25 U/L Normal 16-61 [facility] Comment on above: Order Comment: Order Date: 03/06/24Order Info: 0786-1 - CMPOrder Info: 3 - TSH Performed By: #### L 501.9520, L509.3000, L501.5101, L501.7300, L100.0100, L500.4050, L509.6000, L503.0105 ####[facility] [address] [place], [address] AST [Catalytic activity/Vol] 22 U/L Normal 15-37 [facility] Comment on above: Order Comment: Order Date: 03/06/24Order Info: 0786-1 - CMPOrder Info: 3 - TSH Performed By: #### L 501.9520, L509.3000, L501.5101, L501.7300, L100.0100, L500.4050, L509.6000, L503.0105 ####[facility] [address] [place], [address] Bilirubin [Mass/Vol] 0.50 mg/dL Normal 0.20-1.00 [facility] Comment on above: Order Comment: Order Date: 03/06/24Order Info: 0786-1 - CMPOrder Info: 3016-3 - TSH Result Comment: For patients on eltrombopag therapy, use of Dimension [place] TBIL is not recommended. Performed By: #### L 501.9520, L509.3000, L501.5101, L501.7300, L100.0100, L500.4050, L509.6000, L503.0105 ####[facility] [address] [place], [place], [phone](421) BUN/CRE 17.4 RATIO Normal 10-20 [facility] Comment on above: Order Comment: Order Date: 03/06/24Order Info: 0786-1 - CMPOrder Info: 3016-3 - TSH Performed By: #### L 501.9520, L509.3000, L501.5101, L501.7300, L100.0100, L500.4050, L509.6000, L503.0105 ####[facility] [address] [place], [address] CA,Total 8.9 mg/dL Normal 8.5-10.1 [facility] Comment on above: Order Comment: Order Date: 03/06/24Order Info: 0786-1 - CMPOrder Info: 3016-3 - TSH Performed By: #### L 501.9520, L509.3000, L501.5101, L501.7300, L100.0100, L500.4050, L509.6000, L503.0105 ####[facility] [address] [place], [address] Chloride [Moles/Vol] 94 mmol/L Low 98-107 [facility] Comment on above: Order Comment: Order Date: 03/06/24Order Info: [id number] - CMPOrder Info: [id number] - TSH Performed By: #### L 501.9520, L509.3000, L501.5101, L501.7300, L100.0100, L500.4050, L509.6000, L503.0105 ####[facility] [address] [place], [address] CO2 [Moles/Vol] 27.0 mmol/L Normal 21.0-32.0 [facility] Comment on above: Order Comment: Order Date: 03/06/24Order Info: 07 - CMPOrder Info: [id number] - TSH Performed By: #### L 501.9520, L509.3000, L501.5101, L501.7300, L100.0100, L500.4050, L509.6000, L503.0105 ####[facility] [address] [place], [address] Creatinine [Mass/Vol] 0.57 mg/dL Low 0.70-1.30 [facility] Comment on above: Order Comment: Order Date: 03/06/24Order Info: [id number] - CMPOrder Info: [id number] - TSH Result Comment: The validity of the calculated GFR GFRAA in patients over70 years has not been determined. Clinical correlation isessential. Performed By: #### L 501.9520, L509.3000, L501.5101, L501.7300, L100.0100, L500.4050, L509.6000, L503.0105 ####[facility] [address] [place], [address] EST GFR - AA 185 mL/min Normal >60 [facility] Comment on above: Order Comment: Order Date: 03/06/24Order Info: [id number] - CMPOrder Info: 6-3 - TSH Result Comment: Afri can [place] GFR Calc Performed By: #### L 501.9520, L509.3000, L501.5101, L501.7300, L100.0100, L500.4050, L509.6000, L503.0105 ####[facility] [address] [place], [address] GAP 7 Normal 5-15 [facility] Comment on above: Order Comment: Order Date: 03/06/24Order Info: [id number] - CMPOrder Info: 3013 - TSH Performed By: #### L 501.9520, L509.3000, L501.5101, L501.7300, L100.0100, L500.4050, L509.6000, L503.0105 ####[facility] [address] [place], [place], [id number] GFR/1.73 sq M.predicted among non-blacks MDRD (S/P/Bld) [Vol rate/Area] 153 mL/min/{1.73_m2} Normal >60 [facility] Comment on above: Order Comment: Order Date: 03/06/24Order Info: [id number] - CMPOrder Info: 3013 - TSH Result Comment: Non- GFR Calc Performed By: #### L 501.9520, L509.3000, L501.5101, L501.7300, L100.0100, L500.4050, L509.6000, L503.0105 ####[facility] [address] [place], [address] Globulin (S) [Mass/Vol] 4.1 g/dL Normal 2.2-4.2 [facility] Comment on above: Order Comment: Order Date: 03/06/24Order Info: [id number] - CMPOrder Info: [id number] - TSH Performed By: #### L 501.9520, L509.3000, L501.5101, L501.7300, L100.0100, L500.4050, L509.6000, L503.0105 ####[facility] [address] [place], [address] Glucose [Mass/Vol] 92 mg/dL Normal 74-106 [facility] Comment on above: Order Comment: Order Date: 03/06/24Order Info: [id number] - CMPOrder Info: [id number] - TSH Performed By: #### L 501.9520, L509.3000, L501.5101, L501.7300, L100.0100, L500.4050, L509.6000, L503.0105 ####[facility] [address] [place], [address] Potassium [Moles/Vol] 4.6 mmol/L Normal 3.5-5.1 [facility] Comment on above: Order Comment: Order Date: 03/06/24Order Info: [id number] - CMPOrder Info: [id number] - TSH Performed By: #### L 501.9520, L509.3000, L501.5101, L501.7300, L100.0100, L500.4050, L509.6000, L503.0105 ####[facility] [address] [place], [address] Sodium [Moles/Vol] 128 mmol/L Low 136-145 [facility] Comment on above: Order Comment: Order Date: 03/06/24Order Info: [id number] - CMPOrder Info: [id number] - TSH Performed By: #### L 501.9520, L509.3000, L501.5101, L501.7300, L100.0100, L500.4050, L509.6000, L503.0105 ####[facility] [address] [place], [address] T PROT 7.2 g/dL Normal 6.4-8.2 [facility] Comment on above: Order Comment: Order Date: 03/06/24Order Info: [id number] - CMPOrder Info: 6-3 - TSH Performed By: #### L 501.9520, L509.3000, L501.5101, L501.7300, L100.0100, L500.4050, L509.6000, L503.0105 ####[facility] [address] [place], [address] Urea nitrogen [Mass/Vol] 10 mg/dL Normal 7-18 [facility] Comment on above: Order Comment: Order Date: 03/06/24Order Info: [id number] - CMPOrder Info: [id number] - TSH Performed By: #### L 501.9520, L509.3000, L501.5101, L501.7300, L100.0100, L500.4050, L509.6000, L503.0105 ####[facility] [address] [place], [address] Cortisol [Mass/Vol]Ordered B y: Xavi Fortune on 03-08-2024 Serum or plasma cortisol measurement (mass/volume) 19.20 ug/dL 3.44-22.45 [facility] Creatinine [Mass/Vol]Ordered By: Xavi Fortune on 03-08-2024 Serum or plasma creatinine measurement (mass/volume) 0.57 mg/dL Low 0.70-1.30 [facility] Eosinophil percentageOrdered By: Xavi Fortune on 03-08-2024 Eosinophils/100 WBC (Bld) 0.0 % 0-5 [facility] Eosinophil percentage 0.0 % 0-5 [facility] Erythrocyte distribution wid th (RBC) [Ratio]Ordered By: Xavi Fortune on 03-08-2024 Erythrocyte distribution width ratio 11.7 % 11.6-14.6 [facility] Erythrocyte distribution width standard deviation 40.1 fl 35.1-43.9 [facility] Erythrocyte distribution wid th ratioOrdered By: Xavi Fortune on 03-08-2024 Erythrocyte distribution width (RBC) [Ratio] 11.7 % 11.6-14.6 [facility] Erythrocyte distribution wid th standard deviationOrdered By: Xavi Fortune on 03-08-2024 Erythrocyte distribution width (RBC) [Ratio] 40.1 fl 35.1-43.9 [facility] Estimated glomerular filtrat ion rate (GFR) AmericanOrdered By: Xavi Fortune on 03-08-2024 Estimated glomerular filtration rate (GFR) 185 mL/min >60 [facility] Gamma glutamyl transferase ( GGT) measurementOrdered By: Xavi Fortune on 03-08-2024 Amylase [Catalytic activity/Vol] 39 U/L 0-65 [facility] Gamma glutamyl transferase (GGT) measurement 39 IU/L 0-65 [facility] Glomerular filtration rate ( GFR) estimationOrdered By: Xavi Fortune on 03-08-2024 GFR/1.73 sq M.predicted among non-blacks MDRD (S/P/Bld) [Vol rate/Area] 153 mL/min/{1.73_m2} >60 [facility] Glomerular filtration rate (GFR) estimation 153 mL/min >60 [facility] Glucose measurementOrdered B y: Xavi Fortune on 03-08-2024 Glucose [Mass/Vol] 92 mg/dL 74-106 [facility] Glucose measurement 92 mg/dL 74-106 [facility] Hematocrit Auto (Bld) [Volum e fraction]Ordered By: Xavi Fortune on 03-08-2024 Hematocrit (Bld) [Volume fraction] 39.2 % Low 40-54 [facility] Automated blood hematocrit (percentage) 39.2 % Low 40-54 [facility] Hemoglobin measurementOrdere d By: Xavi Fortune on 03-08-2024 Hemoglobin (Bld) [Mass/Vol] 12.9 g/dL Low 13.0-16.5 [facility] Hemoglobin measurement 12.9 g/dL Low 13.0-16.5 [facility] Immature granulocytes/100 WB C Auto (Bld)Ordered By: Xavi Fortune on 03-08-2024 Immature granulocytes/100 WBC (Bld) 0.500 % 0.0-0.9 [facility] Automated immature granulocyte percentage 0.500 % 0.0-0.9 [facility] Lymphocytes Auto (Unsp spec) [#/Vol]Ordered By: Xavi Fortune on 03-08-2024 Absolute lymphocyte count 0.54 X10^3/uL Low 0.83-4.51 [facility] Lymphocytes/100 WBC Auto (Un sp spec)Ordered By: Xavi Fortune on 03-08-2024 Automated lymphocyte count as percentage of total leukocytes 4.3 % Low 19-41 [facility] MCV (RBC) [Entitic vol]Order ed By: Xavi Fotrune on 03-08-2024 MCV (mean corpuscular volume) determination 93.8 fL 80-94 [facility] MCV (mean corpuscular volume ) determinationOrdered By: Xavi Fortune on 03-08-2024 MCV (RBC) [Entitic vol] 93.8 fL 80-94 [facility] Mean corpuscular hemoglobin (MCH) determinationOrdered By: Xavi Fortune on 03-08-2024 MCH (RBC) [Entitic mass] 30.9 pg 27.0-32.0 [facility] Mean corpuscular hemoglobin (MCH) determination 30.9 pg 27.0-32.0 [facility] Mean corpuscular hemoglobin concentration (MCHC) determinationOrdered By: Xavi Fortune on 03-08-2024 Mean corpuscular hemoglobin concentration (MCHC) determination 32.9 g/dL 32-36 [facility] Mean platelet volume determi nationOrdered By: Xavi Fortune on 03-08-2024 Mean platelet volume determination 8.0 fl 6.2-12.0 [facility] Monocyte percentageOrdered B y: Xavi Fortune on 03-08-2024 Monocytes/100 WBC (Bld) 3.0 % 0-10 [facility] Monocyte percentage 3.0 % 0-10 [facility] Neutrophil percentageOrdered By: Xavi Fortune on 03-08-2024 Neutrophils/100 WBC (Bld) 92.0 % High 47-70 [facility] Neutrophil percentage 92.0 % High 47-70 [facility] No Panel InformationOrdered By: Xavi Fortune on 03-08-2024 22 U/L 15-37 [facility] Nucleated red blood cell per centageOrdered By: Xavi Fortune on 03-08-2024 Nucleated red blood cell percentage 0 % 0-5 [facility] Osmolality, Serumon 03-08-19 OSMOLALITY,SER 269 mOsm/KG Low 280-301 [facility] Comment on above: Order Comment: Order Date: 03/06/24Order Info: [id number] - OS Performed By: #### L 501.9520, L509.3000, L501.5101, L501.7300, L100.0100, L500.4050, L509.6000, L503.0105 ####[facility] [address] [place], [address] Osmolality, serumOrdered By: Xavi Fortune on 03-08-2024 Osmolality, serum 269 mOsm/KG Low 280-301 [facility] Platelet countOrdered By: Ahsan Fortune on 03-08-2024 Platelets (Bld) [#/Vol] 568 10*3/uL High 150-450 [facility] Platelet count 568 K/mm3 High 150-450 [facility] Potassium measurementOrdered By: Xavi Fortune on 03-08-2024 Potassium [Moles/Vol] 4.6 mmol/L 3.5-5.1 [facility] Potassium measurement 4.6 mmol/L 3.5-5.1 [facility] RBC Auto (Bld) [#/Vol]Ordere d By: Xavi Fortune on 03-08-2024 RBC (Bld) [#/Vol] 4.18 10*6/uL Low 4.6-6.2 [facility] Automated blood erythrocyte count 4.18 M/mm3 Low 4.6-6.2 [facility] Serum anion gap measurementO rdered By: Xavi Fortune on 03-08-2024 Serum anion gap measurement 7 5-15 [facility] Serum globulin measurementOr dered By: Xavi Fortune on 03-08-2024 Globulin (S) [Mass/Vol] 4.1 g/dL 2.2-4.2 [facility] Serum globulin measurement 4.1 g/dL 2.2-4.2 [facility] Serum or plasma alanine guevara otransferase (ALT) measurementOrdered By: Xavi Fortune on 03-08-2024 ALT [Catalytic activity/Vol] 25 U/L 16-61 [facility] Serum or plasma albumin nimo urement (mass/volume)Ordered By: Xavi Fortune on 03-08-2024 Albumin [Mass/Vol] 3.1 g/dL Low 3.2-5.0 [facility] Serum or plasma alkaline jam sphatase measurementOrdered By: Xavi Fortune on 03-08-2024 ALP [Catalytic activity/Vol] 79 U/L 45-117 [facility] Serum or plasma calcium nimo urement (mass/volume)Ordered By: Xavi Fortune on 03-08-2024 Calcium [Mass/Vol] 8.9 mg/dL 8.5-10.1 [facility] Serum or plasma cortisol iván surement (mass/volume)Ordered By: Xavi Fortune on 03-08-2024 Cortisol [Mass/Vol] 19.20 ug/dL 3.44-22.45 [facility] Serum or plasma creatinine m easurement (mass/volume)Ordered By: Xavi Fortune on 03-08-2024 Creatinine [Mass/Vol] 0.57 mg/dL Low 0.70-1.30 [facility] Serum or plasma thyroid stim ulating hormone (TSH) measurement (units/volume)Ordered By: Xavi Fortune on 03-08-2024 TSH Qn 0.925 uIU/mL 0.358-3.74 0 [facility] Serum or plasma urea nitroge n measurement (mass/volume)Ordered By: Xavi Fortune on 03-08-2024 Urea nitrogen [Mass/Vol] 10 mg/dL 7-18 [facility] Sodium levelOrdered By: Alexus Fortune on 03-08-2024 Sodium [Moles/Vol] 128 mmol/L Low 136-145 [facility] Sodium level 128 mmol/L Low 136-145 [facility] TSH QnOrdered By: Stone Fortune on 03-08-2024 Serum or plasma thyroid stimulating hormone (TSH) measurement (units/volume) 0.925 uIU/mL 0.358-3.74 0 [facility] Testosterone, Serum Totalon 03-08-2024 Testosterone [Mass/Vol] 486.73 ng/dL Normal [facility] Comment on above: Order Comment: Order Date: 03/06/24Order Info: [id number] - [id number] Info: [id number] - TESOrder Info: [id number] - KENNETH Result Comment: CENT RAL 90% REFERENCE RANGES MALE AGE <50 197.44 - 669.58 ng/dL MALE AGE > or = 50 187.72 - 684.19 ng/dL FEMALE AGE <50 8.38 - 35.01 ng/dL FEMALE AGE > or = 50 <7.00 - 35.92 ng/dL Effective as of 09/19/20 Performed By: #### L 501.9520, L509.3000, L501.5101, L501.7300, L100.0100, L500.4050, L509.6000, L503.0105 ####[facility] [address] [place], [place], [id number] Testosterone, totalOrdered B y: Xavi Fortune on 03-08-2024 Testosterone [Mass/Vol] 486.73 ng/dL [facility] Testosterone, total 486.73 ng/dL [facility] Thyroid Stim Hormone (TSH)on 03-08-2024 TSH 0.925 uIU/mL Normal 0.358-3.74 0 [facility] Comment on above: Order Comment: Order Date: 03/06/24Order Info: [id number] - CMPOrder Info: [id number] - TSH Performed By: #### L 501.9520, L509.3000, L501.5101, L501.7300, L100.0100, L500.4050, L509.6000, L503.0105 ####[facility] [address] [place], [place], [id number] Total proteinOrdered By: Alexx Fortune on 03-08-2024 Protein [Mass/Vol] 7.2 g/dL 6.4-8.2 [facility] Total protein 7.2 g/dL 6.4-8.2 [facility] Urea nitrogen [Mass/Vol]Orde red By: Xavi Fortune on 03-08-2024 Serum or plasma urea nitrogen measurement (mass/volume) 10 mg/dL 7-18 [facility] Vitamin B12on 03-08-2024 Cobalamin (Vitamin B12) [Mass/Vol] 413 pg/mL Normal [facility] Comment on above: Order Comment: Order Date: 03/06/24Order Info: [id number] - F93Rnliz Info: [id number] - TESOrder Info: 214-6 - KENNETH Performed By: #### L 501.9520, L509.3000, L501.5101, L501.7300, L100.0100, L500.4050, L509.6000, L503.0105 ####[facility] [address] [place], [place], [id number] Vitamin B12 measurementOrder ed By: Xavi Fortune on 03-08-2024 Cobalamin (Vitamin B12) [Mass/Vol] 413 pg/mL [facility] Vitamin B12 measurement 413 pg/mL [facility] White blood cell (WBC) count Ordered By: Xavi Fortune on 03-08-2024 WBC (Bld) [#/Vol] 12.7 10*3/uL High 4.4-11.0 [facility] White blood cell (WBC) count 12.7 K/mm3 High 4.4-11.0 [facility] 6 Minute Walk Teston 025 6 Minute Walk Test Normal [facility] Absolute neutrophil countOrd ered By: Felix Garcia on 03-02-2024 Absolute neutrophil count 8.2 X10^3/uL High 2.0-7.7 [facility] Basic Metabolic Profile (BMP )on 03-02-2024 BUN/CRE 17.4 RATIO Normal 10-20 [facility] Comment on above: Performed By: #### L 500.2500, L100.0100 ####[facility] [address] [place], [place], [id number] CA,Total 8.5 mg/dL Normal 8.5-10.1 [facility] Comment on above: Performed By: #### L 500.2500, L100.0100 ####[facility] [address] [place], [address] Chloride [Moles/Vol] 92 mmol/L Low 98-107 [facility] Comment on above: Performed By: #### L 500.2500, L100.0100 ####[facility] [address] [place], [address] CO2 [Moles/Vol] 33.0 mmol/L High 21.0-32.0 [facility] Comment on above: Performed By: #### L 500.2500, L100.0100 ####[facility] [address] [place], [address] Creatinine [Mass/Vol] 0.46 mg/dL Low 0.70-1.30 [facility] Comment on above: Result Comment: The validity of the calculated GFR GFRAA in patients over70 years has not been determined. Clinical correlation isessential. Performed By: #### L 500.2500, L100.0100 ####[facility] [address] [place], [address] ECRCL 154.26 ml/min Normal [facility] Comment on above: Performed By: #### L 500.2500, L100.0100 ####[facility] [address] [place], [address] EST GFR - AA 239 mL/min Normal >60 [facility] Comment on above: Result Comment: Afri can [place] GFR Calc Performed By: #### L 500.2500, L100.0100 ####[facility] [address] [place], [address] GAP 4 Low 5-15 [facility] Comment on above: Performed By: #### L 500.2500, L100.0100 ####[facility] [address] [place], [address] GFR/1.73 sq M.predicted among non-blacks MDRD (S/P/Bld) [Vol rate/Area] 197 mL/min/{1.73_m2} Normal >60 [facility] Comment on above: Result Comment: Non- GFR Calc Performed By: #### L 500.2500, L100.0100 ####[facility] [address] [place], [address] Glucose [Mass/Vol] 100 mg/dL Normal 74-106 [facility] Comment on above: Result Comment: Fast ing Glucose result from 100 to 125 mg/dLsuggests IMPAIRED HOMEOSTASIS per A.D.A. criteria. Performed By: #### L 500.2500, L100.0100 ####[facility] [address] [place], [address] Potassium [Moles/Vol] 3.4 mmol/L Low 3.5-5.1 [facility] Comment on above: Performed By: #### L 500.2500, L100.0100 ####[facility] [address] [place], [address] Sodium [Moles/Vol] 129 mmol/L Low 136-145 [facility] Comment on above: Performed By: #### L 500.2500, L100.0100 ####[facility] [address] [place], [address] Urea nitrogen [Mass/Vol] 8 mg/dL Normal 7-18 [facility] Comment on above: Performed By: #### L 500.2500, L100.0100 ####[facility] [address] [place], [address] Basophil percentageOrdered B y: Felix Garcia on 03-02-2024 Basophil percentage 0.3 % 0-1 [facility] Blood urea nitrogen (BUN)/cr eatinine ratioOrdered By: Felix Garcia on 03-02-2024 Blood urea nitrogen (BUN)/creatinine ratio 17.4 RATIO 10-20 [facility] CBC W/Diff, Automatedon Absolute Lymph 1.59 X10 3/uL Normal 0.83-4.51 [facility] Comment on above: Performed By: #### L 500.2500, L100.0100 ####[facility] [address] [place], [address] Absolute Neut 8.2 X10 3/uL High 2.0-7.7 [facility] Comment on above: Performed By: #### L 500.2500, L100.0100 ####[facility] [address] [place], [address] Basophils/100 WBC (Bld) 0.3 % Normal 0-1 [facility] Comment on above: Performed By: #### L 500.2500, L100.0100 ####[facility] [address] [place], [address] Eosinophils/100 WBC (Bld) 0.1 % Normal 0-5 [facility] Comment on above: Performed By: #### L 500.2500, L100.0100 ####[facility] [address] [place], [address] Erythrocyte distribution width (RBC) [Ratio] 11.9 % Normal 11.6-14.6 [facility] Comment on above: Performed By: #### L 500.2500, L100.0100 ####[facility] [address] [place], [address] Hematocrit (Bld) [Volume fraction] 35.5 % Low 40-54 [facility] Comment on above: Performed By: #### L 500.2500, L100.0100 ####[facility] [address] [place], [address] Hemoglobin (Bld) [Mass/Vol] 12.0 g/dL Low 13.0-16.5 [facility] Comment on above: Performed By: #### L 500.2500, L100.0100 ####[facility] [address] [place], [address] IG% 0.400 Normal 0.0-0.9 [facility] Comment on above: Result Comment: IG% - Immature Granulocytes (promyelocytes, myelocytes andmetamyelocytes) > 1% indicates that a LEFT SHIFT is Present. Performed By: #### L 500.2500, L100.0100 ####[facility] [address] [place], [address] Lymphocytes/100 WBC (Bld) 14.4 % Low 19-41 [facility] Comment on above: Performed By: #### L 500.2500, L100.0100 ####[facility] [address] [place], [address] MCH (RBC) [Entitic mass] 31.0 pg Normal 27.0-32.0 [facility] Comment on above: Performed By: #### L 500.2500, L100.0100 ####[facility] [address] [place], [address] MCHC (RBC) [Mass/Vol] 33.8 g/dL Normal 32-36 [facility] Comment on above: Performed By: #### L 500.2500, L100.0100 ####[facility] [address] [place], [address] MCV (RBC) [Entitic vol] 91.7 fL Normal 80-94 [facility] Comment on above: Performed By: #### L 500.2500, L100.0100 ####[facility] [address] [place], [address] Monocytes/100 WBC (Bld) 10.6 % High 0-10 [facility] Comment on above: Performed By: #### L 500.2500, L100.0100 ####[facility] [address] [place], [address] Neutrophils/100 WBC (Bld) 74.2 % High 47-70 [facility] Comment on above: Performed By: #### L 500.2500, L100.0100 ####[facility] [address] [place], [address] Nucleated RBC (Bld) [#/Vol] 0 10*3/uL Normal 0-5 [facility] Comment on above: Performed By: #### L 500.2500, L100.0100 ####[facility] [address] [place], [address] Platelet mean volume (Bld) [Entitic vol] 8.1 fL Normal 6.2-12.0 [facility] Comment on above: Performed By: #### L 500.2500, L100.0100 ####[facility] [address] [place], [address] Platelets (Bld) [#/Vol] 376 10*3/uL Normal 150-450 [facility] Comment on above: Performed By: #### L 500.2500, L100.0100 ####[facility] [address] [place], [address] RBC (Bld) [#/Vol] 3.87 10*6/uL Low 4.6-6.2 [facility] Comment on above: Performed By: #### L 500.2500, L100.0100 ####[facility] [address] [place], [address] RDW SD 40.0 fl Normal 35.1-43.9 [facility] Comment on above: Performed By: #### L 500.2500, L100.0100 ####[facility] [address] [place], [address] WBC (Bld) [#/Vol] 11.1 10*3/uL High 4.4-11.0 [facility] Comment on above: Performed By: #### L 500.2500, L100.0100 ####[facility] [address] [place], [address] Calcium [Mass/Vol]Ordered By : Felix Garcia on 03-02-2024 Serum or plasma calcium measurement (mass/volume) 8.5 mg/dL 8.5-10.1 [facility] Carbon dioxide measurementOr dered By: Felix Garcia on 03-02-2024 Carbon dioxide measurement 33.0 mmol/L High 21.0-32.0 [facility] Chloride measurementOrdered By: Felix Garcia on 03-02-2024 Chloride measurement 92 mmol/L Low 98-107 [facility] Creatinine [Mass/Vol]Ordered By: Felix Garcia on 03-02-2024 Serum or plasma creatinine measurement (mass/volume) 0.46 mg/dL Low 0.70-1.30 [facility] Eosinophil percentageOrdered By: Felix Garcia on 03-02-2024 Eosinophil percentage 0.1 % 0-5 [facility] Erythrocyte distribution wid th (RBC) [Ratio]Ordered By: Felix Garcia on 03-02-2024 Erythrocyte distribution width ratio 11.9 % 11.6-14.6 [facility] Erythrocyte distribution width standard deviation 40.0 fl 35.1-43.9 [facility] Estimated glomerular filtrat ion rate (GFR) AmericanOrdered By: Felix Garcia on 03-02-2024 Estimated glomerular filtration rate (GFR) 239 mL/min >60 [facility] Estimation of creatinine ana aranceOrdered By: Felix Garcia on 03-02-2024 Estimation of creatinine clearance 154.26 ml/min [facility] Glomerular filtration rate ( GFR) estimationOrdered By: Felix Garcia on 03-02-2024 Glomerular filtration rate (GFR) estimation 197 mL/min >60 [facility] Glucose measurementOrdered B y: Felix Garcia on 03-02-2024 Glucose measurement 100 mg/dL 74-106 [facility] Hematocrit Auto (Bld) [Volum e fraction]Ordered By: Felix Garcia on 03-02-2024 Automated blood hematocrit (percentage) 35.5 % Low 40-54 [facility] Hemoglobin measurementOrdere d By: Felix Garcia on 03-02-2024 Hemoglobin measurement 12.0 g/dL Low 13.0-16.5 [facility] Immature granulocytes/100 WB C Auto (Bld)Ordered By: Felix Garcia on 03-02-2024 Automated immature granulocyte percentage 0.400 % 0.0-0.9 [facility] Lymphocytes Auto (Unsp spec) [#/Vol]Ordered By: Felix Garcia on 03-02-2024 Absolute lymphocyte count 1.59 X10^3/uL 0.83-4.51 [facility] Lymphocytes/100 WBC Auto (Un sp spec)Ordered By: Felix Garcia on 03-02-2024 Automated lymphocyte count as percentage of total leukocytes 14.4 % Low 19-41 [facility] MCV (RBC) [Entitic vol]Order ed By: Felix Garcia on 03-02-2024 MCV (mean corpuscular volume) determination 91.7 fL 80-94 [facility] Mean corpuscular hemoglobin (MCH) determinationOrdered By: Felix Garcia on 03-02-2024 Mean corpuscular hemoglobin (MCH) determination 31.0 pg 27.0-32.0 [facility] Mean corpuscular hemoglobin concentration (MCHC) determinationOrdered By: Felix Garcia on 03-02-2024 Mean corpuscular hemoglobin concentration (MCHC) determination 33.8 g/dL 32-36 [facility] Mean platelet volume determi nationOrdered By: Felix Garcia on 03-02-2024 Mean platelet volume determination 8.1 fl 6.2-12.0 [facility] Monocyte percentageOrdered B y: Felix Garcia on 03-02-2024 Monocyte percentage 10.6 % High 0-10 [facility] Neutrophil percentageOrdered By: Felix Garcia on 03-02-2024 Neutrophil percentage 74.2 % High 47-70 [facility] Nucleated red blood cell per centageOrdered By: Felix Garcia on 03-02-2024 Nucleated red blood cell percentage 0 % 0-5 [facility] Platelet countOrdered By: Chucky Garcia on 03-02-2024 Platelet count 376 K/mm3 150-450 [facility] Potassium measurementOrdered By: Felix Garcia on 03-02-2024 Potassium measurement 3.4 mmol/L Low 3.5-5.1 [facility] RBC Auto (Bld) [#/Vol]Ordere d By: Felix Garcia on 03-02-2024 Automated blood erythrocyte count 3.87 M/mm3 Low 4.6-6.2 [facility] Serum anion gap measurementO rdered By: Felix Garcia on 03-02-2024 Serum anion gap measurement 4 Low 5-15 [facility] Sodium levelOrdered By: aJir Garcia on 03-02-2024 Sodium level 129 mmol/L Low 136-145 [facility] Urea nitrogen [Mass/Vol]Orde red By: Felix Garcia on 03-02-2024 Serum or plasma urea nitrogen measurement (mass/volume) 8 mg/dL 7-18 [facility] White blood cell (WBC) count Ordered By: Felix Garcia on 03-02-2024 White blood cell (WBC) count 11.1 K/mm3 High 4.4-11.0 [facility] Basic Metabolic Profile (BMP )on 03-01-2024 BUN/CRE 13.4 RATIO Normal 10-20 [facility] Comment on above: Performed By: #### L 500.2500, L100.0100 ####[facility] [address] [place], [address] CA,Total 8.5 mg/dL Normal 8.5-10.1 [facility] Comment on above: Performed By: #### L 500.2500, L100.0100 ####[facility] [address] [place], [address] Chloride [Moles/Vol] 94 mmol/L Low 98-107 [facility] Comment on above: Performed By: #### L 500.2500, L100.0100 ####[facility] [address] [place], [address] CO2 [Moles/Vol] 28.0 mmol/L Normal 21.0-32.0 [facility] Comment on above: Performed By: #### L 500.2500, L100.0100 ####[facility] [address] [place], [address] Creatinine [Mass/Vol] 0.52 mg/dL Low 0.70-1.30 [facility] Comment on above: Result Comment: The validity of the calculated GFR GFRAA in patients over70 years has not been determined. Clinical correlation isessential. Performed By: #### L 500.2500, L100.0100 ####[facility] [address] [place], [address] ECRCL 136.46 ml/min Normal [facility] Comment on above: Performed By: #### L 500.2500, L100.0100 ####[facility] [address] [place], [address] EST GFR - AA 206 mL/min Normal >60 [facility] Comment on above: Result Comment: Afri can [place] GFR Calc Performed By: #### L 500.2500, L100.0100 ####[facility] [address] [place], [address] GAP 7 Normal 5-15 [facility] Comment on above: Performed By: #### L 500.2500, L100.0100 ####[facility] [address] [place], [address] GFR/1.73 sq M.predicted among non-blacks MDRD (S/P/Bld) [Vol rate/Area] 170 mL/min/{1.73_m2} Normal >60 [facility] Comment on above: Result Comment: Non- GFR Calc Performed By: #### L 500.2500, L100.0100 ####[facility] [address] [place], [address] Glucose [Mass/Vol] 145 mg/dL High 74-106 [facility] Comment on above: Result Comment: Fast ing Glucose result greater than or equal to 126 mg/dLsuggests DIABETES MELLITUS per A.D.A. criteria. Performed By: #### L 500.2500, L100.0100 ####[facility] [address] [place], [address] Potassium [Moles/Vol] 4.0 mmol/L Normal 3.5-5.1 [facility] Comment on above: Performed By: #### L 500.2500, L100.0100 ####[facility] [address] [place], [address] Sodium [Moles/Vol] 129 mmol/L Low 136-145 [facility] Comment on above: Performed By: #### L 500.2500, L100.0100 ####[facility] [address] [place], [address] Urea nitrogen [Mass/Vol] 7 mg/dL Normal 7-18 [facility] Comment on above: Performed By: #### L 500.2500, L100.0100 ####[facility] [address] [place], [address] CBC W/Diff, Automatedon 01-0 6-2025 Absolute Lymph 0.64 X10 3/uL Low 0.83-4.51 [facility] Comment on above: Performed By: #### L 500.2500, L100.0100 ####[facility] [address] [place], [address] Absolute Neut 9.8 X10 3/uL High 2.0-7.7 [facility] Comment on above: Performed By: #### L 500.2500, L100.0100 ####[facility] [address] [place], [address] Basophils/100 WBC (Bld) 0.2 % Normal 0-1 [facility] Comment on above: Performed By: #### L 500.2500, L100.0100 ####[facility] [address] [place], [address] Eosinophils/100 WBC (Bld) 0.0 % Normal 0-5 [facility] Comment on above: Performed By: #### L 500.2500, L100.0100 ####[facility] [address] [place], [address] Erythrocyte distribution width (RBC) [Ratio] 11.9 % Normal 11.6-14.6 [facility] Comment on above: Performed By: #### L 500.2500, L100.0100 ####[facility] [address] [place], [address] Hematocrit (Bld) [Volume fraction] 34.2 % Low 40-54 [facility] Comment on above: Performed By: #### L 500.2500, L100.0100 ####[facility] [address] [place], [address] Hemoglobin (Bld) [Mass/Vol] 11.6 g/dL Low 13.0-16.5 [facility] Comment on above: Performed By: #### L 500.2500, L100.0100 ####[facility] [address] [place], [address] IG% 0.500 Normal 0.0-0.9 [facility] Comment on above: Result Comment: IG% - Immature Granulocytes (promyelocytes, myelocytes andmetamyelocytes) > 1% indicates that a LEFT SHIFT is Present. Performed By: #### L 500.2500, L100.0100 ####[facility] [address] [place], [address] Lymphocytes/100 WBC (Bld) 5.6 % Low 19-41 [facility] Comment on above: Performed By: #### L 500.2500, L100.0100 ####[facility] [address] [place], [address] MCH (RBC) [Entitic mass] 31.0 pg Normal 27.0-32.0 [facility] Comment on above: Performed By: #### L 500.2500, L100.0100 ####[facility] [address] [place], [address] MCHC (RBC) [Mass/Vol] 33.9 g/dL Normal 32-36 [facility] Comment on above: Performed By: #### L 500.2500, L100.0100 ####[facility] [address] [place], [address] MCV (RBC) [Entitic vol] 91.4 fL Normal 80-94 [facility] Comment on above: Performed By: #### L 500.2500, L100.0100 ####[facility] [address] [place], [address] Monocytes/100 WBC (Bld) 7.7 % Normal 0-10 [facility] Comment on above: Performed By: #### L 500.2500, L100.0100 ####[facility] [address] [place], [address] Neutrophils/100 WBC (Bld) 86.0 % High 47-70 [facility] Comment on above: Performed By: #### L 500.2500, L100.0100 ####[facility] [address] [place], [address] Nucleated RBC (Bld) [#/Vol] 0 10*3/uL Normal 0-5 [facility] Comment on above: Performed By: #### L 500.2500, L100.0100 ####[facility] [address] [place], [address] Platelet mean volume (Bld) [Entitic vol] 8.2 fL Normal 6.2-12.0 [facility] Comment on above: Performed By: #### L 500.2500, L100.0100 ####[facility] [address] [place], [address] Platelets (Bld) [#/Vol] 388 10*3/uL Normal 150-450 [facility] Comment on above: Performed By: #### L 500.2500, L100.0100 ####[facility] [address] [place], [address] RBC (Bld) [#/Vol] 3.74 10*6/uL Low 4.6-6.2 [facility] Comment on above: Performed By: #### L 500.2500, L100.0100 ####[facility] [address] [place], [address] RDW SD 39.8 fl Normal 35.1-43.9 [facility] Comment on above: Performed By: #### L 500.2500, L100.0100 ####[facility] [address] [place], [address] WBC (Bld) [#/Vol] 11.4 10*3/uL High 4.4-11.0 [facility] Comment on above: Performed By: #### L 500.2500, L100.0100 ####[facility] [address] [place], [address] Chest PA and Lateralon 03-01 Chest PA and Lateral Normal [facility] Urine Cultureon 03-01-2024 URC Culture exhibits no growth. Normal [facility] Comment on above: Performed By: #### M 100.2200, L400.2010 ####[facility] [address] [place], [address] Basic Metabolic Profile (BMP )on 02-29-2024 BUN/CRE 14.9 RATIO Normal 10-20 [facility] Comment on above: Performed By: #### L 501.5200, L100.0100, L501.2300, L500.2500 ####[facility] [address] [place], [address] CA,Total 8.5 mg/dL Normal 8.5-10.1 [facility] Comment on above: Performed By: #### L 501.5200, L100.0100, L501.2300, L500.2500 ####[facility] [address] [place], [address] Chloride [Moles/Vol] 89 mmol/L Low 98-107 [facility] Comment on above: Performed By: #### L 501.5200, L100.0100, L501.2300, L500.2500 ####[facility] [address] [place], [address] CO2 [Moles/Vol] 28.0 mmol/L Normal 21.0-32.0 [facility] Comment on above: Performed By: #### L 501.5200, L100.0100, L501.2300, L500.2500 ####[facility] [address] [place], [address] Creatinine [Mass/Vol] 0.54 mg/dL Low 0.70-1.30 [facility] Comment on above: Result Comment: The validity of the calculated GFR GFRAA in patients over70 years has not been determined. Clinical correlation isessential. Performed By: #### L 501.5200, L100.0100, L501.2300, L500.2500 ####[facility] [address] [place], [address] ECRCL 131.40 ml/min Normal [facility] Comment on above: Performed By: #### L 501.5200, L100.0100, L501.2300, L500.2500 ####[facility] [address] [place], [address] EST GFR - AA 200 mL/min Normal >60 [facility] Comment on above: Result Comment: Afri can [place] GFR Calc Performed By: #### L 501.5200, L100.0100, L501.2300, L500.2500 ####[facility] [address] [place], [address] GAP 6 Normal 5-15 [facility] Comment on above: Performed By: #### L 501.5200, L100.0100, L501.2300, L500.2500 ####[facility] [address] [place], [address] GFR/1.73 sq M.predicted among non-blacks MDRD (S/P/Bld) [Vol rate/Area] 165 mL/min/{1.73_m2} Normal >60 [facility] Comment on above: Result Comment: Non- GFR Calc Performed By: #### L 501.5200, L100.0100, L501.2300, L500.2500 ####[facility] [address] [place], [address] Glucose [Mass/Vol] 183 mg/dL High 74-106 [facility] Comment on above: Result Comment: Fast ing Glucose result greater than or equal to 126 mg/dLsuggests DIABETES MELLITUS per A.D.A. criteria. Performed By: #### L 501.5200, L100.0100, L501.2300, L500.2500 ####[facility] [address] [place], [address] Potassium [Moles/Vol] 4.0 mmol/L Normal 3.5-5.1 [facility] Comment on above: Performed By: #### L 501.5200, L100.0100, L501.2300, L500.2500 ####[facility] [address] [place], [address] Sodium [Moles/Vol] 123 mmol/L Low 136-145 [facility] Comment on above: Performed By: #### L 501.5200, L100.0100, L501.2300, L500.2500 ####[facility] [address] [place], [address] Urea nitrogen [Mass/Vol] 8 mg/dL Normal 7-18 [facility] Comment on above: Performed By: #### L 501.5200, L100.0100, L501.2300, L500.2500 ####[facility] [address] [place], [address] CBC W/Diff, Automatedon 01-0 5-2025 Absolute Lymph 0.40 X10 3/uL Low 0.83-4.51 [facility] Comment on above: Performed By: #### L 501.5200, L100.0100, L501.2300, L500.2500 ####[facility] [address] [place], [address] Absolute Neut 9.3 X10 3/uL High 2.0-7.7 [facility] Comment on above: Performed By: #### L 501.5200, L100.0100, L501.2300, L500.2500 ####[facility] [address] [place], [address] Basophils/100 WBC (Bld) 0.1 % Normal 0-1 [facility] Comment on above: Performed By: #### L 501.5200, L100.0100, L501.2300, L500.2500 ####[facility] [address] [place], [address] Eosinophils/100 WBC (Bld) 0.0 % Normal 0-5 [facility] Comment on above: Performed By: #### L 501.5200, L100.0100, L501.2300, L500.2500 ####[facility] [address] [place], [address] Erythrocyte distribution width (RBC) [Ratio] 11.8 % Normal 11.6-14.6 [facility] Comment on above: Performed By: #### L 501.5200, L100.0100, L501.2300, L500.2500 ####[facility] [address] [place], [address] Hematocrit (Bld) [Volume fraction] 34.9 % Low 40-54 [facility] Comment on above: Performed By: #### L 501.5200, L100.0100, L501.2300, L500.2500 ####[facility] [address] [place], [address] Hemoglobin (Bld) [Mass/Vol] 12.1 g/dL Low 13.0-16.5 [facility] Comment on above: Performed By: #### L 501.5200, L100.0100, L501.2300, L500.2500 ####[facility] [address] [place], [address] IG% 0.400 Normal 0.0-0.9 [facility] Comment on above: Result Comment: IG% - Immature Granulocytes (promyelocytes, myelocytes andmetamyelocytes) > 1% indicates that a LEFT SHIFT is Present. Performed By: #### L 501.5200, L100.0100, L501.2300, L500.2500 ####[facility] [address] [place], [address] Lymphocytes/100 WBC (Bld) 4.0 % Low 19-41 [facility] Comment on above: Performed By: #### L 501.5200, L100.0100, L501.2300, L500.2500 ####[facility] [address] [place], [address] MCH (RBC) [Entitic mass] 31.1 pg Normal 27.0-32.0 [facility] Comment on above: Performed By: #### L 501.5200, L100.0100, L501.2300, L500.2500 ####[facility] [address] [place], [address] MCHC (RBC) [Mass/Vol] 34.7 g/dL Normal 32-36 [facility] Comment on above: Performed By: #### L 501.5200, L100.0100, L501.2300, L500.2500 ####[facility] [address] [place], [address] MCV (RBC) [Entitic vol] 89.7 fL Normal 80-94 [facility] Comment on above: Performed By: #### L 501.5200, L100.0100, L501.2300, L500.2500 ####[facility] [address] [place], [address] Monocytes/100 WBC (Bld) 2.0 % Normal 0-10 [facility] Comment on above: Performed By: #### L 501.5200, L100.0100, L501.2300, L500.2500 ####[facility] [address] [place], [address] Neutrophils/100 WBC (Bld) 93.5 % High 47-70 [facility] Comment on above: Performed By: #### L 501.5200, L100.0100, L501.2300, L500.2500 ####[facility] [address] [place], [address] Nucleated RBC (Bld) [#/Vol] 0 10*3/uL Normal 0-5 [facility] Comment on above: Performed By: #### L 501.5200, L100.0100, L501.2300, L500.2500 ####[facility] [address] [place], [address] Platelet mean volume (Bld) [Entitic vol] 8.1 fL Normal 6.2-12.0 [facility] Comment on above: Performed By: #### L 501.5200, L100.0100, L501.2300, L500.2500 ####[facility] [address] [place], [address] Platelets (Bld) [#/Vol] 368 10*3/uL Normal 150-450 [facility] Comment on above: Performed By: #### L 501.5200, L100.0100, L501.2300, L500.2500 ####[facility] [address] [place], [address] RBC (Bld) [#/Vol] 3.89 10*6/uL Low 4.6-6.2 [facility] Comment on above: Performed By: #### L 501.5200, L100.0100, L501.2300, L500.2500 ####[facility] [address] [place], [address] RDW SD 38.4 fl Normal 35.1-43.9 [facility] Comment on above: Performed By: #### L 501.5200, L100.0100, L501.2300, L500.2500 ####[facility] [address] [place], [address] WBC (Bld) [#/Vol] 9.9 10*3/uL Normal 4.4-11.0 [facility] Comment on above: Performed By: #### L 501.5200, L100.0100, L501.2300, L500.2500 ####[facility] [address] [place], [address] Clarity (U)Ordered By: Felix Garcia on 02-29-2024 Urine clarity Clear Clear [facility] Color (U)Ordered By: Felix méndez on 02-29-2024 Urine color determination Yellow Yellow [facility] Glucose Ql (U)Ordered By: Chucky Garcia on 02-29-2024 Urine glucose detection 100 mg/dl High Normal [facility] Magnesiumon 02-29-2024 Magnesium [Mass/Vol] 2.1 mg/dL Normal 1.6-2.6 [facility] Comment on above: Performed By: #### L 501.5200, L100.0100, L501.2300, L500.2500 ####[facility] [address] [place], [address] Magnesium measurementOrdered By: Felix Garcia on 02-29-2024 Magnesium measurement 2.1 mg/dL 1.6-2.6 [facility] Phosphoruson 02-29-2024 Phosphate [Mass/Vol] 3.0 mg/dL Normal 2.5-4.9 [facility] Comment on above: Performed By: #### L 501.5200, L100.0100, L501.2300, L500.2500 ####[facility] [address] [place], [address] Phosphorus measurementOrdere d By: Felix Garcia on 02-29-2024 Phosphorus measurement 3.0 mg/dL 2.5-4.9 [facility] Protein Test strip Ql (U)Ord ered By: Felix Garcia on 02-29-2024 Urine protein assay by test strip, semi-quantitative 30 mg/dl High Negative [facility] Specific gravity (U) [Rel de nsity]Ordered By: Felix Garcia on 02-29-2024 Urine specific gravity measurement 1.015 1.002-1.03 0 [facility] Urinalysis, Routine (Dipstic k)on 02-29-2024 BILIRUBIN URINE Negative Normal Negative [facility] Comment on above: Order Comment: CLEAN CATCH Performed By: #### M 100.2200, L4.2010 ####[facility] [address] [place], [address] Clarity (U) Clear Normal Clear [facility] Comment on above: Order Comment: CLEAN CATCH Performed By: #### M 100.2200, L400.2010 ####[facility] [address] [place], [address] Color (U) Yellow Normal Yellow [facility] Comment on above: Order Comment: CLEAN CATCH Performed By: #### M ####[facility] [address] [place], [address] GLUCOSE, UR 100 mg/dl Abnormal Normal [facility] Comment on above: Order Comment: CLEAN CATCH Performed By: #### M ####[facility] [address] [place], [address] KETONE UR Negative Normal Negative [facility] Comment on above: Order Comment: CLEAN CATCH Performed By: #### M ####[facility] [address] [place], [address] LEUK ESTERASE Negative Normal Negative [facility] Comment on above: Order Comment: CLEAN CATCH Performed By: #### M ####[facility] [address] [place], [address] Nitrite Ql (U) Negative Normal Negative [facility] Comment on above: Order Comment: CLEAN CATCH Performed By: #### M ####[facility] [address] [place], [address] OCCULT BLOOD-UR Negative Normal Negative [facility] Comment on above: Order Comment: CLEAN CATCH Performed By: #### M ####[facility] [address] [place], [address] pH UR 6.0 Normal 5.0 - 8.0 [facility] Comment on above: Order Comment: CLEAN CATCH Performed By: #### M ####[facility] [address] [place], [address] PROT DIPSTX 30 mg/dl Abnormal Negative [facility] Comment on above: Order Comment: CLEAN CATCH Performed By: #### M 100.2200, L4 ####[facility] [address] [place], [address] SP.GR. DIPSTX 1.015 Normal 1.002-1.03 0 [facility] Comment on above: Order Comment: CLEAN CATCH Performed By: #### M 100.2200, L4 ####[facility] [address] [place], [address] UROBILI 1 mg/dl Abnormal Normal [facility] Comment on above: Order Comment: CLEAN CATCH Performed By: #### M 100.2200, L4 ####[facility] [address] [place], [address] Urine cultureOrdered By: Tommy Garcia on 02-29-2024 Urine culture Culture exhibits no growth. [facility] Urine total bilirubin detect ion by test stripOrdered By: Felix Garcia on 02-29-2024 Urine total bilirubin detection by test strip Negative Negative [facility] Urobilinogen Ql (U)Ordered B y: Felix Garcia on 02-29-2024 Urine urobilinogen measurement 1 mg/dl High Normal [facility] pH (U)Ordered By: Felix dailey on 02-29-2024 Urine pH 6.0 5.0 - 8.0 [facility] 12 Lead EKGon 02-28-2024 12 Lead EKG Normal [facility] BNP (brain natriuretic pepti de measurement)Ordered By: Felix Garcia on 02-28-2024 BNP (brain natriuretic peptide measurement) 20.2 pg/mL 0-100 [facility] BNP,B-Type NATRIURETIC PEPTI Pavel 02-28-2024 Natriuretic peptide B (Bld) [Mass/Vol] 20.2 pg/mL Normal 0-100 [facility] Comment on above: Performed By: #### L 300.8000, L503.6620 ####[facility] [address] [place], [address] Basic Metabolic Profile (BMP )on 02-28-2024 BUN/CRE 17.1 RATIO Normal 10-20 [facility] Comment on above: Order Comment: 'TROP ' Serial specimen #1, #2 or #3: 1 Performed By: #### L 100.0100, L501.4020, L500.2500 ####[facility] [address] [place], [address] CA,Total 8.7 mg/dL Normal 8.5-10.1 [facility] Comment on above: Order Comment: 'TROP ' Serial specimen #1, #2 or #3: 1 Performed By: #### L 100.0100, L501.4020, L500.2500 ####[facility] [address] [place], [address] Chloride [Moles/Vol] 90 mmol/L Low 98-107 [facility] Comment on above: Order Comment: 'TROP ' Serial specimen #1, #2 or #3: 1 Performed By: #### L 100.0100, L501.4020, L500.2500 ####[facility] [address] [place], [address] CO2 [Moles/Vol] 28.0 mmol/L Normal 21.0-32.0 [facility] Comment on above: Order Comment: 'TROP ' Serial specimen #1, #2 or #3: 1 Performed By: #### L 100.0100, L501.4020, L500.2500 ####[facility] [address] [place], [address] Creatinine [Mass/Vol] 0.58 mg/dL Low 0.70-1.30 [facility] Comment on above: Order Comment: 'TROP ' Serial specimen #1, #2 or #3: 1 Result Comment: The validity of the calculated GFR GFRAA in patients over70 years has not been determined. Clinical correlation isessential. Performed By: #### L 100.0100, L501.4020, L500.2500 ####[facility] [address] [place], [address] ECRCL 136.35 ml/min Normal [facility] Comment on above: Order Comment: 'TROP ' Serial specimen #1, #2 or #3: 1 Performed By: #### L 100.0100, L501.4020, L500.2500 ####[facility] [address] [place], [address] EST GFR - AA 181 mL/min Normal >60 [facility] Comment on above: Order Comment: 'TROP ' Serial specimen #1, #2 or #3: 1 Result Comment: Afri can [place] GFR Calc Performed By: #### L 100.0100, L501.4020, L500.2500 ####[facility] [address] [place], [address] GAP 7 Normal 5-15 [facility] Comment on above: Order Comment: 'TROP ' Serial specimen #1, #2 or #3: 1 Performed By: #### L 100.0100, L501.4020, L500.2500 ####[facility] [address] [place], [address] GFR/1.73 sq M.predicted among non-blacks MDRD (S/P/Bld) [Vol rate/Area] 150 mL/min/{1.73_m2} Normal >60 [facility] Comment on above: Order Comment: 'TROP ' Serial specimen #1, #2 or #3: 1 Result Comment: Non- GFR Calc Performed By: #### L 100.0100, L501.4020, L500.2500 ####[facility] [address] [place], [address] Glucose [Mass/Vol] 145 mg/dL High 74-106 [facility] Comment on above: Order Comment: 'TROP ' Serial specimen #1, #2 or #3: 1 Result Comment: Fast ing Glucose result greater than or equal to 126 mg/dLsuggests DIABETES MELLITUS per A.D.A. criteria. Performed By: #### L 100.0100, L501.4020, L500.2500 ####[facility] [address] [place], [address] Potassium [Moles/Vol] 4.2 mmol/L Normal 3.5-5.1 [facility] Comment on above: Order Comment: 'TROP ' Serial specimen #1, #2 or #3: 1 Result Comment: Mode rate Hemolysis, Result may be falsely increased. Performed By: #### L 100.0100, L501.4020, L500.2500 ####[facility] [address] [place], [address] Sodium [Moles/Vol] 125 mmol/L Low 136-145 [facility] Comment on above: Order Comment: 'TROP ' Serial specimen #1, #2 or #3: 1 Performed By: #### L 100.0100, L501.4020, L500.2500 ####[facility] [address] [place], [address] Urea nitrogen [Mass/Vol] 10 mg/dL Normal 7-18 [facility] Comment on above: Order Comment: 'TROP ' Serial specimen #1, #2 or #3: 1 Performed By: #### L 100.0100, L501.4020, L500.2500 ####[facility] [address] [place], [address] Brain/Head without Contrasto n 02-28-2024 Brain/Head without Contrast Normal [facility] CBC W/Diff, Automatedon 01-0 Absolute Lymph 0.94 X10 3/uL Normal 0.83-4.51 [facility] Comment on above: Performed By: #### L 100.0100, L501.4020, L500.2500 ####[facility] [address] [place], [address] Absolute Neut 8.1 X10 3/uL High 2.0-7.7 [facility] Comment on above: Performed By: #### L 100.0100, L501.4020, L500.2500 ####[facility] [address] [place], [address] Basophils/100 WBC (Bld) 0.6 % Normal 0-1 [facility] Comment on above: Performed By: #### L 100.0100, L501.4020, L500.2500 ####[facility] [address] [place], [address] Eosinophils/100 WBC (Bld) 0.3 % Normal 0-5 [facility] Comment on above: Performed By: #### L 100.0100, L501.4020, L500.2500 ####[facility] [address] [place], [address] Erythrocyte distribution width (RBC) [Ratio] 11.9 % Normal 11.6-14.6 [facility] Comment on above: Performed By: #### L 100.0100, L501.4020, L500.2500 ####[facility] [address] [place], [address] Hematocrit (Bld) [Volume fraction] 37.7 % Low 40-54 [facility] Comment on above: Performed By: #### L 100.0100, L501.4020, L500.2500 ####[facility] [address] [place], [address] Hemoglobin (Bld) [Mass/Vol] 13.1 g/dL Normal 13.0-16.5 [facility] Comment on above: Performed By: #### L 100.0100, L501.4020, L500.2500 ####[facility] [address] [place], [address] IG% 0.500 Normal 0.0-0.9 [facility] Comment on above: Result Comment: IG% - Immature Granulocytes (promyelocytes, myelocytes andmetamyelocytes) > 1% indicates that a LEFT SHIFT is Present. Performed By: #### L 100.0100, L501.4020, L500.2500 ####[facility] [address] [place], [address] Lymphocytes/100 WBC (Bld) 9.2 % Low 19-41 [facility] Comment on above: Performed By: #### L 100.0100, L501.4020, L500.2500 ####[facility] [address] [place], [address] MCH (RBC) [Entitic mass] 30.8 pg Normal 27.0-32.0 [facility] Comment on above: Performed By: #### L 100.0100, L501.4020, L500.2500 ####[facility] [address] [place], [address] MCHC (RBC) [Mass/Vol] 34.7 g/dL Normal 32-36 [facility] Comment on above: Performed By: #### L 100.0100, L501.4020, L500.2500 ####[facility] [address] [place], [address] MCV (RBC) [Entitic vol] 88.7 fL Normal 80-94 [facility] Comment on above: Performed By: #### L 100.0100, L501.4020, L500.2500 ####[facility] [address] [place], [address] Monocytes/100 WBC (Bld) 10.4 % High 0-10 [facility] Comment on above: Performed By: #### L 100.0100, L501.4020, L500.2500 ####[facility] [address] [place], [address] Neutrophils/100 WBC (Bld) 79.0 % High 47-70 [facility] Comment on above: Performed By: #### L 100.0100, L501.4020, L500.2500 ####[facility] [address] [place], [address] Nucleated RBC (Bld) [#/Vol] 0 10*3/uL Normal 0-5 [facility] Comment on above: Performed By: #### L 100.0100, L501.4020, L500.2500 ####[facility] [address] [place], [address] Platelet mean volume (Bld) [Entitic vol] 8.1 fL Normal 6.2-12.0 [facility] Comment on above: Performed By: #### L 100.0100, L501.4020, L500.2500 ####[facility] [address] [place], [address] Platelets (Bld) [#/Vol] 376 10*3/uL Normal 150-450 [facility] Comment on above: Performed By: #### L 100.0100, L501.4020, L500.2500 ####[facility] [address] [place], [address] RBC (Bld) [#/Vol] 4.25 10*6/uL Low 4.6-6.2 [facility] Comment on above: Performed By: #### L 100.0100, L501.4020, L500.2500 ####[facility] [address] [place], [address] RDW SD 38.4 fl Normal 35.1-43.9 [facility] Comment on above: Performed By: #### L 100.0100, L501.4020, L500.2500 ####[facility] [address] [place], [address] WBC (Bld) [#/Vol] 10.2 10*3/uL Normal 4.4-11.0 [facility] Comment on above: Performed By: #### L 100.0100, L501.4020, L500.2500 ####[facility] [address] [place], [address] CTA Chest W/WO Contraston CTA Chest W/WO Contrast Normal [facility] Chest PA and Lateralon 02-27 Chest PA and Lateral Normal [facility] D-Dimer Quantitative (DVT/PE )on 02-28-2024 D-DIMER QUANT 3.52 FEU/ug/m Invalid Interpretation Code 0.27-0.49 [facility] Comment on above: Result Comment: D-Di jose ELEVATED (>0.49): Additional studies and clinicalassessments are indicated to conclude diagnosis of:Deep Vein Thrombosis (DVT) or Pulmonary Embolism (PE)CRITICAL VALUE CALLED TO [facility]02/28/24 1732 Aleshia Galvan.RESULTS READ BACK BY SAME. Performed By: #### L 300.8000, L503.6620 ####[facility] [address] [place], [address] D-dimer measurement for deep venous thrombosisOrdered By: Felix Garcia on 02-28-2024 D-dimer measurement for deep venous thrombosis 3.52 FEU/ug/m High 0.27-0.49 [facility] Echo Completeon 02-28-2024 Echo Complete Normal [facility] Emergency Department Summary on 02-28-2024 Emergency Department Summary Normal [facility] H AND P Exam - Hospitaliston 02-28-2024 H&P Exam - Hospitalist Normal [facility] L501.4020on 02-28-2024 TROPONIN-I HS 6 pg/mL Normal 3.0-78.0 [facility] Comment on above: Order Comment: 'TROP ' Serial specimen #1, #2 or #3: 1 Result Comment: Plea se Note: New Test Units and Gender Specific Reference Ranges. For more information see Policy Stat Procedure [place] High Sensitivity Troponin (TNIH) and attachments. Performed By: #### L 100.0100, L501.4020, L500.2500 ####[facility] [address] [place], [address] M100.019on 02-28-2024 M100.019 Negative Normal [facility] Comment on above: Performed By: #### M 100.019 ####[facility] [address] [place], [address] RESPIRATORY PANEL MOLECULARo n 02-28-2024 RP PANEL Normal [facility] Comment on above: Performed By: #### M 100.638 ####[facility] [address] [place], [address] Sinus/Facial Boneon 02-27-19 25 Sinus/Facial Bone Normal [facility] Troponin IOrdered By: Andrey viramontes on 02-28-2024 Troponin I 6 pg/mL 3.0-78.0 [facility] Pulmonary Visit Reporton Pulmonary Visit Report Normal [facility] CBC W/Diff, Automatedon Absolute Lymph 1.77 X10 3/uL Normal 0.83-4.51 [facility] Comment on above: Performed By: #### L 100.0100 ####[facility] [address] [place], [address] Absolute Neut 7.1 X10 3/uL Normal 2.0-7.7 [facility] Comment on above: Performed By: #### L 100.0100 ####[facility] [address] [place], [address] Basophils/100 WBC (Bld) 1.2 % High 0-1 [facility] Comment on above: Performed By: #### L 100.0100 ####[facility] [address] [place], [address] Eosinophils/100 WBC (Bld) 2.3 % Normal 0-5 [facility] Comment on above: Performed By: #### L 100.0100 ####[facility] [address] [place], [address] Erythrocyte distribution width (RBC) [Ratio] 11.8 % Normal 11.6-14.6 [facility] Comment on above: Performed By: #### L 100.0100 ####[facility] [address] [place], [address] Hematocrit (Bld) [Volume fraction] 43.3 % Normal 40-54 [facility] Comment on above: Performed By: #### L 100.0100 ####[facility] [address] [place], [address] Hemoglobin (Bld) [Mass/Vol] 14.3 g/dL Normal 13.0-16.5 [facility] Comment on above: Performed By: #### L 100.0100 ####[facility] [address] [place], [address] IG% 0.400 Normal 0.0-0.9 [facility] Comment on above: Result Comment: IG% - Immature Granulocytes (promyelocytes, myelocytes andmetamyelocytes) > 1% indicates that a LEFT SHIFT is Present. Performed By: #### L 100.0100 ####[facility] [address] [place], [address] Lymphocytes/100 WBC (Bld) 17.0 % Low 19-41 [facility] Comment on above: Performed By: #### L 100.0100 ####[facility] [address] [place], [address] MCH (RBC) [Entitic mass] 30.2 pg Normal 27.0-32.0 [facility] Comment on above: Performed By: #### L 100.0100 ####[facility] [address] [place], [address] MCHC (RBC) [Mass/Vol] 33.0 g/dL Normal 32-36 [facility] Comment on above: Performed By: #### L 100.0100 ####[facility] [address] [place], [address] MCV (RBC) [Entitic vol] 91.5 fL Normal 80-94 [facility] Comment on above: Performed By: #### L 100.0100 ####[facility] [address] [place], [address] Monocytes/100 WBC (Bld) 10.6 % High 0-10 [facility] Comment on above: Performed By: #### L 100.0100 ####[facility] [address] [place], [address] Neutrophils/100 WBC (Bld) 68.5 % Normal 47-70 [facility] Comment on above: Performed By: #### L 100.0100 ####[facility] [address] [place], [address] Nucleated RBC (Bld) [#/Vol] 0 10*3/uL Normal 0-5 [facility] Comment on above: Performed By: #### L 100.0100 ####[facility] [address] [place], [address] Platelet mean volume (Bld) [Entitic vol] 8.6 fL Normal 6.2-12.0 [facility] Comment on above: Performed By: #### L 100.0100 ####[facility] [address] [place], [address] Platelets (Bld) [#/Vol] 446 10*3/uL Normal 150-450 [facility] Comment on above: Performed By: #### L 100.0100 ####[facility] [address] [place], [address] RBC (Bld) [#/Vol] 4.73 10*6/uL Normal 4.6-6.2 [facility] Comment on above: Performed By: #### L 100.0100 ####[facility] [address] [place], [address] RDW SD 39.8 fl Normal 35.1-43.9 [facility] Comment on above: Performed By: #### L 100.0100 ####[facility] [address] [place], [address] WBC (Bld) [#/Vol] 10.4 10*3/uL Normal 4.4-11.0 [facility] Comment on above: Performed By: #### L 100.0100 ####[facility] [address] [place], [address] Spine Thoracic (Routine)on 1 Spine Thoracic (Routine) Normal [facility] CNOVon 08-24-2023 CNOV Office Visit (UCWSTR ) AIDEN ORTIZ ([id number]) 1960 M Date Time Provider Department 08/24/23 11:30 AM CARA MARQUEZ [facility] During your visit today, we recorded the following information about you: Cara Marquez PA-C 08/24/2023 11:59 AM Signed Presents to [facility] triage with a chief complaint of shortness [...] squad, will drive across the street to [facility]. He is not in acute distress here. [...] Status:Closed by CARA MARQUEZ on 08/24/23 Normal [facility] Absolute lymphocyte countOrd ered By: Andrey Guerrero on 05-26-2023 Lymphocytes Auto (Unsp spec) [#/Vol] 1.02 10*3/uL 0.83-4.51 [facility] Automated lymphocyte count a s percentage of total leukocytesOrdered By: Andrey Guerrero on 05-26-2023 Lymphocytes/100 WBC Auto (Unsp spec) 19.4 % 19-41 [facility] Basophil percentageOrdered B y: Andrey Guerrero on 05-26-2023 Basophils/100 WBC (Bld) 1.5 % 0-1 [facility] Bilirubin [Mass/Vol] 0.80 mg/dL 0.20-1.00 [facility] Comment on above: For patients on eltr ombopag therapy, use of Dimension [place] TBIL is not recommended. Chloride [Moles/Vol] 91 mmol/L 98-107 [facility] Eosinophils/100 WBC (Bld) 2.1 % 0-5 [facility] Glucose [Mass/Vol] 97 mg/dL 74-106 [facility] Hemoglobin (Bld) [Mass/Vol] 15.1 g/dL 13.0-16.5 [facility] Monocytes/100 WBC (Bld) 13.7 % 0-10 [facility] Neutrophils (Bld) [#/Vol] 3.3 10*3/uL 2.0-7.7 [facility] Neutrophils/100 WBC (Bld) 62.9 % 47-70 [facility] Potassium [Moles/Vol] 4.2 mmol/L 3.5-5.1 [facility] Protein [Mass/Vol] 6.9 g/dL 6.4-8.2 [facility] Sodium [Moles/Vol] 126 mmol/L 136-145 [facility] WBC (Bld) [#/Vol] 5.3 10*3/uL 4.4-11.0 [facility] Determination of erythrocyte mean corpuscular volume (MCV)Ordered By: Andrey Guerrero on 05-26-2023 MCV (RBC) [Entitic vol] 89.3 fL 80-94 [facility] Erythrocyte distribution wid th ratioOrdered By: Andrey Guerrero on 05-26-2023 Erythrocyte distribution width (RBC) [Ratio] 11.9 % 11.6-14.6 [facility] Erythrocyte distribution wid th standard deviationOrdered By: Andrey Guerrero on 05-26-2023 Erythrocyte distribution width (RBC) [Entitic vol] 38.3 fL 35.1-43.9 [facility] Hematocrit Auto (Bld) [Volum e fraction]Ordered By: Andrey Guerrero on 05-26-2023 Hematocrit (Bld) [Volume fraction] 43.2 % 40-54 [facility] Immature granulocytes/100 WB C Auto (Bld)Ordered By: Andrey Guerrero on 05-26-2023 Immature granulocytes/100 WBC (Bld) 0.400 % 0.0-0.9 [facility] Comment on above: IG% - Immature Granu locytes (promyelocytes, myelocytes and metamyelocytes) > 1% indicates that a LEFT SHIFT is Present. Laboratory - Chemistry and C hemistry - challengeOrdered By: Andrey Guerrero on 05-26-2023 Albumin/Globulin [Mass ratio] 1.0 {ratio} 0.9-2.4 [facility] ALP [Catalytic activity/Vol] 68 U/L 45-117 [facility] ALT [Catalytic activity/Vol] 20 U/L 16-61 [facility] CO2 [Moles/Vol] 28.0 mmol/L 21.0-32.0 [facility] Globulin (S) [Mass/Vol] 3.4 g/dL 2.2-4.2 [facility] Lipase [Catalytic activity/Vol] 23 U/L 13-75 [facility] Comment on above: Please note:LIPASE r evised reference range effective 22. New Lipase methodology. Expected to produce lower values than the previous assay method. NEW Reference Range: 13 - 75 U/L Urea nitrogen/Creatinine [Mass ratio] 9.9 mg/mg 10-20 [facility] Laboratory - Hematology and Cell countsOrdered By: Andrey Guerrero on 05-26-2023 MCH (RBC) [Entitic mass] 31.2 pg 27.0-32.0 [facility] MCHC (RBC) [Mass/Vol] 35.0 g/dL 32-36 [facility] Nucleated RBC/100 WBC (Bld) [Ratio] 0 % 0-5 [facility] Platelet mean volume (Bld) [Entitic vol] 8.3 fL 6.2-12.0 [facility] Platelets (Bld) [#/Vol] 322 10*3/uL 150-450 [facility] No Panel InformationOrdered By: Andrey Guerrero on 05-26-2023 Estimated Creatinine Clearance Calc 118.90 ml/min [facility] Estimated GFR (MDRD) Amer 173 mL/min >60 [facility] Comment on above: GFR Calc Estimated GFR (MDRD) Non-Af Amer 143 mL/min >60 [facility] Comment on above: Non- GFR Calc RBC Auto (Bld) [#/Vol]Ordere d By: Andrey Guerrero on 05-26-2023 RBC (Bld) [#/Vol] 4.84 10*6/uL 4.6-6.2 [facility] Serum or plasma calcium nimo urement (mass/volume)Ordered By: Andrey Guerrero on 05-26-2023 Calcium [Mass/Vol] 8.7 mg/dL 8.5-10.1 [facility] Serum or plasma creatinine m easurement (mass/volume)Ordered By: Andrey Guerrero on 05-26-2023 Creatinine [Mass/Vol] 0.61 mg/dL 0.70-1.30 [facility] Comment on above: The validity of the calculated GFR & GFRAA in patients over 70 years has not been determined. Clinical correlation is essential. Serum or plasma urea nitroge n measurement (mass/volume)Ordered By: Andrey Guerrero on 05-26-2023 Urea nitrogen [Mass/Vol] 6 mg/dL 7-18 [facility] Thin prep Papanicolaou smear with manual screeningOrdered By: Andrey Guerrero on 05-26-2023 Thin prep Papanicolaou smear with manual screening 3.5 g/dL 3.2-5.0 [facility] Thin prep Papanicolaou smear with manual screening 21 U/L 15-37 [facility] Thin prep Papanicolaou smear with manual screening 7 5-15 [facility] Basophil percentageOrdered B y: Stone Fortune on 05-01-2023 Basophil percentage 4.4 mg/dL 2.5-4.9 [facility] Chloride [Moles/Vol] 95 mmol/L 98-107 [facility] Glucose [Mass/Vol] 82 mg/dL 74-106 [facility] Hemoglobin (Bld) [Mass/Vol] 14.7 g/dL 13.0-16.5 [facility] Potassium [Moles/Vol] 4.0 mmol/L 3.5-5.1 [facility] Sodium [Moles/Vol] 132 mmol/L 136-145 [facility] WBC (Bld) [#/Vol] 8.2 10*3/uL 4.4-11.0 [facility] Determination of erythrocyte mean corpuscular volume (MCV)Ordered By: Stone Fortune on 05-01-2023 MCV (RBC) [Entitic vol] 91.6 fL 80-94 [facility] Erythrocyte distribution wid th ratioOrdered By: Stone Fortune on 05-01-2023 Erythrocyte distribution width (RBC) [Ratio] 12.0 % 11.6-14.6 [facility] Erythrocyte distribution wid th standard deviationOrdered By: Stone Fortune on 05-01-2023 Erythrocyte distribution width (RBC) [Entitic vol] 40.3 fL 35.1-43.9 [facility] Hematocrit Auto (Bld) [Volum e fraction]Ordered By: Stone Fortune on 05-01-2023 Hematocrit (Bld) [Volume fraction] 43.8 % 40-54 [facility] Laboratory - Chemistry and C hemistry - challengeOrdered By: Stone Fortune on 05-01-2023 CO2 [Moles/Vol] 30.0 mmol/L 21.0-32.0 [facility] Magnesium [Mass/Vol] 2.5 mg/dL 1.6-2.6 [facility] Urea nitrogen/Creatinine [Mass ratio] 18.3 mg/mg 10-20 [facility] Laboratory - Hematology and Cell countsOrdered By: Stone Fortune on 05-01-2023 MCH (RBC) [Entitic mass] 30.8 pg 27.0-32.0 [facility] MCHC (RBC) [Mass/Vol] 33.6 g/dL 32-36 [facility] Platelet mean volume (Bld) [Entitic vol] 8.6 fL 6.2-12.0 [facility] Platelets (Bld) [#/Vol] 400 10*3/uL 150-450 [facility] No Panel InformationOrdered By: Stone Fortune on 05-01-2023 Ionized Calcium 4.98 mg/dL 4.36-5.20 [facility] Estimated GFR (MDRD) Amer 145 mL/min >60 [facility] Comment on above: GFR Calc Estimated GFR (MDRD) Non-Af Amer 120 mL/min >60 [facility] Comment on above: Non- GFR Calc Parathyroid Hormone (Intact) 35.6 pg/mL 18.4-80.1 [facility] Prostate Specific Antigen Screen 0.30 ng/mL 0.00-4.00 [facility] Comment on above: This test was perfor med using the TPSA assay method for [employer] chemistry system. Values obtained with differentassay methods cannot be used interchangably.When changing PSA assays in the course of monitoring apatient, additional sequential testing should be carriedout to confirm baseline values. Vitamin D 25-Hydroxy 22.7 ng/mL [facility] Comment on above: Vitamin D 25(OH) Sta tus Range Deficiency <20 ng/mL (50nmol/L) Insufficiency 20 - 30 ng/mL (50 - 75 nmol/L) Sufficiency 30 - 100 ng/mL (75 - 250 nmol/L) Toxicity >100 ng/mL (>250 nmol/L) RBC Auto (Bld) [#/Vol]Ordere d By: Stone Fortune on 05-01-2023 RBC (Bld) [#/Vol] 4.78 10*6/uL 4.6-6.2 [facility] Serum or plasma calcium nimo urement (mass/volume)Ordered By: Stone Fortune on 05-01-2023 Calcium [Mass/Vol] 9.3 mg/dL 8.5-10.1 [facility] Serum or plasma creatinine m easurement (mass/volume)Ordered By: Stone Fortune on 05-01-2023 Creatinine [Mass/Vol] 0.71 mg/dL 0.70-1.30 [facility] Comment on above: The validity of the calculated GFR & GFRAA in patients over 70 years has not been determined. Clinical correlation is essential. Serum or plasma thyroid stim ulating hormone (TSH) measurement (units/volume)Ordered By: Stone Fortune on 05-01-2023 TSH Qn 1.18 uIU/mL 0.358-3.74 [facility] Serum or plasma urea nitroge n measurement (mass/volume)Ordered By: Stone Fortune on 05-01-2023 Urea nitrogen [Mass/Vol] 13 mg/dL 7-18 [facility] Thin prep Papanicolaou smear with manual screeningOrdered By: Stone Fortune on 05-01-2023 Thin prep Papanicolaou smear with manual screening 7 5-15 [facility] Bacteria identified Respirat ory culture Nom (Unsp spec)Ordered By: Efren Kay on 06-23-2022 Respiratory Culture Bordetella bronchiseptica [facility] Respiratory Culture Moraxella group [facility] Gram stain for investigation of transfusion reactionOrdered By: Efren Kay on 06-23-2022 Microscopic observation Gram stain Nom (Unsp spec) [facility] Basophil percentageOrdered B y: Dr. Fortune on 06-03-2022 Basophil percentage 3.7 mg/dL 2.5-4.9 [facility] Bilirubin [Mass/Vol] 0.70 mg/dL 0.20-1.00 [facility] Comment on above: For patients on eltr ombopag therapy, use of Dimension [place] TBIL is not recommended. Chloride [Moles/Vol] 95 mmol/L 98-107 [facility] Glucose [Mass/Vol] 96 mg/dL 74-106 [facility] Potassium [Moles/Vol] 4.1 mmol/L 3.5-5.1 [facility] Protein [Mass/Vol] 7.1 g/dL 6.4-8.2 [facility] Sodium [Moles/Vol] 127 mmol/L 136-145 [facility] WBC (Bld) [#/Vol] 11.0 10*3/uL 4.4-11.0 [facility] Blood erythrocytes count (nu mber/volume)Ordered By: Dr. Fortune on 06-03-2022 RBC (Bld) [#/Vol] 5.14 10*6/uL 4.6-6.2 [facility] Blood hemoglobin measurement (mass/volume)Ordered By: Dr. Fortune on 06-03-2022 Hemoglobin (Bld) [Mass/Vol] 16.3 g/dL 13.0-16.5 [facility] Blood platelet mean volumeOr dered By: Dr. Fortune on 06-03-2022 Platelet mean volume (Bld) [Entitic vol] 8.4 fL 6.2-12.0 [facility] Determination of erythrocyte mean corpuscular volume (MCV)Ordered By: Dr. Fortune on 06-03-2022 MCV (RBC) [Entitic vol] 91.6 fL 80-94 [facility] Hematocrit Auto (Bld) [Volum e fraction]Ordered By: Dr. Fortune on 06-03-2022 Hematocrit (Bld) [Volume fraction] 47.1 % 40-54 [facility] Laboratory - Chemistry and C hemistry - challengeOrdered By: Dr. Fortune on 06-03-2022 ALP [Catalytic activity/Vol] 77 U/L 45-117 [facility] ALT [Catalytic activity/Vol] 22 U/L 16-61 [facility] CO2 [Moles/Vol] 28.0 mmol/L 21.0-32.0 [facility] Globulin (S) [Mass/Vol] 3.4 g/dL 2.2-4.2 [facility] Magnesium [Mass/Vol] 2.4 mg/dL 1.6-2.6 [facility] Urea nitrogen/Creatinine [Mass ratio] 17.8 mg/mg 10-20 [facility] Laboratory - Hematology and Cell countsOrdered By: Dr. Fortune on 06-03-2022 Erythrocyte distribution width (RBC) [Entitic vol] 39.5 fL 35.1-43.9 [facility] Erythrocyte distribution width (RBC) [Ratio] 11.8 % 11.6-14.6 [facility] MCH (RBC) [Entitic mass] 31.7 pg 27.0-32.0 [facility] MCHC Auto (RBC) [Mass/Vol]Or dered By: Dr. Fortune on 06-03-2022 MCHC (RBC) [Mass/Vol] 34.6 g/dL 32-36 [facility] No Panel InformationOrdered By: Dr. Fortune on 06-03-2022 Ionized Calcium 5.0 mg/dL 4.5-5.6 [facility] Comment on above: Performed at: [facility] [address] [id number] Director: Nilton Jacobs PhD, Phone: [phone] Estimated GFR (MDRD) Amer 129 mL/min >60 [facility] Comment on above: GFR Calc Estimated GFR (MDRD) Non-Af Amer 107 mL/min >60 [facility] Comment on above: Non- GFR Calc Parathyroid Hormone (Intact) 18.3 pg/mL 18.4-80.1 [facility] Thyroid Stimulating Hormone (TSH) 1.54 uIU/mL 0.358-3.74 [facility] Vitamin D 25-Hydroxy 14.4 ng/mL [facility] Comment on above: Vitamin D 25(OH) Sta tus Range Deficiency <20 ng/mL (50nmol/L) Insufficiency 20 - 30 ng/mL (50 - 75 nmol/L) Sufficiency 30 - 100 ng/mL (75 - 250 nmol/L) Toxicity >100 ng/mL (>250 nmol/L) Platelets bldOrdered By: Dr. Fortune on 06-03-2022 Platelets (Bld) [#/Vol] 375 10*3/uL 150-450 [facility] Serum or plasma albumin nimo urement (mass/volume)Ordered By: Dr. Fortune on 06-03-2022 Albumin [Mass/Vol] 3.7 g/dL 3.2-5.0 [facility] Serum or plasma albumin/glob ulin mass ratioOrdered By: Dr. Fortune on 06-03-2022 Albumin/Globulin [Mass ratio] 1.1 {ratio} 0.9-2.4 [facility] Serum or plasma calcium nimo urement (mass/volume)Ordered By: Dr. Fortune on 06-03-2022 Calcium [Mass/Vol] 9.1 mg/dL 8.5-10.1 [facility] Serum or plasma creatinine m easurement (mass/volume)Ordered By: Dr. Fortune on 06-03-2022 Creatinine [Mass/Vol] 0.79 mg/dL 0.70-1.30 [facility] Comment on above: The validity of the calculated GFR & GFRAA in patients over 70 years has not been determined. Clinical correlation is essential. Serum or plasma urea nitroge n measurement (mass/volume)Ordered By: Dr. Fortune on 06-03-2022 Urea nitrogen [Mass/Vol] 14 mg/dL 7-18 [facility] Thin prep Papanicolaou smear with manual screeningOrdered By: Dr. Fortune on 06-03-2022 Thin prep Papanicolaou smear with manual screening 24 U/L 15-37 [facility] Thin prep Papanicolaou smear with manual screening 4 5-15 [facility] Absolute lymphocyte counton 11-06-2021 Lymphocytes Auto (Unsp spec) [#/Vol] 0.59 10*3/uL 0.83-4.51 [facility] Work Phone: Basophil percentageon 2021 Basophils/100 WBC (Bld) 0.1 % 0-1 [facility] Work Phone: [phone] Chloride [Moles/Vol] 94 mmol/L 98-107 [facility] Work Phone: Eosinophils/100 WBC (Bld) 0.0 % 0-5 [facility] Work Phone: [phone] Glucose [Mass/Vol] 148 mg/dL 74-106 [facility] Work Phone: [phone] Comment on above: Fasting Glucose resu lt greater than or equal to 126 mg/dL suggests DIABETES MELLITUS per A.D.A. criteria. Neutrophils (Bld) [#/Vol] 12.8 10*3/uL 2.0-7.7 [facility] Work Phone: Neutrophils/100 WBC (Bld) 90.4 % 47-70 [facility] Work Phone: [phone] Potassium [Moles/Vol] 3.6 mmol/L 3.5-5.1 [facility] Work Phone: [phone] Sodium [Moles/Vol] 130 mmol/L 136-145 [facility] Work Phone: WBC (Bld) [#/Vol] 14.1 10*3/uL 4.4-11.0 [facility] Work Phone: [phone] Blood erythrocytes count (nu mber/volume)on 11-06-2021 RBC (Bld) [#/Vol] 4.36 10*6/uL 4.6-6.2 [facility] Work Phone: Blood hemoglobin measurement (mass/volume)on 11-06-2021 Hemoglobin (Bld) [Mass/Vol] 14.4 g/dL 13.0-16.5 [facility] Work Phone: Blood lymphocytes/100 leukoc yteson 11-06-2021 Lymphocytes/100 WBC (Bld) 4.2 % 19-41 [facility] Work Phone: Blood manual differential co mment interpretation (narrative result)on 11-06-2021 Manual differential comment Gera (Bld) [Interp] SCANNED [facility] Work Phone: Comment on above: LYMPHOPENIA NOTED Blood monocytes/100 leukocyt eson 11-06-2021 Monocytes/100 WBC (Bld) 4.7 % 0-10 [facility] Work Phone: Blood platelet mean volumeon 11-06-2021 Platelet mean volume (Bld) [Entitic vol] 8.8 fL 6.2-12.0 [facility] Work Phone: Determination of erythrocyte mean corpuscular volume (MCV)on 11-06-2021 MCV (RBC) [Entitic vol] 93.6 fL 80-94 [facility] Work Phone: Hematocrit Auto (Bld) [Volum e fraction]on 11-06-2021 Hematocrit (Bld) [Volume fraction] 40.8 % 40-54 [facility] Work Phone: Laboratory - Chemistry and C hemistry - challengeon 11-06-2021 CO2 [Moles/Vol] 26.0 mmol/L 21.0-32.0 [facility] Work Phone: Urea nitrogen/Creatinine [Mass ratio] 16.4 mg/mg 10-20 [facility] Work Phone: Laboratory - Hematology and Cell countson 11-06-2021 Erythrocyte distribution width (RBC) [Entitic vol] 40.8 fL 35.1-43.9 [facility] Work Phone: Erythrocyte distribution width (RBC) [Ratio] 11.9 % 11.6-14.6 [facility] Work Phone: Immature granulocytes/100 WBC (Bld) 0.600 % 0.0-0.9 [facility] Work Phone: Comment on above: IG% - Immature Granu locytes (promyelocytes, myelocytes and metamyelocytes) > 1% indicates that a LEFT SHIFT is Present. MCH (RBC) [Entitic mass] 33.0 pg 27.0-32.0 [facility] Work Phone: Nucleated RBC/100 WBC (Bld) [Ratio] 0 % 0-5 [facility] Work Phone: MCHC Auto (RBC) [Mass/Vol]on 11-06-2021 MCHC (RBC) [Mass/Vol] 35.3 g/dL 32-36 [facility] Work Phone: No Panel Informationon 11-06 Estimated Creatinine Clearance Calc 112.02 ml/min [facility] Work Phone: Estimated GFR (MDRD) Amer 173 mL/min >60 [facility] Work Phone: Comment on above: GFR Calc Estimated GFR (MDRD) Non-Af Amer 143 mL/min >60 [facility] Work Phone: Comment on above: Non- GFR Calc Platelets bldon 11-06-2021 Platelets (Bld) [#/Vol] 320 10*3/uL 150-450 [facility] Work Phone: Serum or plasma calcium nimo urement (mass/volume)on 11-06-2021 Calcium [Mass/Vol] 8.7 mg/dL 8.5-10.1 [facility] Work Phone: Serum or plasma creatinine m easurement (mass/volume)on 11-06-2021 Creatinine [Mass/Vol] 0.61 mg/dL 0.70-1.30 [facility] Work Phone: [phone] Comment on above: The validity of the calculated GFR & GFRAA in patients over 70 years has not been determined. Clinical correlation is essential. Serum or plasma urea nitroge n measurement (mass/volume)on 11-06-2021 Urea nitrogen [Mass/Vol] 10 mg/dL 7-18 [facility] Work Phone: Thin prep Papanicolaou smear with manual screeningon 11-06-2021 Thin prep Papanicolaou smear with manual screening 10 5-15 [facility] Work Phone: Absolute lymphocyte counton 11-05-2021 Lymphocytes Auto (Unsp spec) [#/Vol] 0.74 10*3/uL 0.83-4.51 [facility] Work Phone: [phone] Basophil percentageon 2021 Basophils/100 WBC (Bld) 0.3 % 0-1 [facility] Work Phone: Chloride [Moles/Vol] 90 mmol/L 98-107 [facility] Work Phone: Eosinophils/100 WBC (Bld) 0.4 % 0-5 [facility] Work Phone: Glucose [Mass/Vol] 123 mg/dL 74-106 [facility] Work Phone: [phone] Comment on above: Fasting Glucose resu lt from 100 to 125 mg/dL suggests IMPAIRED HOMEOSTASIS per A.D.A. criteria. Neutrophils (Bld) [#/Vol] 12.7 10*3/uL 2.0-7.7 [facility] Work Phone: Neutrophils/100 WBC (Bld) 84.0 % 47-70 [facility] Work Phone: Potassium [Moles/Vol] 3.7 mmol/L 3.5-5.1 [facility] Work Phone: [phone] Sodium [Moles/Vol] 126 mmol/L 136-145 [facility] Work Phone: WBC (Bld) [#/Vol] 15.1 10*3/uL 4.4-11.0 [facility] Work Phone: Blood erythrocytes count (nu mber/volume)on 11-05-2021 RBC (Bld) [#/Vol] 4.56 10*6/uL 4.6-6.2 [facility] Work Phone: Blood hemoglobin measurement (mass/volume)on 11-05-2021 Hemoglobin (Bld) [Mass/Vol] 15.0 g/dL 13.0-16.5 [facility] Work Phone: Blood lymphocytes/100 leukoc yteson 11-05-2021 Lymphocytes/100 WBC (Bld) 4.9 % 19-41 [facility] Work Phone: Blood monocytes/100 leukocyt eson 11-05-2021 Monocytes/100 WBC (Bld) 9.9 % 0-10 [facility] Work Phone: Blood platelet mean volumeon 11-05-2021 Platelet mean volume (Bld) [Entitic vol] 8.2 fL 6.2-12.0 [facility] Work Phone: [phone] Determination of erythrocyte mean corpuscular volume (MCV)on 11-05-2021 MCV (RBC) [Entitic vol] 90.8 fL 80-94 [facility] Work Phone: Hematocrit Auto (Bld) [Volum e fraction]on 11-05-2021 Hematocrit (Bld) [Volume fraction] 41.4 % 40-54 [facility] Work Phone: [phone] Laboratory - Chemistry and C hemistry - challengeon 11-05-2021 CO2 [Moles/Vol] 28.0 mmol/L 21.0-32.0 [facility] Work Phone: Urea nitrogen/Creatinine [Mass ratio] 9.6 mg/mg 10-20 [facility] Work Phone: Laboratory - Hematology and Cell countson 11-05-2021 Erythrocyte distribution width (RBC) [Entitic vol] 38.8 fL 35.1-43.9 [facility] Work Phone: Erythrocyte distribution width (RBC) [Ratio] 11.6 % 11.6-14.6 [facility] Work Phone: Immature granulocytes/100 WBC (Bld) 0.500 % 0.0-0.9 [facility] Work Phone: Comment on above: IG% - Immature Granu locytes (promyelocytes, myelocytes and metamyelocytes) > 1% indicates that a LEFT SHIFT is Present. MCH (RBC) [Entitic mass] 32.9 pg 27.0-32.0 [facility] Work Phone: Nucleated RBC/100 WBC (Bld) [Ratio] 0 % 0-5 [facility] Work Phone: MCHC Auto (RBC) [Mass/Vol]on 11-05-2021 MCHC (RBC) [Mass/Vol] 36.2 g/dL 32-36 [facility] Work Phone: No Panel Informationon 11-05 D-Dimer Quantitative (PE/DVT) 0.39 FEU/ug/m 0.27-0.49 [facility] Work Phone: Comment on above: NORMAL D-Dimer level (<0.50) indicates no DVT or PE. Estimated Creatinine Clearance Calc 124.00 ml/min [facility] Work Phone: Estimated GFR (MDRD) Amer 168 mL/min >60 [facility] Work Phone: Comment on above: GFR Calc Estimated GFR (MDRD) Non-Af Amer 139 mL/min >60 [facility] Work Phone: Comment on above: Non- GFR Calc Troponin I High Sensitivity 8 pg/mL 3.0-78.0 [facility] Work Phone: Comment on above: Please Note: New Mehrdad t Units and Gender Specific Reference Ranges. For more information see Policy Stat Procedure [place] High Sensitivity Troponin (TNIH) and attachments. Platelets bldon 11-05-2021 Platelets (Bld) [#/Vol] 298 10*3/uL 150-450 [facility] Work Phone: Serum or plasma calcium nimo urement (mass/volume)on 11-05-2021 Calcium [Mass/Vol] 9.4 mg/dL 8.5-10.1 [facility] Work Phone: Serum or plasma creatinine m easurement (mass/volume)on 11-05-2021 Creatinine [Mass/Vol] 0.63 mg/dL 0.70-1.30 [facility] Work Phone: Comment on above: The validity of the calculated GFR & GFRAA in patients over 70 years has not been determined. Clinical correlation is essential. Serum or plasma urea nitroge n measurement (mass/volume)on 11-05-2021 Urea nitrogen [Mass/Vol] 6 mg/dL 7-18 [facility] Work Phone: Thin prep Papanicolaou smear with manual screeningon 11-05-2021 Thin prep Papanicolaou smear with manual screening 8 5-15 [facility] Work Phone: Basophil percentageon 2021 Chloride [Moles/Vol] 96 mmol/L 98-107 [facility] Work Phone: Cholesterol [Mass/Vol] 194 mg/dL <200 [facility] Work Phone: Comment on above: <200 mg/dL Desirable 200-240 mg/dL Borderline >240 mg/dL High Risk Glucose [Mass/Vol] 126 mg/dL 74-106 [facility] Work Phone: Comment on above: Fasting Glucose resu lt greater than or equal to 126 mg/dL suggests DIABETES MELLITUS per A.D.A. criteria. Potassium [Moles/Vol] 4.3 mmol/L 3.5-5.1 [facility] Work Phone: Sodium [Moles/Vol] 131 mmol/L 136-145 [facility] Work Phone: Triglyceride [Mass/Vol] 107 mg/dL <199 [facility] Work Phone: Comment on above: The drugs N-Acetylcy steine and Metamizole may falsely depress this assay.Serum Triglycerides Reference Interval Normal <150 mg/dL Borderline high 150 - 199 mg/dL High 200 - 499 mg/dL Very High > or = 500 mg/dL Laboratory - Chemistry and C hemistry - challengeon 08-21-2021 CO2 [Moles/Vol] 28.0 mmol/L 21.0-32.0 [facility] Work Phone: Urea nitrogen/Creatinine [Mass ratio] 16.6 mg/mg 10-20 [facility] Work Phone: No Panel Informationon 08-21 Estimated GFR (MDRD) Amer 130 mL/min >60 [facility] Work Phone: Comment on above: GFR Calc Estimated GFR (MDRD) Non-Af Amer 108 mL/min >60 [facility] Work Phone: Comment on above: Non- GFR Calc Prostate Specific Antigen Screen 0.44 ng/mL 0.00-4.00 [facility] Work Phone: Comment on above: This test was perfor med using the TPSA assay method for the[employer] chemistry system. Values obtained with differentassay methods cannot be used interchangably.When changing PSA assays in the course of monitoring apatient, additional sequential testing should be carriedout to confirm baseline values. Vitamin D 25-Hydroxy 27.3 ng/mL [facility] Work Phone: Comment on above: Vitamin D 25(OH) Sta tus Range Deficiency <20 ng/mL (50nmol/L) Insufficiency 20 - 30 ng/mL (50 - 75 nmol/L) Sufficiency 30 - 100 ng/mL (75 - 250 nmol/L) Toxicity >100 ng/mL (>250 nmol/L) Serum or plasma calcium nimo urement (mass/volume)on 08-21-2021 Calcium [Mass/Vol] 9.3 mg/dL 8.5-10.1 [facility] Work Phone: Serum or plasma cholesterol in HDL measurement (mass/volume)on 08-21-2021 Cholesterol in HDL [Mass/Vol] 80 mg/dL >40 [facility] Work Phone: Comment on above: The drugs N-Acetylcy steine and Metamizole may falsely depress this assay. Reference Range HDL <40 mg/dL Low HDL Cholesterol HDL >or= 60 mg/dL High HDL Cholesterol Serum or plasma cholesterol in VLDL measurement (mass/volume)on 08-21-2021 Cholesterol in VLDL [Mass/Vol] 21 mg/dL 5-40 [facility] Work Phone: Serum or plasma creatinine m easurement (mass/volume)on 08-21-2021 Creatinine [Mass/Vol] 0.78 mg/dL 0.70-1.30 [facility] Work Phone: Comment on above: The validity of the calculated GFR & GFRAA in patients over 70 years has not been determined. Clinical correlation is essential. Serum or plasma low density lipoprotein (LDL) cholesterol measurement (mass/volume)on 08-21-2021 Cholesterol in LDL [Mass/Vol] 93 mg/dL 0-130 [facility] Work Phone: Serum or plasma urea nitroge n measurement (mass/volume)on 08-21-2021 Urea nitrogen [Mass/Vol] 13 mg/dL 7-18 [facility] Work Phone: Thin prep Papanicolaou smear with manual screeningon 08-21-2021 Thin prep Papanicolaou smear with manual screening 7 5-15 [facility] Work Phone: Bronchoalveolar lavage cultu re with Gram stain Respiratory Culture Haemophilus influenzae [facility] Work Phone: Respiratory Culture Streptococcus pneumoniae [facility] Work Phone: Gram stain for investigation of transfusion reaction Microscopic observation Gram stain Nom (Unsp spec) [facility] Work Phone: Vital Signs Date Time Vital Sign Value Performing Clinician Faci lity 12-06-2024 08:06-0400 Body mass index (BMI) [Ratio] 20.9 kg/m2 Dr. Xavi Fortune MD Work Phone: [facility] 12-06-2024 08:06-0400 Body temperature 97.4 [degF] Dr. Xavi Fortune MD Work Phone: [facility] 12-06-2024 08:06-0400 Body weight 60.[address] Xavi Fortune MD Work Phone: [facility] 12-06-2024 08:06-0400 Diastolic blood pressure 80 mm[Hg] Dr. Xavi Fortune MD Work Phone: [phone])011-561054 [place] [address] 12-06-2024 08:06-0400 Heart rate 83 /min Dr. Xavi Fortune MD Work Phone: [phone])181-904807 [place] [address] 12-06-2024 08:06-0400 Respiratory rate 18 /min Dr. Xavi Fortune MD Work Phone: [phone])978-444307 [place] [address] 12-06-2024 08:06-0400 SaO2% (BldA) [Mass fraction] 95 % Dr. Xavi Fortune MD Work Phone: [facility] 12-06-2024 08:06-0400 Systolic blood pressure 129 mm[Hg] Dr. Xavi Fortune MD Work Phone: 4(536)390-072207 [place] [address] 11-25-2024 08:01-0400 Body mass index (BMI) [Ratio] 20.8 kg/m2 Dr. Xavi Fortune MD Work Phone: 5([phone])493-905854 [place] [address] 11-25-2024 08:01-0400 Body weight 60.[address] Xavi Fortune MD Work Phone: [phone])965-615754 [place] [address] 11-25-2024 08:01-0400 Diastolic blood pressure 80 mm[Hg] Dr. Xavi Fortune MD Work Phone: 8(274)628-219754 [place] [address] 11-25-2024 08:01-0400 Heart rate 65 /min Dr. Xavi Fortune MD Work Phone: [facility] 11-25-2024 08:01-0400 Respiratory rate 16 /min Dr. Xavi Fortune MD Work Phone: 6(019)730-858154 [place] [address] 11-25-2024 08:01-0400 SaO2% (BldA) [Mass fraction] 96 % Dr. Xavi Fortune MD Work Phone: 0(574)[phone] [place] [address] 11-25-2024 08:01-0400 Systolic blood pressure 127 mm[Hg] Dr. Xavi Fortune MD Work Phone: 5(804)480-812907 [place] [address] 10-13-2024 01:03-0400 Body temperature 98 [degF] Dr. Xavi Fortune MD Work Phone: [phone])627-039207 [place] [address] 10-13-2024 01:03-0400 Diastolic blood pressure 82 mm[Hg] Dr. Xavi Fortune MD Work Phone: 7(046)346-720507 [place] [address] 10-13-2024 01:03-0400 Heart rate 79 /min Dr. Xavi Fortune MD Work Phone: 4([phone])271-205607 [place] [address] 10-13-2024 01:03-0400 Respiratory rate 18 /min Dr. Xavi Fortune MD Work Phone: 3(406)108-091707 [place] [address] 10-13-2024 01:03-0400 SaO2% (BldA) [Mass fraction] 98 % Dr. Xavi Fortune MD Work Phone: 8(254)190-246507 [place] [address] 10-13-2024 01:03-0400 Systolic blood pressure 120 mm[Hg] Dr. Xavi Fortune MD Work Phone: 9(680)653-825207 [place] [address] 10-12-2024 20:27-0400 Body height 170.[address] Xavi Fortune MD Work Phone: 7(211)471-039207 [place] [address] 10-12-2024 20:27-0400 Body mass index (BMI) [Ratio] 20.4 kg/m2 Dr. Xavi Fortune MD Work Phone: 2(967)979-087007 [place] [address] 10-12-2024 20:27-0400 Body weight 59.[address] Xavi Fortune MD Work Phone: [phone](656)679-003407 [place] [address] 09-22-2024 10:01-0400 Body temperature 98.6 [degF] Dr. Xavi Fortune MD Work Phone: [facility] 09-22-2024 10:01-0400 Diastolic blood pressure 80 mm[Hg] Dr. Xavi Fortune MD Work Phone: [facility] 09-22-2024 10:01-0400 Heart rate 95 /min Dr. Xavi Fortune MD Work Phone: [facility] 09-22-2024 10:01-0400 Respiratory rate 18 /min Dr. Xavi Fortune MD Work Phone: [facility] 09-22-2024 10:01-0400 SaO2% (BldA) [Mass fraction] 96 % Dr. Xavi Fortune MD Work Phone: 8(978)962-001654 [place] [address] 09-22-2024 10:01-0400 Systolic blood pressure 148 mm[Hg] Dr. Xavi Fortune MD Work Phone: [facility] 09-22-2024 09:35-0400 Body temperature 99.5 [degF] Dr. Xavi Fortune MD Work Phone: [facility] 09-22-2024 09:35-0400 Diastolic blood pressure 75 mm[Hg] Dr. Xavi Fortune MD Work Phone: [facility] 09-22-2024 09:35-0400 Heart rate 98 /min Dr. Xavi Fortune MD Work Phone: [facility] 09-22-2024 09:35-0400 Respiratory rate 18 /min Dr. Xavi Fortune MD Work Phone: [facility] 09-22-2024 09:35-0400 SaO2% (BldA) [Mass fraction] 92 % Dr. Xavi Fortune MD Work Phone: [facility] 09-22-2024 09:35-0400 Systolic blood pressure 138 mm[Hg] Dr. Xavi Fortune MD Work Phone: [facility] 09-22-2024 08:02-0400 Body height 170.[address] Xavi Fortune MD Work Phone: [facility] 09-22-2024 08:02-0400 Body mass index (BMI) [Ratio] 20.7 kg/m2 Dr. Xavi Fortune MD Work Phone: 4(274)300-769654 [place] [address] 09-22-2024 08:02-0400 Body weight 60.[address] Xavi Fortune MD Work Phone: 7(466)[phone] [place] [address] 08-31-2024 09:37-0400 Body mass index (BMI) [Ratio] 20.3 kg/m2 Dr. Xavi Fortune MD Work Phone: 6(480)461-506907 [place] [address] 08-31-2024 09:37-0400 Body temperature 97.8 [degF] Dr. Xavi Fortune MD Work Phone: 1(224)005-882207 [place] [address] 08-31-2024 09:37-0400 Body weight 58.[address] Xavi Fortune MD Work Phone: 4(109)492-569707 [place] [address] 08-31-2024 09:37-0400 Diastolic blood pressure 76 mm[Hg] Dr. Xavi Fortune MD Work Phone: 9(278)451-979154 [place] [address] 08-31-2024 09:37-0400 Heart rate 86 /min Dr. Xavi Fortune MD Work Phone: 2([phone])381-381807 [place] [address] 08-31-2024 09:37-0400 Respiratory rate 18 /min Dr. Xavi Fortune MD Work Phone: 9(999)468-494507 [place] [address] 08-31-2024 09:37-0400 SaO2% (BldA) [Mass fraction] 96 % Dr. Xavi Fortune MD Work Phone: [phone])840-537607 [place] [address] 08-31-2024 09:37-0400 Systolic blood pressure 125 mm[Hg] Dr. Xavi Fortune MD Work Phone: 8(827)796-761107 [place] [address] 07-10-2024 15:50-0400 Heart rate 100 /min Dr. Xavi Fortune MD Work Phone: 2(311)022-838954 [place] [address] 07-10-2024 15:50-0400 Respiratory rate 24 /min Dr. Xavi Fortune MD Work Phone: 0(440)414-060507 [place] [address] 07-10-2024 14:12-0400 Body temperature 98.5 [degF] Dr. Xavi Fortune MD Work Phone: 4(475)119-787307 [place] [address] 07-10-2024 14:12-0400 Diastolic blood pressure 82 mm[Hg] Dr. Xavi Fortune MD Work Phone: 4(579)317-345407 [place] [address] 07-10-2024 14:12-0400 Heart rate 84 /min Dr. Xavi Fortune MD Work Phone: 8(459)424-888307 [place] [address] 07-10-2024 14:12-0400 Respiratory rate 18 /min Dr. Xavi Fortune MD Work Phone: 6(461)548-644407 [place] [address] 07-10-2024 14:12-0400 SaO2% (BldA) [Mass fraction] 96 % Dr. Xavi Fortune MD Work Phone: 1(291)208-960807 [place] [address] 07-10-2024 14:12-0400 Systolic blood pressure 132 mm[Hg] Dr. Xavi Fortune MD Work Phone: 6(636)115-905407 [place] [address] 07-10-2024 13:33-0400 Body height 170.[address] Xavi Fortune MD Work Phone: 0(032)728-345407 [place] [address] 07-10-2024 13:33-0400 Body weight [address] Xavi Fortune MD Work Phone: 8(571)364-561107 [place] [address] 07-10-2024 10:22-0400 Inhaled oxygen flow rate 2 L/min Dr. Xavi Fortune MD Work Phone: 9(878)783-161407 [place] [address] 07-10-2024 04:26-0400 Body mass index (BMI) [Ratio] 20 kg/m2 Dr. Xavi Fortune MD Work Phone: 9(476)849-847207 [place] [address] 07-10-2024 04:00-0400 Body temperature 97.8 [degF] Dr. Xavi Fortune MD Work Phone: [facility] 07-10-2024 04:00-0400 Diastolic blood pressure 77 mm[Hg] Dr. Xavi Fortune MD Work Phone: [facility] 07-10-2024 04:00-0400 Heart rate 99 /min Dr. Xavi Fortune MD Work Phone: [facility] 07-10-2024 04:00-0400 Respiratory rate 14 /min Dr. Xavi Fortune MD Work Phone: [facility] 07-10-2024 04:00-0400 SaO2% (BldA) [Mass fraction] 95 % Dr. Xavi Fortune MD Work Phone: [facility] 07-10-2024 04:00-0400 Systolic blood pressure 130 mm[Hg] Dr. Xavi Fortune MD Work Phone: [facility] 07-10-2024 01:08-0400 Body height 177.[address] Xavi Fortune MD Work Phone: [facility] 07-10-2024 01:08-0400 Body mass index (BMI) [Ratio] 19.4 kg/m2 Dr. Xavi Fortune MD Work Phone: [facility] 07-10-2024 01:08-0400 Body weight 61.[address] Xavi Fortune MD Work Phone: [facility] 06-09-2024 12:17-0400 Body temperature 98.49 [degF] Joseline Marroquin RN Work Phone: [facility] 06-09-2024 12:17-0400 Diastolic blood pressure 64 mm[Hg] Joseline Marroquin RN Work Phone: [facility] 06-09-2024 12:17-0400 Heart rate 76 /min Joseline Marroquin RN Work Phone: [facility] 06-09-2024 12:17-0400 Respiratory rate 20 /min Joseline Most RN Work Phone: [facility] 06-09-2024 12:17-0400 SaO2% (BldA) [Mass fraction] 98 % Joseline Most RN Work Phone: [facility] 06-09-2024 12:17-0400 Systolic blood pressure 108 mm[Hg] Joseline Most RN Work Phone: [facility] 06-02-2024 14:17-0400 Body mass index (BMI) [Ratio] 18.02 kg/m2 Joseline Most RN Work Phone: [facility] 06-02-2024 14:17-0400 Body temperature 98.29 [degF] Joseline Most RN Work Phone: [facility] 06-02-2024 14:17-0400 Body weight 55.34 kg Joseline Most RN Work Phone: [facility] 06-02-2024 14:17-0400 Diastolic blood pressure 64 mm[Hg] Joseline Most RN Work Phone: [facility] 06-02-2024 14:17-0400 Heart rate 96 /min Joseline Most RN Work Phone: [facility] 06-02-2024 14:17-0400 Respiratory rate 16 /min Joseline Most RN Work Phone: [facility] 06-02-2024 14:17-0400 SaO2% (BldA) [Mass fraction] 98 % Joseline Most RN Work Phone: [facility] 06-02-2024 14:17-0400 Systolic blood pressure 112 mm[Hg] Joseline Most RN Work Phone: [facility] 05-31-2024 08:16-0400 Body mass index (BMI) [Ratio] 17 kg/m2 Dr. Xavi Fortune MD Work Phone: [facility] 05-31-2024 08:16-0400 Body temperature 97.4 [degF] Dr. Xavi Fortune MD Work Phone: [facility] 05-31-2024 08:16-0400 Body weight 53.[address] Xavi Fortune MD Work Phone: [facility] 05-31-2024 08:16-0400 Diastolic blood pressure 67 mm[Hg] Dr. Xavi Fortune MD Work Phone: [facility] 05-31-2024 08:16-0400 Heart rate 84 /min Dr. Xavi Fortune MD Work Phone: [facility] 05-31-2024 08:16-0400 Respiratory rate 18 /min Dr. Xavi Fortune MD Work Phone: [facility] 05-31-2024 08:16-0400 SaO2% (BldA) [Mass fraction] 96 % Dr. Xavi Fortune MD Work Phone: [facility] 05-31-2024 08:16-0400 Systolic blood pressure 101 mm[Hg] Dr. Xavi Fortune MD Work Phone: [facility] 05-28-2024 14:05-0400 Heart rate 88 /min Woody Knupp PT Work Phone: [facility] 05-28-2024 14:05-0400 SaO2% (BldA) [Mass fraction] 95 % Woody Knupp PT Work Phone: [facility] 05-28-2024 12:59-0400 Body temperature 97.39 [degF] Woody Knupp PT Work Phone: [facility] 05-28-2024 12:59-0400 Diastolic blood pressure 70 mm[Hg] Woody Knupp PT Work Phone: [facility] 05-28-2024 12:59-0400 Respiratory rate 18 /min Woody Knupp PT Work Phone: [facility] 05-28-2024 12:59-0400 Systolic blood pressure 122 mm[Hg] Woody Machucajoyce PT Work Phone: [facility] 05-27-2024 15:42-0400 Body mass index (BMI) [Ratio] 17.87 kg/m2 Joselinemarlena Marroquin RN Work Phone: [facility] 05-27-2024 15:42-0400 Body temperature 98.1 [degF] Joseline Most RN Work Phone: [facility] 05-27-2024 15:42-0400 Body weight 54.88 kg Joseline Most RN Work Phone: [facility] 05-27-2024 15:42-0400 Diastolic blood pressure 74 mm[Hg] Joseline Most RN Work Phone: [facility] 05-27-2024 15:42-0400 Heart rate 84 /min Joseline Most RN Work Phone: [facility] 05-27-2024 15:42-0400 Respiratory rate 20 /min Joseline Most RN Work Phone: [facility] 05-27-2024 15:42-0400 SaO2% (BldA) [Mass fraction] 98 % Joseline Most RN Work Phone: [facility] 05-27-2024 15:42-0400 Systolic blood pressure 104 mm[Hg] Joseline Most RN Work Phone: [facility] 05-26-2024 13:22-0400 Body height 177.[address] Xavi Fortune MD Work Phone: [facility] 05-26-2024 13:22-0400 Body mass index (BMI) [Ratio] 17.3 kg/m2 Dr. Xavi Fortune MD Work Phone: [facility] 05-26-2024 13:22-0400 Body weight 54.[address] Xavi Fortune MD Work Phone: [facility] 05-26-2024 13:22-0400 Diastolic blood pressure 61 mm[Hg] Dr. Xavi Fortune MD Work Phone: [facility] 05-26-2024 13:22-0400 Heart rate 92 /min Dr. Xavi Fortune MD Work Phone: [facility] 05-26-2024 13:22-0400 Respiratory rate 18 /min Dr. Xavi Fortune MD Work Phone: [facility] 05-26-2024 13:22-0400 SaO2% (BldA) [Mass fraction] 95 % Dr. Xavi Fortune MD Work Phone: [facility] 05-26-2024 13:22-0400 Systolic blood pressure 93 mm[Hg] Dr. Xavi Fortune MD Work Phone: [facility] 05-21-2024 13:50-0400 Diastolic blood pressure 70 mm[Hg] Woody Knupp PT Work Phone: [facility] 05-21-2024 13:50-0400 Heart rate 130 /min Woody Knupp PT Work Phone: [facility] 05-21-2024 13:50-0400 Respiratory rate 18 /min Woody Knupp PT Work Phone: [facility] 05-21-2024 13:50-0400 SaO2% (BldA) [Mass fraction] 98 % Woody Knupp PT Work Phone: [facility] 05-21-2024 13:50-0400 Systolic blood pressure 108 mm[Hg] Woody Knupp PT Work Phone: [facility] 05-21-2024 13:39-0400 Body temperature 97.39 [degF] Woody Knupp PT Work Phone: [facility] 05-19-2024 15:32-0400 Body temperature 98.1 [degF] Joseline Marroquin RN Work Phone: [facility] 05-19-2024 15:32-0400 Diastolic blood pressure 70 mm[Hg] Joseline Marroquin RN Work Phone: [facility] 05-19-2024 15:32-0400 Heart rate 80 /min Joseline Most RN Work Phone: [facility] 05-19-2024 15:32-0400 Respiratory rate 20 /min Joseline Most RN Work Phone: [facility] 05-19-2024 15:32-0400 SaO2% (BldA) [Mass fraction] 98 % Joseline Most RN Work Phone: [facility] 05-19-2024 15:32-0400 Systolic blood pressure 104 mm[Hg] Joseline Most RN Work Phone: [facility] 05-14-2024 14:15-0400 Body temperature 97.39 [degF] Woody Knupp PT Work Phone: [facility] 05-14-2024 14:15-0400 Diastolic blood pressure 70 mm[Hg] Woody Knupp PT Work Phone: [facility] 05-14-2024 14:15-0400 Heart rate 89 /min Woody Knupp PT Work Phone: [facility] 05-14-2024 14:15-0400 Respiratory rate 18 /min Woody Knupp PT Work Phone: [facility] 05-14-2024 14:15-0400 SaO2% (BldA) [Mass fraction] 98 % Woody Knupp PT Work Phone: [facility] 05-14-2024 14:15-0400 Systolic blood pressure 104 mm[Hg] Woody Knupp PT Work Phone: [facility] 05-12-2024 15:49-0400 Body temperature 98.6 [degF] Joseline Most RN Work Phone: [facility] 05-12-2024 15:49-0400 Diastolic blood pressure 76 mm[Hg] Joseline Most RN Work Phone: [facility] 05-12-2024 15:49-0400 Heart rate 88 /min Joseline Marroquin RN Work Phone: [facility] 05-12-2024 15:49-0400 Respiratory rate 20 /min Joselinemarlena Marroquin RN Work Phone: [facility] 05-12-2024 15:49-0400 SaO2% (BldA) [Mass fraction] 98 % Joselinemarlena Marroquin RN Work Phone: [facility] 05-12-2024 15:49-0400 Systolic blood pressure 122 mm[Hg] Joselinemarlena Marroquin RN Work Phone: [facility] 05-07-2024 14:18-0400 Diastolic blood pressure 60 mm[Hg] Woody Knupp PT Work Phone: [facility] 05-07-2024 14:18-0400 Heart rate 117 /min Woody Knupp PT Work Phone: [facility] 05-07-2024 14:18-0400 Respiratory rate 18 /min Woody Knupp PT Work Phone: [facility] 05-07-2024 14:18-0400 SaO2% (BldA) [Mass fraction] 97 % Woody Knupp PT Work Phone: [facility] 05-07-2024 14:18-0400 Systolic blood pressure 98 mm[Hg] Woody Knupp PT Work Phone: [facility] 05-07-2024 13:59-0400 Body temperature 97.39 [degF] Woody Knupp PT Work Phone: [facility] 05-06-2024 01:00-0400 Body temperature 98.1 [degF] Dr. Xavi Fortune MD Work Phone: [facility] 05-06-2024 01:00-0400 Diastolic blood pressure 74 mm[Hg] Dr. Xvai Fortune MD Work Phone: [facility] 05-06-2024 01:00-0400 Heart rate 98 /min Dr. Xavi Fortune MD Work Phone: [facility] 05-06-2024 01:00-0400 Inhaled oxygen flow rate 2 L/min Dr. Xavi Fortune MD Work Phone: [facility] 05-06-2024 01:00-0400 SaO2% (BldA) [Mass fraction] 98 % Dr. Xavi Fortune MD Work Phone: [facility] 05-06-2024 01:00-0400 Systolic blood pressure 123 mm[Hg] Dr. Xavi Fortune MD Work Phone: [facility] 05-05-2024 22:19-0400 Body mass index (BMI) [Ratio] 18.5 kg/m2 Dr. Xavi Fortune MD Work Phone: [facility] 05-05-2024 22:19-0400 Body weight 58.[address] Xavi Fortune MD Work Phone: [facility] 05-05-2024 17:24-0400 Body temperature 99.5 [degF] Mel Hines RN Work Phone: [facility] 05-05-2024 17:24-0400 Diastolic blood pressure 70 mm[Hg] Mel Hines RN Work Phone: [facility] 05-05-2024 17:24-0400 Heart rate 107 /min Mel Hines RN Work Phone: [facility] 05-05-2024 17:24-0400 Respiratory rate 18 /min Mel Hines RN Work Phone: [facility] 05-05-2024 17:24-0400 SaO2% (BldA) [Mass fraction] 96 % Mel Hines RN Work Phone: [facility] 05-05-2024 17:24-0400 Systolic blood pressure 114 mm[Hg] Mel Hines RN Work Phone: [facility] 05-03-2024 08:56-0400 Body mass index (BMI) [Ratio] 19.3 kg/m2 Dr. Xavi Fortune MD Work Phone: [facility] 05-03-2024 08:56-0400 Body temperature 97.4 [degF] Dr. Xavi Fortune MD Work Phone: [facility] 05-03-2024 08:56-0400 Body weight 61.[address] Xavi Fortune MD Work Phone: [facility] 05-03-2024 08:56-0400 Diastolic blood pressure 61 mm[Hg] Dr. Xavi Fortune MD Work Phone: [facility] 05-03-2024 08:56-0400 Heart rate 123 /min Dr. Xavi Fortune MD Work Phone: [facility] 05-03-2024 08:56-0400 Inhaled oxygen flow rate 2 L/min Dr. Xavi Fortune MD Work Phone: [facility] 05-03-2024 08:56-0400 Respiratory rate 20 /min Dr. Xavi Fortune MD Work Phone: [facility] 05-03-2024 08:56-0400 SaO2% (BldA) [Mass fraction] 96 % Dr. Xavi Fortune MD Work Phone: [facility] 05-03-2024 08:56-0400 Systolic blood pressure 87 mm[Hg] Dr. Xavi Fortune MD Work Phone: [facility] 04-30-2024 14:35-0500 Diastolic blood pressure 63 mm[Hg] Cinthya Poole APPRENTICE INSTRUMENT TECHNICIAN Work Phone: [facility] 04-30-2024 14:35-0500 Heart rate 85 /min Cinthya Poole APPRENTICE INSTRUMENT TECHNICIAN Work Phone: [facility] 04-30-2024 14:35-0500 SaO2% (BldA) [Mass fraction] 99 % Cinthya Poole APPRENTICE INSTRUMENT TECHNICIAN Work Phone: [facility] 04-30-2024 14:35-0500 Systolic blood pressure 94 mm[Hg] Cinthya Poole APPRENTICE INSTRUMENT TECHNICIAN Work Phone: [facility] 04-30-2024 14:12-0500 Body temperature 98.01 [degF] Cinthya Barreranings APPRENTICE INSTRUMENT TECHNICIAN Work Phone: [facility] 04-29-2024 13:46-0500 Body temperature 98.4 [degF] Zo Montenegro RN Work Phone: [facility] 04-29-2024 13:46-0500 Diastolic blood pressure 60 mm[Hg] Zo Montenegro RN Work Phone: [facility] 04-29-2024 13:46-0500 Heart rate 92 /min Zo Montenegro RN Work Phone: [facility] 04-29-2024 13:46-0500 Respiratory rate 18 /min Zo Montenegro RN Work Phone: [facility] 04-29-2024 13:46-0500 SaO2% (BldA) [Mass fraction] 98 % Zo Montenegro RN Work Phone: [facility] 04-29-2024 13:46-0500 Systolic blood pressure 122 mm[Hg] Zo Montenegro RN Work Phone: [facility] 04-23-2024 13:57-0500 Body temperature 98.1 [degF] Joseline Marroquin RN Work Phone: [facility] 04-23-2024 13:57-0500 Diastolic blood pressure 58 mm[Hg] Joseline Marroquin RN Work Phone: [facility] 04-23-2024 13:57-0500 Heart rate 84 /min Joseline Marroquin RN Work Phone: [facility] 04-23-2024 13:57-0500 Respiratory rate 20 /min Joseline Marroquin RN Work Phone: [facility] 04-23-2024 13:57-0500 SaO2% (BldA) [Mass fraction] 98 % Joseline Marroquin RN Work Phone: [facility] 04-23-2024 13:57-0500 Systolic blood pressure 104 mm[Hg] Joseline Marroquin RN Work Phone: [facility] 04-22-2024 17:15-0500 Diastolic blood pressure 74 mm[Hg] Woody Knupp PT Work Phone: [facility] 04-22-2024 17:15-0500 Heart rate 101 /min Woody Knupp PT Work Phone: [facility] 04-22-2024 17:15-0500 Respiratory rate 18 /min Woody Knupp PT Work Phone: [facility] 04-22-2024 17:15-0500 SaO2% (BldA) [Mass fraction] 97 % Woody Knupp PT Work Phone: [facility] 04-22-2024 17:15-0500 Systolic blood pressure 124 mm[Hg] Woody Knupp PT Work Phone: [facility] 04-22-2024 16:39-0500 Body temperature 97.3 [degF] Woody Knupp PT Work Phone: [facility] 04-20-2024 12:20-0500 Body temperature 98.4 [degF] Moraima Esquivel RN Work Phone: [facility] 04-20-2024 12:20-0500 Diastolic blood pressure 64 mm[Hg] Moraima Esquivel RN Work Phone: [facility] 04-20-2024 12:20-0500 Heart rate 88 /min Moraima Esquivel RN Work Phone: [facility] 04-20-2024 12:20-0500 Respiratory rate 16 /min Moraima Esquivel RN Work Phone: [facility] 04-20-2024 12:20-0500 SaO2% (BldA) [Mass fraction] 98 % Moraima Esquivel RN Work Phone: [facility] 04-20-2024 12:20-0500 Systolic blood pressure 102 mm[Hg] Moraima Esquivel RN Work Phone: [facility] 04-17-2024 12:02-0500 Heart rate 94 /min Doyle Wesley OTR/L Work Phone: [facility] 04-17-2024 12:02-0500 SaO2% (BldA) [Mass fraction] 98 % Doyle Wesley OTR/L Work Phone: [facility] 04-17-2024 11:50-0500 Body temperature 98.29 [degF] Doyle Wesley OTR/L Work Phone: [facility] 04-17-2024 11:50-0500 Diastolic blood pressure 66 mm[Hg] Doyle Wesley OTR/L Work Phone: [facility] 04-17-2024 11:50-0500 Respiratory rate 17 /min Doyle Wesley OTR/L Work Phone: [facility] 04-17-2024 11:50-0500 Systolic blood pressure 100 mm[Hg] Doyle Wesley OTR/L Work Phone: [facility] 04-16-2024 14:42-0500 Body temperature 99.19 [degF] Joseline Marroquin RN Work Phone: [facility] 04-16-2024 14:42-0500 Diastolic blood pressure 76 mm[Hg] Joseline Most RN Work Phone: [facility] 04-16-2024 14:42-0500 Heart rate 92 /min Joseline Most RN Work Phone: [facility] 04-16-2024 14:42-0500 Respiratory rate 20 /min Joseline Most RN Work Phone: [facility] 04-16-2024 14:42-0500 SaO2% (BldA) [Mass fraction] 97 % Joseline Most RN Work Phone: [facility] 04-16-2024 14:42-0500 Systolic blood pressure 118 mm[Hg] Joseline Most RN Work Phone: [facility] 04-14-2024 12:55-0500 Body height 175.3 cm Joseline Most RN Work Phone: [facility] 04-14-2024 12:55-0500 Body mass index (BMI) [Ratio] 21 kg/m2 Joseline Most RN Work Phone: [facility] 04-14-2024 12:55-0500 Body temperature 99.1 [degF] Joseline Most RN Work Phone: [facility] 04-14-2024 12:55-0500 Body weight 64.5 kg Joseline Most RN Work Phone: [facility] 04-14-2024 12:55-0500 Diastolic blood pressure 76 mm[Hg] Joseline Most RN Work Phone: [facility] 04-14-2024 12:55-0500 Heart rate 84 /min Joseline Most RN Work Phone: [facility] 04-14-2024 12:55-0500 Respiratory rate 20 /min Joseline Most RN Work Phone: [facility] 04-14-2024 12:55-0500 SaO2% (BldA) [Mass fraction] 98 % Joseline Most RN Work Phone: [facility] 04-14-2024 12:55-0500 Systolic blood pressure 128 mm[Hg] Joseline Most RN Work Phone: [facility] 04-10-2024 13:00-0500 Body temperature 98.2 [degF] Dr. Xavi Fortune MD Work Phone: [facility] 04-10-2024 13:00-0500 Diastolic blood pressure 90 mm[Hg] Dr. Xavi Fortune MD Work Phone: [facility] 04-10-2024 13:00-0500 Heart rate 103 /min Dr. Xavi Fortune MD Work Phone: [facility] 04-10-2024 13:00-0500 Inhaled oxygen flow rate 2 L/min Dr. Xavi Fortune MD Work Phone: 9(651)336-411054 [place] [address] 04-10-2024 13:00-0500 Respiratory rate 21 /min Dr. Xavi Fortune MD Work Phone: 5(454)775-464907 [place] [address] 04-10-2024 13:00-0500 SaO2% (BldA) [Mass fraction] 97 % Dr. Xavi Fortune MD Work Phone: 7(444)256-443407 [place] [address] 04-10-2024 13:00-0500 Systolic blood pressure 143 mm[Hg] Dr. Xavi Fortune MD Work Phone: 0(206)631-233807 [place] [address] 04-10-2024 05:06-0500 Body mass index (BMI) [Ratio] 20.9 kg/m2 Dr. Xavi Fortune MD Work Phone: 4(401)381-051107 [place] [address] 04-10-2024 05:06-0500 Body weight 66.[address] Xavi Fortune MD Work Phone: 4(268)279-311207 [place] [address] 04-08-2024 14:47-0500 Inhaled oxygen flow rate 2 L/min Dr. Xavi Fortune MD Work Phone: 8(515)279-758507 [place] [address] 04-08-2024 14:42-0500 Body weight 71.[address] Xavi Fortune MD Work Phone: 9(711)709-228707 [place] [address] 04-08-2024 14:39-0500 Body temperature 98.1 [degF] Dr. Xavi Fortune MD Work Phone: 1(108)581-092407 [place] [address] 04-08-2024 14:39-0500 Diastolic blood pressure 90 mm[Hg] Dr. Xavi Fortune MD Work Phone: 4(069)325-245407 [place] [address] 04-08-2024 14:39-0500 Heart rate 113 /min Dr. Xavi Fortune MD Work Phone: 2(684)068-806507 [place] [address] 04-08-2024 14:39-0500 Respiratory rate 18 /min Dr. Xavi Fortune MD Work Phone: [facility] 04-08-2024 14:39-0500 SaO2% (BldA) [Mass fraction] 98 % Dr. Xavi Fortune MD Work Phone: [facility] 04-08-2024 14:39-0500 Systolic blood pressure 138 mm[Hg] Dr. Xavi Fortune MD Work Phone: 7(826)408-869354 [place] [address] 04-08-2024 03:49-0500 Body mass index (BMI) [Ratio] 24 kg/m2 Dr. Xavi Fortune MD Work Phone: 1(749)962-504807 [place] [address] 03-20-2024 18:46-0500 Heart rate 129 /min Dr. Xavi Fortune MD Work Phone: 1(444)480-126107 [place] [address] 03-20-2024 18:46-0500 Respiratory rate 26 /min Dr. Xavi Fortune MD Work Phone: 4(262)309-225507 [place] [address] 03-20-2024 16:30-0500 Body temperature 97.9 [degF] Dr. Xavi Fortune MD Work Phone: 8(503)974-511607 [place] [address] 03-20-2024 16:30-0500 Diastolic blood pressure 89 mm[Hg] Dr. Xavi Fortune MD Work Phone: 7(624)049-132307 [place] [address] 03-20-2024 16:30-0500 Inhaled oxygen flow rate 2 L/min Dr. Xavi Fortune MD Work Phone: 4(885)471-023507 [place] [address] 03-20-2024 16:30-0500 SaO2% (BldA) [Mass fraction] 97 % Dr. Xavi Fortune MD Work Phone: 8(338)174-513407 [place] [address] 03-20-2024 16:30-0500 Systolic blood pressure 157 mm[Hg] Dr. Xavi Fortune MD Work Phone: 9(750)118-854907 [place] [address] 03-19-2024 14:28-0500 Body weight 63.[address] Xavi Fortune MD Work Phone: 2(359)839-912307 [place] [address] 03-15-2024 19:52-0500 Body mass index (BMI) [Ratio] 20.2 kg/m2 Dr. Xavi Fortune MD Work Phone: 7(449)935-436407 [place] [address] 03-02-2024 11:13-0500 Heart rate 88 /min Dr. Xavi Fortune MD Work Phone: 9(152)344-531907 [place] [address] 03-02-2024 11:13-0500 Respiratory rate 20 /min Dr. Xavi Fortune MD Work Phone: 9(254)349-997307 [place] [address] 03-02-2024 09:05-0500 Body temperature 98.1 [degF] Dr. Xavi Fortune MD Work Phone: 6(160)009-925807 [place] [address] 03-02-2024 09:05-0500 Diastolic blood pressure 89 mm[Hg] Dr. Xavi Fortune MD Work Phone: 6(156)195-661407 [place] [address] 03-02-2024 09:05-0500 Inhaled oxygen flow rate 2 L/min Dr. Xavi Fortune MD Work Phone: 5(338)[phone] [place] [address] 03-02-2024 09:05-0500 SaO2% (BldA) [Mass fraction] 95 % Dr. Xavi Fortune MD Work Phone: 1(566)729-875807 [place] [address] 03-02-2024 09:05-0500 Systolic blood pressure 139 mm[Hg] Dr. Xavi Fortune MD Work Phone: 7(287)963-692707 [place] [address] 02-28-2024 16:42-0500 Body mass index (BMI) [Ratio] 20.7 kg/m2 Dr. Xavi Fortune MD Work Phone: 6(102)914-878907 [place] [address] 02-28-2024 16:42-0500 Body weight 65.[address] Xavi Fortune MD Work Phone: 4(481)828-202407 [place] [address] 02-23-2024 12:40-0500 Body weight 68.[address] Xavi Fortune MD Work Phone: 4(255)840-284307 [place] [address] 02-23-2024 12:40-0500 Heart rate 105 /min Dr. Xavi Fortune MD Work Phone: [facility] 02-23-2024 12:40-0500 SaO2% (BldA) [Mass fraction] 96 % Dr. Xavi Fortune MD Work Phone: [facility] 05-26-2023 11:49-0400 Body temperature 97.9 [degF] Dr. Stone Fortune Work Phone: [facility] 05-26-2023 11:49-0400 Diastolic blood pressure 92 mm[Hg] Dr. Stone Fortune Work Phone: 2(208)508-896354 [place] [address] 05-26-2023 11:49-0400 Heart rate 82 /min Dr. Stone Fortune Work Phone: 9(318)032-734554 [place] [address] 05-26-2023 11:49-0400 Respiratory rate 16 /min Dr. Stone Fortune Work Phone: 4(999)123-160754 [place] [address] 05-26-2023 11:49-0400 SaO2% (BldA) [Mass fraction] 100 % Dr. Stone Fortune Work Phone: [facility] 05-26-2023 11:49-0400 Systolic blood pressure 138 mm[Hg] Dr. Stone Fortune Work Phone: [facility] 05-26-2023 08:27-0400 Body height 170.[address] Stone Fortune Work Phone: [facility] 05-26-2023 08:27-0400 Body mass index (BMI) [Ratio] 24.4 kg/m2 Dr. Stone Fortune Work Phone: 6(695)961-454654 [place] [address] 05-26-2023 08:27-0400 Body weight 70.[address] Stone Fortune Work Phone: [facility] 05-01-2023 05:57-0500 Body height 170.[address] Stone Fortune Work Phone: [facility] 05-01-2023 05:57-0500 Body mass index (BMI) [Ratio] 23.9 kg/m2 Dr. Stone Fortune Work Phone: [facility] 05-01-2023 05:57-0500 Body temperature 98.4 [degF] Dr. Stone Fortune Work Phone: [facility] 05-01-2023 05:57-0500 Body weight 69.[address] Stone Fortune Work Phone: [facility] 05-01-2023 05:57-0500 Diastolic blood pressure 80 mm[Hg] Dr. Stone Fortune Work Phone: 3(680)684-417354 [place] [address] 05-01-2023 05:57-0500 Heart rate 92 /min Dr. Stone Fortune Work Phone: 7(585)489-467754 [place] [address] 05-01-2023 05:57-0500 Respiratory rate 18 /min Dr. Stone Fortune Work Phone: [facility] 05-01-2023 05:57-0500 SaO2% (BldA) [Mass fraction] 94 % Dr. Stone Fortune Work Phone: [facility] 05-01-2023 05:57-0500 Systolic blood pressure 147 mm[Hg] Dr. Stone Fortune Work Phone: 5(577)365-223754 [place] [address] 12-23-2022 07:36-0400 Body height 170.[address] Stone Fortune Work Phone: [facility] 12-23-2022 07:36-0400 Body mass index (BMI) [Ratio] 24.7 kg/m2 Dr. Stone Fortune Work Phone: [facility] 12-23-2022 07:36-0400 Body temperature 97.7 [degF] Dr. Stone Fortune Work Phone: [facility] 12-23-2022 07:36-0400 Body weight 71.[address] Stone Fortune Work Phone: [facility] 12-23-2022 07:36-0400 Diastolic blood pressure 81 mm[Hg] Dr. Stone Fortune Work Phone: [facility] 12-23-2022 07:36-0400 Heart rate 90 /min Dr. Stone Fortune Work Phone: [facility] 12-23-2022 07:36-0400 Respiratory rate 16 /min Dr. Stone Fortune Work Phone: [facility] 12-23-2022 07:36-0400 SaO2% (BldA) [Mass fraction] 97 % Dr. Stone Fortune Work Phone: [facility] 12-23-2022 07:36-0400 Systolic blood pressure 145 mm[Hg] Dr. Stone Fortune Work Phone: [facility] 07-03-2022 08:20-0400 Body height 170.[address] Stone Fortune Work Phone: [facility] 07-03-2022 08:20-0400 Body mass index (BMI) [Ratio] 24.5 kg/m2 Dr. Stone Fortune Work Phone: [facility] 07-03-2022 08:20-0400 Body temperature 97.9 [degF] Dr. Stone Fortune Work Phone: [facility] 07-03-2022 08:20-0400 Body weight 71.[address] Stone Fortune Work Phone: [facility] 07-03-2022 08:20-0400 Diastolic blood pressure 80 mm[Hg] Dr. Stone Fortune Work Phone: [facility] 07-03-2022 08:20-0400 Heart rate 93 /min Dr. Stone Fortune Work Phone: [facility] 07-03-2022 08:20-0400 Respiratory rate 18 /min Dr. Stone Fortune Work Phone: [facility] 07-03-2022 08:20-0400 SaO2% (BldA) [Mass fraction] 93 % Dr. Stone Fortune Work Phone: [facility] 07-03-2022 08:20-0400 Systolic blood pressure 139 mm[Hg] Dr. Stone Fortune Work Phone: [facility] 04-02-2022 06:04-0500 Body height 170.[address] Stone Fortune Work Phone: [facility] 04-02-2022 06:04-0500 Body mass index (BMI) [Ratio] 25 kg/m2 Dr. Stone Fortune Work Phone: [facility] 04-02-2022 06:04-0500 Body temperature 98.1 [degF] Dr. Stone Fortune Work Phone: [facility] 04-02-2022 06:04-0500 Body weight 72.[address] Stone Fortune Work Phone: [facility] 04-02-2022 06:04-0500 Diastolic blood pressure 77 mm[Hg] Dr. Stone Fortune Work Phone: [facility] 04-02-2022 06:04-0500 Heart rate 97 /min Dr. Stone Fortune Work Phone: [facility] 04-02-2022 06:04-0500 Respiratory rate 18 /min Dr. Stone Fortune Work Phone: [facility] 04-02-2022 06:04-0500 SaO2% (BldA) [Mass fraction] 97 % Dr. Stone Fortune Work Phone: [facility] 04-02-2022 06:04-0500 Systolic blood pressure 125 mm[Hg] Dr. Stone Fortune Work Phone: [facility] 03-12-2022 07:42-0500 Body height 170.[address] Stone Fortune Work Phone: [facility] 03-12-2022 07:42-0500 Body weight 71.[address] Stone Fortune Work Phone: [facility] 03-12-2022 07:42-0500 Heart rate 105 /min Dr. Stone Fortune Work Phone: [facility] 03-12-2022 07:42-0500 SaO2% (BldA) [Mass fraction] 92 % Dr. Stone Fortune Work Phone: [facility] 02-07-2022 11:05-0500 Body mass index (BMI) [Ratio] 26.8 kg/m2 Dr. Stone Fortune Work Phone: [facility] 02-07-2022 11:05-0500 Body temperature 97.6 [degF] Dr. Stone Fortune Work Phone: [facility] 02-07-2022 11:05-0500 Body weight 73.[address] Stone Fortune Work Phone: [facility] 02-07-2022 11:05-0500 Diastolic blood pressure 86 mm[Hg] Dr. Stone Fortune Work Phone: [facility] 02-07-2022 11:05-0500 Heart rate 96 /min Dr. Stone Fortune Work Phone: [facility] 02-07-2022 11:05-0500 Respiratory rate 18 /min Dr. Stone Fortune Work Phone: [facility] 02-07-2022 11:05-0500 SaO2% (BldA) [Mass fraction] 96 % Dr. Stone Fortune Work Phone: [facility] 02-07-2022 11:05-0500 Systolic blood pressure 140 mm[Hg] Dr. Stone Fortune Work Phone: [facility] 01-03-2022 10:50-0500 Body height 165.[address] Stone Fortune Work Phone: [facility] Work Phone: 01-03-2022 10:44-0500 Body mass index (BMI) [Ratio] 22.8 kg/m2 Dr. Stone Fortune Work Phone: [facility] 01-03-2022 10:44-0500 Body temperature 97.3 [degF] Dr. Stone Fortune Work Phone: [facility] 01-03-2022 10:44-0500 Body weight 72.[address] Stone Fortune Work Phone: [facility] 01-03-2022 10:44-0500 Diastolic blood pressure 93 mm[Hg] Dr. Stone Fortune Work Phone: [facility] 01-03-2022 10:44-0500 Heart rate 81 /min Dr. Stone Fortune Work Phone: [facility] 01-03-2022 10:44-0500 Respiratory rate 18 /min Dr. Stone Fortune Work Phone: [facility] 01-03-2022 10:44-0500 SaO2% (BldA) [Mass fraction] 96 % Dr. Stone Fortune Work Phone: [facility] 01-03-2022 10:44-0500 Systolic blood pressure 155 mm[Hg] Dr. Stone Fortune Work Phone: [facility] 11-07-2021 13:30-0400 Body temperature 97.9 [degF] Dr. Stone Fortune Work Phone: [facility] Work Phone: 11-07-2021 13:30-0400 Diastolic blood pressure 81 mm[Hg] Dr. Stone Fortune Work Phone: [facility] Work Phone: 11-07-2021 13:30-0400 Heart rate 110 /min Dr. Stone Fortune Work Phone: [facility] Work Phone: 11-07-2021 13:30-0400 Respiratory rate 20 /min Dr. Stone Fortune Work Phone: [facility] Work Phone: 11-07-2021 13:30-0400 SaO2% (BldA) [Mass fraction] 96 % Dr. Stone Fortune Work Phone: [facility] Work Phone: 11-07-2021 13:30-0400 Systolic blood pressure 145 mm[Hg] Dr. Stone Fortune Work Phone: [facility] Work Phone: 11-07-2021 10:55-0400 Heart rate 61 /min Dr. Stone Fortune Work Phone: [facility] Work Phone: 11-07-2021 10:55-0400 Respiratory rate 20 /min Dr. Stone Fortune Work Phone: [facility] Work Phone: 11-07-2021 09:17-0400 SaO2% (BldA) [Mass fraction] 93 % Dr. Stone Fortune Work Phone: [facility] Work Phone: 11-07-2021 09:07-0400 Body temperature 98 [degF] Dr. Stone Fortune Work Phone: [facility] Work Phone: 11-07-2021 09:07-0400 Diastolic blood pressure 84 mm[Hg] Dr. Stone Fortune Work Phone: [facility] Work Phone: 11-07-2021 09:07-0400 Systolic blood pressure 147 mm[Hg] Dr. Stone Fortune Work Phone: [facility] Work Phone: 11-07-2021 06:56-0400 Inhaled oxygen flow rate 2 L/min Dr. Stone Fortune Work Phone: [facility] Work Phone: 11-05-2021 16:17-0400 Body height 165.[address] Stone Fortune Work Phone: [facility] Work Phone: 11-05-2021 16:17-0400 Body weight 67.[address] Stone Fortune Work Phone: [facility] Work Phone: 11-05-2021 11:37-0400 Body mass index (BMI) [Ratio] 24.6 kg/m2 Dr. Stone Fortune Work Phone: [facility] Work Phone: 11-05-2021 11:00-0400 Heart rate 94 /min [facility] Work Phone: 11-05-2021 10:51-0400 Body temperature 98.9 [degF] [facility] Work Phone: 11-05-2021 10:51-0400 Diastolic blood pressure 91 mm[Hg] [facility] Work Phone: 11-05-2021 10:51-0400 Inhaled oxygen flow rate 2 L/min [facility] Work Phone: 11-05-2021 10:51-0400 Respiratory rate 16 /min [facility] Work Phone: 11-05-2021 10:51-0400 SaO2% (BldA) [Mass fraction] 93 % [facility] Work Phone: 11-05-2021 10:51-0400 Systolic blood pressure 143 mm[Hg] [facility] Work Phone: 11-05-2021 07:27-0400 Body height 177.8 cm [facility] Work Phone: 11-05-2021 07:27-0400 Body mass index (BMI) [Ratio] 22.2 kg/m2 [facility] Work Phone: 11-05-2021 07:27-0400 Body weight 70.3 kg [facility] Work Phone: 09-24-2021 04:56-0400 Diastolic blood pressure 90 mm[Hg] [facility] Work Phone: 09-24-2021 04:56-0400 Heart rate 80 /min [facility] Work Phone: 09-24-2021 04:56-0400 Respiratory rate 16 /min [facility] Work Phone: 09-24-2021 04:56-0400 SaO2% (BldA) [Mass fraction] 96 % [facility] Work Phone: 09-24-2021 04:56-0400 Systolic blood pressure 153 mm[Hg] [facility] Work Phone: 09-24-2021 03:27-0400 Body height 177.8 cm [facility] Work Phone: 09-24-2021 03:27-0400 Body mass index (BMI) [Ratio] 22.4 kg/m2 [facility] Work Phone: 09-24-2021 03:27-0400 Body temperature 96.9 [degF] [facility] Work Phone: 09-24-2021 03:27-0400 Body weight 70.76 kg [facility] Work Phone: Encounters Encounter Date Encounter Type Care Provider Facility Start: 12-06-2024 End: 12-06-2024 Patient encounter procedure Mikayla Ventura NP-C -[facility] Work Phone: Start: 12-06-2024 End: 12-06-2024 ambulatory Mikayla Ventura LIQUOR DEPARTMENT MANAGER [place] [place] Start: 11-25-2024 End: 11-25-2024 Patient encounter procedure Roberta Do MA -[facility] Work Phone: Start: 11-25-2024 End: 11-25-[address] Xavi Fortune MD Work Phone: -[facility] Start: 10-12-2024 End: 10-13-2024 Emergency department patient visit Dr. Xavi Fortune MD Work Phone: -Emergency Department Work Phone: Start: 09-22-2024 End: 09-22-2024 Patient encounter procedure Mikayla MILLER -[facility] Work Phone: Start: 09-22-2024 End: 09-22-[address] Xavi Fortune MD Work Phone: [facility] Start: 08-31-2024 End: 08-31-2024 Patient encounter procedure Mikayla MILLER -[facility] Work Phone: Start: 08-31-2024 End: 08-31-[address] Xavi Fortune MD Work Phone: [facility] Start: 08-23-2024 End: 08-23-[address] Xavi Fortune MD Work Phone: -Laboratory Start: 08-23-2024 End: 08-23-2024 Patient encounter procedure Walt Friend DO -Laboratory Work Phone: Start: 08-23-2024 End: 08-23-2024 Patient encounter procedure Walt Yue DO -[facility] Work Phone: Start: 08-23-2024 End: 08-23-[address] Xavi Fortune MD Work Phone: [facility] Start: 08-23-2024 End: 08-23-2024 ambulatory Walt Turner Facility:[facility] Start: 08-10-2024 End: 08-10-2024 ambulatory Xavi Fortune Facility:[facility] Start: 08-10-2024 End: 08-10-[address] Xavi Fortune MD -Physical Therapy Work Phone: Start: 07-11-2024 Non-patient / Non-visit Dr. Liz Alvarenga MD -[facility] Work Phone: Start: 07-10-2024 End: 07-10-2024 Evaluation and management of inpatient Dr. Liz Alvarenga MD -Medical Surgical 3 Work Phone: Start: 07-10-2024 Non-patient / Non-visit Dr. Jonah Aguilar MD -[facility] Work Phone: Start: 07-10-2024 End: 07-10-2024 ambulatory Jonah Aguilar Facility:[facility] Start: 07-10-2024 End: 07-10-[address] Xavi Fortune MD Work Phone: [facility] Work Phone: Start: 07-10-2024 End: 07-10-2024 Dr. Jonah Aguilar MD -Medical Surgical 3 Work Phone: Start: 06-30-2024 End: 06-30-[address] Xavi Fortune MD Work Phone: [facility] Work Phone: Start: 06-30-2024 End: 06-30-[address] Xavi Fortune MD -Laboratory [facility] Start: 06-30-2024 End: 06-30-2024 Dr. Xavi Fortune MD -Laboratory, [facility] Start: 06-30-2024 End: 06-30-2024 ambulatory Xavi Fortune Facility:[facility] Start: 06-28-2024 ambulatory Xavi Fortune Faci lity:[facility] Start: 06-10-2024 End: 06-10-[address] Xavi Fortune MD -Outpatient Bone Densitometry Work Phone: Start: 06-10-2024 End: 06-10-2024 Dr. Xavi Fortune MD -Outpatient Bone Densitometry Work Phone: Start: 06-10-2024 End: 06-10-2024 ambulatory Xavi Fortune Facility:[facility] Start: 06-09-2024 End: 06-09-2024 Home visit Joseline Marroquin RN Work Phone: [facility] Comment on above: SN AGENCY DC W VISIT Start: 06-02-2024 End: 06-02-2024 Home visit Joseline Marroquin RN Work Phone: [facility] Comment on above: SN ROUTINE Start: 06-01-2024 End: 06-01-[address] Xavi Fortune MD Work Phone: [facility] Work Phone: Start: 06-01-2024 End: 06-01-[address] Xavi Fortune MD -Radiology [place] Work Phone: Start: 06-01-2024 End: 06-01-2024 Dr. Xavi Fortune MD -Radiology, [place] Work Phone: Start: 05-31-2024 End: 05-31-2024 Patient encounter procedure Mikayla Ventura NP-C -[facility] Work Phone: Start: 05-31-2024 End: 05-31-2024 Mikayla Ventura LIQUOR DEPARTMENT MANAGER-C -[facility] Work Phone: Start: 05-31-2024 End: 06-01-2024 ambulatory Xavi Fortune Facility:[facility] Start: 05-28-2024 End: 05-28-2024 Home visit Woody Armas PT Work Phone: [facility] Comment on above: PT DISC DC W VISIT Start: 05-27-2024 End: 05-27-2024 Patient encounter procedure Mikayla Ventura NP-C -Cat Scan [facility] Work Phone: Start: 05-27-2024 End: 05-27-2024 Mikayla Ventura LIQUOR DEPARTMENT MANAGER-C -Cat Scan, [facility] Work Phone: Start: 05-27-2024 End: 05-27-2024 Home visit Joseline Marroquin RN Work Phone: [facility] Comment on above: SN ROUTINE Start: 05-26-2024 End: 05-26-[address] Francis Asher MD -[facility] Work Phone: Start: 05-26-2024 End: 05-26-2024 Dr. Francis Asher MD -[facility] Work Phone: Start: 05-26-2024 End: 05-27-2024 ambulatory Mikayla Ventura NP Facility:[facility] Start: 05-24-2024 End: 05-24-2024 Patient encounter procedure Walt Turner [facility] Work Phone: Start: 05-24-2024 End: 05-24-2024 Walt Turner [facility] Work Phone: Start: 05-24-2024 End: 05-24-2024 ambulatory Walt Turner [place] [place] Start: 05-21-2024 End: 05-21-2024 Home visit Woody Armas PT Work Phone: [facility] Comment on above: PT ROUTINE Start: 05-19-2024 End: 05-19-2024 Home visit Joseline Marroquin RN Work Phone: [facility] Comment on above: SN ROUTINE Start: 05-14-2024 End: 05-14-2024 Home visit Woody Armas PT Work Phone: [facility] Comment on above: PT ROUTINE Start: 05-12-2024 End: 05-12-2024 Home visit Joseline Marroquin RN Work Phone: [facility] Comment on above: SN ROUTINE Start: 05-10-2024 End: 05-10-2024 Home visit Cally RICHEYW Work Phone: [facility] Comment on above: AUTO OVERHAULER CARE COORDINATIO N Start: 05-07-2024 End: 05-07-2024 Home visit Cally Park TOWER EQUIPMENT INSTALLER Work Phone: [facility] Comment on above: AUTO OVERHAULER CARE COORDINATIO N PT REASSESSMENT Start: 05-05-2024 End: 05-06-2024 Dr. Canelo Larry -Emergency Departmen t Work Phone: Start: 05-05-2024 End: 05-06-2024 Emergency department patient visit Dr. 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 BANK TECHNICIAN Work Phone: [employer] Comment on above: Pain and swelling of right knee (Primary Dx) Start: 05-05-2024 End: 05-05-2024 Telemedicine consultation with patient Marti Martino NET MVC DEVELOPER.BLOOD OR BLOOD BANK TECHNICIAN Work Phone: [facility] Start: 05-05-2024 End: 05-05-2024 Telephone encounter Mel Hines RN Work Phone: [facility] Comment on above: Erroneous encounter- disregard Start: 05-03-2024 End: 05-03-2024 Patient encounter procedure Mikayla Ventura LIQUOR DEPARTMENT MANAGER-C -[facility] Work Phone: Start: 05-03-2024 End: 05-03-2024 Mikayla Ventura LIQUOR DEPARTMENT MANAGER-C -[facility] Work Phone: Start: 05-03-2024 End: 05-03-2024 ambulatory Mikayla Ventura NP [place] [place] Start: 05-03-2024 End: 05-03-2024 ambulatory Ricci Kruse Facility:[facility] Start: 04-30-2024 End: 04-30-2024 Telephone encounter Xavi Fortune MD Work Phone: [facility] Comment on above: Home Care Start: 04-30-2024 End: 04-30-2024 Home visit Cinthya Poole APPRENTICE INSTRUMENT TECHNICIAN Work Phone: [facility] Comment on above: APPRENTICE INSTRUMENT TECHNICIAN ROUTINE Start: 04-29-2024 End: 04-29-2024 Home visit Zo Montenegro RN Work Phone: [facility] Comment on above: SN ROUTINE Start: 04-23-2024 End: 04-23-2024 Home visit Joseline Marroquin RN Work Phone: [facility] Comment on above: SN ROUTINE Start: 04-22-2024 End: 04-22-2024 Home visit Woody Armas PT Work Phone: [facility] Comment on above: PT EVAL Start: 04-20-2024 End: 04-20-2024 Telephone encounter Moraima Esquivel RN Work Phone: [facility] Comment on above: Erroneous encounter- disregard Start: 04-20-2024 End: 04-20-2024 Home visit Moraima Esquivel RN Work Phone: [facility] Comment on above: SN ROUTINE Start: 04-19-2024 End: 04-19-2024 Telephone encounter Xavi Fortune MD Work Phone: [facility] Comment on above: Home Care (DELAY IN SERVICE) Start: 04-17-2024 End: 04-17-2024 Home visit Doyle Olson OTR/L Work Phone: [facility] Comment on above: OT EVAL Start: 04-16-2024 End: 04-16-2024 Home visit Cally RICHEYW Work Phone: [facility] Comment on above: AUTO OVERHAULER CARE COORDINATIO N SN ROUTINE Start: 04-16-2024 End: 04-16-2024 Telephone encounter Nichole Sosa [facility] Comment on above: Home Care (OT Eval ) Erroneous encounter- disregard Start: 04-14-2024 End: 04-14-2024 Home visit Joseline Marroquin RN Work Phone: [facility] Comment on above: SN SOC Start: 04-12-2024 End: 04-12-2024 Telephone encounter Chelsea Xie LITHOGRAPH PRESS FEEDER Work Phone: [facility] Comment on above: Home Care (MD den russell) Home Care (Confirmat ion Call ) Start: 04-10-2024 Dr. Neil Augustin [facility] Work Phone: Start: 04-09-2024 Dr. aMrya Zamarripa MD -[facility] Start: 04-09-2024 ambulatory Marya Zamarripa Fa cility:[facility] Start: 04-09-2024 End: 04-10-2024 [facility] Start: 04-09-2024 End: 04-10-2024 Dr. Neil Augustin DO -Intensive Care Unit Work Phone: Start: 04-08-2024 Dr. Suellen lorenz MD -[facility] Start: 04-08-2024 Dr. Neil Augustin [facility] Work Phone: Start: 04-07-2024 Tiffanie Deluna PA-C -[facility] Start: 04-06-2024 Dr. Neil Augustin [facility] Work Phone: Start: 04-06-2024 Tiffanie Deluna PA-C -[facility] Start: 04-05-2024 Dr. Neil Augustin [facility] Work Phone: Start: 04-05-2024 Tiffanie Deluna PA-C -[facility] Start: 04-04-2024 Dr. Liz rdz MD -[facility] Work Phone: Start: 04-03-2024 Dr. Liz rdz MD -[facility] Work Phone: Start: 04-03-2024 Dr. Francis Asrhaf MD [facility] Start: 04-02-2024 Dr. Liz rdz MD -[facility] Work Phone: Start: 04-02-2024 Dr. Jordan Ortega MD [facility] Start: 04-01-2024 Dr. Liz rdz MD -[facility] Work Phone: Start: 04-01-2024 Dr. Jordan Ortega MD [facility] Start: 03-31-2024 Dr. Jordan Ortega MD [facility] Start: 03-31-2024 Dr. Liz rdz MD -[facility] Work Phone: Start: 03-30-2024 Dr. Von Zambrano DO [facility] Start: 03-30-2024 Dr. Jordan Ortega MD [facility] [facility] Start: 03-30-2024 Dr. Liz rdz MD -[facility] Work Phone: Start: 03-29-2024 Walt Turner DO [facility] Start: 03-29-2024 Dr. Liz rdz MD -[facility] Work Phone: Start: 03-29-2024 Dr. Jordan Ortega MD [facility] Start: 03-28-2024 Dr. Jordan Ortega MD [facility] Start: 03-28-2024 ambulatory Xavi Cochran lity:[facility] Start: 03-28-2024 End: 04-08-2024 Evaluation and management of inpatient Neil Augustin Facility:[facility] Start: 03-28-2024 End: 04-08-2024 Dr. Neil Augustin DO -[facility] it Work Phone: Start: 03-24-2024 ambulatory Mikayla Ventura NP Fac ility:[facility] Start: 03-20-2024 Dr. Neil Augustin DO [facility] Work Phone: Start: 03-19-2024 Dr. Neil Augustin DO - [facility] Work Phone: Start: 03-18-2024 Dr. Neil Augustin DO [facility] Work Phone: Start: 03-17-2024 Dr. Neil Augustin DO [facility] Work Phone: Start: 03-16-2024 ambulatory Xavi Pandai lity:[facility] Start: 03-16-2024 Dr. Neil Augustin DO [facility] Work Phone: Start: 03-15-2024 End: 03-20-2024 Evaluation and management of inpatient Dana Miguel Facility:[facility] Start: 03-15-2024 End: 03-20-2024 Dr. Neil Augustin DO -[facility] Work Phone: Start: 03-15-2024 ambulatory Dana Miguel Facility:[facility] Start: 03-12-2024 ambulatory Xavi Pandai lity:[facility] Start: 03-08-2024 End: 03-08-2024 Dr. Xavi Fortune MD -Laboratory, [facility] Start: 03-08-2024 End: 03-08-2024 ambulatory Xavi Fortune Facility:[facility] Start: 03-02-2024 ambulatory Mikayla Ventura NP Fac ility:[facility] Start: 03-02-2024 Dr. Von Zambrano DO -[facility] -[facility] Start: 03-02-2024 Dr. Felix Garcia MD - [facility] Work Phone: Start: 03-01-2024 ambulatory Xavi Pandai lity:[facility] Start: 03-01-2024 Dr. Rashard Estrada MD -[facility] -[facility] Start: 03-01-2024 Dr. Felix Garcia MD - [facility] Work Phone: Start: 02-28-2024 ambulatory Felix Garcia Facility:[facility] Start: 02-28-2024 End: 03-02-2024 Evaluation and management of inpatient Felix Garcia Facility:[facility] Start: 02-28-2024 End: 03-02-2024 Dr. Felix Garcia MD -[facility] Work Phone: Start: 02-23-2024 End: 02-23-2024 Mikayla Ventura LIQUOR DEPARTMENT MANAGER-C -Pulmonary Services/Neurology Work Phone: Start: 02-23-2024 End: 02-23-2024 ambulatory Mikayla Ventura LIQUOR DEPARTMENT MANAGER Facility:[facility] Start: 01-30-2024 End: 01-30-2024 ambulatory Mikayla Ventura LIQUOR DEPARTMENT MANAGER [place] [place]: 01-01-2024 End: 01-01-2024 ambulatory [facility] Facility:[facility] Start: 12-17-2023 End: 12-17-2023 ambulatory [facility] Facility:[facility] Start: 08-24-2023 End: 08-24-2023 ambulatory XAVI FORTUNE Facility:[facility] Start: 08-24-2023 End: 08-24-2023 Patient encounter procedure Cara Marquez PA-C Work Phone: [facility] Comment on above: SOB (shortness of br eath) (Primary Dx) Start: 05-26-2023 End: 05-26-2023 Emergency department patient visit Dr. Stone Fortune Work Phone: [facility]-Emergency Department Work Phone: Start: 05-01-2023 End: 05-01-[address] Stone Fortune Work Phone: [facility] Work Phone: Start: 05-01-2023 End: 05-01-[address] Stone Fortune Work Phone: [facility]-Laboratory Work Phone: Start: 05-01-2023 End: 05-01-[address] Stone Fortune Work Phone: [facility]-Pulmonary Medicine [facility] Work Phone: Start: 03-19-2023 End: 03-19-[address] Stone Fortune Work Phone: [facility] Work Phone: Start: 03-19-2023 End: 03-19-[address] Stone Fortune Work Phone: [facility]-Cat Scan, [facility] Work Phone: Start: 02-20-2023 End: 02-20-[address] Stone Fortune Work Phone: [facility] Work Phone: Start: 02-20-2023 End: 02-20-[address] Stone Fortune Work Phone: [facility]-Radiology, [place] Work Phone: Start: 12-23-2022 End: 12-23-[address] Stone Fortune Work Phone: [facility]-Pulmonary Medicine [facility] Work Phone: Start: 09-02-2022 End: 09-02-[address] Stone Fortune Work Phone: [facility] Work Phone: Start: 09-02-2022 End: 09-02-[address] Stone Fortune Work Phone: [facility]-Radiology, [place] Work Phone: Start: 08-02-2022 End: 08-02-[address] Stone Fortune Work Phone: [facility]-Laboratory, Specimen Work Phone: Start: 07-03-2022 End: 07-03-[address] Stone Fortune Work Phone: [facility]-Pulmonary Medicine [facility] Work Phone: Start: 06-23-2022 End: 06-23-[address] Stone Fortune Work Phone: [facility]-Laboratory, Specimen Work Phone: Start: 06-03-2022 End: 06-03-[address] Stone Fortune Work Phone: [facility] Work Phone: Start: 06-03-2022 End: 06-03-[address] Stone Fortune Work Phone: [facility]-Laboratory, [facility] Start: 04-30-2022 End: 04-30-[address] Stone Fortune Work Phone: [facility] Work Phone: Start: 04-30-2022 End: 04-30-[address] Stone Fortune Work Phone: [facility]-Sleep Lab Start: 04-02-2022 End: 04-02-[address] Stone Fortune Work Phone: [facility]-Pulmonary Medicine [facility] Start: 03-12-2022 Non-patient / Non-visit Dr. Stone Fortune Work Phone: [facility] Start: 03-12-2022 End: 03-12-[address] Stone Fortune Work Phone: [facility] Work Phone: Start: 03-12-2022 End: 03-12-[address] Stone Fortune Work Phone: [facility]-Pulmonary Services/Neurology Start: 03-11-2022 Non-patient / Non-visit Dr. Stone Fortune Work Phone: [facility] Start: 03-11-2022 End: 03-11-[address] Stone Fortune Work Phone: [facility] Work Phone: Start: 03-11-2022 End: 03-11-[address] Stone Fortune Work Phone: [facility] Start: 02-07-2022 End: 02-07-[address] [facility] Start: 01-03-2022 End: 01-03-[address] Stone Fortune [facility] Start: 11-07-2021 Non-patient / Non-visit Dr. Stone Fortune Work Phone: [facility] Start: 11-07-2021 End: 11-07-[address] Stone Fortune Work Phone: [facility] Work Phone: Start: 11-07-2021 End: 11-07-[address] Stone Fortune Work Phone: [facility]-Patient Link Start: 11-07-[address] Chevy Fortune Work Phone: [facility] Start: 11-06-2021 Non-patient / Non-visit Dr. Stone Fortune Work Phone: [facility] Start: 11-05-2021 Non-patient / Non-visit Dr. Stone Fortune Work Phone: [facility] Start: 11-05-2021 End: 11-07-2021 Evaluation and management of inpatient [facility]-Progressive Care Unit Start: 09-24-2021 End: 09-24-2021 Emergency department patient visit [facility]-Emergency Department Start: 08-21-2021 End: 08-21-2021 Patient encounter procedure [facility]-Laboratory, [place] Start: 07-10-2021 End: 07-10-2021 Patient encounter procedure [facility]-Outpatient Bone Densitometry Start: 02-14-2016 Patient encounter status Cara Marquez ELLIE Work Phone: [facility] Procedures Date Procedure Procedure Detail Performing Clinician Start: 10-12-[address] Xavi Fortune MD Work Phone: Start: 10-12-2024 CT of thorax, abdome n and pelvis with contrast Dr. Xavi Fortune MD Work Phone: Start: 08-23-2024 Albumin/Globulin ratio Dr. Xavi Fortune MD Work Phone: Start: 08-23-2024 Endomysial antibody IgA level Dr. Xavi Fortune MD Work Phone: Start: 08-23-[address] reticulocyt e fraction Dr. Xavi Fortune MD Work Phone: Start: 08-23-[address] measurement [address] Xavi Fortune MD Work Phone: Start: 08-23-[address] Xavi Fortune MD Work Phone: Comment on above: Performed at: [address] [id number] Director: Nilton Jacobs PhD, Phone: [phone] Start: 07-10-[address] Xavi Fortune MD Work Phone: Start: 07-10-2024 Blood count smear mc rscp w/mnl difrntl wbc count Dr. Xavi Fortune MD Work Phone: Start: 07-10-2024 Calculation of international normalized ratio Dr. Xavi Fortune MD Work Phone: Start: 07-10-[address] Xavi Fortune MD Work Phone: Start: 07-10-2024 Mean corpuscular hemoglobin concentration determination Dr. Xavi Fortune MD Work Phone: Start: 07-10-2024 Nucleated red blood cell count procedure Dr. Xavi Fortune MD Work Phone: Start: 07-10-2024 Platelet mean volume determination Dr. Xavi Fortune MD Work Phone: Start: 07-10-2024 Serum inorganic phos phate measurement Dr. Xavi Fortune MD Work Phone: Start: 07-10-2024 X-ray of chest, PA a nd lateral views Dr. Xavi Fortune MD Work Phone: Start: 07-10-2024 Blood count smear mc rscp w/mnl difrntl wbc count Dr. Xavi Fortune MD Work Phone: Start: 07-10-[address] Xavi Fortune MD Work Phone: Start: 07-10-2024 Mean corpuscular hemoglobin concentration determination Dr. Xavi Fortune MD Work Phone: Start: 07-10-2024 Nucleated red blood cell count procedure Dr. Xavi Fortune MD Work Phone: Start: 07-10-2024 Platelet mean volume determination Dr. Xavi Fortune MD Work Phone: Start: 06-30-[address] Xavi Fortune MD Work Phone: Start: 06-30-2024 Serum inorganic phos phate measurement Dr. Xavi Fortune MD Work Phone: Start: 06-10-2024 Dual energy X-ray absorptiometry Dr. Xavi Fortune MD Work Phone: Start: 06-01-[address] Xavi Fortune MD Work Phone: Start: 05-27-2024 CT of chest without contrast Dr. Xavi Fortune MD Work Phone: Start: 05-26-2024 Evaluation of diagno stic study results Dr. Xavi Fortune MD Work Phone: Start: 05-05-2024 Blood count smear mc rscp w/mnl difrntl wbc count Dr. Xavi Fortune MD Work Phone: Start: 05-05-2024 Mean corpuscular hemoglobin concentration determination Dr. Xavi Fortune MD Work Phone: Start: 05-05-2024 Nucleated red blood cell count procedure Dr. Xavi Fortune MD Work Phone: Start: 05-05-2024 Platelet mean volume determination Dr. Xavi Fortune MD Work Phone: Start: 05-05-2024 X-ray of knee, four or more views Dr. Xavi Fortune MD Work Phone: Start: 05-05-[address] Xavi Fortune MD Work Phone: Start: 05-05-2024 Gram stain microscopy Norman Fortune MD Work Phone: Start: 05-05-2024 End: 05-05-2024 Microbial culture, body fluid Dr. Xavi Fortune MD Work Phone: Start: 05-03-2024 X-ray of chest, PA a nd lateral views Dr. Xavi Fortune MD Work Phone: Start: 04-09-2024 Albumin/Globulin ratio Dr. Xavi Fortune MD Work Phone: Start: 04-09-2024 Anion gap measurement Norman Fortune MD Work Phone: Start: 04-09-2024 Blood count smear mc rscp w/mnl difrntl wbc count Dr. Xavi Fortune MD Work Phone: Start: 04-09-2024 BUN/Creatinine ratio Dr Nixon Fortune MD Work Phone: Start: 04-09-[address] Xavi Fortune MD Work Phone: Start: 04-09-2024 Mean corpuscular hemoglobin concentration determination Dr. Xavi Fortune MD Work Phone: Start: 04-09-2024 Measurement of renal function Dr. Xavi Fortune MD Work Phone: Start: 04-09-2024 Nucleated red blood cell count procedure Dr. Xavi Fortune MD Work Phone: Start: 04-09-2024 Platelet mean volume determination Dr. Xavi Fortune MD Work Phone: Start: 04-09-2024 CT angiography of ch est with contrast Dr. Xavi Fortune MD Work Phone: Start: 04-08-2024 Plain chest X-ray Dr. Zayda Fortune MD Work Phone: Start: 04-08-2024 Plain chest X-ray Dr. Zayda Fortune MD Work Phone: Start: 04-08-2024 Albumin/Globulin ratio Dr. Xavi Fortune MD Work Phone: Start: 04-08-2024 Anion gap measurement Norman Fortune MD Work Phone: Start: 04-08-2024 Blood count smear mc rscp w/mnl difrntl wbc count Dr. Xavi Fortune MD Work Phone: Start: 04-08-2024 BUN/Creatinine ratio Dr Nixon Fortune MD Work Phone: Start: 04-08-[address] Xaiv Fortune MD Work Phone: Start: 04-08-2024 Mean corpuscular hemoglobin concentration determination Dr. Xavi Fortune MD Work Phone: Start: 04-08-2024 Measurement of renal function Dr. Xavi Fortune MD Work Phone: Start: 04-08-2024 Nucleated red blood cell count procedure Dr. Xavi Fortune MD Work Phone: Start: 04-08-2024 Platelet mean volume determination Dr. Xavi Fortune MD Work Phone: Start: 04-07-2024 Plain X-ray abdomen Dr. Xavi Fortune MD Work Phone: Start: 04-06-2024 CT of chest, abdomen and pelvis without contrast Dr. Xavi Fortune MD Work Phone: Start: 04-05-2024 Plain X-ray abdomen Dr. Xavi Fortune MD Work Phone: Start: 04-03-2024 Plain X-ray abdomen Dr. Xavi Fortune MD Work Phone: Start: 04-01-2024 Plain X-ray abdomen Dr. Xavi Fortune MD Work Phone: Start: 03-31-2024 Plain X-ray abdomen Dr. Xavi Fortune MD Work Phone: Start: 03-31-2024 Computed tomography of abdomen and pelvis with contrast Dr. Xvai Fortune MD Work Phone: Start: 03-31-2024 Carbon dioxide measurement, partial pressure Dr. Xavi Fortune MD Work Phone: Start: 03-31-2024 Gases blood o2 satur ation only direct nimo Dr. Xavi Fortune MD Work Phone: Start: 03-31-2024 Measurement of parti al pressure of oxygen in blood Dr. Xavi Fortune MD Work Phone: Start: 03-31-[address] Xavi Fortune MD Work Phone: Start: 03-31-2024 Plain chest X-ray Dr. Zayda Fortune MD Work Phone: Start: 03-31-2024 End: 03-31-2024 Plain X-ray abdomen Dr. Xavi hunter MD Work Phone: Start: 03-30-2024 Acid fast bacilli culture Dr. Xavi Fortune MD Work Phone: Start: 03-29-[address] Xavi Fortune MD Work Phone: Start: 03-29-2024 Acid fast bacilli culture Dr. Xavi Fortune MD Work Phone: Start: 03-28-2024 Acid fast bacilli culture Dr. Xavi Fortune MD Work Phone: Start: 03-28-[address] Chevy Fortune MD Work Phone: Start: 03-28-2024 [address] diffic[address] e detection Dr. Xavi Fortune MD Work Phone: Start: 03-28-2024 Legionella pneumophi la antigen assay Dr. Xavi Fortune MD Work Phone: Start: 03-28-[address] Xavi Fortune MD Work Phone: Start: 03-28-2024 End: 03-28-2024 Streptococcus pneumoniae antigen assay Dr. Xavi Fortune MD Work Phone: Start: 03-28-2024 Dr. Georgi Fortune MD Work Phone: Start: 03-28-2024 In-vitro immunologic test Dr. Xavi Fortune MD Work Phone: Start: 03-28-2024 Urine microscopy: re d cells Dr. Xavi Fortune MD Work Phone: Start: 03-28-2024 Urnls dip stick/tabl et reagent auto microscopy Dr. Xavi Fortune MD Work Phone: Start: 03-28-[address] Ahsan Fortune MD Work Phone: Start: 03-28-2024 CT of thorax, abdome n and pelvis with contrast Dr. Xavi Fortune MD Work Phone: Start: 03-27-2024 Iadna-dna/rna gi pth gn multiplex probe tq 6-11 Dr. Xavi Fortune MD Work Phone: Start: 03-19-2024 Plain chest X-ray Dr. Zayda Fortune MD Work Phone: Start: 03-19-2024 Anion gap measurement Norman Fortune MD Work Phone: Start: 03-19-2024 Blood count smear mc rscp w/mnl difrntl wbc count Dr. Xavi Fortune MD Work Phone: Start: 03-19-2024 BUN/Creatinine ratio Dr Nixon Fortune MD Work Phone: Start: 03-19-[address] Xavi Fortune MD Work Phone: Start: 03-19-2024 Mean corpuscular hemoglobin concentration determination Dr. Xavi Fortune MD Work Phone: Start: 03-19-2024 Measurement of renal function Dr. Xavi Fortune MD Work Phone: Start: 03-19-2024 Nucleated red blood cell count procedure Dr. Xavi Fortune MD Work Phone: Start: 03-19-2024 Platelet mean volume determination Dr. Xavi Fortune MD Work Phone: Start: 03-15-2024 Computed tomography of abdomen and pelvis with intravenous contrast Dr. Xavi Fortune MD Work Phone: Start: 03-15-[address] Chevy Fortune MD Work Phone: Start: 03-15-2024 Gram stain microscopy Norman Fortune MD Work Phone: Start: 03-15-2024 Legionella pneumophi la antigen assay Dr. Xavi Fortune MD Work Phone: Start: 03-15-[address] Xavi Fortune MD Work Phone: Start: 03-15-20[address] Res[address] microbia l culture Dr. Xavi Fortune MD Work Phone: Start: 03-15-2024 End: 03-15-2024 Streptococcus pneumoniae antigen assay Dr. Xavi Fortune MD Work Phone: Start: 03-15-[address] Chevy Fortune MD Work Phone: Start: 03-15-2024 Dr. Georgi Fortune MD Work Phone: Start: 03-15-2024 Urine microscopy: re d cells Dr. Xavi Fortune MD Work Phone: Start: 03-15-2024 Urnls dip stick/tabl et reagent auto microscopy Dr. Xavi Fortune MD Work Phone: Start: 03-15-2024 X-ray of chest, PA a nd lateral views Dr. Xavi Fortune MD Work Phone: Start: 03-15-2024 Albumin/Globulin ratio Dr. Xavi Fortune MD Work Phone: Start: 03-15-[address] Ahsan Fortune MD Work Phone: Start: 03-15-2024 Calculation of international normalized ratio Dr. Xavi Fortune MD Work Phone: Start: 03-08-2024 Albumin/Globulin ratio Dr. Xavi Fortune MD Work Phone: Start: 03-08-2024 Anion gap measurement Norman Fortune MD Work Phone: Start: 03-08-2024 Blood count smear mc rscp w/mnl difrntl wbc count Dr. Xavi Fortune MD Work Phone: Start: 03-08-2024 BUN/Creatinine ratio Dr Nixon Fortune MD Work Phone: Start: 03-08-2024 Mean corpuscular hemoglobin concentration determination Dr. Xavi Fortune MD Work Phone: Start: 03-08-2024 Measurement of renal function Dr. Xavi Fortune MD Work Phone: Start: 03-08-2024 Nucleated red blood cell count procedure Dr. Xavi Fortune MD Work Phone: Start: 03-08-2024 Osmolality measureme nt, serum Dr. Xavi Fortune MD Work Phone: Start: 03-08-2024 Platelet mean volume determination Dr. Xavi Fortune MD Work Phone: Start: 03-01-2024 X-ray of chest, PA a nd lateral views Dr. Xavi Fortune MD Work Phone: Start: 02-29-[address] Chevy Fortune MD Work Phone: Start: 02-28-2024 CT angiography of ch est with contrast Dr. Xavi Fortune MD Work Phone: Start: 02-28-[address] Xavi Fortune MD Work Phone: Start: 02-28-2024 Sars-cov-2 Dr. Georgi Fortune MD Work Phone: Start: 02-28-2024 X-ray of chest, PA a nd lateral views Dr. Xavi Fortune MD Work Phone: Start: 02-28-[address] Georgi Fortune MD Work Phone: Start: 02-28-2024 CT of head without contrast Dr. Xavi Fortune MD Work Phone: Start: 05-26-2023 Computed tomography of abdomen and pelvis with intravenous contrast Dr. Stone Fortune Work Phone: Start: 03-19-[address] Georgi Fortune Work Phone: Start: 02-20-2023 Radiography of thora cic spine Dr. Stone Fortune Work Phone: Start: 09-02-2022 X-ray of cervical spine Dr. Stone Fortune Work Phone: Start: 06-23-2022 Investigation of transfusion reaction Dr. Stone Fortune Work Phone: Start: 06-23-2022 [address] l culture Dr. Stone Fortune Work Phone: Start: 03-11-[address] Georgi Fortune Work Phone: Start: 11-05-2021 Plain chest X-ray Start: 09-24-2021 X-ray of lumbar spin e, two or three views Start: 07-10-2021 Dual energy X-ray absorptiometry Start: 09-23-2014 Colonoscopy Cara Marquez PA-Zayda Work Phone: Start: 04-22-2012 Lipid 1996 panel - S curry or Plasma Cara Marquez PA-C Work Phone: H/O: vasectomy Hx of vasectomy History of appendectomy Hx of appendectom y Investigation of transfusion reaction Dr. Stone Fortune Work Phone: Respiratory microbia l culture Dr. Stone Fortune Work Phone: Viral antigen assay Plan of Treatment Date Care Activity Detail Author Start: 04-03-2031 Urine microalbumin profile DTaP,Tdap,Td Vaccine (3 - Td or Tdap) [facility] Start: 11-28-2026 Pneumococcal Vaccine: 50+ (3 of 3 - PCV20 or PCV21) Pneumococcal Vaccine: 50+ (3 of 3 - PCV20 or PCV21) [facility] Start: 2026 Pneumococcal vaccination Pneumococcal Vaccine (3 of 3 - PPSV23 or PCV20) [facility] Start: 06-09-2025 BP Controlled (<130/80) BP Controlled (<130/80) [facility] Start: 06-02-2025 BP Controlled (<130/80) BP Controlled (<130/80) [facility] Start: 05-28-2025 BP Controlled (<130/80) BP Controlled (<130/80) [facility] Start: 05-27-2025 BP Controlled (<130/80) BP Controlled (<130/80) [facility] Start: 05-21-2025 BP Controlled (<130/80) BP Controlled (<130/80) [facility] Start: 05-19-2025 BP Controlled (<130/80) BP Controlled (<130/80) [facility] Start: 05-14-2025 BP Controlled (<130/80) BP Controlled (<130/80) [facility] Start: 05-12-2025 BP Controlled (<130/80) BP Controlled (<130/80) [facility] Start: 05-07-2025 BP Controlled (<130/80) BP Controlled (<130/80) [facility] Start: 05-05-2025 BP Controlled (<130/80) BP Controlled (<130/80) [facility] Start: 04-30-2025 BP Controlled (<130/80) BP Controlled (<130/80) [facility] Start: 04-29-2025 BP Controlled (<130/80) BP Controlled (<130/80) [facility] Start: 04-23-2025 BP Controlled (<130/80) BP Controlled (<130/80) [facility] Start: 04-22-2025 BP Controlled (<130/80) BP Controlled (<130/80) [facility] Start: 04-20-2025 BP Controlled (<130/80) BP Controlled (<130/80) [facility] Start: 04-17-2025 BP Controlled (<130/80) BP Controlled (<130/80) [facility] Start: 04-16-2025 BP Controlled (<130/80) BP Controlled (<130/80) [facility] Start: 04-14-2025 BP Controlled (<130/80) BP Controlled (<130/80) [facility] Start: 01-31-2025 [place] [place]: 10-13-2024 [facility] Start: 10-12-2024 [facility] Start: 08-23-2024 Celiac disease screen [facility] Start: 08-23-2024 Haptoglobin [Mass/volume] in Serum or Plasma [facility] Start: 08-23-2024 Serum immunofixation [facility] Start: 08-23-2024 Vitamin D, 1,25-dihydroxy measurement [facility] Start: 07-10-2024 Hepatic function panel [facility] Start: 07-10-2024 Prothrombin time [facility] Start: 07-10-2024 Serum inorganic phosphate measurement [facility] Start: 07-10-2024 Thyroid stimulating hormone measurement [facility] Start: 07-10-2024 Oxygen therapy [facility] Start: 07-10-2024 Following clinical pathway protocol [facility] Start: 07-10-2024 Respiratory pathogens DNA and RNA panel - Respiratory specimen by ANU with probe detection [facility] Start: 07-10-2024 Taking nasal swab [facility] Start: 07-10-2024 Admission procedure [facility] Start: 07-10-2024 Ambulation without limitation [facility] Start: 07-10-2024 Assessment of risk of venous thromboembolism [facility] Start: 07-10-2024 Insertion of catheter into peripheral vein [facility] Start: 07-10-2024 Providing care according to standard [facility] Start: 07-10-2024 Referral to occupational therapist [facility] Start: 07-10-2024 Referral to service [facility] Start: 07-10-2024 Verification routine [facility] Start: 07-10-2024 End: 07-10-2024 [facility] Start: 07-10-2024 Inhalation therapy procedure [facility] Start: 07-10-2024 Hospital admission, emergency, from emergency room, medical nature [facility] Start: 07-10-2024 Patient discharge [facility] Start: 07-10-2024 Patient referral to dietitian [facility] Start: 07-10-2024 Physiotherapy of chest [facility] Start: 06-07-2024 Patient referral [facility] Work Phone: Start: 05-06-2024 [facility] Start: 05-05-2024 Arthrocentesis aspir&/inj major jt/bursa w/o us [facility] Start: 04-12-2024 Referral to service [facility] Start: 04-10-2024 Referral to service [facility] Start: 04-10-2024 Patient discharge [facility] Start: 04-09-2024 Referral to stereoplotter operator [facility] Start: 04-09-2024 Following clinical pathway protocol [facility] Start: 04-09-2024 Assessment of risk of venous thromboembolism [facility] Start: 04-09-2024 Insertion of catheter into peripheral vein [facility] Start: 04-09-2024 Measuring intake and output [facility] Start: 04-09-2024 Oxygen therapy [facility] Start: 04-09-2024 Providing care according to standard [facility] Start: 04-09-2024 Provision of activity privileges [facility] Start: 04-09-2024 Referral to service [facility] Start: 04-09-2024 [facility] Start: 04-09-2024 Admission procedure [facility] Start: 04-08-2024 Patient discharge [facility] Start: 04-05-2024 Provision of activity privileges [facility] Start: 04-03-2024 [facility] Start: 04-02-2024 End: 04-03-2024 [facility] Start: 04-01-2024 [facility] Start: 03-31-2024 Insertion of nasogastric tube [facility] Start: 03-29-2024 Referral to gastroenterology service [facility] Start: 03-28-2024 Assessment of risk of venous thromboembolism [facility] Start: 03-28-2024 Consultation [facility] Start: 03-28-2024 Insertion of catheter into peripheral vein [facility] Start: 03-28-2024 Measuring intake and output [facility] Start: 03-28-2024 Oxygen therapy [facility] Start: 03-28-2024 Patient referral to dietitian [facility] Start: 03-28-2024 Providing care according to standard [facility] Start: 03-28-2024 Provision of activity privileges [facility] Start: 03-28-2024 Referral to general surgeon [facility] Start: 03-28-2024 Referral to occupational therapist [facility] Start: 03-28-2024 Referral to service [facility] Start: 03-28-2024 Tobacco use cessation education [facility] Start: 03-28-2024 End: 03-28-2024 [facility] Start: 03-28-2024 Following clinical pathway protocol [facility] Start: 03-28-2024 Acid fast bacilli culture [facility] Start: 03-28-2024 Admission procedure [facility] Start: 03-28-2024 End: 03-28-2024 [facility] Start: 03-28-2024 Inhalation therapy procedure [facility] Start: 03-28-2024 Patient referral to dietitian [facility] Start: 03-20-2024 Patient discharge [facility] Start: 03-19-2024 Physiotherapy of chest [facility] Start: 03-15-2024 Oxygen therapy [facility] Start: 03-15-2024 Assessment of risk of venous thromboembolism [facility] Start: 03-15-2024 Elevation of head of bed [facility] Start: 03-15-2024 Insertion of catheter into peripheral vein [facility] Start: 03-15-2024 Measuring intake and output [facility] Start: 03-15-2024 Patient education [facility] Start: 03-15-2024 Providing care according to standard [facility] Start: 03-15-2024 Provision of activity privileges [facility] Start: 03-15-2024 Referral to service [facility] Start: 03-15-2024 [facility] Start: 03-15-2024 Following clinical pathway protocol [facility] Start: 03-15-2024 Admission procedure [facility] Start: 03-15-2024 Inhalation therapy procedure [facility] Start: 03-15-2024 Patient referral to [facility] Start: 03-02-2024 Patient discharge [facility] Start: 02-28-2024 End: 02-29-2024 [facility] Start: 02-28-2024 Following clinical pathway protocol [facility] Start: 02-28-2024 Ambulation without limitation [facility] Start: 02-28-2024 Assessment of risk of venous thromboembolism [facility] Start: 02-28-2024 Inhalation therapy procedure [facility] Start: 02-28-2024 Insertion of catheter into peripheral vein [facility] Start: 02-28-2024 Measuring intake and output [facility] Start: 02-28-2024 Notification of physician [facility] Start: 02-28-2024 Oxygen therapy [facility] Start: 02-28-2024 Providing care according to standard [facility] Start: 02-28-2024 Referral to occupational therapist [facility] Start: 02-28-2024 Referral to service [facility] Start: 02-28-2024 Vital signs measurements [facility] Start: 02-28-2024 Admission procedure [facility] Start: 10-26-2023 Covid-19 Vaccine () Covid-19 Vaccine () [facility] Start: 10-26-2023 Influenza vaccination [facility] Start: 05-26-2023 [facility] Start: 02-24-2023 Behavioral Health Screening Behavioral Health Screening [facility] Start: 10-25-2022 Covid-19 Vaccine () Covid-19 Vaccine () [facility] Start: 03-11-2022 Measurement of respiratory function [facility] Work Phone: Start: 11-07-2021 Patient discharge [facility] Work Phone: Start: 11-05-2021 [facility] Work Phone: Start: 11-05-2021 Oxygen therapy [facility] Work Phone: Start: 11-05-2021 Following clinical pathway protocol [facility] Work Phone: Start: 11-05-2021 Ambulation without limitation [facility] Work Phone: Start: 11-05-2021 Assessment of risk of venous thromboembolism [facility] Work Phone: Start: 11-05-2021 Inhalation therapy procedure [facility] Work Phone: Start: 11-05-2021 Insertion of catheter into peripheral vein [facility] Work Phone: Start: 11-05-2021 Providing care according to standard [facility] Work Phone: Start: 11-05-2021 Taking nasal swab [facility] Work Phone: Start: 11-05-2021 Verification routine [facility] Work Phone: Start: 11-05-2021 Admission procedure [facility] Work Phone: Start: 11-05-2021 End: 11-05-2021 [facility] Work Phone: Start: 11-05-2021 End: 11-06-2021 [facility] Work Phone: Start: 11-05-2021 Patient referral to dietitian [facility] Work Phone: Start: 2021 RSV Vaccine (1 - 1-dose 60+ series) RSV Vaccine (1 - 1-dose 60+ series) [facility] Start: 2021 RSV Vaccine (1 - Risk 60-74 years 1-dose series) RSV Vaccine (1 - Risk 60-74 years 1-dose series) [facility] Start: 09-23-2017 Screening for malignant neoplasm of colon [facility] Start: 04-22-2017 Lipid panel Lipid Screening [facility] Start: 04-22-2017 Prostate specific antigen measurement Prostate Cancer Screening Discussion [facility] Start: 02-19-2017 Screening for malignant neoplasm of colon Fecal Occult Blood [facility] Start: 05-22-2015 Diabetes Screening Diabetes Screening [facility] Start: 10-04-2011 Shingrix Vaccine (1 of 2) Shingrix Vaccine (1 of 2) [facility] Start: 2006 Screening for malignant neoplasm of colon [facility] Start: 10-04-1991 Zoledronic acid therapy Alpha-1 Antitrypsin Deficiency Screening [facility] Start: 10-04-1979 Annual PCP Team Chronic Disease Visit Annual PCP Team Chronic Disease Visit [facility] Start: 10-04-1979 Anxiety Screening Anxiety Screening [facility] Start: 10-04-1979 BP Controlled (<130/80) BP Controlled (<130/80) [facility] Start: 10-04-1979 Depression Screening Depression Screening [facility] Start: 10-04-1979 Hepatitis C screening Hepatitis C Screening [facility] Start: 10-04-1979 HIV screening HIV Screening [facility] Start: 10-04-1979 Spirometry Spirometry [facility] Alanine aminotransfe rase [Enzymatic activity/volume] in Serum or Plasma [facility] Albumin [Mass/volume ] in Serum or Plasma [facility] Albumin [Moles/volum e] in Serum or Plasma [facility] Albumin/Globulin ratio [facility] Alkaline phosphatase [Enzymatic activity/volume] in Serum or Plasma [facility] Anion gap in Serum o r Plasma [facility] Bacteria identified in Sputum by Culture [facility] Bilirubin, total measurement [facility] Bilirubin.direct [Mass/volume] in Serum or Plasma [facility] BUN/Creatinine ratio [facility] C reactive protein [Mass/volume] in Serum or Plasma [facility] Calcium [Mass/volume ] in Serum or Plasma [facility] Carbon dioxide, tota l [Moles/volume] in Central venous blood [facility] Comprehensive metabo lic 2000 panel - Serum or Plasma [facility] Creatinine [Mass/vol ume] in Serum or Plasma [facility] CT Chest [facility] Work Phone: CT Chest [facility] Electrophoresis: [id number] [facility] Electrophoresis: tuan ma globulin [facility] Erythrocyte mean corpuscular volume determination [facility] Exercise tolerance test [facility] Work Phone: Ferritin [Mass/volum e] in Serum or Plasma [facility] Globulin measurement [facility] Glucose [Mass/volume ] in Serum or Plasma [facility] Hematocrit [Volume Fraction] of Blood [facility] Hemoglobin [Mass/vol ume] in Blood [facility] IgA [Mass/volume] in Serum or Plasma [facility] IgG [Mass/volume] in Serum or Plasma [facility] IgM [Mass/volume] in Serum or Plasma [facility] INR in Blood by Coag ulation assay [facility] Iron [Mass/mass] in Unspecified specimen [facility] Laboratory data interpretation [facility] Lactate dehydrogenas e measurement [facility] Leukocytes [#/volume ] in Blood [facility] Magnesium measurement [facility] Mean corpuscular hem oglobin concentration determination [facility] Mean corpuscular hem oglobin determination [facility] Measurement of renal function [facility] Measurement of respi ratory function [facility] Mycobacterium sp marcel ntified in Unspecified specimen by Organism specific culture [facility] Neutrophil count [facility] Neutrophil percent differential count [facility] Patient Education [facility] Work Phone: Patient referral [facility] Work Phone: Platelets [#/volume] in Blood [facility] Potassium measurement [facility] Protein electrophore sis panel - Serum or Plasma [facility] Prothrombin time [facility] Red blood cell count [facility] Red cell distributio n width determination [facility] Respiratory microbia l culture Respiratory Culture [facility] Work Phone: Reticulocyte count [facility] Serum chloride measurement [facility] Sodium measurement [facility] Thyroid stimulating hormone measurement [facility] Tissue transglutamin ase IgA Ab [Units/volume] in Serum [facility] Total protein measurement [facility] Urea nitrogen [Mass/ volume] in Serum or Plasma [facility] Immunizations Immunization Date Immunization Notes Care Provider Fa cility 06-15-2020 Covid (Moderna) [facility] 05-18-2020 Covid ([facility]) [facility] 02-14-2016 influenza virus vacc ine, unspecified formulation Cara Marquez PA-C Work Phone: [facility] 12-21-2013 pneumococcal polysaccharide vaccine, 23 valent Cara Marquez PA-C Work Phone: [facility] 12-21-2013 tetanus toxoid, redu qi diphtheria toxoid, and acellular pertussis vaccine, adsorbed Cara Marquez PA-C Work Phone: [facility] Payers Date Payer Category Payer Self-pay [id number] 2023 Private Health Insurance [id number] 2023 Private Health Insurance [id number] 2012 Private Health Insurance [id number] Unknown [id number] 2.16.8 40.1.452138.3.579.2.462 Unknown [id number] 2.16.8 40.1.850653.3.579.2.462 Unknown [id number] 2.16.8 40.1.522546.3.579.2.462 Unknown [id number] 2.16.8 40.1.123583.3.579.2.462 Unknown [id number] 2.16.8 40.1.029141.3.579.2.462 Unknown [id number] 2.16.8 40.1.039389.3.579.2.462 Unknown [id number] 2.16.8 40.1.376012.3.579.2.462 Unknown [id number] 2.16.8 40.1.106325.3.579.2.462 Unknown [id number] 2.16.8 40.1.826813.3.579.2.462 Unknown [id number] 2.16.8 40.1.493067.3.579.2.462 Unknown [id number] 2.16.8 40.1.507883.3.579.2.462 Unknown [id number] 2.16.8 40.1.850177.3.579.2.462 Unknown [id number] 2.16.8 40.1.585150.3.579.2.462 Unknown [id number] 2.16.8 40.1.298696.3.579.2.462 Unknown [id number] 2.16.8 40.1.251575.3.579.2.462 Unknown [id number] 2.16.8 40.1.781954.3.579.2.462 Unknown [id number] 2.16.8 40.1.415031.3.579.2.462 Unknown [id number] 2.16.8 40.1.851088.3.579.2.462 Unknown [id number] 2.16.8 40.1.700621.3.579.2.462 Unknown [id number] 2.16.8 40.1.841955.3.579.2.462 Unknown [id number] 2.16.8 40.1.439243.3.579.2.462 Unknown [id number] 2.16.8 40.1.412872.3.579.2.462 Unknown [id number] 2.16.8 40.1.981640.3.579.2.462 Unknown [id number] 2.16.8 40.1.122279.3.579.2.462 Unknown [id number] 2.16.8 40.1.156886.3.579.2.462 Unknown [id number] 2.16.8 40.1.507210.3.579.2.462 Unknown [id number] 2.16.8 40.1.068489.3.579.2.462 Unknown [id number] 2.16.8 40.1.634162.3.579.2.462 Unknown [id number] 2.16.8 40.1.279504.3.579.2.462 Unknown [id number] 2.16.8 40.1.528227.3.579.2.462 Unknown [id number] 2.16.8 40.1.819592.3.579.2.462 Unknown [id number] 2.16.8 40.1.610139.3.579.2.462 Unknown [id number] 2.16.8 40.1.453410.3.579.2.462 Unknown [id number] 2.16.8 40.1.686458.3.579.2.462 Unknown [id number] 2.16.8 40.1.843881.3.579.2.462 Unknown [id number] 2.16.8 40.1.133469.3.579.2.462 Unknown [id number] 2.16.8 40.1.293306.3.579.2.462 Unknown [id number] 2.16.8 40.1.611722.3.579.2.462 Unknown [id number] 2.16.8 40.1.140552.3.579.2.462 Unknown [id number] 2.16.8 40.1.517373.3.579.2.462 Unknown [id number] 2.16.8 40.1.189250.3.579.2.462 Unknown [id number] 2.16.8 40.1.085272.3.579.2.462 Unknown [id number] 2.16.8 40.1.449430.3.579.2.462 Unknown [id number] 2.16.8 40.1.376622.3.579.2.462 Unknown [id number] 2.16.8 40.1.751466.3.579.2.462 Unknown [id number] 2.16.8 40.1.417113.3.579.2.462 Unknown [id number] 2.16.8 40.1.915183.3.579.2.462 Unknown [id number] 2.16.8 40.1.662855.3.579.2.462 Unknown [id number] 2.16.8 40.1.223310.3.579.2.462 Unknown [id number] 2.16.8 40.1.866690.3.579.2.462 Unknown [id number] 2.16.8 40.1.247471.3.579.2.462 Unknown [id number] 2.16.8 40.1.495111.3.579.2.462 Unknown [id number] 2.16.8 40.1.573306.3.579.2.462 Unknown [id number] 2.16.8 40.1.738903.3.579.2.462 Unknown [id number] 2.16.8 40.1.385689.3.579.2.462 Unknown [id number] 2.16.8 40.1.085598.3.579.2.462 Unknown [id number] 2.16.8 40.1.020747.3.579.2.462 Unknown [id number] 2.16.8 40.1.613510.3.579.2.462 Unknown [id number] 2.16.8 40.1.295823.3.579.2.462 Unknown [id number] 2.16.8 40.1.564730.3.579.2.462 Unknown [id number] 2.16.8 40.1.085676.3.579.2.462 Unknown [id number] 2.16.8 40.1.197194.3.579.2.462 Unknown [id number] 2.16.8 40.1.282289.3.579.2.462 Unknown [id number] 2.16.8 40.1.851328.3.579.2.462 Unknown [id number] 2.16.8 40.1.486307.3.579.2.462 Unknown [id number] 2.16.8 40.1.837495.3.579.2.462 Unknown [id number] 2.16.8 40.1.691302.3.579.2.462 Unknown [id number] 2.16.8 40.1.045542.3.579.2.462 Unknown [id number] 2.16.8 40.1.007538.3.579.2.462 Unknown [id number] 2.16.8 40.1.337999.3.579.2.462 Unknown [id number] 2.16.8 40.1.565400.3.579.2.462 Unknown [id number] 2.16.8 40.1.115365.3.579.2.462 Unknown [id number] 2.16.8 40.1.332030.3.579.2.462 Unknown [id number] 2.16.8 40.1.215349.3.579.2.462 Unknown [id number] 2.16.8 40.1.909291.3.579.2.462 Unknown [id number] 2.16.8 40.1.017642.3.579.2.462 Unknown [id number] 2.16.8 40.1.590278.3.579.2.462 Social History Date Type Detail Facility Start: 03-14-2021 End: 12-23-2022 Tobacco smoking status NHIS Unknown if ever smoked [facility] Start: 06-20-2020 Cigarettes [facility] Start: 1960 Sex Assigned At Male [facility] Start: 07-07-2006 Tobacco smoking stat us NHIS Smokes tobacco daily [facility] Work Phone: History of tobacco use Cigarette Smoker [facility] Start: 07-07-2006 End: 04-14-2024 Cigarettes smoked current (pack per day) - Reported 0.5 [facility] Start: 07-07-2006 Tobacco use and exposure Smokeless tobacco non-user [facility] Start: 12-16-2020 Alcohol intake Current drinke r of alcohol (finding) [facility] Start: 12-16-2020 End: 04-14-2024 Tobacco use panel [facility] National Score (1-10 0), lower number is lower risk Not on file [facility] Start: 1960 Sex Assigned At Not on file [facility] Start: 05-14-2024 End: 10-12-2024 Tobacco smoking status NHIS Current Light tobacco smoker [facility] Start: 06-07-2024 Sex Male (finding) [facility] Goals Date Patient Goal Desired Activity /State Functional Status Date Assessment Result Facility 07-10-2024 Functional status Ambulates [facility] Work Phone: 04-10-2024 Functional status Bathroom Privilege [facility] Work Phone: 04-08-2024 Functional status Chair [facility] Work Phone: 03-20-2024 Functional status Ambulates [facility] Work Phone: 03-02-2024 Functional status Ambulates [facility] Work Phone: 11-07-2021 Functional status Ambulates;Up a d igor;Chair [facility] Work Phone: 11-07-2021 Functional status None [facility] Work Phone: 08-31-2014 Are you deaf, or do you have serious difficulty hearing No 08/31/2014 4:28 PM EDT Melissa Poon LPN No [facility] Work Phone: 08-31-2014 Are you blind, or do you have serious difficulty seeing, even when wearing glasses No 08/31/2014 4:28 PM EDT Melissa Poon LPN No [facility] 08-31-2014 Do you have serious difficulty walking or climbing stairs No 08/31/2014 4:28 PM EDT Melissa Poon LPN No [facility] 08-31-2014 Do you have difficul ty dressing or bathing No 08/31/2014 4:28 PM EDT Melissa Poon LPN No [facility] 08-31-2014 Because of a physica l, mental, or emotional condition, do you have difficulty doing errands alone such as visiting a physician's office or shopping No 08/31/2014 4:28 PM EDT Melissa Poon LPN No [facility] Mental Status Date Assessment Result Facility 10-12-2024 Cognitive function Awake;Alert;A ppropriate;Fol lows Commands [facility] Work Phone: 07-10-2024 Cognitive function Awake;Alert;A ppropriate;Fol lows Commands [facility] Work Phone: 07-10-2024 Cognitive function Voice/Name [facility] Work Phone: 04-10-2024 Cognitive function Voice/Name [facility] Work Phone: 04-08-2024 Cognitive function Voice/Name [facility] Work Phone: 03-20-2024 Cognitive function Voice/Name [facility] Work Phone: 03-02-2024 Cognitive function Voice/Name [facility] Work Phone: 05-26-2023 Cognitive function Level Of Cons ciousness Awake;Alert;Appropriate;Fol lows Commands [facility] Work Phone: 11-07-2021 Cognitive function Voice/Name [facility] Work Phone: 08-31-2014 Because of a physica l, mental, or emotional condition, do you have serious difficulty concentrating, remembering, or making decisions No 08/31/2014 4:28 PM EDT Melissa Poon LPN No [facility] Clinical Notes 03-11-2022 to 12-06-2024 Note Date & Type Note Facility 12-06-2024 Progress note [facility] 10-13-2024 Discharge summary [facility] 10-12-2024 Radiology Diagnostic study note [facility] Imaging Services [address] [place], [place] [address] CTA Chst, Abd, Pel W and/or WO MR#: [id number] Acct: [id number] Name: AIDEN ORTIZ Rep #: [id number] : 1960 M 64 From: Jb Clemente MD PCP: Dr. Xavi Fortune MD Status: REG ER Study:CTA Chst, Abd, Pel W and/or WO Date of Exam: 10/12/24 Exam# [id number] Ordering Dr: Zayda Aguila DO PROCEDURE: CTA CHST, ABD, PEL W AND/OR WO 10/12/2024 REASON FOR EXAM: BACK PAIN, CHEST PAIN, DISSECTION STUDY TECHNIQUE: CT angiography of the chest, abdomen and pelvis with intravenous contrast. Coronal and Sagittal reconstruction series were provided. 3D vessel post processing was performed. One or more dose reduction techniques were used (e.g., Automated exposure control, adjustment of the mA and/or kV according to patient size, use of iterative reconstruction technique. CONTRAST: Isovue 370 VOLUME: 98 mL RADIATION DOSE SUMMARY: DLP: 452.67 mGycm COMPARISON: CTA chest 04/09/2024. CT chest 05/27/2024. FINDINGS: VASCULATURE: Normal course and caliber of the aorta. No aneurysm or dissection. Mild-moderate atherosclerotic disease. Common origins of the left common carotid and right innominate artery from the aortic arch. Major branches of the celiac axis, SMA, ASHLYN, bilateral renal and iliac arteries are patent, normal in course and caliber. Duplicated left renal artery noted. No pulmonary arterial emboli identified. HEART: Normal in size. No pericardial effusion. Mild-moderate coronary artery calcifications. MEDIASTINUM: Unremarkable. No mass or lymphadenopathy. LUNGS/PLEURA: Stable focal spiculated linear scarring in the left upper lobe, inthe location of previous cavitation/abscess, with further tissue retraction. No airspace consolidation or findings of pulmonary edema. No pneumothorax or pleural effusions. Mild upper lobe predominant centrilobular emphysema. Probable small tracheal tracheocele at the dorsal right aspect of the upper trachea. HEPATOBILIARY: No significant abnormality, given early arterial phase timing of IV contrast. No biliary ductal dilatation. Subcentimeter flash filling hemangioma in the anterior left hepatic lobe. GENITOURINARY: No significant abnormality, given early arterial phase timing of IV contrast. No urolithiasis or hydronephrosis. Mildly enlarged prostate with bladder wall thickening likely reflecting hypertrophy. No pericystic inflammatory changes. GI TRACT: No evidence of obstruction or discrete active inflammatory process. Appendix not identified with certainty but there are no pericecal inflammatory changes. Extensive distal colonic diverticulosis without evidence of active diverticulitis/colitis. PERITONEUM/RETROPERITONEUM: No ascites or free air. No lymphadenopathy. MUSCULOSKELETAL: No acute or aggressive osseous abnormality. Moderate multilevel degenerative changes of the spine, with several chronic compression fracture deformities, stable. CT/CTA Chst, Abd, Pel W and/or WO IMPRESSION: 1. No acute findings within the chest, abdomen or pelvis. 2. No aortic aneurysm or dissection. Mild-moderate atherosclerotic disease. 3. Chronic/degenerative ancillary findings, as described above. Reading Location: [id number] CC: Dr. Xavi Fortune MD; Dr. Cindy Aguila DO ~ Retoucher Photoengraving: Signed [facility] 10-12-2024 Discharge summary Note Date/Time October 13, 2024 1:45am [facility] Medical Records Department [address] [place] [address] Emergency Department Summary 10/12/24 MR#: [id number] Acct: [id number] Name: AIDEN ORTIZ Rep #:[id number] : 1960 64 From: Cindy Romano PCP: Dr. Xavi Fortune MD Status :REG ER Location: ED ADDENDUM by Andres Juarez DO on 10/13/24 at 0145 The patient was signed out to me awaiting his 4-hour troponin. The initial troponin was 38 the 2-hour increased by 7 points to 45 in the 4-hour remained flat with a value of 46. The patient has a known history of SVT and according to EMS his heart rate was 160 and they were able to witness him to spontaneouslyconvert from SVT to normal sinus rhythm. This would correlate with why his initial troponins were elevated. However the fact that he has been in normal sinus rhythm since arrival and the troponin is now flat at 4 hours would correlate with rate related decreased blood flow and oxygenation and not true ischemic/acute coronary syndrome. On reevaluation the patient is resting comfortably vitals are stable and he has no chest discomfort and therefore do not feel there is need for further observation in the hospital and he is otherwise safe for discharge 10/13/24 0145<Electronically signed by Andres Juarez DO> Cosigner Signature (if applicable): cc: Dr. Xavi Fortune MD ~* Signed HPI History of Present Illness Chief Complaint: Palpitations Informant: patient Narrative Narrative: Patient is a 64-year-old male with history of COPD, tobacco abuse, chronic pain (takes tramadol for it) as well as hypertension presenting with back pain and palpitations. Patient states he was feeling fine earlier today. He saw his primary care doctor today and everything was fine. Afterwards he ate a cheeseburger and then took a nap for about 30 minutes. 30 minutes to an hour after the nap he was walking there was gradual onset he had a severe stabbing pain in his mid thoracic back. He had to sit down. He checked his O2 saturation and the monitor told him his heart rate was going between 155-160. He states he has chronic back pain but this feels different. He notes he does normally take tramadol but does not have any today. He is not really have a reason for this. He called EMS because of his elevated heart rate and pain and they brought him in. Patient was tachycardic for them but then converted spontaneously. Patient does have a history of SVT 1 time in the spring. He denies any recent swelling of his legs. Is on any blood thinners. He not taking his breathing treatments today but does feel he needs a breathing treatment right now is having chest tightness/shortness of breath. He denies any chest pain, abdominal pain or nausea or vomiting. No other complaints or concerns reported at this time. [facility] Medical History Acute exacerbation of chronic obstructive pulmonary disease COPD (chronic obstructive pulmonary disease) (~06/07/24) SVT (supraventricular tachycardia) Chronic hyponatremia Colonic mass Tobacco dependence Stercoral colitis Smoking greater than 40 pack years Smoker On home oxygen therapy IBS (irritable bowel syndrome) Hx of colonic polyp Alcohol abuse Hemorrhoids COPD (chronic obstructive pulmonary disease) Hypertension Arthritis Home Medications ?Medication ?Instructions ?Recorded ?Last Taken ?Type epinephrine 0.3 mg/0.3 mL 0.3 mg IM ONCE PRN anaphylax is 07/07/23 Unknown History injection, auto-injector (EpiPen 2-Jesse) Disability Placard #1 ea 01/30/24 Unknown Rx fluticasone 500 mcg-salmeterol 50 1 inh inhalation BID respiratory 02/16/24 02/27/24 Rx mcg/dose blistr powdr for #3 ea inhalation (Advair Diskus) metoprolol tartrate 25 mg tablet 25 mg PO BID #60 tabs 04/10/24 Unknown Rx albuterol sulfate 90 mcg/actuation 2 puff inhalation Q 4H PRN SOB 05/14/24 Unknown History aerosol inhaler melatonin 3 mg tablet 3 mg PO HS PRN sleep 5 Unknown History tiotropium bromide 2.5 2 inh inhalation DAILY copd #3 ea 07/13/24 Unknown Rx mcg/actuation mist for inhalation (Spiriva Respimat) tramadol 50 mg tablet 50 mg PO QDAY PRN pain 08/31 Unknown History Allergy/AdvReac Type Severity Reaction Status Date / Time amlodipine (From Norvasc) Allergy Swelling Verified 10/12/24 20:33 lisinopril Allergy Pain in Verified 10/12/24 20:33 joints tamsulosin Allergy Other Verified 10/12/24 20:33 tolterodine (From Detrol) Allergy Other Verified 10/12/24 20:33 dupilumab (From Dupixent Pen) AdvReac Mild Pain in Verified 10/12/24 20:33 joints Family History Mother Arthritis Father Diabetes Heart disease Hypertension Surgical History Hx of vasectomy Hx of colonoscopy Hx of appendectomy Social History household members: spouse and children housing: house current occupational status: employed Smoking Status: Light Smoker (<10/day) second hand exposure: Yes alcohol intake: current alcohol intake frequency: 3 or more drinks per day Alcohol type: beer substance use type: does not use caffeine: Yes what type of physical activity do you participate in: none frequency: does not exercise ROS ROS ED Constitutional Constitutional ED: Denies chills or fever(s) ENT ENT ED: Denies sore throat Cardiovascular Cardiovascular: Reports chest pain and racing heartbeat Respiratory/Chest Respiratory/Chest: Reports cough and dyspnea; Denies sputum Gastrointestinal Gastrointestinal: Denies abdominal pain, nausea or vomiting Musculoskeletal Musculoskeletal: Reports back pain; Denies arthralgias Integumentary Denies rash Neurologic Neurologic: Denies weakness Hematologic/Lymphatic Hematologic/Lymphatic: Denies easy bleeding or easy bruising EXAM Physical Exam Const Vital Signs: 10/12/24 20:27 10/12/24 20:34 10/12/24 21:12 Temperature 98.4 F Temperature Source Oral Pulse Rate 91 95 Respiratory Rate 20 H 18 Respiratory Effort Normal Non-Labored Respiratory Pattern Normal Blood Pressure 148/95 H Blood Pressure Mean 112 Pulse Ox 97 Oxygen Delivery Method Room Air 10/12/24 21:26 10/12/24 22:00 10/12/24 23:00 Temperature Temperature Source Pulse Rate 90 80 83 Respiratory Rate 16 16 Respiratory Effort Respiratory Pattern Blood Pressure 117/82 H 124/81 H Blood Pressure Mean 93 95 Pulse Ox 92 100 100 Oxygen Delivery Method Room Air Room Air Room Air 10/12/24 23:35 10/13/24 00:00 Temperature Temperature Source Pulse Rate 87 81 Respiratory Rate 16 16 Respiratory Effort Respiratory Pattern Normal Blood Pressure 120/79 Blood Pressure Mean 92 Pulse Ox 100 Oxygen Delivery Method Room Air Positive well nourished and well developed General Appearance ED: well developed and NAD HEENT Reports moist mucous membranes Neck supple and no JVD Chest Wall inspection of chest normal and palpation of chest normal Resp Resp Narrative: Mildly tachypneic. Tight breath sounds with inspiratory and extra wheezing present. Diminished breath sounds at the bases. No chest wall crepitus appreciated. Cardio regular rate, regular rhythm and no murmurs GI normal to inspection, nondistended, normoactive bowel sounds and non-tender Palpation: soft; Negative for tender or guarding Back/Spine Back/Spine Narrative: Tenderness of the thoracic back most pronounced around approximately T5 through 7. No step-off sign. Neuro oriented x3 Sensorium / Orientation: alert Motor Exam: Negative for general weakness Psych mental status grossly normal Skin no rashes or lesions noted and no wounds MDM MDM MDM Narrative Medical decision making narrative: Patient is evaluated for sudden onset of thoracic back pain with associated racing heart. Denies any chest pain. Reportedly was in some sort of tacky arrhythmia however he converted for EMS. I do not have a tracing of this. Differential includes SVT, atrial fibrillation, aortic dissection given sudden onset of severe back pain, pulmonary emboli, pneumothorax and pneumonia. Patient also does have chronic back pains as possible this was exacerbation of his chronic pain. CTA of the chest 7 pelvis is obtained to rule out acute aortic dissection or other acute pathology. Workup is negative for dissection, aneurysm. There is mild to moderate atherosclerotic disease noted. There is emphysematous changes noted. There is moderate multilevel degenerative changes of the spine with several chronic compression fractures which are stable. EMS report reviewed which states that patient did initially have a pulse in the 160s and was noted to convert to normal sinus rhythm on the monitor when they were trying to obtain EKG. Pain improved at that point. Patient is given morphine, DuoNeb and Zofran for his symptoms as well as IV fluids. He feels improved on repeat evaluation with still some wheezing. Givenadditional DuoNeb. Lab work largely normal except for high sensitive troponin which is elevated 38. Repeat is 45. He is feeling much better at this point. This could be elevated secondary to strain associated with his prior tachyarrhythmia. Will obtain 4-hour high-sensitivity troponin prior to final disposition. Suspect this is normal can be discharged home. Patient is then given his evening tramadol while in the emergency room. My suspicion is patient had a run of SVT or some other tachyarrhythmia that spontaneously resolved this is what caused his presentation today. Lab Data Attestation: I reviewed the patient's lab results. Labs: Laboratory Results - last 24 hr 10/12/24 10/12/24 21:08 23:40 WBC 9.9 RBC 4.80 Hgb 13.8 Hct 40.8 MCV 85.0 MCH 28.8 MCHC 33.8 RDW Std Deviation 38.8 RDW Coeff of Pam 12.5 Plt Count 396 MPV 8.3 Immature Gran % (Auto) 0.400 Neut % (Auto) 63.5 Lymph % (Auto) 19.9 Muhlenberg % (Auto) 10.3 H Eos % (Auto) 4.5 Baso % (Auto) 1.4 H Absolute Neuts (auto) 6.3 Absolute Lymphs (auto) 1.96 Nucleated RBC % 0 Sodium 129 L Potassium 4.6 Chloride 92 L Carbon Dioxide 25.7 Anion Gap 12 BUN 12 Creatinine 0.71 Estim Creat Clear Calc 89.17 Est GFR (MDRD) Non-Af 103 BUN/Creatinine Ratio 16.6 Glucose 87 Calcium 9.4 Total Bilirubin 0.25 AST 19 ALT 10 Alkaline Phosphatase 73 Troponin T High Sens 38 H Troponin T Hi Sens 2 Hr 45 H Total Protein 6.5 Albumin 4.0 Globulin 2.5 Albumin/Globulin Ratio 1.6 Lipase 25 Radiography Diagnostic Testing: Clinical Impression(s) from Imaging Studies Chest/Abdomen/Pelvis CTA 10/12/24 21:02 IMPRESSION: 1. No acute findings within the chest, abdomen or pelvis. 2. No aortic aneurysm or dissection. Mild-moderate atherosclerotic disease. 3. Chronic/degenerative ancillary findings, as described above. Reading Location: [id number] Rhythm Strip Rhythm Strip: Sinus Rhythm Rate: 94 Ectopy: None EKG Initial EKG: Attestation: I personally reviewed and interpreted this EKG as follows: Interpretation: Sinus Rhythm Comments: Normal sinus rhythm at a rate of 94 bpm with first AV block VA interval 210 Left axis deviation Normal intervals Normal ST segments Discharge Plan Triage Chief Complaint: Palpitations ED Provider: Cindy Aguila Dx/Rx/DC Orders Clinical Impression: Acute thoracic back pain, COPD (chronic obstructive pulmonary disease), Palpitations Prescriptions: No Action (DME) Disability Placard See Rx Instructions .ROUTE .MEDSUPPLY Qty: 1 0RF Rx Instructions: expires 01/29/2029 epinephrine [EpiPen 2-Jesse] 0.3 mg/0.3 mL auto-injector 0.3 mg IM ONCE PRN (Reason: anaphylaxis) Rx Instructions: as a single dose; may repeat once albuterol sulfate 90 mcg/actuation HFA aerosol inhaler 2 puff INHALATION Q4H PRN (Reason: SOB) melatonin 3 mg tablet 3 mg PO HS PRN (Reason: sleep) tramadol 50 mg tablet 50 mg PO QDAY PRN (Reason: pain) metoprolol tartrate 25 mg Tablet 25 mg PO BID Qty: 60 0RF fluticasone propion-salmeterol [Advair Diskus] 500-50 mcg/dose blister with device 1 inh inhalation BID Qty: 3 3RF Spiriva Respimat 2.5 mcg/actuation mist 2 inh inhalation DAILY Qty: 3 3RF Rx Instructions: administer at approximately the same time(s) each day Primary Care Provider: Xavi Fortune Referrals: Xavi Fortune MD [Primary Care Provider] - Print Language: Belarusian What to do if you have Problems For any increased pain, shortness of breath, bleeding, nausea or vomiting, chestpain, or any unexpected problems, contact your Primary Care Provider. Call [facility] ([phone]) or report to the closest Emergency Room. Call 911 if necessary. 10/13/24 0046 <Electronically signed by Cindy Aguila DO> Cosigner Signature (if applicable): CC: Dr. Xavi Fortune MD ~ Signed [facility] Work Phone: 1(350) 766-537606-30-2025 Evaluation note* Diagnosis Onset Date Resolution Status Admit Date Anemia acute August 23 2:53pm Dysgeusia acute August 23 2:53pm Weight loss acute August 23 2:53pm Eosinophils increased acute Aug 1:05pm COPD (chronic obstructive pulmonary disease) chronic August 31 1:05pm Nicotine abuse chronic August 31, 2024 1:05pm COPD (chronic obstructive pulmonary disease) chronic September 22 7:54am SVT (supraventricular tachycardia) chronic November 25 2:39pm [facility] Work Phone: 1(706) 600-388306-30-2025 Evaluation note* Diagnosis Onset Date Resolution Status Admit Date Anemia acute August 23 2:53pm Dysgeusia acute August 23 2:53pm Weight loss acute August 23 2:53pm Eosinophils increased acute Aug 1:05pm COPD (chronic obstructive pulmonary disease) chronic August 31 1:05pm Nicotine abuse chronic August 31, 2024 1:05pm COPD (chronic obstructive pulmonary disease) chronic September 22 7:54am SVT (supraventricular tachycardia) chronic November 25 2:39pm COPD (chronic obstructive pulmonary disease) chronic December 06, 2024 1:03pm Smoking greater than 40 pack years chronic December 06 1:03pm [facility] Work Phone: 1(229) 363-507205-18-2025 [facility]05-17-2025 Progress note Author Liz [facility] Note Date/Time July 10, 2024 2:31p m [facility] Medical Records Department [address] [place] [id number] Progress Note 07/10/24 1212 MR#: [id number] Acct: [id number] Name: AIDEN ORTIZ Rep #:[id number] : 1960 63 From: Liz Alvarenga MD PCP: Dr. Xavi Fortune MD Status :ADM CHANELL Location: [place] [address]-1 Subjective Subjective Patient seen and examined. He admits to some shortness of breath. He is also wheezing. HE denies any chest pain, palpitations, dizziness, nausea, vomiting orany other symptoms. Review of systems is otherwise negative. Objective Data Objective Data Vital Signs: Vital Signs Temp Pulse Resp BP Pulse Ox O2 Del Method O2 Flow Rate 98.0 F 98 24 H 119/77 96 Nasal Cannula 2 07/10/24 07:46 07/10/24 11:01 07/10/24 11:01 07/10/24 07:46 07/10/24 07:46 07/10/24 10:22 07/10/24 10:22 Oxygen Flow Rate (L/min) 2 Oxygen Delivery Method Nasal Cannula Weight: 127 lb 13.89 oz Body Mass Index (BMI) 20.0 Intake & Output: Intake and Output for Last 24 Hours 07/08/24 07/09/24 07/10/24 23:59 23:59 23:59 Intake Total 200 / 200 Balance 200 / 200 Lab / Micro Data 07/10/24 05:18 07/10/24 05:18 Labs: Laboratory Results - last 24 hr 07/10/24 01:47: WBC 12.4 H, RBC 4.10 L, Hgb 11.9 L, Hct 36.0 L, MCV 87.8, MCH 29.0, MCHC 33.1, RDW Std Deviation 43.9, RDW Coeff of Pam 13.7, Plt Count 476 H,MPV 8.3, Immature Gran % (Auto) 0.400, Neut % (Auto) 67.4, Lymph % (Auto) 18.9 L, Muhlenberg % (Auto) 9.0, Eos % (Auto) 3.3, Baso % (Auto) 1.0, Absolute Neuts (auto) 8.4 H, Absolute Lymphs (auto) 2.34, Nucleated RBC % 0, Sodium 129 L, Potassium 4.0, Chloride 90 L, Carbon Dioxide 26.0, Anion Gap 13, BUN 15, Creatinine 0.62 L, Estim Creat Clear Calc 107.31, Est GFR (MDRD) Non-Af 108, BUN/Creatinine Ratio23.8 H, Glucose 85, Calcium 9.3, Magnesium 2.0, NT pro BNP II 258 07/10/24 05:18: WBC 10.6, RBC 3.79 L, Hgb 11.1 L, Hct 33.2 L, MCV 87.6, MCH 29.3, MCHC 33.4, RDW Std Deviation 44.3 H, RDW Coeff of Pam 13.6, Plt Count 459 H, MPV 8.5, Immature Gran % (Auto) 0.400, Neut % (Auto) 92.6 H, Lymph % (Auto) 5.1 L, Muhlenberg % (Auto) 0.9, Eos % (Auto) 0.3, Baso % (Auto) 0.7, Absolute Neuts (auto) 9.8 H, Absolute Lymphs (auto) 0.54 L, Nucleated RBC % 0, PT 12.4, INR 0.9, Sodium 130 L, Potassium 4.0, Chloride 92 L, Carbon Dioxide 25.8, Anion Gap 12, BUN 15, Creatinine 0.74, Estim Creat Clear Calc 84.91, Est GFR (MDRD) Non-Af103, BUN/Creatinine Ratio 19.9, Glucose 150 H, Calcium 8.9, Phosphorus 4.0, Magnesium 2.0, Total Bilirubin 0.18, Direct Bilirubin 0.10, AST 21, ALT 10, Alkaline Phosphatase 83, Total Protein 6.7, Albumin 3.9, Globulin 2.8, Albumin/Globulin Ratio 1.4, TSH 0.910 Micro: Microbiology 07/10/24 04:56 Mucosa - Nasopharyngeal Respiratory Panel (PCR) - Final Radiography Diagnostic Testing: Radiology Impression Chest X-Ray 07/10/24 02:20 IMPRESSION: No evidence of acute disease. Reading Location: [facility] Physical Exam Const alert, oriented x3 and no apparent distress General Appearance: cooperative and well developed HEENT normocephalic, head/scalp atraumatic, moist oral mucous membranes and oropharynxnormal Eyes PERRL and EOMs intact bilaterally Neck no lymphadenopathy and supple Lymph Lymphatic: no lymphadenopathy noted and no lymphedema noted Resp Resp Narrative: mildly diminished breath sounds bibasally, mild wheezes, no crackles. On 2L of oxygen by nasal canula. Cardio regular rate, regular rhythm, S1 normal heart sound, S2 normal heart sound and no murmurs GI normal to inspection, nondistended, normoactive bowel sounds, soft to palpation,non-tender and non-distended Extremity normal capillary refill, no clubbing, cyanosis or edema and no calf tenderness General Extremity: no tenderness to palpation of joints or extremities Skin General Skin Exam: no breakdown Neuro CN's II-XII intact bilaterally, no focal motor deficits and no sensory deficits noted Motor Exam: general weakness Psych thought process normal and cooperative Appearance: appropriate Assessment & Plan Assessment/Plan (1) Acute exacerbation of chronic obstructive pulmonary disease: PLAN: Plan #Hypoxia due ot acute COPD exacerbation * Currently on 2 L of oxygen. States usually wears 2 L at night at home. Breathing treatments with bronchodilators and IV Solu-Medrol. * States he continues to smoke and smokes half a pack a day. * Titrate oxygen to maintain saturation above 90%. #History of lung abscess * Completed course of antibiotics. Stable. * #Hyponatremia: * Sodium was 129 on admission and is up to 130 today. * He does have a history of chronic intermittent hyponatremia. #History of SVT: Now in normal sinus rhythm. Follows up with cardiology on outpatient basis. On metoprolol. #Hypertension: On metoprolol and losartan #History of alcohol use disorder: Drinks 3-4 beers daily. Not currently having any risk of withdrawal. Will monitor for withdrawal #Nicotine dependence: Smokes about half a pack a day. Counseled to quit. Nicotine patch daily as needed. DVT prophylaxis: Low risk. Encourage ambulation. Will place on SCDs. Charges/Coding Visit Charges Inpatient E&M: 80934 Subs Hosp L2 07/10/24 1431 <Electronically signed by Liz Alvarenga MD> Liz Alvarenga MD Cosigner Signature (if applicable): CC: ~ Signed [facility] Work Phone: 1(319) 230-298305-17-2025 Discharge summary Author Andres Juarez [facility] Note Date/Time July 10, 2024 4:25a m [facility] Medical Records Department [address] [place] [address] Emergency Department Summary 07/10/24 MR#: [id number] Acct: [id number] Name: AIDEN ORTIZ Rep #:[id number] : 1960 63 From: Andres Juarez DO PCP: Dr. Xavi Fortune MD Status :ADM CHANELL Location: [place] [address] HPI History of Present Illness Chief Complaint: Shortness of Breath Informant: patient and EMS Narrative Narrative: Patient is a 63-year-old male with past medical history of COPD who continues tosmoke roughly half a pack a day. He also has a past medical history of hypertension and chronic hyponatremia. He states that he wears nasal cannula oxygen at nighttime but does not typically require it throughout the day. He states that he has been admitted in the past for COPD mainly secondary to worsening of symptoms from pneumonia. He states there has been no recent feversor chills or known sick contact. He reports however that his recently bathed the 2 dogs and what ever chemical she used in their bath he feels exacerbated his COPD. He reports he took his medications to help without symptom resolution and therefore comes to the hospital for evaluation. [facility] Medical History (Updated 07/10/24 @ 04:[address] Andres Juarez, DO) COPD (chronic obstructive pulmonary disease) (~06/07/24) SVT (supraventricular tachycardia) Chronic hyponatremia Colonic mass Tobacco dependence Stercoral colitis Smoking greater than 40 pack years Smoker On home oxygen therapy IBS (irritable bowel syndrome) Hx of colonic polyp Alcohol abuse Hemorrhoids COPD (chronic obstructive pulmonary disease) Hypertension Arthritis Home Medications ?Medication ?Instructions ?Recorded ?Last Taken ?Type epinephrine 0.3 mg/0.3 mL 0.3 mg IM ONCE PRN anaphylax is 07/07/23 Unknown History injection, auto-injector (EpiPen 2-Jesse) Disability Placard #1 ea 01/30/24 Unknown Rx fluticasone 500 mcg-salmeterol 50 1 inh inhalation BID respiratory 02/16/24 02/27/24 Rx mcg/dose blistr powdr for #3 ea inhalation (Advair Diskus) tiotropium bromide 2.5 2 inh inhalation DAILY copd 03/15/24 Unknown History mcg/actuation mist for inhalation (Spiriva Respimat) metoprolol tartrate 25 mg tablet 25 mg PO BID #60 tabs 04/10/24 Unknown Rx albuterol sulfate 90 mcg/actuation 2 puff inhalation Q 4H PRN SOB 05/14/24 Unknown History aerosol inhaler melatonin 3 mg tablet 3 mg PO HS PRN sleep 5 Unknown History prednisone 20 mg tablet 20 mg PO QDAY #30 tabs 05/24 Unknown Rx Allergy/AdvReac Type Severity Reaction Status Date / Time amlodipine (From [facility]) Allergy Swelling Verified 05/31/24 08:37 lisinopril Allergy Pain in Verified 05/31/24 08:37 joints tamsulosin Allergy Other Verified 05/31/24 08:37 tolterodine (From Detrol) Allergy Other Verified 05/31/24 08:37 Family History Mother Arthritis Father Diabetes Heart disease Hypertension Surgical History Hx of vasectomy Hx of colonoscopy Hx of appendectomy Social History household members: spouse and children housing: house current occupational status: employed Smoking Status: Light Smoker (<10/day) second hand exposure: Yes alcohol intake: current alcohol intake frequency: 3 or more drinks per day Alcohol type: beer substance use type: does not use caffeine: Yes what type of physical activity do you participate in: none frequency: does not exercise ROS ROS ED Constitutional Constitutional ED: Denies chills or fever(s) Eyes Eyes: Denies change in vision ENT ENT ED: Denies rhinorrhea or sore throat Cardiovascular Cardiovascular: Reports racing heartbeat; Denies chest pain or palpitations Respiratory/Chest Respiratory/Chest: Reports cough and dyspnea Gastrointestinal Gastrointestinal: Denies abdominal pain, diarrhea, nausea or vomiting Genitourinary Genitourinary ED: Denies dysuria Musculoskeletal Musculoskeletal: Reports back pain Integumentary Denies rash Neurologic Neurologic: Denies headache(s) Hematologic/Lymphatic Hematologic/Lymphatic: Denies easy bleeding or easy bruising Allergic/Immunologic Allergic/Immunologic ED: Denies mouth swelling or tongue swelling EXAM Physical Exam Const Vital Signs: 07/10/24 01:08 07/10/24 01:11 07/10/24 01:11 Temperature 98.2 F 98.2 F Temperature Source Oral Oral Pulse Rate 104 H 100 Respiratory Rate 22 H 22 H Respiratory Effort Short of Breath Accessory Muscle Use Pursed Lip Respiratory Depth Deep Respiratory Pattern Tachypnea Blood Pressure 144/82 H 144/82 H Blood Pressure Mean 102 102 Pulse Ox 97 96 Oxygen Delivery Method Room Air Room Air Room Air Oxygen Flow Rate (L/min) 07/10/24 01:41 07/10/24 02:08 07/10/24 02:11 Temperature 98.1 F Temperature Source Oral Pulse Rate 93 109 H 101 H Respiratory Rate 22 H 19 H 17 Respiratory Effort Respiratory Depth Respiratory Pattern Tachypnea Blood Pressure 156/83 H 156/83 H Blood Pressure Mean 107 107 Pulse Ox 95 95 Oxygen Delivery Method Room Air Oxygen Flow Rate (L/min) 07/10/24 02:13 07/10/24 03:00 Temperature 98.7 F Temperature Source Oral Pulse Rate 105 H Respiratory Rate 17 Respiratory Effort Respiratory Depth Respiratory Pattern Blood Pressure 138/83 H Blood Pressure Mean 101 Pulse Ox 96 96 Oxygen Delivery Method Nasal Cannula Nasal Cannula Oxygen Flow Rate (L/min) 2 2 Positive well nourished and well developed General Appearance ED: well developed; Negative for pallor HEENT HEENT Narrative: No tongue or lip swelling no oral lesions no airway edema or compromise No secondary findings in the posterior pharynx to suggest infection Eyes PERRL and EOMs intact bilaterally General Eye ED: Negative for scleral icterus Neck supple and no JVD Neck Narrative: No nuchal rigidity or meningeal signs noted Chest Wall palpation of chest normal Chest Narrative: No bony deformity or crepitance Resp Resp Narrative: Patient is in mild respiratory distress with tachypnea and slight accessory muscle use. Breath sounds are diminished throughout with diffuse expiratory wheeze and faint rhonchi in the bilateral bases Cardio regular rhythm Rate: tachycardic and other Other Details: Slightly tachycardic rate with regular rhythm Radial and carotid pulses are equal and symmetric Back/Spine Back/Spine Narrative: No bony deformity or step-off of the thoracic or lumbar spine. There is lower thoracic pain with palpation however patient reports this is chronic in nature Extremity Extremity Narrative: Trace to +1 pitting edema to the bilateral lower extremities that is equal and symmetric Negative Homans' sign bilaterally Neuro oriented x3, CN's II-XII intact bilaterally and no sensory deficits noted Sensorium / Orientation: alert Motor Exam: strength 5/5 throughout Psych Mood & Affect: anxious Skin no rashes or lesions noted General Skin Exam: Negative for jaundice or pallor MDM MDM MDM Narrative Medical decision making narrative: Patient arrived to the ER in mild respiratory distress. He reported a longstanding history of COPD and tobacco abuse. There is concern that the patient is having a COPD exacerbation from chemical pneumonitis based on his report of exposure to a new soap this evening. With back pain there is concern he may have a pneumonia or pneumothorax. Patient could also have atypical presentation for acute coronary syndrome. Secondary to this an EKG was obtainedwhich revealed normal sinus rhythm without ischemic findings going against ACS. proBNP is normal going against congestive heart failure and x-ray does not display pneumothorax or pneumonia. Patient was given IV steroids as well as breathing treatments and did have improvement of his work of breathing and breath sounds. The patient does have oxygen available to him at home but with his history of chemical exposure as the main cause of his COPD exacerbation I donot feel that sending him back to the place where the chemical is still present is his best option. There is high likelihood that with return home and reexposure to the chemical his COPD will flare once again necessitating return to the ER. Therefore the hospitalist was contacted and he agrees to accept the patient in observation status at this time to continue with breathing treatmentsand steroid therapy. Plan of care was discussed with the patient who is agreeable to it History & Record Review Discussion w/independent historian: EMS personnel and Patient Lab Data Attestation: I reviewed the patient's lab results. Labs: Laboratory Results - last 24 hr 07/10/24 01:47 WBC 12.4 H RBC 4.10 L Hgb 11.9 L Hct 36.0 L MCV 87.8 MCH 29.0 MCHC 33.1 RDW Std Deviation 43.9 RDW Coeff of Pam 13.7 Plt Count 476 H MPV 8.3 Immature Gran % (Auto) 0.400 Neut % (Auto) 67.4 Lymph % (Auto) 18.9 L Muhlenberg % (Auto) 9.0 Eos % (Auto) 3.3 Baso % (Auto) 1.0 Absolute Neuts (auto) 8.4 H Absolute Lymphs (auto) 2.34 Nucleated RBC % 0 Sodium 129 L Potassium 4.0 Chloride 90 L Carbon Dioxide 26.0 Anion Gap 13 BUN 15 Creatinine 0.62 L Estim Creat Clear Calc 107.31 Est GFR (MDRD) Non-Af 108 BUN/Creatinine Ratio 23.8 H Glucose 85 Calcium 9.3 Magnesium 2.0 NT pro BNP II 258 Radiography Diagnostic Testing: Clinical Impression(s) from Imaging Studies Chest X-Ray 07/10/24 02:20 IMPRESSION: No evidence of acute disease. Reading Location: [id number] Chest x-ray is interpreted by the emergency medicine physician reveals no acute infiltrate pneumothorax or pleural effusion Management Discussion w/another healthcare provider: Hospitalist Discharge Plan Dx/Rx/DC Orders Clinical Impression: Acute exacerbation of chronic obstructive pulmonary disease, Hypertension, Chronic hyponatremia, Tobacco abuse Disposition Disposition: Acute Care Hospital [facility] Discharge Date/Time: 07/10/24 04:13 What to do if you have Problems For any increased pain, shortness of breath, bleeding, nausea or vomiting, chestpain, or any unexpected problems, contact your Primary Care Provider. Call [facility] ([phone]) or report to the closest Emergency Room. Call 911 if necessary. 07/10/24 0425 <Electronically signed by Andres Juarez DO> Cosigner Signature (if applicable): CC: Dr. Xavi Fortune MD ~ Signed [facility] Work Phone: 1(736) 301-310705-17-2025 History and physical note Author Jonah Aguilar [facility] Note Date/Time July 10, 2024 4:19a m [facility] Medical Records Department [address] [place] [address] H&P Exam - Hospitalist 07/10/24 0348 MR#: [id number] Acct: [id number] Name: AIDEN ORTIZ Rep #:[id number] : 1960 63 From: Jonah Aguilar MD PCP: Dr. Xavi Fortune MD Status :ADM CHNAELL Location: [place] [address] HPI - General General Date of Admission: 07/10/24 Date of Service: 07/10/24 Chief Complaint: Shortness of breath HPI Narrative AIDEN ORTIZ, is a 63 M past medical history of hypertension on losartan, tobacco abuse, COPD on 2 L of oxygen [nocturnal only], alcohol abuse, irritable bowel syndrome, hemorrhoids, lung abscess s/p complete antibiotic therapy who presents to the ED with concerns regarding worsening shortness of breath since 1day. He notes that he got exposed to strong odor of shampoo used by his to wash her dogs today and since then he has been noticing difficulty breathing and increased wheezing. No fever, occasional cough with white expectoration [baseline symptoms], no nausea or nausea no vomiting. Continues to smoke 4 to 5 cigarettes daily, consumes 3-4 beers daily. At the time of evaluation in the ED, afebrile, pulse 104, blood pressure 144/82,respiratory rate 22 initially 97% on room air but required 2 L of nasal cannula as blood saturation decreased to 92%. WBC 12.4, hemoglobin 11.9, platelet [id number] sodium 129, chloride 90, creatinine 0.6, glucose 85 NT-proBNP 258. Patient is worried that if he goes home and he gets reexposed to the chemicals his shortness of breath will record and like to stay the night for monitoring and also to avoid exposure to the shampoo odors. [facility] Medical History (Updated 07/10/24 @ 03:[address] Andres Juarez, DO) COPD (chronic obstructive pulmonary disease) (~06/07/24) SVT (supraventricular tachycardia) Chronic hyponatremia Colonic mass Tobacco dependence Stercoral colitis Smoking greater than 40 pack years Smoker On home oxygen therapy IBS (irritable bowel syndrome) Hx of colonic polyp Alcohol abuse Hemorrhoids COPD (chronic obstructive pulmonary disease) Hypertension Arthritis Home Medications ?Medication ?Instructions ?Recorded ?Last Taken ?Type epinephrine 0.3 mg/0.3 mL 0.3 mg IM ONCE PRN anaphylax is 07/07/23 Unknown History injection, auto-injector (EpiPen 2-Jesse) Disability Placard #1 ea 01/30/24 Unknown Rx fluticasone 500 mcg-salmeterol 50 1 inh inhalation BID respiratory 02/16/24 02/27/24 Rx mcg/dose blistr powdr for #3 ea inhalation (Advair Diskus) tiotropium bromide 2.5 2 inh inhalation DAILY copd 03/15/24 Unknown History mcg/actuation mist for inhalation (Spiriva Respimat) metoprolol tartrate 25 mg tablet 25 mg PO BID #60 tabs 04/10/24 Unknown Rx albuterol sulfate 90 mcg/actuation 2 puff inhalation Q 4H PRN SOB 05/14/24 Unknown History aerosol inhaler melatonin 3 mg tablet 3 mg PO HS PRN sleep 5 Unknown History prednisone 20 mg tablet 20 mg PO QDAY #30 tabs 05/24 Unknown Rx Allergy/AdvReac Type Severity Reaction Status Date / Time amlodipine (From [facility]) Allergy Swelling Verified 05/31/24 08:37 lisinopril Allergy Pain in Verified 05/31/24 08:37 joints tamsulosin Allergy Other Verified 05/31/24 08:37 tolterodine (From [facility]) Allergy Other Verified 05/31/24 08:37 Family History Mother Arthritis Father Diabetes Heart disease Hypertension Surgical History Hx of vasectomy Hx of colonoscopy Hx of appendectomy Social History household members: spouse and children housing: house current occupational status: employed Smoking Status: Light Smoker (<10/day) second hand exposure: Yes alcohol intake: current alcohol intake frequency: 3 or more drinks per day Alcohol type: beer substance use type: does not use caffeine: Yes what type of physical activity do you participate in: none frequency: does not exercise Vital Signs Vital Signs Vital Signs: 07/10/24 01:08 07/10/24 01:11 07/10/24 01:11 Temperature 98.2 F 98.2 F Temperature Source Oral Oral Pulse Rate 104 H 100 Respiratory Rate 22 H 22 H Respiratory Effort Short of Breath Accessory Muscle Use Pursed Lip Respiratory Depth Deep Respiratory Pattern Tachypnea Blood Pressure 144/82 H 144/82 H Blood Pressure Mean 102 102 Pulse Ox 97 96 Oxygen Delivery Method Room Air Room Air Room Air Oxygen Flow Rate (L/min) 07/10/24 01:41 07/10/24 02:08 07/10/24 02:11 Temperature 98.1 F Temperature Source Oral Pulse Rate 93 109 H 101 H Respiratory Rate 22 H 19 H 17 Respiratory Effort Respiratory Depth Respiratory Pattern Tachypnea Blood Pressure 156/83 H 156/83 H Blood Pressure Mean 107 107 Pulse Ox 95 95 Oxygen Delivery Method Room Air Oxygen Flow Rate (L/min) 07/10/24 02:13 07/10/24 03:00 Temperature 98.7 F Temperature Source Oral Pulse Rate 105 H Respiratory Rate 17 Respiratory Effort Respiratory Depth Respiratory Pattern Blood Pressure 138/83 H Blood Pressure Mean 101 Pulse Ox 96 96 Oxygen Delivery Method Nasal Cannula Nasal Cannula Oxygen Flow Rate (L/min) 2 2 Weight Weight: 135 lb 6.4 oz Body Mass Index (BMI) 19.4 Physical Exam Const alert and oriented x3 HEENT normocephalic Eyes PERRL Neck no lymphadenopathy Resp Resp Narrative: Barrel chest, increased respiratory effort, bilateral rhonchi present, tachypnea Cardio regular rate and regular rhythm GI normal to inspection, nondistended, normoactive bowel sounds Extremity Extremity Narrative: Bilateral pedal edema present Neuro oriented x3, CN's II-XII intact bilaterally, moves all extremities and no focal motor deficits Results Medical Records Data Attestation: I reviewed the patient's medical records Lab / Micro Data Attestation: I reviewed the patient's lab results. 07/10/24 01:47 07/10/24 01:47 Labs: Laboratory Results - last 24 hr 07/10/24 01:47: WBC 12.4 H, RBC 4.10 L, Hgb 11.9 L, Hct 36.0 L, MCV 87.8, MCH 29.0, MCHC 33.1, RDW Std Deviation 43.9, RDW Coeff of Pam 13.7, Plt Count 476 H,MPV 8.3, Immature Gran % (Auto) 0.400, Neut % (Auto) 67.4, Lymph % (Auto) 18.9 L, Muhlenberg % (Auto) 9.0, Eos % (Auto) 3.3, Baso % (Auto) 1.0, Absolute Neuts (auto) 8.4 H, Absolute Lymphs (auto) 2.34, Nucleated RBC % 0, Sodium 129 L, Potassium 4.0, Chloride 90 L, Carbon Dioxide 26.0, Anion Gap 13, BUN 15, Creatinine 0.62 L, Estim Creat Clear Calc 107.31, Est GFR (MDRD) Non-Af 108, BUN/Creatinine Ratio23.8 H, Glucose 85, Calcium 9.3, Magnesium 2.0, NT pro BNP II 258 Imaging Radiology Impression Chest X-Ray 07/10/24 02:20 IMPRESSION: No evidence of acute disease. Reading Location: [id number] Assessment & Plan Assessment/Plan (1) Acute exacerbation of chronic obstructive pulmonary disease: PLAN: Plan 63-year-old man with history of COPD, prior lung abscess, SVT, chronic alcohol use chronic smoking presents to ED with concerns regarding shortness of breath. He has increased respiratory rate and a bilateral wheezes and could be a possible AECOPD, however does not qualify for antibiotic therapy at this time. Will continue steroids and monitoring overnight to assess for response. #Shortness of breath - Likely has a component of reactive airway disease along with chronic bronchitis - Continue albuterol ventilation for now and methylprednisone with taper - No need for antibiotics at this time - Ad[facility] to [facility] #COPD with history of lung abscess - Chronic bronchitis with mixed simple and mucopurulent - Last FEV1 was 25% and maintained on triple therapy with Advair and Spiriva - Follows with outpatient pulmonology - Previously had lung abscess that has resolved with Vanco and Zosyn for 4 weeksfollowed by p.Regan Pittman Flagceleste for months #Hyponatremia - Sodium on admission is 129 - Will evaluate LFTs and also serum albumin levels - He is volume overloaded right now also continues to drink alcohol and smoke #SVT - Spontaneously converted to sinus rhythm - Follows up with cardiology - Continue metoprolol #Hypertension - Continue losartan #Alcohol abuse - Continue to drink 3-4 beers at this time #Nicotine abuse - Smokes 4 to 5 cigarettes daily #History of vasectomy, colonoscopy, appendectomy, colon polyps - Stable at this time #DVT prophylaxis - Low low risk at this time - Encourage mobilization 07/10/24 4967 <Electronically signed by Jonah Aguilar MD> Cosigner Signature (if applicable): CC: Dr. Jonah Aguilar MD; Dr. Xavi Fortune MD~ Signed [facility] Work Phone: 1(954) 304-397605-17-2025 Evaluation note* Diagnosis Onset Date Resolution Status Admit Date Acute exacerbation of chroni c obstructive pulmonary disease inactive 2024 4:07am Anemia acute August 23 2:53pm Dysgeusia acute August 23 2:53pm Weight loss acute August 23 2:53pm Eosinophils increased acute Aug 1:05pm COPD (chronic obstructive pulmonary disease) chronic August 31 1:05pm Nicotine abuse chronic August 31, 2024 1:05pm COPD (chronic obstructive pulmonary disease) chronic September 22 7:54am [facility] Work Phone: [phone]) 453-653805-17-2025 Radiology Diagnostic study [facility]04-16-2025 Miscellaneous Notes* HH SN Agency DC - Joseline Marroquin RN - 06/09/2024 12:09 PM EDT SITUATION: [facility] agency discharge visit completed today. only patient present during today's visit. patient reports the following: Allergies--reviewed Medications--reviewed current medications Falls--None BACKGROUND: Reason for Home Care: COPD post pneumonia ASSESSMENT: SN greeted at door by no one. Upon entrance patient found in chair Patient appears in no acute distress. Patient/CG concerns verbalized today: pt feels that he is not gaining weight even though he has been eating better Vitals (see flow sheet for details): stable SN findings today: Pt fully dressed today, reports that he still has low evergy but has been up anddoing small things around the house. SN inquired about pulmonary rehab and pt has not heard anythign yet, he declined to have SN make a phone call to follow up. SN instructed pt to call pulmonogist if he does not hear anything in the next week. He verbalizes that he will. Pt continues to have a somewhat moist cough but has not been coughing up anything substantial, lungs are clear with good aeration today. Pt reports that his appetite has been fairly good and he has been taking fluids pretty well. See intervention summary for education details and any skills performed. Specific SN discharge instructions: Monitor your self for increased shortness of breath, coughing up larger amounts of sputum or if it is very thick, yellow or greeen in color. Call your Dr promptly if these sx occur to try to prevent a rehospitalization. Patient encouraged to take all medication as ordered, eat a well-balanced diet and follow up with all physician appointments. NOMNC: Not required per insurance Discharged due to Goals met. Patient discharged from Home Care to: self-care, family support and chronic care clinic RECOMMENDATION: Additional follow ups recommended: None Patient to follow up with Dr. Fortune for additional medical questions/concerns. [facility] Patient's home Note* [facility] Agency Joseline Parmar RN - 06/09/2024 12:09 PM EDT SITUATION: [facility] agency discharge visit completed today. only patient present during today's visit. patient reports the following: Allergies--reviewed Medications--reviewed current medications Falls--None BACKGROUND: Reason for Home Care: COPD post pneumonia ASSESSMENT: SN greeted at door by no one. Upon entrance patient found in chair Patient appears in no acute distress. Patient/CG concerns verbalized today: pt feels that he is not gaining weight even though he has been eating better Vitals (see flow sheet for details): stable SN findings today: Pt fully dressed today, reports that he still has low evergy but has been up anddoing small things around the house. SN inquired about pulmonary rehab and pt has not heard anythign yet, he declined to have SN make a phone call to follow up. SN instructed pt to call pulmonogist if he does not hear anything in the next week. He verbalizes that he will. Pt continues to have a somewhat moist cough but has not been coughing up anything substantial, lungs are clear with good aeration today. Pt reports that his appetite has been fairly good and he has been taking fluids pretty well. See intervention summary for education details and any skills performed. Specific SN discharge instructions: Monitor your self for increased shortness of breath, coughing up larger amounts of sputum or if it is very thick, yellow or greeen in color. Call your Dr promptly if these sx occur to try to prevent a rehospitalization. Patient encouraged to take all medication as ordered, eat a well-balanced diet and follow up with all physician appointments. NOMNC: Not required per insurance Discharged due to Goals met. Patient discharged from Home Care to: self-care, family support and chronic care clinic RECOMMENDATION: Additional follow ups recommended: None Patient to follow up with Dr. Fortune for additional medical questions/concerns. [facility] Work Phone: [phone]) 284-704104-09-2025 Miscellaneous Notes* SN Routine - Joseline Marroquin RN - 06/02/2024 2:14 PM EDT SITUATION: Prison routine visit completed today. only patient present during today's visit. patient reports the following: Allergies--reviewed Medications--reviewed current medications Falls--None BACKGROUND: Reason for Home Care: COPD, post pneumonia with weakness and appetite issues after hospital ASSESSMENT: SN greeted at door by no one. Upon entrance patient found in chair Patient appears in no acute distress. Patient/CG concerns verbalized today: no new concerns Vitals (see flow sheet for details): stable SN findings today: Pt sitting in recliner, he states that he is tired today but is feeling pretty good. He denies any changes in breathing patterns or sputum production. Lungs are clear today with good aeration. Pt reports that he saw primary Dr and pulmonarologist this week and no changes made. Jasons report that Dr Fortune did take some Xrays of his back. He reports that he has been using the walker when his back is really bothering him and this does help. He states that R knee is getting stronger also. Appetite, overall, is improved. Pt reports that some days are good, some days not so good. Pt reports that PCP is recommending pulmonary rehab and this is in process. SN encouraged pt about this as ways to both get out of the house and continue to work on endurance and management of his COPD.Pt reports that shortness of breath seems to be a little better with his daily activities. He has not been wearing the oxygen much at all during the day. See intervention summary for education details. Patient demonstrated a need for further skilled SN services for chronic disease management & education. Current Discharge plan: self-care and family support RECOMMENDATION: Next visit to focus on (be specific): agency dc documented [facility] Patient's home Note* SN Routine - Joseline Marroquin RN - 06/02/2024 2:14 PM EDT SITUATION: Prison routine visit completed today. only patient present during today's visit. patient reports the following: Allergies--reviewed Medications--reviewed current medications Falls--None BACKGROUND: Reason for Home Care: COPD, post pneumonia with weakness and appetite issues after hospital ASSESSMENT: SN greeted at door by no one. Upon entrance patient found in chair Patient appears in no acute distress. Patient/CG concerns verbalized today: no new concerns Vitals (see flow sheet for details): stable SN findings today: Pt sitting in recliner, he states that he is tired today but is feeling pretty good. He denies any changes in breathing patterns or sputum production. Lungs are clear today with good aeration. Pt reports that he saw primary Dr and pulmonarologist this week and no changes made. Nessa report that Dr Fortune did take some Xrays of his back. He reports that he has been using the walker when his back is really bothering him and this does help. He states that R knee is getting stronger also. Appetite, overall, is improved. Pt reports that some days are good, some days not so good. Pt reports that PCP is recommending pulmonary rehab and this is in process. SN encouraged pt about this as ways to both get out of the house and continue to work on endurance and management of his COPD.Pt reports that shortness of breath seems to be a little better with his daily activities. He has not been wearing the oxygen much at all during the day. See intervention summary for education details. Patient demonstrated a need for further skilled SN services for chronic disease management & education. Current Discharge plan: self-care and family support RECOMMENDATION: Next visit to focus on (be specific): agency dc [facility] Work Phone: [phone]) 336-549904-09-2025 Radiology Diagnostic [facility]04-04-2025 Miscellaneous Notes* PT DISCHARGE - Woody Armas, PT - 05/28/2024 12:55 PM EDT SITUATION: only patient present during today's visit. patient reports the following since the last homecare visit: medications/allergies--no changes, no fall. patient reports he is feeling overall well today and states he has stopped wearing his oxygen during the day unless he feels he is SOB. BACKGROUND: Diagnoses (reason for Home Care): Supraventricular tachycardia, unspecified Weight Bearing/Precaution Changes: no changes ASSESSMENT: Focus of visit: DC from home P.T. Patient has updated standing and seated HEP. Patient primary limited by pain in his knee and back. Patient is completing HEP as able and is prepared for P.T. DC. Physical therapy discharged: goals achieved. Functional performance at discharge - bed mobility independent, transfers independent, ambulation independent and stairs independent. Plan of care, goals, and discharge reviewed and agreed upon with patient and/or caregiver. RECOMMENDATION: Patient discharged from PT and is active with SN. Instructions to include:home exercise program as directed See intervention summary for intervention/education details. documented in this encounterOhio[facility] Patient's home Note* PT DISCHARGE - Woody Armas PT - 05/28/2024 12:55 PM EDT SITUATION: only patient present during today's visit. patient reports the following since the last homecare visit: medications/allergies--no changes, no fall. patient reports he is feeling overall well today and states he has stopped wearing his oxygen during the day unless he feels he is SOB. BACKGROUND: Diagnoses (reason for Home Care): Supraventricular tachycardia, unspecified Weight Bearing/Precaution Changes: no changes ASSESSMENT: Focus of visit: DC from home P.T. Patient has updated standing and seated HEP. Patient primary limited by pain in his knee and back. Patient is completing HEP as able and is prepared for P.T. DC. Physical therapy discharged: goals achieved. Functional performance at discharge - bed mobility independent, transfers independent, ambulation independent and stairs independent. Plan of care, goals, and discharge reviewed and agreed upon with patient and/or caregiver. RECOMMENDATION: Patient discharged from PT and is active with SN. Instructions to include:home exercise program as directed See intervention summary for intervention/education details. [facility] Work Phone: [phone]) 371-415204-03-2025 Miscellaneous Notes* SN Routine - Joseline Marroquin RN - 05/27/2024 3:21 PM EDT SITUATION: Prison routine visit completed today. only patient present during today's visit. patient reports the following: Allergies--reviewed Medications--reviewed current medications Falls--None BACKGROUND: Reason for Home Care: COPD exacerbation, new onset SVT ASSESSMENT: SN greeted at door by no one. Upon entrance patient found in chair Patient appears in no acute distress. Patient/CG concerns verbalized today: no new concerns Vitals (see flow sheet for details): stable SN findings today: Pt sitting in recliner, he is fully dressed today and states that he spent some time sitting on the back porch today. He also took a sort drive (<mile) to the corner store to buy lunch. This is a great improvment and pt even appears to be in better spirits. He reports that he saw stereoplotter operator yesterday and losartan was discontinued. BP still on the low side today, Pt does have a home BP monitor and will have his assist him with monitoring at home. Pt scheduled to follow up with cardiology in November. Pt has been able to go for periods during the day without the oxygen, he is not wearing it during SN vs and pulse ox is 98%. Discussed pulmonary rehab and pt is not sure about this, wants to take it slow and has increased his activity level since last SN vs. See intervention summary for education details. Patient demonstrated a need for further skilled SN services for chronic disease management & education. Current Discharge plan: self-care and family support RECOMMENDATION: Next visit to focus on (be specific): Activity level and tolerance? CP assessment, consider dc nextvs. documented in this encounterOhio[facility]04-03-2025 Patient's home Note* SN Routine - Joseline Marroquin RN - 05/27/2024 3:21 PM EDT SITUATION: Prison routine visit completed today. only patient present during today's visit. patient reports the following: Allergies--reviewed Medications--reviewed current medications Falls--None BACKGROUND: Reason for Home Care: COPD exacerbation, new onset SVT ASSESSMENT: SN greeted at door by no one. Upon entrance patient found in chair Patient appears in no acute distress. Patient/CG concerns verbalized today: no new concerns Vitals (see flow sheet for details): stable SN findings today: Pt sitting in recliner, he is fully dressed today and states that he spent some time sitting on the back porch today. He also took a sort drive ( See intervention summary for education details. Patient demonstrated a need for further skilled SN services for chronic disease management & education. Current Discharge plan: self-care and family support RECOMMENDATION: Next visit to focus on (be specific): Activity level and tolerance? CP assessment, consider dc nextvs. [facility] Work Phone: 1([phone]) 586-782204-02-2025 Evaluation note* Diagnosis Onset Date Resolution Status Admit Date Anemia acute May 26 1:20pm Lung abscess acute May 26, 025 1:20pm Hypertension chronic May 26 025 1:20pm SVT (supraventricular tachycardia) chronic May 26, 2024 1:20pm Lung abscess acute May 31 025 8:30am COPD (chronic obstructive pulmonary disease) chronic May 31 8:30am Nicotine abuse chronic May 31, 2024 8:30am Acute exacerbation of chroni c obstructive pulmonary disease inactive Ma 2024 4:07am Anemia acute August 23 2:53pm Dysgeusia acute August 23 2:53pm Weight loss acute August 23 2:53pm Eosinophils increased acute Aug 1:05pm COPD (chronic obstructive pulmonary disease) chronic August 31 1:05pm Nicotine abuse chronic August 31, 2024 1:05pm COPD (chronic obstructive pulmonary disease) chronic September 22 7:54am [facility] Work Phone: 1(461) 574-363003-28-2025 Miscellaneous Notes* PT ROUTINE/REASSESSMENT/RECERT/CASE MGMT - Woody Armas, PT - 05/21/2024 1:35 PM EDT SITUATION: only patient present during today's visit. patient reports the following since the last homecare visit: medications/allergies--no changes, no fall. patient reports he is starting to get outside of his home and inproved his standing tolerance. BACKGROUND: Diagnoses (reason for Home Care): Supraventricular tachycardia, unspecified. Weight Bearing/Precaution Changes: no changes ASSESSMENT: Focus of visit Patient reviewed standing HEP. Patient notes improved drive to perform functional tasks including ambulation to his garage and standing tolerance. Patient continues to have difficulty with nutrition and notes 1 ensure so far this date. Patient encouraged to improve hydration along with increasing carlories. P.T. limited due to increased HR during P.T. session. Patient states his back pain was the primary limiter when on his feet. Patient limited in P.T. participation. Plan of care, goals, and visit frequency reviewed and agreed upon with patient and/or caregiver. Current Discharge Plan: family support Anticipate discharge by 05/29/24 RECOMMENDATION: Next visit to focus on transfers, ambulation, DC next visit See intervention summary for intervention/education details. documented in this encounterOhio[facility]03-28-2025 Patient's home Note* PT ROUTINE/REASSESSMENT/RECERT/CASE MGMT - Woody Armas PT - 05/21/2024 1:35 PM EDT SITUATION: only patient present during today's visit. patient reports the following since the last homecare visit: medications/allergies--no changes, no fall. patient reports he is starting to get outside of his home and inproved his standing tolerance. BACKGROUND: Diagnoses (reason for Home Care): Supraventricular tachycardia, unspecified. Weight Bearing/Precaution Changes: no changes ASSESSMENT: Focus of visit Patient reviewed standing HEP. Patient notes improved drive to perform functional tasks including ambulation to his garage and standing tolerance. Patient continues to have difficulty with nutrition and notes 1 ensure so far this date. Patient encouraged to improve hydration along with increasing carlories. P.T. limited due to increased HR during P.T. session. Patient states his back pain was the primary limiter when on his feet. Patient limited in P.T. participation. Plan of care, goals, and visit frequency reviewed and agreed upon with patient and/or caregiver. Current Discharge Plan: family support Anticipate discharge by 05/29/24 RECOMMENDATION: Next visit to focus on transfers, ambulation, DC next visit See intervention summary for intervention/education details. [facility] Work Phone: 1([phone]) 539-458503-26-2025 Miscellaneous Notes* SN Routine - Joseline Marroquin RN - 05/19/2024 3:26 PM EDT SITUATION: Prison routine visit completed today. only patient present during today's visit. patient reports the following: Allergies--reviewed Medications--reviewed current medications Falls--None BACKGROUND: Reason for Home Care: COPD exacerbation ASSESSMENT: SN greeted at door by no one. Upon entrance patient found in chair Patient appears in no acute distress. Patient/CG concerns verbalized today: no new concerns, pt still has a very poor food intake, bad taste in his mouth, not sleeping well and feeling weak. Vitals (see flow sheet for details): stable SN findings today: Pt sitting in recliner, same complaints. He states that he is only able to eat afew bites and food continues to taste bad. SN researched some home remedies and suggested lemon candy before meals, rinsing with salt water or baking soda water before eating. Pt states that he triedlemon/livia tea but it does not taste good. He has been trying to eat soups but states that he is tired of them. He does report that he has been trying to do a little more but still tires very easily. Cough is not as moist this week and lungs are clear. He continues to use the oxygen. R knee pain is improved but pt states that the knee is weak, SN notes that it is still slighty earmer to touch but no redness or swelling is noted today, pt is finished with the colchicine. SN reinforced instructions on pacing activities, encouraged activity as tolerated. See intervention summary for education details. Patient demonstrated a need for further skilled SN services for chronic disease management & education. Current Discharge plan: self-care, family support and chronic care clinic RECOMMENDATION: Next visit to focus on (be specific): oral inake improved? CP assessment and instruction, what is therapy plan and discuss OP rehab with pt. documented in this encounterOhio[facility]03-26-2025 Patient's home Note* SN Routine - Joseline Marroquin RN - 05/19/2024 3:26 PM EDT SITUATION: Prison routine visit completed today. only patient present during today's visit. patient reports the following: Allergies--reviewed Medications--reviewed current medications Falls--None BACKGROUND: Reason for Home Care: COPD exacerbation ASSESSMENT: SN greeted at door by no one. Upon entrance patient found in chair Patient appears in no acute distress. Patient/CG concerns verbalized today: no new concerns, pt still has a very poor food intake, bad taste in his mouth, not sleeping well and feeling weak. Vitals (see flow sheet for details): stable SN findings today: Pt sitting in recliner, same complaints. He states that he is only able to eat afew bites and food continues to taste bad. SN researched some home remedies and suggested lemon candy before meals, rinsing with salt water or baking soda water before eating. Pt states that he triedlemon/livia tea but it does not taste good. He has been trying to eat soups but states that he is tired of them. He does report that he has been trying to do a little more but still tires very easily. Cough is not as moist this week and lungs are clear. He continues to use the oxygen. R knee pain is improved but pt states that the knee is weak, SN notes that it is still slighty earmer to touch but no redness or swelling is noted today, pt is finished with the colchicine. SN reinforced instructions on pacing activities, encouraged activity as tolerated. See intervention summary for education details. Patient demonstrated a need for further skilled SN services for chronic disease management & education. Current Discharge plan: self-care, family support and chronic care clinic RECOMMENDATION: Next visit to focus on (be specific): oral inake improved? CP assessment and instruction, what is therapy plan and discuss OP rehab with pt. [facility] Work Phone: 1(461) 808-578003-21-2025 Miscellaneous Notes* PT ROUTINE/REASSESSMENT/RECERT/CASE MGMT - Woody Armas, PT - 05/14/2024 1:50 PM EDT SITUATION: only patient present during today's visit. patient reports the following since the last homecare visit: medications/allergies--no changes, no fall. patient reports he continues to have decreased appetite however has improved on his knee pain and feels the gout has resolved this week. Patient reports he has resumed exercises however not consistently. BACKGROUND: Diagnoses (reason for Home Care): Supraventricular tachycardia, unspecified. Weight Bearing/Precaution Changes: no changes ASSESSMENT: Focus of visit P.T. visit completed patient limited in standing tolerance, HEP and notes decreased ability to consume calories noting approx 300 calories so far this date. Patient educated on importance of nutrition to improve mobility and build endurance. Patient demonstrates understanding howeverdifficulty with compliance. Plan of care, goals, and visit frequency reviewed and agreed upon with patient and/or caregiver. Current Discharge Plan: independent with home exercise program Anticipate discharge by 05/29/24 RECOMMENDATION: Next visit to focus on DC from home P.T. See intervention summary for intervention/education details. documented in this encounterOhio[facility]03-21-2025 Patient's home Note* PT ROUTINE/REASSESSMENT/RECERT/CASE MGMT - Woody Armas, PT - 05/14/2024 1:50 PM EDT SITUATION: only patient present during today's visit. patient reports the following since the last homecare visit: medications/allergies--no changes, no fall. patient reports he continues to have decreased appetite however has improved on his knee pain and feels the gout has resolved this week. Patient reports he has resumed exercises however not consistently. BACKGROUND: Diagnoses (reason for Home Care): Supraventricular tachycardia, unspecified. Weight Bearing/Precaution Changes: no changes ASSESSMENT: Focus of visit P.T. visit completed patient limited in standing tolerance, HEP and notes decreased ability to consume calories noting approx 300 calories so far this date. Patient educated on importance of nutrition to improve mobility and build endurance. Patient demonstrates understanding howeverdifficulty with compliance. Plan of care, goals, and visit frequency reviewed and agreed upon with patient and/or caregiver. Current Discharge Plan: independent with home exercise program Anticipate discharge by 05/29/24 RECOMMENDATION: Next visit to focus on DC from home P.T. See intervention summary for intervention/education details. [facility] Work Phone: [phone]) 553-909603-19-2025 Miscellaneous Notes* HH SN Routine - Joseline Marroquin RN - 05/12/2024 3:31 PM EDT SITUATION: Prison routine visit completed today. only patient present during today's visit. patient reports the following: Allergies--reviewed Medications--reviewed current medications Falls--None BACKGROUND: Reason for Home Care: COPD ASSESSMENT: SN greeted at door by no one. Upon entrance patient found in chair Patient appears in no acute distress. Patient/CG concerns verbalized today: pt verbalizes that he still cannot eat because nothing tastesright and he takes 1-2 bites of something and then cannot eat anymore. He also feels that he has indigestion all of the time. Vitals (see flow sheet for details): stable SN findings today: Pt sitting in recliner, he reports that his main concern now is that he still has no appetite and he is so weak that he feels that he cannot do anything, SN offered some suggestions o foods such as scrambled eggs, small snack type things like peanut butter and cheese, protein shakes, ice cream. Pt reports that he has tried all of thiese things without and luck. SN also questions if depression is a part of this as well but pt states that he feels that it is mostly related to weakness. Pt was in [place] ED on 05/06 and was dx/d with gout of the r knee and is on Colchicine for another week. He has been having some diarrhear with this, 2-4 times a day. SN did contact Dr Fortune's office with an update including poor oral intake, poor sleeping, diarrhea and asked for any additional suggestions. Verbal support and encouragement also provided to pt. See intervention summary for education details. Patient demonstrated a need for further skilled SN services for chronic disease management & education, medication education and safety. Current Discharge plan: self-care and family support RECOMMENDATION: Next visit to focus on (be specific): CP assessment, is R knee pain resolved?, appetite and oral intake, bowels documented in this encounterOhio[facility]03-19-2025 Patient's home Note* SN Routine - Joseline Marroquin RN - 05/12/2024 3:31 PM EDT SITUATION: Prison routine visit completed today. only patient present during today's visit. patient reports the following: Allergies--reviewed Medications--reviewed current medications Falls--None BACKGROUND: Reason for Home Care: COPD ASSESSMENT: SN greeted at door by no one. Upon entrance patient found in chair Patient appears in no acute distress. Patient/CG concerns verbalized today: pt verbalizes that he still cannot eat because nothing tastesright and he takes 1-2 bites of something and then cannot eat anymore. He also feels that he has indigestion all of the time. Vitals (see flow sheet for details): stable SN findings today: Pt sitting in recliner, he reports that his main concern now is that he still has no appetite and he is so weak that he feels that he cannot do anything, SN offered some suggestions o foods such as scrambled eggs, small snack type things like peanut butter and cheese, protein shakes, ice cream. Pt reports that he has tried all of thiese things without and luck. SN also questions if depression is a part of this as well but pt states that he feels that it is mostly related to weakness. Pt was in [place] ED on 05/06 and was dx/d with gout of the r knee and is on Colchicine for another week. He has been having some diarrhear with this, 2-4 times a day. SN did contact Dr Fortune's office with an update including poor oral intake, poor sleeping, diarrhea and asked for any additional suggestions. Verbal support and encouragement also provided to pt. See intervention summary for education details. Patient demonstrated a need for further skilled SN services for chronic disease management & education, medication education and safety. Current Discharge plan: self-care and family support RECOMMENDATION: Next visit to focus on (be specific): CP assessment, is R knee pain resolved?, appetite and oral intake, bowels [facility] Work Phone: 1([phone]) 540-365903-17-2025 Miscellaneous Notes* CARE COORDINATION - Cally Park LSW - 05/10/2024 3:30 PM EDT 05/10/24 3:36 PM - 3:43 PM TOWER EQUIPMENT INSTALLER called the pt.'s regarding how the pt. is doing and regarding going into [facility] for Inpatient Rehab. She stated that the pt.'s knee was feeling better and they do not want Inpatient Rehab at this time. The pt.'s stated that the pt. is not eating and she stated he drinks Ensure. She stated that the pt. thinks his loss of appetite is from his meds. TOWER EQUIPMENT INSTALLER asked the pt's if the pt. is Depressed and she feels he is but stated he was in better spirits over the weekend. TOWER EQUIPMENT INSTALLER discussed counseling and she does not feel he will do counseling. She stated she feels the PT is helping and hoping the pt. will be able to get about himself and get himself to appointments, etc. TOWER EQUIPMENT INSTALLER asked the pt.'s of she called the about the pt. not eating and she stated she was but Mondays are busy and hard to get through. 05/10/24 3:44 PM - 3:48 PM TOWER EQUIPMENT INSTALLER called Dr. Xavi Fortune and was on hold and message stated they were getting a high volume of calls. 05/10/24 3:57 PM TOWER EQUIPMENT INSTALLER called Blaze Estes RN Case Manager regarding phone call with the pt.'s wifeand that the is not etaing but drinking Ensure. TOWER EQUIPMENT INSTALLER stated that the pt.'s stated the pt. thinks his loss of appetite is from the meds he is taking. documented in this encounterOhio[facility]03-17-2025 Patient's home Note* CARE COORDINATION - Cally Park LSW - 05/10/2024 3:30 PM EDT 05/10/24 3:36 PM - 3:43 PM TOWER EQUIPMENT INSTALLER called the pt.'s regarding how the pt. is doing and regarding going into [facility] for Inpatient Rehab. She stated that the pt.'s knee was feeling better and they do not want Inpatient Rehab at this time. The pt.'s stated that the pt. is not eating and she stated he drinks Ensure. She stated that the pt. thinks his loss of appetite is from his meds. TOWER EQUIPMENT INSTALLER asked the pt's if the pt. is Depressed and she feels he is but stated he was in better spirits over the weekend. TOWER EQUIPMENT INSTALLER discussed counseling and she does not feel he will do counseling. She stated she feels the PT is helping and hoping the pt. will be able to get about himself and get himself to appointments, etc. TOWER EQUIPMENT INSTALLER asked the pt.'s of she called the DrNixon about the pt. not eating and she stated she was but Mondays are busy and hard to get through. 05/10/24 3:44 PM - 3:48 PM TOWER EQUIPMENT INSTALLER called Dr. Xavi Fortune and was on hold and message stated they were getting a high volume of calls. 05/10/24 3:57 PM TOWER EQUIPMENT INSTALLER called Blaze Estes RN Case Manager regarding phone call with the pt.'s wifeand that the is not etaing but drinking Ensure. TOWER EQUIPMENT INSTALLER stated that the pt.'s stated the pt. thinks his loss of appetite is from the meds he is taking. [facility] Work Phone: 1([phone]) 121-619803-14-2025 Miscellaneous Notes* PT ROUTINE/REASSESSMENT/RECERT/CASE MGMT - Woody Armas, PT - 05/07/2024 1:40 PM EDT SITUATION: only patient present during today's visit. patient reports the following since the last homecare visit: medications/allergies--no changes, fall. patient reports he has noted some improvement in his Rknee since his ED visit. BACKGROUND: Diagnoses (reason for Home Care): Supraventricular tachycardia, unspecified Weight Bearing/Precaution Changes: no changes ASSESSMENT: Focus of visit Patient limited in standing tolerance, ambulation due to gout. Patient reports he was in ED on 05/05 where he was dx with gout. Patient has been limited in ambulation distance since hisED visit and notes fall near his chair with no harm. Patient demonstrates need for further home P.T. to focus on standing tolerance, ambulation and education on gout management. Plan of care, goals, and visit frequency reviewed and agreed upon with patient and/or caregiver. Current Discharge Plan: family support Anticipate discharge by 05/29/24 RECOMMENDATION: Next visit to focus on transfers, ambulation, assess knee pain See intervention summary for intervention/education details. documented in this encounterOhio[facility]03-14-2025 Patient's home Note* PT ROUTINE/REASSESSMENT/RECERT/CASE MGMT - Woody Armas PT - 05/07/2024 1:40 PM EDT SITUATION: only patient present during today's visit. patient reports the following since the last homecare visit: medications/allergies--no changes, fall. patient reports he has noted some improvement in his Rknee since his ED visit. BACKGROUND: Diagnoses (reason for Home Care): Supraventricular tachycardia, unspecified Weight Bearing/Precaution Changes: no changes ASSESSMENT: Focus of visit Patient limited in standing tolerance, ambulation due to gout. Patient reports he was in ED on 05/05 where he was dx with gout. Patient has been limited in ambulation distance since hisED visit and notes fall near his chair with no harm. Patient demonstrates need for further home P.T. to focus on standing tolerance, ambulation and education on gout management. Plan of care, goals, and visit frequency reviewed and agreed upon with patient and/or caregiver. Current Discharge Plan: family support Anticipate discharge by 05/29/24 RECOMMENDATION: Next visit to focus on transfers, ambulation, assess knee pain See intervention summary for intervention/education details. [facility] Work Phone: [phone]) 991-156303-14-2025 Miscellaneous Notes* CARE COORDINATION - Cally Park LSW - 05/07/2024 1:30 PM EDT 05/07/24 1:39 PM - 1:44 PM TOWER EQUIPMENT INSTALLER called the pt.'s Tiana regarding a rehab stay for the pt. The pt.'s stated she thinks the pt. got upset because he has Gout and was not gettiing about as well. TOWER EQUIPMENT INSTALLER asked the pt.'s if they were looking for a rehab stay jan Rehab facility or [facility]. She stated that [facility] has an Inpatient Rehab and they would like the pt. to go there if he went in for rehab. She stated that they are planning to talk more regarding this. She stated when the pt. was in the hospital in March. He did not qualiy to be admiited Inpatient Rehab there because he could walk over 300 ft. TOWER EQUIPMENT INSTALLER discussed more help in the home. She stated that he owns the home and he is not on Medicaid for PASSPORT. She stated the pt. was on short term discailityfrom work and has not applied for Social Security Disability. TOWER EQUIPMENT INSTALLER asked the pt.'s if she wouldlike TOWER EQUIPMENT INSTALLER to call the Inpatient Rehab in [facility] regarding possible admission from home. The pt.'s supportive of this so they can discuss this more. TOWER EQUIPMENT INSTALLER asked the pt.'s laquita Garcia was from her work and it was. 05/07/24 1:45 PM - 1:55 PM TOWER EQUIPMENT INSTALLER called [facility] Inpatient Rehab [phone] and spoke with Holly regarding the pt. getting admitted there from home Holly lookked up the pt.'s last hospital stay and stated that the pt. did not qualify due to walking over 300 ft. TOWER EQUIPMENT INSTALLER informed Holly that the pt. has [employer]. Holly stated that she could look into the pt. getting admitted from home. She stated t hat she would need PT and OT Evals. She stated she would need notes from therapy and the Dr. would have to have notes of why the pt. needs Inpatient Rehab. She discussed commercial insurances that are not Medicare are harder to get approval. TOWER EQUIPMENT INSTALLER thanked Holly for the information and will call her back if the pt. wants to look into being admitted for Rehab stay. 05/07/24 1:56 PM - 2:00 PM TOWER EQUIPMENT INSTALLER called the pt.'s Tiana back and was leaving her a message and she was calling TOWER EQUIPMENT INSTALLER back. TOWER EQUIPMENT INSTALLER spoke to the pt.'s regarding phone call TOWER EQUIPMENT INSTALLER had with Holly with [facility] Inpatient Rehab. TOWER EQUIPMENT INSTALLER stated the pt. would probably need another OT Eval. Thept.'s stated her and the pt. will discuss this over the weekend. She stated she would call LSWback on Friday. 05/07/24 2:00 PM TOWER EQUIPMENT INSTALLER called Blaze Estes RN Case Manager regarding phone calls made to the pt.'s and regarding the pt. possibly being admitted to Inpatient Rehab in [facility]. documented in this encounterOhiohealth [facility]03-14-2025 Patient's home Note* HH CARE COORDINATION - Cally Park LSW - 05/07/2024 1:30 PM EDT 05/07/24 1:39 PM - 1:44 PM TOWER EQUIPMENT INSTALLER called the pt.'s Tiana regarding a rehab stay for the pt. The pt.'s stated she thinks the pt. got upset because he has Gout and was not gettiing about as well. TOWER EQUIPMENT INSTALLER asked the pt.'s if they were looking for a rehab stay jan Rehab facility or [facility]. She stated that [facility] has an Inpatient Rehab and they would like the pt. to go there if he went in for rehab. She stated that they are planning to talk more regarding this. She stated when the pt. was in the hospital in March. He did not qualiy to be admiited Inpatient Rehab there because he could walk over 300 ft. TOWER EQUIPMENT INSTALLER discussed more help in the home. She stated that he owns the home and he is not on Medicaid for PASSPORT. She stated the pt. was on short term discailityfrom work and has not applied for Social Security Disability. TOWER EQUIPMENT INSTALLER asked the pt.'s if she wouldlike TOWER EQUIPMENT INSTALLER to call the Inpatient Rehab in [facility] regarding possible admission from home. The pt.'s supportive of this so they can discuss this more. TOWER EQUIPMENT INSTALLER asked the pt.'s laquita Garcia was from her work and it was. 05/07/24 1:45 PM - 1:55 PM TOWER EQUIPMENT INSTALLER called [facility] Inpatient Rehab [phone] and spoke with Holly regarding the pt. getting admitted there from home Holly lookked up the pt.'s last hospital stay and stated that the pt. did not qualify due to walking over 300 ft. TOWER EQUIPMENT INSTALLER informed Holly that the pt. has [employer]. Holly stated that she could look into the pt. getting admitted from home. She stated t hat she would need PT and OT Evals. She stated she would need notes from therapy and the Dr. would have to have notes of why the pt. needs Inpatient Rehab. She discussed commercial insurances that are not Medicare are harder to get approval. TOWER EQUIPMENT INSTALLER thanked Holly for the information and will call her back if the pt. wants to look into being admitted for Rehab stay. 05/07/24 1:56 PM - 2:00 PM TOWER EQUIPMENT INSTALLER called the pt.'s Tiana han and was leaving her a message and she was calling TOWER EQUIPMENT INSTALLER back. TOWER EQUIPMENT INSTALLER spoke to the pt.'s regarding phone call TOWER EQUIPMENT INSTALLER had with Holly with [facility] Inpatient Rehab. TOWER EQUIPMENT INSTALLER stated the pt. would probably need another OT Eval. Thept.'s stated her and the pt. will discuss this over the weekend. She stated she would call KAIDENWback on Friday. 05/07/24 2:00 PM TOWER EQUIPMENT INSTALLER called Blaze Estes RN Case Manager regarding phone calls made to the pt.'s and regarding the pt. possibly being admitted to Inpatient Rehab in [facility]. [facility] Work Phone: 1([phone]) 411-679703-12-2025 NoteHNO ID: [id number] Author: MARTI TORRES APRN.BLOOD OR BLOOD BANK TECHNICIAN Service: ? Author Type: Nurse Practitioner Type: Progress Notes Filed: 05/05/2024 17:54 Note Text: Virtualist [facility] Note I have communicated my name and active licensure. The patient's identity and physical location were verified at the time of this visit. Either the patient or their legal factory representative has been informed of the risks and benefits of -- and alternatives to -- treatment through a remote evaluation and consents to proceed with the evaluation remotely. Subjective/Objective: Hx HTN, COPD Has OSH PCP [facility] nurse escalates for right knee swelling and pain Saw PCP last week, patient reports knee was not like this Spoke to nurse and patient with doximity video There is a large pocket of swelling/fluid right above knee Increased pain HR 107, normally in 80s Temp 99.5F No erythema or warmth Past medical history, past surgical history, family history and social history reviewed and updated as indicated in EMR. REVIEW OF SYSTEMS: Review of Systems VITAL SIGNS: (if available) There were no vitals taken for this visit. Physical Exam (if video visit was performed) Physical Exam Triage source: [facility] Home Care provider escalation: Was patient downgraded (i.e. disposition other than go to the ED was advised)? No Disposition: Patient instructed to go to the ED Assessment/Plan: ASSESSMENT/PLAN: 1. Pain and swelling of right knee - ICD9: 719.46, 719.06, ICD10: M25.561, M25.461 -Go to ER A total of 15 minutes was spent providing medical care using telemedicine. Mode of contact: Cometaer Video Call Signed in as Primary Virtualist, Secondary Virtualist, or [facility] Telehealth provider: Primary SIGNATURE: Marti Martino APRN.CNP PATIENT NAME: Aiden Ortiz DATE: May 05, 2024 [facility]03-12-2025 History of Present illness Narrative* Marti Torres APRN.CNP - 05/05/2024 5:51 PM EDT Virtualist [facility] Note I have communicated my name and active licensure. The patient's identity and physical location wereverified at the time of this visit. Either the patient or their legal factory representative has been informed of the risks and benefits of -- and alternatives to -- treatment through a remote evaluation andconsents to proceed with the evaluation remotely. Subjective/Objective: Hx HTN, COPD Has OSH PCP [facility] nurse escalates for right knee swelling and pain Saw PCP last week, patient reports knee was not like this Spoke to nurse and patient with doximity video There is a large pocket of swelling/fluid right above knee Increased pain HR 107, normally in 80s Temp 99.5F No erythema or warmth Past medical history, past surgical history, family history and social history reviewed and updatedas indicated in EMR. REVIEW OF SYSTEMS: Review of Systems VITAL SIGNS: (if available) There were no vitals taken for this visit. Physical Exam (if video visit was performed) Physical Exam Triage source: [facility] Home Care provider escalation: Was patient downgraded (i.e. disposition other than go to the ED was advised)? No Disposition: Patient instructed to go to the ED Assessment/Plan: ASSESSMENT/PLAN: 1. Pain and swelling of right knee - ICD9: 719.46, 719.06, ICD10: M25.561, M25.461 -Go to ER A total of 15 minutes was spent providing medical care using telemedicine. Mode of contact: Yieldr Head Rose Grower Video Call Signed in as Primary Virtualist, Secondary Virtualist, or [facility] Telehealth provider: Primary SIGNATURE: Marti Martino APRN.CNP PATIENT NAME: Aiden Ortiz DATE: May 05, 2024 documented in this encounterOhiohealth [facility]heastern Medical Center03-12-2025 Miscellaneous Notes* SN Routine - Mel Hines RN - 05/05/2024 5:12 PM EDT SITUATION: Prison routine visit completed today. only patient also present during today's visit. patient reports the following: Allergies--reviewed Medications--reviewed current medications. Pt saw ID today and reports he was taken off 1 of his ATB. When SN reviewed he reports he is unsure whether Monodox or Augmentin (reports it's the one I was taking 3x/day SN informed pt that, after reviewing medications, both ATB are prescribed BID , pt states well I don't know then and denies having written documentation of this visit. Falls--None DME-Reviewed BACKGROUND: Reason for Home Care: SVT, COPD ASSESSMENT: SN entered home per CG's instruction Patient appears in no acute distress. Patient/CG concerns verbalized today: New R knee pain - photo obtained and virtualist contacted as SN unable to reach PCP office on-call physician. Pt with low grade fever, tachycardia, tenderness with palpation of R knee, no warmth noted, no redness. Notable fluid assessed in R knee. Pt reports this has been ongoing for ~1 week. Virtualist recommending ED, called and made aware via voicemail. Vitals (see flow sheet for details): WDL except: Heart Rate: 107, T. 99.5 - virtualist aware. SN findings today: Pt lying in bed resting upon SN arrival, but reports that pain in R knee woke him up recently. He has felt fatigued today. Pt wearing 3L NC on SN arrival, SN decreased to 2L as perorders and pt O2 stable. Pt using ice to alleviate pain in R knee with little relief, he also took pain medication to help which was effective for a short time. Rhonchi noted in RLL, otherwise clear. Pt falls asleep during SN visit, but rouses to verbal stimuli. Pt reports he was taken off ATB d/t poor appetite - hopeful that after stopping this appetite will improve. Pt reports limited PO intakerecently. Plan of care reviewed with pt. See intervention summary for education details. Patient demonstrated a need for further skilled SN services for chronic disease management & education, medication education and safety. Current Discharge plan: family support RECOMMENDATION: Next visit to focus on (be specific): c/p check, COPD education and monitoring, did pt go to ED? How is knee pain? documented in this encounterOhiohealth [facility] Center03-12-2025 Patient's home Note* [facility] Routine - Mel Hines RN - 05/05/2024 5:12 PM EDT SITUATION: Prison routine visit completed today. only patient also present during today's visit. patient reports the following: Allergies--reviewed Medications--reviewed current medications. Pt saw ID today and reports he was taken off 1 of his ATB. When SN reviewed he reports he is unsure whether Monodox or Augmentin (reports it's the one I was taking 3x/day SN informed pt that, after reviewing medications, both ATB are prescribed BID , pt states well I don't know then and denies having written documentation of this visit. Falls--None DME-Reviewed BACKGROUND: Reason for Home Care: SVT, COPD ASSESSMENT: SN entered home per CG's instruction Patient appears in no acute distress. Patient/CG concerns verbalized today: New R knee pain - photo obtained and virtualist contacted as SN unable to reach PCP office on-call physician. Pt with low grade fever, tachycardia, tenderness with palpation of R knee, no warmth noted, no redness. Notable fluid assessed in R knee. Pt reports this has been ongoing for ~1 week. Virtualist recommending ED, called and made aware via voicemail. Vitals (see flow sheet for details): WDL except: Heart Rate: 107, T. 99.5 - virtualist aware. SN findings today: Pt lying in bed resting upon SN arrival, but reports that pain in R knee woke him up recently. He has felt fatigued today. Pt wearing 3L NC on SN arrival, SN decreased to 2L as perorders and pt O2 stable. Pt using ice to alleviate pain in R knee with little relief, he also took pain medication to help which was effective for a short time. Rhonchi noted in RLL, otherwise clear. Pt falls asleep during SN visit, but rouses to verbal stimuli. Pt reports he was taken off ATB d/t poor appetite - hopeful that after stopping this appetite will improve. Pt reports limited PO intakerecently. Plan of care reviewed with pt. See intervention summary for education details. Patient demonstrated a need for further skilled SN services for chronic disease management & education, medication education and safety. Current Discharge plan: family support RECOMMENDATION: Next visit to focus on (be specific): c/p check, COPD education and monitoring, did pt go to ED? How is knee pain? [facility] Work Phone: [phone]) [phone] Evaluation note* Diagnosis Onset Date Resolution Status Admit Date Lung abscess acute May 03, 2024 2:39pm COPD (chronic obstructive pulmonary disease) chronic May 03 025 2:39pm Nicotine abuse chronic April 2:39pm Dysgeusia acute May 24 3:01pm Weight loss acute May 24, 2 025 3:01pm Anemia acute May 26 1:20pm Lung abscess acute Loretta 2nd, 2 025 1:20pm Hypertension chronic May 26, 2 025 1:20pm SVT (supraventricular tachycardia) chronic May 26, 2024 1:20pm Lung abscess acute May 31, 2 025 8:30am COPD (chronic obstructive pulmonary disease) chronic May 31 8:30am Nicotine abuse chronic May 31, 2024 8:30am Acute exacerbation of chroni c obstructive pulmonary disease inactive Ma y 2024 4:07am Anemia acute August 23 2:53pm [facility] Work Phone: [phone]) 615-476303-10-2025 Evaluation note* Diagnosis Onset Date Resolution Status Admit Date Lung abscess acute May 03, 2024 2:39pm COPD (chronic obstructive pulmonary disease) chronic May 03, 2 025 2:39pm Nicotine abuse chronic April 2:39pm Dysgeusia acute May 24 3:01pm Weight loss acute May 24, 2 025 3:01pm Anemia acute May 26 1:20pm Lung abscess acute May 26, 2 025 1:20pm Hypertension chronic May 26, 2 025 1:20pm SVT (supraventricular tachycardia) chronic May 26, 2024 1:20pm Lung abscess acute May 31, 2 025 8:30am COPD (chronic obstructive pulmonary disease) chronic May 31 8:30am Nicotine abuse chronic May 31, 2024 8:30am Acute exacerbation of chroni c obstructive pulmonary disease inactive Ma y 2024 4:07am Anemia acute August 23 2:53pm Dysgeusia acute August 23 2:53pm Weight loss acute August 23 2:53pm [facility] Work Phone: [phone] Evaluation note* Diagnosis Onset Date Resolution Status Admit Date Lung abscess acute May 03, 2024 2:39pm COPD (chronic obstructive pulmonary disease) chronic May 03, 2 025 2:39pm Nicotine abuse chronic April 2:39pm Dysgeusia acute May 24 3:01pm Weight loss acute May 24, 2 025 3:01pm Anemia acute May 26 1:20pm Lung abscess acute May 26, 2 025 1:20pm Hypertension chronic May 26 2 025 1:20pm SVT (supraventricular tachycardia) chronic May 26, 2024 1:20pm Lung abscess acute May 31, 2 025 8:30am COPD (chronic obstructive pulmonary disease) chronic May 31 8:30am Nicotine abuse chronic May 31, 2024 8:30am Acute exacerbation of chroni c obstructive pulmonary disease inactive Ma y 2024 4:07am Anemia acute August 23 2:53pm Dysgeusia acute August 23 2:53pm Weight loss acute August 23 2:53pm Eosinophils increased acute Aug 1:05pm [facility] Work Phone: [phone]) [phone] Miscellaneous Notes* PT ROUTINE/REASSESSMENT/RECERT/CASE MGMT - Cinthya Poole PTA - 04/30/2024 2:01 PM EST SITUATION: only patient present during today's visit. patient reports the following since the last homecare visit: medications/allergies--no changes, no fall. patient reports back pain is increased today, has been exacerbated since which he attributes to long car ride to and from dr hoyos in [place]. Having difficulty coming to stand and walking. BACKGROUND: Diagnoses (reason for Home Care): Supraventricular tachycardia, unspecified. Past Medical History: COPD (chronic obstructive pulmonary disease) Mixed Hyperlipidemia Ibs (Irritable Bowel Syndrome) Cervicalgia Benign Non-Nodular Prostatic Hyperplasia Essential Hypertension Weight Bearing/Precaution Changes: no changes Advance Directives: Patient does not have advance directives. Patient/Caregiver declined Advance Directive information. ASSESSMENT: Focus of visit HEP instruction/progression, gait training, falls prevention. Pt wanting to do more/get stronger but today feeling limited by back pain which has been present since a few days ago. Plan of care, goals, and visit frequency reviewed and agreed upon with patient and/or caregiver. Current Discharge Plan: independent with home exercise program Anticipate discharge by 05/08/24 RECOMMENDATION: Next visit to focus on continued strength progression per tolerance, gait/endurance. See intervention summary for intervention/education details. documented in this encounterOhiohealth [facility] Medical Center03-07-2025 Patient's home Note* PT ROUTINE/REASSESSMENT/RECERT/CASE MGMT - Cinthya Poole PTA - 04/30/2024 2:01 PM EST SITUATION: only patient present during today's visit. patient reports the following since the last homecare visit: medications/allergies--no changes, no fall. patient reports back pain is increased today, has been exacerbated since which he attributes to long car ride to and from dr hoyos in [place]. Having difficulty coming to stand and walking. BACKGROUND: Diagnoses (reason for Home Care): Supraventricular tachycardia, unspecified. Past Medical History: COPD (chronic obstructive pulmonary disease) Mixed Hyperlipidemia Ibs (Irritable Bowel Syndrome) Cervicalgia Benign Non-Nodular Prostatic Hyperplasia Essential Hypertension Weight Bearing/Precaution Changes: no changes Advance Directives: Patient does not have advance directives. Patient/Caregiver declined Advance Directive information. ASSESSMENT: Focus of visit HEP instruction/progression, gait training, falls prevention. Pt wanting to do more/get stronger but today feeling limited by back pain which has been present since a few days ago. Plan of care, goals, and visit frequency reviewed and agreed upon with patient and/or caregiver. Current Discharge Plan: independent with home exercise program Anticipate discharge by 05/08/24 RECOMMENDATION: Next visit to focus on continued strength progression per tolerance, gait/endurance. See intervention summary for intervention/education details. [facility] Work Phone: [phone]) 452-981303-07-2025 Telephone encounter Note* Telephone Encounter - Giuliana Jacques - 04/30/2024 8:24 AM EST Notified that Woody Knupp is unavailable for today's scheduled PT visit and that we will reschedule as able. [facility]03-07-2025 Miscellaneous Notes* Telephone Encounter - Giuliana Jacques - 04/30/2024 8:24 AM EST Notified that Woody Knupp is unavailable for today's scheduled PT visit and that we will reschedule as able. documented in this encounterOhiohealth Southeastern Medical Center03-06-2025 Miscellaneous Notes* SN Routine - Zo Montenegro, RN - 04/29/2024 1:33 PM EST SITUATION: Prison routine visit completed today. only patient also present during today's visit. patient reports the following: Allergies--reviewed Medications--reviewed current medications Falls--None DME-Reviewed and added to chart BACKGROUND: Reason for Home Care: hx SVT, COPD, IBS ASSESSMENT: SN greeted at door by patient utilizing walker and demonstrates stable gait. Patient appears in no acute distress. Patient/CG concerns verbalized today: pt c/o loss of appetite, everything tastes bad, and I'm tired, I need to eat to get my energy back, but I can't force myself. SN recommended boost/ensure nutritional supplements. pt states I drink 2-3 a day. Vitals (see flow sheet for details): stable SN findings today: pt has flat affect. pt c/o back pain when walking. pt states he has appt with IDnext week, SN recommended discussing loss of appetite/bad taste with ID dr, noted pt is taking an atibiotic which can cause this. SN taught pt falls safety. SN taught pt to pace activity, but makesure to do something small every hour, to help build strength slowly. SN asked pt if he was still using his incentive spirometer or acapela device, pt states, sometimes. SN taught pt that he needs to keep using these 10x every hour to help improve his respiratory status to wean off oxygen. pt states, 'I sat here for an hour yesterday with it off, and I kept checking my oxygen, and it was 92% SN taught pt that he needs to continue to wear oxygen, he is not ready to wean yet. pt states he has several f/u visits scheduled next week, my handles all of that. pt denies GI or issues. See intervention summary for education details. Patient demonstrated a need for further skilled SN services for chronic disease management & education. Current Discharge plan: family support RECOMMENDATION: Next visit to focus on (be specific): see what f/u visits pt had ,check for new orders, see if appetite has improved. documented in this encounterOhiohealth [facility] Center03-06-2025 Patient's home Note* HH SN Routine - Zo Montenegro RN - 04/29/2024 1:33 PM EST SITUATION: Prison routine visit completed today. only patient also present during today's visit. patient reports the following: Allergies--reviewed Medications--reviewed current medications Falls--None DME-Reviewed and added to chart BACKGROUND: Reason for Home Care: hx SVT, COPD, IBS ASSESSMENT: SN greeted at door by patient utilizing walker and demonstrates stable gait. Patient appears in no acute distress. Patient/CG concerns verbalized today: pt c/o loss of appetite, everything tastes bad, and I'm tired, I need to eat to get my energy back, but I can't force myself. SN recommended boost/ensure nutritional supplements. pt states I drink 2-3 a day. Vitals (see flow sheet for details): stable SN findings today: pt has flat affect. pt c/o back pain when walking. pt states he has appt with IDnext sagar, SN recommended discussing loss of appetite/bad taste with ID SN tanner noted pt is taking an atibiotic which can cause this. SN taught pt falls safety. SN taught pt to pace activity, but makesure to do something small every hour, to help build strength slowly. SN asked pt if he was still using his incentive spirometer or acapela device, pt states, sometimes. SN taught pt that he needs to keep using these 10x every hour to help improve his respiratory status to wean off oxygen. pt states, 'I sat here for an hour yesterday with it off, and I kept checking my oxygen, and it was 92% SN taught pt that he needs to continue to wear oxygen, he is not ready to wean yet. pt states he has several f/u visits scheduled next week, my handles all of that. pt denies GI or issues. See intervention summary for education details. Patient demonstrated a need for further skilled SN services for chronic disease management & education. Current Discharge plan: family support RECOMMENDATION: Next visit to focus on (be specific): see what f/u visits pt had ,check for new orders, see if appetite has improved. [facility] Work Phone: 1(805) 726-487702-28-2025 Miscellaneous Notes* SN Routine - Joseline Marroquin RN - 04/23/2024 1:21 PM EST SITUATION: Prison routine visit completed today. only patient present during today's visit. patient reports the following: Allergies--reviewed Medications--reviewed current medications Falls--None BACKGROUND: Reason for Home Care: COPD with recent pneumonia ASSESSMENT: SN greeted at door by no one. Upon entrance patient found in chair Patient appears in no acute distress. Patient/CG concerns verbalized today: no new concerns Vitals (see flow sheet for details): stable SN findings today: Pt sitting in recliner in living room. He saw Dr Fortune this week and med profile updated with cyclobenzaprine and oxycodone. Pt reports that they do help with pain and sleep but the cyclobenzapine makes him sleep for a whole day, he did take the oxycodone last night and did haverestfull night. Lower extremitiy edema has resolved. Pt reports that his breathing patterns arer about the same but SN notes that pt does wendy to be gettign around a little better. He had therapy evaland feels that it may help him get stronger. We also talked about pulmonary rehab and this is something that he will think about. Cough is not as moist but he states that he is coughing up some yellow mucus. Overall, pt wells show some improvement and does not appear quite so tired today. He has not been drinking very much for fluids and SN instructed pt to increase this today. Pt als states that he has been having heartburn and that is bothering him today. He does not want to take anyother pill.SN suggested that he try crackers or toast in between meals to see if this may help. See intervention summary for education details. Patient demonstrated a need for further skilled SN services for chronic disease management & education and medication education. Current Discharge plan: self-care and family support RECOMMENDATION: Next visit to focus on (be specific): CP assessment, continue COPD teaching, how has fluid intake been? documented in this encounterOhio[facility] Patient's home Note* HH SN Routine - Joseline Marroquin RN - 04/23/2024 1:21 PM EST SITUATION: Prison routine visit completed today. only patient present during today's visit. patient reports the following: Allergies--reviewed Medications--reviewed current medications Falls--None BACKGROUND: Reason for Home Care: COPD with recent pneumonia ASSESSMENT: SN greeted at door by no one. Upon entrance patient found in chair Patient appears in no acute distress. Patient/CG concerns verbalized today: no new concerns Vitals (see flow sheet for details): stable SN findings today: Pt sitting in recliner in living room. He saw Dr Fortune this week and med profile updated with cyclobenzaprine and oxycodone. Pt reports that they do help with pain and sleep but the cyclobenzapine makes him sleep for a whole day, he did take the oxycodone last night and did haverestfull night. Lower extremitiy edema has resolved. Pt reports that his breathing patterns arer about the same but SN notes that pt does wendy to be gettign around a little better. He had therapy evaland feels that it may help him get stronger. We also talked about pulmonary rehab and this is something that he will think about. Cough is not as moist but he states that he is coughing up some yellow mucus. Overall, pt wells show some improvement and does not appear quite so tired today. He has not been drinking very much for fluids and SN instructed pt to increase this today. Pt als states that he has been having heartburn and that is bothering him today. He does not want to take anyother pill.SN suggested that he try crackers or toast in between meals to see if this may help. See intervention summary for education details. Patient demonstrated a need for further skilled SN services for chronic disease management & education and medication education. Current Discharge plan: self-care and family support RECOMMENDATION: Next visit to focus on (be specific): CP assessment, continue COPD teaching, how has fluid intake been? [facility] Work Phone: [phone] Miscellaneous Notes* PT EVALUATION - Woody Armas, PT - 04/22/2024 4:30 PM EST SITUATION: only patient present during today's visit. patient reports the following since the last homecare visit: medications/allergies--no changes, no fall. patient reports he is tired today. BACKGROUND: Diagnoses (reason for Home Care): Supraventricular tachycardia, unspecified. Past Medical History: COPD (chronic obstructive pulmonary disease) Mixed Hyperlipidemia Ibs (Irritable Bowel Syndrome) Cervicalgia Benign Non-Nodular Prostatic Hyperplasia Essential Hypertension Weight Bearing or Surgical Precautions: fall risk ASSESSMENT: Patient evaluated by [facility] Homecare physical therapy. Reviewed and explained homecare services. Plan of care, goals, and visit frequency developed, reviewed, and agreed upon with patient and/or caregiver. Patient on chair upon arrival. Patient reports he has been tired since the day prior due to apt. Patient reports he has struggled with nutrition and notes limited caloric intake due to fall with jaw fx. Patient has follow up next week. Patient educated on importance of ambulation every hour awake and promoting standing tolerance. Patient demonstrates understanding and agreed to P.T. POC Patient Goal: improve standing tolerance, ambulation and strength Patient will benefit from continued physical therapy to address the following deficits: strength, balance, gait, transfers, stair negotiation and bed mobility. Current Discharge Plan:independent with home exercise program. Anticipate discharge by 05/08/24 RECOMMENDATION: Next visit to focus on standing HEP and review ambulation program See intervention summary for intervention/education details. documented in this encounterOhiohealth [facility]02-27-2025 Patient's home Note* PT EVALUATION - Woody Armas, PT - 04/22/2024 4:30 PM EST SITUATION: only patient present during today's visit. patient reports the following since the last homecare visit: medications/allergies--no changes, no fall. patient reports he is tired today. BACKGROUND: Diagnoses (reason for Home Care): Supraventricular tachycardia, unspecified. Past Medical History: COPD (chronic obstructive pulmonary disease) Mixed Hyperlipidemia Ibs (Irritable Bowel Syndrome) Cervicalgia Benign Non-Nodular Prostatic Hyperplasia Essential Hypertension Weight Bearing or Surgical Precautions: fall risk ASSESSMENT: Patient evaluated by [facility] Homecare physical therapy. Reviewed and explained homecare services. Plan of care, goals, and visit frequency developed, reviewed, and agreed upon with patient and/or caregiver. Patient on chair upon arrival. Patient reports he has been tired since the day prior due to apt. Patient reports he has struggled with nutrition and notes limited caloric intake due to fall with jaw fx. Patient has follow up next week. Patient educated on importance of ambulation every hour awake and promoting standing tolerance. Patient demonstrates understanding and agreed to P.T. POC Patient Goal: improve standing tolerance, ambulation and strength Patient will benefit from continued physical therapy to address the following deficits: strength, balance, gait, transfers, stair negotiation and bed mobility. Current Discharge Plan:independent with home exercise program. Anticipate discharge by 05/08/24 RECOMMENDATION: Next visit to focus on standing HEP and review ambulation program See intervention summary for intervention/education details. [facility] Work Phone: [phone]) 368-212302-25-2025 Miscellaneous Notes* SN Routine - Moraima Esquivel RN - 04/20/2024 12:17 PM EST SITUATION: Prison routine visit completed today. only patient also present during today's visit. patient reports the following: Allergies--reviewed Medications--reviewed current medications Falls--None DME-NONE BACKGROUND: Reason for Home Care: COPD, O2 use ASSESSMENT: SN greeted at door by patient no DME and demonstrates stable gait. Patient appears in no acute distress. Patient/CG concerns verbalized today: see note Vitals (see flow sheet for details): stable SN findings today: Pt states that his daughter has Flu A and states he hopes he does not get it. SNeducated on hand hygiene and distancing from his daughter, pt states she is upstaors of the home and has been staying up there. SN educated on breathing techniques and use of inhailers to keep lungs strong since he did have exposure to Flu. SN advised pt to call if he begins having symptoms or present to ED for breathing problems or SOB and pt verbilized understanding. Pt has weaned himself down to 2L of O2- MD notfied of change. Pt is hopeful to get off of the O2 all together. SN assessed BLE for edema and only 1+ noted in left pedal/ankle area but none other noted. Pt does not speak much with SN today but answers questions as asked. SN offered opportunity for any questions or concenrs andpt declines. See intervention summary for education details. Patient demonstrated a need for further skilled SN services for chronic disease management & education, medication education and safety. Current Discharge plan: self-care and family support RECOMMENDATION: Next visit to focus on (be specific): respiratory assessment, any flu symptoms? documented in this encounterOhiohealth [facility]02-25-2025 Patient's home Note* SN Routine - Moraima Esquivel RN - 04/20/2024 12:17 PM EST SITUATION: Prison routine visit completed today. only patient also present during today's visit. patient reports the following: Allergies--reviewed Medications--reviewed current medications Falls--None DME-NONE BACKGROUND: Reason for Home Care: COPD, O2 use ASSESSMENT: SN greeted at door by patient no DME and demonstrates stable gait. Patient appears in no acute distress. Patient/CG concerns verbalized today: see note Vitals (see flow sheet for details): stable SN findings today: Pt states that his daughter has Flu A and states he hopes he does not get it. SNeducated on hand hygiene and distancing from his daughter, pt states she is upstaors of the home and has been staying up there. SN educated on breathing techniques and use of inhailers to keep lungs strong since he did have exposure to Flu. SN advised pt to call if he begins having symptoms or present to ED for breathing problems or SOB and pt verbilized understanding. Pt has weaned himself down to 2L of O2- MD notfied of change. Pt is hopeful to get off of the O2 all together. SN assessed BLE for edema and only 1+ noted in left pedal/ankle area but none other noted. Pt does not speak much with SN today but answers questions as asked. SN offered opportunity for any questions or concenrs andpt declines. See intervention summary for education details. Patient demonstrated a need for further skilled SN services for chronic disease management & education, medication education and safety. Current Discharge plan: self-care and family support RECOMMENDATION: Next visit to focus on (be specific): respiratory assessment, any flu symptoms? [facility] Work Phone: [phone]) 169-944702-24-2025 Telephone encounter Note* Telephone Encounter - Giuliana aJcques - 04/19/2024 2:52 PM EST There has been a delay in service for Home Care PT Evaluation for this patient due to schedule conflict. Patient was notified on 04/19. Physician's office notified at: [phone] ( left) Thank you for this referral, please contact us with any questions. Giuliana Ontiveros Network Systems Analyst [facility]02-24-2025 Miscellaneous Notes* Telephone Encounter - Giuliana Jacques - 04/19/2024 2:52 PM EST There has been a delay in service for Home Care PT Evaluation for this patient due to schedule conflict. Patient was notified on 04/19. Physician's office notified at: [phone] ( left) Thank you for this referral, please contact us with any questions. Giuliana Ontiveros Network Systems Analyst documented in this encounterOhiohealth Southeastern Medical Center02-22-2025 Miscellaneous Notes* CARE COORDINATION - Doyle Olson OTR/Mary - 04/17/2024 11:36 AM EST ......In-basket to precert nurse, rehabilitation caseworker and P.T. Re: EDGARDO ACEVES communication via [employer] (telephone encounter) * OT EVALUATION/REASSESSMENT/RECERT - Doyle Olson OTR/L - 04/17/2024 11:36 AM EST SITUATION: only patient present during today's visit. patient reports the following since the last homecare visit: medications/allergies--no changes, no fall. BACKGROUND: Primary Diagnoses (reason for Home Care): Supraventricular tachycardia, unspecified. Any one of the comorbidities from the list below may have a deleterious effect on the primary home care diagnosis. ACTIVE PROBLEM LIST COPD (chronic obstructive pulmonary disease) Mixed Hyperlipidemia Ibs (Irritable Bowel Syndrome) Cervicalgia Benign Non-Nodular Prostatic Hyperplasia Essential Hypertension - Precautions/Activity Restrictions: N/A COPD program. Advance Directives: Patient does not have advance directives. Patient/Caregiver requested ASSESSMENT: Patient evaluated by [facility] Homecare occupational therapy. Reviewed and explained homecare services. Plan of care, goals and visit frequency developed, reviewed, and agreed upon with patient and/or caregiver. Patient identified goals: able to get outside, get off the O2, back to work. Patient will benefit from continued occupational therapy to address the following deficits functional activity including I/ADLs and UE strength/ROM as evidenced by score on Modified Eber Index 90/100. ..indicating moderate dependence. Pt declined further OT instruction. Patient has been requiring more time and effort to complete daily activities, secondary to decreased endurance. Without continued OT services, patient risks prolonged difficulty w/ completing I/ADLs and potential injury leading to a longer and more difficult recovery. Current Discharge Plan:remain in community with/without caregiver support. Anticipate discharge by .04/17/2024 RECOMMENDATION: Plan for next visit to focus on NA. See intervention summary for intervention/education details. documented in this encounterOhiohealth [facility] Center02-22-2025 Patient's home Note* CARE COORDINATION - Doyle Olson OTR/L - 04/17/2024 11:36 AM EST ......In-basket to precert nurse, rehabilitation caseworker and P.T. Re: EDGARDO ACEVES communication via [employer] (telephone encounter) [facility] Work Phone: [phone]) 302-100902-22-2025 Patient's home Note* OT EVALUATION/REASSESSMENT/RECERT - Doyle Olson OTR/Mary - 04/17/2024 11:36 AM EST SITUATION: only patient present during today's visit. patient reports the following since the last homecare visit: medications/allergies--no changes, no fall. BACKGROUND: Primary Diagnoses (reason for Home Care): Supraventricular tachycardia, unspecified. Any one of the comorbidities from the list below may have a deleterious effect on the primary home care diagnosis. ACTIVE PROBLEM LIST COPD (chronic obstructive pulmonary disease) Mixed Hyperlipidemia Ibs (Irritable Bowel Syndrome) Cervicalgia Benign Non-Nodular Prostatic Hyperplasia Essential Hypertension - Precautions/Activity Restrictions: N/A COPD program. Advance Directives: Patient does not have advance directives. Patient/Caregiver requested ASSESSMENT: Patient evaluated by [facility] Homecare occupational therapy. Reviewed and explained homecare services. Plan of care, goals and visit frequency developed, reviewed, and agreed upon with patient and/or caregiver. Patient identified goals: able to get outside, get off the O2, back to work. Patient will benefit from continued occupational therapy to address the following deficits functional activity including I/ADLs and UE strength/ROM as evidenced by score on Modified Eber Index 90/100. ..indicating moderate dependence. Pt declined further OT instruction. Patient has been requiring more time and effort to complete daily activities, secondary to decreased endurance. Without continued OT services, patient risks prolonged difficulty w/ completing I/ADLs and potential injury leading to a longer and more difficult recovery. Current Discharge Plan:remain in community with/without caregiver support. Anticipate discharge by .04/17/2024 RECOMMENDATION: Plan for next visit to focus on NA. See intervention summary for intervention/education details. [facility]02-21-2025 Miscellaneous Notes* SN Routine - Joseline Marroquin RN - 04/16/2024 2:26 PM EST SITUATION: Prison routine visit completed today.only patient present during today's visit. patient reports the following: Allergies--reviewed Medications--reviewed current medications Falls--None BACKGROUND: Reason for Home Care: COPD, post hospital for pneumonia and SVT ASSESSMENT: SN greeted at door by no one. Upon entrance patient found in chair Patient appears in no acute distress. Patient/CG concerns verbalized today: no new concerns Vitals (see flow sheet for details): stable SN findings today: Pt sitting in recliner watching TV, he states that he is tired but SN nootes that pt is more participating in today's vs, does not seem as sleepy and is in slightly brighter spirits. He verbalizes that he is still not sleeping and is frustrated over this. He states that Dr Fortunerecsharanded that he try cyclobenaprine which pt had in but he states that it did not help at all. He describes this as more of a restlessness and generalized possible joint pain, he has tried tylenol without relief. He is able to nap during the day without that restless feeling but does not feel that he is napping enough that this would be affecting his sleep at night. Respiratory: pt has a frequent clearing of his throat, this is not as moist as noted on SOC vs and pt reports that he has not coughed up any mucus today. He is wearing the oxygen at 2.5 liters continuously. Lungs are generally diminished. SN reinforced instructions on COPD management, encouraged him to try to walk several times a day, continue the pursed lip breathing. He feels that his breathign patterns are aboutthe same as SOC vs. See intervention summary for education details. Patient demonstrated a need for further skilled SN services for chronic disease management & education, medication education and safety. Current Discharge plan: self-care and family support RECOMMENDATION: Next visit to focus on (be specific): COPD assessment adn instruction. Leg measurements: L heel to knee, 43 Calf 32q Ankle 32 R heel to knee 41 Calf 32 Ankle 32 (all in cm) documented in this encounterOhiohealth [facility]heastern Medical Center02-21-2025 Patient's home Note* SN Routine - Joseline Marroquin RN - 04/16/2024 2:26 PM EST SITUATION: Prison routine visit completed today.only patient present during today's visit. patient reports the following: Allergies--reviewed Medications--reviewed current medications Falls--None BACKGROUND: Reason for Home Care: COPD, post hospital for pneumonia and SVT ASSESSMENT: SN greeted at door by no one. Upon entrance patient found in chair Patient appears in no acute distress. Patient/CG concerns verbalized today: no new concerns Vitals (see flow sheet for details): stable SN findings today: Pt sitting in recliner watching TV, he states that he is tired but SN nootes that pt is more participating in today's vs, does not seem as sleepy and is in slightly brighter spirits. He verbalizes that he is still not sleeping and is frustrated over this. He states that Dr Fortunerecvimended that he try cyclobenaprine which pt had in but he states that it did not help at all. He describes this as more of a restlessness and generalized possible joint pain, he has tried tylenol without relief. He is able to nap during the day without that restless feeling but does not feel that he is napping enough that this would be affecting his sleep at night. Respiratory: pt has a frequent clearing of his throat, this is not as moist as noted on SOC vs and pt reports that he has not coughed up any mucus today. He is wearing the oxygen at 2.5 liters continuously. Lungs are generally diminished. SN reinforced instructions on COPD management, encouraged him to try to walk several times a day, continue the pursed lip breathing. He feels that his breathign patterns are aboutthe same as SOC vs. See intervention summary for education details. Patient demonstrated a need for further skilled SN services for chronic disease management & education, medication education and safety. Current Discharge plan: self-care and family support RECOMMENDATION: Next visit to focus on (be specific): COPD assessment adn instruction. Leg measurements: L heel to knee, 43 Calf 32q Ankle 32 R heel to knee 41 Calf 32 Ankle 32 (all in cm) [facility] Work Phone: 1([phone]) [phone] Miscellaneous Notes* HH CARE COORDINATION - Cally Park, TOWER EQUIPMENT INSTALLER - 04/16/2024 2:15 PM EST 04/16/24 2:15 PM - 2:19 PM TOWER EQUIPMENT INSTALLER called the pt.'s Crystal regarding TOWER EQUIPMENT INSTALLER visit and community resources. TOWER EQUIPMENT INSTALLER discussed them wanting the Living Will and Medical POA forms. The pt.'s stated they would like them. She asked TOWER EQUIPMENT INSTALLER if she could mail them to them. TOWER EQUIPMENT INSTALLER asked if they needed help to complete the forms and she wants to look them over. She did not want TOWER EQUIPMENT INSTALLER to visit at this time. She stated they would have the forms notarized. The pt.'s was at work but stated she could talk. TOWER EQUIPMENT INSTALLER discussed community resources regarding more help with the pt.'s care. TOWER EQUIPMENT INSTALLER educated the pt.'s on [facility] for PAS[employer]ORT. She stated they own their home and were not on Medicaid. TOWER EQUIPMENT INSTALLER asked about wanting a [employer]. She asked if the pt.'s insurance would cover this and LSWinformed her they probably would not but that they could call member services. She stated that the pt. was not on Medicare. The pt.'s asked TOWER EQUIPMENT INSTALLER to mail her a list of ER Medical Alert providers. TOWER EQUIPMENT INSTALLER provided the pt.'s with her name and phone number to call TOWER EQUIPMENT INSTALLER with any needs. TOWER EQUIPMENT INSTALLER informed the pt.'s TOWER EQUIPMENT INSTALLER would also attach her card with information mailed. 04/16/24 TOWER EQUIPMENT INSTALLER mailed to the pt.'s home the Living Will and Medical POA forms and About Advanced Directives pamphlet, information on ER Medical Alert providers and information on [employer]. TOWER EQUIPMENT INSTALLER attached her card with information mailed. 04/16/24 2:59 PM - 3:02 PM TOWER EQUIPMENT INSTALLER called [facility] Leo and spoKe to the Nurse Selene regarding TOWER EQUIPMENT INSTALLER phone call with the pt.'s and she wanted TOWER EQUIPMENT INSTALLER to mail the Living Will and Medical POA forms and About Advanced Directives pamphlet, information on ER Medical Alert providers and TOWER EQUIPMENT INSTALLER mailed information on [employer]. TOWER EQUIPMENT INSTALLER attached her card with information mailed. TOWER EQUIPMENT INSTALLER stated she did not want TOWER EQUIPMENT INSTALLER visit at this time. Selene stated she would let the DrNixon know. documented in this encounter[facility] Patient's home Note* HH CARE COORDINATION - Cally Park LSW - 04/16/2024 2:15 PM EST 04/16/24 2:15 PM - 2:19 PM TOWER EQUIPMENT INSTALLER called the pt.'s Crystal regarding TOWER EQUIPMENT INSTALLER visit and community resources. TOWER EQUIPMENT INSTALLER discussed them wanting the Living Will and Medical POA forms. The pt.'s stated they would like them. She asked TOWER EQUIPMENT INSTALLER if she could mail them to them. TOWER EQUIPMENT INSTALLER asked if they needed help to complete the forms and she wants to look them over. She did not want TOWER EQUIPMENT INSTALLER to visit at this time. She stated they would have the forms notarized. The pt.'s was at work but stated she could talk. TOWER EQUIPMENT INSTALLER discussed community resources regarding more help with the pt.'s care. TOWER EQUIPMENT INSTALLER educated the pt.'s on [facility] for PASSPORT. She stated they own their home and were not on Medicaid. TOWER EQUIPMENT INSTALLER asked about wanting a [employer]. She asked if the pt.'s insurance would cover this and LSWinformed her they probably would not but that they could call member services. She stated that the pt. was not on Medicare. The pt.'s asked TOWER EQUIPMENT INSTALLER to mail her a list of ER Medical Alert providers. TOWER EQUIPMENT INSTALLER provided the pt.'s with her name and phone number to call TOWER EQUIPMENT INSTALLER with any needs. TOWER EQUIPMENT INSTALLER informed the pt.'s TOWER EQUIPMENT INSTALLER would also attach her card with information mailed. 04/16/24 TOWER EQUIPMENT INSTALLER mailed to the pt.'s home the Living Will and Medical POA forms and About Advanced Directives pamphlet, information on ER Medical Alert providers and information on [employer]. TOWER EQUIPMENT INSTALLER attached her card with information mailed. 04/16/24 2:59 PM - 3:02 PM TOWER EQUIPMENT INSTALLER called Xavi Leo and spoKe to the Nurse Selene regarding TOWER EQUIPMENT INSTALLER phone call with the pt.'s and she wanted TOWER EQUIPMENT INSTALLER to mail the Living Will and Medical POA forms and About Advanced Directives pamphlet, information on ER Medical Alert providers and TOWER EQUIPMENT INSTALLER mailed information on [employer]. TOWER EQUIPMENT INSTALLER attached her card with information mailed. TOWER EQUIPMENT INSTALLER stated she did not want TOWER EQUIPMENT INSTALLER visit at this time. Selene stated she would let the know. [facility] Work Phone: 1(571) 943-975702-21-2025 Telephone encounter Note* Telephone Encounter - Nichole Sosa - 04/16/2024 11:32 AM EST Called patient to confirm OT service for Friday. Patient agreeable to visit. [facility] Miscellaneous Notes* Telephone Encounter - Nichole Sosa - 04/16/2024 11:32 AM EST Called patient to confirm OT service for Friday. Patient agreeable to visit. documented in this encounterOhio[facility]02-19-2025 Miscellaneous Notes* SN SOC - Joseline Marroquin RN - 04/14/2024 11:46 AM EST SITUATION: Prison SOC visit completed today. spouse also present during today's visit. patient and caregiver reports the following: Allergies--reviewed Medications--full medication reconciliation completed Falls--None DME-Reviewed and added to chart Advance Directives: Patient does not have advance directives. Patient/Caregiver requested Advance Directive information. BACKGROUND: [facility] following treatment for COPD, pneumonia. Pertinent referral information or other diagnoses that may affect plan of care: recent dx of SVT ASSESSMENT: SN greeted at door by caregiver. Upon entrance patient found in chair Patient appears in no acute distress. Patient lives at home with spouse. Home environment: cluttered and has pets: 2 dogs. SOC booklet reviewed & completed with patient and consent obtained for Home Care services. Patient/CG concerns verbalized today: pt and cg verbalize that pt is currently very weak after backto back hospital stays. Vitals (see flow sheet for details): stable SN findings today: Pt ambulated to kitchen for vs.Much discussion and instruction regarding goals of home care, had many questions about palliative and hospice care. She reports that [facility] office called her this am and informed her that pt has staage 4 COPD and spoke of these services. After explaiining the differences in care; pt and cg have decided to pursue traditoinal home healthwith therapy to determine of pt can get stronger and feel better before considering palliative and/or hospice care. This SN feels that this is appropriate due to pt being much more independent prior to the acute illness. Pt is wearing oxygen continuously at 3 liters. He does not appear acutely short of breath with slowambulation. Cough is moist and occasionally productive of brown to white sputum. Pt is no longer smoking. Pt has nebulizer treatments, instructed on deep breathing exercises, pursed lip breathing, provided COPD binder and reviewed zone sheet.Pt is on multiple new medications, SN reviewed and instructed pt and cg on all meds. Pt denies any s/s of SVT episode since coming home from the hospital. See intervention summary for education details and skills performed. Plan of care and visit frequency established with patient and caregiver and plan of care agreed upon. Patient demonstrated a need for further skilled SN services for chronic disease management & education, medication education and safety. RECOMMENDATION: Visit Frequency: 2 wk 3, 1 wk 6 Need for additional services: Patient agreeable to PT, OT and AUTO OVERHAULER referrals. Patient declined N/A referrals. Additional concerns to be followed up on: NONE Next visit to focus on (be specific): Continue COPD educatioin, CP assessment documented in this encounterOhio[facility]02-19-2025 Patient's home Note* SN SOC - Joseline Marroquin RN - 04/14/2024 11:46 AM EST SITUATION: Prison SOC visit completed today. spouse also present during today's visit. patient and caregiver reports the following: Allergies--reviewed Medications--full medication reconciliation completed Falls--None DME-Reviewed and added to chart Advance Directives: Patient does not have advance directives. Patient/Caregiver requested Advance Directive information. BACKGROUND: Discharged/[facility]24 following treatment for COPD, pneumonia. Pertinent referral information or other diagnoses that may affect plan of care: recent dx of SVT ASSESSMENT: SN greeted at door by caregiver. Upon entrance patient found in chair Patient appears in no acute distress. Patient lives at home with spouse. Home environment: cluttered and has pets: 2 dogs. SOC booklet reviewed & completed with patient and consent obtained for Home Care services. Patient/CG concerns verbalized today: pt and cg verbalize that pt is currently very weak after backto back hospital stays. Vitals (see flow sheet for details): stable SN findings today: Pt ambulated to kitchen for vs.Much discussion and instruction regarding goals of home care, had many questions about palliative and hospice care. She reports that [facility]usher office called her this am and informed her that pt has staage 4 COPD and spoke of these services. After explaiining the differences in care; pt and cg have decided to pursue traditoinal home healthwith therapy to determine of pt can get stronger and feel better before considering palliative and/or hospice care. This SN feels that this is appropriate due to pt being much more independent prior to the acute illness. Pt is wearing oxygen continuously at 3 liters. He does not appear acutely short of breath with slowambulation. Cough is moist and occasionally productive of brown to white sputum. Pt is no longer smoking. Pt has nebulizer treatments, instructed on deep breathing exercises, pursed lip breathing, provided COPD binder and reviewed zone sheet.Pt is on multiple new medications, SN reviewed and instructed pt and cg on all meds. Pt denies any s/s of SVT episode since coming home from the hospital. See intervention summary for education details and skills performed. Plan of care and visit frequency established with patient and caregiver and plan of care agreed upon. Patient demonstrated a need for further skilled SN services for chronic disease management & education, medication education and safety. RECOMMENDATION: Visit Frequency: 2 wk 3, 1 wk 6 Need for additional services: Patient agreeable to PT, OT and AUTO OVERHAULER referrals. Patient declined N/A referrals. Additional concerns to be followed up on: NONE Next visit to focus on (be specific): Continue COPD educatioin, CP assessment [facility] Work Phone: [phone] Telephone encounter Note* Telephone Encounter - Antoinette Ricardo PSS - 04/12/2024 2:05 PM EST Incoming call from [place] at PCP Dr. Fortune. She said Dr. Fortune will follow for homecare followingdischarge if appropriate. Aparna notified. ALBERTINA Farr 04/12/2024 2:06 PM [facility]02-17-[facility] Miscellaneous Notes* Telephone Encounter - Antoinette Ricardo PSS - 04/12/2024 2:05 PM EST Incoming call from [place] at PCP Dr. Fortune. She said Dr. Fortune will follow for homecare followingdischarge if appropriate. Aparna notified. ALBERTINA Farr 04/12/2024 2:06 PM * Telephone Encounter - Chelsea Xie LPN - 04/12/2024 10:20 AM EST This nurse called Dr. Fortune office @ [phone]. Spoke with Nidhi and left message requesting return call to confirm if PCP will follow for [facility]. documented in this encounterOhio[facility]02-17-2025 Telephone encounter Note * Telephone Encounter - Adriane Cabral PSS - 04/12/2024 10:25 AM EST Date/Time: 04/12/2024 10:25 AM Spoke with Tiana Ortiz (Spouse) @ phone #: [phone] - Preferred # for contact: Tiana Ortiz (Spouse) [phone] (Home Phone) Have you received help from a home care company in the last 60 days? no Are you agreeable to HHC services? yes What address will we be seeing you at? [address] [address] Do you have any upcoming appointments or things we need to schedule around? no Do you have a teachable CG or can you manage your care independently? yes Who? Tiana Ortiz (Spouse) Have you received the flu shot? no If so, when and where? no [facility] Miscellaneous Notes* Telephone Encounter - Adriane Cabral PSS - 04/12/2024 10:25 AM EST Date/Time: 04/12/2024 10:25 AM Spoke with Tiana Ortiz (Spouse) @ phone #: [phone] - Preferred # for contact: Tiana Ortiz (Spouse) [phone] (Home Phone) Have you received help from a home care company in the last 60 days? no Are you agreeable to HHC services? yes What address will we be seeing you at? [address] [place] [address] Do you have any upcoming appointments or things we need to schedule around? no Do you have a teachable CG or can you manage your care independently? yes Who? Tiana Ortiz (Spouse) Have you received the flu shot? no If so, when and where? no documented in this encounterOhio[facility]02-17-2025 Telephone encounter Note * Telephone Encounter - Chelsea Xie LPN - 04/12/2024 10:20 AM EST This nurse called Dr. Fortune office @ [phone]. Spoke with Nidhi and left message requesting return call to confirm if PCP will follow for HHC. [facility] Work Phone: 1(591) 205-412302-15-2025 [facility]02-13-2025 [facility]01-25-2025 [facility] 03-15-2024 Evaluation note* Diagnosis Onset Date Resolution Status Admit Date COPD exacerbation resolved March 15, 2024 7:04pm Lightheadedness resolved February 252024 7:04pm Pneumonia resolved March 15, 2024 7:04pm Ambulatory dysfunction acute 2024 3:59am Cavitary lesion of lung acute F 2024 3:59am Generalized weakness acute 2024 3:59am Hypoalbuminemia acute March 28, 2024 3:59am Lung mass acute March 28, 2024 3:59am Pneumonia acute March 28, 2024 3:59am COPD (chronic obstructive pulmonary disease) May, chronic March 28, 2024 3:59am Abdominal pain resolved March 282024 3:59am Acute cystitis resolved March 282024 3:59am Constipation resolved March 3:59am Ileus resolved March 28, 2024 3:59am Ileus due to infection resolved 2024 3:59am Leukocytosis resolved March 3:59am On home oxygen therapy resolved 2024 3:59am Chronic hyponatremia inactive 2024 3:59am Colonic mass inactive March 3:59am Smoking greater than 40 pack years inactive March 28 3:59am Stercoral colitis inactive 2024 3:59am Tobacco dependence inactive ry 2024 3:59am Cavitary lesion of lung acute F ebruary 2024 2:11am Leg edema acute April 09, 2024 2:11am COPD (chronic obstructive pulmonary disease) May, chronic March 2:11am SVT (supraventricular tachycardia) chronic April 09, 2 025 2:11am Acute hypotension resolved 2024 2:11am Adverse drug reaction resolved Feb ruary 2024 2:11am Elevated troponin resolved 2024 2:11am Lung abscess acute May 03, 2024 2:39pm COPD (chronic obstructive pulmonary disease) chronic May 03, 025 2:39pm Nicotine abuse chronic April 2:39pm Dysgeusia acute May 24 3:01pm Weight loss acute May 24, 2 025 3:01pm Anemia acute May 26 1:20pm Lung abscess acute May 26, 2 025 1:20pm Hypertension chronic May 26 025 1:20pm SVT (supraventricular tachycardia) chronic May 26, 2024 1:20pm Lung abscess acute May 31, 2 025 8:30am COPD (chronic obstructive pulmonary disease) chronic May 31 8:30am Nicotine abuse chronic May 31, 2024 8:30am [facility] Work Phone: 1(993) 288-953201-20-2025 Evaluation note* Diagnosis Onset Date Resolution Status Admit Date COPD exacerbation resolved March 15, 2024 7:04pm Lightheadedness resolved February 252024 7:04pm Pneumonia resolved March 15, 2024 7:04pm Ambulatory dysfunction acute 2024 3:59am Cavitary lesion of lung acute F eb2024 3:59am Generalized weakness acute 2024 3:59am Hypoalbuminemia acute March 28, 2024 3:59am Lung mass acute March 28, 2024 3:59am Pneumonia acute March 28, 2024 3:59am COPD (chronic obstructive pulmonary disease) May, chronic March 28, 2024 3:59am Abdominal pain resolved March 282024 3:59am Acute cystitis resolved March 282024 3:59am Constipation resolved March 3:59am Ileus resolved March 28, 2024 3:59am Ileus due to infection resolved 2024 3:59am Leukocytosis resolved March 3:59am On home oxygen therapy resolved 2024 3:59am Chronic hyponatremia inactive 2024 3:59am Colonic mass inactive March 3:59am Smoking greater than 40 pack years inactive March 28 3:59am Stercoral colitis inactive 2025 3:59am Tobacco dependence inactive ry 2024 3:59am Cavitary lesion of lung acute F ebruary 2024 2:11am Leg edema acute April 09, 2024 2:11am COPD (chronic obstructive pulmonary disease) May, chronic March 2:11am SVT (supraventricular tachycardia) chronic April 09, 2 025 2:11am Acute hypotension resolved Februa2024 2:11am Adverse drug reaction resolved Feb ruary 2024 2:11am Elevated troponin resolved 2024 2:11am Lung abscess acute May 03, 2024 2:39pm COPD (chronic obstructive pulmonary disease) chronic May 03, 2 025 2:39pm Nicotine abuse chronic April 2:39pm Dysgeusia acute May 24 3:01pm Weight loss acute May 24, 2 025 3:01pm Anemia acute May 26 1:20pm Lung abscess acute May 26, 2 025 1:20pm Hypertension chronic May 26, 2 025 1:20pm SVT (supraventricular tachycardia) chronic May 26, 2024 1:20pm Lung abscess acute May 31, 2 025 8:30am COPD (chronic obstructive pulmonary disease) chronic May 31 8:30am Nicotine abuse chronic May 31, 2024 8:30am Acute exacerbation of chroni c obstructive pulmonary disease chronic Ma 2024 4:07am [facility] Work Phone: 1(692) 186-843301-07-2025 [facility]01-04-2025 Evaluation note* Diagnosis Onset Date Resolution Status Admit Date Chin laceration acute February 272024 3:00pm Contusion of face acute February 28, 2024 3:00pm Fracture of jaw acute February 272024 3:00pm History of ETOH abuse acute Guru uary 2024 3:00pm Tongue laceration acute February 28, 2024 3:00pm Chronic hyponatremia chronic Jean Carlos rajat 2024 3:00pm COPD with acute exacerbation resolve d February 28, 2024 3:00pm Fall resolved February 27, 2 025 3:00pm Syncope resolved February 27 2 025 3:00pm COPD exacerbation resolved March 15, 2024 7:04pm Lightheadedness resolved February 252024 7:04pm Pneumonia resolved March 15, 2024 7:04pm Ambulatory dysfunction acute 2024 3:59am Cavitary lesion of lung acute F eb2024 3:59am Generalized weakness acute 2024 3:59am Hypoalbuminemia acute March 28, 2024 3:59am Lung mass acute March 28, 2024 3:59am Pneumonia acute March 28, 2024 3:59am COPD (chronic obstructive pulmonary disease) May, chronic March 28, 2024 3:59am Abdominal pain resolved March 282024 3:59am Acute cystitis resolved March 282024 3:59am Constipation resolved March 3:59am Ileus resolved March 28, 2024 3:59am Ileus due to infection resolved 2024 3:59am Leukocytosis resolved March 3:59am On home oxygen therapy resolved 2024 3:59am Chronic hyponatremia inactive 2024 3:59am Colonic mass inactive March 3:59am Smoking greater than 40 pack years inactive March 28 3:59am Stercoral colitis inactive 2024 3:59am Tobacco dependence inactive 2024 3:59am Cavitary lesion of lung acute F ebruary 2024 2:11am Leg edema acute April 09, 2024 2:11am COPD (chronic obstructive pulmonary disease) May, chronic March 2:11am SVT (supraventricular tachycardia) chronic April 09, 2 025 2:11am Acute hypotension resolved 2024 2:11am Adverse drug reaction resolved Feb ruary 2024 2:11am Elevated troponin resolved 2024 2:11am Lung abscess acute May 03, 2024 2:39pm COPD (chronic obstructive pulmonary disease) chronic May 03, 2 025 2:39pm Nicotine abuse chronic April 2:39pm Dysgeusia acute May 24 3:01pm Weight loss acute May 24, 2 025 3:01pm Anemia acute May 26 1:20pm Lung abscess acute May 26 025 1:20pm Hypertension chronic May 26 1:20pm SVT (supraventricular tachycardia) chronic May 26, 2024 1:20pm Lung abscess acute May 31 025 8:30am COPD (chronic obstructive pulmonary disease) chronic May 31 8:30am Nicotine abuse chronic May 31, 2024 8:30am [facility] Work Phone: 1(222) 745-782606-30-2024 NoteHNO ID: [id number] Author: CARA MARQUEZ PA-C Service: ? Author Type: Physician Railroad Brakeman Type: Progress Notes Filed: 08/24/2023 11:59 Note [...] squad, will drive across the street to [facility]. He is not in acute distress here.[facility]06-30-2024 History of Present illness Narrative* Cara Marquez PA-C - 08/24/2023 11:57 AM EDT Presents to express care triage with a [...] squad, will drive across the street to [facility]. He is not in acute distress here. documented in this encounterOhio[facility]01-17-2023 Procedure [facility]01[facility]16-2023 [facility] noteNo assessment information availableW[facility]ot [facility] Work Phone: Evaluation note* Diagnosis Onset Date Resolution Status Hyponatremia acute Hypoxia acute COPD exacerbation [facility] Work Phone: Evaluation note* Diagnosis Onset Date Resolution Status COPD exacerbation resolved Hypoxia resolved Smoking greater than 40 pack years acute COPD (chronic obstructive pulmonary disease) [facility] Work Phone: Evaluation note* Diagnosis Onset Date Resolution Status Smoking greater than 40 pack years acute COPD (chronic obstructive pulmonary disease) chronic COPD (chronic obstructive pulmonary disease) [facility] Work Phone: Evaluation note* Diagnosis Onset Date Resolution Status COPD (chronic obstructive pulmonary disease) chronic Smoking greater than 40 pack years acute COPD (chronic obstructive pulmonary disease) [facility] Work Phone: Evaluation note* Diagnosis Onset Date Resolution Status Nocturnal hypoxia acute COPD (chronic obstructive pulmonary disease) [facility] Work Phone: Evaluation note* Diagnosis Onset Date Resolution Status Oral thrush acute COPD (chronic obstructive pulmonary disease) chronic Smoking greater than 40 pack years [facility] Work Phone: Evaluation note* Diagnosis Onset Date Resolution Status Nocturnal hypoxia acute COPD (chronic obstructive pulmonary disease) chronic Smoking greater than 40 pack years [facility] Work Phone: Evaluation note* Diagnosis SOB (shortness of breath)- Primary Shortness of breath [facility] Pain and swelling of right knee- [facility] Additional Instructions Call and follow-up with Dr. Tavarez. This should recheck your sodium level to make sure it is not getting lower. It has been chronically abnormal in the past. You have diverticulosis on your CAT scan but no obvious signs of infection.[facility] Work Phone: Hospital Discharge instructionsAmbulatory Orders* Electrophysiology Location: None Selected [facility] Work Phone: Patient's home Plan of care note* Visit Details Visit Type -OT EVAL Discipline -Occupational Therapy Problems Problem Description Start Date Status Goals Interve ntions Medication Education Disciplines: Skilled Services 04/14/2024 Active 1 goal linked to scheduled/document ed intervention 1 goal intervention scheduled/document ed in this visit Mental Health Disciplines: Skilled Services 04/14/2024 Active 1 goal linked to scheduled/document ed intervention 2 goal interventions scheduled/document ed in this visit Sepsis Disciplines: Skilled Services 04/14/2024 Active 1 goal linked to scheduled/document ed intervention 1 goal intervention scheduled/document ed in this visit OT Referral Disciplines: Skilled Services 04/14/2024 Resolved on 04/17/2024 1 goal linked to scheduled/document ed intervention 1 goal intervention scheduled/document ed in this visit Risk for skin breakdown Disciplines: Skilled Services 04/14/2024 Active 1 goal linked to scheduled/document ed intervention 1 goal intervention scheduled/document ed in this visit Physician Specific Parameters Disciplines: Skilled Services 04/14/2024 Active 1 goal linked to scheduled/document ed intervention 1 goal intervention scheduled/document ed in this visit Risk for Falls Disciplines: Skilled Services 04/14/2024 Active 1 goal linked to scheduled/document ed intervention 1 goal intervention scheduled/document ed in this visit Pain Disciplines: Skilled Services 04/14/2024 Active 1 goal linked to scheduled/document ed intervention 1 goal intervention scheduled/document ed in this visit Oxygen Disciplines: Skilled Services 04/14/2024 Active 1 goal linked to scheduled/document ed intervention 1 goal intervention scheduled/document ed in this visit Nutrition/Hydr ation Disciplines: Skilled Services 04/14/2024 Active 1 goal linked to scheduled/document ed intervention 1 goal intervention scheduled/document ed in this visit High Risk Medications Disciplines: Skilled Services 04/14/2024 Active 1 goal linked to scheduled/document ed intervention 1 goal intervention scheduled/document ed in this visit Discharge Disciplines: Skilled Services 04/14/2024 Active 1 goal linked to scheduled/document ed intervention 2 goal interventions scheduled/document ed in this visit OT Learning Assessment Disciplines: OT 04/17/2024 Resolved on 04/17/2024 1 goal linked to scheduled/document ed intervention 1 goal intervention scheduled/document ed in this visit OT ADLs/IADLs Disciplines: OT 04/17/2024 Resolved on 04/17/2024 1 goal linked to scheduled/document ed intervention 1 goal intervention scheduled/document ed in this visit Goals Goal Associated Problem Outcome Goal Met? Visit Notes Patient/caregiver will demonstrate ability to obtain, store, identify and administer ordered medications, keep accurate medication list in home, and adhere to medication schedule Description: Patient/caregiver will demonstrate ability to obtain, store, identify and administer ordered medications, keep accurate medication list in home, and adhere to medication schedule by 05/21/24 . Medication Education No Improved management of mental health condition(s) Description: Patient/caregiver will teach back mental health symptom identification and management techniques by 06/12/24. Mental Health No Patient/caregiver will be able to identify and report symptoms of sepsis Description: Patient/caregiver will be able to identify signs/symptoms of sepsis infection and will verbalize actions to take if suspected by 06/12/24. Sepsis No Patient will be referred to additional discipline as needed OT Referral Completed Yes Eval only - goal not met. Manage risk for skin breakdown Description: Patient/caregiver will verbalize and demonstrate understanding of the risks and measures to be taken to monitor and prevent skin breakdown by 05/24/24. Risk for skin breakdown No Patient to maintain parameters within physician-specified ranges throughout certification period Physician Specific Parameters No Manage Risk for falls Description: Patient/caregiver will verbalize knowledge of individualized fall prevention strategies by 06/12/24. Risk for Falls No Manage Pain Description: Patient/caregiver will verbalize knowledge and understanding of appropriate techniques to control pain, including pain medication and non-pharmacological techniques. Patient will verbalize or demonstrate an acceptable level of pain as evidenced by a pain score of <5/10 and improvement in ability to perform activities of daily living to be achieved by 06/12/24. Pain No Manage oxygen Description: Patient/caregiver will use oxygen safely and effectively in home by verbalizing and demonstrating oxygen safety by 06/12/24. Oxygen No Manage Nutrition/Hydration Description: Patient/caregiver will verbalize/demonstrate knowledge of prescribed diet and/or healthy nutrition to be achieved by 06/12/24. Nutrition/Hydration No Patient/caregiver will teach back high risk medication side effect and precaution education Description: STG Patient/caregiver will verbalize understanding of high risk medication side effects and precautions to be achieved by 05/08/24. LTG Patient/caregiver will continue to verbalize understanding of high risk medication side effects and precautions throughout certification period. High Risk Medications No Manage discharge planning Description: Patient/caregiver will verbalize understanding of ongoing discharge plan provided related to disease management, arrangements for outpatient and/or community services, obtaining medications, supplies, and DME, as needed throughout certification period. Discharge No Demonstrate understanding of education Description: Patient and/or caregiver will understand educational instruction to be achieved by .04/17/2024. OT Learning Assessment Completed Yes Eval only - goal not met. Improved ADLs/IADLs performance Description: patient will verbalize understanding of instructions and demonstrate improved performance of lower body dressing to minimum assistance as evidenced by improved Eber ADL Index score to at least 90 to be achieved by .04/17/2024. OT ADLs/IADLs Completed Yes Eval only - goal not met. Interventions Intervention Associated Problem/Goal Status Variance Visit Notes Medication Education Description: Evaluate/instruct patient/caregiver on obtaining, storing, identifying and administering ordered medications as well as keeping accurate medication list in the home and adhereing to medication schedule Problem:Medication Education Goal:Patient/careg iver will demonstrate ability to obtain, store, identify and administer ordered medications, keep accurate medication list in home, and adhere to medication schedule Completed Patient instructed on importance of keeping accurate medication list in home and need to take up-to-date medication list to all medical provider appointments. Instruct on depression symptoms and management Description: Pt did not score severe on screen but evidence of depression is present. Problem:Mental Health Goal:Improved management of mental health condition(s) Completed Patient instructed on the following: signs of depression and when to report symptoms to physician and importance of medication adherence. Instruct on coping strategies Problem:Mental Health Goal:Improved management of mental health condition(s) Completed Risk of Sepsis Description: Patient is at risk for sepsis. Monitor closely for s/s of sepsis. Problem:Sepsis Goal:Patient/careg iver will be able to identify and report symptoms of sepsis Completed OT evaluation and treatment Description: Evaluate and treat for the assessment of functional deficits and establishment of appropriate interventions and education to address: I/ADL training, DME/adaptive equipment recommendations, energy conservation specific to COPD, home safety and falls prevention recommendations and upper extremity strengthening and home exercise program training. Problem:OT Referral Goal:Patient will be referred to additional discipline as needed Completed Instruct on the risks and measures to be taken to prevent skin breakdown Problem:Risk for skin breakdown Goal:Manage risk for skin breakdown Completed ..Francois Low Risk: Patient and cg instructed on the following: skin Integrity and the need to inspect bony prominences, routine skin care, importance of maintaining activity as tolerated, elevating and protecting heels and incontinence care. Learning Assessment Patient and Caregiver verbalizes understanding and demonstrates understanding of instructions. Teaching methods used were verbal and teach back. SPO2 Description: Notify Dr. Fortune if pulse ox is <92% at rest. Problem:Physician Specific Parameters Goal:Patient to maintain parameters within physician-specifie d ranges throughout certification period Completed Instruct on individual fall risk factors and strategies to prevent falls and injuries caused by falls. Problem:Risk for Falls Goal:Manage Risk for falls Completed OT: Patient instructed on Eliminating Environmental Hazards: Keep pathways clear, Keep pets out of pathways, Move furniture from pathways, Wear supportive shoes or non-skid socks and Keep frequently used items within reach Instruct on pain and instruct on strategies to control pain Problem:Pain Goal:Manage Pain Completed ..Pain Assessment Patient report that since last visit, pain is unchanged. Patient report pain has been affecting physical activity and activities of daily living. Patient report using the following pain control techniques: activity modification, positioning techniques, strength and mobility exercises and cold therapy. Patient report the following associated symptoms: N/A. Patient report satisfaction with progress toward pain goal. Pain Education Patient educated on activity modification, positioning techniques and strength and mobility exercises. Learning Assessment Patient verbalizes understanding and demonstrates understanding of instructions. Teaching methods used were: verbal. Instruct on fire safety and safe and effective use of oxygen in the home Problem:Oxygen Goal:Manage oxygen Completed .Patient/Caregiver instructed on: precautions that can prevent fire-related injuries and oxygen safety as outlined in Home Care Patient Handbook Learning Assessment Patient and Caregiver verbalizes understanding and demonstrates understanding of instructions. Teaching methods used were verbal. Patient/Caregiver demonstrate compliant with safety recommendations. Define patient s appetite/hydration status and implement strategies to improve compliance with prescribed diet and/or healthy nutrition. Problem:Nutrition/ Hydration Goal:Manage Nutrition/Hydratio n Completed instructed patient on implementing strategies to comply with healthy nutrition and adequate hydration Antibiotic- educated on high risk medication Problem:High Risk Medications Goal:Patient/careg iver will teach back high risk medication side effect and precaution education Completed patient educated on taking medication(s) as prescribed by provider. Do not stop medication or alter doses without speaking with your provider. Discuss medication effectiveness or side effect concerns with your provider and home care team. Take the full dispensed amount even if you start feeling better, as bacteria can become resistant to antibiotic treatment if you do not finish your prescription. Common side effects are upset stomach and diarrhea. Take your antibiotics with food unless otherwise indicated to help with indigestion. Taking an urax-jem-[id number] probiotic or eating yogurt with live and active cultures three times a day can help prevent antibiotic-associat ed diarrhea. Call your provider immediately if you develop rashes or hives as this could be a delayed allergic reaction. Seek emergency treatment if you develop severe allergic reaction symptoms such as mouth or tongue swelling. Instruct on final discharge plan and deliver discharge instructions Problem:Discharge Goal:Manage discharge planning Completed Delivered Discharge plan: Discharge plan discussed with patient for plan for transition to: caregiver assistance Instruct on importance of follow-up appts and continued monitoring with medical provider &/or chronic care clinic Problem:Discharge Goal:Manage discharge planning Completed .Education provided on importance of compliance with follow-up appointment(s). Recommendations: patient/caregiver to follow up with appointments for post-acute/primary care provider/chronic care clinic Instruct and educate on knowledge deficits Problem:OT Learning Assessment Goal:Demonstrate understanding of education Completed .Instructed Patient on Energy Conservation, Work Simplification , Use Of Adaptive Methods To Manage Functional Limitations, Edema Reducing Strategies, Home Safety and Fall Prevention Learning Assessment Patient verbalizes understanding, demonstrates understanding and needs reinforcement of instructions. Teaching methods used were verbal and teach back ADL/IADLs Training Problem:OT ADLs/IADLs Goal:Improved ADLs/IADLs performance Completed with variance Patient unwilling .Pt declined further OT instruction. [facility] Visit Details Visit Type -SN ROUTINE Discipline -Prison Problems Problem Description Start Date Status Goals Interve ntions Medication Education Disciplines: Skilled Services 04/14/2024 Active 1 goal linked to scheduled/document ed intervention 1 goal intervention scheduled/documente d in this visit Mental Health Disciplines: Skilled Services 04/14/2024 Active 1 goal linked to scheduled/document ed intervention 2 goal interventions scheduled/documente d in this visit Risk for skin breakdown Disciplines: Skilled Services 04/14/2024 Active 1 goal linked to scheduled/document ed intervention 1 goal intervention scheduled/documente d in this visit Physician Specific Parameters Disciplines: Skilled Services 04/14/2024 Active 1 goal linked to scheduled/document ed intervention 1 goal intervention scheduled/documente d in this visit Risk for Falls Disciplines: Skilled Services 04/14/2024 Active 1 goal linked to scheduled/document ed intervention 1 goal intervention scheduled/documente d in this visit Pain Disciplines: Skilled Services 04/14/2024 Active 1 goal linked to scheduled/document ed intervention 1 goal intervention scheduled/documente d in this visit Nutrition/Hydra tion Disciplines: Skilled Services 04/14/2024 Active 1 goal linked to scheduled/document ed intervention 1 goal intervention scheduled/documente d in this visit High Risk Medications Disciplines: Skilled Services 04/14/2024 Active 1 goal linked to scheduled/document ed intervention 1 goal intervention scheduled/documente d in this visit Discharge Disciplines: Skilled Services 04/14/2024 Active 1 goal linked to scheduled/document ed intervention 1 goal intervention scheduled/documente d in this visit Goals Goal Associated Problem Outcome Goal Met? Visit Notes Patient/caregiver will demonstrate ability to obtain, store, identify and administer ordered medications, keep accurate medication list in home, and adhere to medication schedule Description: Patient/caregiver will demonstrate ability to obtain, store, identify and administer ordered medications, keep accurate medication list in home, and adhere to medication schedule by 05/21/24 . Medication Education No Improved management of mental health condition(s) Description: Patient/caregiver will teach back mental health symptom identification and management techniques by 06/12/24. Mental Health No Manage risk for skin breakdown Description: Patient/caregiver will verbalize and demonstrate understanding of the risks and measures to be taken to monitor and prevent skin breakdown by 05/24/24. Risk for skin breakdown No Patient to maintain parameters within physician-specified ranges throughout certification period Physician Specific Parameters No Manage Risk for falls Description: Patient/caregiver will verbalize knowledge of individualized fall prevention strategies by 06/12/24. Risk for Falls No Manage Pain Description: Patient/caregiver will verbalize knowledge and understanding of appropriate techniques to control pain, including pain medication and non-pharmacological techniques. Patient will verbalize or demonstrate an acceptable level of pain as evidenced by a pain score of <5/10 and improvement in ability to perform activities of daily living to be achieved by 06/12/24. Pain No Manage Nutrition/Hydration Description: Patient/caregiver will verbalize/demonstrate knowledge of prescribed diet and/or healthy nutrition to be achieved by 06/12/24. Nutrition/Hydration No Patient/caregiver will teach back high risk medication side effect and precaution education Description: STG Patient/caregiver will verbalize understanding of high risk medication side effects and precautions to be achieved by 05/08/24. LTG Patient/caregiver will continue to verbalize understanding of high risk medication side effects and precautions throughout certification period. High Risk Medications No Manage discharge planning Description: Patient/caregiver will verbalize understanding of ongoing discharge plan provided related to disease management, arrangements for outpatient and/or community services, obtaining medications, supplies, and DME, as needed throughout certification period. Discharge No Interventions Intervention Associated Problem/Goal Status Variance Visit Notes Medication Education Description: Evaluate/instruct patient/caregiver on obtaining, storing, identifying and administering ordered medications as well as keeping accurate medication list in the home and adhereing to medication schedule Problem:Medication Education Goal:Patient/caregive r will demonstrate ability to obtain, store, identify and administer ordered medications, keep accurate medication list in home, and adhere to medication schedule Completed Patient instructed on adhering to medication schedule. Instruct on depression symptoms and management Description: Pt did not score severe on screen but evidence of depression is present. Problem:Mental Health Goal:Improved management of mental health condition(s) Completed Patient instructed on the following: the importance of activity, the benefits of adequate nutrition and hydration and seeking support from family/friends. Instruct on coping strategies Problem:Mental Health Goal:Improved management of mental health condition(s) Completed Pt instructed on depression sx, importance of activity as tolerated. Instruct on the risks and measures to be taken to prevent skin breakdown Problem:Risk for skin breakdown Goal:Manage risk for skin breakdown Completed patient instructed on maintaining skin integrity including: The need for every 1-2 hour turns, position changes, and maintaining activity as tolerated SPO2 Description: Notify Dr. Fortune if pulse ox is <92% at rest. Problem:Physician Specific Parameters Goal:Patient to maintain parameters within physician-specified ranges throughout certification period Completed Instruct on individual fall risk factors and strategies to prevent falls and injuries caused by falls. Problem:Risk for Falls Goal:Manage Risk for falls Completed SN: Patient instructed on Eliminating Environmental Hazards: Keep pathways clear, Keep pets out of pathways and Keep rooms and walkways well lit Instruct on pain and instruct on strategies to control pain Problem:Pain Goal:Manage Pain Completed patient instructed on techniques to control pain including Pharmacological measures and Non-Pharmacological measures; rest. Define patient s appetite/hydration status and implement strategies to improve compliance with prescribed diet and/or healthy nutrition. Problem:Nutrition/Hyd ration Goal:Manage Nutrition/Hydration Completed reinforced patient on implementing strategies to comply with healthy nutrition and adequate hydration Antibiotic- educated on high risk medication Problem:High Risk Medications Goal:Patient/caregive r will teach back high risk medication side effect and precaution education Completed patient educated on taking medication(s) as prescribed by provider. Do not stop medication or alter doses without speaking with your provider. Discuss medication effectiveness or side effect concerns with your provider and home care team. Take the full dispensed amount even if you start feeling better, as bacteria can become resistant to antibiotic treatment if you do not finish your prescription. Common side effects are upset stomach and diarrhea. Take your antibiotics with food unless otherwise indicated to help with indigestion. Taking an oiks-ltb-drhxpnh probiotic or eating yogurt with live and active cultures three times a day can help prevent antibiotic-associated diarrhea. Call your provider immediately if you develop rashes or hives as this could be a delayed allergic reaction. Seek emergency treatment if you develop severe allergic reaction symptoms such as mouth or tongue swelling. Instruct on importance of follow-up appts and continued monitoring with medical provider &/or chronic care clinic Problem:Discharge Goal:Manage discharge planning Completed Education provided on importance of compliance with follow-up appointment(s). Recommendations: appointment scheduled for 04/21 with PCP documented in this encounter [facility] home Plan of care note* Visit Details Visit Type -SN ROUTINE Discipline -Prison Problems Problem Description Start Date Status Goals Interve ntions Medication Education Disciplines: Skilled Services 04/14/2024 Active 1 goal linked to scheduled/documen emelia intervention 1 goal intervention scheduled/document ed in this visit Mental Health Disciplines: Skilled Services 04/14/2024 Active 1 goal linked to scheduled/documen emelia intervention 2 goal interventions scheduled/document ed in this visit Sepsis Disciplines: Skilled Services 04/14/2024 Active 1 goal linked to scheduled/documen emelia intervention 1 goal intervention scheduled/document ed in this visit Risk for skin breakdown Disciplines: Skilled Services 04/14/2024 Active 1 goal linked to scheduled/documen emelia intervention 1 goal intervention scheduled/document ed in this visit Physician Specific Parameters Disciplines: Skilled Services 04/14/2024 Active 1 goal linked to scheduled/documen emelia intervention 1 goal intervention scheduled/document ed in this visit Risk for Falls Disciplines: Skilled Services 04/14/2024 Active 1 goal linked to scheduled/documen emelia intervention 1 goal intervention scheduled/document ed in this visit Pain Disciplines: Skilled Services 04/14/2024 Active 1 goal linked to scheduled/documen emelia intervention 1 goal intervention scheduled/document ed in this visit Oxygen Disciplines: Skilled Services 04/14/2024 Active 1 goal linked to scheduled/documen emelia intervention 1 goal intervention scheduled/document ed in this visit Nutrition/Hydration Disciplines: Skilled Services 04/14/2024 Active 1 goal linked to scheduled/documen emelia intervention 1 goal intervention scheduled/document ed in this visit High Risk Medications Disciplines: Skilled Services 04/14/2024 Active 1 goal linked to scheduled/documen emelia intervention 1 goal intervention scheduled/document ed in this visit Discharge Disciplines: Skilled Services 04/14/2024 Active 1 goal linked to scheduled/documen emelia intervention 2 goal interventions scheduled/document ed in this visit SN Respiratory Disease Disciplines: SN 04/14/2024 Active 1 goal linked to scheduled/documen emelia intervention 1 goal intervention scheduled/document ed in this visit SN Edema Disciplines: SN 04/14/2024 Active 1 goal linked to scheduled/documen emelia intervention 1 goal intervention scheduled/document ed in this visit SN Cardiovascular Condition Disciplines: SN 04/14/2024 Active 1 goal linked to scheduled/documen emelia intervention 1 goal intervention scheduled/document ed in this visit SN Learning Assessment Disciplines: SN 04/14/2024 Active 1 goal linked to scheduled/documen emelia intervention 1 goal intervention scheduled/document ed in this visit SN COPD Disciplines: SN 04/14/2024 Active 1 goal linked to scheduled/documen emelia intervention 1 goal intervention scheduled/document ed in this visit Goals Goal Associated Problem Outcome Goal Met? Visit Notes Patient/caregiver will demonstrate ability to obtain, store, identify and administer ordered medications, keep accurate medication list in home, and adhere to medication schedule Description: Patient/caregiver will demonstrate ability to obtain, store, identify and administer ordered medications, keep accurate medication list in home, and adhere to medication schedule by 05/21/24 . Medication Education No Improved management of mental health condition(s) Description: Patient/caregiver will teach back mental health symptom identification and management techniques by 06/12/24. Mental Health No Patient/caregiver will be able to identify and report symptoms of sepsis Description: Patient/caregiver will be able to identify signs/symptoms of sepsis infection and will verbalize actions to take if suspected by 06/12/24. Sepsis No Manage risk for skin breakdown Description: Patient/caregiver will verbalize and demonstrate understanding of the risks and measures to be taken to monitor and prevent skin breakdown by 05/24/24. Risk for skin breakdown No Patient to maintain parameters within physician-specified ranges throughout certification period Physician Specific Parameters No Manage Risk for falls Description: Patient/caregiver will verbalize knowledge of individualized fall prevention strategies by 06/12/24. Risk for Falls No Manage Pain Description: Patient/caregiver will verbalize knowledge and understanding of appropriate techniques to control pain, including pain medication and non-pharmacological techniques. Patient will verbalize or demonstrate an acceptable level of pain as evidenced by a pain score of <5/10 and improvement in ability to perform activities of daily living to be achieved by 06/12/24. Pain No Manage oxygen Description: Patient/caregiver will use oxygen safely and effectively in home by verbalizing and demonstrating oxygen safety by 06/12/24. Oxygen No Manage Nutrition/Hydration Description: Patient/caregiver will verbalize/demonstrate knowledge of prescribed diet and/or healthy nutrition to be achieved by 06/12/24. Nutrition/Hydration No Patient/caregiver will teach back high risk medication side effect and precaution education Description: STG Patient/caregiver will verbalize understanding of high risk medication side effects and precautions to be achieved by 05/08/24. LTG Patient/caregiver will continue to verbalize understanding of high risk medication side effects and precautions throughout certification period. High Risk Medications No Manage discharge planning Description: Patient/caregiver will verbalize understanding of ongoing discharge plan provided related to disease management, arrangements for outpatient and/or community services, obtaining medications, supplies, and DME, as needed throughout certification period. Discharge No Improved management of respiratory condition Description: Improve respiratory management as evidenced by patient/caregiver's ability to teach back strategies for improving respiratory status by 04/23/24. SN Respiratory Disease No Patient will have improved edema management Description: Patient/caregiver will demonstrate an understanding of edema management strategies as evidenced by resolution or stabilization of edema by 06/12/24. SN Edema No Improved management of cardiovascular disease Description: Improve patient/caregiver management of cardiac disease as evidenced by patient/caregiver ability to teach back cardiac management strategies by 05/24/24. SN Cardiovascular Condition No Demonstrate understanding of education Description: Patient and/or caregiver will verbalize understanding of educational instruction provided throughout certification period. SN Learning Assessment No Improved management of COPD Description: Improve COPD management as evidenced by decreased reports of dyspnea, medication compliance, and patient able to teach back strategies to manage condition. Goal to be achieved by 06/12/24. SN COPD No Interventions Intervention Associated Problem/Goal Status Variance Visit Notes Medication Education Description: Evaluate/instruct patient/caregiver on obtaining, storing, identifying and administering ordered medications as well as keeping accurate medication list in the home and adhereing to medication schedule Problem:Medication Education Goal:Patient/caregive r will demonstrate ability to obtain, store, identify and administer ordered medications, keep accurate medication list in home, and adhere to medication schedule Completed Patient instructed on importance of keeping accurate medication list in home, need to take up-to-date medication list to all medical provider appointments and adhering to medication schedule. Instruct on depression symptoms and management Description: Pt did not score severe on screen but evidence of depression is present. Problem:Mental Health Goal:Improved management of mental health condition(s) Completed Patient instructed on the following: signs of depression and when to report symptoms to physician, importance of medication adherence and record symptoms to assist with ongoing monitoring. Instruct on coping strategies Problem:Mental Health Goal:Improved management of mental health condition(s) Completed Risk of Sepsis Description: Patient is at risk for sepsis. Monitor closely for s/s of sepsis. Problem:Sepsis Goal:Patient/caregive r will be able to identify and report symptoms of sepsis Completed Instruct on the risks and measures to be taken to prevent skin breakdown Problem:Risk for skin breakdown Goal:Manage risk for skin breakdown Completed patient instructed on maintaining skin integrity including: Inspecting bony prominences, Routine skin care and Notifying [facility] clinician of changes to skin integrity Evaluation for pressure reduction surfaces completed for chair and recommendations made for ambulation. SPO2 Description: Notify Dr. Fortune if pulse ox is <92% at rest. Problem:Physician Specific Parameters Goal:Patient to maintain parameters within physician-specified ranges throughout certification period Completed Instruct on individual fall risk factors and strategies to prevent falls and injuries caused by falls. Problem:Risk for Falls Goal:Manage Risk for falls Completed SN: Patient instructed on Eliminating Environmental Hazards: Keep pathways clear, Keep pets out of pathways, Remove unsafe rugs, Move furniture from pathways, Keep rooms and walkways well lit, Install hand rails/grab bars and Wear supportive shoes or non-skid socks Instruct on pain and instruct on strategies to control pain Problem:Pain Goal:Manage Pain Completed patient instructed on techniques to control pain including Non-Pharmacological measures; rest, positioning/elevation and mobility/therapeutic exercise. Instruct on fire safety and safe and effective use of oxygen in the home Problem:Oxygen Goal:Manage oxygen Completed patient instructed on: oxygen safety as outlined in Home Care Patient Handbook patient demonstrate compliance with safety recommendations. Define patient s appetite/hydration status and implement strategies to improve compliance with prescribed diet and/or healthy nutrition. Problem:Nutrition/Hyd ration Goal:Manage Nutrition/Hydration Completed reinforced patient on implementing strategies to comply with prescribed diet, healthy nutrition and adequate hydration Antibiotic- educated on high risk medication Problem:High Risk Medications Goal:Patient/caregive r will teach back high risk medication side effect and precaution education Completed patient educated on taking medication(s) as prescribed by provider. Do not stop medication or alter doses without speaking with your provider. Discuss medication effectiveness or side effect concerns with your provider and home care team. Take the full dispensed amount even if you start feeling better, as bacteria can become resistant to antibiotic treatment if you do not finish your prescription. Common side effects are upset stomach and diarrhea. Take your antibiotics with food unless otherwise indicated to help with indigestion. Taking an [id number] probiotic or eating yogurt with live and active cultures three times a day can help prevent antibiotic-associated diarrhea. Call your provider immediately if you develop rashes or hives as this could be a delayed allergic reaction. Seek emergency treatment if you develop severe allergic reaction symptoms such as mouth or tongue swelling. Instruct on ongoing discharge plan Problem:Discharge Goal:Manage discharge planning Completed Ongoing Discharge plan: Discharge plan discussed with patient including frequency and duration for home SN and plan for transition to: caregiver assistance. Instruct on importance of follow-up appts and continued monitoring with medical provider &/or chronic care clinic Problem:Discharge Goal:Manage discharge planning Completed Education provided on importance of compliance with follow-up appointment(s). Recommendations: patient/caregiver to follow up with scheduling appointment(s) for post-acute/primary care provider/chronic care clinic Instruct on respiratory disease process and management of condition Description: Patient has following respiratory diagnosis(es): pneumonia Problem:SN Respiratory Disease Goal:Improved management of respiratory condition Completed patient and caregiver assessed and reinforced on respiratory disease process, zone sheet and self monitoring & symptom reporting. Assess and instruct on measures to reduce edema Problem:SN Edema Goal:Patient will have improved edema management Completed patient instructed on elevation, compression, diet and benefits of activity. Instruct on cardiovascular disease process and management of condition Description: Patient has following cardiac diagnosis(es): new dx of SVT; instruct on s/sx exacerbation, when to seek 911, follow up with cardiology. Problem:SN Cardiovascular Condition Goal:Improved management of cardiovascular disease Completed patient instructed on cardiac disease process, self monitoring & symptom reporting, DVT/PE prevention and Cardiac Diet. Instruct and educate on knowledge deficits Problem:SN Learning Assessment Goal:Demonstrate understanding of education Completed patient and caregiver verbalize and/or demonstrate understanding of nursing education completed today. Education methods include: verbal cues, tactile cues and written instructions. Further education required to improve knowledge and compliance with fall prevention/home safety strategies and pulmonary disease management. Sub-acute COPD Description: Reinforce Acute COPD management education. Instruct on zone sheet, methods to reduce infection risks, anxiety management including relaxation techniques, importance of sleep, stress reduction, and coping strategies for living with COPD as found in the COPD binder. Problem:SN COPD Goal:Improved management of COPD Completed Reinforced Acute COPD management education. patient reinforced on zone sheet and methods to reduce infection risks as found in the COPD binder. [facility] Visit Details Visit Type -PT EVAL Discipline -Physical Therapy Problems Problem Description Start Date Status Goals Interve ntions Medication Education Disciplines: Skilled Services 04/14/2024 Active 1 goal linked to scheduled/documen emelia intervention 1 goal intervention scheduled/document ed in this visit Sepsis Disciplines: Skilled Services 04/14/2024 Active 1 goal linked to scheduled/documen emelia intervention 1 goal intervention scheduled/document ed in this visit PT Referral Disciplines: Skilled Services 04/14/2024 Active 1 goal linked to scheduled/documen emelia intervention 1 goal intervention scheduled/document ed in this visit Physician Specific Parameters Disciplines: Skilled Services 04/14/2024 Active 1 goal linked to scheduled/documen emelia intervention 1 goal intervention scheduled/document ed in this visit Risk for Falls Disciplines: Skilled Services 04/14/2024 Active 1 goal linked to scheduled/documen emelia intervention 1 goal intervention scheduled/document ed in this visit Pain Disciplines: Skilled Services 04/14/2024 Active 1 goal linked to scheduled/documen emelia intervention 1 goal intervention scheduled/document ed in this visit Oxygen Disciplines: Skilled Services 04/14/2024 Active 1 goal linked to scheduled/documen emelia intervention 1 goal intervention scheduled/document ed in this visit Discharge Disciplines: Skilled Services 04/14/2024 Active 1 goal linked to scheduled/documen emelia intervention 1 goal intervention scheduled/document ed in this visit PT Impaired muscle performance and/or ROM Disciplines: PT 04/22/2024 Active 1 goal linked to scheduled/documen emelia intervention 1 goal intervention scheduled/document ed in this visit PT Impaired mobility Disciplines: PT 04/22/2024 Active 1 goal linked to scheduled/documen emelia intervention 1 goal intervention scheduled/document ed in this visit PT Impaired gait Disciplines: PT 04/22/2024 Active 1 goal linked to scheduled/documen emelia intervention 1 goal intervention scheduled/document ed in this visit PT Learning Assessment Disciplines: PT 04/22/2024 Active 1 goal linked to scheduled/documen emelia intervention 1 goal intervention scheduled/document ed in this visit PT Cardiovascular Disease Disciplines: PT 04/22/2024 Active 1 goal linked to scheduled/documen emelia intervention 1 goal intervention scheduled/document ed in this visit PT Pulmonary Disease Disciplines: PT 04/22/2024 Active 1 goal linked to scheduled/documen emelia intervention 1 goal intervention scheduled/document ed in this visit Goals Goal Associated Problem Outcome Goal Met? Visit Notes Patient/caregiver will demonstrate ability to obtain, store, identify and administer ordered medications, keep accurate medication list in home, and adhere to medication schedule Description: Patient/caregiver will demonstrate ability to obtain, store, identify and administer ordered medications, keep accurate medication list in home, and adhere to medication schedule by 05/21/24 . Medication Education No Patient/caregiver will be able to identify and report symptoms of sepsis Description: Patient/caregiver will be able to identify signs/symptoms of sepsis infection and will verbalize actions to take if suspected by 06/12/24. Sepsis No Patient will be referred to additional discipline as needed PT Referral No Patient to maintain parameters within physician-specified ranges throughout certification period Physician Specific Parameters No Manage Risk for falls Description: Patient/caregiver will verbalize knowledge of individualized fall prevention strategies by 06/12/24. Risk for Falls No Manage Pain Description: Patient/caregiver will verbalize knowledge and understanding of appropriate techniques to control pain, including pain medication and non-pharmacological techniques. Patient will verbalize or demonstrate an acceptable level of pain as evidenced by a pain score of <5/10 and improvement in ability to perform activities of daily living to be achieved by 06/12/24. Pain No Manage oxygen Description: Patient/caregiver will use oxygen safely and effectively in home by verbalizing and demonstrating oxygen safety by 06/12/24. Oxygen No Manage discharge planning Description: Patient/caregiver will verbalize understanding of ongoing discharge plan provided related to disease management, arrangements for outpatient and/or community services, obtaining medications, supplies, and DME, as needed throughout certification period. Discharge No Improved Muscle Performance and/or ROM Description: LTG: Patient will demonstrate improved muscle performance to meet functional goals as evidenced by ability to tolerate 8 mins of standing activity, to be achieved by 05/08/24. LTG: Patient and/or caregiver will verbalize/demonstrate independence with home exercise program, to improve functional mobility, to be achieved by 05/08/24. PT Impaired muscle performance and/or ROM No Improved Transfers Description: LTG: Patient will demonstrate safe transfers to/from bed, chair and toilet independently, to be achieved by 05/08/24. PT Impaired mobility No Improved Gait Description: LTG: Patient will demonstrate improved gait ability as evidenced by ambulation 200 feet with no device independently, to return to safe household ambulation, in order to reach car in the driveway, to be achieved by 05/08/24. PT Impaired gait No Demonstrate understanding of education Description: Patient and/or caregiver will understand educational instruction to be achieved by 05/08/24. PT Learning Assessment No Manage Cardiac Interventions Description: Improve patient and/or caregiver understanding of post surgical and/or non-surgical cardiac intervention management as evidenced by patient and/or caregiver able to verbalize, demonstrate, and teach back instruction, to be achieved by 05/08/24. PT Cardiovascular Disease No Manage Secondary Pulmonary Disease Description: Improve patient and/or caregiver understanding of secondary pulmonary disease management as evidenced by patient and/or caregiver able to verbalize, demonstrate, and teach back instruction, to be achieved by 05/08/24. PT Pulmonary Disease No Interventions Intervention Associated Problem/Goal Status Variance Visit Notes Medication Education Description: Evaluate/instruct patient/caregiver on obtaining, storing, identifying and administering ordered medications as well as keeping accurate medication list in the home and adhereing to medication schedule Problem:Medication Education Goal:Patient/caregive r will demonstrate ability to obtain, store, identify and administer ordered medications, keep accurate medication list in home, and adhere to medication schedule Completed Patient instructed on importance of keeping accurate medication list in home. Risk of Sepsis Description: Patient is at risk for sepsis. Monitor closely for s/s of sepsis. Problem:Sepsis Goal:Patient/caregive r will be able to identify and report symptoms of sepsis Completed PT evaluation and treatment Description: Evaluate and treat for the assessment of functional deficits and establishment of appropriate interventions and education, including recommendations for functional mobility training, balance training for fall reduction, and strengthening. Problem:PT Referral Goal:Patient will be referred to additional discipline as needed Completed SPO2 Description: Notify Dr. Fortune if pulse ox is <92% at rest. Problem:Physician Specific Parameters Goal:Patient to maintain parameters within physician-specified ranges throughout certification period Completed Instruct on individual fall risk factors and strategies to prevent falls and injuries caused by falls. Problem:Risk for Falls Goal:Manage Risk for falls Completed PT: Patient instructed on Managing Impaired Functional Mobility: Caregiver to provide assist with: Steps Instruct on pain and instruct on strategies to control pain Problem:Pain Goal:Manage Pain Completed patient instructed on techniques to control pain including Non-Pharmacological measures; rest, positioning/elevatio n and mobility/therapeutic exercise. Implement strategies to improve compliance with oxygen safety Problem:Oxygen Goal:Manage oxygen Completed Instructed on oxygen safety and compliance strategies including: Education. patient demonstrates understanding of safety recommendations. Instruct on ongoing discharge plan Problem:Discharge Goal:Manage discharge planning Completed Ongoing Discharge plan: Discharge plan discussed with patient including frequency and duration for home PT and plan for transition to: caregiver assistance. Physical Therapy Therapeutic Exercises Problem:PT Impaired muscle performance and/or ROM Goal:Improved Muscle Performance and/or ROM Completed Developed, implemented, and instructed patient and/or caregiver on strengthening exercises: ambulation every hour awake for a total of atleast 10 times a day to tolerance. Instructed patient and/or caregiver in HEP and progressed HEP to include: increased distance and time ambulation as tolerated. . Instructed patient and/or caregiver to perform HEP hourly Physical Therapy Transfer Training Problem:PT Impaired mobility Goal:Improved Transfers Completed Transfer training and instruction to patient on safe transfers to and from chair and toilet with supervision and verbal cues for sequence. Physical Therapy Gait Training Problem:PT Impaired gait Goal:Improved Gait Completed Gait training and instruction to patient on safe ambulation with no device for 50 feet with supervision, with verbal cues for corrections of gait deviations including sequence. Instruct and educate on knowledge deficits Problem:PT Learning Assessment Goal:Demonstrate understanding of education Completed patient verbalize and/or demonstrate understanding of physical therapy education including cardiac disease management, pulmonary disease management, fall prevention strategies, home safety, functional activity and home exercise program. Education methods include: verbal cues. Further education required to improve knowledge and compliance with fall prevention strategies, home safety, functional activity and home exercise program. Instruct on self-management of post surgical and/or non-surgical cardiac intervention Problem:PT Cardiovascular Disease Goal:Manage Cardiac Interventions Completed patient instructed on post-op management of use of RPE scale. Instruct on signs, symptoms, and management of secondary pulmonary disease Problem:PT Pulmonary Disease Goal:Manage Secondary Pulmonary Disease Completed patient instructed on use of RPE scale. documented in this encounter [facility] home Plan of care note* Visit Details Visit Type -SN ROUTINE Discipline -Prison Problems Problem Description Start Date Status Goals Interve ntions Medication Education Disciplines: Skilled Services 04/14/2024 Active 1 goal linked to scheduled/docume nted intervention 1 goal intervention scheduled/documen emelia in this visit Mental Health Disciplines: Skilled Services 04/14/2024 Active 1 goal linked to scheduled/docume nted intervention 1 goal intervention scheduled/documen emelia in this visit Sepsis Disciplines: Skilled Services 04/14/2024 Active 1 goal linked to scheduled/docume nted intervention 1 goal intervention scheduled/documen emelia in this visit [employer] Referral Disciplines: Skilled Services 04/14/2024 Resolved on 04/23/2024 1 goal linked to scheduled/docume nted intervention PT Referral Disciplines: Skilled Services 04/14/2024 Resolved on 04/23/2024 1 goal linked to scheduled/docume nted intervention Risk for skin breakdown Disciplines: Skilled Services 04/14/2024 Resolved on 04/23/2024 1 goal linked to scheduled/docume nted intervention Physician Specific Parameters Disciplines: Skilled Services 04/14/2024 Active 1 goal linked to scheduled/docume nted intervention 1 goal intervention scheduled/documen emelia in this visit Risk for Falls Disciplines: Skilled Services 04/14/2024 Active 1 goal linked to scheduled/docume nted intervention 1 goal intervention scheduled/documen emelia in this visit Pain Disciplines: Skilled Services 04/14/2024 Active 1 goal linked to scheduled/docume nted intervention 1 goal intervention scheduled/documen emelia in this visit Nutrition/Hydration Disciplines: Skilled Services 04/14/2024 Active 1 goal linked to scheduled/docume nted intervention 1 goal intervention scheduled/documen emelia in this visit SN Respiratory Disease Disciplines: 04/14/2024 Active 1 goal linked to scheduled/docume nted intervention 1 goal intervention scheduled/documen emelia in this visit SN Cardiovascular Condition Disciplines: 04/14/2024 Active 1 goal linked to scheduled/docume nted intervention 1 goal intervention scheduled/documen emelia in this visit SN Learning Assessment Disciplines: 04/14/2024 Active 1 goal linked to scheduled/docume nted intervention 1 goal intervention scheduled/documen emelia in this visit SN COPD Disciplines: 04/14/2024 Active 1 goal linked to scheduled/docume nted intervention 1 goal intervention scheduled/documen emelia in this visit Goals Goal Associated Problem Outcome Goal Met? Visit Notes Patient/caregiver will demonstrate ability to obtain, store, identify and administer ordered medications, keep accurate medication list in home, and adhere to medication schedule Description: Patient/caregiver will demonstrate ability to obtain, store, identify and administer ordered medications, keep accurate medication list in home, and adhere to medication schedule by 05/21/24 . Medication Education No Improved management of mental health condition(s) Description: Patient/caregiver will teach back mental health symptom identification and management techniques by 06/12/24. Mental Health No Patient/caregiver will be able to identify and report symptoms of sepsis Description: Patient/caregiver will be able to identify signs/symptoms of sepsis infection and will verbalize actions to take if suspected by 06/12/24. Sepsis No Patient will be referred to additional discipline as needed [employer] Referral Completed Yes Patient will be referred to additional discipline as needed PT Referral Completed Yes Manage risk for skin breakdown Description: Patient/caregiver will verbalize and demonstrate understanding of the risks and measures to be taken to monitor and prevent skin breakdown by 05/24/24. Risk for skin breakdown Completed Yes Patient to maintain parameters within physician-specified ranges throughout certification period Physician Specific Parameters No Manage Risk for falls Description: Patient/caregiver will verbalize knowledge of individualized fall prevention strategies by 06/12/24. Risk for Falls No Manage Pain Description: Patient/caregiver will verbalize knowledge and understanding of appropriate techniques to control pain, including pain medication and non-pharmacological techniques. Patient will verbalize or demonstrate an acceptable level of pain as evidenced by a pain score of <5/10 and improvement in ability to perform activities of daily living to be achieved by 06/12/24. Pain No Manage Nutrition/Hydration Description: Patient/caregiver will verbalize/demonstrate knowledge of prescribed diet and/or healthy nutrition to be achieved by 06/12/24. Nutrition/Hydration No Improved management of respiratory condition Description: Improve respiratory management as evidenced by patient/caregiver's ability to teach back strategies for improving respiratory status by 04/23/24. SN Respiratory Disease No Improved management of cardiovascular disease Description: Improve patient/caregiver management of cardiac disease as evidenced by patient/caregiver ability to teach back cardiac management strategies by 05/24/24. SN Cardiovascular Condition No Demonstrate understanding of education Description: Patient and/or caregiver will verbalize understanding of educational instruction provided throughout certification period. SN Learning Assessment No Improved management of COPD Description: Improve COPD management as evidenced by decreased reports of dyspnea, medication compliance, and patient able to teach back strategies to manage condition. Goal to be achieved by 06/12/24. SN COPD No Interventions Intervention Associated Problem/Goal Status Variance Visit Notes Medication Education Description: Evaluate/instruct patient/caregiver on obtaining, storing, identifying and administering ordered medications as well as keeping accurate medication list in the home and adhereing to medication schedule Problem:Medication Education Goal:Patient/caregive r will demonstrate ability to obtain, store, identify and administer ordered medications, keep accurate medication list in home, and adhere to medication schedule Completed Patient instructed on adhering to medication schedule. Instruct on depression symptoms and management Description: Pt did not score severe on screen but evidence of depression is present. Problem:Mental Health Goal:Improved management of mental health condition(s) Completed Patient instructed on the following: coping skills & techniques, the importance of activity, the benefits of adequate nutrition and hydration and seeking support from family/friends. Risk of Sepsis Description: Patient is at risk for sepsis. Monitor closely for s/s of sepsis. Problem:Sepsis Goal:Patient/caregive r will be able to identify and report symptoms of sepsis Completed SPO2 Description: Notify Dr. Fortune if pulse ox is <92% at rest. Problem:Physician Specific Parameters Goal:Patient to maintain parameters within physician-specified ranges throughout certification period Completed Instruct on individual fall risk factors and strategies to prevent falls and injuries caused by falls. Problem:Risk for Falls Goal:Manage Risk for falls Completed SN: Patient instructed on Eliminating Environmental Hazards: Keep pathways clear and Keep pets out of pathways Instruct on pain and instruct on strategies to control pain Problem:Pain Goal:Manage Pain Completed patient instructed on techniques to control pain including Pharmacological measures and Non-Pharmacological measures; mobility/therapeutic exercise and breathing/relaxation. Define patient s appetite/hydration status and implement strategies to improve compliance with prescribed diet and/or healthy nutrition. Problem:Nutrition/Hyd ration Goal:Manage Nutrition/Hydration Completed reinforced patient on implementing strategies to comply with healthy nutrition and adequate hydration Instruct on respiratory disease process and management of condition Description: Patient has following respiratory diagnosis(es): pneumonia Problem:SN Respiratory Disease Goal:Improved management of respiratory condition Completed patient assessed and reinforced on self monitoring & symptom reporting. Instruct on cardiovascular disease process and management of condition Description: Patient has following cardiac diagnosis(es): new dx of SVT; instruct on s/sx exacerbation, when to seek 911, follow up with cardiology. Problem:SN Cardiovascular Condition Goal:Improved management of cardiovascular disease Completed patient instructed on self monitoring & symptom reporting. Instruct and educate on knowledge deficits Problem:SN Learning Assessment Goal:Demonstrate understanding of education Completed patient verbalize and/or demonstrate understanding of nursing education completed today. Education methods include: verbal cues. Further education required to improve knowledge and compliance with cardiac disease management, fall prevention/home safety strategies, medication management, nutrition, pain management and pulmonary disease management. Sub-acute COPD Description: Reinforce Acute COPD management education. Instruct on zone sheet, methods to reduce infection risks, anxiety management including relaxation techniques, importance of sleep, stress reduction, and coping strategies for living with COPD as found in the COPD binder. Problem:SN COPD Goal:Improved management of COPD Completed Reinforced Acute COPD management education. patient reinforced on zone sheet, methods to reduce infection risks, anxiety management including: relaxation techniques, importance of sleep and stress reduction and coping strategies for living with COPD as found in the COPD binder. documented in this encounter [facility]'s home Plan of care note* Visit Details Visit Type -SN ROUTINE Discipline -Prison Problems Problem Description Start Date Status Goals Interve ntions Medication Education Disciplines: Skilled Services 04/14/2024 Active 1 goal linked to scheduled/documen emelia intervention 1 goal intervention scheduled/document ed in this visit Mental Health Disciplines: Skilled Services 04/14/2024 Active 1 goal linked to scheduled/documen emelia intervention 2 goal interventions scheduled/document ed in this visit Sepsis Disciplines: Skilled Services 04/14/2024 Active 1 goal linked to scheduled/documen emelia intervention 1 goal intervention scheduled/document ed in this visit Physician Specific Parameters Disciplines: Skilled Services 04/14/2024 Active 1 goal linked to scheduled/documen emelia intervention 1 goal intervention scheduled/document ed in this visit Risk for Falls Disciplines: Skilled Services 04/14/2024 Active 1 goal linked to scheduled/documen emelia intervention 1 goal intervention scheduled/document ed in this visit Pain Disciplines: Skilled Services 04/14/2024 Active 1 goal linked to scheduled/documen emelia intervention 1 goal intervention scheduled/document ed in this visit Oxygen Disciplines: Skilled Services 04/14/2024 Active 1 goal linked to scheduled/documen emelia intervention 2 goal interventions scheduled/document ed in this visit Nutrition/Hydration Disciplines: Skilled Services 04/14/2024 Active 1 goal linked to scheduled/documen emelia intervention 1 goal intervention scheduled/document ed in this visit High Risk Medications Disciplines: Skilled Services 04/14/2024 Active 1 goal linked to scheduled/documen emelia intervention 1 goal intervention scheduled/document ed in this visit Discharge Disciplines: Skilled Services 04/14/2024 Active 1 goal linked to scheduled/documen emelia intervention 2 goal interventions scheduled/document ed in this visit SN Respiratory Disease Disciplines: SN 04/14/2024 Active 1 goal linked to scheduled/documen emelia intervention 1 goal intervention scheduled/document ed in this visit SN Edema Disciplines: SN 04/14/2024 Active 1 goal linked to scheduled/documen emelia intervention 1 goal intervention scheduled/document ed in this visit SN Cardiovascular Condition Disciplines: SN 04/14/2024 Active 1 goal linked to scheduled/documen emelia intervention 1 goal intervention scheduled/document ed in this visit SN Learning Assessment Disciplines: SN 04/14/2024 Active 1 goal linked to scheduled/documen emelia intervention 1 goal intervention scheduled/document ed in this visit SN COPD Disciplines: 04/14/2024 Active 1 goal linked to scheduled/documen emelia intervention 1 goal intervention scheduled/document ed in this visit SN Gastrointestinal Disciplines: 04/14/2024 Active 1 goal linked to scheduled/documen emelia intervention 1 goal intervention scheduled/document ed in this visit Goals Goal Associated Problem Outcome Goal Met? Visit Notes Patient/caregiver will demonstrate ability to obtain, store, identify and administer ordered medications, keep accurate medication list in home, and adhere to medication schedule Description: Patient/caregiver will demonstrate ability to obtain, store, identify and administer ordered medications, keep accurate medication list in home, and adhere to medication schedule by 05/21/24 . Medication Education No Improved management of mental health condition(s) Description: Patient/caregiver will teach back mental health symptom identification and management techniques by 06/12/24. Mental Health No Patient/caregiver will be able to identify and report symptoms of sepsis Description: Patient/caregiver will be able to identify signs/symptoms of sepsis infection and will verbalize actions to take if suspected by 06/12/24. Sepsis No Patient to maintain parameters within physician-specified ranges throughout certification period Physician Specific Parameters No Manage Risk for falls Description: Patient/caregiver will verbalize knowledge of individualized fall prevention strategies by 06/12/24. Risk for Falls No Manage Pain Description: Patient/caregiver will verbalize knowledge and understanding of appropriate techniques to control pain, including pain medication and non-pharmacological techniques. Patient will verbalize or demonstrate an acceptable level of pain as evidenced by a pain score of <5/10 and improvement in ability to perform activities of daily living to be achieved by 06/12/24. Pain No Manage oxygen Description: Patient/caregiver will use oxygen safely and effectively in home by verbalizing and demonstrating oxygen safety by 06/12/24. Oxygen No Manage Nutrition/Hydration Description: Patient/caregiver will verbalize/demonstrate knowledge of prescribed diet and/or healthy nutrition to be achieved by 06/12/24. Nutrition/Hydration No Patient/caregiver will teach back high risk medication side effect and precaution education Description: STG Patient/caregiver will verbalize understanding of high risk medication side effects and precautions to be achieved by 05/08/24. LTG Patient/caregiver will continue to verbalize understanding of high risk medication side effects and precautions throughout certification period. High Risk Medications No Manage discharge planning Description: Patient/caregiver will verbalize understanding of ongoing discharge plan provided related to disease management, arrangements for outpatient and/or community services, obtaining medications, supplies, and DME, as needed throughout certification period. Discharge No Improved management of respiratory condition Description: Improve respiratory management as evidenced by patient/caregiver's ability to teach back strategies for improving respiratory status by 04/23/24. SN Respiratory Disease No Patient will have improved edema management Description: Patient/caregiver will demonstrate an understanding of edema management strategies as evidenced by resolution or stabilization of edema by 06/12/24. SN Edema No Improved management of cardiovascular disease Description: Improve patient/caregiver management of cardiac disease as evidenced by patient/caregiver ability to teach back cardiac management strategies by 05/24/24. SN Cardiovascular Condition No Demonstrate understanding of education Description: Patient and/or caregiver will verbalize understanding of educational instruction provided throughout certification period. SN Learning Assessment No Improved management of COPD Description: Improve COPD management as evidenced by decreased reports of dyspnea, medication compliance, and patient able to teach back strategies to manage condition. Goal to be achieved by 06/12/24. SN COPD No Improved management of GI disease/condition Description: Patient/Caregiver will demonstrate understanding of GI education as evidenced by improved management of gastrointestinal disease/condition by 04/23/24. SN Gastrointestinal No Interventions Intervention Associated Problem/Goal Status Variance Visit Notes Medication Education Description: Evaluate/instruct patient/caregiver on obtaining, storing, identifying and administering ordered medications as well as keeping accurate medication list in the home and adhereing to medication schedule Problem:Medication Education Goal:Patient/caregiver will demonstrate ability to obtain, store, identify and administer ordered medications, keep accurate medication list in home, and adhere to medication schedule Completed Patient and Caregiver instructed on importance of keeping accurate medication list in home, adhering to medication schedule and Medication, route, dose, frequency, purpose, and side effects of all medications. Instruct on depression symptoms and management Description: Pt did not score severe on screen but evidence of depression is present. Problem:Mental Health Goal:Improved management of mental health condition(s) Completed Patient instructed on the following: signs of depression and when to report symptoms to physician. Instruct on coping strategies Problem:Mental Health Goal:Improved management of mental health condition(s) Completed Risk of Sepsis Description: Patient is at risk for sepsis. Monitor closely for s/s of sepsis. Problem:Sepsis Goal:Patient/caregiver will be able to identify and report symptoms of sepsis Completed SPO2 Description: Notify Dr. Fortune if pulse ox is <92% at rest. Problem:Physician Specific Parameters Goal:Patient to maintain parameters within physician-specified ranges throughout certification period Completed Instruct on individual fall risk factors and strategies to prevent falls and injuries caused by falls. Problem:Risk for Falls Goal:Manage Risk for falls Completed SN: Patient and Caregiver instructed on Eliminating Environmental Hazards: Keep pathways clear, Keep pets out of pathways, Remove unsafe rugs, Move furniture from pathways and Keep rooms and walkways well lit Managing Cognitive Impairment/Depression : Recommended use of visual cues/reminders for safety Instruct on pain and instruct on strategies to control pain Problem:Pain Goal:Manage Pain Completed patient instructed on techniques to control pain including Pharmacological measures. Instruct on fire safety and safe and effective use of oxygen in the home Problem:Oxygen Goal:Manage oxygen Completed patient instructed on: findings of safety risk assessment, causes of fires, firerisks for neighboring residences and buildings and precautions that can prevent fire-related injuries patient demonstrate compliance with safety recommendations. Implement strategies to improve compliance with oxygen safety Problem:Oxygen Goal:Manage oxygen Completed Instructed on oxygen safety and compliance strategies including: Education. . patient demonstrates understanding of safety recommendations. Define patient s appetite/hydration status and implement strategies to improve compliance with prescribed diet and/or healthy nutrition. Problem:Nutrition/Hydr ation Goal:Manage Nutrition/Hydration Completed instructed patient on implementing strategies to comply with healthy nutrition and adequate hydration Antibiotic- educated on high risk medication Problem:High Risk Medications Goal:Patient/caregiver will teach back high risk medication side effect and precaution education Completed patient educated on taking medication(s) as prescribed by provider. Do not stop medication or alter doses without speaking with your provider. Discuss medication effectiveness or side effect concerns with your provider and home care team. Take the full dispensed amount even if you start feeling better, as bacteria can become resistant to antibiotic treatment if you do not finish your prescription. Common side effects are upset stomach and diarrhea. Take your antibiotics with food unless otherwise indicated to help with indigestion. Taking an [id number] probiotic or eating yogurt with live and active cultures three times a day can help prevent antibiotic-associated diarrhea. Call your provider immediately if you develop rashes or hives as this could be a delayed allergic reaction. Seek emergency treatment if you develop severe allergic reaction symptoms such as mouth or tongue swelling. Instruct on ongoing discharge plan Problem:Discharge Goal:Manage discharge planning Completed Ongoing Discharge plan: Discharge plan discussed with patient including frequency and duration for home SN and plan for transition to: live independently at home without ongoing services. Instruct on importance of follow-up appts and continued monitoring with medical provider &/or chronic care clinic Problem:Discharge Goal:Manage discharge planning Completed Education provided on importance of compliance with follow-up appointment(s). Recommendations: None Instruct on respiratory disease process and management of condition Description: Patient has following respiratory diagnosis(es): pneumonia Problem:SN Respiratory Disease Goal:Improved management of respiratory condition Completed patient assessed and instructed on respiratory disease process. Assess and instruct on measures to reduce edema Problem:SN Edema Goal:Patient will have improved edema management Completed none noted Instruct on cardiovascular disease process and management of condition Description: Patient has following cardiac diagnosis(es): new dx of SVT; instruct on s/sx exacerbation, when to seek 911, follow up with cardiology. Problem:SN Cardiovascular Condition Goal:Improved management of cardiovascular disease Completed patient instructed on self monitoring & symptom reporting. Instruct and educate on knowledge deficits Problem:SN Learning Assessment Goal:Demonstrate understanding of education Completed patient verbalize and/or demonstrate understanding of nursing education completed today. Education methods include: verbal cues and teach back. Further education required to improve knowledge and compliance with cardiac disease management, fall prevention/home safety strategies, medication management, nutrition, oxygen safety, pain management and pulmonary disease management. Maintenance COPD Description: Reinforce Acute and Sub-acute management education. Instruct on review zone sheet, nutrition in relation to COPD management, energy conservation, pacing activities, independence in ADLs vs what caregiver should be helping with, home exercise, additional COPD resources available like chronic care clinics as found in the COPD binder. Problem:SN COPD Goal:Improved management of COPD Completed Reinforced Acute and Sub-acute management education. patient instructed on nutrition in relation to COPD management as found in the COPD binder. 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 Discipline -Physical Therapy Problems Problem Description Start Date Status Goals Interve ntions Medication Education Disciplines: Skilled Services 04/14/2024 Active 1 goal linked to scheduled/document ed intervention 1 goal intervention scheduled/document ed in this visit Physician Specific Parameters Disciplines: Skilled Services 04/14/2024 Active 1 goal linked to scheduled/document ed intervention 1 goal intervention scheduled/document ed in this visit Risk for Falls Disciplines: Skilled Services 04/14/2024 Active 1 goal linked to scheduled/document ed intervention 1 goal intervention scheduled/document ed in this visit Pain Disciplines: Skilled Services 04/14/2024 Active 1 goal linked to scheduled/document ed intervention 1 goal intervention scheduled/document ed in this visit Oxygen Disciplines: Skilled Services 04/14/2024 Active 1 goal linked to scheduled/document ed intervention 1 goal intervention scheduled/document ed in this visit Nutrition/Hydrati on Disciplines: Skilled Services 04/14/2024 Active 1 goal linked to scheduled/document ed intervention 1 goal intervention scheduled/document ed in this visit Discharge Disciplines: Skilled Services 04/14/2024 Active 1 goal linked to scheduled/document ed intervention 1 goal intervention scheduled/document ed in this visit PT Impaired Aerobic Capacity Disciplines: PT 04/22/2024 Active 1 goal linked to scheduled/document ed intervention 1 goal intervention scheduled/document ed in this visit PT Impaired muscle performance and/or ROM Disciplines: PT 04/22/2024 Active 1 goal linked to scheduled/document ed intervention 1 goal intervention scheduled/document ed in this visit PT Impaired gait Disciplines: PT 04/22/2024 Active 1 goal linked to scheduled/document ed intervention 1 goal intervention scheduled/document ed in this visit PT Learning Assessment Disciplines: PT 04/22/2024 Active 1 goal linked to scheduled/document ed intervention 1 goal intervention scheduled/document ed in this visit PT Pulmonary Disease Disciplines: PT 04/22/2024 Active 1 goal linked to scheduled/document ed intervention 1 goal intervention scheduled/document ed in this visit Goals Goal Associated Problem Outcome Goal Met? Visit Notes Patient/caregiver will demonstrate ability to obtain, store, identify and administer ordered medications, keep accurate medication list in home, and adhere to medication schedule Description: Patient/caregiver will demonstrate ability to obtain, store, identify and administer ordered medications, keep accurate medication list in home, and adhere to medication schedule by 05/21/24 . Medication Education No Patient to maintain parameters within physician-specified ranges throughout certification period Physician Specific Parameters No Manage Risk for falls Description: Patient/caregiver will verbalize knowledge of individualized fall prevention strategies by 06/12/24. Risk for Falls No Manage Pain Description: Patient/caregiver will verbalize knowledge and understanding of appropriate techniques to control pain, including pain medication and non-pharmacological techniques. Patient will verbalize or demonstrate an acceptable level of pain as evidenced by a pain score of <5/10 and improvement in ability to perform activities of daily living to be achieved by 06/12/24. Pain No Manage oxygen Description: Patient/caregiver will use oxygen safely and effectively in home by verbalizing and demonstrating oxygen safety by 06/12/24. Oxygen No Manage Nutrition/Hydration Description: Patient/caregiver will verbalize/demonstrate knowledge of prescribed diet and/or healthy nutrition to be achieved by 06/12/24. Nutrition/Hydration No Manage discharge planning Description: Patient/caregiver will verbalize understanding of ongoing discharge plan provided related to disease management, arrangements for outpatient and/or community services, obtaining medications, supplies, and DME, as needed throughout certification period. Discharge No Improved Aerobic Capacity Description: LTG: Patient will demonstrate improved aerobic capacity to meet functional goals as evidenced by Rate of Percieved Exertion (RPE) of 0-2/10 during standing activity, to be achieved by 05/08/24. PT Impaired Aerobic Capacity No Improved Muscle Performance and/or ROM Description: LTG: Patient will demonstrate improved muscle performance to meet functional goals as evidenced by ability to tolerate 8 mins of standing activity, to be achieved by 05/08/24. LTG: Patient and/or caregiver will verbalize/demonstrate independence with home exercise program, to improve functional mobility, to be achieved by 05/08/24. PT Impaired muscle performance and/or ROM No Improved Gait Description: LTG: Patient will demonstrate improved gait ability as evidenced by ambulation 200 feet with no device independently, to return to safe household ambulation, in order to reach car in the driveway, to be achieved by 05/08/24. PT Impaired gait No Demonstrate understanding of education Description: Patient and/or caregiver will understand educational instruction to be achieved by 05/08/24. PT Learning Assessment No Manage Secondary Pulmonary Disease Description: Improve patient and/or caregiver understanding of secondary pulmonary disease management as evidenced by patient and/or caregiver able to verbalize, demonstrate, and teach back instruction, to be achieved by 05/08/24. PT Pulmonary Disease No Interventions Intervention Associated Problem/Goal Status Variance Visit Notes Medication Education Description: Evaluate/instruct patient/caregiver on obtaining, storing, identifying and administering ordered medications as well as keeping accurate medication list in the home and adhereing to medication schedule Problem:Medication Education Goal:Patient/caregive r will demonstrate ability to obtain, store, identify and administer ordered medications, keep accurate medication list in home, and adhere to medication schedule Completed Patient instructed on adhering to medication schedule. SPO2 Description: Notify Dr. Fortune if pulse ox is <92% at rest. Problem:Physician Specific Parameters Goal:Patient to maintain parameters within physician-specified ranges throughout certification period Completed Instruct on individual fall risk factors and strategies to prevent falls and injuries caused by falls. Problem:Risk for Falls Goal:Manage Risk for falls Completed PT: Patient instructed on Eliminating Environmental Hazards: Remove unsafe rugs, Keep rooms and walkways well lit, Wear supportive shoes or non-skid socks, Keep frequently used items within reach and oxygen tubing mngmt. Managing Impaired Functional Mobility: Use assistive device(s): front wheeled walker Managing Pain Instruct on pain and instruct on strategies to control pain Problem:Pain Goal:Manage Pain Completed patient instructed on techniques to control pain including Pharmacological measures and Non-Pharmacological measures; positioning/elevation, mobility/therapeutic exercise, use of DME/assistive devices and use of thermal modalities, apply ice or heat to affected area for the following prescribed frequency: 20 min on at a time as needed for pain. Instruct on fire safety and safe and effective use of oxygen in the home Problem:Oxygen Goal:Manage oxygen Completed patient instructed on: oxygen safety as outlined in Home Care Patient Handbook patient demonstrate compliance with safety recommendations. Define patient s appetite/hydration status and implement strategies to improve compliance with prescribed diet and/or healthy nutrition. Problem:Nutrition/Hyd ration Goal:Manage Nutrition/Hydration Completed reinforced patient on implementing strategies to comply with healthy nutrition and adequate hydration Instruct on ongoing discharge plan Problem:Discharge Goal:Manage discharge planning Completed Ongoing Discharge plan: Discharge plan discussed with patient including frequency and duration for home PT and plan for transition to: caregiver assistance. Physical Therapy Aerobic Capacity Training Problem:PT Impaired Aerobic Capacity Goal:Improved Aerobic Capacity Completed patient instructed on utilization of the Rate of Percieved Exertion (RPE) scale, to not exceed 3-6/10 indicating moderate to heavy intensity of activity. Developed, implemented, and instructed caregiver on physical therapy interventions completing 10 minutes of paced and physiologically monitored activity. Physical Therapy Therapeutic Exercises Problem:PT Impaired muscle performance and/or ROM Goal:Improved Muscle Performance and/or ROM Completed patient instructed on strengthening exercises including AP, LAQ, seated gentle trunk rotation stretch to each side 3x holding 15 secs, and standing ther ex holding on at sink to assist stability: calf raises, mini squats, slow marching 10x each and ham curls 7x each alt LE with 2 rests with verbal and written cues for posture and pacing. patient instructed to perform home exercise program 1-2x/day which included above and to ambulate hourly. Instructed if unable to ambulate due to pain, try standing in front of chair as long as able (try for a few min) with attn to posture. Physical Therapy Gait Training Problem:PT Impaired gait Goal:Improved Gait Completed Gait training and instruction to patient on safe ambulation with front wheeled walker for 80 feet with supervision and stand by assist, with verbal cues for corrections of gait deviations including posture, cues to keep walker closer to him, oxygen tubing mngmt, and cues to complete turns more slowly; to take a few steps and walker placements to complete turns. Instruct and educate on knowledge deficits Problem:PT Learning Assessment Goal:Demonstrate understanding of education Completed patient verbalize and/or demonstrate understanding of physical therapy education including cardiac disease management, pulmonary disease management, fall prevention strategies, home safety, functional activity and home exercise program. Education methods include: verbal cues. Further education required to improve knowledge and compliance with fall prevention strategies, home safety, functional activity and home exercise program. Instruct on signs, symptoms, and management of secondary pulmonary disease Problem:PT Pulmonary Disease Goal:Manage Secondary Pulmonary Disease Completed patient instructed on exercise and activity guidelines. [facility] Visit Details Visit Type -SN ROUTINE Discipline -Prison Problems Problem Description Start Date Status Goals Interve ntions Medication Education Disciplines: Skilled Services 04/14/2024 Active 1 goal linked to scheduled/documen emelia intervention 1 goal intervention scheduled/document ed in this visit Mental Health Disciplines: Skilled Services 04/14/2024 Active 1 goal linked to scheduled/documen emelia intervention 1 goal intervention scheduled/document ed in this visit Sepsis Disciplines: Skilled Services 04/14/2024 Active 1 goal linked to scheduled/documen emelia intervention 1 goal intervention scheduled/document ed in this visit Physician Specific Parameters Disciplines: Skilled Services 04/14/2024 Active 1 goal linked to scheduled/documen emelia intervention 1 goal intervention scheduled/document ed in this visit Nutrition/Hydration Disciplines: Skilled Services 04/14/2024 Active 1 goal linked to scheduled/documen emelia intervention 1 goal intervention scheduled/document ed in this visit SN Edema Disciplines: SN 04/14/2024 Active 1 goal linked to scheduled/documen emelia intervention 1 goal intervention scheduled/document ed in this visit SN Cardiovascular Condition Disciplines: 04/14/2024 Active 1 goal linked to scheduled/documen emelia intervention 1 goal intervention scheduled/document ed in this visit SN Learning Assessment Disciplines: SN 04/14/2024 Active 1 goal linked to scheduled/documen emelia intervention 1 goal intervention scheduled/document ed in this visit SN COPD Disciplines: SN 04/14/2024 Active 1 goal linked to scheduled/documen emelia intervention 1 goal intervention scheduled/document ed in this visit Goals Goal Associated Problem Outcome Goal Met? Visit Notes Patient/caregiver will demonstrate ability to obtain, store, identify and administer ordered medications, keep accurate medication list in home, and adhere to medication schedule Description: Patient/caregiver will demonstrate ability to obtain, store, identify and administer ordered medications, keep accurate medication list in home, and adhere to medication schedule by 05/21/24 . Medication Education No Improved management of mental health condition(s) Description: Patient/caregiver will teach back mental health symptom identification and management techniques by 06/12/24. Mental Health No Patient/caregiver will be able to identify and report symptoms of sepsis Description: Patient/caregiver will be able to identify signs/symptoms of sepsis infection and will verbalize actions to take if suspected by 06/12/24. Sepsis No Patient to maintain parameters within physician-specified ranges throughout certification period Physician Specific Parameters No Manage Nutrition/Hydration Description: Patient/caregiver will verbalize/demonstrate knowledge of prescribed diet and/or healthy nutrition to be achieved by 06/12/24. Nutrition/Hydration No Patient will have improved edema management Description: Patient/caregiver will demonstrate an understanding of edema management strategies as evidenced by resolution or stabilization of edema by 06/12/24. SN Edema No Improved management of cardiovascular disease Description: Improve patient/caregiver management of cardiac disease as evidenced by patient/caregiver ability to teach back cardiac management strategies by 05/24/24. SN Cardiovascular Condition No Demonstrate understanding of education Description: Patient and/or caregiver will verbalize understanding of educational instruction provided throughout certification period. SN Learning Assessment No Improved management of COPD Description: Improve COPD management as evidenced by decreased reports of dyspnea, medication compliance, and patient able to teach back strategies to manage condition. Goal to be achieved by 06/12/24. SN COPD No Interventions Intervention Associated Problem/Goal Status Variance Visit Notes Medication Education Description: Evaluate/instruct patient/caregiver on obtaining, storing, identifying and administering ordered medications as well as keeping accurate medication list in the home and adhereing to medication schedule Problem:Medication Education Goal:Patient/caregiver will demonstrate ability to obtain, store, identify and administer ordered medications, keep accurate medication list in home, and adhere to medication schedule Completed Patient instructed on importance of keeping accurate medication list in home, need to take up-to-date medication list to all medical provider appointments and adhering to medication schedule. Instruct on coping strategies Problem:Mental Health Goal:Improved management of mental health condition(s) Completed Risk of Sepsis Description: Patient is at risk for sepsis. Monitor closely for s/s of sepsis. Problem:Sepsis Goal:Patient/caregiver will be able to identify and report symptoms of sepsis Completed SPO2 Description: Notify Dr. Fortune if pulse ox is <92% at rest. Problem:Physician Specific Parameters Goal:Patient to maintain parameters within physician-specified ranges throughout certification period Completed Define patient s appetite/hydration status and implement strategies to improve compliance with prescribed diet and/or healthy nutrition. Problem:Nutrition/Hydr ation Goal:Manage Nutrition/Hydration Completed instructed patient on implementing strategies to comply with healthy nutrition and adequate hydration Assess and instruct on measures to reduce edema Problem:SN Edema Goal:Patient will have improved edema management Completed patient instructed on ice and medication compliance. Instruct on cardiovascular disease process and management of condition Description: Patient has following cardiac diagnosis(es): new dx of SVT; instruct on s/sx exacerbation, when to seek 911, follow up with cardiology. Problem:SN Cardiovascular Condition Goal:Improved management of cardiovascular disease Completed patient instructed on cardiac disease process. Instruct and educate on knowledge deficits Problem:SN Learning Assessment Goal:Demonstrate understanding of education Completed patient verbalize and/or demonstrate understanding of nursing education completed today. Education methods include: verbal cues. Further education required to improve knowledge and compliance with fall prevention/home safety strategies, medication management, pain management and pulmonary disease management. Maintenance COPD Description: Reinforce Acute and Sub-acute management education. Instruct on review zone sheet, nutrition in relation to COPD management, energy conservation, pacing activities, independence in ADLs vs what caregiver should be helping with, home exercise, additional COPD resources available like chronic care clinics as found in the COPD binder. Problem:SN COPD Goal:Improved management of COPD Completed Reinforced Acute and Sub-acute management education. patient instructed on zone sheet, nutrition in relation to COPD management and energy conservation pacing activities and [place] in ADLs vs what caregiver should be helping with as found in the COPD binder. documented in this encounter [facility] home Plan of care note* Visit Details Visit Type -PT REASSESSMENT Discipline -Physical Therapy Problems Problem Description Start Date Status Goals Interve ntions Medication Education Disciplines: Skilled Services 04/14/2024 Active 1 goal linked to scheduled/documen emelia intervention 1 goal intervention scheduled/document ed in this visit Sepsis Disciplines: Skilled Services 04/14/2024 Active 1 goal linked to scheduled/documen emelia intervention 1 goal intervention scheduled/document ed in this visit Physician Specific Parameters Disciplines: Skilled Services 04/14/2024 Active 1 goal linked to scheduled/documen emelia intervention 1 goal intervention scheduled/document ed in this visit Risk for Falls Disciplines: Skilled Services 04/14/2024 Active 1 goal linked to scheduled/documen emelia intervention 1 goal intervention scheduled/document ed in this visit Pain Disciplines: Skilled Services 04/14/2024 Active 1 goal linked to scheduled/documen emelia intervention 1 goal intervention scheduled/document ed in this visit Oxygen Disciplines: Skilled Services 04/14/2024 Active 1 goal linked to scheduled/documen emelia intervention 1 goal intervention scheduled/document ed in this visit Discharge Disciplines: Skilled Services 04/14/2024 Active 1 goal linked to scheduled/documen emelia intervention 1 goal intervention scheduled/document ed in this visit PT Impaired mobility Disciplines: PT 04/22/2024 Active 1 goal linked to scheduled/documen emelia intervention 1 goal intervention scheduled/document ed in this visit PT Impaired gait Disciplines: PT 04/22/2024 Active 1 goal linked to scheduled/documen emelia intervention 1 goal intervention scheduled/document ed in this visit PT Learning Assessment Disciplines: PT 04/22/2024 Active 1 goal linked to scheduled/documen emelia intervention 1 goal intervention scheduled/document ed in this visit PT Cardiovascular Disease Disciplines: PT 04/22/2024 Active 1 goal linked to scheduled/documen emelia intervention 1 goal intervention scheduled/document ed in this visit PT Pulmonary Disease Disciplines: PT 04/22/2024 Active 1 goal linked to scheduled/documen emelia intervention 1 goal intervention scheduled/document ed in this visit Goals Goal Associated Problem Outcome Goal Met? Visit Notes Patient/caregiver will demonstrate ability to obtain, store, identify and administer ordered medications, keep accurate medication list in home, and adhere to medication schedule Description: Patient/caregiver will demonstrate ability to obtain, store, identify and administer ordered medications, keep accurate medication list in home, and adhere to medication schedule by 05/29/24 . Medication Education No Patient/caregiver will be able to identify and report symptoms of sepsis Description: Patient/caregiver will be able to identify signs/symptoms of sepsis infection and will verbalize actions to take if suspected by 06/12/24. Sepsis No Patient to maintain parameters within physician-specified ranges throughout certification period Physician Specific Parameters No Manage Risk for falls Description: Patient/caregiver will verbalize knowledge of individualized fall prevention strategies by 06/12/24. Risk for Falls No Manage Pain Description: Patient/caregiver will verbalize knowledge and understanding of appropriate techniques to control pain, including pain medication and non-pharmacological techniques. Patient will verbalize or demonstrate an acceptable level of pain as evidenced by a pain score of <5/10 and improvement in ability to perform activities of daily living to be achieved by 06/12/24. Pain No Manage oxygen Description: Patient/caregiver will use oxygen safely and effectively in home by verbalizing and demonstrating oxygen safety by 06/12/24. Oxygen No Manage discharge planning Description: Patient/caregiver will verbalize understanding of ongoing discharge plan provided related to disease management, arrangements for outpatient and/or community services, obtaining medications, supplies, and DME, as needed throughout certification period. Discharge No Improved Transfers Description: LTG: Patient will demonstrate safe transfers to/from bed, chair and toilet independently, to be achieved by 05/29/24 PT Impaired mobility No Improved Gait Description: LTG: Patient will demonstrate improved gait ability as evidenced by ambulation 200 feet with no device independently, to return to safe household ambulation, in order to reach car in the driveway, to be achieved by 05/29/24 PT Impaired gait No Demonstrate understanding of education Description: Patient and/or caregiver will understand educational instruction to be achieved by 05/29/24. PT Learning Assessment No Manage Cardiac Interventions Description: Improve patient and/or caregiver understanding of post surgical and/or non-surgical cardiac intervention management as evidenced by patient and/or caregiver able to verbalize, demonstrate, and teach back instruction, to be achieved by 05/29/24 PT Cardiovascular Disease No Manage Secondary Pulmonary Disease Description: Improve patient and/or caregiver understanding of secondary pulmonary disease management as evidenced by patient and/or caregiver able to verbalize, demonstrate, and teach back instruction, to be achieved by 05/29/24 PT Pulmonary Disease No Interventions Intervention Associated Problem/Goal Status Variance Visit Notes Medication Education Description: Evaluate/instruct patient/caregiver on obtaining, storing, identifying and administering ordered medications as well as keeping accurate medication list in the home and adhereing to medication schedule Problem:Medication Education Goal:Patient/caregiver will demonstrate ability to obtain, store, identify and administer ordered medications, keep accurate medication list in home, and adhere to medication schedule Completed Patient instructed on importance of keeping accurate medication list in home. Risk of Sepsis Description: Patient is at risk for sepsis. Monitor closely for s/s of sepsis. Problem:Sepsis Goal:Patient/caregiver will be able to identify and report symptoms of sepsis Completed SPO2 Description: Notify Dr. Fortune if pulse ox is <92% at rest. Problem:Physician Specific Parameters Goal:Patient to maintain parameters within physician-specified ranges throughout certification period Completed Instruct on individual fall risk factors and strategies to prevent falls and injuries caused by falls. Problem:Risk for Falls Goal:Manage Risk for falls Completed PT: Patient instructed on Managing Pain Instruct on pain and instruct on strategies to control pain Problem:Pain Goal:Manage Pain Completed patient instructed on techniques to control pain including Non-Pharmacological measures; rest and positioning/elevation . Implement strategies to improve compliance with oxygen safety Problem:Oxygen Goal:Manage oxygen Completed Instructed on oxygen safety and compliance strategies including: Education. Instruct on ongoing discharge plan Problem:Discharge Goal:Manage discharge planning Completed Ongoing Discharge plan: Discharge plan discussed with patient including frequency and duration for home PT and plan for transition to: caregiver assistance. Physical Therapy Transfer Training Problem:PT Impaired mobility Goal:Improved Transfers Completed Transfer training and instruction to patient on safe transfers to and from chair with supervision and verbal cues for sequence. Physical Therapy Gait Training Problem:PT Impaired gait Goal:Improved Gait Completed Gait training and instruction to patient on safe ambulation with front wheeled walker for 50 feet with supervision, with verbal cues for corrections of gait deviations including sequence. Instruct and educate on knowledge deficits Problem:PT Learning Assessment Goal:Demonstrate understanding of education Completed patient verbalize and/or demonstrate understanding of physical therapy education including fall prevention strategies, home safety, functional activity and home exercise program. Education methods include: verbal cues. Further education required to improve knowledge and compliance with fall prevention strategies, home safety, functional activity and home exercise program. Instruct on self-management of post surgical and/or non-surgical cardiac intervention Problem:PT Cardiovascular Disease Goal:Manage Cardiac Interventions Completed patient instructed on post-op management of use of RPE scale. Instruct on signs, symptoms, and management of secondary pulmonary disease Problem:PT Pulmonary Disease Goal:Manage Secondary Pulmonary Disease Completed patient instructed on definition of pulmonary disease and use of RPE scale. documented in this encounter [facility] home Plan of care note* Visit Details Visit Type -SN ROUTINE Discipline -Prison Problems Problem Description Start Date Status Goals Interve ntions Medication Education Disciplines: Skilled Services 04/14/2024 Active 1 goal linked to scheduled/docume nted intervention 1 goal intervention scheduled/documen emelia in this visit Mental Health Disciplines: Skilled Services 04/14/2024 Active 1 goal linked to scheduled/docume nted intervention 1 goal intervention scheduled/documen emelia in this visit Sepsis Disciplines: Skilled Services 04/14/2024 Active 1 goal linked to scheduled/docume nted intervention 1 goal intervention scheduled/documen emelia in this visit Physician Specific Parameters Disciplines: Skilled Services 04/14/2024 Active 1 goal linked to scheduled/docume nted intervention 1 goal intervention scheduled/documen emelia in this visit Risk for Falls Disciplines: Skilled Services 04/14/2024 Active 1 goal linked to scheduled/docume nted intervention 1 goal intervention scheduled/documen emelia in this visit Pain Disciplines: Skilled Services 04/14/2024 Active 1 goal linked to scheduled/docume nted intervention 1 goal intervention scheduled/documen emelia in this visit Nutrition/Hydration Disciplines: Skilled Services 04/14/2024 Active 1 goal linked to scheduled/docume nted intervention 1 goal intervention scheduled/documen emelia in this visit High Risk Medications Disciplines: Skilled Services 04/14/2024 Resolved on 05/12/2024 1 goal linked to scheduled/docume nted intervention SN Respiratory Disease Disciplines: SN 04/14/2024 Active 1 goal linked to scheduled/docume nted intervention 1 goal intervention scheduled/documen emelia in this visit SN Edema Disciplines: SN 04/14/2024 Resolved on 05/12/2024 1 goal linked to scheduled/docume nted intervention SN Cardiovascular Condition Disciplines: SN 04/14/2024 Active 1 goal linked to scheduled/docume nted intervention 1 goal intervention scheduled/documen emelia in this visit SN Learning Assessment Disciplines: SN 04/14/2024 Active 1 goal linked to scheduled/docume nted intervention 1 goal intervention scheduled/documen emelia in this visit SN COPD Disciplines: 04/14/2024 Active 1 goal linked to scheduled/docume nted intervention 2 goal interventions scheduled/documen emelia in this visit Goals Goal Associated Problem Outcome Goal Met? Visit Notes Patient/caregiver will demonstrate ability to obtain, store, identify and administer ordered medications, keep accurate medication list in home, and adhere to medication schedule Description: Patient/caregiver will demonstrate ability to obtain, store, identify and administer ordered medications, keep accurate medication list in home, and adhere to medication schedule by 05/29/24 . Medication Education No Improved management of mental health condition(s) Description: Patient/caregiver will teach back mental health symptom identification and management techniques by 06/12/24. Mental Health No Patient/caregiver will be able to identify and report symptoms of sepsis Description: Patient/caregiver will be able to identify signs/symptoms of sepsis infection and will verbalize actions to take if suspected by 06/12/24. Sepsis No Patient to maintain parameters within physician-specified ranges throughout certification period Physician Specific Parameters No Manage Risk for falls Description: Patient/caregiver will verbalize knowledge of individualized fall prevention strategies by 06/12/24. Risk for Falls No Manage Pain Description: Patient/caregiver will verbalize knowledge and understanding of appropriate techniques to control pain, including pain medication and non-pharmacological techniques. Patient will verbalize or demonstrate an acceptable level of pain as evidenced by a pain score of <5/10 and improvement in ability to perform activities of daily living to be achieved by 06/12/24. Pain No Manage Nutrition/Hydration Description: Patient/caregiver will verbalize/demonstrate knowledge of prescribed diet and/or healthy nutrition to be achieved by 06/12/24. Nutrition/Hydration No Patient/caregiver will teach back high risk medication side effect and precaution education Description: STG Patient/caregiver will verbalize understanding of high risk medication side effects and precautions to be achieved by 05/08/24. LTG Patient/caregiver will continue to verbalize understanding of high risk medication side effects and precautions throughout certification period. High Risk Medications Completed Yes Improved management of respiratory condition Description: Improve respiratory management as evidenced by patient/caregiver's ability to teach back strategies for improving respiratory status by 04/23/24. SN Respiratory Disease No Patient will have improved edema management Description: Patient/caregiver will demonstrate an understanding of edema management strategies as evidenced by resolution or stabilization of edema by 06/12/24. SN Edema Completed Yes Improved management of cardiovascular disease Description: Improve patient/caregiver management of cardiac disease as evidenced by patient/caregiver ability to teach back cardiac management strategies by 05/24/24. SN Cardiovascular Condition No Demonstrate understanding of education Description: Patient and/or caregiver will verbalize understanding of educational instruction provided throughout certification period. SN Learning Assessment No Improved management of COPD Description: Improve COPD management as evidenced by decreased reports of dyspnea, medication compliance, and patient able to teach back strategies to manage condition. Goal to be achieved by 06/12/24. SN COPD No Interventions Intervention Associated Problem/Goal Status Variance Visit Notes Medication Education Description: Evaluate/instruct patient/caregiver on obtaining, storing, identifying and administering ordered medications as well as keeping accurate medication list in the home and adhereing to medication schedule Problem:Medication Education Goal:Patient/caregive r will demonstrate ability to obtain, store, identify and administer ordered medications, keep accurate medication list in home, and adhere to medication schedule Completed Patient instructed on adhering to medication schedule and medication, route, dose, frequency, purpose, and side effects of colchicine medication. Instruct on depression symptoms and management Description: Pt did not score severe on screen but evidence of depression is present. Problem:Mental Health Goal:Improved management of mental health condition(s) Completed Patient instructed on the following: coping skills & techniques, the importance of activity, the benefits of adequate nutrition and hydration and seeking support from family/friends. Risk of Sepsis Description: Patient is at risk for sepsis. Monitor closely for s/s of sepsis. Problem:Sepsis Goal:Patient/caregive r will be able to identify and report symptoms of sepsis Completed SPO2 Description: Notify Dr. Fortune if pulse ox is <92% at rest. Problem:Physician Specific Parameters Goal:Patient to maintain parameters within physician-specified ranges throughout certification period Completed Instruct on individual fall risk factors and strategies to prevent falls and injuries caused by falls. Problem:Risk for Falls Goal:Manage Risk for falls Completed SN: Patient instructed on Eliminating Environmental Hazards: Keep pathways clear, Keep pets out of pathways and Keep rooms and walkways well lit Instruct on pain and instruct on strategies to control pain Problem:Pain Goal:Manage Pain Completed patient instructed on techniques to control pain including Non-Pharmacological measures; positioning/elevation and mobility/therapeutic exercise. Define patient s appetite/hydration status and implement strategies to improve compliance with prescribed diet and/or healthy nutrition. Problem:Nutrition/Hyd ration Goal:Manage Nutrition/Hydration Completed reinforced patient on implementing strategies to comply with healthy nutrition and adequate hydration Instruct on respiratory disease process and management of condition Description: Patient has following respiratory diagnosis(es): pneumonia Problem:SN Respiratory Disease Goal:Improved management of respiratory condition Completed patient assessed and reinforced on respiratory medication use inhalers. Instruct on cardiovascular disease process and management of condition Description: Patient has following cardiac diagnosis(es): new dx of SVT; instruct on s/sx exacerbation, when to seek 911, follow up with cardiology. Problem:SN Cardiovascular Condition Goal:Improved management of cardiovascular disease Completed patient instructed on self monitoring & symptom reporting. Instruct and educate on knowledge deficits Problem:SN Learning Assessment Goal:Demonstrate understanding of education Completed patient verbalize and/or demonstrate understanding of nursing education completed today. Education methods include: verbal cues and visual cues. Further education required to improve knowledge and compliance with cardiac disease management, depression/anxiety care management, fall prevention/home safety strategies, gastrointestinal care management, medication management, nutrition, pain management and pulmonary disease management. Maintenance COPD Description: Reinforce Acute and Sub-acute management education. Instruct on review zone sheet, nutrition in relation to COPD management, energy conservation, pacing activities, independence in ADLs vs what caregiver should be helping with, home exercise, additional COPD resources available like chronic care clinics as found in the COPD binder. Problem:SN COPD Goal:Improved management of COPD Completed Reinforced Acute and Sub-acute management education. patient reinforced on nutrition in relation to COPD management and energy conservation pacing activities and home exercise as found in the COPD binder. Sub-acute COPD Description: Reinforce Acute COPD management education. Instruct on zone sheet, methods to reduce infection risks, anxiety management including relaxation techniques, importance of sleep, stress reduction, and coping strategies for living with COPD as found in the COPD binder. Problem:SN COPD Goal:Improved management of COPD Completed Reinforced Acute COPD management education. patient reinforced on zone sheet and coping strategies for living with COPD as found in the COPD binder. [facility] Visit Details Visit Type -PT ROUTINE Discipline -Physical Therapy Problems Problem Description Start Date Status Goals Interve ntions Medication Education Disciplines: Skilled Services 04/14/2024 Active 1 goal linked to scheduled/documen emelia intervention 1 goal intervention scheduled/document ed in this visit Sepsis Disciplines: Skilled Services 04/14/2024 Active 1 goal linked to scheduled/documen emelia intervention 1 goal intervention scheduled/document ed in this visit Physician Specific Parameters Disciplines: Skilled Services 04/14/2024 Active 1 goal linked to scheduled/documen emelia intervention 1 goal intervention scheduled/document ed in this visit Risk for Falls Disciplines: Skilled Services 04/14/2024 Active 1 goal linked to scheduled/documen emelia intervention 1 goal intervention scheduled/document ed in this visit Pain Disciplines: Skilled Services 04/14/2024 Active 1 goal linked to scheduled/documen emelia intervention 1 goal intervention scheduled/document ed in this visit Oxygen Disciplines: Skilled Services 04/14/2024 Active 1 goal linked to scheduled/documen emelia intervention 1 goal intervention scheduled/document ed in this visit Discharge Disciplines: Skilled Services 04/14/2024 Active 1 goal linked to scheduled/documen emelia intervention 1 goal intervention scheduled/document ed in this visit PT Impaired muscle performance and/or ROM Disciplines: PT 04/22/2024 Active 1 goal linked to scheduled/documen emelia intervention 1 goal intervention scheduled/document ed in this visit PT Impaired mobility Disciplines: PT 04/22/2024 Active 1 goal linked to scheduled/documen emelia intervention 1 goal intervention scheduled/document ed in this visit PT Impaired gait Disciplines: PT 04/22/2024 Active 1 goal linked to scheduled/documen emelia intervention 1 goal intervention scheduled/document ed in this visit PT Learning Assessment Disciplines: PT 04/22/2024 Active 1 goal linked to scheduled/documen emelia intervention 1 goal intervention scheduled/document ed in this visit PT Cardiovascular Disease Disciplines: PT 04/22/2024 Active 1 goal linked to scheduled/documen emelia intervention 1 goal intervention scheduled/document ed in this visit PT Pulmonary Disease Disciplines: PT 04/22/2024 Active 1 goal linked to scheduled/documen emelia intervention 1 goal intervention scheduled/document ed in this visit Goals Goal Associated Problem Outcome Goal Met? Visit Notes Patient/caregiver will demonstrate ability to obtain, store, identify and administer ordered medications, keep accurate medication list in home, and adhere to medication schedule Description: Patient/caregiver will demonstrate ability to obtain, store, identify and administer ordered medications, keep accurate medication list in home, and adhere to medication schedule by 05/29/24 . Medication Education No Patient/caregiver will be able to identify and report symptoms of sepsis Description: Patient/caregiver will be able to identify signs/symptoms of sepsis infection and will verbalize actions to take if suspected by 06/12/24. Sepsis No Patient to maintain parameters within physician-specified ranges throughout certification period Physician Specific Parameters No Manage Risk for falls Description: Patient/caregiver will verbalize knowledge of individualized fall prevention strategies by 06/12/24. Risk for Falls No Manage Pain Description: Patient/caregiver will verbalize knowledge and understanding of appropriate techniques to control pain, including pain medication and non-pharmacological techniques. Patient will verbalize or demonstrate an acceptable level of pain as evidenced by a pain score of <5/10 and improvement in ability to perform activities of daily living to be achieved by 06/12/24. Pain No Manage oxygen Description: Patient/caregiver will use oxygen safely and effectively in home by verbalizing and demonstrating oxygen safety by 06/12/24. Oxygen No Manage discharge planning Description: Patient/caregiver will verbalize understanding of ongoing discharge plan provided related to disease management, arrangements for outpatient and/or community services, obtaining medications, supplies, and DME, as needed throughout certification period. Discharge No Improved Muscle Performance and/or ROM Description: LTG: Patient will demonstrate improved muscle performance to meet functional goals as evidenced by ability to tolerate 8 mins of standing activity, to be achieved by 05/29/24. LTG: Patient and/or caregiver will verbalize/demonstrate independence with home exercise program, to improve functional mobility, to be achieved by 05/29/24. PT Impaired muscle performance and/or ROM No Improved Transfers Description: LTG: Patient will demonstrate safe transfers to/from bed, chair and toilet independently, to be achieved by 05/29/24 PT Impaired mobility No Improved Gait Description: LTG: Patient will demonstrate improved gait ability as evidenced by ambulation 200 feet with no device independently, to return to safe household ambulation, in order to reach car in the driveway, to be achieved by 05/29/24 PT Impaired gait No Demonstrate understanding of education Description: Patient and/or caregiver will understand educational instruction to be achieved by 05/29/24. PT Learning Assessment No Manage Cardiac Interventions Description: Improve patient and/or caregiver understanding of post surgical and/or non-surgical cardiac intervention management as evidenced by patient and/or caregiver able to verbalize, demonstrate, and teach back instruction, to be achieved by 05/29/24 PT Cardiovascular Disease No Manage Secondary Pulmonary Disease Description: Improve patient and/or caregiver understanding of secondary pulmonary disease management as evidenced by patient and/or caregiver able to verbalize, demonstrate, and teach back instruction, to be achieved by 05/29/24 PT Pulmonary Disease No Interventions Intervention Associated Problem/Goal Status Variance Visit Notes Medication Education Description: Evaluate/instruct patient/caregiver on obtaining, storing, identifying and administering ordered medications as well as keeping accurate medication list in the home and adhereing to medication schedule Problem:Medication Education Goal:Patient/caregiver will demonstrate ability to obtain, store, identify and administer ordered medications, keep accurate medication list in home, and adhere to medication schedule Completed Patient instructed on importance of keeping accurate medication list in home. Risk of Sepsis Description: Patient is at risk for sepsis. Monitor closely for s/s of sepsis. Problem:Sepsis Goal:Patient/caregiver will be able to identify and report symptoms of sepsis Completed SPO2 Description: Notify Dr. Fortune if pulse ox is <92% at rest. Problem:Physician Specific Parameters Goal:Patient to maintain parameters within physician-specified ranges throughout certification period Completed Instruct on individual fall risk factors and strategies to prevent falls and injuries caused by falls. Problem:Risk for Falls Goal:Manage Risk for falls Completed PT: Patient instructed on Managing Impaired Functional Mobility: Use assistive device(s): front wheeled walker Managing Pain Instruct on pain and instruct on strategies to control pain Problem:Pain Goal:Manage Pain Completed patient instructed on techniques to control pain including Non-Pharmacological measures; rest, positioning/elevation and mobility/therapeutic exercise. Instruct on fire safety and safe and effective use of oxygen in the home Problem:Oxygen Goal:Manage oxygen Completed patient instructed on: precautions that can prevent fire-related injuries patient demonstrate compliance with safety recommendations. Instruct on ongoing discharge plan Problem:Discharge Goal:Manage discharge planning Completed Ongoing Discharge plan: Discharge plan discussed with patient including frequency and duration for home PT and plan for transition to: caregiver assistance. Physical Therapy Therapeutic Exercises Problem:PT Impaired muscle performance and/or ROM Goal:Improved Muscle Performance and/or ROM Completed patient instructed and orally reviewed on strengthening and range of motion exercises including seated HEP including marching knee extension toe raises, standing marching, hip abd 10 times each with verbal cues for sequence. patient instructed to perform home exercise program twice a day Physical Therapy Transfer Training Problem:PT Impaired mobility Goal:Improved Transfers Completed Transfer training and instruction to patient on safe transfers to and from bed, chair and toilet with supervision and verbal cues for sequence. Physical Therapy Gait Training Problem:PT Impaired gait Goal:Improved Gait Completed Gait training and instruction to patient on safe ambulation with front wheeled walker for 50 feet with supervision, with verbal cues for corrections of gait deviations including sequence. Instruct and educate on knowledge deficits Problem:PT Learning Assessment Goal:Demonstrate understanding of education Completed patient verbalize and/or demonstrate understanding of physical therapy education including fall prevention strategies, home safety, functional activity and home exercise program. Education methods include: verbal cues. Further education required to improve knowledge and compliance with fall prevention strategies, home safety, functional activity and home exercise program. Instruct on self-management of post surgical and/or non-surgical cardiac intervention Problem:PT Cardiovascular Disease Goal:Manage Cardiac Interventions Completed patient instructed on post-op management of energy conservation. Instruct on signs, symptoms, and management of secondary pulmonary disease Problem:PT Pulmonary Disease Goal:Manage Secondary Pulmonary Disease Completed patient instructed on use of RPE scale. documented in this encounter [facility] home Plan of care note* Visit Details Visit Type -SN ROUTINE Discipline -Prison Problems Problem Description Start Date Status Goals Interve ntions Medication Education Disciplines: Skilled Services 04/14/2024 Active 1 goal linked to scheduled/documen emelia intervention 1 goal intervention scheduled/document ed in this visit Mental Health Disciplines: Skilled Services 04/14/2024 Active 1 goal linked to scheduled/documen emelia intervention 1 goal intervention scheduled/document ed in this visit Sepsis Disciplines: Skilled Services 04/14/2024 Active 1 goal linked to scheduled/documen emelia intervention 1 goal intervention scheduled/document ed in this visit Physician Specific Parameters Disciplines: Skilled Services 04/14/2024 Active 1 goal linked to scheduled/documen emelia intervention 1 goal intervention scheduled/document ed in this visit Risk for Falls Disciplines: Skilled Services 04/14/2024 Active 1 goal linked to scheduled/documen emelia intervention 1 goal intervention scheduled/document ed in this visit Pain Disciplines: Skilled Services 04/14/2024 Active 1 goal linked to scheduled/documen emelia intervention 1 goal intervention scheduled/document ed in this visit Nutrition/Hydration Disciplines: Skilled Services 04/14/2024 Active 1 goal linked to scheduled/documen emelai intervention 1 goal intervention scheduled/document ed in this visit SN Respiratory Disease Disciplines: 04/14/2024 Active 1 goal linked to scheduled/documen emelia intervention 1 goal intervention scheduled/document ed in this visit SN Cardiovascular Condition Disciplines: 04/14/2024 Active 1 goal linked to scheduled/documen emelia intervention 1 goal intervention scheduled/document ed in this visit SN Learning Assessment Disciplines: 04/14/2024 Active 1 goal linked to scheduled/documen emelia intervention 1 goal intervention scheduled/document ed in this visit SN COPD Disciplines: 04/14/2024 Active 1 goal linked to scheduled/documen emelia intervention 1 goal intervention scheduled/document ed in this visit Goals Goal Associated Problem Outcome Goal Met? Visit Notes Patient/caregiver will demonstrate ability to obtain, store, identify and administer ordered medications, keep accurate medication list in home, and adhere to medication schedule Description: Patient/caregiver will demonstrate ability to obtain, store, identify and administer ordered medications, keep accurate medication list in home, and adhere to medication schedule by 05/29/24 . Medication Education No Improved management of mental health condition(s) Description: Patient/caregiver will teach back mental health symptom identification and management techniques by 06/12/24. Mental Health No Patient/caregiver will be able to identify and report symptoms of sepsis Description: Patient/caregiver will be able to identify signs/symptoms of sepsis infection and will verbalize actions to take if suspected by 06/12/24. Sepsis No Patient to maintain parameters within physician-specified ranges throughout certification period Physician Specific Parameters No Manage Risk for falls Description: Patient/caregiver will verbalize knowledge of individualized fall prevention strategies by 06/12/24. Risk for Falls No Manage Pain Description: Patient/caregiver will verbalize knowledge and understanding of appropriate techniques to control pain, including pain medication and non-pharmacological techniques. Patient will verbalize or demonstrate an acceptable level of pain as evidenced by a pain score of <5/10 and improvement in ability to perform activities of daily living to be achieved by 06/12/24. Pain No Manage Nutrition/Hydration Description: Patient/caregiver will verbalize/demonstrate knowledge of prescribed diet and/or healthy nutrition to be achieved by 06/12/24. Nutrition/Hydration No Improved management of respiratory condition Description: Improve respiratory management as evidenced by patient/caregiver's ability to teach back strategies for improving respiratory status by 04/23/24. SN Respiratory Disease No Improved management of cardiovascular disease Description: Improve patient/caregiver management of cardiac disease as evidenced by patient/caregiver ability to teach back cardiac management strategies by 05/24/24. SN Cardiovascular Condition No Demonstrate understanding of education Description: Patient and/or caregiver will verbalize understanding of educational instruction provided throughout certification period. SN Learning Assessment No Improved management of COPD Description: Improve COPD management as evidenced by decreased reports of dyspnea, medication compliance, and patient able to teach back strategies to manage condition. Goal to be achieved by 06/12/24. SN COPD No Interventions Intervention Associated Problem/Goal Status Variance Visit Notes Medication Education Description: Evaluate/instruct patient/caregiver on obtaining, storing, identifying and administering ordered medications as well as keeping accurate medication list in the home and adhereing to medication schedule Problem:Medication Education Goal:Patient/caregive r will demonstrate ability to obtain, store, identify and administer ordered medications, keep accurate medication list in home, and adhere to medication schedule Completed Patient instructed on adhering to medication schedule. Instruct on depression symptoms and management Description: Pt did not score severe on screen but evidence of depression is present. Problem:Mental Health Goal:Improved management of mental health condition(s) Completed Patient instructed on the following: coping skills & techniques. Risk of Sepsis Description: Patient is at risk for sepsis. Monitor closely for s/s of sepsis. Problem:Sepsis Goal:Patient/caregive r will be able to identify and report symptoms of sepsis Completed SPO2 Description: Notify Dr. Fortune if pulse ox is <92% at rest. Problem:Physician Specific Parameters Goal:Patient to maintain parameters within physician-specified ranges throughout certification period Completed Instruct on individual fall risk factors and strategies to prevent falls and injuries caused by falls. Problem:Risk for Falls Goal:Manage Risk for falls Completed SN: Patient instructed on Eliminating Environmental Hazards: Keep pathways clear and Keep rooms and walkways well lit Instruct on pain and instruct on strategies to control pain Problem:Pain Goal:Manage Pain Completed patient instructed on techniques to control pain including Non-Pharmacological measures; positioning/elevation and mobility/therapeutic exercise. Define patient s appetite/hydration status and implement strategies to improve compliance with prescribed diet and/or healthy nutrition. Problem:Nutrition/Hyd ration Goal:Manage Nutrition/Hydration Completed reinforced patient on implementing strategies to comply with healthy nutrition and adequate hydration Instruct on respiratory disease process and management of condition Description: Patient has following respiratory diagnosis(es): pneumonia Problem:SN Respiratory Disease Goal:Improved management of respiratory condition Completed patient assessed and reinforced on respiratory disease process, self monitoring & symptom reporting, s/s of respiratory infection and breathing management techniques: pursed lip breathing. Instruct on cardiovascular disease process and management of condition Description: Patient has following cardiac diagnosis(es): new dx of SVT; instruct on s/sx exacerbation, when to seek 911, follow up with cardiology. Problem:SN Cardiovascular Condition Goal:Improved management of cardiovascular disease Completed patient instructed on self monitoring & symptom reporting. Instruct and educate on knowledge deficits Problem:SN Learning Assessment Goal:Demonstrate understanding of education Completed patient verbalize and/or demonstrate understanding of nursing education completed today. Education methods include: verbal cues. Further education required to improve knowledge and compliance with cardiac disease management, fall prevention/home safety strategies, gastrointestinal care management, medication management, nutrition and pain management. Maintenance COPD Description: Reinforce Acute and Sub-acute management education. Instruct on review zone sheet, nutrition in relation to COPD management, energy conservation, pacing activities, independence in ADLs vs what caregiver should be helping with, home exercise, additional COPD resources available like chronic care clinics as found in the COPD binder. Problem:SN COPD Goal:Improved management of COPD Completed Reinforced Acute and Sub-acute management education. patient reinforced on zone sheet, nutrition in relation to COPD management and energy conservation pacing activities as found in the COPD binder. [facility] Visit Details Visit Type -PT ROUTINE Discipline -Physical Therapy Problems Problem Description Start Date Status Goals Interve ntions Medication Education Disciplines: Skilled Services 04/14/2024 Active 1 goal linked to scheduled/documen emelia intervention 1 goal intervention scheduled/document ed in this visit Sepsis Disciplines: Skilled Services 04/14/2024 Active 1 goal linked to scheduled/documen emelia intervention 1 goal intervention scheduled/document ed in this visit Physician Specific Parameters Disciplines: Skilled Services 04/14/2024 Active 1 goal linked to scheduled/documen emelia intervention 1 goal intervention scheduled/document ed in this visit Risk for Falls Disciplines: Skilled Services 04/14/2024 Active 1 goal linked to scheduled/documen emelia intervention 1 goal intervention scheduled/document ed in this visit Pain Disciplines: Skilled Services 04/14/2024 Active 1 goal linked to scheduled/documen emelia intervention 1 goal intervention scheduled/document ed in this visit Oxygen Disciplines: Skilled Services 04/14/2024 Active 1 goal linked to scheduled/documen emelia intervention 1 goal intervention scheduled/document ed in this visit Discharge Disciplines: Skilled Services 04/14/2024 Active 1 goal linked to scheduled/documen emelia intervention 1 goal intervention scheduled/document ed in this visit PT Impaired muscle performance and/or ROM Disciplines: PT 04/22/2024 Active 1 goal linked to scheduled/documen emelia intervention 1 goal intervention scheduled/document ed in this visit PT Impaired mobility Disciplines: PT 04/22/2024 Active 1 goal linked to scheduled/documen emelia intervention 1 goal intervention scheduled/document ed in this visit PT Impaired gait Disciplines: PT 04/22/2024 Active 1 goal linked to scheduled/documen emelia intervention 1 goal intervention scheduled/document ed in this visit PT Learning Assessment Disciplines: PT 04/22/2024 Active 1 goal linked to scheduled/documen emelia intervention 1 goal intervention scheduled/document ed in this visit PT Cardiovascular Disease Disciplines: PT 04/22/2024 Active 1 goal linked to scheduled/documen emelia intervention 1 goal intervention scheduled/document ed in this visit PT Pulmonary Disease Disciplines: PT 04/22/2024 Active 1 goal linked to scheduled/documen emelia intervention 1 goal intervention scheduled/document ed in this visit Goals Goal Associated Problem Outcome Goal Met? Visit Notes Patient/caregiver will demonstrate ability to obtain, store, identify and administer ordered medications, keep accurate medication list in home, and adhere to medication schedule Description: Patient/caregiver will demonstrate ability to obtain, store, identify and administer ordered medications, keep accurate medication list in home, and adhere to medication schedule by 05/29/24 . Medication Education No Patient/caregiver will be able to identify and report symptoms of sepsis Description: Patient/caregiver will be able to identify signs/symptoms of sepsis infection and will verbalize actions to take if suspected by 06/12/24. Sepsis No Patient to maintain parameters within physician-specified ranges throughout certification period Physician Specific Parameters No Manage Risk for falls Description: Patient/caregiver will verbalize knowledge of individualized fall prevention strategies by 06/12/24. Risk for Falls No Manage Pain Description: Patient/caregiver will verbalize knowledge and understanding of appropriate techniques to control pain, including pain medication and non-pharmacological techniques. Patient will verbalize or demonstrate an acceptable level of pain as evidenced by a pain score of <5/10 and improvement in ability to perform activities of daily living to be achieved by 06/12/24. Pain No Manage oxygen Description: Patient/caregiver will use oxygen safely and effectively in home by verbalizing and demonstrating oxygen safety by 06/12/24. Oxygen No Manage discharge planning Description: Patient/caregiver will verbalize understanding of ongoing discharge plan provided related to disease management, arrangements for outpatient and/or community services, obtaining medications, supplies, and DME, as needed throughout certification period. Discharge No Improved Muscle Performance and/or ROM Description: LTG: Patient will demonstrate improved muscle performance to meet functional goals as evidenced by ability to tolerate 8 mins of standing activity, to be achieved by 05/29/24. LTG: Patient and/or caregiver will verbalize/demonstrate independence with home exercise program, to improve functional mobility, to be achieved by 05/29/24. PT Impaired muscle performance and/or ROM No Improved Transfers Description: LTG: Patient will demonstrate safe transfers to/from bed, chair and toilet independently, to be achieved by 05/29/24 PT Impaired mobility No Improved Gait Description: LTG: Patient will demonstrate improved gait ability as evidenced by ambulation 200 feet with no device independently, to return to safe household ambulation, in order to reach car in the driveway, to be achieved by 05/29/24 PT Impaired gait No Demonstrate understanding of education Description: Patient and/or caregiver will understand educational instruction to be achieved by 05/29/24. PT Learning Assessment No Manage Cardiac Interventions Description: Improve patient and/or caregiver understanding of post surgical and/or non-surgical cardiac intervention management as evidenced by patient and/or caregiver able to verbalize, demonstrate, and teach back instruction, to be achieved by 05/29/24 PT Cardiovascular Disease No Manage Secondary Pulmonary Disease Description: Improve patient and/or caregiver understanding of secondary pulmonary disease management as evidenced by patient and/or caregiver able to verbalize, demonstrate, and teach back instruction, to be achieved by 05/29/24 PT Pulmonary Disease No Interventions Intervention Associated Problem/Goal Status Variance Visit Notes Medication Education Description: Evaluate/instruct patient/caregiver on obtaining, storing, identifying and administering ordered medications as well as keeping accurate medication list in the home and adhereing to medication schedule Problem:Medication Education Goal:Patient/caregiver will demonstrate ability to obtain, store, identify and administer ordered medications, keep accurate medication list in home, and adhere to medication schedule Completed Patient instructed on importance of keeping accurate medication list in home. Risk of Sepsis Description: Patient is at risk for sepsis. Monitor closely for s/s of sepsis. Problem:Sepsis Goal:Patient/caregiver will be able to identify and report symptoms of sepsis Completed SPO2 Description: Notify Dr. Fortune if pulse ox is <92% at rest. Problem:Physician Specific Parameters Goal:Patient to maintain parameters within physician-specified ranges throughout certification period Completed Instruct on individual fall risk factors and strategies to prevent falls and injuries caused by falls. Problem:Risk for Falls Goal:Manage Risk for falls Completed PT: Patient instructed on Managing Impaired Functional Mobility: Use assistive device(s): front wheeled walker Instruct on pain and instruct on strategies to control pain Problem:Pain Goal:Manage Pain Completed patient instructed on techniques to control pain including Non-Pharmacological measures; rest, positioning/elevation and mobility/therapeutic exercise. Instruct on fire safety and safe and effective use of oxygen in the home Problem:Oxygen Goal:Manage oxygen Completed patient instructed. patient demonstrate compliance with safety recommendations. Instruct on ongoing discharge plan Problem:Discharge Goal:Manage discharge planning Completed Ongoing Discharge plan: Discharge plan discussed with patient including frequency and duration for home PT and plan for transition to: caregiver assistance. Physical Therapy Therapeutic Exercises Problem:PT Impaired muscle performance and/or ROM Goal:Improved Muscle Performance and/or ROM Completed patient instructed on strengthening and range of motion exercises including ambulation for 100 feet, seated marching, knee extension toe raises 10 times each, education on standing HEP including marching, hip abd, hip ext, knee flexion however not performed this date duet to pain and elevated HR. Patient encouraged to keep hr below 100 bpm and complete standing HEP. Patient indicates he is able to check his HR and monitor. Physical Therapy Transfer Training Problem:PT Impaired mobility Goal:Improved Transfers Completed Transfer training and instruction to patient on safe transfers to and from bed, chair and toilet with supervision and verbal cues for sequence. Physical Therapy Gait Training Problem:PT Impaired gait Goal:Improved Gait Completed Gait training and instruction to patient on safe ambulation with no device for 100 feet with supervision, with verbal cues for corrections of gait deviations including sequence. Instruct and educate on knowledge deficits Problem:PT Learning Assessment Goal:Demonstrate understanding of education Completed patient verbalize and/or demonstrate understanding of physical therapy education including fall prevention strategies, home safety, functional activity and home exercise program. Education methods include: verbal cues. Further education required to improve knowledge and compliance with fall prevention strategies, home safety, functional activity and home exercise program. Instruct on self-management of post surgical and/or non-surgical cardiac intervention Problem:PT Cardiovascular Disease Goal:Manage Cardiac Interventions Completed patient instructed on post-op management of use of RPE scale. Instruct on signs, symptoms, and management of secondary pulmonary disease Problem:PT Pulmonary Disease Goal:Manage Secondary Pulmonary Disease Completed patient instructed on definition of pulmonary disease. [facility] Visit Details Visit Type -SN ROUTINE Discipline -Prison Problems Problem Description Start Date Status Goals Interve ntions Medication Education Disciplines: Skilled Services 04/14/2024 Active 1 goal linked to scheduled/docume nted intervention 1 goal intervention scheduled/documen emelia in this visit Mental Health Disciplines: Skilled Services 04/14/2024 Active 1 goal linked to scheduled/docume nted intervention 1 goal intervention scheduled/documen emelia in this visit Sepsis Disciplines: Skilled Services 04/14/2024 Active 1 goal linked to scheduled/docume nted intervention 1 goal intervention scheduled/documen emelia in this visit Physician Specific Parameters Disciplines: Skilled Services 04/14/2024 Active 1 goal linked to scheduled/docume nted intervention 1 goal intervention scheduled/documen emelia in this visit Risk for Falls Disciplines: Skilled Services 04/14/2024 Active 1 goal linked to scheduled/docume nted intervention 1 goal intervention scheduled/documen emelia in this visit Pain Disciplines: Skilled Services 04/14/2024 Active 1 goal linked to scheduled/docume nted intervention 1 goal intervention scheduled/documen emelia in this visit Nutrition/Hydration Disciplines: Skilled Services 04/14/2024 Active 1 goal linked to scheduled/docume nted intervention 1 goal intervention scheduled/documen emelia in this visit Discharge Disciplines: Skilled Services 04/14/2024 Active 1 goal linked to scheduled/docume nted intervention 1 goal intervention scheduled/documen emelia in this visit SN Cardiovascular Condition Disciplines: SN 04/14/2024 Active 1 goal linked to scheduled/docume nted intervention 1 goal intervention scheduled/documen emelia in this visit SN Learning Assessment Disciplines: SN 04/14/2024 Active 1 goal linked to scheduled/docume nted intervention 1 goal intervention scheduled/documen emelia in this visit SN COPD Disciplines: SN 04/14/2024 Active 1 goal linked to scheduled/docume nted intervention 1 goal intervention scheduled/documen emelia in this visit SN Gastrointestinal Disciplines: SN 04/14/2024 Resolved on 05/27/2024 1 goal linked to scheduled/docume nted intervention Goals Goal Associated Problem Outcome Goal Met? Visit Notes Patient/caregiver will demonstrate ability to obtain, store, identify and administer ordered medications, keep accurate medication list in home, and adhere to medication schedule Description: Patient/caregiver will demonstrate ability to obtain, store, identify and administer ordered medications, keep accurate medication list in home, and adhere to medication schedule by 05/29/24 . Medication Education No Improved management of mental health condition(s) Description: Patient/caregiver will teach back mental health symptom identification and management techniques by 06/12/24. Mental Health No Patient/caregiver will be able to identify and report symptoms of sepsis Description: Patient/caregiver will be able to identify signs/symptoms of sepsis infection and will verbalize actions to take if suspected by 06/12/24. Sepsis No Patient to maintain parameters within physician-specified ranges throughout certification period Physician Specific Parameters No Manage Risk for falls Description: Patient/caregiver will verbalize knowledge of individualized fall prevention strategies by 06/12/24. Risk for Falls No Manage Pain Description: Patient/caregiver will verbalize knowledge and understanding of appropriate techniques to control pain, including pain medication and non-pharmacological techniques. Patient will verbalize or demonstrate an acceptable level of pain as evidenced by a pain score of <5/10 and improvement in ability to perform activities of daily living to be achieved by 06/12/24. Pain No Manage Nutrition/Hydration Description: Patient/caregiver will verbalize/demonstrate knowledge of prescribed diet and/or healthy nutrition to be achieved by 06/12/24. Nutrition/Hydration No Manage discharge planning Description: Patient/caregiver will verbalize understanding of ongoing discharge plan provided related to disease management, arrangements for outpatient and/or community services, obtaining medications, supplies, and DME, as needed throughout certification period. Discharge No Improved management of cardiovascular disease Description: Improve patient/caregiver management of cardiac disease as evidenced by patient/caregiver ability to teach back cardiac management strategies by 05/24/24. SN Cardiovascular Condition No Demonstrate understanding of education Description: Patient and/or caregiver will verbalize understanding of educational instruction provided throughout certification period. SN Learning Assessment No Improved management of COPD Description: Improve COPD management as evidenced by decreased reports of dyspnea, medication compliance, and patient able to teach back strategies to manage condition. Goal to be achieved by 06/12/24. SN COPD No Improved management of GI disease/condition Description: Patient/Caregiver will demonstrate understanding of GI education as evidenced by improved management of gastrointestinal disease/condition by 04/23/24. SN Gastrointestinal Completed Yes Interventions Intervention Associated Problem/Goal Status Variance Visit Notes Medication Education Description: Evaluate/instruct patient/caregiver on obtaining, storing, identifying and administering ordered medications as well as keeping accurate medication list in the home and adhereing to medication schedule Problem:Medication Education Goal:Patient/caregiver will demonstrate ability to obtain, store, identify and administer ordered medications, keep accurate medication list in home, and adhere to medication schedule Completed Patient instructed on adhering to medication schedule. Instruct on depression symptoms and management Description: Pt did not score severe on screen but evidence of depression is present. Problem:Mental Health Goal:Improved management of mental health condition(s) Completed Patient instructed on the following: coping skills & techniques, the importance of activity, goal planning and schedules , the benefits of adequate nutrition and hydration and seeking support from family/friends. Risk of Sepsis Description: Patient is at risk for sepsis. Monitor closely for s/s of sepsis. Problem:Sepsis Goal:Patient/caregiver will be able to identify and report symptoms of sepsis Completed SPO2 Description: Notify Dr. Fortune if pulse ox is <92% at rest. Problem:Physician Specific Parameters Goal:Patient to maintain parameters within physician-specified ranges throughout certification period Completed Instruct on individual fall risk factors and strategies to prevent falls and injuries caused by falls. Problem:Risk for Falls Goal:Manage Risk for falls Completed SN: Patient instructed on Eliminating Environmental Hazards: Keep pathways clear and Keep rooms and walkways well lit Instruct on pain and instruct on strategies to control pain Problem:Pain Goal:Manage Pain Completed patient instructed on techniques to control pain including Non-Pharmacological measures; positioning/elevatio n and mobility/therapeutic exercise. Define patient s appetite/hydration status and implement strategies to improve compliance with prescribed diet and/or healthy nutrition. Problem:Nutrition/Hydr ation Goal:Manage Nutrition/Hydration Completed reinforced patient on implementing strategies to comply with healthy nutrition and adequate hydration Instruct on ongoing discharge plan Problem:Discharge Goal:Manage discharge planning Completed Ongoing Discharge plan: Discharge plan discussed with patient including frequency and duration for home SN and plan for transition to: live independently at home without ongoing services. Instruct on cardiovascular disease process and management of condition Description: Patient has following cardiac diagnosis(es): new dx of SVT; instruct on s/sx exacerbation, when to seek 911, follow up with cardiology. Problem:SN Cardiovascular Condition Goal:Improved management of cardiovascular disease Completed patient instructed on self monitoring & symptom reporting. Instruct and educate on knowledge deficits Problem:SN Learning Assessment Goal:Demonstrate understanding of education Completed patient verbalize and/or demonstrate understanding of nursing education completed today. Education methods include: verbal cues and written instructions. Further education required to improve knowledge and compliance with cardiac disease management, fall prevention/home safety strategies, medication management, nutrition, pain management and pulmonary disease management. Sub-acute COPD Description: Reinforce Acute COPD management education. Instruct on zone sheet, methods to reduce infection risks, anxiety management including relaxation techniques, importance of sleep, stress reduction, and coping strategies for living with COPD as found in the COPD binder. Problem:SN COPD Goal:Improved management of COPD Completed Reinforced Acute COPD management education. patient reinforced on zone sheet and coping strategies for living with COPD as found in the COPD binder. documented in this encounter [facility] Plan of care note* Visit Details Visit Type -PT DISC DC W VIS IT Discipline -Physical Therapy Problems Problem Description Start Date Status Goals Interve ntions Medication Education Disciplines: Skilled Services 04/14/2024 Active 1 goal linked to scheduled/documen emelia intervention 1 goal intervention scheduled/documen emelia in this visit Sepsis Disciplines: Skilled Services 04/14/2024 Active 1 goal linked to scheduled/documen emelia intervention 1 goal intervention scheduled/documen emelia in this visit Physician Specific Parameters Disciplines: Skilled Services 04/14/2024 Active 1 goal linked to scheduled/documen emelia intervention 1 goal intervention scheduled/documen emelia in this visit Risk for Falls Disciplines: Skilled Services 04/14/2024 Active 1 goal linked to scheduled/documen emelia intervention 1 goal intervention scheduled/documen emelia in this visit Pain Disciplines: Skilled Services 04/14/2024 Active 1 goal linked to scheduled/documen emelia intervention 1 goal intervention scheduled/documen emelia in this visit Oxygen Disciplines: Skilled Services 04/14/2024 Active 1 goal linked to scheduled/documen emelia intervention 2 goal interventions scheduled/documen emelia in this visit Discharge Disciplines: Skilled Services 04/14/2024 Active 1 goal linked to scheduled/documen emelia intervention 1 goal intervention scheduled/documen emelia in this visit PT Impaired Aerobic Capacity Disciplines: PT 04/22/2024 Resolved on 05/28/2024 1 goal linked to scheduled/documen emelia intervention 1 goal intervention scheduled/documen emelia in this visit PT Impaired muscle performance and/or ROM Disciplines: PT 04/22/2024 Resolved on 05/28/2024 1 goal linked to scheduled/documen emelia intervention 1 goal intervention scheduled/documen emelia in this visit PT Impaired mobility Disciplines: PT 04/22/2024 Resolved on 05/28/2024 1 goal linked to scheduled/documen emelia intervention 1 goal intervention scheduled/documen emelia in this visit PT Impaired gait Disciplines: PT 04/22/2024 Resolved on 05/28/2024 2 goals linked to scheduled/documen emelia interventions 1 goal intervention scheduled/documen emelia in this visit PT Learning Assessment Disciplines: PT 04/22/2024 Resolved on 05/28/2024 1 goal linked to scheduled/documen emelia intervention 1 goal intervention scheduled/documen emelia in this visit PT Cardiovascular Disease Disciplines: PT 04/22/2024 Resolved on 05/28/2024 1 goal linked to scheduled/documen emelia intervention 1 goal intervention scheduled/documen emelia in this visit PT Pulmonary Disease Disciplines: PT 04/22/2024 Resolved on 05/28/2024 1 goal linked to scheduled/documen emelia intervention 1 goal intervention scheduled/documen emelia in this visit Goals Goal Associated Problem Outcome Goal Met? Visit Notes Patient/caregiver will demonstrate ability to obtain, store, identify and administer ordered medications, keep accurate medication list in home, and adhere to medication schedule Description: Patient/caregiver will demonstrate ability to obtain, store, identify and administer ordered medications, keep accurate medication list in home, and adhere to medication schedule by 05/29/24 . Medication Education No Patient/caregiver will be able to identify and report symptoms of sepsis Description: Patient/caregiver will be able to identify signs/symptoms of sepsis infection and will verbalize actions to take if suspected by 06/12/24. Sepsis No Patient to maintain parameters within physician-specified ranges throughout certification period Physician Specific Parameters No Manage Risk for falls Description: Patient/caregiver will verbalize knowledge of individualized fall prevention strategies by 06/12/24. Risk for Falls No Manage Pain Description: Patient/caregiver will verbalize knowledge and understanding of appropriate techniques to control pain, including pain medication and non-pharmacological techniques. Patient will verbalize or demonstrate an acceptable level of pain as evidenced by a pain score of <5/10 and improvement in ability to perform activities of daily living to be achieved by 06/12/24. Pain No Manage oxygen Description: Patient/caregiver will use oxygen safely and effectively in home by verbalizing and demonstrating oxygen safety by 06/12/24. Oxygen No Manage discharge planning Description: Patient/caregiver will verbalize understanding of ongoing discharge plan provided related to disease management, arrangements for outpatient and/or community services, obtaining medications, supplies, and DME, as needed throughout certification period. Discharge No Improved Aerobic Capacity Description: LTG: Patient will demonstrate improved aerobic capacity to meet functional goals as evidenced by Rate of Percieved Exertion (RPE) of 0-2/10 during standing activity, to be achieved by 05/29/24 PT Impaired Aerobic Capacity Completed Yes Goal Met Improved Muscle Performance and/or ROM Description: LTG: Patient will demonstrate improved muscle performance to meet functional goals as evidenced by ability to tolerate 8 mins of standing activity, to be achieved by 05/29/24. LTG: Patient and/or caregiver will verbalize/demonstrate independence with home exercise program, to improve functional mobility, to be achieved by 05/29/24. PT Impaired muscle performance and/or ROM Completed Yes Goal Met Improved Transfers Description: LTG: Patient will demonstrate safe transfers to/from bed, chair and toilet independently, to be achieved by 05/29/24 PT Impaired mobility Completed Yes Goal Met Improved Stair Climbing Description: LTG: Patient will demonstrate improved stair negotiation as evidenced by ascend/descend 3 steps without railing independently, to safely exit home, to be achieved by 05/29/24. PT Impaired gait Completed Yes Goal Met Improved Gait Description: LTG: Patient will demonstrate improved gait ability as evidenced by ambulation 200 feet with no device independently, to return to safe household ambulation, in order to reach car in the driveway, to be achieved by 05/29/24 PT Impaired gait Completed Yes Goal Met Demonstrate understanding of education Description: Patient and/or caregiver will understand educational instruction to be achieved by 05/29/24. PT Learning Assessment Completed Yes Goal Met Manage Cardiac Interventions Description: Improve patient and/or caregiver understanding of post surgical and/or non-surgical cardiac intervention management as evidenced by patient and/or caregiver able to verbalize, demonstrate, and teach back instruction, to be achieved by 05/29/24 PT Cardiovascular Disease Completed Yes Goal Met Manage Secondary Pulmonary Disease Description: Improve patient and/or caregiver understanding of secondary pulmonary disease management as evidenced by patient and/or caregiver able to verbalize, demonstrate, and teach back instruction, to be achieved by 05/29/24 PT Pulmonary Disease Completed Yes Goal Met Interventions Intervention Associated Problem/Goal Status Variance Visit Notes Medication Education Description: Evaluate/instruct patient/caregiver on obtaining, storing, identifying and administering ordered medications as well as keeping accurate medication list in the home and adhereing to medication schedule Problem:Medication Education Goal:Patient/caregiver will demonstrate ability to obtain, store, identify and administer ordered medications, keep accurate medication list in home, and adhere to medication schedule Completed Patient instructed on importance of keeping accurate medication list in home. Risk of Sepsis Description: Patient is at risk for sepsis. Monitor closely for s/s of sepsis. Problem:Sepsis Goal:Patient/caregiver will be able to identify and report symptoms of sepsis Completed SPO2 Description: Notify Dr. Fortune if pulse ox is <92% at rest. Problem:Physician Specific Parameters Goal:Patient to maintain parameters within physician-specified ranges throughout certification period Completed Instruct on individual fall risk factors and strategies to prevent falls and injuries caused by falls. Problem:Risk for Falls Goal:Manage Risk for falls Completed PT: Patient instructed on Managing Impaired Functional Mobility: Caregiver to provide assist with: ADL/IADLs Managing Pain Instruct on pain and instruct on strategies to control pain Problem:Pain Goal:Manage Pain Completed patient instructed on techniques to control pain including Non-Pharmacological measures; rest, positioning/elevation and mobility/therapeutic exercise. Instruct on fire safety and safe and effective use of oxygen in the home Problem:Oxygen Goal:Manage oxygen Completed patient instructed. patient demonstrate compliance with safety recommendations. Implement strategies to improve compliance with oxygen safety Problem:Oxygen Goal:Manage oxygen Completed Instructed on oxygen safety and compliance strategies including: Education. Instruct on final discharge plan and deliver discharge instructions Problem:Discharge Goal:Manage discharge planning Completed Delivered Discharge plan: Discharge plan discussed with patient for plan for transition to: caregiver assistance Physical Therapy Aerobic Capacity Training Problem:PT Impaired Aerobic Capacity Goal:Improved Aerobic Capacity Completed patient instructed on utilization of the Rate of Percieved Exertion (RPE) scale, to not exceed 3-6/10 indicating moderate to heavy intensity of activity. Developed, implemented, and instructed patient on physical therapy interventions completing 10 minutes of paced activity. Physical Therapy Therapeutic Exercises Problem:PT Impaired muscle performance and/or ROM Goal:Improved Muscle Performance and/or ROM Completed patient orally instructed on strengthening and range of motion exercises including standing marching, hip abd, hip ext, knee flexion, toe raises 10 times each with verbal cues for sequence. patient instructed to perform home exercise program twice a day Physical Therapy Transfer Training Problem:PT Impaired mobility Goal:Improved Transfers Completed Transfer training and instruction to patient on safe transfers to and from bed, chair and toilet with independent Physical Therapy Gait Training Problem:PT Impaired gait Goal:Improved Gait Completed Gait training and instruction to patient on safe ambulation with no device for 200 feet with independent Instruct and educate on knowledge deficits Problem:PT Learning Assessment Goal:Demonstrate understanding of education Completed patient verbalize and/or demonstrate understanding of physical therapy education including fall prevention strategies, home safety, functional activity and home exercise program. Education methods include: verbal cues. Instruct on self-management of post surgical and/or non-surgical cardiac intervention Problem:PT Cardiovascular Disease Goal:Manage Cardiac Interventions Completed patient instructed on post-op management of use of RPE scale. Instruct on signs, symptoms, and management of secondary pulmonary disease Problem:PT Pulmonary Disease Goal:Manage Secondary Pulmonary Disease Completed patient instructed on use of RPE scale. [facility] Visit Details Visit Type -SN ROUTINE Discipline -Prison Problems Problem Description Start Date Status Goals Interve ntions Medication Education Disciplines: Skilled Services 04/14/2024 Active 1 goal linked to scheduled/documen emelia intervention 1 goal intervention scheduled/document ed in this visit Mental Health Disciplines: Skilled Services 04/14/2024 Active 1 goal linked to scheduled/documen emelia intervention 1 goal intervention scheduled/document ed in this visit Sepsis Disciplines: Skilled Services 04/14/2024 Active 1 goal linked to scheduled/documen emelia intervention 1 goal intervention scheduled/document ed in this visit Risk for Falls Disciplines: Skilled Services 04/14/2024 Active 1 goal linked to scheduled/documen emelia intervention 1 goal intervention scheduled/document ed in this visit Pain Disciplines: Skilled Services 04/14/2024 Active 1 goal linked to scheduled/documen emelia intervention 1 goal intervention scheduled/document ed in this visit Nutrition/Hydration Disciplines: Skilled Services 04/14/2024 Active 1 goal linked to scheduled/documen emelia intervention 1 goal intervention scheduled/document ed in this visit SN Respiratory Disease Disciplines: 04/14/2024 Active 1 goal linked to scheduled/documen emelia intervention 1 goal intervention scheduled/document ed in this visit SN Cardiovascular Condition Disciplines: 04/14/2024 Active 1 goal linked to scheduled/documen emelia intervention 1 goal intervention scheduled/document ed in this visit SN Learning Assessment Disciplines: 04/14/2024 Active 1 goal linked to scheduled/documen emelia intervention 1 goal intervention scheduled/document ed in this visit SN COPD Disciplines: SN 04/14/2024 Active 1 goal linked to scheduled/documen emelia intervention 1 goal intervention scheduled/document ed in this visit Goals Goal Associated Problem Outcome Goal Met? Visit Notes Patient/caregiver will demonstrate ability to obtain, store, identify and administer ordered medications, keep accurate medication list in home, and adhere to medication schedule Description: Patient/caregiver will demonstrate ability to obtain, store, identify and administer ordered medications, keep accurate medication list in home, and adhere to medication schedule by 05/29/24 . Medication Education No Improved management of mental health condition(s) Description: Patient/caregiver will teach back mental health symptom identification and management techniques by 06/12/24. Mental Health No Patient/caregiver will be able to identify and report symptoms of sepsis Description: Patient/caregiver will be able to identify signs/symptoms of sepsis infection and will verbalize actions to take if suspected by 06/12/24. Sepsis No Manage Risk for falls Description: Patient/caregiver will verbalize knowledge of individualized fall prevention strategies by 06/12/24. Risk for Falls No Manage Pain Description: Patient/caregiver will verbalize knowledge and understanding of appropriate techniques to control pain, including pain medication and non-pharmacological techniques. Patient will verbalize or demonstrate an acceptable level of pain as evidenced by a pain score of <5/10 and improvement in ability to perform activities of daily living to be achieved by 06/12/24. Pain No Manage Nutrition/Hydration Description: Patient/caregiver will verbalize/demonstrate knowledge of prescribed diet and/or healthy nutrition to be achieved by 06/12/24. Nutrition/Hydration No Improved management of respiratory condition Description: Improve respiratory management as evidenced by patient/caregiver's ability to teach back strategies for improving respiratory status by 04/23/24. SN Respiratory Disease No Improved management of cardiovascular disease Description: Improve patient/caregiver management of cardiac disease as evidenced by patient/caregiver ability to teach back cardiac management strategies by 05/24/24. SN Cardiovascular Condition No Demonstrate understanding of education Description: Patient and/or caregiver will verbalize understanding of educational instruction provided throughout certification period. SN Learning Assessment No Improved management of COPD Description: Improve COPD management as evidenced by decreased reports of dyspnea, medication compliance, and patient able to teach back strategies to manage condition. Goal to be achieved by 06/12/24. SN COPD No Interventions Intervention Associated Problem/Goal Status Variance Visit Notes Medication Education Description: Evaluate/instruct patient/caregiver on obtaining, storing, identifying and administering ordered medications as well as keeping accurate medication list in the home and adhereing to medication schedule Problem:Medication Education Goal:Patient/caregiver will demonstrate ability to obtain, store, identify and administer ordered medications, keep accurate medication list in home, and adhere to medication schedule Completed Patient instructed on adhering to medication schedule. Instruct on depression symptoms and management Description: Pt did not score severe on screen but evidence of depression is present. Problem:Mental Health Goal:Improved management of mental health condition(s) Completed Patient instructed on the following: coping skills & techniques, the importance of activity, goal planning and schedules , the benefits of adequate nutrition and hydration and seeking support from family/friends. Risk of Sepsis Description: Patient is at risk for sepsis. Monitor closely for s/s of sepsis. Problem:Sepsis Goal:Patient/caregiver will be able to identify and report symptoms of sepsis Completed Instruct on individual fall risk factors and strategies to prevent falls and injuries caused by falls. Problem:Risk for Falls Goal:Manage Risk for falls Completed SN: Patient instructed on Eliminating Environmental Hazards: Keep pathways clear and Keep rooms and walkways well lit Instruct on pain and instruct on strategies to control pain Problem:Pain Goal:Manage Pain Completed patient instructed on techniques to control pain including Non-Pharmacological measures; positioning/elevatio n and mobility/therapeutic exercise. Define patient s appetite/hydration status and implement strategies to improve compliance with prescribed diet and/or healthy nutrition. Problem:Nutrition/Hydr ation Goal:Manage Nutrition/Hydration Completed reinforced patient on implementing strategies to comply with healthy nutrition and adequate hydration Instruct on respiratory disease process and management of condition Description: Patient has following respiratory diagnosis(es): pneumonia Problem:SN Respiratory Disease Goal:Improved management of respiratory condition Completed patient assessed and reinforced on self monitoring & symptom reporting and s/s of respiratory infection. Instruct on cardiovascular disease process and management of condition Description: Patient has following cardiac diagnosis(es): new dx of SVT; instruct on s/sx exacerbation, when to seek 911, follow up with cardiology. Problem:SN Cardiovascular Condition Goal:Improved management of cardiovascular disease Completed patient instructed on self monitoring & symptom reporting. Instruct and educate on knowledge deficits Problem:SN Learning Assessment Goal:Demonstrate understanding of education Completed patient verbalize and/or demonstrate understanding of nursing education completed today. Education methods include: verbal cues. Further education required to improve knowledge and compliance with fall prevention/home safety strategies, medication management, nutrition, pain management and pulmonary disease management. Maintenance COPD Description: Reinforce Acute and Sub-acute management education. Instruct on review zone sheet, nutrition in relation to COPD management, energy conservation, pacing activities, independence in ADLs vs what caregiver should be helping with, home exercise, additional COPD resources available like chronic care clinics as found in the COPD binder. Problem:SN COPD Goal:Improved management of COPD Completed Reinforced Acute and Sub-acute management education. patient reinforced on nutrition in relation to COPD management and energy conservation pacing activities as found in the COPD binder. documented in this encounter [facility] home Plan of care note* Visit Details Visit Type -SN AGENCY DC W V ISIT Discipline -Prison Problems Problem Description Start Date Status Goals Interve ntions Medication Education Disciplines: Skilled Services 04/14/2024 Resolved on 06/09/2024 1 goal linked to scheduled/docume nted intervention 1 goal intervention scheduled/documen emelia in this visit Mental Health Disciplines: Skilled Services 04/14/2024 Resolved on 06/09/2024 1 goal linked to scheduled/docume nted intervention 1 goal intervention scheduled/documen emelia in this visit Sepsis Disciplines: Skilled Services 04/14/2024 Resolved on 06/09/2024 1 goal linked to scheduled/docume nted intervention 1 goal intervention scheduled/documen emelia in this visit Physician Specific Parameters Disciplines: Skilled Services 04/14/2024 Resolved on 06/09/2024 1 goal linked to scheduled/docume nted intervention 1 goal intervention scheduled/documen emelia in this visit Risk for Falls Disciplines: Skilled Services 04/14/2024 Resolved on 06/09/2024 1 goal linked to scheduled/docume nted intervention 1 goal intervention scheduled/documen emelia in this visit Pain Disciplines: Skilled Services 04/14/2024 Resolved on 06/09/2024 1 goal linked to scheduled/docume nted intervention 1 goal intervention scheduled/documen emelia in this visit Oxygen Disciplines: Skilled Services 04/14/2024 Resolved on 06/09/2024 1 goal linked to scheduled/docume nted intervention Nutrition/Hydration Disciplines: Skilled Services 04/14/2024 Resolved on 06/09/2024 1 goal linked to scheduled/docume nted intervention 1 goal intervention scheduled/documen emelia in this visit Discharge Disciplines: Skilled Services 04/14/2024 Resolved on 06/09/2024 1 goal linked to scheduled/docume nted intervention 1 goal intervention scheduled/documen emelia in this visit SN Respiratory Disease Disciplines: SN 04/14/2024 Resolved on 06/09/2024 1 goal linked to scheduled/docume nted intervention 1 goal intervention scheduled/documen emelia in this visit SN Cardiovascular Condition Disciplines: SN 04/14/2024 Resolved on 06/09/2024 1 goal linked to scheduled/docume nted intervention 1 goal intervention scheduled/documen emelia in this visit SN Learning Assessment Disciplines: SN 04/14/2024 Resolved on 06/09/2024 1 goal linked to scheduled/docume nted intervention 1 goal intervention scheduled/documen emelia in this visit SN COPD Disciplines: SN 04/14/2024 Resolved on 06/09/2024 1 goal linked to scheduled/docume nted intervention 1 goal intervention scheduled/documen emelia in this visit Goals Goal Associated Problem Outcome Goal Met? Visit Notes Patient/caregiver will demonstrate ability to obtain, store, identify and administer ordered medications, keep accurate medication list in home, and adhere to medication schedule Description: Patient/caregiver will demonstrate ability to obtain, store, identify and administer ordered medications, keep accurate medication list in home, and adhere to medication schedule by 05/29/24 . Medication Education Completed Yes Improved management of mental health condition(s) Description: Patient/caregiver will teach back mental health symptom identification and management techniques by 06/12/24. Mental Health Completed Yes Patient/caregiver will be able to identify and report symptoms of sepsis Description: Patient/caregiver will be able to identify signs/symptoms of sepsis infection and will verbalize actions to take if suspected by 06/12/24. Sepsis Completed Yes Patient to maintain parameters within physician-specified ranges throughout certification period Physician Specific Parameters Completed Yes Manage Risk for falls Description: Patient/caregiver will verbalize knowledge of individualized fall prevention strategies by 06/12/24. Risk for Falls Completed Yes Manage Pain Description: Patient/caregiver will verbalize knowledge and understanding of appropriate techniques to control pain, including pain medication and non-pharmacological techniques. Patient will verbalize or demonstrate an acceptable level of pain as evidenced by a pain score of <5/10 and improvement in ability to perform activities of daily living to be achieved by 06/12/24. Pain Completed Yes Manage oxygen Description: Patient/caregiver will use oxygen safely and effectively in home by verbalizing and demonstrating oxygen safety by 06/12/24. Oxygen Completed Yes Manage Nutrition/Hydration Description: Patient/caregiver will verbalize/demonstrate knowledge of prescribed diet and/or healthy nutrition to be achieved by 06/12/24. Nutrition/Hydration Appropriate For Discharge Yes Manage discharge planning Description: Patient/caregiver will verbalize understanding of ongoing discharge plan provided related to disease management, arrangements for outpatient and/or community services, obtaining medications, supplies, and DME, as needed throughout certification period. Discharge Completed Yes Improved management of respiratory condition Description: Improve respiratory management as evidenced by patient/caregiver's ability to teach back strategies for improving respiratory status by 04/23/24. SN Respiratory Disease Completed Yes Improved management of cardiovascular disease Description: Improve patient/caregiver management of cardiac disease as evidenced by patient/caregiver ability to teach back cardiac management strategies by 05/24/24. SN Cardiovascular Condition Completed Yes Demonstrate understanding of education Description: Patient and/or caregiver will verbalize understanding of educational instruction provided throughout certification period. SN Learning Assessment Completed Yes Improved management of COPD Description: Improve COPD management as evidenced by decreased reports of dyspnea, medication compliance, and patient able to teach back strategies to manage condition. Goal to be achieved by 06/12/24. SN COPD Appropriate For Discharge Yes Interventions Intervention Associated Problem/Goal Status Variance Visit Notes Medication Education Description: Evaluate/instruct patient/caregiver on obtaining, storing, identifying and administering ordered medications as well as keeping accurate medication list in the home and adhereing to medication schedule Problem:Medication Education Goal:Patient/caregive r will demonstrate ability to obtain, store, identify and administer ordered medications, keep accurate medication list in home, and adhere to medication schedule Completed Patient instructed on adhering to medication schedule. Instruct on depression symptoms and management Description: Pt did not score severe on screen but evidence of depression is present. Problem:Mental Health Goal:Improved management of mental health condition(s) Completed Patient instructed on the following: coping skills & techniques, the importance of activity, goal planning and schedules , the benefits of adequate nutrition and hydration and seeking support from family/friends. Risk of Sepsis Description: Patient is at risk for sepsis. Monitor closely for s/s of sepsis. Problem:Sepsis Goal:Patient/caregive r will be able to identify and report symptoms of sepsis Completed SPO2 Description: Notify Dr. Fortune if pulse ox is <92% at rest. Problem:Physician Specific Parameters Goal:Patient to maintain parameters within physician-specified ranges throughout certification period Completed Instruct on individual fall risk factors and strategies to prevent falls and injuries caused by falls. Problem:Risk for Falls Goal:Manage Risk for falls Completed SN: Patient instructed on Eliminating Environmental Hazards: Keep pathways clear, Keep pets out of pathways and Keep rooms and walkways well lit Instruct on pain and instruct on strategies to control pain Problem:Pain Goal:Manage Pain Completed patient instructed on techniques to control pain including Pharmacological measures and Non-Pharmacological measures; positioning/elevation, mobility/therapeutic exercise and use of DME/assistive devices. Define patient s appetite/hydration status and implement strategies to improve compliance with prescribed diet and/or healthy nutrition. Problem:Nutrition/Hyd ration Goal:Manage Nutrition/Hydration Completed reinforced patient on implementing strategies to comply with healthy nutrition and adequate hydration Instruct on final discharge plan and deliver discharge instructions Problem:Discharge Goal:Manage discharge planning Completed Delivered Discharge plan: Discharge plan discussed with patient for plan for transition to: live independently at home without ongoing services Instruct on respiratory disease process and management of condition Description: Patient has following respiratory diagnosis(es): pneumonia Problem:SN Respiratory Disease Goal:Improved management of respiratory condition Completed patient assessed and reinforced on self monitoring & symptom reporting. Instruct on cardiovascular disease process and management of condition Description: Patient has following cardiac diagnosis(es): new dx of SVT; instruct on s/sx exacerbation, when to seek 911, follow up with cardiology. Problem:SN Cardiovascular Condition Goal:Improved management of cardiovascular disease Completed patient instructed on self monitoring & symptom reporting. Instruct and educate on knowledge deficits Problem:SN Learning Assessment Goal:Demonstrate understanding of education Completed patient verbalize and/or demonstrate understanding of nursing education completed today. Education methods include: verbal cues. Further education required to improve knowledge and compliance with cardiac disease management, depression/anxiety care management, fall prevention/home safety strategies, medication management, nutrition, oxygen safety, pain management and pulmonary disease management. Maintenance COPD Description: Reinforce Acute and Sub-acute management education. Instruct on review zone sheet, nutrition in relation to COPD management, energy conservation, pacing activities, independence in ADLs vs what caregiver should be helping with, home exercise, additional COPD resources available like chronic care clinics as found in the COPD binder. Problem:SN COPD Goal:Improved management of COPD Completed Reinforced Acute and Sub-acute management education. patient reinforced on zone sheet, nutrition in relation to COPD management, energy conservation pacing activities and home exercise and additional COPD resources available referral to Chronic Care Clinic as found in the COPD binder. [facility] Mikayla Vent[facility] Note Date/Time December 06, 2024 1 :40pm [facility] [address] [place] [address] OFFICE VISIT Date of Service: 12/06/24 MR#: [id number] Acct: [id number] Name: AIDEN ORTIZ Rep #: [id number] : 1960 Provider: ANGELA Ventura Age/Sex: 64/M [place] [facility] [place] [place] Status: Signed Assessment and Plan Assessment and Plan (1) COPD (chronic obstructive pulmonary disease): Status: Chronic Qualifiers: COPD type: chronic bronchitis Chronic bronchitis type: mixed simple andmucopurulent Qualified Code(s): J41.8 - Mixed simple and mucopurulent chronic bronchitis Comment: FEV1 25% Plan: Very severe COPD complicated by high eosinophil count. Continue triple therapy with Advair and Spiriva. I suggested that he consider Daliresp, he declined stating that most medications do not work well with me. He also reports that he does not like the way he feels on prednisone, it makes it so I cannot sleep. No additional testing at this time. Follow-up in the office in 6 months. Contact the office with any new or worsening symptoms in the meantime. (2) Smoking greater than 40 pack years: Status: Chronic Comment: Repeat LDCT ordered for May 2025 Plan: Encourage complete smoking cessation. Return to the office in 6 months. LDCT ordered for May 2025. Discuss test results when available. Plan Details Additional Comments: This note was generated with [employer] software. It may contain incorrectwords, spelling, and punctuation that were not noted in checking the note beforesigning. Portions of this documentation have been copied and pasted from previous office visit notes to provide a cohesive continuity of the history. The note has been reviewed, edited, and updated, as necessary. Follow Up: 6 Months HPI 3 month follow up Chief Complaint: Routine follow-up HPI Comments Details: This patient presents to the office today for follow-up on his COPD with chronichypoxic respiratory failure. He is ambulatory. He has not recently been seen in the ED or urgent care for any respiratory illness. He has not required any antibiotics or prednisone for any breathing problems. He is currently using Advair twice daily. He does report rinsing his mouth out after each use. He denies any medication side effects such as sore throat or thrush. Currently utilizing albuterol nebulized 3-4 times daily. He is also compliant with Spiriva daily. He is not currently on Mucinex. Tried on Dupixent, had severe muscle and joint pains. He is compliant with supplemental oxygen, utilizing 2 L/min with sleep. He continues to smoke 1/2 pack/day. He reports shortness of breath that is worse with exertion. He has a daily coughthat is sometimes productive of brown to yellow-colored sputum. He denies any hemoptysis. He has wheezing. He does not have any chest tightness, chest congestion, chest pain or palpitations. He denies any fever, chills or body aches. Intake Vital Signs 08/31/24 09:37 12/06/24 08:06 Height 5 ft 7 in 5 ft 7 in Weight: 134 lb BMI 20.9 BP 129/80 H Blood Pressure Location Lt brachial Position Sitting Respiration 18 Pulse 83 Pulse Source Monitor Temp 97.4 F L Temperature Source Temporal Artery Pulse Oximetry (%) 95 Oxygen Delivery Method room air Intake Visit Reasons: 3 month follow up Chief Complaint: Routine FU Property Master Required: No DME Vendor: Cal Accompanied by: Self Allergies amlodipine (From Norvasc) Allergy (Verified 12/06/24 13:16) Swelling lisinopril Allergy (Verified 12/06/24 13:16) Pain in joints tamsulosin Allergy (Verified 12/06/24 13:16) Other tolterodine (From Detrol) Allergy (Verified 12/06/24 13:16) Other dupilumab (From DupixSkyfire Labs Pen) Adverse Reaction (Mild, Verified 12/06/24 13:16) Pain in joints Medications ?Medication ?Instructions ?Recorded ?Confirmed ?Type epinephrine 0.3 mg/0.3 mL 0.3 mg IM ONCE PRN anaphylax is 07/07/23 12/06/24 History injection, auto-injector (EpiPen 2-Jesse) Disability Placard #1 ea 01/30/24 12/06/24 Rx fluticasone 500 mcg-salmeterol 50 1 inh inhalation BID respiratory 02/16/24 12/06/24 Rx mcg/dose blistr powdr for #3 ea inhalation (Advair Diskus) albuterol sulfate 90 mcg/actuation 2 puff inhalation Q 4H PRN SOB 05/14/24 12/06/24 History aerosol inhaler melatonin 3 mg tablet 3 mg PO HS PRN sleep 5 12/06/24 History tiotropium bromide 2.5 2 inh inhalation DAILY copd #3 ea 07/13/24 12/06/24 Rx mcg/actuation mist for inhalation (Spiriva Respimat) tramadol 50 mg tablet 50 mg PO QDAY PRN pain 08/3112/06/24 History metoprolol tartrate 25 mg tablet 25 mg PO QDAY 5 12/06/24 History PFSH Medical History Acute exacerbation of chronic obstructive pulmonary disease COPD (chronic obstructive pulmonary disease) (~06/07/24) SVT (supraventricular tachycardia) Chronic hyponatremia Colonic mass Tobacco dependence Stercoral colitis Smoking greater than 40 pack years Smoker On home oxygen therapy IBS (irritable bowel syndrome) Hx of colonic polyp Alcohol abuse Hemorrhoids COPD (chronic obstructive pulmonary disease) Hypertension Arthritis Surgical History (Reviewed 12/06/24 @ 13:34 by Mikayla Ventura LIQUOR DEPARTMENT MANAGER, LIQUOR DEPARTMENT MANAGER-C) Hx of vasectomy Hx of colonoscopy Hx of appendectomy Family History Mother Arthritis Father Diabetes Heart disease Hypertension Social History (Reviewed 12/06/24 @ 13:34 by Mikayla Ventura LIQUOR DEPARTMENT MANAGER, LIQUOR DEPARTMENT MANAGER-C) household members: spouse and children housing: house current occupational status: employed Smoking Status: Light Smoker (<10/day) second hand exposure: Yes alcohol intake: current alcohol intake frequency: 3 or more drinks per day Alcohol type: beer substance use type: does not use caffeine: Yes what type of physical activity do you participate in: none frequency: does not exercise Review of Systems Resp Respiratory: Yes as per HPI Exam Const Constitutional: Positive conversant, cooperative, in no acute respiratory distress, well developed, well nourished, good hygiene, frail appearing and appears older than stated age Head Head: Yes normocephalic, Yes atraumatic and No cyanosis of lips/distal nose Eyes Eye: Positive clear conjunctiva; Negative nystagmus Ears Ear: Positive hearing normal and external ears normal Nose Nose: Yes external nose normal Mouth Mouth: Positive oral mucosae normal and poor dentition Neck Neck: Positive normal visual inspection, full ROM and trachea midline Chest Wall Chest: Positive symmetric chest movement and increased A/P diameter Resp lung sounds: Positive diminished lung sounds, wheezes wheezing: Positive global,prolonged expiratory time and normal chronic state of increased work of breathing; Negative rhonchi, rales or use of accessory muscles Cardio Cardiac: Positive regular rate, regular rhythm, S1 normal and S2 normal; Negative murmur, rub or gallop GI GI: Positive normal to inspection Musc Musculoskeletal: Positive steady gait; Negative kyphosis or scoliosis Skin Pulmonary Skin Exam: Positive intact; Negative lesion, rash, ulcers or erythema Pulses Pulse: Yes radial pulses present Extremities Extremities: Yes capillary refill normal, Yes clubbing, No cyanosis and No edema Neuro Neurologic: Yes no focal neuro deficits, Yes conversant, Yes cooperative, Yes normal cognition, Yes normal coordination, Yes normal concentration and Yes understands questions Psych Appearance: Positive grossly normal Mental Status: Positive mental status grossly normal Mood: Positive congruent mood Affect: Positive normal affect Coding Level of Care Code Off vis,est,level 3 Diagnoses Mixed simple and mucopurulent chronic bronchitis J41.8 COPD type: chronic bronchitis Chronic bronchitis type: mixed simple and mucopurulent Smoking greater than 40 pack years F17.210 12/06/24 1347 <Electronically signed by Mikayla figueroa NP LIQUOR DEPARTMENT MANAGER-C> Date _ Mikayla Ventura NP LIQUOR DEPARTMENT MANAGER-C Cosigner Signature: Date (if applicable) CC: Dr. Xavi Fortune MD ~ [facility] Work Phone: Reason for referral (narrative)No reason for referral information availableWy[facility] Work Phone: Reason for visit Narrative* Auth/Cert (Routine) Specialty Diagnoses / Procedures Referred By Cristine stacy Referred To Contact HOME CARE SERVICES [facility] [address] [place] [phone] Phone: tel: Referral ID Status Reason Start Date Expiration Date Visits Re quested Visits Authorized [id number] 1 1 [facility] Chief Complaint and Reason for Visit Chief Complaint COMPRESSION FX EORDER Chief Complaint COMPRESSION FX EORDER back pain Chief Complaint COMPRESSION FX EORDER back pain COPD EXACERBATION Chief Complaint COMPRESSION FX EORDER back pain COPD EXACERBATION COPD EXACERBATION COPD EXACERBATION Reason for Visit Hyponatremia Hypoxia COPD exacerbation Chief Complaint back pain COPD EXACERBATION COPD EXACERBATION COPD EXACERBATION COPD EXACERBATION HOSP F/U COPD Reason for Visit COPD exacerbation Hypoxia Smoking greater than 40 pack years COPD (chronic obstructive pulmonary disease) Chief Complaint HOSP F/U COPD CONGESTED/DIFFICULTY BREATHING COPD COPD Chronic obstructive pulmonary disease, unspecified Chronic obstructive pulmonary disease, unspecified Reason for Visit Smoking greater than 40 pack years COPD (chronic obstructive pulmonary disease) COPD (chronic obstructive pulmonary disease) Chief Complaint CONGESTED/DIFFICULTY BREATHING COPD COPD Chronic obstructive pulmonary disease, unspecified Chronic obstructive pulmonary disease, unspecified 3 M FU COPD; CRF3/7/E - NB Reason for Visit COPD (chronic obstru ctive pulmonary disease) Smoking greater than 40 pack years COPD (chronic obstructive pulmonary disease) Chief Complaint 3 M FU EORDER- CERV. SPINE Reason for Visit Nocturnal hypoxia COPD (chronic obstructive pulmonary disease) Chief Complaint 3 M FU BACK PAIN Reason for Visit Oral thrush COPD (chronic obstructive pulmonary disease) Smoking greater than 40 pack years Chief Complaint BACK PAIN NICOTINE DEPENDENCE 4 M FU Reason for Visit Nocturnal hypoxia COPD (chronic obstructive pulmonary disease) Smoking greater than 40 pack years Chief Complaint BACK PAIN NICOTINE DEPENDENCE 4 M FU GENERAL ILLNESS Reason for Visit Nocturnal hypoxia COPD (chronic obstructive pulmonary disease) Smoking greater than 40 pack years Chief Complaint 3 M FU BACK PAIN NICOTINE DEPENDENCE Reason for Visit Oral thrush COPD (chronic obstructive pulmonary disease) Smoking greater than 40 pack years Chief Complaint Admit Date J41.8 - Mixed simple and mucopurulent ch ronic bron February 23, 2024 12:10pm SYNCOPAL EPISODE February 28, 2024 3: 00pm SYNCOPAL EPISODE February 28, 2024 3: 08pm SYNCOPAL EPISODE February 29, 2024 1: 55am SYNCOPAL EPISODE March 01, 2024 8: 13am SYNCOPAL EPISODE March 02, 2024 11 :19am J41.8 - Mixed simple and mucopurulent ch ronic bron March 02, 2024 1:30pm PNA AND AECOPD March 15, 2024 7 :04pm COPD EXACERBATION, PNEUMONIA, TACHYCARDI A March 15, 2024 7:05pm PNA AND AECOPD March 16, 2024 7 :52am PNA AND AECOPD March 17, 2024 8 :45am PNA AND AECOPD March 18, 2024 8 :53am PNA AND AECOPD March 19, 2024 7 :28am PNA AND AECOPD March 20, 2024 9 :26am CAVITARY PNEUMONIA; SUSPICIOUS FOR TB Fe bruary 2024 3:59am CAVITARY PNEUMONIA; SUSPICIOUS FOR TB Fe bruary 2024 9:47am CAVITARY PNEUMONIA; SUSPICIOUS FOR TB Fe bruary 2024 7:37am CAVITARY PNEUMONIA; SUSPICIOUS FOR TB Fe bruary 2024 2:55pm CAVITARY PNEUMONIA; SUSPICIOUS FOR TB Fe bruary 2024 5:17pm CAVITARY PNEUMONIA; SUSPICIOUS FOR TB Fe bruary 2024 3:32am CAVITARY PNEUMONIA; SUSPICIOUS FOR TB Fe bruary 2024 8:02am CAVITARY PNEUMONIA; SUSPICIOUS FOR TB Fe bruary 2024 2:25pm CAVITARY PNEUMONIA; SUSPICIOUS FOR TB Fe bruary 2024 2:04am CAVITARY PNEUMONIA; SUSPICIOUS FOR TB Fe bruary 2024 7:33am CAVITARY PNEUMONIA; SUSPICIOUS FOR TB Fe bruary 2024 8:43am CAVITARY PNEUMONIA; SUSPICIOUS FOR TB Fe bruary 2024 1:25pm CAVITARY PNEUMONIA; SUSPICIOUS FOR TB Fe bruary 2024 6:40am CAVITARY PNEUMONIA; SUSPICIOUS FOR TB Fe bruary 2024 12:16pm CAVITARY PNEUMONIA; SUSPICIOUS FOR TB Fe bruary 2024 10:51am CAVITARY PNEUMONIA; SUSPICIOUS FOR TB Fe bruary 2024 12:16pm CAVITARY PNEUMONIA; SUSPICIOUS FOR TB Fe bruary 2024 12:07pm CAVITARY PNEUMONIA; SUSPICIOUS FOR TB Fe bruary 2024 12:32pm CAVITARY PNEUMONIA; SUSPICIOUS FOR TB Fe bruary 2024 8:35am CAVITARY PNEUMONIA; SUSPICIOUS FOR TB Fe bruary 2024 9:50am CAVITARY PNEUMONIA; SUSPICIOUS FOR TB Fe bruary 2024 8:24am CAVITARY PNEUMONIA; SUSPICIOUS FOR TB Fe bruary 2024 9:59am CAVITARY PNEUMONIA; SUSPICIOUS FOR TB Fe bruary 2024 7:45am CAVITARY PNEUMONIA; SUSPICIOUS FOR TB Fe bruary 2024 8:11am CAVITARY PNEUMONIA; SUSPICIOUS FOR TB Fe bruary 2024 8:29am CAVITARY PNEUMONIA; SUSPICIOUS FOR TB Fe bruary 2024 10:31am SVT WITH CHEST PAIN April 09, 2024 2:11am SVT WITH CHEST PAIN April 09, 2024 2:02pm SVT WITH CHEST PAIN April 10, 2024 7:27am HOSPITAL FU May 03, 2024 2:3 9pm lung abscess May 03, 2024 3:2 3pm R KNEE PAIN May 05, 2024 7:2 9pm Hospital FU May 24, 2024 3:0 1pm [facility] 2/14 SVTS May 26, 2024 1:20 pm LUNG ABSCESS May 27, 2024 6:33 pm 3 wk fu May 31, 2024 8:30 am fu compression fractures June 01, 2024 12:33pm Reason for Visit Admit Date Chin laceration February 28, 2024 3: 00pm Contusion of face February 28, 2024 3: 00pm Fracture of jaw February 28, 2024 3: 00pm History of ETOH abuse February 28, 2024 3:00pm Tongue laceration February 28, 2024 3: 00pm Chronic hyponatremia February 28, 2024 3 :00pm COPD with acute exacerbation February 3:00pm Fall February 28, 2024 3: 00pm Syncope February 28, 2024 3: 00pm COPD exacerbation March 15, 2024 7 :04pm Lightheadedness March 15, 2024 7 :04pm Pneumonia March 15, 2024 7 :04pm Ambulatory dysfunction March 28 3:59am Cavitary lesion of lung March 28 3:59am Generalized weakness March 28, 2024 3:59am Hypoalbuminemia March 28, 2024 3 :59am Lung mass March 28, 2024 3 :59am Pneumonia March 28, 2024 3 :59am COPD (chronic obstructive pulmonary dise ase) March 28, 2024 3:59am Abdominal pain March 28, 2024 3 :59am Acute cystitis March 28, 2024 3 :59am Constipation March 28, 2024 3 :59am Ileus March 28, 2024 3 :59am Ileus due to infection March 28 3:59am Leukocytosis March 28, 2024 3 :59am On home oxygen therapy March 28 3:59am Chronic hyponatremia March 28, 2024 3:59am Colonic mass March 28, 2024 3 :59am Smoking greater than 40 pack years 2024 3:59am Stercoral colitis March 28, 2024 3 :59am Tobacco dependence March 28, 2024 3 :59am Cavitary lesion of lung April 09 2:11am Leg edema April 09, 2024 2:11am COPD (chronic obstructive pulmonary dise ase) April 09, 2024 2:11am SVT (supraventricular tachycardia) 2024 2:11am Acute hypotension April 09, 2024 2:11am Adverse drug reaction April 09 2:11am Elevated troponin April 09, 2024 2:11am Lung abscess May 03, 2024 2:3 9pm COPD (chronic obstructive pulmonary dise ase) May 03, 2024 2:39pm Nicotine abuse May 03, 2024 2:3 9pm Dysgeusia May 24, 2024 3:0 1pm Weight loss May 24, 2024 3:0 1pm Anemia May 26, 2024 1:20 pm Lung abscess May 26, 2024 1:20 pm Hypertension May 26, 2024 1:20 pm SVT (supraventricular tachycardia) May 26, 2024 1:20pm Lung abscess May 31, 2024 8:30 am COPD (chronic obstructive pulmonary dise ase) May 31, 2024 8:30am Nicotine abuse May 31, 2024 8:30 am Chief Complaint Admit Date PNA AND AECOPD March 15, 2024 7 :04pm COPD EXACERBATION, PNEUMONIA, TACHYCARDI A March 15, 2024 7:05pm PNA AND AECOPD March 16, 2024 7 :52am PNA AND AECOPD March 17, 2024 8 :45am PNA AND AECOPD March 18, 2024 8 :53am PNA AND AECOPD March 19, 2024 7 :28am PNA AND AECOPD March 20, 2024 9 :26am CAVITARY PNEUMONIA; SUSPICIOUS FOR TB Fe bruary 2024 3:59am CAVITARY PNEUMONIA; SUSPICIOUS FOR TB Fe bruary 2024 9:47am CAVITARY PNEUMONIA; SUSPICIOUS FOR TB Fe bruary 2024 7:37am CAVITARY PNEUMONIA; SUSPICIOUS FOR TB Fe bruary 2024 2:55pm CAVITARY PNEUMONIA; SUSPICIOUS FOR TB Fe bruary 2024 5:17pm CAVITARY PNEUMONIA; SUSPICIOUS FOR TB Fe bruary 2024 3:32am CAVITARY PNEUMONIA; SUSPICIOUS FOR TB Fe bruary 2024 8:02am CAVITARY PNEUMONIA; SUSPICIOUS FOR TB Fe bruary 2024 2:25pm CAVITARY PNEUMONIA; SUSPICIOUS FOR TB Fe bruary 2024 2:04am CAVITARY PNEUMONIA; SUSPICIOUS FOR TB Fe bruary 2024 7:33am CAVITARY PNEUMONIA; SUSPICIOUS FOR TB Fe bruary 2024 8:43am CAVITARY PNEUMONIA; SUSPICIOUS FOR TB Fe bruary 2024 1:25pm CAVITARY PNEUMONIA; SUSPICIOUS FOR TB Fe bruary 2024 6:40am CAVITARY PNEUMONIA; SUSPICIOUS FOR TB Fe bruary 2024 12:16pm CAVITARY PNEUMONIA; SUSPICIOUS FOR TB Fe bruary 2024 10:51am CAVITARY PNEUMONIA; SUSPICIOUS FOR TB Fe bruary 2024 12:16pm CAVITARY PNEUMONIA; SUSPICIOUS FOR TB Fe bruary 2024 12:07pm CAVITARY PNEUMONIA; SUSPICIOUS FOR TB Fe bruary 2024 12:32pm CAVITARY PNEUMONIA; SUSPICIOUS FOR TB Fe bruary 2024 8:35am CAVITARY PNEUMONIA; SUSPICIOUS FOR TB Fe bruary 2024 9:50am CAVITARY PNEUMONIA; SUSPICIOUS FOR TB Fe bruary 2024 8:24am CAVITARY PNEUMONIA; SUSPICIOUS FOR TB Fe bruary 2024 9:59am CAVITARY PNEUMONIA; SUSPICIOUS FOR TB Fe bruary 2024 7:45am CAVITARY PNEUMONIA; SUSPICIOUS FOR TB Fe bruary 2024 8:11am CAVITARY PNEUMONIA; SUSPICIOUS FOR TB Fe bruary 2024 8:29am CAVITARY PNEUMONIA; SUSPICIOUS FOR TB Fe bruary 2024 10:31am SVT WITH CHEST PAIN April 09, 2024 2:11am SVT WITH CHEST PAIN April 09, 2024 2:02pm SVT WITH CHEST PAIN April 10, 2024 7:27am HOSPITAL FU May 03, 2024 2:3 9pm lung abscess May 03, 2024 3:2 3pm R KNEE PAIN May 05, 2024 7:2 9pm Hospital FU May 24, 2024 3:0 1pm [facility] 2/14 SVTS May 26, 2024 1:20 pm LUNG ABSCESS May 27, 2024 6:33 pm 3 wk fu May 31, 2024 8:30 am fu compression fractures June 01, 2024 12:33pm OTHER SPECIFIED DISORDERS OF BD & STRUCT URE June 10, 2024 2:45pm Reason for Visit Admit Date COPD exacerbation March 15, 2024 7 :04pm Lightheadedness March 15, 2024 7 :04pm Pneumonia March 15, 2024 7 :04pm Ambulatory dysfunction March 28 3:59am Cavitary lesion of lung March 28 3:59am Generalized weakness March 28, 2024 3:59am Hypoalbuminemia March 28, 2024 3 :59am Lung mass March 28, 2024 3 :59am Pneumonia March 28, 2024 3 :59am COPD (chronic obstructive pulmonary dise ase) March 28, 2024 3:59am Abdominal pain March 28, 2024 3 :59am Acute cystitis March 28, 2024 3 :59am Constipation March 28, 2024 3 :59am Ileus March 28, 2024 3 :59am Ileus due to infection March 28 3:59am Leukocytosis March 28, 2024 3 :59am On home oxygen therapy March 28 3:59am Chronic hyponatremia March 28, 2024 3:59am Colonic mass March 28, 2024 3 :59am Smoking greater than 40 pack years u 2024 3:59am Stercoral colitis March 28, 2024 3 :59am Tobacco dependence March 28, 2024 3 :59am Cavitary lesion of lung April 09, 025 2:11am Leg edema April 09, 2024 2:11am COPD (chronic obstructive pulmonary dise ase) April 09, 2024 2:11am SVT (supraventricular tachycardia) Febru rajat 2024 2:11am Acute hypotension April 09, 2024 2:11am Adverse drug reaction April 09 2:11am Elevated troponin April 09, 2024 2:11am Lung abscess May 03, 2024 2:3 9pm COPD (chronic obstructive pulmonary dise ase) May 03, 2024 2:39pm Nicotine abuse May 03, 2024 2:3 9pm Dysgeusia May 24, 2024 3:0 1pm Weight loss May 24, 2024 3:0 1pm Anemia May 26, 2024 1:20 pm Lung abscess May 26, 2024 1:20 pm Hypertension May 26, 2024 1:20 pm SVT (supraventricular tachycardia) May 26, 2024 1:20pm Lung abscess May 31, 2024 8:30 am COPD (chronic obstructive pulmonary dise ase) May 31, 2024 8:30am Nicotine abuse May 31, 2024 8:30 am Chief Complaint Admit Date PNA AND AECOPD March 15, 2024 7 :04pm COPD EXACERBATION, PNEUMONIA, TACHYCARDI A March 15, 2024 7:05pm PNA AND AECOPD March 16, 2024 7 :52am PNA AND AECOPD March 17, 2024 8 :45am PNA AND AECOPD March 18, 2024 8 :53am PNA AND AECOPD March 19, 2024 7 :28am PNA AND AECOPD March 20, 2024 9 :26am CAVITARY PNEUMONIA; SUSPICIOUS FOR TB Fe bruary 2024 3:59am CAVITARY PNEUMONIA; SUSPICIOUS FOR TB Fe bruary 2024 9:47am CAVITARY PNEUMONIA; SUSPICIOUS FOR TB Fe bruary 2024 7:37am CAVITARY PNEUMONIA; SUSPICIOUS FOR TB Fe bruary 2024 2:55pm CAVITARY PNEUMONIA; SUSPICIOUS FOR TB Fe bruary 2024 5:17pm CAVITARY PNEUMONIA; SUSPICIOUS FOR TB Fe bruary 2024 3:32am CAVITARY PNEUMONIA; SUSPICIOUS FOR TB Fe bruary 2024 8:02am CAVITARY PNEUMONIA; SUSPICIOUS FOR TB Fe bruary 2024 2:25pm CAVITARY PNEUMONIA; SUSPICIOUS FOR TB Fe bruary 2024 2:04am CAVITARY PNEUMONIA; SUSPICIOUS FOR TB Fe bruary 2024 7:33am CAVITARY PNEUMONIA; SUSPICIOUS FOR TB Fe bruary 2024 8:43am CAVITARY PNEUMONIA; SUSPICIOUS FOR TB Fe bruary 2024 1:25pm CAVITARY PNEUMONIA; SUSPICIOUS FOR TB Fe bruary 2024 6:40am CAVITARY PNEUMONIA; SUSPICIOUS FOR TB Fe bruary 2024 12:16pm CAVITARY PNEUMONIA; SUSPICIOUS FOR TB Fe bruary 2024 10:51am CAVITARY PNEUMONIA; SUSPICIOUS FOR TB Fe bruary 2024 12:16pm CAVITARY PNEUMONIA; SUSPICIOUS FOR TB Fe bruary 2024 12:07pm CAVITARY PNEUMONIA; SUSPICIOUS FOR TB Fe bruary 2024 12:32pm CAVITARY PNEUMONIA; SUSPICIOUS FOR TB Fe bruary 2024 8:35am CAVITARY PNEUMONIA; SUSPICIOUS FOR TB Fe bruary 2024 9:50am CAVITARY PNEUMONIA; SUSPICIOUS FOR TB Fe bruary 2024 8:24am CAVITARY PNEUMONIA; SUSPICIOUS FOR TB Fe bruary 2024 9:59am CAVITARY PNEUMONIA; SUSPICIOUS FOR TB Fe bruary 2024 7:45am CAVITARY PNEUMONIA; SUSPICIOUS FOR TB Fe bruary 2024 8:11am CAVITARY PNEUMONIA; SUSPICIOUS FOR TB Fe bruary 2024 8:29am CAVITARY PNEUMONIA; SUSPICIOUS FOR TB Fe bruary 2024 10:31am SVT WITH CHEST PAIN April 09, 2024 2:11am SVT WITH CHEST PAIN April 09, 2024 2:02pm SVT WITH CHEST PAIN April 10, 2024 7:27am HOSPITAL FU May 03, 2024 2:3 9pm lung abscess May 03, 2024 3:2 3pm R KNEE PAIN May 05, 2024 7:2 9pm Hospital FU May 24, 2024 3:0 1pm [facility] / SVTS May 26, 2024 1:20 pm LUNG ABSCESS May 27, 2024 6:33 pm 3 wk fu May 31, 2024 8:30 am fu compression fractures June 01, 2024 12:33pm OTHER SPECIFIED DISORDERS OF BD & STRUCT URE June 10, 2024 2:45pm COPD EXACERBATION July 10, 2024 3:43a m Chief Complaint Admit Date PNA AND AECOPD March 15, 2024 7 :04pm COPD EXACERBATION, PNEUMONIA, TACHYCARDI A March 15, 2024 7:05pm PNA AND AECOPD March 16, 2024 7 :52am PNA AND AECOPD March 17, 2024 8 :45am PNA AND AECOPD March 18, 2024 8 :53am PNA AND AECOPD March 19, 2024 7 :28am PNA AND AECOPD March 20, 2024 9 :26am CAVITARY PNEUMONIA; SUSPICIOUS FOR TB Fe bruary 2024 3:59am CAVITARY PNEUMONIA; SUSPICIOUS FOR TB Fe bruary 2024 9:47am CAVITARY PNEUMONIA; SUSPICIOUS FOR TB Fe bruary 2024 7:37am CAVITARY PNEUMONIA; SUSPICIOUS FOR TB Fe bruary 2024 2:55pm CAVITARY PNEUMONIA; SUSPICIOUS FOR TB Fe bruary 2024 5:17pm CAVITARY PNEUMONIA; SUSPICIOUS FOR TB Fe bruary 2024 3:32am CAVITARY PNEUMONIA; SUSPICIOUS FOR TB Fe bruary 2024 8:02am CAVITARY PNEUMONIA; SUSPICIOUS FOR TB Fe bruary 2024 2:25pm CAVITARY PNEUMONIA; SUSPICIOUS FOR TB Fe bruary 2024 2:04am CAVITARY PNEUMONIA; SUSPICIOUS FOR TB Fe bruary 2024 7:33am CAVITARY PNEUMONIA; SUSPICIOUS FOR TB Fe bruary 2024 8:43am CAVITARY PNEUMONIA; SUSPICIOUS FOR TB Fe bruary 2024 1:25pm CAVITARY PNEUMONIA; SUSPICIOUS FOR TB Fe bruary 2024 6:40am CAVITARY PNEUMONIA; SUSPICIOUS FOR TB Fe bruary 2024 12:16pm CAVITARY PNEUMONIA; SUSPICIOUS FOR TB Fe bruary 2024 10:51am CAVITARY PNEUMONIA; SUSPICIOUS FOR TB Fe bruary 2024 12:16pm CAVITARY PNEUMONIA; SUSPICIOUS FOR TB Fe bruary 2024 12:07pm CAVITARY PNEUMONIA; SUSPICIOUS FOR TB Fe bruary 2024 12:32pm CAVITARY PNEUMONIA; SUSPICIOUS FOR TB Fe bruary 2024 8:35am CAVITARY PNEUMONIA; SUSPICIOUS FOR TB Fe bruary 2024 9:50am CAVITARY PNEUMONIA; SUSPICIOUS FOR TB Fe bruary 2024 8:24am CAVITARY PNEUMONIA; SUSPICIOUS FOR TB Fe bruary 2024 9:59am CAVITARY PNEUMONIA; SUSPICIOUS FOR TB Fe bruary 2024 7:45am CAVITARY PNEUMONIA; SUSPICIOUS FOR TB Fe bruary 2024 8:11am CAVITARY PNEUMONIA; SUSPICIOUS FOR TB Fe bruary 2024 8:29am CAVITARY PNEUMONIA; SUSPICIOUS FOR TB Fe bruary 2024 10:31am SVT WITH CHEST PAIN April 09, 2024 2:11am SVT WITH CHEST PAIN April 09, 2024 2:02pm SVT WITH CHEST PAIN April 10, 2024 7:27am HOSPITAL FU May 03, 2024 2:3 9pm lung abscess May 03, 2024 3:2 3pm R KNEE PAIN May 05, 2024 7:2 9pm Hospital FU May 24, 2024 3:0 1pm [facility] 2/14 SVTS May 26, 2024 1:20 pm LUNG ABSCESS May 27, 2024 6:33 pm 3 wk fu May 31, 2024 8:30 am fu compression fractures June 01, 2024 12:33pm OTHER SPECIFIED DISORDERS OF BD & STRUCT URE June 10, 2024 2:45pm COPD EXACERBATION July 10, 2024 3:48a m COPD July 10, 2024 4:07a m Reason for Visit Admit Date COPD exacerbation March 15, 2024 7 :04pm Lightheadedness March 15, 2024 7 :04pm Pneumonia March 15, 2024 7 :04pm Ambulatory dysfunction March 28 3:59am Cavitary lesion of lung March 28 3:59am Generalized weakness March 28, 2024 3:59am Hypoalbuminemia March 28, 2024 3 :59am Lung mass March 28, 2024 3 :59am Pneumonia March 28, 2024 3 :59am COPD (chronic obstructive pulmonary dise ase) March 28, 2024 3:59am Abdominal pain March 28, 2024 3 :59am Acute cystitis March 28, 2024 3 :59am Constipation March 28, 2024 3 :59am Ileus March 28, 2024 3 :59am Ileus due to infection March 28 3:59am Leukocytosis March 28, 2024 3 :59am On home oxygen therapy March 28 3:59am Chronic hyponatremia March 28, 2024 3:59am Colonic mass March 28, 2024 3 :59am Smoking greater than 40 pack years 2024 3:59am Stercoral colitis March 28, 2024 3 :59am Tobacco dependence March 28, 2024 3 :59am Cavitary lesion of lung April 09, 2 025 2:11am Leg edema April 09, 2024 2:11am COPD (chronic obstructive pulmonary dise ase) April 09, 2024 2:11am SVT (supraventricular tachycardia) Febru [email or web address] 2:11am Acute hypotension April 09, 2024 2:11am Adverse drug reaction April 09 2:11am Elevated troponin April 09, 2024 2:11am Lung abscess May 03, 2024 2:3 9pm COPD (chronic obstructive pulmonary dise ase) May 03, 2024 2:39pm Nicotine abuse May 03, 2024 2:3 9pm Dysgeusia May 24, 2024 3:0 1pm Weight loss May 24, 2024 3:0 1pm Anemia May 26, 2024 1:20 pm Lung abscess May 26, 2024 1:20 pm Hypertension May 26, 2024 1:20 pm SVT (supraventricular tachycardia) May 26, 2024 1:20pm Lung abscess May 31, 2024 8:30 am COPD (chronic obstructive pulmonary dise ase) May 31, 2024 8:30am Nicotine abuse May 31, 2024 8:30 am Acute exacerbation of chroni c obstructive pulmonary disease July 10, 2024 4:07am Chief Complaint Admit Date HOSPITAL FU May 03, 2024 2:3 9pm lung abscess May 03, 2024 3:2 3pm R KNEE PAIN May 05, 2024 7:2 9pm Hospital FU May 24, 2024 3:0 1pm [facility] 2/14 SVTS May 26, 2024 1:20 pm LUNG ABSCESS May 27, 2024 6:33 pm 3 wk fu May 31, 2024 8:30 am fu compression fractures June 01, 2024 12:33pm OTHER SPECIFIED DISORDERS OF BD & STRUCT URE June 10, 2024 2:45pm COPD EXACERBATION July 10, 2024 3:48a m COPD July 10, 2024 4:07a m COPD July 11, 2024 12:33 pm VERTEBRAL FX. RX HERE August 10, 2024 2: 00pm 3 Month f/u August 23, 2024 2:53 pm Reason for Visit Admit Date Lung abscess May 03, 2024 2:3 9pm COPD (chronic obstructive pulmonary dise ase) May 03, 2024 2:39pm Nicotine abuse May 03, 2024 2:3 9pm Dysgeusia May 24, 2024 3:0 1pm Weight loss May 24, 2024 3:0 1pm Anemia May 26, 2024 1:20 pm Lung abscess May 26, 2024 1:20 pm Hypertension May 26, 2024 1:20 pm SVT (supraventricular tachycardia) May 26, 2024 1:20pm Lung abscess May 31, 2024 8:30 am COPD (chronic obstructive pulmonary dise ase) May 31, 2024 8:30am Nicotine abuse May 31, 2024 8:30 am Acute exacerbation of chronic obstructiv e pulmonary disease July 10, 2024 4:07am Anemia August 23, 2024 2:53 pm Reason for Visit Admit Date Lung abscess May 03, 2024 2:3 9pm COPD (chronic obstructive pulmonary dise ase) May 03, 2024 2:39pm Nicotine abuse May 03, 2024 2:3 9pm Dysgeusia May 24, 2024 3:0 1pm Weight loss May 24, 2024 3:0 1pm Anemia May 26, 2024 1:20 pm Lung abscess May 26, 2024 1:20 pm Hypertension May 26, 2024 1:20 pm SVT (supraventricular tachycardia) May 26, 2024 1:20pm Lung abscess May 31, 2024 8:30 am COPD (chronic obstructive pulmonary dise ase) May 31, 2024 8:30am Nicotine abuse May 31, 2024 8:30 am Acute exacerbation of chronic obstructiv e pulmonary disease July 10, 2024 4:07am Anemia August 23, 2024 2:53 pm Dysgeusia August 23, 2024 2:53 pm Weight loss August 23, 2024 2:53 pm Chief Complaint Admit Date HOSPITAL FU May 03, 2024 2:3 9pm lung abscess May 03, 2024 3:2 3pm R KNEE PAIN May 05, 2024 7:2 9pm Hospital FU May 24, 2024 3:0 1pm WC 2/14 SVTS May 26, 2024 1:20 pm LUNG ABSCESS May 27, 2024 6:33 pm 3 wk fu May 31, 2024 8:30 am fu compression fractures June 01, 2024 12:33pm OTHER SPECIFIED DISORDERS OF BD & STRUCT URE June 10, 2024 2:45pm COPD EXACERBATION July 10, 2024 3:48a m COPD July 10, 2024 4:07a m COPD July 11, 2024 12:33 pm VERTEBRAL FX. RX HERE August 10, 2024 2: 00pm 3 Month f/u August 23, 2024 2:53 pm 3 M FU August 31, 2024 1:05p m Reason for Visit Admit Date Lung abscess May 03, 2024 2:3 9pm COPD (chronic obstructive pulmonary dise ase) May 03, 2024 2:39pm Nicotine abuse May 03, 2024 2:3 9pm Dysgeusia May 24, 2024 3:0 1pm Weight loss May 24, 2024 3:0 1pm Anemia May 26, 2024 1:20 pm Lung abscess May 26, 2024 1:20 pm Hypertension May 26, 2024 1:20 pm SVT (supraventricular tachycardia) May 26, 2024 1:20pm Lung abscess May 31, 2024 8:30 am COPD (chronic obstructive pulmonary dise ase) May 31, 2024 8:30am Nicotine abuse May 31, 2024 8:30 am Acute exacerbation of chronic obstructiv e pulmonary disease July 10, 2024 4:07am Anemia August 23, 2024 2:53 pm Dysgeusia August 23, 2024 2:53 pm Weight loss August 23, 2024 2:53 pm Eosinophils increased August 31, 2024 1:0 5pm Chief Complaint Admit Date [facility] 2/14 SVTS May 26, 2024 1:20 pm LUNG ABSCESS May 27, 2024 6:33 pm 3 wk fu May 31, 2024 8:30 am fu compression fractures June 01, 2024 12:33pm OTHER SPECIFIED DISORDERS OF BD & STRUCT URE June 10, 2024 2:45pm COPD EXACERBATION July 10, 2024 3:48a m COPD July 10, 2024 4:07a m COPD July 11, 2024 12:33 pm VERTEBRAL FX. RX HERE August 10, 2024 2: 00pm 3 Month f/u August 23, 2024 2:53 pm 3 M FU August 31, 2024 1:05p m Asthma- Severe Persistent Asthma September 222024 7:54am Reason for Visit Admit Date Anemia May 26, 2024 1:20 pm Lung abscess May 26, 2024 1:20 pm Hypertension May 26, 2024 1:20 pm SVT (supraventricular tachycardia) May 26, 2024 1:20pm Lung abscess May 31, 2024 8:30 am COPD (chronic obstructive pulmonary dise ase) May 31, 2024 8:30am Nicotine abuse May 31, 2024 8:30 am Acute exacerbation of chronic obstructiv e pulmonary disease July 10, 2024 4:07am Anemia August 23, 2024 2:53 pm Dysgeusia August 23, 2024 2:53 pm Weight loss August 23, 2024 2:53 pm Eosinophils increased August 31, 2024 1:0 5pm COPD (chronic obstructive pulmonary dise ase) August 31, 2024 1:05pm Nicotine abuse August 31, 2024 1:05p m COPD (chronic obstructive pulmonary dise ase) September 22, 2024 7:54am Chief Complaint Admit Date COPD EXACERBATION July 10, 2024 3:48a m COPD July 10, 2024 4:07a m COPD July 11, 2024 12:33 pm VERTEBRAL FX. RX HERE August 10, 2024 2: 00pm 3 Month f/u August 23, 2024 2:53 pm 3 M FU August 31, 2024 1:05p m Asthma- Severe Persistent Asthma September 222024 7:54am Palpitations October 12, 2024 8: 26pm Reason for Visit Admit Date Acute exacerbation of chronic obstructiv e pulmonary disease July 10, 2024 4:07am Anemia August 23, 2024 2:53 pm Dysgeusia August 23, 2024 2:53 pm Weight loss August 23, 2024 2:53 pm Eosinophils increased August 31, 2024 1:0 5pm COPD (chronic obstructive pulmonary dise ase) August 31, 2024 1:05pm Nicotine abuse August 31, 2024 1:05p m COPD (chronic obstructive pulmonary dise ase) September 22, 2024 7:54am Chief Complaint Admit Date VERTEBRAL FX. RX HERE August 10, 2024 2: 00pm 3 Month f/u August 23, 2024 2:53 pm 3 M FU August 31, 2024 1:05p m Asthma- Severe Persistent Asthma September 222024 7:54am Palpitations October 12, 2024 8: 26pm 6 M FU November 25, 2024 2: 39pm Reason for Visit Admit Date Anemia August 23, 2024 2:53 pm Dysgeusia August 23, 2024 2:53 pm Weight loss August 23, 2024 2:53 pm Eosinophils increased August 31, 2024 1:0 5pm COPD (chronic obstructive pulmonary dise ase) August 31, 2024 1:05pm Nicotine abuse August 31, 2024 1:05p m COPD (chronic obstructive pulmonary dise ase) September 22, 2024 7:54am SVT (supraventricular tachycardia) Octob er 2024 2:39pm Chief Complaint Admit Date 3 Month f/u August 23, 2024 2:53 pm 3 M FU August 31, 2024 1:05p m Asthma- Severe Persistent Asthma September 222024 7:54am Palpitations October 12, 2024 8: 26pm 6 M FU November 25, 2024 2: 39pm 3 month follow up December 06, 2024 1 :03pm Reason for Visit Admit Date Anemia August 23, 2024 2:53 pm Dysgeusia August 23, 2024 2:53 pm Weight loss August 23, 2024 2:53 pm Eosinophils increased August 31, 2024 1:0 5pm COPD (chronic obstructive pulmonary dise ase) August 31, 2024 1:05pm Nicotine abuse August 31, 2024 1:05p m COPD (chronic obstructive pulmonary dise ase) September 22, 2024 7:54am SVT (supraventricular tachycardia) Octob er 2024 2:39pm COPD (chronic obstructive pulmonary dise ase) December 06, 2024 1:03pm Smoking greater than 40 pack years Octob er 2024 1:03pm Family History Relationship Condition Age at Onset Recorded Date/T renato mother Arthritis Unknown father Diabetes mellitus Unknown Cardiac disease Unknown Hypertension Unknown Advance Directives Advance Directive Response Recorded Date/ Time Living Will No June 20, 2020 7:42pm Power of Straw Hat Brusher No June 20 7:42pm Advance Directive Response Recorded Date/ Time Living Will No September 24, 2021 3:31am Power of Straw Hat Brusher No September 24 3:31am Advance Directive Response Recorded Date/ Time Living Will No November 05, 2021 8:12am Power of Straw Hat Brusher No October 8:12am Advance Directive Response Recorded Date/ Time Living Will No November 05, 2021 11:37am Power of Straw Hat Brusher No October 11:37am Advance Directive Response Recorded Date/ Time Living Will No November 05, 2021 10:37am Power of Straw Hat Brusher No October 10:37am Advance Directive Response Recorded Date/ Time Living Will No May 26, 2023 9:07am Power of Straw Hat Brusher No May 25 9:07am Date Activated Date Inactivated Comments 05/10/2024 8:05 AM Advance Directive Response Recorded Date/ Time Living Will No February 27 5:44pm Do you have a Healthcare Power of Straw Hat Brusher? No February 28, 2024 5:44pm Living Will No March 15 8:52pm Do you have a Healthcare Power of Straw Hat Brusher? No March 15, 2024 8:52pm Living Will No March 28 5:57am Do you have a Healthcare Power of Straw Hat Brusher? No March 28, 2024 5:57am Living Will No April 09 3:36am Do you have a Healthcare Power of Straw Hat Brusher? No April 09, 2024 3:36am Living Will No May 05, 2024 8:01pm Do you have a Healthcare Power of Straw Hat Brusher? No May 05, 2024 8:01pm Advance Directive Response Recorded Date/ Time Living Will No March 15 8:52pm Do you have a Healthcare Power of Straw Hat Brusher? No March 15, 2024 8:52pm Living Will No March 28 5:57am Do you have a Healthcare Power of Straw Hat Brusher? No March 28, 2024 5:57am Living Will No April 09 3:36am Do you have a Healthcare Power of Straw Hat Brusher? No April 09, 2024 3:36am Living Will No May 05, 2024 8:01pm Do you have a Healthcare Power of Straw Hat Brusher? No May 05, 2024 8:01pm Advance Directive Response Recorded Date/ Time Do you have a Healthcare Power of Straw Hat Brusher? No July 10, 2024 1:11am Living Will No March 15 8:52pm Do you have a Healthcare Power of Straw Hat Brusher? No March 15, 2024 8:52pm Living Will No March 28 5:57am Do you have a Healthcare Power of Straw Hat Brusher? No March 28, 2024 5:57am Living Will No April 09, 2 025 3:36am Do you have a Healthcare Power of Straw Hat Brusher? No April 09, 2024 3:36am Living Will No May 05, 2024 8:01pm Do you have a Healthcare Power of Straw Hat Brusher? No May 05, 2024 8:01pm Advance Directive Response Recorded Date/ Time Do you have a Healthcare Power of Straw Hat Brusher? No July 10, 2024 4:26am Living Will No March 15 8:52pm Do you have a Healthcare Power of Straw Hat Brusher? No March 15, 2024 8:52pm Living Will No March 28 5:57am Do you have a Healthcare Power of Straw Hat Brusher? No March 28, 2024 5:57am Living Will No April 09, 2 025 3:36am Do you have a Healthcare Power of Straw Hat Brusher? No April 09, 2024 3:36am Living Will No May 05, 2024 8:01pm Do you have a Healthcare Power of Straw Hat Brusher? No May 05, 2024 8:01pm Advance Directive Response Recorded Date/ Time Do you have a Healthcare Power of Straw Hat Brusher? No July 10, 2024 4:26am Living Will No May 05, 2024 8:01pm Do you have a Healthcare Power of Straw Hat Brusher? No May 05, 2024 8:01pm Advance Directive Response Recorded Date/ Time Do you have a Healthcare Power of Straw Hat Brusher? No July 10, 2024 4:26am Advance Directive Response Recorded Date/ Time Do you have a Healthcare Power of Straw Hat Brusher? No July 10, 2024 4:26am Do you have a Healthcare Power of Straw Hat Brusher? No October 12, 2024 8:34pm Advance Directive Response Recorded Date/ Time Do you have a Healthcare Power of Straw Hat Brusher? No October 12, 2024 8:34pm Summary Purpose Additional Source Comments Goals (unrecognized section and content) Goals may be documented in a n alternate sectionGoals may be documented in an alternate sectionGoals may be documented in an alternate sectionGoals may be documented in an alternate sectionGoals may be documented in an alternate sectionGoals may be documented in an alternate sectionGoals may be documented in an alternate sectionGoals may be documented in an alternate sectionGoals may be documented in an alternate sectionGoals may be documented in an alternate sectionGoals may be documented in an alternate sectionGoals may be documented in an alternate sectionGoals may be documented in an alternate sectionGoals may be documented in an alternate section Care Teams (unrecognized sec tion and content) Team Status: Active Member Role Status Dates Dr. Stone Fortune MD Family Provider Active Dr. Stone Fortune MD Primary Care Provider Activ e Team Status: Inactive Member Role Status Dates Dr. Stone Fortune MD Primary Care Provider, Refe rring Provider Active Dr. Efren Kay MD Attending Provider Active Team Status: Inactive Member Role Status Dates Dr. Stone Fortune MD Primary Care Provider, Refe rring Provider Active Mikayla Ventura LIQUOR DEPARTMENT MANAGER, LIQUOR DEPARTMENT MANAGER-C Attending Provider Active Team Status: Active Member Role Status Dates Dr. Stone Fortune MD Primary Care Provider Activ e Dr. Efren Kay MD Attending Provider , Referring Provider, Other Provider Active Team Status: Active Member Role Status Dates Dr. Stone Fortune MD Primary Care Provider Activ e Dr. Efren Kay MD Attending Provider Active Team Status: Inactive Member Role Status Dates Dr. Stone Fortune MD Primary Care Provider Activ e Dr. Efren Kay MD Attending Provider Active Team Status: Inactive Member Role Status Dates Dr. Stone Fortune MD Primary Care Provider Activ e Dr. Efren Kay MD Attending Provider, Referring Pr ovider Active Team Status: Inactive Member Role Status Dates Dr. Stone Fortune MD Primary Care Provider, Atte nding Provider Active Team Status: Inactive Member Role Status Dates Dr. Stone Fortune MD Primary Care Provider Activ e SG FERGUSON MD Attending Provider, Referring Provider Active Team Status: Inactive Member Role Status Dates Dr. Stone Fortune MD Primary Care Provider, Attending Provider, Referring Provider Active Team Status: Inactive Member Role Status Dates Dr. Stone Fortune MD Primary Care Provider Activ e LIQUOR DEPARTMENT MANAGER. Meera Dhillon Attending Provider, Referring Provid er Active Team Status: Inactive Member Role Status Dates Dr. Stone Fortune MD Primary Care Provider Activ e Mikayla Ventura LIQUOR DEPARTMENT MANAGER, LIQUOR DEPARTMENT MANAGER-C Attending Provider, Referrin g Provider Active Team Status: Inactive Member Role Status Dates Dr. Stone Fortune MD Primary Care Provider Activ e Dr. Andrey Guerrero MD Emergency Provider Active 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 Start Date End Date Xavi Fortune MD [address] [facility] [address] [place] [place] [id number] PCP - General Family Medicine 03/18/17 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 Start Date End Date Xavi Fortune MD [address] [place], [place] [id number] PCP - General Family Medicine 03/18/17 Neil Augustin DO [address] [facility] [address] [place], [place] [id number] Referring Family Medicine 04/12/24 Xavi Fortune MD [address] [place], [place] [id number] Home Care Provider Family Medicine 04/12/24 Blaze Estes, WHIT [address] [place], [place] [phone] Supervisor Area Post Acute Care 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 Start Date End Date Xavi Fortune MD [address] [facility] [address] [place], [place] [phone] PCP - General Family Medicine 03/18/17 Neil Augustin DO [address] [facility] [address] [place] [address] Referring Family Medicine 04/12/24 Xavi Fortune MD [address] [facility] [place] [address] Home Care Provider Family Medicine 04/12/24 Blaze Estes RN [address] [place], [place] [phone] Supervisor Area Post Acute Care 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 Start Date End Date Xavi Fortune MD [address] [facility] [place] [address] PCP - General Family Medicine 03/18/17 Neil Augustin DO 1 [facility] [address] [place] [address] Referring Family Medicine 04/12/24 Xavi Fortune MD [address] [place] [address] Home Care Provider Family Medicine 04/12/24 Blaze Estes RN [address] [place], [place] [phone] Supervisor Area Post Acute Care 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 Start Date End Date Xavi Fortune MD [address] [facility], [place] [address] PCP - General Family Medicine 03/18/17 Neil Augustin DO [address] [facility] [address] [place], [place] [phone] Referring Family Medicine 04/12/24 Xavi Fortune MD [address] [place] [address] Home Care Provider Family Medicine 04/12/24 Blaze Estes RN [address] [place], [place] [phone] Supervisor Area Post Acute Care 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 Start Date End Date Xavi Fortune MD [address] [place] [address] PCP - General Family Medicine 03/18/17 Neil Augustin DO [address] [facility] [address] [place], [place] [phone] Referring Family Medicine 04/12/24 Xavi Fortune MD [address] [place] [address] Home Care Provider Family Medicine 04/12/24 Blaze Estes RN [address] [place], [place] [phone] Supervisor Area Post Acute Care 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 Start Date End Date Xavi Fortune MD [address] [place] [address] PCP - General Family Medicine 03/18/17 Neil Augustin DO [address] [facility] [address] [place], [place] [phone] Referring Family Medicine 04/12/24 aXvi Fortune MD [address] [place] [address] Home Care Provider Family Medicine 04/12/24 Blaze Estes RN [address] [place], [place] [phone] Supervisor Area Post Acute Care 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 Start Date End Date Xavi Fortune MD [address] [place] [address] PCP - General Family Medicine 03/18/17 Neil Augustin DO [address] [facility] [place], [place] [id number] Referring Family Medicine 04/12/24 Xavi Fortune MD [address] [place] [address] Home Care Provider Family Medicine 04/12/24 Blaze Estes RN [address] [place] [address] Supervisor Area Post Acute Care 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 Start Date End Date Xavi Fortune MD [address] [place] [address] PCP - General Family Medicine 03/18/17 Neil Augustin DO 1 [facility] [address] [place] [address] Referring Family Medicine 04/12/24 Xavi Fortune MD [address] [place] [address] Home Care Provider Family Medicine 04/12/24 Blaze Estes RN [address] [place], [place] [phone] Supervisor Area Post Acute Care 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 Start Date End Date Xavi Fortune MD [address] [place] [address] PCP - General Family Medicine 03/18/17 Neil Augustin DO [address] [facility] [place] [address] Referring Family Medicine 04/12/24 Xavi Fortune MD [address] [place] [address] Home Care Provider Family Medicine 04/12/24 Blaze Estes RN [address] [place], [place] [phone] Supervisor Area Post Acute Care 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 Start Date End Date Xavi Fortune MD [address] [place] [address] PCP - General Family Medicine 03/18/17 Neil Augustin DO 1 [facility] [address] [place] [address] Referring Family Medicine 04/12/24 Xavi Fortune MD [address] [place] [address] Home Care Provider Family Medicine 04/12/24 Blaze Estes RN [address] [place] [address] Supervisor Area Post Acute Care 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 Start Date End Date Xavi Fortune MD [address] [place] [address] PCP - General Family Medicine 03/18/17 Neil Augustin DO [address] [facility] [facility] [address] [place], [place] [id number] Referring Family Medicine 04/12/24 Xavi Fortune MD [address] [facility], [place] [address] Home Care Provider Family Medicine 04/12/24 Blaze Estes RN [address] [place], [place] [id number] Supervisor Area Post Acute Care 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 Xvai Fortune MD Primary Care Provider Acti ve Team Status: Inactive Member Role Status Dates Dr. Xavi Fortune MD Primary Care Provider Acti ve Start: February 23, 2024 End: February 23, 2024 Mikayla Ventura LIQUOR DEPARTMENT MANAGER, LIQUOR DEPARTMENT MANAGER-C Attending Provider Active Start: February 23, 2024 End: February 23, 2024 Mikayla Ventura LIQUOR DEPARTMENT MANAGER, LIQUOR DEPARTMENT MANAGER-C Referring Provider Active Start: February 23, 2024 End: February 23, 2024 Team Status: Inactive Member Role Status Dates Dr. Xavi Fortune MD Primary Care Provider Acti ve Start: February 28, 2024 End: March 02, 2024 Dr. Andrey Guerrero MD Emergency Provider Active S tart: February 28, 2024 End: March 02, 2024 Dr. Felix Garcia MD Admit Provider Active Star t: February 28, 2024 End: March 02, 2024 Dr. Felix Garcia MD Attending Provider Active Start: February 28, 2024 End: March 02, 2024 Team Status: Active Member Role Status Dates Dr. Xavi Fortune MD Primary Care Provider Acti ve Start: February 28, 2024 Dr. Andrey Guerrero MD Emergency Provider Active S tart: February 28, 2024 Dr. Felix Garcia MD Admit Provider Active Star t: February 28, 2024 Dr. Felix Garcia MD Attending Provider Active Start: February 28, 2024 Dr. Felix Garcia MD Other Provider Active Star t: February 28, 2024 Team Status: Active Member Role Status Dates Dr. Xavi Fortune MD Primary Care Provider Acti ve Start: February 29, 2024 Dr. Andrey Guerrero MD Emergency Provider Active S tart: February 29, 2024 Dr. Felix Garcia MD Admit Provider Active Star t: February 29, 2024 Dr. Felix Garcia MD Attending Provider Active Start: February 29, 2024 Dr. Felix Garcia MD Other Provider Active Star t: February 29, 2024 Team Status: Active Member Role Status Dates Dr. Xavi Fortune MD Primary Care Provider Acti ve Start: March 01, 2024 Dr. Andrey Guerrero MD Emergency Provider Active S tart: March 01, 2024 Dr. Felix Garcia MD Admit Provider Active Star t: March 01, 2024 Dr. Felix Garcia MD Attending Provider Active Start: March 01, 2024 Dr. Felix Garcia MD Other Provider Active Star t: March 01, 2024 Team Status: Active Member Role Status Dates Dr. Xavi Fortune MD Primary Care Provider Acti ve Start: March 01, 2024 Dr. Rashard Estrada MD Attending Provider Active S tart: March 01, 2024 Team Status: Active Member Role Status Dates Dr. Xavi Fortune MD Primary Care Provider Acti ve Start: March 02, 2024 Dr. Andrey Guerrero MD Emergency Provider Active S tart: March 02, 2024 Dr. Felix Garcia MD Admit Provider Active Star t: March 02, 2024 Dr. Felix Garcia MD Attending Provider Active Start: March 02, 2024 Dr. Felix Garcia MD Other Provider Active Star t: March 02, 2024 Team Status: Active Member Role Status Dates Dr. Xavi Fortune MD Primary Care Provider Acti ve Start: March 02, 2024 Mikayla Ventura LIQUOR DEPARTMENT MANAGER, LIQUOR DEPARTMENT MANAGER-C Referring Provider Active Start: March 02, 2024 Mikayla Ventura LIQUOR DEPARTMENT MANAGER, LIQUOR DEPARTMENT MANAGER-C Other Provider Active Start: March 02, 2024 Dr. Von Zambrano DO Attending Provider Active S tart: March 02, 2024 Team Status: Inactive Member Role Status Dates Dr. Xavi Fortune MD Primary Care Provider Acti ve Start: March 08, 2024 End: March 08, 2024 Dr. Xavi Fortune MD Attending Provider Active Start: March 08, 2024 End: March 08, 2024 Dr. Xavi Fortune MD Referring Provider Active Start: March 08, 2024 End: March 08, 2024 Team Status: Inactive Member Role Status Dates Dr. Xavi Fortune MD Primary Care Provider Acti ve Start: March 15, 2024 End: March 20, 2024 Dr. Lowell Anna DO Emergency Provider Active Start: March 15, 2024 End: March 20, 2024 Dr. Dana Miguel MD Admit Provider Active Star t: March 15, 2024 End: March 20, 2024 Dr. Dana Miguel MD Other Provider Active Star t: March 15, 2024 End: March 20, 2024 Dr. Neil Augustin DO Attending Provider Active Start: March 15, 2024 End: March 20, 2024 Team Status: Active Member Role Status Dates Dr. Xavi Fortune MD Primary Care Provider Acti ve Start: March 15, 2024 Dr. Lowell Anna DO Emergency Provider Active Start: March 15, 2024 Dr. Dana Miguel MD Admit Provider Active Star t: March 15, 2024 Dr. Dana Miguel MD Attending Provider Active Start: March 15, 2024 Dr. Dana Miguel MD Other Provider Active Star t: March 15, 2024 Team Status: Active Member Role Status Dates Dr. Xavi Fortune MD Primary Care Provider Acti ve Start: March 16, 2024 Dr. Lowell Anna DO Emergency Provider Active Start: March 16, 2024 Dr. Dana Miguel MD Admit Provider Active Star t: March 16, 2024 Dr. Dana Miguel MD Other Provider Active Star t: March 16, 2024 Dr. Neil Augustin DO Attending Provider Active Start: March 16, 2024 Dr. Neil Augustin DO Other Provider Active Star t: March 16, 2024 Team Status: Active Member Role Status Dates Dr. Xavi Fortune MD Primary Care Provider Acti ve Start: March 17, 2024 Dr. Lowell Anna DO Emergency Provider Active Start: March 17, 2024 Dr. Dana Miguel MD Admit Provider Active Star t: March 17, 2024 Dr. Dana Miguel MD Other Provider Active Star t: March 17, 2024 Dr. Neil Augustin DO Attending Provider Active Start: March 17, 2024 Dr. Neil Augustin DO Other Provider Active Star t: March 17, 2024 Team Status: Active Member Role Status Dates Dr. Xavi Fortune MD Primary Care Provider Acti ve Start: March 18, 2024 Dr. Lowell Anna DO Emergency Provider Active Start: March 18, 2024 Dr. Dana Miguel MD Admit Provider Active Star t: March 18, 2024 Dr. Dana Miguel MD Other Provider Active Star t: March 18, 2024 Dr. Neil Augustin DO Attending Provider Active Start: March 18, 2024 Dr. Neil Augustin DO Other Provider Active Star t: March 18, 2024 Team Status: Active Member Role Status Dates Dr. Xavi Fortune MD Primary Care Provider Acti ve Start: March 19, 2024 Dr. Lowell Anna DO Emergency Provider Active Start: March 19, 2024 Dr. Dana Miguel MD Admit Provider Active Star t: March 19, 2024 Dr. Dana Miguel MD Other Provider Active Star t: March 19, 2024 Dr. Neil Augustin DO Attending Provider Active Start: March 19, 2024 Dr. Neil Augustin DO Other Provider Active Star t: March 19, 2024 Team Status: Active Member Role Status Dates Dr. Xavi Fortune MD Primary Care Provider Acti ve Start: March 20, 2024 Dr. Lowell Anna , Emergency Provider Active Start: March 20, 2024 Dr. Dana Miguel MD Admit Provider Active Star t: March 20, 2024 Dr. Dana Miguel MD Other Provider Active Star t: March 20, 2024 Dr. Neil Augustin DO Attending Provider Active Start: March 20, 2024 Dr. Neil Augustin DO Other Provider Active Star t: March 20, 2024 Team Status: Inactive Member Role Status Dates Dr. Xavi Fortune MD Primary Care Provider Acti ve Start: March 28, 2024 End: April 08, 2024 Dr. Canelo Heredia DO Emergency Provider Active Start : March 28, 2024 End: April 08, 2024 Dr. Felix Greenfield DO Admit Provider Active Start: March 28, 2024 End: April 08, 2024 Dr. Felix Greenfield DO Other Provider Active Start: March 28, 2024 End: April 08, 2024 Dr. Jordan Ortega MD Other Provider Active Start: March 28, 2024 End: April 08, 2024 Dr. Seferino Byrd , Other Provider Active S tart: March 28, 2024 End: April 08, 2024 Dr. Ricci Kruse MD Other Provider Active Start: March 28, 2024 End: April 08, 2024 Dr. Neil Augustin DO Attending Provider Active Start: March 28, 2024 End: April 08, 2024 Dr. Liz Alvarenga MD Other Provider Active St art: March 28, 2024 End: April 08, 2024 Team Status: Active Member Role Status Dates Dr. Xavi Fortune MD Primary Care Provider Acti ve Start: March 28, 2024 Dr. Canelo Heredia DO Emergency Provider Active Start : March 28, 2024 Dr. Felix Greenfield DO Admit Provider Active Start: March 28, 2024 Dr. Felix Greenfield DO Other Provider Active Start: March 28, 2024 Dr. Jordan Ortega MD Attending Provider Active Start: March 28, 2024 Dr. Jordan Ortega MD Other Provider Active Start: March 28, 2024 Dr. Seferino Byrd , Other Provider Active S tart: March 28, 2024 Dr. Neil Augustin DO Referring Provider Active Start: March 28, 2024 Team Status: Active Member Role Status Dates Dr. Xavi Fortune MD Primary Care Provider Acti ve Start: March 29, 2024 Dr. Canelo Heredia DO Emergency Provider Active Start : March 29, 2024 Dr. Felix Greenfield , DO Admit Provider Active Start: March 29, 2024 Dr. Felix Greenfield , Other Provider Active Start: March 29, 2024 Dr. Jordan Ortega MD Attending Provider Active Start: March 29, 2024 Dr. Jordan Ortega MD Other Provider Active Start: March 29, 2024 Dr. Liz Alvarenga MD Other Provider Active St art: March 29, 2024 Dr. Seferino Byrd DO Other Provider Active S tart: March 29, 2024 Team Status: Active Member Role Status Dates Dr. Xavi Fortune MD Primary Care Provider Acti ve Start: March 29, 2024 Dr. Canelo Heredia DO Emergency Provider Active Start : March 29, 2024 Dr. Felix Grenefield DO Admit Provider Active Start: March 29, 2024 Dr. Felix Greenfield DO Other Provider Active Start: March 29, 2024 Dr. Jordan Ortega MD Other Provider Active Start: March 29, 2024 Dr. Liz Alvarenga MD Attending Provider Active Start: March 29, 2024 Dr. Liz Alvarenga MD Other Provider Active St art: March 29, 2024 Dr. Seferino Byrd DO Other Provider Active S tart: March 29, 2024 Dr. Ricci Kruse MD Other Provider Active Start: March 29, 2024 Dr. Dawit Colindres MD Other Provider Active Start: March 29, 2024 Dr. Ivan Johnson MD Other Provider Active Start: March 29, 2024 Dr. Efren Kay MD Other Provider Active Star t: March 29, 2024 Dr. Von Zambrano , Other Provider Active Start : March 29, 2024 Dr. Felix Morales MD Other Provider Active Sta rt: March 29, 2024 Dr. Gualberto Gallego MD Other Provider Active St art: March 29, 2024 Dr. Olman Moon MD Other Provider Active S tart: March 29, 2024 Dr. Khushi Valera MD Other Provider Active Start: March 29, 2024 Dr. Darrius Bowman MD Other Provider Active Start : March 29, 2024 Dr. Bert Pack MD Other Provider Active Start: March 29, 2024 Dr. Andres Gonsalves MD Other Provider Active Start : March 29, 2024 Dr. Farnaz Mariscal MD Other Provider Active Star t: March 29, 2024 Dr. Patsy Benavides MD Other Provider Active Sta rt: March 29, 2024 Dr. Edwina Rodney MD Other Provider Active Sta rt: March 29, 2024 Dr. Nestor Dominguez MD Other Provider Active Star t: March 29, 2024 Dr. Miguelito Mckee MD Other Provider Active St art: March 29, 2024 Dr. Larry Murcia MD Other Provider Active Star t: March 29, 2024 Dr. Gilberto Morales , Other Provider Active St art: March 29, 2024 Dr. Jose Lujan MD Other Provider Active Start: March 29, 2024 Dr. Loretta Lund MD Other Provider Active St art: March 29, 2024 Dr. Ryland Muhammad DO Other Provider Active Start: March 29, 2024 Dr. José Miguel Albright MD Other Provider Active Star t: March 29, 2024 Dr. Aiden Rankin MD Other Provider Active Sta rt: March 29, 2024 Team Status: Active Member Role Status Dates Dr. Xavi Fortune MD Primary Care Provider Acti ve Start: March 29, 2024 Dr. Canelo Heredia , Emergency Provider Active Start : March 29, 2024 Dr. Felix Greenfield , DO Admit Provider Active Start: March 29, 2024 Dr. Felix Greenfield , Other Provider Active Start: March 29, 2024 Dr. Jordan Ortega MD Other Provider Active Start: March 29, 2024 Dr. Liz Alvarenga MD Referring Provider Active Start: March 29, 2024 Dr. Liz Alvarenga MD Other Provider Active St art: March 29, 2024 Dr. Seferino Byrd DO Other Provider Active S tart: March 29, 2024 Dr. Ricci Kruse MD Other Provider Active Start: March 29, 2024 Dr. Dawit Colindres MD Other Provider Active Start: March 29, 2024 Dr. Ivan Johnson MD Other Provider Active Start: March 29, 2024 Dr. Efren Kay MD Other Provider Active Star t: March 29, 2024 Dr. Von Zambrano , Other Provider Active Start : March 29, 2024 Dr. Felix Morales MD Other Provider Active Sta rt: March 29, 2024 Dr. Gualberto Gallego MD Other Provider Active St art: March 29, 2024 Dr. Olman Moon MD Other Provider Active S tart: March 29, 2024 Dr. Khushi Valera MD Other Provider Active Start: March 29, 2024 Dr. Darrius Bowman MD Other Provider Active Start : March 29, 2024 Dr. Bert Pack MD Other Provider Active Start: March 29, 2024 Dr. Andrse Gonsalves MD Other Provider Active Start : March 29, 2024 Dr. Farnaz Mariscal MD Other Provider Active Star t: March 29, 2024 Dr. Patsy Benavides MD Other Provider Active Sta rt: March 29, 2024 Dr. Edwina Rodney MD Other Provider Active Sta rt: March 29, 2024 Dr. Nestor Dominguez MD Other Provider Active Star t: March 29, 2024 Dr. Miguelito Mckee MD Other Provider Active St art: March 29, 2024 Dr. Larry Murcia MD Other Provider Active Star t: March 29, 2024 Dr. Gilberto Morales DO Other Provider Active St art: March 29, 2024 Dr. Jose Lujan MD Other Provider Active Start: March 29, 2024 Dr. Loretta Lund MD Other Provider Active St art: March 29, 2024 Dr. Ryland Muhammad , Other Provider Active Start: March 29, 2024 Dr. José Miguel Albright MD Other Provider Active Star t: March 29, 2024 Dr. Aiden Rankin MD Other Provider Active Sta rt: March 29, 2024 Dr. Walt Turner , Attending Provider Active Start: March 29, 2024 Team Status: Active Member Role Status Dates Dr. Xavi Fortune MD Primary Care Provider Acti ve Start: March 30, 2024 Dr. Canelo Heredia , Emergency Provider Active Start : March 30, 2024 Dr. Felix Greenfield , Admit Provider Active Start: March 30, 2024 Dr. Felix Greenfield DO Other Provider Active Start: March 30, 2024 Dr. Jordan Ortega MD Other Provider Active Start: March 30, 2024 Dr. Liz Alvarenga MD Attending Provider Active Start: March 30, 2024 Dr. Liz Alvarenga MD Other Provider Active St art: March 30, 2024 Dr. Seferino Byrd , Other Provider Active S tart: March 30, 2024 Dr. Ricci Kruse MD Other Provider Active Start: March 30, 2024 Dr. Dawit Colindres MD Other Provider Active Start: March 30, 2024 Dr. Ivan Johnson MD Other Provider Active Start: March 30, 2024 Dr. Efren Kay MD Other Provider Active Star t: March 30, 2024 Dr. Von Zambrano DO Other Provider Active Start : March 30, 2024 Dr. Felix Morales MD Other Provider Active Sta rt: March 30, 2024 Dr. Gualberto Gallego MD Other Provider Active St art: March 30, 2024 Dr. Olman Moon MD Other Provider Active S tart: March 30, 2024 Dr. Khushi Valera MD Other Provider Active Start: March 30, 2024 Dr. Darrius Bowman MD Other Provider Active Start : March 30, 2024 Dr. Bert Pack MD Other Provider Active Start: March 30, 2024 Dr. Andres Gonsalves MD Other Provider Active Start : March 30, 2024 Dr. Farnaz Mariscal MD Other Provider Active Star t: March 30, 2024 Dr. Patsy Benavides MD Other Provider Active Sta rt: March 30, 2024 Dr. Edwina Rodney MD Other Provider Active Sta rt: March 30, 2024 Dr. Nestor Dominguez MD Other Provider Active Star t: March 30, 2024 Dr. Miguelito Mckee MD Other Provider Active St art: March 30, 2024 Dr. Larry Murcia MD Other Provider Active Star t: March 30, 2024 Dr. Gilberto Moarles , Other Provider Active St art: March 30, 2024 Dr. Jose Lujan MD Other Provider Active Start: March 30, 2024 Dr. Loretta Lund MD Other Provider Active St art: March 30, 2024 Dr. Ryland Muhammad , Other Provider Active Start: March 30, 2024 Dr. José Miguel Albright MD Other Provider Active Star t: March 30, 2024 Dr. Aiden Rankin MD Other Provider Active Sta rt: March 30, 2024 Team Status: Active Member Role Status Dates Dr. Xavi Fortune MD Primary Care Provider Acti ve Start: March 30, 2024 Dr. Canelo Heredia DO Emergency Provider Active Start : March 30, 2024 Dr. Felix Greenfield DO Admit Provider Active Start: March 30, 2024 Dr. Felix Greenfield DO Other Provider Active Start: March 30, 2024 Dr. Jordan Ortega MD Attending Provider Active Start: March 30, 2024 Dr. Jordan Ortega MD Other Provider Active Start: March 30, 2024 Dr. Liz Alvarenga MD Other Provider Active St art: March 30, 2024 Dr. Seferino Byrd DO Other Provider Active S tart: March 30, 2024 Dr. Ricci Kruse MD Other Provider Active Start: March 30, 2024 Dr. Dawit Colindres MD Other Provider Active Start: March 30, 2024 Dr. Ivan Johnson MD Other Provider Active Start: March 30, 2024 Dr. Efren Kay MD Other Provider Active Star t: March 30, 2024 Dr. Von Zambrano DO Other Provider Active Start : March 30, 2024 Dr. Felix Morales MD Other Provider Active Sta rt: March 30, 2024 Dr. Gualberto Gallego MD Other Provider Active St art: March 30, 2024 Dr. Olman Moon MD Other Provider Active S tart: March 30, 2024 Dr. Khushi Valera MD Other Provider Active Start: March 30, 2024 Dr. Darrius Bowman MD Other Provider Active Start : March 30, 2024 Dr. Bert Pack MD Other Provider Active Start: March 30, 2024 Dr. Andres Gonsalves MD Other Provider Active Start : March 30, 2024 Dr. Farnaz Mariscal MD Other Provider Active Star t: March 30, 2024 Dr. Patsy Benavides MD Other Provider Active Sta rt: March 30, 2024 Dr. Edwina Rodney MD Other Provider Active Sta rt: March 30, 2024 Dr. Nestor Dominguez MD Other Provider Active Star t: March 30, 2024 Dr. Miguelito Mckee MD Other Provider Active St art: March 30, 2024 Dr. Larry Murcia MD Other Provider Active Star t: March 30, 2024 Dr. Gilberto Morales , Other Provider Active St art: March 30, 2024 Dr. Jose Lujan MD Other Provider Active Start: March 30, 2024 Dr. Loretta Lund MD Other Provider Active St art: March 30, 2024 Dr. Ryland Muhammad DO Other Provider Active Start: March 30, 2024 Dr. José Miguel Albright MD Other Provider Active Star t: March 30, 2024 Dr. Aiden Rankin MD Other Provider Active Sta rt: March 30, 2024 Team Status: Active Member Role Status Dates Dr. Xavi Fortune MD Primary Care Provider Acti ve Start: March 30, 2024 Dr. Canleo Heredia DO Emergency Provider Active Start : March 30, 2024 Dr. Felix Greenfield DO Admit Provider Active Start: March 30, 2024 Dr. Felix Greenfield DO Other Provider Active Start: March 30, 2024 Dr. Jordan Ortega MD Other Provider Active Start: March 30, 2024 Dr. Liz Alvarenga MD Referring Provider Active Start: March 30, 2024 Dr. Liz Alvarenga MD Other Provider Active St art: March 30, 2024 Dr. Seferino Byrd , Other Provider Active S tart: March 30, 2024 Dr. Ricci Kruse MD Other Provider Active Start: March 30, 2024 Dr. Dawit Colindres MD Other Provider Active Start: March 30, 2024 Dr. Ivan Johnson MD Other Provider Active Start: March 30, 2024 Dr. Efren Kay MD Other Provider Active Star t: March 30, 2024 Dr. Von Zambrano , Attending Provider Active S tart: March 30, 2024 Dr. Von Zambrano , Other Provider Active Start : March 30, 2024 Dr. Felix Morales MD Other Provider Active Sta rt: March 30, 2024 Dr. Gualberto Gallego MD Other Provider Active St art: March 30, 2024 Dr. Olman Moon MD Other Provider Active S tart: March 30, 2024 Dr. Khushi Valera MD Other Provider Active Start: March 30, 2024 Dr. Darrius Bowman MD Other Provider Active Start : March 30, 2024 Dr. Bert Pack MD Other Provider Active Start: March 30, 2024 Dr. Andres Gonsalves MD Other Provider Active Start : March 30, 2024 Dr. Farnaz Mariscal MD Other Provider Active Star t: March 30, 2024 Dr. Patsy Benavides MD Other Provider Active Sta rt: March 30, 2024 Dr. Edwina Rodney MD Other Provider Active Sta rt: March 30, 2024 Dr. Nestor Dominguez MD Other Provider Active Star t: March 30, 2024 Dr. Miguelito Mckee MD Other Provider Active St art: March 30, 2024 Dr. Larry Murcia MD Other Provider Active Star t: March 30, 2024 Dr. Gilberto Morales , Other Provider Active St art: March 30, 2024 Dr. Jose Lujan MD Other Provider Active Start: March 30, 2024 Dr. Loretta Lund MD Other Provider Active St art: March 30, 2024 Dr. Ryland Muhammad DO Other Provider Active Start: March 30, 2024 Dr. José Miguel Albright MD Other Provider Active Star t: March 30, 2024 Dr. Aiden Rankin MD Other Provider Active Sta rt: March 30, 2024 Team Status: Active Member Role Status Dates Dr. Xavi Fortune MD Primary Care Provider Acti ve Start: March 31, 2024 Dr. Canelo Heredia DO Emergency Provider Active Start : March 31, 2024 Dr. Felix Greenfield DO Admit Provider Active Start: March 31, 2024 Dr. Felix Greenfield DO Other Provider Active Start: March 31, 2024 Dr. Jordan Ortega MD Other Provider Active Start: March 31, 2024 Dr. Liz Alvarenga MD Attending Provider Active Start: March 31, 2024 Dr. Liz Alvarenga MD Other Provider Active St art: March 31, 2024 Dr. Seferino Byrd , Other Provider Active S tart: March 31, 2024 Dr. Ricci Kruse MD Other Provider Active Start: March 31, 2024 Dr. Dawit Colindres MD Other Provider Active Start: March 31, 2024 Dr. Ivan Johnson MD Other Provider Active Start: March 31, 2024 Dr. Efren Kay MD Other Provider Active Star t: March 31, 2024 Dr. Von Zambrano , Other Provider Active Start : March 31, 2024 Dr. Felix Morales MD Other Provider Active Sta rt: March 31, 2024 Dr. Gualberto Gallego MD Other Provider Active St art: March 31, 2024 Dr. Olman Moon MD Other Provider Active S tart: March 31, 2024 Dr. Khushi Valera MD Other Provider Active Start: March 31, 2024 Dr. Darrius Bowman MD Other Provider Active Start : March 31, 2024 Dr. Bert Pack MD Other Provider Active Start: March 31, 2024 Dr. Andres Gonsalves MD Other Provider Active Start : March 31, 2024 Dr. Farnaz Mariscal MD Other Provider Active Star t: March 31, 2024 Dr. Patsy Benavides MD Other Provider Active Sta rt: March 31, 2024 Dr. Edwina Rodney MD Other Provider Active Sta rt: March 31, 2024 Dr. Nestor Dominguez MD Other Provider Active Star t: March 31, 2024 Dr. Miguelito Mckee MD Other Provider Active St art: March 31, 2024 Dr. Larry Murcia MD Other Provider Active Star t: March 31, 2024 Dr. Gilberto Morales DO Other Provider Active St art: March 31, 2024 Dr. Jose Lujan MD Other Provider Active Start: March 31, 2024 Dr. Loretta Lund MD Other Provider Active St art: March 31, 2024 Dr. Ryland Muhammad , Other Provider Active Start: March 31, 2024 Dr. José Miguel Albright MD Other Provider Active Star t: March 31, 2024 Dr. Aiden Rankin MD Other Provider Active Sta rt: March 31, 2024 Team Status: Active Member Role Status Dates Dr. Xavi Fortune MD Primary Care Provider Acti ve Start: March 31, 2024 Dr. Canelo Heredia DO Emergency Provider Active Start : March 31, 2024 Dr. Felix Greenfield DO Admit Provider Active Start: March 31, 2024 Dr. Felix Greenfield DO Other Provider Active Start: March 31, 2024 Dr. Jordan Ortega MD Attending Provider Active Start: March 31, 2024 Dr. Jordan Ortega MD Other Provider Active Start: March 31, 2024 Dr. Liz Alvarenga MD Other Provider Active St art: March 31, 2024 Dr. Seferino Byrd DO Other Provider Active S tart: March 31, 2024 Dr. Ricci Kruse MD Other Provider Active Start: March 31, 2024 Dr. Dawit Colindres MD Other Provider Active Start: March 31, 2024 Dr. Ivan Johnson MD Other Provider Active Start: March 31, 2024 Dr. Efren Kay MD Other Provider Active Star t: March 31, 2024 Dr. Von Zambrano DO Other Provider Active Start : March 31, 2024 Dr. Felix Morales MD Other Provider Active Sta rt: March 31, 2024 Dr. Gualberto Gallego MD Other Provider Active St art: March 31, 2024 Dr. Olman Moon MD Other Provider Active S tart: March 31, 2024 Dr. Khushi Valera MD Other Provider Active Start: March 31, 2024 Dr. Darrius Bowman MD Other Provider Active Start : March 31, 2024 Dr. Bert Pack MD Other Provider Active Start: March 31, 2024 Dr. Andres Gonsalves MD Other Provider Active Start : March 31, 2024 Dr. Farnaz Mariscal MD Other Provider Active Star t: March 31, 2024 Dr. Patsy Benavides MD Other Provider Active Sta rt: March 31, 2024 Dr. Edwina Rodney MD Other Provider Active Sta rt: March 31, 2024 Dr. Nestor Dominguez MD Other Provider Active Star t: March 31, 2024 Dr. Miguelito Mckee MD Other Provider Active St art: March 31, 2024 Dr. Larry Murcia MD Other Provider Active Star t: March 31, 2024 Dr. Gilberto Morales , DO Other Provider Active St art: March 31, 2024 Dr. Jose Lujan MD Other Provider Active Start: March 31, 2024 Dr. Loretta Lund MD Other Provider Active St art: March 31, 2024 Dr. Ryland Muhammad , Other Provider Active Start: March 31, 2024 Dr. José Miguel Albright MD Other Provider Active Star t: March 31, 2024 Dr. Aiden Rankin MD Other Provider Active Sta rt: March 31, 2024 Team Status: Active Member Role Status Dates Dr. Xavi Fortune MD Primary Care Provider Acti ve Start: April 01, 2024 Dr. Canelo Heredia DO Emergency Provider Active Start : April 01, 2024 Dr. Felix Greenfield DO Admit Provider Active Start: April 01, 2024 Dr. Felix Greenfield DO Other Provider Active Start: April 01, 2024 Dr. Jordan Ortega MD Attending Provider Active Start: April 01, 2024 Dr. Jordan Ortega MD Other Provider Active Start: April 01, 2024 Dr. Liz Alvarenga MD Other Provider Active St art: April 01, 2024 Dr. Seferino Byrd , Other Provider Active S tart: April 01, 2024 Dr. Ricci Kruse MD Other Provider Active Start: April 01, 2024 Team Status: Active Member Role Status Dates Dr. Xavi Fortune MD Primary Care Provider Acti ve Start: April 01, 2024 Dr. Canelo Heredia DO Emergency Provider Active Start : April 01, 2024 Dr. Felix Greenfield DO Admit Provider Active Start: April 01, 2024 Dr. Felix Greenfield DO Other Provider Active Start: April 01, 2024 Dr. Jordan Ortega MD Other Provider Active Start: April 01, 2024 Dr. Liz Alvarenga MD Attending Provider Active Start: April 01, 2024 Dr. Liz Alvarenga MD Other Provider Active St art: April 01, 2024 Dr. Seferino Byrd , Other Provider Active S tart: April 01, 2024 Dr. Ricci Kruse MD Other Provider Active Start: April 01, 2024 Team Status: Active Member Role Status Dates Dr. Xavi Fortune MD Primary Care Provider Acti ve Start: April 02, 2024 Dr. Canelo Heredia , DO Emergency Provider Active Start : April 02, 2024 Dr. Felix Greenfield , DO Admit Provider Active Start: April 02, 2024 Dr. Felix Greenfield , DO Other Provider Active Start: April 02, 2024 Dr. Jordan Ortega MD Attending Provider Active Start: April 02, 2024 Dr. Jordan Ortega MD Other Provider Active Start: April 02, 2024 Dr. Liz Alvarenga MD Other Provider Active St art: April 02, 2024 Dr. Seferino Byrd , DO Other Provider Active S tart: April 02, 2024 Dr. Ricci Kruse MD Other Provider Active Start: April 02, 2024 Team Status: Active Member Role Status Dates Dr. Xavi Fortune MD Primary Care Provider Acti ve Start: April 02, 2024 Dr. Canelo Heredia DO Emergency Provider Active Start : April 02, 2024 Dr. Felix Greenfield , Admit Provider Active Start: April 02, 2024 Dr. Felix Greenfield DO Other Provider Active Start: April 02, 2024 Dr. Jordan Ortega MD Other Provider Active Start: April 02, 2024 Dr. Liz Alvarenga MD Attending Provider Active Start: April 02, 2024 Dr. Liz Alvarenga MD Other Provider Active St art: April 02, 2024 Dr. Seferino Byrd , Other Provider Active S tart: April 02, 2024 Dr. Ricci Kruse MD Other Provider Active Start: April 02, 2024 Team Status: Active Member Role Status Dates Dr. Xavi Fortune MD Primary Care Provider Acti ve Start: April 03, 2024 Dr. Canelo Heredia DO Emergency Provider Active Start : April 03, 2024 Dr. Felix Greenfield , DO Admit Provider Active Start: April 03, 2024 Dr. Felix Greenfield DO Other Provider Active Start: April 03, 2024 Dr. Jordan Ortega MD Other Provider Active Start: April 03, 2024 Dr. Liz Alvarenga MD Other Provider Active St art: April 03, 2024 Dr. Seferino Byrd , DO Other Provider Active S tart: April 03, 2024 Dr. Ricci Kruse MD Other Provider Active Start: April 03, 2024 Dr. Francis Ashraf MD Attending Provider Active Start: April 03, 2024 Team Status: Active Member Role Status Dates Dr. Xavi Fortune MD Primary Care Provider Acti ve Start: April 03, 2024 Dr. Canelo Heredia DO Emergency Provider Active Start : April 03, 2024 Dr. Felix Greenfield , Admit Provider Active Start: April 03, 2024 Dr. Felix Greenfield DO Other Provider Active Start: April 03, 2024 Dr. Jordan Ortega MD Other Provider Active Start: April 03, 2024 Dr. Liz Alvarenga MD Attending Provider Active Start: April 03, 2024 Dr. Liz Alvarenga MD Other Provider Active St art: April 03, 2024 Dr. Seferino Byrd DO Other Provider Active S tart: April 03, 2024 Dr. Ricci Kruse MD Other Provider Active Start: April 03, 2024 Team Status: Active Member Role Status Dates Dr. Xavi Fortune MD Primary Care Provider Acti ve Start: April 04, 2024 Dr. Canelo Heredia DO Emergency Provider Active Start : April 04, 2024 Dr. Felix Greenfield DO Admit Provider Active Start: April 04, 2024 Dr. Felix Greenfield DO Other Provider Active Start: April 04, 2024 Dr. Jordan Ortega MD Other Provider Active Start: April 04, 2024 Dr. Liz Alvarenga MD Other Provider Active St art: April 04, 2024 Dr. Seferino Byrd DO Other Provider Active S tart: April 04, 2024 Dr. Ricci Kruse MD Other Provider Active Start: April 04, 2024 Dr. Francis Ashraf MD Attending Provider Active Start: April 04, 2024 Team Status: Active Member Role Status Dates Dr. Xavi Fortune MD Primary Care Provider Acti ve Start: April 04, 2024 Dr. Canelo Heredia DO Emergency Provider Active Start : April 04, 2024 Dr. Felix Greenfield DO Admit Provider Active Start: April 04, 2024 Dr. Felix Greenfield , DO Other Provider Active Start: April 04, 2024 Dr. Jordan Ortega MD Other Provider Active Start: April 04, 2024 Dr. Liz Alvarenga MD Attending Provider Active Start: April 04, 2024 Dr. Liz Alvarenga MD Other Provider Active St art: April 04, 2024 Dr. Seferino Byrd , DO Other Provider Active S tart: April 04, 2024 Dr. Ricci Kruse MD Other Provider Active Start: April 04, 2024 Team Status: Active Member Role Status Dates Dr. aXvi Fortune MD Primary Care Provider Acti ve Start: April 05, 2024 Dr. Canelo Heredia , DO Emergency Provider Active Start : April 05, 2024 Dr. Felix Greenfield , DO Admit Provider Active Start: April 05, 2024 Dr. Felix Greenfield , DO Other Provider Active Start: April 05, 2024 Dr. Jordan Ortega MD Other Provider Active Start: April 05, 2024 Dr. Seferino Byrd , DO Other Provider Active S tart: April 05, 2024 Dr. Ricci Kruse MD Other Provider Active Start: April 05, 2024 Dr. Neil Augustin , DO Other Provider Active Star t: April 05, 2024 Dr. Liz Alvarenga MD Other Provider Active St art: April 05, 2024 Tiffanie EASLEY PA-C Attending Provider Active Start: April 05, 2024 Team Status: Active Member Role Status Dates Dr. Xavi Fortune MD Primary Care Provider Acti ve Start: April 05, 2024 Dr. Canelo Heredia , DO Emergency Provider Active Start : April 05, 2024 Dr. Felix Greenfield , DO Admit Provider Active Start: April 05, 2024 Dr. Felix Greenfield , DO Other Provider Active Start: April 05, 2024 Dr. Jordan Ortega MD Other Provider Active Start: April 05, 2024 Dr. Seferino Byrd , DO Other Provider Active S tart: April 05, 2024 Dr. Ricci Kruse MD Other Provider Active Start: April 05, 2024 Dr. Neil Augustin , DO Attending Provider Active Start: April 05, 2024 Dr. Neil Augustin , DO Other Provider Active Star t: April 05, 2024 Dr. Liz Alvarenga MD Other Provider Active St art: April 05, 2024 Team Status: Active Member Role Status Dates Dr. Xavi Fortune MD Primary Care Provider Acti ve Start: April 06, 2024 Dr. Canelo Heredia DO Emergency Provider Active Start : April 06, 2024 Dr. Felix Greenfield , DO Admit Provider Active Start: April 06, 2024 Dr. Felix Greenfield , DO Other Provider Active Start: April 06, 2024 Dr. Jordan Ortega MD Other Provider Active Start: April 06, 2024 Dr. Seferino Byrd , DO Other Provider Active S tart: April 06, 2024 Dr. Ricci Kruse MD Other Provider Active Start: April 06, 2024 Dr. Neil Augustin , DO Other Provider Active Star t: April 06, 2024 Dr. Liz Alvarenga MD Other Provider Active St art: April 06, 2024 Tiffanie EASLEY PAMichaela Attending Provider Active Start: April 06, 2024 Team Status: Active Member Role Status Dates Dr. Xavi Fortune MD Primary Care Provider Acti ve Start: April 06, 2024 Dr. Canelo Heredia , DO Emergency Provider Active Start : April 06, 2024 Dr. Felix Greenfield , DO Admit Provider Active Start: April 06, 2024 Dr. Felix Greenfield , DO Other Provider Active Start: April 06, 2024 Dr. Jordan Ortega MD Other Provider Active Start: April 06, 2024 Dr. Seferino Byrd , DO Other Provider Active S tart: April 06, 2024 Dr. Ricci Kruse MD Other Provider Active Start: April 06, 2024 Dr. Neil Augustin , Attending Provider Active Start: April 06, 2024 Dr. Neil Augustin , DO Other Provider Active Star t: April 06, 2024 Dr. Liz Alvarenga MD Other Provider Active St art: April 06, 2024 Team Status: Active Member Role Status Dates Dr. Xavi Fortune MD Primary Care Provider Acti ve Start: April 07, 2024 Dr. Canelo Heredia , DO Emergency Provider Active Start : April 07, 2024 Dr. Felix Greenfield , DO Admit Provider Active Start: April 07, 2024 Dr. Felix Greenfield , DO Other Provider Active Start: April 07, 2024 Dr. Jordan Ortega MD Other Provider Active Start: April 07, 2024 Dr. Seferino Byrd DO Other Provider Active S tart: April 07, 2024 Dr. Ricci Kruse MD Other Provider Active Start: April 07, 2024 Dr. Neil Augustin DO Attending Provider Active Start: April 07, 2024 Dr. Neil Augustin , DO Other Provider Active Star t: April 07, 2024 Dr. Liz Alvarenga MD Other Provider Active St art: April 07, 2024 Team Status: Active Member Role Status Dates Dr. Xavi Fortune MD Primary Care Provider Acti ve Start: April 07, 2024 Dr. Canelo Heredia DO Emergency Provider Active Start : April 07, 2024 Dr. Felix Greenfield , DO Admit Provider Active Start: April 07, 2024 Dr. Felix Greenfield DO Other Provider Active Start: April 07, 2024 Dr. Jordan Ortega MD Other Provider Active Start: April 07, 2024 Dr. Seferino Byrd , DO Other Provider Active S tart: April 07, 2024 Dr. Ricci Kruse MD Other Provider Active Start: April 07, 2024 Dr. Neil Augustin DO Other Provider Active Star t: April 07, 2024 Dr. Liz Alvarenga MD Other Provider Active St art: April 07, 2024 Tiffanie EASLEY PADavidC Attending Provider Active Start: April 07, 2024 Team Status: Active Member Role Status Dates Dr. Xavi Fortune MD Primary Care Provider Acti ve Start: April 08, 2024 Dr. Canelo Heredia , DO Emergency Provider Active Start : April 08, 2024 Dr. Felix Greenfield DO Admit Provider Active Start: April 08, 2024 Dr. Felix Greenfield DO Other Provider Active Start: April 08, 2024 Dr. Jordan Ortega MD Other Provider Active Start: April 08, 2024 Dr. Seferino Byrd , DO Other Provider Active S tart: April 08, 2024 Dr. Ricci Kruse MD Other Provider Active Start: April 08, 2024 Dr. Neil Augustin DO Attending Provider Active Start: April 08, 2024 Dr. Neil Augustin , DO Other Provider Active Star t: April 08, 2024 Dr. Liz Alvarenga MD Other Provider Active St art: April 08, 2024 Team Status: Active Member Role Status Dates Dr. Xavi Fortune MD Primary Care Provider Acti ve Start: April 08, 2024 Dr. Canelo Heredia , Emergency Provider Active Start : April 08, 2024 Dr. Felix Greenfield , DO Admit Provider Active Start: April 08, 2024 Dr. Felix Greenfield , DO Other Provider Active Start: April 08, 2024 Dr. Jordan Ortega MD Other Provider Active Start: April 08, 2024 Dr. Seferino Byrd , Other Provider Active S tart: April 08, 2024 Dr. Ricci Kruse MD Other Provider Active Start: April 08, 2024 Dr. Neil Augustin DO Other Provider Active Star t: April 08, 2024 Dr. Liz Alvarenga MD Other Provider Active St art: April 08, 2024 Dr. Suellen Billingsley MD Attending Provider Active Start: April 08, 2024 Team Status: Inactive Member Role Status Dates Dr. Xavi Fortune MD Primary Care Provider Acti ve Start: April 09, 2024 End: April 10, 2024 Dr. Ryan Randhawa , Emergency Provider Active Start: April 09, 2024 End: April 10, 2024 Dr. Felix Greenfield DO Admit Provider Active Start: April 09, 2024 End: April 10, 2024 Dr. Felix Greenfield DO Other Provider Active Start: April 09, 2024 End: April 10, 2024 Dr. Marya Zamarripa MD Other Provider Active Start: April 09, 2024 End: April 10, 2024 Dr. Neil Augustin DO Attending Provider Active Start: April 09, 2024 End: April 10, 2024 Dr. Neil Augustin DO Other Provider Active Star t: April 09, 2024 Team Status: Active Member Role Status Dates Dr. Xavi Fortune MD Primary Care Provider Acti ve Start: April 09, 2024 Dr. Ryan Randhawa DO Emergency Provider Active Start: April 09, 2024 Dr. Felix Greenfield DO Admit Provider Active Start: April 09, 2024 Dr. Felix Greenfield DO Other Provider Active Start: April 09, 2024 Dr. Marya Zamarripa MD Attending Provider Activ e Start: April 09, 2024 Dr. Marya Zamarripa MD Other Provider Active Start: April 09, 2024 Dr. Neil Augustin DO Other Provider Active Star t: April 09, 2024 Team Status: Active Member Role Status Dates Dr. Xavi Fortune MD Primary Care Provider Acti ve Start: April 10, 2024 Dr. Ryan Randhawa DO Emergency Provider Active Start: April 10, 2024 Dr. Felix Greenfield DO Admit Provider Active Start: April 10, 2024 Dr. Felix Greenfield DO Other Provider Active Start: April 10, 2024 Dr. Marya Zamarripa MD Other Provider Active Start: April 10, 2024 Dr. Neil Augustin DO Attending Provider Active Start: April 10, 2024 Dr. Neil Augustin DO Other Provider Active Star t: April 10, 2024 Team Status: Inactive Member Role Status Dates Dr. Xavi Fortune MD Primary Care Provider Acti ve Start: May 03, 2024 End: May 03, 2024 Dr. Xavi Fortune MD Referring Provider Active Start: May 03, 2024 End: May 03, 2024 Mikayla Ventura NP, LIQUOR DEPARTMENT MANAGER-C Attending Provider Active Start: May 03, 2024 End: May 03, 2024 Team Status: Inactive Member Role Status Dates Dr. Xavi Fortune MD Primary Care Provider Acti ve Start: May 03, 2024 End: May 03, 2024 Dr. Ricci Kruse MD Attending Provider Active Start: May 03, 2024 End: May 03, 2024 Dr. Ricci Kruse MD Referring Provider Active Start: May 03, 2024 End: May 03, 2024 Team Status: Inactive Member Role Status Dates Dr. Xavi Fortune MD Primary Care Provider Acti ve Start: May 05, 2024 End: May 06, 2024 Dr. Canelo Heredia DO Attending Provider Active Start : May 05, 2024 End: May 06, 2024 Dr. Canelo Heredia DO Emergency Provider Active Start : May 05, 2024 End: May 06, 2024 Team Status: Inactive Member Role Status Dates Dr. Xavi Fortune MD Primary Care Provider Acti ve Start: May 24, 2024 End: May 24, 2024 Dr. Xavi Fortune MD Referring Provider Active Start: May 24, 2024 End: May 24, 2024 Dr. Walt Turner DO Attending Provider Active Start: May 24, 2024 End: May 24, 2024 Team Status: Inactive Member Role Status Dates Dr. Xavi Fortune MD Primary Care Provider Acti ve Start: May 26, 2024 End: May 26, 2024 Dr. Xavi Fortune MD Referring Provider Active Start: May 26, 2024 End: May 26, 2024 Dr. Francis Asher MD Attending Provider Active Start: May 26, 2024 End: May 26, 2024 Team Status: Inactive Member Role Status Dates Dr. Xavi Fortune MD Primary Care Provider Acti ve Start: May 27, 2024 End: May 27, 2024 Mikayla Ventura LIQUOR DEPARTMENT MANAGER, LIQUOR DEPARTMENT MANAGER-C Attending Provider Active Start: May 27, 2024 End: May 27, 2024 Mikayla Ventura LIQUOR DEPARTMENT MANAGER, LIQUOR DEPARTMENT MANAGER-C Referring Provider Active Start: May 27, 2024 End: May 27, 2024 Team Status: Inactive Member Role Status Dates Dr. Xavi Fortune MD Primary Care Provider Acti ve Start: May 31, 2024 End: May 31, 2024 Dr. Xavi Fortune MD Referring Provider Active Start: May 31, 2024 End: May 31, 2024 Mikayla Ventura LIQUOR DEPARTMENT MANAGER, LIQUOR DEPARTMENT MANAGER-C Attending Provider Active Start: May 31, 2024 End: May 31, 2024 Team Status: Inactive Member Role Status Dates Dr. Xavi Fortune MD Primary Care Provider Acti ve Start: June 01, 2024 End: June 01, 2024 Dr. Xavi Fortune MD Attending Provider Active Start: June 01, 2024 End: June 01, 2024 Dr. Xavi Fortune MD Referring Provider Active Start: June 01, 2024 End: June 01, 2024 Team Status: Inactive Member Role Status Dates Dr. Xavi Fortune MD Primary Care Provider Acti ve Start: June 10, 2024 End: June 10, 2024 Dr. Xavi Fortune MD Attending Provider Active Start: June 10, 2024 End: June 10, 2024 Dr. Xavi Fortune MD Referring Provider Active Start: June 10, 2024 End: June 10, 2024 Team Status: Inactive Member Role Status Dates Dr. Xavi Fortune MD Primary Care Provider Acti ve Start: June 30, 2024 End: June 30, 2024 Dr. Xavi Fortune MD Attending Provider Active Start: June 30, 2024 End: June 30, 2024 Dr. Xavi Fortune MD Referring Provider Active Start: June 30, 2024 End: June 30, 2024 Team Status: Active Member Role Status Dates Dr. Xavi Fortune MD Primary Care Provider Acti ve Start: July 10, 2024 Dr. Andres Juarez DO Emergency Provider Active Start: July 10, 2024 Dr. Jonah Aguilar MD Admit Provider Active St art: July 10, 2024 Dr. Jonah Aguilar MD Attending Provider Active Start: July 10, 2024 Team Status: Active Member Role Status Dates Dr. Xavi Fortune MD Primary Care Provider Acti ve Start: July 10, 2024 Dr. Andres Juarez DO Emergency Provider Active Start: July 10, 2024 Dr. Jonah Aguilar MD Admit Provider Active St art: July 10, 2024 Dr. Jonah Aguilar MD Attending Provider Active Start: July 10, 2024 Dr. Jonah Aguilar MD Other Provider Active St art: July 10, 2024 Team Status: Inactive Member Role Status Dates Dr. Xavi Fortune MD Primary Care Provider Acti ve Start: July 10, 2024 End: July 10, 2024 Dr. Andres Juarez DO Emergency Provider Active Start: July 10, 2024 End: July 10, 2024 Dr. Jonah Aguilar MD Admit Provider Active St art: July 10, 2024 End: July 10, 2024 Dr. Jonah Aguilar MD Other Provider Active St art: July 10, 2024 End: July 10, 2024 Dr. Liz Alvarenga MD Attending Provider Active Start: July 10, 2024 End: July 10, 2024 Team Status: Active Member Role/Relationship Status Dates Dr. Xavi Fortune MD Primary Care Provider Acti ve Team Status: Inactive Member Role/Relationship Status Dates Dr. Xavi Fortune MD Primary Care Provider Acti ve Start: May 03, 2024 End: May 03, 2024 Dr. Xavi Fortune MD Referring Provider Active Start: May 03, 2024 End: May 03, 2024 Mikayla Ventura NP, LIQUOR DEPARTMENT MANAGER-C Attending Provider Active Start: May 03, 2024 End: May 03, 2024 Team Status: Inactive Member Role/Relationship Status Dates Dr. Xavi Fortune MD Primary Care Provider Acti ve Start: May 03, 2024 End: May 03, 2024 Dr. Ricci Kruse MD Attending Provider Active Start: May 03, 2024 End: May 03, 2024 Dr. Ricci Kruse MD Referring Provider Active Start: May 03, 2024 End: May 03, 2024 Team Status: Inactive Member Role/Relationship Status Dates Dr. Xavi Fortune MD Primary Care Provider Acti ve Start: May 05, 2024 End: May 06, 2024 Dr. Canelo Heredia DO Attending Provider Active Start : May 05, 2024 End: May 06, 2024 Dr. Canelo Heredia DO Emergency Provider Active Start : May 05, 2024 End: May 06, 2024 Team Status: Inactive Member Role/Relationship Status Dates Dr. Xavi Fortune MD Primary Care Provider Acti ve Start: May 24, 2024 End: May 24, 2024 Dr. Xavi Fortune MD Referring Provider Active Start: May 24, 2024 End: May 24, 2024 Dr. Walt Turner DO Attending Provider Active Start: May 24, 2024 End: May 24, 2024 Team Status: Inactive Member Role/Relationship Status Dates Dr. Xavi Fortune MD Primary Care Provider Acti ve Start: May 26, 2024 End: May 26, 2024 Dr. Xavi Fortune MD Referring Provider Active Start: May 26, 2024 End: May 26, 2024 Dr. Francis Asher MD Attending Provider Active Start: May 26, 2024 End: May 26, 2024 Team Status: Inactive Member Role/Relationship Status Dates Dr. Xavi Fortune MD Primary Care Provider Acti ve Start: May 27, 2024 End: May 27, 2024 Mikayla Ventura LIQUOR DEPARTMENT MANAGER, LIQUOR DEPARTMENT MANAGER-C Attending Provider Active Start: May 27, 2024 End: May 27, 2024 Mikayla Ventura LIQUOR DEPARTMENT MANAGER, LIQUOR DEPARTMENT MANAGER-C Referring Provider Active Start: May 27, 2024 End: May 27, 2024 Team Status: Inactive Member Role/Relationship Status Dates Dr. Xavi Fortune MD Primary Care Provider Acti ve Start: May 31, 2024 End: May 31, 2024 Dr. Xavi Fortune MD Referring Provider Active Start: May 31, 2024 End: May 31, 2024 Mikayla Ventura LIQUOR DEPARTMENT MANAGER, LIQUOR DEPARTMENT MANAGER-C Attending Provider Active Start: May 31, 2024 End: May 31, 2024 Team Status: Inactive Member Role/Relationship Status Dates Dr. Xavi Fortune MD Primary Care Provider Acti ve Start: June 01, 2024 End: June 01, 2024 Dr. Xavi Fortune MD Attending Provider Active Start: June 01, 2024 End: June 01, 2024 Dr. Xavi Fortune MD Referring Provider Active Start: June 01, 2024 End: June 01, 2024 Team Status: Inactive Member Role/Relationship Status Dates Dr. Xavi Fortune MD Primary Care Provider Acti ve Start: June 10, 2024 End: June 10, 2024 Dr. Xavi Fortune MD Attending Provider Active Start: June 10, 2024 End: June 10, 2024 Dr. Xavi Fortune MD Referring Provider Active Start: June 10, 2024 End: June 10, 2024 Team Status: Inactive Member Role/Relationship Status Dates Dr. Xavi Fortune MD Primary Care Provider Acti ve Start: June 30, 2024 End: June 30, 2024 Dr. Xavi Fortune MD Attending Provider Active Start: June 30, 2024 End: June 30, 2024 Dr. Xavi Fortune MD Referring Provider Active Start: June 30, 2024 End: June 30, 2024 Team Status: Active Member Role/Relationship Status Dates Dr. Xavi Fortune MD Primary Care Provider Acti ve Start: July 10, 2024 Dr. Andres Juarez DO Emergency Provider Active Start: July 10, 2024 Dr. Jonah Aguilar MD Admit Provider Active St art: July 10, 2024 Dr. Jonah Aguilar MD Attending Provider Active Start: July 10, 2024 Dr. Jonah Aguilar MD Other Provider Active St art: July 10, 2024 Team Status: Inactive Member Role/Relationship Status Dates Dr. Xavi Fortune MD Primary Care Provider Acti ve Start: July 10, 2024 End: July 10, 2024 Dr. Andres Juarez DO Emergency Provider Active Start: July 10, 2024 End: July 10, 2024 Dr. Jonah Aguilar MD Admit Provider Active St art: July 10, 2024 End: July 10, 2024 Dr. Jonah Aguilar MD Other Provider Active St art: July 10, 2024 End: July 10, 2024 Dr. Liz Alvarenga MD Attending Provider Active Start: July 10, 2024 End: July 10, 2024 Team Status: Active Member Role/Relationship Status Dates Dr. Xavi Fortune MD Primary Care Provider Acti ve Start: July 11, 2024 Dr. Andres Juarez DO Emergency Provider Active Start: July 11, 2024 Dr. Jonah Aguilar MD Admit Provider Active St art: July 11, 2024 Dr. Jonah Aguilar MD Other Provider Active St art: July 11, 2024 Dr. Liz Alvarenga MD Attending Provider Active Start: July 11, 2024 Dr. Liz Alvarenga MD Other Provider Active St art: July 11, 2024 Team Status: Inactive Member Role/Relationship Status Dates Dr. Xavi Fortune MD Primary Care Provider Acti ve Start: August 10, 2024 End: August 10, 2024 Dr. Xavi Fortune MD Attending Provider Active Start: August 10, 2024 End: August 10, 2024 Dr. Xavi Fortune MD Referring Provider Active Start: August 10, 2024 End: August 10, 2024 Team Status: Inactive Member Role/Relationship Status Dates Dr. Xavi Fortune MD Primary Care Provider Acti ve Start: August 23, 2024 End: August 23, 2024 Dr. Xavi Fortune MD Referring Provider Active Start: August 23, 2024 End: August 23, 2024 Dr. Walt Turner DO Attending Provider Active Start: August 23, 2024 End: August 23, 2024 Team Status: Inactive Member Role/Relationship Status Dates Dr. Xavi Fortune MD Primary Care Provider Acti ve Start: August 23, 2024 End: August 23, 2024 Dr. Walt Turner DO Attending Provider Active Start: August 23, 2024 End: August 23, 2024 Dr. Walt Turner DO Referring Provider Active Start: August 23, 2024 End: August 23, 2024 Team Status: Inactive Member Role/Relationship Status Dates Dr. Xavi Fortune MD Primary Care Provider Acti ve Start: August 31, 2024 End: August 31, 2024 Dr. Xavi Fortune MD Referring Provider Active Start: August 31, 2024 End: August 31, 2024 Mikayla Ventura LIQUOR DEPARTMENT MANAGER, LIQUOR DEPARTMENT MANAGER-C Attending Provider Active Start: August 31, 2024 End: August 31, 2024 Team Status: Inactive Member Role/Relationship Status Dates Dr. Xavi Fortune MD Primary Care Provider Acti ve Start: May 26, 2024 End: May 26, 2024 Dr. Xavi Fortune MD Referring Provider Active Start: May 26, 2024 End: May 26, 2024 Dr. Francis Asher MD Attending Provider Active Start: May 26, 2024 End: May 26, 2024 Team Status: Inactive Member Role/Relationship Status Dates Dr. Xavi Fortune MD Primary Care Provider Acti ve Start: May 27, 2024 End: May 27, 2024 Mikayla Ventura LIQUOR DEPARTMENT MANAGER, LIQUOR DEPARTMENT MANAGER-C Attending Provider Active Start: May 27, 2024 End: May 27, 2024 Mikayla Ventura LIQUOR DEPARTMENT MANAGER, LIQUOR DEPARTMENT MANAGER-C Referring Provider Active Start: May 27, 2024 End: May 27, 2024 Team Status: Inactive Member Role/Relationship Status Dates Dr. Xavi Fortune MD Primary Care Provider Acti ve Start: May 31, 2024 End: May 31, 2024 Dr. Xavi Fortune MD Referring Provider Active Start: May 31, 2024 End: May 31, 2024 Mikayla Ventura LIQUOR DEPARTMENT MANAGER, LIQUOR DEPARTMENT MANAGER-C Attending Provider Active Start: May 31, 2024 End: May 31, 2024 Team Status: Inactive Member Role/Relationship Status Dates Dr. Xavi Fortune MD Primary Care Provider Acti ve Start: June 01, 2024 End: June 01, 2024 Dr. Xavi Fortune MD Attending Provider Active Start: June 01, 2024 End: June 01, 2024 Dr. Xavi Fortune MD Referring Provider Active Start: June 01, 2024 End: June 01, 2024 Team Status: Inactive Member Role/Relationship Status Dates Dr. Xavi Fortune MD Primary Care Provider Acti ve Start: June 10, 2024 End: June 10, 2024 Dr. Xavi Fortune MD Attending Provider Active Start: June 10, 2024 End: June 10, 2024 Dr. Xavi Fortune MD Referring Provider Active Start: June 10, 2024 End: June 10, 2024 Team Status: Inactive Member Role/Relationship Status Dates Dr. Xavi Fortune MD Primary Care Provider Acti ve Start: June 30, 2024 End: June 30, 2024 Dr. Xavi Fortune MD Attending Provider Active Start: June 30, 2024 End: June 30, 2024 Dr. Xavi Fortune MD Referring Provider Active Start: June 30, 2024 End: June 30, 2024 Team Status: Active Member Role/Relationship Status Dates Dr. Xavi Fortune MD Primary Care Provider Acti ve Start: July 10, 2024 Dr. Andres Juarez DO Emergency Provider Active Start: July 10, 2024 Dr. Jonah Aguilar MD Admit Provider Active St art: July 10, 2024 Dr. Jonah Aguilar MD Attending Provider Active Start: July 10, 2024 Dr. Jonah Aguilar MD Other Provider Active St art: July 10, 2024 Team Status: Inactive Member Role/Relationship Status Dates Dr. Xavi Fortune MD Primary Care Provider Acti ve Start: July 10, 2024 End: July 10, 2024 Dr. Andres Juarez DO Emergency Provider Active Start: July 10, 2024 End: July 10, 2024 Dr. Jonah Aguilar MD Admit Provider Active St art: July 10, 2024 End: July 10, 2024 Dr. Jonah Aguilar MD Other Provider Active St art: July 10, 2024 End: July 10, 2024 Dr. Liz Alvarenga MD Attending Provider Active Start: July 10, 2024 End: July 10, 2024 Team Status: Active Member Role/Relationship Status Dates Dr. Xavi Fortune MD Primary Care Provider Acti ve Start: July 11, 2024 Dr. Andres Juarez DO Emergency Provider Active Start: July 11, 2024 Dr. Jonah Aguilar MD Admit Provider Active St art: July 11, 2024 Dr. Jonah Aguilar MD Other Provider Active St art: July 11, 2024 Dr. Liz Alvarenga MD Attending Provider Active Start: July 11, 2024 Dr. Liz Alvarenga MD Other Provider Active St art: July 11, 2024 Team Status: Inactive Member Role/Relationship Status Dates Dr. Xavi Fortune MD Primary Care Provider Acti ve Start: August 10, 2024 End: August 10, 2024 Dr. Xavi Fortune MD Attending Provider Active Start: August 10, 2024 End: August 10, 2024 Dr. Xavi Fortune MD Referring Provider Active Start: August 10, 2024 End: August 10, 2024 Team Status: Inactive Member Role/Relationship Status Dates Dr. Xavi Fortune MD Primary Care Provider Acti ve Start: August 23, 2024 End: August 23, 2024 Dr. Xavi Fortune MD Referring Provider Active Start: August 23, 2024 End: August 23, 2024 Dr. Walt Turner DO Attending Provider Active Start: August 23, 2024 End: August 23, 2024 Team Status: Inactive Member Role/Relationship Status Dates Dr. Xavi Fortune MD Primary Care Provider Acti ve Start: August 23, 2024 End: August 23, 2024 Dr. Walt Turner DO Attending Provider Active Start: August 23, 2024 End: August 23, 2024 Dr. Walt Turner DO Referring Provider Active Start: August 23, 2024 End: August 23, 2024 Team Status: Inactive Member Role/Relationship Status Dates Dr. Xavi Fortune MD Primary Care Provider Acti ve Start: August 31, 2024 End: August 31, 2024 Dr. Xavi Fortune MD Referring Provider Active Start: August 31, 2024 End: August 31, 2024 Mikayla Ventura LIQUOR DEPARTMENT MANAGER, LIQUOR DEPARTMENT MANAGER-C Attending Provider Active Start: August 31, 2024 End: August 31, 2024 Team Status: Inactive Member Role/Relationship Status Dates Dr. Xavi Fortune MD Primary Care Provider Acti ve Start: September 22, 2024 End: September 22, 2024 Dr. Xavi Fortune MD Referring Provider Active Start: September 22, 2024 End: September 22, 2024 Mikayla Ventura LIQUOR DEPARTMENT MANAGER, LIQUOR DEPARTMENT MANAGER-C Attending Provider Active Start: September 22, 2024 End: September 22, 2024 Team Status: Inactive Member Role/Relationship Status Dates Dr. Xavi Fortune MD Primary Care Provider Acti ve Start: June 30, 2024 End: June 30, 2024 Dr. Xavi Fortune MD Attending Provider Active Start: June 30, 2024 End: June 30, 2024 Dr. Xavi Fortune MD Referring Provider Active Start: June 30, 2024 End: June 30, 2024 Team Status: Active Member Role/Relationship Status Dates Dr. Xavi Fortune MD Primary Care Provider Acti ve Start: July 10, 2024 Dr. Andres Juarez DO Emergency Provider Active Start: July 10, 2024 Dr. Jonah Aguilar MD Admit Provider Active St art: July 10, 2024 Dr. Jonah Aguilar MD Attending Provider Active Start: July 10, 2024 Dr. Jonah Aguilar MD Other Provider Active St art: July 10, 2024 Team Status: Inactive Member Role/Relationship Status Dates Dr. Xavi Fortune MD Primary Care Provider Acti ve Start: July 10, 2024 End: July 10, 2024 Dr. Andres Juarez DO Emergency Provider Active Start: July 10, 2024 End: July 10, 2024 Dr. Jonah Aguilar MD Admit Provider Active St art: July 10, 2024 End: July 10, 2024 Dr. Jonah Aguilar MD Other Provider Active St art: July 10, 2024 End: July 10, 2024 Dr. Liz Alvarenga MD Attending Provider Active Start: July 10, 2024 End: July 10, 2024 Team Status: Active Member Role/Relationship Status Dates Dr. Xavi Fortune MD Primary Care Provider Acti ve Start: July 11, 2024 Dr. Andres Juarez DO Emergency Provider Active Start: July 11, 2024 Dr. Jonah Aguilar MD Admit Provider Active St art: July 11, 2024 Dr. Jonah Aguilar MD Other Provider Active St art: July 11, 2024 Dr. Liz Alvarenga MD Attending Provider Active Start: July 11, 2024 Dr. Liz Alvarenga MD Other Provider Active St art: July 11, 2024 Team Status: Inactive Member Role/Relationship Status Dates Dr. Xavi Fortune MD Primary Care Provider Acti ve Start: August 10, 2024 End: August 10, 2024 Dr. Xavi Fortune MD Attending Provider Active Start: August 10, 2024 End: August 10, 2024 Dr. Xavi Fortune MD Referring Provider Active Start: August 10, 2024 End: August 10, 2024 Team Status: Inactive Member Role/Relationship Status Dates Dr. Xavi Fortune MD Primary Care Provider Acti ve Start: August 23, 2024 End: August 23, 2024 Dr. Xavi Fortune MD Referring Provider Active Start: August 23, 2024 End: August 23, 2024 Dr. Walt Turner DO Attending Provider Active Start: August 23, 2024 End: August 23, 2024 Team Status: Inactive Member Role/Relationship Status Dates Dr. Xavi Fortune MD Primary Care Provider Acti ve Start: August 23, 2024 End: August 23, 2024 Dr. Walt Turnre DO Attending Provider Active Start: August 23, 2024 End: August 23, 2024 Dr. Walt Turner DO Referring Provider Active Start: August 23, 2024 End: August 23, 2024 Team Status: Inactive Member Role/Relationship Status Dates Dr. Xavi Fortune MD Primary Care Provider Acti ve Start: August 31, 2024 End: August 31, 2024 Dr. Xavi Fortune MD Referring Provider Active Start: August 31, 2024 End: August 31, 2024 Mikayla Ventura LIQUOR DEPARTMENT MANAGER, LIQUOR DEPARTMENT MANAGER-C Attending Provider Active Start: August 31, 2024 End: August 31, 2024 Team Status: Inactive Member Role/Relationship Status Dates Dr. Xavi Fortune MD Primary Care Provider Acti ve Start: September 22, 2024 End: September 22, 2024 Dr. Xavi Fortune MD Referring Provider Active Start: September 22, 2024 End: September 22, 2024 Mikayla Ventura LIQUOR DEPARTMENT MANAGER, LIQUOR DEPARTMENT MANAGER-C Attending Provider Active Start: September 22, 2024 End: September 22, 2024 Team Status: Inactive Member Role/Relationship Status Dates Dr. Xavi Fortune MD Primary Care Provider Acti ve Start: October 12, 2024 End: October 13, 2024 Dr. Cindy Aguila DO Emergency Provider Active Start: October 12, 2024 End: October 13, 2024 Team Status: Active Member Role/Relationship Status Dates Dr. Xavi Fortune MD Primary care physician Act jai Team Status: Inactive Member Role/Relationship Status Dates Dr. Xavi Fortune MD Primary care physician Act jai Start: August 10, 2024 End: August 10, 2024 Dr. Xavi Fortune MD Attending physician Active Start: August 10, 2024 End: August 10, 2024 Dr. Xavi Fortune MD Referring Provider Active Start: August 10, 2024 End: August 10, 2024 Team Status: Inactive Member Role/Relationship Status Dates Dr. Xavi Fortune MD Primary care physician Act jai Start: August 23, 2024 End: August 23, 2024 Dr. Xavi Fortune MD Referring Provider Active Start: August 23, 2024 End: August 23, 2024 Dr. Walt Turner DO Attending physician Active Start: August 23, 2024 End: August 23, 2024 Team Status: Inactive Member Role/Relationship Status Dates Dr. Xavi Fortune MD Primary care physician Act jai Start: August 23, 2024 End: August 23, 2024 Dr. Walt Turner DO Attending physician Active Start: August 23, 2024 End: August 23, 2024 Dr. Walt Turner DO Referring Provider Active Start: August 23, 2024 End: August 23, 2024 Team Status: Inactive Member Role/Relationship Status Dates Dr. Xavi Fortune MD Primary care physician Act jai Start: August 31, 2024 End: August 31, 2024 Dr. Xavi Fortune MD Referring Provider Active Start: August 31, 2024 End: August 31, 2024 Mikayla Ventura LIQUOR DEPARTMENT MANAGER, LIQUOR DEPARTMENT MANAGER-C Attending physician Active Start: August 31, 2024 End: August 31, 2024 Team Status: Inactive Member Role/Relationship Status Dates Dr. Xavi Fortune MD Primary care physician Act jai Start: September 22, 2024 End: September 22, 2024 Dr. Xavi Fortune MD Referring Provider Active Start: September 22, 2024 End: September 22, 2024 Mikayla Ventura LIQUOR DEPARTMENT MANAGER, LIQUOR DEPARTMENT MANAGER-C Attending physician Active Start: September 22, 2024 End: September 22, 2024 Team Status: Inactive Member Role/Relationship Status Dates Dr. Xavi Fortune MD Primary care physician Act jai Start: October 12, 2024 End: October 13, 2024 Dr. Cindy Aguila DO Attending physician Active Start: October 12, 2024 End: October 13, 2024 Dr. Cindy Aguila DO Emergency Depart ent Physician Active Start: October 12, 2024 End: October 13, 2024 Team Status: Inactive Member Role/Relationship Status Dates Dr. Xavi Fortune MD Primary care physician Act jai Start: November 25, 2024 End: November 25, 2024 Dr. Xavi Fortune MD Referring Provider Active Start: November 25, 2024 End: November 25, 2024 Roberta Do PA, PA Attending physician Active Start: November 25, 2024 End: November 25, 2024 Team Status: Inactive Member Role/Relationship Status Dates Dr. Xavi Fortune MD Primary care physician Act jai Start: August 23, 2024 End: August 23, 2024 Dr. Xavi Fortune MD Referring Provider Active Start: August 23, 2024 End: August 23, 2024 Dr. Walt Turner DO Attending physician Active Start: August 23, 2024 End: August 23, 2024 Team Status: Inactive Member Role/Relationship Status Dates Dr. Xavi Fortune MD Primary care physician Act jai Start: August 23, 2024 End: August 23, 2024 Dr. Walt Turner DO Attending physician Active Start: August 23, 2024 End: August 23, 2024 Dr. Walt Turner DO Referring Provider Active Start: August 23, 2024 End: August 23, 2024 Team Status: Inactive Member Role/Relationship Status Dates Dr. Xvai Fortune MD Primary care physician Act jai Start: August 31, 2024 End: August 31, 2024 Dr. Xavi Fortune MD Referring Provider Active Start: August 31, 2024 End: August 31, 2024 Mikayla Ventura LIQUOR DEPARTMENT MANAGER, LIQUOR DEPARTMENT MANAGER-C Attending physician Active Start: August 31, 2024 End: August 31, 2024 Team Status: Inactive Member Role/Relationship Status Dates Dr. Xavi Fortune MD Primary care physician Act jai Start: September 22, 2024 End: September 22, 2024 Dr. Xavi Fortune MD Referring Provider Active Start: September 22, 2024 End: September 22, 2024 Mikayla Ventura LIQUOR DEPARTMENT MANAGER, LIQUOR DEPARTMENT MANAGER-C Attending physician Active Start: September 22, 2024 End: September 22, 2024 Team Status: Inactive Member Role/Relationship Status Dates Dr. Xavi Fortune MD Primary care physician Act jai Start: October 12, 2024 End: October 13, 2024 Dr. Cidny Aguila DO Attending physician Active Start: October 12, 2024 End: October 13, 2024 Dr. Cindy Aguila DO Emergency Departm ent Physician Active Start: October 12, 2024 End: October 13, 2024 Team Status: Inactive Member Role/Relationship Status Dates Dr. Xavi Fortune MD Primary care physician Act jai Start: November 25, 2024 End: November 25, 2024 Dr. Xavi Fortune MD Referring Provider Active Start: November 25, 2024 End: November 25, 2024 Roberta Do PA, PA Attending physician Active Start: November 25, 2024 End: November 25, 2024 Team Status: Inactive Member Role/Relationship Status Dates Dr. Xavi Fortune MD Primary care physician Act jai Start: December 06, 2024 End: December 06, 2024 Dr. Xavi Fortune MD Referring Provider Active Start: December 06, 2024 End: December 06, 2024 Mikayla Ventura LIQUOR DEPARTMENT MANAGER, LIQUOR DEPARTMENT MANAGER-C Attending physician Active Start: December 06, 2024 End: December 06, 2024 Source Comments (unrecognize d section and content) In the event this informatio n is protected by the Federal Confidentiality of Alcohol and Drug Abuse Patient Records regulations: The Federal rules restrict any use of the information to criminally investigate or prosecute any alcohol or drug abuse patient.[facility] CenterIn the event this information is protected by the Federal Confidentiality of Alcohol and Drug Abuse Patient Records regulations: The Federal rules restrict any use of the information to criminally investigate or prosecute any alcohol or drug abuse patient.[facility] CenterIn the event this information is protected by the Federal Confidentiality of Alcohol and Drug Abuse Patient Records regulations: The Federal rules restrict any use of the information to criminally investigate or prosecute any alcohol or drug abuse patient.[facility] CenterIn the event this information is protected by the Federal Confidentiality of Alcohol and Drug Abuse Patient Records regulations: The Federal rules restrict any use of the information to criminally investigate or prosecute any alcohol or drug abuse patient.[facility] CenterIn the event this information is protected by the Federal Confidentiality of Alcohol and Drug Abuse Patient Records regulations: The Federal rules restrict any use of the information to criminally investigate or prosecute any alcohol or drug abuse patient.[facility] CenterIn the event this information is protected by the Federal Confidentiality of Alcohol and Drug Abuse Patient Records regulations: The Federal rules restrict any use of the information to criminally investigate or prosecute any alcohol or drug abuse patient.[facility] CenterIn the event this information is protected by the Federal Confidentiality of Alcohol and Drug Abuse Patient Records regulations: The Federal rules restrict any use of the information to criminally investigate or prosecute any alcohol or drug abuse patient.[facility] CenterIn the event this information is protected by the Federal Confidentiality of Alcohol and Drug Abuse Patient Records regulations: The Federal rules restrict any use of the information to criminally investigate or prosecute any alcohol or drug abuse patient.[facility] CenterIn the event this information is protected by the Federal Confidentiality of Alcohol and Drug Abuse Patient Records regulations: The Federal rules restrict any use of the information to criminally investigate or prosecute any alcohol or drug abuse patient.[facility] CenterIn the event this information is protected by the Federal Confidentiality of Alcohol and Drug Abuse Patient Records regulations: The Federal rules restrict any use of the information to criminally investigate or prosecute any alcohol or drug abuse patient.[facility] CenterIn the event this information is protected by the Federal Confidentiality of Alcohol and Drug Abuse Patient Records regulations: The Federal rules restrict any use of the information to criminally investigate or prosecute any alcohol or drug abuse patient.[facility] CenterIn the event this information is protected by the Federal Confidentiality of Alcohol and Drug Abuse Patient Records regulations: The Federal rules restrict any use of the information to criminally investigate or prosecute any alcohol or drug abuse patient.[facility] CenterIn the event this information is protected by the Federal Confidentiality of Alcohol and Drug Abuse Patient Records regulations: The Federal rules restrict any use of the information to criminally investigate or prosecute any alcohol or drug abuse patient.[facility] CenterIn the event this information is protected by the Federal Confidentiality of Alcohol and Drug Abuse Patient Records regulations: The Federal rules restrict any use of the information to criminally investigate or prosecute any alcohol or drug abuse patient.[facility] CenterIn the event this information is protected by the Federal Confidentiality of Alcohol and Drug Abuse Patient Records regulations: The Federal rules restrict any use of the information to criminally investigate or prosecute any alcohol or drug abuse patient.[facility] CenterIn the event this information is protected by the Federal Confidentiality of Alcohol and Drug Abuse Patient Records regulations: The Federal rules restrict any use of the information to criminally investigate or prosecute any alcohol or drug abuse patient.[facility] CenterIn the event this information is protected by the Federal Confidentiality of Alcohol and Drug Abuse Patient Records regulations: The Federal rules restrict any use of the information to criminally investigate or prosecute any alcohol or drug abuse patient.[facility] CenterIn the event this information is protected by the Federal Confidentiality of Alcohol and Drug Abuse Patient Records regulations: The Federal rules restrict any use of the information to criminally investigate or prosecute any alcohol or drug abuse patient.[facility] CenterIn the event this information is protected by the Federal Confidentiality of Alcohol and Drug Abuse Patient Records regulations: The Federal rules restrict any use of the information to criminally investigate or prosecute any alcohol or drug abuse patient.[facility] CenterIn the event this information is protected by the Federal Confidentiality of Alcohol and Drug Abuse Patient Records regulations: The Federal rules restrict any use of the information to criminally investigate or prosecute any alcohol or drug abuse patient.[facility] CenterIn the event this information is protected by the Federal Confidentiality of Alcohol and Drug Abuse Patient Records regulations: The Federal rules restrict any use of the information to criminally investigate or prosecute any alcohol or drug abuse patient.[facility] CenterIn the event this information is protected by the Federal Confidentiality of Alcohol and Drug Abuse Patient Records regulations: The Federal rules restrict any use of the information to criminally investigate or prosecute any alcohol or drug abuse patient.[facility] CenterIn the event this information is protected by the Federal Confidentiality of Alcohol and Drug Abuse Patient Records regulations: The Federal rules restrict any use of the information to criminally investigate or prosecute any alcohol or drug abuse patient.[facility] CenterIn the event this information is protected by the Federal Confidentiality of Alcohol and Drug Abuse Patient Records regulations: The Federal rules restrict any use of the information to criminally investigate or prosecute any alcohol or drug abuse patient.[facility] CenterIn the event this information is protected by the Federal Confidentiality of Alcohol and Drug Abuse Patient Records regulations: The Federal rules restrict any use of the information to criminally investigate or prosecute any alcohol or drug abuse patient.[facility] CenterIn the event this information is protected by the Federal Confidentiality of Alcohol and Drug Abuse Patient Records regulations: The Federal rules restrict any use of the information to criminally investigate or prosecute any alcohol or drug abuse patient.[facility] CenterIn the event this information is protected by the Federal Confidentiality of Alcohol and Drug Abuse Patient Records regulations: The Federal rules restrict any use of the information to criminally investigate or prosecute any alcohol or drug abuse patient.[facility] CenterIn the event this information is protected by the Federal Confidentiality of Alcohol and Drug Abuse Patient Records regulations: The Federal rules restrict any use of the information to criminally investigate or prosecute any alcohol or drug abuse patient.[facility] CenterIn the event this information is protected by the Federal Confidentiality of Alcohol and Drug Abuse Patient Records regulations: The Federal rules restrict any use of the information to criminally investigate or prosecute any alcohol or drug abuse patient.[facility] CenterIn the event this information is protected by the Federal Confidentiality of Alcohol and Drug Abuse Patient Records regulations: The Federal rules restrict any use of the information to criminally investigate or prosecute any alcohol or drug abuse patient.[facility] CenterIn the event this information is protected by the Federal Confidentiality of Alcohol and Drug Abuse Patient Records regulations: The Federal rules restrict any use of the information to criminally investigate or prosecute any alcohol or drug abuse patient.[facility] Reason for Visit (unrecogniz ed section and content) Reason Comments Home Care MD to follow. Reason Comments Home Care Confirmation Call Reason Comments Home Care OT Eval 04/16 Reason Comments Erroneous encounter-disregard Reason Comments Home Care DELAY IN SERVICE Reason Comments Home Care Reason Onset Date Comments Escalation of Care 05/05/2024 (unrecognized sect ion and content) No Status Records FoundNo Status Records Found INFORMATION SOURCE (unrecogn ized section and content) DATE CREATED AUTHOR 05/11/2024 [facility] DATE CREATED AUTHOR AUTHOR'S ORGANIZ ATION 12/07/2024 [facility] FOR RECORDS PERTAINING TO PATIENTS WHO ARE [...] BE BASED ON THE PRIMARY CLINICAL RECORDS. [employer] provides no warranty or guarantee of the accuracy or completeness of information in this document.
[2025-02-22 00:23] LABS: Hematocrit 41.0 % (40-54); Hemoglobin 14.8 g/dL (13.0-16.5); Immature Granulocytes Count 0.020 X10^3/uL (0.0-0.0); Mean Corp Hgb Conc 36.1 g/dL (32-36); Mean Corpuscular Volume 85.6 fL (80-94); Mean Platelet Vol. 8.8 fl (6.2-12.0); NRBC Flagged by Analyzer 0 % (0-5); Platelet Count 319 K/mm3 (150-450); RBC Distribution Width CV 12.2 % (11.6-14.6); RBC Distribution Width SD 38.2 fl (35.1-43.9); Red Blood Count 4.79 M/mm3 (4.6-6.2); White Blood Count 6.7 K/mm3 (4.4-11.0)
[2025-02-22 00:47] LABS: Magnesium 2.1 mg/dL (1.5-2.2)
[2025-02-22 00:59] LABS: Anion Gap 15 (7-18); BUN 14 mg/dL (4-19); BUN/Creat Ratio 18.7 RATIO (10-20); Calcium,Total 9.0 mg/dL (7.6-11.0); Carbon Dioxide 22.9 mmol/L (20.0-29.0); Chloride 89 mmol/L (96-106); Glucose 92 mg/dL (70-99); Potassium 3.9 mmol/L (3.5-5.1)
[2025-02-22 01:00] VITALS: BP 123/88; PULSE 87; RESP 18; O2SAT 100
--- NOTE | 2025-02-22 01:27 | EDS_ITS ---
HPI History of Present Illness Chief Complaint: Chest Pain Informant: patient Narrative Narrative: Patient is a 64-year-old male with history of COPD as well as proximal supraventricular tachycardia. He states that he stopped taking his metoprolol roughly 1 to 2 months ago as he did not like the way it was making him feel. He states that he is under a great deal of stress recently with the holidays and the fact that he just recently had to bury his father. He states that the was today and after everything was completed he was resting in the chair and then began to feel that his heart was racing and with this he had chest discomfort. He states this felt similar nature to his previous bouts of SVT. He also reports that his previous bouts resolved without any intervention. He denies any history of illicit drug use or excessive stimulant use. He states that he waited for roughly 2 hours but his symptoms were not improving and secondary to this he presents to the hospital for evaluation. [facility] Medical History Acute exacerbation of chronic obstructive pulmonary disease COPD (chronic obstructive pulmonary disease) (~06/07/24) SVT (supraventricular tachycardia) Chronic hyponatremia Colonic mass Tobacco dependence Stercoral colitis Smoking greater than 40 pack years Smoker On home oxygen therapy IBS (irritable bowel syndrome) Hx of colonic polyp Alcohol abuse Hemorrhoids COPD (chronic obstructive pulmonary disease) Hypertension Arthritis Home Medications ?Medication ?Instructions ?Recorded ?Last Taken ?Type epinephrine 0.3 mg/0.3 mL 0.3 mg IM ONCE PRN anaphylax is 07/07/23 Unknown History injection, auto-injector (EpiPen 2-Jesse) Disability Placard #1 ea 01/30/24 Unknown Rx fluticasone 500 mcg-salmeterol 50 1 inh inhalation BID respiratory 02/16/24 02/27/24 Rx mcg/dose blistr powdr for #3 ea inhalation (Advair Diskus) melatonin 3 mg tablet 3 mg PO HS PRN sleep 5 Unknown History tiotropium bromide 2.5 2 inh inhalation DAILY copd #3 ea 07/13/24 Unknown Rx mcg/actuation mist for inhalation (Spiriva Respimat) tramadol 50 mg tablet 50 mg PO QDAY PRN pain 08/31 Unknown History ipratropium 0.5 mg-albuterol 3 mg 3 ml inhalation Q4H PRN PRN SOB 12/13/24 Unknown Rx (2.5 mg base)/3 mL nebulization &/OR WHEEZING #180 mL soln albuterol sulfate 90 mcg/actuation 2 puff inhalation Q 6H PRN 01/25/25 Unknown Rx aerosol inhaler shortness of breath or wheez ing #8.5 grams Allergy/AdvReac Type Severity Reaction Status Date / Time amlodipine (From Norvasc) Allergy Swelling Verified 02/21/25 23:25 lisinopril Allergy Pain in Verified 02/21/25 23:25 joints tamsulosin Allergy Other Verified 02/21/25 23:25 tolterodine (From Detrol) Allergy Other Verified 02/21/25 23:25 dupilumab (From Dupixent Pen) AdvReac Mild Pain in Verified 02/21/25 23:25 joints Family History Mother Arthritis Father Diabetes Heart disease Hypertension Surgical History Hx of vasectomy Hx of colonoscopy Hx of appendectomy Social History household members: spouse and children housing: house current occupational status: employed Smoking Status: Current every day smoker tobacco type: cigarettes second hand exposure: Yes alcohol intake: current alcohol intake frequency: 3 or more drinks per day Alcohol type: beer substance use type: does not use caffeine: Yes what type of physical activity do you participate in: none frequency: does not exercise ROS ROS ED Constitutional Constitutional ED: Denies chills or fever(s) Eyes Eyes: Denies change in vision ENT ENT ED: Denies sore throat Cardiovascular Cardiovascular: Reports chest pain, palpitations and racing heartbeat Respiratory/Chest Respiratory/Chest: Denies cough or dyspnea Gastrointestinal Gastrointestinal: Denies abdominal pain, diarrhea, nausea or vomiting Musculoskeletal Musculoskeletal: Denies myalgias Integumentary Denies rash Neurologic Neurologic: Denies headache(s) Hematologic/Lymphatic Hematologic/Lymphatic: Denies easy bleeding or easy bruising EXAM Physical Exam Const Vital Signs: 02/21/25 23:24 02/21/25 23:24 02/21/25 23:29 Temperature 98 F 98 F Temperature Source Oral Oral Pulse Rate 171 H 171 H Respiratory Rate 22 H 22 H Respiratory Effort Short of Breath Blood Pressure 107/86 H 107/86 H Blood Pressure Mean 93 93 Pulse Ox 97 100 Oxygen Delivery Method Room Air Nasal Cannula Oxygen Flow Rate (L/min) 2 02/21/25 23:38 02/22/25 01:00 02/22/25 01:28 Temperature 98 F Temperature Source Pulse Rate 102 H 87 87 Respiratory Rate 18 18 18 Respiratory Effort Blood Pressure 139/80 H 123/88 H 123/88 H Blood Pressure Mean 99 99 99 Pulse Ox 100 100 100 Oxygen Delivery Method Nasal Cannula Nasal Cannula Oxygen Flow Rate (L/min) 2 2 Positive well nourished and well developed General Appearance ED: well developed; Negative for pallor HEENT HEENT Narrative: Normocephalic atraumatic Eyes PERRL and EOMs intact bilaterally General Eye ED: Negative for scleral icterus Neck supple and no JVD Chest Wall palpation of chest normal Resp normal respiratory effort Resp Narrative: Breath sounds are diminished throughout with faint expiratory wheeze and rhonchi in the bilateral bases consistent with history of COPD but no signs of respiratory distress Cardio regular rhythm Rate: tachycardic and other Other Details: Tachycardic rate with regular rhythm Radial and carotid pulses are equal and symmetric GI normal to inspection, nondistended, normoactive bowel sounds, non-tender, non- distended and no masses GI Narrative: No voluntary guarding or rigidity or pulsatile mass Auscultation: normoactive bowel sounds Palpation: soft Extremity normal to inspection Extremity Narrative: No asymmetric edema no pitting edema negative Homans' sign bilaterally Neuro oriented x3, CN's II-XII intact bilaterally and no sensory deficits noted Sensorium / Orientation: alert Motor Exam: strength 5/5 throughout Psych mental status grossly normal Skin no rashes or lesions noted General Skin Exam: Negative for jaundice or pallor MDM MDM MDM Narrative Medical decision making narrative: Patient arrived to the ER and with a heart rate of approximately 170 bpm. Based on his past medical history and his heart rate an EKG was obtained which did confirm supraventricular tachycardia. He was then given 6 mg of IV adenosine which then caused spontaneous cardioversion and patient reverted to sinus tachycardia at approximately 110 bpm. In order to assess for potential reversible cause of his SVT such as acute blood loss anemia acute kidney injury or electrolyte abnormality or thyroid dysfunction basic labs were obtained. Labs revealed a sodium of 127 but chart review reveals this is chronic in nature and otherwise there are no clinically significant findings. With IV hydration and time the patient's heart rate reduced to approximately 85 bpm and remained in normal sinus rhythm. On reevaluation he reports feeling much better and his heart rate is now normal sinus rhythm and vitals are stable and he does have a history of SVT I do not feel there is a need for admission especially as there is no obvious reversible cause. Therefore the patient is otherwise safe for discharge and can follow-up with his family doctor and/or steam cleaner to discuss further treatment options History & Record Review Discussion w/independent historian: EMS personnel and Patient Lab Data Attestation: I reviewed the patient's lab results. Labs: Laboratory Results - last 24 hr 02/21/25 23:30 WBC 6.7 RBC 4.79 Hgb 14.8 Hct 41.0 MCV 85.6 MCH 30.9 MCHC 36.1 H RDW Std Deviation 38.2 RDW Coeff of Pam 12.2 Plt Count 319 MPV 8.8 Immature Gran % (Auto) 0.300 Neut % (Auto) 49.4 Lymph % (Auto) 30.6 Whitman % (Auto) 15.9 H Eos % (Auto) 2.8 Baso % (Auto) 1.0 Absolute Neuts (auto) 3.3 Absolute Lymphs (auto) 2.05 Nucleated RBC % 0 Sodium 127 L Potassium 3.9 Chloride 89 L Carbon Dioxide 22.9 Anion Gap 15 BUN 14 Creatinine 0.77 Est GFR (MDRD) Non-Af 101 BUN/Creatinine Ratio 18.7 Glucose 92 Calcium 9.0 Magnesium 2.1 TSH 1.820 Discharge Plan Triage Chief Complaint: Chest Pain ED Provider: Andres Juarez Dx/Rx/DC Orders Clinical Impression: Supraventricular tachycardia, Chronic hyponatremia, COPD (chronic obstructive pulmonary disease), Tobacco abuse Instructions: Supraventricular Tachycardia, Supraventricular Tachycardia Tx Prescriptions: No Action (DME) Disability Placard See Rx Instructions .ROUTE .MEDSUPPLY Qty: 1 0RF Rx Instructions: expires 01/29/2029 epinephrine [EpiPen 2-Jesse] 0.3 mg/0.3 mL auto-injector 0.3 mg IM ONCE PRN (Reason: anaphylaxis) Rx Instructions: as a single dose; may repeat once melatonin 3 mg tablet 3 mg PO HS PRN (Reason: sleep) tramadol 50 mg tablet 50 mg PO QDAY PRN (Reason: pain) fluticasone propion-salmeterol [Advair Diskus] 500-50 mcg/dose blister with device 1 inh inhalation BID Qty: 3 3RF Spiriva Respimat 2.5 mcg/actuation mist 2 inh inhalation DAILY Qty: 3 3RF Rx Instructions: administer at approximately the same time(s) each day ipratropium-albuterol 0.5 mg-3 mg(2.5 mg base)/3 mL solution for nebulization 3 ml inhalation Q4H PRN PRN (Reason: SOB &/OR WHEEZING) Qty: 180 6RF albuterol sulfate 90 mcg/actuation HFA aerosol inhaler 2 puff inhalation Q6H PRN (Reason: shortness of breath or wheezing) Qty: 8.5 6RF Primary Care Provider: Alfonso Fortune Referrals: Alfonso Fortune MD [Primary Care Provider, Family Practice] Activity Restrictions/Additional Instructions: Please follow-up with your family doctor and/or steam cleaner to discuss other treatment options regarding your SVT. Continue all of your home medications as directed by your doctor and return to the ER should you have any further concerns Print Language: Luxembourgish Disposition Disposition: Home, Self Care
[2025-02-22 01:28] VITALS: BP 123/88; PULSE 87; RESP 18; TEMP 36.6; O2SAT 100
[2025-02-22 02:00] VITALS: BP 118/82; PULSE 89; RESP 18; O2SAT 99
== END 2025-02-22 02:45 | disposition home or self-care (01) ==
PROVIDERS: Emergency Provider Emergency Medicine; PCP Family Medicine; Visit Provider Emergency Medicine
DX: I47.10 Supraventricular tachycardia, unspecified (principal); J44.9 Chronic obstructive pulmonary disease, unspecified; E87.1 Hypo-osmolality and hyponatremia; I10 Essential (primary) hypertension; Z79.899 Other long term (current) drug therapy; F17.210 Nicotine dependence, cigarettes, uncomplicated
CPT/HCPCS: 80048; 83735; 84443; 85025; 93005; 96361; 96374; 96375; 99285; A4216; J0153; J2405